=== PATIENT | female | born 1970 | race Caucasian/White ===

== ENCOUNTER 2017-08-02 16:35 | Emergency (ER) | payer MEDICAID, SELFPAY | END 2017-08-02 18:28 | disposition home or self-care (01) | PROVIDERS: Emergency Provider Emergency Medicine; Family Provider Nurse Practitioner Family; Visit Provider Emergency Medicine | DX: J02.9 Acute pharyngitis, unspecified (principal); B34.8 Other viral infections of unspecified site; E11.9 Type 2 diabetes mellitus without complications; Z79.4 Long term (current) use of insulin; I25.10 Atherosclerotic heart disease of native coronary artery without angina pectoris; F17.210 Nicotine dependence, cigarettes, uncomplicated | CPT/HCPCS: 71020; 87070; 87275; 87276; 87430 ==

== ENCOUNTER 2018-05-11 10:58 | Observation (INO) ==
[2018-05-11 11:36] LABS: Basophils % 0.1 % (0.1-2.0); Eosinophils # 0.1 K/mm3 (0.0-0.4); Eosinophils % 0.4 % (0.1-12.0); Hematocrit 40.9 % (37.0-47.0); Hemoglobin 12.9 g/dL (12.2-16.2); Lymphocytes # 1.7 K/mm3 (0.7-4.5); Lymphocytes % 11.8 K/mm3 (10-50); Mean Corpuscular HGB Conc 31.6 g/dL (31.8-35.4); Mean Corpuscular Hemoglobin 28.8 pg (27.0-31.2); Mean Corpuscular Volume 91.1 fl (81-99); Mean Platelet Volume 8.4 fl (7.4-10.4); Monocytes # 0.5 K/mm3 (0.1-1.0); Monocytes % 3.1 % (1.7-9.3); Neutrophils # 12.3 K/mm3 (1.8-7.8); Neutrophils % 84.5 % (37.0-80.0); Platelet Count 324 K/mm3 (142-424); Red Blood Count 4.49 M/mm3 (4.20-5.40); Red Cell Distribution Width 13.5 % (11.5-17.5); White Blood Count 14.5 K/mm3 (4.8-10.8)
[2018-05-11 11:48] LABS: Albumin/Globulin Ratio 0.7 (1.1-1.8); Anion Gap 13.6 mEq/L (5-15); Bilirubin,Total 0.7 mg/dL (0.2-1.0); Globulin 4.2 gm/dl (1.3-3.2); Potassium 3.6 mmoL/L (3.5-5.1); Total Protein,Serum 7.2 gm/dL (6.4-8.2)
--- NOTE | 2018-05-11 11:54 | Emergency Department Note ---
ED Disposition Clinical Impression: Diabetic foot infection Foot ulcer Qualifiers: Laterality: left Non-pressure ulcer stage: with fat layer exposed Qualified Code(s): L97.522 - Non-pressure chronic ulcer of other part of left foot with fat layer exposed Disposition: Admitted as Observation Condition on Discharge: Fair - Critical Care Critical Care Time: No Attestation: On , the high probability of a clinically significant, sudden or life threatening deterioration of the following system(s) required my full and direct attention, intervention and personal management. The time I documented below is in addition to time spent performing reported procedures but includes the following listed in this critical care notation. Medical Decision Making - Mauri Inquiry Pt receiving controlled substance: No Vital Signs: 05/11/18 11:08 05/11/18 11:34 05/11/18 13:58 Temperature 98.2 F 98.2 F Temperature Source Oral Oral Pulse Rate [Right Brachial] 87 87 84 Respiratory Rate 17 17 Blood Pressure [Right Arm] 138/76 138/76 130/77 Blood Pressure Mean [Right Arm] 96 96 94 Blood Pressure Source [Right Arm] Automatic Cuff Automatic Cuff Automatic Cuff Blood Pressure Position [Right Arm] Sitting Sitting Sitting 02 Sat by Pulse Oximetry 99 99 99 Oxygen Delivery Method Room Air Room Air Room Air 05/11/18 15:31 05/11/18 16:00 Temperature 99.5 F Temperature Source Oral Pulse Rate [Right Brachial] 80 100 H Respiratory Rate 18 Blood Pressure [Right Arm] 132/71 116/52 L Blood Pressure Mean [Right Arm] 91 73 Blood Pressure Source [Right Arm] Automatic Cuff Automatic Cuff Blood Pressure Position [Right Arm] Sitting 02 Sat by Pulse Oximetry 99 99 Oxygen Delivery Method Room Air Room Air - Lab Data Lab Results 05/11/18 11:14: WBC 14.5 H, RBC 4.49, Hgb 12.9, Hct 40.9, MCV 91.1, MCH 28.8, MCHC 31.6 L, RDW 13.5, Plt Count 324, MPV 8.4, Neut % (Auto) 84.5 H, Lymph % (Auto) 11.8, [place] % (Auto) 3.1, Eos % (Auto) 0.4, Baso % (Auto) 0.1, Neut # (Auto) 12.3 H, Lymph # (Auto) 1.7, [place] # (Auto) 0.5, Eos # (Auto) 0.1, Baso # (Auto) 0.0 05/11/18 11:14: Sodium 137, Potassium 3.6, Chloride 98, Carbon Dioxide 29, Anion Gap 13.6, BUN 9, Creatinine 1.49 H, Estimated Creat Clear 74, Estimated GFR 38 L , Est GFR ( Amer) 45 L, Glucose 310 H, Calcium 9.0, Total Bilirubin 0.7, AST 8 L, ALT 15, Alkaline Phosphatase 155 H, Total Protein 7.2, Albumin 3.0 L, Globulin 4.2 H, Albumin/Globulin Ratio 0.7 L 05/11/18 11:14: Lactate 3.5 H Result diagrams: 05/11/18 11:14 05/11/18 11:14 Orders (Tests/Meds): ED MEDICATIONS Generic Name Dose Route Start Last Admin Trade Name Freq PRN Reason Stop Dose Admin Acetaminophen 650 mg 05/11/18 15:32 05/11/18 17:57 Acetaminophen 325mg Tab PO 06/10/18 15:31 650 mg Q4HP PRN Administration As Needed for Fever or Pain Piperacillin Sod/Tazobactam 50 mls @ 100 mls/hr 05/11/18 17:00 05/11/18 17:59 Sod 3.375 gm/ Sodium Chloride IV 05/25/18 16:59 100 mls/hr Q6H JASEN Administration Protocol Vancomycin HCl 2,000 mg/ 250 mls @ 125 mls/hr 05/12/18 13:00 Sodium Chloride IV 05/25/18 12:59 Q24H JASEN Insulin Human Lispro 0 unit 05/11/18 16:30 05/11/18 17:33 Humalog 100 Units/Ml 3ml Vial (Ssi) SQ 06/10/18 16:29 10 unit ACHS JASEN Administration Protocol Discontinued Medications Generic Name Dose Route Start Last Admin Trade Name Freq PRN Reason Stop Dose Admin Piperacillin Sod/Tazobactam 100 mls @ 200 mls/hr 05/11/18 12:30 05/11/18 12:53 Sod 3.375 gm/ Sodium Chloride IV 05/25/18 12:29 200 mls/hr Q6H JASEN Administration Protocol Vancomycin HCl 2,000 mg/ 250 mls @ 125 mls/hr 05/11/18 13:00 05/11/18 13:27 Sodium Chloride IV 05/25/18 12:59 125 mls/hr Q24H JASEN Administration Miscellaneous 1 each 05/11/18 12:26 05/11/18 19:55 Vancomycin Consult Request NOTAPPLIC 05/11/18 12:27 Not Given CONSULT PHARMACY ONE Miscellaneous 1 each 05/11/18 15:32 05/11/18 19:55 Vancomycin Consult Request NOTAPPLIC 05/11/18 15:33 Not Given CONSULT PHARMACY ONE ORDERS Category Date Time Status Blood Culture Stat Micro 05/11/18 11:14 Received Wound Culture and Gram Stain Stat Micro 05/11/18 12:00 Ordered - Radiology Data #1 Image(s): Foot/Toes Image Reviewed: Yes I reviewed the patient's radiology image no signs of osteomyelitis. General Adult HPI - General Chief complaint: Skin/Abscess/Foreign Body Stated complaint: left foot pain vomiting fever Time Seen by Provider: 05/11/18 11:53 Mode of Arrival: Ambulatory Limitations: No Limitations Description of Symptoms (Recalled from ER Triage Doc. by RN): DIABETIC ULCER THAT SHE FEELS IS INFECTED. - History of Present Illness HPI narrative: Complains of infected diabetic foot ulcer. She has an ulcer on the bottom of her left foot since March. She saw her primary care provider, Dr. Stern in [place], who referred her to a surgeon. The surgeon and return for referred her to a foot doctor. However, she says all of the foot doctors they referred her to do not take her insurance, so she has had no follow-up. She began having increasing pain in the area on Thursday 3 days ago. She went to [facility] emergency department. She says her blood sugar was over 600. She says she received IV fluids and 10 units of insulin and her blood sugar went down to 366. She was not given antibiotics. She says a culture was not performed on her foot. She says she has never had any antibiotics. On Thursday she began running a fever and fevers have been 101-102. She says when her fever goes up it makes her vomit. Blood sugar yesterday was 400. She did not check her blood sugar today. She also has a scabbed linear crease on the dorsum of her left foot whic h she says was from a bandage that she had on last that became tight from swelling. - Related Data Home Medications Medication Instructions Recorded Confirmed Atorvastatin Calcium [Lipitor 20mg 20 mg PO DAILY 05/11/18 05/11/18 Tablet] Carvedilol [Carvedilol 3.125mg Tab] 0.5 mg PO BID 05/11/18 05/11/18 Cetirizine HCl 1 tab PO DAILY 05/11/18 05/11/18 Clopidogrel Bisulfate [Plavix 75mg 75 mg PO DAILY 05/11/18 05/11/18 Tab] Duloxetine HCl 60 mg PO DAILY 05/11/18 05/11/18 Insulin Glargine,Hum.rec.anlog 10 unit SQ TID 05/11/18 05/11/18 [Basaglar Kwikpen U-100] Insulin Lispro [HumaLOG 100 10 unit SQ TID 05/11/18 05/11/18 units/mL 3mL vial (SSI)] Losartan Potassium 12.5 mg PO BID 05/11/18 05/11/18 Omeprazole [Omeprazole 40mg 40 mg PO DAILY 05/11/18 05/11/18 Capsule] Propranolol HCl [Inderal 20mg 20 mg PO BID 05/11/18 05/11/18 tablet] Topiramate 1 tab PO DAILY 05/11/18 05/11/18 Venlafaxine HCl [Effexor XR 75mg 75 mg PO DAILY 05/11/18 05/11/18 capsule] Allergies Allergy/AdvReac Type Severity Reaction Status Date / Time Sulfa (Sulfonamide Allergy Unknown Verified 05/11/18 11:36 Antibiotics) [SULFA (SULFONAMIDE ANTIBIOTICS)] [facility] History I have reviewed the patient's past medical history: Yes - Social History Educational Level: Completed High School Smoking Status: Current every day smoker Tobacco Type: cigarettes Alcohol Intake: never - Psychiatric History Expresses thoughts of harming self/others: None Suicide Plan Description: No Plan ROS Obtained: Yes All systems reviewed & no additional complaints - Constitutional Constitutional: Reports fever(s) - Gastrointestinal Gastrointestingal: Reports: vomiting - Musculoskeletal Musculoskeletal: Reports as per HPI Physical Exam - General General appearance: alert, in no apparent distress - Head Head exam: atraumatic, normocephalic - Eye Eye exam: Present: normal appearance - ENT ENT exam: Present: mucous membranes moist - Neck Neck exam: Present: normal inspection, full ROM - Chest Chest inspection: Present: normal inspection - Respiratory Respiratory exam: Absent: respiratory distress - Cardiovascular Cardiovascular exam: Present: regular rate - Expanded Lower Extremity Exam Left Comment: 3 x 2 cm foot ulcer on the plantar aspect of her left foot over the area of the fourth metatarsal head. Extends down into subcutaneous tissue. No odor or drainage noted. There is erythema of the dorsum of the foot with edema, warmth, tenderness. There is a linear scab on the dorsal/lateral surface of the foot consistent with indentation from bandage. - Neurological Exam Neurological exam: Present: alert, oriented X3. Absent: motor sensory deficit - Psychiatric Psychiatric exam: Present: normal affect, normal mood
--- NOTE | 2018-05-11 16:06 | Pharmacy Consult Notes ---
- Pharmacy Consult Date: 05/11/18 Time: 16:03 Referring provider: DR. LEW Reason for Consult:: VANCOMYCIN DOSING Allergies and ADEs:: Allergies Allergy/AdvReac Type Severity Reaction Status Date / Time Sulfa (Sulfonamide Allergy Unknown Verified 05/11/18 11:36 Antibiotics) [SULFA (SULFONAMIDE ANTIBIOTICS)] Home Medications:: Home Medications Medication Instructions Recorded Confirmed Type Atorvastatin Calcium [Lipitor 20mg 20 mg PO DAILY 05/11/18 05/11/18 History Tablet] Carvedilol [Carvedilol 3.125mg Tab] 0.5 mg PO BID 05/11/18 05/11/18 History Cetirizine HCl 1 tab PO DAILY 05/11/18 05/11/18 History Clopidogrel Bisulfate [Plavix 75mg 75 mg PO DAILY 05/11/18 05/11/18 History Tab] Duloxetine HCl 60 mg PO DAILY 05/11/18 05/11/18 History Insulin Glargine,Hum.rec.anlog 10 unit SQ TID 05/11/18 05/11/18 History [Basaglar Kwikpen U-100] Insulin Lispro [HumaLOG 100 10 unit SQ TID 05/11/18 05/11/18 History units/mL 3mL vial (SSI)] Losartan Potassium 12.5 mg PO BID 05/11/18 05/11/18 History Omeprazole [Omeprazole 40mg 40 mg PO DAILY 05/11/18 05/11/18 History Capsule] Propranolol HCl [Inderal 20mg 20 mg PO BID 05/11/18 05/11/18 History tablet] Topiramate 1 tab PO DAILY 05/11/18 05/11/18 History Venlafaxine HCl [Effexor XR 75mg 75 mg PO DAILY 05/11/18 05/11/18 History capsule] Height: 1.68 m Weight: 100.244 kg Laboratory Results:: Laboratory Results - last 24 hr 05/11/18 11:14: WBC 14.5 H, RBC 4.49, Hgb 12.9, Hct 40.9, MCV 91.1, MCH 28.8, MCHC 31.6 L, RDW 13.5, Plt Count 324, MPV 8.4, Neut % (Auto) 84.5 H, Lymph % (Auto) 11.8, [place] % (Auto) 3.1, Eos % (Auto) 0.4, Baso % (Auto) 0.1, Neut # (Auto) 12.3 H, Lymph # (Auto) 1.7, [place] # (Auto) 0.5, Eos # (Auto) 0.1, Baso # (Auto) 0.0 05/11/18 11:14: Sodium 137, Potassium 3.6, Chloride 98, Carbon Dioxide 29, Anion Gap 13.6, BUN 9, Creatinine 1.49 H, Estimated Creat Clear 74, Estimated GFR 38 L , Est GFR ( Amer) 45 L, Glucose 310 H, Calcium 9.0, Total Bilirubin 0.7, AST 8 L, ALT 15, Alkaline Phosphatase 155 H, Total Protein 7.2, Albumin 3.0 L, Globulin 4.2 H, Albumin/Globulin Ratio 0.7 L 05/11/18 11:14: Lactate 3.5 H Assessment and Plan - Assessment and plan all Dx Assessment and Plan for all problems:: BASED ON PATIENT'S FACTORS, RECOMMEND STARTING WITH VANCOMYCIN 2 GM Q24H AT THIS TIME. PHARMACY WILL FOLLOW DAILY AND ADJUST APPROPRIATE. FRANCY JUÁREZ, PHARMD
--- NOTE | 2018-05-12 12:41 | History & Physical Report ---
*Admission Date: 05/11/18 *Chief complaint: infected foot *History of present illness: this wf who is known diabetic and has progressive swelling and reddness to lt foot - pt was seen in the ed - mplains of infected diabetic foot ulcer. She has an ulcer on the bottom of her left foot since March. She saw her primary care provider, Dr. Stern in [place], who referred her to a surgeon. The surgeon and return for referred her to a foot doctor. However, she says all of the foot doctors they referred her to do not take her insurance, so she has had no follow-up. She began having increasing pain in the area on Thursday 3 days ago. She went to [facility] emergency department. She says her blood sugar was over 600. She says she received IV fluids and 10 units of insulin and her blood sugar went down to 366. She was not given antibiotics. She says a culture was not performed on her foot. She says she has never had any antibiotics. On Thursday she began running a fever and fevers have been 101-102. She says when her fever goes up it makes her vomit. Blood sugar yesterday was 400. She did not check her blood sugar today. She also has a scabbed linear crease on the dorsum of her left foot which she says was from a bandage that she had on last that became tight from swelling. pt has been seen by pcp and another ed and was admitted for iv abx and treatment as op treatment had failed [facility] History I have reviewed the patient's past medical history: Yes Medical History: Reports:: Diabetes Mellitus Type 2, Hypertension Denies:: Cancer, Diabetes Mellitus Type 1, Internal Pacemaker, MRSA Other Surgeries: Yes: Cardiac Catheterization. No: Pacemaker Amputation: Yes - *Social History Educational Level: Completed High School Smoking Status: Current every day smoker Tobacco Type: cigarettes Alcohol Intake: never Occupational Status: disabled Housing: house Household Members: friend(s) - Psychiatric History Expresses thoughts of harming self/others: None Suicide Plan Description: No Plan Review of Systems - Review of Systems Review of systems:: pertinent systems reviewed and negative unless documented below - Constitutional Denies fever(s) - Eyes Denies change in vision - ENT Denies sore throat - *Cardiovascular Denies chest pain at rest - *Respiratory Denies cough - *Gastrointestinal Denies abdominal pain - *Genitourinary Denies blood in urine - *Musculoskeletal Reports joint pain, Reports limited joint movement - Integumentary/Breasts Reports other (reddness and infection lt foot ) - *Neurologic Denies seizure-like activity Meds Home Medications Medication Instructions Recorded Confirmed Type Carvedilol [Carvedilol 3.125mg Tab] 1.5625 mg PO BID 05/11/18 05/12/18 History Cetirizine HCl 10 mg PO DAILY 05/11/18 05/12/18 History Clopidogrel Bisulfate [Plavix 75mg 75 mg PO DAILY 05/11/18 05/11/18 History Tab] Duloxetine HCl 60 mg PO DAILY 05/11/18 05/11/18 History Insulin Glargine,Hum.rec.anlog 10 unit SQ TID 05/11/18 05/11/18 History [Basaglar Kwikpen U-100] Insulin Lispro [HumaLOG 100 10 unit SQ TID 05/11/18 05/11/18 History units/mL 3mL vial (SSI)] Losartan Potassium 37.5 mg PO DAILY 05/11/18 05/12/18 History Omeprazole [Omeprazole 40mg 40 mg PO DAILY 05/11/18 05/11/18 History Capsule] Topiramate 100 tab PO DAILY 05/11/18 05/12/18 History Venlafaxine HCl [Effexor XR 75mg 75 mg PO DAILY 05/11/18 05/11/18 History capsule] Atorvastatin Calcium [Atorvastatin 40 mg PO DAILY 05/12/18 05/12/18 History 40mg Tab] Isosorbide Mononitrate [Imdur 30mg 30 mg PO DAILY 05/12/18 05/12/18 History ER tablet] Propranolol HCl 80 mg PO BID 05/12/18 05/12/18 History SUMAtriptan succinate [Imitrex] 50 mg PO DIRECTED PRN 05/12/18 05/12/18 Histo ry Allergies Allergy/AdvReac Type Severity Reaction Status Date / Time Sulfa (Sulfonamide Allergy Unknown Verified 05/11/18 11:36 Antibiotics) [SULFA (SULFONAMIDE ANTIBIOTICS)] Exam Vital signs and Labs for Last 24 Hours: Temp Pulse Resp BP Pulse Ox 97.9 F 95 H 18 129/70 99 05/12/18 07:27 05/12/18 07:27 05/12/18 07:27 05/12/18 07:27 05/12/18 08:25 Laboratory Results - last 24 hr 05/11/18 15:45: Lactate 2.3 H 05/11/18 17:13: POC Glucose 312 H* 05/11/18 18:01: Lactate 3.3 H 05/11/18 19:59: POC Glucose 265 H 05/12/18 06:19: POC Glucose 430 H* 05/12/18 11:05: POC Glucose 419 H* I & O for Last 24 hours: Intake & Output 05/10/18 05/11/18 05/12/18 05/13/18 11:59 11:59 11:59 11:59 Intake Total 1290 / 1290 Balance 1290 / 1290 Weight 221 lb 221 lb Microbiology Reports for the Last 24 Hours: Microbiology 05/11/18 12:00 Foot,Left - Wound Gram Stain - Final 05/11/18 12:00 Foot,Left - Wound Wound Culture - Preliminary Gram Negative Rods Gram Positive Cocci - Constitutional no acute distress, obese - *Routine HEENT Exam Head: Present: normocephalic Eye: Present: EOMI, PERRL ENT: Present: mucous membranes dry - *Routine Neck Exam Present: supple - *Routine Respiratory Exam Present: CTA bilaterally - *Routine Cardiovascular Exam Present: RRR, murmur, S4 - *Routine Abdominal Exam Present: soft - *Routine Extremities Exam Absent: calf tenderness Comments: lt foot with chronic ulcer on plantar area and has reddness and swelling dorsum lt foot with sl odor and gangerous changes lt 4 th toe with dec sensation but gross vascular ok - *Routine Skin Exam Comments: changes lt foot as noted - *Routine Neurological Exam Present: alert, oriented X3, CN II-XII intact, sensory deficit - Routine Psychiatric Exam Present: normal affect
[2018-05-12 13:39] LABS: Basophils % 0.1 % (0.1-2.0); Eosinophils # 0.1 K/mm3 (0.0-0.4); Eosinophils % 0.7 % (0.1-12.0); Hematocrit 37.9 % (37.0-47.0); Hemoglobin 11.8 g/dL (12.2-16.2); Lymphocytes # 1.1 K/mm3 (0.7-4.5); Lymphocytes % 11.9 K/mm3 (10-50); Mean Corpuscular Volume 90.4 fl (81-99); Monocytes # 0.4 K/mm3 (0.1-1.0); Monocytes % 4.4 % (1.7-9.3); Neutrophils # 7.8 K/mm3 (1.8-7.8); Neutrophils % 82.9 % (37.0-80.0); Platelet Count 296 K/mm3 (142-424); Red Blood Count 4.19 M/mm3 (4.20-5.40); Red Cell Distribution Width 13.3 % (11.5-17.5); White Blood Count 9.4 K/mm3 (4.8-10.8)
[2018-05-12 13:44] LABS: Anion Gap 9.8 mEq/L (5-15); Calcium 8.1 mg/dL (8.5-10.1); Potassium 3.8 mmoL/L (3.5-5.1)
--- NOTE | 2018-05-12 13:45 | Pharmacy Consult Notes ---
[facility] Pharmacy VTE Monitoring - Patient Demographics Admission date: 05/11/18 Report Date: 05/12/18 Time: 13:45 Allergies/Adverse Reactions: Patient Allergies Sulfa (Sulfonamide Antibiotics) [SULFA (SULFONAMIDE ANTIBIOTICS)] Allergy (Unknown, Verified 05/11/18 11:36) Height: 1.68 m Weight: 100.244 kg Patient Problems: Current Active Problems Foot ulcer (Acute) Diabetic foot infection (Acute) - VTE Risk Labs: VTE Related Lab Results Hgb 11.8 g/dL (12.2-16.2) L 05/12/18 13:17 Hct 37.9 % (37.0-47.0) 05/12/18 13:17 Plt Count 296 K/mm3 (142-424) 05/12/18 13:17 BUN 9 mg/dL (7-18) 05/11/18 11:14 Creatinine 1.49 mg/dL (0.55-1.02) H 05/11/18 11:14 Estimated Creat Clear 74 mL/min (0-300) 05/11/18 11:14 Was VTE Risk Assessment Performed: Yes VTE Score: 2 VTE Risk Level: Very Low Risk - Prophylaxis VTE Prophylaxis Ordered?: Yes Types of VTE Prophylaxis: TEDS Knee High Location of Applied Device: Bilateral Lower Extremeties - VTE Diagnosis Confirmed Treatment or plan recommended: Continue Current Treatment
[2018-05-12 13:55] LABS: C-Reactive Protein 30.6 mg/L (0.0-0.9)
[2018-05-12 14:21] LABS: Erythrocyte Sedimentation Rate 113 mm/hr (0-20)
--- NOTE | 2018-05-12 17:55 | Consult Report ---
*Admission Date: 05/11/18 *Chief complaint: Diabetic foot ulcer, left foot; gangrene fourth toe, left foot [facility] History Medical History: Reports:: Diabetes Mellitus Type 2, Hypertension Denies:: Cancer, Diabetes Mellitus Type 1, Internal Pacemaker, MRSA Other Surgeries: Yes: Cardiac Catheterization. No: Pacemaker Amputation: Yes - *Social History Educational Level: Completed High School Smoking Status: Current every day smoker Tobacco Type: cigarettes Alcohol Intake: never Occupational Status: disabled Housing: house Household Members: friend(s) - Psychiatric History Expresses thoughts of harming self/others: None Suicide Plan Description: No Plan Meds Home Medications Medication Instructions Recorded Confirmed Type Carvedilol [Carvedilol 3.125mg Tab] 1.5625 mg PO BID 05/11/18 05/12/18 History Cetirizine HCl 10 mg PO DAILY 05/11/18 05/12/18 History Clopidogrel Bisulfate [Plavix 75mg 75 mg PO DAILY 05/11/18 05/11/18 History Tab] Duloxetine HCl 60 mg PO DAILY 05/11/18 05/11/18 History Insulin Glargine,Hum.rec.anlog 10 unit SQ TID 05/11/18 05/11/18 History [Basaglar Kwikpen U-100] Insulin Lispro [HumaLOG 100 10 unit SQ TID 05/11/18 05/11/18 History units/mL 3mL vial (SSI)] Losartan Potassium 37.5 mg PO DAILY 05/11/18 05/12/18 History Omeprazole [Omeprazole 40mg 40 mg PO DAILY 05/11/18 05/11/18 History Capsule] Topiramate 100 tab PO DAILY 05/11/18 05/12/18 History Venlafaxine HCl [Effexor XR 75mg 75 mg PO DAILY 05/11/18 05/11/18 History capsule] Atorvastatin Calcium [Atorvastatin 40 mg PO DAILY 05/12/18 05/12/18 History 40mg Tab] Isosorbide Mononitrate [Imdur 30mg 30 mg PO DAILY 05/12/18 05/12/18 History ER tablet] Propranolol HCl 80 mg PO BID 05/12/18 05/12/18 History SUMAtriptan succinate [Imitrex] 50 mg PO DIRECTED PRN 05/12/18 05/12/18 Hi story Allergies Allergy/AdvReac Type Severity Reaction Status Date / Time Sulfa (Sulfonamide Allergy Unknown Verified 05/11/18 11:36 Antibiotics) [SULFA (SULFONAMIDE ANTIBIOTICS)] Exam Vital signs and Labs for Last 24 Hours: Temp Pulse Resp BP Pulse Ox 99.8 F H 101 H 18 134/61 97 05/12/18 15:19 05/12/18 15:19 05/12/18 15:19 05/12/18 15:19 05/12/18 15:19 Laboratory Results - last 24 hr 05/11/18 18:01: Lactate 3.3 H 05/11/18 19:59: POC Glucose 265 H 05/12/18 06:19: POC Glucose 430 H* 05/12/18 11:05: POC Glucose 419 H* 05/12/18 13:17: WBC 9.4 D, RBC 4.19 L, Hgb 11.8 L, Hct 37.9, MCV 90.4, MCH 28.0 , MCHC 31.0 L, RDW 13.3, Plt Count 296, MPV 8.0, Neut % (Auto) 82.9 H, Lymph % (Auto) 11.9, [place] % (Auto) 4.4, Eos % (Auto) 0.7, Baso % (Auto) 0.1, Neut # (Auto) 7.8, Lymph # (Auto) 1.1, [place] # (Auto) 0.4, Eos # (Auto) 0.1, Baso # (Auto) 0.0, ESR 113 H 05/12/18 13:17: Sodium 133 L, Potassium 3.8, Chloride 98, Carbon Dioxide 29, Anion Gap 9.8, BUN 16 D, Creatinine 1.44 H, Estimated Creat Clear 76, Estimated GFR 39 L, Est GFR ( Amer) 47 L, Glucose 415 H*, Calcium 8.1 L, C-Reactive Protein 30.6 H I & O for Last 24 hours: Intake & Output 05/10/18 05/11/18 05/12/18 05/13/18 11:59 11:59 11:59 11:59 Intake Total 1290 / 1290 360 / 360 Balance 1290 / 1290 360 / 360 Weight 221 lb 221 lb 221 lb 0.003 oz Microbiology Reports for the Last 24 Hours: Microbiology 05/11/18 12:00 Foot,Left - Wound Gram Stain - Final 05/11/18 12:00 Foot,Left - Wound Wound Culture - Preliminary Gram Negative Rods Gram Positive Cocci Narrative: T-max 100.5 F over the last 24 hours Results - Labs Result Diagrams: 05/12/18 13:17 05/12/18 13:17 Labs: Abnormal lab results 05/11/18 05/11/18 05/12/18 Range/Units 18:01 19:59 06:19 RBC (4.20-5.40) M/mm3 Hgb (12.2-16.2) g/dL MCHC (31.8-35.4) g/dL Neut % (Auto) (37.0-80.0) % ESR (0-20) mm/hr Sodium (136-145) mmol/L Creatinine (0.55-1.02) mg/dL Estimated GFR (>60) ml/min Est GFR ( Amer) (>60) ML/MIN Glucose (74-106) mg/dL POC Glucose 265 H 430 H* (70-110) Lactate 3.3 H (0.4-2.0) Calcium (8.5-10.1) mg/dL C-Reactive Protein (0.0-0.9) mg/L 05/12/18 05/12/18 05/12/18 Range/Units 11:05 13:17 13:17 RBC 4.19 L (4.20-5.40) M/mm3 Hgb 11.8 L (12.2-16.2) g/dL MCHC 31.0 L (31.8-35.4) g/dL Neut % (Auto) 82.9 H (37.0-80.0) % ESR 113 H (0-20) mm/hr Sodium 133 L (136-145) mmol/L Creatinine 1.44 H (0.55-1.02) mg/dL Estimated GFR 39 L (>60) ml/min Est GFR ( Amer) 47 L (>60) ML/MIN Glucose 415 H* (74-106) mg/dL POC Glucose 419 H* (70-110) Lactate (0.4-2.0) Calcium 8.1 L (8.5-10.1) mg/dL C-Reactive Protein 30.6 H (0.0-0.9) mg/L H & H 05/11/18 05/12/18 Range/Units 11:14 13:17 Hgb 12.9 11.8 L (12.2-16.2) g/dL Hct 40.9 37.9 (37.0-47.0) % All other labs normal. Assessment and Plan (1) Diabetic foot infection Current visit: Yes Status: Acute Category: Medical Code(s): E11.628 - Type 2 diabetes mellitus with other skin complications; L08.9 - Local infection of the skin and subcutaneous tissue, unspecified (2) Foot ulcer Current visit: Yes Status: Acute Qualifiers: Laterality: left Non-pressure ulcer stage: with fat layer exposed Qualified Code(s): L97.522 - Non-pressure chronic ulcer of other part of left foot with fat layer exposed Category: Medical Code(s): L97.509 - Non-pressure chronic ulcer of other part of unspecified foot with unspecified severity - Assessment and plan all Dx Assessment and Plan for all problems:: Recommend consultation with Dr. Shipley if she is available for consultation regarding further management If she is not available for consultation, recommend referral to foot and ankle services in [place] for further management In my opinion, the patient may need more proximal amputation than a simple toe amputation. I do not perform any forefoot or midfoot amputations. Continue antibiotics as patient seems to be responding clinically with white cell count trending down Repeat CBC, ESR and CRP Smoking cessation Better diabetic control Obtain MRI images and copy of MRI report from [facility]
--- NOTE | 2018-05-13 08:47 | Progress Note ---
Internal Medicine - PN: Subj *Date: 05/13/18 *Time: 08:46 Exam Vital signs and Labs for Last 24 Hours: Temp Pulse Resp BP Pulse Ox 98.1 F 85 18 134/73 95 05/13/18 07:55 05/13/18 07:55 05/13/18 07:55 05/13/18 07:55 05/13/18 07:55 Laboratory Results - last 24 hr 05/12/18 11:05: POC Glucose 419 H* 05/12/18 13:17: WBC 9.4 D, RBC 4.19 L, Hgb 11.8 L, Hct 37.9, MCV 90.4, MCH 28.0, MCHC 31.0 L, RDW 13.3, Plt Count 296, MPV 8.0, Neut % (Auto) 82.9 H, Lymph % (Auto) 11.9, Cooper % (Auto) 4.4, Eos % (Auto) 0.7, Baso % (Auto) 0.1, Neut # (Auto) 7.8, Lymph # (Auto) 1.1, Cooper # (Auto) 0.4, Eos # (Auto) 0.1, Baso # (Auto) 0.0, ESR 113 H 05/12/18 13:17: Sodium 133 L, Potassium 3.8, Chloride 98, Carbon Dioxide 29, Anion Gap 9.8, BUN 16 D, Creatinine 1.44 H, Estimated Creat Clear 76, Estimated GFR 39 L, Est GFR ( Amer) 47 L, Glucose 415 H*, Calcium 8.1 L, C-Reactive Protein 30.6 H 05/12/18 17:11: POC Glucose 415 H* 05/12/18 20:02: POC Glucose 359 H* 05/13/18 06:07: POC Glucose 328 H* I & O for Last 24 hours: Intake & Output 05/10/18 05/11/18 05/12/18 05/13/18 23:59 23:59 23:59 23:59 Intake Total 710 / 710 1300 / 1300 240 / 240 Balance 710 / 710 1300 / 1300 240 / 240 Weight 100.244 kg 100.244 kg Microbiology Reports for the Last 24 Hours: Microbiology 05/11/18 12:00 Foot,Left - Wound Gram Stain - Final 05/11/18 12:00 Foot,Left - Wound Wound Culture - Preliminary Morganella morganii ssp addie Gram Positive Cocci Assessment and Plan (1) Diabetic foot infection Current visit: Yes Status: Acute Category: Medical Code(s): E11.628 - Type 2 diabetes mellitus with other skin complications; L08.9 - Local infection of the skin and subcutaneous tissue, unspecified (2) Foot ulcer Current visit: Yes Status: Acute Qualifiers: Laterality: left Non-pressure ulcer stage: with fat layer exposed Qualified Code(s): L97.522 - Non-pressure chronic ulcer of other part of left foot with fat layer exposed Category: Medical Code(s): L97.509 - Non-pressure chronic ulcer of other part of unspecified foot with unspecified severity The patient's infection will respond to the chosen ABx?: Yes Is the patient receiving the right drug, dose, and route?: Yes Could a more targeted ABx be ordered?: No
--- NOTE | 2018-05-13 09:58 | Consult Report ---
*Admission Date: 05/11/18 *Chief complaint: Left foot cellulitis, osteomyelitis *History of present illness: Ms. Burkett is a 48 DM female who was admitted 05/11/18 for diabetic ulcer and left foot infection. Patient states he also has been present since March. She saw her primary care provider, Dr. Stern in [place], who referred her to a surgeon, Dr Rodriguez. The general surgeon referred her to a foot doctor. However, she says all of the foot doctors they referred her to do not take her insurance, so she has had no follow-up. She began having increasing pain in the area on Thursday. She went to [facility] emergency department. She says her blood sugar was over 600. She says she received IV fluids and 10 units of insulin and her blood sugar went down to 366. She was not given antibiotics. She says a culture was not performed on her foot. She says she has never had any antibiotics. On Thursday she began running a fever and fevers have been 101-102. She says when her fever goes up it makes her vomit. Patient has a history of right foot amputation with ulceration. She states in 2016 he had a diabetic ulcer and then developed cellulitis in the right second toe, which was removed. She had a PICC after surgery. She denies history of lower extremity revascularization. She states she has had diabetic shoes in the past but needs new ones. She is concerned with her postop management due to her living situation. Review of Systems - Review of Systems Review of systems:: pertinent systems reviewed and negative unless documented below - Constitutional Reports chills, Reports fatigue, Denies increased appetite - Eyes Denies change in vision - *Cardiovascular Denies chest pain, Denies shortness of breath - *Respiratory Denies shortness of breath - *Gastrointestinal Reports nausea, Reports vomiting - *Genitourinary Denies abnormal vaginal bleeding - *Musculoskeletal Reports joint swelling, Reports body aches - Integumentary/Breasts Reports dry skin, Reports rash, Reports skin ulcer - *Neurologic Reports burning sensations, Reports tingling/numbness/burning sensations - Psychiatric Reports anxiety - Endocrine Reports cold intolerance [facility] History Medical History: Reports:: Diabetes Mellitus Type 2, Hypertension Denies:: Cancer, Diabetes Mellitus Type 1, Internal Pacemaker, MRSA Other Surgeries: Yes: Cardiac Catheterization. No: Pacemaker Amputation: Yes - *Social History Educational Level: Completed High School Smoking Status: Current every day smoker Tobacco Type: cigarettes Alcohol Intake: never Occupational Status: disabled Housing: house Household Members: friend(s) - Psychiatric History Expresses thoughts of harming self/others: None Suicide Plan Description: No Plan Meds Home Medications Medication Instructions Recorded Confirmed Type Carvedilol [Carvedilol 3.125mg Tab] 1.5625 mg PO BID 05/11/18 05/12/18 History Cetirizine HCl 10 mg PO DAILY 05/11/18 05/12/18 History Clopidogrel Bisulfate [Plavix 75mg 75 mg PO DAILY 05/11/18 05/11/18 History Tab] Duloxetine HCl 60 mg PO DAILY 05/11/18 05/11/18 History Insulin Glargine,Hum.rec.anlog 10 unit SQ TID 05/11/18 05/11/18 History [Basaglar Kwikpen U-100] Insulin Lispro [HumaLOG 100 10 unit SQ TID 05/11/18 05/11/18 History units/mL 3mL vial (SSI)] Losartan Potassium 37.5 mg PO DAILY 05/11/18 05/12/18 History Omeprazole [Omeprazole 40mg 40 mg PO DAILY 05/11/18 05/11/18 History Capsule] Topiramate 100 tab PO DAILY 05/11/18 05/12/18 History Venlafaxine HCl [Effexor XR 75mg 75 mg PO DAILY 05/11/18 05/11/18 History capsule] Atorvastatin Calcium [Atorvastatin 40 mg PO DAILY 05/12/18 05/12/18 History 40mg Tab] Isosorbide Mononitrate [Imdur 30mg 30 mg PO DAILY 05/12/18 05/12/18 History ER tablet] Propranolol HCl 80 mg PO BID 05/12/18 05/12/18 History SUMAtriptan succinate [Imitrex] 50 mg PO DIRECTED PRN 05/12/18 05/12/18 History Allergies Allergy/AdvReac Type Severity Reaction Status Date / Time Sulfa (Sulfonamide Allergy Unknown Verified 05/11/18 11:36 Antibiotics) [SULFA (SULFONAMIDE ANTIBIOTICS)] Exam Vital signs and Labs for Last 24 Hours: Temp Pulse Resp BP Pulse Ox 98.1 F 85 18 134/73 95 05/13/18 07:55 05/13/18 07:55 05/13/18 07:55 05/13/18 07:55 05/13/18 07:55 Laboratory Results - last 24 hr 05/12/18 11:05: POC Glucose 419 H* 05/12/18 13:17: WBC 9.4 D, RBC 4.19 L, Hgb 11.8 L, Hct 37.9, MCV 90.4, MCH 28.0, MCHC 31.0 L, RDW 13.3, Plt Count 296, MPV 8.0, Neut % (Auto) 82.9 H, Lymph % (Auto) 11.9, [place] % (Auto) 4.4, Eos % (Auto) 0.7, Baso % (Auto) 0.1, Neut # (Auto) 7.8, Lymph # (Auto) 1.1, [place] # (Auto) 0.4, Eos # (Auto) 0.1, Baso # (Auto) 0.0, ESR 113 H 05/12/18 13:17: Sodium 133 L, Potassium 3.8, Chloride 98, Carbon Dioxide 29, Anion Gap 9.8, BUN 16 D, Creatinine 1.44 H, Estimated Creat Clear 76, Estimated GFR 39 L, Est GFR ( Amer) 47 L, Glucose 415 H*, Calcium 8.1 L, C-Reactive Protein 30.6 H 05/12/18 17:11: POC Glucose 415 H* 05/12/18 20:02: POC Glucose 359 H* 05/13/18 06:07: POC Glucose 328 H* I & O for Last 24 hours: Intake & Output 05/10/18 05/11/18 05/12/18 05/13/18 11:59 11:59 11:59 11:59 Intake Total 1290 / 1290 960 / 960 Balance 1290 / 1290 960 / 960 Weight 221 lb 221 lb 221 lb 0.003 oz Microbiology Reports for the Last 24 Hours: Microbiology 05/11/18 12:00 Foot,Left - Wound Gram Stain - Final 05/11/18 12:00 Foot,Left - Wound Wound Culture - Preliminary Morganella morganii ssp addie Gram Positive Cocci - *Routine HEENT Exam Head: Present: normocephalic - *Routine Neck Exam Present: full ROM - *Routine Respiratory Exam Absent: respiratory distress - *Routine Cardiovascular Exam Present: RRR - *Routine Abdominal Exam Present: soft. Absent: guarding - *Routine Rectal Exam Patient deferred: visual exam - *Routine Exam Patient deferred: external exam - *Routine Extremities Exam Present: edema, pulses intact, tenderness, amputation. Absent: cyanosis, pallor - *Routine Skin Exam Present: erythema, dry, lesions, scars, wounds, gangrene (left 4th toe) - *Routine Neurological Exam Present: alert, oriented X3, sensory deficit, normal reflexes - Detailed Lower Extremity Exam Foot/Toes: Right amputation (R 2nd toe) Comments: Palpable pedal pulses noted bilaterally. Capillary fill time within normal limits. Decreased light touch sensation. No calf or thigh pain noted bilaterally. Muscle strength within normal limits. Well-healed scar noted to the right second toe from previous amputation. Callus noted to the sub-right fourth metatarsal. Ulcer noted to the left sub-fourth metatarsal region. Ulcer measures approximately 2.5 x 3.2 cm and does probe deeply to at least the capsule over the bone. Purulent drainage with malodor noted. Pain to palpation noted. The left fourth toe has odor and has purplish discoloration with active purulent drainage. Edema and erythema noted extending from the fourth toe to the left midfoot. Nonpalpable lymph nodes. Results - Labs Result Diagrams: 05/12/18 13:17 05/12/18 13:17 Labs: Abnormal lab results 05/12/18 05/12/18 05/12/18 Range/Units 11:05 13:17 13:17 RBC 4.19 L (4.20-5.40) M/mm3 Hgb 11.8 L (12.2-16.2) g/dL MCHC 31.0 L (31.8-35.4) g/dL Neut % (Auto) 82.9 H (37.0-80.0) % ESR 113 H (0-20) mm/hr Sodium 133 L (136-145) mmol/L Creatinine 1.44 H (0.55-1.02) mg/dL Estimated GFR 39 L (>60) ml/min Est GFR ( Amer) 47 L (>60) ML/MIN Glucose 415 H* (74-106) mg/dL POC Glucose 419 H* (70-110) Calcium 8.1 L (8.5-10.1) mg/dL C-Reactive Protein 30.6 H (0.0-0.9) mg/L 05/12/18 05/12/18 05/13/18 Range/Units 17:11 20:02 06:07 RBC (4.20-5.40) M/mm3 Hgb (12.2-16.2) g/dL MCHC (31.8-35.4) g/dL Neut % (Auto) (37.0-80.0) % ESR (0-20) mm/hr Sodium (136-145) mmol/L Creatinine (0.55-1.02) mg/dL Estimated GFR (>60) ml/min Est GFR ( Amer) (>60) ML/MIN Glucose (74-106) mg/dL POC Glucose 415 H* 359 H* 328 H* (70-110) Calcium (8.5-10.1) mg/dL C-Reactive Protein (0.0-0.9) mg/L H & H 05/11/18 05/12/18 Range/Units 11:14 13:17 Hgb 12.9 11.8 L (12.2-16.2) g/dL Hct 40.9 37.9 (37.0-47.0) % All other labs normal. Assessment and Plan (1) Diabetic foot infection Current visit: Yes Status: Acute Category: Medical Code(s): E11.628 - Type 2 diabetes mellitus with other skin complications; L08.9 - Local infection of the skin and subcutaneous tissue, unspecified (2) Foot ulcer Current visit: Yes Status: Acute Qualifiers: Laterality: left Non-pressure ulcer stage: with fat layer exposed Q ualified Code(s): L97.522 - Non-pressure chronic ulcer of other part of left foot with fat layer exposed Category: Medical Code(s): L97.509 - Non-pressure chronic ulcer of other part of unspecified foot with unspecified severity (3) Osteomyelitis of foot, left, acute Current visit: Yes Status: Acute Category: Medical Code(s): M86.172 - Other acute osteomyelitis, left ankle and foot (4) Gas gangrene of foot Current visit: Yes Status: Acute Category: Medical Code(s): A48.0 - Gas gangrene - Assessment and plan all Dx Assessment and Plan for all problems:: Left foot cellulitis, 4th toe osteomyelitis, gas gangrene, DM ulcer: Discussed plan of care with Dr. Bynum. At his request I reviewed the patient's medical record, scans and did a consult on the patient. I do agree the patient needs more than a fourth toe amputation. Due to the extensive cellulitis, gas infection and likely involvement of the fourth metatarsal head, patient would benefit from a partial fourth ray amputation with possible transmetatarsal amputation. Patient verbalized understand of the disease process. Patient agrees with and is to follow the treatment plan. Education provided. Patient understands that she will be transferred to for further management and for amputation. 1. Discussed with Dr Bynum: transfer to for amputation and mgmt 2. Continue antibiotics 3. Repeat CBC, ESR and CRP 4. Smoking cessation 5. Diabetic control and education 6. Obtain MRI images and copy of MRI report from [facility]: still pending
--- NOTE | 2018-05-13 10:05 | Discharge Summary ---
General - General Admission date:: 05/11/18 Discharge date: 05/13/18 HPI HPI: this wf who is known diabetic and has progressive swelling and reddness to lt foot - pt was seen in the ed - mplains of infected diabetic foot ulcer. She has an ulcer on the bottom of her left foot since March. She saw her primary care provider, Dr. Stern in [place], who referred her to a surgeon. The surgeon and return for referred her to a foot doctor. However, she says all of the foot doctors they referred her to do not take her insurance, so she has had no follow-up. She began having increasing pain in the area on Thursday 3 days ago. She went to [facility] emergency department. She says her blood sugar was over 600. She says she received IV fluids and 10 units of insulin and her blood sugar went down to 366. She was not given antibiotics. She says a culture was not performed on her foot. She says she has never had any antibiotics. On Thursday she began running a fever and fevers have been 101-102. She says when her fever goes up it makes her vomit. Blood sugar yesterday was 400. She did not check her blood sugar today. She also has a scabbed linear crease on the dorsum of her left foot which she says was from a bandage that she had on last that became tight from swelling. pt has been seen by pcp and another ed and was admitted for iv abx and treatment as op treatment had failed Hospital Course Hospital Course: pt was admitted and started on ivf and sliding scale and iv abx with concern for diabetic foot with prod osteomyelitis which was confirmed by ct - she has did ok but there has been some noted spread of the infection despite abx - she was seen by ortho-commend consultation with Dr. Shipley if she is available for consultation regarding further management If she is not available for consultation, recommend referral to foot and ankle services in [place] for further management In my opinion, the patient may need more proximal amputation than a simple toe amputation. I do not perform any forefoot or midfoot amputations. Continue antibiotics as patient seems to be responding clinically with white cell count trending down Repeat CBC, ESR and CRP Smoking cessation Better diabetic control Obtain MRI images and copy of MRI report from [facility] and she was seen by podiatry-obb is a 48 DM female who was admitted 05/11/18 for diabetic ulcer and left foot infection. Patient states he also has been present since March. She saw her primary care provider, Dr. Stern in [place], who referred her to a surgeon, Dr Rodriguez. The general surgeon referred her to a foot doctor. However, she says all of the foot doctors they referred her to do not take her insurance, so she has had no follow-up. She began having increasing pain in the area on Thursday. She went to [facility] emergency department. She says her blood sugar was over 600. She says she received IV fluids and 10 units of insulin and her blood sugar went down to 366. She was not given antibiotics. She says a culture was not performed on her foot. She says she has never had any antibiotics. On Thursday she began running a fever and fevers have been 101-102. She says when her fever goes up it makes her vomit. Patient has a history of right foot amputation with ulceration. She states in 2015 he had a diabetic ulcer and then developed cellulitis in the right second toe, which was removed. She had a PICC after surgery. She denies history of lower extremity revascularization. She states she has had diabetic shoes in the past but needs new ones. She is concerned with her postop management due to her living situation. eft foot cellulitis, 4th toe osteomyelitis, gas gangrene, DM ulcer: Discussed plan of care with Dr. Bynum. At his request I reviewed the patient's medical record, scans and did a consult on the patient. I do agree the patient needs more than a fourth toe amputation. Due to the extensive cellulitis, gas infection and likely involvement of the fourth metatarsal head, patient would benefit from a partial fourth ray amputation with possible transmetatarsal amputation. Patient verbalized understand of the disease process. Patient agrees with and is to follow the treatment plan. Education provided. Patient understands that she will be transferred to for further management and for amputation. 1. Discussed with Dr Bynum: transfer to for amputation and mgmt 2. Continue antibiotics 3. Repeat CBC, ESR and CRP 4. Smoking cessation 5. Diabetic control and education 6. Obtain MRI images and copy of MRI report from [facility]: still pending pt does use tob and compliance with diet and meds and tob cessation were discussed Objective Vital signs: Temp Pulse Resp BP Pulse Ox 98.1 F 85 18 134/73 95 05/13/18 07:55 05/13/18 07:55 05/13/18 07:55 05/13/18 07:55 05/13/18 07:55 no acute distress, obese - *Routine HEENT Exam Head: Present: normocephalic Eye: Present: EOMI, PERRL ENT: Present: mucous membranes dry - *Routine Neck Exam Absent: JVD - *Routine Respiratory Exam Present: CTA bilaterally - *Routine Cardiovascular Exam Present: RRR, murmur, S4 - *Routine Abdominal Exam Present: soft - *Routine Extremities Exam Comments: changes to lt foot most consistent with gangrene - *Routine Skin Exam Comments: changes consistent with gangrene as 4th toe is swollen and pale with sl odor and reddness with dec sensation dorsal foot - *Routine Neurological Exam Present: alert, oriented X3, CN II-XII intact - Routine Psychiatric Exam Present: normal affect Results Labs on day of discharge: Labs from last 24 hours 05/13/18 05/12/18 05/12/18 06:07 20:02 17:11 WBC RBC Hgb Hct MCV MCH MCHC RDW Plt Count MPV Neut % (Auto) Lymph % (Auto) [place] % (Auto) Eos % (Auto) Baso % (Auto) Neut # (Auto) Lymph # (Auto) [place] # (Auto) Eos # (Auto) Baso # (Auto) ESR Sodium Potassium Chloride Carbon Dioxide Anion Gap BUN Creatinine Estimated Creat Clear Estimated GFR Est GFR ( Amer) Glucose POC Glucose 328 H* 359 H* 415 H* Calcium C-Reactive Protein 05/12/18 05/12/18 05/12/18 13:17 13:17 11:05 WBC 9.4 D RBC 4.19 L Hgb 11.8 L Hct 37.9 MCV 90.4 MCH 28.0 MCHC 31.0 L RDW 13.3 Plt Count 296 MPV 8.0 Neut % (Auto) 82.9 H Lymph % (Auto) 11.9 [place] % (Auto) 4.4 Eos % (Auto) 0.7 Baso % (Auto) 0.1 Neut # (Auto) 7.8 Lymph # (Auto) 1.1 [place] # (Auto) 0.4 Eos # (Auto) 0.1 Baso # (Auto) 0.0 ESR 113 H Sodium 133 L Potassium 3.8 Chloride 98 Carbon Dioxide 29 Anion Gap 9.8 BUN 16 D Creatinine 1.44 H Estimated Creat Clear 76 Estimated GFR 39 L Est GFR ( Amer) 47 L Glucose 415 H* POC Glucose 419 H* Calcium 8.1 L C-Reactive Protein 30.6 H Preliminary micro results at discharge 05/11/18 12:00 Wound Culture - Preliminary Foot,Left - Wound Morganella morganii ssp addie Gram Positive Cocci DS: Diagnosis - Discharge Diagnosis (1) Diabetic foot infection Status: Acute (2) Foot ulcer Status: Acute (3) Osteomyelitis of foot, left, acute Status: Acute (4) Gas gangrene of foot Status: Acute (5) Tobacco use Status: Acute (6) Diabetes mellitus, insulin dependent (IDDM), uncontrolled Status: Acute (7) Overweight Status: Acute Discharge Plan - Patient Discharge Instructions ACTIVITY: Continue current activity DIET: continue same diet - Follow up Plan Disposition: Xfer Short-Term Hosp Home Medications: Home Medications Medication Instructions Recorded Confirmed Type Carvedilol [Carvedilol 3.125mg Tab] 1.5625 mg PO BID 05/11/18 05/12/18 History Cetirizine HCl 10 mg PO DAILY 05/11/18 05/12/18 History Clopidogrel Bisulfate [Plavix 75mg 75 mg PO DAILY 05/11/18 05/11/18 History Tab] Duloxetine HCl 60 mg PO DAILY 05/11/18 05/11/18 History Insulin Glargine,Hum.rec.anlog 10 unit SQ TID 05/11/18 05/11/18 History [Basaglar Kwikpen U-100] Insulin Lispro [HumaLOG 100 10 unit SQ TID 05/11/18 05/11/18 History units/mL 3mL vial (SSI)] Losartan Potassium 37.5 mg PO DAILY 05/11/18 05/12/18 History Omeprazole [Omeprazole 40mg 40 mg PO DAILY 05/11/18 05/11/18 History Capsule] Topiramate 100 tab PO DAILY 05/11/18 05/12/18 History Venlafaxine HCl [Effexor XR 75mg 75 mg PO DAILY 05/11/18 05/11/18 History capsule] Atorvastatin Calcium [Atorvastatin 40 mg PO DAILY 05/12/18 05/12/18 History 40mg Tab] Isosorbide Mononitrate [Imdur 30mg 30 mg PO DAILY 05/12/18 05/12/18 History ER tablet] Propranolol HCl 80 mg PO BID 05/12/18 05/12/18 History SUMAtriptan succinate [Imitrex] 50 mg PO DIRECTED PRN 05/12/18 05/12/18 History Prescriptions/Medication Reconciliation: New Piperacillin/Tazo [Zosyn 3.375gm ADV] 3.375 gm IV Q6H vial.port Vancomycin HCl [Vancomycin 1000mg Vial] 2,000 mg IV Q24H vial Continue Topiramate 100 tab PO DAILY Omeprazole [Omeprazole 40mg Capsule] 40 mg PO DAILY Losartan Potassium 37.5 mg PO DAILY Insulin Lispro [HumaLOG 100 units/mL 3mL vial (SSI)] 10 unit SQ TID Duloxetine HCl 60 mg PO DAILY Clopidogrel Bisulfate [Plavix 75mg Tab] 75 mg PO DAILY Cetirizine HCl 10 mg PO DAILY SUMAtriptan succinate [Imitrex] 50 mg PO DIRECTED PRN PRN Reason: Headache Isosorbide Mononitrate [Imdur 30mg ER tablet] 30 mg PO DAILY Atorvastatin Calcium [Atorvastatin 40mg Tab] 40 mg PO DAILY Propranolol HCl 80 mg PO BID Venlafaxine HCl [Effexor XR 75mg capsule] 75 mg PO DAILY Insulin Glargine,Hum.rec.anlog [Avery Rodriges U-100] 10 unit SQ TID Carvedilol [Carvedilol 3.125mg Tab] 1.5625 mg PO BID
== END 2018-05-13 17:12 | disposition short-term general hospital (02) ==
LOC: ER 10:58 → 2ND 10:58
PROVIDERS: ADMIT Emergency Medicine; ATTEND Emergency Medicine

== ENCOUNTER → 2018-09-29 13:28 | Outpatient (CLI) | payer MEDICAID, SELFPAY ==
--- NOTE | 2018-09-29 | CA_ITS ---
PROCEDURE: 2-D M-mode and color Doppler study INDICATIONS FOR THE TEST: Chest pain COPD Heart Murmur Tobacco Smoking+ Palpitations Fatigue Syncope Edema+ Hypertension+Diabetes Mellitus+ Rheumatic Fever SOB+SCHNEIDER+Obesity+Hyperlipidemia+ Family History HD Additional History EDEMA PATIENT INFORMATION HEIGHT: 66 WEIGHT:270 GENDER: Female B/P:134/73 2-D/M-MODE INTERPRETATION: 2-D MEASUREMENTS OBSERVED VALUES IN CMS Right Ventricular Dimension (RVDd) 2.5 Interventricular Septum (Thickness)(IVsd) 0.8 Left Ventricular Internal Dimensions(LVIDd) 4.5 Left Ventricular Posterior Wall (Thickness)(LVPWd) 1.0 Aortic Root 2.6 Aortic Cusp Separation 1.9 Left Atrial Dimensions (LAD) 3.9 2D 1. Left atrium is mildly enlarged, left ventricle is normal size, there is no concentric left ventricular hypertrophy, visually estimated ejection fraction of 55% with no regional wall motion abnormality. 2. The right atrium and right ventricle are normal size and contractility. 3. The aortic valve is minimally thickened and fibrosed. 4. The mitral and tricuspid valve leaflets are minimally thickened and calcified. 5.The pulmonic valve is poorly visualized. 6. Small pericardial effusion noted. DOPPLER INTERROGATION: Doppler interrogation of the aortic, mitral and tricuspid valvular presence of mild mitral and tricuspid regurgitation, tricuspid regurgitation jet velocity is inadequate for calculation of the right ventricular systolic pressure, diastolic parameters are within normal range. CONCLUSION: 1. Mildly enlarged left atrium, normal left ventricular size, visually estimated ejection fraction 55% with no regional wall motion abnormality, diastolic parameters are within normal range. 2. Mild mitral and tricuspid regurgitation 3. Small pericardial effusion noted.
== END ==
PROVIDERS: PCP Nurse Practitioner Family; Visit Provider Nurse Practitioner Family
DX: R60.0 Localized edema (principal)
CPT/HCPCS: 93306

== ENCOUNTER → 2018-12-30 07:43 | Outpatient (CLI) | payer MEDICARE, MEDICAID, SELFPAY ==
--- NOTE | 2018-12-30 07:48 | MR_ITS ---
MR head/brain wo con HISTORY: Severe headache with dizziness and blurred vision ITS.REASON: migraine ORDERING PHYSICIAN: Ana Rosa Strong MD PATIENT AGE: 48 years Comparison: 11/07/2015 TECHNIQUE: Standard multiplanar multiecho sequences are performed without contrast. FINDINGS: There is a small area of restricted diffusion in the left external capsule posteriorly. This is hypointense on the ADC images and is consistent with a small lacunar infarction measuring approximately 3 mm. No other restricted diffusion evident. No midline shift, mass effect, intracranial hemorrhage, or hydrocephalus. There are only a few T2 white matter hyperintensities. The pituitary, corpus callosum, optic chiasm, and craniocervical junction have an unremarkable appearance. Cerebellopontine angles, cerebellum, and brainstem are unremarkable. No mastoid effusion or sinus air-fluid level. Flow void artifact is present within the [place]hoe of [place] as expected. IMPRESSION: 1. Tiny acute appearing lacunar infarction in the left basal ganglia within the posterior limb the left external capsule 2. Otherwise essentially negative MRI of the brain without contrast
== END ==
PROVIDERS: PCP Nurse Practitioner Family; Visit Provider Specialist
DX: G43.919 Migraine, unspecified, intractable, without status migrainosus (principal)
CPT/HCPCS: 70551

== ENCOUNTER → 2019-01-13 19:51 | Outpatient (CLI) | payer MEDICARE, MEDICAID, SELFPAY | PROVIDERS: PCP Nurse Practitioner Family; Visit Provider Specialist | DX: G47.33 Obstructive sleep apnea (adult) (pediatric) (principal); I10 Essential (primary) hypertension; G47.36 Sleep related hypoventilation in conditions classified elsewhere | CPT/HCPCS: 95783; 95811 ==

== ENCOUNTER → 2019-03-04 10:25 | Outpatient (CLI) | payer MEDICARE, SELFPAY ==
--- NOTE | 2019-03-04 10:34 | MM_ITS ---
MM Dig screening mamm BI w/CAD CAD Screening COMPARISON: Digital mammograms with CAD 04/30/2017 INDICATION: There Is a history of breast cancer in patient's paternal grandmother. TECHNIQUE: Standard CC and MLO images were obtained. R2 CAD reviewed. FINDINGS: Scattered fibro glandular densities are seen throughout both breasts. There has been some fatty involution of the breast parenchyma since the previous exam. A couple benign appearing calcifications left breast. There is no suspicious lesion and there are no suspicious microcalcifications. IMPRESSION: Fibrofatty parenchyma with no suspicious lesion seen BI-RADS Category: 2 Benign Finding(s) RECOMMENDED FOLLOW-UP: 1YR - 1 YEAR FOLLOW-UP (A letter has been sent to the patient regarding results of the study.)
== END ==
PROVIDERS: PCP Nurse Practitioner Family; Visit Provider Nurse Practitioner Family
DX: Z12.31 Encounter for screening mammogram for malignant neoplasm of breast (principal)
CPT/HCPCS: 77067

== ENCOUNTER → 2019-10-13 06:37 | Outpatient (CLI) | payer MEDICARE, MEDICAID, SELFPAY ==
--- NOTE | 2019-10-13 06:37 | NM_ITS ---
APPROVED REPORT Exam: Nuclear Stress Test Indication: chest pain..palpitations..fatigue Patient Location: Outpatient Stress Tech: Parul Audie [place] Tech:Cyndi GarciaringtonSUNSHINE RT(R)(N) Ht: 5 ft 6 in Wt: 233 lbs Bra Size: 2x HR: 76 bpm BP: 116/57 mmHg BSA: 2.13 m2 BMI: 37.6 History: chest pain..palpitations..fatigue Procedure: Patient received a 0.4 mg of intravenous Lexiscan, resting heart rate 76 bpm, resting blood pressure 116/57 mmHg, with Lexiscan maximum heart rate achived was 91 bpm which is % of the maximum predicted heart rate and blood pressure was 95/46 mmHg. Cardiac Stress and Resting SPECT Images: Cardiac Stress and Resting SPECT images were obtained using technetium 99m Myoview 31.6 mCi stress and 10.28 mCi at rest. EF 70% Small reversible defect in anterior wall towards base of heart suggesting an area of ischemia Conclusion: EF 70% Small reversible defect in anterior wall towards base of heart suggesting an area of ischemia Electronically signed by : Car Barnhart MD 10/14/2019 16:03:19
--- NOTE | 2019-10-13 06:37 | CA_ITS ---
APPROVED REPORT Exam: Pharmacologic Technologist: ELISSA VILLALBA, Ht: 5 ft 6 in Wt: 233 lbs BSA: 2.13 m2 HR: 76 bpm BP: 116/57 mmHg Rhythm: NSR Indications: SOA Medical History Medications: Lisinopril,,,,, Isosorbide,,,,, Effexor,,,,, Gabapentin,,,,, Lipitor,,,,, Coreg,,,,, Protonix,,,,, Plavix,,,,, Cardiac Risk Factors: HTN, Hyperlipidemia Stress Test Details Test: LEXISCAN Reason for pharmacologic stress test: physical limitation. HR Resting HR: 75 bpm Max Heart Rate (APMHR): 171 bpm Max HR Achieved: 93 bpm Target HR (85% APMHR): 145 bpm % of APMHR: 54 Recovery HR: 89 bpm BP Resting BP: 116/57 mmHg Max BP: 116/57 mmHg Recovery BP: 111.0/49.0 mmHg ECG Clinical Reason for Termination: Completed protocol Exercise duration: 04:07 min Highest Stage Achieved: Stress ECG Conclusion Symptoms - Mild SOA and nausea. Mild malaise and mild chest discomfort. No ectopy. No significant ST-T changes. Conclusion - Unremarkable Lexiscan stress. Myoview images reported separately. Test Summary REST 05:40 . . 75 . 116/ 57 . . Stage 1 01:00 . . 79 . . . . Stage 2 01:00 . . 90 . . . . Stage 3 01:00 . . 91 . 95/ 46 . . Stage 4 01:00 . . 91 . . . . Stage 4 01:07 . . 91 . 111/ 52 . Stop exercise at 04:07 RECOVERY 01:00 . . 90 . . . . RECOVERY 02:00 . . 90 . 100/ 50 . . RECOVERY 03:00 . . 89 . 111/ 49 . . RECOVERY 03:45 . . 87 . 111/ 49 . . Electronically signed by : Beni Rutherford, 10/13/2019 12:01:54
--- NOTE | 2019-10-13 10:50 | HMH.ITSHM ---
Current Home Medications as stated by this patient Carla Burkett or claims representative. [] plavix coreg lipitor
== END ==
PROVIDERS: PCP Nurse Practitioner Family; Visit Provider Urology
DX: R06.00 Dyspnea, unspecified; R07.9 Chest pain, unspecified; E78.5 Hyperlipidemia, unspecified; I20.9 Angina pectoris, unspecified; N18.9 Chronic kidney disease, unspecified; R00.2 Palpitations; R60.0 Localized edema
CPT/HCPCS: 78452; 93017; 93306; A9502; J2785

== ENCOUNTER → 2019-10-17 11:11 | Outpatient (CLI) | payer MEDICARE, MEDICAID, SELFPAY ==
--- NOTE | 2019-10-17 11:29 | XR_ITS ---
PROCEDURE: XR FOOT WT BEARING RT 3V CLINICAL INDICATION: wound Foot wound, bilateral pain COMPARISON: TOER1 TOE-RT-1ST DIGIT(GREAT)-3VIEWS from 07/31/2015 [id number] XR foot LT min 3V from 05/11/2018 FINDINGS: There has been prior amputation at the proximal aspect of the distal phalanx of the 2nd toe. A mild hallux valgus. No acute fracture or dislocation. No lytic or blastic changes are evident. Flexion deformity involves the 3rd 4th and 5th toes. IMPRESSION: Prior amputation at the 2nd toe with hallux valgus and hammertoe deformities otherwise negative Dictated by: Car Barnhart MD 10/17/2019 12:06 Electronically signed by Car Barnhart MD in [place] 10/17/2019 12:06
--- NOTE | 2019-10-17 11:29 | XR_ITS ---
PROCEDURE: XR FOOT WT BEARING LT 3V CLINICAL INDICATION: wound Pain COMPARISON: [id number] XR foot LT min 3V from 05/11/2018 FINDINGS: There has been an interval amputation at the mid aspect of the 4th and 5th metatarsals with progressive osteoarthritic changes of the 1st 2nd and 3rd metatarsophalangeal junction. There is sclerosis and cortical thickening of the proximal aspect the 2nd metatarsal. There are old fractures at the proximal aspect of the 3rd and 2nd metatarsals with sclerosis and cortical thickening. Osteoarthritic changes are present at the 1st 2nd and 3rd metatarsal tarsal junction as well as the talonavicular joint and navicular cuneiform joint. Bandage artifact is present at the great toe. There is some ill definition of the tip of the distal phalanx of the great toe. This in part could be related to the overlying artifact. Cannot exclude erosive change at this area. IMPRESSION: 1. Postsurgical and degenerative changes with old fractures at the base of the 2nd and 3rd metatarsals 2. Bandage artifact with possible erosive change at the tuft of the distal phalanx of the great toe which raises the suspicion osteomyelitis. Dictated by: Car Barnhart MD 10/17/2019 11:51 Electronically signed by Car Barnhart MD in [place] 10/17/2019 11:51
[2019-10-17 11:37] LABS: Basophils % 0.4 % (0.1-2.0); Eosinophils # 0.2 K/mm3 (0.0-0.4); Hematocrit 41.3 % (37.0-47.0); Hemoglobin 12.9 g/dL (12.2-16.2); Lymphocytes # 2.5 K/mm3 (0.7-4.5); Lymphocytes % 22.2 % (10-50); Mean Corpuscular HGB Conc 31.2 g/dL (31.8-35.4); Mean Corpuscular Hemoglobin 26.8 pg (27.0-31.2); Mean Corpuscular Volume 85.8 fl (81-99); Mean Platelet Volume 8.6 fl (7.4-10.4); Monocytes # 0.4 K/mm3 (0.1-1.0); Monocytes % 3.7 % (1.7-9.3); Neutrophils # 8.2 K/mm3 (1.8-7.8); Neutrophils % 71.7 % (37.0-80.0); Platelet Count 390 K/mm3 (142-424); Red Blood Count 4.81 M/mm3 (4.20-5.40); Red Cell Distribution Width 16.9 % (11.5-17.5); White Blood Count 11.4 K/mm3 (4.8-10.8)
[2019-10-17 16:37] LABS: Alanine Aminotransferase 15 U/L (12-78); Albumin Level 3.7 g/dl (3.5-5.0); Albumin/Globulin Ratio 1.4 (1.1-1.8); Alkaline Phosphatase 149 U/L (38-126); Aspartate Amino Transferase 22 U/L (14-36); Bilirubin,Total 0.4 mg/dl (0.2-1.3); Blood Urea Nitrogen 19 mg/dl (7-17); Carbon Dioxide 26 mmol/L (22.0-30.0); Chloride 105 mmol/L (98-107); Estimated Glomerular Filt Rate 53 ml/min (>60); GFR (African American) 64 ML/MIN (>60); Globulin 2.6 g/dL (1.3-3.2); Glucose 171 mg/dl (74-100); Sodium 139 mmol/L (136-145); Total Protein,Serum 6.3 g/dl (6.3-8.2)
[2019-10-17 16:43] LABS: C-Reactive Protein 17.3 mg/L (0-4); Hemoglobin A1C 11.4 % (4.0-6.0)
[2019-10-17 18:55] LABS: Erythrocyte Sedimentation Rate 37 mm/hr (0-20)
== END ==
PROVIDERS: PCP Nurse Practitioner Family; Visit Provider Podiatrist
DX: Z51.89 Encounter for other specified aftercare (principal); E11.628 Type 2 diabetes mellitus with other skin complications; L08.9 Local infection of the skin and subcutaneous tissue, unspecified; E11.621 Type 2 diabetes mellitus with foot ulcer; L97.509 Non-pressure chronic ulcer of other part of unspecified foot with unspecified severity; B35.1 Tinea unguium
CPT/HCPCS: 36415; 73630; 80053; 83036; 85025; 85651; 86140

== ENCOUNTER → 2019-10-24 14:39 | Outpatient (CLI) | payer MEDICARE, MEDICAID, SELFPAY ==
--- NOTE | 2019-10-24 14:43 | US_ITS ---
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 [employer] Arc: Amelie Edwards RDCS Indications Claudication: Non-healing Ulcer: PAD Current Smoker History of Smoking Risk Factors Obesity Diabetes Current Smoker Pressures/Indices Right Indices Left Indices Brachial 181.00 mmHg Brachial 170.00 mmHg Low Thigh 173.00 mmHg 0.96 Low Thigh 186.00 mmHg 1.03 Calf 208.00 mmHg 1.15 Calf 198.00 mmHg 1.09 Ankle(PT) 214.00 mmHg 1.18 Ankle(PT) 197.00 mmHg 1.09 Ankle(DP) 205.00 mmHg 1.13 Ankle(DP) 205.00 mmHg 1.13 Digit 190.00 mmHg 1.05 Digit 143.00 mmHg 0.79 Findings R CHARLES 1.2 L CHARLES 1.1 R TBI 1.1 L TBI .8 NORMAL WAVEFORMS PULSES Conclusion No evidence significant arterial disease throughout the right and left lower extremities as evidenced by normal resting PVR waveforms and normal resting indices. Electronically signed by : Car Barnhart MD 10/24/2019 17:12:58
--- NOTE | 2019-10-24 15:10 | XR_ITS ---
PROCEDURE: XR CHEST 2V CLINICAL HISTORY: HTN , SMOKER, PREOP COMPARISON: CXR CHEST(2 VIEWS-NOT PORTABLE) from 03/25/2014 CXR CHEST(2 VIEWS-NOT PORTABLE) from 11/21/2014 CXR CHEST(2 VIEWS-NOT PORTABLE) from 08/13/2015 CXR CHEST(2 VIEWS-NOT PORTABLE) from 11/15/2015 CXR CHEST(2 VIEWS-NOT PORTABLE) from 08/02/2017 FINDINGS: The cardiomediastinal silhouette and pulmonary vascularity are within normal limits. The lungs are clear without infiltrates, suspicious nodules, or pleural effusions. No acute bony abnormalities. IMPRESSION: No acute findings. Dictated by: Car Barnhart MD 10/24/2019 15:27 Electronically signed by Car Barnhart MD in [place] 10/24/2019 15:27
== END ==
PROVIDERS: PCP Nurse Practitioner Family; Visit Provider Podiatrist
DX: Z01.818 Encounter for other preprocedural examination (principal); M86.172 Other acute osteomyelitis, left ankle and foot; E11.610 Type 2 diabetes mellitus with diabetic neuropathic arthropathy; R09.89 Other specified symptoms and signs involving the circulatory and respiratory systems; Z72.0 Tobacco use
CPT/HCPCS: 71046; 93923

== ENCOUNTER 2019-11-14 11:00 | Outpatient (CLI) | payer MEDICARE, MEDICAID, SELFPAY ==
[2019-11-14 11:12] VITALS: BMI 37.3
[2019-11-14 11:29] LABS: Basophils # 0.1 K/mm3 (0-0.2); Basophils % 0.4 % (0.1-2.0); Eosinophils # 0.3 K/mm3 (0.0-0.4); Eosinophils % 2.5 % (0.1-12.0); Hematocrit 31.8 % (37.0-47.0); Hemoglobin 9.8 g/dL (12.2-16.2); Lymphocytes # 2.8 K/mm3 (0.7-4.5); Mean Corpuscular HGB Conc 30.8 g/dL (31.8-35.4); Mean Corpuscular Hemoglobin 25.8 pg (27.0-31.2); Mean Corpuscular Volume 83.6 fl (81-99); Mean Platelet Volume 7.4 fl (7.4-10.4); Monocytes # 0.5 K/mm3 (0.1-1.0); Monocytes % 4.2 % (1.7-9.3); Neutrophils # 8.5 K/mm3 (1.8-7.8); Neutrophils % 69.9 % (37.0-80.0); Platelet Count 807 K/mm3 (142-424); Red Blood Count 3.81 M/mm3 (4.20-5.40); Red Cell Distribution Width 14.8 % (11.5-17.5); White Blood Count 12.2 K/mm3 (4.8-10.8)
[2019-11-14 11:38] LABS: Chloride 101 mmol/L (98-107); Potassium 4.6 mmoL/L (3.5-5.1); Sodium 136 mmol/L (136-145)
[2019-11-14 11:41] LABS: Alanine Aminotransferase 27 U/L (12-78); Albumin Level 3.5 g/dl (3.5-5.0); Alkaline Phosphatase 148 U/L (38-126); Anion Gap 14.6 mEq/L (5-15); Aspartate Amino Transferase 28 U/L (14-36); Bilirubin,Total 0.2 mg/dl (0.2-1.3); Blood Urea Nitrogen 17 mg/dl (7-17); Calcium 9.2 mg/dl (8.4-10.2); Carbon Dioxide 25 mmol/L (22.0-30.0); Creatinine Clearance Estimated 94 mL/min (50-200); Estimated Glomerular Filt Rate 48 ml/min (>60); GFR (African American) 58 ML/MIN (>60); Globulin 3.4 g/dL (1.3-3.2); Glucose 305 mg/dl (74-100); Total Protein,Serum 6.9 g/dl (6.3-8.2)
[2019-11-14 11:46] LABS: C-Reactive Protein 63.7 mg/L (0-4)
[2019-11-14 11:55] VITALS: BP 110/58; PULSE 83; RESP 18; TEMP 36.6; O2SAT 98
[2019-11-14 11:56] LABS: Vancomycin,Trough 14.3 ug/mL (5.0-10.0)
[2019-11-14 12:20] LABS: Erythrocyte Sedimentation Rate > 140 mm/hr (0-20)
[2019-11-14 12:25] VITALS: BP 114/60; PULSE 81; RESP 18; O2SAT 99
[2019-11-14 12:35] VITALS: BP 109/59; PULSE 80; RESP 18; O2SAT 98
== END 2019-11-14 12:35 | disposition home or self-care (01) ==
LOC: INF 11:11
PROVIDERS: PCP Nurse Practitioner Family; Visit Provider Podiatrist
DX: L97.502 Non-pressure chronic ulcer of other part of unspecified foot with fat layer exposed; M86.9 Osteomyelitis, unspecified; Z98.890 Other specified postprocedural states; Z89.432 Acquired absence of left foot; Z45.2 Encounter for adjustment and management of vascular access device
CPT/HCPCS: 80053; 80202; 85025; 85651; 86140; 87070; 87186; 87205; 96365; J1335

== ENCOUNTER 2019-11-22 13:45 | Inpatient (IN) | payer MEDICARE, MEDICAID, SELFPAY ==
[2019-11-22] VITALS (8 sets, daily range): BP systolic 133–164; BP diastolic 74–78; PULSE 79–105; RESP 16–20; TEMP 36.6–37.1; O2SAT 96–98; BMI 37.3; BMI 36.6
--- NOTE | 2019-11-22 13:51 | HMH.EDGENADL ---
ED Disposition Clinical Impression: Wound infection after surgery, Hyperkalemia, Acute kidney injury Disposition: Admitted as Observation Condition on Discharge: Serious - Critical Care Critical Care Time: Yes Attestation: On 11/22/19, the high probability of a clinically significant, sudden or life threatening deterioration of the following system(s) required my full and direct attention, intervention and personal management. The time I documented below is in addition to time spent performing reported procedures but includes the following listed in this critical care notation. Total Critical Care Time: 35 Vital system(s) involved:: Metabolic Failure My critical care processes included: Assessment & monitoring of V/S, Initial and Re-exams, Data Review/Interpretation, Coordinating Care, Medication Orders and management, Documentation Medical Decision Making - Mauri Inquiry Pt receiving controlled substance: No Vital Signs: 11/22/19 13:46 11/22/19 15:30 11/22/19 17:07 Temperature 98 F 98.2 F Temperature Source Oral Oral Pulse Rate Pulse Rate [Left Radial] 98 H 87 105 H Respiratory Rate 16 18 Blood Pressure Blood Pressure [Right Arm] 155/76 H 153/74 H 164/74 H Blood Pressure Mean [Right Arm] 102 100 104 Blood Pressure Source [Right Arm] Automatic Cuff Blood Pressure Position Blood Pressure Position [Right Arm] Sitting Sitting Supine 02 Sat by Pulse Oximetry 98 96 Oxygen Delivery Method Room Air Room Air 11/22/19 17:15 11/22/19 17:30 11/22/19 17:33 Temperature 98 F Temperature Source Oral Pulse Rate 105 H 88 Pulse Rate [Left Radial] 88 Respiratory Rate 16 Blood Pressure 133/74 Blood Pressure [Right Arm] 133/74 Blood Pressure Mean [Right Arm] 93 Blood Pressure Source [Right Arm] Blood Pressure Position Sitting Blood Pressure Position [Right Arm] Sitting 02 Sat by Pulse Oximetry Oxygen Delivery Method Room Air - Lab Data Lab Results 11/22/19 14:30: WBC 7.6, RBC 4.29, Hgb 11.1 L, Hct 35.7 L, MCV 83.3, MCH 25.8 L, MCHC 31.0 L, RDW 14.6, Plt Count 581 H, MPV 8.0, Neut % (Auto) 70.0, Lymph % (Auto) 24.1, [place] % (Auto) 3.4, Eos % (Auto) 2.0, Baso % (Auto) 0.6, Neut # (Auto) 5.3, Lymph # (Auto) 1.8, [place] # (Auto) 0.3, Eos # (Auto) 0.2, Baso # (Auto) 0.0 11/22/19 14:30: Sodium 135 L, Potassium 6.5 H*, Chloride 98, Carbon Dioxide 27, Anion Gap 16.5 H, BUN 25 H, Creatinine 1.80 H, Estimated Creat Clear 63, Estimated GFR 30 L, Est GFR ( Amer) 36 L, Glucose 450 H*, Calcium 9.1, Total Bilirubin 0.3, AST 19, ALT 16, Alkaline Phosphatase 180 H, C-Reactive Protein 38.0 H, Total Protein 7.4, Albumin 3.8, Globulin 3.6 H, Albumin/Globulin Ratio 1.1 11/22/19 14:30: Lactate 1.4 11/22/19 14:30: ESR 86 H 11/22/19 14:55: Urine Color Yellow, Urine Appearance Clear, Urine pH 6.5, Ur Specific [place] 1.020, Urine Protein Trace, Urine Glucose (UA) 3+, Urine Ketones Negative, Urine Blood 1+, Urine Nitrate Negative, Urine Bilirubin Negative, Urine Urobilinogen 0.2, Ur Leukocyte Esterase Negative, Urine WBC 3-5, Ur Squamous Epith Cells 3-5, Urine Bacteria Trace 11/22/19 17:20: Potassium 4.7 D Result diagrams: 11/22/19 14:30 11/22/19 17:20 Orders (Tests/Meds): ED MEDICATIONS Generic Name Dose Route Start Last Admin Trade Name Freq PRN Reason Stop Dose Admin Acetaminophen 650 mg 11/22/19 16:50 Acetaminophen 325mg Tab PO 12/22/19 16:49 Q4HP PRN As Needed for Fever or Pain Atorvastatin Calcium 40 mg 11/23/19 09:00 Lipitor 40mg Tablet PO 12/23/19 08:59 DAILY JASEN Carvedilol 3.125 mg 11/22/19 21:00 Coreg 3.125mg Tablet PO 12/22/19 20:59 BID JASEN Clopidogrel Bisulfate 75 mg 11/23/19 09:00 Plavix 75mg Tablet PO 12/23/19 08:59 DAILY [facility] Enoxaparin Sodium 100 mg 11/22/19 17:51 11/22/19 17:57 Lovenox 100mg/Ml Syringe SQ 11/22/19 17:52 100 mg ONCE ONE Administration Furosemide 20 mg 11/22/19 16:50 Lasix 40mg Tablet P
--- NOTE | 2019-11-22 13:56 | XR_ITS ---
PROCEDURE: XR FOOT LT MIN 3V CLINICAL INDICATION: ? infection COMPARISON: [id number] XR foot LT min 3V from 05/11/[address] foot LT wo con from 05/12/2018 XR FOOT WT BEARING RT 3V from 10/17/2019 XR FOOT WT BEARING LT 3V from 10/17/2019 LT FOOT from 10/28/2019 XR FOOT LT MIN 3V from 11/02/2019 FINDINGS: There has been amputation at the tarsal metatarsal junction. Skin clips are present and antibiotic beads are noted. The splint has been removed. There is some residual soft tissue gas at the amputation site which could be postsurgical or due to ongoing infection. On the lateral view there is some increased density of the soft tissues at the stump of the amputation. Etiology of this is uncertain. IMPRESSION: Status post amputation at the metatarsal tarsal junction. Soft tissue gas is noted and there is increased density at the stump site as noted on the lateral view which could be something upon or within the patient or due to soft tissue calcification. Dictated by: Car Barnhart MD 11/22/2019 15:29 Electronically signed by Car Barnhart MD in [place] 11/22/2019 15:29
--- NOTE | 2019-11-22 14:30 | PC.NURSE ---
Have a call out to Dr Teran at this time. Surgeon Partner advised he was risk control field representative for service.
--- NOTE | 2019-11-22 14:31 | XR_ITS ---
PROCEDURE: XR CHEST PORTABLE CLINICAL HISTORY: for surgery Hypertension, current smoker COMPARISON: CXR CHEST(2 VIEWS-NOT PORTABLE) from 11/15/2015 CXR CHEST(2 VIEWS-NOT PORTABLE) from 08/02/2017 XR CHEST 2V from 10/24/2019 FINDINGS: The cardiomediastinal silhouette and pulmonary vascularity are within normal limits. The lungs are clear without infiltrates, suspicious nodules, or pleural effusions. Left upper extremity PICC line is present. The tip is difficult to visualize and may be in the region of the distal SVC. No acute bony anomaly IMPRESSION: PICC line in place, no acute finding Dictated by: Car Barnhart MD 11/22/2019 15:21 Electronically signed by Car Barnhart MD in [place] 11/22/2019 15:21
[2019-11-22 14:41] LABS: Basophils % 0.6 % (0.1-2.0); Eosinophils # 0.2 K/mm3 (0.0-0.4); Hematocrit 35.7 % (37.0-47.0); Hemoglobin 11.1 g/dL (12.2-16.2); Lymphocytes # 1.8 K/mm3 (0.7-4.5); Lymphocytes % 24.1 % (10-50); Mean Corpuscular Hemoglobin 25.8 pg (27.0-31.2); Mean Corpuscular Volume 83.3 fl (81-99); Monocytes # 0.3 K/mm3 (0.1-1.0); Monocytes % 3.4 % (1.7-9.3); Neutrophils # 5.3 K/mm3 (1.8-7.8); Platelet Count 581 K/mm3 (142-424); Red Blood Count 4.29 M/mm3 (4.20-5.40); Red Cell Distribution Width 14.6 % (11.5-17.5); White Blood Count 7.6 K/mm3 (4.8-10.8)
[2019-11-22 14:48] LABS: Chloride 98 mmol/L (98-107); Sodium 135 mmol/L (136-145)
[2019-11-22 14:51] LABS: Alanine Aminotransferase 16 U/L (12-78); Albumin Level 3.8 g/dl (3.5-5.0); Albumin/Globulin Ratio 1.1 (1.1-1.8); Alkaline Phosphatase 180 U/L (38-126); Aspartate Amino Transferase 19 U/L (14-36); Bilirubin,Total 0.3 mg/dl (0.2-1.3); Blood Urea Nitrogen 25 mg/dl (7-17); Calcium 9.1 mg/dl (8.4-10.2); Carbon Dioxide 27 mmol/L (22.0-30.0); Creatinine Clearance Estimated 63 mL/min (50-200); Estimated Glomerular Filt Rate 30 ml/min (>60); GFR (African American) 36 ML/MIN (>60); Globulin 3.6 g/dL (1.3-3.2); Total Protein,Serum 7.4 g/dl (6.3-8.2)
[2019-11-22 14:52] LABS: Lactic Acid 1.4 mmol/L (0.7-2.1)
[2019-11-22 14:53] LABS: Anion Gap 16.5 mEq/L (5-15)
--- NOTE | 2019-11-22 14:53 | ECG_ITS ---
APPROVED REPORT Exam: Resting ECG HR:88 bpm ECG Measurements Heart Rate 88 AXES MS 146 P 40 QRSd 74 QRS 25 QT 364 T 35 QTc 440 <Conclusion> Normal sinus rhythm Normal ECG Electronically signed by : Wally Teran, 11/23/2019 17:17:03
[2019-11-22 14:58] LABS: Glucose 450 mg/dl (74-100); Potassium 6.5 mmoL/L (3.5-5.1)
--- NOTE | 2019-11-22 15:01 | PC.NURSE ---
PICC line flushed with 10cc NS and blood drawn from site.
[2019-11-22 15:04] LABS: Erythrocyte Sedimentation Rate 86 mm/hr (0-20)
--- NOTE | 2019-11-22 15:11 | HMH.ORTHOCON ---
*Admission Date: 11/22/19 *Reason for consult:: Left foot gas gangrene *History of present illness: Ms. Burkett presents to the ED today with complaints of abdominal pain, left foot infection and PICC line malfunction . The patient had surgery on her left foot by my on 11/02/2019. She says her home health care nurse came today and the patient was having trouble with her PICC line, could not get the medication to infuse. When the home care nurse changed the bandage on her foot she says that they busted open a pocket of infection . The patient arrives here by ambulance. She was last seen by me, 11/14/19. Patient was scheduled for a follow up 11/21/19 and did not come. Patient was contacted with no answer. She reports that she was at ER yesterday for gallbladder issues. She was told she needed to have it removed . She is unsure why they did not do it yesterday or why she was not admitted. Denies fever. No change in foot pain. The previous incision is noted to have a wide dehiscence, what was not there last week. S/p: left Lisfranc disarticulation amputation, left tendo Achilles lengthening, left foot bone biopsy, left application of antibiotic beads, left application of posterior splint on 11/02/19. 11/02/19, cultures: MRSA, Strep agalactiae - (group b), Klebsiella oxytoca. Path: ulcer, cellulitis, necrosis. Patient is currently getting IV Abx via PICC. She is on IV Vanco and Invanz 1g daily. I saw the patient in ED. She was noted to have soft tissue gas infection on the left foot x-ray today. Given the wound dehiscence, malodor, necrotic tissue, x-ray findings and elevated labs, I recommended medicine admission. Anesthesia evaluated the patient and there was concern over elevated glucose at 450 and K+ at 6.5. They recommended medicine admission and plan for surgery tomorrow. I plan to do an incision and drainage with debridement once the patient is medically stable. I discussed plan of care with Dr. Warner, who will admit with Dr. Teran. Review of Systems - Review of Systems Review of systems:: pertinent systems reviewed and negative unless documented below - Constitutional Reports weakness, Denies chills - Eyes Denies blind spots - ENT Denies abnormal hearing - *Cardiovascular Denies chest pain - *Respiratory Denies cough, Denies shortness of breath - *Gastrointestinal Reports abdominal pain, Reports nausea - *Genitourinary Denies abnormal periods - *Musculoskeletal Reports joint swelling - Integumentary/Breasts Reports hair loss, Reports change in hair, Reports non-healing lesions, Reports skin ulcer, Reports wounds - *Neurologic Reports tingling/numbness/burning sensations - Psychiatric Denies abnormal sleep pattern - Endocrine Reports increased thirst - Hematologic/Lymphatic Reports easy bruising - Allergic/Immunologic Reports GI upset with certain foods [facility] History I have reviewed the patient's past medical history: Yes Medical History: Reports:: Anxiety, Coronary Artery Disease, Depression, Diabetes Mellitus Type 1, Diabetes Mellitus Type 2, Gastroesophageal Reflux Disease(GERD), Hyperlipidemia, Hypertension, Migraine, MRSA (foot wound), Renal Disease Denies:: Cancer, Internal Pacemaker, Seizures *Have you ever received a pneumonia vaccine?: Yes *Have you received a flu vaccine this season?: Yes Other Medical History: Reports: Arthritis. Denies: Blood Transfusion Reaction Laterality Cases: Right: Arthroscopy Knee, Carpal Tunnel Release, Bilateral: Tonsillectomy Other Surgeries: Yes: Cardiac Catheterization, (1995), Dilation and Curettage (2005). 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 toe on rt foot, TMA left foot) Fractures: No - *Social History Smoking Status: Current every day smoker Tobacco Type: cigarettes # Packs/Day (cigarettes): 0 Alcohol Intake: never Alcohol Intake Frequency:: other Substance Use Type: denies use *Occupational Status:: other Housing: house Household Members: other *Travel in the
--- NOTE | 2019-11-22 15:28 | PC.NURSE ---
CALLING DR URBINA BACK AT THIS TIME
--- NOTE | 2019-11-22 15:30 | PC.NURSE ---
SURGERY COME DOWN TO GET PT. ONCE ANESTHESIA WAS NOTIFIED OF PT'S POTASSIUM OF 6.5, HE ADVISED THAT PT WILL WAIT AND GO TO SURGERY TOMORROW IN ORDER TO HAVE ADEQUATE TIME TO DECREASE POTASSIUM LEVELS. ER AND DR FAIRCHILD BOTH AWARE. UPON SERVICE 'S ACCEPTANCE, PT WILL BE ADMITTED.
[2019-11-22 16:08] LABS: Microscopic, Urine URINE MICROSCOPIC (MICROSCOPIC)
--- NOTE | 2019-11-22 16:08 | PC.NURSE ---
SPOKE WITH DR GODINEZ, WHOM HAS TAKEN OVER SERVICE CALL, AND HE HAS AGREED TO ADMIT PT.
[2019-11-22 16:11] LABS: Appearance,Urine CLEAR (Clear); Bilirubin,Urine Negative (Negative); Blood, Urine 1+ (Negative); Color,Urine YELLOW (Yellow); Glucose,Urine (UA) 3+ (Negative); Ketones,Urine Negative (Negative); Leukocyte Esterase,Urine Negative (Negative); Nitrate,Urine Negative (Negative); PH,Urine 6.5 (5.0-8.5); Protein,Urine TRACE (Negative); Urobilinogen,Urine 0.2 EU/dl (0.2)
[2019-11-22 16:19] LABS: Bacteria,Urine Trace /lpf
--- NOTE | 2019-11-22 16:19 | HMH.PHACONS ---
- Pharmacy Consult Date: 11/22/19 Time: 16:19 Referring provider: DR. ELIZONDO Reason for Consult:: VANCOMYCIN DOSING Allergies and ADEs:: Allergies Allergy/AdvReac Type Severity Reaction Status Date / Time Sulfa (Sulfonamide Allergy Unknown Verified 11/14/19 10:28 Antibiotics) [SULFA (SULFONAMIDE ANTIBIOTICS)] Home Medications:: Home Medications Medication Instructions Recorded Confirmed Type Isosorbide Mononitrate [Imdur 30mg 30 mg PO DAILY 05/12/18 11/14/19 History ER tablet] gabapentin 600 mg tablet 600 mg PO TID #90 tab 12/20/18 11/14/19 History galcanezumab-gnlm 120 mg/mL 120 mg SQ QMONTH 30 Days #1 ml 12/20/18 11/14/19 Rx subcutaneous pen injector atorvastatin 40 mg tablet 40 mg PO DAILY tab 09/26/19 11/14/19 History carvedilol 3.125 mg tablet 3.125 mg PO BID tab 09/26/19 11/14/19 History furosemide 40 mg tablet 20 mg PO DAILYP PRN #30 tab 09/26/19 11/14/19 History levocetirizine 5 mg tablet 5 mg PO DAILY tab 09/26/19 11/14/19 History pantoprazole 40 mg tablet,delayed 40 mg PO DAILY tab 09/26/19 11/14/19 History release insulin glargine 100 unit/mL (3 65 unit SQ QHS ml 10/24/19 11/14/19 History mL) subcutaneous pen insulin lispro 100 unit/mL 14 unit SQ TID ml 10/24/19 11/14/19 History subcutaneous pen lisinopril 10 mg tablet 10 mg PO DAILY tab 10/24/19 11/14/19 History semaglutide 0.25 mg SQ QWEEK ml 10/24/19 11/14/19 History tizanidine 4 mg tablet 4 mg PO DAILY tab 10/24/19 11/14/19 History hydrocodone 7.5 mg-acetaminophen 1 tab PO Q4-6H PRN #30 tab 11/02/19 11/14/19 Rx 325 mg tablet clopidogrel 75 mg tablet 75 mg PO DAILY #30 tab 11/03/19 11/14/19 Rx ciprofloxacin HCl 500 mg tablet 500 mg PO BID 21 Days #42 tab 11/10/19 11/14/19 Rx Aspirin [Low Dose Aspirin EC] 81 mg PO DAILY 11/14/19 11/14/19 History L.acidoph,Paracasei, B.lactis 1 each PO DAILY 11/14/19 11/14/19 History [Probiotic] Metoclopramide HCl [Reglan 5mg 5 mg PO ACHS 11/14/19 11/14/19 History Tablet] Promethazine HCl [Phenergan 25mg 25 mg PO Q4HP PRN 11/14/19 11/14/19 History tab] Vancomycin/Water For Inj (Peg) 2 gm IV DAILY 11/14/19 11/14/19 History [Vancomycin 2 Gram/400 ml Bag] Venlafaxine HCl [Effexor XR 75mg 75 mg PO DAILY 11/14/19 11/14/19 History capsule] Height: 1.68 m Weight: 104.78 kg Laboratory Results:: Laboratory Results - last 24 hr 11/22/19 14:30: WBC 7.6, RBC 4.29, Hgb 11.1 L, Hct 35.7 L, MCV 83.3, MCH 25.8 L, MCHC 31.0 L, RDW 14.6, Plt Count 581 H, MPV 8.0, Neut % (Auto) 70.0, Lymph % (Auto) 24.1, [place] % (Auto) 3.4, Eos % (Auto) 2.0, Baso % (Auto) 0.6, Neut # (Auto) 5.3, Lymph # (Auto) 1.8, [place] # (Auto) 0.3, Eos # (Auto) 0.2, Baso # (Auto) 0.0 11/22/19 14:30: Sodium 135 L, Potassium 6.5 H*, Chloride 98, Carbon Dioxide 27, Anion Gap 16.5 H, BUN 25 H, Creatinine 1.80 H, Estimated Creat Clear 63, Estimated GFR 30 L, Est GFR ( Amer) 36 L, Glucose 450 H*, Calcium 9.1, Total Bilirubin 0.3, AST 19, ALT 16, Alkaline Phosphatase 180 H, C-Reactive Protein 38.0 H, Total Protein 7.4, Albumin 3.8, Globulin 3.6 H, Albumin/Globulin Ratio 1.1 11/22/19 14:30: Lactate 1.4 11/22/19 14:30: ESR 86 H 11/22/19 14:55: Urine Color Yellow, Urine Appearance Clear, Urine pH 6.5, Ur Specific [place] 1.020, Urine Protein Trace, Urine Glucose (UA) 3+, Urine Ketones Negative, Urine Blood 1+, Urine Nitrate Negative, Urine Bilirubin Negative, Urine Urobilinogen 0.2, Ur Leukocyte Esterase Negative Medical History: Reports:: Anxiety, Coronary Artery Disease, Depression, Diabetes Mellitus Type 1, Diabetes Mellitus Type 2, Gastroesophageal Reflux Disease(GERD), Hyperlipidemia, Hypertension, Migraine, MRSA (foot wound), Renal Disease Denies:: Cancer, Internal Pacemaker, Seizures Assessment and Plan - Assessment and plan all Dx Assessment and Plan for all problems:: BASED ON PATIENT'S FACTORS, RECOMMEND STARTING WITH VANCOMYCIN 1750 MG Q24H AT THIS TIME. PHARMACY WILL FOLLOW DAILY AND A
--- NOTE | 2019-11-22 16:37 | PC.NURSE ---
report called to floor
--- NOTE | 2019-11-22 16:42 | PC.NURSE ---
SPEAKING WITH DR GODINEZ AT THIS TIME CONCERNING ATB TREATMENT.
--- NOTE | 2019-11-22 16:44 | PC.NURSE ---
blood glucose 361
--- NOTE | 2019-11-22 17:32 | HMH.HP ---
*Admission Date: 11/22/19 *Chief complaint: Dehiscence of wound of foot *History of present illness: 49-year-old female with recent admission for transmetatarsal amputation of her left foot due to uncontrolled diabetes and osteomyelitis. Procedure performed November 01. Patient has had home health and continued IV antibiotics through a PIC in her left arm. Unfortunately she has developed necrosis of the distal tissue at surgical incision with recurrence of infection. Was brought to the ER at the request of her home health nurse when debbie purulent material expressed from her foot today and there was difficulty administering antibiotics through her picc in her left upper extremity. On presentation she was found to have worsening kidney function from baseline, elevated potassium, elevated inflammatory markers, and debbie dehiscence of her wound on her foot. PICC line was cleared in the ER and flows freely at this time. Podiatry was consulted, requested patient be admitted with continued IV antibiotics. Imaging concerning for new development of gas in the foot. Admitted to medicine for further management and care of comorbidities. Plan for surgery in the morning pending improvement in her hyperkalemia. Patient denies significant pain, fever, nausea, vomiting. Has been taking her IV antibiotics as prescribed for her report. Takes her insulin as prescribed most days. Has had significant elevation in glucose per her report with morning glucoses greater than 200 and highs in the 3-400s at home. Patient's vascular status complicated by her tobacco use history. [facility] History I have reviewed the patient's past medical history: Yes Medical History: Reports:: Anxiety, Coronary Artery Disease, Depression, Diabetes Mellitus Type 1, Diabetes Mellitus Type 2, Gastroesophageal Reflux Disease(GERD), Hyperlipidemia, Hypertension, Migraine, MRSA (foot wound), Renal Disease Denies:: Cancer, Internal Pacemaker, Seizures *Have you ever received a pneumonia vaccine?: Yes *Have you received a flu vaccine this season?: Yes Other Medical History: Reports: Arthritis. Denies: Blood Transfusion Reaction Laterality Cases: Right: Arthroscopy Knee, Carpal Tunnel Release, Bilateral: Tonsillectomy Other Surgeries: Yes: Cardiac Catheterization, (1995), Dilation and Curettage (2005). 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 toe on rt foot, TMA left foot) Fractures: No - *Social History Smoking Status: Current every day smoker Tobacco Type: cigarettes # Packs/Day (cigarettes): 0 Alcohol Intake: never Alcohol Intake Frequency:: other Substance Use Type: denies use *Occupational Status:: other Housing: house Household Members: other *Travel in the last 8 weeks: None - Psychiatric History Pschychiatric History:: Reports:: Anxiety, Depression Family Hx:: Cancer, Diabetes Review of Systems - Review of Systems Review of systems:: pertinent systems reviewed and negative unless documented below (14 point review of systems performed, pertinent positives and negatives as per HPI) - *Neurologic Reports tingling/numbness/burning sensations, Reports weakness, Denies abnormal hearing Meds Home Medications Medication Instructions Recorded Confirmed Type Isosorbide Mononitrate [Imdur 30mg 30 mg PO DAILY 05/12/18 11/22/19 History ER tablet] gabapentin 600 mg tablet 600 mg PO TID #90 tab 12/20/18 11/22/19 History galcanezumab-gnlm 120 mg/mL 120 mg SQ QMONTH 30 Days #1 ml 12/20/18 11/22/19 Rx subcutaneous pen injector atorvastatin 40 mg tablet 40 mg PO DAILY tab 09/26/19 11/22/19 History carvedilol 3.125 mg tablet 3.125 mg PO BID tab 09/26/19 11/22/19 History furosemide 40 mg tablet 20 mg PO DAILYP PRN #30 tab 09/26/19 11/22/19 History levocetirizine 5 mg tablet 5 mg PO DAILY tab 09/26/19 11/22/19 History pantoprazole 40 mg tablet,delayed 40 mg PO DAILY tab 09/26/19 11/22/19 History release insulin glargine 100 unit/mL (3 65 unit SQ QHS ml 10/24/19 11/22/19 Histor
[2019-11-22 17:35] LABS: Potassium 4.7 mmoL/L (3.5-5.1)
[2019-11-22 21:20] LABS: POC Glucose,Bedside 319 (70-110)
[2019-11-23] VITALS (25 sets, daily range): BP systolic 100–154; BP diastolic 51–94; PULSE 72–100; RESP 16–20; TEMP 36.3–37.2; O2SAT 92–97; BMI 37.0; BMI 36.8
[2019-11-23 00:12] LABS: POC Glucose,Bedside 361 (70-110)
--- NOTE | 2019-11-23 04:01 | PC.NURSE ---
Pt is A&Ox4 and has been assisted into rolling shower chair & to bedside commode this shift and tolerate well. Pt has denied any pain to L foot. Pt has denied any N/V/D. ABD is soft, non-tender with active BS, and pt reports last BM was 11/21/19. TEDS in place to RLE, dressing in place to LLE/foot. Pt has been NPO t/o the night and tolerated well. Pt's FS continued to decline during the night, this am FS is 223, medicated per OCT. VSS, call light within reach, will continue to monitor.
[2019-11-23 05:33] LABS: POC Glucose,Bedside 223 (70-110)
[2019-11-23 06:02] LABS: Chloride 103 mmol/L (98-107); Potassium 4.9 mmoL/L (3.5-5.1); Sodium 136 mmol/L (136-145)
[2019-11-23 06:05] LABS: Anion Gap 11.9 mEq/L (5-15); Blood Urea Nitrogen 21 mg/dl (7-17); Calcium 8.4 mg/dl (8.4-10.2); Carbon Dioxide 26 mmol/L (22.0-30.0); Creatinine Clearance Estimated 80 mL/min (50-200); Estimated Glomerular Filt Rate 40 ml/min (>60); GFR (African American) 48 ML/MIN (>60); Glucose 228 mg/dl (74-100)
--- NOTE | 2019-11-23 06:54 | HMH.ANESCL ---
[facility] Anesthesia Checklist - Patient Identification Patient Identification: Arm Band, Verbal (Name & ) - Structural Data Admitted From: Inpatient Planned Operative Procedure/s: i and d left foot wound Consent for Planned Operative Procedure(s) Verified: Yes Verified Documents: History and Physical - NPO Status Verified Time NPO: 00:00 - Chart Verification Results Verified: CBC, BMP - Additional verifications Patient : No Anesthesia Reactions: No Hx Blood Transfusions: No Blood Transfusion Reaction: No Cephalosporin Allergy: No Previous Colonoscopy: No - Cardiovascular Assessment Heart Sounds: S1 & S2 Pulse Strength: Baseline Pulse Rhythm: Regular Peripheral Edema: No - Airway Assessment C-Spine Mobility Assessed: Yes TMJ Mobility Assessed: Yes - Neurological Assessment Level of Consciousness: Awake, Alert, Appropriate Hx Seizures: No Numbness or tingling in extremities: No - Anesthesia Plan Anesthesia Risk discussed: Yes Anesthesia Plan: Verified ASA Class: III Anesthesia Type: General [facility] History I have reviewed the patient's past medical history: Yes Medical History: Reports:: Anxiety, Coronary Artery Disease, Depression, Diabetes Mellitus Type 2, Gastroesophageal Reflux Disease(GERD), Hyperlipidemia, Hypertension, Migraine, Renal Disease Denies:: Cancer, Diabetes Mellitus Type 1, Internal Pacemaker, MRSA, Seizures *Have you ever received a pneumonia vaccine?: Yes *Have you received a flu vaccine this season?: Yes Other Medical History: Reports: Anemia, Arthritis. Denies: Blood Transfusion Reaction Anesthesia experience/problems:: none Laterality Cases: Left: Arthroscopy Hip, Right: Arthroscopy Knee, Carpal Tunnel Release, Bilateral: Tonsillectomy Other Surgeries: Yes: Cardiac Catheterization, , Dilation and Curettage. 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 toe on rt foot, TMA left foot) Fractures: Yes (HIP FRACTURE) - *Social History Educational Level: Completed High School Smoking Status: Current every day smoker Tobacco Type: cigarettes # Packs/Day (cigarettes): 1 Alcohol Intake: never Alcohol Intake Frequency:: other Substance Use Type: denies use *Occupational Status:: disabled Housing: house Household Members: friend(s) *Travel in the last 8 weeks: None - Psychiatric History Pschychiatric History:: Reports:: Anxiety, Depression Family Hx:: Diabetes, Hyperlipidemia, Hypertension
--- NOTE | 2019-11-23 07:01 | PC.NURSE ---
Pt off floor for surgery
--- NOTE | 2019-11-23 07:26 | HMH.PHAVTE ---
[facility] Pharm[facility] VTE Monitoring - Patient Demographics Admission date: 11/22/19 Report Date: 11/23/19 Time: 07:26 Allergies/Adverse Reactions: Patient Allergies Sulfa (Sulfonamide Antibiotics) [SULFA (SULFONAMIDE ANTIBIOTICS)] Allergy (Unknown, Verified 11/14/19 10:28) Height: 1.68 m Weight: 104.44 kg Patient Problems: Current Active Problems Gangrene of left foot (Acute) Diabetic infection of left foot (Acute) Charcot's joint of left foot (Acute) Postoperative wound dehiscence (Acute) Osteomyelitis of left foot (Acute) Xpfcv-zk-rfltnsp kidney injury (Acute) Hyperkalemia (Acute) - VTE Risk Labs: VTE Related Lab Results Hgb 11.1 g/dL (12.2-16.2) L 11/22/19 14:30 Hct 35.7 % (37.0-47.0) L 11/22/19 14:30 Plt Count 581 K/mm3 (142-424) H 11/22/19 14:30 BUN 21 mg/dl (7-17) H 11/23/19 05:13 Creatinine 1.40 mg/dl (0.52-1.04) H D 11/23/19 05:13 Estimated Creat Clear 80 mL/min (50-200) 11/23/19 05:13 Was VTE Risk Assessment Performed: Yes VTE Score: 3 VTE Risk Level: Low Risk Clinical Trial Participant: No - Prophylaxis VTE Prophylaxis Ordered?: Yes Types of VTE Prophylaxis: TEDS Knee High
--- NOTE | 2019-11-23 07:27 | HMH.OPNOTE ---
Date of procedure: 11/23/19 Pre-op Diagnosis:: 1. Left foot gas gangrene 2. Left diabetic foot infetion 3. Left post op surgical wound dehiscence 4. Left foot osteomyelitis 5. Left Charcot foot, secondary to Diabetic Neuropathy 6. Uncontrolled DM type 2 7. S/p left TMA, left tendo Achilles lengthening, left foot bone biopsy, left application of antibiotic beads, left application of posterior splint on 11/02/19 Post-op Diagnosis:: Same Procedure performed:: 1. Left foot incision and drainage 2. Left debridement of nonviable soft tissue and bone 3. Left Chopart amputation 4. Left bone biopsy Surgeon:: Isha Shipley DPM PLATE CONDITIONER:: Wally Montgomery Anesthesia: GETA, local (0.5% marcaine plain) Estimated blood loss (mL): 30 Clinical Note:: Ms. Burkett presents to the ED yesterday, with complaints of abdominal pain, left foot infection and PICC line malfunction . The patient had surgery on her left foot by my on 11/02/2019. She says her home health care nurse came today and the patient was having trouble with her PICC line, could not get the medication to infuse. When the home care nurse changed the bandage on her foot she says that they busted open a pocket of infection . The patient arrives here by ambulance. She was last seen by me, 11/14/19. Patient was scheduled for a follow up 11/21/19 and did not come. Patient was contacted with no answer. She reports that she was at [facility] yesterday for gallbladder issues. She was told she needed to have it removed . She is unsure why they did not do it yesterday or why she was not admitted. Denies fever. No change in foot pain. The previous incision is noted to have a wide dehiscence, what was not there last week. S/p: left Lisfranc disarticulation amputation, left tendo Achilles lengthening, left foot bone biopsy, left application of antibiotic beads, left application of posterior splint on 11/02/19. 11/02/19, cultures: MRSA, Strep agalactiae - (group b), Klebsiella oxytoca. Path: ulcer, cellulitis, necrosis. Patient is currently getting IV Abx via PICC. She is on IV Vanco and Invanz 1g daily. I saw the patient in ED. She was noted to have soft tissue gas infection on the left foot x-ray today. Given the wound dehiscence, malodor, necrotic tissue, x-ray findings and elevated labs, I recommended surgical debridement. Operative findings:: Previous amputation site noted with sutures and bret intact but loose and pulling through. Surgical wound dehiscence with malodorous necrotic gangrenous changes to the amputation site. Purulent discharge noted. The plantar flap dusky. Visible bone within the wound bed. Intraoperatively the cuneiforms were degenerative with cortical erosions, soft and crumbly. Navicular had a similar appearance. Chopart amp: navicular, cuneiforms and cuboid resected in total. No tracking noted past the talus. High risk for left below knee amputation. Operative note:: On this date and time patient was deemed an appropriate surgical candidate. With informed consent signed, the patient was taken to the operating theater. The patient was positioned supine. LMA anesthesia was induced. Left mid calf tourniquet used @225mmHg. The left lower extremity was prepped and draped in normal sterile fashion. Left foot incision and drainage: Attention was directed to the left foot, which was prepped and draped in a normal sterile fashion. Necrotic tissue gangrenous changes and postsurgical wound dehiscence noted with exposed bone in the wound bed. A fishmouth incision was made around the previous amputation site. Utilizing a 15 blade and forceps incision was carried down sharply to the level of the bone fully excising the necrotic tissue. Immediately 10 cc of malodorous purulent discharge was expressed. Wound culture taken. Left debridement of nonviable soft tissue and bone: The previous surgical incision site probed deeply through skin, subcu, deep fascia and to the capsule overlying the bone. Next 15 blade was used
--- NOTE | 2019-11-23 07:28 | PC.NURSE ---
LATE ENTRY - AT 0700 PT WAS TRANSFERRED OFF THE FLOOR VIA HOSPITAL BED TO OR .
--- NOTE | 2019-11-23 07:55 | HMH.PHAINT ---
HOME MEDICATION RECONCILIATION COMPLETED USING LIST FROM HOME PHARMACY
--- NOTE | 2019-11-23 08:26 | XR_ITS ---
PROCEDURE: XR FOOT LT 2V CLINICAL INDICATION: TRANSMETATARSEL AMPUTATION Follow-up amputation COMPARISON: XR FOOT WT BEARING RT 3V from 10/17/2019 XR FOOT WT BEARING LT 3V from 10/17/2019 XR FOOT LT MIN 3V from 11/02/2019 XR FOOT LT MIN 3V from 11/22/2019 FINDINGS: Fluoroscopy time: 12 seconds Fluoroscopy utilized for amputation at talocalcaneal junction Other findings:None. IMPRESSION: Status post amputation at the talocalcaneal Dictated by: Car Barnhart MD 11/23/2019 11:26 Electronically signed by Car Barnhart MD in [place] 11/23/2019 11:26
--- NOTE | 2019-11-23 09:09 | HMH.ANESI ---
[facility] Anesthesia Record Part I Intake, IV Amount: 650 Estimated blood loss (mL): 0 Urine output (mL): 0 Blood Products used (#): none Blood Pressure: 100/65 SaO2: 92 Pulse Rate: 84 Respiratory Rate: 20 Temperature: 97.3 F Patient is:: Drowsy, Nasal O2, Stable Stable to PACU at:: 09:05
--- NOTE | 2019-11-23 09:10 | XR_ITS ---
PROCEDURE: XR FOOT LT MIN 3V CLINICAL INDICATION: post op amp Follow-up amputation COMPARISON: XR FOOT WT BEARING RT 3V from 10/17/2019 XR FOOT LT MIN 3V from 11/02/2019 XR FOOT LT MIN 3V from 11/22/2019 XR FOOT LT 2V from 11/23/2019 FINDINGS: Status post further amputation at the talocalcaneal junction with interval removal of the navicular and cuneiforms and cuboid. Skin clips and surgical drain is noted. IMPRESSION: Interval amputation at the talocalcaneal junction Dictated by: Car Barnhart MD 11/23/2019 11:25 Electronically signed by Car Barnhart MD in [place] 11/23/2019 11:25
[2019-11-23 09:35] LABS: POC Glucose,Bedside 196 (70-110)
--- NOTE | 2019-11-23 11:14 | HMH.ANESII ---
[facility] Anesthesia Record Part II Discharge Time: 09:35 Destination: Medical Surgical Department PACU nurse assessment reviewed?: Yes Patient Condition:: Good Anesthesia Complications:: None Swallowing reflex intact?: Yes Cyanosis?: No Blood Pressure: 150/80 Pulse Rate: 81 Temperature: 97.8 F Mental Status: Alert & Oriented Pain level:: 0 Nausea and/or vomitting:: None Intake, IV Amount: 25
--- NOTE | 2019-11-23 14:01 | SUR.PHASEI ---
[id number], [facility] per [facility] on OCT. 5 units SQ given per MAR.
--- NOTE | 2019-11-23 15:02 | HMH.ACPN2 ---
Internal Medicine - PN: Subj *Date: 11/23/19 *Time: 15:02 Interval history: Examined patient post -op this pm... eating well... no pain... OR note reviewed. Exam Vital signs and Labs for Last 24 Hours: Temp Pulse Resp BP Pulse Ox 97.9 F 83 16 128/74 95 11/23/19 13:45 11/23/19 13:45 11/23/19 13:45 11/23/19 13:45 11/23/19 13:45 Laboratory Results - last 24 hr 11/22/19 14:30: ESR 86 H 11/22/19 14:55: Urine Color Yellow, Urine Appearance Clear, Urine pH 6.5, Ur Specific [place] 1.020, Urine Protein Trace, Urine Glucose (UA) 3+, Urine Ketones Negative, Urine Blood 1+, Urine Nitrate Negative, Urine Bilirubin Negative, Urine Urobilinogen 0.2, Ur Leukocyte Esterase Negative, Urine WBC 3-5, Ur Squamous Epith Cells 3-5, Urine Bacteria Trace 11/22/19 16:41: POC Glucose 361 H* 11/22/19 17:20: Potassium 4.7 D 11/22/19 20:45: POC Glucose 319 H* 11/23/19 04:56: POC Glucose 223 H 11/23/19 05:13: Sodium 136, Potassium 4.9, Chloride 103, Carbon Dioxide 26, Anion Gap 11.9, BUN 21 H, Creatinine 1.40 H D, Estimated Creat Clear 80, Estimated GFR 40 L, Est GFR ( Amer) 48 L D, Glucose 228 H D, Calcium 8.4 11/23/19 09:12: POC Glucose 196 H I & O for Last 24 hours: Intake & Output 11/21/19 11/22/19 11/23/19 11/24/19 11:59 11:59 11:59 11:59 Intake Total 831 / 831 240 / 240 Balance 831 / 831 240 / 240 Weight 230 lb 4 oz - *Routine HEENT Exam Head: Present: normocephalic Eye: Present: EOMI, PERRL ENT: Present: mucous membranes moist - *Routine Neck Exam Present: supple. Absent: lymphadenopathy - *Routine Respiratory Exam Present: CTA bilaterally - *Routine Cardiovascular Exam Present: RRR - *Routine Abdominal Exam Present: soft, normoactive bowel sounds. Absent: tenderness - *Routine Extremities Exam Comments: See DPM notes - *Routine Neurological Exam Present: alert, oriented X3 Assessment and Plan (1) Gangrene of left foot Current visit: Yes Status: Acute Category: Medical Code(s): I96 - Gangrene, not elsewhere classified (2) Diabetic infection of left foot Current visit: Yes Status: Acute Category: Medical Code(s): E11.628 - Type 2 diabetes mellitus with other skin complications; L08.9 - Local infection of the skin and subcutaneous tissue, unspecified (3) Charcot's joint of left foot Current visit: Yes Status: Acute Category: Medical Code(s): M14.672 - Charcot's joint, left ankle and foot (4) Postoperative wound dehiscence Current visit: Yes Status: Acute Category: Medical Code(s): T81.31XA - Disruption of external operation (surgical) wound, not elsewhere classified, initial encounter (5) Osteomyelitis of left foot Current visit: Yes Status: Acute Category: Medical Code(s): M86.9 - Osteomyelitis, unspecified (6) Diabetes mellitus, insulin dependent (IDDM), uncontrolled Current visit: No Status: Chronic Qualifiers: Glycemic state: with hyperglycemia Qualified Code(s): E10.65 - Type 1 diabetes mellitus with hyperglycemia Category: Medical Code(s): E10.65 - Type 1 diabetes mellitus with hyperglycemia (7) Gas gangrene of foot Current visit: No Status: Acute Category: Medical Code(s): A48.0 - Gas gangrene (8) Status post transmetatarsal amputation of left foot Current visit: No Status: Acute Category: Surgical Code(s): Z89.432 - Acquired absence of left foot (9) Tobacco use Current visit: No Status: Acute Category: Social Hx Code(s): Z72.0 - Tobacco use (10) Edema of left lower extremity Current visit: No Status: Chronic Category: Medical Code(s): R60.0 - Localized edema (11) Obesity, Class II, BMI 35-39.9 Current visit: No Status: Chronic Category: Medical Code(s): E66.9 - Obesity, unspecified (12) Xknel-gh-tbtjyzh kidney injury Current visit: Yes Status: Acute Qualifiers: Chronic kidney disease stage: stage 3 (moderate) Category: Medical Code(s): N17.9 -
[2019-11-23 16:06] LABS: POC Glucose,Bedside 245 (70-110)
--- NOTE | 2019-11-23 16:44 | PC.NURSE ---
Pt is post-op from a LT foot debridement/amputation. Pt has had frequent complaints of pain and has been medicated per MAR with favorable results. Pt was severely nauseated upon arrival to unit and medicated with PO phenergan. Pt continued to have nausea and an episode of vomiting. IV Zofran was ordered per Dr. Teran. No complaints of nausea or vomiting since Zofran administration. VSS. Call light within reach. Will continue to monitor.
--- NOTE | 2019-11-23 19:34 | PC.NURSE ---
Report given to oncoming nurse: Stephen Meadows RN. LT foot JOSE M drain assessed at this time and tucked into outer layer of TOREY wrap.
[2019-11-23 21:59] LABS: POC Glucose,Bedside 211 (70-110)
[2019-11-24] VITALS: BP 149/73; PULSE 100; PULSE 103; RESP 18; TEMP 36.7; O2SAT 95
[2019-11-24 04:00] VITALS: BP 131/77; PULSE 100; PULSE 102; RESP 18; TEMP 36.9; O2SAT 94
--- NOTE | 2019-11-24 04:06 | PC.NURSE ---
Pt's main issue this shift was pain. PRN pain med only lasting for approximately 2 1/2 hours, supplemented with Tylenol but pt tearful occasionally reporting, Pain is a burning feeling and it's bad. Rated pain 10 out of 10, going down to an 8 on 1/2 hour check. It's an 8 now, it's going down gradually. Attempted additional pain relief measures; elevated foot/leg on two pillows, elevated foot of bed, distraction with conversation. Pt is friendly, talkative and participates in POC. Bathed in earlier shift, vitals remain close in number, call light w/i reach, monitoring continues.
[2019-11-24 05:10] VITALS: BMI 37.6
[2019-11-24 05:51] LABS: POC Glucose,Bedside 177 (70-110)
[2019-11-24 05:52] LABS: Basophils # 0.1 K/mm3 (0-0.2); Basophils % 0.7 % (0.1-2.0); Eosinophils # 0.2 K/mm3 (0.0-0.4); Eosinophils % 1.7 % (0.1-12.0); Hematocrit 27.9 % (37.0-47.0); Hemoglobin 8.5 g/dL (12.2-16.2); Lymphocytes # 2.1 K/mm3 (0.7-4.5); Lymphocytes % 18.6 % (10-50); Mean Corpuscular HGB Conc 30.3 g/dL (31.8-35.4); Mean Corpuscular Hemoglobin 25.3 pg (27.0-31.2); Mean Corpuscular Volume 83.6 fl (81-99); Monocytes # 0.6 K/mm3 (0.1-1.0); Monocytes % 5.2 % (1.7-9.3); Neutrophils # 8.4 K/mm3 (1.8-7.8); Neutrophils % 73.9 % (37.0-80.0); Platelet Count 488 K/mm3 (142-424); Red Blood Count 3.34 M/mm3 (4.20-5.40); Red Cell Distribution Width 15.1 % (11.5-17.5); White Blood Count 11.4 K/mm3 (4.8-10.8)
[2019-11-24 05:55] LABS: Chloride 105 mmol/L (98-107); Potassium 4.6 mmoL/L (3.5-5.1); Sodium 137 mmol/L (136-145)
[2019-11-24 05:57] LABS: Blood Urea Nitrogen 18 mg/dl (7-17); Creatinine Clearance Estimated 88 mL/min (50-200); Estimated Glomerular Filt Rate 44 ml/min (>60); GFR (African American) 53 ML/MIN (>60)
[2019-11-24 05:58] LABS: Alanine Aminotransferase 12 U/L (12-78); Alkaline Phosphatase 119 U/L (38-126); Anion Gap 11.6 mEq/L (5-15); Aspartate Amino Transferase 16 U/L (14-36); Bilirubin,Total 0.2 mg/dl (0.2-1.3); Carbon Dioxide 25 mmol/L (22.0-30.0)
[2019-11-24 05:59] LABS: Calcium 8.1 mg/dl (8.4-10.2); Glucose 171 mg/dl (74-100)
--- NOTE | 2019-11-24 07:31 | HMH.ACPN2 ---
Internal Medicine - PN: Subj *Date: 11/24/19 *Time: 08:46 Interval history: 49-year-old female with revision of foot amputation performed yesterday. Tolerated procedure well. Complaining of burning pain this morning but otherwise stable. Denies shortness of breath, nausea, vomiting. Glucose stable on current regimen. Podiatry changing dressing on exam this morning. JOSE M in place with scant bloody discharge. Overall foot looks better since revision yesterday. Tolerating antibiotics. Podiatry continues to follow along. Exam Vital signs and Labs for Last 24 Hours: Temp Pulse Resp BP Pulse Ox 98.5 F 102 H 18 131/77 94 L 11/24/19 04:00 11/24/19 04:00 11/24/19 04:00 11/24/19 04:00 11/24/19 04:00 Laboratory Results - last 24 hr 11/23/19 09:12: POC Glucose 196 H 11/23/19 15:56: POC Glucose 245 H 11/23/19 20:26: POC Glucose 211 H 11/24/19 05:23: POC Glucose 177 H 11/24/19 05:40: WBC 11.4 H D, RBC 3.34 L, Hgb 8.5 L, Hct 27.9 L, MCV 83.6, MCH 25.3 L, MCHC 30.3 L, RDW 15.1, Plt Count 488 H, MPV 8.0, Neut % (Auto) 73.9, Lymph % (Auto) 18.6, [place] % (Auto) 5.2, Eos % (Auto) 1.7, Baso % (Auto) 0.7, Neut # (Auto) 8.4 H, Lymph # (Auto) 2.1, [place] # (Auto) 0.6, Eos # (Auto) 0.2, Baso # (Auto) 0.1 11/24/19 05:40: Sodium 137, Potassium 4.6, Chloride 105, Carbon Dioxide 25, Anion Gap 11.6, BUN 18 H, Creatinine 1.30 H, Estimated Creat Clear 88, Estimated GFR 44 L, Est GFR ( Amer) 53 L, Glucose 171 H, Calcium 8.1 L, Total Bilirubin 0.2, AST 16, ALT 12, Alkaline Phosphatase 119, Total Protein 6.0 L, Albumin 3.0 L, Globulin 3.0, Albumin/Globulin Ratio 1.0 L I & O for Last 24 hours: Intake & Output 11/21/19 11/22/19 11/23/19 11/24/19 23:59 23:59 23:59 23:59 Intake Total 156 / 156 2781 / 2781 1149 / 1149 Output Total 925 / 1225 800 / 800 Balance 156 / 156 1856 / 1556 349 / 349 Weight 103.136 kg 104 kg 106.169 kg Microbiology Reports for the Last 24 Hours: Microbiology 11/23/19 07:48 Foot,Left - Wound Gram Stain - Final Narrative: - Constitutional no acute distress, obese, Appears older than stated age - *Routine HEENT Exam Head: Present: normocephalic, hirsutism Eye: Present: EOMI, PERRL ENT: Present: mucous membranes moist, Edentulous - *Routine Neck Exam Present: supple. Absent: lymphadenopathy - *Routine Respiratory Exam Present: CTA bilaterally. Absent: wheezes, crackles - *Routine Cardiovascular Exam Present: RRR - *Routine Abdominal Exam Present: soft, normoactive bowel sounds. Absent: tenderness - *Routine Extremities Exam Absent: cyanosis, clubbing, edema Comments: Left foot with clean surgical incision, Lisfranc amputation. Wound healthy and pink. JOSE M in place with scant bloody drainage. - *Routine Skin Exam Present: warm. Absent: rash - *Routine Neurological Exam Present: alert, oriented X3 Assessment and Plan (1) Gangrene of left foot Current visit: Yes Status: Acute Category: Medical Code(s): I96 - Gangrene, not elsewhere classified (2) Diabetic infection of left foot Current visit: Yes Status: Acute Category: Medical Code(s): E11.628 - Type 2 diabetes mellitus with other skin complications; L08.9 - Local infection of the skin and subcutaneous tissue, unspecified (3) Charcot's joint of left foot Current visit: Yes Status: Acute Category: Medical Code(s): M14.672 - Charcot's joint, left ankle and foot (4) Postoperative wound dehiscence Current visit: Yes Status: Acute Category: Medical Code(s): T81.31XA - Disruption of external operation (surgical) wound, not elsewhere classified, initial encounter (5) Osteomyelitis of left foot Current visit: Yes Status: Acute Category: Medical Code(s): M86.9 - Osteomyelitis, unspecified (6) Diabetes mellitus, insulin dependent (IDDM), uncontrolled Current visit: No Status: Chronic Qualifiers: Glycemic state: with hyperglycemia Qualified Code(s): E10.65 - Type 1 diabe
[2019-11-24 08:00] VITALS: BP 129/66; PULSE 80; PULSE 97; RESP 18; TEMP 36.8; O2SAT 96
--- NOTE | 2019-11-24 10:55 | HMH.ORTHPN ---
Subjective Date: 11/24/19 <Ethel Schwartz - 11/24/19 11:16> Time: 07:30 <Ethel Schwartz - 11/24/19 11:16> Principal diagnosis: Left foot gas gangrene <Ethel Schwartz 11/24/19 11:16> Interval history: 49 yr. old patient is S/P surgery 11.23.19 Procedure performed:: Left foot incision and drainage, Left debridement of nonviable soft tissue and bone, Left Lisfranc disarticulation/amputation, Left bone biopsy. Patient doing well this morning, states had some pain in the night. Dressing has some small amount of visible drainage noted onto the kerlix. Foot was elevated up on a pillow. JOSE drain in place. Patient denies any nausea, vomiting or fever. Patient tolerating her IV antibiotics well. Patient had just finished eating her breakfast. Dr. Alana Wasserman during our dressing change he was able to visualize the surgical site. <Ethel Schwartz - 11/24/19 11:16> PN: Obj Ex Vital signs: Temp Pulse Resp BP Pulse Ox 98.1 F 102 H 18 156/71 H 93 L 11/24/19 12:00 11/24/19 12:00 11/24/19 12:00 11/24/19 12:00 11/24/19 12:00 <Isha Shipley - 11/24/19 14:35> Temp Pulse Resp BP Pulse Ox 98.2 F 97 H 18 129/66 96 11/24/19 08:00 11/24/19 08:00 11/24/19 08:00 11/24/19 08:00 11/24/19 08:00 <Ethel Schwartz - 11/24/19 11:16> - Constitutional no acute distress <Ethel Schwartz - 11/24/19 11:16> - Routine HEENT Exam Head: Present: normocephalic <Ethel Schwartz - 11/24/19 11:16> Eye: Present: PERRL <Ethel Schwartz - 11/24/19 11:16> ENT: Present: mucous membranes moist <Ethel Schwartz - 11/24/19 11:16> - Routine Neck Exam Present: supple, full ROM <Ethel Schwartz 11/24/19 11:16> - Routine Respiratory Exam Absent: respiratory distress <Ethel Schwartz 11/24/19 11:16> - Routine Cardiovascular Exam Present: RRR <Ethel Schwartz 11/24/19 11:16> - Routine Abdominal Exam Present: soft <Ethel Schwartz 11/24/19 11:16> - Routine Extremities Exam Present: clubbing, edema, amputation <Ethel Schwartz 11/24/19 11:16> - Detailed Lower Extremity Exam Top foot image: 1 - Procedure performed:: 11/23/2019. Left foot incision and drainage, Left debridement of nonviable soft tissue and bone, Left Lisfranc disarticulation/amputation, Left bone biopsy. Jose drain in place. Sutures and bret are intact. Overall the site looks much better. *Dressing change: xeroform over the suture line, Betadine soaked 4x4, dry 4x4, kerlix, soft roll and eliseo wrap. <Ethel Schwartz 11/24/19 11:16> - Routine Back/Spine/Pelvis Exam Back/Spine: Present: full ROM <Ethel Schwartz 11/24/19 11:16> - Routine Skin Exam Present: erythema, dry <Ethel Schwartz 11/24/19 11:16> - Routine Neurological Exam Present: oriented X3 <Ethel Schwartz 11/24/19 11:16> - Routine Psychiatric Exam Present: normal affect, cooperative <Ethel Schwartz 11/24/19 11:16> Progress Note: A&P (1) Gangrene of left foot Status: Acute Current Visit: Yes (2) Diabetic infection of left foot Status: Acute Current Visit: Yes (3) Charcot's joint of left foot Status: Acute Current Visit: Yes (4) Postoperative wound dehiscence Status: Acute Current Visit: Yes (5) Osteomyelitis of left foot Status: Acute Current Visit: Yes (6) Diabetes mellitus, insulin dependent (IDDM), uncontrolled Status: Chronic Current Visit: No (7) Gas gangrene of foot Status: Acute Current Visit: No (8) Status post transmetatarsal amputation of left foot Status: Acute Current Visit: No (9) Tobacco use Status: Acute Current Visit: No (10) Edema of left lower extremity Status: Chronic Current Visit: No (11) Obesity, Class II, BMI 35-39.9 Status: Chronic Current Visit: No (12) Uxndl-kc-rohxmkc kidney injury Status: Acute Current Visit: Yes (13) Hyperkalemia Status: Ac
--- NOTE | 2019-11-24 11:04 | HMH.PTEV ---
Physical Therapy Evaluation Rehab PT IP Evaluation Start: 11/23/19 09:07 Freq: ONCE Status: Active Protocol: Document 11/24/19 10:59 PWSEAN (Rec: 11/24/19 11:04 PWESAN [id number]) Subjective/History History History This is the initial IP PT evaluation for Carla Burkett. Pt is a 49 y/o female admitted to [facility] for gangrene in L foot due to non-healing wound on L foot due to severe diabetes. Pt reports her neuropathy was so bad she did not feel her puppy chewing on her toes which started the wound. Pt was admitted through ER and had Lisfranc amputation . Subjective Subjective No complaints from pt. Pt reprots she has walker and knee scooter at home Rehab PT IP Eval Objective Appearance Patient Behavior Appropriate,Cooperative Patient Orientation Person,Place,Time Difficulty following instructions none Speech Pattern Clear,Appropriate Ambulation Patient Able to Ambulate Yes Ambulation Observation IP General Gait Pattern Observation Decrease Weight Bear (L) Ambulation Distance (feet) 35 Ambulation Assistive Device Rolling Walker Ambulation Ability Supervision/Stand by Balance Ability to Arise Able, uses arms to help Sitting Balance Steady, safe Standing Balance Steady, wide stance Dynamic Sitting Balance Ability Normal Dynamic Standing Balance Ability Poor Transfers Bed Transfer Ability Independent Chair Transfer Ability Independent Sit to Stand Bed Transfer Ability Supervision/Stand by Sit to Stand Chair Transfer Ability Supervision/Stand by Rehab PT IP prob,goals,plan Problems Date of Evaluation: 11/24/19 Rehab Potential Rehab Potential Good Equipment Needs Assistive Devices Rolling / Wheeled Walker Discharge Plan PT Discharge Plan Pt to dc to home w/ support, use walker and knee scooter for motivation. Pt safe to DC w/ HHfor dressing change. G -code Required No Eval Complexity Eval Charge Codes 91624 - Low Complexity PHYSICIAN CERTIFICATION: I certify the specified therapy services for Carla Burkett are required, authorized, and reviewed every 30 days.
--- NOTE | 2019-11-24 11:16 | SW/DCPLANNER ---
Addendum entered by Dunia Sharma 11/24/19 15:07: Danitza from [facility] of has stated that patient information has been received and services will resume for IV antibiotics and wound care tomorrow. Addendum entered by Dunia Sharma 11/24/19 13:45: I have spoke with Annemarie from [employer] and she has stated that patient information has been received and they will deliver medication to patients house this evening. Annemarie has stated they have an order recently for same medication and will work cost and delivery out with patient. Patient information has also been faxed to [facility]. Original Note: I have spoke with this patient regarding discharge plans. Patient stated that she lives with a friend that assist her at home with all of her ADLs. Patient stated that she had [facility] prior to being admitted to [facility] for IV antibiotics (already has a PICC) and dressing changes. Patient also has a wheel chair, walker and knee scooter at home. PT has evaluated this patient today and stated that she is safe to return home with home health. Dr Shipley has requested that patient continue IV Invanz and Vanc till 01/11/2020. I will fax patient information to [email or web address] for out of pocket cost and will also fax patient information to [facility] regarding dressing changes and IV antibiotics. Patient may discharge home later today per Violetta.
[2019-11-24 11:37] LABS: POC Glucose,Bedside 248 (70-110)
[2019-11-24 12:00] VITALS: BP 156/71; PULSE 102; PULSE 90; RESP 18; TEMP 36.7; O2SAT 93
[2019-11-24 13:23] LABS: Vancomycin,Trough 13.3 ug/mL (5.0-10.0)
--- NOTE | 2019-11-24 13:33 | HMH.PHACONS ---
- Pharmacy Consult Allergies and ADEs:: Allergies Allergy/AdvReac Type Severity Reaction Status Date / Time Sulfa (Sulfonamide Allergy Unknown Verified 11/14/19 10:28 Antibiotics) [SULFA (SULFONAMIDE ANTIBIOTICS)] Home Medications:: Home Medications Medication Instructions Recorded Confirmed Type Isosorbide Mononitrate [Imdur 30mg 30 mg PO DAILY 05/12/18 11/22/19 History ER tablet] gabapentin 600 mg tablet 600 mg PO TID #90 tab 12/20/18 11/22/19 History galcanezumab-gnlm 120 mg/mL 120 mg SQ QMONTH 30 Days #1 ml 12/20/18 11/22/19 Rx subcutaneous pen injector atorvastatin 40 mg tablet 40 mg PO DAILY tab 09/26/19 11/22/19 History carvedilol 3.125 mg tablet 1.56 mg PO BID tab 09/26/19 11/23/19 History furosemide 40 mg tablet 20 mg PO DAILYP PRN #30 tab 09/26/19 11/22/19 History levocetirizine 5 mg tablet 5 mg PO DAILY tab 09/26/19 11/22/19 History pantoprazole 40 mg tablet,delayed 40 mg PO DAILY tab 09/26/19 11/22/19 History release insulin glargine 100 unit/mL (3 65 unit SQ HS ml 10/24/19 11/23/19 History mL) subcutaneous pen insulin lispro 100 unit/mL 14 unit SQ TID ml 10/24/19 11/22/19 History subcutaneous pen lisinopril 10 mg tablet 10 mg PO DAILY tab 10/24/19 11/22/19 History semaglutide 0.25 mg SQ WEEKLY ml 10/24/19 11/23/19 History tizanidine 4 mg tablet 4 mg PO HS tab 10/24/19 11/23/19 History clopidogrel 75 mg tablet 75 mg PO DAILY #30 tab 11/03/19 11/22/19 Rx ciprofloxacin HCl 500 mg tablet 500 mg PO BID 21 Days #42 tab 11/10/19 11/22/19 Rx Aspirin [Low Dose Aspirin EC] 81 mg PO DAILY 11/14/19 11/22/19 History L.acidoph,Paracasei, B.lactis 1 each PO DAILY 11/14/19 11/22/19 History [Probiotic] Metoclopramide HCl [Reglan 5mg 5 mg PO ACHS 11/14/19 11/22/19 History Tablet] Promethazine HCl [Phenergan 25mg 25 mg PO Q4HP PRN 11/14/19 11/22/19 History tab] Vancomycin/Water For Inj (Peg) 2 gm IV DAILY 11/14/19 11/22/19 History [Vancomycin 2 Gram/400 ml Bag] Venlafaxine HCl [Effexor XR 75mg 75 mg PO DAILY 11/14/19 11/22/19 History capsule] Height: 1.68 m Weight: 106.169 kg Laboratory Results:: Laboratory Results - last 24 hr 11/23/19 15:56: POC Glucose 245 H 11/23/19 20:26: POC Glucose 211 H 11/24/19 05:23: POC Glucose 177 H 11/24/19 05:40: WBC 11.4 H D, RBC 3.34 L, Hgb 8.5 L, Hct 27.9 L, MCV 83.6, MCH 25.3 L, MCHC 30.3 L, RDW 15.1, Plt Count 488 H, MPV 8.0, Neut % (Auto) 73.9, Lymph % (Auto) 18.6, Rapides % (Auto) 5.2, Eos % (Auto) 1.7, Baso % (Auto) 0.7, Neut # (Auto) 8.4 H, Lymph # (Auto) 2.1, Rapides # (Auto) 0.6, Eos # (Auto) 0.2, Baso # (Auto) 0.1 11/24/19 05:40: Sodium 137, Potassium 4.6, Chloride 105, Carbon Dioxide 25, Anion Gap 11.6, BUN 18 H, Creatinine 1.30 H, Estimated Creat Clear 88, Estimated GFR 44 L, Est GFR ( Amer) 53 L, Glucose 171 H, Calcium 8.1 L, Total Bilirubin 0.2, AST 16, ALT 12, Alkaline Phosphatase 119, Total Protein 6.0 L, Albumin 3.0 L, Globulin 3.0, Albumin/Globulin Ratio 1.0 L 11/24/19 11:06: POC Glucose 248 H 11/24/19 12:45: Vancomycin Trough 13.3 H Medical History: Reports:: Anxiety, Coronary Artery Disease, Depression, Diabetes Mellitus Type 2, Gastroesophageal Reflux Disease(GERD), Hyperlipidemia, Hypertension, Migraine, Renal Disease Denies:: Cancer, Diabetes Mellitus Type 1, Internal Pacemaker, MRSA, Seizures Assessment and Plan (1) Gangrene of left foot Current visit: Yes Status: Acute Category: Medical Code(s): I96 - Gangrene, not elsewhere classified (2) Diabetic infection of left foot Current visit: Yes Status: Acute Category: Medical Code(s): E11.628 - Type 2 diabetes mellitus with other skin complications; L08.9 - Local infection of the skin and subcutaneous tissue, unspecified (3) Charcot's joint of left foot Current visit: Yes Status: Acute Category: Medical Code(s): M14.672 - Charcot's joint, left ankle and foot (4) Postoperative wound dehiscence Current visit: Yes Status: Acu
--- NOTE | 2019-11-24 13:54 | HMH.DCSUM ---
General - General Admission date:: 11/22/19 Discharge date: 11/24/19 HPI HPI: 49-year-old female with recent admission for transmetatarsal amputation of her left foot due to uncontrolled diabetes and osteomyelitis. Procedure performed November 01. Patient has had home health and continued IV antibiotics through a PIC in her left arm. Unfortunately she has developed necrosis of the distal tissue at surgical incision with recurrence of infection. Was brought to the ER at the request of her home health nurse when debbie purulent material expressed from her foot today and there was difficulty administering antibiotics through her picc in her left upper extremity. On presentation she was found to have worsening kidney function from baseline, elevated potassium, elevated inflammatory markers, and debbie dehiscence of her wound on her foot. PICC line was cleared in the ER and flows freely at this time. Podiatry was consulted, requested patient be admitted with continued IV antibiotics. Imaging concerning for new development of gas in the foot. Admitted to medicine for further management and care of comorbidities. Plan for surgery in the morning pending improvement in her hyperkalemia. Patient denies significant pain, fever, nausea, vomiting. Has been taking her IV antibiotics as prescribed for her report. Takes her insulin as prescribed most days. Has had significant elevation in glucose per her report with morning glucoses greater than 200 and highs in the 3-400s at home. Patient's vascular status complicated by her tobacco use history. Hospital Course Hospital Course: Admitted for dehiscence and recurrent infection in left foot with concern for gangrene. Patient taken back to the OR for revision of amputation of left foot. Lisfranc amputation performed. Patient tolerated procedure well. Reassessed by podiatry on the day after surgery with good appearance of incision, healthy looking tissue. Wound redressed. Patient established with home health, continue antibiotics including ertapenem and vancomycin through 01/11/2020. Plan to follow-up closely with podiatry. Patient instructed to follow-up with her primary care within 1 to 2 weeks to address chronic conditions. Medicine manage chronic problems including her diabetes, hypertension, neuropathy using home regimen and sliding scale insulin. Resume home medications at time of discharge. Objective Vital signs: Temp Pulse Resp BP Pulse Ox 98.1 F 102 H 18 156/71 H 93 L 11/24/19 12:00 11/24/19 12:00 11/24/19 12:00 11/24/19 12:00 11/24/19 12:00 Narrative: - Constitutional no acute distress, obese, Appears older than stated age - *Routine HEENT Exam Head: Present: normocephalic, hirsutism Eye: Present: EOMI, PERRL ENT: Present: mucous membranes moist, Edentulous - *Routine Neck Exam Present: supple. Absent: lymphadenopathy - *Routine Respiratory Exam Present: CTA bilaterally. Absent: wheezes, crackles - *Routine Cardiovascular Exam Present: RRR - *Routine Abdominal Exam Present: soft, normoactive bowel sounds. Absent: tenderness - *Routine Extremities Exam Absent: cyanosis, clubbing, edema Comments: Left foot with clean surgical incision, Lisfranc amputation. Wound healthy and pink. JOSE M in place with scant bloody drainage. - *Routine Skin Exam Present: warm. Absent: rash - *Routine Neurological Exam Present: alert, oriented X3 Results Labs on day of discharge: Labs from last 24 hours 11/24/19 11/24/19 11/24/19 12:45 11:06 05:40 WBC RBC Hgb Hct MCV MCH MCHC RDW Plt Count MPV Neut % (Auto) Lymph % (Auto) [place] % (Auto) Eos % (Auto) Baso % (Auto) Neut # (Auto) Lymph # (Auto) [place] # (Auto) Eos # (Auto) Baso # (Auto) Sodium 137 Potassium 4.6 Chloride 105 Carbon Dioxide 25 Anion Gap 11.6 BUN 18 H Creatinine 1.30 H Estimated
[2019-11-24 16:00] VITALS: BP 145/68; PULSE 100; PULSE 92; RESP 16; TEMP 36.6; O2SAT 95
--- NOTE | 2019-11-24 16:09 | HMH.PHAINT ---
DISCHARGE COUNSELING COMPLETE. SPOKE WITH PATIENT ABOUT STOPPING THE CIPRO AND ADDITION OF INVANZ. PATIENT ENDORSED NO QUESTIONS AT THAT TIME.
[2019-11-24 16:55] LABS: POC Glucose,Bedside 217 (70-110)
== END 2019-11-24 17:32 | disposition home health service (06) | DRG 240 ==
LOC: ER 15:37 → 2ND 16:41
PROVIDERS: Podiatrist; Admitting Provider Internal Medicine Adolescent Medicine; Emergency Provider Emergency Medicine; PCP Internal Medicine Adolescent Medicine; Visit Provider Internal Medicine Adolescent Medicine
PROC: 0Y6N0Z0 Detachment at Left Foot, Complete, Open Approach (ICD-10-PCS; principal; 2019-11-23 07:30)
DX: E11.52 Type 2 diabetes mellitus with diabetic peripheral angiopathy with gangrene (principal); M86.172 Other acute osteomyelitis, left ankle and foot; N17.9 Acute kidney failure, unspecified; E11.610 Type 2 diabetes mellitus with diabetic neuropathic arthropathy; T87.81 Dehiscence of amputation stump; E11.69 Type 2 diabetes mellitus with other specified complication; E11.65 Type 2 diabetes mellitus with hyperglycemia; I12.9 Hypertensive chronic kidney disease with stage 1 through stage 4 chronic kidney disease, or unspecified chronic kidney disease; E11.22 Type 2 diabetes mellitus with diabetic chronic kidney disease; N18.9 Chronic kidney disease, unspecified; Z72.0 Tobacco use; Z79.4 Long term (current) use of insulin; Z79.899 Other long term (current) drug therapy
CPT/HCPCS: 28800; 71045; 73620; 73630; 76000; 80048; 80053; 80202; 81001; 82962; 83605; 84132; 85025; 85651; 86140; 87040; 87070; 87075; 87205; 88305; 88311; 93005; 96365; 96366; 96375; 97161; 99285; J1335; J2405; J2543; J3370

== ENCOUNTER → 2019-12-06 13:50 | Outpatient (CLI) | payer MEDICARE, MEDICAID, SELFPAY | PROVIDERS: Visit Provider Podiatrist | DX: Z98.890 Other specified postprocedural states (principal) | CPT/HCPCS: 87070; 87205 ==

== ENCOUNTER → 2019-12-14 10:26 | Outpatient (CLI) | payer MEDICARE, MEDICAID, SELFPAY ==
--- NOTE | 2019-12-14 10:33 | XR_ITS ---
PROCEDURE: XR TIBIA FIBULA LT 2V CLINICAL INDICATION: evalute for infection Pain redness and swelling COMPARISON: No exams were available for comparison FINDINGS: No fracture, dislocation, lytic change, or blastic change evident. No significant degenerative change IMPRESSION: No acute findings. Dictated by: Car Barnhart MD 12/14/2019 11:38 Electronically signed by Car Barnhart MD in [place] 12/14/2019 11:38
== END ==
PROVIDERS: PCP Nurse Practitioner Family; Visit Provider Orthopaedic Surgery
DX: M79.605 Pain in left leg (principal)
CPT/HCPCS: 73590

== ENCOUNTER → 2019-12-28 10:10 | Outpatient (CLI) | payer MEDICARE, MEDICAID, SELFPAY ==
[2019-12-28 11:33] LABS: Basophils # 0.1 K/mm3 (0-0.2); Basophils % 0.5 % (0.1-2.0); Eosinophils # 0.3 K/mm3 (0.0-0.4); Eosinophils % 3.3 % (0.1-12.0); Hematocrit 35.1 % (37.0-47.0); Lymphocytes # 2.2 K/mm3 (0.7-4.5); Lymphocytes % 22.1 % (10-50); Mean Corpuscular HGB Conc 31.2 g/dL (31.8-35.4); Mean Corpuscular Hemoglobin 24.1 pg (27.0-31.2); Mean Corpuscular Volume 77.2 fl (81-99); Mean Platelet Volume 8.4 fl (7.4-10.4); Monocytes # 0.3 K/mm3 (0.1-1.0); Neutrophils % 71.1 % (37.0-80.0); Platelet Count 357 K/mm3 (142-424); Red Blood Count 4.55 M/mm3 (4.20-5.40); Red Cell Distribution Width 17.4 % (11.5-17.5); White Blood Count 9.8 K/mm3 (4.8-10.8)
[2019-12-28 11:35] LABS: INR 0.99 (0.9-1.1); Prothrombin Time 10.3 seconds (9.4-11.8)
[2019-12-28 12:14] LABS: Coronavirus 19 IgG Antibody Negative (Negative); Coronavirus 19 IgM Antibody Negative (Negative)
[2019-12-28 12:59] LABS: Alanine Aminotransferase 16 U/L (12-78); Albumin/Globulin Ratio 1.3 (1.1-1.8); Alkaline Phosphatase 150 U/L (38-126); Anion Gap 13.4 mEq/L (5-15); Aspartate Amino Transferase 27 U/L (14-36); Bilirubin,Total 0.3 mg/dl (0.2-1.3); Blood Urea Nitrogen 27 mg/dl (7-17); Calcium 9.2 mg/dl (8.4-10.2); Carbon Dioxide 23 mmol/L (22.0-30.0); Chloride 107 mmol/L (98-107); Estimated Glomerular Filt Rate 32 ml/min (>60); GFR (African American) 39 ML/MIN (>60); Glucose 101 mg/dl (74-100); Potassium 5.4 mmoL/L (3.5-5.1); Sodium 138 mmol/L (136-145)
[2019-12-29 10:48] LABS: C-Reactive Protein 6.6 mg/L (0-4)
== END ==
PROVIDERS: Visit Provider Orthopaedic Surgery
DX: Z79.899 Other long term (current) drug therapy (principal); Z79.01 Long term (current) use of anticoagulants
CPT/HCPCS: 36415; 80053; 83036; 85025; 85610; 86140; 86328

== ENCOUNTER 2019-12-29 18:45 | Inpatient (IN) | payer MEDICARE, MEDICAID, SELFPAY ==
--- NOTE | 2019-12-27 09:12 | SUR.PREOP ---
12/27/2019 @ 0915--PHONE CALL MADE TO PATIENT. PATIENT UNDERSTANDS THAT LAB WORK AND COVID TESTING NEEDS TO BE COMPLETED @ 0915 ON 12/28/2019. PATIENT UNDERSTANDS IF LAB WORK AND COVID-19 TESTS ARE NOT COMPLETED BY 12PM ON THAT DATE, THE SURGERY SCHEDULED WILL BE CANCELLED AND RESCHEDULED FOR ANOTHER TIME.
[2019-12-28 10:53] VITALS: BMI 37.1
[2019-12-29] VITALS (23 sets, daily range): BP systolic 93–160; BP diastolic 45–93; PULSE 68–94; RESP 16–20; TEMP 36.7–43; O2SAT 94–98
--- NOTE | 2019-12-29 10:35 | P.PN_ITS ---
[facility] Anesthesia Checklist - Patient Identification Patient Identification: Arm Band, Verbal (Name & ) - Structural Data Admitted From: Home Planned Operative Procedure/s: Left BKA Consent for Planned Operative Procedure(s) Verified: Yes Verified Documents: Surgical Consent, History and Physical, Cardiac Clearance (low risk) - NPO Status Verified Time NPO: 22:00 - Chart Verification Results Verified: CBC, BMP, PT, PTT, INR - Additional verifications Anesthesia Reactions: No Hx Blood Transfusions: No Blood Transfusion Reaction: No - Airway Assessment C-Spine Mobility Assessed: Yes TMJ Mobility Assessed: Yes Dentition: Edentulous - Neurological Assessment Level of Consciousness: Awake, Alert, Appropriate, Follows Commands Hx Seizures: No Numbness or tingling in extremities: Yes (Bilateral lower extremities) - Anesthesia Plan Anesthesia Risk discussed: Yes Anesthesia Plan: Verified ASA Class: III Anesthesia Type: General w/block [facility] History I have reviewed the patient's past medical history: Yes Medical History: Reports:: Anxiety, Congestive Heart Failure, Coronary Artery Disease, Depression, Diabetes Mellitus Type 2, Gastroesophageal Reflux Disease(GERD), Hyperlipidemia, Hypertension, Migraine, Renal Disease Denies:: Cancer, Diabetes Mellitus Type 1, Internal Pacemaker, MRSA, Seizures *Have you ever received a pneumonia vaccine?: No *Have you received a flu vaccine this season?: Yes Other Medical History: Reports: Anemia, Arthritis. Denies: Blood Transfusion Reaction Comment:: SHAYLA, obesity, angina Anesthesia experience/problems:: PONV Laterality Cases: Left: Arthroscopy Hip, Right: Arthroscopy Knee, Carpal Tunnel Release, Bilateral: Tonsillectomy Other Surgeries: Yes: Cardiac Catheterization, (1995), Dilation and Curettage (2005). 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 toe on rt foot, TMA left foot) Fractures: Yes (HIP FRACTURE) - *Social History Educational Level: Completed High School Smoking Status: Former smoker (quit 3 weeks ago) Tobacco Type: cigarettes # Packs/Day (cigarettes): 1 Alcohol Intake: never Alcohol Intake Frequency:: other Substance Use Type: denies use *Occupational Status:: disabled Housing: house Household Members: friend(s) *Travel in the last 8 weeks: None - Psychiatric History Pschychiatric History:: Reports:: Anxiety, Depression Family Hx:: Non-contributory
[2019-12-29 10:41] LABS: HCG Qualitative, Serum Negative (Negative)
[2019-12-29 11:30] LABS: Potassium 4.7 mmoL/L (3.5-5.1)
--- NOTE | 2019-12-29 13:01 | HMH.PHAINT ---
HOME MEDICATION RECONCILIATION COMPLETED USING LIST FROM CARDIOLOGY OFFICE, PRIMARY CARE PHYSICIAN OFFICE AND HOME PHARMACY
--- NOTE | 2019-12-29 15:05 | SUR.OPER ---
1506-family updated at this time
--- NOTE | 2019-12-29 17:40 | P.PN_ITS ---
[facility] Anesthesia Record Part I Intake, IV Amount: 1,400 Estimated blood loss (mL): 100 Urine output (mL): 0 Blood Products used (#): none Blood Pressure: 101/60 SaO2: 95 Pulse Rate: 87 Respiratory Rate: 20 Temperature: 98.2 F Patient is:: Drowsy, Stable Stable to PACU at:: 17:34
--- NOTE | 2019-12-29 17:49 | HMH.OPNOTE ---
Date of procedure: 12/29/19 Pre-op Diagnosis:: 1. Nonhealing postoperative wound, left foot 2. Chronic osteomyelitis, left foot 3. Peripheral vascular disease 4. Diabetes mellitus with foot ulcer Post-op Diagnosis:: Same Procedure performed:: Below-knee amputation, left leg Surgeon:: Sherman Bynum MD Public Information Specialist(s):: Bhavya Russell WEAVING INSTRUCTOR:: Wally Montgomery Anesthesia: GETA Estimated blood loss (mL): 100 Clinical Note:: Patient is a 49-year-old female with multiple medical problems including gangrene of the left foot, diabetic infection left foot, Charcot's arthropathy, osteomyelitis left foot, acute on chronic kidney injury, small vessel arterial disease due to type 2 diabetes mellitus, class II obesity, tobacco abuse, osteomyelitis, obstructive sleep apnea, coronary artery disease, chronic renal failure, hypertension, hyperlipidemia and peripheral arterial disease with previous multiple foot surgeries on her left foot. She was referred to me by Dr. Shipley, monotype operator for left below-knee amputation. Patient has history of peripheral vascular disease and diabetic foot ulcerations/infections for a long time with multiple foot surgeries. More recently she had a left Chopart's amputation on 11/23/[address] Shipley. This subsequently got infected leading to nonhealing ulcer and osteomyelitis. As she failed to respond satisfactorily to IV antibiotics, she is referred to my office for consideration for left below-knee amputation. Patient states she has had extensive discussion with Dr. Shipley about this and wants to go ahead with the surgery. She says she is feeling well within herself and denies any fevers, chills or rigors. No history of any nausea or vomiting. She states she's having pain to the foot. She recently had coronary artery stenting and is on oral aspirin and Plavix. She is on IV vancomycin and Invanz through a PICC line. Following assessment in the office, I had a detailed discussion regarding management options with the patient and family; patient elected to proceed with a LEFT below-knee amputation. I have discussed about the procedure, risks and benefits and alternatives. The patient and her sister expressed a full understanding and wished to proceed. I told her that we would plan on doing a left below-knee amputation but if the circulation is poor at this level, we would go ahead and perform an above-knee amputation. The complications discussed include but are not limited to infection, bleeding, injury to nerves and blood vessels, wound healing problems, prolonged pain and swelling, tender scar, further infection requiring oral or IV antibiotics, phantom pain, CRPS (complex regional pain syndrome- pain, sensory and temperature changes, swelling and stiffness), incomplete relief of pain, incomplete return of function, DVT, PE, ring sequestrum, likely need for further surgery in future and anesthetic problems including stroke, heart attack, and . I have discussed how there is a small but real possibility of loss of use of the limb, loss of the limb (proximal amputation) or loss of life itself. I have also explained how additional surgery may be required if there are any complications. We have also discussed the postoperative management, recovery and rehabilitation and the likely need for physical therapy, prosthetic limb fitting, the possibility of stiffness, osteomyelitis, chronic pain and we've also discussed the option of nonsurgical treatment. I strongly advised the patient to completely stop smoking and explained the rationale behind this advice. She indicated that she stopped smoking completely few days ago. Also advised her about healthy lifestyle and healthy eating habits. The patient and her sister understand and have asked appropriate questions. All their questions were answered and they verbalized a good understanding. Patient desires to proceed with the below knee amputation of the left lower extremity. Patient understood the
[2019-12-29 17:50] LABS: POC Glucose,Bedside 108 (70-110)
--- NOTE | 2019-12-29 18:01 | XR_ITS ---
PROCEDURE: XR CHEST PORTABLE PICC PLAC CLINICAL HISTORY: PICC line placement COMPARISON: CXR CHEST(2 VIEWS-NOT PORTABLE) from 08/02/2017 XR CHEST 2V from 10/24/2019 XR CHEST PORTABLE from 11/22/2019 FINDINGS: Left upper extremity PICC line has been placed. The tip appears to be in the region of the superior vena cava. There are low lung volumes with cardiomegaly. Increased density is present in the right upper and right lower lobe consistent with areas of atelectasis and/or infiltrate No acute bony abnormalities. IMPRESSION: PICC line in good position. Low lung volumes with cardiomegaly with atelectasis and/or infiltrate in the right upper and right lower lobe Dictated by: Car Barnhart MD 12/30/2019 05:42 Electronically signed by Car Barnhart MD in [place] 12/30/2019 05:42
--- NOTE | 2019-12-29 19:10 | P.PN_ITS ---
[facility] Anesthesia Record Part II Discharge Time: 17:44 Destination: Medical Surgical Department PACU nurse assessment reviewed?: Yes Patient Condition:: Good Anesthesia Complications:: None Swallowing reflex intact?: Yes Cyanosis?: No Blood Pressure: 93/45 Pulse Rate: 84 Temperature: 98.2 F Mental Status: Alert & Oriented Pain level:: 0 Nausea and/or vomitting:: Nauseated Intake, IV Amount: 40
--- NOTE | 2019-12-29 19:41 | PC.NURSE ---
Received report on pt from PACU, pt to floor at 1845. Report given to Rea Wellington RN.
[2019-12-29 20:56] LABS: POC Glucose,Bedside 166 (70-110)
[2019-12-30] VITALS (7 sets, daily range): BP systolic 123–152; BP diastolic 65–92; PULSE 70–93; RESP 16–18; TEMP 36.5–37.2; O2SAT 90–98; BMI 37.3; BMI 37.2
--- NOTE | 2019-12-30 06:05 | PC.NURSE ---
patient has had no complaints throughout shift. hemovac drainage 60 ml.
--- NOTE | 2019-12-30 07:46 | HMH.PHAVTE ---
[facility] Pharmacy VTE Monitoring - Patient Demographics Admission date: 12/29/19 Report Date: 12/30/19 Time: 07:46 Allergies/Adverse Reactions: Patient Allergies Sulfa (Sulfonamide Antibiotics) [SULFA (SULFONAMIDE ANTIBIOTICS)] Allergy (Unknown, Verified 12/29/19 09:54) Height: 1.68 m Weight: 105.262 kg - VTE Risk VTE Score: 9 VTE Risk Level: Moderate Risk - Prophylaxis VTE Prophylaxis Ordered?: Yes Types of VTE Prophylaxis: IPCS Thigh High Location of Applied Device: Bilateral Lower Extremeties - VTE Diagnosis Confirmed Treatment or plan recommended: Continue Current Treatment
[2019-12-30 07:49] LABS: Basophils % 0.2 % (0.1-2.0); Eosinophils % 0.1 % (0.1-12.0); Hematocrit 30.8 % (37.0-47.0); Hemoglobin 9.2 g/dL (12.2-16.2); Lymphocytes # 1.3 K/mm3 (0.7-4.5); Lymphocytes % 10.1 % (10-50); Mean Corpuscular HGB Conc 29.8 g/dL (31.8-35.4); Mean Corpuscular Hemoglobin 22.9 pg (27.0-31.2); Mean Corpuscular Volume 76.9 fl (81-99); Mean Platelet Volume 7.5 fl (7.4-10.4); Monocytes # 0.4 K/mm3 (0.1-1.0); Monocytes % 3.2 % (1.7-9.3); Neutrophils % 86.4 % (37.0-80.0); Platelet Count 357 K/mm3 (142-424); Red Blood Count 4.01 M/mm3 (4.20-5.40); Red Cell Distribution Width 17.3 % (11.5-17.5); White Blood Count 12.7 K/mm3 (4.8-10.8)
[2019-12-30 07:54] LABS: Anion Gap 11.9 mEq/L (5-15); Blood Urea Nitrogen 32 mg/dl (7-17); Calcium 8.5 mg/dl (8.4-10.2); Carbon Dioxide 24 mmol/L (22.0-30.0); Chloride 107 mmol/L (98-107); Creatinine Clearance Estimated 63 mL/min (50-200); Estimated Glomerular Filt Rate 30 ml/min (>60); GFR (African American) 36 ML/MIN (>60); Glucose 175 mg/dl (74-100); Potassium 4.9 mmoL/L (3.5-5.1); Sodium 138 mmol/L (136-145)
[2019-12-30 08:04] LABS: MANUAL DIFFERENTIAL MANUAL DIFFERENTIAL (MANUAL DIFF)
[2019-12-30 08:57] LABS: Lymphocytes % 8 % (10-50); Monocytes % 2 % (2-9); Neutrophils % 89 % (42-76); Platelet Estimate Slight Increase; RBC Morphology Normal; Total Cells Counted 100
[2019-12-30 08:57] LABS: POC Glucose,Bedside 118 (70-110)
[2019-12-30 08:57] LABS: POC Glucose,Bedside 139 (70-110)
[2019-12-30 08:57] LABS: POC Glucose,Bedside 58 (70-110)
[2019-12-30 08:57] LABS: POC Glucose,Bedside 55 (70-110)
--- NOTE | 2019-12-30 08:57 | HMH.PHACONS ---
- Pharmacy Consult Date: 12/30/19 Time: 08:57 Referring provider: DR. JONES Reason for Consult:: VANCOMYCIN DOSING Allergies and ADEs:: Allergies Allergy/AdvReac Type Severity Reaction Status Date / Time Sulfa (Sulfonamide Allergy Unknown Verified 12/29/19 09:54 Antibiotics) [SULFA (SULFONAMIDE ANTIBIOTICS)] Home Medications:: Home Medications Medication Instructions Recorded Confirmed Type furosemide 40 mg tablet 20 mg PO DAILYP PRN #30 tab 09/26/19 12/29/19 History levocetirizine 5 mg tablet 5 mg PO DAILY tab 09/26/19 12/29/19 History insulin lispro 100 unit/mL 14 unit SQ TID ml 10/24/19 12/29/19 History subcutaneous pen Aspirin [Low Dose Aspirin EC] 81 mg PO DAILY 11/14/19 12/29/19 History L.acidoph,Paracasei, B.lactis 1 each PO DAILY 11/14/19 12/29/19 History [Probiotic] Promethazine HCl [Phenergan 25mg 25 mg PO Q4HP PRN 11/14/19 12/29/19 History tab] Vancomycin/Water For Inj (Peg) 2 gm IV DAILY 11/14/19 12/29/19 History [Vancomycin 2 Gram/400 ml Bag] ondansetron HCl 4 mg tablet 4 mg PO NEEDED PRN tab 11/29/19 12/29/19 History gabapentin 600 mg tablet 600 mg PO TID #90 tab 12/23/19 12/29/19 Rx isosorbide mononitrate 30 mg 30 mg PO DAILY #90 tab 12/23/19 12/29/19 Rx tablet,extended release 24 hr metoclopramide HCl 5 mg tablet 5 mg PO ACHS #90 tab 12/23/19 12/29/19 Rx pantoprazole 40 mg tablet,delayed 40 mg PO DAILY #90 tab 12/23/19 12/29/19 Rx release venlafaxine 75 mg capsule,extended 75 mg PO DAILY #90 cap 12/23/19 12/29/19 Rx release 24 hr clopidogrel 75 mg tablet 75 mg PO DAILY #30 tab 12/25/19 12/29/19 Rx insulin glargine 100 unit/mL (3 65 unit SQ HS #20 ml 12/25/19 12/29/19 Rx mL) subcutaneous pen tizanidine 4 mg tablet 4 mg PO HS #30 tab 12/25/19 12/29/19 Rx Ertapenem Sodium [Invanz 1gm Vial] 1 gm IV 222912/28/19 12/29/19 History Insulin Aspart (Niacinamide) 14 unit SQ TID 12/28/19 12/29/19 History [Fiasp FlexTouch U-100 Insulin] Semaglutide [Ozempic] 0.25 mg SQ WEEKLY 12/28/19 12/29/19 History Atorvastatin Calcium [Atorvastatin 40 mg PO HS 12/29/19 12/29/19 History 40mg Tab] Galcanezumab-Gnlm [Emgality Pen] 120 mg SQ MONTHLY 12/29/19 12/29/19 History carvediloL [Carvedilol 3.125mg Tab] 6.25 mg PO BID 12/29/19 12/29/19 History lisinopriL [Prinivil 10mg Tablet] 10 mg PO HS 12/29/19 12/29/19 History Height: 1.68 m Weight: 105.262 kg Laboratory Results:: Laboratory Results - last 24 hr 12/29/19 09:55: POC Glucose 58 L 12/29/19 10:20: Serum HCG, Qual Negative 12/29/19 10:30: POC Glucose 139 H 12/29/19 11:15: Potassium 4.7 12/29/19 13:14: POC Glucose 55 L 12/29/19 13:47: POC Glucose 118 H 12/29/19 17:42: POC Glucose 108 12/29/19 20:44: POC Glucose 166 H 12/30/19 07:12: WBC 12.7 H D, RBC 4.01 L, Hgb 9.2 L, Hct 30.8 L, MCV 76.9 L, MCH 22.9 L, MCHC 29.8 L, RDW 17.3, Plt Count 357, MPV 7.5, Neut % (Auto) 86.4 H, Lymph % (Auto) 10.1, [place] % (Auto) 3.2, Eos % (Auto) 0.1, Baso % (Auto) 0.2, Neut # (Auto) 11.0 H, Lymph # (Auto) 1.3, [place] # (Auto) 0.4, Eos # (Auto) 0.0, Baso # (Auto) 0.0 12/30/19 07:12: Sodium 138, Potassium 4.9, Chloride 107, Carbon Dioxide 24, Anion Gap 11.9, BUN 32 H, Creatinine 1.80 H, Estimated Creat Clear 63, Estimated GFR 30 L, Est GFR ( Amer) 36 L, Glucose 175 H, Calcium 8.5 Medical History: Reports:: Anxiety, Congestive Heart Failure, Coronary Artery Disease, Depression, Diabetes Mellitus Type 2, Gastroesophageal Reflux Disease(GERD), Hyperlipidemia, Hypertension, Migraine, Myocardial Infarction, Renal Disease Denies:: Cancer, Diabetes Mellitus Type 1, Internal Pacemaker, MRSA, Seizures Assessment and Plan - Assessment and plan all Dx Assessment and Plan for all problems:: RECOMMEND PATIENT CONTINUE WITH VANCOMYCIN 2000 MG Q24H AT THIS TIME.
--- NOTE | 2019-12-30 10:01 | HMH.PTEV ---
Physical Therapy Evaluation Rehab PT IP Evaluation Start: 12/29/19 17:50 Freq: ONCE Status: Active Protocol: Document 12/30/19 09:39 GORGE (Rec: 12/30/19 10:01 GORGE [id number]) Subjective/History History History Pt admitted to [facility] 12/29/19 secondary to hx of non-healing ulcers, diabetes and PVD resulting in osteomyelitis. BKA performed 12/29/19. Pt reports that she lives at home alone. Pt reports that she would like to go to a rehab hospital upon discharge from [facility]. Subjective Subjective Pt reports that she has not had any pain until this morning. I've been feeling fine so far. Rehab PT IP Eval Objective Appearance Patient Behavior Appropriate Patient Orientation Person,Place,Time Difficulty following instructions none Speech Pattern Clear,Appropriate Ambulation Patient Able to Ambulate Yes Balance Ability to Arise Able, uses arms to help Sitting Balance Steady, safe Standing Balance Unsteady Dynamic Sitting Balance Ability Normal Dynamic Standing Balance Ability Good Transfers Bed Transfer Ability Independent Sit to Stand Bed Transfer Ability Minimal x 1 (25% assist) Pain Left Knee Pain Intensity 7 ROM All Extremities PT ROM Status WFL MMT LLE PT MMT ABN Abnormal MMT Grade 3+/5 Rehab PT IP prob,goals,plan Problems Date of Evaluation: 12/30/19 PT IP Problems Gait,Balance,Self care,Safety Rehab Potential Rehab Potential Good Equipment Needs Assistive Devices Rolling / Wheeled Walker Plan PT Intervention Plan Bed Mobility,Transfers,Gait, Balance,Self care,Safety, Therapeutic Exercise PT Plan Frequency BID Duration LOS Discharge Goals Bed Transfer Ability Independent Sit to Stand Chair Transfer Ability Independent Ambulation Assistive Device Rolling Walker Ambulation Distance (feet) 100 Discharge Plan PT Discharge Plan Pt prefers to be discharged to rehab hospital. G -code Required No Eval Complexity Eval Charge Codes 49648 - High Complexity PHYSICIAN CERTIFICATION:
--- NOTE | 2019-12-30 10:06 | SW/DCPLANNER ---
Addendum entered by Dunia Sharma 12/30/19 14:16: This patient has been accepted to [facility]. Precert will have to be completed first. I will follow up with [facility] on Thursday. Original Note: I have received a referral for this patient regarding discharge plans. Patient stated that she was interested in placement to receive physical therapy. Patient stated that she lives in [facility] and would like to stay close. Patient would like for me to send information to [facility]. I will fax patient information and follow up today.
--- NOTE | 2019-12-30 11:07 | HMH.OTEV ---
OT Inpatient Evaluation Rehab OT IP Evaluation Start: 12/29/19 17:50 Freq: ONCE Status: Complete Protocol: Document 12/30/19 10:56 RUBENLOVEJOY (Rec: 12/30/19 11:06 [facility] [id number]) Rehab OT IP Assessment Subjective History Pt oriented x 4 on arrival; pt agreeable for OT evaluation. Pt is a 49 year old female with a non-healing post op wound on left foot, resulting in a BKA on 12/29/19. Pt has a past medical history of CAD, MO, morbid obesity, tobacco use, chronic alcohol abuse, diabetes, and peripheral arterial disease. Pt reports she lived at a one story home, with a ramp enter house. Pt has used a scooter for amublation within the past few weeks. Pt lives with a friend who she relies on to complete all IADL's such as grocery shopping, cleaning, cooking, transportation, and medication management. Pt claims she was independent with feeding, dressing, and showering. Subjective I want to go to rehab. Objective Patient Orientation Person,Place,Birthday Upper Extremity Gross ROM WFL Bed Mobility bed mobility-scooting,bed mobility - supine/sit,bed mobility - rolling Assist Level Supervision/Stand by Transfer Training Sit/Stand Transfer Assist Level Minimal x 2 (25% assist) Rehab OT IP prob,goals,plan Problems Date of Evaluation: 12/30/19 OT IP Problems Bed Mobility,Transfers,Gait, Balance,Self care,Safety Rehab Potential Rehab Potential Good Equipment Needs Assistive Devices Rolling / Wheeled Walker Plan OT intervention Plan Bed Mobility,Transfers,Gait, Balance,Self care,Safety, Therapeutic Exercise OT Plan Frequency Daily Duration LOS Discharge Goals Bed Mobility Ability Standby Assistance Sit to Stand Chair Transfer Ability Contact Guard/Hand Hold Chair Transfer Ability Contact Guard/Hand Hold Chair Transfer Technique Sit to/from Am
[2019-12-30 11:51] LABS: POC Glucose,Bedside 321 (70-110)
--- NOTE | 2019-12-30 12:09 | PC.NURSE ---
attempted to contact dr camarena office for insulin orders at this time with no answer. patient fsbs at this time 312. will attempt to call again.
--- NOTE | 2019-12-30 13:55 | HMH.ORTHPN ---
Subjective Date: 12/30/19 Time: 12:15 Principal diagnosis: Status post below-knee amputation, left Interval history: Patient is status post left below-knee amputation post op day #1. Patient is laying down on the bed and says she is doing well and reports no problems. Patient has some pain and says it's well-controlled with medication. No history of any nausea or vomiting. No history of any cough, chest pain, shortness of breath or palpitations. Patient says she is eating and drinking well. No history of any fevers, chills or rigors. PN: Obj Ex Vital signs: Temp Pulse Resp BP Pulse Ox 97.7 F 77 17 141/72 H 93 L 12/30/19 13:52 12/30/19 13:52 12/30/19 13:52 12/30/19 13:52 12/30/19 13:52 Narrative: Laboratory Results - last 24 hr 12/29/19 09:55: POC Glucose 58 L 12/29/19 10:30: POC Glucose 139 H 12/29/19 13:14: POC Glucose 55 L 12/29/19 13:47: POC Glucose 118 H 12/29/19 17:42: POC Glucose 108 12/29/19 20:44: POC Glucose 166 H 12/30/19 07:12: WBC 12.7 H D, RBC 4.01 L, Hgb 9.2 L, Hct 30.8 L, MCV 76.9 L, MCH 22.9 L, MCHC 29.8 L, RDW 17.3, Plt Count 357, MPV 7.5, Neut % (Auto) 86.4 H, Lymph % (Auto) 10.1, [place] % (Auto) 3.2, Eos % (Auto) 0.1, Baso % (Auto) 0.2, Neut # (Auto) 11.0 H, Lymph # (Auto) 1.3, [place] # (Auto) 0.4, Eos # (Auto) 0.0, Baso # (Auto) 0.0, Total Counted 100, Neutrophils % (Manual) 89 H, Band Neutrophils % 1.0, Lymphocytes % (Manual) 8 L, Monocytes % (Manual) 2, Platelet Estimate Slight increase, RBC Morphology Normal 12/30/19 07:12: Sodium 138, Potassium 4.9, Chloride 107, Carbon Dioxide 24, Anion Gap 11.9, BUN 32 H, Creatinine 1.80 H, Estimated Creat Clear 63, Estimated GFR 30 L, Est GFR ( Amer) 36 L, Glucose 175 H, Calcium 8.5 12/30/19 11:42: POC Glucose 321 H* Exam General appearance: alert, active, awake, no acute distress ENT: Mucous membranes moist Cardiovascular: regular rate & rhythm, normal peripheral pulses Respiratory: No respiratory distress noted, speaks in full sentences ABD: soft and non tender Neuro: alert, awake, oriented x 3 Psych: Appropriate mood and affect On examination of the left lower extremity, the dressings and the splint are in place; the bandages are clean, dry and intact. No soakage or strikethrough of the dressings noted. Drain is in place and there is less than 10 cc drainage. According to the nursing staff, the drain was emptied of 60 cc, once after surgery this morning. Progress Note: A&P (1) Status post below-knee amputation of left lower extremity Status: Acute Current Visit: Yes (2) Diabetic infection of left foot Status: Acute Current Visit: No (3) Foot ulcer Status: Acute Current Visit: No (4) Osteomyelitis of left foot Status: Acute Current Visit: No Assessment and Plan for All Diagnoses:: I have reviewed the clinical and operative findings and procedure performed with the patient. Patient is doing well and reports no problems. I would change the dressings and remove the drain tomorrow and possibly patient could be discharged after that. Patient was seen by physical therapy for gait training and management of the amputation stump. I had a lengthy discussion with the patient regarding cessation of smoking and better diabetic control and healthy eating. Patient says she stopped smoking few days ago. I have again stressed the fact that there is no guarantee that the wound is going to heal uneventfully and she may need further procedures including a proximal amputation. This is more likely to happen if she continues to smoke and does not maintain strict diabetic control, and continues to eat unhealthy diet. All the questions were answered and she verbalized a good understanding. Continue medical management as per Dr. Nguyen.
[2019-12-30 16:52] LABS: POC Glucose,Bedside 246 (70-110)
--- NOTE | 2019-12-30 18:38 | PC.NURSE ---
patient has done well this shift. has done well with ambulating in room with walker. sat up in chair for a good part of shift. participated in bedside bath. scud to r leg. drain to l leg draining red drainage 30 ml emptied this shift. tolerating diet well. been up to bsc with assist. some complaints of pain responding to pain medication. vitals stable will continue to monitor.
--- NOTE | 2019-12-30 19:11 | PC.NURSE ---
report given to yaya
--- NOTE | 2019-12-30 20:01 | HMH.HP ---
*Admission Date: 12/29/19 *Chief complaint: infected lt foot *History of present illness: pt with infected lt foot with assoc diabetes mellitus - she had surg per dr pederson - have reviewed the clinical and operative findings and procedure performed with the patient. Patient is doing well and reports no problems. I would change the dressings and remove the drain tomorrow and possibly patient could be discharged after that. Patient was seen by physical therapy for gait training and management of the amputation stump. I had a lengthy discussion with the patient regarding cessation of smoking and better diabetic control and healthy eating. Patient says she stopped smoking few days ago. I have again stressed the fact that there is no guarantee that the wound is going to heal uneventfully and she may need further procedures including a proximal amputation. This is more likely to happen if she continues to smoke and does not maintain strict diabetic control, and continues to eat unhealthy diet. All the questions were answered and she verbalized a good understanding. Continue medical management as per Dr. Nguyen. Patient is a 49-year-old female with multiple medical problems including gangrene of the left foot, diabetic infection left foot, Charcot's arthropathy, osteomyelitis left foot, acute on chronic kidney injury, small vessel arterial disease due to type 2 diabetes mellitus, class II obesity, tobacco abuse, osteomyelitis, obstructive sleep apnea, coronary artery disease, chronic renal failure, hypertension, hyperlipidemia and peripheral arterial disease with previous multiple foot surgeries on her left foot. She was referred to me by Dr. Shipley, delivery technician for left below-knee amputation. Patient has history of peripheral vascular disease and diabetic foot ulcerations/infections for a long time with multiple foot surgeries. More recently she had a left Chopart's amputation on 11/23/[address] Shipley. This subsequently got infected leading to nonhealing ulcer and osteomyelitis. As she failed to respond satisfactorily to IV antibiotics, she is referred to my office for consideration for left below-knee amputation. Patient states she has had extensive discussion with Dr. Shipley about this and wants to go ahead with the surgery. She says she is feeling well within herself and denies any fevers, chills or rigors. No history of any nausea or vomiting. She states she's having pain to the foot. She recently had coronary artery stenting and is on oral aspirin and Plavix. She is on IV vancomycin and Invanz through a PICC line. Following assessment in the office, I had a detailed discussion regarding management options with the patient and family; patient elected to proceed with a LEFT below-knee amputation. I have discussed about the procedure, risks and benefits and alternatives. The patient and her sister expressed a full understanding and wished to proceed. I told her that we would plan on doing a left below-knee amputation but if the circulation is poor at this level, we would go ahead and perform an above-knee amputation. The complications discussed include but are not limited to infection, bleeding, injury to nerves and blood vessels, wound healing problems, prolonged pain and swelling, tender scar, further infection requiring oral or IV antibiotics, phantom pain, CRPS (complex regional pain syndrome- pain, sensory and temperature changes, swelling and stiffness), incomplete relief of pain, incomplete return of function, DVT, PE, ring sequestrum, likely need for further surgery in future and anesthetic problems including stroke, heart attack, and . I have discussed how there is a small but real possibility of loss of use of the limb, loss of the limb (proximal amputation) or loss of life itself. I have also explained how additional surgery may be required if there are any complications. We have also discussed the postoperative management, recovery and rehabilitation
[2019-12-31] VITALS: BP 118/62; PULSE 71; RESP 18; TEMP 36.7; O2SAT 96
[2019-12-31 01:01] LABS: POC Glucose,Bedside 179 (70-110)
[2019-12-31 03:57] VITALS: BP 135/72; PULSE 74; RESP 20; TEMP 36.7; O2SAT 97
[2019-12-31 04:44] VITALS: BMI 36.8
[2019-12-31 05:38] LABS: POC Glucose,Bedside 212 (70-110)
--- NOTE | 2019-12-31 06:15 | PC.NURSE ---
Pt did well over the night. C/o pain to LLE this am unrelieved by PO medication, IV morphine given and ice packs added to LLE. LLE remains elevated on pillows and drsg is C/D/I. Drain to L knee w/ 10ml of bright serous drainage emptied. SCUD in place to RLE. Pt is x1 assist w/ walker to BS and voided this am w/o issues. No other complaints reported to staff. Tolerating diet advancement well. VSS. Pt is up to chair for breakfast at this time.
--- NOTE | 2019-12-31 06:42 | PC.NURSE ---
IS best of 2000 this shift
[2019-12-31 08:00] VITALS: BP 84/36; PULSE 68; RESP 16; TEMP 36.6; O2SAT 97
[2019-12-31 12:00] VITALS: BP 117/63; PULSE 68; RESP 20; TEMP 36.9; O2SAT 96
[2019-12-31 12:15] LABS: POC Glucose,Bedside 250 (70-110)
[2019-12-31 16:00] VITALS: BP 146/70; PULSE 64; RESP 16; TEMP 36.7; O2SAT 96
--- NOTE | 2019-12-31 17:18 | HMH.ORTHPN ---
Subjective Date: 12/31/19 Time: 16:45 Principal diagnosis: Status post below-knee amputation, left Interval history: Patient is status post left below-knee amputation post op day # 2. Patient is sitting out on the chair and says she is doing well and reports no problems. Patient reports some pain and says it's well-controlled with medication. No history of any nausea or vomiting. No history of any cough, chest pain, shortness of breath or palpitations. Patient says she is eating and drinking well. No history of any fevers, chills or rigors. She has been mobilizing well with physical therapy. PN: Obj Ex Vital signs: Temp Pulse Resp BP Pulse Ox 98.0 F 64 16 146/70 H 96 12/31/19 16:00 12/31/19 16:00 12/31/19 16:00 12/31/19 16:00 12/31/19 16:00 Narrative: Laboratory Results - last 24 hr 12/30/19 20:42: POC Glucose 179 H 12/31/19 05:25: POC Glucose 212 H 12/31/19 11:40: POC Glucose 250 H Microbiology 12/29/19 16:52 Leg,Left - Wound Gram Stain - Final 12/29/19 16:52 Leg,Left - Wound Wound Culture - Preliminary NO GROWTH AFTER 24 HOURS Exam General appearance: alert, active, awake, no acute distress ENT: Mucous membranes moist Cardiovascular: regular rate & rhythm, normal peripheral pulses Respiratory: No respiratory distress noted, speaks in full sentences ABD: soft and non tender Neuro: alert, awake, oriented x 3 Psych: Appropriate mood and affect On examination of the left lower extremity, the dressings and the splint are in place; the bandages are clean, dry and intact. No soakage or strikethrough of the dressings noted. Drain is in place and there is less than 10 cc drainage during the previous 12 hours. There is about a 10 to 15 cc in the bag at present. Progress Note: A&P (1) Status post below-knee amputation of left lower extremity Status: Acute Current Visit: Yes (2) Diabetic infection of left foot Status: Acute Current Visit: No (3) Foot ulcer Status: Acute Current Visit: No (4) Osteomyelitis of left foot Status: Acute Current Visit: No Assessment and Plan for All Diagnoses:: I have reviewed the clinical findings and progress with the patient. Patient is doing well and reports no problems. I have removed the drain today. Patient is waiting for placement into a assisted facility and likely to be discharged on Thursday. Continue physical therapy and mobilization as comfortable. Continue elevation of the limb, icing, as needed pain medication and IV antibiotics. All the questions were answered and she verbalized a good understanding. Continue medical management as per Dr. Nguyen.
--- NOTE | 2019-12-31 18:08 | PC.NURSE ---
PT IS SITTING UP IN THE CHAIR WATCHING TV AT THIS TIME. RECEIVED PAIN MEDICATION FOR DISCOMFORT. PT IS ABLE TO GET UP WITH [address] JONES REMOVED DRAIN THIS SHIFT (PT HAD A TOTAL OF 20 ML'S OF DRAINAGE) DRESSING TO LLE C/D/I. [place] NOTED TO RLE. LUNG SOUNDS CLEAR. BOWEL SOUNDS NORMAL. PT AMBULATED IN THE [place] WITH PHYSICAL THERAPY. EATING AND DRINKING WELL. WILL CONTINUE TO MONITOR.
[2019-12-31 19:48] LABS: POC Glucose,Bedside 149 (70-110)
[2019-12-31 20:00] VITALS: BP 148/75; PULSE 78; RESP 16; TEMP 36.8; O2SAT 97
[2019-12-31 20:27] LABS: POC Glucose,Bedside 206 (70-110)
[2020-01-01] VITALS: BP 158/84; PULSE 78; RESP 16; TEMP 36.7; O2SAT 93
[2020-01-01 03:49] VITALS: BP 132/69; PULSE 78; RESP 16; TEMP 36.7; O2SAT 95
--- NOTE | 2020-01-01 04:05 | PC.NURSE ---
No acute changes. SCUD remain to RLE. Drsg to LLE is C/D/I and limb is elevated on pillows. Ice pack prn to LLE. C/o throbbing pain x2 to LLE was treated per OCT w/ desired effect. IS encouraged often w/ best of 1999 this shift. Pt x1 assist to BSC, voiding w/o issues but no BM this shift. VSS. Will continue to monitor.
[2020-01-01 05:00] VITALS: BMI 36.8
[2020-01-01 06:27] LABS: POC Glucose,Bedside 172 (70-110)
[2020-01-01 08:00] VITALS: BP 154/76; PULSE 79; RESP 20; TEMP 36.6; O2SAT 97
[2020-01-01 09:39] LABS: Vancomycin,Trough 24.3 ug/mL (5.0-10.0)
--- NOTE | 2020-01-01 09:44 | HMH.PHACONS ---
- Pharmacy Consult Date: 01/01/20 Time: 09:44 Referring provider: DR. WEBER Reason for Consult:: VANCOMYCIN TROUGH LEVEL Allergies and ADEs:: Allergies Allergy/AdvReac Type Severity Reaction Status Date / Time Sulfa (Sulfonamide Allergy Unknown Verified 12/29/19 09:54 Antibiotics) [SULFA (SULFONAMIDE ANTIBIOTICS)] Home Medications:: Home Medications Medication Instructions Recorded Confirmed Type furosemide 40 mg tablet 20 mg PO DAILYP PRN #30 tab 09/26/19 12/29/19 History levocetirizine 5 mg tablet 5 mg PO DAILY tab 09/26/19 12/29/19 History insulin lispro 100 unit/mL 14 unit SQ TID ml 10/24/19 12/29/19 History subcutaneous pen Aspirin [Low Dose Aspirin EC] 81 mg PO DAILY 11/14/19 12/29/19 History L.acidoph,Paracasei, B.lactis 1 each PO DAILY 11/14/19 12/29/19 History [Probiotic] Promethazine HCl [Phenergan 25mg 25 mg PO Q4HP PRN 11/14/19 12/29/19 History tab] Vancomycin/Water For Inj (Peg) 2 gm IV DAILY 11/14/19 12/29/19 History [Vancomycin 2 Gram/400 ml Bag] ondansetron HCl 4 mg tablet 4 mg PO NEEDED PRN tab 11/29/19 12/29/19 History gabapentin 600 mg tablet 600 mg PO TID #90 tab 12/23/19 12/29/19 Rx isosorbide mononitrate 30 mg 30 mg PO DAILY #90 tab 12/23/19 12/29/19 Rx tablet,extended release 24 hr metoclopramide HCl 5 mg tablet 5 mg PO ACHS #90 tab 12/23/19 12/29/19 Rx pantoprazole 40 mg tablet,delayed 40 mg PO DAILY #90 tab 12/23/19 12/29/19 Rx release venlafaxine 75 mg capsule,extended 75 mg PO DAILY #90 cap 12/23/19 12/29/19 Rx release 24 hr clopidogrel 75 mg tablet 75 mg PO DAILY #30 tab 12/25/19 12/29/19 Rx insulin glargine 100 unit/mL (3 65 unit SQ HS #20 ml 12/25/19 12/29/19 Rx mL) subcutaneous pen tizanidine 4 mg tablet 4 mg PO HS #30 tab 12/25/19 12/29/19 Rx Ertapenem Sodium [Invanz 1gm Vial] 1 gm IV 222912/28/19 12/29/19 History Semaglutide [Ozempic] 0.25 mg SQ WEEKLY 12/28/19 12/29/19 History Atorvastatin Calcium [Atorvastatin 40 mg PO HS 12/29/19 12/29/19 History 40mg Tab] Galcanezumab-Gnlm [Emgality Pen] 120 mg SQ MONTHLY 12/29/19 12/29/19 History carvediloL [Carvedilol 3.125mg Tab] 6.25 mg PO BID 12/29/19 12/29/19 History lisinopriL [Prinivil 10mg Tablet] 10 mg PO HS 12/29/19 12/29/19 History Height: 1.68 m Weight: 103.873 kg Laboratory Results:: Laboratory Results - last 24 hr 12/31/19 11:40: POC Glucose 250 H 12/31/19 16:46: POC Glucose 149 H 12/31/19 20:06: POC Glucose 206 H 01/01/20 06:03: POC Glucose 172 H 01/01/20 08:40: Vancomycin Trough 24.3 H Medical History: Reports:: Anxiety, Congestive Heart Failure, Coronary Artery Disease, Depression, Diabetes Mellitus Type 2, Gastroesophageal Reflux Disease(GERD), Hyperlipidemia, Hypertension, Migraine, Myocardial Infarction, Renal Disease Denies:: Cancer, Diabetes Mellitus Type 1, Internal Pacemaker, MRSA, Seizures Assessment and Plan (1) Status post below-knee amputation of left lower extremity Current visit: Yes Status: Acute Category: Surgical Code(s): Z89.512 - Acquired absence of left leg below knee (2) Diabetic infection of left foot Current visit: No Status: Acute Category: Medical Code(s): E11.628 - Type 2 diabetes mellitus with other skin complications; L08.9 - Local infection of the skin and subcutaneous tissue, unspecified (3) Foot ulcer Current visit: No Status: Acute Qualifiers: Laterality: left Non-pressure ulcer stage: with fat layer exposed Qualified Code(s): L97.522 - Non-pressure chronic ulcer of other part of left foot with fat layer exposed Category: Medical Code(s): L97.509 - Non-pressure chronic ulcer of other part of unspecified foot with unspecified severity (4) Osteomyelitis of left foot Current visit: No Status: Acute Qualifiers: Osteomyelitis type: unspecified type Qualified Code(s): M86.9 - Osteomyelitis, unspecified Category: Medical Code(s): M86.9 - Osteomyelitis, unspecified - Assessment an
[2020-01-01 11:45] LABS: POC Glucose,Bedside 222 (70-110)
--- NOTE | 2020-01-01 16:10 | HMH.ACPN2 ---
Internal Medicine - PN: Subj *Date: 01/02/20 *Time: 08:47 Interval history: doing ok today- has episode of low bp - will give ivf and change meds Exam Vital signs and Labs for Last 24 Hours: Temp Pulse Resp BP Pulse Ox 97.8 F 79 20 154/76 H 97 01/01/20 08:00 01/01/20 08:00 01/01/20 08:00 01/01/20 08:00 01/01/20 08:00 Laboratory Results - last 24 hr 12/31/19 16:46: POC Glucose 149 H 12/31/19 20:06: POC Glucose 206 H 01/01/20 06:03: POC Glucose 172 H 01/01/20 08:40: Vancomycin Trough 24.3 H 01/01/20 11:28: POC Glucose 222 H I & O for Last 24 hours: Intake & Output 12/30/19 12/31/19 01/01/20 01/02/20 11:59 11:59 11:59 11:59 Intake Total 2774 / 2774 1440 / 1440 3053 / 3053 480 / 480 Output Total 60 / 60 1040 / 1040 420 / 420 Balance 2714 / 2714 400 / 400 2633 / 2633 480 / 480 Weight 232 lb 1 oz 229 lb 229 lb 0.012 oz Microbiology Reports for the Last 24 Hours: Microbiology 12/29/19 16:52 Leg,Left - Wound Gram Stain - Final 12/29/19 16:52 Leg,Left - Wound Wound Culture - Preliminary NO GROWTH AFTER 48 HOURS - Constitutional no acute distress, obese - *Routine HEENT Exam Head: Present: normocephalic Eye: Present: EOMI, PERRL ENT: Present: mucous membranes dry - *Routine Neck Exam Present: supple - *Routine Respiratory Exam Present: CTA bilaterally - *Routine Cardiovascular Exam Present: RRR - *Routine Abdominal Exam Present: soft - *Routine Extremities Exam Present: amputation - *Routine Skin Exam Present: intact - *Routine Neurological Exam Present: alert, CN II-XII intact - Routine Psychiatric Exam Present: normal affect Assessment and Plan (1) Status post below-knee amputation of left lower extremity Current visit: Yes Status: Acute Category: Surgical Code(s): Z89.512 - Acquired absence of left leg below knee (2) Diabetic infection of left foot Current visit: No Status: Acute Category: Medical Code(s): E11.628 - Type 2 diabetes mellitus with other skin complications; L08.9 - Local infection of the skin and subcutaneous tissue, unspecified (3) Foot ulcer Current visit: No Status: Acute Qualifiers: Laterality: left Non-pressure ulcer stage: with fat layer exposed Qualified Code(s): L97.522 - Non-pressure chronic ulcer of other part of left foot with fat layer exposed Category: Medical Code(s): L97.509 - Non-pressure chronic ulcer of other part of unspecified foot with unspecified severity (4) Osteomyelitis of left foot Current visit: No Status: Acute Qualifiers: Osteomyelitis type: unspecified type Qualified Code(s): M86.9 - Osteomyelitis, unspecified Category: Medical Code(s): M86.9 - Osteomyelitis, unspecified
[2020-01-01 16:26] VITALS: BP 100/67; PULSE 80; RESP 20; TEMP 36.8; O2SAT 95
--- NOTE | 2020-01-01 17:54 | PC.NURSE ---
No acute changes noted this shift, pt has been up to chair for most of shift today, has been treated for pain twice this shift per emar, each time with good relief from oral pain meds, dsg to L BKA cdi, no drainage noted, remains on RA, vss, no s/s of distress noted, will continue to monitor.
[2020-01-01 18:13] LABS: POC Glucose,Bedside 207 (70-110)
[2020-01-01 20:00] VITALS: BP 148/78; PULSE 79; RESP 16; TEMP 36.7; O2SAT 97
--- NOTE | 2020-01-01 21:01 | HMH.ORTHPN ---
Subjective Date: 01/01/20 Time: 21:00 Principal diagnosis: Status post below-knee amputation, left Interval history: Patient is status post left below-knee amputation post op day # 3. Patient is laying down on the bed and says she is doing well and reports no problems. Patient has some pain and says it's well-controlled with medication. No history of any nausea or vomiting. No history of any cough, chest pain, shortness of breath or palpitations. Patient says she is eating and drinking well. No history of any fevers, chills or rigors. PN: Obj Ex Vital signs: Temp Pulse Resp BP Pulse Ox 98.2 F 80 20 100/67 L 95 01/01/20 16:26 01/01/20 16:26 01/01/20 16:26 01/01/20 16:26 01/01/20 16:26 Narrative: Laboratory Results - last 24 hr 01/01/20 06:03: POC Glucose 172 H 01/01/20 08:40: Vancomycin Trough 24.3 H 01/01/20 11:28: POC Glucose 222 H 01/01/20 17:03: POC Glucose 207 H Microbiology 12/29/19 16:52 Leg,Left - Wound Gram Stain - Final 12/29/19 16:52 Leg,Left - Wound Wound Culture - Preliminary NO GROWTH AFTER 72 HOURS Exam General appearance: alert, active, awake, no acute distress ENT: Mucous membranes moist Cardiovascular: regular rate & rhythm, normal peripheral pulses Respiratory: No respiratory distress noted, speaks in full sentences ABD: soft and non tender Neuro: alert, awake, oriented x 3 Psych: Appropriate mood and affect On examination of the left lower extremity, the dressings and the splint are in place; the bandages are clean, dry and intact. No soakage or strikethrough of the dressings noted. I have changed the dressings today. There is minimal soakage of the dressings. No active bleeding noted. The stump looks healthy and suture line well vascularized. No excessive swelling/edema of the stump noted. She is able to actively straight leg raise. Progress Note: A&P (1) Status post below-knee amputation of left lower extremity Status: Acute Current Visit: Yes (2) Diabetic infection of left foot Status: Acute Current Visit: No (3) Foot ulcer Status: Acute Current Visit: No (4) Osteomyelitis of left foot Status: Acute Current Visit: No Assessment and Plan for All Diagnoses:: I have reviewed the clinical findings and progress with the patient. Patient is doing well and reports no problems. Continue elevation, icing, as needed pain medication. The intraoperative cultures are negative at 72 hours. However, given the history of osteomyelitis and her medical comorbidities, recommend continuation of IV vancomycin for couple of weeks- until the wound heals completely. Patient can be discharged from an orthopedic standpoint if appropriate medically. 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 All the questions were answered and she verbalized a good understanding. Continue medical management as per Dr. Nguyen.
[2020-01-01 22:29] LABS: POC Glucose,Bedside 212 (70-110)
[2020-01-02] VITALS (25 sets, daily range): BP systolic 130–163; BP diastolic 62–89; PULSE 78–93; RESP 16–18; TEMP 36.4–37.1; O2SAT 92–99; BMI 39.1
--- NOTE | 2020-01-02 00:18 | PC.NURSE ---
Dr Bynum in to change pt's dressing, no problems noted, pt tolerated well r/t Morphine already being on board. Assessment negative except LBKA. Pt reported, I can still feel my foot, like I am pressing on the gas peddle with my foot that isn't there. Expressed the same with Dr Bynum, That is not unusual and may continue for a while, but will probably go away. It is alright for you to go tomorrow as far as I'm concerned. Pt presently resting with leg elevated on pillows and ice pack in place. No objective s/s of pain or discomfort noted, call light w/i reach, monitoring continues.
[2020-01-02 06:22] LABS: POC Glucose,Bedside 138 (70-110)
[2020-01-02 06:25] LABS: Basophils % 0.4 % (0.1-2.0); Chloride 110 mmol/L (98-107); Eosinophils # 0.2 K/mm3 (0.0-0.4); Eosinophils % 2.7 % (0.1-12.0); Hematocrit 25.1 % (37.0-47.0); Lymphocytes % 26.5 % (10-50); Mean Corpuscular HGB Conc 30.3 g/dL (31.8-35.4); Mean Corpuscular Hemoglobin 23.4 pg (27.0-31.2); Mean Corpuscular Volume 77.5 fl (81-99); Monocytes # 0.3 K/mm3 (0.1-1.0); Monocytes % 4.4 % (1.7-9.3); Neutrophils % 65.9 % (37.0-80.0); Platelet Count 325 K/mm3 (142-424); Red Blood Count 3.24 M/mm3 (4.20-5.40); Red Cell Distribution Width 17.1 % (11.5-17.5); Sodium 139 mmol/L (136-145); White Blood Count 7.5 K/mm3 (4.8-10.8)
[2020-01-02 06:26] LABS: Potassium 4.1 mmoL/L (3.5-5.1)
[2020-01-02 06:28] LABS: Blood Urea Nitrogen 26 mg/dl (7-17); Creatinine Clearance Estimated 66 mL/min (50-200); Estimated Glomerular Filt Rate 32 ml/min (>60); GFR (African American) 39 ML/MIN (>60)
[2020-01-02 06:29] LABS: Anion Gap 8.1 mEq/L (5-15); Calcium 7.7 mg/dl (8.4-10.2); Carbon Dioxide 25 mmol/L (22.0-30.0); Glucose 136 mg/dl (74-100)
--- NOTE | 2020-01-02 06:52 | PC.NURSE ---
Up to chair, uses walker and moves quite well. Pt c/o pain following dressing change r/t when Dr Bynum put the splint on during dressing change. Medicated PRN pain meds, pt rested off and on, no other changes from previous note, monitoring continues.
[2020-01-02 07:04] LABS: Hemoglobin 7.6 g/dL (12.2-16.2)
--- NOTE | 2020-01-02 08:50 | HMH.ACPN2 ---
Internal Medicine - PN: Subj *Date: 12/31/19 *Time: 08:50 Interval history: saw pt on sat 12/[address] note - pt was doing ok and no specific c/o Exam Vital signs and Labs for Last 24 Hours: Temp Pulse Resp BP Pulse Ox 98.6 F 83 16 130/62 92 L 01/02/20 08:00 01/02/20 08:00 01/02/20 08:00 01/02/20 08:00 01/02/20 08:00 Laboratory Results - last 24 hr 01/01/20 08:40: Vancomycin Trough 24.3 H 01/01/20 11:28: POC Glucose 222 H 01/01/20 17:03: POC Glucose 207 H 01/01/20 20:17: POC Glucose 212 H 01/02/20 05:22: WBC 7.5 D, RBC 3.24 L, Hgb 7.6 L*, Hct 25.1 L, MCV 77.5 L, MCH 23.4 L, MCHC 30.3 L, RDW 17.1, Plt Count 325, MPV 8.0, Neut % (Auto) 65.9, Lymph % (Auto) 26.5, [place] % (Auto) 4.4, Eos % (Auto) 2.7, Baso % (Auto) 0.4, Neut # (Auto) 5.0, Lymph # (Auto) 2.0, [place] # (Auto) 0.3, Eos # (Auto) 0.2, Baso # (Auto) 0.0 01/02/20 05:22: Sodium 139, Potassium 4.1, Chloride 110 H, Carbon Dioxide 25, Anion Gap 8.1, BUN 26 H, Creatinine 1.70 H, Estimated Creat Clear 66, Estimated GFR 32 L, Est GFR ( Amer) 39 L, Glucose 136 H, Calcium 7.7 L 01/02/20 06:07: POC Glucose 138 H I & O for Last 24 hours: Intake & Output 12/30/19 12/31/19 01/01/20 01/02/20 11:59 11:59 11:59 11:59 Intake Total 2774 / 2774 1440 / 1440 3053 / 3053 4085 / 4085 Output Total 60 / 60 1040 / 1040 420 / 420 750 / 750 Balance 2714 / 2714 400 / 400 2633 / 2633 3335 / 3335 Weight 232 lb 1 oz 229 lb 229 lb 0.012 oz 229 lb 0.012 oz Microbiology Reports for the Last 24 Hours: Microbiology 12/29/19 16:52 Leg,Left - Wound Gram Stain - Final 12/29/19 16:52 Leg,Left - Wound Wound Culture - Preliminary NO GROWTH AFTER 72 HOURS - Constitutional no acute distress - *Routine HEENT Exam Head: Present: normocephalic Eye: Present: EOMI, PERRL ENT: Present: mucous membranes dry - *Routine Neck Exam Present: supple - *Routine Respiratory Exam Present: CTA bilaterally - *Routine Cardiovascular Exam Present: RRR - *Routine Abdominal Exam Present: soft - *Routine Extremities Exam Present: amputation - *Routine Skin Exam Present: intact - *Routine Neurological Exam Present: alert, CN II-XII intact - Routine Psychiatric Exam Present: normal affect Assessment and Plan (1) Status post below-knee amputation of left lower extremity Current visit: Yes Status: Acute Category: Surgical Code(s): Z89.512 - Acquired absence of left leg below knee (2) Diabetic infection of left foot Current visit: No Status: Acute Category: Medical Code(s): E11.628 - Type 2 diabetes mellitus with other skin complications; L08.9 - Local infection of the skin and subcutaneous tissue, unspecified (3) Foot ulcer Current visit: No Status: Acute Qualifiers: Laterality: left Non-pressure ulcer stage: with fat layer exposed Qualified Code(s): L97.522 - Non-pressure chronic ulcer of other part of left foot with fat layer exposed Category: Medical Code(s): L97.509 - Non-pressure chronic ulcer of other part of unspecified foot with unspecified severity (4) Osteomyelitis of left foot Current visit: No Status: Acute Qualifiers: Osteomyelitis type: unspecified type Qualified Code(s): M86.9 - Osteomyelitis, unspecified Category: Medical Code(s): M86.9 - Osteomyelitis, unspecified
[2020-01-02 09:38] LABS: Vancomycin,Trough 15.7 ug/mL (5.0-10.0)
--- NOTE | 2020-01-02 09:50 | PC.NURSE ---
Blood transfusion consent reviewed with pt and signed.
--- NOTE | 2020-01-02 10:00 | SW/DCPLANNER ---
Addendum entered by Dunia [place] 01/02/20 17:57: [facility] is now requesting a second COVID-19 test due to O2 sats throughout the weekend. I have relayed message to . Addendum entered by Dunia [place] 01/02/20 15:12: Kristin with [facility] is reviewing COVID 19 screening. Addendum entered by Dunia [place] 01/02/20 15:10: Admissions at [facility] continues to request additional information regarding vitals and medication for this patient due to COVID-19 screening. Additional information has been faxed to [facility]. I have informed staff that patient will be ready for discharge in the AM. [facility] is suppose to inform me today once patient has been cleared to come per COVID screening. Patient has been accepted and pre-cert has been completed at this time. Original Note: I have followed up with [facility] this morning. Admissions has stated that their staff is working on reviewing COVID information. Patient was accepted on Thursday pending [employer] pre-cert. I have informed [facility] that this patient will receive blood this morning but the hope is by this afternoon will be ready for discharge. I will follow up with patient regarding transportation today.
--- NOTE | 2020-01-02 11:44 | HMH.PHACONS ---
- Pharmacy Consult Date: 01/02/20 Time: 11:44 Referring provider: DR. WEBER Reason for Consult:: VANCOMYCIN TROUGH LEVEL AND DOSE CHANGE. Allergies and ADEs:: Allergies Allergy/AdvReac Type Severity Reaction Status Date / Time Sulfa (Sulfonamide Allergy Unknown Verified 12/29/19 09:54 Antibiotics) [SULFA (SULFONAMIDE ANTIBIOTICS)] Home Medications:: Home Medications Medication Instructions Recorded Confirmed Type furosemide 40 mg tablet 20 mg PO DAILYP PRN #30 tab 09/26/19 12/29/19 History levocetirizine 5 mg tablet 5 mg PO DAILY tab 09/26/19 12/29/19 History insulin lispro 100 unit/mL 14 unit SQ TID ml 10/24/19 12/29/19 History subcutaneous pen Aspirin [Low Dose Aspirin EC] 81 mg PO DAILY 11/14/19 12/29/19 History L.acidoph,Paracasei, B.lactis 1 each PO DAILY 11/14/19 12/29/19 History [Probiotic] Promethazine HCl [Phenergan 25mg 25 mg PO Q4HP PRN 11/14/19 12/29/19 History tab] Vancomycin/Water For Inj (Peg) 2 gm IV DAILY 11/14/19 12/29/19 History [Vancomycin 2 Gram/400 ml Bag] ondansetron HCl 4 mg tablet 4 mg PO NEEDED PRN tab 11/29/19 12/29/19 History gabapentin 600 mg tablet 600 mg PO TID #90 tab 12/23/19 12/29/19 Rx isosorbide mononitrate 30 mg 30 mg PO DAILY #90 tab 12/23/19 12/29/19 Rx tablet,extended release 24 hr metoclopramide HCl 5 mg tablet 5 mg PO ACHS #90 tab 12/23/19 12/29/19 Rx pantoprazole 40 mg tablet,delayed 40 mg PO DAILY #90 tab 12/23/19 12/29/19 Rx release venlafaxine 75 mg capsule,extended 75 mg PO DAILY #90 cap 12/23/19 12/29/19 Rx release 24 hr clopidogrel 75 mg tablet 75 mg PO DAILY #30 tab 12/25/19 12/29/19 Rx insulin glargine 100 unit/mL (3 65 unit SQ HS #20 ml 12/25/19 12/29/19 Rx mL) subcutaneous pen tizanidine 4 mg tablet 4 mg PO HS #30 tab 12/25/19 12/29/19 Rx Ertapenem Sodium [Invanz 1gm Vial] 1 gm IV 222912/28/19 12/29/19 History Semaglutide [Ozempic] 0.25 mg SQ WEEKLY 12/28/19 12/29/19 History Atorvastatin Calcium [Atorvastatin 40 mg PO HS 12/29/19 12/29/19 History 40mg Tab] Galcanezumab-Gnlm [Emgality Pen] 120 mg SQ MONTHLY 12/29/19 12/29/19 History carvediloL [Carvedilol 3.125mg Tab] 6.25 mg PO BID 12/29/19 12/29/19 History lisinopriL [Prinivil 10mg Tablet] 10 mg PO HS 12/29/19 12/29/19 History Height: 1.63 m Weight: 103.873 kg Laboratory Results:: Laboratory Results - last 24 hr 01/01/20 11:28: POC Glucose 222 H 01/01/20 17:03: POC Glucose 207 H 01/01/20 20:17: POC Glucose 212 H 01/02/20 05:22: WBC 7.5 D, RBC 3.24 L, Hgb 7.6 L*, Hct 25.1 L, MCV 77.5 L, MCH 23.4 L, MCHC 30.3 L, RDW 17.1, Plt Count 325, MPV 8.0, Neut % (Auto) 65.9, Lymph % (Auto) 26.5, [place] % (Auto) 4.4, Eos % (Auto) 2.7, Baso % (Auto) 0.4, Neut # (Auto) 5.0, Lymph # (Auto) 2.0, [place] # (Auto) 0.3, Eos # (Auto) 0.2, Baso # (Auto) 0.0 01/02/20 05:22: Sodium 139, Potassium 4.1, Chloride 110 H, Carbon Dioxide 25, Anion Gap 8.1, BUN 26 H, Creatinine 1.70 H, Estimated Creat Clear 66, Estimated GFR 32 L, Est GFR ( Amer) 39 L, Glucose 136 H, Calcium 7.7 L 01/02/20 06:07: POC Glucose 138 H 01/02/20 08:25: Vancomycin Trough 15.7 H 01/02/20 10:30: Blood Type B Positive, Crossmatch (AHG) See Detail Medical History: Reports:: Anxiety, Congestive Heart Failure, Coronary Artery Disease, Depression, Diabetes Mellitus Type 2, Gastroesophageal Reflux Disease(GERD), Hyperlipidemia, Hypertension, Migraine, Myocardial Infarction, Renal Disease Denies:: Cancer, Diabetes Mellitus Type 1, Internal Pacemaker, MRSA, Seizures Assessment and Plan (1) Status post below-knee amputation of left lower extremity Current visit: Yes Status: Acute Category: Surgical Code(s): Z89.512 - Acquired absence of left leg below knee (2) Diabetic infection of left foot Current visit: No Status: Acute Category: Medical Code(s): E11.628 - Type 2 diabetes mellitus with other skin complications; L08.9 - Local infection of the skin and subcutaneous tissue, unspecified (3) Foot
[2020-01-02 11:57] LABS: POC Glucose,Bedside 213 (70-110)
--- NOTE | 2020-01-02 16:54 | PC.NURSE ---
RN reassessment completed at 1645, 2nd unit of blood transfusing, pt tolerated 1st transfusion well. Pt has been sitting up in the chair for entire shift and has tolerated ambulation to [facility] with assist of walker to void well. Pt has been medicated twice this shift with PRN medication for pain in left leg with improvement in pain on reassessment. Pt now reports that pain is a 6 on a 0-10 scale but reports that this is tolerable for her. Lung sounds CTA, no s/s distress, no c/o SOA. Abd soft and nontender with BS active in all quads. Pt is s/p left BKA, dressing remains intact. Pt is hopeful that she will be discharged tomorrow. Call light within reach while sitting up in the chair.
[2020-01-02 17:24] LABS: POC Glucose,Bedside 147 (70-110)
--- NOTE | 2020-01-02 17:37 | HMH.ACPN2 ---
Internal Medicine - PN: Subj *Date: 01/02/20 *Time: 08:00 Interval history: pt states she is doing well no c/o and states pain is under control Exam Vital signs and Labs for Last 24 Hours: Temp Pulse Resp BP Pulse Ox 98.8 F 87 18 159/80 H 95 01/02/20 17:15 01/02/20 17:15 01/02/20 17:15 01/02/20 17:15 01/02/20 17:15 Laboratory Results - last 24 hr 01/01/20 17:03: POC Glucose 207 H 01/01/20 20:17: POC Glucose 212 H 01/02/20 05:22: WBC 7.5 D, RBC 3.24 L, Hgb 7.6 L*, Hct 25.1 L, MCV 77.5 L, MCH 23.4 L, MCHC 30.3 L, RDW 17.1, Plt Count 325, MPV 8.0, Neut % (Auto) 65.9, Lymph % (Auto) 26.5, [place] % (Auto) 4.4, Eos % (Auto) 2.7, Baso % (Auto) 0.4, Neut # (Auto) 5.0, Lymph # (Auto) 2.0, [place] # (Auto) 0.3, Eos # (Auto) 0.2, Baso # (Auto) 0.0 01/02/20 05:22: Sodium 139, Potassium 4.1, Chloride 110 H, Carbon Dioxide 25, Anion Gap 8.1, BUN 26 H, Creatinine 1.70 H, Estimated Creat Clear 66, Estimated GFR 32 L, Est GFR ( Amer) 39 L, Glucose 136 H, Calcium 7.7 L 01/02/20 06:07: POC Glucose 138 H 01/02/20 08:25: Vancomycin Trough 15.7 H 01/02/20 10:30: Blood Type B Positive, Antibody Screen Negative, Crossmatch (AHG) See Detail 01/02/20 11:32: POC Glucose 213 H 01/02/20 11:33: Blood Type Confirm B Positive 01/02/20 17:07: POC Glucose 147 H I & O for Last 24 hours: Intake & Output 12/31/19 01/01/20 01/02/20 01/03/20 11:59 11:59 11:59 11:59 Intake Total 1440 / 1440 3053 / 3053 4085 / 4085 480 / 480 Output Total 1040 / 1040 420 / 420 750 / 750 Balance 400 / 400 2633 / 2633 3335 / 3335 480 / 480 Weight 229 lb 229 lb 0.012 oz 229 lb 0.012 oz Microbiology Reports for the Last 24 Hours: Microbiology 12/29/19 16:52 Leg,Left - Wound Gram Stain - Final 12/29/19 16:52 Leg,Left - Wound Wound Culture - Preliminary NO GROWTH AFTER 72 HOURS - Constitutional no acute distress - *Routine HEENT Exam Head: Present: normocephalic Eye: Present: PERRL ENT: Present: mucous membranes moist - *Routine Neck Exam Present: supple. Absent: lymphadenopathy - *Routine Respiratory Exam Present: CTA bilaterally - *Routine Cardiovascular Exam Present: RRR - *Routine Abdominal Exam Present: soft, normoactive bowel sounds. Absent: tenderness - *Routine Extremities Exam Present: amputation. Absent: cyanosis, clubbing, edema Comments: left bka - *Routine Skin Exam Present: warm. Absent: rash Comments: dressing to left lower ext c/d/i - *Routine Neurological Exam Present: alert, oriented X3 Assessment and Plan (1) Status post below-knee amputation of left lower extremity Current visit: Yes Status: Acute Category: Surgical Code(s): Z89.512 - Acquired absence of left leg below knee (2) Diabetic infection of left foot Current visit: No Status: Acute Category: Medical Code(s): E11.628 - Type 2 diabetes mellitus with other skin complications; L08.9 - Local infection of the skin and subcutaneous tissue, unspecified (3) Foot ulcer Current visit: No Status: Acute Qualifiers: Laterality: left Non-pressure ulcer stage: with fat layer exposed Qualified Code(s): L97.522 - Non-pressure chronic 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
--- NOTE | 2020-01-02 19:10 | PC.NURSE ---
report given to ashley
--- NOTE | 2020-01-02 19:45 | PC.NURSE ---
RN PULLED BLOOD FROM PICC AT THIS TIME FOR POST HH LAB AT BEDSIDE TO VERIFY 10 ML WASTED AT THIS TIME.
--- NOTE | 2020-01-02 19:50 | PC.NURSE ---
PT ASSESSED AT THIS TIME. PT STATES PAIN 7/10 ON VERBAL SCALE AT THIS TIME R/T L LEG AMPUTATION. LUNG SOUNDS CLEAR. NO EDEMA NOTED. L LEG WRAPPED IN TOREY BANDAGES AND ELEVATED ON TWO PILLOWS. PT DENIES ANY FURTHER NEEDS AT THIS TIME WILL CONTINUE TO OBSERVE.
[2020-01-02 19:55] LABS: Hematocrit 30.2 % (37.0-47.0)
[2020-01-02 20:12] LABS: POC Glucose,Bedside 217 (70-110)
[2020-01-02 20:14] LABS: Hemoglobin 9.6 g/dL (12.2-16.2)
--- NOTE | 2020-01-02 20:20 | PC.NURSE ---
RN ASSISTED PT TO BSC AT THIS TIME WITH WALKER, PT TOLERATED WELL. VOIDED LARGE CLEAR YELLOW AMOUNT.
--- NOTE | 2020-01-02 23:17 | PC.NURSE ---
PT MEDICATED PER EMAR AT THIS TIME R/T PAIN 03/12 R/T L BKA. ICE PACK APPLIED TO L LEG. WILL CONTINUE TO OBSERVE.
[2020-01-03] VITALS: BP 156/77; PULSE 84; RESP 16; TEMP 36.7; O2SAT 93
[2020-01-03 04:00] VITALS: BP 114/54; PULSE 62; RESP 20; TEMP 36.9; O2SAT 95
[2020-01-03 05:00] VITALS: BMI 40.8
--- NOTE | 2020-01-03 05:17 | PC.NURSE ---
NURSE NOTIFIED OF 10 POUND WEIGHT GAIN
--- NOTE | 2020-01-03 05:31 | INFXCTL.NOTE ---
11 POUND WEIGHT GAIN NOTED TO DAILY WEIGHT. PT ASSISTED TO BSC VOIDED 400 ML CLEAR YELLOW URINE. REWEIGHED NOW NOTED ONLY 8 POUND GAIN. BILATERAL LUNG SOUNDS CLEAR. THIS MIGHT BE R/T DRESSING ON L BKA??
--- NOTE | 2020-01-03 05:33 | PC.NURSE ---
11 POUND WEIGHT GAIN NOTED AT THIS TIME. PT ASSISTED TO BSC. PT VOIDED 400 ML CLEAR URINE AT THIS TIME. REWEIGHED AT THIS TIME NOW +8 POUND GAIN NOTED. BILATERAL LUNG SOUNDS CLEAR. MAY BE RELATED TO NEW L BKA DRESSING??
--- NOTE | 2020-01-03 05:55 | PC.NURSE ---
RN PULLED LABS FROM PICC AT THIS TIME. LAB AT BEDSIDE TO VERIFY.
[2020-01-03 06:20] LABS: Basophils % 0.6 % (0.1-2.0); Eosinophils # 0.2 K/mm3 (0.0-0.4); Hematocrit 30.9 % (37.0-47.0); Hemoglobin 9.5 g/dL (12.2-16.2); Lymphocytes # 1.9 K/mm3 (0.7-4.5); Lymphocytes % 25.6 % (10-50); Mean Corpuscular HGB Conc 30.9 g/dL (31.8-35.4); Mean Corpuscular Hemoglobin 24.7 pg (27.0-31.2); Mean Platelet Volume 8.4 fl (7.4-10.4); Monocytes # 0.3 K/mm3 (0.1-1.0); Monocytes % 4.5 % (1.7-9.3); Neutrophils % 66.4 % (37.0-80.0); Platelet Count 317 K/mm3 (142-424); Red Blood Count 3.85 M/mm3 (4.20-5.40); Red Cell Distribution Width 17.3 % (11.5-17.5); White Blood Count 7.5 K/mm3 (4.8-10.8)
[2020-01-03 06:25] LABS: POC Glucose,Bedside 173 (70-110)
[2020-01-03 06:33] LABS: Chloride 109 mmol/L (98-107); Sodium 138 mmol/L (136-145)
[2020-01-03 06:36] LABS: Blood Urea Nitrogen 22 mg/dl (7-17); Creatinine Clearance Estimated 69 mL/min (50-200); Estimated Glomerular Filt Rate 32 ml/min (>60); GFR (African American) 39 ML/MIN (>60)
[2020-01-03 06:37] LABS: Carbon Dioxide 25 mmol/L (22.0-30.0); Glucose 190 mg/dl (74-100)
[2020-01-03 07:53] VITALS: BP 173/77; PULSE 88; RESP 18; TEMP 36.7; O2SAT 93
[2020-01-03 09:08] LABS: Coronavirus 19 IgG Antibody Negative (Negative); Coronavirus 19 IgM Antibody Negative (Negative)
--- NOTE | 2020-01-03 09:10 | PC.NURSE ---
AVELINO PHAN, AWARE OF WEIGHT GAIN. NO NEW ORDERS AT THIS TIME.
--- NOTE | 2020-01-03 09:26 | HMH.ACPN2 ---
Internal Medicine - PN: Subj *Date: 01/03/20 *Time: 09:26 Interval history: Patient sitting up in chair reports pain is under control, denies concerns/needs. H/H today 9.5/30.9, SARS-CoV-2 IgG and IgM negative Exam Vital signs and Labs for Last 24 Hours: Temp Pulse Resp BP Pulse Ox 98.1 F 88 18 173/77 H 93 L 01/03/20 07:53 01/03/20 07:53 01/03/20 07:53 01/03/20 07:53 01/03/20 07:53 Laboratory Results - last 24 hr 01/02/20 08:25: Vancomycin Trough 15.7 H 01/02/20 10:30: Blood Type B Positive, Antibody Screen Negative, Crossmatch (AHG) See Detail 01/02/20 11:32: POC Glucose 213 H 01/02/20 11:33: Blood Type Confirm B Positive 01/02/20 17:07: POC Glucose 147 H 01/02/20 19:48: Hgb 9.6 L D, Hct 30.2 L 01/02/20 20:04: POC Glucose 217 H 01/03/20 05:50: WBC 7.5, RBC 3.85 L, Hgb 9.5 L, Hct 30.9 L, MCV 80.0 L, MCH 24.7 L, MCHC 30.9 L, RDW 17.3, Plt Count 317, MPV 8.4, Neut % (Auto) 66.4, Lymph % (Auto) 25.6, Haakon % (Auto) 4.5, Eos % (Auto) 3.0, Baso % (Auto) 0.6, Neut # (Auto) 5.0, Lymph # (Auto) 1.9, Haakon # (Auto) 0.3, Eos # (Auto) 0.2, Baso # (Auto) 0.0 01/03/20 05:50: Sodium 138, Potassium 4.0, Chloride 109 H, Carbon Dioxide 25, Anion Gap 8.0, BUN 22 H, Creatinine 1.70 H, Estimated Creat Clear 69, Estimated GFR 32 L, Est GFR ( Amer) 39 L, Glucose 190 H, Calcium 8.0 L 01/03/20 05:50: SARS-CoV-2 IgG Ab (Rapid) Negative, SARS-CoV-2 IgM Ab (Rapid) Negative 01/03/20 05:56: POC Glucose 173 H I & O for Last 24 hours: Intake & Output 12/31/19 01/01/20 01/02/20 01/03/20 23:59 23:59 23:59 23:59 Intake Total 2163 / 2163 4318 / 4318 2577 / 2577 2160 / 2160 Output Total 430 / 430 750 / 750 200 / 200 Balance 1733 / 1733 3568 / 3568 2577 / 2577 1960 / 1960 Weight 229 lb 229 lb 0.012 oz 229 lb 0.012 oz 239 lb 7 oz Microbiology Reports for the Last 24 Hours: Microbiology 12/29/19 16:52 Leg,Left - Wound Gram Stain - Final 12/29/19 16:52 Leg,Left - Wound Wound Culture - Preliminary NO GROWTH AFTER 4 DAYS - Constitutional no acute distress - *Routine HEENT Exam Head: Present: normocephalic Eye: Present: PERRL. Absent: periorbital tenderness ENT: Present: mucous membranes moist - *Routine Neck Exam Present: full ROM, trachea midline. Absent: JVD, tracheal deviation - *Routine Respiratory Exam Present: CTA bilaterally. Absent: accessory muscle use - *Routine Cardiovascular Exam Present: RRR - *Routine Abdominal Exam Present: soft, normoactive bowel sounds. Absent: tenderness, firm - *Routine Extremities Exam Present: amputation Comments: Left BKA with dressing C/D/ - *Routine Skin Exam Present: warm, wounds. Absent: jaundice Comments: Dressing to left lower BKA C/D/I - *Routine Neurological Exam Present: alert, oriented X3. Absent: altered mental status - Routine Psychiatric Exam Present: normal affect Assessment and Plan (1) Status post below-knee amputation of left lower extremity Current visit: Yes Status: Acute Category: Surgical Code(s): Z89.512 - Acquired absence of left leg below knee (2) Diabetic infection of left foot Current visit: No Status: Acute Category: Medical Code(s): E11.628 - Type 2 diabetes mellitus with other skin complications; L08.9 - Local infection of the skin and subcutaneous tissue, unspecified (3) Foot ulcer Current visit: No Status: Acute Qualifiers: Laterality: left Non-pressure ulcer stage: with fat layer exposed Qualified Code(s): L97.522 - Non-pressure chronic ulcer of other part of left foot with fat layer exposed Category: Medical Code(s): L97.509 - Non-pressure chronic ulcer of other part of unspecified foot with unspecified severity (4) Osteomyelitis of left foot Current visit: No Status: Acute Qualifiers: Osteomyelitis type: unspecified type Qualified Code(s): M86.9 - Osteomyelitis, unspecified Category: Medical Code(s): M86.9 - Osteomyelitis, unspe
[2020-01-03 11:33] LABS: POC Glucose,Bedside 242 (70-110)
--- NOTE | 2020-01-03 12:15 | SW/DCPLANNER ---
This patient has been accepted to [facility] and can discharge once medically stable. I have notified MD of situation.
--- NOTE | 2020-01-03 12:21 | P.DS_ITS ---
General - General Admission date:: 12/29/19 Discharge date: 01/03/20 HPI HPI: pt with infected lt foot with assoc diabetes mellitus - she had surg per dr pederson - have reviewed the clinical and operative findings and procedure performed with the patient. Patient is doing well and reports no problems. I would change the dressings and remove the drain tomorrow and possibly patient could be discharged after that. Patient was seen by physical therapy for gait training and management of the amputation stump. I had a lengthy discussion with the patient regarding cessation of smoking and better diabetic control and healthy eating. Patient says she stopped smoking few days ago. I have again stressed the fact that there is no guarantee that the wound is going to heal uneventfully and she may need further procedures including a proximal amputatio n. This is more likely to happen if she continues to smoke and does not maintain strict diabetic control, and continues to eat unhealthy diet. All the questions were answered and she verbalized a good understanding. Continue medical management as per Dr. Nguyen. Patient is a 49-year-old female with multiple medical problems including gangrene of the left foot, diabetic infection left foot, Charcot's arthropathy, osteomyelitis left foot, acute on chronic kidney injury, small vessel arterial disease due to type 2 diabetes mellitus, class II obesity, tobacco abuse, osteomyelitis, obstructive sleep apnea, coronary artery disease, chronic renal failure, hypertension, hyperlipidemia and peripheral arterial disease with previous multiple foot surgeries on her left foot. She was referred to me by Dr. 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 Patient has history of peripheral vascular disease and diabetic foot ulcerations/infections for a long time with multiple foot surgeries. More recently she had a left Chopart's amputation on 11/23/[address] Shipley. This subsequently got infected leading to nonhealing ulcer and osteomyelitis. As she failed to respond satisfactorily to IV antibiotics, she is referred to my office for consideration for left below-knee amputation. Patient states she has had extensive discussion with Dr. Shipley about this and wants to go ahead with the surgery. She says she is feeling well within herself and denies any fevers, chills or rigors. No history of any nausea or vomiting. She states she's having pain to the foot. She recently had coronary artery stenting and is on oral aspirin and Plavix. She is on IV vancomycin and Invanz through a PICC line. Following assessment in the office, I had a detailed discussion regarding management options with the patient and family; patient elected to proceed with a LEFT below-knee amputation. I have discussed about the procedure, risks and benefits and alternatives. The patient and her sister expressed a full understanding and wished to proceed. I told her that we would plan on doing a left below-knee amputation but if the circulation is poor at this level, we would go ahead and perform an above-knee amputation. The complications discussed include but are not limited to infection, bleeding, injury to nerves and blood vessels, wound healing problems, prolonged pain and swelling, tender scar, further infection requiring oral or IV antibiotics, phantom pain, CRPS (complex regional pain syndrome- pain, sensory and temperature changes, swelling and stiffness), incomplete relief of pain, incomplete return of function, DVT, PE, ring sequestrum, likely need for further surgery in future and anesthetic problems including stroke, heart attack, and . I have discussed how there is a small but real possibility of loss of use of the limb, loss of the limb (prox
--- NOTE | 2020-01-03 13:59 | PC.NURSE ---
REPORT GIVEN TO BENNETT EDEN AT [facility]. SPOKE WITH SYLVESTER YOU, AT 1350 WHO STATED THAT PICC IS TO STAY IN PLACE.
--- NOTE | 2020-01-03 14:45 | PC.NURSE ---
DR. JONES AT BEDSIDE DOING DRESSING CHANGE. HE STATED GINA MANOR IS TO DO NO DRESSING CHANGED, IF THEY HAVE ANY PROBLEMS TO CALL HIS OFFICE.
--- NOTE | 2020-01-03 15:50 | HMH.ORTHPN ---
Subjective Date: 01/03/20 Time: 14:30 Principal diagnosis: Status post below-knee amputation, left Interval history: Patient is status post left below-knee amputation post op day # 5. Patient is sitting out on a chair and says she is doing well and reports no problems. Patient has some pain and says it's well-controlled with medication. No history of any nausea or vomiting. No history of any cough, chest pain, shortness of breath or palpitations. Patient says she is eating and drinking well. No history of any fevers, chills or rigors. She is being discharged to a half-way facility today. PN: Obj Ex Vital signs: Temp Pulse Resp BP Pulse Ox 98.1 F 88 18 173/77 H 93 L 01/03/20 07:53 01/03/20 07:53 01/03/20 07:53 01/03/20 07:53 01/03/20 07:53 Narrative: Laboratory Results - last 24 hr 01/02/20 10:30: Blood Type B Positive, Antibody Screen Negative, Crossmatch (AHG) See Detail 01/02/20 17:07: POC Glucose 147 H 01/02/20 19:48: Hgb 9.6 L D, Hct 30.2 L 01/02/20 20:04: POC Glucose 217 H 01/03/20 05:50: WBC 7.5, RBC 3.85 L, Hgb 9.5 L, Hct 30.9 L, MCV 80.0 L, MCH 24.7 L, MCHC 30.9 L, RDW 17.3, Plt Count 317, MPV 8.4, Neut % (Auto) 66.4, Lymph % (Auto) 25.6, Esmeralda % (Auto) 4.5, Eos % (Auto) 3.0, Baso % (Auto) 0.6, Neut # (Auto) 5.0, Lymph # (Auto) 1.9, Esmeralda # (Auto) 0.3, Eos # (Auto) 0.2, Baso # (Auto) 0.0 01/03/20 05:50: Sodium 138, Potassium 4.0, Chloride 109 H, Carbon Dioxide 25, Anion Gap 8.0, BUN 22 H, Creatinine 1.70 H, Estimated Creat Clear 69, Estimated GFR 32 L, Est GFR ( Amer) 39 L, Glucose 190 H, Calcium 8.0 L 01/03/20 05:50: SARS-CoV-2 IgG Ab (Rapid) Negative, SARS-CoV-2 IgM Ab (Rapid) Negative 01/03/20 05:56: POC Glucose 173 H 01/03/20 11:08: POC Glucose 242 H Microbiology 12/29/19 16:52 Leg,Left - Wound Gram Stain - Final 12/29/19 16:52 Leg,Left - Wound Wound Culture - Preliminary NO GROWTH AFTER 4 DAYS Exam General appearance: alert, active, awake, no acute distress ENT: Mucous membranes moist Cardiovascular: regular rate & rhythm, normal peripheral pulses Respiratory: No respiratory distress noted, speaks in full sentences ABD: soft and non tender Neuro: alert, awake, oriented x 3 Psych: Appropriate mood and affect On examination of the left lower extremity, the dressings and the splint are in place; the bandages are clean, dry and intact. No soakage or strikethrough of the dressings noted. I have changed the dressings today. There is minimal dried blood on the dressings. No active bleeding noted. The stump looks healthy and suture line well vascularized. No excessive swelling/edema of the stump noted. She is able to actively straight leg raise. Progress Note: A&P (1) Status post below-knee amputation of left lower extremity Status: Acute Current Visit: Yes (2) Diabetic infection of left foot Status: Acute Current Visit: No (3) Foot ulcer Status: Acute Current Visit: No (4) Osteomyelitis of left foot Status: Acute Current Visit: No Assessment and Plan for All Diagnoses:: I have reviewed the clinical findings and progress with the patient. Patient is doing well and reports no problems. I have changed the dressings today and the stump looks healthy and the suture line is healthy and viable; continue elevation, icing, as needed pain medication. The intraoperative cultures are negative so far. Patient is being discharged to a half-way facility today. Follow-up in my office in 1 weeks time for dressing changes/application of stump secondary connector armature. All the questions were answered and she verbalized a good understanding. Continue medical management as per Dr. Nguyen.
[2020-01-04 13:49] LABS: Covid-19 Nasal PCR Sendout Lex NOT DETECTED
== END 2020-01-03 15:45 | DRG 239 ==
PROVIDERS: Nurse Anesthetist, Certified Registered; Nurse Practitioner Family; Orthopaedic Surgery; Admitting Provider Emergency Medicine; PCP Emergency Medicine; Visit Provider Emergency Medicine
PROC: 0Y6J0Z2 Detachment at Left Lower Leg, Mid, Open Approach (ICD-10-PCS; CPT 27880; principal; 2019-12-29 11:00)
DX: E11.52 Type 2 diabetes mellitus with diabetic peripheral angiopathy with gangrene (principal); A48.0 Gas gangrene; M86.172 Other acute osteomyelitis, left ankle and foot; I13.0 Hypertensive heart and chronic kidney disease with heart failure and stage 1 through stage 4 chronic kidney disease, or unspecified chronic kidney disease; M86.672 Other chronic osteomyelitis, left ankle and foot; E11.610 Type 2 diabetes mellitus with diabetic neuropathic arthropathy; T87.81 Dehiscence of amputation stump; E11.69 Type 2 diabetes mellitus with other specified complication; E11.65 Type 2 diabetes mellitus with hyperglycemia; E11.22 Type 2 diabetes mellitus with diabetic chronic kidney disease; N18.9 Chronic kidney disease, unspecified; Z79.4 Long term (current) use of insulin; Z88.2 Allergy status to sulfonamides; I50.9 Heart failure, unspecified; I25.10 Atherosclerotic heart disease of native coronary artery without angina pectoris; Z79.82 Long term (current) use of aspirin; Z79.899 Other long term (current) drug therapy
CPT/HCPCS: 27880; 36415; 71045; 80048; 80053; 80202; 82962; 83036; 84132; 84703; 85007; 85014; 85018; 85025; 85610; 86140; 86328; 86850; 87070; 87075; 87205; 88307; 94761; 96374; 97110; 97116; 97163; 97166; 97530; A4649; J3370; P9016; U0004

== ENCOUNTER 2020-01-17 12:08 | Outpatient (CLI) | payer MEDICARE, MEDICAID, SELFPAY ==
[2020-01-17 12:15] VITALS: BP 173/75; PULSE 82; RESP 18; O2SAT 97
== END 2020-01-17 12:15 | disposition home or self-care (01) ==
LOC: INF 12:08
PROVIDERS: PCP Emergency Medicine; Visit Provider Orthopaedic Surgery
DX: Z89.512 Acquired absence of left leg below knee (principal)
CPT/HCPCS: G0463

== ENCOUNTER → 2020-03-23 17:48 | Outpatient (CLI) | payer MEDICARE, MEDICAID, SELFPAY ==
[2020-03-23 18:23] LABS: Basophils % 0.4 % (0.1-2.0); Eosinophils # 0.1 K/mm3 (0.0-0.4); Eosinophils % 1.3 % (0.1-12.0); Hematocrit 39.6 % (37.0-47.0); Hemoglobin 12.9 g/dL (12.2-16.2); Lymphocytes # 2.9 K/mm3 (0.7-4.5); Lymphocytes % 30.4 % (10-50); Mean Corpuscular HGB Conc 32.5 g/dL (31.8-35.4); Mean Corpuscular Hemoglobin 25.7 pg (27.0-31.2); Mean Platelet Volume 8.1 fl (7.4-10.4); Monocytes # 0.3 K/mm3 (0.1-1.0); Neutrophils # 6.1 K/mm3 (1.8-7.8); Neutrophils % 64.9 % (37.0-80.0); Platelet Count 332 K/mm3 (142-424); Red Blood Count 5.02 M/mm3 (4.20-5.40); White Blood Count 9.5 K/mm3 (4.8-10.8)
[2020-03-23 19:03] LABS: Chloride 102 mmol/L (98-107); Sodium 137 mmol/L (136-145)
[2020-03-23 19:04] LABS: Potassium 5.8 mmoL/L (3.5-5.1)
[2020-03-23 19:06] LABS: Alanine Aminotransferase 49 U/L (12-78); Albumin Level 3.8 g/dl (3.5-5.0); Albumin/Globulin Ratio 1.5 (1.1-1.8); Alkaline Phosphatase 183 U/L (38-126); Anion Gap 17.8 mEq/L (5-15); Aspartate Amino Transferase 36 U/L (14-36); Bilirubin,Total 0.3 mg/dl (0.2-1.3); Blood Urea Nitrogen 47 mg/dl (7-17); Carbon Dioxide 23 mmol/L (22.0-30.0); Cholesterol 186 mg/dl (140-200); Estimated Glomerular Filt Rate 32 ml/min (>60); GFR (African American) 39 ML/MIN (>60); Globulin 2.5 g/dL (1.3-3.2); Total Protein,Serum 6.3 g/dl (6.3-8.2)
[2020-03-23 19:07] LABS: Calcium 9.4 mg/dl (8.4-10.2); HDL Cholesterol 37 mg/dl (40-60)
[2020-03-23 19:18] LABS: Direct LDL Cholesterol 89.68 mg/dL (100-129); Hemoglobin A1C 10.5 % (4.0-6.0)
[2020-03-23 19:24] LABS: T4 (Thyroxine) 8.7 ug/dl (5.53-11.0)
[2020-03-23 19:38] LABS: Thyroid Stimulating Hormone 2.03 uIU/mL (0.465-4.68)
[2020-03-23 20:27] LABS: Glucose 406 mg/dl (74-100); Triglycerides 458 mg/dl (30-150)
== END ==
PROVIDERS: Visit Provider Nurse Practitioner Family
DX: E11.628 Type 2 diabetes mellitus with other skin complications (principal); E78.5 Hyperlipidemia, unspecified; G47.33 Obstructive sleep apnea (adult) (pediatric); I10 Essential (primary) hypertension; L08.9 Local infection of the skin and subcutaneous tissue, unspecified; I96 Gangrene, not elsewhere classified; Z79.4 Long term (current) use of insulin
CPT/HCPCS: 80053; 80061; 83036; 84436; 84443; 85025

== ENCOUNTER → 2020-03-27 13:17 | Outpatient (CLI) | payer MEDICARE, MEDICAID, SELFPAY ==
[2020-03-27 14:34] LABS: Anion Gap 19.3 mEq/L (5-15); Blood Urea Nitrogen 32 mg/dl (7-17); Calcium 9.3 mg/dl (8.4-10.2); Carbon Dioxide 26 mmol/L (22.0-30.0); Chloride 100 mmol/L (98-107); Estimated Glomerular Filt Rate 32 ml/min (>60); GFR (African American) 39 ML/MIN (>60); Potassium 5.3 mmoL/L (3.5-5.1); Sodium 140 mmol/L (136-145)
[2020-03-27 14:45] LABS: Glucose 445 mg/dl (74-100)
== END ==
PROVIDERS: Visit Provider Nurse Practitioner Family
DX: R79.89 Other specified abnormal findings of blood chemistry (principal)
CPT/HCPCS: 36415; 80048

== ENCOUNTER → 2020-05-01 09:31 | Outpatient (CLI) | payer MEDICARE, MEDICAID, SELFPAY ==
[2020-05-02 14:02] LABS: Creatinine,Urine Random 28 mg/dL (Not Estab.)
[2020-05-02 14:16] LABS: Microalbumin/Creatinine Ratio 788.5
== END ==
PROVIDERS: Visit Provider Nurse Practitioner Family
DX: E11.9 Type 2 diabetes mellitus without complications (principal); Z79.4 Long term (current) use of insulin
CPT/HCPCS: 82043; 82570

== ENCOUNTER → 2020-07-09 09:50 | Outpatient (POV) | payer MEDICARE, MEDICAID, SELFPAY ==
[2020-07-09 10:23] LABS: Basophils % 0.4 % (0.1-2.0); Eosinophils # 0.1 K/mm3 (0.0-0.4); Eosinophils % 0.7 % (0.1-12.0); Hematocrit 49.6 % (37.0-47.0); Hemoglobin 15.8 g/dL (12.2-16.2); Lymphocytes # 3.3 K/mm3 (0.7-4.5); Lymphocytes % 26.2 % (10-50); Mean Corpuscular HGB Conc 31.8 g/dL (31.8-35.4); Mean Corpuscular Volume 84.8 fl (81-99); Mean Platelet Volume 7.9 fl (7.4-10.4); Monocytes # 0.4 K/mm3 (0.1-1.0); Monocytes % 3.5 % (1.7-9.3); Neutrophils # 8.7 K/mm3 (1.8-7.8); Neutrophils % 69.2 % (37.0-80.0); Platelet Count 421 K/mm3 (142-424); Red Blood Count 5.85 M/mm3 (4.20-5.40); Red Cell Distribution Width 14.9 % (11.5-17.5); White Blood Count 12.5 K/mm3 (4.8-10.8)
[2020-07-09 10:54] LABS: Chloride 104 mmol/L (98-107); Sodium 143 mmol/L (136-145)
[2020-07-09 10:55] LABS: Albumin Level 4.3 g/dl (3.5-5.0); Potassium 4.4 mmoL/L (3.5-5.1)
[2020-07-09 10:57] LABS: Anion Gap 19.4 mEq/L (5-15); Blood Urea Nitrogen 31 mg/dl (7-17); Carbon Dioxide 24 mmol/L (22.0-30.0); Estimated Glomerular Filt Rate 30 ml/min (>60); GFR (African American) 36 ML/MIN (>60); Phosphorous 4.7 mg/dl (2.5-4.5)
[2020-07-09 10:58] LABS: Calcium 9.9 mg/dl (8.4-10.2); Glucose 223 mg/dl (74-100)
[2020-07-09 11:15] LABS: 25-OH Vitamin D, Total 13.5 ng/mL (30-100)
[2020-07-09 21:25] LABS: Intact Parathyroid Hormone 127.9 pg/mL (7.5-53.5)
== END ==
PROVIDERS: Visit Provider Internal Medicine Nephrology
DX: R80.9 Proteinuria, unspecified (principal); E55.9 Vitamin D deficiency, unspecified
CPT/HCPCS: 36415; 80069; 81001; 82306; 82570; 83970; 84155; 85025

== ENCOUNTER 2020-08-21 15:08 | Emergency (ER) | payer MEDICARE, MEDICAID, SELFPAY ==
[2020-08-21 15:21] VITALS: BP 100/63; PULSE 78; RESP 16; TEMP 36.9; O2SAT 98; BMI 29.9
[2020-08-21 15:30] VITALS: BP 100/63; PULSE 78; RESP 16; TEMP 36.9; O2SAT 98; BMI 29.9
--- NOTE | 2020-08-21 15:32 | XR_ITS ---
PROCEDURE: XR RIBS RT MIN 3V W CXR1V CLINICAL INDICATION: pain Right rib pain COMPARISON: CR XR CHEST 2V from 10/24/2019 CR XR CHEST PORTABLE from 11/22/2019 CR XR CHEST PORTABLE PICC PLAC from 12/29/2019 FINDINGS: Multiple views of the right ribs show no obvious fracture. No lytic or blastic change. Consider follow-up in 7-[address] with 3D reformats if pain persists Frontal view of the chest shows no acute finding IMPRESSION: No acute findings. Dictated by: Car Barnhart MD 08/22/2020 06:49 Car Barnhart MD in [place] 08/22/2020 06:49
--- NOTE | 2020-08-21 15:56 | HMH.EDUTC ---
[facility] – [place] Disposition Clinical Impression: Rib pain on right side Disposition: Home, Self-Care Condition on Discharge: Good Instructions: DI for Rib Contusion Additional Instructions: Over the counter Lidocaine patches may help with pain and discomfort of rib strain Return if needed Over the counter Tylenol may help with pain if your doctor has told you that you can take it Follow up with your Family Doctor in the next 48-72 hours if no improvement and immediately if any worsening of symptoms Straight to ER if any life threatening symptoms You had blood in your Urine make sure to follow up for re-evaluation of your urine Referrals: Francisco Greer APRN [Primary Care Provider] - As needed Time of Disposition: 16:29 Medical Decision Making - Mauri Inquiry Pt receiving controlled substance: No Mauri was queried for this patient: No Vital Signs: 08/21/20 15:21 08/21/20 15:30 Temperature 98.4 F 98.4 F Temperature Source Oral Oral Pulse Rate [Right] 78 78 Respiratory Rate 16 16 Blood Pressure [Right Arm] 100/63 L 100/63 L Blood Pressure Mean [Right Arm] 75 75 Blood Pressure Source [Right Arm] Automatic Cuff Automatic Cuff Blood Pressure Position [Right Arm] Sitting Sitting 02 Sat by Pulse Oximetry 98 98 Oxygen Delivery Method Room Air Room Air - Lab Data Lab results reviewed: Yes: I reviewed the patient's lab results. Orders (Tests/Meds): ORDERS Category Date Time Status XR ribs RT min 3V w CXR1V Stat Exams 08/21/20 15:32 Taken - Radiology Data #1 Image(s): Chest (with right ribs) Image Reviewed: Yes I reviewed the patient's radiology image w/the ED provider Preliminary Findings: Normal/NAD, No Fracture Seen [facility] – [place] HPI - General Stated complaint: back pain/side pain Time Seen by Provider: 08/21/20 15:56 Mode of Arrival: Ambulatory Source of Information: Patient Limitations: No Limitations Description of Symptoms (Recalled from Triage Doc. by RN): PATIENT C/O PAIN IN RIGHT SIDE AND BACK HEENT Symptoms (Recalled from RN notes): No Resp Symptoms (Recalled from RN notes): No Skin Symptoms (Recalled from RN notes): No MS Symptoms (Recalled from RN notes): No Functional Status (Recalled from RN notes): WNL - History of Present Illness Provider Complaint: Patient state that last night her and other family members was laughing and she got a sharp pain in her right lower rib area that radiates around right side into back States that pain is worse with movement. State that when she holds pillow on the area it seems to help with the pain States that she is not sure if she may have broke a rib laughing or not Denies problems with urination Denies fever - Related Data Home Medications Medication Instructions Recorded Confirmed furosemide 40 mg tablet 20 mg PO DAILYP PRN #30 tab 09/26/19 07/05/20 L.acidoph,Paracasei, B.lactis 1 each PO DAILY 11/14/19 07/05/20 [Probiotic] Semaglutide [Ozempic] 0.25 mg SQ WEEKLY 12/28/19 07/05/20 carvedilol 3.125 mg tablet 3.125 mg PO ONCE tab 05/01/20 07/05/20 Previous Rx's Medication Instructions Recorded metoclopramide HCl 5 mg tablet 5 mg PO ACHS #90 tab 12/23/19 pantoprazole 40 mg tablet,delayed 40 mg PO DAILY #90 tab 12/23/19 release clopidogrel 75 mg tablet 75 mg PO DAILY #30 tab 12/25/19 pen needle, diabetic 29 gauge x See Rx Instructions .ROUTE 01/27/20 1/ .MEDSUPPLY #100 each blood sugar diagnostic See Rx Instructions .ROUTE 03/02/20 .MEDSUPPLY #100 each galcanezumab-gnlm 120 mg/mL 120 mg SQ MONTHLY #1 ml 03/08/20 subcutaneous pen injector carvedilol 12.5 mg tablet 12.5 mg PO BID #60 tab 03/16/20 aspirin 81 mg tablet,delayed 81 mg PO DAILY #90 tab 03/23/20 release atorvastatin 40 mg tablet 40 mg PO HS #90 tab 03/23/20 insulin glargine 100 unit/mL (3 65 unit SQ HS #20 ml 03/23/20 mL) subcutaneous pen promethazine 25 mg tablet 25 mg PO Q4HP PRN #9 tab 05/01/20 venlafaxine 75 mg capsule,extended 75 mg PO DAILY #90 cap 05/01/20 release 24
[2020-08-21 16:33] VITALS: BP 100/63; PULSE 78; RESP 16; TEMP 36.9; O2SAT 98
[2020-08-21 20:26] LABS: Apearance,Urine Clear (Clear); Color,Urine Yellow (Yellow); Protein,Urine 1+ (Negative)
[2020-08-21 20:27] LABS: Bilirubin,Urine 1+ (Negative); Blood, Urine 2+ (Negative); Glucose,Urine (UA) 1000 (Negative); Ketones,Urine Negative (Negative); UTC Leukocyte Esterase,Urine Negative (Negative); UTC Nitrate,Urine Negative (Negative); Urobilinogen,Urine 0.2 EU/dl (0.2)
== END 2020-08-21 16:35 | disposition home or self-care (01) ==
PROVIDERS: Emergency Provider Nurse Practitioner; PCP Nurse Practitioner Family
DX: R07.81 Pleurodynia (principal); I10 Essential (primary) hypertension; E78.5 Hyperlipidemia, unspecified; K21.9 Gastro-esophageal reflux disease without esophagitis; F41.8 Other specified anxiety disorders; I25.2 Old myocardial infarction; F17.210 Nicotine dependence, cigarettes, uncomplicated; Z88.2 Allergy status to sulfonamides; Z79.899 Other long term (current) drug therapy
CPT/HCPCS: G0463; 71101; 81003; 99202

== ENCOUNTER 2020-09-02 19:23 | Emergency (ER) | payer MEDICARE, MEDICAID, SELFPAY ==
[2020-09-02 19:15] VITALS: BP 173/83; PULSE 78; RESP 18; TEMP 36.8; O2SAT 97; BMI 39.9
--- NOTE | 2020-09-02 19:24 | CT_ITS ---
Procedure: CT ABDOMEN PELVIS WO CON Referring Doctor: Fred Mccauley Patient Age:50Y CLINICAL INDICATION: ruq pain, right flank pain diabetic COMPARISON: CT ABDPELW/O CT ABD PELVIS W/O CONTRAST from 06/06/[address] ABDOMEN PELVIS WO CON from 03/24/2019 TECHNIQUE: 11No IV nor oral contrast axial images obtained with sagittal and coronal reformats. All CT scans at the facility use one or more dose reduction, viz: automated exposure control, ma/kV adjustment per patient size (including targeted exams where dose is matched to indication, i.e. head), or iterative reconstruction technique. FINDINGS: Lower thorax: No significant acute findings but wispy density at lingula reflecting scarring and atelectasis similar appearance 2019 Heart extensive coronary artery calcification and/or stents.. Small pericardial effusion only slightly more evident than on 2015 A ABDOMEN: Liver: The stable unremarkable. No masses or biliary dilatation. Gallbladder: Nondistended. No radio opaque stones. Pancreas: No masses or peripancreatic fluid collections. Spleen: unremarkable Adrenals: 1.5 and smaller 0.8 cm right adrenal myelolipomas. Subcentimeter peripheral calcified right adrenal nodule, but these features unchanged. Kidneys/ureters: unremarkable no hydronephrosis but no renal calculi PELVIS: Uterus anteverted long thin normal size with IUD in place towards fundus Enlarged right ovary: Measures up to 5 cm size maximally AP dimension times 4 cm height, 4 cm wide.. In 2019 of this right ovary/right adnexal mass measuring to 4.2 cm; measuring [address] the the the suggest pelvic ultrasound follow-up. Left ovary is small. There may be a generous thickness left fallopian tube leading it. Urinary bladder. Borderline wall thickening. Period bladder: Nondistended. No obvious stones or masses. GI tract== Stomach. Food filled a moderate distended stomach. Has the patient just eaten?. Duodenal loop unremarkable. Small bowel satisfactory. Terminal ileum unremarkable. Appendix. Not well visualized but no good evidence of appendicitis. Large bowel: moderate solid stool throughout the right and transverse colon with. There is some radiopaque material within the mild/moderate solid stool throughout sigmoid and left colon. No free fluid pelvis. Upper normal wall thickness superior rectum left Peritoneum: No abnormal fluid collections. No obvious inflammatory changes. No free air. Lymph nodes: No enlarged lymph nodes apparent. A few small scattered nodes are seen posterior to the pancreas and towards naye hepatis and along the left periaortic region-these appear fairly stable and not significant enlarged. Vasculature: The minimal vascular calcification abdominal aorta. No the aneurysm. The no retroperitoneal hemorrhage evident. Bones: No acute fracture no osseous lesions. Degenerative changes most evident lower thoracic spine Left hip ORIF. IMPRESSION: . no prominent acute findings abdomen pelvis . Enlarged 5 cm right ovary-suggest pelvic ultrasound follow-up. . IUD in place-stable. . Moderately distended food filled stomach-has basin just eaten?. If not this could reflect some relative gastro paresis . Small volume pericardial effusion noted.. The coronary artery calcifications and stents. . Basically stable right adrenal nodule, probable small lipoma or myelolipoma with scant change since studies dating back to 2014. Dictated by: Car Nevarez MD 09/02/2020 22:34 Car Nevarez MD in [facility] 09/02/2020 22:34
[2020-09-02 19:33] LABS: Basophils % 0.5 % (0.1-2.0); Eosinophils # 0.1 K/mm3 (0.0-0.4); Eosinophils % 1.3 % (0.1-12.0); Hematocrit 45.9 % (37.0-47.0); Lymphocytes # 2.4 K/mm3 (0.7-4.5); Lymphocytes % 25.1 % (10-50); Mean Corpuscular HGB Conc 32.7 g/dL (31.8-35.4); Mean Corpuscular Hemoglobin 27.2 pg (27.0-31.2); Mean Corpuscular Volume 83.1 fl (81-99); Mean Platelet Volume 7.8 fl (7.4-10.4); Monocytes # 0.3 K/mm3 (0.1-1.0); Monocytes % 3.3 % (1.7-9.3); Neutrophils # 6.7 K/mm3 (1.8-7.8); Neutrophils % 69.8 % (37.0-80.0); Platelet Count 342 K/mm3 (142-424); Red Blood Count 5.53 M/mm3 (4.20-5.40); Red Cell Distribution Width 15.9 % (11.5-17.5); White Blood Count 9.7 K/mm3 (4.8-10.8)
[2020-09-02 19:49] LABS: Alanine Aminotransferase 17 U/L (12-78); Albumin Level 4.3 g/dl (3.5-5.0); Alkaline Phosphatase 202 U/L (38-126); Amylase 55 U/L (30-110); Anion Gap 14.7 mEq/L (5-15); Aspartate Amino Transferase 24 U/L (14-36); Bilirubin,Direct 0.4 mg/dl (0.0-0.4); Bilirubin,Total 0.4 mg/dl (0.2-1.3); Blood Urea Nitrogen 29 mg/dl (7-17); Carbon Dioxide 26 mmol/L (22.0-30.0); Chloride 108 mmol/L (98-107); Creatinine Clearance Estimated 60 mL/min (50-200); Estimated Glomerular Filt Rate 26 ml/min (>60); GFR (African American) 32 ML/MIN (>60); Glucose 94 mg/dl (74-100); Lipase 169 U/L (23-300); Potassium 3.7 mmoL/L (3.5-5.1); Sodium 145 mmol/L (136-145); Total Protein,Serum 7.8 g/dl (6.3-8.2)
--- NOTE | 2020-09-02 19:58 | HMH.EDNVD ---
ED Disposition Clinical Impression: Obesity, Class II, BMI 35-39.9, Status post below-knee amputation of left lower extremity Abdominal pain Qualifiers: Abdominal location: right upper quadrant Qualified Code(s): R10.11 - Right upper quadrant pain Ovarian cyst Qualifiers: Laterality: right Qualified Code(s): N83.201 - Unspecified ovarian cyst, right side CRF (chronic renal failure) Qualifiers: Chronic kidney disease stage: stage 3 (moderate) Chronic kidney disease stage 3 subtype: unspecified whether 3a or 3b Qualified Code(s): N18.30 - Chronic kidney disease, stage 3 unspecified Disposition: Home, Self-Care Condition on Discharge: Good Instructions: DI for Acute Abdominal Pain Referrals: Francisco Greer APRN [Primary Care Provider] - - Critical Care Critical Care Time: No Attestation: On 09/02/20, the high probability of a clinically significant, sudden or life threatening deterioration of the following system(s) required my full and direct attention, intervention and personal management. The time I documented below is in addition to time spent performing reported procedures but includes the following listed in this critical care notation. Medical Decision Making - Medical Records Medical records reviewed: Yes: I reviewed the patient's medical records. - Mauri Inquiry Pt receiving controlled substance: No Vital Signs: 09/02/20 19:15 Temperature 98.2 F Temperature Source Oral Pulse Rate [Right Brachial] 78 Respiratory Rate 18 Blood Pressure [Right Arm] 173/83 H Blood Pressure Mean [Right Arm] 113 Blood Pressure Source [Right Arm] Automatic Cuff Blood Pressure Position [Right Arm] Sitting 02 Sat by Pulse Oximetry 97 Oxygen Delivery Method Room Air - Lab Data Lab results reviewed: Yes: I reviewed the patient's lab results. Lab Results 09/02/20 19:20: WBC 9.7, RBC 5.53 H, Hgb 15.0, Hct 45.9, MCV 83.1, MCH 27.2, MCHC 32.7, RDW 15.9, Plt Count 342, MPV 7.8, Neut % (Auto) 69.8, Lymph % (Auto) 25.1, [place] % (Auto) 3.3, Eos % (Auto) 1.3, Baso % (Auto) 0.5, Neut # (Auto) 6.7, Lymph # (Auto) 2.4, [place] # (Auto) 0.3, Eos # (Auto) 0.1, Baso # (Auto) 0.0 09/02/20 19:20: Sodium 145, Potassium 3.7, Chloride 108 H, Carbon Dioxide 26, Anion Gap 14.7, BUN 29 H, Creatinine 2.00 H, Estimated Creat Clear 60, Estimated GFR 26 L, Est GFR ( Amer) 32 L, Glucose 94, Calcium 10.0, Total Bilirubin 0.4, Direct Bilirubin 0.4, Conjugated Bilirubin 0.0, Indirect Bilirubin 0.0, Unconjugated Bilirubin 0.0, AST 24, ALT 17, Alkaline Phosphatase 202 H, Total Protein 7.8, Albumin 4.3, Amylase 55, Lipase 169 09/02/20 19:20: SARS-CoV-2 IgG Ab (Rapid) Negative, SARS-CoV-2 IgM Ab (Rapid) Negative 09/02/20 20:50: Urine Color Yellow, Urine Appearance Clear, Urine pH 6.0, Ur Specific [place] >= 1.030, Urine Protein 3+, Urine Glucose (UA) Trace, Urine Ketones Negative, Urine Blood 2+, Urine Nitrate Negative, Urine Bilirubin Negative, Urine Urobilinogen 0.2, Ur Leukocyte Esterase Negative, Urine RBC 5-10, Ur Squamous Epith Cells 5-10, Amorphous Sediment Trace, Urine Mucus Trace, Urine Yeast Occasional Result diagrams: 09/02/20 19:20 09/02/20 19:20 Orders (Tests/Meds): ED MEDICATIONS Generic Name Dose Route Start Last Admin Trade Name Freq PRN Reason Stop Dose Admin Sodium Chloride 1,000 mls @ 999 mls/hr 09/02/20 19:30 09/02/20 19:32 Sod Chlor 0.9% 1000ml Bag IV 09/02/20 20:30 999 mls/hr .Q1H1M JASEN Administration Discontinued Medications Generic Name Dose Route Start Last Admin Trade Name Freq PRN Reason Stop Dose Admin Ketorolac Tromethamine 30 mg 09/02/20 19:24 09/02/20 19:31 Ketorolac 30mg/Ml Vial IV 09/02/20 19:25 30 mg ONCE ONE Administration Ondansetron HCl 4 mg 09/02/20 19:24 09/02/20 19:31 Ondansetron 4mg/2ml Vial IV 09/02/20 19:25 4 mg ONCE ONE Administration ORDERS Category Date Time Status CT abdomen pelvis wo con Stat Cat Scan 09/02/20 19:24 Taken - CT Data CT Scan
[2020-09-02 20:32] LABS: Coronavirus 19 IgG Antibody Negative (Negative); Coronavirus 19 IgM Antibody Negative (Negative)
[2020-09-02 21:05] LABS: Microscopic, Urine URINE MICROSCOPIC (MICROSCOPIC)
[2020-09-02 21:11] LABS: Appearance,Urine CLEAR (Clear); Bilirubin,Urine Negative (Negative); Blood, Urine 2+ (Negative); Color,Urine YELLOW (Yellow); Glucose,Urine (UA) TRACE (Negative); Ketones,Urine Negative (Negative); Leukocyte Esterase,Urine Negative (Negative); Nitrate,Urine Negative (Negative); Protein,Urine 3+ (Negative); Specific Gravity, Urine >= 1.030 (1.005-1.030); Urobilinogen,Urine 0.2 EU/dl (0.2)
[2020-09-02 21:14] LABS: Amorphous Sediment,Urine Trace /lpf; Mucus,Urine Trace /lpf; Yeast,Urine Occasional /lpf
[2020-09-02 21:44] VITALS: BP 121/74; PULSE 73; RESP 15; TEMP 36.7; O2SAT 98
== END 2020-09-02 22:07 | disposition home or self-care (01) ==
PROVIDERS: Emergency Provider Emergency Medicine; PCP Nurse Practitioner Family
DX: N83.201 Unspecified ovarian cyst, right side (principal); N18.30 Chronic kidney disease, stage 3 unspecified; E66.9 Obesity, unspecified; Z68.39 Body mass index [BMI] 39.0-39.9, adult; E11.9 Type 2 diabetes mellitus without complications; Z01.84 Encounter for antibody response examination; F41.8 Other specified anxiety disorders; I25.10 Atherosclerotic heart disease of native coronary artery without angina pectoris; K21.9 Gastro-esophageal reflux disease without esophagitis; E78.5 Hyperlipidemia, unspecified; I10 Essential (primary) hypertension; F17.210 Nicotine dependence, cigarettes, uncomplicated; Z88.2 Allergy status to sulfonamides; Z79.899 Other long term (current) drug therapy
CPT/HCPCS: 74176; 80048; 80076; 81001; 82150; 83690; 85025; 86328; 96365; 96375; 99282; J2405

== ENCOUNTER → 2020-09-04 08:25 | Outpatient (CLI) | payer MEDICARE, MEDICAID, SELFPAY ==
--- NOTE | 2020-09-04 08:25 | US_ITS ---
PROCEDURE: US GALLBLADDER CLINICAL INDICATION: Abd pain Right upper quadrant pain and vomiting COMPARISON: No exams were available for comparison FINDINGS: Pancreas: Pancreas is not well delineated due to overlying bowel gas. CT or MRI without and with contrast with pancreatic protocol may provide further evaluation if clinically desired. Liver: Unremarkable. There is appropriate direction of blood flow within a non dilated portal vein. Right kidney: Unremarkable appearing. No hydronephrosis. Gallbladder: No stones are evident. There is no gallbladder wall thickening. Common duct is normal in diameter. IMPRESSION: Negative gallbladder ultrasound. No stones evident. Pancreas is not well delineated due to overlying bowel gas. CT or MRI without and with contrast with pancreatic protocol may provide further evaluation if clinically desired. Dictated by: Car Barnhart MD 09/04/2020 17:09 Car Barnhart MD in [place] 09/04/2020 17:09
== END ==
PROVIDERS: PCP Nurse Practitioner Family; Visit Provider Nurse Practitioner Family
DX: R10.11 Right upper quadrant pain (principal)
CPT/HCPCS: 76705

== ENCOUNTER → 2020-09-21 09:31 | Outpatient (CLI) | payer MEDICARE, MEDICAID, SELFPAY ==
--- NOTE | 2020-09-21 09:31 | NM_ITS ---
PROCEDURE: NM HEPATOBILIARY W PHARM CLINICAL INDICATION: abd pain COMPARISON: No exams were available for comparison TECHNIQUE: 8.41 mCi technetium 99 M Choletec was injected and sequential imaging was obtained followed by injection of 2.1 mCi of CCK. DOSE: FINDINGS: The hepatic phase appear normal. There is prompt activity in the gallbladder and duodenum and proximal small bowel. The gallbladder ejection fraction is calculated to be 17 percent. CCK-The patient did report mild pain or other symptoms during CCK infusion. IMPRESSION: Abnormal study with low ejection fractions suggesting some degree of biliary dyskinesia Dictated by: Dr. Joe Hassan MD 09/21/2020 17:31 Dr. Joe Hassan MD in [place] 09/21/2020 17:31
== END ==
PROVIDERS: PCP Nurse Practitioner Family; Visit Provider Nurse Practitioner Family
DX: R10.11 Right upper quadrant pain (principal)
CPT/HCPCS: 78227; A9537; J2805

== ENCOUNTER → 2020-10-02 13:11 | Outpatient (CLI) | payer MEDICARE, MEDICAID, SELFPAY ==
--- NOTE | 2020-10-02 13:12 | MM_ITS ---
PROCEDURE: MM DIG SCREENING MAMM BI W/CAD Digital Breast Tomosynthesis Included CLINICAL INDICATION: Screening Routine Mammogram There is a history of breast cancer in the patient's paternal grandmother. COMPARISON: MG DMSB DIG MAMM-SCREEN MP W/CAD from 04/30/2017 MG MM DIG SCREENING MAMM BI W/CAD from 03/04/2019 TECHNIQUE: Standard CC and MLO images and 3D Tomosynthesis was obtained. R2 CAD reviewed. FINDINGS: Moderate diffuse fibroglandular densities are seen throughout both breasts. There is a benign-appearing microcalcification left breast. There is no new or suspicious lesion in either breast and no suspicious microcalcifications. IMPRESSION: Fibrofatty parenchyma with no suspicious lesions seen BI-RAD Category: 2 Benign Finding(s) FOLLOW-UP: 1YR 1 Year Follow-up (A letter has been sent to the patient regarding results of the study.) Dictated by: Dr. Joe Hassan MD 10/04/2020 13:56 Dr. Joe Hassan MD in [place] 10/04/2020 13:56
--- NOTE | 2020-10-02 13:12 | US_ITS ---
PROCEDURE: US TRANSVAGINAL CLINICAL INDICATION: Check IUD placement COMPARISON: No exams were available for comparison FINDINGS: UTERUS: 8cm x 4cmx 2cm with a combined endometrial thickness of 7mm LEFT OVARY: [id number] with a volume of 2ml. RIGHT OVARY: [id number] with a volume of 34.9ml. There is an IUD in place in the fundal area of the endometrium. There is a simple appearing 4 cm right ovarian cyst. No cul-de-sac fluid is evident. Small amount fluid is present within the lower aspect of the endometrial canal. IMPRESSION: 1. IUD in place 2. Small amount fluid within the lower endometrial canal 3. 4 cm right ovarian cyst. Follow-up suggested to confirm resolution or stability Dictated by: Car Barnhart MD 10/02/2020 17:53 Car Barnhart MD in [place] 10/02/2020 17:53
== END ==
PROVIDERS: PCP Nurse Practitioner Family; Visit Provider Nurse Practitioner Obstetrics & Gynecology
DX: Z12.31 Encounter for screening mammogram for malignant neoplasm of breast (principal); N83.201 Unspecified ovarian cyst, right side; N83.202 Unspecified ovarian cyst, left side
CPT/HCPCS: 76830; 77063; 77067

== ENCOUNTER → 2020-10-09 16:29 | Outpatient (CLI) | payer MEDICARE, MEDICAID, SELFPAY ==
[2020-10-09 17:02] LABS: Basophils # 0.1 K/mm3 (0-0.2); Basophils % 0.6 % (0.1-2.0); Eosinophils # 0.2 K/mm3 (0.0-0.4); Eosinophils % 1.9 % (0.1-12.0); Hematocrit 39.6 % (37.0-47.0); Hemoglobin 12.5 g/dL (12.2-16.2); Lymphocytes # 2.6 K/mm3 (0.7-4.5); Lymphocytes % 29.7 % (10-50); Mean Corpuscular HGB Conc 31.7 g/dL (31.8-35.4); Mean Corpuscular Hemoglobin 27.5 pg (27.0-31.2); Mean Corpuscular Volume 86.7 fl (81-99); Mean Platelet Volume 8.4 fl (7.4-10.4); Monocytes # 0.4 K/mm3 (0.1-1.0); Monocytes % 4.3 % (1.7-9.3); Neutrophils # 5.5 K/mm3 (1.8-7.8); Neutrophils % 63.6 % (37.0-80.0); Platelet Count 294 K/mm3 (142-424); Red Blood Count 4.57 M/mm3 (4.20-5.40); Red Cell Distribution Width 14.8 % (11.5-17.5); White Blood Count 8.7 K/mm3 (4.8-10.8)
[2020-10-09 17:54] LABS: Anion Gap 11.3 mEq/L (5-15); Blood Urea Nitrogen 27 mg/dl (7-17); Calcium 8.9 mg/dl (8.4-10.2); Carbon Dioxide 23 mmol/L (22.0-30.0); Chloride 113 mmol/L (98-107); Estimated Glomerular Filt Rate 34 ml/min (>60); GFR (African American) 41 ML/MIN (>60); Glucose 151 mg/dl (74-100); Potassium 4.3 mmoL/L (3.5-5.1); Sodium 143 mmol/L (136-145)
== END ==
PROVIDERS: PCP Nurse Practitioner Family; Referring Provider Ophthalmology; Visit Provider Nurse Practitioner Family
DX: Z01.818 Encounter for other preprocedural examination (principal); Z11.52 Encounter for screening for COVID-19
CPT/HCPCS: 36415; 80048; 85025; U0003

== ENCOUNTER → 2020-11-19 14:13 | Outpatient (CLI) | payer MEDICARE, MEDICAID, SELFPAY ==
[2020-11-19 14:36] LABS: Basophils % 0.3 % (0.1-2.0); Eosinophils # 0.1 K/mm3 (0.0-0.4); Eosinophils % 0.7 % (0.1-12.0); Hematocrit 40.8 % (37.0-47.0); Hemoglobin 12.8 g/dL (12.2-16.2); Lymphocytes # 3.3 K/mm3 (0.7-4.5); Lymphocytes % 23.7 % (10-50); Mean Corpuscular HGB Conc 31.3 g/dL (31.8-35.4); Mean Corpuscular Hemoglobin 27.3 pg (27.0-31.2); Mean Corpuscular Volume 87.1 fl (81-99); Mean Platelet Volume 7.5 fl (7.4-10.4); Monocytes # 0.6 K/mm3 (0.1-1.0); Monocytes % 4.2 % (1.7-9.3); Neutrophils # 9.8 K/mm3 (1.8-7.8); Platelet Count 357 K/mm3 (142-424); Red Blood Count 4.68 M/mm3 (4.20-5.40); Red Cell Distribution Width 15.7 % (11.5-17.5); White Blood Count 13.8 K/mm3 (4.8-10.8)
[2020-11-19 15:06] LABS: Chloride 114 mmol/L (98-107); Potassium 5.4 mmoL/L (3.5-5.1); Sodium 145 mmol/L (136-145)
[2020-11-19 15:09] LABS: Alanine Aminotransferase 19 U/L (12-78); Albumin Level 3.9 g/dl (3.5-5.0); Albumin/Globulin Ratio 1.5 (1.1-1.8); Alkaline Phosphatase 157 U/L (38-126); Anion Gap 13.4 mEq/L (5-15); Aspartate Amino Transferase 20 U/L (14-36); Bilirubin,Total 0.4 mg/dl (0.2-1.3); Blood Urea Nitrogen 37 mg/dl (7-17); Carbon Dioxide 23 mmol/L (22.0-30.0); Estimated Glomerular Filt Rate 37 ml/min (>60); GFR (African American) 44 ML/MIN (>60); Globulin 2.6 g/dL (1.3-3.2); Total Protein,Serum 6.5 g/dl (6.3-8.2)
[2020-11-19 15:10] LABS: Calcium 9.3 mg/dl (8.4-10.2); Glucose 66 mg/dl (74-100)
[2020-11-19 15:21] LABS: Coronavirus 19 IgG Antibody Negative (Negative); Coronavirus 19 IgM Antibody Negative (Negative)
== END ==
PROVIDERS: Visit Provider Surgery
DX: K80.20 Calculus of gallbladder without cholecystitis without obstruction (principal); E11.3599 Type 2 diabetes mellitus with proliferative diabetic retinopathy without macular edema, unspecified eye; Z01.812 Encounter for preprocedural laboratory examination; Z11.52 Encounter for screening for COVID-19; Z79.4 Long term (current) use of insulin
CPT/HCPCS: 36415; 80053; 85025; 86328

== ENCOUNTER 2020-11-20 07:43 | Day surgery (SDC) | payer MEDICARE, MEDICAID, SELFPAY ==
[2020-11-20] VITALS (11 sets, daily range): BP systolic 129–194; BP diastolic 59–78; PULSE 78–90; RESP 16–18; TEMP 36.2–36.7; O2SAT 92–96; BMI 37.8
[2020-11-20 10:36] LABS: HCG Qualitative, Serum Negative (Negative)
[2020-11-20 10:44] LABS: Urine Pregnancy, HCG Qual. Negative (Negative)
--- NOTE | 2020-11-20 11:22 | P.PN_ITS ---
[facility] Anesthesia Checklist - Patient Identification Patient Identification: Arm Band - Structural Data Admitted From: Home Planned Operative Procedure/s: Lap cholecystectomy Consent for Planned Operative Procedure(s) Verified: Yes Verified Documents: Surgical Consent, History and Physical - NPO Status Verified Time NPO: 00:00 - Additional verifications Fingerstick Blood Glucose: 234 Anesthesia Reactions: Yes (nausea) Hx Blood Transfusions: No Blood Transfusion Reaction: No - Airway Assessment C-Spine Mobility Assessed: Yes TMJ Mobility Assessed: Yes Dentition: Edentulous - Neurological Assessment Level of Consciousness: Awake, Alert - Anesthesia Plan Anesthesia Risk discussed: Yes Anesthesia Plan: Verified ASA Class: III Anesthesia Type: General [facility] History Medical History: Reports:: Anxiety, Congestive Heart Failure, Coronary Artery Disease, Depression, Diabetes Mellitus Type 2, Gastroesophageal Reflux Disease(GERD), Hyperlipidemia, Hypertension, Migraine, Myocardial Infarction, Renal Disease Denies:: Cancer, Diabetes Mellitus Type 1, Internal Pacemaker, MRSA, Seizures *Have you ever received a pneumonia vaccine?: Yes *Have you received a flu vaccine this season?: Yes Other Medical History: Reports: Anemia, Arthritis. Denies: Blood Transfusion Reaction Anesthesia experience/problems:: None Laterality Cases: Left: Arthroscopy Hip, Right: Arthroscopy Knee, Carpal Tunnel Release, Bilateral: Tonsillectomy Other Surgeries: Yes: Cardiac Catheterization, Colonoscopy, Coronary Stent, C- section, Dilation and Curettage (2005), Other. 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 toe on rt foot, TMA left foot) Fractures: Yes (HIP FRACTURE) - *Social History Last grade of school completed: High school graduate Smoking Status: Current every day smoker Tobacco Type: cigarettes # Packs/Day (cigarettes): 1 Alcohol Intake: never Alcohol Intake Frequency:: other Substance Use Type: denies use *Occupational Status:: disabled Housing: house Household Members: spouse *Travel in the last 8 weeks: None - Psychiatric History Pschychiatric History:: Reports:: Anxiety, Depression Family Hx:: Cancer, Diabetes, Heart Attack
--- NOTE | 2020-11-20 12:05 | HMH.OPNOTE ---
Date of procedure: 11/20/20 Pre-op Diagnosis:: Gallbladder disease Post-op Diagnosis:: Same Procedure performed:: Laparoscopic cholecystectomy Surgeon:: Saroj Valenzuela MD DIRECTOR VALIDATION:: Other Anesthesia: GETA Estimated blood loss (mL): 30 Clinical Note:: Patient presents for cholecystectomy. She is a 50-year-old female who states that she was born and raised in [facility] but now resides in [facility]. She has numerous medical comorbidities including poorly controlled diabetes with complications of retinopathy and significant diabetic foot infections status post below-knee amputation left, obstructive sleep apnea, angina, palpitations, chronic renal failure, hypertension, coronary disease with previous coronary stenting, ongoing tobacco use. She has a relatively longstanding history of abdominal pains and had previously undergone gallbladder work-up and had seen a surgeon in [place] at which time her ejection fraction on her gallbladder was 35%. Surgery was deferred at that time. Recently she has had symptoms of acute epigastric right flank and right upper quadrant pain. She was seen in the emergency department on 09/02/2020 after calling EMS. She underwent a CT scan without any contrast which revealed fluid-filled stomach and pericardial effusion but otherwise unremarkable. As an outpatient she underwent gallbladder ultrasound on 09/04/2020 which revealed no gallstones. She had a HIDA scan performed on 09/21/2020 which revealed an ejection fraction of 17% with reproduction of symptoms. I had initially seen her in the office on 09/28/2020. I did feel that it was likely gallbladder etiology causing a portion of her symptoms. At that time she had skin infections on her abdomen as sores . I had her undergo cardiology assessment for risk stratification and she is deemed an acceptable risk to proceed with cholecystectomy. She does state that she has had some episodes of additional attacks . She was scheduled for cholecystectomy. The skin infections on her abdomen had shown some improvement but not complete healing. Given her ongoing symptomatology plan was made to proceed with cholecystectomy. Operative findings:: She has somewhat distended gallbladder. Operative note:: Patient was taken to the operating room. She was positioned in a supine position. General anesthesia was induced via endotracheal tube. Abdomen was prepped and draped in the standard surgical fashion. Given the ulcerated skin infection inferior to her umbilicus this was covered with a Tegaderm. Subumbilical skin incision was made and while performing abdominal wall lift Veress needle was inserted. CO2 pneumoperitoneum was achieved to 15 mmHg. 11 mm optical trocar was inserted at the umbilicus. Abdominal surveillance was carried out. She had some omental adhesions to the anterior lateral wall and the right abdomen near the pericolic gutter. She was positioned in reverse Trendelenburg left side down. A couple 5 mm trochars were inserted in the right upper abdomen and 10 mm trocar was inserted in the epigastrium. Please note that some of the omental adhesions were taken down to allow for trocar placement in the right lateral 5 mm site. Liver was elevated and gallbladder was identified. It was grasped retracted superiorly and anteriorly over the dome of the liver. Infundibulum of the gallbladder was retracted anterior laterally. Blunt dissection was carried out the neck of the gallbladder bluntly incising the visceral peritoneum. Cystic duct and cystic artery were clearly identified and isolated. Cystic duct was multiply clipped and sharply divided. Cystic artery was carefully coagulated with TOREY ultrasonic robotic jose and divided. Gallbladder was dissected free from the liver in a retrograde fashion using TOREY ultrasonic harmonic jose. Gallbladder was placed within an Endo Catch retrieval device removed from the peritoneal cavity via the umbilical trocar site
[2020-11-20 12:21] LABS: POC Glucose,Bedside 212 (70-110)
[2020-11-21 17:04] LABS: POC Glucose,Bedside 232 (70-110)
[2020-11-21 17:04] LABS: POC Glucose,Bedside 271 (70-110)
--- NOTE | 2020-11-22 08:49 | HMH.ANESII ---
[facility] Anesthesia Record Part II Discharge Time: 12:51 Destination: Surgical Day Care (OP Surgery) PACU nurse assessment reviewed?: Yes Patient Condition:: Good Anesthesia Complications:: None Swallowing reflex intact?: Yes Cyanosis?: No Blood Pressure: 142/68 Pulse Rate: 78 Temperature: 98.1 F Mental Status: Alert & Oriented Pain level:: 0 Nausea and/or vomitting:: None Intake, IV Amount: 1,000
[2020-11-22 08:50] VITALS: BP 142/68; PULSE 78; TEMP 36.7
--- NOTE | 2020-11-22 12:24 | P.PN_ITS ---
[facility] Anesthesia Record Part I Intake, IV Amount: 1,000 Estimated blood loss (mL): 5 Urine output (mL): 0 Blood Products used (#): none Blood Pressure: 129/59 SaO2: 94 Pulse Rate: 79 Respiratory Rate: 14 Temperature: 98.6 F Patient is:: Awake, Drowsy Stable to PACU at:: 10:50
[2020-11-22 12:25] VITALS: BP 129/59; PULSE 79; RESP 14; TEMP 37; O2SAT 94
--- NOTE | 2020-11-22 12:58 | P.PN_ITS ---
[facility] Anesthesia Record Part I Intake, IV Amount: 1,000 Estimated blood loss (mL): 5 Urine output (mL): 0 Blood Products used (#): none Blood Pressure: 129/59 SaO2: 94 Pulse Rate: 79 Respiratory Rate: 14 Temperature: 98.6 F Patient is:: Awake, Drowsy Stable to PACU at:: 11:13
[2020-11-22 13:00] VITALS: BP 129/59; PULSE 79; RESP 14; TEMP 37; O2SAT 94
== END 2020-11-20 14:20 | disposition home or self-care (01) ==
LOC: OR 07:45
PROVIDERS: PCP Nurse Practitioner Family; Visit Provider Surgery
PROC: 0FT44ZZ Resection of Gallbladder, Percutaneous Endoscopic Approach (ICD-10-PCS; CPT 47562; principal; 2020-11-20 09:00)
DX: K80.20 Calculus of gallbladder without cholecystitis without obstruction (principal); E11.3599 Type 2 diabetes mellitus with proliferative diabetic retinopathy without macular edema, unspecified eye; F41.9 Anxiety disorder, unspecified; I11.0 Hypertensive heart disease with heart failure; I50.9 Heart failure, unspecified; K21.9 Gastro-esophageal reflux disease without esophagitis; G43.909 Migraine, unspecified, not intractable, without status migrainosus; I25.2 Old myocardial infarction; M19.90 Unspecified osteoarthritis, unspecified site; D64.9 Anemia, unspecified; Z72.0 Tobacco use; Z87.39 Personal history of other diseases of the musculoskeletal system and connective tissue
CPT/HCPCS: 47562; 81025; 82962; 84703; 88304; 96374; J2405

== ENCOUNTER 2020-11-29 07:51 | Outpatient (RCR) | payer MEDICARE, MEDICAID, SELFPAY | END 2020-12-01 11:00 | disposition home or self-care (01) | LOC: PT 07:51 | PROVIDERS: PCP Nurse Practitioner Family; Visit Provider Nurse Practitioner Family | DX: R26.89 Other abnormalities of gait and mobility (principal) | CPT/HCPCS: 97542 ==

== ENCOUNTER → 2020-12-05 17:55 | Outpatient (CLI) | payer MEDICARE, MEDICAID, SELFPAY | PROVIDERS: Visit Provider Nurse Practitioner Family | DX: N30.91 Cystitis, unspecified with hematuria (principal) | CPT/HCPCS: 87086 ==

== ENCOUNTER 2020-12-26 17:52 | Emergency (ER) | payer MEDICARE, MEDICAID, SELFPAY ==
[2020-12-26 17:53] VITALS: BP 130/70; PULSE 87; RESP 16; TEMP 36.8; O2SAT 98; BMI 35.6
--- NOTE | 2020-12-26 17:53 | HMH.EDGENADL ---
ED Disposition Clinical Impression: UTI (urinary tract infection) Qualifiers: Urinary tract infection type: acute cystitis Hematuria presence: without hematuria Qualified Code(s): N30.00 - Acute cystitis without hematuria Disposition: Home, Self-Care Condition on Discharge: Good Instructions: Nausea and Vomiting-Adult Referrals: Francisco Greer APRN [Primary Care Provider] - 3 days Time of Disposition: 20:11 - Critical Care Critical Care Time: No Attestation: On , the high probability of a clinically significant, sudden or life threatening deterioration of the following system(s) required my full and direct attention, intervention and personal management. The time I documented below is in addition to time spent performing reported procedures but includes the following listed in this critical care notation. Medical Decision Making - Medical Records Medical records reviewed: Yes: I reviewed the patient's medical records. - Mauri Inquiry Pt receiving controlled substance: No Vital Signs: 12/26/20 17:53 12/26/20 19:00 Temperature 98.3 F Temperature Source Oral Pulse Rate 85 Pulse Rate [Radial] 87 Respiratory Rate 16 20 Blood Pressure 100/53 L Blood Pressure [Right Arm] 130/70 Blood Pressure Mean 69 Blood Pressure Mean [Right Arm] 90 Blood Pressure Position [Right Arm] Sitting 02 Sat by Pulse Oximetry 98 97 Oxygen Delivery Method Room Air - Lab Data Lab results reviewed: Yes: I reviewed the patient's lab results. Lab Results 12/26/20 18:40: WBC 11.5 H, RBC 5.03, Hgb 13.8, Hct 42.6, MCV 84.7, MCH 27.4, MCHC 32.4, RDW 15.3, Plt Count 322, MPV 7.8, Neut % (Auto) 78.0, Lymph % (Auto) 17.6, [place] % (Auto) 3.0, Eos % (Auto) 1.0, Baso % (Auto) 0.4, Neut # (Auto) 8.9 H, Lymph # (Auto) 2.0, [place] # (Auto) 0.3, Eos # (Auto) 0.1, Baso # (Auto) 0.0 12/26/20 18:40: Sodium 140, Potassium 5.2 H, Chloride 110 H, Carbon Dioxide 22, Anion Gap 13.2, BUN 45 H, Creatinine 1.60 H, Estimated Creat Clear 64, Estimated GFR 34 L, Est GFR ( Amer) 41 L, Glucose 134 H, Calcium 9.0, Total Bilirubin 0.5, AST 24, ALT 29, Alkaline Phosphatase 194 H, Total Protein 7.2, Albumin 4.1, Globulin 3.1, Albumin/Globulin Ratio 1.3, Lipase 70 12/26/20 19:22: Urine Color Yellow, Urine Appearance Clear, Urine pH 5.5, Ur Specific [place] >= 1.030, Urine Protein 3+, Urine Glucose (UA) Negative, Urine Ketones Negative, Urine Blood 2+, Urine Nitrate Negative, Urine Bilirubin Negative, Urine Urobilinogen 0.2, Ur Leukocyte Esterase 1+ A, Urine RBC 3-5, Urine WBC 5-10, Urine Bacteria 3+, Urine Mucus 1+ Result diagrams: 12/26/20 18:40 12/26/20 18:40 Orders (Tests/Meds): ED MEDICATIONS Generic Name Dose Route Start Last Admin Trade Name Freq PRN Reason Stop Dose Admin Lactated Ringer's 500 mls @ 999 mls/hr 12/26/20 18:00 12/26/20 18:18 Lactated Ringer's 1000 Ml Bag IV 12/26/20 18:30 500 mls/hr .Q31M JASEN Administration Discontinued Medications Generic Name Dose Route Start Last Admin Trade Name Freq PRN Reason Stop Dose Admin Ondansetron HCl 4 mg 12/26/20 17:54 12/26/20 18:18 Ondansetron 4mg/2ml Vial IV 12/26/20 17:55 4 mg ONCE ONE Administration ORDERS Category Date Time Status Urine Culture Stat Micro 12/26/20 19:22 Received Medical Decision Narrative: 50yo F presents the emergency department secondary to nausea and vomiting. Patient is in no acute distress on initial evaluation. Her vital signs are unremarkable. Her exam is benign. Labs are ordered at this time. Patient will be treated with IV fluids and Zofran. Patient is had no episodes of nausea or vomiting Since her arrival in the emergency department. Her laboratory studies are largely unremarkable that she may have a slight urinary tract infection. Patient be treated with antibiotics before leaving the emergency department and discharged with a prescription. General Adult HPI - General Stated complaint: nausea Time Seen by Pro
[2020-12-26 18:52] LABS: Basophils % 0.4 % (0.1-2.0); Eosinophils # 0.1 K/mm3 (0.0-0.4); Hematocrit 42.6 % (37.0-47.0); Hemoglobin 13.8 g/dL (12.2-16.2); Lymphocytes % 17.6 % (10-50); Mean Corpuscular HGB Conc 32.4 g/dL (31.8-35.4); Mean Corpuscular Hemoglobin 27.4 pg (27.0-31.2); Mean Corpuscular Volume 84.7 fl (81-99); Mean Platelet Volume 7.8 fl (7.4-10.4); Monocytes # 0.3 K/mm3 (0.1-1.0); Neutrophils # 8.9 K/mm3 (1.8-7.8); Platelet Count 322 K/mm3 (142-424); Red Blood Count 5.03 M/mm3 (4.20-5.40); Red Cell Distribution Width 15.3 % (11.5-17.5); White Blood Count 11.5 K/mm3 (4.8-10.8)
[2020-12-26 18:57] LABS: Chloride 110 mmol/L (98-107); Potassium 5.2 mmoL/L (3.5-5.1); Sodium 140 mmol/L (136-145)
[2020-12-26 18:59] LABS: Blood Urea Nitrogen 45 mg/dl (7-17); Creatinine Clearance Estimated 64 mL/min (50-200); Estimated Glomerular Filt Rate 34 ml/min (>60); GFR (African American) 41 ML/MIN (>60)
[2020-12-26 19:00] VITALS: BP 100/53; PULSE 85; RESP 20; O2SAT 97
[2020-12-26 19:00] LABS: Alanine Aminotransferase 29 U/L (12-78); Albumin Level 4.1 g/dl (3.5-5.0); Albumin/Globulin Ratio 1.3 (1.1-1.8); Alkaline Phosphatase 194 U/L (38-126); Anion Gap 13.2 mEq/L (5-15); Aspartate Amino Transferase 24 U/L (14-36); Bilirubin,Total 0.5 mg/dl (0.2-1.3); Carbon Dioxide 22 mmol/L (22.0-30.0); Globulin 3.1 g/dL (1.3-3.2); Glucose 134 mg/dl (74-100); Lipase 70 U/L (23-300); Total Protein,Serum 7.2 g/dl (6.3-8.2)
[2020-12-26 19:31] VITALS: BP 125/75; PULSE 82; O2SAT 97
--- NOTE | 2020-12-26 19:33 | PC.NURSE ---
Pt continued to say she could not void, pt was i/o cath for specimen by Tanvi Hernandez RN
[2020-12-26 19:49] LABS: Microscopic, Urine URINE MICROSCOPIC (MICROSCOPIC)
[2020-12-26 19:51] LABS: Appearance,Urine CLEAR (Clear); Blood, Urine 2+ (Negative); Color,Urine YELLOW (Yellow); Glucose,Urine (UA) Negative (Negative); Ketones,Urine Negative (Negative); Leukocyte Esterase,Urine 1+ (Negative); Nitrate,Urine Negative (Negative); PH,Urine 5.5 (5.0-8.5); Protein,Urine 3+ (Negative); Specific Gravity, Urine >= 1.030 (1.005-1.030); Urobilinogen,Urine 0.2 EU/dl (0.2)
[2020-12-26 19:59] LABS: Bilirubin,Urine Negative (Negative)
[2020-12-26 20:00] VITALS: BP 122/69; PULSE 82; O2SAT 98
[2020-12-26 20:03] LABS: Bacteria,Urine 3+ /lpf; Mucus,Urine 1+ /lpf
[2020-12-26 20:29] VITALS: BP 122/72; PULSE 68; RESP 16; TEMP 36.8; O2SAT 97
--- NOTE | 2020-12-26 21:32 | PC.NURSE ---
Per Dr. Nguyen, ok'ed phenergan take home pack and to come into office tomorrow, 10a or 1p as a walk in. Pt educated on medication and follow up
== END 2020-12-26 20:32 | disposition home or self-care (01) ==
PROVIDERS: Emergency Provider Family Medicine; PCP Nurse Practitioner Family
DX: N30.00 Acute cystitis without hematuria (principal); E11.9 Type 2 diabetes mellitus without complications; Z89.432 Acquired absence of left foot; F41.8 Other specified anxiety disorders; K21.9 Gastro-esophageal reflux disease without esophagitis; E78.5 Hyperlipidemia, unspecified; I10 Essential (primary) hypertension; I25.2 Old myocardial infarction; F17.210 Nicotine dependence, cigarettes, uncomplicated; Z88.2 Allergy status to sulfonamides
CPT/HCPCS: 80053; 81001; 83690; 85025; 87086; 87088; 87186; 96365; 96375; 99283; J2405

== ENCOUNTER 2020-12-28 14:14 | Emergency (ER) | payer MEDICARE, MEDICAID, SELFPAY ==
[2020-12-28 14:15] VITALS: BP 107/78; PULSE 79; RESP 18; TEMP 36.6; O2SAT 97; BMI 37.1
[2020-12-28 14:30] VITALS: BP 120/72; PULSE 89; O2SAT 100
--- NOTE | 2020-12-28 14:43 | HMH.EDGENADL ---
ED Disposition Clinical Impression: Nausea and vomiting Qualifiers: Vomiting type: unspecified Vomiting Intractability: non-intractable Qualified Code(s): R11.2 - Nausea with vomiting, unspecified BPPV (benign paroxysmal positional vertigo) Qualifiers: Laterality: unspecified laterality Qualified Code(s): H81.10 - Benign paroxysmal vertigo, unspecified ear Disposition: Home, Self-Care Condition on Discharge: Good Instructions: DI for Nausea -- Adult Additional Instructions: Take Zofran/Phenergan as needed for nausea. Take meclizine as needed for dizziness. Follow-up with PCP on Thursday. Return to the emergency department for headache, dizziness, intractable nausea and vomiting. Referrals: Francisco Greer APRN [Primary Care Provider] - 01/01/21 Time of Disposition: 18:51 - Critical Care Critical Care Time: No Attestation: On 12/28/20, the high probability of a clinically significant, sudden or life threatening deterioration of the following system(s) required my full and direct attention, intervention and personal management. The time I documented below is in addition to time spent performing reported procedures but includes the following listed in this critical care notation. Medical Decision Making - Medical Records Medical records reviewed: Yes: I reviewed the patient's medical records. - Mauri Inquiry Pt receiving controlled substance: No Vital Signs: 12/28/20 14:15 12/28/20 14:30 Temperature 97.8 F Temperature Source Oral Pulse Rate 89 Pulse Rate [Left Radial] 79 Respiratory Rate 18 Blood Pressure 120/72 Blood Pressure [Right Arm] 107/78 L Blood Pressure Mean 87 Blood Pressure Mean [Right Arm] 87 Blood Pressure Source [Right Arm] Automatic Cuff Blood Pressure Position [Right Arm] Sitting 02 Sat by Pulse Oximetry 97 100 Oxygen Delivery Method Room Air - Lab Data Lab results reviewed: Yes: I reviewed the patient's lab results. Lab Results 12/28/20 14:55: Urine Color Yellow, Urine Appearance Clear, Urine pH 5.5, Ur Specific [place] >= 1.030, Urine Protein 3+, Urine Glucose (UA) Negative, Urine Ketones Negative, Urine Blood 1+, Urine Nitrate Negative, Urine Bilirubin 1+ A, Urine Urobilinogen 0.2, Ur Leukocyte Esterase Trace, Urine RBC None, Urine WBC 10-20, Ur Squamous Epith Cells 3-5, Urine Bacteria None 12/28/20 15:00: WBC 11.1 H, RBC 5.57 H, Hgb 14.9, Hct 48.4 H, MCV 86.8, MCH 26.8 L, MCHC 30.9 L, RDW 14.8, Plt Count 382, MPV 8.0, Neut % (Auto) 67.4, Lymph % (Auto) 23.4, [place] % (Auto) 7.1, Eos % (Auto) 1.5, Baso % (Auto) 0.6, Neut # (Auto) 7.5, Lymph # (Auto) 2.6, [place] # (Auto) 0.8, Eos # (Auto) 0.2, Baso # (Auto) 0.1 12/28/20 15:00: Sodium 142, Potassium 4.9, Chloride 108 H, Carbon Dioxide 24, Anion Gap 14.9, BUN 45 H, Creatinine 2.00 H D, Estimated Creat Clear 55, Estimated GFR 26 L, Est GFR ( Amer) 32 L D, Glucose 163 H, Calcium 9.6, Total Bilirubin 0.8, AST 30, ALT 29, Alkaline Phosphatase 198 H, Total Protein 7.9, Albumin 4.5, Globulin 3.4 H, Albumin/Globulin Ratio 1.3, Lipase 58 Result diagrams: 12/28/20 15:00 12/28/20 15:00 Orders (Tests/Meds): ED MEDICATIONS Discontinued Medications Generic Name Dose Route Start Last Admin Trade Name Freq PRN Reason Stop Dose Admin Lactated Ringer's 1,000 mls @ 999 mls/hr 12/28/20 15:00 12/28/20 15:10 Lactated Ringer's 1000 Ml Bag IV 12/28/20 16:00 999 mls/hr .Q1H1M JASEN Administration Iopamidol 75 ml 12/28/20 15:13 12/28/20 15:14 Iopamidol-370 (76%);100ml Bottle IV 12/28/20 15:14 75 ml ONCE ONE Administration Meclizine HCl 25 mg 12/28/20 16:39 12/28/20 16:52 Meclizine 25mg Tablet PO 12/28/20 16:40 25 mg ONCE ONE Administration Ondansetron HCl 4 mg 12/28/20 14:56 12/28/20 15:11 Ondansetron 4mg/2ml Vial IV 12/28/20 14:57 4 mg ONCE ONE Administration ORDERS Category Date Time Status Urine Culture Stat Micro 12/28/20 14:55 Received - CT Data CT Scan: Abdomen, Pelvis
--- NOTE | 2020-12-28 14:55 | CT_ITS ---
PROCEDURE: CT ABDOMEN PELVIS W CON CLINICAL INDICATION: n/v, bilious COMPARISON: CT CT ABDOMEN PELVIS WO CON from 09/02/2020 TECHNIQUE: IV Contrast: 75ML OPTIRAY 350 Oral Contrast none given Axial images obtained with sagittal and coronal reformats. All CT scans at the facility use one or more dose reduction, viz: automated exposure control, ma/kV adjustment per patient size (including targeted exams where dose is matched to indication, i.e. head), or iterative reconstruction technique. FINDINGS: Lower thorax: The lower lung butler are clear and there is no pleural fluid. Prominent coronary artery calcification as noted previously. ABDOMEN: Liver: No masses or biliary dilatation. Gallbladder: Post cholecystectomy, there is a metallic clip in the gallbladder fossa. Pancreas: No masses or peripancreatic fluid collections. Spleen: unremarkable Adrenals: The left adrenal gland is normal, there is a stable calcified peripheral nodule right adrenal gland along with somewhat hypo intense nodule body of the renal gland possibly representing a myelolipoma. The findings are stable and unchanged from the previous CT abdomen and pelvis 09/02/2020. . Kidneys/ureters: The kidneys are normal in size and show symmetrical function both appearing normal. ABDOMEN & PELVIS: Stomach bowel: Nondistended. No obvious mass or thickening. The small bowel appears normal. There is moderate scattered stool and gas seen throughout the colon. Peritoneum: No abnormal fluid collections. No obvious inflammatory changes. No free air. Lymph nodes: No enlarged lymph nodes apparent. Vasculature: There is minimal true sclerotic calcification of the infrarenal aorta and aortic bifurcation but there is no aneurysm. Bones: No acute fracture PELVIS: Reproductive: The uterus is normal in size and somewhat anteverted with an IUD in place. There is a hypodense right ovarian cyst measuring 4.1 x 4.4 by 3.4 cm. Bladder: The urinary bladder is totally decompressed, there is no free fluid in the pelvis. Appendix: Not definitely identified but there are no pericecal inflammatory changes. IMPRESSION: No acute abdominal or pelvic pathology identified Dictated by: Dr. Joe Hassan MD 12/28/2020 15:36 Dr. Joe Hassan MD in [place] 12/28/2020 15:36
[2020-12-28 15:04] LABS: Microscopic, Urine URINE MICROSCOPIC (MICROSCOPIC)
[2020-12-28 15:13] LABS: Basophils # 0.1 K/mm3 (0-0.2); Basophils % 0.6 % (0.1-2.0); Eosinophils # 0.2 K/mm3 (0.0-0.4); Eosinophils % 1.5 % (0.1-12.0); Hematocrit 48.4 % (37.0-47.0); Hemoglobin 14.9 g/dL (12.2-16.2); Lymphocytes # 2.6 K/mm3 (0.7-4.5); Lymphocytes % 23.4 % (10-50); Mean Corpuscular HGB Conc 30.9 g/dL (31.8-35.4); Mean Corpuscular Hemoglobin 26.8 pg (27.0-31.2); Mean Corpuscular Volume 86.8 fl (81-99); Monocytes # 0.8 K/mm3 (0.1-1.0); Monocytes % 7.1 % (1.7-9.3); Neutrophils # 7.5 K/mm3 (1.8-7.8); Neutrophils % 67.4 % (37.0-80.0); Platelet Count 382 K/mm3 (142-424); Red Blood Count 5.57 M/mm3 (4.20-5.40); Red Cell Distribution Width 14.8 % (11.5-17.5); White Blood Count 11.1 K/mm3 (4.8-10.8)
[2020-12-28 15:18] LABS: Alanine Aminotransferase 29 U/L (12-78); Albumin Level 4.5 g/dl (3.5-5.0); Albumin/Globulin Ratio 1.3 (1.1-1.8); Alkaline Phosphatase 198 U/L (38-126); Anion Gap 14.9 mEq/L (5-15); Aspartate Amino Transferase 30 U/L (14-36); Bilirubin,Total 0.8 mg/dl (0.2-1.3); Blood Urea Nitrogen 45 mg/dl (7-17); Calcium 9.6 mg/dl (8.4-10.2); Carbon Dioxide 24 mmol/L (22.0-30.0); Chloride 108 mmol/L (98-107); Creatinine Clearance Estimated 55 mL/min (50-200); Estimated Glomerular Filt Rate 26 ml/min (>60); GFR (African American) 32 ML/MIN (>60); Globulin 3.4 g/dL (1.3-3.2); Glucose 163 mg/dl (74-100); Lipase 58 U/L (23-300); Potassium 4.9 mmoL/L (3.5-5.1); Sodium 142 mmol/L (136-145); Total Protein,Serum 7.9 g/dl (6.3-8.2)
[2020-12-28 15:25] LABS: Appearance,Urine CLEAR (Clear); Blood, Urine 1+ (Negative); Color,Urine YELLOW (Yellow); Glucose,Urine (UA) Negative (Negative); Ketones,Urine Negative (Negative); Leukocyte Esterase,Urine TRACE (Negative); Nitrate,Urine Negative (Negative); PH,Urine 5.5 (5.0-8.5); Protein,Urine 3+ (Negative); Specific Gravity, Urine >= 1.030 (1.005-1.030); Urobilinogen,Urine 0.2 EU/dl (0.2)
[2020-12-28 15:29] LABS: Bilirubin,Urine 1+ (Negative)
[2020-12-28 18:54] VITALS: BP 120/72; PULSE 89; RESP 18; TEMP 36.6; O2SAT 100
== END 2020-12-28 18:57 | disposition home or self-care (01) ==
PROVIDERS: Emergency Provider Family Medicine; PCP Nurse Practitioner Family
DX: R11.2 Nausea with vomiting, unspecified (principal); H81.10 Benign paroxysmal vertigo, unspecified ear; N39.0 Urinary tract infection, site not specified; K21.9 Gastro-esophageal reflux disease without esophagitis; F41.9 Anxiety disorder, unspecified; E11.65 Type 2 diabetes mellitus with hyperglycemia; I25.2 Old myocardial infarction; F17.210 Nicotine dependence, cigarettes, uncomplicated; Z79.899 Other long term (current) drug therapy
CPT/HCPCS: 74177; 80053; 81001; 83690; 85025; 87086; 96365; 96375; 99282; J2405; Q9967

== ENCOUNTER → 2021-01-08 18:08 | Outpatient (CLI) | payer MEDICARE, MEDICAID, SELFPAY ==
[2021-01-08 18:28] LABS: Basophils % 0.4 % (0.1-2.0); Eosinophils # 0.1 K/mm3 (0.0-0.4); Eosinophils % 0.6 % (0.1-12.0); Hematocrit 44.9 % (37.0-47.0); Hemoglobin 14.6 g/dL (12.2-16.2); Lymphocytes # 2.5 K/mm3 (0.7-4.5); Lymphocytes % 25.6 % (10-50); Mean Corpuscular HGB Conc 32.4 g/dL (31.8-35.4); Mean Corpuscular Hemoglobin 27.6 pg (27.0-31.2); Mean Platelet Volume 8.8 fl (7.4-10.4); Monocytes # 0.3 K/mm3 (0.1-1.0); Monocytes % 3.4 % (1.7-9.3); Neutrophils # 6.8 K/mm3 (1.8-7.8); Neutrophils % 70.1 % (37.0-80.0); Platelet Count 315 K/mm3 (142-424); Red Blood Count 5.28 M/mm3 (4.20-5.40); Red Cell Distribution Width 15.1 % (11.5-17.5); White Blood Count 9.7 K/mm3 (4.8-10.8)
[2021-01-08 18:37] LABS: Chloride 104 mmol/L (98-107); Potassium 4.9 mmoL/L (3.5-5.1); Sodium 136 mmol/L (136-145)
[2021-01-08 18:39] LABS: Alanine Aminotransferase 31 U/L (12-78); Anion Gap 15.9 mEq/L (5-15); Aspartate Amino Transferase 29 U/L (14-36); Blood Urea Nitrogen 26 mg/dl (7-17); Carbon Dioxide 21 mmol/L (22.0-30.0); Estimated Glomerular Filt Rate 34 ml/min (>60); GFR (African American) 41 ML/MIN (>60)
[2021-01-08 18:40] LABS: Albumin Level 3.8 g/dl (3.5-5.0); Albumin/Globulin Ratio 1.4 (1.1-1.8); Alkaline Phosphatase 219 U/L (38-126); Bilirubin,Total 0.5 mg/dl (0.2-1.3); Calcium 8.8 mg/dl (8.4-10.2); Chol/HDL Ratio 6.7 (1-3.5); Cholesterol 221 mg/dl (140-200); Globulin 2.7 g/dL (1.3-3.2); HDL Cholesterol 33 mg/dl (40-60); Total Protein,Serum 6.5 g/dl (6.3-8.2); Triglycerides 372 mg/dl (30-150); VLDL Cholesterol 74 mg/dL (0-40)
[2021-01-08 18:51] LABS: Direct LDL Cholesterol 114.26 mg/dL (100-129)
[2021-01-08 18:57] LABS: T4 (Thyroxine) 9.2 ug/dl (5.53-11.0)
[2021-01-08 19:00] LABS: 25-OH Vitamin D, Total < 12.8 ng/mL (30-100)
[2021-01-08 19:11] LABS: Thyroid Stimulating Hormone 3.18 uIU/mL (0.465-4.68)
[2021-01-08 19:29] LABS: Creatinine,Urine Random 113 mg/dL (Not Estab.)
[2021-01-08 20:08] LABS: Glucose 489 mg/dl (74-100)
[2021-01-08 22:06] LABS: Microalbumin > 1140.000 mg/L (0-16.7); Microalbumin/Creatinine Ratio 1008.8
[2021-01-11 11:33] LABS: C-Peptide 3.4 ng/mL (1.1-4.4)
[2021-01-29 12:57] LABS: Hemoglobin A1C 9.5 % (4.0-6.0)
== END ==
PROVIDERS: Visit Provider Nurse Practitioner Family
DX: E11.3599 Type 2 diabetes mellitus with proliferative diabetic retinopathy without macular edema, unspecified eye (principal); E66.9 Obesity, unspecified; E78.5 Hyperlipidemia, unspecified; I10 Essential (primary) hypertension; I25.10 Atherosclerotic heart disease of native coronary artery without angina pectoris; E11.628 Type 2 diabetes mellitus with other skin complications; L08.9 Local infection of the skin and subcutaneous tissue, unspecified; N39.0 Urinary tract infection, site not specified; E55.9 Vitamin D deficiency, unspecified; Z68.36 Body mass index [BMI] 36.0-36.9, adult
CPT/HCPCS: 80053; 80061; 82043; 82306; 82570; 83036; 84436; 84443; 84681; 85025

== ENCOUNTER → 2021-05-07 17:43 | Outpatient (CLI) | payer MEDICARE, MEDICAID, SELFPAY ==
[2021-05-07 17:48] LABS: Adenovirus,PCR Not Detected (NotDetected); Bordetella Pertussis Not Detected (NotDetected); Chlamydophila Pneumoniae, PCR Not Detected (NotDetected); Coronavirus 19, PCR Not Detected (NotDetected); Coronavirus 229E Not Detected (NotDetected); Coronavirus NL63 Not Detected (NotDetected); Coronavirus OC43 Not Detected (NotDetected); Coronovirus HKU1,PCR Not Detected (NotDetected); Human Metapneumovirus Not Detected (NotDetected); Influenza A, PCR Not Detected (NotDetected); Influenza AH1, 2009 Not Detected (NotDetected); Influenza AH1, PCR Not Detected (NotDetected); Influenza AH3,PCR Not Detected (NotDetected); Influenza B, PCR Not Detected (NotDetected); Mycoplasma Pneumoniae, PCR Not Detected (NotDetected); Parainfluenza 1, PCR Not Detected (NotDetected); Parainfluenza 2, PCR Not Detected (NotDetected); Parainfluenza 3, PCR Not Detected (NotDetected); Parainfluenza 4, PCR Not Detected (NotDetected); Respiratory Syncytial Virus Not Detected (NotDetected)
[2021-05-07 20:34] LABS: Rhinovirus/Enterovirus Detected (NotDetected)
== END ==
PROVIDERS: Visit Provider Nurse Practitioner Family
DX: Z20.822 Contact with and (suspected) exposure to COVID-19 (principal); R69 Illness, unspecified; R05.9 Cough, unspecified; R51.9 Headache, unspecified; R11.0 Nausea; B34.1 Enterovirus infection, unspecified
CPT/HCPCS: 87581; 87632; 87798; C9803; U0003; U0005

== ENCOUNTER 2021-05-16 09:51 | Inpatient (IN) | payer MEDICARE, MEDICAID, SELFPAY ==
[2021-05-16] VITALS (14 sets, daily range): BP systolic 115–178; BP diastolic 42–92; PULSE 73–88; RESP 16–21; TEMP 36.5–36.8; O2SAT 93–100; BMI 36.3; BMI 34.0
--- NOTE | 2021-05-16 10:00 | HMH.EDGENADL ---
ED Disposition Clinical Impression: Perineal abscess Pancreatitis Qualifiers: Chronicity: acute Pancreatitis type: unspecified pancreatitis type Acute pancreatitis complication: no infection or necrosis Qualified Code(s): K85.90 - Acute pancreatitis without necrosis or infection, unspecified DKA (diabetic ketoacidosis) Qualifiers: Diabetes mellitus type: other specified (including MILY) Diabetes mellitus complication detail: without coma Qualified Code(s): E13.10 - Other specified diabetes mellitus with ketoacidosis without coma Disposition: Admitted As Inpatient Condition on Discharge: Serious Referrals: Provider,Referral, MD [Referring] - - Critical Care Critical Care Time: Yes Attestation: On 05/16/21, the high probability of a clinically significant, sudden or life threatening deterioration of the following system(s) required my full and direct attention, intervention and personal management. The time I documented below is in addition to time spent performing reported procedures but includes the following listed in this critical care notation. Total Critical Care Time: 35 Vital system(s) involved:: Metabolic Failure My critical care processes included: Assessment & monitoring of V/S, Initial and Re-exams, Data Review/Interpretation, Coordinating Care, Medication Orders and management, Documentation Medical Decision Making - Mauri Inquiry Pt receiving controlled substance: Yes Mauri was queried for this patient: Yes Risks and benefits of using a controlled substance: were not discussed with pt by me Vital Signs: 05/16/21 09:52 Temperature 98.3 F Temperature Source Oral Pulse Rate [Radial] 88 Respiratory Rate 16 Blood Pressure [Right Arm] 147/83 H Blood Pressure Mean [Right Arm] 104 Blood Pressure Position [Right Arm] Sitting 02 Sat by Pulse Oximetry 98 Oxygen Delivery Method Room Air - Lab Data Lab Results 05/16/21 09:55: WBC 13.0 H, RBC 5.02, Hgb 14.2, Hct 46.4, MCV 92.5, MCH 28.3, MCHC 30.6 L, RDW 14.6, Plt Count 352, MPV 9.3, Neut % (Auto) 86.1 H, Lymph % (Auto) 10.2, [place] % (Auto) 2.6, Eos % (Auto) 0.6, Baso % (Auto) 0.4, Neut # (Auto) 11.2 H, Lymph # (Auto) 1.3, [place] # (Auto) 0.3, Eos # (Auto) 0.1, Baso # (Auto) 0.1, Total Counted 100, Neutrophils % (Manual) 82 H, Lymphocytes % (Manual) 16, Monocytes % (Manual) 2, Platelet Estimate Normal, Hypochromasia 2+ 05/16/21 09:55: Sodium 130 L, Potassium 4.1, Chloride 99, Carbon Dioxide 22, Anion Gap 13.1, BUN 20 H, Creatinine 1.50 H, Estimated Creat Clear 67, Estimated GFR 37 L, Est GFR ( Amer) 44 L, Glucose 774 H*, Calcium 8.5, Total Bilirubin 0.5, AST 22, ALT 21, Alkaline Phosphatase 199 H, Total Protein 6.0 L, Albumin 3.4 L, Globulin 2.6, Albumin/Globulin Ratio 1.3, Amylase 298 H 05/16/21 09:55: Lipase 2719 H 05/16/21 09:55: Troponin I < 0.01 05/16/21 09:55: Serum HCG, Qual Negative 05/16/21 09:55: Phosphorus 3.7, Magnesium 1.5 L 05/16/21 10:26: VBG pH 7.23 L, VBG pCO2 43.4, VBG pO2 38.9, VBG HCO3 17.7 L, VBG Total CO2 19.1 L, VBG O2 Saturation 70.2 H, VBG Base Excess -9.8 L 05/16/21 10:35: Urine Color Yellow, Urine Appearance Clear, Urine pH 6.0, Ur Specific [place] 1.010, Urine Protein 2+, Urine Glucose (UA) 3+, Urine Ketones Negative, Urine Blood 1+, Urine Nitrate Negative, Urine Bilirubin Negative, Urine Urobilinogen 0.2, Ur Leukocyte Esterase Negative, Urine RBC 3-5, Urine WBC Occasional, Ur Squamous Epith Cells Occasional, Urine Bacteria None 05/16/21 10:45: Acetone Level Detected 05/16/21 12:00: SARS-CoV-2 (PCR) Not detected, Influenza A Untype (PCR) Not detected, Influenza Type B (PCR) Not detected Result diagrams: 05/16/21 09:55 05/16/21 09:55 Orders (Tests/Meds): ED MEDICATIONS Generic Name Dose Route Start Last Admin Trade Name Freq PRN Reason Stop Dose Admin Insulin Human Regular 100 unit 101 mls @ 9.712 mls/hr 05/16/21 11:30 05/16/21 12:22 / Sodium Chloride IV 06/15/21 11:29 9.712 mls/hr .[id number] JASEN Administration P
[2021-05-16 10:08] LABS: Chloride 99 mmol/L (98-107); Potassium 4.1 mmoL/L (3.5-5.1); Sodium 130 mmol/L (136-145)
[2021-05-16 10:11] LABS: Alanine Aminotransferase 21 U/L (12-78); Alkaline Phosphatase 199 U/L (38-126); Amylase 298 U/L (30-110); Anion Gap 13.1 mEq/L (5-15); Aspartate Amino Transferase 22 U/L (14-36); Basophils # 0.1 K/mm3 (0-0.2); Basophils % 0.4 % (0.1-2.0); Bilirubin,Total 0.5 mg/dl (0.2-1.3); Blood Urea Nitrogen 20 mg/dl (7-17); Calcium 8.5 mg/dl (8.4-10.2); Carbon Dioxide 22 mmol/L (22.0-30.0); Creatinine Clearance Estimated 67 mL/min (50-200); Eosinophils # 0.1 K/mm3 (0.0-0.4); Eosinophils % 0.6 % (0.1-12.0); Estimated Glomerular Filt Rate 37 ml/min (>60); GFR (African American) 44 ML/MIN (>60); Hematocrit 46.4 % (37.0-47.0); Hemoglobin 14.2 g/dL (12.2-16.2); Lymphocytes # 1.3 K/mm3 (0.7-4.5); Lymphocytes % 10.2 % (10-50); Mean Corpuscular HGB Conc 30.6 g/dL (31.8-35.4); Mean Corpuscular Hemoglobin 28.3 pg (27.0-31.2); Mean Corpuscular Volume 92.5 fl (81-99); Mean Platelet Volume 9.3 fl (7.4-10.4); Monocytes # 0.3 K/mm3 (0.1-1.0); Monocytes % 2.6 % (1.7-9.3); Neutrophils # 11.2 K/mm3 (1.8-7.8); Neutrophils % 86.1 % (37.0-80.0); Platelet Count 352 K/mm3 (142-424); Red Blood Count 5.02 M/mm3 (4.20-5.40); Red Cell Distribution Width 14.6 % (11.5-17.5)
[2021-05-16 10:12] LABS: Albumin Level 3.4 g/dl (3.5-5.0); Albumin/Globulin Ratio 1.3 (1.1-1.8); Globulin 2.6 g/dL (1.3-3.2)
[2021-05-16 10:16] LABS: MANUAL DIFFERENTIAL MANUAL DIFFERENTIAL (MANUAL DIFF)
[2021-05-16 10:23] LABS: Lipase 2719 U/L (23-300)
[2021-05-16 10:25] LABS: HCG Qualitative, Serum Negative (Negative)
[2021-05-16 10:37] LABS: Hypochromasia 2+; Lymphocytes % 16 % (10-50); Monocytes % 2 % (2-9); Neutrophils % 82 % (42-76); Platelet Estimate Normal; Total Cells Counted 100
[2021-05-16 10:40] LABS: Troponin I < 0.01 ng/ml (0.00-0.034)
[2021-05-16 10:50] LABS: Microscopic, Urine URINE MICROSCOPIC (MICROSCOPIC)
[2021-05-16 10:56] LABS: Appearance,Urine CLEAR (Clear); Bilirubin,Urine Negative (Negative); Blood, Urine 1+ (Negative); Color,Urine YELLOW (Yellow); Glucose,Urine (UA) 3+ (Negative); Ketones,Urine Negative (Negative); Leukocyte Esterase,Urine Negative (Negative); Nitrate,Urine Negative (Negative); Protein,Urine 2+ (Negative); Urobilinogen,Urine 0.2 EU/dl (0.2)
--- NOTE | 2021-05-16 11:00 | ECG_ITS ---
APPROVED REPORT Exam: Resting ECG HR:79 bpm ECG Measurements Heart Rate 79 AXES IA 140 P 38 QRSd 78 QRS 20 QT 396 T 24 QTc 454 Conclusion Normal sinus rhythm Normal ECG Electronically signed by : Wally Teran MD 05/18/2021 09:00:29
--- NOTE | 2021-05-16 11:00 | PC.NURSE ---
pt resting quietly updated on plan of care
[2021-05-16 11:02] LABS: Acetone, Serum (Rapid) Detected (None Detect)
[2021-05-16 11:07] LABS: VBG Base Excess -9.8 mmol/L (-2.4-2.3); VBG HCO3 17.7 mmol/L (23-30); VBG Oxygen Saturation 70.2 % (50-70); VBG PCO2 43.4 mmol/L (35-51); VBG PH 7.23 mmol/L (7.31-7.41); VBG PO2 38.9 mmol/L (28-40); VBG Total CO2 19.1 mmol/L (23-27)
[2021-05-16 11:17] LABS: Squamous Epithelial Cell,Urine Occasional #/hpf (0-5); WBC,Urine Occasional #/hpf (0-3)
[2021-05-16 11:21] LABS: Glucose 774 mg/dl (74-100)
[2021-05-16 11:29] LABS: Phosphorous 3.7 mg/dl (2.5-4.5)
[2021-05-16 11:30] LABS: Magnesium 1.5 mg/dl (1.6-2.3)
--- NOTE | 2021-05-16 11:39 | CT_ITS ---
PROCEDURE: CT ABDOMEN PELVIS WO CON CLINICAL INDICATION: pancreatitis COMPARISON: US US TRANSVAGINAL from 10/02/[address] ABDOMEN PELVIS W CON from 12/28/2020 TECHNIQUE: Axial images obtained with sagittal and coronal reformats. All CT scans at the facility use one or more dose reduction, viz: automated exposure control, ma/kV adjustment per patient size (including targeted exams where dose is matched to indication, i.e. head), or iterative reconstruction technique. FINDINGS: LOWER THORAX: Coronary artery calcifications are noted. ABDOMEN & PELVIS: There has been a prior cholecystectomy. No obvious biliary dilatation. No focal liver lesion. The spleen has an unremarkable appearance. 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 There is mild haziness of the peripancreatic fat consistent with acute pancreatitis. No obvious peripancreatic fluid collections. Cannot evaluate for pancreatic necrosis without IV contrast. No renal or ureteral calculi. No hydronephrosis. No intestinal obstruction or free air. No evidence of appendicitis or diverticulitis. There is mild thickening of the urinary bladder wall nonspecific and may be due to nondistention or cystitis. There is an IUD in satisfactory position. There is a right adnexal mass at 4.3 by 3.6 cm. This was present on the previous exam and deemed to be cystic on a previous ultrasound. The mass is slightly more dense on today's study and could be related to debris or hemorrhage within the lesion. Follow-up nonemergent ultrasound may provide further evaluation. No cul-de-sac fluid. Artifact is present from gamma nail and intramedullary melvi within the left proximal femur. No acute bony anomalies. IMPRESSION: Haziness of the peripancreatic fat consistent with acute pancreatitis. No obvious fluid collections. 4.3 x 3.6 cm mass in the right adnexal region possibly due to a hemorrhagic cyst and may be confirmed with nonemergent ultrasound. There is mild urinary bladder wall thickening which may be seen with incomplete distension, chronic outflow obstruction, or cystitis. Dictated by: Car Barnhart MD 05/16/2021 12:36 Car Barnhart MD in [facility] 05/16/2021 12:36
--- NOTE | 2021-05-16 11:45 | PC.NURSE ---
pt up to bathroom with assist of one. pt unsteady on feet
--- NOTE | 2021-05-16 12:00 | PC.NURSE ---
pt c/o pain nausea. pt updated on plan of care
[2021-05-16 12:10] LABS: Coronavirus 19, PCR Not Detected (NotDetected); Influenza A, PCR Not Detected (NotDetected); Influenza B, PCR Not Detected (NotDetected)
[2021-05-16 13:32] LABS: POC Glucose,Bedside 507 (70-110)
--- NOTE | 2021-05-16 13:41 | PC.NURSE ---
1320 bed assignment requested, room 216 SD, currently occupied. will have room ready. all staff notified
[2021-05-16 13:55] LABS: Glucose,Random 518 mg/dL (74-100)
[2021-05-16 14:07] LABS: Troponin I < 0.01 ng/ml (0.00-0.034)
[2021-05-16 14:37] LABS: POC Glucose,Bedside 385 (70-110)
--- NOTE | 2021-05-16 15:30 | PC.NURSE ---
report called to floor
[2021-05-16 15:37] LABS: POC Glucose,Bedside 265 (70-110)
--- NOTE | 2021-05-16 15:45 | PC.NURSE ---
2nd iv started rt ac #20 angio.
--- NOTE | 2021-05-16 16:00 | PC.NURSE ---
pt c/o of increasing pain.
--- NOTE | 2021-05-16 16:10 | PC.NURSE ---
went to pt's room to give pain meds, pt was not in room, was transferred to floor
[2021-05-16 17:23] LABS: POC Glucose,Bedside 226 (70-110)
[2021-05-16 17:23] LABS: POC Glucose,Bedside 152 (70-110)
[2021-05-16 17:55] LABS: Chloride 108 mmol/L (98-107); Potassium 3.8 mmoL/L (3.5-5.1); Sodium 137 mmol/L (136-145)
[2021-05-16 17:58] LABS: Blood Urea Nitrogen 20 mg/dl (7-17); Creatinine Clearance Estimated 77 mL/min (50-200); Estimated Glomerular Filt Rate 43 ml/min (>60); GFR (African American) 52 ML/MIN (>60)
[2021-05-16 17:59] LABS: Anion Gap 15.8 mEq/L (5-15); Calcium 8.3 mg/dl (8.4-10.2); Carbon Dioxide 17 mmol/L (22.0-30.0); Glucose 268 mg/dl (74-100)
[2021-05-16 18:09] LABS: POC Glucose,Bedside 127 (70-110)
[2021-05-16 18:48] LABS: POC Glucose,Bedside 122 (70-110)
--- NOTE | 2021-05-16 19:03 | HMH.HP ---
*Admission Date: 05/16/21 *Chief complaint: pancreatitis and dka *History of present illness: Patient is a 51-year-old white female, patient of our practice, who presents through the emergency room earlier today with a 2-day history of progressive nausea vomiting and malaise. She has a longstanding history of diabetes, diagnosed during . She has had multiple complications and has been in DKA on one occasion. Patient reported the presence of a boil in her vulvar region. We will ask [facility] to evaluate this further. Work-up in the ER included CT of the abdomen which showed some haziness in the region of the pancreas suggesting pancreatitis. She also has a 4.3 x 3.6 cm right adnexal mass. Labs were done in the emergency room. Creatinine was 1.3 and acetone was detected along with elevated blood glucose. Patient is admitted for further evaluation and treatment Her gap was 15.8, lipase pending at [facility] History Medical History: Reports:: Anxiety, Congestive Heart Failure, Coronary Artery Disease, Depression, Diabetes Mellitus Type 2, Gastroesophageal Reflux Disease(GERD), Hyperlipidemia, Hypertension, Migraine, Myocardial Infarction, Renal Disease Denies:: Cancer, Diabetes Mellitus Type 1, Internal Pacemaker, MRSA, Seizures *Have you ever received a pneumonia vaccine?: No *Have you received a flu vaccine this season?: No Other Medical History: Reports: Anemia, Arthritis. Denies: Blood Transfusion Reaction Laterality Cases: Left: Arthroscopy Hip, Right: Arthroscopy Knee, Carpal Tunnel Release, Bilateral: Tonsillectomy Other Surgeries: Yes: Cardiac Catheterization, Cholecystectomy, Colonoscopy, Coronary Stent, , Dilation and Curettage (2005), Other. 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 toe on rt foot, TMA left foot) Fractures: Yes (HIP FRACTURE) - *Social History Smoking Status: Current every day smoker Tobacco Type: cigarettes # Packs/Day (cigarettes): 2 Alcohol Intake: never Alcohol Intake Frequency:: other Substance Use Type: denies use *Occupational Status:: unemployed Housing: apartment Household Members: spouse *Travel in the last 8 weeks: None - Psychiatric History Pschychiatric History:: Reports:: Anxiety, Depression Family Hx:: Cancer, Diabetes, Heart Attack Review of Systems - Constitutional Reports anorexia, Reports body ache(s), Reports weakness - Eyes Denies change in vision - ENT Denies abnormal hearing - *Cardiovascular Denies chest pain - *Respiratory Denies shortness of breath - *Gastrointestinal Reports abdominal pain, Reports belching, Reports bloating, Reports feeling full early, Reports heartburn, Reports nausea, Denies coffee ground vomit, Denies vomiting blood - *Genitourinary Reports other - *Musculoskeletal Reports muscle weakness - Integumentary/Breasts Reports boil - *Neurologic Denies abnormal hearing, Denies behavioral changes - Psychiatric Denies behavioral changes - Endocrine Reports increased urination - Hematologic/Lymphatic Denies easy bleeding, Denies easy bruising - Allergic/Immunologic Denies hives Meds Home Medications Medication Instructions Recorded Confirmed Type furosemide 40 mg tablet 20 mg PO DAILYP PRN #30 tab 09/26/19 05/16/21 History metoclopramide HCl 5 mg tablet 5 mg PO ACHS #90 tab 12/23/19 05/16/21 Rx atorvastatin 40 mg tablet 40 mg PO HS #90 tab 03/23/20 05/16/21 Rx Blood Sugar Diagnostic [Accu-Chek See Rx Instructions .ROUTE 09/02/20 05/16/21 History Amy Plus test strp] .MEDSUPPLY aspirin 81 mg tablet,delayed 81 mg PO DAILY #90 tab 10/05/20 05/16/21 Rx release lisinopril 2.5 mg tablet 2.5 mg PO DAILY #90 tab 10/05/20 05/16/21 Rx Pantoprazole Sodium See Rx Instructions .ROUTE .COMPLEX 12/26/20 05/16/21 History Meclizine HCl [Antivert 25mg 25 mg PO TID PRN #15 tab 12/28/20 05/16/21 Rx tablet] insulin glargine 100 unit/mL (3 65 unit SQ HS #20 ml 01/04/21 05/16/21 Rx mL) subcutaneous pen semaglutide 0.5 mg SQ WEEKLY
[2021-05-16 19:10] LABS: Chloride 108 mmol/L (98-107); Potassium 3.6 mmoL/L (3.5-5.1); Sodium 139 mmol/L (136-145)
[2021-05-16 19:13] LABS: Anion Gap 11.6 mEq/L (5-15); Blood Urea Nitrogen 20 mg/dl (7-17); Calcium 8.3 mg/dl (8.4-10.2); Carbon Dioxide 23 mmol/L (22.0-30.0); Creatinine Clearance Estimated 72 mL/min (50-200); Estimated Glomerular Filt Rate 40 ml/min (>60); GFR (African American) 48 ML/MIN (>60); Glucose 137 mg/dl (74-100)
[2021-05-16 20:12] LABS: POC Glucose,Bedside 130 (70-110)
[2021-05-16 21:25] LABS: Lipase 5516 U/L (23-300)
--- NOTE | 2021-05-16 21:46 | PC.NURSE ---
notified MD Rivas maintenance mechanic telephone that pt's lipase is [id number], no new orders at this time, will continue to monitor
[2021-05-16 22:01] LABS: POC Glucose,Bedside 145 (70-110)
--- NOTE | 2021-05-16 22:38 | PC.NURSE ---
pt's fsbs at 1999 was 130, per ordered protocol no changes needed at this time, insulin drip at 2 units/hr and D5NS at 75mL/hr pt's fsbs at 0 was 145, per ordered protocol no changes needed at this time, insulin drip at 2 units/hr and D5NS at 75mL/hr
[2021-05-16 23:59] LABS: Chloride 109 mmol/L (98-107); Potassium 3.6 mmoL/L (3.5-5.1); Sodium 139 mmol/L (136-145)
[2021-05-17] VITALS: BP 148/80; BP 151/81; PULSE 80; PULSE 81; RESP 11; RESP 16; TEMP 36.9; TEMP 37.1; O2SAT 93; O2SAT 94
[2021-05-17 00:02] LABS: Anion Gap 11.6 mEq/L (5-15); Blood Urea Nitrogen 22 mg/dl (7-17); Carbon Dioxide 22 mmol/L (22.0-30.0); Creatinine Clearance Estimated 77 mL/min (50-200); Estimated Glomerular Filt Rate 43 ml/min (>60); GFR (African American) 52 ML/MIN (>60)
[2021-05-17 00:03] LABS: Calcium 8.1 mg/dl (8.4-10.2); Glucose 152 mg/dl (74-100)
--- NOTE | 2021-05-17 00:18 | PC.NURSE ---
pt's 2400 fsbs 132, per ordered protocol need to decrease insulin drip by 50% (2/.5=1) and continue D5NS, will do so and continue to monitor
[2021-05-17 02:00] VITALS: BP 149/78; PULSE 84; RESP 17; O2SAT 92
--- NOTE | 2021-05-17 02:29 | PC.NURSE ---
pt's fsbs 175, per ordered insulin drip protocol no changes at this time, will recheck another fsbs at 0400 and continue to monitor
[2021-05-17 04:00] VITALS: BP 177/83; PULSE 96; RESP 17; TEMP 36.9; O2SAT 98
[2021-05-17 04:06] LABS: Anion Gap 7.9 mEq/L (5-15); Blood Urea Nitrogen 21 mg/dl (7-17); Calcium 8.1 mg/dl (8.4-10.2); Carbon Dioxide 21 mmol/L (22.0-30.0); Chloride 113 mmol/L (98-107); Creatinine Clearance Estimated 77 mL/min (50-200); Estimated Glomerular Filt Rate 43 ml/min (>60); GFR (African American) 52 ML/MIN (>60); Glucose 200 mg/dl (74-100); Potassium 3.9 mmoL/L (3.5-5.1); Sodium 138 mmol/L (136-145)
[2021-05-17 04:08] LABS: Acetone, Serum (Rapid) None Detected (None Detect)
--- NOTE | 2021-05-17 04:26 | PC.NURSE ---
pt's fsbs 181 at 0400, per ordered insulin drip protocol no changes needed to insulin drip or IVF at this time (drip at 1unit/hr and D5NS at 75mL/hr); acetone lab drawn and no acetone noted; pt c/o 04/12 pain eased with 1mg dilaudid, pt A&Ox4, VSS, no nausea at this time, no acute events overnight; will continue to monitor
[2021-05-17 05:51] VITALS: BP 162/81; PULSE 91; RESP 18; TEMP 36.9; O2SAT 96
--- NOTE | 2021-05-17 06:00 | XR_ITS ---
PROCEDURE INFORMATION: Exam: XR Chest Exam date and time: 05/17/2021 6:00 AM Age: 51 years old Clinical indication: Other: Dka TECHNIQUE: Imaging protocol: XR of the chest. Views: 1 view. COMPARISON: CR XR RIBS RT MIN 3V W CXR1V 08/21/2020 3:52 PM FINDINGS: Lungs: Extensive overlying artifact limits evaluation of the left hemithorax. The right lung is clear. Pleural spaces: No obvious pleural effusion. No pneumothorax. Heart/Mediastinum: Unremarkable. No cardiomegaly. Vasculature: The aorta demonstrates mild atherosclerotic calcification. Bones/joints: Unremarkable. IMPRESSION: Extensive overlying artifact limits evaluation of the left hemithorax. The right lung is clear. Recommend repeat study.
[2021-05-17 06:10] LABS: POC Glucose,Bedside 175 (70-110)
[2021-05-17 06:10] LABS: POC Glucose,Bedside 181 (70-110)
[2021-05-17 06:10] LABS: POC Glucose,Bedside 214 (70-110)
[2021-05-17 06:10] LABS: POC Glucose,Bedside 132 (70-110)
--- NOTE | 2021-05-17 06:16 | PC.NURSE ---
fsbs 214 at 0600, per ordered insulin drip protocol continue current infusion rates (1unit/hr insulin drip and D5NS @75mL/hr), will do so and continue to monitor
[2021-05-17 06:27] LABS: Basophils % 0.3 % (0.1-2.0); Eosinophils # 0.1 K/mm3 (0.0-0.4); Eosinophils % 0.6 % (0.1-12.0); Hematocrit 40.5 % (37.0-47.0); Hemoglobin 12.8 g/dL (12.2-16.2); Lymphocytes # 1.9 K/mm3 (0.7-4.5); Lymphocytes % 16.6 % (10-50); Mean Corpuscular HGB Conc 31.6 g/dL (31.8-35.4); Mean Corpuscular Hemoglobin 28.2 pg (27.0-31.2); Mean Platelet Volume 8.8 fl (7.4-10.4); Monocytes # 0.4 K/mm3 (0.1-1.0); Monocytes % 3.1 % (1.7-9.3); Neutrophils # 9.2 K/mm3 (1.8-7.8); Neutrophils % 79.4 % (37.0-80.0); Platelet Count 257 K/mm3 (142-424); Red Blood Count 4.55 M/mm3 (4.20-5.40); Red Cell Distribution Width 14.9 % (11.5-17.5); White Blood Count 11.6 K/mm3 (4.8-10.8)
[2021-05-17 06:32] LABS: Chloride 110 mmol/L (98-107); Potassium 3.7 mmoL/L (3.5-5.1); Sodium 138 mmol/L (136-145)
[2021-05-17 06:35] LABS: Anion Gap 11.7 mEq/L (5-15); Blood Urea Nitrogen 21 mg/dl (7-17); Calcium 7.8 mg/dl (8.4-10.2); Carbon Dioxide 20 mmol/L (22.0-30.0); Creatinine Clearance Estimated 77 mL/min (50-200); Estimated Glomerular Filt Rate 43 ml/min (>60); GFR (African American) 52 ML/MIN (>60); Glucose 227 mg/dl (74-100)
--- NOTE | 2021-05-17 07:27 | P.CONPHA_ITS ---
[facility] Pharmacy VTE Monitoring - Patient Demographics Admission date: 05/16/21 Report Date: 05/17/21 Time: 07:27 Allergies/Adverse Reactions: Patient Allergies Sulfa (Sulfonamide Antibiotics) [SULFA (SULFONAMIDE ANTIBIOTICS)] Allergy (Unknown, Verified 05/07/21 14:23) Height: 1.68 m Weight: 95.51 kg Patient Problems: Current Active Problems Pancreatitis (Acute) DKA (diabetic ketoacidosis) (Acute) Perineal abscess (Acute) Amputation of left lower extremity below knee (Acute) Diabetes mellitus (Chronic) HTN (hypertension) (Chronic) Overweight (Chronic) Abdominal pain (Acute) - VTE Risk Labs: VTE Related Lab Results Hgb 12.8 g/dL (12.2-16.2) 05/17/21 05:57 Hct 40.5 % (37.0-47.0) 05/17/21 05:57 Plt Count 257 K/mm3 (142-424) D 05/17/21 05:57 BUN 21 mg/dl (7-17) H 05/17/21 05:57 Creatinine 1.30 mg/dl (0.52-1.04) H 05/17/21 05:57 Estimated Creat Clear 77 mL/min (50-200) 05/17/21 05:57 VTE Score: 4 VTE Risk Level: Low Risk - Prophylaxis VTE Prophylaxis Ordered?: Yes Types of VTE Prophylaxis: TEDS Knee High Location of Applied Device: Bilateral Lower Extremeties
[2021-05-17 07:46] LABS: Lipase 4305 U/L (23-300)
[2021-05-17 08:00] VITALS: BP 172/92; PULSE 78; RESP 20; TEMP 37.1; O2SAT 95
--- NOTE | 2021-05-17 08:22 | HMH.PHACONS ---
- Pharmacy Consult Date: 05/17/21 Time: 08:23 Referring provider: DR. LEAL Reason for Consult:: VANCOMYCIN CONSULT Allergies and ADEs:: Allergies Allergy/AdvReac Type Severity Reaction Status Date / Time Sulfa (Sulfonamide Allergy Unknown Verified 05/07/21 14:23 Antibiotics) [SULFA (SULFONAMIDE ANTIBIOTICS)] Home Medications:: Home Medications Medication Instructions Recorded Confirmed Type furosemide 40 mg tablet 20 mg PO DAILYP PRN #30 tab 09/26/19 05/16/21 History metoclopramide HCl 5 mg tablet 5 mg PO ACHS #90 tab 12/23/19 05/16/21 Rx atorvastatin 40 mg tablet 40 mg PO HS #90 tab 03/23/20 05/16/21 Rx Blood Sugar Diagnostic [Accu-Chek See Rx Instructions .ROUTE 09/02/20 05/16/21 History Amy Plus test strp] .MEDSUPPLY aspirin 81 mg tablet,delayed 81 mg PO DAILY #90 tab 10/05/20 05/16/21 Rx release lisinopril 2.5 mg tablet 2.5 mg PO DAILY #90 tab 10/05/20 05/16/21 Rx Pantoprazole Sodium See Rx Instructions .ROUTE .COMPLEX 12/26/20 05/16/21 History Meclizine HCl [Antivert 25mg 25 mg PO TID PRN #15 tab 12/28/20 05/16/21 Rx tablet] insulin glargine 100 unit/mL (3 65 unit SQ HS #20 ml 01/04/21 05/16/21 Rx mL) subcutaneous pen semaglutide 0.5 mg SQ WEEKLY #1.5 ml 01/09/21 05/16/21 Rx ondansetron HCl 4 mg tablet 4 mg PO Q8H PRN #20 tab 03/14/21 05/16/21 Rx levocetirizine 5 mg tablet See Rx Instructions .ROUTE 03/26/21 05/16/21 Rx .COMPLEX #30 tab benzonatate 100 mg capsule 100 mg PO TID PRN #90 cap 05/07/21 05/16/21 Rx carvedilol 12.5 mg tablet 12.5 mg PO BID #180 tab 05/13/21 05/16/21 Rx isosorbide mononitrate 30 mg 30 mg PO DAILY #90 tab 05/13/21 05/16/21 Rx tablet,extended release 24 hr tizanidine 4 mg tablet 4 mg PO HS PRN #30 tab 05/13/21 05/16/21 Rx venlafaxine 75 mg capsule,extended See Rx Instructions .ROUTE 05/13/21 05/16/21 Rx release 24 hr .COMPLEX #90 cap Carbamide Peroxide [Murine Ear Wax 5 drp OTIC DAILY 05/16/21 05/16/21 History Removal System] Cholecalciferol (Vitamin D3) 1,250 mcg PO WEEKLY 05/16/21 05/16/21 History [Dialyvite Vitamin D3 Max] Gabapentin 600 mg PO TID 05/16/21 05/16/21 History Insulin NPH Hum/Reg Insulin Hm 10 unit SQ BID 05/16/21 05/16/21 History [Novolin 70-30 FlexPen U-100] Pen Needle, Diabetic [Techlite Pen See Rx Instructions .ROUTE 05/16/21 05/16/21 History Needle] .MEDSUPPLY Rimegepant Sulfate [Nurtec ODT] 75 mg PO ONCE 05/16/21 05/16/21 History predniSONE [Deltasone 20mg 20 mg PO BID 05/16/21 05/16/21 History tablet] Height: 1.68 m Weight: 95.51 kg Laboratory Results:: Laboratory Results - last 24 hr 05/16/21 09:55: WBC 13.0 H, RBC 5.02, Hgb 14.2, Hct 46.4, MCV 92.5, MCH 28.3, MCHC 30.6 L, RDW 14.6, Plt Count 352, MPV 9.3, Neut % (Auto) 86.1 H, Lymph % (Auto) 10.2, [place] % (Auto) 2.6, Eos % (Auto) 0.6, Baso % (Auto) 0.4, Neut # (Auto) 11.2 H, Lymph # (Auto) 1.3, [place] # (Auto) 0.3, Eos # (Auto) 0.1, Baso # (Auto) 0.1, Total Counted 100, Neutrophils % (Manual) 82 H, Lymphocytes % (Manual) 16, Monocytes % (Manual) 2, Platelet Estimate Normal, Hypochromasia 2+ 05/16/21 09:55: Sodium 130 L, Potassium 4.1, Chloride 99, Carbon Dioxide 22, Anion Gap 13.1, BUN 20 H, Creatinine 1.50 H, Estimated Creat Clear 67, Estimated GFR 37 L, Est GFR ( Amer) 44 L, Glucose 774 H*, Calcium 8.5, Total Bilirubin 0.5, AST 22, ALT 21, Alkaline Phosphatase 199 H, Total Protein 6.0 L, Albumin 3.4 L, Globulin 2.6, Albumin/Globulin Ratio 1.3, Amylase 298 H 05/16/21 09:55: Lipase 2719 H 05/16/21 09:55: Troponin I < 0.01 05/16/21 09:55: Serum HCG, Qual Negative 05/16/21 09:55: Phosphorus 3.7, Magnesium 1.5 L 05/16/21 10:26: VBG pH 7.23 L, VBG pCO2 43.4, VBG pO2 38.9, VBG HCO3 17.7 L, VBG Total CO2 19.1 L, VBG O2 Saturation 70.2 H, VBG Base Excess -9.8 L 05/16/21 10:35: Urine Color Yellow, Urine Appearance Clear, Urine pH 6.0, Ur Specific [place] 1.010, Urine Protein 2+, Urine Glucose (UA) 3+, Urine Ketones Negative, Urine Blood 1+, Urine Nitrate Negative, U
--- NOTE | 2021-05-17 11:29 | HMH.ACPN2 ---
Internal Medicine - PN: Subj *Date: 05/17/21 *Time: 08:25 Interval history: pt states she is feeling better today, denies n/v Exam Vital signs and Labs for Last 24 Hours: Temp Pulse Resp BP Pulse Ox 98.4 F 91 H 18 162/81 H 96 05/17/21 05:51 05/17/21 05:51 05/17/21 05:51 05/17/21 05:51 05/17/21 05:51 Laboratory Results - last 24 hr 05/16/21 09:55: Phosphorus 3.7, Magnesium 1.5 L 05/16/21 12:00: SARS-CoV-2 (PCR) Not detected, Influenza A Untype (PCR) Not detected, Influenza Type B (PCR) Not detected 05/16/21 13:21: Troponin I < 0.01 05/16/21 13:21: Random Glucose 518 H* 05/16/21 13:24: POC Glucose 507 H* 05/16/21 14:30: POC Glucose 385 H* 05/16/21 15:30: POC Glucose 265 H 05/16/21 16:05: Sodium 137, Potassium 3.8, Chloride 108 H, Carbon Dioxide 17 L, Anion Gap 15.8 H, BUN 20 H, Creatinine 1.30 H, Estimated Creat Clear 77, Estimated GFR 43 L, Est GFR ( Amer) 52 L, Glucose 268 H D, Calcium 8.3 L 05/16/21 16:21: POC Glucose 226 H 05/16/21 17:02: POC Glucose 152 H 05/16/21 18:01: POC Glucose 127 H 05/16/21 18:40: POC Glucose 122 H 05/16/21 18:44: Sodium 139, Potassium 3.6, Chloride 108 H, Carbon Dioxide 23, Anion Gap 11.6, BUN 20 H, Creatinine 1.40 H, Estimated Creat Clear 72, Estimated GFR 40 L, Est GFR ( Amer) 48 L, Glucose 137 H D, Calcium 8.3 L 05/16/21 18:56: Lipase 5516 H 05/16/21 20:05: POC Glucose 130 H 05/16/21 21:53: POC Glucose 145 H 05/16/21 23:40: Sodium 139, Potassium 3.6, Chloride 109 H, Carbon Dioxide 22, Anion Gap 11.6, BUN 22 H, Creatinine 1.30 H, Estimated Creat Clear 77, Estimated GFR 43 L, Est GFR ( Amer) 52 L, Glucose 152 H, Calcium 8.1 L 05/16/21 23:55: POC Glucose 132 H 05/17/21 02:28: POC Glucose 175 H 05/17/21 03:45: Sodium 138, Potassium 3.9, Chloride 113 H, Carbon Dioxide 21 L, Anion Gap 7.9, BUN 21 H, Creatinine 1.30 H, Estimated Creat Clear 77, Estimated GFR 43 L, Est GFR ( Amer) 52 L, Glucose 200 H D, Calcium 8.1 L 05/17/21 03:45: Acetone Level None detected 05/17/21 04:03: POC Glucose 181 H 05/17/21 05:56: POC Glucose 214 H 05/17/21 05:57: Sodium 138, Potassium 3.7, Chloride 110 H, Carbon Dioxide 20 L, Anion Gap 11.7, BUN 21 H, Creatinine 1.30 H, Estimated Creat Clear 77, Estimated GFR 43 L, Est GFR ( Amer) 52 L, Glucose 227 H, Calcium 7.8 L 05/17/21 05:57: WBC 11.6 H, RBC 4.55, Hgb 12.8, Hct 40.5, MCV 89.0, MCH 28.2, MCHC 31.6 L, RDW 14.9, Plt Count 257 D, MPV 8.8, Neut % (Auto) 79.4, Lymph % (Auto) 16.6, [place] % (Auto) 3.1, Eos % (Auto) 0.6, Baso % (Auto) 0.3, Neut # (Auto) 9.2 H, Lymph # (Auto) 1.9, [place] # (Auto) 0.4, Eos # (Auto) 0.1, Baso # (Auto) 0.0 05/17/21 05:57: Lipase 4305 H I & O for Last 24 hours: Intake & Output 05/14/21 05/15/21 05/16/21 05/17/21 11:59 11:59 11:59 11:59 Intake Total 960 / 960 Output Total 300 / 300 Balance 660 / 660 Weight 212 lb 210 lb 9 oz - Constitutional no acute distress, obese - *Routine HEENT Exam Head: Present: normocephalic Eye: Present: PERRL ENT: Present: mucous membranes moist - *Routine Neck Exam Present: supple. Absent: lymphadenopathy - *Routine Respiratory Exam Present: CTA bilaterally - *Routine Cardiovascular Exam Present: RRR - *Routine Abdominal Exam Present: soft, normoactive bowel sounds. Absent: tenderness - *Routine Extremities Exam Present: amputation Comments: left bka - *Routine Skin Exam Present: warm. Absent: rash - *Routine Neurological Exam Present: alert, oriented X3 Assessment and Plan (1) DKA (diabetic ketoacidosis) Status: Acute Qualifiers: Diabetes mellitus type: other specified (including MILY) Diabetes mellitus complication detail: without coma Qualified Code(s): E13.10 - Other specified diabetes mellitus with ketoacidosis without coma Category: Medical Code(s): E11.10 - Type 2 diabetes mellitus with ketoacidosis without coma (2) Pancreatitis Status: Acute Qualifiers: Chronicity: acute Pancreatitis type: u
[2021-05-17 12:02] LABS: POC Glucose,Bedside 340 (70-110)
--- NOTE | 2021-05-17 13:10 | HMH.GYNCON ---
SCREEN CLEANER - CN: HPI - Data of Consult Patient: new to practice Consult date: 05/17/21 Requesting Physician: Donald Rivas MD Primary Care Provider: Francisco Greer APRN - Consult Narrative Reason for consult: other History of present illness: Ms. Burkett is a 51 year old female She was admitted with abdominal pain and high blood sugars. She has a history of severe diabetes and ketoacidosis. She has a left below-knee amputation. She had an abscess on her labia majora that now has drained. She also has a 4 cm right ovarian cyst on CT scan. This is not significantly changed since her previous ultrasound. CC: Donald Rivas MD Review of Systems - Review of Systems Review of systems:: pertinent systems reviewed and negative unless documented below - *Neurologic Reports weakness, Denies abnormal hearing, Denies behavioral changes [facility] History I have reviewed the patient's past medical history: Yes Medical History: Reports:: Anxiety, Congestive Heart Failure, Coronary Artery Disease, Depression, Diabetes Mellitus Type 2, Gastroesophageal Reflux Disease(GERD), Hyperlipidemia, Hypertension, Migraine, Myocardial Infarction, Renal Disease Denies:: Cancer, Diabetes Mellitus Type 1, Internal Pacemaker, MRSA, Seizures *Have you ever received a pneumonia vaccine?: No *Have you received a flu vaccine this season?: No Other Medical History: Reports: Anemia, Arthritis. Denies: Blood Transfusion Reaction Laterality Cases: Left: Arthroscopy Hip, Right: Arthroscopy Knee, Carpal Tunnel Release, Bilateral: Tonsillectomy Other Surgeries: Yes: Cardiac Catheterization, Cholecystectomy, Colonoscopy, Coronary Stent, , Dilation and Curettage (2005), Other. 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 toe on rt foot, TMA left foot) Fractures: Yes (HIP FRACTURE) - *Social History Smoking Status: Current every day smoker Tobacco Type: cigarettes # Packs/Day (cigarettes): 2 Alcohol Intake: never Alcohol Intake Frequency:: other Substance Use Type: denies use *Occupational Status:: unemployed Housing: apartment Household Members: spouse *Travel in the last 8 weeks: None - Psychiatric History Pschychiatric History:: Reports:: Anxiety, Depression Family Hx:: Cancer, Diabetes, Heart Attack Meds Home Medications Medication Instructions Recorded Confirmed Type aspirin 81 mg tablet,delayed 81 mg PO DAILY #90 tab 10/05/20 05/16/21 Rx release lisinopril 2.5 mg tablet 2.5 mg PO DAILY #90 tab 10/05/20 05/16/21 Rx Pantoprazole Sodium 40 mg PO DAILY 12/26/20 05/17/21 History insulin glargine 100 unit/mL (3 65 unit SQ HS #20 ml 01/04/21 05/16/21 Rx mL) subcutaneous pen carvedilol 12.5 mg tablet 12.5 mg PO BID #180 tab 05/13/21 05/16/21 Rx isosorbide mononitrate 30 mg 30 mg PO DAILY #90 tab 05/13/21 05/16/21 Rx tablet,extended release 24 hr Cholecalciferol (Vitamin D3) 1,250 mcg PO WEEKLY 05/16/21 05/16/21 History [Dialyvite Vitamin D3 Max] Gabapentin 600 mg PO TID 05/16/21 05/16/21 History Rimegepant Sulfate [Nurtec ODT] 75 mg PO NEEDED PRN 05/16/21 05/17/21 History Benzonatate [Tessalon [place] 100mg 100 mg PO TIDP PRN 05/17/21 05/17/21 History Cap*] Insulin Lispro [Humalog Kwikpen 14 unit SQ TID 05/17/21 05/17/21 History U-100] Levocetirizine Dihydrochloride 5 mg PO DAILY 05/17/21 05/17/21 History Semaglutide [Ozempic] 0.25 mg SQ WEEKLY 05/17/21 05/17/21 History Tizanidine HCl 4 mg PO HSP PRN 05/17/21 05/17/21 History Venlafaxine HCl [Venlafaxine HCl 75 mg PO DAILY 05/17/21 05/17/21 History ER] Allergies Allergy/AdvReac Type Severity Reaction Status Date / Time Sulfa (Sulfonamide Allergy Unknown Verified 05/07/21 14:23 Antibiotics) [SULFA (SULFONAMIDE ANTIBIOTICS)] SCREEN CLEANER - Exam Vital signs: Temp Pulse Resp BP Pulse Ox 98.7 F 78 20 172/92 H 95 05/17/21 08:00 05/17/21 08:00 05/17/21 08:00 05/17/21 08:00 05/17/21 08:00 - Constitutional no acute distress - Routine HEENT Exam Hea
[2021-05-17 13:59] LABS: Lipase 3252 U/L (23-300)
[2021-05-17 14:40] VITALS: BMI 34.0
[2021-05-17 16:00] VITALS: BP 124/54; PULSE 83; RESP 22; TEMP 36.7; O2SAT 97
[2021-05-17 17:44] LABS: POC Glucose,Bedside 160 (70-110)
[2021-05-17 18:23] LABS: Anion Gap 9.9 mEq/L (5-15); Blood Urea Nitrogen 19 mg/dl (7-17); Calcium 7.7 mg/dl (8.4-10.2); Carbon Dioxide 20 mmol/L (22.0-30.0); Chloride 107 mmol/L (98-107); Creatinine Clearance Estimated 67 mL/min (50-200); Estimated Glomerular Filt Rate 37 ml/min (>60); GFR (African American) 44 ML/MIN (>60); Glucose 190 mg/dl (74-100); Potassium 3.9 mmoL/L (3.5-5.1); Sodium 133 mmol/L (136-145)
--- NOTE | 2021-05-17 19:49 | PC.NURSE ---
PT IS RESTING IN BED. TOLERATED SITTING UP IN THE CHAIR FOR A FEW HOURS THIS AFTERNOON. ALERT AND ORIENTED X4. TOLERATING CLEAR LIQUIDS WELL. PT WAS ABLE TO TOLERATE TAKING SHOWER THIS SHIFT. AFTER PT GOT OUT OF THE SHOWER SHE STATED SHE FELT LIGHTHEADED. BP WAS 90/60. PT STATED SHE OCCASIONALLY FEELS THIS WAY AT HOME AFTER SHE TAKES HER MORNING CARVEDILOL WITH HER IMDUR. 1300 GABAPENTIN WAS HELD DUE TO LOW BP. PT REQUESTED PAIN MEDICATION X1 EARLY THIS MORNING AND HAS NOT COMPLAINED OF DISCOMFORT SINCE. REPORT HANDOFF TO BERYL SANDOVAL RN.
[2021-05-17 21:22] LABS: POC Glucose,Bedside 209 (70-110)
[2021-05-18] VITALS: BP 139/78; PULSE 81; RESP 16; TEMP 36.6; O2SAT 98
[2021-05-18 04:00] VITALS: BP 124/72; PULSE 66; RESP 16; TEMP 36.6; O2SAT 96
[2021-05-18 05:08] VITALS: BMI 33.9
[2021-05-18 05:35] LABS: POC Glucose,Bedside 148 (70-110)
[2021-05-18 06:36] LABS: Chloride 107 mmol/L (98-107); Potassium 3.7 mmoL/L (3.5-5.1); Sodium 132 mmol/L (136-145)
--- NOTE | 2021-05-18 06:37 | PC.NURSE ---
Shift summary. Pt has c/o MARVIN 1x t.o shift. Pt tx with 650 mg acetaminophen with favorable results. No c/o pain in abdomen t/o shift. VS remained stable. Rested well t/o shift. CB in reach. Will continue to monitor.
[2021-05-18 06:39] LABS: Anion Gap 9.7 mEq/L (5-15); Blood Urea Nitrogen 18 mg/dl (7-17); Carbon Dioxide 19 mmol/L (22.0-30.0); Creatinine Clearance Estimated 72 mL/min (50-200); Estimated Glomerular Filt Rate 40 ml/min (>60); GFR (African American) 48 ML/MIN (>60); Glucose 154 mg/dl (74-100)
[2021-05-18 06:40] LABS: Calcium 7.6 mg/dl (8.4-10.2)
[2021-05-18 06:45] LABS: Basophils % 0.3 % (0.1-2.0); Eosinophils # 0.1 K/mm3 (0.0-0.4); Eosinophils % 0.4 % (0.1-12.0); Hematocrit 35.5 % (37.0-47.0); Hemoglobin 11.6 g/dL (12.2-16.2); Lymphocytes # 1.7 K/mm3 (0.7-4.5); Lymphocytes % 15.6 % (10-50); Mean Corpuscular HGB Conc 32.6 g/dL (31.8-35.4); Mean Corpuscular Hemoglobin 28.8 pg (27.0-31.2); Mean Corpuscular Volume 88.5 fl (81-99); Mean Platelet Volume 8.8 fl (7.4-10.4); Monocytes # 0.4 K/mm3 (0.1-1.0); Monocytes % 4.1 % (1.7-9.3); Neutrophils # 8.5 K/mm3 (1.8-7.8); Neutrophils % 79.6 % (37.0-80.0); Platelet Count 273 K/mm3 (142-424); Red Blood Count 4.01 M/mm3 (4.20-5.40); Red Cell Distribution Width 14.4 % (11.5-17.5); White Blood Count 10.7 K/mm3 (4.8-10.8)
[2021-05-18 08:00] VITALS: BP 152/68; PULSE 77; RESP 20; TEMP 36.9; O2SAT 95
[2021-05-18 08:33] LABS: Lipase 979 U/L (23-300)
[2021-05-18 11:40] LABS: POC Glucose,Bedside 203 (70-110)
--- NOTE | 2021-05-18 15:00 | HMH.DCSUM ---
General - General Admission date:: 05/16/21 Discharge date: 05/18/21 HPI HPI: Patient is a 51-year-old white female, patient of our practice, who presents through the emergency room earlier today with a 2-day history of progressive nausea vomiting and malaise. She has a longstanding history of diabetes, diagnosed during . She has had multiple complications and has been in DKA on one occasion. Patient reported the presence of a boil in her vulvar region. We will ask NOISE ABATEMENT ENGINEER to evaluate this further. Work-up in the ER included CT of the abdomen which showed some haziness in the region of the pancreas suggesting pancreatitis. She also has a 4.3 x 3.6 cm right adnexal mass. Labs were done in the emergency room. Creatinine was 1.3 and acetone was detected along with elevated blood glucose. Patient is admitted for further evaluation and treatment Her gap was 15.8, lipase pending at Hospital Course Hospital Course: Laboratory Tests 05/16/21 05/16/21 05/16/21 09:55 09:55 09:55 WBC 13.0 H RBC 5.02 Hgb 14.2 Hct 46.4 MCV 92.5 MCH 28.3 MCHC 30.6 L RDW 14.6 Plt Count 352 MPV 9.3 Neut % (Auto) 86.1 H Lymph % (Auto) 10.2 [place] % (Auto) 2.6 Eos % (Auto) 0.6 Baso % (Auto) 0.4 Neut # (Auto) 11.2 H Lymph # (Auto) 1.3 [place] # (Auto) 0.3 Eos # (Auto) 0.1 Baso # (Auto) 0.1 Total Counted 100 Neutrophils % (Manual) 82 H Lymphocytes % (Manual) 16 Monocytes % (Manual) 2 Platelet Estimate Normal Hypochromasia 2+ VBG pH VBG pCO2 VBG pO2 VBG HCO3 VBG Total CO2 VBG O2 Saturation VBG Base Excess Sodium 130 L Potassium 4.1 Chloride 99 Carbon Dioxide 22 Anion Gap 13.1 BUN 20 H Creatinine 1.50 H Estimated Creat Clear 67 Estimated GFR 37 L Est GFR ( Amer) 44 L Glucose 774 H* POC Glucose Random Glucose Calcium 8.5 Phosphorus Magnesium Total Bilirubin 0.5 AST 22 ALT 21 Alkaline Phosphatase 199 H Troponin I Total Protein 6.0 L Albumin 3.4 L Globulin 2.6 Albumin/Globulin Ratio 1.3 Amylase 298 H Lipase 2719 H Serum HCG, Qual Urine Color Urine Appearance Urine pH Ur Specific [place] Urine Protein Urine Glucose (UA) Urine Ketones Urine Blood Urine Nitrate Urine Bilirubin Urine Urobilinogen Ur Leukocyte Esterase Urine RBC Urine WBC Ur Squamous Epith Cells Urine Bacteria Acetone Level SARS-CoV-2 (PCR) Influenza A Untype (PCR) Influenza Type B (PCR) 05/16/21 05/16/21 05/16/21 09:55 09:55 09:55 WBC RBC Hgb Hct MCV MCH MCHC RDW Plt Count MPV Neut % (Auto) Lymph % (Auto) [place] % (Auto) Eos % (Auto) Baso % (Auto) Neut # (Auto) Lymph # (Auto) [place] # (Auto) Eos # (Auto) Baso # (Auto) Total Counted Neutrophils % (Manual) Lymphocytes % (Manual) Monocytes % (Manual) Platelet Estimate Hypochromasia VBG pH VBG pCO2 VBG pO2 VBG HCO3 VBG Total CO2 VBG O2 Saturation VBG Base Excess Sodium Potassium Chloride Carbon Dioxide Anion Gap BUN Creatinine Estimated Creat Clear Estimated GFR Est GFR ( Amer) Glucose POC Glucose Random Glucose Calcium Phosphorus 3.7 Magnesium 1.5 L Total Bilirubin AST ALT Alkaline Phosphatase Troponin I < 0.01 Total Protein Albumin Globulin Albumin/Globulin Ratio Amylase Lipase Serum HCG, Qual Negative Urine Color Urine Appearance Urine pH Ur Specific [place] Urine Protein Urine Glucose (UA) Urine Ketones Urine Blood Urine Nitrate Urine Bilirubin Urine Urobilinogen Ur Leukocyte Esterase Urine RBC Urine WBC Ur Squamous Epith Cells Urine Bacteria Acetone Level
--- NOTE | 2021-05-18 16:09 | PC.NURSE ---
Patient ready for discharge to home
--- NOTE | 2021-05-22 19:52 | HMH.GYNCON ---
PHONE OPERATOR - CN: HPI - Data of Consult Patient: known to practice within the last 3 years Consult date: 05/22/21 Requesting Physician: Donald Rivas MD Primary Care Provider: Francisco Greer APRN - Consult Narrative Reason for consult: other History of present illness: Ms. Burkett is a 51 year old female I had seen her a few days ago with a vulvar abscess and at that time which is indurated and not draining. It had drained previously. I am asked to see her again because the abscess has come back. CC: Donald Rivas MD Review of Systems - Review of Systems Review of systems:: pertinent systems reviewed and negative unless documented below - *Neurologic Reports weakness, Denies abnormal hearing, Denies behavioral changes [facility] History I have reviewed the patient's past medical history: Yes Medical History: Reports:: Anxiety, Congestive Heart Failure, Coronary Artery Disease, Depression, Diabetes Mellitus Type 2, Gastroesophageal Reflux Disease(GERD), Hyperlipidemia, Hypertension, Migraine, Myocardial Infarction, Renal Disease Denies:: Cancer, Diabetes Mellitus Type 1, Internal Pacemaker, MRSA, Seizures *Have you ever received a pneumonia vaccine?: Yes *Have you received a flu vaccine this season?: No Other Medical History: Reports: Anemia, Arthritis. Denies: Blood Transfusion Reaction Laterality Cases: Left: Arthroscopy Hip, Right: Arthroscopy Knee, Carpal Tunnel Release, Bilateral: Tonsillectomy Other Surgeries: Yes: Cardiac Catheterization, Cholecystectomy, Colonoscopy, Coronary Stent, , Dilation and Curettage (2005), Other. 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 toe on rt foot, TMA left foot) Fractures: Yes (HIP FRACTURE) - *Social History Smoking Status: Current every day smoker Tobacco Type: cigarettes # Packs/Day (cigarettes): 1 Alcohol Intake: never Alcohol Intake Frequency:: other Substance Use Type: denies use *Occupational Status:: unemployed Housing: house Household Members: friend(s) *Travel in the last 8 weeks: None - Psychiatric History Pschychiatric History:: Reports:: Anxiety, Depression Family Hx:: Unable to obtain Meds Home Medications Medication Instructions Recorded Confirmed Type aspirin 81 mg tablet,delayed 81 mg PO DAILY #90 tab 10/05/20 05/21/21 Rx release insulin glargine 100 unit/mL (3 65 unit SQ HS #20 ml 01/04/21 05/21/21 Rx mL) subcutaneous pen carvedilol 12.5 mg tablet 12.5 mg PO BID #180 tab 05/13/21 05/22/21 Rx isosorbide mononitrate 30 mg 30 mg PO DAILY #90 tab 05/13/21 05/21/21 Rx tablet,extended release 24 hr RX: Cholecalciferol (Vitamin D3) 1,250 mcg PO WEEKLY 05/16/21 05/21/21 History [Dialyvite Vitamin D3 Max] RX: Gabapentin 600 mg PO TID 05/16/21 05/21/21 History RX: Rimegepant Sulfate [Nurtec Odt] 75 mg PO NEEDED PRN 05/16/21 05/21/21 History RX: Insulin Lispro [Humalog 14 unit SQ TID 05/17/21 05/21/21 History Kwikpen U-100] RX: Levocetirizine Dihydrochloride 5 mg PO DAILY 05/17/21 05/21/21 History RX: Tizanidine HCl 4 mg PO HSP PRN 05/17/21 05/21/21 History RX: Venlafaxine HCl [Venlafaxine 75 mg PO DAILY 05/17/21 05/21/21 History HCl ER] Blood Sugar Diagnostic [FreeStyle See Rx Instructions .ROUTE 05/21/21 05/21/21 History Test] NEEDED PRN cephALEXin [Cephalexin 500mg Tab] 500 mg PO BID 05/21/21 05/21/21 History Benzonatate [Benzonatate 100mg 100 mg PO TIDP PRN 05/22/21 05/22/21 History cap] Allergies Allergy/AdvReac Type Severity Reaction Status Date / Time Sulfa (Sulfonamide Allergy Unknown Verified 05/07/21 14:23 Antibiotics) [SULFA (SULFONAMIDE ANTIBIOTICS)] PHONE OPERATOR - Exam Vital signs: Temp Pulse Resp BP Pulse Ox 98.4 F 77 20 152/68 H 95 05/18/21 08:00 05/18/21 08:00 05/18/21 08:00 05/18/21 08:00 05/18/21 08:00 - Constitutional no acute distress - Routine HEENT Exam Head: Present: normocephalic Eye: Present: EOMI, PERRL ENT: Present: mucous membranes moist - Routine Exam
== END 2021-05-18 16:40 | disposition home or self-care (01) | DRG 438 ==
LOC: ER 13:25 → 2ND 16:09
PROVIDERS: Emergency Medicine; Nurse Practitioner Family; Admitting Provider Family Medicine; Emergency Provider Emergency Medicine; PCP Nurse Practitioner Family; Visit Provider Family Medicine
DX: K85.90 Acute pancreatitis without necrosis or infection, unspecified (principal); E11.10 Type 2 diabetes mellitus with ketoacidosis without coma; L02.215 Cutaneous abscess of perineum; Z20.822 Contact with and (suspected) exposure to COVID-19; I11.0 Hypertensive heart disease with heart failure; I50.9 Heart failure, unspecified; F32.A Depression, unspecified; E11.9 Type 2 diabetes mellitus without complications; E78.5 Hyperlipidemia, unspecified; K21.9 Gastro-esophageal reflux disease without esophagitis; I10 Essential (primary) hypertension; I25.2 Old myocardial infarction; F17.210 Nicotine dependence, cigarettes, uncomplicated; Z95.5 Presence of coronary angioplasty implant and graft; Z89.421 Acquired absence of other right toe(s); Z89.422 Acquired absence of other left toe(s)
CPT/HCPCS: 36415; 71045; 74176; 80048; 80053; 81001; 82009; 82150; 82803; 82947; 82962; 83690; 83735; 84100; 84484; 84703; 85007; 85025; 93005; 96365; 96366; 96375; 96376; 99284; C9803; J2405; J3370; U0003; U0005

== ENCOUNTER 2021-05-21 14:24 | Observation (INO) | payer MEDICARE, MEDICAID, SELFPAY ==
[2021-05-21] VITALS (7 sets, daily range): BP systolic 130–180; BP diastolic 71–94; PULSE 70–84; RESP 16–22; TEMP 36.7–37.2; O2SAT 95–99; BMI 31.9; BMI 33.9; BMI 33.5
--- NOTE | 2021-05-21 14:47 | ECG_ITS ---
APPROVED REPORT Exam: Resting ECG HR:77 bpm ECG Measurements Heart Rate 77 AXES SC 140 P 45 QRSd 74 QRS 20 QT 386 T 26 QTc 436 Conclusion Normal sinus rhythm Normal ECG Electronically signed by : Wally Teran MD 05/22/2021 17:28:07
[2021-05-21 15:02] LABS: Acetone, Serum (Rapid) Small (None Detect)
--- NOTE | 2021-05-21 15:05 | HMH.EDGENADL ---
ED Disposition Clinical Impression: Acute pancreatitis Qualifiers: Pancreatitis type: unspecified pancreatitis type Acute pancreatitis complication: no infection or necrosis Qualified Code(s): K85.90 - Acute pancreatitis without necrosis or infection, unspecified Diabetic ketoacidosis Qualifiers: Diabetes mellitus type: other specified (including MILY) Diabetes mellitus complication detail: without coma Qualified Code(s): E13.10 - Other specified diabetes mellitus with ketoacidosis without coma Disposition: Admitted as Observation Condition on Discharge: Fair - Critical Care Critical Care Time: No Attestation: On 05/21/21, the high probability of a clinically significant, sudden or life threatening deterioration of the following system(s) required my full and direct attention, intervention and personal management. The time I documented below is in addition to time spent performing reported procedures but includes the following listed in this critical care notation. Medical Decision Making - Medical Records Medical records reviewed: Yes: I reviewed the patient's medical records. MR Comment: Reviewed discharge summary from admission 05/16/2021 through 05/18/2021. Seen by me in this emergency department. She had diabetic ketoacidosis, pancreatitis, and a vulvar abscess. Her only new medication at discharge was Keflex. - Mauri Inquiry Pt receiving controlled substance: Yes Mauri was queried for this patient: Yes Risks and benefits of using a controlled substance: were not discussed with pt by me Vital Signs: 05/21/21 14:25 05/21/21 15:00 05/21/21 16:00 Temperature 98.4 F Temperature Source Oral Pulse Rate 73 72 Pulse Rate [Radial] 82 Respiratory Rate 18 16 18 Blood Pressure 180/94 H 130/78 Blood Pressure [Right Arm] 159/86 H Blood Pressure Mean [Right Arm] 110 Blood Pressure Source Automatic Cuff Automatic Cuff Blood Pressure Position Sitting Sitting Blood Pressure Position [Right Arm] Sitting 02 Sat by Pulse Oximetry 98 96 95 Oxygen Delivery Method Room Air Room Air Room Air - Lab Data Lab Results 05/21/21 14:26: VBG pH 7.31, VBG pCO2 33.5 L, VBG pO2 57.5 H, VBG HCO3 16.6 L, VBG Total CO2 17.6 L, VBG O2 Saturation 89.8 H, VBG Base Excess -9.7 L 05/21/21 14:42: Sodium 135 L, Potassium 4.9, Chloride 103, Carbon Dioxide 19 L, Anion Gap 17.9 H, BUN 12, Creatinine 1.00, Estimated Creat Clear 100, Estimated GFR 58 L, Est GFR ( Amer) 71, Glucose 340 H, Calcium 8.3 L, Total Bilirubin 0.7, AST 28, ALT 13, Alkaline Phosphatase 129 H, Troponin I 0.02, Total Protein 5.9 L, Albumin 3.1 L, Globulin 2.8, Albumin/Globulin Ratio 1.1 05/21/21 14:42: Amylase 61, Acetone Level Small 05/21/21 14:42: Lipase 454 H 05/21/21 15:15: WBC 9.9, RBC 4.40, Hgb 12.9, Hct 39.4, MCV 89.6, MCH 29.2, MCHC 32.6, RDW 14.1, Plt Count 414 D, MPV 8.3, Neut % (Auto) 78.0, Lymph % (Auto) 15.6, [place] % (Auto) 5.0, Eos % (Auto) 1.0, Baso % (Auto) 0.3, Neut # (Auto) 7.7, Lymph # (Auto) 1.5, [place] # (Auto) 0.5, Eos # (Auto) 0.1, Baso # (Auto) 0.0 05/21/21 15:37: Urine Color Yellow, Urine Appearance Sl cloudy, Urine pH 6.0, Ur Specific [place] >= 1.030, Urine Protein 3+, Urine Glucose (UA) 3+, Urine Ketones 3+, Urine Blood 2+, Urine Nitrate Negative, Urine Bilirubin Negative, Urine Urobilinogen 0.2, Ur Leukocyte Esterase Negative, Urine RBC 3-5, Urine WBC 10-20, Ur Squamous Epith Cells 5-10, Urine Bacteria 1+ Result diagrams: 05/21/21 15:15 05/21/21 14:42 Orders (Tests/Meds): ED MEDICATIONS Discontinued Medications Generic Name Dose Route Start Last Admin Trade Name Freq PRN Reason Stop Dose Admin Hydromorphone HCl 1 mg 05/21/21 15:18 05/21/21 15:26 Hydromorphone 2mg/Ml Syringe IV 05/21/21 15:19 1 mg ONCE ONE Administration Sodium Chloride 1,000 mls @ 999 mls/hr 05/21/21 14:30 05/21/21 14:46 Sod Chlor 0.9% 1000ml Bag IV 05/21/21 15:30 999 mls/hr .Q1H1M JASEN Administration Insulin Human Regular 5 unit
[2021-05-21 15:06] LABS: Alanine Aminotransferase 13 U/L (12-78); Albumin Level 3.1 g/dl (3.5-5.0); Albumin/Globulin Ratio 1.1 (1.1-1.8); Alkaline Phosphatase 129 U/L (38-126); Anion Gap 17.9 mEq/L (5-15); Aspartate Amino Transferase 28 U/L (14-36); Bilirubin,Total 0.7 mg/dl (0.2-1.3); Blood Urea Nitrogen 12 mg/dl (7-17); Calcium 8.3 mg/dl (8.4-10.2); Carbon Dioxide 19 mmol/L (22.0-30.0); Chloride 103 mmol/L (98-107); Creatinine Clearance Estimated 100 mL/min (50-200); Estimated Glomerular Filt Rate 58 ml/min (>60); GFR (African American) 71 ML/MIN (>60); Globulin 2.8 g/dL (1.3-3.2); Glucose 340 mg/dl (74-100); Potassium 4.9 mmoL/L (3.5-5.1); Sodium 135 mmol/L (136-145); Total Protein,Serum 5.9 g/dl (6.3-8.2)
[2021-05-21 15:17] LABS: Troponin I 0.02 ng/ml (0.00-0.034)
[2021-05-21 15:24] LABS: Amylase 61 U/L (30-110)
[2021-05-21 15:33] LABS: VBG Base Excess -9.7 mmol/L (-2.4-2.3); VBG HCO3 16.6 mmol/L (23-30); VBG Oxygen Saturation 89.8 % (50-70); VBG PCO2 33.5 mmol/L (35-51); VBG PH 7.31 mmol/L (7.31-7.41); VBG PO2 57.5 mmol/L (28-40); VBG Total CO2 17.6 mmol/L (23-27)
[2021-05-21 15:33] LABS: Lipase 454 U/L (23-300)
[2021-05-21 15:38] LABS: Microscopic, Urine URINE MICROSCOPIC (MICROSCOPIC)
[2021-05-21 15:42] LABS: Appearance,Urine SL CLOUDY (Clear); Blood, Urine 2+ (Negative); Color,Urine YELLOW (Yellow); Glucose,Urine (UA) 3+ (Negative); Ketones,Urine 3+ (Negative); Leukocyte Esterase,Urine Negative (Negative); Nitrate,Urine Negative (Negative); Protein,Urine 3+ (Negative); Specific Gravity, Urine >= 1.030 (1.005-1.030); Urobilinogen,Urine 0.2 EU/dl (0.2)
[2021-05-21 15:47] LABS: Basophils % 0.3 % (0.1-2.0); Eosinophils # 0.1 K/mm3 (0.0-0.4); Hematocrit 39.4 % (37.0-47.0); Hemoglobin 12.9 g/dL (12.2-16.2); Lymphocytes # 1.5 K/mm3 (0.7-4.5); Lymphocytes % 15.6 % (10-50); Mean Corpuscular HGB Conc 32.6 g/dL (31.8-35.4); Mean Corpuscular Hemoglobin 29.2 pg (27.0-31.2); Mean Corpuscular Volume 89.6 fl (81-99); Mean Platelet Volume 8.3 fl (7.4-10.4); Monocytes # 0.5 K/mm3 (0.1-1.0); Neutrophils # 7.7 K/mm3 (1.8-7.8); Platelet Count 414 K/mm3 (142-424); Red Cell Distribution Width 14.1 % (11.5-17.5); White Blood Count 9.9 K/mm3 (4.8-10.8)
[2021-05-21 15:52] LABS: Bilirubin,Urine Negative (Negative)
--- NOTE | 2021-05-21 15:59 | PC.NURSE ---
speaking with Dr. Nguyen
--- NOTE | 2021-05-21 16:05 | PC.NURSE ---
Notified house of admission
[2021-05-21 16:12] LABS: Coronavirus 19, PCR Not Detected (NotDetected); Influenza A, PCR Not Detected (NotDetected); Influenza B, PCR Not Detected (NotDetected)
[2021-05-21 16:13] LABS: Bacteria,Urine 1+ /lpf
--- NOTE | 2021-05-21 16:36 | PC.NURSE ---
1601 bed assignment requested, room 219, not stepdown all staff notified
[2021-05-21 17:44] LABS: POC Glucose,Bedside 202 (70-110)
--- NOTE | 2021-05-21 17:53 | PC.NURSE ---
REPORT CALLED TO FLOOR
[2021-05-21 21:13] LABS: POC Glucose,Bedside 245 (70-110)
[2021-05-22 04:39] VITALS: BP 153/88; PULSE 67; RESP 18; TEMP 37.1; O2SAT 99
[2021-05-22 05:02] VITALS: BMI 31.0
--- NOTE | 2021-05-22 05:17 | PC.NURSE ---
A&OX4. TOLERATING RA WELL. UP TO BATHROOM INDEPENDENTLY. PT HAS C/O ABD PAIN X2 THIS SHIFT. TX PER MAR, ON REASSESSMENT PT STATES PAIN IS RESOLVED. PT HAS ALSO REQUIRED ZOFRAN FOR NA X1. TOLERATING CLEAR LIQUID DIET WELL. HAS BEEN DRINKING. NO OTHER C/O THUS FAR. FSBS AND HIGH INTENSITY SLIDING SCALE PER MAR. VSS WILL CONTINUE TO MONITOR.
[2021-05-22 05:29] LABS: POC Glucose,Bedside 161 (70-110)
--- NOTE | 2021-05-22 07:27 | HMH.PHAVTE ---
[facility] Pharmacy VTE Monitoring - Patient Demographics Admission date: 05/21/21 Report Date: 05/22/21 Time: 07:27 Allergies/Adverse Reactions: Patient Allergies Sulfa (Sulfonamide Antibiotics) [SULFA (SULFONAMIDE ANTIBIOTICS)] Allergy (Unknown, Verified 05/07/21 14:23) Height: 1.68 m Weight: 87.543 kg Patient Problems: Current Active Problems DKA (diabetic ketoacidosis) (Acute) Acute pancreatitis (Acute) - VTE Risk Labs: VTE Related Lab Results Hgb 12.9 g/dL (12.2-16.2) 05/21/21 15:15 Hct 39.4 % (37.0-47.0) 05/21/21 15:15 Plt Count 414 K/mm3 (142-424) D 05/21/21 15:15 BUN 12 mg/dl (7-17) 05/21/21 14:42 Creatinine 1.00 mg/dl (0.52-1.04) 05/21/21 14:42 Estimated Creat Clear 100 mL/min (50-200) 05/21/21 14:42 VTE Score: 3 VTE Risk Level: Low Risk - Prophylaxis VTE Prophylaxis Ordered?: Yes Types of VTE Prophylaxis: TEDS Knee High Location of Applied Device: Bilateral Lower Extremeties
--- NOTE | 2021-05-22 07:47 | HMH.PHAINT ---
MEDICATION RECONCILIATION COMPLETE USING SURESCRIPTS AND PREVIOUS OFFICE VISIT
[2021-05-22 08:00] VITALS: BP 140/72; PULSE 67; RESP 16; TEMP 36.5; O2SAT 98
[2021-05-22 09:10] LABS: Basophils % 0.3 % (0.1-2.0); Eosinophils # 0.1 K/mm3 (0.0-0.4); Eosinophils % 1.2 % (0.1-12.0); Lymphocytes % 20.9 % (10-50); Mean Corpuscular HGB Conc 31.6 g/dL (31.8-35.4); Mean Corpuscular Hemoglobin 28.5 pg (27.0-31.2); Mean Corpuscular Volume 90.2 fl (81-99); Mean Platelet Volume 7.8 fl (7.4-10.4); Monocytes # 0.4 K/mm3 (0.1-1.0); Monocytes % 4.2 % (1.7-9.3); Neutrophils # 6.9 K/mm3 (1.8-7.8); Neutrophils % 73.2 % (37.0-80.0); Platelet Count 414 K/mm3 (142-424); Red Blood Count 4.21 M/mm3 (4.20-5.40); Red Cell Distribution Width 14.3 % (11.5-17.5); White Blood Count 9.4 K/mm3 (4.8-10.8)
[2021-05-22 09:20] LABS: Chloride 109 mmol/L (98-107); Sodium 140 mmol/L (136-145)
[2021-05-22 09:23] LABS: Alanine Aminotransferase 13 U/L (12-78); Albumin Level 3.1 g/dl (3.5-5.0); Albumin/Globulin Ratio 1.1 (1.1-1.8); Alkaline Phosphatase 126 U/L (38-126); Aspartate Amino Transferase 18 U/L (14-36); Bilirubin,Total 0.2 mg/dl (0.2-1.3); Blood Urea Nitrogen 13 mg/dl (7-17); Carbon Dioxide 23 mmol/L (22.0-30.0); Creatinine Clearance Estimated 71 mL/min (50-200); Estimated Glomerular Filt Rate 43 ml/min (>60); GFR (African American) 52 ML/MIN (>60); Globulin 2.8 g/dL (1.3-3.2); Total Protein,Serum 5.9 g/dl (6.3-8.2)
[2021-05-22 09:24] LABS: Calcium 8.1 mg/dl (8.4-10.2); Glucose 174 mg/dl (74-100)
--- NOTE | 2021-05-22 09:39 | HMH.PHACONS ---
- Pharmacy Consult Date: 05/22/21 Time: 09:39 Referring provider: DR. WEBER Reason for Consult:: VANCOMYCIN DOSING Allergies and ADEs:: Allergies Allergy/AdvReac Type Severity Reaction Status Date / Time Sulfa (Sulfonamide Allergy Unknown Verified 05/07/21 14:23 Antibiotics) [SULFA (SULFONAMIDE ANTIBIOTICS)] Home Medications:: Home Medications Medication Instructions Recorded Confirmed Type aspirin 81 mg tablet,delayed 81 mg PO DAILY #90 tab 10/05/20 05/21/21 Rx release insulin glargine 100 unit/mL (3 65 unit SQ HS #20 ml 01/04/21 05/21/21 Rx mL) subcutaneous pen carvedilol 12.5 mg tablet 12.5 mg PO BID #180 tab 05/13/21 05/22/21 Rx isosorbide mononitrate 30 mg 30 mg PO DAILY #90 tab 05/13/21 05/21/21 Rx tablet,extended release 24 hr Cholecalciferol (Vitamin D3) 1,250 mcg PO WEEKLY 05/16/21 05/21/21 History [Dialyvite Vitamin D3 Max] Gabapentin 600 mg PO TID 05/16/21 05/21/21 History Rimegepant Sulfate [Nurtec Odt] 75 mg PO NEEDED PRN 05/16/21 05/21/21 History Insulin Lispro [Humalog Kwikpen 14 unit SQ TID 05/17/21 05/21/21 History U-100] Levocetirizine Dihydrochloride 5 mg PO DAILY 05/17/21 05/21/21 History Tizanidine HCl 4 mg PO HSP PRN 05/17/21 05/21/21 History Venlafaxine HCl [Venlafaxine HCl 75 mg PO DAILY 05/17/21 05/21/21 History ER] Blood Sugar Diagnostic [FreeStyle See Rx Instructions .ROUTE 05/21/21 05/21/21 History Test] NEEDED PRN cephALEXin [Cephalexin 500mg Tab] 500 mg PO BID 05/21/21 05/21/21 History Benzonatate [Benzonatate 100mg 100 mg PO TIDP PRN 05/22/21 05/22/21 History cap] Height: 1.68 m Weight: 87.543 kg Laboratory Results:: Laboratory Results - last 24 hr 05/21/21 14:26: VBG pH 7.31, VBG pCO2 33.5 L, VBG pO2 57.5 H, VBG HCO3 16.6 L, VBG Total CO2 17.6 L, VBG O2 Saturation 89.8 H, VBG Base Excess -9.7 L 05/21/21 14:42: Sodium 135 L, Potassium 4.9, Chloride 103, Carbon Dioxide 19 L, Anion Gap 17.9 H, BUN 12, Creatinine 1.00, Estimated Creat Clear 100, Estimated GFR 58 L, Est GFR ( Amer) 71, Glucose 340 H, Calcium 8.3 L, Total Bilirubin 0.7, AST 28, ALT 13, Alkaline Phosphatase 129 H, Troponin I 0.02, Total Protein 5.9 L, Albumin 3.1 L, Globulin 2.8, Albumin/Globulin Ratio 1.1 05/21/21 14:42: Amylase 61, Acetone Level Small 05/21/21 14:42: Lipase 454 H 05/21/21 15:15: WBC 9.9, RBC 4.40, Hgb 12.9, Hct 39.4, MCV 89.6, MCH 29.2, MCHC 32.6, RDW 14.1, Plt Count 414 D, MPV 8.3, Neut % (Auto) 78.0, Lymph % (Auto) 15.6, [place] % (Auto) 5.0, Eos % (Auto) 1.0, Baso % (Auto) 0.3, Neut # (Auto) 7.7, Lymph # (Auto) 1.5, [place] # (Auto) 0.5, Eos # (Auto) 0.1, Baso # (Auto) 0.0 05/21/21 15:37: Urine Color Yellow, Urine Appearance Sl cloudy, Urine pH 6.0, Ur Specific [place] >= 1.030, Urine Protein 3+, Urine Glucose (UA) 3+, Urine Ketones 3+, Urine Blood 2+, Urine Nitrate Negative, Urine Bilirubin Negative, Urine Urobilinogen 0.2, Ur Leukocyte Esterase Negative, Urine RBC 3-5, Urine WBC 10-20, Ur Squamous Epith Cells 5-10, Urine Bacteria 1+ 05/21/21 16:04: SARS-CoV-2 (PCR) Not detected, Influenza A Untype (PCR) Not detected, Influenza Type B (PCR) Not detected 05/21/21 17:35: POC Glucose 202 H 05/21/21 20:00: POC Glucose 245 H 05/22/21 05:01: POC Glucose 161 H 05/22/21 08:58: WBC 9.4, RBC 4.21, Hgb 12.0 L, Hct 38.0, MCV 90.2, MCH 28.5, MCHC 31.6 L, RDW 14.3, Plt Count 414, MPV 7.8, Neut % (Auto) 73.2, Lymph % (Auto) 20.9, [place] % (Auto) 4.2, Eos % (Auto) 1.2, Baso % (Auto) 0.3, Neut # (Auto) 6.9, Lymph # (Auto) 2.0, [place] # (Auto) 0.4, Eos # (Auto) 0.1, Baso # (Auto) 0.0 05/22/21 08:58: Sodium 140, Potassium 4.0, Chloride 109 H, Carbon Dioxide 23, Anion Gap 12.0, BUN 13, Creatinine 1.30 H D, Estimated Creat Clear 71, Estimated GFR 43 L, Est GFR ( Amer) 52 L D, Glucose 174 H D, Calcium 8.1 L, Total Bilirubin 0.2, AST 18 D, ALT 13, Alkaline Phosphatase 126, Total Protein 5.9 L, Albumin 3.1 L, Globulin 2.8, Albumin/Globulin Ratio 1.1 Medical History: Reports:: Anx
[2021-05-22 09:42] LABS: Acetone, Serum (Rapid) None Detected (None Detect)
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
[2021-05-22 11:37] LABS: POC Glucose,Bedside 170 (70-110)
[2021-05-22 15:02] VITALS: BMI 31.1
[2021-05-22 16:00] VITALS: BP 132/77; PULSE 63; RESP 16; TEMP 36.5; O2SAT 96
[2021-05-22 16:23] LABS: POC Glucose,Bedside 213 (70-110)
--- NOTE | 2021-05-22 18:19 | PC.NURSE ---
PT IS SITTING ON THE SOB. MEDICATED FOR ABDOMINAL PAIN NEEDED. PT HAS AMBULATED TO THE BATHROOM WITH 1 ASSIST. LUNG SOUNDS CLEAR. ABDOMEN SOFT/TENDERNESS NOTED RUQ WITH ACTIVE BOWEL SOUNDS. TOLERATING CLEAR LIQUIDS WELL. PT HAS REDNESS/SWELLING NOTED TO THE LABIA. WAS NOTIFIED OF CONSULT. VSS. WILL CONTINUE TO MONITOR.
[2021-05-22 20:00] VITALS: BP 139/77; PULSE 63; RESP 22; TEMP 36.4; O2SAT 97
--- NOTE | 2021-05-22 20:00 | PC.NURSE ---
1939 Dr. Dempsey at bedside at this time, new verbal orders received
[2021-05-22 22:13] LABS: POC Glucose,Bedside 121 (70-110)
[2021-05-23 04:00] VITALS: BP 119/68; PULSE 62; RESP 22; TEMP 36.4; O2SAT 95
[2021-05-23 05:01] VITALS: BMI 34.4
[2021-05-23 05:37] LABS: POC Glucose,Bedside 146 (70-110)
--- NOTE | 2021-05-23 05:52 | PC.NURSE ---
pt A&Ox4, has complained of pain one time and was treated per MAR, abdomen soft and tender, remains on room air, O2 sats 95-97%, FSBS at 2100 was 121, FSBS at 0600 was 146
[2021-05-23 06:16] LABS: Basophils % 0.2 % (0.1-2.0); Eosinophils # 0.1 K/mm3 (0.0-0.4); Hematocrit 34.6 % (37.0-47.0); Lymphocytes # 1.8 K/mm3 (0.7-4.5); Lymphocytes % 21.1 % (10-50); Mean Corpuscular Hemoglobin 27.6 pg (27.0-31.2); Mean Corpuscular Volume 91.8 fl (81-99); Mean Platelet Volume 8.1 fl (7.4-10.4); Monocytes # 0.4 K/mm3 (0.1-1.0); Monocytes % 5.1 % (1.7-9.3); Neutrophils # 6.2 K/mm3 (1.8-7.8); Neutrophils % 72.6 % (37.0-80.0); Platelet Count 344 K/mm3 (142-424); Red Blood Count 3.77 M/mm3 (4.20-5.40); Red Cell Distribution Width 14.3 % (11.5-17.5); White Blood Count 8.5 K/mm3 (4.8-10.8)
[2021-05-23 06:25] LABS: Chloride 109 mmol/L (98-107); Potassium 3.9 mmoL/L (3.5-5.1); Sodium 138 mmol/L (136-145)
[2021-05-23 06:28] LABS: Anion Gap 12.9 mEq/L (5-15); Blood Urea Nitrogen 12 mg/dl (7-17); Carbon Dioxide 20 mmol/L (22.0-30.0); Creatinine Clearance Estimated 85 mL/min (50-200); Estimated Glomerular Filt Rate 47 ml/min (>60); GFR (African American) 57 ML/MIN (>60)
[2021-05-23 06:29] LABS: Calcium 7.7 mg/dl (8.4-10.2); Glucose 152 mg/dl (74-100)
[2021-05-23 07:17] LABS: Hemoglobin 10.4 g/dL (12.2-16.2)
[2021-05-23 08:00] VITALS: BP 114/60; PULSE 66; RESP 20; TEMP 36.6; O2SAT 96
--- NOTE | 2021-05-23 13:24 | HMH.DCSUM ---
General - General Admission date:: 05/21/21 Discharge date: 05/23/21 HPI HPI: 51-year-old female patient arrived to [facility] emergency department via EMS with reports of abdominal pain, nausea, vomiting, and diarrhea since last night and today. She reports she has not checked her blood sugar in several days because she has ran out of test strips but has been using her insulin as prescribed. She does describe her pain as sharp and stabbing and is present in her right upper and left upper quadrants as well as her epigastric area radiating through to her back. She denies fever/chills/body aches. Glucose per squad in route 444 In the emergency department In the emergency department glucose was 354, sodium was 135, potassium was 4.9, amylase 61, lipase 454 and acetone revealed small level In the emergency department she received 1 mg of Dilaudid, 5 units of regular insulin, and 4 mg of ondansetron all IV. She also received 1 L of normal saline We will consult [facility] for ongoing left valvular abscess 51-year-old female patient is now sitting up in bed resting quietly she reports she still has abdominal pain in her right and left upper quadrants as well as her epigastric areas. She reports her nausea has decreased and has had no more episodes of emesis or loose bowel movements. Hospital Course Hospital Course: 51-year-old female patient arrived to [facility] emergency department via EMS with reports of abdominal pain, nausea, vomiting, and diarrhea since last night and today. She reports she has not checked her blood sugar in several days because she has ran out of test strips but has been using her insulin as prescribed. She does describe her pain as sharp and stabbing and is present in her right upper and left upper quadrants as well as her epigastric area radiating through to her back. She denies fever/chills/body aches. Glucose per squad in route 444 In the emergency department In the emergency department glucose was 354, sodium was 135, potassium was 4.9, amylase 61, lipase 454 and acetone revealed small level In the emergency department she received 1 mg of Dilaudid, 5 units of regular insulin, and 4 mg of ondansetron all IV. She also received 1 L of normal saline We will consult [facility] for ongoing left valvular abscess During her stay her blood sugar has reduced to currently 152, she did not require IV insulin during this admission. [facility] has seen and obtained abscess cultures and will be followed until resulted Current lab work, H&H is stable BUN 12, creatinine 1.2 there was no acetone present 51-year-old female patient sitting up in bed she does still report some left-sided abdominal tenderness, but she does report decreased pain from yesterday. She is tolerating a regular diet without any difficulty she denies any nausea. She did have a Dexcom placed today per certified special education paraeducator and she verbalizes understanding all instructions. She will follow-up in the office next week for diabetic teaching, all of her glucose supplies have been reordered and are at the pharmacy she states that she will pick them up on her way home. She has a follow-up appointment with surgery for her abscess. Discussed discharge home and she is in agreement with this. PLAN: 1. We will discharge home today 2. Dexicom placement today with instructions 3. [place] 5/325 as needed for pain 4. Follow-up with general surgery 5. Follow-up with PCP for diabetes counseling 6. Augmentin twice daily x10 days Objective Vital signs: Temp Pulse Resp BP Pulse Ox 97.8 F 66 20 114/60 96 05/23/21 08:00 05/23/21 08:00 05/23/21 08:00 05/23/21 08:00 05/23/21 08:00 no acute distress - *Routine HEENT Exam Head: Present: normocephalic Eye: Present: EOMI ENT: Present: mucous membranes moist - *Routine Neck Exam Present: trachea midline. Absent: tracheal nathan
--- NOTE | 2021-05-23 14:10 | HMH.PHAINT ---
MEDICATION DISCHARGE EDUCATION COMPLETE. PATIENT HAD NO QUESTIONS
[2021-05-24 10:19] LABS: POC Glucose,Bedside 235 (70-110)
== END 2021-05-23 15:40 | disposition home or self-care (01) ==
LOC: ER 16:07 → 2ND 16:30
PROVIDERS: Nurse Practitioner Family; Admitting Provider Emergency Medicine; Emergency Provider Emergency Medicine; Visit Provider Emergency Medicine
DX: E11.10 Type 2 diabetes mellitus with ketoacidosis without coma (principal); K85.90 Acute pancreatitis without necrosis or infection, unspecified; I11.0 Hypertensive heart disease with heart failure; I50.9 Heart failure, unspecified; Z20.822 Contact with and (suspected) exposure to COVID-19; Z79.899 Other long term (current) drug therapy; Z88.8 Allergy status to other drugs, medicaments and biological substances; K21.9 Gastro-esophageal reflux disease without esophagitis; G43.909 Migraine, unspecified, not intractable, without status migrainosus; I25.10 Atherosclerotic heart disease of native coronary artery without angina pectoris; F17.210 Nicotine dependence, cigarettes, uncomplicated
CPT/HCPCS: G0378; 36415; 80048; 80053; 81001; 82009; 82150; 82803; 82962; 83690; 84484; 85025; 87070; 87077; 87086; 87186; 87205; 93005; 96365; 96375; 99284; C9803; J2405; U0003; U0005

== ENCOUNTER → 2021-06-05 18:10 | Outpatient (CLI) | payer MEDICARE, MEDICAID, SELFPAY ==
[2021-06-05 19:10] LABS: Basophils # 0.1 K/mm3 (0-0.2); Basophils % 0.7 % (0.1-2.0); Eosinophils # 0.1 K/mm3 (0.0-0.4); Eosinophils % 1.4 % (0.1-12.0); Hematocrit 45.5 % (37.0-47.0); Lymphocytes # 1.7 K/mm3 (0.7-4.5); Lymphocytes % 22.7 % (10-50); Mean Corpuscular HGB Conc 30.8 g/dL (31.8-35.4); Mean Corpuscular Volume 93.8 fl (81-99); Mean Platelet Volume 8.7 fl (7.4-10.4); Monocytes # 0.3 K/mm3 (0.1-1.0); Monocytes % 3.5 % (1.7-9.3); Neutrophils # 5.3 K/mm3 (1.8-7.8); Neutrophils % 71.6 % (37.0-80.0); Platelet Count 371 K/mm3 (142-424); Red Blood Count 4.85 M/mm3 (4.20-5.40); Red Cell Distribution Width 14.3 % (11.5-17.5); White Blood Count 7.3 K/mm3 (4.8-10.8)
[2021-06-05 19:25] LABS: Alanine Aminotransferase 17 U/L (12-78); Albumin Level 3.6 g/dl (3.5-5.0); Albumin/Globulin Ratio 1.3 (1.1-1.8); Alkaline Phosphatase 163 U/L (38-126); Anion Gap 13.2 mEq/L (5-15); Aspartate Amino Transferase 28 U/L (14-36); Bilirubin,Total 0.4 mg/dl (0.2-1.3); Blood Urea Nitrogen 16 mg/dl (7-17); Calcium 9.1 mg/dl (8.4-10.2); Carbon Dioxide 27 mmol/L (22.0-30.0); Chloride 102 mmol/L (98-107); Chol/HDL Ratio 4.3 (1-3.5); Cholesterol 170 mg/dl (140-200); Estimated Glomerular Filt Rate 43 ml/min (>60); GFR (African American) 52 ML/MIN (>60); Globulin 2.7 g/dL (1.3-3.2); Glucose 376 mg/dl (74-100); HDL Cholesterol 40 mg/dl (40-60); Potassium 5.2 mmoL/L (3.5-5.1); Sodium 137 mmol/L (136-145); Total Protein,Serum 6.3 g/dl (6.3-8.2); Triglycerides 218 mg/dl (30-150); VLDL Cholesterol 44 mg/dL (0-40)
[2021-06-05 19:37] LABS: Direct LDL Cholesterol 92.94 mg/dL (100-129)
[2021-06-05 19:43] LABS: T4 (Thyroxine) 10.4 ug/dl (5.53-11.0)
[2021-06-05 19:56] LABS: Thyroid Stimulating Hormone 1.54 uIU/mL (0.465-4.68)
== END ==
PROVIDERS: Visit Provider Nurse Practitioner Family
DX: E11.10 Type 2 diabetes mellitus with ketoacidosis without coma (principal); E78.5 Hyperlipidemia, unspecified; G47.33 Obstructive sleep apnea (adult) (pediatric); I10 Essential (primary) hypertension; I25.10 Atherosclerotic heart disease of native coronary artery without angina pectoris; K85.90 Acute pancreatitis without necrosis or infection, unspecified; N39.0 Urinary tract infection, site not specified; E55.9 Vitamin D deficiency, unspecified; Z79.4 Long term (current) use of insulin
CPT/HCPCS: 80053; 80061; 82306; 83036; 84436; 84443; 85025

== ENCOUNTER 2021-07-01 09:41 | Emergency (ER) | payer MEDICARE, MEDICAID, SELFPAY ==
[2021-07-01 10:23] VITALS: BP 145/83; PULSE 73; RESP 18; TEMP 36.6; O2SAT 98; BMI 32.9
--- NOTE | 2021-07-01 10:23 | XR_ITS ---
PROCEDURE: XR CHEST 2V CLINICAL HISTORY: cough COMPARISON: CR XR CHEST PORTABLE PICC PLAC from 12/29/2019 CR XR RIBS RT MIN 3V W CXR1V from 08/21/2020 CR XR CHEST PORTABLE from 05/17/2021 FINDINGS: The cardiomediastinal silhouette and pulmonary vascularity are within normal limits. The lungs are clear without infiltrates, suspicious nodules, or pleural effusions. Minimal upper thoracic curvature convex left. IMPRESSION: No acute findings. Dictated by: Car Barnhart MD 07/01/2021 10:42 Car Barnhart MD in OV 07/01/2021 10:42
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
[2021-07-01 11:24] VITALS: BP 145/83; PULSE 73; RESP 18; TEMP 36.6
== END 2021-07-01 11:25 | disposition home or self-care (01) ==
PROVIDERS: Emergency Provider Nurse Practitioner Family; PCP Nurse Practitioner Family
DX: J01.90 Acute sinusitis, unspecified (principal); J20.9 Acute bronchitis, unspecified; E11.69 Type 2 diabetes mellitus with other specified complication; T20.20XA Burn of second degree of head, face, and neck, unspecified site, initial encounter; I25.10 Atherosclerotic heart disease of native coronary artery without angina pectoris
CPT/HCPCS: 71046; 99202; G0463

== ENCOUNTER → 2021-10-02 18:10 | Outpatient (CLI) | payer MEDICARE, MEDICAID, SELFPAY ==
[2021-10-02 15:08] LABS: Cholesterol 171 mg/dl (140-200); Triglycerides 199 mg/dl (30-150); VLDL Cholesterol 40 mg/dL (0-40)
[2021-10-02 15:09] LABS: Chol/HDL Ratio 4.4 (1-3.5); HDL Cholesterol 39 mg/dl (40-60)
[2021-10-02 15:19] LABS: Direct LDL Cholesterol 93.07 mg/dL (100-129)
[2021-10-02 15:26] LABS: Free T4 (Free Thyroxine) 1.28 ng/dl (0.78-2.19)
[2021-10-02 15:40] LABS: Thyroid Stimulating Hormone 1.66 uIU/mL (0.465-4.68)
[2021-10-02 16:13] LABS: Hemoglobin A1C 9.3 % (4.0-6.0)
[2021-10-02 18:10] LABS: Amphetamine/Metha Screen,Urine Negative ng/ml (<1000); Barbiturates Screen,Urine Negative ng/ml (<200)
[2021-10-02 18:11] LABS: Benzodiazepines Screen,Urine Negative ng/ml (<200); Cannabinoid Screen,Urine Negative ng/ml (<50)
[2021-10-02 18:14] LABS: Cocaine Screen,Urine Negative ng/ml (<300)
[2021-10-02 18:15] LABS: Methadone Screen,Urine Negative ng/ml (<300); Opiate Screen,Urine Negative ng/ml (<300)
[2021-10-02 18:19] LABS: Phencyclidine Screen,Urine Negative ng/ml (<25)
[2021-10-02 18:34] LABS: Creatinine,Urine Random 118 mg/dL (Not Estab.)
[2021-10-02 23:14] LABS: Microalbumin > 1140.000 mg/L (0-16.7); Microalbumin/Creatinine Ratio 966.1
== END ==
PROVIDERS: Visit Provider Nurse Practitioner Family
DX: E10.65 Type 1 diabetes mellitus with hyperglycemia (principal); Z79.899 Other long term (current) drug therapy; Z79.4 Long term (current) use of insulin
CPT/HCPCS: 80061; 80305; 82043; 82570; 83036; 84439; 84443

== ENCOUNTER → 2021-11-04 12:50 | Outpatient (POV) | payer MEDICARE, MEDICAID, SELFPAY | PROVIDERS: Visit Provider Internal Medicine Nephrology | DX: Z00.00 Encounter for general adult medical examination without abnormal findings (principal) ==

== ENCOUNTER → 2021-12-17 13:03 | Outpatient (CLI) | payer MEDICARE, MEDICAID, SELFPAY ==
--- NOTE | 2021-12-17 13:11 | XR_ITS ---
FINAL REPORT CLINICAL HISTORY: lt shoulder pain FINDINGS: LEFT SHOULDER: Three views of the left shoulder were obtained. There is no acute fracture or dislocation. There is mild acromioclavicular joint degenerative change. There is no soft tissue abnormality. IMPRESSION: Degenerative change as above with no acute process. Reviewed, Interpreted and Dictated by Saroj Barajas III, MD Transcribed by Marilu King Authenticated by Saroj Barajas III, MD on 12/17/2021 03:19:40 PM [facility]
== END ==
PROVIDERS: Visit Provider Orthopaedic Surgery
DX: M25.512 Pain in left shoulder (principal)
CPT/HCPCS: 73030

== ENCOUNTER 2021-12-20 15:00 | Outpatient (RCR) | payer MEDICARE, MEDICAID, SELFPAY ==
--- NOTE | 2021-12-06 14:59 | HMH.OTOPEV ---
OT Inpatient Evaluation Rehab OT Outpatient Eval Start: 12/06/21 14:47 Freq: Status: Active Protocol: Document 12/06/21 14:48 CLARITA (Rec: 12/06/21 14:59 CLARITA [id number]) Electronically Signed By Chetna Maurer, OT 12/06/21 14:48 Outpatient Therapy Subjective History Subjective History 51 year old female referred to skilled OP OT services for L shld pain. Patient stated having pain in the left shoulder for over a month now after recieving the booster shot. Patient stated having pain in the cervical L side of neck with numbness and tingling down to all 5 finger tips. Chief Complaint Pain,Weakness,Decreased Speech And Language Tutor Strength Symptom Type Burning,Numbness,Tingling, Shooting Symptoms Relieved By Nothing Symptoms Aggravated By Physical Activity Prior Functional Limitations None Current Functional Limitations Reaching,Lifting,Recreation Activity Symptom Description Constant and Continuous Level of pain today (0-10) 9 Pain scale - at its best (0-10) 9 Pain scale - at its worst (0-10) 9 Shoulder/Elbow Eval Shoulder Objective Measurements Shoulder ROM Left Shoulder Abduction Active Range of 75 Motion (degrees) Shoulder Flexion Active Range of Motion 80 (degrees) Query Text: Shoulder External Rotation Active Range 40 of Motion (degrees) Shoulder Internal Rotation Active Range 25 of Motion (degrees) pain with active ROM shoulder exam left standard Shoulder MMT Shoulder Abduction Strength Grade 2+ Poor+ Shoulder Extension Strength Grade 2+ Poor+ Shoulder Flexion Strength Grade 2+ Poor+ Shoulder Horizontal Abduction Strength 2+ Poor+ Grade Shoulder Horizontal Adduction Strength 2+ Poor+ Grade Infraspinatus/Teres Minor Strength Grade 2+ Poor+ Shoulder External Rotation Strength 2+ Poor+ Grade Shoulder Internal Rotation Strength 2+ Poor+ Grade Shoulder Special Tests impingement sign present shoulder exam left standard Shoulder Empty Can (Supraspinatus) Test Positive Left Shoulder Godinez-Ambrose Impingement Positive Left Test Elbow Objective Measurements Wrist/Hand Eval Special Tests Wrist Phalen Test Positive Left Wrist Tinel Test
== END 2021-12-20 15:05 | disposition home or self-care (01) ==
LOC: OT 15:00
PROVIDERS: PCP Nurse Practitioner Family; Visit Provider Nurse Practitioner Family
DX: M25.512 Pain in left shoulder (principal)
CPT/HCPCS: 97010; 97014; 97110; 97140; 97165; G0283

== ENCOUNTER → 2022-01-22 13:18 | Outpatient (CLI) | payer MEDICARE, MEDICAID, SELFPAY ==
--- NOTE | 2022-01-22 13:27 | XR_ITS ---
FINAL REPORT CLINICAL HISTORY: WOUND/PAIN RT FOOT, GREAT TOE AREA FINDINGS: RIGHT FOOT Three weight-bearing views of the right foot demonstrate postoperative changes from amputation of the 2nd digit at the level of the proximal aspect of the 2nd proximal phalanx. There is hallux valgus deformity. There are mild degenerative changes. There is no definite bony erosion. The soft tissues are unremarkable. IMPRESSION: No definite bony erosion. Postoperative and degenerative change with no acute bony abnormality. Reviewed, Interpreted and Dictated by Saroj Barajas III, MD Transcribed by Maddy Baldwin Authenticated and [facility]
[2022-01-22 14:06] LABS: Basophils # 0.1 K/mm3 (0-0.2); Basophils % 0.6 % (0.1-2.0); Eosinophils # 0.1 K/mm3 (0.0-0.4); Eosinophils % 0.6 % (0.1-12.0); Hematocrit 42.1 % (37.0-47.0); Hemoglobin 13.8 g/dL (12.2-16.2); Lymphocytes # 2.6 K/mm3 (0.7-4.5); Lymphocytes % 17.6 % (10-50); Mean Corpuscular HGB Conc 32.7 g/dL (31.8-35.4); Mean Corpuscular Hemoglobin 28.6 pg (27.0-31.2); Mean Corpuscular Volume 87.4 fl (81-99); Mean Platelet Volume 8.2 fl (7.4-10.4); Monocytes # 0.5 K/mm3 (0.1-1.0); Monocytes % 3.1 % (1.7-9.3); Neutrophils # 11.4 K/mm3 (1.8-7.8); Neutrophils % 78.2 % (37.0-80.0); Platelet Count 342 K/mm3 (142-424); Red Blood Count 4.82 M/mm3 (4.20-5.40); Red Cell Distribution Width 14.2 % (11.5-17.5); White Blood Count 14.5 K/mm3 (4.8-10.8)
[2022-01-22 14:50] LABS: Erythrocyte Sedimentation Rate 72 mm/hr (0-30)
[2022-01-22 15:07] LABS: Hemoglobin A1C 8.5 % (4.0-6.0)
[2022-01-22 15:19] LABS: Chloride 101 mmol/L (98-107); Potassium 4.7 mmoL/L (3.5-5.1); Sodium 134 mmol/L (136-145)
[2022-01-22 15:22] LABS: Alanine Aminotransferase 78 U/L (12-78); Albumin Level 3.6 g/dl (3.5-5.0); Albumin/Globulin Ratio 1.6 (1.1-1.8); Alkaline Phosphatase 189 U/L (38-126); Anion Gap 10.7 mEq/L (5-15); Aspartate Amino Transferase 42 U/L (14-36); Bilirubin,Total 0.5 mg/dl (0.2-1.3); Blood Urea Nitrogen 46 mg/dl (7-17); Calcium 8.8 mg/dl (8.4-10.2); Carbon Dioxide 27 mmol/L (22.0-30.0); Estimated Glomerular Filt Rate 32 ml/min (>60); GFR (African American) 38 ML/MIN (>60); Globulin 2.2 g/dL (1.3-3.2); Glucose 380 mg/dl (74-100); Total Protein,Serum 5.8 g/dl (6.3-8.2)
[2022-01-22 15:29] LABS: C-Reactive Protein 0.5 mg/L (0-4)
== END ==
PROVIDERS: PCP Nurse Practitioner Family; Visit Provider Podiatrist
DX: E11.10 Type 2 diabetes mellitus with ketoacidosis without coma (principal); Z51.89 Encounter for other specified aftercare; N39.0 Urinary tract infection, site not specified; S81.801D Unspecified open wound, right lower leg, subsequent encounter; Z79.4 Long term (current) use of insulin
CPT/HCPCS: 36415; 73630; 80053; 83036; 85025; 85651; 86140

== ENCOUNTER → 2022-01-30 08:31 | Outpatient (CLI) | payer MEDICARE, MEDICAID, SELFPAY ==
--- NOTE | 2022-01-30 08:32 | US_ITS ---
FINAL REPORT CLINICAL HISTORY: ULCERS RT FOOT (TOP OF FOOT,TOES),DM,HTN,CAD,PRIOR LT BKA,EX SMOKER FINDINGS: ANKLE/BRACHIAL INDICES Ankle brachial indices was obtained. The right CHARLES is 1.07 which is normal. IMPRESSION: CHARLES on the right is within normal limits. Reviewed, Interpreted and Dictated by Saroj Barajas III, MD Transcribed by Francisca Chamorro Authenticated and [facility]
== END ==
PROVIDERS: PCP Nurse Practitioner Family; Visit Provider Nurse Practitioner Family
DX: E78.2 Mixed hyperlipidemia (principal); I10 Essential (primary) hypertension; I25.10 Atherosclerotic heart disease of native coronary artery without angina pectoris; I73.9 Peripheral vascular disease, unspecified; L97.519 Non-pressure chronic ulcer of other part of right foot with unspecified severity; N18.30 Chronic kidney disease, stage 3 unspecified; R60.0 Localized edema
CPT/HCPCS: 93923

== ENCOUNTER 2022-01-30 08:54 | Emergency (ER) | payer MEDICARE, MEDICAID, SELFPAY ==
[2022-01-30 08:54] VITALS: BP 112/62; PULSE 72; RESP 18; TEMP 36.7; O2SAT 100; BMI 32.9
[2022-01-30 09:10] VITALS: BP 112/62; PULSE 72; RESP 18; TEMP 36.7; O2SAT 100; BMI 32.8
--- NOTE | 2022-01-30 09:17 | XR_ITS ---
FINAL REPORT CLINICAL HISTORY: FALL, pt states that she fell on Thursday, and that the majority of her pain is around the fourth and fifth digits down to the carpals FINDINGS: RIGHT WRIST Three views demonstrate a nondisplaced fracture of the proximal 5th metacarpal. There is also a subtle lucency in the proximal 4th metacarpal, a nondisplaced fracture is not excluded. There is no dislocation. The visualized joint spaces are normally aligned. The soft tissues are unremarkable. IMPRESSION: Proximal 5th metacarpal fracture. Proximal 4th metacarpal fracture is not excluded. Reviewed, Interpreted and Dictated by Saroj Barajas III, MD Transcribed by Maddy Baldwin Authenticated and [facility]
--- NOTE | 2022-01-30 09:17 | XR_ITS ---
FINAL REPORT CLINICAL HISTORY: FALL, pt states that she fell on Thursday, and that the majority of her pain is around the fourth and fifth digits down to the carpals FINDINGS: RIGHT HAND Three views demonstrate a nondisplaced fracture of the proximal 5th metacarpal. There is also a subtle lucency in the proximal 4th metacarpal, a nondisplaced fracture is not excluded. There is no dislocation. The visualized joint spaces are normally aligned. The soft tissues are unremarkable. IMPRESSION: Proximal 5th metacarpal fracture. Proximal 4th metacarpal fracture is not excluded. Reviewed, Interpreted and Dictated by Saroj Barajas III, MD Transcribed by Maddy Baldwin Authenticated and [facility]
--- NOTE | 2022-01-30 09:37 | HMH.EDUTC ---
[facility] Disposition Clinical Impression: Wrist pain Qualifiers: Laterality: right Qualified Code(s): M25.531 - Pain in right wrist Metacarpal bone fracture Qualifiers: Encounter type: initial encounter Metacarpal bone: fifth Fracture type: closed Metacarpal location: unspecified portion of metacarpal Fracture alignment: nondisplaced Laterality: right Qualified Code(s): S62.306A - Unspecified fracture of fifth metacarpal bone, right hand, initial encounter for closed fracture Disposition: Home, Self-Care Condition on Discharge: Good Instructions: How To Perform RICE (Rest, Ice, Compress, Elevate), Ibuprofen Additional Instructions: *RICE, Rest the extremity, Ice 15-20 minutes 3-4 times daily, Compress- wear the geronimo wrap as discussed as much as possible to help reduce swelling and pain, Elevate the extremity when at rest *Geronimo wrap is for support and help control swelling, use it except in the shower. Be sure that is not to tight but not to loose either *Elevate when resting *Ibuprofen 600-800mg every 6-8 hours as needed for pain an inflammation. If need something more can take Tylenol in between doses of Ibuprofen to help Immediately follow up with your family doctor for new or worsening of symptoms, or no noticeable improvement over the next 3-5 days Call back to the [facility] later this evening for the official reading of your xray Follow up with Orthopedics if warranted Referrals: Francisco Greer APRN [Primary Care Provider] - As needed Toby Henry JR, MD [Physician] - (Call office for appointment) Time of Disposition: 10:07 Medical Decision Making - Mauri Inquiry Pt receiving controlled substance: No Mauri was queried for this patient: No Vital Signs: 01/30/22 08:54 01/30/22 09:10 01/30/22 10:07 Temperature 98.1 F 98.1 F 98.1 F Temperature Source Oral Oral Pulse Rate 72 Pulse Rate [Left Radial] 72 72 Respiratory Rate 18 18 18 Blood Pressure 112/62 Blood Pressure [Left Arm] 112/62 112/62 Blood Pressure Mean [Left Arm] 78 78 Blood Pressure Source [Left Arm] Automatic Cuff Automatic Cuff Blood Pressure Position [Left Arm] Sitting 02 Sat by Pulse Oximetry 100 100 Oxygen Delivery Method Room Air Room Air - Lab Data Lab results reviewed: Yes: I reviewed the patient's lab results. - Radiology Data #1 Image(s): Wrist Image Reviewed: Yes I have reviewed radiologist's interpretation IMPRESSION: Proximal 5th metacarpal fracture. Proximal 4th metacarpal fracture is not excluded. #2 Image(s): Hand Image Reviewed: Yes I have reviewed radiologist's interpretation IMPRESSION: Proximal 5th metacarpal fracture. Proximal 4th metacarpal fracture is not excluded. [facility] HPI - General Stated complaint: ao 01/27, rigth wrist pain Time Seen by Provider: 01/30/22 09:37 Mode of Arrival: Ambulatory Source of Information: Patient Limitations: No Limitations Description of Symptoms (Recalled from Triage Doc. by RN): PATIENT C/O INJURY TO RIGHT WRIST AND HAND AFTER FALLING 2 DAYS AGO HEENT Symptoms (Recalled from RN notes): No Resp Symptoms (Recalled from RN notes): No Skin Symptoms (Recalled from RN notes): No MS Symptoms (Recalled from RN notes): Yes Functional Status (Recalled from RN notes): WNL - History of Present Illness Provider Complaint: Patient states that she fell on Thursday and landed on her right hand States that ever since she has been having pain and swelling in her right hand and wrist area States that hurts when she moves it and bruised State that today it was still hurting so she came in to get it checked out - Related Data Home Medications Medication Instructions Recorded Confirmed Cholecalciferol (Vitamin D3) 1,250 mcg PO WEEKLY 05/16/21 01/27/22 [Dialyvite Vitamin D3 Max] Levocetirizine Dihydrochloride 5 mg PO DAILY 05/17/21 01/27/22 blood-glucose meter See Rx Instructions .ROUTE 01/14/22 01/27/22 .MEDSUPPLY #1 each venlafaxine 75 mg capsule,extended 75 mg PO DA
[2022-01-30 10:07] VITALS: BP 112/62; PULSE 72; RESP 18; TEMP 36.7; O2SAT 100
== END 2022-01-30 10:21 | disposition home or self-care (01) ==
LOC: ER 09:09 → UTC 09:10
PROVIDERS: Emergency Provider Nurse Practitioner; PCP Nurse Practitioner Family
DX: S62.306A Unspecified fracture of fifth metacarpal bone, right hand, initial encounter for closed fracture; Z96.41 Presence of insulin pump (external) (internal); Z79.899 Other long term (current) drug therapy; Z79.82 Long term (current) use of aspirin; Z79.4 Long term (current) use of insulin; Z88.2 Allergy status to sulfonamides; Z88.6 Allergy status to analgesic agent; I25.10 Atherosclerotic heart disease of native coronary artery without angina pectoris; E11.9 Type 2 diabetes mellitus without complications; E78.5 Hyperlipidemia, unspecified; K21.9 Gastro-esophageal reflux disease without esophagitis; I10 Essential (primary) hypertension; I25.2 Old myocardial infarction; G43.909 Migraine, unspecified, not intractable, without status migrainosus; D64.9 Anemia, unspecified; M19.90 Unspecified osteoarthritis, unspecified site
CPT/HCPCS: 73110; 73130; 93923; 99213; G0463

== ENCOUNTER → 2022-02-10 16:32 | Outpatient (CLI) | payer MEDICARE, MEDICAID, SELFPAY | PROVIDERS: Visit Provider Podiatrist | DX: Z51.89 Encounter for other specified aftercare (principal); M75.02 Adhesive capsulitis of left shoulder | CPT/HCPCS: 87070; 87077; 87186; 87205 ==

== ENCOUNTER → 2022-02-25 08:32 | Outpatient (CLI) | payer MEDICARE, MEDICAID, SELFPAY ==
--- NOTE | 2022-02-25 08:38 | XR_ITS ---
FINAL REPORT CLINICAL HISTORY: rt hand pain COMPARISON: January 30, 2022 FINDINGS: AP, lateral and oblique views of the right hand were obtained. A plaster cast obscures detail of examination. There is no acute fracture or dislocation. There has been interval healing of a fracture at the base of the 5th metacarpal. The joint spaces are preserved. The soft tissues are normal. IMPRESSION: Healing fracture of the base of the fifth metacarpal. Reviewed, Interpreted and Dictated by Abbi Burnett MD Transcribed by Silvia Pineda Authenticated and [facility]
== END ==
PROVIDERS: PCP Nurse Practitioner Family; Visit Provider Physician Assistant Surgical
DX: S62.306A Unspecified fracture of fifth metacarpal bone, right hand, initial encounter for closed fracture (principal)
CPT/HCPCS: 73130; 97763

== ENCOUNTER 2022-02-25 09:48 | Outpatient (RCR) | payer MEDICARE, MEDICAID, SELFPAY | END 2022-02-25 10:50 | disposition home or self-care (01) | LOC: OT 09:48 | PROVIDERS: Visit Provider Orthopaedic Surgery | DX: G56.02 Carpal tunnel syndrome, left upper limb (principal) | CPT/HCPCS: 97763 ==

== ENCOUNTER → 2022-02-28 09:19 | Outpatient (CLI) | payer MEDICARE, MEDICAID, SELFPAY ==
--- NOTE | 2022-02-28 09:22 | CT_ITS ---
FINAL REPORT CLINICAL HISTORY: diabetic foot infection, r/o osteomyelitis COMPARISON: Plain films dated January 22, 2022 FINDINGS: CT RIGHT FOOT WITHOUT CONTRAST Technique: Axial images through the right foot were performed by computed tomography. Sagittal and coronal reconstruction images were performed. This study was performed with techniques to keep radiation doses as low as reasonably achievable (ALARA). Individualized dose reduction techniques using automated exposure control or adjustment of mA and/or kV according to the patient's size were employed. There has been amputation of the 2nd toe at the base of the proximal phalanx. No fracture is identified. There is no bone destruction. No dislocation identified. There is hallux valgus deformity and multi joint degenerative disease. There is soft tissue edema the posterior ankle. There is no subcutaneous soft tissue air. There is mild soft tissue edema of the medial forefoot at the level of the 1st MTP joint. There is no loculated fluid collection. IMPRESSION: No bony destruction to suggest osteomyelitis. Nonspecific soft tissue edema of the medial forefoot. Reviewed, Interpreted and Dictated by Abbi Burnett MD Transcribed by Alfie Vega Authenticated and [facility]
[2022-02-28 10:26] LABS: Basophils # 0.1 K/mm3 (0-0.2); Basophils % 0.5 % (0.1-2.0); Eosinophils # 0.1 K/mm3 (0.0-0.4); Eosinophils % 0.7 % (0.1-12.0); Hematocrit 38.8 % (37.0-47.0); Hemoglobin 12.1 g/dL (12.2-16.2); Lymphocytes # 2.4 K/mm3 (0.7-4.5); Lymphocytes % 26.8 % (10-50); Mean Corpuscular HGB Conc 31.2 g/dL (31.8-35.4); Mean Corpuscular Hemoglobin 28.5 pg (27.0-31.2); Mean Corpuscular Volume 91.4 fl (81-99); Mean Platelet Volume 8.2 fl (7.4-10.4); Monocytes # 0.4 K/mm3 (0.1-1.0); Monocytes % 4.4 % (1.7-9.3); Neutrophils % 67.6 % (37.0-80.0); Platelet Count 298 K/mm3 (142-424); Red Blood Count 4.24 M/mm3 (4.20-5.40); Red Cell Distribution Width 14.9 % (11.5-17.5); White Blood Count 8.8 K/mm3 (4.8-10.8)
[2022-02-28 11:01] LABS: Alanine Aminotransferase 29 U/L (12-78); Albumin Level 3.1 g/dl (3.5-5.0); Albumin/Globulin Ratio 1.4 (1.1-1.8); Alkaline Phosphatase 134 U/L (38-126); Anion Gap 7.6 mEq/L (5-15); Aspartate Amino Transferase 27 U/L (14-36); Bilirubin,Total 0.4 mg/dl (0.2-1.3); Blood Urea Nitrogen 37 mg/dl (7-17); Calcium 8.4 mg/dl (8.4-10.2); Carbon Dioxide 26 mmol/L (22.0-30.0); Chloride 108 mmol/L (98-107); Estimated Glomerular Filt Rate 28 ml/min (>60); GFR (African American) 34 ML/MIN (>60); Globulin 2.2 g/dL (1.3-3.2); Glucose 316 mg/dl (74-100); Potassium 5.6 mmoL/L (3.5-5.1); Sodium 136 mmol/L (136-145); Total Protein,Serum 5.3 g/dl (6.3-8.2)
[2022-02-28 11:06] LABS: C-Reactive Protein 0.5 mg/L (0-4)
[2022-02-28 11:35] LABS: Erythrocyte Sedimentation Rate 33 mm/hr (0-30)
== END ==
PROVIDERS: PCP Nurse Practitioner Family; Visit Provider Podiatrist
DX: E11.628 Type 2 diabetes mellitus with other skin complications (principal); L08.9 Local infection of the skin and subcutaneous tissue, unspecified; S81.801A Unspecified open wound, right lower leg, initial encounter; Z51.89 Encounter for other specified aftercare; N39.0 Urinary tract infection, site not specified; Z79.4 Long term (current) use of insulin
CPT/HCPCS: 36415; 73700; 80053; 85025; 85651; 86140

== ENCOUNTER → 2022-03-07 09:59 | Outpatient (CLI) | payer MEDICARE, MEDICAID, SELFPAY ==
[2022-03-07 11:05] LABS: Anion Gap 10.1 mEq/L (5-15); Blood Urea Nitrogen 33 mg/dl (7-17); Calcium 8.1 mg/dl (8.4-10.2); Carbon Dioxide 23 mmol/L (22.0-30.0); Chloride 112 mmol/L (98-107); Estimated Glomerular Filt Rate 28 ml/min (>60); GFR (African American) 34 ML/MIN (>60); Glucose 359 mg/dl (74-100); Potassium 5.1 mmoL/L (3.5-5.1); Sodium 140 mmol/L (136-145)
[2022-03-07 13:58] LABS: Hemoglobin A1C 8.9 % (4.0-6.0)
== END ==
PROVIDERS: PCP Nurse Practitioner Family; Visit Provider Internal Medicine Cardiovascular Disease
DX: E78.5 Hyperlipidemia, unspecified (principal); I10 Essential (primary) hypertension; I25.10 Atherosclerotic heart disease of native coronary artery without angina pectoris; I73.9 Peripheral vascular disease, unspecified; N18.9 Chronic kidney disease, unspecified; R60.0 Localized edema; S81.801A Unspecified open wound, right lower leg, initial encounter; Z89.512 Acquired absence of left leg below knee; E11.10 Type 2 diabetes mellitus with ketoacidosis without coma
CPT/HCPCS: 36415; 80048; 83036

== ENCOUNTER → 2022-03-25 09:16 | Outpatient (CLI) | payer MEDICARE, MEDICAID, SELFPAY ==
--- NOTE | 2022-03-25 09:19 | XR_ITS ---
FINAL REPORT CLINICAL HISTORY: right hand pain FINDINGS: RIGHT HAND Three views of the right hand were obtained. There is an oblique fracture through the base of the proximal 5th metacarpal that is mildly displaced. The visualized joint spaces are normally aligned. There is some overlying soft tissue swelling. IMPRESSION: Mildly displaced oblique fracture at the base of the proximal 5th metacarpal. Reviewed, Interpreted and Dictated by Pro Guillory MD Transcribed by Silvia Pineda Authenticated and [facility][1]
== END ==
PROVIDERS: PCP Nurse Practitioner Family; Visit Provider Orthopaedic Surgery
DX: S62.91XA Unspecified fracture of right hand, initial encounter for closed fracture (principal)
CPT/HCPCS: 73130

== ENCOUNTER 2022-03-26 13:00 | Outpatient (RCR) | payer MEDICARE, MEDICAID, SELFPAY ==
--- NOTE | 2022-03-04 11:12 | HMH.OTOPEV ---
OT Inpatient Evaluation Rehab OT Outpatient Eval Start: 03/04/22 10:52 Freq: Status: Active Protocol: Document 03/04/22 10:56 RMARSHALL (Rec: 03/04/22 11:12 [facility] [id number]) Electronically Signed By Domenico Pineda OT 03/04/22 10:56 Outpatient Therapy Subjective History Subjective History Pt is 51 year old female who reports to therapy for initial evaluation to right small finger. Pt sustained a 5th metacarpal fracture to right hand on 01/27/22 after a fall. Pt spent two weeks in a splint and has been out of the splint for ~1 week now. Pt is right hand dominant. Pt presents with a decline in AROM and strength at right small finger. Pt also demosntrates with decreased sanitation associate strength in right hand. Pt will continue to be seen twice a week in order to address right small finger deficits. STG AROM MP Flex: 85 degrees PIP Flex: 95 degrees DIP Flex: 70 degrees LTG AROM MP Flex: 90 degrees PIP Flex: 100 degrees DIP Flex: 80 degrees Right hand sanitation associate strength ST lbs Right hand sanitation associate strength LT lbs Chief Complaint Pain,Stiff,Weakness,Decreased Insulation Inspector Strength Symptom Type Ache,Throb,Sharp,Dull Symptoms Relieved By Rest/Positioning Symptoms Aggravated By Physical Activity,Lifting Prior Functional Limitations None Current Functional Limitations Reaching,Lifting,Housework, Sleeping,Recreation Activity Symptom Description Intermittent,Activity Dependent Level of pain today (0-10) 5 Pain scale - at its best (0-10) 0 Pain scale - at its worst (0-10) 10 Wrist/Hand Eval Finger Range of Motion Right Little Finger Finger Metacarpophalangeal Flexion 75 degrees Active Range of Motion (degrees) Finger Metacarpophalangeal Extension 0 degrees Active Range of Motion (degrees) Finger Proximal Interphalangeal Flexion 85 degrees Active Ra
== END 2022-03-26 14:00 | disposition home or self-care (01) ==
LOC: OT 13:00
PROVIDERS: PCP Nurse Practitioner Family; Visit Provider Orthopaedic Surgery
DX: S62.396D Other fracture of fifth metacarpal bone, right hand, subsequent encounter for fracture with routine healing (principal)
CPT/HCPCS: 97010; 97014; 97018; 97110; 97140; 97166; G0283

== ENCOUNTER → 2022-04-17 13:49 | Outpatient (CLI) | payer MEDICARE, MEDICAID, SELFPAY ==
[2022-04-17 15:09] VITALS: BMI 34.7
== END ==
PROVIDERS: PCP Nurse Practitioner Family; Visit Provider Nurse Practitioner Family
DX: Z71.3 Dietary counseling and surveillance (principal); E11.9 Type 2 diabetes mellitus without complications
CPT/HCPCS: 97802

== ENCOUNTER → 2022-05-27 10:43 | Outpatient (CLI) | payer MEDICARE, MEDICAID, SELFPAY | PROVIDERS: Visit Provider Nurse Practitioner Family | DX: E11.621 Type 2 diabetes mellitus with foot ulcer (principal); L97.519 Non-pressure chronic ulcer of other part of right foot with unspecified severity; Z79.4 Long term (current) use of insulin | CPT/HCPCS: 87070; 87077; 87186; 87205 ==

== ENCOUNTER → 2022-05-28 09:07 | Outpatient (CLI) | payer MEDICARE, MEDICAID, SELFPAY ==
--- NOTE | 2022-05-28 09:09 | CA_ITS ---
FINAL REPORT TECHNIQUE: Color Doppler, duplex Doppler and compression sonography of the right lower extremity venous system was performed. CLINICAL HISTORY: edema RLE, Lt BKA, DM, exsmoker FINDINGS: There is no evidence of deep venous thrombosis from the level of the groin to the calf. The veins are patent and compressible. IMPRESSION: No evidence of deep venous thrombosis right lower extremity. Reviewed, Interpreted and Dictated by Saroj Barajas III, MD Transcribed by Francisca Chamorro Authenticated and . [facility]
== END ==
PROVIDERS: PCP Nurse Practitioner Family; Visit Provider Nurse Practitioner
DX: R60.0 Localized edema (principal)
CPT/HCPCS: 93971

== ENCOUNTER → 2022-07-18 14:04 | Outpatient (CLI) | payer MEDICARE, MEDICAID, SELFPAY ==
[2022-07-18 18:15] LABS: Benzodiazepines Screen,Urine Negative ng/ml (<200)
[2022-07-18 18:16] LABS: Amphetamine/Metha Screen,Urine Negative ng/ml (<1000); Barbiturates Screen,Urine Negative ng/ml (<200)
[2022-07-18 18:17] LABS: Cannabinoid Screen,Urine Negative ng/ml (<50); Methadone Screen,Urine Negative ng/ml (<300)
[2022-07-18 18:18] LABS: Cocaine Screen,Urine Negative ng/ml (<300)
[2022-07-18 18:19] LABS: Opiate Screen,Urine Negative ng/ml (<300); Phencyclidine Screen,Urine Negative ng/ml (<25)
[2022-07-18 19:48] LABS: Creatinine,Urine Random 39 mg/dL (Not Estab.)
== END ==
PROVIDERS: PCP Nurse Practitioner Family; Visit Provider Nurse Practitioner Family
DX: Z79.899 Other long term (current) drug therapy (principal)
CPT/HCPCS: 80305; 82043; 82570

== ENCOUNTER 2022-08-06 15:59 | Inpatient (IN) | payer MEDICARE, MEDICAID, SELFPAY ==
[2022-08-06] VITALS (10 sets, daily range): BP systolic 105–166; BP diastolic 46–87; PULSE 92–99; RESP 18–20; TEMP 36.8–37.1; O2SAT 94–99; BMI 37.1; BMI 34.4
--- NOTE | 2022-08-06 16:12 | EXP.UTC ---
Discharge Plan Disposition Patient Disposition: Admitted As Inpatient Condition: Good Clinical Impressions Clinical Impression: Diabetic infection of right foot Discharge ED Provider: Nichol Zacarias [facility] [place] HPI General Chief complaint: PAIN Stated complaint: sore throat, V/D, wound on RT foot Time Seen by Provider: 08/06/22 16:10 History of Present Illness Provider Complaint: She is here with fever and malaise. She has a diabetic ulcer on her right foot that she states is getting worse. She is followed by Dr. Shipley. Related Data Home Medications Medication Instructions Recorded Confirmed isosorbide mononitrate 60 mg 60 mg PO DAILY Heart disease 08/06/22 08/07/22 tablet,extended release 24 hr lisinopril 10 mg tablet 10 mg PO DAILY High blood pressure 08/06/22 08/07/22 tizanidine 4 mg tablet 4 mg PO HS Muscle spasms 08/06/22 08/07/22 venlafaxine 150 mg 150 mg PO DAILY mood 08/06/22 08/07/22 capsule,extended release 24 hr (Effexor XR) insulin pump cart,cont inf,BT 08/07/22 08/07/22 (Omnipod Dash Pods (Gen 4) subcutaneous cartridge) rimegepant 75 mg disintegrating 75 mg PO DIRECTED PRN Headache 08/07/22 08/07/22 tablet (Nurtec ODT) Previous Rx's Medication Instructions Recorded aspirin 81 mg tablet,delayed 81 mg PO DAILY antiplatelet #90 10/05/20 release tabs atorvastatin 40 mg tablet 40 mg PO HS Cholesterol #90 tabs 11/25/21 pantoprazole 40 mg tablet,delayed 40 mg PO DAILY GERD #90 tabs 11/25/21 release gabapentin 600 mg tablet 600 mg PO TID pain #90 tabs 07/18/22 carvedilol 6.25 mg tablet 6.25 mg PO BID htn #180 tabs 07/24/22 Allergies Allergy/AdvReac Type Severity Reaction Status Date / Time Sulfa (Sulfonamide Allergy Unknown Verified 08/06/22 18:11 Antibiotics) [SULFA (SULFONAMIDE ANTIBIOTICS)] acetaminophen [From Tylox] Allergy Verified 08/06/22 18:11 oxycodone [From Tylox] Allergy Verified 08/06/22 18:11 [facility] Disclaimer: The information contained in this section may have been updated after the patient was seen, as this information can be updated by other users. Medical History Abnormal cardiovascular stress test Amputation of left lower extremity below knee Amputation toe Atypical angina Chronic kidney disease Edema of right lower extremity Edentulism Encounter for pre-operative cardiovascular clearance GERD (gastroesophageal reflux disease) History of left below knee amputation IDDM (insulin dependent diabetes mellitus) SHAYLA (obstructive sleep apnea) Surgical History History of arthroplasty of left hip History of arthroplasty of right knee History of carpal tunnel release History of esophagogastroduodenoscopy (EGD) History of hip surgery History of tonsillectomy Family History Mother Coronary artery disease Father Coronary artery disease Sister Coronary artery disease Social History Smoking Status: Current every day smoker tobacco type: cigarettes packs per day: 1 pack-years: 20 quit status: considering quitting second hand exposure: Yes alcohol intake: never substance use type: denies use current occupational status: unemployed and disabled Travel in the last 8 weeks: None household members: friend(s) housing: house marital status: single number of children: 1 education level: high school diet: diabetic caffeine: Yes special elslie needs: No do you feel safe at home: Yes ROS Obtained: Yes All systems reviewed & no additional complaints except as documented Constitutional Constitutional: Reports chills and Reports fever(s) Eyes Eyes: Denies eye discharge ENT Ears, Nose, Mouth, and Throat: Reports as per HPI Cardiovascular Cardiovascular: Denies chest pain Respiratory Respiratory: Denies
[2022-08-06 16:45] LABS: UTC Strep Screen (Rapid) Negative (Negative)
[2022-08-06 16:46] LABS: UTC Influenza A Antigen Negative (Negative); UTC Influenza B Antigen Negative (Negative)
--- NOTE | 2022-08-06 16:56 | PC.NURSE ---
Called report to radha
--- NOTE | 2022-08-06 18:07 | HMH.EDGENADL ---
Discharge Plan Disposition Patient Disposition: Admitted As Inpatient Condition: Good Clinical Impressions Clinical Impression: Diabetic infection of right foot Discharge ED Provider: Nichol Zacarias General Adult HPI General Chief complaint: PAIN Stated complaint: sore throat, V/D, wound on RT foot Time Seen by Provider: 08/06/22 16:10 Mode of Arrival: Ambulatory Source of Information: Patient Description of Symptoms (Recalled from ER Triage Doc. by RN): diarrhea, vomiting, ear ache, and open wound on right foot. Was seen at foot doctor for the last 6 months and not getting better. History of Present Illness HPI narrative: This patient is a 52-year-old female presented to the emergency department for evaluation of worsening wounds on her right foot. Patient is a known diabetic with history of left BKA and history of chronic right foot wounds who follows with podiatry. She states that the wounds have worsened, and she is also developed chills, nausea, diarrhea, and fatigue over the last several days. She also complains of an earache. Given this, she decided to come in for evaluation. She initially went to urgent treatment center, where she was sent here for further evaluation and management. Related Data Home Medications Medication Instructions Recorded Confirmed cholecalciferol (vitamin D3) 1,250 1,250 mcg PO WEEKLY Supplement 05/16/21 07/18/22 mcg (50,000 unit) tablet levocetirizine 5 mg tablet 5 mg PO DAILY Allergy symptoms 05/17/21 07/18/22 blood-glucose meter (OneTouch #1 ea 01/14/22 07/18/22 Verio Flex Meter) isosorbide mononitrate 60 mg 60 mg PO DAILY . 08/06/22 08/06/22 tablet,extended release 24 hr lisinopril 10 mg tablet 10 mg PO DAILY bp 08/06/22 08/06/22 tizanidine 4 mg tablet See Rx Instructions .Route 08/06/22 08/06/22 .COMPLEX Pain venlafaxine 150 mg 150 mg PO DAILY mood 08/06/22 08/06/22 capsule,extended release 24 hr (Effexor XR) Previous Rx's Medication Instructions Recorded aspirin 81 mg tablet,delayed 81 mg PO DAILY antiplatelet #90 10/05/20 release tabs pen needle, diabetic 32 gauge x #100 ea 05/27/2112/16 (Comfort EZ Pen Alsip) blood sugar diagnostic (Blood #50 ea 09/27/21 Glucose Test strips) lancets 30 gauge (Droplet Lancets) #100 ea 09/27/21 atorvastatin 40 mg tablet 40 mg PO HS Cholesterol #90 tabs 11/25/21 pantoprazole 40 mg tablet,delayed 40 mg PO DAILY GERD #90 tabs 11/25/21 release insulin lispro 100 unit/mL See Rx Instructions .Route 05/27/22 subcutaneous solution .COMPLEX #10 mL tedizolid 200 mg tablet (Sivextro) 200 mg PO DAILY Diabetic foot 06/02/22 wound 6 days #6 tabs blood sugar diagnostic (OneTouch #100 strips 06/30/22 Verio test strips) gabapentin 600 mg tablet 600 mg PO TID pain #90 tabs 07/18/22 rimegepant 75 mg disintegrating See Rx Instructions .Route 07/18/22 tablet (Nurtec ODT) .COMPLEX #8 tabs carvedilol 6.25 mg tablet 6.25 mg PO BID htn #180 tabs 07/24/22 insulin lispro 100 unit/mL See Rx Instructions .Route 07/24/22 subcutaneous solution .COMPLEX #10 mL Allergies Allergy/AdvReac Type Severity Reaction Status Date / Time Sulfa (Sulfonamide Allergy Unknown Verified 08/06/22 18:11 Antibiotics) [SULFA (SULFONAMIDE ANTIBIOTICS)] acetaminophen [From Tylox] Allergy Verified 08/06/22 18:11 oxycodone [From Tylox] Allergy Verified 08/06/22 18:11 [facility] Disclaimer: The information contained in this section may have been updated after the patient was seen, as this information can be updated by other users. Medical History Abnormal cardiovascular stress test Amputation of left lower extremity below knee Amputation toe Atypical angina Edema of right lower extremity Encounter for pre-operative cardiovascular clearance SHAYLA (obstructive sleep apnea) Surgical History History of arthroplasty of left hip
[2022-08-06 18:32] LABS: Basophils # 0.1 K/mm3 (0-0.2); Basophils % 0.3 % (0.1-2.0); Chloride 104 mmol/L (98-107); Eosinophils # 0.1 K/mm3 (0.0-0.4); Eosinophils % 0.7 % (0.1-12.0); Hematocrit 35.8 % (37.0-47.0); Hemoglobin 11.6 g/dL (12.2-16.2); Lymphocytes # 1.8 K/mm3 (0.7-4.5); Lymphocytes % 10.2 % (10-50); Mean Corpuscular HGB Conc 32.4 g/dL (31.8-35.4); Mean Corpuscular Hemoglobin 27.3 pg (27.0-31.2); Mean Corpuscular Volume 84.5 fl (81-99); Mean Platelet Volume 9.2 fl (7.4-10.4); Monocytes # 0.7 K/mm3 (0.1-1.0); Neutrophils % 84.8 % (37.0-80.0); Platelet Count 413 K/mm3 (142-424); Red Blood Count 4.24 M/mm3 (4.20-5.40); Red Cell Distribution Width 13.9 % (11.5-17.5); Sodium 134 mmol/L (136-145); White Blood Count 17.7 K/mm3 (4.8-10.8)
[2022-08-06 18:33] LABS: Potassium 4.6 mmoL/L (3.5-5.1)
[2022-08-06 18:34] LABS: MANUAL DIFFERENTIAL MANUAL DIFFERENTIAL (MANUAL DIFF)
[2022-08-06 18:36] LABS: Alanine Aminotransferase 17 U/L (12-78); Anion Gap 16.6 mEq/L (5-15); Aspartate Amino Transferase 20 U/L (14-36); Bilirubin,Unconjugated 0.2 mg/dL (0.0-1.1); Blood Urea Nitrogen 40 mg/dl (7-17); Calcium 8.3 mg/dl (8.4-10.2); Carbon Dioxide 18 mmol/L (22.0-30.0); Creatinine Clearance Estimated 36 mL/min (50-200); Estimated Glomerular Filt Rate 16 ml/min (>60); GFR (African American) 20 ML/MIN (>60); Glucose 268 mg/dl (74-100)
[2022-08-06 18:37] LABS: Albumin Level 3.6 g/dl (3.5-5.0); Alkaline Phosphatase 173 U/L (38-126); Bilirubin,Direct 0.4 mg/dl (0.0-0.4); Bilirubin,Indirect 0.2 mg/dL (0.0-0.9); Bilirubin,Total 0.6 mg/dl (0.2-1.3)
[2022-08-06 18:37] LABS: Lactic Acid 0.9 mmol/L (0.7-2.1)
--- NOTE | 2022-08-06 18:39 | XR_ITS ---
PROCEDURE INFORMATION: Exam: XR Right Foot Exam date and time: 08/06/2022 7:56 PM Age: 52 years old Clinical indication: Pain; Foot; Right; Additional info: Infected diabetic foot wound TECHNIQUE: Imaging protocol: Radiologic exam of the Right foot. Views: 3 or more views. COMPARISON: CT FOOT RT WO CON 02/28/2022 9:37 AM FINDINGS: Bones/joints: There is cortical erosion of the lateral margin of the head of the 1st metatarsal. There is severe lateral deviation of the 1st distal phalanx and mild lateral deviation of the 1st proximal phalanx. There has been prior amputation of the 2nd phalanges. No acute fracture or arthritic change seen. Soft tissues: Soft tissue ulcer is noted at the lateral aspect of the forefoot adjacent to the head of the 1st metatarsal. Diffuse soft tissue swelling of the great toe is noted. IMPRESSION: Soft tissue ulcer of the medial forefoot with underlying partial cortical erosion of the 1st metatarsal head concerning for osteomyelitis
[2022-08-06 18:41] LABS: C-Reactive Protein 169.8 mg/L (0-4)
--- NOTE | 2022-08-06 18:44 | PC.NURSE ---
called superintendent warehouse for admission
[2022-08-06 19:03] LABS: Lymphocytes % 11 % (10-50); Neutrophils % 89 % (42-76); Platelet Estimate Normal; RBC Morphology Normal; Total Cells Counted 100
[2022-08-06 19:14] LABS: Erythrocyte Sedimentation Rate 116 mm/hr (0-30)
[2022-08-06 19:32] LABS: Coronavirus 19, PCR Not Detected (NotDetected); Influenza A, PCR Not Detected (NotDetected); Influenza B, PCR Not Detected (NotDetected)
--- NOTE | 2022-08-06 19:41 | PC.NURSE ---
Radiology notified of foot XR
--- NOTE | 2022-08-06 19:42 | PC.NURSE ---
Roger Grant is at bedside (hospitalist)
--- NOTE | 2022-08-06 19:42 | PC.NURSE ---
Respiratory notified of ABG request by Roger
--- NOTE | 2022-08-06 19:44 | PC.NURSE ---
RAD At BS
[2022-08-06 19:56] LABS: ABG Base Excess -8.5 mmol/L (-2.4-2.3); ABG HCO3 16.8 mmhg (22.0-26.0); ABG Oxygen Saturation 93 % (90-100); ABG PCO2 29.8 mmhg (35.0-45.0); ABG PH 7.37 mmol/L (7.35-7.45); ABG PO2 62.3 mmhg (80-100); ABG TCO2 17.7 mmhg (23-27)
[2022-08-06 19:57] LABS: Allen's Test Acceptable; Oxygen 21 %; Source Left Radial
--- NOTE | 2022-08-06 20:07 | PC.NURSE ---
pt lying in bed nothing needed at this time
--- NOTE | 2022-08-06 21:00 | PC.NURSE ---
pt arrived to the floor via wheelchair at this time
--- NOTE | 2022-08-06 21:03 | EXP.HP ---
History of Present Illness *Admission Date: 08/06/22 *Reason for visit:: Right Foot Pain, Diarrhea, Vomiting, Earache *History of present illness: Ms. Burkett is a 52-year-old female with a past medical history of DM, Diabetic Neuropathies, CKD, h/o Left Below Knee Amputation, CKD, SHAYLA does not wear home CPAP. She presents to [facility] due to worsening foot pain and appearance of the right foot wound x 1 month associated with occassional chills and body aches and diarrhea, vomiting and earache x 1 week. The patient was seen in the ER prior to her admission, she reports that she follows with local Podiatry who has been following, she reports that over the last month that the foot has became more reddened despite dressing changes, she also reports fatigue, chills and body aches and recent diarrhea. In the ER the patient underwent a CT of the foot without contrast that showed soft tissue ulceration of the medial forefoot with underlying partial cortical erosion of the 1st metatarsal head concerning for Osteomyelitis. CBC showed a WBC of 17.1, Creatinine was elevated at 3.00, CRP was elevated at 169.8, ABG showed a pH of 7.37, HCO3 16.8, Anion Gap of 16.6. The patient will be admitted with initial impression: Sepsis, Osteomyelitis, High Anion Gap Metabolic Acidosis and Acute on Chronic Renal Failure The patient will be started on broad spectrum antibiotics, she reports a h/o MRSA and Staph skin infections, cultures will be drawn, Podiatry will be consulted to see the patient, She will be given iv fluids and Bicarbonate. The plan of care was discussed with the patient in length and detail prior to admission. She verbalized understanding and agreement with the plan of care. [facility] Disclaimer: The information contained in this section may have been updated after the patient was seen, as this information can be updated by other users. Medical History Abnormal cardiovascular stress test Amputation of left lower extremity below knee Amputation toe Atypical angina Edema of right lower extremity Encounter for pre-operative cardiovascular clearance SHAYLA (obstructive sleep apnea) Surgical History History of arthroplasty of left hip History of arthroplasty of right knee History of carpal tunnel release History of tonsillectomy Family History Mother Coronary artery disease Father Coronary artery disease Sister Coronary artery disease Social History Smoking Status: Never smoker second hand exposure: Yes alcohol intake: never substance use type: denies use current occupational status: unemployed and disabled Travel in the last 8 weeks: None household members: friend(s) housing: house caffeine: Yes Review of Systems Review of Systems Review of systems:: pertinent systems reviewed and negative unless documented below Constitutional Constitutional: Reports system reviewed and no additional complaints, except as documented Eyes Eyes: Reports system reviewed and no additional complaints, except as documented ENT Ears, Nose, Mouth, and Throat: Reports otalgia *Cardiovascular Cardiovascular: Reports system reviewed and no additional complaints, except as documented *Respiratory Respiratory: Reports system reviewed and no additional complaints, except as documented *Gastrointestinal Gastrointestinal: Reports diarrhea *Genitourinary Genitourinary: Reports system reviewed and no additional complaints, except as documented *Musculoskeletal Musculoskeletal: Reports tingling Comments: Generalized body aches, worsening redness right foot Integumentary/Breasts Comments: Redness, bilateral blisters right foot *Neurologic Neurologic: Reports tingling Psychiatric Psychiatric: Reports system reviewed
[2022-08-07] VITALS (19 sets, daily range): BP systolic 101–159; BP diastolic 54–87; PULSE 72–96; RESP 15–18; TEMP 36.6–37.7; O2SAT 92–98; BMI 34.9
--- NOTE | 2022-08-07 02:35 | PC.NURSE ---
ryann germain called regarding vte prophylaxis, noted in h&p stated to start heparin but has not been initiated yet.
--- NOTE | 2022-08-07 04:54 | PC.NURSE ---
pt admitted this shift with right foot ulcer, sepsis, pt is alert and oriented x4, h/o left bka, no acute distress, v/s stable, iv was given and antibiotics started. see wound pics, dressing applied to wound to cover for now, pt with h/o neuropathy, no other issues or concerns at this time.
--- NOTE | 2022-08-07 06:43 | CT_ITS ---
FINAL REPORT TECHNIQUE: Thin section axial CT images with coronal and sagittal reformats were performed. This study was performed with techniques to keep radiation doses as low as reasonably achievable (ALARA). Individualized dose reduction techniques using automated exposure control or adjustment of mA and/or kV according to the patient''s size were employed. CLINICAL HISTORY: Osteomyelitis, ulcer rt foot FINDINGS: CT RIGHT FOOT WITHOUT CONTRAST There is bony destruction of the medial and plantar 1st metatarsal head which is most likely related to osteomyelitis. There is minimal gas in the adjacent soft tissues which probably reflects communication with an open wound. There is soft tissue swelling compatible with cellulitis without a dominant fluid collection. Remaining osseous structures are unremarkable. IMPRESSION: Features compatible with osteomyelitis of the 1st metatarsal head with adjacent cellulitis and open wound. Reviewed, Interpreted and Dictated by Giovanni Navarro MD Transcribed by Maddy Baldwin Authenticated and . [facility]
--- NOTE | 2022-08-07 08:07 | EXP.ORTH.CON ---
Documented by User: Annette CorbettAVELINO 08/07/22 10:41 History of Present Illness *Admission Date: 08/06/22 *History of present illness: Patient is a 52-year-old female known to podiatry, with a past medical history of DM, Diabetic Neuropathies. Admitted with initial impression: Sepsis, Osteomyelitis, High Anion Gap Metabolic Acidosis and Acute on Chronic Renal Failure. Podiatry was consulted to see the patient, for right foot osteomyelitis, treatment recommendations. Patient lying in bed, alert and oriented. No acute distress noted. Right foot x-ray, right foot ct and labs results discussed with patient. Surgical consent obtained for right transmetatarsal amputation at noon. Keep NPO. No bedside wound debridement. Patient verbalized understanding and agreed with treatment plan. [facility] Disclaimer: The information contained in this section may have been updated after the patient was seen, as this information can be updated by other users. Medical History (Updated 08/07/22 @ 11:53 by Isha Shipley DPM) Abnormal cardiovascular stress test Amputation of left lower extremity below knee Amputation toe Atypical angina Chronic kidney disease Edema of right lower extremity Edentulism Encounter for pre-operative cardiovascular clearance GERD (gastroesophageal reflux disease) History of left below knee amputation IDDM (insulin dependent diabetes mellitus) SHAYLA (obstructive sleep apnea) Surgical History History of arthroplasty of left hip History of arthroplasty of right knee History of carpal tunnel release History of esophagogastroduodenoscopy (EGD) History of hip surgery History of tonsillectomy Family History Mother Coronary artery disease Father Coronary artery disease Sister Coronary artery disease Social History Smoking Status: Current every day smoker tobacco type: cigarettes packs per day: 1 pack-years: 20 quit status: considering quitting second hand exposure: Yes alcohol intake: never substance use type: denies use current occupational status: unemployed and disabled Travel in the last 8 weeks: None household members: friend(s) housing: house marital status: single number of children: 1 education level: high school diet: diabetic caffeine: Yes special leslie needs: No do you feel safe at home: Yes Review of Systems *Musculoskeletal Musculoskeletal: Reports tingling *Neurologic Neurologic: Reports tingling Meds Home Medications and Allergies Home Medications Medication Instructions Recorded Confirmed Type aspirin 81 mg tablet,delayed 81 mg PO DAILY antiplatelet #90 10/05/20 08/07/22 Rx release tabs atorvastatin 40 mg tablet 40 mg PO HS Cholesterol #90 tabs 11/25/21 08/07/22 Rx pantoprazole 40 mg tablet,delayed 40 mg PO DAILY GERD #90 tabs 11/25/21 08/07/22 Rx release gabapentin 600 mg tablet 600 mg PO TID pain #90 tabs 07/18/22 08/07/22 Rx carvedilol 6.25 mg tablet 6.25 mg PO BID htn #180 tabs 07/24/22 08/07/22 Rx isosorbide mononitrate 60 mg 60 mg PO DAILY Heart disease 08/06/22 08/07/22 History tablet,extended release 24 hr lisinopril 10 mg tablet 10 mg PO DAILY High blood pressure 08/06/22 08/07/22 History tizanidine 4 mg tablet 4 mg PO HS Muscle spasms 08/06/22 08/07/22 History venlafaxine 150 mg 150 mg PO DAILY mood 08/06/22 08/07/22 History capsule,extended release 24 hr (Effexor XR) insulin pump cart,cont inf,BT 08/07/22 08/07/22 History (Omnipod Dash Pods (Gen 4) subcutaneous cartridge) rimegepant 75 mg disintegrating 75 mg PO DIRECTED PRN Headache 08/07/22 08/07/22 History tablet (Nurtec ODT) New Prescriptions to Start Prescriptions: Allergies Allergy/AdvReac Type Severity Reaction Status Date / Time Sulfa (Sulfonamide Allergy Unknown Veri
[2022-08-07 08:28] LABS: Basophils # 0.1 K/mm3 (0-0.2); Basophils % 0.4 % (0.1-2.0); Eosinophils # 0.2 K/mm3 (0.0-0.4); Hematocrit 30.6 % (37.0-47.0); Lymphocytes # 1.7 K/mm3 (0.7-4.5); Lymphocytes % 11.4 % (10-50); Mean Corpuscular HGB Conc 33.2 g/dL (31.8-35.4); Mean Corpuscular Volume 84.2 fl (81-99); Mean Platelet Volume 8.6 fl (7.4-10.4); Monocytes # 0.8 K/mm3 (0.1-1.0); Monocytes % 5.6 % (1.7-9.3); Neutrophils # 11.9 K/mm3 (1.8-7.8); Neutrophils % 81.6 % (37.0-80.0); Platelet Count 377 K/mm3 (142-424); Red Blood Count 3.63 M/mm3 (4.20-5.40); Red Cell Distribution Width 13.9 % (11.5-17.5); White Blood Count 14.6 K/mm3 (4.8-10.8)
--- NOTE | 2022-08-07 08:35 | ECG_ITS ---
APPROVED REPORT Exam: Resting ECG HR:94 bpm ECG Measurements Heart Rate [address] 146 P 51 QRSd 89 QRS 20 QT 318 T 33 QTc 370 Conclusion SINUS RHYTHM NORMAL ECG UNCONFIRMED REPORT Electronically signed by : Wally Teran MD 08/08/2022 21:18:06
[2022-08-07 08:41] LABS: Chloride 109 mmol/L (98-107); Potassium 3.8 mmoL/L (3.5-5.1); Sodium 135 mmol/L (136-145)
[2022-08-07 08:43] LABS: Alanine Aminotransferase 13 U/L (12-78); Aspartate Amino Transferase 18 U/L (14-36); Blood Urea Nitrogen 35 mg/dl (7-17); Creatinine Clearance Estimated 35 mL/min (50-200); Estimated Glomerular Filt Rate 17 ml/min (>60); GFR (African American) 21 ML/MIN (>60)
[2022-08-07 08:44] LABS: Alkaline Phosphatase 132 U/L (38-126); Anion Gap 12.8 mEq/L (5-15); Bilirubin,Total 0.4 mg/dl (0.2-1.3); Calcium 7.9 mg/dl (8.4-10.2); Carbon Dioxide 17 mmol/L (22.0-30.0); Glucose 152 mg/dl (74-100)
--- NOTE | 2022-08-07 08:44 | EXP.PHA.CONS ---
Pharmacy Consult Date: 08/07/22 Time: 08:44 Referring provider: DR VINCENZO OSHEA Reason for Consult:: VANCOMYCIN DOSING CONSULT Allergies Allergy/AdvReac Type Severity Reaction Status Date / Time Sulfa (Sulfonamide Allergy Unknown Verified 08/06/22 18:11 Antibiotics) [SULFA (SULFONAMIDE ANTIBIOTICS)] acetaminophen [From Tylox] Allergy Verified 08/06/22 18:11 oxycodone [From Tylox] Allergy Verified 08/06/22 18:11 Home Medications Medication Instructions Recorded Confirmed Type aspirin 81 mg tablet,delayed 81 mg PO DAILY antiplatelet #90 10/05/20 08/07/22 Rx release tabs atorvastatin 40 mg tablet 40 mg PO HS Cholesterol #90 tabs 11/25/21 08/07/22 Rx pantoprazole 40 mg tablet,delayed 40 mg PO DAILY GERD #90 tabs 11/25/21 08/07/22 Rx release gabapentin 600 mg tablet 600 mg PO TID pain #90 tabs 07/18/22 08/07/22 Rx carvedilol 6.25 mg tablet 6.25 mg PO BID htn #180 tabs 07/24/22 08/07/22 Rx isosorbide mononitrate 60 mg 60 mg PO DAILY Heart disease 08/06/22 08/07/22 History tablet,extended release 24 hr lisinopril 10 mg tablet 10 mg PO DAILY High blood pressure 08/06/22 08/07/22 History tizanidine 4 mg tablet 4 mg PO HS Muscle spasms 08/06/22 08/07/22 History venlafaxine 150 mg 150 mg PO DAILY mood 08/06/22 08/07/22 History capsule,extended release 24 hr (Effexor XR) insulin pump cart,cont inf,BT 08/07/22 08/07/22 History (Omnipod Dash Pods (Gen 4) subcutaneous cartridge) rimegepant 75 mg disintegrating 75 mg PO DIRECTED PRN Headache 08/07/22 08/07/22 History tablet (Nurtec ODT) New Prescriptions to Start Prescriptions: Height: 1.68 m Weight: 98.543 kg Laboratory Results:: Laboratory Results - last 24 hr 08/06/22 16:44: Influenza Type A Ag Negative, Influenza Type B Ag Negative 08/06/22 16:44: Strep Scn [facility] Negative 08/06/22 17:19: WBC 17.7 H, RBC 4.24, Hgb 11.6 L, Hct 35.8 L, MCV 84.5, MCH 27.3, MCHC 32.4, RDW 13.9, Plt Count 413, MPV 9.2, Neut % (Auto) 84.8 H, Lymph % (Auto) 10.2, [place] % (Auto) 4.0, Eos % (Auto) 0.7, Baso % (Auto) 0.3, Neut # (Auto) 15.0 H, Lymph # (Auto) 1.8, [place] # (Auto) 0.7, Eos # (Auto) 0.1, Baso # (Auto) 0.1, Total Counted 100, Neutrophils % (Manual) 89 H, Lymphocytes % (Manual) 11, Platelet Estimate Normal, RBC Morphology Normal, ESR 116 H 08/06/22 17:19: Sodium 134 L, Potassium 4.6, Chloride 104, Carbon Dioxide 18 L, Anion Gap 16.6 H, BUN 40 H, Creatinine 3.00 H, Estimated Creat Clear 36, Estimated GFR 16 L*, Est GFR ( Amer) 20 L, Glucose 268 H, Calcium 8.3 L, C-Reactive Protein 169.8 H 08/06/22 17:19: Total Bilirubin 0.6, Direct Bilirubin 0.4, Conjugated Bilirubin 0.0, Indirect Bilirubin 0.2, Unconjugated Bilirubin 0.2, AST 20, ALT 17, Alkaline Phosphatase 173 H, Total Protein 7.0 D, Albumin 3.6 08/06/22 17:40: Lactate 0.9 08/06/22 19:10: Specimen Source Left radial, O2 % 21, ABG pH 7.37, ABG pCO2 29.8 L, ABG pO2 62.3 L, ABG HCO3 16.8 L, ABG Total CO2 17.7 L, ABG O2 Saturation 93, ABG Base Excess -8.5 L, Car Test Acceptable 08/06/22 19:24: SARS-CoV-2 (PCR) Not detected, Influenza A Untype (PCR) Not detected, Influenza Type B (PCR) Not detected 08/07/22 08:12: WBC 14.6 H, RBC 3.63 L, Hct 30.6 L, MCV 84.2, MCH 28.0, MCHC 33.2, RDW 13.9, Plt Count 377, MPV 8.6, Neut % (Auto) 81.6 H, Lymph % (Auto) 11.4, [place] % (Auto) 5.6, Eos % (Auto) 1.0, Baso % (Auto) 0.4, Neut # (Auto) 11.9 H, Lymph # (Auto) 1.7, [place] # (Auto) 0.8, Eos # (Auto) 0.2, Baso # (Auto) 0.1 Medical History: Medical History (Updated 08/07/22 @ 02:14 by Aicha Watkins RN) Abnormal cardiovascular stress test Amputation of left lower extremity below knee Amputation toe Atypical angina Chronic kidney disease Edema of right lower extremity Edentulism Encounter for pre-operative cardiovascular clearance GERD (gastroesophageal reflux disease) History of left below knee amputation IDDM (insulin dependent diabetes mellitus) SHAYLA (obstructive sleep apnea) Assessment and Pl
[2022-08-07 08:48] LABS: Hemoglobin 10.2 g/dL (12.2-16.2)
[2022-08-07 08:49] LABS: C-Reactive Protein 148.7 mg/L (0-4)
[2022-08-07 09:08] LABS: Erythrocyte Sedimentation Rate > 140 mm/hr (0-30)
--- NOTE | 2022-08-07 10:18 | SW/DCPLANNER ---
Addendum entered by Dunia Hulbert 08/08/22 14:14: Kasey allen/ Erika etienne confirm that if insurance approves over weekend they can admit to facility over the weekend. Patient will need a COVID swab prior to discharge. Addendum entered by Dunia Hulbert 08/08/22 10:39: Kasey allen/ [facility] Reddy stated that precert has been started for this patient: patient concurs with this plan. Per MD patient will discharge on IV Cefepime and IV Vanc x 6 weeks. Patient is medically stable for discharge. Addendum entered by Dunia Hulbert 08/07/22 14:04: Kasey allen/ Erika Reddy is also willing to offer this patient a bed at time of discharge. I will follow up with MD, patient, [facility]. Addendum entered by Dunia Hulbert 08/07/22 13:04: [facility] that [facility] is willing to accept this patient at time of discharge. Erika and [facility] are still reviewing patient information. Original Note: I spoke with this patient regarding discharge plans once medically stable for discharge. Dr Shipley has recommended SNF level of care once medically stable. Patient is agreeable to placement and prefers (in this order): [facility], Erika Reddy or [facility]. I will continue to follow up with facilities, MD and patient. Discharge date is unknown at this time.
[2022-08-07 10:39] LABS: Magnesium 1.4 mg/dl (1.6-2.3)
--- NOTE | 2022-08-07 11:48 | PC.NURSE ---
Pt bereket floor with surgery
--- NOTE | 2022-08-07 11:52 | HMH.PHAINT1 ---
Pharmacy Intervention Comments: Home medication list verified and reconciled via patient interview and external fill history. -Perla Luque, PharmD Candidate 2022
[2022-08-07 11:53] LABS: POC Glucose,Bedside 167 (70-110)
--- NOTE | 2022-08-07 11:54 | EXP.ANES.CKL ---
[facility] Disclaimer: The information contained in this section may have been updated after the patient was seen, as this information can be updated by other users. Medical History (Updated 08/07/22 @ 11:53 by Isha Shipley DPM) Abnormal cardiovascular stress test Amputation of left lower extremity below knee Amputation toe Atypical angina Chronic kidney disease Edema of right lower extremity Edentulism Encounter for pre-operative cardiovascular clearance GERD (gastroesophageal reflux disease) History of left below knee amputation IDDM (insulin dependent diabetes mellitus) SHAYLA (obstructive sleep apnea) Surgical History History of arthroplasty of left hip History of arthroplasty of right knee History of carpal tunnel release History of esophagogastroduodenoscopy (EGD) History of hip surgery History of tonsillectomy Family History Mother Coronary artery disease Father Coronary artery disease Sister Coronary artery disease Social History Smoking Status: Current every day smoker tobacco type: cigarettes packs per day: 1 pack-years: 20 quit status: considering quitting second hand exposure: Yes alcohol intake: never substance use type: denies use current occupational status: unemployed and disabled Travel in the last 8 weeks: None household members: friend(s) housing: house marital status: single number of children: 1 education level: high school diet: diabetic caffeine: Yes special leslie needs: No do you feel safe at home: Yes [facility] Anesthesia Checklist Patient Identification Patient Identification: Arm Band Structural Data Admitted From: Inpatient Planned Operative Procedure/s: Right Transmetatarsal Amputation Consent for Planned Operative Procedure(s) Verified: Yes Verified Documents: Surgical Consent and History and Physical NPO Status Verified Time NPO: 00:00 Additional verifications Anesthesia Reactions: Yes (nausea) Hx Blood Transfusions: No Blood Transfusion Reaction: No Airway Assessment C-Spine Mobility Assessed: Yes TMJ Mobility Assessed: Yes Dentition: Good Dentition Neurological Assessment Level of Consciousness: Awake and Alert Anesthesia Plan Anesthesia Risk discussed: Yes Anesthesia Plan: Verified ASA Class: III Anesthesia Type: MAC
--- NOTE | 2022-08-07 14:37 | EXP.ANES.I ---
[facility] Anesthesia Record Part I Anesthesia Record I Intake, IV Amount: 900 Estimated blood loss (mL): 5 Urine output (mL): 0 Blood Products used (#): none Blood Pressure: 110/61 SaO2: 92 Pulse Rate: 72 Respiratory Rate: 16 Temperature: 97.8 F Patient is:: Drowsy and Stable Stable to PACU at:: 14:35
--- NOTE | 2022-08-07 14:42 | XR_ITS ---
FINAL REPORT CLINICAL HISTORY: Confirm PICC line placement COMPARISON: 07/01/2020 FINDINGS: Interval placement of right-sided PICC line, in the right innominate vein. The heart size is normal. The mediastinum is normal. There is no focal infiltrate or edema. There are no pleural effusions. There is no pneumothorax. There is no osseous abnormality. IMPRESSION: Interval placement right-sided PICC line. No acute process. Reviewed, Interpreted and Dictated by Giovanni Navarro MD Transcribed by Marilu King Authenticated and [facility]
--- NOTE | 2022-08-07 14:42 | XR_ITS ---
FINAL REPORT CLINICAL HISTORY: Post op TMA COMPARISON: 08/06/2022 FINDINGS: RIGHT FOOT 3 views of the right foot were obtained. The patient is status post interval transmetatarsal amputation. Surgical drain is noted along the 2nd and 3rd distal metatarsals. The hindfoot is unremarkable. IMPRESSION: Interval surgical changes as above. Reviewed, Interpreted and Dictated by Giovanni Navarro MD Transcribed by Marilu King Authenticated and [facility]
--- NOTE | 2022-08-07 14:45 | EXP.OP.NOTE ---
Date of procedure: 08/07/22 Pre-op Diagnosis:: Right foot osteomyelitis Right diabetic foot ulcer DM foot infection Post-op Diagnosis:: Same Procedure performed:: Right transmetatarsal amputation Right foot adjacent soft tissue rearrangement/rotational flap Application of JOSE M drain Surgeon:: Isha Shipley DPM ZIPPER CUTTER:: Gio Ayers Anesthesia: LMA Estimated blood loss (mL): 20 Clinical Note:: Patient is a 52-year-old diabetic female well-known to the podiatry team. She has been seen outpatient in the clinic. She has a history of left below-knee amputation, multiple diabetic foot wounds with previous right second toe amputation. Her last wound culture 05/27/2022 grew Pseudomonas and MRSA. She has a history of noncompliance with taking oral antibiotics, dressing changes and no-show/missing office appointments. Patient was admitted 08/06/2022 for right diabetic foot infection. Radiographs and CT of right foot were reviewed and discussed with the patient. Imaging shows osteomyelitis of the first metatarsal. We discussed conservative or surgical treatment options. Given her noncompliance and failed outpatient treatment with oral antibiotics and local wound care, recommend amputation surgery. Discussed amputating the partial first ray versus transmetatarsal amputation. Given she is new diabetic wounds to the third fourth and fifth toes with questionable changes to the fifth toe on CT scan, recommend TMA. Patient understands that the foot will change shape after surgery. Patient also understands that they could have wound healing complications including delayed healing and infection. We discussed that if the wound does not heal, it is possible that they may need a more proximal amputation and could result in further loss of digits, loss of partial foot or loss of leg. We discussed the risks and benefits in great detail. Other surgical risks include: prolonged pain and swelling, further infection requiring oral or IV antibiotics, delay in healing of soft tissue or bone, nerve or blood vessel damage, CRPS/RSD, DVT, anesthesia complications, and even . All questions answered. Patient verbalized understanding. Consent obtained. Operative findings:: Right medial first metatarsal ulcer measuring approximately 3 x 3 x 0.5cm with exposed first metatarsal bone. Maceration and ulceration to the fifth lateral MPJ measuring approximately 1 x 1.5 x 0 cm. Previous second toe amputation. New right dorsal PIPJ ulceration to the third and fourth toes, 100% black eschar, both measuring 2 x 1 x 0.0 cm. There is purulence and malodor from the right first MPJ, wound culture taken. Cortical erosions and osseous changes to the MPJ consistent with osteomyelitis. Infection seen localized to the forefoot. There is no evidence of sinus tracking past the metatarsals. Post amputation, equinus evaluated and was within normal limits. No tendo Achilles lengthening performed. Her overall prognosis is fair: Although not a tremendous amount, she did have adequate blood flow. She got IV vancomycin earlier today. Prognosis will directly depend on her postop compliance. Operative note:: On this date and time patient was deemed an appropriate surgical candidate. With informed consent signed, the patient was taken to the operating theater. The patient was positioned supine. General anesthesia was induced. Right midcalf tourniquet used @225mmHg. The extremity was prepped and draped in normal sterile fashion. Right transmetatarsal amputation: A wound culture was taken from under the hallux ulcer and MPJ where white creamy purulence was noted. A fish mouth incision was mapped out. Utilizing a 15 blade dissection was carried down sharply to the level of the bone around the proximal phalanx bases, which were disarticulated from the metatarsals. There was fibrotic scar tissue over the second metatarsal consistent with previous second toe amputation scarring. The right great toe was soft and
[2022-08-07 14:51] LABS: POC Glucose,Bedside 177 (70-110)
--- NOTE | 2022-08-07 16:10 | PC.NURSE ---
Pt arrived back to the floor from surgery
[2022-08-07 16:57] LABS: Adenovirus F 40/41, stool Not Detected (NotDetected); Campylobacter Not Detected (NotDetected); Cryptosporidium Not Detected (NotDetected); Cyclospora Cayetanesis Not Detected (NotDetected); Entamoeba histolytica Not Detected (NotDetected); Enteroaggregative E coli Not Detected (NotDetected); Enteropathogenic E coli Not Detected (NotDetected); Enterotoxigenic E coli Not Detected (NotDetected); Giardia lamblia Not Detected (NotDetected); Norovirus Not Detected (NotDetected); Plesimonas Shigalloides, PCR Not Detected (NotDetected); Rotavirus A Not Detected (NotDetected); Salmonella, PCR Not Detected (NotDetected); Sapovirus Not Detected (NotDetected); Shiga-like toxin E coli Not Detected (NotDetected); Shigella Enterovasive E coli Not Detected (NotDetected); Vibrio Cholerae Not Detected (NotDetected); Vibrio, PCR Not Detected (NotDetected); Yersinia Entercolitica, PCR Not Detected (NotDetected)
[2022-08-07 17:13] LABS: POC Glucose,Bedside 147 (70-110)
--- NOTE | 2022-08-07 18:40 | EXP.ACUTE.PN ---
Subjective *Date: 08/07/22 *Time: 18:40 Interval history: No issues this morning. Getting ready go to the OR Medical Exam Vital signs and Labs for Last 24 Hours: Vital Signs Temp Pulse Pulse Resp BP BP Pulse Ox 08/07/22 15:45 96 H 15 124/62 95 08/07/22 15:35 84 16 110/65 95 08/07/22 15:25 79 15 106/77 L 95 08/07/22 15:15 72 16 120/87 95 08/07/22 15:05 74 16 117/73 96 08/07/22 14:55 74 16 117/54 L 95 08/07/22 14:45 97.8 F 75 16 110/61 94 L 08/07/22 08:00 99.4 F 93 H 18 159/77 H 94 L 08/07/22 04:00 99.9 F H 91 H 18 156/77 H 96 08/06/22 22:00 98 08/06/22 21:05 98.3 F 97 H 18 166/87 H 98 08/06/22 20:20 99 H 121/56 L 98 08/06/22 20:01 92 H 125/50 L 98 08/06/22 19:00 96 H 145/64 H 98 08/06/22 20:02 98.4 F 95 H 19 163/79 H 08/06/22 18:47 96 H 20 126/64 95 08/07/22 14:38 97.8 F 72 16 110/61 Intake and Output 08/07/22 08/07/22 08/07/22 07:59 15:59 23:59 Intake Total 1346 / 2246 900 / 2246 Output Total 450 / 650 200 / 650 Balance 896 / 1596 700 / 1596 Intake: Intake, Oral Amount 120 / 120 Intake, Total IV Amount 1226 / 2126 900 / 2126 0.9 % Sodium Chloride 1,000 ml 326 / 326 @ 150 mls/hr IV .Q6H40M JASEN Rx# :[id number] 0.9 % Sodium Chloride 500 ml @ 500 / 500 999 mls/hr IV .Q31M JASEN Rx#: [id number] Cefepime HCl 2 gm In 0.9 % 100 / 100 Sodium Chloride 100 ml @ 200 mls/hr IV Q8H JASEN Rx#:[id number] Vancomycin/Water For Inj (Peg) 300 / 300 1.5 gm In 300 ml @ 150 mls/hr IV Q48H PENDING SALE TO [facility] Rx#:[id number] Output: Output, Urine Amount 450 / 650 200 / 650 Other: Number of Voids 300 Number of Unmeasured Voids 0 1 Number of Urine Attends/Diapers 1 Number of Bowel Movements 1 Number of Unmeasured Emesis 1 Episodes Weight 98.543 kg 98.543 kg Patient Weight 08/07/22 23:59 Weight 98.543 kg Laboratory Results - last 24 hr 08/06/22 17:19: Total Counted 100, Neutrophils % (Manual) 89 H, Lymphocytes % (Manual) 11, Platelet Estimate Normal, RBC Morphology Normal, ESR 116 H 08/06/22 17:19: C-Reactive Protein 169.8 H 08/06/22 17:40: Lactate 0.9 08/06/22 19:10: Specimen Source Left radial, O2 % 21, ABG pH 7.37, ABG pCO2 29.8 L, ABG pO2 62.3 L, ABG HCO3 16.8 L, ABG Total CO2 17.7 L, ABG O2 Saturation 93, ABG Base Excess -8.5 L, Car Test Acceptable 08/06/22 19:24: SARS-CoV-2 (PCR) Not detected, Influenza A Untype (PCR) Not detected, Influenza Type B (PCR) Not detected 08/07/22 08:12: Sodium 135 L, Potassium 3.8, Chloride 109 H, Carbon Dioxide 17 L, Anion Gap 12.8, BUN 35 H, Creatinine 2.90 H, Estimated Creat Clear 35, Estimated GFR 17 L*, Est GFR ( Amer) 21 L, Glucose 152 H D, Calcium 7.9 L, Total Bilirubin 0.4, AST 18, ALT 13, Alkaline Phosphatase 132 H, Total Protein 6.0 L, Albumin 3.0 L D, Globulin 3.0, Albumin/Globulin Ratio 1.0 L 08/07/22 08:12: WBC 14.6 H, RBC 3.63 L, Hgb 10.2 L D, Hct 30.6 L, MCV 84.2, MCH 28.0, MCHC 33.2, RDW 13.9, Plt Count 377, MPV 8.6, Neut % (Auto) 81.6 H, Lymph % (Auto) 11.4, [place] % (Auto) 5.6, Eos % (Auto) 1.0, Baso % (Auto) 0.4, Neut # (Auto) 11.9 H, Lymph # (Auto) 1.7, [place] # (Auto) 0.8, Eos # (Auto) 0.2, Baso # (Auto) 0.1 08/07/22 08:12: C-Reactive Protein 148.7 H 08/07/22 08:12: ESR > 140 H 08/07/22 08:12: Phosphorus 3.0, Magnesium 1.4 L 08/07/22 11:18: POC Glucose 167 H 08/07/22 14:43: POC Glucose 177 H 08/07/22 16:47: POC Glucose 147 H I & O for Labs for Last 24 Hours: Intake & Output 08/04/22 08/05/22 08/06/22 08/07/22 23:59 23:59 23:59 23:59 Intake Total 2246 / 2246 Output Total 0 / 100 650 / 650 Balance 0 / -100 1596 / 1596 Weight 97.211 kg 98.543 kg Constitutional: Present no acute distress Respiratory: Present normal respiratory effort Cardiac: Present Reg Rate and Rhythm GI: Present normal bowel sounds; Absent tenderness Extremi
--- NOTE | 2022-08-07 20:00 | PC.NURSE ---
Addendum entered by Aicha Watkins RN 08/08/22 02:08: picc line not in use at this time per kit wilson, stated that picc line nurse states placement not confirmed will advance tomorrow and obtain xray again at this time, pt was instructed on this with return verb understanding. Original Note: pt was instructed on non weight bearing to operative side, pt verbalized understanding
[2022-08-07 20:47] LABS: POC Glucose,Bedside 246 (70-110)
[2022-08-07 23:15] LABS: Astrovirus Detected (NotDetected)
--- NOTE | 2022-08-07 23:15 | PC.NURSE ---
lab called with stool cultures positive for c-diff, and astrovirus, ryann germain aprn notified of results, note new orders entered to start po vancomycin.
[2022-08-07 23:17] LABS: Clostridium Difficile A/B, PCR Detected (NotDetected)
[2022-08-08] VITALS (7 sets, daily range): BP systolic 104–128; BP diastolic 44–67; PULSE 77–96; RESP 16–20; TEMP 36.5–37.4; O2SAT 92–100; BMI 35.1; BMI 35.0
--- NOTE | 2022-08-08 00:15 | PC.NURSE ---
pt was instructed on stool culture results, explained c-diff and precautions with verbal understanding,
--- NOTE | 2022-08-08 06:12 | PC.NURSE ---
pt medicated for pain x2, dressing to RLE cdi with j/p to bulb suction, pt is alert and oriented x4, vss, picc line will need reassessment today before use, pt is nwb to rle, no acute distress.
[2022-08-08 06:37] LABS: MANUAL DIFFERENTIAL MANUAL DIFFERENTIAL (MANUAL DIFF)
[2022-08-08 06:40] LABS: Basophils % 0.2 % (0.1-2.0); Eosinophils # 0.3 K/mm3 (0.0-0.4); Eosinophils % 1.8 % (0.1-12.0); Lymphocytes % 11.8 % (10-50); Mean Corpuscular HGB Conc 32.9 g/dL (31.8-35.4); Mean Corpuscular Volume 85.1 fl (81-99); Mean Platelet Volume 8.4 fl (7.4-10.4); Monocytes # 0.7 K/mm3 (0.1-1.0); Neutrophils # 13.6 K/mm3 (1.8-7.8); Neutrophils % 82.1 % (37.0-80.0); Platelet Count 359 K/mm3 (142-424); Red Blood Count 3.18 M/mm3 (4.20-5.40); Red Cell Distribution Width 14.2 % (11.5-17.5); White Blood Count 16.6 K/mm3 (4.8-10.8)
[2022-08-08 06:49] LABS: Alanine Aminotransferase 11 U/L (12-78); Albumin Level 2.6 g/dl (3.5-5.0); Alkaline Phosphatase 116 U/L (38-126); Anion Gap 11.8 mEq/L (5-15); Aspartate Amino Transferase 16 U/L (14-36); Bilirubin,Total 0.2 mg/dl (0.2-1.3); Blood Urea Nitrogen 39 mg/dl (7-17); Calcium 7.3 mg/dl (8.4-10.2); Carbon Dioxide 16 mmol/L (22.0-30.0); Chloride 113 mmol/L (98-107); Creatinine Clearance Estimated 33 mL/min (50-200); Estimated Glomerular Filt Rate 16 ml/min (>60); GFR (African American) 19 ML/MIN (>60); Globulin 2.6 g/dL (1.3-3.2); Glucose 173 mg/dl (74-100); Potassium 3.8 mmoL/L (3.5-5.1); Sodium 137 mmol/L (136-145); Total Protein,Serum 5.2 g/dl (6.3-8.2)
[2022-08-08 06:52] LABS: Hemoglobin 8.9 g/dL (12.2-16.2)
[2022-08-08 06:56] LABS: Phosphorous 4.1 mg/dl (2.5-4.5)
[2022-08-08 06:59] LABS: POC Glucose,Bedside 175 (70-110)
--- NOTE | 2022-08-08 07:34 | EXP.ANES.II ---
[facility] Anesthesia Record Part II Anesthesia Record Part II Discharge Time: 15:45 Destination: Medical Surgical Department PACU nurse assessment reviewed?: Yes Patient Condition:: Good Anesthesia Complications:: None Swallowing reflex intact?: Yes Cyanosis?: No Blood Pressure: 124/62 Pulse Rate: 96 Temperature: 98.1 F Mental Status: Alert & Oriented Pain level:: 0 Nausea and/or vomitting:: None Intake, IV Amount: 0
[2022-08-08 07:58] LABS: Lymphocytes % 11 % (10-50); Monocytes % 3 % (2-9); Neutrophils % 86 % (42-76); Platelet Estimate Normal; RBC Morphology Normal; Total Cells Counted 100
--- NOTE | 2022-08-08 07:59 | XR_ITS ---
FINAL REPORT CLINICAL HISTORY: PICC line placement COMPARISON: 08/07/2022 FINDINGS: PORTABLE CHEST A right upper extremity PICC line remains in the right innominate vein. The heart is normal in size. The mediastinum is unremarkable. The lungs are clear. There is no pneumothorax. IMPRESSION: Stable position of right upper extremity PICC line. Reviewed, Interpreted and Dictated by Giovanni Navarro MD Transcribed by Maddy Baldwin Authenticated and [facility]
--- NOTE | 2022-08-08 10:04 | HMH.OTEV ---
OT Inpatient Evaluation Rehab OT IP Evaluation Start: 08/08/22 08:46 Freq: ONCE Status: Active Protocol: Document 08/08/22 09:53 [facility] (Rec: 08/08/22 10:04 [facility] [id number]) Rehab OT IP Assessment Subjective History Pt oriented x 4 on arrival. Pt agreeable to engage in therapy evaluation. Pt was admitted on 08/06/22 due to Right Foot Pain, Diarrhea, Vomiting, and Earache. Pt required a Right transmetatarsal amputation on 08/07/22. Prior to being in the hospital, pt lived with friends. Pt claims she was independent with all ADLs ( dressing, bathing, and feeding ). She explains she was able to do minimal IADLs (light cleaning). She was dependent upon her friends for cooking and grocery shopping. She no longer drives. Pt did use a power wheelchair and cane at times. Pt has a past medical history of DM, Diabetic Neuropathies, CKD, h/o Left Below Knee Amputation, CKD, SHAYLA does not wear home CPAP. Subjective This isn't my first go around . Objective Patient Orientation Person,Place,Birthday,Year Upper Extremity Gross ROM WFL Bed Mobility bed mobility-scooting,bed mobility - supine/sit,bed mobility - rolling Assist Level Supervision/Stand by Transfer Training Sit/Stand/Pivot Transfer Assist Level Moderate x 2 (50% assist) Chair Transfer Ability Moderate x 2 (50% assist) Chair Transfer Technique Stand Pivot Chair Transfer Assistive Devices Rolling Walker Lower Body Dressing Ability Assistance X1 Performing Toilet Hygiene Ability Assistance X1 Overall Commode/Toilet Transfer Ability Assistance x2 Commode/Toilet Transfer Technique Stand Pivot Commode/Toilet Transfer Assistive Raised Toilet Seat Devices Rehab OT IP prob,goals,plan Problems Date of Evaluation: 08/08/22 OT IP Problems Bed Mobility,Transfers,Balance ,Self care,Safety Rehab Potential Rehab Potential
--- NOTE | 2022-08-08 10:09 | HMH.PTEV ---
Physical Therapy Evaluation Rehab PT IP Evaluation Start: 08/07/22 14:40 Freq: ONCE Status: Active Protocol: Document 08/08/22 10:02 ANGI (Rec: 08/08/22 10:09 PHORD[facility] [id number]) Subjective/History History History 52 yowf adm to [facility] with R foot osteomyelitis, now S/P R foot TMA. She has hx of prior L BKA and has a prosthesis. She reports no steps to enter the home, uses a cane at baseline for ambulation, but has a motorized w/c for long distances. Subjective Subjective Currently she has no c/o. She is NWB on the R LE. Rehab PT IP Eval Objective Appearance Patient Behavior Appropriate Patient Orientation Person,Place,Time Difficulty following instructions none Speech Pattern Clear Ambulation Patient Able to Ambulate No Balance Ability to Arise Able, uses arms to help Sitting Balance Steady, safe Standing Balance Unsteady Dynamic Sitting Balance Ability Good Dynamic Standing Balance Ability Fair Transfers Bed Transfer Ability Contact Guard/Hand Hold Chair Transfer Ability Minimal x 2 (25% assist) Sit to Stand Bed Transfer Ability Minimal x 2 (25% assist) Sit to Stand Chair Transfer Ability Minimal x 2 (25% assist) Rehab PT IP prob,goals,plan Problems Date of Evaluation: 08/08/22 PT IP Problems Bed Mobility,Transfers,Gait Rehab Potential Rehab Potential Good Equipment Needs Assistive Devices Rolling / Wheeled Walker Plan PT Intervention Plan Bed Mobility,Transfers,Gait, Self care,Therapeutic Exercise PT Plan Frequency BID Duration LOS Discharge Goals Bed Transfer Ability Supervision/Stand by Sit to Stand Chair Transfer Ability Minimal x 1 (25% assist) Ambulation Assistive Device Rolling Walker Ambulation Distance (feet) 2 Discharge Plan PT Discharge Plan Pt is currently most appropriate for rehab placement once medically stable for d/c. L prosthetic limb and curent R LE NWB provide significant barriers to return to home independently. G -code Required No Eval Complexity Eval Charge Codes 88872 - High Complexity PHY
--- NOTE | 2022-08-08 10:12 | PC.NURSE ---
Dr.K Rutherford reviewed pt's chest x-ray for PICC line placement. Per MD, PICC line is in good positioning and is able to be used as is.
[2022-08-08 12:35] LABS: POC Glucose,Bedside 195 (70-110)
[2022-08-08 16:26] LABS: POC Glucose,Bedside 173 (70-110)
--- NOTE | 2022-08-08 17:14 | PC.NURSE ---
PT IS RESTING IN BED. TOLERATED SITTING UP IN THE CHAIR FOR A FEW HOURS THIS SHIFT. PARTICIPATED WITH PHYSICAL THERAPY WELL. PT WAS A 2 ASSIST TO GET UP WITH PROSTHESIS AND WALKER. DRESSING TO THE LLE WAS CHANGED THIS SHIFT PER 'S ORDERS. 30 ML'S EMPTIED FROM JOSE M DRAIN. LUNG SOUNDS CLEAR. ABDOMEN SOFT/NON TENDER WITH ACTIVE BOWEL SOUNDS. WILL CONTINUE TO MONITOR.
--- NOTE | 2022-08-08 19:35 | EXP.ACUTE.PN ---
Subjective *Date: 08/08/22 *Time: 19:35 Interval history: No issues overnight. No complaints this Medical Exam Vital signs and Labs for Last 24 Hours: Vital Signs Temp Pulse Pulse Resp BP BP Pulse Ox 08/08/22 16:00 97.7 F 77 18 117/60 92 L 08/08/22 12:00 97.8 F 79 18 110/45 L 93 L 08/08/22 08:00 98.7 F 91 H 18 128/51 L 95 08/08/22 04:00 99.4 F 84 20 104/44 L 95 08/08/22 00:00 98.6 F 82 20 115/53 L 100 08/07/22 20:00 96 08/08/22 07:35 98.1 F 96 H 124/62 Intake and Output 08/08/22 08/08/22 08/08/22 07:59 15:59 23:59 Intake Total 1442 / 3234 1792 / 3234 Output Total 30 / 30 Balance 1442 / 3204 1792 / 3204 -30 / 3204 Intake: Intake, Oral Amount 960 / 960 Intake, Total IV Amount 1442 / 2274 832 / 2274 0.9 % Sodium Chloride 1,000 ml 832 / 832 @ 150 mls/hr IV .Q6H40M [facility] Rx# :[id number] Cefepime HCl 2 gm In 0.9 % 1342 / 1342 Sodium Chloride 100 ml @ 200 mls/hr IV Q8H [facility] Rx#:[id number] Metronidaz/Sod Chl 500 mg In 100 / 100 100 ml @ 100 mls/hr IV Q8H [facility] Rx#:[id number] Output: Output, Drainage Amount 30 / 30 Right Foot 30 / 30 Other: Weight 99.065 kg 99 kg Patient Weight 08/08/22 23:59 Weight 99 kg Laboratory Results - last 24 hr 08/06/22 15:30: Stl Aeromonas (PCR) Not detected, Stl C. cayetanensis PCR Not detected, Stool Rotavirus (PCR) Not detected, Stl Adenov F 40/41 PCR Not detected, Stool Astrovirus (PCR) Detected A, Stool Campylobacter PCR Not detected, Stl C.difficile Tox PCR Detected A, Stool Cryptosporidium PCR Not detected, Stl E.coli Shiga Tox PCR Not detected, Stool E coli O157 PCR Not detected, Stl Enterotoxigenic E PCR Not detected, Stool EPEC (PCR) Not detected, Stool EAEC (PCR) Not detected, Stl E. histolytica PCR Not detected, Stool Giardia Lamblia PCR Not detected, Stool Salmonella PCR Not detected, Stool Sapovirus (PCR) Not detected, Stl P. shigelloides PCR Not detected, Stl Shigella/EIEC PCR Not detected, St Y.enterocolitica PCR Not detected, Stool Vibrio (PCR) Not detected, Stl Vibrio cholerae PCR Not detected, Stl Norovirus GI/GII PCR Not detected 08/07/22 20:17: POC Glucose 246 H 08/08/22 06:25: WBC 16.6 H, RBC 3.18 L, Hgb 8.9 L D, Hct 27.0 L, MCV 85.1, MCH 28.0, MCHC 32.9, RDW 14.2, Plt Count 359, MPV 8.4, Neut % (Auto) 82.1 H, Lymph % (Auto) 11.8, [place] % (Auto) 4.0, Eos % (Auto) 1.8, Baso % (Auto) 0.2, Neut # (Auto) 13.6 H, Lymph # (Auto) 2.0, [place] # (Auto) 0.7, Eos # (Auto) 0.3, Baso # (Auto) 0.0, Total Counted 100, Neutrophils % (Manual) 86 H, Lymphocytes % (Manual) 11, Monocytes % (Manual) 3, Platelet Estimate Normal, RBC Morphology Normal 08/08/22 06:25: Sodium 137, Potassium 3.8, Chloride 113 H, Carbon Dioxide 16 L, Anion Gap 11.8, BUN 39 H, Creatinine 3.10 H, Estimated Creat Clear 33, Estimated GFR 16 L*, Est GFR ( Amer) 19 L*, Glucose 173 H, Calcium 7.3 L, Total Bilirubin 0.2, AST 16, ALT 11 L, Alkaline Phosphatase 116, Total Protein 5.2 L, Albumin 2.6 L D, Globulin 2.6, Albumin/Globulin Ratio 1.0 L 08/08/22 06:25: Phosphorus 4.1 D 08/08/22 06:47: POC Glucose 175 H 08/08/22 11:58: POC Glucose 195 H 08/08/22 16:04: POC Glucose 173 H I & O for Labs for Last 24 Hours: Intake & Output 08/05/22 08/06/22 08/07/22 08/08/22 23:59 23:59 23:59 23:59 Intake Total 2606 / 2606 3234 / 3234 Output Total 0 / 100 675 / 675 30 / 30 Balance 0 / -100 1931 / 1931 3204 / 3204 Weight 97.211 kg 98.543 kg 99 kg Microbiology Reports for the Last 24 Hours: Microbiology 08/06/22 17:40 Blood Blood Culture - Preliminary NO GROWTH AFTER 48 HOURS 08/06/22 17:40 Blood Blood Culture - Preliminary NO GROWTH AFTER 48 HOURS 08/07/22 13:42 Bone - Right Big Bone Culture - Preliminary NO GROWTH AFTER 24 HOURS 08/07/22 13:14 Toe,Right Great Gram Stain - Final 08/07/22 13:14
[2022-08-08 20:53] LABS: POC Glucose,Bedside 186 (70-110)
[2022-08-09] VITALS: BP 109/52; PULSE 85; RESP 18; TEMP 36.9; O2SAT 97
--- NOTE | 2022-08-09 02:32 | PC.NURSE ---
PATIENT NICKED HER ARM WHILE PUTTING ON HER PROSTHESIS. AREA WASHED AND TEGADERM APPLIED.
[2022-08-09 04:00] VITALS: BP 133/62; PULSE 85; RESP 18; TEMP 37; O2SAT 96; BMI 36.6
[2022-08-09 05:02] LABS: POC Glucose,Bedside 201 (70-110)
--- NOTE | 2022-08-09 05:51 | PC.NURSE ---
DRSG TO RIGHT FOOT C/D/I WITH JOSE M DRAIN IN PLACE. HAS INSULIN PUMP BUT WAS INSTRUCTED NOT TO USE SHE WILL BE RECEIVING INSULIN FROM US. INCENTIVE SPIROMETER ISSUED WITH INSTRUCTIONS. PERFORMED 2000ML. PATIENT C/O PAIN IN RIGHT FOOY 05/12 AND WAS MEDICATED WITH PERCOCET 10MG.
[2022-08-09 08:00] VITALS: BP 137/66; PULSE 81; RESP 18; TEMP 36.8; O2SAT 95; O2SAT 97
[2022-08-09 09:32] LABS: Coronavirus 19, PCR Not Detected (NotDetected); Influenza A, PCR Not Detected (NotDetected); Influenza B, PCR Not Detected (NotDetected)
[2022-08-09 09:33] LABS: Basophils % 0.4 % (0.1-2.0); Eosinophils # 0.2 K/mm3 (0.0-0.4); Eosinophils % 1.2 % (0.1-12.0); Hematocrit 25.6 % (37.0-47.0); Hemoglobin 8.2 g/dL (12.2-16.2); Lymphocytes # 1.8 K/mm3 (0.7-4.5); Lymphocytes % 14.3 % (10-50); Mean Corpuscular HGB Conc 31.9 g/dL (31.8-35.4); Mean Corpuscular Hemoglobin 28.2 pg (27.0-31.2); Mean Corpuscular Volume 88.5 fl (81-99); Mean Platelet Volume 8.8 fl (7.4-10.4); Monocytes # 0.6 K/mm3 (0.1-1.0); Monocytes % 4.7 % (1.7-9.3); Neutrophils # 10.1 K/mm3 (1.8-7.8); Neutrophils % 79.4 % (37.0-80.0); Platelet Count 354 K/mm3 (142-424); Red Blood Count 2.89 M/mm3 (4.20-5.40); Red Cell Distribution Width 14.3 % (11.5-17.5); White Blood Count 12.7 K/mm3 (4.8-10.8)
[2022-08-09 09:37] LABS: Chloride 112 mmol/L (98-107); Potassium 4.1 mmoL/L (3.5-5.1); Sodium 135 mmol/L (136-145)
[2022-08-09 09:40] LABS: Alanine Aminotransferase 12 U/L (12-78); Albumin Level 2.5 g/dl (3.5-5.0); Alkaline Phosphatase 130 U/L (38-126); Anion Gap 13.1 mEq/L (5-15); Aspartate Amino Transferase 20 U/L (14-36); Bilirubin,Total 0.2 mg/dl (0.2-1.3); Blood Urea Nitrogen 34 mg/dl (7-17); Carbon Dioxide 14 mmol/L (22.0-30.0); Creatinine Clearance Estimated 35 mL/min (50-200); Estimated Glomerular Filt Rate 16 ml/min (>60); GFR (African American) 19 ML/MIN (>60); Globulin 2.6 g/dL (1.3-3.2); Total Protein,Serum 5.1 g/dl (6.3-8.2)
[2022-08-09 09:41] LABS: Calcium 7.1 mg/dl (8.4-10.2); Glucose 210 mg/dl (74-100)
[2022-08-09 11:36] VITALS: BP 122/63; PULSE 84; RESP 18; TEMP 36.9; O2SAT 95
[2022-08-09 11:56] LABS: POC Glucose,Bedside 235 (70-110)
--- NOTE | 2022-08-09 13:04 | EXP.DC.SUM ---
General Admission date:: 08/06/22 Discharge date: 08/09/22 HPI HPI HPI: Patient is a 52-year-old female known to podiatry, with a past medical history of DM, Diabetic Neuropathies. Admitted with initial impression: Sepsis, Osteomyelitis, High Anion Gap Metabolic Acidosis and Acute on Chronic Renal Failure. Podiatry was consulted to see the patient, for right foot osteomyelitis, treatment recommendations. Patient lying in bed, alert and oriented. No acute distress noted. Right foot x-ray, right foot ct and labs results discussed with patient. Surgical consent obtained for right transmetatarsal amputation at noon. Keep NPO. No bedside wound debridement. Patient verbalized understanding and agreed with treatment plan. Hospital Course Hospital Course Hospital Course: Patient was admitted for worsening right foot diabetic wound. Diagnosed with osteomyelitis. Podiatry consulted and took patient for metatarsal amputation. She received IV vancomycin cefepime Flagyl for diabetic foot infection. Stool positive for C. difficile on oral vancomycin. Patient medically clear for discharge and sent to facility. Will need 6 weeks antibiotics and podiatry follow-up. Exam Data for Last 24 hours Vital signs and Labs for Last 24 Hours: Temp Pulse Resp BP Pulse Ox 98.4 F 84 18 122/63 95 08/09/22 11:36 08/09/22 11:36 08/09/22 11:36 08/09/22 11:36 08/09/22 11:36 Laboratory Results - last 24 hr 08/08/22 16:04: POC Glucose 173 H 08/08/22 20:41: POC Glucose 186 H 08/09/22 04:50: POC Glucose 201 H 08/09/22 09:22: WBC 12.7 H, RBC 2.89 L, Hgb 8.2 L, Hct 25.6 L, MCV 88.5, MCH 28.2, MCHC 31.9, RDW 14.3, Plt Count 354, MPV 8.8, Neut % (Auto) 79.4, Lymph % (Auto) 14.3, [place] % (Auto) 4.7, Eos % (Auto) 1.2, Baso % (Auto) 0.4, Neut # (Auto) 10.1 H, Lymph # (Auto) 1.8, [place] # (Auto) 0.6, Eos # (Auto) 0.2, Baso # (Auto) 0.0 08/09/22 09:22: Sodium 135 L, Potassium 4.1, Chloride 112 H, Carbon Dioxide 14 L, Anion Gap 13.1, BUN 34 H, Creatinine 3.10 H, Estimated Creat Clear 35, Estimated GFR 16 L*, Est GFR ( Amer) 19 L*, Glucose 210 H, Calcium 7.1 L, Total Bilirubin 0.2, AST 20, ALT 12, Alkaline Phosphatase 130 H, Total Protein 5.1 L, Albumin 2.5 L, Globulin 2.6, Albumin/Globulin Ratio 1.0 L 08/09/22 09:22: SARS-CoV-2 (PCR) Not detected, Influenza A Untype (PCR) Not detected, Influenza Type B (PCR) Not detected 08/09/22 11:49: POC Glucose 235 H I & O for Last 24 hours: Intake & Output 08/06/22 08/07/22 08/08/22 08/09/22 23:59 23:59 23:59 23:59 Intake Total 2606 / 2606 3714 / 3714 1710 / 1710 Output Total 0 / 100 675 / 675 230 / 230 330 / 330 Balance 0 / -100 1931 / 1931 3484 / 3484 1380 / 1380 Weight 97.211 kg 98.543 kg 99 kg 103.555 kg Microbiology Reports for the Last 24 Hours: Microbiology 08/07/22 13:14 Toe,Right Great Gram Stain - Final 08/07/22 13:14 Toe,Right Great Wound Culture - Preliminary 08/07/22 13:33 Bone - Right Bone Culture - Preliminary 08/07/22 13:42 Bone - Right Big Bone Culture - Preliminary 08/06/22 17:40 Blood Blood Culture - Preliminary NO GROWTH AFTER 48 HOURS 08/06/22 17:40 Blood Blood Culture - Preliminary NO GROWTH AFTER 48 HOURS 08/06/22 16:44 Throat Group A Streptococcus Screen (BIJAN) - Final Negative for Group A Streptococcus. Constitutional Constitutional: no acute distress and cooperative *Routine HEENT Exam Head: Present normocephalic and atraumatic ENT: Present mucous membranes moist *Routine Neck Exam Neck: Present supple and full ROM *Routine Respiratory Exam Respiratory: Present CTA bilaterally *Routine Cardiovascular Exam Cardiovascular: Present RRR, Normal S1 and Normal S2 *Routine Abdominal Exam Abdominal: Present soft and normoactive bowel sounds; Absent tenderness *Routine Extremities Exam Extremities: Absent cyanosis or edema *Routine Skin Exam Skin: Present intact; Abs
--- NOTE | 2022-08-09 15:50 | PC.NURSE ---
Report called to Edilia at [facility]; Scripts sent for Percocet & Gabapentin 300 TID (Gabapentin script clarified with Dr. Kingston Rutherford of dose & frequency - dose is different due to kidney function per Dr. Kingston Rutherford).
== END 2022-08-09 16:15 | DRG 617 ==
LOC: UTC 16:06 → ER 17:38 → 2ND 19:10
PROVIDERS: Nurse Practitioner Family; Podiatrist; Admitting Provider Student in an Organized Health Care Education/Training Program; Emergency Provider Emergency Medicine; PCP Nurse Practitioner Family; Visit Provider Student in an Organized Health Care Education/Training Program
PROC: 0Y6P0Z1 Detachment at Right 1st Toe, High, Open Approach (ICD-10-PCS; principal; 2022-08-07 12:00)
DX: L03.115 Cellulitis of right lower limb (principal); M86.9 Osteomyelitis, unspecified; M86.671 Other chronic osteomyelitis, right ankle and foot; E11.21 Type 2 diabetes mellitus with diabetic nephropathy; E11.69 Type 2 diabetes mellitus with other specified complication; E11.628 Type 2 diabetes mellitus with other skin complications; Z79.4 Long term (current) use of insulin; E11.621 Type 2 diabetes mellitus with foot ulcer; G47.33 Obstructive sleep apnea (adult) (pediatric); Z96.642 Presence of left artificial hip joint; E11.40 Type 2 diabetes mellitus with diabetic neuropathy, unspecified; E11.22 Type 2 diabetes mellitus with diabetic chronic kidney disease; N18.9 Chronic kidney disease, unspecified; Z89.512 Acquired absence of left leg below knee; Z96.651 Presence of right artificial knee joint; Z96.41 Presence of insulin pump (external) (internal); Z79.02 Long term (current) use of antithrombotics/antiplatelets; L97.514 Non-pressure chronic ulcer of other part of right foot with necrosis of bone; E11.51 Type 2 diabetes mellitus with diabetic peripheral angiopathy without gangrene; E11.65 Type 2 diabetes mellitus with hyperglycemia; Z89.421 Acquired absence of other right toe(s)
CPT/HCPCS: 28810 ×4; 36569; 36410; 36415; 71045; 73630; 73700; 80048; 80053; 80076; 82803; 82962; 83605; 83735; 84100; 85007; 85014; 85018; 85025; 85048; 85049; 85651; 86140; 87040; 87070; 87075; 87077; 87186; 87205; 87507; 87804; 87880; 88304; 88305; 88311; 93005; 97163; 97166; 97530; 99285; C1751; C9803; J0692; J2405; J2704; J3370; U0003; U0005

== ENCOUNTER → 2022-08-28 15:37 | Outpatient (CLI) | payer MEDICARE, MEDICAID, SELFPAY ==
[2022-08-28 16:40] LABS: Basophils # 0.1 K/mm3 (0-0.2); Basophils % 0.9 % (0.1-2.0); Eosinophils # 0.1 K/mm3 (0.0-0.4); Eosinophils % 2.1 % (0.1-12.0); Hematocrit 31.9 % (37.0-47.0); Hemoglobin 10.3 g/dL (12.2-16.2); Lymphocytes # 1.6 K/mm3 (0.7-4.5); Lymphocytes % 23.9 % (10-50); Mean Corpuscular HGB Conc 32.2 g/dL (31.8-35.4); Mean Corpuscular Hemoglobin 27.7 pg (27.0-31.2); Monocytes # 0.4 K/mm3 (0.1-1.0); Monocytes % 5.5 % (1.7-9.3); Neutrophils # 4.4 K/mm3 (1.8-7.8); Neutrophils % 67.6 % (37.0-80.0); Platelet Count 328 K/mm3 (142-424); Red Cell Distribution Width 15.7 % (11.5-17.5); White Blood Count 6.6 K/mm3 (4.8-10.8)
[2022-08-28 16:57] LABS: Alanine Aminotransferase 18 U/L (12-78); Albumin Level 3.3 g/dl (3.5-5.0); Albumin/Globulin Ratio 1.2 (1.1-1.8); Alkaline Phosphatase 156 U/L (38-126); Anion Gap 13.1 mEq/L (5-15); Aspartate Amino Transferase 24 U/L (14-36); Bilirubin,Total 0.2 mg/dl (0.2-1.3); Blood Urea Nitrogen 28 mg/dl (7-17); Calcium 8.3 mg/dl (8.4-10.2); Carbon Dioxide 25 mmol/L (22.0-30.0); Chloride 107 mmol/L (98-107); Estimated Glomerular Filt Rate 26 ml/min (>60); GFR (African American) 32 ML/MIN (>60); Globulin 2.7 g/dL (1.3-3.2); Glucose 78 mg/dl (74-100); Potassium 5.1 mmoL/L (3.5-5.1); Sodium 140 mmol/L (136-145)
[2022-08-28 17:02] LABS: C-Reactive Protein 19.7 mg/L (0-4)
[2022-08-28 17:09] LABS: Erythrocyte Sedimentation Rate 90 mm/hr (0-30)
== END ==
PROVIDERS: PCP Nurse Practitioner Family; Visit Provider Podiatrist
DX: Z89.431 Acquired absence of right foot (principal); L97.522 Non-pressure chronic ulcer of other part of left foot with fat layer exposed
CPT/HCPCS: 36415; 80053; 85025; 85651; 86140

== ENCOUNTER 2022-09-04 11:32 | Day surgery (SDC) | payer MEDICARE, MEDICAID, SELFPAY ==
[2022-09-01 13:17] VITALS: BMI 37.3
[2022-09-04] VITALS (8 sets, daily range): BP systolic 116–206; BP diastolic 64–95; PULSE 79–83; RESP 16–18; TEMP 36.3–43; O2SAT 93–98
--- NOTE | 2022-09-04 13:59 | XR_ITS ---
FINAL REPORT CLINICAL HISTORY: Post op TMA COMPARISON: 08/07/2022 FINDINGS: RIGHT FOOT: Three views of the right foot were obtained. Postoperative changes are noted from total metatarsal amputation. There is no acute fracture or dislocation. The joint spaces are intact. There are mild degenerative changes. There is no soft tissue abnormality. IMPRESSION: Postoperative changes from total metatarsal amputation. Mild degenerative changes. Reviewed, Interpreted and Dictated by Saroj Barajas III, MD Transcribed by Marilu King Authenticated and [facility]
[2022-09-04 14:01] LABS: HCG Qualitative, Serum Negative (Negative)
--- NOTE | 2022-09-04 15:17 | EXP.OP.NOTE ---
Date of procedure: 09/04/22 Pre-op Diagnosis:: Right foot TMA gangrene Post-op Diagnosis:: Same Procedure performed:: Right TMA revision Right adjacent soft tissue rearrangement/flap Right foot I&D Right foot open bone biopsy Surgeon:: Isha Shipley DPM [employer] AGENT:: Other (Asad Montoya) Anesthesia: MAC and local (20cc 0.5% hazel plain) Estimated blood loss (mL): 30 Clinical Note:: Patient is a 52F DM female who presents s/p right TMA on 08/07/22.?Patient's flap is now dry gangrene and nonhealing. Concern over wound flap breakdown with possible worsening wound dehiscence over next few weeks. We discussed continuing conservative care vs surgical debridement.?Conservative treatment includes local wound care, IV antibiotics, continue daily dressing changes/wound care.? My recommendation is surgical debridement and revision of the TMA flap with new bone biopsies. Patient understands that they could have wound healing complications including delayed healing and infection. We discussed that if the wound does not heal, it is possible that they may need a more proximal amputation and could result in further loss of digits, loss of partial foot or loss of leg. We discussed the risks and benefits in great detail. Other surgical risks include: prolonged pain and swelling, further infection requiring oral or IV antibiotics, delay in healing of soft tissue or bone, nerve or blood vessel damage, CRPS/RSD, DVT, anesthesia complications, and even . All questions answered. Patient verbalized understanding. Consent obtained. Operative findings:: Right foot transmetatarsal amputation incision has gangrene with necrosis. The flap has about 13 x 5 cm of dusky discoloration. A full-thickness excision of nonviable tissue performed utilizing a 15 blade and forceps. Post excision the area was approximately 15 x 10 x 3 cm. Operative note:: On this date and time patient was deemed an appropriate surgical candidate. With informed consent signed, the patient was taken to the operating theater. The patient was positioned supine. MAC anesthesia was induced. Right mid-calf tourniquet used at 225 mmHg. The right lower extremity was prepped and draped in normal sterile fashion. IV daptomycin, cefepime given. 10cc 0.5% marcaine plain was injected to ankle. Right foot incision and drainage/irrigation and debridement: Attention was directed to the right previous transmetatarsal amputation site where a 15 blade was used to make an incision full-thickness through the old incision. There were gangrenous changes and skin sloughing noted with dusky discoloration. Some serosanguineous drainage was expressed. A wound culture had been taken. The nonviable tissue was excised full-thickness. See operative findings for measurements. Right transmetatarsal amputation revision, open bone biopsy: Utilizing a 15 blade dissection was carried down sharply to the level of the bone, exposing the previously cut metatarsals. The first metatarsal bone was soft and crumbly and had a slight malodor to it. Portion of it was cut and sent for bone culture. Attention was then directed to the remaining metatarsals. Utilizing power resection the metatarsal heads 2-5 were transected. A piece of the metatarsals 2-5 were sent as a bone culture. The 2-5 metatarsals looked within normal limits, bone hard, no obvious signs of osteomyelitis noted. Attention was directed back to the first metatarsal. A piece of the remaining first metatarsal was sent to pathology for a clean proximal margin. The proximal margin ended up being the metatarsal base. The medial cuneiform cartilage was intact with no obvious cortical erosions noted. The bone parabola was checked, which was deemed to be appropriate. Next 3 L of gentamicin irrigation was used to flush the wound and pulse lavage. The wound was re-explored and no further signs of infection noted. At this point double-ended rasp was used to smooth down the edges of the bone so that there were no sha
--- NOTE | 2022-09-04 15:25 | EXP.ANES.CKL ---
[facility] Disclaimer: The information contained in this section may have been updated after the patient was seen, as this information can be updated by other users. Medical History Abnormal cardiovascular stress test Allergies Amputation of left lower extremity below knee Amputation toe Anxiety Arthritis Atypical angina Cellulitis Chronic kidney disease Chronic kidney disease Depression Diabetes Ear ache Edema of right lower extremity Edentulism Encounter for pre-operative cardiovascular clearance GERD (gastroesophageal reflux disease) History of back pain History of left below knee amputation Hyperlipidemia Hypertension IDDM (insulin dependent diabetes mellitus) Intrauterine device Irritable bowel syndrome (IBS) Migraine SHAYLA (obstructive sleep apnea) Pancreatitis Sinus headache Sleep apnea Urinary tract infection Surgical History H/O esophagogastroduodenoscopy History of arthroplasty of left hip History of arthroplasty of right knee History of carpal tunnel release History of cholecystectomy History of esophagogastroduodenoscopy (EGD) History of hip surgery History of surgery History of tonsillectomy Hx of section Family History Mother Coronary artery disease Father Coronary artery disease Sister Coronary artery disease Other Cancer Diabetes Social History Smoking Status: Former smoker smoking status stop date: quit status: considering quitting second hand exposure: No alcohol intake: never substance use type: denies use current occupational status: unemployed and disabled Travel in the last 8 weeks: None housing: house marital status: single number of children: 1 education level: high school diet: diabetic caffeine: No special leslie needs: No do you feel safe at home: Yes [facility] Anesthesia Checklist Patient Identification Patient Identification: Arm Band and Family Structural Data Admitted From: Home Planned Operative Procedure/s: Right Transmetatarsal Revision Consent for Planned Operative Procedure(s) Verified: Yes Verified Documents: Surgical Consent and History and Physical NPO Status Verified Time NPO: 00:00 Additional verifications Patient : No Anesthesia Reactions: Yes (nausea) Hx Blood Transfusions: No Blood Transfusion Reaction: No Cephalosporin Allergy: No Previous Colonoscopy: No Airway Assessment C-Spine Mobility Assessed: Yes TMJ Mobility Assessed: Yes Dentition: Edentulous Neurological Assessment Level of Consciousness: Awake, Alert, Appropriate and Follows Commands Numbness or tingling in extremities: Yes Anesthesia Plan Anesthesia Risk discussed: Yes ASA Class: III Anesthesia Type: MAC Preoperative Comments Pre-Operative Comments: Cardiac Stents X2. Hypertension. Borderline renal failure. IDDM. Phantom left leg syndrome.
[2022-09-06 09:20] LABS: POC Glucose,Bedside 287 (70-110)
== END 2022-09-04 15:57 | disposition home or self-care (01) ==
PROVIDERS: PCP Nurse Practitioner Family; Visit Provider Podiatrist
PROC: (CPT 28805; principal; 2022-09-04 13:45)
DX: T87.81 Dehiscence of amputation stump (principal); I96 Gangrene, not elsewhere classified; E11.52 Type 2 diabetes mellitus with diabetic peripheral angiopathy with gangrene; E11.621 Type 2 diabetes mellitus with foot ulcer; L97.522 Non-pressure chronic ulcer of other part of left foot with fat layer exposed; Z79.4 Long term (current) use of insulin; N18.9 Chronic kidney disease, unspecified; E11.22 Type 2 diabetes mellitus with diabetic chronic kidney disease; F17.210 Nicotine dependence, cigarettes, uncomplicated; Z79.899 Other long term (current) drug therapy; I12.9 Hypertensive chronic kidney disease with stage 1 through stage 4 chronic kidney disease, or unspecified chronic kidney disease; M86.671 Other chronic osteomyelitis, right ankle and foot; B95.2 Enterococcus as the cause of diseases classified elsewhere
CPT/HCPCS: 28805; 73630; 82962; 84703; 87070; 87075; 87077; 87081; 87186; 87205; 88304; 96374; J0692; J0878; J3370

== ENCOUNTER → 2022-09-11 11:46 | Outpatient (CLI) | payer MEDICARE, MEDICAID, SELFPAY ==
--- NOTE | 2022-09-11 11:49 | XR_ITS ---
FINAL REPORT CLINICAL HISTORY: ankle pain COMPARISON: 09/04/2022 FINDINGS: RIGHT ANKLE 3 views of the right ankle were obtained. Patient is status post mid foot amputation. There are overlying skin bret. There is no acute fracture or dislocation. The mortise is intact. Visualized joint spaces are normally aligned. There is mild soft tissue edema. IMPRESSION: Post right midfoot amputation with overlying skin bret. Reviewed, Interpreted and Dictated by Pro Guillory MD Transcribed by Danitza Viramontes Authenticated and [facility]
== END ==
PROVIDERS: PCP Nurse Practitioner Family; Visit Provider Nurse Practitioner Family
DX: M25.571 Pain in right ankle and joints of right foot (principal)
CPT/HCPCS: 73610

== ENCOUNTER 2022-09-15 16:39 | Emergency (ER) | payer MEDICARE, MEDICAID, SELFPAY ==
--- NOTE | 2022-09-15 16:38 | XR_ITS ---
PROCEDURE INFORMATION: Exam: XR Chest Exam date and time: 09/15/2022 5:09 PM Age: 52 years old Clinical indication: Device placement; Picc; Additional info: Eval picc TECHNIQUE: Imaging protocol: Radiologic exam of the chest. Views: 1 view. COMPARISON: CR XR CHEST PORTABLE PICC PLAC 08/08/2022 8:14 AM FINDINGS: Tubes, catheters and devices: Right subclavian PICC line is present, distal tip overlying the junction of scapula and 4th lateral rib, at the approximate location of the mid to distal axillary vein/subclavian vein junction. Lungs: Lung volumes are mildly diminished on the right with mild to moderate stable elevation of the right hemidiaphragm. The lungs appear clear. No focal areas of consolidation. Pleural spaces: No pleural effusions or appreciable adenopathy. Negative for pneumothorax. Heart/Mediastinum: Cardiac silhouette and pulmonary vasculature are within range of normal. Bones/joints: There is no evidence of acute fracture. IMPRESSION: 1. Negative for an acute cardiopulmonary abnormality. 2. Right subclavian PICC line distal tip overlying the junction of scapula and 4th lateral rib at the approximate location of the mid to distal axillary vein/subclavian vein junction.
[2022-09-15 16:39] VITALS: BP 119/57; PULSE 76; RESP 18; TEMP 36.4; O2SAT 99; BMI 33.3
--- NOTE | 2022-09-15 16:41 | PC.NURSE ---
PT HOOKED UP TO MONITOR CALL LIGHT AT BEDSIDE
--- NOTE | 2022-09-15 16:46 | ECG_ITS ---
APPROVED REPORT Exam: Resting ECG HR:73 bpm ECG Measurements Heart Rate 73 AXES DE 133 P 51 QRSd 98 QRS 54 QT 387 T 48 QTc 412 Conclusion SINUS RHYTHM NORMAL ECG UNCONFIRMED REPORT Electronically signed by : Wally Teran MD 09/16/2022 21:18:19
--- NOTE | 2022-09-15 16:46 | PC.NURSE ---
Gave respiratory Green top for V[facility]
--- NOTE | 2022-09-15 16:49 | PC.NURSE ---
ER AT BEDSIDE
[2022-09-15 16:51] LABS: VBG HCO3 14.8 mmol/L (23-30); VBG Oxygen Saturation 85.6 % (50-70); VBG PCO2 28.2 mmol/L (35-51); VBG PH 7.34 mmol/L (7.31-7.41); VBG Total CO2 15.7 mmol/L (23-27)
--- NOTE | 2022-09-15 16:58 | PC.NURSE ---
RADIOLOGY AT BEDSIDE
--- NOTE | 2022-09-15 16:59 | HMH.EDGENADL ---
Discharge Plan Disposition Patient Disposition: Home, Self-Care Condition: Good Prescriptions Prescriptions: No Action Novolin 70-30 FlexPen U-100 100 unit/mL (70-30) insulin pen 4 unit SQ BID Qty: 15 2RF insulin glargine [Lantus Solostar U-100 Insulin] 100 unit/mL (3 mL) insulin pen 10 unit SQ HS Qty: 15 2RF aspirin 81 mg tablet,delayed release (DR/EC) 81 mg PO DAILY Qty: 90 0RF linezolid 600 mg tablet 600 mg PO Q12H 14 Days Qty: 28 0RF pantoprazole 40 mg tablet,delayed release (DR/EC) 40 mg PO DAILY Qty: 90 3RF Rx Instructions: TAKE 1 TABLET BY MOUTH DAILY for GERD atorvastatin 40 mg tablet 40 mg PO HS Qty: 90 3RF tramadol 50 mg tablet 50 mg PO Q6H PRN (Reason: pain) Qty: 30 0RF oxycodone-acetaminophen 7.5-325 mg tablet 1 tab PO Q6H PRN (Reason: pain) 7 Days Qty: 30 0RF tizanidine 4 mg tablet See Rx Instructions .ROUTE .COMPLEX Qty: 60 0RF Dose Instruction: TAKE ONE TABLET BY MOUTH AT BEDTIME FOR 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 Rx Instructions: TAKE ONE TABLET BY MOUTH AT BEDTIME FOR 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 carvedilol 6.25 mg tablet 12.5 mg PO BID Rx Instructions: must administer with a meal/food gabapentin 300 mg capsule 600 mg PO TID metronidazole 500 mg Tablet 500 mg PO TID isosorbide mononitrate 60 mg tablet extended release 24 hr 60 mg PO DAILY venlafaxine [Effexor XR] 150 mg capsule,extended release 24hr 150 mg PO DAILY lisinopril 10 mg tablet 10 mg PO DAILY Nurtec ODT 75 mg tablet,disintegrating 75 mg PO DIRECTED PRN (Reason: Headache) Rx Instructions: DISSOLVE ONE TABLET ON THE TONGUE AT ONSET OF MIGRAINE HEADACHE NEEDED (DME) Omnipod Dash Pods (Gen 4) Cartridge SQ Label Comments: CHANGE PODS EVERY 72 HOURS Cefepime HCl [Maxipime 2gm Vial] 2 GM 0.9 % Sodium Chloride [Sod Chloride 0.9% MB+ 100mL] 100 ML 200 mls/hr IV Q12H Ordered By: Jay Rutherford MD Last Taken: Unknown Vancomycin HCl [Vancomycin 1000mg vial] 1500 MG 0.9 % Sodium Chloride [Sod Chlor 0.9% 250mL Bag] 250 ML 125 mls/hr IV Q48H Ordered By: Jay Rutherford MD Last Taken: Unknown Activity Restrictions/Add. Instructions Additional Instructions/Restrictions: You were evaluated in the emergency department today. At this time, your PICC line is displaced. You will be contacted tomorrow with an appointment to replace your PICC line. It is okay to miss your dose of antibiotics tonight. Return to the emergency department for any new or concerning symptoms. Continue monitoring your blood sugar and taking your insulin at home. Clinical Impressions Clinical Impression: Displacement of peripherally inserted central catheter (PICC), Acute hyperglycemia Instructions Patient Instructions: DI for Hyperglycemia -- Adult, Peripherally Inserted Central Catheter Discharge ED Provider: Nichol Zacarias General Adult HPI General Chief complaint: Hyper/Hypoglycemia Stated complaint: HIGH BLOOD SUGAR Time Seen by Provider: 09/15/22 16:39 History of Present Illness HPI narrative: This patient is a 52-year-old female with a history of chronic foot wounds and osteomyelitis who is currently on IV cefepime and recently finished IV vancomycin, insulin-dependent diabetes, hypertension, CAD, hypertension, hyperlipidemia, and CHF presented to the emergency department for evaluation with concern that her PICC line may have become displaced and she had high blood sugar readings at home. She took 30 units of insulin prior to arrival for blood glucose of greater than 500. Her home health nurse came and attempted to draw a vancomycin trough from her PICC line, however it would not drop. Given this, they were concerned that it was displaced. Patient states that she has been feeling nauseated today, but she denies any other concerns. No recent fevers, chills, chest pain, shortness of breath, or other issues. Relate
[2022-09-15 17:02] LABS: Basophils # 0.1 K/mm3 (0-0.2); Eosinophils # 0.2 K/mm3 (0.0-0.4); Eosinophils % 1.7 % (0.1-12.0); Hematocrit 37.3 % (37.0-47.0); Hemoglobin 11.3 g/dL (12.2-16.2); Lymphocytes # 2.4 K/mm3 (0.7-4.5); Lymphocytes % 19.1 % (10-50); Mean Corpuscular HGB Conc 30.3 g/dL (31.8-35.4); Mean Corpuscular Hemoglobin 25.4 pg (27.0-31.2); Mean Corpuscular Volume 83.8 fl (81-99); Mean Platelet Volume 8.2 fl (7.4-10.4); Monocytes # 0.4 K/mm3 (0.1-1.0); Monocytes % 3.4 % (1.7-9.3); Neutrophils # 9.1 K/mm3 (1.8-7.8); Neutrophils % 74.8 % (37.0-80.0); Platelet Count 528 K/mm3 (142-424); Red Blood Count 4.45 M/mm3 (4.20-5.40); Red Cell Distribution Width 15.4 % (11.5-17.5); White Blood Count 12.2 K/mm3 (4.8-10.8)
[2022-09-15 17:09] LABS: Acetone, Serum (Rapid) None Detected (None Detect); Chloride 107 mmol/L (98-107); Sodium 138 mmol/L (136-145)
[2022-09-15 17:10] LABS: Potassium 4.3 mmoL/L (3.5-5.1)
[2022-09-15 17:12] LABS: Alanine Aminotransferase 25 U/L (12-78); Albumin Level 3.6 g/dl (3.5-5.0); Albumin/Globulin Ratio 1.1 (1.1-1.8); Alkaline Phosphatase 136 U/L (38-126); Anion Gap 14.3 mEq/L (5-15); Aspartate Amino Transferase 28 U/L (14-36); Bilirubin,Total 0.3 mg/dl (0.2-1.3); Blood Urea Nitrogen 34 mg/dl (7-17); Carbon Dioxide 21 mmol/L (22.0-30.0); Creatinine Clearance Estimated 41 mL/min (50-200); Estimated Glomerular Filt Rate 22 ml/min (>60); GFR (African American) 27 ML/MIN (>60); Globulin 3.3 g/dL (1.3-3.2); Total Protein,Serum 6.9 g/dl (6.3-8.2)
[2022-09-15 17:13] LABS: Calcium 8.4 mg/dl (8.4-10.2); Glucose 262 mg/dl (74-100)
[2022-09-15 17:31] VITALS: BP 104/60; PULSE 74; RESP 16; O2SAT 95
[2022-09-15 18:00] VITALS: BP 109/64; PULSE 69; RESP 14; O2SAT 95
--- NOTE | 2022-09-15 18:30 | PC.NURSE ---
RENETTA LUGO speaking with hospitalist.
--- NOTE | 2022-09-15 18:37 | PC.NURSE ---
CHECKED ON PT SHE IS OKAY AT THIS TIME. CALL LIGHT AT BEDSIDE
[2022-09-15 18:54] VITALS: BP 102/71; PULSE 72; RESP 16; TEMP 36.8; O2SAT 97
== END 2022-09-15 18:56 | disposition home or self-care (01) ==
PROVIDERS: Emergency Provider Emergency Medicine
DX: T82.524A Displacement of infusion catheter, initial encounter (principal); E11.65 Type 2 diabetes mellitus with hyperglycemia; X58.XXXA Exposure to other specified factors, initial encounter; M86.171 Other acute osteomyelitis, right ankle and foot; M86.172 Other acute osteomyelitis, left ankle and foot; I50.9 Heart failure, unspecified; F41.9 Anxiety disorder, unspecified; N18.9 Chronic kidney disease, unspecified; I13.0 Hypertensive heart and chronic kidney disease with heart failure and stage 1 through stage 4 chronic kidney disease, or unspecified chronic kidney disease; K21.9 Gastro-esophageal reflux disease without esophagitis; E78.5 Hyperlipidemia, unspecified
CPT/HCPCS: 71045; 80053; 82009; 82803; 85025; 93005; 96374; 99285; J2405

== ENCOUNTER → 2022-09-17 10:11 | Outpatient (CLI) | payer MEDICARE, MEDICAID, SELFPAY ==
[2022-09-17 10:39] VITALS: BMI 34.5
--- NOTE | 2022-09-17 10:42 | XR_ITS ---
FINAL REPORT CLINICAL HISTORY: PICC line placement COMPARISON: 09/15/2022 FINDINGS: A single PA view of the chest was obtained. The cardiac and mediastinal silhouettes are within normal limits. The previously seen right PICC line has been removed. A left PICC line has been placed with the tip in the SVC. There are low lung volumes. There is no effusion or pneumothorax. No acute osseous abnormality is identified. IMPRESSION: Left PICC line tip terminates in the SVC. Reviewed, Interpreted and Dictated by Abbi Burnett MD Transcribed by Francisca Chamorro Authenticated and [facility]
== END ==
PROVIDERS: PCP Nurse Practitioner Family; Visit Provider Emergency Medicine
DX: Z45.2 Encounter for adjustment and management of vascular access device (principal)
CPT/HCPCS: 36410; 36569; 71045; C1751

== ENCOUNTER → 2022-10-15 10:13 | Outpatient (CLI) | payer MEDICARE, MEDICAID, SELFPAY | PROVIDERS: Visit Provider Nurse Practitioner Family | DX: Z89.431 Acquired absence of right foot (principal); B37.9 Candidiasis, unspecified | CPT/HCPCS: 87070; 87077; 87205 ==

== ENCOUNTER 2023-03-15 17:56 | Emergency (ER) | payer MEDICARE, MEDICAID, SELFPAY ==
[2023-03-15 18:00] VITALS: BP 149/75; PULSE 99; RESP 20; TEMP 36.7; O2SAT 97; BMI 31.6
--- NOTE | 2023-03-15 18:10 | EXP.UTC ---
Discharge Plan Disposition Patient Disposition: Home, Self-Care Condition: Good Prescriptions Prescriptions: New azithromycin [Zithromax] 250 mg tablet 250 mg PO UD DOSE PK Qty: 6 0RF Rx Instructions: Take two (2) tablets today, then one (1) tablet days #2 thru #5 benzonatate [benzonatate] 100 mg capsule 100 mg PO TIDP PRN (Reason: Cough) Qty: 30 0RF No Action aspirin 81 mg tablet,delayed release (DR/EC) 81 mg PO DAILY Qty: 90 0RF promethazine 25 mg tablet 25 mg PO Q4-6H PRN (Reason: nausea) Qty: 30 2RF Santyl 250 unit/gram ointment 1 applic topical QDAY 30 Days Qty: 90 1RF loperamide 2 mg capsule 2 mg PO DAILY PRN midodrine 5 mg tablet 5 mg PO ONCE amlodipine 5 mg tablet 5 mg PO DAILY insulin glargine [Lantus Solostar U-100 Insulin] 100 unit/mL (3 mL) insulin pen 55 unit SQ HS Qty: 15 2RF atorvastatin 40 mg tablet 40 mg PO HS Qty: 90 3RF (DME) pen needle, diabetic [Comfort EZ Pen [place]] 31 gauge x 5/16 needle See Rx Instructions .Route Qty: 100 2RF Rx Instructions: As directed (DME) BD Insulin Syringe (half unit) 0.3 mL 31 gauge x 5/16 syringe See Rx Instructions .Route Qty: 10 2RF Rx Instructions: As directed isosorbide mononitrate 60 mg tablet extended release 24 hr 60 mg PO DAILY Qty: 90 1RF (DME) blood pressure monitor [Blood Pressure Kit] Kit See Rx Instructions .Route Qty: 1 0RF Rx Instructions: As directed insulin lispro 100 unit/mL insulin pen 14 unit SQ TID Qty: 15 2RF duloxetine 30 mg capsule,delayed release(DR/EC) 30 mg PO DAILY Qty: 90 0RF Zyrtec 10 mg capsule 10 mg PO DAILY Qty: 90 0RF carvedilol 6.25 mg tablet 12.5 mg PO BID Rx Instructions: must administer with a meal/food Nurtec ODT 75 mg tablet,disintegrating 75 mg PO DIRECTED PRN (Reason: Headache) Rx Instructions: DISSOLVE ONE TABLET ON THE TONGUE AT ONSET OF MIGRAINE HEADACHE NEEDED Referrals Follow up/Referrals: Francisco Greer APRN [Primary Care Provider] - See instructions Activity Restrictions/Add. Instructions Additional Instructions/Restrictions: Drink plenty of fluids. Take tylenol or ibuprofen for pain or fever. Take the medications as directed. Follow up with your regular doctor. GO TO THE ER FOR ANY WORSENING SYMPTOMS Clinical Impressions Clinical Impression: Sinusitis Instructions Patient Instructions: Sinusitis, DI for Sinusitis Discharge ED Provider: Yuri Junior [facility] HPI General Stated complaint: cough;runny nose Mode of Arrival: Ambulatory Source of Information: Spouse Limitations: No Limitations Time Seen by Provider: 03/15/23 18:10 Description of Symptoms (Recalled from Triage Doc. by RN): PATIENT C/O RUNNY NOSE, SNEEZING, COUGH, AND EAR PAIN SINCE THURSDAY HEENT Symptoms (Recalled from RN notes): Yes Resp Symptoms (Recalled from RN notes): Yes Skin Symptoms (Recalled from RN notes): No MS Symptoms (Recalled from RN notes): No Functional Status (Recalled from RN notes): WNL History of Present Illness Provider Complaint: She states that she has had sinus congestion, runny nose, ear pain for the past 3 days. Related Data Home Medications Medication Instructions Recorded Confirmed rimegepant 75 mg disintegrating 75 mg PO DIRECTED PRN Headache 08/07/22 03/04/23 tablet (Nurtec ODT) carvedilol 6.25 mg tablet 12.5 mg PO BID htn 09/04/22 03/04/23 amlodipine 5 mg tablet 5 mg PO DAILY 02/13/23 03/04/23 loperamide 2 mg capsule 2 mg PO DAILY PRN 02/13/23 03/04/23 midodrine 5 mg tablet 5 mg PO ONCE 02/13/23 03/04/23 Previous Rx's Medication Instructions Recorded aspirin 81 mg tablet,delayed 81 mg PO DAILY antiplatelet #90 10/05/20 release tabs atorvastatin 40 mg tablet 40 mg PO HS Cholesterol #90 tabs 11/25/21 collagenase clostridium histo. 250 1 applic topical QDAY wound care 09/17/22 unit/gram topical ointment (Santyl) 30 d
[2023-03-15 18:19] VITALS: BP 149/75; PULSE 99; RESP 20; TEMP 36.7; O2SAT 97
== END 2023-03-15 18:25 | disposition home or self-care (01) ==
PROVIDERS: Emergency Provider Nurse Practitioner Family; PCP Nurse Practitioner Family
DX: J01.90 Acute sinusitis, unspecified (principal); J02.9 Acute pharyngitis, unspecified; E11.628 Type 2 diabetes mellitus with other skin complications; G47.33 Obstructive sleep apnea (adult) (pediatric); E78.5 Hyperlipidemia, unspecified; K21.9 Gastro-esophageal reflux disease without esophagitis; E11.22 Type 2 diabetes mellitus with diabetic chronic kidney disease; I20.8 Other forms of angina pectoris; F41.9 Anxiety disorder, unspecified; F32.A Depression, unspecified; J30.9 Allergic rhinitis, unspecified; M19.91 Primary osteoarthritis, unspecified site; Z89.512 Acquired absence of left leg below knee; Z89.431 Acquired absence of right foot; Z87.891 Personal history of nicotine dependence; Z79.4 Long term (current) use of insulin; N18.9 Chronic kidney disease, unspecified; I12.9 Hypertensive chronic kidney disease with stage 1 through stage 4 chronic kidney disease, or unspecified chronic kidney disease
CPT/HCPCS: 99212; 99214; G0463

== ENCOUNTER 2023-04-30 14:30 | Emergency (ER) | payer MEDICARE, SELFPAY ==
[2023-04-30 14:40] VITALS: BP 115/67; PULSE 71; RESP 18; O2SAT 97; BMI 32.4
--- NOTE | 2023-04-30 14:42 | EXP.UTC ---
Discharge Plan Disposition Patient Disposition: Home, Self-Care Prescriptions Prescriptions: New doxycycline hyclate [doxycycline hyclate] 100 mg capsule 100 mg PO Q12 10 Days Qty: 20 0RF benzonatate [benzonatate] 100 mg capsule 100 mg PO BID PRN (Reason: cough) Qty: 30 0RF No Action aspirin 81 mg tablet,delayed release (DR/EC) 81 mg PO DAILY Qty: 90 0RF Santyl 250 unit/gram ointment 1 applic topical QDAY 30 Days Qty: 90 1RF loperamide 2 mg capsule 2 mg PO DAILY PRN midodrine 5 mg tablet 5 mg PO ONCE amlodipine 5 mg tablet 5 mg PO DAILY insulin glargine [Lantus Solostar U-100 Insulin] 100 unit/mL (3 mL) insulin pen 55 unit SQ HS Qty: 15 2RF atorvastatin 40 mg tablet 40 mg PO HS Qty: 90 3RF (DME) pen needle, diabetic [Comfort EZ Pen [place]] 31 gauge x 5/16 needle See Rx Instructions .Route Qty: 100 2RF Rx Instructions: As directed (DME) BD Insulin Syringe (half unit) 0.3 mL 31 gauge x 5/16 syringe See Rx Instructions .Route Qty: 10 2RF Rx Instructions: As directed isosorbide mononitrate 60 mg tablet extended release 24 hr 60 mg PO DAILY Qty: 90 1RF (DME) blood pressure monitor [Blood Pressure Kit] Kit See Rx Instructions .Route Qty: 1 0RF Rx Instructions: As directed insulin lispro 100 unit/mL insulin pen 14 unit SQ TID Qty: 15 2RF duloxetine 30 mg capsule,delayed release(DR/EC) 30 mg PO DAILY Qty: 90 0RF Zyrtec 10 mg capsule 10 mg PO DAILY Qty: 90 0RF carvedilol 6.25 mg tablet 12.5 mg PO BID Rx Instructions: must administer with a meal/food Nurtec ODT 75 mg tablet,disintegrating 75 mg PO DIRECTED PRN (Reason: Headache) Rx Instructions: DISSOLVE ONE TABLET ON THE TONGUE AT ONSET OF MIGRAINE HEADACHE NEEDED Referrals Follow up/Referrals: Edgar Nguyen MD [Primary Care Provider] - See instructions Activity Restrictions/Add. Instructions Additional Instructions/Restrictions: Take tylenol for pain or fever. Take the medications as directed. Follow up with your regular doctor. GO TO THE ER FOR ANY WORSENING SYMPTOMS Clinical Impressions Clinical Impression: Sinusitis, Acute viral syndrome Instructions Patient Instructions: DI for Sinusitis, DI for Viral Syndrome Discharge ED Provider: Yuri Junior [facility] [place] HPI General Stated complaint: sore throat and ear pain Time Seen by Provider: 04/30/23 14:42 History of Present Illness Provider Complaint: She states that for the past 4 days she has had worsening sore throat and sinus congestion. She has had chills but she denies fever. She has a history of being a hemodialysis patient from ESRD. Related Data Home Medications Medication Instructions Recorded Confirmed rimegepant 75 mg disintegrating 75 mg PO DIRECTED PRN Headache 08/07/22 03/18/23 tablet (Nurtec ODT) carvedilol 6.25 mg tablet 12.5 mg PO BID htn 09/04/22 03/18/23 amlodipine 5 mg tablet 5 mg PO DAILY 02/13/23 03/18/23 loperamide 2 mg capsule 2 mg PO DAILY PRN 02/13/23 03/18/23 midodrine 5 mg tablet 5 mg PO ONCE 02/13/23 03/18/23 Previous Rx's Medication Instructions Recorded aspirin 81 mg tablet,delayed 81 mg PO DAILY antiplatelet #90 10/05/20 release tabs atorvastatin 40 mg tablet 40 mg PO HS Cholesterol #90 tabs 11/25/21 collagenase clostridium histo. 250 1 applic topical QDAY wound care 09/17/22 unit/gram topical ointment (Santyl) 30 days #90 grams insulin syr/ndl U100 half maged 0.3 #10 ea 09/17/22 mL 31 gauge x 5/16 (BD Insulin Syringe Ultra-Fine (half unit)) pen needle, diabetic 31 gauge x #100 09/17/22 5/16 (Comfort EZ Pen [place]) isosorbide mononitrate 60 mg 60 mg PO DAILY Heart disease #90 10/09/22 tablet,extended release 24 hr tabs blood pressure monitor (Blood #1 02/06/23 Pressure Kit) insulin glargine 100 unit/mL (3 55 unit (0.55 mL) SQ HS #15 mL 02/13/23 mL) subcutaneous pen (Lantus Solos
[2023-04-30 15:40] VITALS: BP 115/67; PULSE 71; RESP 18; TEMP 36.8; O2SAT 97
== END 2023-04-30 15:40 | disposition home or self-care (01) ==
PROVIDERS: Emergency Provider Nurse Practitioner Family; PCP Emergency Medicine
DX: J01.90 Acute sinusitis, unspecified (principal); B34.9 Viral infection, unspecified; N18.6 End stage renal disease; E11.9 Type 2 diabetes mellitus without complications; K21.9 Gastro-esophageal reflux disease without esophagitis; I12.0 Hypertensive chronic kidney disease with stage 5 chronic kidney disease or end stage renal disease; E78.5 Hyperlipidemia, unspecified; G47.33 Obstructive sleep apnea (adult) (pediatric); F41.9 Anxiety disorder, unspecified; F32.A Depression, unspecified; K58.9 Irritable bowel syndrome, unspecified; Z79.4 Long term (current) use of insulin; Z99.2 Dependence on renal dialysis
CPT/HCPCS: 87635; 99212; 99214; G0463

== ENCOUNTER 2023-05-10 15:08 | Emergency (ER) | payer MEDICARE, SELFPAY ==
[2023-05-10 15:09] VITALS: BP 176/87; PULSE 84; RESP 20; TEMP 36.7; O2SAT 98; BMI 32.4
[2023-05-10 15:30] VITALS: BP 184/91; PULSE 73; O2SAT 95
--- NOTE | 2023-05-10 15:30 | HMH.EDGENADL ---
Discharge Plan Disposition Patient Disposition: Home, Self-Care Prescriptions Prescriptions: New ondansetron 4 mg tablet,disintegrating 4 mg PO Q6H PRN (Reason: nausea and vomiting) 5 Days Qty: 20 0RF No Action aspirin 81 mg tablet,delayed release (DR/EC) 81 mg PO DAILY Qty: 90 0RF Santyl 250 unit/gram ointment 1 applic topical QDAY 30 Days Qty: 90 1RF loperamide 2 mg capsule 2 mg PO DAILY PRN midodrine 5 mg tablet 5 mg PO ONCE amlodipine 5 mg tablet 5 mg PO DAILY insulin glargine [Lantus Solostar U-100 Insulin] 100 unit/mL (3 mL) insulin pen 55 unit SQ HS Qty: 15 2RF atorvastatin 40 mg tablet 40 mg PO HS Qty: 90 3RF (DME) pen needle, diabetic [Comfort EZ Pen [place]] 31 gauge x 5/16 needle See Rx Instructions .Route Qty: 100 2RF Rx Instructions: As directed (DME) BD Insulin Syringe (half unit) 0.3 mL 31 gauge x 5/16 syringe See Rx Instructions .Route Qty: 10 2RF Rx Instructions: As directed isosorbide mononitrate 60 mg tablet extended release 24 hr 60 mg PO DAILY Qty: 90 1RF (DME) blood pressure monitor [Blood Pressure Kit] Kit See Rx Instructions .Route Qty: 1 0RF Rx Instructions: As directed insulin lispro 100 unit/mL insulin pen 14 unit SQ TID Qty: 15 2RF duloxetine 30 mg capsule,delayed release(DR/EC) 30 mg PO DAILY Qty: 90 0RF Zyrtec 10 mg capsule 10 mg PO DAILY Qty: 90 0RF carvedilol 6.25 mg tablet 12.5 mg PO BID Rx Instructions: must administer with a meal/food doxycycline hyclate [doxycycline hyclate] 100 mg capsule 100 mg PO Q12 10 Days Qty: 20 0RF benzonatate [benzonatate] 100 mg capsule 100 mg PO BID PRN (Reason: cough) Qty: 30 0RF Nurtec ODT 75 mg tablet,disintegrating 75 mg PO DIRECTED PRN (Reason: Headache) Rx Instructions: DISSOLVE ONE TABLET ON THE TONGUE AT ONSET OF MIGRAINE HEADACHE NEEDED Referrals Follow up/Referrals: Francisco Greer APRN [Primary Care Provider] - See instructions Activity Restrictions/Add. Instructions Additional Instructions/Restrictions: Return with any worsening symptoms otherwise follow-up with primary care doctor as needed. Clinical Impressions Clinical Impression: Headache, Foot ulcer, Nausea & vomiting Discharge ED Provider: Elkin Pitts General Adult HPI General Chief complaint: PAIN Stated complaint: vomiting, MARVIN Time Seen by Provider: 05/10/23 15:13 Mode of Arrival: Family Vehicle Source of Information: Patient Limitations: No Limitations Description of Symptoms (Recalled from ER Triage Doc. by RN): Pt c/o headache, bilateral ear pain, and nausea with bile emesis. She reports it began yesterday although the vomiting began today. She is adiaysis pt and receives tx on , , and which she did go to yesterday. Denies any adb pain or diarrhea. Denies fever or chills. Denies cough or SOA. History of Present Illness HPI narrative: Patient is a 52-year-old female presenting with multiple complaints. Primarily she complains of having some nausea and a headache that is slowly worsened over the last 48 hours, bilateral ear discomfort and she would like to get the wound on the dorsal aspect of her right foot evaluated. She denies any abdominal pain. For me she denies any bloody or bilious emesis. States she has had no abdominal discomfort at all. She has no diarrhea. No fevers or chills. She does state last time she felt like this she had COVID. She denies any neurologic symptoms specifically no sudden onset of her symptoms no changes in vision coordination numbness weakness tingling in her arms or legs etc. She denies any respiratory symptoms. No chest pain or shortness of breath. She is on dialysis with end-stage renal disease currently has a catheter in her right lateral aspect of her chest there is no purulence or erythema or tenderness in this area she is dialyzing Thursday most recentl
--- NOTE | 2023-05-10 15:35 | ECG_ITS ---
APPROVED REPORT Exam: Resting ECG HR:71 bpm ECG Measurements Heart Rate 71 AXES IL 156 P 47 QRSd 89 QRS 16 QT 380 T 29 QTc 402 Conclusion SINUS RHYTHM NONSPECIFIC T-WAVE ABNORMALITY BORDERLINE ECG UNCONFIRMED REPORT Electronically signed by : Wally Teran MD 05/11/2023 19:40:43
--- NOTE | 2023-05-10 15:55 | PC.NURSE ---
covid/flu swab sent to lab
[2023-05-10 16:02] LABS: Coronavirus 19, PCR Not Detected (NotDetected); Influenza A, PCR Not Detected (NotDetected); Influenza B, PCR Not Detected (NotDetected)
[2023-05-10 16:04] LABS: Basophils % 0.3 % (0.1-2.0); Eosinophils # 0.1 K/mm3 (0.0-0.4); Eosinophils % 0.8 % (0.1-12.0); Hematocrit 34.6 % (37.0-47.0); Hemoglobin 11.4 g/dL (12.2-16.2); Lymphocytes # 1.7 K/mm3 (0.7-4.5); Lymphocytes % 15.2 % (10-50); Mean Corpuscular HGB Conc 32.8 g/dL (31.8-35.4); Mean Corpuscular Hemoglobin 26.7 pg (27.0-31.2); Mean Corpuscular Volume 81.4 fl (81-99); Mean Platelet Volume 7.9 fl (7.4-10.4); Monocytes # 0.3 K/mm3 (0.1-1.0); Monocytes % 2.4 % (1.7-9.3); Neutrophils # 9.2 K/mm3 (1.8-7.8); Neutrophils % 81.3 % (37.0-80.0); Platelet Count 347 K/mm3 (142-424); Red Blood Count 4.25 M/mm3 (4.20-5.40); Red Cell Distribution Width 16.4 % (11.5-17.5); White Blood Count 11.4 K/mm3 (4.8-10.8)
[2023-05-10 16:07] LABS: Chloride 101 mmol/L (98-107); Sodium 139 mmol/L (136-145)
[2023-05-10 16:10] LABS: Alanine Aminotransferase 21 U/L (12-78); Albumin Level 3.6 g/dl (3.5-5.0); Albumin/Globulin Ratio 1.1 (1.1-1.8); Alkaline Phosphatase 151 U/L (38-126); Aspartate Amino Transferase 23 U/L (14-36); Bilirubin,Total 0.4 mg/dl (0.2-1.3); Blood Urea Nitrogen 24 mg/dl (7-17); Carbon Dioxide 29 mmol/L (22.0-30.0); Creatinine Clearance Estimated 45 mL/min (50-200); Estimated Glomerular Filt Rate 25 ml/min (>60); GFR (African American) 30 ML/MIN (>60); Globulin 3.4 g/dL (1.3-3.2)
[2023-05-10 16:11] LABS: Calcium 7.9 mg/dl (8.4-10.2); Glucose 112 mg/dl (74-100)
--- NOTE | 2023-05-10 16:20 | PC.NURSE ---
pt medicated per MAR given warm blanket for comfort
--- NOTE | 2023-05-10 16:20 | PC.NURSE ---
Addendum entered by Araceli Chauhan RN 05/10/23 16:35: Correction, lab had initially told staff it was Creatinine that was critical. After chart review, it was actually the potassium that was critical, updated on this. Original Note: Dr. Pitts notified of critical creatinine
[2023-05-10 18:03] VITALS: BP 116/75; PULSE 75; RESP 17; TEMP 36.8; O2SAT 97
== END 2023-05-10 18:20 | disposition home or self-care (01) ==
PROVIDERS: Emergency Provider Student in an Organized Health Care Education/Training Program; PCP Nurse Practitioner Family
DX: R51.9 Headache, unspecified (principal); E87.6 Hypokalemia; E11.621 Type 2 diabetes mellitus with foot ulcer; R11.2 Nausea with vomiting, unspecified; H92.03 Otalgia, bilateral; N18.6 End stage renal disease; I20.89 Other forms of angina pectoris; K21.9 Gastro-esophageal reflux disease without esophagitis; I12.0 Hypertensive chronic kidney disease with stage 5 chronic kidney disease or end stage renal disease; E78.5 Hyperlipidemia, unspecified; G47.33 Obstructive sleep apnea (adult) (pediatric); I50.9 Heart failure, unspecified; E11.3599 Type 2 diabetes mellitus with proliferative diabetic retinopathy without macular edema, unspecified eye; F41.9 Anxiety disorder, unspecified; F32.A Depression, unspecified; Z89.512 Acquired absence of left leg below knee; Z89.421 Acquired absence of other right toe(s); Z79.4 Long term (current) use of insulin; Z99.2 Dependence on renal dialysis; L97.519 Non-pressure chronic ulcer of other part of right foot with unspecified severity; I11.0 Hypertensive heart disease with heart failure
CPT/HCPCS: 80053; 85025; 87636; 93005; 96374; 96375; 99284

== ENCOUNTER → 2023-05-11 10:29 | Outpatient (CLI) | payer MEDICARE, SELFPAY ==
--- NOTE | 2023-05-11 10:57 | XR_ITS ---
FINAL REPORT CLINICAL HISTORY: Wound/ Check for osteomyelitis FINDINGS: RIGHT FOOT 3 views of the right foot were obtained. There are postoperative changes of transmetatarsal amputation. Mild degenerative changes are seen. There is no definite evidence of bony erosion. There is no acute fracture or dislocation. Vascular calcifications are noted. Soft tissues are unremarkable. IMPRESSION: No acute bony abnormality or evidence of osteomyelitis. Reviewed, Interpreted and Dictated by Saroj Barajas III, MD Transcribed by Danitza Viramontes Authenticated and . [facility]
[2023-05-11 14:14] LABS: Erythrocyte Sedimentation Rate 94 mm/hr (0-30)
[2023-05-12 12:52] LABS: C-Reactive Protein 13.3 mg/L (0-4)
== END ==
PROVIDERS: PCP Nurse Practitioner Family; Visit Provider Podiatrist
DX: M86.9 Osteomyelitis, unspecified; S91.301A Unspecified open wound, right foot, initial encounter
CPT/HCPCS: 36415; 73630; 85651; 86140; 87070; 87205

== ENCOUNTER → 2023-05-12 07:16 | Outpatient (CLI) | payer MEDICARE, SELFPAY ==
--- OUTSIDE RECORDS SUMMARY | 2023-05-12 07:22 | XMS_ITS ---
Author Name Carla Rojas Address [address] [place] [address] Phone [phone] Organization [facility] e, NA DOCUMENT DISCLAIMER Multiple document versions may exist, please be sure you review the latest version. The information in the [facility] Emergency Department Progress Note Document represents a providers documented clinical note containing certain health and medical information. It may not contain the complete medical history for the patient and should be independently verified. The represented time in the document is Eastern Time PROVIDER ROUNDING NOTE BASIC Patient:?Carla?Kwadwo,?1970,?52y,?F Dialysis?Location:?[facility]??-?ROLAN Attending?[employer] Worker:?Nataliya?Nini?Payton Service?Date:?03/05/2023 Service?Provider:?Carla?Crystal,?JAPANESE INTERPRETER I?met?face?to?face?with?the?patient?today. OVERVIEW The?patient?presented?with?ESRD?on?dialysis Primary?cause?of?renal?failure:?Type?1?diabetes?mellitus&#16 0;with?other?diabetic?kidney?complication LAST?HOSPITALIZATION Discharge?Diagnosis:?I31.39?Other?pericardial?effusion?(noninflammatory) Admission?Date?12/18/22 Discharge?Date?12/23/22 DIALYSIS?PRESCRIPTION ??IHD?3x?Week?Start?date:?01/08/23 ??Dialyzer:?180NRe?Optiflux ??BFR:?400 ??DFR:?Autoflow?2 ??Potassium:?2.0 ??Sodium:?138 ??EDW:?94.5 ??Duration:?3:45 ??Calcium:?2.5 ??Bicarb:?36 ??Rx?updated?on:?01/07/2023 TREATMENT?ASSESSMENT Blood?pressure?controlled.?No?changes?indicated.? BP?Sit?Pre ??03/03/2023:?135/70 ??02/28/2023:?134/69 ??02/26/2023:?124/70 BP?Stand?Post ??03/03/2023:?117/63 ??02/26/2023:?155/80 BP?Sit?Post ??03/03/2023:?115/68 ??02/28/2023:?151/84 ??02/26/2023:?169/93 Tx?Duration ??03/03/2023:?3:48 ??02/28/2023:?3:49 ??02/26/2023:?3:49 Missed?Treatments 1?-?last?30?days 2?-?last?60?days 7/4?-?recent FLUID?ASSESSMENT Fluid?status?acceptable.?Interdialytic?weight?gain?acceptable.?No ?changes?indicated.? EDW?(kg) ??03/03/2023:?94.5 ??02/28/2023:?94.5 ??02/26/2023:?94.5 Weight?Pre?(kg) ??03/03/2023:?96.6 ??02/28/2023:?95.0 ??02/26/2023:?93.6 Weight?Post?(kg) ??03/03/2023:?94.2 ??02/28/2023:?93.3 ??02/26/2023:?93.5 PWV?(kg) ??03/03/2023:?-0.4 ??02/28/2023:?-1.3 ??02/26/2023:?-1.0 UF?Rate?(mL/kg/hr) ??03/03/2023:?6.7 ??02/28/2023:?4.8 ??02/26/2023:?0.3 ADEQUACY?ASSESSMENT spKt/V,?URR ??02/10/2023:?1.41,?71.0 ??02/07/2023:?1.49,?74.0 ??01/06/2023:?1.73,?77.0 ?? Urine?Cr?Clearance ??11/25/2022:?10.3 ACCESS?ASSESSMENT ??Access?Type:?CVCatheter ??Access?SubType:?Tunneled ??Access?Status:?Active?(In?Use)?-?10/11/2022 ??Access?Location:?Chest ??Placed:?
--- OUTSIDE RECORDS SUMMARY | 2023-05-12 07:22 | XMS_ITS ---
Author Name Nataliya Mcclendon Address [address] [place] [address] Phone [phone] Organization [facility] e, NA DOCUMENT DISCLAIMER Multiple document versions may exist, please be sure you review the latest version. The information in the [facility] Progress Note Document represents a providers documented clinical note containing certain health and medical information. It may not contain the complete medical history for the patient and should be independently verified. The represented time in the document is Eastern Time PROVIDER ROUNDING NOTE BASIC Provider?Rounding?Note?Basic?-?Carla?Kwadwo?-?Chart?#: [id number] Method?of?Interaction:?Face?to?face Date?of?Interaction:?01/07/2023 Patient?is?stable ?-?Medications?and?labs?reviewed.? Patient?issues?include: Stable. Prior?Treatment:?01/06/2023? Dialyzer:?180NRe?Optiflux? Dialysate:?2.0?K,?2.5 Ca,?1.0?Mg,?100?Dextrose?(G2251)? Actual?Time:?03:52?Prescribed?Time:?3:45? Avg?BFR:?400?Avg?DFR:?800? Wt?Gain?(kg):?3.30?EDW?(kg):?95.00? post?Wt?(kg):? HOME?MEDICATIONS ?Acetaminophen?Pain?Relief?(acetaminophen)??500?mg,?oral,&#1 60;2?tablet?three?times?a?day ?amlodipine?(amlodipine)??10?mg,?oral,?1?tablet?once a?day ?aspirin?(aspirin)??81?mg,?oral,?1?tablet?once?a day ?atorvastatin?(atorvastatin)??40?mg,?oral,?1?tablet?once?a?day ?carvedilol?(carvedilol)??12.5?mg,?oral,?1?tablet?twice?a?day ?duloxetine?(duloxetine)??30?mg,?oral,?1?capsule?once a?day ?Humalog?KwikPen?Insulin?(insulin?lispro)??100?unit/mL,&#160 ;subQ,??[per?sliding?scale] ?hydralazine?(hydralazine)??25?mg,?oral,?1?tablet?every?six?hours??[for?SBP>165] ?insulin?glargine?(insulin?glargine)??100?unit/mL,?subQ, 40?unit?once?a?day ?isosorbide?mononitrate?tablet?()??60mg,?,?1?tablet once?a?day ?lidocaine?(lidocaine)??5%,?top,?1?patch?once?a?da y??[to?upper?back?as?needed?for?pain] ?Miralax?(polyethylene?glycol?3350)??17?gram/dose,?oral, 17?gram?once?a?day ?promethazine?(promethazine)??25?mg,?oral,?1?tablet?shakeel ry?four?hours??[for?nausea/vomiting] ?ProMod?Protein?(protein?supplement)??,?oral,?30?ml twice?a?day ?sucralfate?(sucralfate)??1?gram,?oral,?1?tablet?twice a?day ?Unisom?SleepGels?(diphenhydramine?hcl)??50?mg,?oral,?1?capsule?at?bedtime Send?Alerts?To:?Nurse~Clinical?Manager Strategy Alerts 24?hour?urine?collection?for?Urea?and?Creatinine?Clearance ONLY?please Ziad?W?Nini?Payton,? END OF DOCUMENT
--- OUTSIDE RECORDS SUMMARY | 2023-05-12 07:22 | XMS_ITS ---
Author Name Carla Rojas Address [address] [place] [address] Phone [phone] Organization [facility] e, NA DOCUMENT DISCLAIMER Multiple document versions may exist, please be sure you review the latest version. The information in the [facility] Progress Note Document represents a providers documented clinical note containing certain health and medical information. It may not contain the complete medical history for the patient and should be independently verified. The represented time in the document is Eastern Time PROVIDER ROUNDING NOTE BASIC Provider?Rounding?Note?Basic?-?Carla?Burkett?-?Chart?#: [id number] Method?of?Interaction:?Patient?not?seen Date?of?Interaction:?12/09/2022 Records?/?lab?review?only Reason:??patient?missed?treatment Patient?is?stable ?-?Medications?and?labs?reviewed.? Patient?issues?include: Stable. Prior?Treatment:?12/16/2022? Dialyzer:?180NRe?Optiflux? Dialysate:?2.0?K,?2.5 Ca,?1.0?Mg,?100?Dextrose?(N2251)? Actual?Time:?03:39?Prescribed?Time:?3:45? Avg?BFR:?400?Avg?DFR:?800? Wt?Gain?(kg):?4.20?EDW?(kg):?95? post?Wt?(kg):? HOME?MEDICATIONS ?Acetaminophen?Pain?Relief?(acetaminophen)??500?mg,?oral,&#1 60;2?tablet?three?times?a?day ?amlodipine?(amlodipine)??10?mg,?oral,?1?tablet?once a?day ?aspirin?(aspirin)??81?mg,?oral,?1?tablet?once?a day ?atorvastatin?(atorvastatin)??40?mg,?oral,?1?tablet?once?a?day ?carvedilol?(carvedilol)??12.5?mg,?oral,?1?tablet?twice?a?day ?duloxetine?(duloxetine)??30?mg,?oral,?1?capsule?once a?day ?Humalog?KwikPen?Insulin?(insulin?lispro)??100?unit/mL,&#160 ;subQ,??[per?sliding?scale] ?hydralazine?(hydralazine)??25?mg,?oral,?1?tablet?every?six?hours??[for?SBP>165] ?insulin?glargine?(insulin?glargine)??100?unit/mL,?subQ, 40?unit?once?a?day ?isosorbide?mononitrate?tablet?()??60mg,?,?1?tablet once?a?day ?lidocaine?(lidocaine)??5%,?top,?1?patch?once?a?da y??[to?upper?back?as?needed?for?pain] ?Miralax?(polyethylene?glycol?3350)??17?gram/dose,?oral, 17?gram?once?a?day ?promethazine?(promethazine)??25?mg,?oral,?1?tablet?shakeel ry?four?hours??[for?nausea/vomiting] ?ProMod?Protein?(protein?supplement)??,?oral,?30?ml twice?a?day ?sucralfate?(sucralfate)??1?gram,?oral,?1?tablet?twice a?day ?Unisom?SleepGels?(diphenhydramine?hcl)??50?mg,?oral,?1?capsule?at?bedtime Carla?L?Crystal,?SPECIAL EDUCATION EDUCATIONAL ASSISTANT END OF DOCUMENT
--- OUTSIDE RECORDS SUMMARY | 2023-05-12 07:22 | XMS_ITS ---
Author Name Carla Rojas Address [address] [place] [address] Phone [phone] Organization [facility] e, NA DOCUMENT DISCLAIMER Multiple document versions may exist, please be sure you review the latest version. The information in the [facility] Progress Note Document represents a providers documented clinical note containing certain health and medical information. It may not contain the complete medical history for the patient and should be independently verified. The represented time in the document is Eastern Time PROVIDER ROUNDING NOTE BASIC Patient:?Carla?Kwadwo,?1970,?52y,?F Dialysis?Location:?[facility]??-?ROLAN Attending?Process Owner:?Nataliya?Nini?Payton Service?Date:?03/03/2023 Service?Provider:?Carla?Crystal,?FORMS DESIGNER I?met?face?to?face?with?the?patient?today. 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 LAST?HOSPITALIZATION Discharge?Diagnosis:?I31.39?Other?pericardial?effusion?(noninflammatory) Admission?Date?12/18/22 Discharge?Date?12/23/22 DIALYSIS?PRESCRIPTION ??IHD?3x?Week?Start?date:?01/08/23 ??Dialyzer:?180NRe?Optiflux ??BFR:?400 ??DFR:?Autoflow?2 ??Potassium:?2.0 ??Sodium:?138 ??EDW:?94.5 ??Duration:?3:45 ??Calcium:?2.5 ??Bicarb:?36 ??Rx?updated?on:?01/07/2023 TREATMENT?ASSESSMENT Blood?pressure?controlled.?No?changes?indicated.? BP?Sit?Pre ??02/28/2023:?134/69 ??02/26/2023:?124/70 ??02/24/2023:?152/81 BP?Stand?Post ??02/26/2023:?155/80 BP?Sit?Post ??02/28/2023:?151/84 ??02/26/2023:?169/93 ??02/24/2023:?117/61 Tx?Duration ??02/28/2023:?3:49 ??02/26/2023:?3:49 ??02/24/2023:?3:54 Missed?Treatments 1?-?last?30?days 2?-?last?60?days 7/4?-?recent FLUID?ASSESSMENT Fluid?status?acceptable.?Interdialytic?weight?gain?acceptable.?No ?changes?indicated.? EDW?(kg) ??02/28/2023:?94.5 ??02/26/2023:?94.5 ??02/24/2023:?94.5 Weight?Pre?(kg) ??02/28/2023:?95.0 ??02/26/2023:?93.6 ??02/24/2023:?96.5 Weight?Post?(kg) ??02/28/2023:?93.3 ??02/26/2023:?93.5 ??02/24/2023:?97.3 PWV?(kg) ??02/28/2023:?-1.3 ??02/26/2023:?-1.0 ??02/24/2023:?2.8 UF?Rate?(mL/kg/hr) ??02/28/2023:?4.8 ??02/26/2023:?0.3 ??02/24/2023:?-2.1 ADEQUACY?ASSESSMENT Adequacy?target?met.?Prescription?compliance?acceptable.?No?changes?indicated.? spKt/V,?URR ??02/10/2023:?1.41,?71.0 ??02/07/2023:?1.49,?74.0 ??01/06/2023:?1.73,?77.0 ?? Urine?Cr?Clearance ??11/25/2022:?10.3 ACCESS?ASSESSMENT ??Access?Type:?CVCatheter ??Access?SubType:?Tunn
--- OUTSIDE RECORDS SUMMARY | 2023-05-12 07:22 | XMS_ITS ---
Author Name Nataliya Mcclendon Address [address] [place] [address] Phone [phone] Organization [facility] e, NA DOCUMENT DISCLAIMER Multiple document versions may exist, please be sure you review the latest version. The information in the [facility] Progress Note Document represents a providers documented clinical note containing certain health and medical information. It may not contain the complete medical history for the patient and should be independently verified. The represented time in the document is Eastern Time PROVIDER ROUNDING NOTE COMP Provider?Rounding?Note?Comp?-?Carla?Kwadwo?-?Chart?#: [id number] Method?of?Interaction:?Face?to?face Date?of?Interaction:?02/26/2023 Patient?is?stable ?-?Optimal?weight?addressed?with?patient?and?staff.? ?-?Medications?and?labs?reviewed.? Patient?issues?include: Stable Prior?Treatment:?02/24/2023? Dialyzer:?180NRe?Optiflux? Dialysate:?2.0?K,?2.5 Ca,?1.0?Mg,?100?Dextrose?(G2251)? Actual?Time:?03:54?Prescribed?Time:?3:45? Avg?BFR:?400?Avg?DFR:?800? Wt?Gain?(kg):?1.85?EDW?(kg):?94.50? post?Wt?(kg):? ADEQUACY ?spKt/V?eKdrt/V?OLC?(Del)?spKtv?1.41?02/10/23 ???1.80 ?02/10/23 ???1.80?02/24/23 ???1.49?02/07/23 ???1.92 ?02/07/23 ???1.14?02/21/23 ???1.73?01/06/23 ???2.10 ?01/06/23 ???1.66?02/19/23 ?URR?Potassium,?Serum?&#160 ;?Bicarbonate?Creatinine?%?mEq/L?mEq/L?&#16 0;?mg/dL ?71?02/10/23 ?? 4.0?02/17/23 ???27?02/17/23 ???3.26?02/17/23 ???74?02/07/23 ?? 5.3?01/20/23 ???23?01/20/23
--- OUTSIDE RECORDS SUMMARY | 2023-05-12 07:22 | XMS_ITS ---
Author Name Leilani Rojasa Address [address] [place] [address] Phone [phone] Organization [facility] e, NA DOCUMENT DISCLAIMER Multiple document versions may exist, please be sure you review the latest version. The information in the [facility] Progress Note Document represents a providers documented clinical note containing certain health and medical information. It may not contain the complete medical history for the patient and should be independently verified. The represented time in the document is Eastern Time PROVIDER ROUNDING NOTE BASIC Patient:?Carla?Kwadwo,?1970,?52y,?F Dialysis?Location:?[facility]??[facility]??-?ROLAN Attending?Barbering Teacher:?Nataliya?Nini?Payton Service?Date:?02/10/2023 Service?Provider:?Carla?Crystal,?ENGRAVER BLOCK I?met?face?to?face?with?the?patient?today. 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 LAST?HOSPITALIZATION Discharge?Diagnosis:?I31.39?Other?pericardial?effusion?(noninflammatory) Admission?Date?12/18/22 Discharge?Date?12/23/22 DIALYSIS?PRESCRIPTION ??IHD?3x?Week?Start?date:?01/08/23 ??Dialyzer:?180NRe?Optiflux ??BFR:?400 ??DFR:?Autoflow?2 ??Potassium:?2.0 ??Sodium:?138 ??EDW:?94.5 ??Duration:?3:45 ??Calcium:?2.5 ??Bicarb:?36 ??Rx?updated?on:?01/07/2023 TREATMENT?ASSESSMENT Blood?pressure?controlled.?No?changes?indicated.? BP?Stand?Pre ??02/07/2023:?151/81 BP?Sit?Pre ??02/07/2023:?145/74 ??02/05/2023:?160/87 ??02/03/2023:?181/96 BP?Stand?Post ??02/07/2023:?126/73 BP?Sit?Post ??02/07/2023:?151/88 ??02/05/2023:?159/58 ??02/03/2023:?130/69 Tx?Duration ??02/07/2023:?3:56 ??02/05/2023:?2:10 ??02/03/2023:?1:57 Missed?Treatments 2?-?last?30?days 2?-?last?60?days 7/4?-?recent FLUID?ASSESSMENT Fluid?status?acceptable.?Interdialytic?weight?gain?acceptable.?No ?changes?indicated.? EDW?(kg) ??02/07/2023:?94.5 ??02/05/2023:?94.5 ??02/03/2023:?94.5 Weight?Pre?(kg) ??02/07/2023:?94.8 ??02/05/2023:?95.7 ??02/03/2023:?97.2 Weight?Post?(kg) ??02/07/2023:?94.4 ??02/05/2023:?94.8 ??02/03/2023:?95.7 PWV?(kg) ??02/07/2023:?-0.2 ??02/05/2023:?0.3 ??02/03/2023:?1.2 UF?Rate?(mL/kg/hr) ??02/07/2023:?1.2 ??02/05/2023:?4.4 ??02/03/2023:?8.1 ADEQUACY?ASSESSMENT Adequacy?target?met.?Prescription?compliance?acceptable.?No?changes?indicated.? spKt/V,?URR ??01/06/2023:?1.73,?77.0 ??12/25/2022:?1.33,?70.0 ??11/25/2022:?1.41,?70.0 ?? Urine?Cr?Clearance ??11/25/2022:?10.3 ACCESS?ASSESSMENT ??Access?
--- OUTSIDE RECORDS SUMMARY | 2023-05-12 07:22 | XMS_ITS ---
Author Name Carla Rojas Address [address] [place] [address] Phone [phone] Organization [facility] e, NA DOCUMENT DISCLAIMER Multiple document versions may exist, please be sure you review the latest version. The information in the [facility] Progress Note Document represents a providers documented clinical note containing certain health and medical information. It may not contain the complete medical history for the patient and should be independently verified. The represented time in the document is Eastern Time PROVIDER ROUNDING NOTE BASIC Patient:?Carla?Kwadwo,?1970,?52y,?F Dialysis?Location:?[facility]??[facility]??-?ROLAN Attending?Park Attendant:?Nataliya?Nini?Payton Service?Date:?02/19/2023 Service?Provider:?Carla?Crystal,?ROAD SERVICE LOCKSMITH I?met?face?to?face?with?the?patient?today. 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 LAST?HOSPITALIZATION Discharge?Diagnosis:?I31.39?Other?pericardial?effusion?(noninflammatory) Admission?Date?12/18/22 Discharge?Date?12/23/22 DIALYSIS?PRESCRIPTION ??IHD?3x?Week?Start?date:?01/08/23 ??Dialyzer:?180NRe?Optiflux ??BFR:?400 ??DFR:?Autoflow?2 ??Potassium:?2.0 ??Sodium:?138 ??EDW:?94.5 ??Duration:?3:45 ??Calcium:?2.5 ??Bicarb:?36 ??Rx?updated?on:?01/07/2023 TREATMENT?ASSESSMENT Blood?pressure?controlled.?No?changes?indicated.? BP?Sit?Pre ??02/17/2023:?132/70 ??02/14/2023:?134/73 ??02/12/2023:?103/56 BP?Sit?Post ??02/17/2023:?142/79 ??02/14/2023:?144/89 ??02/12/2023:?140/72 Tx?Duration ??02/17/2023:?3:51 ??02/14/2023:?3:38 ??02/12/2023:?3:46 Missed?Treatments 2?-?last?30?days 2?-?last?60?days 7/4?-?recent FLUID?ASSESSMENT Fluid?status?acceptable.?Interdialytic?weight?gain?acceptable.?No ?changes?indicated.? EDW?(kg) ??02/17/2023:?94.5 ??02/14/2023:?94.5 ??02/12/2023:?94.5 Weight?Pre?(kg) ??02/17/2023:?96.7 ??02/14/2023:?96.1 ??02/12/2023:?95.3 Weight?Post?(kg) ??02/17/2023:?94.4 ??02/14/2023:?94.3 ??02/12/2023:?94.1 PWV?(kg) ??02/17/2023:?-0.1 ??02/14/2023:?-0.3 ??02/12/2023:?-0.4 UF?Rate?(mL/kg/hr) ??02/17/2023:?6.2 ??02/14/2023:?5.4 ??02/12/2023:?3.2 ADEQUACY?ASSESSMENT Adequacy?target?met.?Prescription?compliance?acceptable.?No?changes?indicated.? spKt/V,?URR ??02/10/2023:?1.41,?71.0 ??02/07/2023:?1.49,?74.0 ??01/06/2023:?1.73,?77.0 ?? Urine?Cr?Clearance ??11/25/2022:?10.3 ACCESS?ASSESSMENT ??Access?Type:?CVCatheter ??Access?SubType:?Tunneled ??Access?Status:?Active?(In?Use)?-?03
--- OUTSIDE RECORDS SUMMARY | 2023-05-12 07:22 | XMS_ITS ---
Author Name Nataliya Mcclendon Address [address] [place] [address] Phone [phone] Organization [facility] e, NA DOCUMENT DISCLAIMER Multiple document versions may exist, please be sure you review the latest version. The information in the [facility] Progress Note Document represents a providers documented clinical note containing certain health and medical information. It may not contain the complete medical history for the patient and should be independently verified. The represented time in the document is Eastern Time PROVIDER ROUNDING NOTE COMP Provider?Rounding?Note?Comp?-?Carla?Kwadwo?-?Chart?#: [id number] Method?of?Interaction:?Face?to?face Date?of?Interaction:?04/28/2023 Patient?is?stable ?-?Optimal?weight?addressed?with?patient?and?staff.? ?-?Medications?and?labs?reviewed.? Patient?issues?include: Stable Prior?Treatment:?04/25/2023? Dialyzer:?180NRe?Optiflux? Dialysate:?2.0?K,?2.5 Ca,?1.0?Mg,?100?Dextrose?(G2251)? Actual?Time:?03:46?Prescribed?Time:?3:45? Avg?BFR:?400?Avg?DFR:?570? Wt?Gain?(kg):?-0.80?EDW?(kg):?94.50? post?Wt?(kg):? ADEQUACY ?spKt/V?eKdrt/V?OLC?(Del)?spKtv?1.44?04/07/23 ???1.25 ?04/07/23 ???1.69?04/25/23 ???1.85?03/10/23 ???2.24 ?03/10/23 ???1.75?04/23/23 ???1.41?02/10/23 ???1.80 ?02/10/23 ???1.34?04/21/23 ?URR?Potassium,?Serum?&#160 ;?Bicarbonate?Creatinine?%?mEq/L?mEq/L?&#16 0;?mg/dL ?71?04/07/23 ?? 4.1?04/21/23 ???25?04/21/23 ???3.07?04/21/23 ???80?03/10/23 ?? 4.4?03/28/23 ???22?03/28/23 ???
--- OUTSIDE RECORDS SUMMARY | 2023-05-12 07:22 | XMS_ITS ---
Author Name Nataliya Mcclendon Address [address] [place] [address] Phone [phone] Organization [facility] e, NA DOCUMENT DISCLAIMER Multiple document versions may exist, please be sure you review the latest version. The information in the [facility] Progress Note Document represents a providers documented clinical note containing certain health and medical information. It may not contain the complete medical history for the patient and should be independently verified. The represented time in the document is Eastern Time PROVIDER ROUNDING NOTE COMP Provider?Rounding?Note?Comp?-?Acrla?Kwadwo?-?Chart?#: [id number] Method?of?Interaction:?Face?to?face Date?of?Interaction:?01/27/2023 Patient?is?stable ?-?Optimal?weight?addressed?with?patient?and?staff.? ?-?Medications?and?labs?reviewed.? Patient?issues?include: Stable Prior?Treatment:?01/24/2023? Dialyzer:?180NRe?Optiflux? Dialysate:?2.0?K,?2.5 Ca,?1.0?Mg,?100?Dextrose?(G2251)? Actual?Time:?03:31?Prescribed?Time:?3:45? Avg?BFR:?400?Avg?DFR:?500? Wt?Gain?(kg):?1.75?EDW?(kg):?94.50? post?Wt?(kg):? ADEQUACY ?spKt/V?eKdrt/V?OLC?(Del)?spKtv?1.73?01/06/23 ???2.10 ?01/06/23 ???1.14?01/24/23 ???1.33?12/25/22 ???2.00 ?11/25/22 ???0.83?01/22/23 ???1.41?11/25/22 ???1.40 ?11/11/22 ???2.05?01/20/23 ?URR?Potassium,?Serum?&#160 ;?Bicarbonate?Creatinine?%?mEq/L?mEq/L?&#16 0;?mg/dL ?77?01/06/23 ?? 5.3?01/20/23 ???23?01/20/23 ???2.58?01/20/23 ???70?12/25/22 ?? 3.2?12/25/22 ???32?12/25/22
--- OUTSIDE RECORDS SUMMARY | 2023-05-12 07:22 | XMS_ITS ---
Author Name Carla Rojas Address [address] [place] [address] Phone [phone] Organization [facility] e, NA DOCUMENT DISCLAIMER Multiple document versions may exist, please be sure you review the latest version. The information in the [facility] Progress Note Document represents a providers documented clinical note containing certain health and medical information. It may not contain the complete medical history for the patient and should be independently verified. The represented time in the document is Eastern Time PROVIDER ROUNDING NOTE BASIC Patient:?Carla?Kwadwo,?1970,?52y,?F Dialysis?Location:?[facility]??[facility]??-?ROLAN Attending?Jet Aircraft Servicer:?Nataliya?Nini?Payton Service?Date:?03/10/2023 Service?Provider:?Carla?Crystal,?ELEMENTARY ART TEACHER I?met?face?to?face?with?the?patient?today. 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 LAST?HOSPITALIZATION Discharge?Diagnosis:?I31.39?Other?pericardial?effusion?(noninflammatory) Admission?Date?12/18/22 Discharge?Date?12/23/22 DIALYSIS?PRESCRIPTION ??IHD?3x?Week?Start?date:?01/08/23 ??Dialyzer:?180NRe?Optiflux ??BFR:?400 ??DFR:?Autoflow?2 ??Potassium:?2.0 ??Sodium:?138 ??EDW:?94.5 ??Duration:?3:45 ??Calcium:?2.5 ??Bicarb:?36 ??Rx?updated?on:?01/07/2023 TREATMENT?ASSESSMENT Blood?pressure?controlled.?No?changes?indicated.? BP?Sit?Pre ??03/07/2023:?100/52 ??03/05/2023:?146/77 ??03/03/2023:?135/70 BP?Stand?Post ??03/07/2023:?109/55 ??03/05/2023:?99/65 ??03/03/2023:?117/63 BP?Sit?Post ??03/07/2023:?137/66 ??03/05/2023:?126/73 ??03/03/2023:?115/68 Tx?Duration ??03/07/2023:?3:44 ??03/05/2023:?3:44 ??03/03/2023:?3:48 Missed?Treatments 0?-?last?30?days 2?-?last?60?days 7/4?-?recent FLUID?ASSESSMENT Fluid?status?acceptable.?Interdialytic?weight?gain?acceptable.?No ?changes?indicated.? EDW?(kg) ??03/07/2023:?94.5 ??03/05/2023:?94.5 ??03/03/2023:?94.5 Weight?Pre?(kg) ??03/07/2023:?96.0 ??03/05/2023:?97.8 ??03/03/2023:?96.6 Weight?Post?(kg) ??03/07/2023:?95.0 ??03/05/2023:?94.1 ??03/03/2023:?94.2 PWV?(kg) ??03/07/2023:?0.5 ??03/05/2023:?-0.4 ??03/03/2023:?-0.4 UF?Rate?(mL/kg/hr) ??03/07/2023:?2.8 ??03/05/2023:?10.4 ??03/03/2023:?6.7 ADEQUACY?ASSESSMENT Adequacy?target?met.?Prescription?compliance?acceptable.?No?changes?indicated.? spKt/V,?URR ??02/10/2023:?1.41,?71.0 ??02/07/2023:?1.49,?74.0 ??01/06/2023:?1.73,?77.0 ?? Urine?Cr?Clearance ??11/25/2022:?10.3 ACCESS?ASSESSMENT ??Ac
--- OUTSIDE RECORDS SUMMARY | 2023-05-12 07:22 | XMS_ITS ---
Author Name Carla Rojas Address [address] [place] [address] Phone [phone] Organization [facility] e, NA DOCUMENT DISCLAIMER Multiple document versions may exist, please be sure you review the latest version. The information in the [facility] Progress Note Document represents a providers documented clinical note containing certain health and medical information. It may not contain the complete medical history for the patient and should be independently verified. The represented time in the document is Eastern Time PROVIDER ROUNDING NOTE BASIC Patient:?Carla?Kwadwo,?1970,?52y,?F Dialysis[facility]-?ROLAN Attending?Paper Core Machine Operator:?Nataliya?Nini?Payton Service?Date:?02/24/2023 Service?Provider:?Carla?Crystal,?CREATIVE ASSISTANT I?met?face?to?face?with?the?patient?today. 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 LAST?HOSPITALIZATION Discharge?Diagnosis:?I31.39?Other?pericardial?effusion?(noninflammatory) Admission?Date?12/18/22 Discharge?Date?12/23/22 DIALYSIS?PRESCRIPTION ??IHD?3x?Week?Start?date:?01/08/23 ??Dialyzer:?180NRe?Optiflux ??BFR:?400 ??DFR:?Autoflow?2 ??Potassium:?2.0 ??Sodium:?138 ??EDW:?94.5 ??Duration:?3:45 ??Calcium:?2.5 ??Bicarb:?36 ??Rx?updated?on:?01/07/2023 TREATMENT?ASSESSMENT Blood?pressure?controlled.?No?changes?indicated.? BP?Sit?Pre ??02/21/2023:?109/67 ??02/19/2023:?140/76 ??02/17/2023:?132/70 BP?Stand?Post ??02/21/2023:?147/79 BP?Sit?Post ??02/21/2023:?174/88 ??02/19/2023:?143/80 ??02/17/2023:?142/79 Tx?Duration ??02/21/2023:?3:53 ??02/19/2023:?3:51 ??02/17/2023:?3:51 Missed?Treatments 2?-?last?30?days 2?-?last?60?days 7/4?-?recent FLUID?ASSESSMENT Fluid?status?acceptable.?Interdialytic?weight?gain?acceptable.?No ?changes?indicated.? EDW?(kg) ??02/21/2023:?94.5 ??02/19/2023:?94.5 ??02/17/2023:?94.5 Weight?Pre?(kg) ??02/21/2023:?95.3 ??02/19/2023:?96.1 ??02/17/2023:?96.7 Weight?Post?(kg) ??02/21/2023:?94.6 ??02/19/2023:?93.8 ??02/17/2023:?94.4 PWV?(kg) ??02/21/2023:?0.1 ??02/19/2023:?-0.8 ??02/17/2023:?-0.1 UF?Rate?(mL/kg/hr) ??02/21/2023:?1.8 ??02/19/2023:?6.4 ??02/17/2023:?6.2 ADEQUACY?ASSESSMENT Adequacy?target?met.?Prescription?compliance?acceptable.?No?changes?indicated.? spKt/V,?URR ??02/10/2023:?1.41,?71.0 ??02/07/2023:?1.49,?74.0 ??01/06/2023:?1.73,?77.0 ?? Urine?Cr?Clearance ??11/25/2022:?10.3 ACCESS?ASSESSMENT ??Access?Type:?CVCatheter ??Access?SubType:?Jana
--- OUTSIDE RECORDS SUMMARY | 2023-05-12 07:22 | XMS_ITS ---
Author Name Nataliya Mcclendon Address [address] [place] [address] Phone [phone] Organization [facility] e, NA DOCUMENT DISCLAIMER Multiple document versions may exist, please be sure you review the latest version. The information in the [facility] Progress Note Document represents a providers documented clinical note containing certain health and medical information. It may not contain the complete medical history for the patient and should be independently verified. The represented time in the document is Eastern Time PROVIDER ROUNDING NOTE COMP Provider?Rounding?Note?Comp?-?Carla?Kwadwo?-?Chart?#: [id number] Method?of?Interaction:?Face?to?face Date?of?Interaction:?04/09/2023 Patient?is?stable ?-?Optimal?weight?addressed?with?patient?and?staff.? ?-?Medications?and?labs?reviewed.? Patient?issues?include: Stable Prior?Treatment:?04/09/2023? Dialyzer:?180NRe?Optiflux? Dialysate:?2.0?K,?2.5 Ca,?1.0?Mg,?100?Dextrose?(G2251)? Actual?Time:?03:51?Prescribed?Time:?3:45? Avg?BFR:?390?Avg?DFR:?740? Wt?Gain?(kg):?2.50?EDW?(kg):?94.50? post?Wt?(kg):? ADEQUACY ?spKt/V?eKdrt/V?OLC?(Del)?spKtv?1.44?04/07/23 ???1.25 ?04/07/23 ???1.65?04/09/23 ???1.85?03/10/23 ???2.24 ?03/10/23 ???1.55?04/07/23 ???1.41?02/10/23 ???1.80 ?02/10/23 ???1.25?04/04/23 ?URR?Potassium,?Serum?&#160 ;?Bicarbonate?Creatinine?%?mEq/L?mEq/L?&#16 0;?mg/dL ?71?04/07/23 ?? 4.4?03/28/23 ???22?03/28/23 ???2.62?03/28/23 ???80?03/10/23 ?? 4.6?03/26/23 ???23?03/26/23
--- OUTSIDE RECORDS SUMMARY | 2023-05-12 07:22 | XMS_ITS ---
Author Name Nataliya Mcclendon Address [address] [place] [address] Phone [phone] Organization [facility] e, NA DOCUMENT DISCLAIMER Multiple document versions may exist, please be sure you review the latest version. The information in the [facility] Progress Note Document represents a providers documented clinical note containing certain health and medical information. It may not contain the complete medical history for the patient and should be independently verified. The represented time in the document is Eastern Time PROVIDER ROUNDING NOTE COMP Provider?Rounding?Note?Comp?-?Carla?Kwadwo?-?Chart?#: [id number] Method?of?Interaction:?Patient?not?seen Date?of?Interaction:?03/24/2023 Records?/?lab?review?only Reason:??Pt?is?no?show Patient?is?stable ?-?Optimal?weight?addressed?with?patient?and?staff.? ?-?Medications?and?labs?reviewed.? Patient?issues?include: Stable Prior?Treatment:?03/21/2023? Dialyzer:?180NRe?Optiflux? Dialysate:?2.0?K,?2.5 Ca,?1.0?Mg,?100?Dextrose?(G2251)? Actual?Time:?03:51?Prescribed?Time:?3:45? Avg?BFR:?400?Avg?DFR:?770? Wt?Gain?(kg):?0.62?EDW?(kg):?94.50? post?Wt?(kg):? ADEQUACY ?spKt/V?eKdrt/V?OLC?(Del)?spKtv?1.85?03/10/23 ???2.24 ?03/10/23 ???1.72?03/21/23 ???1.41?02/10/23 ???1.80 ?02/10/23 ???1.68?03/19/23 ???1.49?02/07/23 ???1.92 ?02/07/23 ???1.97?03/17/23 ?URR?Potassium,?Serum?&#160 ;?Bicarbonate?Creatinine?%?mEq/L?mEq/L?&#16 0;?mg/dL ?80?03/10/23 ?? 4.0?02/17/23 ???27?02/17/23 ???3.26?02/17/23 ???71?
--- OUTSIDE RECORDS SUMMARY | 2023-05-12 07:22 | XMS_ITS ---
Author Name Nataliya Mcclendon Address [address] [place] [address] Phone [phone] Organization [facility] e, NA DOCUMENT DISCLAIMER Multiple document versions may exist, please be sure you review the latest version. The information in the [facility] Progress Note Document represents a providers documented clinical note containing certain health and medical information. It may not contain the complete medical history for the patient and should be independently verified. The represented time in the document is Eastern Time PROVIDER ROUNDING NOTE BASIC Provider?Rounding?Note?Basic?-?Carla?Kwadwo?-?Chart?#: [id number] Method?of?Interaction:?Face?to?face Date?of?Interaction:?05/07/2023 Patient?is?stable ?-?Medications?and?labs?reviewed.? Patient?issues?include: Stable. Prior?Treatment:?05/05/2023? Dialyzer:?180NRe?Optiflux? Dialysate:?2.0?K,?2.5 Ca,?1.0?Mg,?100?Dextrose?(G2251)? Actual?Time:?04:00?Prescribed?Time:?3:45? Avg?BFR:?400?Avg?DFR:?800? Wt?Gain?(kg):?1.60?EDW?(kg):?92.50? post?Wt?(kg):? RRR??CTA??No?LE?edema HOME?MEDICATIONS ?Acetaminophen?Pain?Relief?(acetaminophen)??500?mg,?oral,&#1 60;2?tablet?three?times?a?day ?amlodipine?(amlodipine)??10?mg,?oral,?1?tablet?once a?day ?aspirin?(aspirin)??81?mg,?oral,?1?tablet?once?a day ?atorvastatin?(atorvastatin)??40?mg,?oral,?1?tablet?once?a?day ?carvedilol?(carvedilol)??12.5?mg,?oral,?1?tablet?twice?a?day ?cetirizine?(cetirizine)??10?mg,?oral,?1?tablet?as directed??[at?bedtime] ?doxycycline?hyclate?(doxycycline?hyclate)??100?mg,?oral,&#1 60;1?capsule?twice?a?day??[ORDERED?BY??[facility]?FOR?PATIENT'S?RIGHT?FOOT?WOUNDS] ?duloxetine?(duloxetine)??30?mg,?oral,?1?capsule?once a?day ?ergocalciferol?(vitamin?D2)?(ergocalciferol?(vitamin?d2))?? 1,250?mcg?(50,000?unit),?oral,?1?capsule?once?a?month ?Humalog?KwikPen?Insulin?(insulin?lispro)??100?unit/mL,&#160 ;subQ,??[per?sliding?scale] ?insulin?glargine?(insulin?glargine)??100?unit/mL,?subQ, 40?unit?once?a?day ?isosorbide?mononitrate?(isosorbide?mononitrate)??60?mg,?ora l,?1?tablet?once?a?day ?lidocaine?(lidocaine)??5%,?top,?1?patch?once?a?da y??[to?upper?back?as?needed?for?pain] ?loperamide?(loperamide)??2?mg,?oral,?1?capsule?three&# 160;times?a?day??[para?diarrhea] ?Miralax?(polyethylene?glycol?3350)??17?gram/dose,?oral,&#16 0;17?gram?once?a?day...?There?are?additional?active?jean e?medications?for?this?patient.?Please?view?in?Clinical Summary Ziad?W?Nini?Payton,? END OF DOCUMENT
== END ==
PROVIDERS: PCP Nurse Practitioner Family; Visit Provider Podiatrist
DX: S91.309A Unspecified open wound, unspecified foot, initial encounter (principal)

== ENCOUNTER 2023-06-03 15:28 | Outpatient (RCR) | payer MEDICARE, SELFPAY ==
--- NOTE | 2023-06-03 16:03 | HMH.PTOPWND ---
Rehab Outpt Wound Evaluation Rehab OP Wound Evaluation Start: 06/03/23 15:29 Freq: Status: Active Protocol: Document 06/03/23 15:55 PHONEENA (Rec: 06/03/23 16:03 PHORDONELL [id number]) E-signed By Oli Pike, PT Subjective/History History History This is the initial PT eval for Carla Burkett, 53 yowf who presents with 2 right foot wounds present x ~ 1 mo with unknown reasons for onset. She has significant PMH of DM with neuropathy, CKD, R TMA, L BKA, L JAMIE, R TKA. She reports currently dressing her wounds with santyl and gauze once per day. Subjective Subjective Pt has no c/o pain at this time and no edema is noted. New diagnosis of cancer in past 12 No months? Wound Eval Wound Right Anterior Ankle Wound Type Diabetic Foot Ulcer Is This a Chronic Wound Yes Wound Length (cm) 3.2 Wound Width (cm) 3.8 Wound Depth (cm) 0.1 Wound Bed Appearance Beefy Red,[place] Percentage Granulated (%) 100 Wound Margins Description Well Defined Surrounding Tissue Appearance [place] Drainage Description Serous Drainage Amount Small Primary Dressing Silver Dressing Comment opticell Ag Wound Secondary Dressing Type Gauze Pad,Gauze Roll/Wrap, Elastic Bandage Wound Debridement Method Gauze,Mechanical Wound Debridement Amount of Tissue Minimal Removed Dressing Change Patient Tolerance Tolerated Well Right Lateral Foot Wound Type Diabetic Foot Ulcer Is This a Chronic Wound Yes Wound Length (cm) 1.6 Wound Width (cm) 2.0 Wound Depth (cm) 0.1 Wound Bed Appearance Slough,Eschar Percentage of Slough (%) 25 Percentage of Eschar (Black) (%) 75 Wound Margins Description Well Defined Surrounding Tissue Appearance [place] Drainage Description Serous Drainage Amount Small Wound Topical Solution/Irrigant Saline Irrigant Primary Dressing Silver Dressing Comment opticell Ag Wound Secondary Dressing Type Gauze Pad,Gauze Roll/Wrap, Elastic Bandage Wound Debridement Method Gauze,Mechanical Wound Debridement Amount of Tissue Minimal Removed Wound Debride
== END 2023-06-03 15:29 | disposition home or self-care (01) ==
LOC: PT 15:28
PROVIDERS: PCP Nurse Practitioner Family; Visit Provider Podiatrist
DX: E11.628 Type 2 diabetes mellitus with other skin complications (principal); L97.519 Non-pressure chronic ulcer of other part of right foot with unspecified severity
CPT/HCPCS: 97163

== ENCOUNTER 2023-08-04 15:08 | Emergency (ER) | payer MEDICARE, SELFPAY ==
--- OUTSIDE RECORDS SUMMARY | 2023-08-04 15:12 | XMS_ITS ---
Author Name Carla Rojas Address [address] [place] [address] Phone [phone] Organization [facility] e, NA DOCUMENT DISCLAIMER Multiple document versions may exist, please be sure you review the latest version. The information in the [facility] Progress Note Document represents a providers documented clinical note containing certain health and medical information. It may not contain the complete medical history for the patient and should be independently verified. The represented time in the document is Eastern Time PROVIDER ROUNDING NOTE BASIC Patient:?Carla?Kwadwo,?1970,?53y,?F Dialysis?Location:?[facility]??LAW??-?ROLAN Attending?Starter Cup Powder Mixer:?Nataliya?Nini?Payton Service?Date:?06/25/2023 Service?Provider:?Carla?Crystal,?MANAGER RETIREMENT I?met?face?to?face?with?the?patient?today. 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 HOME?MEDICATIONS Home?Medications:? ??loperamide?2?mg,?by?mouth,?Take?1?capsule?as needed ??amoxicillin?500?mg,?by?mouth,?Take?1?capsule?twice?a?day?for?10?days ??insulin?glargine?100?unit/mL,?subcutaneously,?Inject?55 unit?once?a?day ??ergocalciferol?(vitamin?D2)?(ergocalciferol?(vitamin?d2))? 1,250?mcg?(50,000?unit),?by?mouth,?Take?1?capsule?once a?month ??Renvela?(sevelamer?carbonate)?800?mg,?by?mouth,?Take& #160;1?tablet?three?times?a?day?Take?with?FIRST?bite of?food. ??isosorbide?mononitrate?60?mg,?by?mouth,?Take?1?tablet?once?a?day ??sucralfate?1?gram,?by?mouth,?Take?1?tablet?twice?a?day ??Humalog?KwikPen?Insulin?(insulin?lispro)?100?unit/mL,&#160 ;Inject?per?sliding?scale ??duloxetine?30?mg,?by?mouth,?Take?1?capsule?once a?day ??carvedilol?12.5?mg,?by?mouth,?Take?1?tablet?twice?a?day ??atorvastatin?40?mg,?by?mouth,?Take?1?tablet?once?a?day ??aspirin?81?mg,?by?mouth,?Take?1?tablet?once a?day ??amlodipine?10?mg,?by?mouth,?Take?1?tablet?once a?day ??Acetaminophen?Pain?Relief?(acetaminophen)?500?mg,?by? mouth,?Take?2?tablet?three?times?a?day?as?needed?for?pain ??cetirizine?10?mg,?by?mouth,?Take?1?tablet?as&#16 0;directed?as?needed?at?bedtime ??promethazine?25?mg,?by?mouth,?Take?1?tablet?ever y?four?hours?as?needed?for?nausea/vomiting ??Miralax?(polyethylene?glycol?3350)?17?gram/dose,?dissolved ?in?water,?Take?17?gram?once?a?day?as?needed Allergies:? ??SULFA?SULFONAMIDE?ANTIBIOTICS LAST?HOSPITALIZATION Discharge?Diagnosis:?I31.39?Other?pericardial?effusion?(noninflammatory) Admission?Date?12/18/22 Discharge?Date?12/23/22 DIALYSIS?PRESCRIPTION ??IHD?3x?Week?Start?date:?04/25/23 ??Dialyzer:?180NRe?Optiflux ??BFR:?400 ??DFR:?Autoflow?2 ??Potassium:?2.0 ??Sodium:?138 ??EDW:?92.5 ??Duration:?3:45 ??Calcium:?2.5 ??Bicarb:?36 ??Rx?updated?on:?04/25/2023 TREATMENT?ASSESSMENT Blood?pressure?controlled.?No?changes?indicated.? BP?Stand?Pre ??06/18/2023:?148/80 BP?Sit?Pre ??06/23/2023:?134/72 ??06/20/2023:?145/78 ??06/18/2023:?172/89 BP?Stand?Post ??06/23/2023:?151/80 ??06/20/2023:?142/55 ??06/18/2023:?132/73 BP?Sit?Post ??06/23/2023:?162/85 ??06/20/2023:?143/73 ??06/18/2023:?156/78 Tx?Duration ??06/23/2023:?3:49 ??06/20/2023:?3:47 ??06/18/2023:?3:58 Missed?Treatments 0?-?last?30?days 1?-?last?60?days 10/19?-?recent FLUID?ASSESSMENT Fluid?status?acceptable.?Interdialytic?weight?gain?acceptable.?No ?changes?indicated.? EDW?(kg) ??06/23/2023:?92.5 ??06/20/2023:?92.5 ??06/18/2023:?92.5 Weight?Pre?(kg) ??06/23/2023:?91.6 ??06/20/2023:?92.4 ??06/18/2023:?92.5 Weight?Post?(kg) ??06/23/2023:?91.1 ??06/20/2023:?92.6 ??06/18/2023:?92.4 PWV?(kg) ??06/23/2023:?-1.5 ??06/20/2023:?0.1 ??06/18/2023:?-0.1 UF?Rate?(mL/kg/hr) ??06/23/2023:?1.4 ??06/20/2023:?-0.4 ??06/18/2023:?0.3 ADEQUACY?ASSESSMENT Adequacy?target?met.?Prescription?compliance?acceptable.?No?changes?indicated.? spKt/V,?URR ??06/09/2023:?1.94,?78.0 ??05/05/2023:?1.51,?74.0 ??04/07/2023:?1.44,?71.0 ACCESS?ASSESSMENT ??Access?Type:?CVCatheter ??Access?SubType:?Tunneled ??Access?Status:?Active?(In?Use)?-?10/11/2022 ??Access?Location:?Chest ??Placed:?10/10/2022 New?access?developing?-?awaiting?use. ANEMIA?ASSESSMENT HGB?at?goal.?Iron?parameters?acceptable.?No?changes?indicated.? HGB,?TSAT ??06/23/2023:?11.6,?29.0 ??06/16/2023:?11.5,?- ??06/09/2023:?11.3,?- ?? Ferritin ??06/23/2023:?413.0 ??03/28/2023:?82.0 ??03/26/2023:?90.0 Iron?Sucrose?(Venofer)?(mg) ??06/23/2023:?50 ??06/13/2023:?100 ??06/11/2023:?100 BMM?ASSESSMENT PTH?elevated.?Calcium?low.?Phosphorus?elevated.?No?changes?indicated.? Phosphorus,?Calcium ??06/23/2023:?5.4,?7.7 ??05/19/2023:?4.7,?7.7 ??04/21/2023:?5.4,?8.4 ?? PTH,?Intact ??06/23/2023:?472.0 ??03/31/2023:?207.0 ??03/28/2023:?201.0 Vitamin?D?(Calcitriol)?Oral?(mcg) ??06/23/2023:?0.25 ??06/20/2023:?0.25 ??06/18/2023:?0.25 NUTRITION?ASSESSMENT Potassium?controlled.?Albumin?below?goal.?No?changes?indicated. Albumin,?Potassium ??06/23/2023:?3.5,?3.5 ??05/19/2023:?3.4,?3.5 ??04/21/2023:?3.6,?4.1 ?? eNPCR ??06/09/2023:?0.6 ??05/05/2023:?0.45 ??04/07/2023:?0.73 PHYSICAL?EXAM Exam?Performed.?Vital?Signs?Reviewed.?Lungs?-?Clear.?CV&#160 ;-?Blood?pressure?noted.?CV?-?RRR.?EXT?-?No?edema. ?AVF/AVG?Positive?thrill/bruit. DIAGNOSIS Chief?Complaint:?N18.6?End?stage?renal?disease Patient?is?stable. Patient?data?updated?06/25/2023?at?8:38?AM Signed?By:?Crystal,?Carla,?MANAGER RETIREMENT??on?06/25/2023?8:41:40?AM END OF DOCUMENT
--- OUTSIDE RECORDS SUMMARY | 2023-08-04 15:12 | XMS_ITS ---
Author Name Nataliya Mcclendon Address [address] [place] [address] Phone [phone] Organization [facility] e, NA DOCUMENT DISCLAIMER Multiple document versions may exist, please be sure you review the latest version. The information in the [facility] Progress Note Document represents a providers documented clinical note containing certain health and medical information. It may not contain the complete medical history for the patient and should be independently verified. The represented time in the document is Eastern Time PROVIDER ROUNDING NOTE COMP HD PROVIDER?ROUNDING?NOTE?COMP?HD Clinic:?[address] [address]??LAW??ROLAN Visit?date:?10/09/2022?00:00?Modality/setting:?IHD Carla?Burkett?-?Chart?#:?[id number] Method?of?Interaction:?Face?to?face Date?of?Interaction:?06/30/2023 Patient?is?stable ?-?Optimal?weight?addressed?with?patient?and?staff. ?-?Medications?and?labs?reviewed. Patient?issues?include: Stable Prior?Treatment:?06/27/2023? Dialyzer:?180NRe?Optiflux? Dialysate:?2.0?K,?2.5 Ca,?1.0?Mg,?100?Dextrose?(G2251)? Actual?Time:?03:49?Prescribed?Time:?3:45? Avg?BFR:?400?Avg?DFR:?790? Wt?Gain?(kg):?1.25?EDW?(kg):?92.50? Adequacy ?spKt/V?eKdrt/V?OLC?(Del)?spKtv?1.94?06/09/23?? ?1.73?06/09/23?? ?1.20?06/27/23?? ?1.51?05/05/23?? ?1.30?05/05/23?? ?1.39?06/23/23?? ?1.44?04/07/23?? ?1.25?04/07/23?? ?1.32?06/20/23?URR?Potassium,?Serum?&#160 ;?Bicarbonate?Creatinine?%?mEq/L?mEq/L?&#16 0;?mg/dL ?78?06/09/23?? ?3.5?06/23/23?? ?30?06/23/23?? ?2.65?06/23/23?? ?74?05/05/23?? ?3.5?05/19/23?? ?28?05/19/23?? ?2.35?05/19/23?? ?71?04/07/23?? ?4.1?04/21/23?? ?25?04/21/23?? ?3.07?04/21/23?? ?-?Adequacy?parameters?reviewed Adequacy ?-?Adequacy?target?met ?Sitting?BP?Pre?Sitting BP?Post?Systolic/Diastolic?Systolic/Diastolic?161?/?80??06/27/23?167?/?85??06/27/23?168?/?96??06/25/23?? ?191?/?106? 06/25/23?134?/?72??06/23/23?162?/?85??06/23/23?? Blood?Pressure ?-?Blood?pressure?controlled Fluid?Status ?-?Fluid?status?acceptable Interdialytic?Weight?Gain ?-?Interdialytic?weight?gain?acceptable Prescription?Compliance ?-?Prescription?compliance?acceptable ?-?Potassium?controlled Anemia ?HGB? Transferrin?Sat.?(Calc) ?Ferritin?g/dL?%?ng/m L?11.6?06/23/23?29?06/23/23?? ?413?06/23/23?? ?11.5?06/16/23?21?05/19/23?? ?82?03/28/23?? ?11.3?06/09/23?17?04/21/23?? ?90?03/26/23?? IV?Iron?Administrations ??100?mg?Venofer?06/27/23 ??50?mg?Venofer?06/23/23 ??100?mg?Venofer?06/13/23 ?-?Anemia?reviewed Bone?and?Mineral?Metabolism ?Calcium,?Total?Calcium,?Corrected?Phosphorous? &#160 ;?PTH-Intact,?Plasma?mg/dL?mg/dL?mg/dL?pg/mL?7.7?06/23/23?? ?8.1?06/23/23?? ?5.4?&#16 0;??06/23/23?? ?472?06/23/23?? ?7.7?05/19/23?? ?8.2?05/19/23?? ?4.7?&#16 0;??05/19/23?? ?207?03/31/23?? ?8.4?04/21/23?? ?8.7?04/21/23?? ?5.4?&#16 0;??04/21/23?? ?201?03/28/23?Vitamin?D?25?Hydroxy? Vitamin?D?Analogue?&# 160;?Calcimimetics?ng/mL?Administrations?& #160;?13.1?03/28/23?0.25?mcg?Vitamin?D??06/27/23?19.5?03/26/23?0.25?mcg?Vitamin?D??06/25/23?0.25?mcg?Vitamin?D?&#1 60;06/23/23? PTH ?-?PTH?within?target ?-?Bone?and?mineral?metabolism?parameters?reviewed ?-?Calcium?controlled Vitamin?D?67504?IU?monthly.?Renvela?800?PO?TID Nutrition ?Albumin?eNPCR?g/dL?g/kg/day?3.5?06/23/23?? ?0.60?06/09/23?? ?3.4?05/19/23?? ?0.45?05/05/23?? ?3.6?04/21/23?? ?0.73?04/07/23?? ?-?Nutrition?reviewed ?-?Caloric?intake?addressed Home?Medications ?Acetaminophen?Pain?Relief?(acetaminophen) ?500?mg,?oral,?2?tablet?three?times?a?day ?amlodipine?(amlodipine) ?10?mg,?oral,?1?tablet?once?a?day ?amoxicillin?(amoxicillin) ?500?mg,?oral,?1?capsule?twice?a?day ?[for?10?days] ?aspirin?(aspirin) ?81?mg,?oral,?1?tablet?once?a?day ?atorvastatin?(atorvastatin) ?40?mg,?oral,?1?tablet?once?a?day ?carvedilol?(carvedilol) ?12.5?mg,?oral,?1?tablet?twice?a?day ?cetirizine?(cetirizine) ?10?mg,?oral,?1?tablet?as?directed ?[at?bedtime] ?duloxetine?(duloxetine) ?30?mg,?oral,?1?capsule?once?a?day ?ergocalciferol?(vitamin?D2)?(ergocalciferol?(vitamin?d2)) ?1,250?mcg?(50,000?unit),?oral,?1?capsule?once?a?month ?Humalog?KwikPen?Insulin?(insulin?lispro) ?100?unit/mL,?subQ, ?[per?sliding?scale] ?insulin?glargine?(insulin?glargine) ?100?unit/mL,?subQ,?55?unit?once?a?day ?isosorbide?mononitrate?(isosorbide?mononitrate) ?60?mg,?oral,?1?tablet?once?a?day ?loperamide?(loperamide) ?2?mg,?oral,?1?capsule ?[as?needed] ?Miralax?(polyethylene?glycol?3350) ?17?gram/dose,?oral,?17?gram?once?a?day ?promethazine?(promethazine) ?25?mg,?oral,?1?tablet?every?four?hours ?[for?nausea/vomiting] ?Renvela?(sevelamer?carbonate) ?800?mg,?oral,?1?tablet?three?times?a?day... There?are?additional?active?home?medications?for?this?patien t.?Please?view?in?Clinical?Summary Vascular?Access?-?Active/Maturing ?Type?Position/Location?Status?Access?ID?CVCatheter-Tunneled?Chest?Active?(In?Use)?[id number]?& #160;?& #160;?-?Vascular?access?reviewed ?-?Current?access?is?functioning?well. ?-?New?access?developing?-?awaiting?use Exam ?-?Vital?signs?reviewed Pulmonary ?-?LUNGS?-?clear Cardiovascular ?-?CV?-?Blood?pressure?noted ?-?CV?-?RRR Feet ?-?EXT?-?no?ulcers Left?AKA Interest?and?Eligibility?(If?changes?are?made,?Please?notify?SW?via?alert?below) ?Date?of?discussion?from?transplant?assessment:?03/18/2023 ?Patient?already?on?transplant?list??No ?Patient?interested?in?transplantation??Yes ?Has?patient's?physician?identified?one?or?more?exclusions per?the ?Contraindication?list?provider?by?the?transplant?center? ??No ?Patient?referred?for?transplantation??Yes,?per?physician?order ?Transplant?[place] Tobacco?Cessation ??Tobacco?use:?Former?user ??Type:?Cigarettes ??Years?smoked:? 20 ??Frequency:?Daily Ziad?W?Nini?Payton,? END OF DOCUMENT
--- OUTSIDE RECORDS SUMMARY | 2023-08-04 15:12 | XMS_ITS ---
Author Name Nataliya Mcclendon Address [address] [place] [address] Phone [phone] Organization [facility] e, NA DOCUMENT DISCLAIMER Multiple document versions may exist, please be sure you review the latest version. The information in the [facility] Progress Note Document represents a providers documented clinical note containing certain health and medical information. It may not contain the complete medical history for the patient and should be independently verified. The represented time in the document is Eastern Time PROVIDER ROUNDING NOTE COMP HD PROVIDER?ROUNDING?NOTE?COMP?HD Clinic:?[address] [place] [address]??[place]??ROLAN Visit?date:?10/09/2022?00:00?Modality/setting:?IHD Carla?Burkett?-?Chart?#:?[id number] Method?of?Interaction:?Patient?not?seen Date?of?Interaction:?07/09/2023 ?-?Records?/?lab?review?only Reason:??Pt?is?no?show. ?-?Patient?is?stable Patient?issues?include: Stable.Patient?missed?few?treatments?lately?due?to?transportation?issues. Prior?Treatment:?07/04/2023? Dialyzer:?180NRe?Optiflux? Dialysate:?2.0?K,?2.5 Ca,?1.0?Mg,?100?Dextrose?(G2251)? Prescribed?Time:?3:45?Avg?BFR:?400?Wt?Gain (kg):?-0.05? Actual?Time:?02:51?Avg?DFR:?790?&#16 0;EDW?(kg):?91.5? Adequacy ?spKt/V?eKdrt/V?&#160 ; ???OLC?(Del)?spKtv?URR?%?1.94?06/09/23?? ?1.73?06/09/23?? ?0.96?1 09/04/22?? ?78?06/09/23? ?1.51?05/05/23?? ?1.30?05/05/23?? ?1.31?1 09/01/22?? ?74?05/05/23? ?1.44?04/07/23?? ?1.25?04/07/23?? ?1.34?1 08/30/22?? ?71?04/07/23? ?Potassium,?Serum?mEq/L?Bicarbonate?mEq/L??&# 160;?Creatinine?mg/dL?3.5?06/23/23? 30?06/23/23?2. 65?06/23/23?3.5?05/19/23? 28?05/19/23?2. 35?05/19/23?4.1?04/21/23? 25?04/21/23?3. 07?04/21/23?-?Adequacy?parameters?reviewed Adequacy ?-?Adequacy?target?met ?Sitting?BP?Pre?Sitting BP?Post?Systolic/Diastolic?Systolic/Diastolic?142?/?80??07/04/23?136?/?60??07/04/23?151?/?77??07/02/23?141?/?72??07/02/23?179?/?86??06/30/23?145?/?76??06/30/23?? Blood?Pressure ?-?Blood?pressure?controlled Fluid?Status ?-?Fluid?status?acceptable Interdialytic?Weight?Gain ?-?Interdialytic?weight?gain?acceptable Prescription?Compliance ?-?Prescription?compliance?acceptable ?-?Potassium?controlled Anemia ?HGB?g/dL? Transferrin?Sat.?(Calc)?%?Ferritin?ng/mL&#160 ;?11.8?06/30/23?29?06/23/23?413 ?06/23/23?? ?11.6?06/23/23?21?05/19/23?82 ?03/28/23?? ?11.5?06/16/23?17?04/21/23?90 ?03/26/23?? IV?Iron?Administrations ??100?mg?Venofer?07/04/23 ??100?mg?Venofer?07/02/23 ??100?mg?Venofer?06/30/23 ?-?Anemia?reviewed Bone?and?Mineral?Metabolism ??Calcium,?Total?mg/dL?? Calcium,?Corrected?mg/dL ?&#1 60;??Phosphorous?mg/dL??? PTH-Intact,?Plasma?pg/mL ??7.7?06/23/23? 8.1?06/23/23?5.4&#16 0;?06/23/23?472?06/23/23?7.7?05/19/23? 8.2?05/19/23?4.7&#16 0;?05/19/23?207?03/31/23?8.4?04/21/23? 8.7?04/21/23?5.4&#16 0;?04/21/23?201?03/28/23?Vitamin?D?25?Hydroxy?ng/mL? ?Vitamin?D?Analogue? Administrations?Calcimimetics?13.1?03/28/23?0.5?mcg?Vitamin?D?(?07/04/23??& #160;?-?19.5?03/26/23?0.5?mcg?Vitamin?D?(?07/02/23??& #160;?-?-?0.25?mcg?Vitamin?D??06/30/23?&#1 60;?-? PTH ?-?PTH?within?target ?-?Bone?and?mineral?metabolism?parameters?reviewed ?-?Calcium?controlled ?-?Phosphorus?controlled Vitamin?D?73488?IU?monthly.?Renvela?800?PO?TID Nutrition ?Albumin?g/dL? eNPCR?g/kg/day?3.5?06/23/23?? ?0.60?06/09/23?? ?3.4?05/19/23?? ?0.45?05/05/23?? ?3.6?04/21/23?? ?0.73?04/07/23?? ?-?Nutrition?reviewed ?-?Caloric?intake?addressed Home?Medications ?Acetaminophen?Pain?Relief?(acetaminophen) ?500?mg,?oral,?2?tablet?three?times?a?day ?amlodipine?(amlodipine) ?10?mg,?oral,?1?tablet?once?a?day ?amoxicillin?(amoxicillin) ?500?mg,?oral,?1?capsule?twice?a?day ?[for?10?days] ?aspirin?(aspirin) ?81?mg,?oral,?1?tablet?once?a?day ?atorvastatin?(atorvastatin) ?40?mg,?oral,?1?tablet?once?a?day ?carvedilol?(carvedilol) ?12.5?mg,?oral,?1?tablet?twice?a?day ?cetirizine?(cetirizine) ?10?mg,?oral,?1?tablet?as?directed ?[at?bedtime] ?duloxetine?(duloxetine) ?30?mg,?oral,?1?capsule?once?a?day ?ergocalciferol?(vitamin?D2)?(ergocalciferol?(vitamin?d2)) ?1,250?mcg?(50,000?unit),?oral,?1?capsule?once?a?month ?Humalog?KwikPen?Insulin?(insulin?lispro) ?100?unit/mL,?subQ, ?[per?sliding?scale] ?insulin?glargine?(insulin?glargine) ?100?unit/mL,?subQ,?55?unit?once?a?day ?isosorbide?mononitrate?(isosorbide?mononitrate) ?60?mg,?oral,?1?tablet?once?a?day ?loperamide?(loperamide) ?2?mg,?oral,?1?capsule ?[as?needed] ?Miralax?(polyethylene?glycol?3350) ?17?gram/dose,?oral,?17?gram?once?a?day ?promethazine?(promethazine) ?25?mg,?oral,?1?tablet?every?four?hours ?[for?nausea/vomiting] ?Renvela?(sevelamer?carbonate) ?800?mg,?oral,?1?tablet?three?times?a?day... There?are?additional?active?home?medications?for?this?patien t.?Please?view?in?Clinical?Summary Vascular?Access?-?Active/Maturing ?Type?Position/Location?Status?Access?ID?AVFistula-Unknown?Upper?Arm-Left?Matur ing/Healing?[id number]?CVCatheter-Tunneled?Chest?Active?(In?Use)?[id number]?-?-?&# 160;?-? -?-?Vascular?access?reviewed ?-?Current?access?is?functioning?well. ?-?New?access?developing?-?awaiting?use Exam ?-?Vital?signs?reviewed Pulmonary ?-?LUNGS?-?clear Cardiovascular ?-?CV?-?Blood?pressure?noted ?-?CV?-?RRR Edema ?-?EXT?-?No?edema Feet ?-?EXT?-?no?ulcers Other ?-?AVF/AVG?positive?thrill/bruit Left?[facility] Interest?and?Eligibility?(If?changes?are?made,?Please?notify?SW?via?alert?below) ?Date?of?discussion?from?transplant?assessment:?03/18/2023 ?Patient?already?on?transplant?list??No ?Patient?interested?in?transplantation??Yes ?Has?patient's?physician?identified?one?or?more?exclusions per?the ?Contraindication?list?provided?by?the?transplant?center? ??No ?Patient?referred?for?transplantation??Yes,?per?physician?order ?Transplant?[place] Tobacco?Cessation ??Tobacco?use:?Former?user ??Type:?Cigarettes ??Years?smoked:? 20 ??Frequency:?Daily Ziad?W?Nini?INESSA Cain END OF DOCUMENT
[2023-08-04 16:00] VITALS: BP 141/90; PULSE 86; RESP 19; TEMP 36.9; O2SAT 96; BMI 30.8
[2023-08-04 16:13] VITALS: BP 141/90; PULSE 86; RESP 19; TEMP 36.9; O2SAT 96
--- NOTE | 2023-08-04 16:32 | ED_ITS ---
Discharge Plan Disposition Patient Disposition: Home, Self-Care Condition: Good Prescriptions Prescriptions: New ofloxacin 0.3 % drops 10 drp otic (ear) DAILY 7 Days Qty: 10 0RF Rx Instructions: in left ear as directed No Action amlodipine 5 mg tablet 5 mg PO DAILY insulin glargine [Lantus Solostar U-100 Insulin] 100 unit/mL (3 mL) insulin pen 55 unit SQ HS Qty: 15 2RF Santyl 250 unit/gram ointment 1 applic topical QDAY 30 Days Qty: 90 1RF Nurtec ODT 75 mg tablet,disintegrating 75 mg PO DIRECTED PRN (Reason: Headache) Qty: 10 2RF Rx Instructions: DISSOLVE ONE TABLET ON THE TONGUE AT ONSET OF MIGRAINE HEADACHE NEEDED aspirin 81 mg tablet,delayed release (DR/EC) 81 mg PO DAILY Qty: 90 0RF polyethylene glycol 3350 [Miralax] 17 gram/dose powder 17 g PO DAILY Qty: 510 0RF loperamide 2 mg capsule 2 mg PO DAILY PRN (Reason: loose stool) Qty: 30 0RF amoxicillin 500 mg tablet 500 mg PO BID 10 Days Qty: 20 0RF atorvastatin 40 mg tablet 40 mg PO HS Qty: 90 3RF (DME) pen needle, diabetic [Comfort EZ Pen Otis] 31 gauge x 5/16 needle See Rx Instructions .Route Qty: 100 2RF Rx Instructions: As directed (DME) BD Insulin Syringe (half unit) 0.3 mL 31 gauge x 5/16 syringe See Rx Instructions .Route Qty: 10 2RF Rx Instructions: As directed isosorbide mononitrate 60 mg tablet extended release 24 hr 60 mg PO DAILY Qty: 90 1RF (DME) blood pressure monitor [Blood Pressure Kit] Kit See Rx Instructions .Route Qty: 1 0RF Rx Instructions: As directed insulin lispro 100 unit/mL insulin pen 14 unit SQ TID Qty: 15 2RF duloxetine 30 mg capsule,delayed release(DR/EC) 30 mg PO DAILY Qty: 90 0RF Zyrtec 10 mg capsule 10 mg PO DAILY Qty: 90 0RF carvedilol 6.25 mg tablet 12.5 mg PO BID Rx Instructions: must administer with a meal/food ondansetron 4 mg tablet,disintegrating 4 mg PO Q6H PRN (Reason: nausea and vomiting) 5 Days Qty: 20 0RF Referrals Follow up/Referrals: Francisco Greer APRN [Primary Care Provider] - See instructions Activity Restrictions/Add. Instructions Additional Instructions/Restrictions: *Monitor Temp, Over the counter Motrin or Tylenol as directed/as needed Tylenol every 4 hours and Motrin every 6 hours (as long as your family doctor has told you that you can take it) for fever or pain. and straight to ER if unable to lower temp less than 101.0 after medication given *Warm salt water gargles may help to soothe the throat *Throat Lozenges? *Warm fluids like tea with honey may help to soothe the throat? *Sleep elevated *Humidifier/Vaporizer Make sure you are drinking fluids Your throat swab was sent for culture. Those results are typically sent to your primary care. Be sure to follow up in 2-3 days with your family doctor/primary care physician if no improvement so they can review those result and treat if necessary. If you don?t have a primary care doctor, I recommend you get one but in the mean time, you will have to return to a walk in clinic Follow up IMMEDIATELY for new or worsening symptoms or no Noticeable improvement over the next 48-72 hours. 911 for difficulty breathing or swallowing You were tested for today for COVID19 your test result should be back in the next 24-72hours, you may check your results on the [facility] [employer] [place] [facility] if your COVID or Flu is positive you must Quarantine for 5 days Clinical Impressions Clinical Impression: Otitis externa Qualifiers: Otitis externa type: unspecified type Chronicity: unspecified Laterality: left Qualified Code(s): H60.92 - Unspecified otitis externa, left ear Instructions Patient Instructions: DI for Viral Syndrome, Diarrhea Discharge ED Provider: Tasha Moses [facility] General Stated complaint: cough, runny nose, diarrhea Mode of Arrival: Ambulatory Source of Information: Patient Limitations: No Limitations Time Seen by Provider: 08/04/23 16:32 Description of Symptoms (Recalled from Triage Doc. by RN): PATIENT C/O HEADACHE, RUNNY NOSE, COUGH, SORE THROAT AND DIARRHEA X 4 DAYS HEENT Symptoms (Recalled from RN notes): Yes Resp Symptoms (Recalled from RN notes): Yes Skin Symptoms (Recalled from RN notes): No MS Symptoms (Recalled from RN notes): No Functional Status (Recalled from RN notes): WNL History of Present Illness Provider Complaint: Patient states that she was recently on antibiotics for ear infection States that it helped but her ear is still sore to the touch, States that also she has been around several people that has had strep throat and the flu, states that she has been having sore throat, headache and cough and has had some diarrrhea States due to being around people with flu and strep throat she wanted to get tested Related Data Home Medications Medication Instructions Recorded Confirmed carvedilol 6.25 mg tablet 12.5 mg PO BID htn 09/04/22 06/17/23 amlodipine 5 mg tablet 5 mg PO DAILY 02/13/23 06/17/23 Previous Rx's Medication Instructions Recorded atorvastatin 40 mg tablet 40 mg PO HS Cholesterol #90 tabs 11/25/21 insulin syr/ndl U100 half maged 0.3 #10 ea 09/17/22 mL 31 gauge x 5/16 (BD Insulin Syringe Ultra-Fine (half unit)) pen needle, diabetic 31 gauge x #100 ea 09/17/22 5/16 (Comfort EZ Pen Otis) isosorbide mononitrate 60 mg 60 mg PO DAILY Heart disease #90 10/09/22 tablet,extended release 24 hr tabs blood pressure monitor (Blood #1 ea 02/06/23 Pressure Kit) insulin glargine 100 unit/mL (3 55 unit (0.55 mL) SQ HS #15 mL 02/13/23 mL) subcutaneous pen (Lantus Solostar U-100 Insulin) insulin lispro 100 unit/mL 14 unit (0.14 mL) SQ TID #15 mL 02/16/23 subcutaneous pen cetirizine 10 mg capsule (Zyrtec) 10 mg PO DAILY #90 caps 03/03/23 duloxetine 30 mg capsule,delayed 30 mg PO DAILY #90 caps 03/03/23 release ondansetron 4 mg disintegrating 4 mg PO Q6H PRN nausea and 05/10/23 tablet vomiting 5 days #20 tabs collagenase clostridium histo. 250 1 applic topical QDAY wound care 05/26/23 unit/gram topical ointment (Santyl) 30 days #90 grams amoxicillin 500 mg tablet 500 mg PO BID 10 days #20 tabs 06/17/23 aspirin 81 mg tablet,delayed 81 mg PO DAILY antiplatelet #90 06/17/23 release tabs loperamide 2 mg capsule 2 mg PO DAILY PRN loose stool #30 06/17/23 caps polyethylene glycol 3350 17 17 g PO DAILY #510 grams 06/17/23 gram/dose oral powder (Miralax) rimegepant 75 mg disintegrating 75 mg PO DIRECTED PRN Headache 06/17/23 tablet (Nurtec ODT) #10 tabs ofloxacin 0.3 % ear drops 10 drp otic (ear) DAILY 7 days #10 08/04/23 mL Allergies Allergy/AdvReac Type Severity Reaction Status Date / Time acetaminophen [From Tylox] Allergy Vomiting Verified 06/17/23 09:28 oxycodone [From Tylox] Allergy Verified 06/17/23 09:28 Sulfa (Sulfonamide Allergy ITCHING, Verified 06/17/23 09:28 Antibiotics) BURNING IN [SULFA (SULFONAMIDE EYES ANTIBIOTICS)] Worker's Comp Is this a Worker's Comp case?: No [facility] Disclaimer: The information contained in this section may have been updated after the patient was seen, as this information can be updated by other users. Medical History Abnormal cardiovascular stress test Allergies Amputation of left lower extremity below knee Amputation toe 4 TOES AMPUTATION ON RIGHT FOOT Anxiety Arthritis Atypical angina Cellulitis Cellulitis of right foot Chronic kidney disease Chronic kidney disease Depression Diabetes Displacement of peripherally inserted central catheter (PICC) Ear ache Edema of right lower extremity Edentulism Encounter for pre-operative cardiovascular clearance GERD (gastroesophageal reflux disease) History of back pain History of left below knee amputation Hyperlipidemia Hypertension IDDM (insulin dependent diabetes mellitus) Intrauterine device Irritable bowel syndrome (IBS) Migraine SHAYLA (obstructive sleep apnea) Pancreatitis Sinus headache Sleep apnea Urinary tract infection Surgical History H/O esophagogastroduodenoscopy History of arthroplasty of left hip History of arthroplasty of right knee History of carpal tunnel release History of cholecystectomy History of esophagogastroduodenoscopy (EGD) History of hip surgery LEFT HIP History of surgery HEART CATH 2 STENTS PLACED History of tonsillectomy Hx of section Status post transmetatarsal amputation of right foot Family History Mother Coronary artery disease Father Coronary artery disease Sister Coronary artery disease Other Cancer Diabetes Social History Smoking Status: Never smoker smoking status stop date: 20 quit status: considering quitting second hand exposure: No alcohol intake: never substance use type: denies use current occupational status: unemployed and disabled Travel in the last 8 weeks: None housing: house marital status: single number of children: 1 education level: high school diet: diabetic caffeine: No special leslie needs: No do you feel safe at home: Yes ROS Obtained: Yes All systems reviewed & no additional complaints except as documented and Yes Systems reviewed as appropriate & no additional complaints except as documented Constitutional Constitutional: Reports system reviewed and no additional complaints, except as documented, Reports as per HPI, Reports body ache and Reports headache(s) ENT Ears, Nose, Mouth, and Throat: Reports system reviewed and no additional complaints, except as documented, Reports as per HPI, Reports otalgia, Reports headache(s), Reports nasal congestion and Reports sore throat Cardiovascular Cardiovascular: Reports system reviewed and no additional complaints, except as documented and Reports as per HPI Respiratory Respiratory: Reports system reviewed and no additional complaints, except as documented, Reports as per HPI and Reports cough Gastrointestinal Gastrointestingal: Reports system reviewed and no additional complaints, except as documented, as per HPI and diarrhea; Denies abdominal pain, cramping, nausea or vomiting Neurologic Neurologic: Reports headache(s) Physical Exam General General appearance: alert and in no apparent distress ENT ENT exam: Present mucous membranes moist Expanded ENT Exam External ear exam: Present pain with movement (left) and external tenderness (left ) Nose exam: Absent sinus tenderness Respiratory Respiratory exam: Present normal lung sounds bilaterally; Absent respiratory distress or wheezes Cardiovascular Cardiovascular exam: Present regular rate, normal rhythm and normal heart sounds Abdominal Exam Abdominal exam: Present soft and normal bowel sounds; Absent distention or tenderness Neurological Exam Neurological exam: Present alert, oriented X3 and normal gait Medical Decision Making Mauri Inquiry Pt receiving controlled substance: No Mauri was queried for this patient: No Vital Signs: 08/04/23 16:00 08/04/23 16:13 Temperature 98.4 F 98.4 F Temperature Source Oral Pulse Rate 86 Pulse Rate [Left Brachial] 86 Respiratory Rate 19 19 Blood Pressure 141/90 H Blood Pressure [Left Arm] 141/90 H Blood Pressure Mean [Left Arm] 107 Blood Pressure Source [Left Arm] Automatic Cuff Blood Pressure Position [Left Arm] Sitting 02 Sat by Pulse Oximetry 96 Oxygen Delivery Method Room Air Lab Data Lab results reviewed: Yes I reviewed the patient's lab results.
[2023-08-04 16:34] LABS: UTC Influenza A Antigen Negative (Negative); UTC Influenza B Antigen Negative (Negative)
[2023-08-04 16:35] LABS: UTC Strep Screen (Rapid) Negative (Negative)
== END 2023-08-04 16:53 | disposition home or self-care (01) ==
PROVIDERS: Emergency Provider Nurse Practitioner; PCP Nurse Practitioner Family
DX: H60.92 Unspecified otitis externa, left ear (principal); R51.9 Headache, unspecified; R05.9 Cough, unspecified; R19.7 Diarrhea, unspecified; R09.81 Nasal congestion; R07.0 Pain in throat; E11.9 Type 2 diabetes mellitus without complications; K21.9 Gastro-esophageal reflux disease without esophagitis; E78.5 Hyperlipidemia, unspecified; I10 Essential (primary) hypertension; Z79.4 Long term (current) use of insulin
CPT/HCPCS: 87635; 87804; 87880; 99212; 99214; G0463

== ENCOUNTER 2023-11-24 12:59 | Outpatient (CLI) | payer MEDICARE, SELFPAY ==
--- NOTE | 2023-11-24 13:00 | US_ITS ---
PROCEDURE: US TRANSVAGINAL CLINICAL INDICATION: iud in place COMPARISON: No exams were available for comparison FINDINGS: Transvaginal sonographic images of the pelvis were obtained. UTERUS: 7.7 cm x 2.8 cmx 2.9 cm retroflexed with a combined endometrial thickness of 11.3mm. An IUD is seen within the uterine cavity in the correct position. On the transverse view the IUD appears somewhat superior. LEFT OVARY: 1.5 cmx1.6 cmx2.0cm with a volume of 2.4ml. Appears atrophic. RIGHT OVARY: 2.9 cmx 4.1cmx4.0cm with a volume of 24.8ml. There is a hemorrhagic cyst measuring 3.8 cm x 2.6 cm x 3.3 cm. It has the typical ground-glass appearance. Both ovaries are seen and appear normal. Doppler flow to both ovaries are seen. There is no fluid in the cul-de-sac. IMPRESSION: 1. Retroflexed uterus normal in shape and size. 2. The endometrium appears thickened for a postmenopausal woman with an IUD. 3. An IUD appears to be in the correct position within the uterine cavity although on the transverse view it looks more anterior. 4. Left ovary appears atrophic. There is a 3.8 cm hemorrhagic cyst in the right ovary. Suggest repeat ultrasound in 8 weeks to see its resolution. 5. No fluid in the cul-de-sac. Dictated by: Sandro Dempsey MD 11/25/2023 08:39 Sandro Dempsey MD in [place] 11/25/2023 08:39
--- NOTE | 2023-11-24 13:00 | MM_ITS ---
PROCEDURE INFORMATION: Exam: MG Bilateral Screening 3D Mammography Exam date and time: 11/24/2023 12:50 PM Age: 53 years old Clinical indication: Screening examination TECHNIQUE: Imaging protocol: Bilateral Screening tomosynthesis and 2D mammography including computer-aided detection (CAD) when performed. COMPARISON: 1. MG MM DIG SCREENING MAMM BI W/CAD 10/02/2020 1:19 PM 2. MG MM DIG SCREENING MAMM BI W/CAD 03/04/2019 10:48 AM FINDINGS: MAMMOGRAPHY: Breast composition: There are scattered areas of fibroglandular density. Mass: None. Architectural distortion: None. Calcifications: No suspicious calcifications. Asymmetric density: None. Skin thickening: None. Axillary adenopathy: None. IMPRESSION: No mammographic evidence of malignancy. Annual screening is recommended unless otherwise clinically indicated. ASSESSMENT: BI-RADS Category 1: Negative
== END 2023-11-24 23:59 | disposition home or self-care (01) ==
LOC: RAD 13:00
PROVIDERS: PCP Internal Medicine; Visit Provider Obstetrics & Gynecology
DX: Z97.5 Presence of (intrauterine) contraceptive device; Z12.31 Encounter for screening mammogram for malignant neoplasm of breast
CPT/HCPCS: 76830; 77063; 77067

== ENCOUNTER 2023-12-01 22:05 | Emergency (ER) | payer MEDICARE, SELFPAY ==
[2023-12-01 22:05] VITALS: BP 129/63; PULSE 92; RESP 18; TEMP 36.6; O2SAT 100; BMI 34.7
[2023-12-01 22:07] VITALS: BP 129/63; PULSE 92; O2SAT 99
--- NOTE | 2023-12-01 22:16 | ED_ITS ---
<Statement entered by Elkin Pitts MD - 12/01/23 23:10> I was consulted by the JOSE ANGEL, and we discussed the complexity of the problems being addressed. I approved the treatment and management plan for this patient's care in the emergency department, thus performing a substantive portion of the medical decision making. Elkin Pitts MD, SAEID, FACEP Discharge Plan Disposition Chief Complaint: Nausea/Vomiting/Diarrhea Prescriptions Prescriptions: No Action aspirin 81 mg tablet,delayed release (DR/EC) 81 mg PO DAILY Qty: 90 0RF atorvastatin 40 mg tablet 40 mg PO HS Qty: 90 3RF (DME) pen needle, diabetic [Comfort EZ Pen Bearden] 31 gauge x 5/16 needle See Rx Instructions .Route Qty: 100 2RF Rx Instructions: As directed (DME) BD Insulin Syringe (half unit) 0.3 mL 31 gauge x 5/16 syringe See Rx Instructions .Route Qty: 10 2RF Rx Instructions: As directed (DME) blood pressure monitor [Blood Pressure Kit] Kit See Rx Instructions .Route Qty: 1 0RF Rx Instructions: As directed duloxetine 30 mg capsule,delayed release(DR/EC) 30 mg PO DAILY Qty: 90 0RF Zyrtec 10 mg capsule 10 mg PO DAILY Qty: 90 0RF ammonium lactate 12 % lotion 1 applic topical BID acetaminophen 500 mg tablet 500 mg PO Q6H PRN Epogen 20,000 unit/mL solution 20,000 unit SQ .hd amlodipine 10 mg tablet 10 mg PO DAILY diphenhydramine HCl [Benadryl] 25 mg capsule 25 mg PO TID PRN sucralfate 1 gram tablet 1 g PO BID albuterol sulfate 90 mcg/actuation HFA aerosol inhaler 2 puff inhalation Q4-6H PRN ProMod Protein Liquid See Rx Instructions PO BID Rx Instructions: 30 ml orally twice a day; sevelamer carbonate 800 mg tablet 800 mg PO TID Rx Instructions: must administer with a meal/food(crushed in pudding) isosorbide dinitrate 30 mg tablet 30 mg PO DAILY Rx Instructions: allow nitrate-free interval of 12-14 hrs per 24-hr period famotidine 20 mg tablet 20 mg PO BID ascorbic acid (vitamin C) 500 mg tablet 500 mg PO DAILY insulin lispro 100 unit/mL insulin pen 1 sliding scale dose SQ USEASDIRECTD insulin glargine-yfgn [Semglee(insulin glarg-yfgn)Pen] 100 unit/mL (3 mL) insulin pen 65 unit SQ DAILY loperamide 2 mg tablet 2 mg PO TID PRN guaifenesin [Mucinex] 600 mg tablet extended release 12hr 600 mg PO BID Qty: 60 0RF carvedilol 6.25 mg tablet 12.5 mg PO BID Rx Instructions: must administer with a meal/food ondansetron 4 mg tablet,disintegrating 4 mg PO Q6H PRN (Reason: nausea and vomiting) 5 Days Qty: 20 0RF Referrals Follow up/Referrals: Beni Coyle DO [Primary Care Provider] - See instructions Instructions Patient Instructions: DI for Diarrhea and Traveler's Diarrhea -- Adult, DI for Diarrhea and Traveler's Diarrhea -- Child, DI for Nausea -- Adult, DI for Nausea -- Child Discharge ED Provider: Elkin Pitts General Adult HPI General Chief complaint: Nausea/Vomiting/Diarrhea Stated complaint: N/V Time Seen by Provider: 12/01/23 22:16 History of Present Illness HPI narrative: Patient presents with nausea vomiting and diarrhea since 2:00 this afternoon. Patient reports too many to count episodes of emesis and diarrhea. Patient states it began after eating lunch of enchiladas at the halfway. Patient is a Thursday dialysis patient and she did dialyze appropriately yesterday. She denies chest pain fever chills hemoptysis hematochezia melena hematemesis. Related Data Home Medications Medication Instructions Recorded Confirmed carvedilol 6.25 mg tablet 12.5 mg PO BID htn 09/04/22 11/10/23 acetaminophen 500 mg tablet 500 mg PO Q6H PRN 11/05/23 11/10/23 albuterol sulfate 90 mcg/actuation 2 puff inhalation Q4-6H PRN 11/05/23 11/10/23 aerosol inhaler amlodipine 10 mg tablet 10 mg PO DAILY 11/05/23 11/10/23 ammonium lactate 12 % lotion 1 applic topical BID 11/05/23 11/10/23 ascorbic acid (vitamin C) 500 mg 500 mg PO DAILY 11/05/23 11/10/23 tablet diphenhydramine HCl 25 mg capsule 25 mg PO TID PRN 11/05/23 11/10/23 (Benadryl) epoetin gia 20,000 unit/mL 20,000 unit SQ .hd 11/05/23 11/10/23 injection solution (Epogen) famotidine 20 mg tablet 20 mg PO BID 11/05/23 11/10/23 insulin glargine-yfgn 100 unit/mL 65 unit SQ DAILY 11/05/23 11/10/23 (3 mL) subcutaneous pen (Semglee (insulin glargine-yfgn) Pen) insulin lispro 100 unit/mL 1 sliding scale dose SQ 11/05/23 11/10/23 subcutaneous pen USEASDIRECTD isosorbide dinitrate 30 mg tablet 30 mg PO DAILY 11/05/23 11/10/23 loperamide 2 mg tablet 2 mg PO TID PRN 11/05/23 11/10/23 protein supplement (ProMod Protein See Rx Instructions PO BID 11/05/23 11/10/23 oral liquid) sevelamer carbonate 800 mg tablet 800 mg PO TID 11/05/23 11/10/23 sucralfate 1 gram tablet 1 g PO BID 11/05/23 11/10/23 Previous Rx's Medication Instructions Recorded atorvastatin 40 mg tablet 40 mg PO HS Cholesterol #90 tabs 11/25/21 insulin syr/ndl U100 half maged 0.3 #10 ea 09/17/22 mL 31 gauge x 5/16 (BD Insulin Syringe Ultra-Fine (half unit)) pen needle, diabetic 31 gauge x #100 ea 09/17/22 5/16 (Comfort EZ Pen Bearden) blood pressure monitor (Blood #1 ea 02/06/23 Pressure Kit) cetirizine 10 mg capsule (Zyrtec) 10 mg PO DAILY #90 caps 03/03/23 duloxetine 30 mg capsule,delayed 30 mg PO DAILY #90 caps 03/03/23 release ondansetron 4 mg disintegrating 4 mg PO Q6H PRN nausea and 05/10/23 tablet vomiting 5 days #20 tabs aspirin 81 mg tablet,delayed 81 mg PO DAILY antiplatelet #90 06/17/23 release tabs guaifenesin 600 mg tablet, 600 mg PO BID #60 tabs 11/05/23 extended release 12 hr (Mucinex) Allergies Allergy/AdvReac Type Severity Reaction Status Date / Time acetaminophen [From Tylox] Allergy Vomiting Verified 11/10/23 10:22 oxycodone [From Tylox] Allergy Verified 11/10/23 10:22 Sulfa (Sulfonamide Allergy ITCHING, Verified 11/10/23 10:22 Antibiotics) BURNING IN [SULFA (SULFONAMIDE EYES ANTIBIOTICS)] [facility] Disclaimer: The information contained in this section may have been updated after the patient was seen, as this information can be updated by other users. Medical History Acute kidney injury Other pericardial effusion (noninflammatory) Allergies Amputation of left lower extremity below knee Amputation toe Ovarian cyst Amputation of left lower extremity below knee Surgical History (Updated 11/10/23 @ 10:27 by Yuliet Alegria CMA) H/O left knee surgery Hx of section History of surgery History of cholecystectomy History of esophagogastroduodenoscopy (EGD) History of hip surgery History of left below knee amputation History of tonsillectomy History of carpal tunnel release History of arthroplasty of right knee History of arthroplasty of left hip Family History Mother Coronary artery disease Father Coronary artery disease Sister Coronary artery disease Other Cancer Diabetes Social History Smoking Status: Current every day smoker tobacco type: cigarettes packs per day: 1 smoking status stop date: 20 quit status: considering quitting second hand exposure: No alcohol intake: never substance use type: denies use current occupational status: unemployed and disabled Travel in the last 8 weeks: None housing: house marital status: single number of children: 1 education level: high school diet: diabetic caffeine: No special leslie needs: No do you feel safe at home: Yes ROS Obtained: Yes Systems reviewed as appropriate & no additional complaints except as documented Physical Exam General General appearance: alert and in no apparent distress Head Head exam: atraumatic and normal inspection Eye Eye exam: Present normal appearance, PERRL and EOMI ENT ENT exam: Present normal exam, normal oropharynx and mucous membranes moist Neck Neck exam: Present normal inspection, full ROM and trachea midline; Absent lymphadenopathy Chest Chest inspection: Present normal inspection and symmetric chest wall rise Respiratory Respiratory exam: Present normal lung sounds bilaterally; Absent accessory muscle use Cardiovascular Cardiovascular exam: Present regular rate, normal rhythm, normal heart sounds, +S1 and +S2 Abdominal Exam Abdominal exam: Present soft, tenderness (Diffusely mildly) and normal bowel sounds; Absent guarding or rebound Extremities Exam Extremities exam: Present normal inspection and full ROM Back Exam Back exam: Present normal inspection and full ROM Neurological Exam Neurological exam: Present alert, oriented X3 and CN II-XII intact Psychiatric Psychiatric exam: Present normal affect and normal mood Skin Skin exam: Present warm, dry and normal color Medical Decision Making Medical Records Medical records reviewed: Yes I reviewed the patient's medical records. Mauri Inquiry Pt receiving controlled substance: No Vital Signs: 12/01/23 22:05 Temperature 97.9 F Temperature Source Oral Pulse Rate [Left] 92 H Respiratory Rate 18 Blood Pressure [Right Arm] 129/63 Blood Pressure Mean [Right Arm] 85 02 Sat by Pulse Oximetry 100 Oxygen Delivery Method Room Air Lab Data Lab results reviewed: Yes I reviewed the patient's lab results. Lab Results 12/01/23 22:10: Sodium 139, Potassium 4.8, Chloride 102 12/01/23 22:10 Orders (Tests/Meds): ED MEDICATIONS Generic Name Dose Route Start Last Admin Trade Name Freq PRN Reason Stop Dose Admin Lactated Ringer's 1,000 mls @ 999 mls/hr 12/01/23 22:23 12/01/23 22:32 Lactated Ringer's 1000 Ml Bag IV 12/01/23 23:23 999 mls/hr .Q1H1M ONE Administration Discontinued Medications Generic Name Dose Route Start Last Admin Trade Name Freq PRN Reason Stop Dose Admin Promethazine HCl 25 mg 12/01/23 22:22 12/01/23 22:31 Promethazine Hcl 25mg/Ml 1ml Vial IV 12/01/23 22:23 25 mg ONCE ONE Administration Sodium Chloride 25 ml 12/01/23 22:22 12/01/23 22:31 Sodium Chloride 0.9% 25ml Bag IV 12/01/23 22:23 25 ml ONCE ONE Administration ORDERS Category Date Time Status CBC w/Auto Diff [Complete Blood Count Auto Diff] Stat Lab 12/01/23 22:24 Received CMP [Comprehensive Metabolic Panel] Stat Lab 12/01/23 22:10 Results Diarrhea 23 Panel, PCR Stat Lab 12/01/23 22:25 Ordered INR [Prothrombin Time INR] Stat Lab 12/01/23 22:10 Received Lactic Acid Stat Lab 12/01/23 22:24 Ordered Lipase Stat Lab 12/01/23 22:10 Results Magnesium Stat Lab 12/01/23 22:10 Results Medical Decision Narrative: In summary patient is a 3-year-old female who presents to the emergency department for evaluation of vomiting diarrhea. Patient is hemodynamically stable upon arrival, afebrile. Physical exam is remarkable for mildly tender abdomen diffusely without rebound guarding or rigidity bowel sounds are hyperactive. Differential diagnosis includes acute gastroenteritis versus bowel obstruction versus DKA etc. Initial workup will be conducted with hematologic labs. Initial interventions include crystalloid bolus Phenergan. Initial workup has been started and is pending at the time of transfer at 2300 hrs. to the oncoming provider Critical Care Critical Care Time Critical Care Time: No
--- OUTSIDE RECORDS SUMMARY | 2023-12-01 22:19 | XMS_ITS ---
Author Name Nataliya Mcclendon Address [address] [place] [address] Phone [phone] Organization [facility] e, NA DOCUMENT DISCLAIMER Multiple document versions may exist, please be sure you review the latest version. The information in the [facility] Progress Note Document represents a providers documented clinical note containing certain health and medical information. It may not contain the complete medical history for the patient and should be independently verified. The represented time in the document is Eastern Time PROVIDER ROUNDING NOTE COMP HD PROVIDER?ROUNDING?NOTE?COMP?HD Clinic:?[address] [place] [address]??LAW??ROLAN Visit?date:?08/17/2023?00:00?Modality/setting:?IHD Carla?Burkett?-?Chart?#:?[id number] Method?of?Interaction:?Face?to?face Date?of?Interaction:?09/09/2023 ?-?Patient?is?stable ?-?Optimal?weight?addressed?with?patient?and?staff. ?-?Medications?and?labs?reviewed. Patient?issues?include: Stable.?Had?recent?fall?with?left?arm/left?hip?fractures. Prior?Treatment:?09/07/2023? Dialyzer:?180NRe?Optiflux? Dialysate:?2.0?K,?2.5 Ca,?1.0?Mg,?100?Dextrose?(G2251)? Prescribed?Time:?3:45?Avg?BFR:?400?Wt?Gain (kg):?0.35? Actual?Time:?03:38?Avg?DFR:?500?&#16 0;EDW?(kg):?91.50? Adequacy ?spKt/V?eKdrt/V?&#160 ; ???OLC?(Del)?spKtv?URR?%?1.54?09/07/23?? ?1.31?09/07/23?? ?1.19?0 09/07/23?? ?75?09/07/23? ?1.34?08/28/23?? ?1.18?08/28/23?? ?1.30?0 09/04/23?? ?69?08/28/23? ?1.37?08/24/23?? ?1.17?08/24/23?? ?1.18?0 09/02/23?? ?71?08/24/23? ?Potassium,?Serum?mEq/L?Bicarbonate?mEq/L??&# 160;?Creatinine?mg/dL?4.3?08/17/23? 24?08/17/23?3. 01?08/17/23?3.5?06/23/23? 30?06/23/23?2. 65?06/23/23?3.5?05/19/23? 28?05/19/23?2. 35?05/19/23?-?Adequacy?parameters?reviewed Adequacy ?-?Adequacy?target?met ?Sitting?BP?Pre?Sitting BP?Post?Systolic/Diastolic?Systolic/Diastolic?161?/?80??09/07/23?146?/?74??09/07/23?186?/?89??09/04/23?148?/?78??09/04/23?172?/?81??09/02/23?179?/?85??09/02/23?? Blood?Pressure ?-?Blood?pressure?controlled Fluid?Status ?-?Fluid?status?acceptable Interdialytic?Weight?Gain ?-?Interdialytic?weight?gain?acceptable Prescription?Compliance ?-?Prescription?compliance?acceptable ?-?Potassium?controlled Anemia ?HGB?g/dL? Transferrin?Sat.?(Calc)?%?Ferritin?ng/mL&#160 ;?10.8?09/07/23?22?08/17/23?855 ?09/07/23?? ?10.8?08/31/23?06/23/23?896 ?08/17/23?? ?10.8?08/26/23?21?05/19/23?413 ?06/23/23?? IV?Iron?Administrations ??100?mg?Venofer?09/04/23 ??100?mg?Venofer?09/02/23 ??100?mg?Venofer?08/31/23 ?-?Anemia?reviewed Bone?and?Mineral?Metabolism ??Calcium,?Total?mg/dL?? Calcium,?Corrected?mg/dL ?&#1 60;??Phosphorous?mg/dL??? PTH-Intact,?Plasma?pg/mL ??8.4?08/17/23? 9.0?08/17/23?3.3&#16 0;?08/17/23?155?08/17/23?7.7?06/23/23? 8.1?06/23/23?5.4&#16 0;?06/23/23?472?06/23/23?7.7?05/19/23? 8.2?05/19/23?4.7&#16 0;?05/19/23?207?03/31/23?Vitamin?D?25?Hydroxy?ng/mL? ?Vitamin?D?Analogue? Administrations?Calcimimetics?16.9?08/17/23?0.5?mcg?Vitamin?D?(?07/04/23??& #160;?-?13.1?03/28/23?0.5?mcg?Vitamin?D?(?07/02/23??& #160;?-?19.5?03/26/23?0.25?mcg?Vitamin?D??06/30/23??& #160;?-? PTH ?-?PTH?within?target ?-?Bone?and?mineral?metabolism?parameters?reviewed ?-?Calcium?controlled ?-?Phosphorus?controlled Vitamin?D?56885?IU?monthly.?Renvela?800?PO?TID Nutrition ?Albumin?g/dL? eNPCR?g/kg/day?3.2?08/17/23?? ?0.71?09/07/23?? ?3.5?06/23/23?? ?0.69?08/28/23?? ?3.4?05/19/23?? ?0.54?08/24/23?? ?-?Nutrition?reviewed ?-?Caloric?intake?addressed ?-?Referred?to?dietitian?for?further?counseling Home?Medications ?Acetaminophen?Pain?Relief?(acetaminophen) 500?mg,?oral,?2?tablet?three?times?a?day ??amlodipine?(amlodipine) 10?mg,?oral,?1?tablet?once?a?day ??amoxicillin?(amoxicillin) 500?mg,?oral,?1?capsule?twice?a?day [for?10?days] ??aspirin?(aspirin) 81?mg,?oral,?1?tablet?once?a?day ??atorvastatin?(atorvastatin) 40?mg,?oral,?1?tablet?once?a?day ??carvedilol?(carvedilol) 12.5?mg,?oral,?1?tablet?twice?a?day ??cetirizine?(cetirizine) 10?mg,?oral,?1?tablet?as?directed [at?bedtime] ??duloxetine?(duloxetine) 30?mg,?oral,?1?capsule?once?a?day ??ergocalciferol?(vitamin?D2)?(ergocalciferol?(vitamin?d2)) 1,250?mcg?(50,000?unit),?oral,?1?capsule?once?a?month ??Humalog?KwikPen?Insulin?(insulin?lispro) 100?unit/mL,?subQ, [per?sliding?scale] ??insulin?glargine?(insulin?glargine) 100?unit/mL,?subQ,?55?unit?once?a?day ??isosorbide?mononitrate?(isosorbide?mononitrate) 60?mg,?oral,?1?tablet?once?a?day ??loperamide?(loperamide) 2?mg,?oral,?1?capsule [as?needed] ??Miralax?(polyethylene?glycol?3350) 17?gram/dose,?oral,?17?gram?once?a?day ??promethazine?(promethazine) 25?mg,?oral,?1?tablet?every?four?hours [for?nausea/vomiting] ??Renvela?(sevelamer?carbonate) 800?mg,?oral,?1?tablet?three?times?a?day... There?are?additional?active?home?medications?for?this?patien t.?Please?view?in?Clinical?Summary Vascular?Access?-?Active/Maturing ?Type?Position/Location?Status?Access?ID?AVFistula-Unknown?Upper?Arm-Left?Matur ing/Healing?[id number]?CVCatheter-Tunneled?Chest?Active?(In?Use)?[id number]?-?-?&# 160;?-? -?-?Vascular?access?reviewed ?-?New?access?developing?-?awaiting?use ?-?Current?access?is?functioning?well. Exam ?-?Vital?signs?reviewed Pulmonary ?-?LUNGS?-?clear Cardiovascular ?-?CV?-?Blood?pressure?noted ?-?CV?-?RRR Edema ?-?EXT?-?No?edema Feet ?-?EXT?-?no?ulcers Other ?-?AVF/AVG?positive?thrill/bruit Left?AKA Interest?and?Eligibility?(If?changes?are?made,?Please?notify?SW?via?alert?below) ?Date?of?discussion?from?transplant?assessment:?03/18/2023 ?Patient?already?on?transplant?list??No ?Patient?interested?in?transplantation??Yes ?Has?patient's?physician?identified?one?or?more?exclusions per?the ?Contraindication?list?provided?by?the?transplant?center? ??No ?Patient?referred?for?transplantation??Yes,?per?physician?order ?Transplant?[place] Tobacco?Cessation ??Type:?Cigarettes ??Years?smoked:? 20 ??Frequency:?Daily Ziad?W?Nini?Payton,? END OF DOCUMENT
--- OUTSIDE RECORDS SUMMARY | 2023-12-01 22:19 | XMS_ITS ---
Author Name Nataliya Mcclendon Address [address] [place] [address] Phone [phone] Organization [facility] e, NA DOCUMENT DISCLAIMER Multiple document versions may exist, please be sure you review the latest version. The information in the [facility] Progress Note Document represents a providers documented clinical note containing certain health and medical information. It may not contain the complete medical history for the patient and should be independently verified. The represented time in the document is Eastern Time PROVIDER ROUNDING NOTE COMP HD PROVIDER?ROUNDING?NOTE?COMP?HD Clinic:?[address] [place] [address]??LAW??ROLAN Visit?date:?08/17/2023?00:00?Modality/setting:?IHD Carla?Burkett?-?Chart?#:?[id number] Method?of?Interaction:?Face?to?face Date?of?Interaction:?11/25/2023 ?-?Patient?is?stable ?-?Optimal?weight?addressed?with?patient?and?staff. ?-?Medications?and?labs?reviewed. Patient?issues?include: Stable. Prior?Treatment:?11/23/2023? Dialyzer:?180NRe?Optiflux? Dialysate:?2.0?K,?2.5 Ca,?1.0?Mg,?100?Dextrose?(G2251)? Prescribed?Time:?3:45?Avg?BFR:?370?Wt?Gain (kg):?1.80? Actual?Time:?03:44?Avg?DFR:?730?&#16 0;EDW?(kg):?90.00? Adequacy ?spKt/V?eKdrt/V?&#160 ; ???OLC?(Del)?spKtv?URR?%?1.61?11/09/23?? ?1.41?11/09/23?? ?1.44?0 11/23/23?? ?74?11/09/23? ?1.56?10/05/23?? ?1.37?10/05/23?? ?1.51?0 11/20/23?? ?73?10/05/23? ?1.54?09/07/23?? ?1.31?09/07/23?? ?1.70?0 11/18/23?? ?75?09/07/23? ?Potassium,?Serum?mEq/L?Bicarbonate?mEq/L??&# 160;?Creatinine?mg/dL?5.2?11/16/23? 23?11/16/23?4. 49?11/16/23?5.3?10/19/23? 26?10/19/23?4. 26?10/19/23?4.9?09/21/23? 22?09/21/23?3. 55?09/21/23?-?Adequacy?parameters?reviewed Adequacy ?-?Adequacy?target?met ?Sitting?BP?Pre?Sitting BP?Post?Systolic/Diastolic?Systolic/Diastolic?139?/?70??11/23/23?116?/?65??11/23/23?138?/?69??11/20/23?122?/?71??11/20/23?140?/?74??11/18/23?106?/?60??11/18/23?? Blood?Pressure ?-?Blood?pressure?controlled Fluid?Status ?-?Fluid?status?acceptable Interdialytic?Weight?Gain ?-?Interdialytic?weight?gain?acceptable Prescription?Compliance ?-?Prescription?compliance?acceptable ?-?Potassium?controlled Anemia ?HGB?g/dL? Transferrin?Sat.?(Calc)?%?Ferritin?ng/mL&#160 ;?10.8?11/16/23?83?11/16/23?853 ?10/23/23?? ?10.4?11/09/23?81?10/19/23?1075 ?10/07/23?? ?11.6?11/06/23?24?09/21/23?904 ?09/21/23?? YENNIFER?Administrations ??30?mcg?Mircera?11/13/23 IV?Iron?Administrations ??100?mg?Venofer?10/21/23 ??100?mg?Venofer?10/19/23 ??100?mg?Venofer?10/16/23 ?-?Anemia?reviewed Bone?and?Mineral?Metabolism ??Calcium,?Total?mg/dL?? Calcium,?Corrected?mg/dL ?&#1 60;??Phosphorous?mg/dL??? PTH-Intact,?Plasma?pg/mL ??8.4?11/16/23? 8.6?11/16/23?4.6&#16 0;?11/16/23?416?10/26/23?8.4?10/19/23? 8.5?10/19/23?4.3&#16 0;?10/19/23?569?09/21/23?8.3?09/21/23? 8.4?09/21/23?6.7&#16 0;?09/21/23?155?08/17/23?Vitamin?D?25?Hydroxy?ng/mL? ?Vitamin?D?Analogue? Administrations?Calcimimetics?7.5?09/21/23?0.25?mcg?Vitamin?D??11/23/23?&# 160;?-?16.9?08/17/23?0.25?mcg?Vitamin?D??11/20/23??& #160;?-?13.1?03/28/23?0.25?mcg?Vitamin?D??11/18/23??& #160;?-? PTH ?-?PTH?within?target ?-?Bone?and?mineral?metabolism?parameters?reviewed ?-?Calcium?controlled ?-?Phosphorus?controlled Vitamin?D?08871?IU?monthly.?Renvela?800?PO?TID Nutrition ?Albumin?g/dL? eNPCR?g/kg/day?3.7?11/16/23?? ?1.03?11/09/23?? ?3.9?10/19/23?? ?0.97?10/05/23?? ?3.9?09/21/23?? ?0.71?09/07/23?? ?-?Nutrition?reviewed ?-?Caloric?intake?addressed ?-?Referred?to?dietitian?for?further?counseling Home?Medications ?Acetaminophen?Pain?Relief?(acetaminophen) 500?mg,?oral,?2?tablet?three?times?a?day ??amlodipine?(amlodipine) 10?mg,?oral,?1?tablet?once?a?day ??carvedilol?(carvedilol) 12.5?mg,?oral,?1?tablet?twice?a?day ??duloxetine?(duloxetine) 30?mg,?oral,?1?capsule?once?a?day ??ergocalciferol?(vitamin?D2)?(ergocalciferol?(vitamin?d2)) 1,250?mcg?(50,000?unit),?oral,?1?capsule?once?a?month ??famotidine?(famotidine) 20?mg,?oral,?1?tablet?twice?a?day [take?30?minutes?before?breakfast?and?supper] ??Humalog?KwikPen?Insulin?(insulin?lispro) 100?unit/mL,?subQ, [per?sliding?scale] ??insulin?glargine?(insulin?glargine) 100?unit/mL,?subQ,?55?unit?once?a?day ??isosorbide?mononitrate?(isosorbide?mononitrate) 60?mg,?oral,?1/2?tablet?once?a?day ??loperamide?(loperamide) 2?mg,?oral,?1?capsule [as?needed] ??promethazine?(promethazine) 25?mg,?oral,?1?tablet?every?four?hours [for?nausea/vomiting] ??Renvela?(sevelamer?carbonate) 800?mg,?oral,?1?tablet?three?times?a?day [Take?with?FIRST?bite?of?food.] ??sucralfate?(sucralfate) 1?gram,?oral,?1?tablet?twice?a?day Vascular?Access?-?Active/Maturing ?Type?Position/Location?Status?Access?ID?AVFistula-Unknown?Upper?Arm-Left?Matur ing/Healing?[id number]?CVCatheter-Tunneled?Chest?Active?(In?Use)?[id number]?-?-?&# 160;?-? -?-?Vascular?access?reviewed ?-?Referral?made?for?access?revision/intervention ?-?Current?access?is?functioning?well. Exam ?-?Vital?signs?reviewed Pulmonary ?-?LUNGS?-?clear Cardiovascular ?-?CV?-?Blood?pressure?noted ?-?CV?-?RRR Feet ?-?EXT?-?no?ulcers Left?AKA Interest?and?Eligibility?(If?changes?are?made,?Please?notify?SW?via?alert?below) ?Date?of?discussion?from?transplant?assessment:?09/28/2023 ?Patient?already?on?transplant?list??No Tobacco?Cessation ??Tobacco?use:?Former?user ??Type:?Cigarettes ??Years?smoked:? 20 ??Frequency:?Daily Alerts Send?alert?to:?Dietitian Alert?comments: please?address?dropping?albumin Ziad?W?Nini?Payton,? END OF DOCUMENT
--- OUTSIDE RECORDS SUMMARY | 2023-12-01 22:19 | XMS_ITS ---
Author Name Swetha Welch Address [address] [place] [address] Phone [phone] Organization [facility] e, NA DOCUMENT DISCLAIMER Multiple document versions may exist, please be sure you review the latest version. The information in the [facility] Progress Note Document represents a providers documented clinical note containing certain health and medical information. It may not contain the complete medical history for the patient and should be independently verified. The represented time in the document is Eastern Time PROVIDER ROUNDING NOTE BASIC Patient:?Carla?Kwadwo,?1970,?53y,?F Dialysis?Location:?[facility]??LAW??-?ROLAN Attending?Research Archaeologist:?Nataliya?Nini?Payton Service?Date:?11/13/2023 Service?Provider:?Swetha?Yuri,?SUPERVISOR [employer]ITATION I?met?face?to?face?with?the?patient?today. 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 Medications?and?labs?reviewed. LAST?HOSPITALIZATION Discharge?Diagnosis:?I31.39?Other?pericardial?effusion?(noninflammatory) Admission?Date?12/18/22 Discharge?Date?12/23/22 DIALYSIS?PRESCRIPTION ??IHD?3x?Week?Start?date:?09/09/23 ??Dialyzer:?180NRe?Optiflux ??BFR:?400 ??DFR:?Autoflow?2 ??Potassium:?2.0 ??Sodium:?138 ??EDW:?90 ??Duration:?3:45 ??Calcium:?2.5 ??Bicarb:?34 ??Rx?updated?on:?09/09/2023 TREATMENT?ASSESSMENT Comments:?B/P?controlled. BP?Sit?Pre ??11/11/2023:?105/56 ??11/09/2023:?145/75 ??11/06/2023:?135/76 BP?Sit?Post ??11/11/2023:?121/72 ??11/09/2023:?152/84 ??11/06/2023:?135/76 Tx?Duration ??11/11/2023:?3:55 ??11/09/2023:?3:29 ??11/06/2023:?3:35 Missed?Treatments 0?-?last?30?days 0?-?last?60?days FLUID?ASSESSMENT Comments:?Large?IDWG's?at?times.?Advised. EDW?(kg) ??11/11/2023:?90.0 ??11/09/2023:?90.0 ??11/06/2023:?90.0 Weight?Pre?(kg) ??11/11/2023:?86.0 ??11/09/2023:?98.2 ??11/06/2023:?96.8 Weight?Post?(kg) ??11/11/2023:?84.3 ??11/09/2023:?94.1 ??11/06/2023:?92.9 PWV?(kg) ??11/11/2023:?-5.7 ??11/09/2023:?4.1 ??11/06/2023:?2.9 UF?Rate?(mL/kg/hr) ??11/11/2023:?5.1 ??11/09/2023:?12.7 ??11/06/2023:?11.9 ADEQUACY?ASSESSMENT Comments:?Adequacy?goal?met. spKt/V,?URR ??11/09/2023:?1.61,?74.0 ??10/05/2023:?1.56,?73.0 ??09/07/2023:?1.54,?75.0 ACCESS?ASSESSMENT ??Access?Type:?CVCatheter ??Access?SubType:?Tunneled ??Access?Status:?Active?(In?Use)?-?10/11/2022 ??Access?Location:?Chest ??Placed:?10/10/2022 Vascular?access?reviewed. ANEMIA?ASSESSMENT Comments:?Hgb?trending?down?but?still?within?goal.? HGB ??11/09/2023:?10.4 ??11/06/2023:?11.6 ??10/26/2023:?11.3 ?? Ferritin ??10/23/2023:?853.0 ??10/07/2023:?1075.0 ??09/21/2023:?904.0 Iron?Sucrose?(Venofer)?(mg) ??10/21/2023:?100 ??10/19/2023:?100 ??10/16/2023:?100 BMM?ASSESSMENT PTH?controlled.?Calcium?controlled.?Phosphorus?controlled.? Phosphorus,?Calcium ??10/19/2023:?4.3,?8.4 ??09/21/2023:?6.7,?8.3 ??08/17/2023:?3.3,?8.4 ?? PTH,?Intact ??10/26/2023:?416.0 ??09/21/2023:?569.0 ??08/17/2023:?155.0 Vitamin?D?(Calcitriol)?Oral?(mcg) ??11/11/2023:?0.25 ??11/09/2023:?0.25 ??11/06/2023:?0.25 NUTRITION?ASSESSMENT Potassium?controlled.?Albumin?below?goal.?Referred?to?dietitian. Albumin,?Potassium ??10/19/2023:?3.9,?5.3 ??09/21/2023:?3.9,?4.9 ??08/17/2023:?3.2,?4.3 ?? eNPCR ??11/09/2023:?1.03 ??10/05/2023:?0.97 ??09/07/2023:?0.71 PHYSICAL?EXAM Exam?Performed.?Vital?Signs?Reviewed.?Lungs?-?Clear.?CV&#160 ;-?Blood?pressure?noted.?CV?-?RRR.?EXT?-?No?edema. DIAGNOSIS Chief?Complaint:?N18.6?End?stage?renal?disease Patient?data?updated?11/13/2023?at?11:55?AM Signed?By:?Yuri,?Swetha,?SUPERVISOR BAKERY [employer]ITATION??on?11/13/2023?11:56:35?AM END OF DOCUMENT
--- OUTSIDE RECORDS SUMMARY | 2023-12-01 22:19 | XMS_ITS ---
Author Name Swetha Welch Address [address] [place] [address] Phone [phone] Organization [facility] e, NA DOCUMENT DISCLAIMER Multiple document versions may exist, please be sure you review the latest version. The information in the [facility] Progress Note Document represents a providers documented clinical note containing certain health and medical information. It may not contain the complete medical history for the patient and should be independently verified. The represented time in the document is Eastern Time PROVIDER ROUNDING NOTE BASIC Patient:?Carla?Kwadwo,?1970,?53y,?F Dialysis?Location:?[facility]??LAW??-?ROLAN Attending?Irrigation Technician:?Nataliya?Nini?Payton Service?Date:?11/02/2023 Service?Provider:?Swetha?Yuri,?CAREER TECHNOLOGY TEACHER I?met?face?to?face?with?the?patient?today. 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 Medications?and?labs?reviewed. LAST?HOSPITALIZATION Discharge?Diagnosis:?I31.39?Other?pericardial?effusion?(noninflammatory) Admission?Date?12/18/22 Discharge?Date?12/23/22 DIALYSIS?PRESCRIPTION ??IHD?3x?Week?Start?date:?09/09/23 ??Dialyzer:?180NRe?Optiflux ??BFR:?400 ??DFR:?Autoflow?2 ??Potassium:?2.0 ??Sodium:?138 ??EDW:?90 ??Duration:?3:45 ??Calcium:?2.5 ??Bicarb:?34 ??Rx?updated?on:?09/09/2023 TREATMENT?ASSESSMENT Comments:?B/P?controlled. BP?Sit?Pre ??10/30/2023:?114/60 ??10/28/2023:?142/77 ??10/26/2023:?133/69 BP?Sit?Post ??10/30/2023:?154/81 ??10/28/2023:?132/83 ??10/26/2023:?137/70 Tx?Duration ??10/30/2023:?3:43 ??10/28/2023:?3:50 ??10/26/2023:?3:32 Missed?Treatments 0?-?last?30?days 0?-?last?60?days FLUID?ASSESSMENT Comments:?Large?IDWG's.?Advised. EDW?(kg) ??10/30/2023:?90.0 ??10/28/2023:?90.0 ??10/26/2023:?90.0 Weight?Pre?(kg) ??10/30/2023:?95.9 ??10/28/2023:?96.9 ??10/26/2023:?97.9 Weight?Post?(kg) ??10/30/2023:?93.2 ??10/28/2023:?92.9 ??10/26/2023:?94.4 PWV?(kg) ??10/30/2023:?3.2 ??10/28/2023:?2.9 ??10/26/2023:?4.4 UF?Rate?(mL/kg/hr) ??10/30/2023:?7.8 ??10/28/2023:?11.4 ??10/26/2023:?10.3 ADEQUACY?ASSESSMENT Comments:?Adequacy?target?met?this?month. spKt/V,?URR ??10/05/2023:?1.56,?73.0 ??09/07/2023:?1.54,?75.0 ??08/28/2023:?1.34,?69.0 ACCESS?ASSESSMENT ??Access?Type:?CVCatheter ??Access?SubType:?Tunneled ??Access?Status:?Active?(In?Use)?-?10/11/2022 ??Access?Location:?Chest ??Placed:?10/10/2022 Vascular?access?reviewed.?New?access?developing?-?awaiting?use. ANEMIA?ASSESSMENT HGB?at?goal.? HGB,?TSAT ??10/26/2023:?11.3,?- ??10/19/2023:?10.8,?81.0 ??10/12/2023:?11.3,?- ?? Ferritin ??10/23/2023:?853.0 ??10/07/2023:?1075.0 ??09/21/2023:?904.0 Iron?Sucrose?(Venofer)?(mg) ??10/21/2023:?100 ??10/19/2023:?100 ??10/16/2023:?100 BMM?ASSESSMENT Calcium?controlled.?Phosphorus?controlled.? Phosphorus,?Calcium ??10/19/2023:?4.3,?8.4 ??09/21/2023:?6.7,?8.3 ??08/17/2023:?3.3,?8.4 ?? PTH,?Intact ??10/26/2023:?416.0 ??09/21/2023:?569.0 ??08/17/2023:?155.0 Vitamin?D?(Calcitriol)?Oral?(mcg) ??10/30/2023:?0.25 ??10/28/2023:?0.25 ??10/26/2023:?0.25 NUTRITION?ASSESSMENT Potassium?controlled.?Albumin?below?goal.? Albumin,?Potassium ??10/19/2023:?3.9,?5.3 ??09/21/2023:?3.9,?4.9 ??08/17/2023:?3.2,?4.3 ?? eNPCR ??10/05/2023:?0.97 ??09/07/2023:?0.71 ??08/28/2023:?0.69 PHYSICAL?EXAM Exam?Performed.?Vital?Signs?Reviewed.?Lungs?-?Clear.?CV&#160 ;-?Blood?pressure?noted.?EXT?-?No?edema. 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
--- OUTSIDE RECORDS SUMMARY | 2023-12-01 22:19 | XMS_ITS ---
Author Name Nataliya Mcclendon Address [address] [place] [address] Phone [phone] Organization [facility] e, NA DOCUMENT DISCLAIMER Multiple document versions may exist, please be sure you review the latest version. The information in the [facility] Progress Note Document represents a providers documented clinical note containing certain health and medical information. It may not contain the complete medical history for the patient and should be independently verified. The represented time in the document is Eastern Time PROVIDER ROUNDING NOTE COMP HD PROVIDER?ROUNDING?NOTE?COMP?HD Clinic:?[address] [place] [address]??LAW??ROLAN Visit?date:?08/17/2023?00:00?Modality/setting:?IHD Carla?Burkett?-?Chart?#:?[id number] Method?of?Interaction:?Face?to?face Date?of?Interaction:?10/14/2023 ?-?Patient?is?stable ?-?Optimal?weight?addressed?with?patient?and?staff. ?-?Medications?and?labs?reviewed. Patient?issues?include: Stable.?Had?recent?fall?with?left?arm/left?hip?fractures. Prior?Treatment:?10/12/2023? Dialyzer:?180NRe?Optiflux? Dialysate:?2.0?K,?2.5 Ca,?1.0?Mg,?100?Dextrose?(G2251)? Prescribed?Time:?3:45?Avg?BFR:?410?Wt?Gain (kg):?3.90? Actual?Time:?03:58?Avg?DFR:?800?&#16 0;EDW?(kg):?90.00? Adequacy ?spKt/V?eKdrt/V?&#160 ; ???OLC?(Del)?spKtv?URR?%?1.56?10/05/23?? ?1.37?10/05/23?? ?1.60?0 10/12/23?? ?73?10/05/23? ?1.54?09/07/23?? ?1.31?09/07/23?? ?1.69?0 10/09/23?? ?75?09/07/23? ?1.34?08/28/23?? ?1.18?08/28/23?? ?1.32?0 10/07/23?? ?69?08/28/23? ?Potassium,?Serum?mEq/L?Bicarbonate?mEq/L??&# 160;?Creatinine?mg/dL?4.9?09/21/23? 22?09/21/23?3. 55?09/21/23?4.3?08/17/23? 24?08/17/23?3. 01?08/17/23?3.5?06/23/23? 30?06/23/23?2. 65?06/23/23?-?Adequacy?parameters?reviewed Adequacy ?-?Adequacy?target?met ?Sitting?BP?Pre?Sitting BP?Post?Systolic/Diastolic?Systolic/Diastolic?128?/?66??10/12/23?148?/?75??10/12/23?139?/?71??10/09/23?139?/?66??10/09/23?140?/?69??10/07/23?139?/?73??10/07/23?? Blood?Pressure ?-?Blood?pressure?controlled Fluid?Status ?-?Fluid?status?acceptable Interdialytic?Weight?Gain ?-?Interdialytic?weight?gain?acceptable Prescription?Compliance ?-?Prescription?compliance?acceptable ?-?Potassium?controlled Anemia ?HGB?g/dL? Transferrin?Sat.?(Calc)?%?Ferritin?ng/mL&#160 ;?11.3?10/12/23?24?09/21/23?1075 ?10/07/23?? ?11.1?10/05/23?22?08/17/23?904 ?09/21/23?? ?10.9?09/28/23?29?06/23/23?855 ?09/07/23?? IV?Iron?Administrations ??100?mg?Venofer?10/12/23 ??100?mg?Venofer?10/05/23 ??100?mg?Venofer?10/02/23 ?-?Anemia?reviewed Bone?and?Mineral?Metabolism ??Calcium,?Total?mg/dL?? Calcium,?Corrected?mg/dL ?&#1 60;??Phosphorous?mg/dL??? PTH-Intact,?Plasma?pg/mL ??8.3?09/21/23? 8.4?09/21/23?6.7&#16 0;?09/21/23?569?09/21/23?8.4?08/17/23? 9.0?08/17/23?3.3&#16 0;?08/17/23?155?08/17/23?7.7?06/23/23? 8.1?06/23/23?5.4&#16 0;?06/23/23?472?06/23/23?Vitamin?D?25?Hydroxy?ng/mL? ?Vitamin?D?Analogue? Administrations?Calcimimetics?7.5?09/21/23?0.25?mcg?Vitamin?D??10/12/23?&# 160;?-?16.9?08/17/23?0.25?mcg?Vitamin?D??10/09/23??& #160;?-?13.1?03/28/23?0.25?mcg?Vitamin?D??10/07/23??& #160;?-? PTH ?-?PTH?within?target ?-?Bone?and?mineral?metabolism?parameters?reviewed ?-?Counseled?regarding?dietary?compliance ?-?Hyperphosphatemia?noted ?-?Referred?to?dietitian?for?further?counseling Vitamin?D?41328?IU?monthly.?Renvela?800?PO?TID Nutrition ?Albumin?g/dL? eNPCR?g/kg/day?3.9?09/21/23?? ?0.97?10/05/23?? ?3.2?08/17/23?? ?0.71?09/07/23?? ?3.5?06/23/23?? ?0.69?08/28/23?? ?-?Nutrition?reviewed Home?Medications ?Acerola?C?(ascorbic?acid?(vitamin?c)) 500?mg,?oral,?1?tablet?once?a?day ??Acetaminophen?Pain?Relief?(acetaminophen) 500?mg,?oral,?2?tablet?three?times?a?day ??amlodipine?(amlodipine) 10?mg,?oral,?1?tablet?once?a?day ??Benadryl?(diphenhydramine?hcl) 25?mg,?oral,?1?capsule?three?times?a?day [As?needed?for?itching] ??carvedilol?(carvedilol) 12.5?mg,?oral,?1?tablet?twice?a?day ??cefdinir?(cefdinir) 300?mg,?oral,?1?capsule?twice?a?day ??docusate?sodium?(docusate?sodium) 100?mg,?oral,?1?capsule?twice?a?day [as?neede?for?constipation] ??Dulcolax?(bisacodyl)?(bisacodyl) 10?mg,?rect,?1?suppository?once?a?day [for?constipation] ??duloxetine?(duloxetine) 30?mg,?oral,?1?capsule?once?a?day ??ergocalciferol?(vitamin?D2)?(ergocalciferol?(vitamin?d2)) 1,250?mcg?(50,000?unit),?oral,?1?capsule?once?a?month ??famotidine?(famotidine) 20?mg,?oral,?1?tablet?twice?a?day [take?30?minutes?before?breakfast?and?supper] ??Humalog?KwikPen?Insulin?(insulin?lispro) 100?unit/mL,?subQ, [per?sliding?scale] ??hydrocodone-acetaminophen?(hydrocodone-acetaminophen) 5-325?mg,?oral,?1?tablet?every?four?hours ??insulin?glargine?(insulin?glargine) 100?unit/mL,?subQ,?55?unit?once?a?day... There?are?additional?active?home?medications?for?this?patien t.?Please?view?in?Clinical?Summary Vascular?Access?-?Active/Maturing ?Type?Position/Location?Status?Access?ID?AVFistula-Unknown?Upper?Arm-Left?Matur ing/Healing?[id number]?CVCatheter-Tunneled?Chest?Active?(In?Use)?[id number]?-?-?&# 160;?-? -?-?Vascular?access?reviewed ?-?New?access?developing?-?awaiting?use ?-?Current?access?is?functioning?well. Exam ?-?Vital?signs?reviewed Pulmonary ?-?LUNGS?-?clear Cardiovascular ?-?CV?-?Blood?pressure?noted ?-?CV?-?RRR Edema ?-?EXT?-?No?edema Feet ?-?EXT?-?no?ulcers Left?AKA Interest?and?Eligibility?(If?changes?are?made,?Please?notify?SW?via?alert?below) ?Date?of?discussion?from?transplant?assessment:?09/28/2023 ?Patient?already?on?transplant?list??No Tobacco?Cessation ??Type:?Cigarettes ??Years?smoked:? 20 ??Frequency:?Daily Ziad?W?Nini?Payton,? END OF DOCUMENT
--- OUTSIDE RECORDS SUMMARY | 2023-12-01 22:19 | XMS_ITS ---
Author Name Nataliya Mcclendon Address [address] [place] [address] Phone [phone] Organization [facility] e, NA DOCUMENT DISCLAIMER Multiple document versions may exist, please be sure you review the latest version. The information in the [facility] Progress Note Document represents a providers documented clinical note containing certain health and medical information. It may not contain the complete medical history for the patient and should be independently verified. The represented time in the document is Eastern Time PROVIDER ROUNDING NOTE BASIC HD PROVIDER?ROUNDING?NOTE?BASIC?HD Clinic:?[address] [place] [address]??[place]??ROLAN Visit?date:?08/17/2023?00:00?Modality/setting:?IHD Carla?Burkett?-?Chart?#:?[id number] Method?of?Interaction:?Face?to?face Date?of?Interaction:?09/28/2023 ?-?Patient?is?stable ?-?Medications?and?labs?reviewed. Patient?issues?include: Stable. Prior?Treatment:?09/28/2023? Dialyzer:?180NRe?Optiflux? Dialysate:?2.0?K,?2.5 Ca,?1.0?Mg,?100?Dextrose?(G2251)? Prescribed?Time:?3:45? Actual?Time:?03:12? Avg?BFR:?410? Avg?DFR:?800? Wt?Gain?(kg):?5.20? EDW?(kg):?90.00? 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 Home?Medications ?Acerola?C?(ascorbic?acid?(vitamin?c)) 500?mg,?oral,?1?tablet?once?a?day ??Acetaminophen?Pain?Relief?(acetaminophen) 500?mg,?oral,?2?tablet?three?times?a?day ??amlodipine?(amlodipine) 10?mg,?oral,?1?tablet?once?a?day ??Benadryl?(diphenhydramine?hcl) 25?mg,?oral,?1?capsule?three?times?a?day [As?needed?for?itching] ??carvedilol?(carvedilol) 12.5?mg,?oral,?1?tablet?twice?a?day ??cefdinir?(cefdinir) 300?mg,?oral,?1?capsule?twice?a?day ??docusate?sodium?(docusate?sodium) 100?mg,?oral,?1?capsule?twice?a?day [as?neede?for?constipation] ??Dulcolax?(bisacodyl)?(bisacodyl) 10?mg,?rect,?1?suppository?once?a?day [for?constipation] ??duloxetine?(duloxetine) 30?mg,?oral,?1?capsule?once?a?day ??ergocalciferol?(vitamin?D2)?(ergocalciferol?(vitamin?d2)) 1,250?mcg?(50,000?unit),?oral,?1?capsule?once?a?month ??famotidine?(famotidine) 20?mg,?oral,?1?tablet?twice?a?day [take?30?minutes?before?breakfast?and?supper] ??Humalog?KwikPen?Insulin?(insulin?lispro) 100?unit/mL,?subQ, [per?sliding?scale] ??hydrocodone-acetaminophen?(hydrocodone-acetaminophen) 5-325?mg,?oral,?1?tablet?every?four?hours ??insulin?glargine?(insulin?glargine) 100?unit/mL,?subQ,?55?unit?once?a?day... There?are?additional?active?home?medications?for?this?patien t.?Please?view?in?Clinical?Summary Alert?comments: compliance?with?phos?binders?was?advised Ziad?W?Nini?Payton,? END OF DOCUMENT
--- OUTSIDE RECORDS SUMMARY | 2023-12-01 22:19 | XMS_ITS ---
Author Name Swetha Welch Address [address] [place] [address] Phone [phone] Organization [facility] e, NA DOCUMENT DISCLAIMER Multiple document versions may exist, please be sure you review the latest version. The information in the [facility] Progress Note Document represents a providers documented clinical note containing certain health and medical information. It may not contain the complete medical history for the patient and should be independently verified. The represented time in the document is Eastern Time PROVIDER ROUNDING NOTE BASIC Patient:?Carla?Kwadwo,?1970,?53y,?F Dialysis?Location:?[facility]??LAW??-?ROLAN Attending?Collar Padder Blindstitch:?Nataliya?Nini?Payton Service?Date:?10/21/2023 Service?Provider:?Swetah?Yuri,?UNIX DEVELOPER I?met?face?to?face?with?the?patient?today. 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 LAST?HOSPITALIZATION Discharge?Diagnosis:?I31.39?Other?pericardial?effusion?(noninflammatory) Admission?Date?12/18/22 Discharge?Date?12/23/22 DIALYSIS?PRESCRIPTION ??IHD?3x?Week?Start?date:?09/09/23 ??Dialyzer:?180NRe?Optiflux ??BFR:?400 ??DFR:?Autoflow?2 ??Potassium:?2.0 ??Sodium:?138 ??EDW:?90 ??Duration:?3:45 ??Calcium:?2.5 ??Bicarb:?34 ??Rx?updated?on:?09/09/2023 TREATMENT?ASSESSMENT Blood?pressure?controlled.?No?changes?indicated.? BP?Sit?Pre ??10/19/2023:?147/71 ??10/16/2023:?113/55 ??10/14/2023:?125/70 BP?Sit?Post ??10/19/2023:?141/85 ??10/16/2023:?135/66 ??10/14/2023:?131/72 Tx?Duration ??10/19/2023:?3:53 ??10/16/2023:?3:43 ??10/14/2023:?3:38 Missed?Treatments 0?-?last?30?days 0?-?last?60?days FLUID?ASSESSMENT Fluid?status?acceptable.?Interdialytic?weight?gain?acceptable.?No ?changes?indicated.? EDW?(kg) ??10/19/2023:?90.0 ??10/16/2023:?90.0 ??10/14/2023:?90.0 Weight?Pre?(kg) ??10/19/2023:?96.5 ??10/16/2023:?93.0 ??10/14/2023:?93.0 Weight?Post?(kg) ??10/19/2023:?93.4 ??10/16/2023:?90.8 ??10/14/2023:?90.3 PWV?(kg) ??10/19/2023:?3.4 ??10/16/2023:?0.8 ??10/14/2023:?0.3 UF?Rate?(mL/kg/hr) ??10/19/2023:?8.7 ??10/16/2023:?6.5 ??10/14/2023:?8.2 ADEQUACY?ASSESSMENT Adequacy?target?met.?Prescription?compliance?acceptable.?No?changes?indicated.? spKt/V,?URR ??10/05/2023:?1.56,?73.0 ??09/07/2023:?1.54,?75.0 ??08/28/2023:?1.34,?69.0 ACCESS?ASSESSMENT ??Access?Type:?CVCatheter ??Access?SubType:?Tunneled ??Access?Status:?Active?(In?Use)?-?10/11/2022 ??Access?Location:?Chest ??Placed:?10/10/2022 Vascular?access?reviewed. ANEMIA?ASSESSMENT HGB?at?goal.?No?changes?indicated.? HGB,?TSAT ??10/19/2023:?10.8,?81.0 ??10/12/2023:?11.3,?- ??10/05/2023:?11.1,?- ?? Ferritin ??10/07/2023:?1075.0 ??09/21/2023:?904.0 ??09/07/2023:?855.0 Iron?Sucrose?(Venofer)?(mg) ??10/19/2023:?100 ??10/16/2023:?100 ??10/14/2023:?100 BMM?ASSESSMENT Calcium?low.?Phosphorus?controlled.?No?changes?indicated.? Phosphorus,?Calcium ??10/19/2023:?4.3,?8.4 ??09/21/2023:?6.7,?8.3 ??08/17/2023:?3.3,?8.4 ?? PTH,?Intact ??09/21/2023:?569.0 ??08/17/2023:?155.0 ??06/23/2023:?472.0 Vitamin?D?(Calcitriol)?Oral?(mcg) ??10/19/2023:?0.25 ??10/16/2023:?0.25 ??10/14/2023:?0.25 NUTRITION?ASSESSMENT Potassium?above?goal.?Albumin?below?goal.?Diet?reviewed?with?patient.? Albumin,?Potassium ??10/19/2023:?3.9,?5.3 ??09/21/2023:?3.9,?4.9 ??08/17/2023:?3.2,?4.3 ?? eNPCR ??10/05/2023:?0.97 ??09/07/2023:?0.71 ??08/28/2023:?0.69 PHYSICAL?EXAM Exam?Performed.?Vital?Signs?Reviewed.?Lungs?-?Clear.?CV&#160 ;-?Blood?pressure?noted.?CV?-?RRR.?EXT?-?No?edema. DIAGNOSIS Chief?Complaint:?N18.6?End?stage?renal?disease Patient?data?updated?10/21/2023?at?12:25?PM Signed?By:?Yuri,?Swetha,?UNIX DEVELOPER??on?10/21/2023?12:27:18?PM END OF DOCUMENT
--- OUTSIDE RECORDS SUMMARY | 2023-12-01 22:19 | XMS_ITS ---
Author Name Swetha Welch Address [address] [place] [address] Phone [phone] Organization [facility] e, NA DOCUMENT DISCLAIMER Multiple document versions may exist, please be sure you review the latest version. The information in the [facility] Progress Note Document represents a providers documented clinical note containing certain health and medical information. It may not contain the complete medical history for the patient and should be independently verified. The represented time in the document is Eastern Time PROVIDER ROUNDING NOTE BASIC Patient:?Carla?Kwadwo,?1970,?53y,?F Dialysis?Location:?[facility]??LAW??-?ROLAN Attending?Optical Engineering Technician:?Nataliya?Nini?Payton Service?Date:?10/19/2023 Service?Provider:?Swetha?Yuri,?BUSINESS INTELLIGENCE ETL DEVELOPER I?met?face?to?face?with?the?patient?today. 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 LAST?HOSPITALIZATION Discharge?Diagnosis:?I31.39?Other?pericardial?effusion?(noninflammatory) Admission?Date?12/18/22 Discharge?Date?12/23/22 DIALYSIS?PRESCRIPTION ??IHD?3x?Week?Start?date:?09/09/23 ??Dialyzer:?180NRe?Optiflux ??BFR:?400 ??DFR:?Autoflow?2 ??Potassium:?2.0 ??Sodium:?138 ??EDW:?90 ??Duration:?3:45 ??Calcium:?2.5 ??Bicarb:?34 ??Rx?updated?on:?09/09/2023 TREATMENT?ASSESSMENT BP?Sit?Pre ??10/16/2023:?113/55 ??10/14/2023:?125/70 ??10/12/2023:?128/66 BP?Sit?Post ??10/16/2023:?135/66 ??10/14/2023:?131/72 ??10/12/2023:?148/75 Tx?Duration ??10/16/2023:?3:43 ??10/14/2023:?3:38 ??10/12/2023:?3:58 Missed?Treatments 0?-?last?30?days 0?-?last?60?days FLUID?ASSESSMENT Fluid?status?acceptable.?Interdialytic?weight?gain?acceptable.? EDW?(kg) ??10/16/2023:?90.0 ??10/14/2023:?90.0 ??10/12/2023:?90.0 Weight?Pre?(kg) ??10/16/2023:?93.0 ??10/14/2023:?93.0 ??10/12/2023:?93.9 Weight?Post?(kg) ??10/16/2023:?90.8 ??10/14/2023:?90.3 ??10/12/2023:?91.4 PWV?(kg) ??10/16/2023:?0.8 ??10/14/2023:?0.3 ??10/12/2023:?1.4 UF?Rate?(mL/kg/hr) ??10/16/2023:?6.5 ??10/14/2023:?8.2 ??10/12/2023:?7 ADEQUACY?ASSESSMENT Adequacy?target?met.? spKt/V,?URR ??10/05/2023:?1.56,?73.0 ??09/07/2023:?1.54,?75.0 ??08/28/2023:?1.34,?69.0 ACCESS?ASSESSMENT ??Access?Type:?CVCatheter ??Access?SubType:?Tunneled ??Access?Status:?Active?(In?Use)?-?10/11/2022 ??Access?Location:?Chest ??Placed:?10/10/2022 Vascular?access?reviewed. ANEMIA?ASSESSMENT HGB?at?goal.?YENNIFER?dose?adequate.?No?changes?indicated.? HGB ??10/12/2023:?11.3 ??10/05/2023:?11.1 ??09/28/2023:?10.9 ?? Ferritin ??10/07/2023:?1075.0 ??09/21/2023:?904.0 ??09/07/2023:?855.0 Iron?Sucrose?(Venofer)?(mg) ??10/16/2023:?100 ??10/14/2023:?100 ??10/12/2023:?100 BMM?ASSESSMENT Comments:?No?October?labs Phosphorus,?Calcium ??09/21/2023:?6.7,?8.3 ??08/17/2023:?3.3,?8.4 ??06/23/2023:?5.4,?7.7 ?? PTH,?Intact ??09/21/2023:?569.0 ??08/17/2023:?155.0 ??06/23/2023:?472.0 Vitamin?D?(Calcitriol)?Oral?(mcg) ??10/16/2023:?0.25 ??10/14/2023:?0.25 ??10/12/2023:?0.25 NUTRITION?ASSESSMENT Comments:?No?October?labs Albumin,?Potassium ??09/21/2023:?3.9,?4.9 ??08/17/2023:?3.2,?4.3 ??06/23/2023:?3.5,?3.5 ?? eNPCR ??10/05/2023:?0.97 ??09/07/2023:?0.71 ??08/28/2023:?0.69 PHYSICAL?EXAM Exam?Performed.?Vital?Signs?Reviewed.?Lungs?-?Clear.?CV&#160 ;-?Blood?pressure?noted.?CV?-?RRR.?EXT?-?1+?edema. DIAGNOSIS Chief?Complaint:?N18.6?End?stage?renal?disease Patient?is?stable. Patient?data?updated?10/19/2023?at?11:13?AM Signed?By:?Yuri,?Swetha,?BUSINESS INTELLIGENCE ETL DEVELOPER??on?10/19/2023?11:16:34?AM END OF DOCUMENT
--- OUTSIDE RECORDS SUMMARY | 2023-12-01 22:19 | XMS_ITS ---
Author Name Nataliya Mcclendon Address [address] [place] [address] Phone [phone] Organization [facility] e, NA DOCUMENT DISCLAIMER Multiple document versions may exist, please be sure you review the latest version. The information in the [facility] Progress Note Document represents a providers documented clinical note containing certain health and medical information. It may not contain the complete medical history for the patient and should be independently verified. The represented time in the document is Eastern Time PROVIDER ROUNDING NOTE BASIC HD PROVIDER?ROUNDING?NOTE?BASIC?HD Clinic:?[address] [place] [address]??[place]??ROLAN Visit?date:?08/17/2023?00:00?Modality/setting:?IHD Carla?Burkett?-?Chart?#:?[id number] Method?of?Interaction:?Face?to?face Date?of?Interaction:?10/07/2023 ?-?Patient?is?stable ?-?Medications?and?labs?reviewed. Patient?issues?include: Stable. Prior?Treatment:?10/12/2023? Dialyzer:?180NRe?Optiflux? Dialysate:?2.0?K,?2.5 Ca,?1.0?Mg,?100?Dextrose?(G2251)? Prescribed?Time:?3:45? Actual?Time:?03:58? Avg?BFR:?410? Avg?DFR:?800? Wt?Gain?(kg):?3.90? EDW?(kg):?90.00? 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 Home?Medications ?Acerola?C?(ascorbic?acid?(vitamin?c)) 500?mg,?oral,?1?tablet?once?a?day ??Acetaminophen?Pain?Relief?(acetaminophen) 500?mg,?oral,?2?tablet?three?times?a?day ??amlodipine?(amlodipine) 10?mg,?oral,?1?tablet?once?a?day ??Benadryl?(diphenhydramine?hcl) 25?mg,?oral,?1?capsule?three?times?a?day [As?needed?for?itching] ??carvedilol?(carvedilol) 12.5?mg,?oral,?1?tablet?twice?a?day ??cefdinir?(cefdinir) 300?mg,?oral,?1?capsule?twice?a?day ??docusate?sodium?(docusate?sodium) 100?mg,?oral,?1?capsule?twice?a?day [as?neede?for?constipation] ??Dulcolax?(bisacodyl)?(bisacodyl) 10?mg,?rect,?1?suppository?once?a?day [for?constipation] ??duloxetine?(duloxetine) 30?mg,?oral,?1?capsule?once?a?day ??ergocalciferol?(vitamin?D2)?(ergocalciferol?(vitamin?d2)) 1,250?mcg?(50,000?unit),?oral,?1?capsule?once?a?month ??famotidine?(famotidine) 20?mg,?oral,?1?tablet?twice?a?day [take?30?minutes?before?breakfast?and?supper] ??Humalog?KwikPen?Insulin?(insulin?lispro) 100?unit/mL,?subQ, [per?sliding?scale] ??hydrocodone-acetaminophen?(hydrocodone-acetaminophen) 5-325?mg,?oral,?1?tablet?every?four?hours ??insulin?glargine?(insulin?glargine) 100?unit/mL,?subQ,?55?unit?once?a?day... There?are?additional?active?home?medications?for?this?patien t.?Please?view?in?Clinical?Summary Alert?comments: compliance?with?phos?binders?was?advised Ziad?W?Nini?Payton,? END OF DOCUMENT
--- OUTSIDE RECORDS SUMMARY | 2023-12-01 22:19 | XMS_ITS ---
Author Name Nataliya Mcclendon Address [address] [place] [address] Phone [phone] Organization [facility] e, NA DOCUMENT DISCLAIMER Multiple document versions may exist, please be sure you review the latest version. The information in the [facility] Progress Note Document represents a providers documented clinical note containing certain health and medical information. It may not contain the complete medical history for the patient and should be independently verified. The represented time in the document is Eastern Time PROVIDER ROUNDING NOTE BASIC HD PROVIDER?ROUNDING?NOTE?BASIC?HD Clinic:?[address] [place] [address]??[place]??ROLAN Visit?date:?08/17/2023?00:00?Modality/setting:?IHD Carla?Burkett?-?Chart?#:?[id number] Method?of?Interaction:?Face?to?face Date?of?Interaction:?09/23/2023 ?-?Patient?is?stable ?-?Medications?and?labs?reviewed. Patient?issues?include: Stable.?Still?at?[place].LUE?in?sling?and?LLE?in?stabelizing?device Prior?Treatment:?09/21/2023? Dialyzer:?180NRe?Optiflux? Dialysate:?2.0?K,?2.5 Ca,?1.0?Mg,?100?Dextrose?(G2251)? Prescribed?Time:?3:45? Actual?Time:?03:32? Avg?BFR:?400? Avg?DFR:?800? Wt?Gain?(kg):?4.40? EDW?(kg):?90.00? 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 Home?Medications ?Acerola?C?(ascorbic?acid?(vitamin?c)) 500?mg,?oral,?1?tablet?once?a?day ??Acetaminophen?Pain?Relief?(acetaminophen) 500?mg,?oral,?2?tablet?three?times?a?day ??amlodipine?(amlodipine) 10?mg,?oral,?1?tablet?once?a?day ??Benadryl?(diphenhydramine?hcl) 25?mg,?oral,?1?capsule?three?times?a?day [As?needed?for?itching] ??carvedilol?(carvedilol) 12.5?mg,?oral,?1?tablet?twice?a?day ??cefdinir?(cefdinir) 300?mg,?oral,?1?capsule?twice?a?day ??docusate?sodium?(docusate?sodium) 100?mg,?oral,?1?capsule?twice?a?day [as?neede?for?constipation] ??Dulcolax?(bisacodyl)?(bisacodyl) 10?mg,?rect,?1?suppository?once?a?day [for?constipation] ??duloxetine?(duloxetine) 30?mg,?oral,?1?capsule?once?a?day ??ergocalciferol?(vitamin?D2)?(ergocalciferol?(vitamin?d2)) 1,250?mcg?(50,000?unit),?oral,?1?capsule?once?a?month ??famotidine?(famotidine) 20?mg,?oral,?1?tablet?twice?a?day [take?30?minutes?before?breakfast?and?supper] ??Humalog?KwikPen?Insulin?(insulin?lispro) 100?unit/mL,?subQ, [per?sliding?scale] ??hydrocodone-acetaminophen?(hydrocodone-acetaminophen) 5-325?mg,?oral,?1?tablet?every?four?hours ??insulin?glargine?(insulin?glargine) 100?unit/mL,?subQ,?55?unit?once?a?day... There?are?additional?active?home?medications?for?this?patien t.?Please?view?in?Clinical?Summary Alert?comments: compliance?with?phos?binders?was?advised Ziad?W?Nini?Payton,? END OF DOCUMENT
--- OUTSIDE RECORDS SUMMARY | 2023-12-01 22:19 | XMS_ITS ---
Author Name Swetha Welch Address [address] [place] [address] Phone [phone] Organization [facility] e, NA DOCUMENT DISCLAIMER Multiple document versions may exist, please be sure you review the latest version. The information in the [facility] Progress Note Document represents a providers documented clinical note containing certain health and medical information. It may not contain the complete medical history for the patient and should be independently verified. The represented time in the document is Eastern Time PROVIDER ROUNDING NOTE BASIC Patient:?Carla?Kwadwo,?1970,?53y,?F Dialysis?Location:?[facility]??[facility]??-?[facility] Attending?Finishing Wire Sawyer:?Nataliya?Nini?Payton Service?Date:?11/11/2023 Service?Provider:?Swetha?Yuri,?UPPER CUTTER OUT I?met?face?to?face?with?the?patient?today. 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 Medications?and?labs?reviewed. LAST?HOSPITALIZATION Discharge?Diagnosis:?I31.39?Other?pericardial?effusion?(noninflammatory) Admission?Date?12/18/22 Discharge?Date?12/23/22 DIALYSIS?PRESCRIPTION ??IHD?3x?Week?Start?date:?09/09/23 ??Dialyzer:?180NRe?Optiflux ??BFR:?400 ??DFR:?Autoflow?2 ??Potassium:?2.0 ??Sodium:?138 ??EDW:?90 ??Duration:?3:45 ??Calcium:?2.5 ??Bicarb:?34 ??Rx?updated?on:?09/09/2023 TREATMENT?ASSESSMENT Comments:?B/P?controlled. BP?Sit?Pre ??11/09/2023:?145/75 ??11/06/2023:?135/76 ??11/04/2023:?129/76 BP?Sit?Post ??11/09/2023:?152/84 ??11/06/2023:?135/76 ??11/04/2023:?128/77 Tx?Duration ??11/09/2023:?3:29 ??11/06/2023:?3:35 ??11/04/2023:?3:04 Missed?Treatments 0?-?last?30?days 0?-?last?60?days FLUID?ASSESSMENT Comments:?Large?IDWG's?at?times.?Advised. EDW?(kg) ??11/09/2023:?90.0 ??11/06/2023:?90.0 ??11/04/2023:?90.0 Weight?Pre?(kg) ??11/09/2023:?98.2 ??11/06/2023:?96.8 ??11/04/2023:?97.4 Weight?Post?(kg) ??11/09/2023:?94.1 ??11/06/2023:?92.9 ??11/04/2023:?94.5 PWV?(kg) ??11/09/2023:?4.1 ??11/06/2023:?2.9 ??11/04/2023:?4.5 UF?Rate?(mL/kg/hr) ??11/09/2023:?12.7 ??11/06/2023:?11.9 ??11/04/2023:?10 ADEQUACY?ASSESSMENT Comments:?Adequacy?target?met?this?month. spKt/V,?URR ??11/09/2023:?1.61,?74.0 ??10/05/2023:?1.56,?73.0 ??09/07/2023:?1.54,?75.0 ACCESS?ASSESSMENT ??Access?Type:?CVCatheter ??Access?SubType:?Tunneled ??Access?Status:?Active?(In?Use)?-?10/11/2022 ??Access?Location:?Chest ??Placed:?10/10/2022 Vascular?access?reviewed. ANEMIA?ASSESSMENT Comments:?Hgb?trending?down?but?still?within?goal.? Treatment?protocol?ordered.? HGB ??11/09/2023:?10.4 ??11/06/2023:?11.6 ??10/26/2023:?11.3 ?? Ferritin ??10/23/2023:?853.0 ??10/07/2023:?1075.0 ??09/21/2023:?904.0 Iron?Sucrose?(Venofer)?(mg) ??10/21/2023:?100 ??10/19/2023:?100 ??10/16/2023:?100 BMM?ASSESSMENT PTH?controlled.?Calcium?controlled.?Phosphorus?controlled.?No?tiffanie nges?indicated.? Phosphorus,?Calcium ??10/19/2023:?4.3,?8.4 ??09/21/2023:?6.7,?8.3 ??08/17/2023:?3.3,?8.4 ?? PTH,?Intact ??10/26/2023:?416.0 ??09/21/2023:?569.0 ??08/17/2023:?155.0 Vitamin?D?(Calcitriol)?Oral?(mcg) ??11/09/2023:?0.25 ??11/06/2023:?0.25 ??11/04/2023:?0.25 NUTRITION?ASSESSMENT Potassium?controlled.?Albumin?below?goal.?Referred?to?dietitian. Albumin,?Potassium ??10/19/2023:?3.9,?5.3 ??09/21/2023:?3.9,?4.9 ??08/17/2023:?3.2,?4.3 ?? eNPCR ??11/09/2023:?1.03 ??10/05/2023:?0.97 ??09/07/2023:?0.71 PHYSICAL?EXAM Exam?Performed.?Vital?Signs?Reviewed.?Lungs?-?Clear.?CV&#160 ;-?Blood?pressure?noted.?CV?-?RRR.?EXT?-?1+?edema. DIAGNOSIS Chief?Complaint:?N18.6?End?stage?renal?disease Patient?data?updated?11/11/2023?at?11:44?AM Signed?By:?Yuri,?Swetha,?UPPER CUTTER OUT??on?11/11/2023?11:47:11?AM END OF DOCUMENT
--- OUTSIDE RECORDS SUMMARY | 2023-12-01 22:19 | XMS_ITS ---
Author Name Swetha Welch Address [address] [place] [address] Phone [phone] Organization [facility] e, NA DOCUMENT DISCLAIMER Multiple document versions may exist, please be sure you review the latest version. The information in the [facility] Progress Note Document represents a providers documented clinical note containing certain health and medical information. It may not contain the complete medical history for the patient and should be independently verified. The represented time in the document is Eastern Time PROVIDER ROUNDING NOTE BASIC Patient:?Carla?Kwadwo,?1970,?53y,?F Dialysis?Location:?[facility]??[facility]??-?[facility] Attending?Ops Manager:?Nataliya?Nini?Payton Service?Date:?11/20/2023 Service?Provider:?Swetha?Yuri,?ELEVATOR OPERATOR I?met?face?to?face?with?the?patient?today. 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 Medications?and?labs?reviewed. LAST?HOSPITALIZATION Discharge?Diagnosis:?I31.39?Other?pericardial?effusion?(noninflammatory) Admission?Date?12/18/22 Discharge?Date?12/23/22 DIALYSIS?PRESCRIPTION ??IHD?3x?Week?Start?date:?09/09/23 ??Dialyzer:?180NRe?Optiflux ??BFR:?400 ??DFR:?Autoflow?2 ??Potassium:?2.0 ??Sodium:?138 ??EDW:?90 ??Duration:?3:45 ??Calcium:?2.5 ??Bicarb:?34 ??Rx?updated?on:?09/09/2023 TREATMENT?ASSESSMENT Comments:?B/P?controlled. BP?Sit?Pre ??11/18/2023:?140/74 ??11/16/2023:?115/60 ??11/13/2023:?141/78 BP?Sit?Post ??11/18/2023:?106/60 ??11/16/2023:?106/66 ??11/13/2023:?117/77 Tx?Duration ??11/18/2023:?3:48 ??11/16/2023:?3:27 ??11/13/2023:?3:28 Missed?Treatments 0?-?last?30?days 0?-?last?60?days FLUID?ASSESSMENT Comments:?Large?IDWG's?at?times.?Advised. EDW?(kg) ??11/18/2023:?90.0 ??11/16/2023:?90.0 ??11/13/2023:?90.0 Weight?Pre?(kg) ??11/18/2023:?97.4 ??11/16/2023:?98.8 ??11/13/2023:?93.9 Weight?Post?(kg) ??11/18/2023:?94.4 ??11/16/2023:?98.0 ??11/13/2023:?91.8 PWV?(kg) ??11/18/2023:?4.4 ??11/16/2023:?8.0 ??11/13/2023:?1.8 UF?Rate?(mL/kg/hr) ??11/18/2023:?8.4 ??11/16/2023:?2.4 ??11/13/2023:?6.6 ADEQUACY?ASSESSMENT Comments:?Adequacy?goal?met. spKt/V,?URR ??11/09/2023:?1.61,?74.0 ??10/05/2023:?1.56,?73.0 ??09/07/2023:?1.54,?75.0 ACCESS?ASSESSMENT ??Access?Type:?CVCatheter ??Access?SubType:?Tunneled ??Access?Status:?Active?(In?Use)?-?10/11/2022 ??Access?Location:?Chest ??Placed:?10/10/2022 Vascular?access?reviewed. ANEMIA?ASSESSMENT Comments:?Hgb?goal?met.? HGB,?TSAT ??11/16/2023:?10.8,?83.0 ??11/09/2023:?10.4,?- ??11/06/2023:?11.6,?- ?? Ferritin ??10/23/2023:?853.0 ??10/07/2023:?1075.0 ??09/21/2023:?904.0 Mircera,?IVP?(mcg) ??11/13/2023:?30 Iron?Sucrose?(Venofer)?(mg) ??10/21/2023:?100 ??10/19/2023:?100 ??10/16/2023:?100 BMM?ASSESSMENT Comments:?BMM?well?managed. Phosphorus,?Calcium ??11/16/2023:?4.6,?8.4 ??10/19/2023:?4.3,?8.4 ??09/21/2023:?6.7,?8.3 ?? PTH,?Intact ??10/26/2023:?416.0 ??09/21/2023:?569.0 ??08/17/2023:?155.0 Vitamin?D?(Calcitriol)?Oral?(mcg) ??11/18/2023:?0.25 ??11/16/2023:?0.25 ??11/13/2023:?0.25 NUTRITION?ASSESSMENT Potassium?controlled.?Albumin?below?goal.?Referred?to?dietitian. Albumin,?Potassium ??11/16/2023:?3.7,?5.2 ??10/19/2023:?3.9,?5.3 ??09/21/2023:?3.9,?4.9 ?? eNPCR ??11/09/2023:?1.03 ??10/05/2023:?0.97 ??09/07/2023:?0.71 PHYSICAL?EXAM Exam?Performed.?Vital?Signs?Reviewed.?CV?-?Blood?pressure&#1 60;noted.?EXT?-?No?edema. DIAGNOSIS Chief?Complaint:?N18.6?End?stage?renal?disease Patient?data?updated?11/20/2023?at?11:30?AM Signed?By:?Yuri,?Swetha,?ELEVATOR OPERATOR??on?11/20/2023?11:31:22?AM END OF DOCUMENT
[2023-12-01] MEDS: SODIUM CHLORIDE 0.9% 25ML BAG 25 ML IV (22:31)
[2023-12-01] MEDS: PROMETHAZINE HCL 25MG/ML 1ML VIAL 25 MG IV (22:31)
[2023-12-01] MEDS: LACTATED RINGERS 1000ML 1,000 ML 999 ML IV (22:32)
[2023-12-01 22:33] LABS: Chloride 102 mmol/L (98-107); Potassium 4.8 mmoL/L (3.5-5.1); Sodium 139 mmol/L (136-145)
[2023-12-01 22:35] LABS: Blood Urea Nitrogen 65 mg/dl (7-17); Creatinine Clearance Estimated 24 mL/min (50-200); Estimated Glomerular Filt Rate 11 ml/min (>60); GFR (African American) 14 ML/MIN (>60)
[2023-12-01 22:36] LABS: Alanine Aminotransferase 82 U/L (12-78); Albumin Level 4.2 g/dl (3.5-5.0); Albumin/Globulin Ratio 1.4 (1.1-1.8); Alkaline Phosphatase 228 U/L (38-126); Anion Gap 14.8 mEq/L (5-15); Aspartate Amino Transferase 41 U/L (14-36); Bilirubin,Total 0.8 mg/dl (0.2-1.3); Calcium 8.8 mg/dl (8.4-10.2); Carbon Dioxide 27 mmol/L (22.0-30.0); Globulin 2.9 g/dL (1.3-3.2); Glucose 200 mg/dl (74-100); Lipase 28 U/L (23-300); Magnesium 1.9 mg/dl (1.6-2.3); Total Protein,Serum 7.1 g/dl (6.3-8.2)
--- NOTE | 2023-12-01 22:39 | PC.NURSE ---
Dr. Pitts notified of critical creatinine 4.1.
[2023-12-01 22:51] LABS: Hematocrit 40.1 % (37.0-47.0); Hemoglobin 12.7 g/dL (12.2-16.2); Mean Corpuscular HGB Conc 31.8 g/dL (31.8-35.4); Mean Corpuscular Volume 94.3 fl (81-99); Red Blood Count 4.25 M/mm3 (4.20-5.40); White Blood Count 10.2 K/mm3 (4.8-10.8)
[2023-12-01 22:52] LABS: Basophils % 0.2 % (0.1-2.0); Eosinophils # 0.1 K/mm3 (0.0-0.4); Eosinophils % 0.7 % (0.1-12.0); Lymphocytes # 0.5 K/mm3 (0.7-4.5); Lymphocytes % 5.1 % (10-50); Mean Platelet Volume 7.9 fl (7.4-10.4); Monocytes # 0.2 K/mm3 (0.1-1.0); Monocytes % 2.2 % (1.7-9.3); Neutrophils # 9.4 K/mm3 (1.8-7.8); Neutrophils % 91.4 % (37.0-80.0); Platelet Count 294 K/mm3 (142-424); Red Cell Distribution Width 14.5 % (11.5-17.5)
[2023-12-01 22:54] LABS: MANUAL DIFFERENTIAL MANUAL DIFFERENTIAL (MANUAL DIFF)
[2023-12-01 22:56] LABS: INR 1.02 (0.9-1.1)
[2023-12-01 23:14] LABS: Acetone, Serum (Rapid) None Detected (None Detect); Eosinophils % 1 % (0-3); Lymphocytes % 10 % (10-50); Monocytes % 1 % (2-9); Neutrophils % 87 % (42-76); Platelet Estimate Normal; RBC Morphology Normal; Total Cells Counted 100
[2023-12-01 23:32] VITALS: BP 150/62; PULSE 93; O2SAT 97
[2023-12-02] VITALS: BP 144/62; PULSE 92; O2SAT 97
--- NOTE | 2023-12-02 00:06 | PC.NURSE ---
Report given to Cande jaimes Lena.
--- NOTE | 2023-12-02 00:15 | PC.NURSE ---
0010 Called EMS for transport
[2023-12-02 00:30] VITALS: BP 137/60; PULSE 88; O2SAT 95
[2023-12-02 00:44] VITALS: BP 137/60; PULSE 88; RESP 16; TEMP 36.6; O2SAT 96
[2023-12-02 01:00] VITALS: BP 135/52; PULSE 90; O2SAT 94
[2023-12-02 01:31] VITALS: BP 138/52; PULSE 90; O2SAT 94
== END 2023-12-02 01:43 ==
PROVIDERS: Physician Assistant; Emergency Provider Emergency Medicine; PCP Internal Medicine
DX: R10.819 Abdominal tenderness, unspecified site (principal); R11.2 Nausea with vomiting, unspecified; N18.9 Chronic kidney disease, unspecified; E11.65 Type 2 diabetes mellitus with hyperglycemia; F17.210 Nicotine dependence, cigarettes, uncomplicated; Z79.4 Long term (current) use of insulin; Z99.2 Dependence on renal dialysis
CPT/HCPCS: 80053; 82009; 83690; 83735; 85007; 85025; 85610; 96361; 96374; 99284

== ENCOUNTER 2024-01-12 08:10 | Outpatient (CLI) | payer MEDICARE, MEDICAID, SELFPAY ==
--- NOTE | 2024-01-12 | CA_ITS ---
APPROVED REPORT Exam: Pharmacologic Technologist: Jessica Johnson, Ht: 5 ft 5 in HR: 85 bpm BP: 151/80 mmHg Rhythm: SR Medical History Medications: Amlodipine,,,,, Aspirin,,,,, Atorvastatin,,,,, Carvedilol,,,,, INSULIN,,,,, Albuterol,,,,, Tylenol,,,,, Sucralfate,,,,, Famotidine,,,,, DulOXETINE,,,,, ProMETHAZaine,,,,, Cardiac Risk Factors: Diabetes (insulin), FHX of CAD, Smoking Stress Test Details Test: LEXISCAN HR Resting HR: 85 bpm Max Heart Rate (APMHR): 167 bpm Max HR Achieved: 111 bpm Target HR (85% APMHR): 142 bpm % of APMHR: 66 Recovery HR: 106 bpm BP Resting BP: 151/80 mmHg Max BP: 194/83 mmHg Recovery BP: 170.0/76.0 mmHg ECG Resting ECG: SR Stress ECG: No significant ST changes Arrhythmia: None Clinical Exercise duration: 04:01 min Highest Stage Achieved: Exercise capacity: 1.0 METs Stress ECG Conclusion During lexiscan pt experinced nausea and vomiting. Ectopy: None ST changes: None Conclusion EKG unremarkable due to lexiscan infusion. Myoview images reported separately. Test Summary REST . . . . . . . Sitting REST 01:18 . . 85 . 151/ 80 . . Stage 1 01:00 . . 87 . . . . Stage 2 01:00 . . 109 . . . . Stage 3 01:00 . . 105 . 170/ 81 . . Stage 4 01:00 . . 96 . 194/ 83 . . Stage 4 01:01 . . 97 . 194/ 83 . Stop exercise at 04:01 RECOVERY 01:00 . . 105 . 170/ 76 . . RECOVERY 02:00 . . 99 . 172/ 81 . . RECOVERY 03:00 . . 98 . 144/ 75 . . RECOVERY 04:00 . . 97 . 148/ 73 . . RECOVERY 04:31 . . 0 . 148/ 73 . . Electronically signed by : Adela Calle MD 01/13/2024 13:59:23
--- NOTE | 2024-01-12 08:10 | NM_ITS ---
APPROVED REPORT Exam: Nuclear Stress Test Indication: SOB, CAD, DM, High cholesterol, Tobacco use, Family history, Pre op Patient Location: Outpatient Stress Tech: Jessica Johnson NM Tech:Shonda Hu, ARRT, RT (R)(N) Ht: 5 ft 6 in Wt: 205 lbs Bra Size: C HR: 85 bpm BP: 151/80 mmHg BSA: 2.02 m2 TID: 1.20 BMI: 33.0 History: SOB, CAD, DM, High cholesterol, Tobacco use, Family history, Pre op Procedure: Patient received 0.4 mg of intravenous Lexiscan, resting heart rate 85 bpm, resting blood pressure 151/80 mmHg, with Lexiscan maximum heart rate achieved was 111 bpm which is % of the maximum predicted heart rate and blood pressure was 194/83 mmHg. With Lexiscan, patient denied any complaint of chest pain. Cardiac Stress and Resting SPECT Images: Cardiac Stress and Resting SPECT images were obtained using technetium 99m Myoview 32.7 mCi stress and 10.19 mCi at rest. The patient could not lie on her abdomen. Therefore, prone stress imaging could not be performed. This may affect the diagnostic interpretation of the study findings. Resting and stress imaging in supine positions demonstrate no evidence of fixed or reversible perfusion defects. There is borderline increase in transient ischemic dilatation ratio (TID 1.20), suggestive of possible multivessel disease or balanced ischemia. Gated imaging demonstrates normal global and regional LV systolic function. LVEF is calculated at 68%. Conclusion: No evidence of fixed or reversible perfusion defects. There is borderline increase in transient ischemic dilatation ratio (TID 1.20), suggestive of possible multivessel disease or balanced ischemia. Gated imaging demonstrates normal global and regional LV systolic function. LVEF is calculated at 68%. In the setting of borderline TID, young age, and normal LV function, further evaluation noninvasively (i.e. CCTA) is suggested prior to proceeding with invasive coronary angiography, if clinically indicated. Electronically signed by : Adela Calle MD 01/13/2024 14:01:42
[2024-01-12] MEDS: REGADENOSON 0.4MG/5ML SYRINGE 0.400000000000000022 MG IV (09:28)
[2024-01-12] MEDS: ISOTOPE MYOVIEW (PER STUDY) 1 DOSE IV (09:28)
[2024-01-12] MEDS: SODIUM CHLORIDE 0.9% 10ML SYR (RAD ONLY) 10 ML IV ×2 (09:28)
[2024-01-12] MEDS: ONDANSETRON 4MG/2ML VIAL 4 MG IV (10:04)
== END 2024-01-12 23:59 | disposition home or self-care (01) ==
LOC: RAD 08:10
PROVIDERS: PCP Nurse Practitioner Family; Visit Provider Nurse Practitioner
DX: I25.10 Atherosclerotic heart disease of native coronary artery without angina pectoris (principal); Z01.818 Encounter for other preprocedural examination; I31.39 Other pericardial effusion (noninflammatory)
CPT/HCPCS: 78452; 93017; 93018; 93306; A9502; J2405; J2785

== ENCOUNTER 2024-02-11 08:27 | Day surgery (SDC) | payer MEDICARE, MEDICAID, SELFPAY ==
[2024-02-11] VITALS (13 sets, daily range): BP systolic 94–149; BP diastolic 50–80; PULSE 71–84; RESP 15–18; TEMP 36.7; O2SAT 94–100; BMI 37.0
--- NOTE | 2024-02-11 07:06 | IR_ITS ---
APPROVED REPORT Patient Location: Outpatient PROCEDURES Left heart catheterization Left ventriculogram Selective coronary angiogram Drug-eluting stent deployment to the proximal dominant circumflex artery INDICATION Coronary artery disease, Angina pectoris Informed consent was obtained prior to the procedure. COMPLICATIONS NONE Estimated Blood Loss: LESS THAN 10 ML TECHNIQUE One percent lidocaine was used to anesthetize the right groin. The right femoral artery was accessed via the Seldinger technique. A 4-Botswanan sheath was placed in the right femoral artery. The JL-4 and JR-4 catheter was also used to perform left heart catheterization left ventriculogram and selective coronary angiogram. At the end the diagnostic angiogram therapeutic heparin was administered giving a therapeutic ACT and the 4 Botswanan sheath was exchanged for a 6 Botswanan sheath. A JL 4 guide catheter was placed in the left main artery followed by Choice PT extra-support wire placed on the circumflex artery. A 3.5 x 12 mm [place] frontier stent was deployed at 20 lizzie reducing the severe stenosis to less than 10%. KATHERINE-3 flow was present before and after the procedure. After achieving excellent angiographic results the apparatus was removed the groin was reprepped closure change sheath was removed and hemostasis was achieved using Perclose device patient was transferred to the postop holding in stable condition ANGIOGRAPHIC RESULTS The left main artery Normal The left anterior descending artery Has proximal 30 and mid vessel tandem 40% long stenoses The circumflex artery Large dominant with proximal concentric calcified 70% stenosis followed by mid vessel 50% stenosis followed by widely patent stents. A large first obtuse marginal artery has ostial proximal 40% stenosis while the terminal obtuse marginal artery has a widely patent stent The right coronary artery Is nondominant and has proximal 80% tandem stenoses. Distally the vessel was subtotally occluded with greater than 95% stenoses throughout the distal vessel which extends into marginal branches. There is antegrade flow however it involves several bifurcating areas. The HAND ventriculogram reveals Normal 65% The left ventricular end-diastolic pressure 20 mmHg IMPRESSION Coronary artery disease as described above Successful stenting of the circumflex artery severe disease reduced to less than 10% with 1 drug-eluting stent Severe disease throughout the proximal and distal nondominant right coronary artery as described above which is best managed medically due to the diffuse nature of the disease and multiple bifurcations Normal ejection fraction Mildly elevated LVEDP PLAN 1. Dual antiplatelet therapy 2. Cardiac rehabilitation 3. Avoidance of tobacco products 4. Risk factor modification 5. LDL less than 55 to be achieved with high intensity statin Electronically signed by : Beni Rutherford MD 02/12/2024 12:24:10
--- OUTSIDE RECORDS SUMMARY | 2024-02-11 08:31 | XMS_ITS ---
Author Name Swetha Welch Address [address] [place] [address] Phone [phone] Organization [facility] e, NA DOCUMENT DISCLAIMER Multiple document versions may exist, please be sure you review the latest version. The information in the [facility] Progress Note Document represents a providers documented clinical note containing certain health and medical information. It may not contain the complete medical history for the patient and should be independently verified. The represented time in the document is Eastern Time PROVIDER ROUNDING NOTE BASIC Patient:?Carla?Kwadwo,?1970,?53y,?F Dialysis?Location:?[facility]??[facility]??-?[facility] Attending?Wool Hat Sanding Machine Operator:?Nataliya?Nini?Payton Service?Date:?01/29/2024 Service?Provider:?Swetha?Yuri,?PROJECT MANAGEMENT INSTRUCTOR I?met?face?to?face?with?the?patient?today. 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 Medications?and?labs?reviewed. LAST?HOSPITALIZATION Discharge?Diagnosis:?I31.39?Other?pericardial?effusion?(noninflammatory) Admission?Date?12/18/22 Discharge?Date?12/23/22 DIALYSIS?PRESCRIPTION ??IHD?3x?Week?Start?date:?01/18/24 ??Dialyzer:?180NRe?Optiflux ??BFR:?400 ??DFR:?Autoflow?2 ??Potassium:?2.0 ??Sodium:?138 ??EDW:?95.5 ??Duration:?3:45 ??Calcium:?2.5 ??Bicarb:?38 ??Rx?updated?on:?01/18/2024 TREATMENT?ASSESSMENT Comments:?B/P?controlled. BP?Sit?Pre ??01/27/2024:?118/63 ??01/25/2024:?141/74 ??01/22/2024:?121/70 BP?Sit?Post ??01/27/2024:?112/62 ??01/25/2024:?124/80 ??01/22/2024:?109/54 Tx?Duration ??01/27/2024:?3:28 ??01/25/2024:?3:32 ??01/22/2024:?3:45 Missed?Treatments 0?-?last?30?days 0?-?last?60?days FLUID?ASSESSMENT Comments:?Large?IDWG's?at?times.?Advised. EDW?(kg) ??01/27/2024:?95.5 ??01/25/2024:?95.5 ??01/22/2024:?95.5 Weight?Pre?(kg) ??01/27/2024:?100.5 ??01/25/2024:?101.9 ??01/22/2024:?100.7 Weight?Post?(kg) ??01/27/2024:?98.6 ??01/25/2024:?99.7 ??01/22/2024:?98.1 PWV?(kg) ??01/27/2024:?3.1 ??01/25/2024:?4.2 ??01/22/2024:?2.6 UF?Rate?(mL/kg/hr) ??01/27/2024:?5.6 ??01/25/2024:?6.2 ??01/22/2024:?7.1 ADEQUACY?ASSESSMENT Comments:?Adequacy?goal?met. spKt/V,?URR ??01/04/2024:?1.51,?72.0 ??12/07/2023:?1.64,?75.0 ??11/09/2023:?1.61,?74.0 ACCESS?ASSESSMENT ??Access?Type:?CVCatheter ??Access?SubType:?Tunneled ??Access?Status:?Active?(In?Use)?-?10/11/2022 ??Access?Location:?Chest ??Placed:?10/10/2022 Comments:?Access?reviewed ANEMIA?ASSESSMENT Comments:?Hgb?goal?met.? HGB,?TSAT ??01/25/2024:?10.2,?- ??01/18/2024:?10.7,?61.0 ??01/11/2024:?10.7,?- ?? Ferritin ??12/21/2023:?898.0 ??10/23/2023:?853.0 ??10/07/2023:?1075.0 Mircera,?IVP?(mcg) ??01/01/2024:?50 ??12/18/2023:?50 ??12/04/2023:?50 Iron?Sucrose?(Venofer)?(mg) ??01/18/2024:?50 ??01/11/2024:?50 ??01/04/2024:?50 BMM?ASSESSMENT Comments:?BMM?well?managed. PTH,?Intact ??12/21/2023:?361.0 ??10/26/2023:?416.0 ??09/21/2023:?569.0 ?? Calcium,?Phosphorus ??01/18/2024:?8.3,?5.2 ??12/21/2023:?8.4,?4.8 ??11/16/2023:?8.4,?4.6 Vitamin?D?(Calcitriol)?Oral?(mcg) ??01/27/2024:?0.25 ??01/25/2024:?0.25 ??01/22/2024:?0.25 NUTRITION?ASSESSMENT Comments:?Albumin?below?goal?but?stable.?Encouraged?to?incre ase?intake?of?HBV?protein.? Potassium,?Albumin ??01/18/2024:?4.8,?3.7 ??12/21/2023:?5.5,?3.8 ??11/16/2023:?5.2,?3.7 ?? eNPCR ??01/04/2024:?1.26 ??12/07/2023:?0.91 ??11/09/2023:?1.03 PHYSICAL?EXAM Comments:?Trace?right?lower?extremity?edema.? Exam?Performed.?Vital?Signs?Reviewed.?Lungs?-?Clear.?CV&#160 ;-?Blood?pressure?noted.?CV?-?RRR.?EXT?-?No?edema. DIAGNOSIS Chief?Complaint:?N18.6?End?stage?renal?disease Patient?data?updated?01/29/2024?at?12:19?PM Signed?By:?Yuri,?Swetha,?PROJECT MANAGEMENT INSTRUCTOR??on?01/29/2024?12:20:37?PM END OF DOCUMENT
--- OUTSIDE RECORDS SUMMARY | 2024-02-11 08:31 | XMS_ITS ---
Author Name Swetha Welch Address [address] [place] [address] Phone [phone] Organization [facility] e, NA DOCUMENT DISCLAIMER Multiple document versions may exist, please be sure you review the latest version. The information in the [facility] Progress Note Document represents a providers documented clinical note containing certain health and medical information. It may not contain the complete medical history for the patient and should be independently verified. The represented time in the document is Eastern Time PROVIDER ROUNDING NOTE BASIC Patient:?Carla?Kwadwo,?1970,?53y,?F Dialysis?Location:?[facility]??[facility]??-?[facility] Attending?Glove Machine Operator:?Nataliya?Nini?Payton Service?Date:?02/10/2024 Service?Provider:?Swetha?Yuri,?SCHOOL PHOTOGRAPHER I?met?face?to?face?with?the?patient?today. 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 Medications?and?labs?reviewed. LAST?HOSPITALIZATION Discharge?Diagnosis:?I31.39?Other?pericardial?effusion?(noninflammatory) Admission?Date?12/18/22 Discharge?Date?12/23/22 DIALYSIS?PRESCRIPTION ??IHD?3x?Week?Start?date:?01/18/24 ??Dialyzer:?180NRe?Optiflux ??BFR:?400 ??DFR:?Autoflow?2 ??Potassium:?2.0 ??Sodium:?138 ??EDW:?95.5 ??Duration:?3:45 ??Calcium:?2.5 ??Bicarb:?38 ??Rx?updated?on:?01/18/2024 TREATMENT?ASSESSMENT Comments:?B/P?controlled. BP?Sit?Pre ??02/08/2024:?111/61 ??02/05/2024:?127/65 ??02/03/2024:?117/58 BP?Sit?Post ??02/08/2024:?137/76 ??02/05/2024:?158/73 ??02/03/2024:?122/57 Tx?Duration ??02/08/2024:?3:44 ??02/05/2024:?3:43 ??02/03/2024:?3:22 Missed?Treatments 0?-?last?30?days 0?-?last?60?days FLUID?ASSESSMENT Comments:?Large?IDWG's?at?times.?Advised. EDW?(kg) ??02/08/2024:?95.5 ??02/05/2024:?95.5 ??02/03/2024:?95.5 Weight?Pre?(kg) ??02/08/2024:?101.9 ??02/05/2024:?100.4 ??02/03/2024:?100.8 Weight?Post?(kg) ??02/08/2024:?100.2 ??02/05/2024:?97.2 ??02/03/2024:?98.5 PWV?(kg) ??02/08/2024:?4.7 ??02/05/2024:?1.7 ??02/03/2024:?3.0 UF?Rate?(mL/kg/hr) ??02/08/2024:?4.5 ??02/05/2024:?8.7 ??02/03/2024:?7.1 ADEQUACY?ASSESSMENT Comments:?Adequacy?goal?met. spKt/V,?URR ??02/01/2024:?1.66,?76.0 ??01/04/2024:?1.51,?72.0 ??12/07/2023:?1.64,?75.0 ACCESS?ASSESSMENT ??Access?Type:?CVCatheter ??Access?SubType:?Tunneled ??Access?Status:?Active?(In?Use)?-?10/11/2022 ??Access?Location:?Chest ??Placed:?10/10/2022 Comments:?Access?reviewed ANEMIA?ASSESSMENT Comments:?Hgb?goal?met.? HGB ??02/08/2024:?10.9 ??02/01/2024:?10.7 ??01/25/2024:?10.2 ?? Ferritin ??12/21/2023:?898.0 ??10/23/2023:?853.0 ??10/07/2023:?1075.0 Mircera,?IVP?(mcg) ??01/29/2024:?50 ??01/01/2024:?50 ??12/18/2023:?50 Iron?Sucrose?(Venofer)?(mg) ??01/18/2024:?50 ??01/11/2024:?50 ??01/04/2024:?50 BMM?ASSESSMENT Comments:?BMM?well?managed. PTH,?Intact ??12/21/2023:?361.0 ??10/26/2023:?416.0 ??09/21/2023:?569.0 ?? Calcium,?Phosphorus ??01/18/2024:?8.3,?5.2 ??12/21/2023:?8.4,?4.8 ??11/16/2023:?8.4,?4.6 Vitamin?D?(Calcitriol)?Oral?(mcg) ??02/08/2024:?0.25 ??02/05/2024:?0.25 ??02/03/2024:?0.25 NUTRITION?ASSESSMENT Comments:?Albumin?below?goal?but?stable.?Encouraged?to?incre ase?intake?of?HBV?protein.? Potassium,?Albumin ??01/18/2024:?4.8,?3.7 ??12/21/2023:?5.5,?3.8 ??11/16/2023:?5.2,?3.7 ?? eNPCR ??02/01/2024:?0.95 ??01/04/2024:?1.26 ??12/07/2023:?0.91 PHYSICAL?EXAM Comments:?Trace?right?lower?extremity?edema.? Exam?Performed.?Vital?Signs?Reviewed.?Lungs?-?Clear.?CV&#160 ;-?Blood?pressure?noted.?CV?-?RRR. DIAGNOSIS Chief?Complaint:?N18.6?End?stage?renal?disease Patient?data?updated?02/10/2024?at?1:06?PM Signed?By:?Yuri,?Swetha,?SCHOOL PHOTOGRAPHER??on?02/10/2024?1:07:24?PM END OF DOCUMENT
--- OUTSIDE RECORDS SUMMARY | 2024-02-11 08:31 | XMS_ITS ---
Author Name Swetha Welch Address [address] [place] [address] Phone [phone] Organization [facility] e, NA DOCUMENT DISCLAIMER Multiple document versions may exist, please be sure you review the latest version. The information in the [facility] Progress Note Document represents a providers documented clinical note containing certain health and medical information. It may not contain the complete medical history for the patient and should be independently verified. The represented time in the document is Eastern Time PROVIDER ROUNDING NOTE BASIC Patient:?Carla?Kwadwo,?1970,?53y,?F Dialysis?Location:?[facility]??[facility]??-?ROLAN Attending?Community Engagement Coordinator:?Nataliya?Nini?Payton Service?Date:?02/03/2024 Service?Provider:?Swetha?Yuri,?GLASS CURVATURE GAUGER I?met?face?to?face?with?the?patient?today. 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 LAST?HOSPITALIZATION Discharge?Diagnosis:?I31.39?Other?pericardial?effusion?(noninflammatory) Admission?Date?12/18/22 Discharge?Date?12/23/22 DIALYSIS?PRESCRIPTION ??IHD?3x?Week?Start?date:?01/18/24 ??Dialyzer:?180NRe?Optiflux [...] ??12/07/2023:?0.91 PHYSICAL?EXAM Comments:?Trace?right?lower?extremity?edema.? Exam?Performed.?Vital?Signs?Reviewed.?Lungs?-?Clear.?CV&#160 ;-?Blood?pressure?noted.?CV?-?RRR. DIAGNOSIS Chief?Complaint:?N18.6?End?stage?renal?disease Patient?data?updated?02/09/2024?at?2:49?PM Signed?By:?Yuri,?Swetha,?GLASS CURVATURE GAUGER??on?02/09/2024?2:50:17?PM END OF DOCUMENT
--- OUTSIDE RECORDS SUMMARY | 2024-02-11 08:32 | XMS_ITS ---
Author Name Nataliya Mcclendon Address [address] [place] [address] Phone [phone] Organization [facility] e, NA DOCUMENT DISCLAIMER Multiple document versions may exist, please be sure you review the latest version. The information in the [facility] Progress Note Document represents a providers documented clinical note containing certain health and medical information. It may not contain the complete medical history for the patient and should be independently verified. The represented time in the document is Eastern Time PROVIDER ROUNDING NOTE COMP HD PROVIDER?ROUNDING?NOTE?COMP?HD Clinic:?[address] [place] [address]??[place]??ROLAN Visit?date:?08/17/2023?00:00?Modality/setting:?IHD Carla?Burkett?-?Chart?#:?[id number] Method?of?Interaction:?Face?to?face Date?of?Interaction:?01/27/2024 ?-?Patient?is?stable ?-?Optimal?weight?addressed?with?patient?and?staff. ?-?Medications?and?labs?reviewed. Patient?issues?include: Stable. Prior?Treatment:?01/25/2024? Dialyzer:?180NRe?Optiflux? Dialysate:?2.0?K,?2.5 Ca,?1.0?Mg,?100?Dextrose?(G2251)? Prescribed?Time:?3:45?Avg?BFR:?400?Wt?Gain (kg):?3.75? Actual?Time:?03:32?Avg?DFR:?800?&#16 0;EDW?(kg):?95.50? Adequacy ?spKt/V?eKdrt/V?&#160 ; ???OLC?(Del)?spKtv?URR?%?1.51?01/04/24?? ?1.36?01/04/24?? ?1.54?0 01/25/24?? ?72?01/04/24? ?1.64?12/07/23?? ?1.44?12/07/23?? ?1.67?0 01/22/24?? ?75?12/07/23? ?1.61?11/09/23?? ?1.41?11/09/23?? ?1.63?0 01/20/24?? ?74?11/09/23? ?Potassium,?Serum?mEq/L?Bicarbonate?mEq/L??&# 160;?Creatinine?mg/dL?4.8?01/18/24? 29?01/18/24?5. 37?01/18/24?5.5?12/21/23? 19?12/21/23?5. 35?12/21/23?5.2?11/16/23? 23?11/16/23?4. 49?11/16/23?-?Adequacy?parameters?reviewed Adequacy ?-?Adequacy?target?met ?Sitting?BP?Pre?Sitting BP?Post?Systolic/Diastolic?Systolic/Diastolic?141?/?74??01/25/24?124?/?80??01/25/24?121?/?70??01/22/24?109?/?54??01/22/24?114?/?64??01/20/24?112?/?59??01/20/24?? Blood?Pressure ?-?Blood?pressure?controlled Fluid?Status ?-?Fluid?status?acceptable Interdialytic?Weight?Gain ?-?Interdialytic?weight?gain?acceptable Prescription?Compliance ?-?Prescription?compliance?acceptable ?-?Potassium?controlled Follow?low?K?diet. Anemia ?HGB?g/dL? Transferrin?Sat.?(Calc)?%?Ferritin?ng/mL&#160 ;?10.2?01/25/24?61?01/18/24?898 ?12/21/23?? ?10.7?01/18/24?38?12/21/23?853 ?10/23/23?? ?10.7?01/11/24?83?11/16/23?1075 ?10/07/23?? YENNIFER?Administrations ??50?mcg?Mircera?01/01/24 ??50?mcg?Mircera?12/18/23 ??50?mcg?Mircera?12/04/23 IV?Iron?Administrations ??50?mg?Venofer?01/18/24 ??50?mg?Venofer?01/11/24 ??50?mg?Venofer?01/04/24 ?-?Anemia?reviewed Bone?and?Mineral?Metabolism ??Calcium,?Total?mg/dL?? Calcium,?Corrected?mg/dL ?&#1 60;??Phosphorous?mg/dL??? PTH-Intact,?Plasma?pg/mL ??8.3?01/18/24? 8.5?01/18/24?5.2&#16 0;?01/18/24?361?12/21/23?8.4?12/21/23? 8.6?12/21/23?4.8&#16 0;?12/21/23?416?10/26/23?8.4?11/16/23? 8.6?11/16/23?4.6&#16 0;?11/16/23?569?09/21/23?Vitamin?D?25?Hydroxy?ng/mL? ?Vitamin?D?Analogue? Administrations?Calcimimetics?7.5?09/21/23?0.25?mcg?Vitamin?D??01/25/24?&# 160;?-?16.9?08/17/23?0.25?mcg?Vitamin?D??01/22/24??& #160;?-?13.1?03/28/23?0.25?mcg?Vitamin?D??01/20/24??& #160;?-? PTH ?-?PTH?within?target ?-?Bone?and?mineral?metabolism?parameters?reviewed ?-?Calcium?controlled ?-?Phosphorus?controlled Vitamin?D?03108?IU?monthly.?Renvela?800?PO?TID Nutrition ?Albumin?g/dL? eNPCR?g/kg/day?3.7?01/18/24?? ?1.26?01/04/24?? ?3.8?12/21/23?? ?0.91?12/07/23?? ?3.7?11/16/23?? ?1.03?11/09/23?? ?-?Nutrition?reviewed ?-?Caloric?intake?addressed ?-?Referred?to?dietitian?for?further?counseling Home?Medications ?Acetaminophen?Pain?Relief?(acetaminophen) 500?mg,?oral,?2?tablet?three?times?a?day ??amlodipine?(amlodipine) 10?mg,?oral,?1?tablet?once?a?day ??aspirin?(aspirin) 81?mg,?oral,?1?tablet?once?a?day ??atorvastatin?(atorvastatin) 40?mg,?oral,?1?tablet?every?night ??calcitonin?(salmon)?(calcitonin?(salmon)) 200?unit/actuation,?nasl,?1?spray?once?a?day ??carvedilol?(carvedilol) 12.5?mg,?oral,?1?tablet?twice?a?day ??cetirizine?(cetirizine) 5?mg,?oral,?1?tablet?once?a?day ??famotidine?(famotidine) 20?mg,?oral,?1?tablet?twice?a?day [take?30?minutes?before?breakfast?and?supper] ??Humalog?KwikPen?Insulin?(insulin?lispro) 100?unit/mL,?subQ, [per?sliding?scale] ??insulin?glargine?(insulin?glargine) 100?unit/mL,?subQ,?55?unit?once?a?day ??isosorbide?mononitrate?(isosorbide?mononitrate) 30?mg,?oral,?1?tablet?once?a?day ??loperamide?(loperamide) 2?mg,?oral,?1?capsule [as?needed] ??Pro-Stat?AWC?(amino?acids-protein?hydrolys) 17-100?gram-kcal/30?mL,?oral,?1?packet?twice?a?day ??promethazine?(promethazine) 25?mg,?oral,?1?tablet?every?four?hours [for?nausea/vomiting] ??Renvela?(sevelamer?carbonate) 800?mg,?oral,?1?tablet?three?times?a?day [Take?with?FIRST?bite?of?food.]... There?are?additional?active?home?medications?for?this?patien t.?Please?view?in?Clinical?Summary Vascular?Access?-?Active/Maturing ?Type?Position/Location?Status?Access?ID?AVFistula-Unknown?Upper?Arm-Left?Matur ing/Healing?[id number]?CVCatheter-Tunneled?Chest?Active?(In?Use)?[id number]?-?-?&# 160;?-? -?-?Vascular?access?reviewed ?-?New?access?developing?-?awaiting?use ?-?Current?access?is?functioning?well. Exam ?-?Vital?signs?reviewed Pulmonary ?-?LUNGS?-?clear Cardiovascular ?-?CV?-?Blood?pressure?noted ?-?CV?-?RRR Edema ?-?EXT?-?No?edema Feet ?-?EXT?-?no?ulcers Other ?-?AVF/AVG?positive?thrill/bruit Left?AKA Interest?and?Eligibility?(If?changes?are?made,?Please?notify?SW?via?alert?below) ?Date?of?discussion?from?transplant?assessment:?09/28/2023 ?Patient?already?on?transplant?list??No Tobacco?Cessation ??Tobacco?use:?Former?user ??Type:?Cigarettes ??Years?smoked:? 20 ??Frequency:?Daily Ziad?W?Nini?Payton,?MD END OF DOCUMENT
[2024-02-11 09:00] LABS: Basophils # 0.1 K/mm3 (0-0.2); Basophils % 0.8 % (0.1-2.0); Eosinophils # 0.2 K/mm3 (0.0-0.4); Eosinophils % 2.4 % (0.1-12.0); Hematocrit 35.3 % (37.0-47.0); Lymphocytes # 2.3 K/mm3 (0.7-4.5); Lymphocytes % 22.6 % (10-50); Mean Corpuscular HGB Conc 33.9 g/dL (31.8-35.4); Mean Corpuscular Hemoglobin 32.5 pg (27.0-31.2); Mean Corpuscular Volume 95.8 fl (81-99); Mean Platelet Volume 7.6 fl (7.4-10.4); Monocytes # 0.4 K/mm3 (0.1-1.0); Neutrophils # 7.1 K/mm3 (1.8-7.8); Neutrophils % 70.2 % (37.0-80.0); Platelet Count 329 K/mm3 (142-424); Red Blood Count 3.69 M/mm3 (4.20-5.40); Red Cell Distribution Width 14.1 % (11.5-17.5); White Blood Count 10.1 K/mm3 (4.8-10.8)
[2024-02-11 09:10] LABS: Anion Gap 14.5 mEq/L (5-15); Blood Urea Nitrogen 44 mg/dl (7-17); Carbon Dioxide 28 mmol/L (22.0-30.0); Chloride 96 mmol/L (98-107); Creatinine Clearance Estimated 21 mL/min (50-200); Estimated Glomerular Filt Rate 9 ml/min (>60); GFR (African American) 11 ML/MIN (>60); Glucose 211 mg/dl (74-100); Potassium 4.5 mmoL/L (3.5-5.1); Sodium 134 mmol/L (136-145)
[2024-02-11 09:21] LABS: HCG Qualitative, Serum Negative (Negative)
[2024-02-11] MEDS: diphenhydrAMINE 50MG/ML VIAL 50 MG IV (11:35)
[2024-02-11] MEDS: LIDOCAINE 1% 10ML MDV 20 ML IJ (11:36)
[2024-02-11] MEDS: HEPARIN 1,000 UNITS/500ML NS (CATH LAB) 3000 UNIT IV (11:36)
[2024-02-11] MEDS: 0.9 % SODIUM CHLORIDE 500 ML 25 ML IV (11:36)
[2024-02-11] MEDS: HEPARIN 1,000 UNITS/ML 10ML VIAL (CATH LAB) 10000 UNIT IV (11:36)
[2024-02-11] MEDS: MIDAZOLAM HCL 1MG/1ML 5ML VIAL 1 MG IV (11:36)
[2024-02-11] MEDS: FENTANYL 100MCG/2ML VIAL 50 MCG IV (11:37)
--- NOTE | 2024-02-11 15:16 | SUR.PHASEII ---
Called and spoke with BENNETT Russell at [facility] regarding pt's d/c medications and which pharmacy they would prefer medications to be escribed to. Yvonne informed that patient has been given her Effient today but needs medication for tomorrow. Instructed to Escribe medication to [facility] in [place].
[2024-02-11] MEDS: IOPAMIDOL-370 (76%);100ML BOTTLE 90 ML IV (15:43)
== END 2024-02-11 15:22 | disposition home or self-care (01) ==
PROVIDERS: PCP Family Medicine; Visit Provider Internal Medicine
DX: R93.1 Abnormal findings on diagnostic imaging of heart and coronary circulation (principal); I25.118 Atherosclerotic heart disease of native coronary artery with other forms of angina pectoris; Z79.899 Other long term (current) drug therapy; E11.9 Type 2 diabetes mellitus without complications; Z79.4 Long term (current) use of insulin; Z95.5 Presence of coronary angioplasty implant and graft; F17.210 Nicotine dependence, cigarettes, uncomplicated; I31.39 Other pericardial effusion (noninflammatory); G47.33 Obstructive sleep apnea (adult) (pediatric); E78.5 Hyperlipidemia, unspecified; I10 Essential (primary) hypertension
CPT/HCPCS: 80048; 84703; 85025; 92928; 93458; 99152; 99153; C1725; C1760; C1769; C1874; C9600; J1644; J2250; J3010; Q9967

== ENCOUNTER 2024-02-14 07:51 | Outpatient (CLI) | payer MEDICARE, MEDICAID, SELFPAY ==
[2024-02-14 08:15] LABS: Basophils % 0.3 % (0.1-2.0); Eosinophils # 0.2 K/mm3 (0.0-0.4); Hematocrit 29.4 % (37.0-47.0); Hemoglobin 10.1 g/dL (12.2-16.2); Lymphocytes # 1.9 K/mm3 (0.7-4.5); Lymphocytes % 22.7 % (10-50); Mean Corpuscular HGB Conc 34.6 g/dL (31.8-35.4); Mean Corpuscular Hemoglobin 33.5 pg (27.0-31.2); Mean Corpuscular Volume 96.9 fl (81-99); Mean Platelet Volume 7.9 fl (7.4-10.4); Monocytes # 0.4 K/mm3 (0.1-1.0); Monocytes % 4.8 % (1.7-9.3); Neutrophils # 5.9 K/mm3 (1.8-7.8); Neutrophils % 70.2 % (37.0-80.0); Platelet Count 276 K/mm3 (142-424); Red Blood Count 3.03 M/mm3 (4.20-5.40); Red Cell Distribution Width 14.2 % (11.5-17.5); White Blood Count 8.4 K/mm3 (4.8-10.8)
[2024-02-14 09:46] LABS: Anion Gap 13.1 mEq/L (5-15); Blood Urea Nitrogen 56 mg/dl (7-17); Calcium 8.5 mg/dl (8.4-10.2); Carbon Dioxide 29 mmol/L (22.0-30.0); Chloride 97 mmol/L (98-107); Estimated Glomerular Filt Rate 8 ml/min (>60); GFR (African American) 9 ML/MIN (>60); Glucose 208 mg/dl (74-100); Potassium 4.1 mmoL/L (3.5-5.1); Sodium 135 mmol/L (136-145)
== END 2024-02-14 23:59 | disposition home or self-care (01) ==
LOC: LAB.DROPOF 07:53
PROVIDERS: Family Medicine; PCP Internal Medicine; Visit Provider Internal Medicine
DX: I25.10 Atherosclerotic heart disease of native coronary artery without angina pectoris (principal)
CPT/HCPCS: 80048; 85025

== ENCOUNTER 2024-03-10 12:28 | Outpatient (CLI) | payer MEDICARE, MEDICAID, SELFPAY ==
--- NOTE | 2024-03-10 12:39 | XR_ITS ---
FINAL REPORT CLINICAL HISTORY: wrist pain FINDINGS: RIGHT WRIST Three views demonstrate no acute fracture or dislocation. There is chronic deformity of the fifth metacarpal which may be related to prior fracture. The visualized joint spaces are normally aligned. The soft tissues are unremarkable. IMPRESSION: No acute bony abnormality. Reviewed, Interpreted and Dictated by Saroj Barajas III, MD Transcribed by Danitza Viramontes Authenticated and [facility]
--- NOTE | 2024-03-10 12:39 | XR_ITS ---
FINAL REPORT CLINICAL HISTORY: wrist pain FINDINGS: LEFT WRIST Three views demonstrate no acute fracture or dislocation. There is chronic deformity of the fifth metacarpal which may be related to prior fracture. The visualized joint spaces are normally aligned. The soft tissues are unremarkable. IMPRESSION: No acute bony abnormality. Reviewed, Interpreted and Dictated by Saroj Barajas III, MD Transcribed by Danitza Viramontes Authenticated and [facility]
== END 2024-03-10 23:59 | disposition home or self-care (01) ==
LOC: RAD 12:30
PROVIDERS: PCP Internal Medicine; Visit Provider Physician Assistant Surgical
DX: M25.531 Pain in right wrist (principal); M25.532 Pain in left wrist
CPT/HCPCS: 73110

== ENCOUNTER 2024-03-16 17:20 | Outpatient (CLI) | payer MEDICARE, MEDICAID, SELFPAY ==
[2024-03-16 19:25] LABS: Basophils # 0.1 K/mm3 (0-0.2); Basophils % 0.5 % (0.1-2.0); Eosinophils # 0.1 K/mm3 (0.0-0.4); Eosinophils % 1.3 % (0.1-12.0); Hematocrit 36.2 % (37.0-47.0); Hemoglobin 11.4 g/dL (12.2-16.2); Mean Corpuscular HGB Conc 31.4 g/dL (31.8-35.4); Mean Corpuscular Hemoglobin 32.7 pg (27.0-31.2); Mean Platelet Volume 7.9 fl (7.4-10.4); Monocytes # 0.3 K/mm3 (0.1-1.0); Monocytes % 3.7 % (1.7-9.3); Neutrophils # 6.8 K/mm3 (1.8-7.8); Neutrophils % 73.5 % (37.0-80.0); Platelet Count 298 K/mm3 (142-424); Red Blood Count 3.48 M/mm3 (4.20-5.40); Red Cell Distribution Width 14.1 % (11.5-17.5); White Blood Count 9.3 K/mm3 (4.8-10.8)
[2024-03-16 19:41] LABS: Blood Urea Nitrogen 30 mg/dl (7-17); Calcium 8.4 mg/dl (8.4-10.2); Carbon Dioxide 31 mmol/L (22.0-30.0); Chloride 97 mmol/L (98-107); Estimated Glomerular Filt Rate 13 ml/min (>60); GFR (African American) 16 ML/MIN (>60); Glucose 321 mg/dl (74-100); Sodium 138 mmol/L (136-145)
== END 2024-03-16 23:59 | disposition home or self-care (01) ==
LOC: LAB.DROPOF 17:22
PROVIDERS: PCP Internal Medicine; Visit Provider Family Medicine
DX: E11.21 Type 2 diabetes mellitus with diabetic nephropathy (principal); E78.2 Mixed hyperlipidemia; I10 Essential (primary) hypertension; M86.271 Subacute osteomyelitis, right ankle and foot
CPT/HCPCS: 80048; 85025

== ENCOUNTER 2024-05-29 23:04 | Emergency (ER) | payer MEDICARE, MEDICAID, SELFPAY ==
[2024-05-29 23:04] VITALS: BP 184/91; PULSE 85; RESP 18; TEMP 36.6; O2SAT 97; BMI 40.5
--- NOTE | 2024-05-29 23:07 | ED_ITS ---
Discharge Plan Disposition Patient Disposition: Home, Self-Care Condition: Good Prescriptions Prescriptions: New azithromycin 250 mg tablet 250 mg PO DAILY 4 Days Qty: 4 0RF amoxicillin-pot clavulanate 500-125 mg tablet 1 tab PO DAILY Qty: 5 0RF lidocaine 5 % adhesive patch,medicated 1 patch topical DAILY PRN (Reason: pain) Qty: 30 0RF Rx Instructions: leave on most painful area for up to 12 hrs No Action aspirin 81 mg tablet,delayed release (DR/EC) 81 mg PO DAILY Qty: 90 0RF mupirocin 2 % ointment topical (DME) BD AutoShield Duo Pen Needle 30 gauge x 3/16 needle See Rx Instructions .ROUTE .MEDSUPPLY Qty: 100 Rx Instructions: As directed venlafaxine 37.5 mg capsule,extended release 24hr 37.5 mg PO DAILY carvedilol 12.5 mg tablet 12.5 mg PO BID amlodipine 10 mg tablet 10 mg PO .COMPLEX Rx Instructions: 10 mg orally daily on T, Thurs, Sat, Sun; lidocaine 5 % adhesive patch,medicated 1 patch topical DAILY Qty: 30 0RF Rx Instructions: leave on most painful area for up to 12 hrs hydrocodone-acetaminophen 5-325 mg tablet 1 tab PO Q6H PRN fexofenadine [Allergy Relief (fexofenadine)] 180 mg tablet 180 mg PO DAILY Procrit 20,000 unit/mL solution 20,000 unit SQ WEEKLY Patient Comments: given at dialysis calcitonin (salmon) 200 unit/actuation spray,non-aerosol 1 spray intranasal (ALT) DAILY benzonatate 100 mg capsule 100 mg PO TID PRN (Reason: cough) bisacodyl 10 mg suppository 10 mg MT DAILY PRN polyethylene glycol 3350 17 gram/dose powder PO DAILY pseudoephedrine HCl [Sudogest] 60 mg tablet 60 mg PO Q6H PRN Humulin 70/30 U-100 KwikPen 100 unit/mL (70-30) insulin pen 15 unit SQ QAM azelastine 137 mcg (0.1 %) spray,non-aerosol 2 spray intranasal BID Qty: 30 3RF Rx Instructions: administer into each nostril ciprofloxacin-dexamethasone [Ciprodex] 0.3-0.1 % drops,suspension 2 drp otic (ear) BID 10 Days Qty: 7.5 1RF insulin glargine [Basaglar KwikPen U-100 Insulin] 100 unit/mL (3 mL) insulin pen 75 unit SQ HS Qty: 15 11RF atorvastatin 40 mg tablet 40 mg PO HS Qty: 90 3RF (DME) pen needle, diabetic [Comfort EZ Pen [place]] 31 gauge x 5/16 needle See Rx Instructions .Route Qty: 100 2RF Rx Instructions: As directed (DME) BD Insulin Syringe (half unit) 0.3 mL 31 gauge x 5/16 syringe See Rx Instructions .Route Qty: 10 2RF Rx Instructions: As directed (DME) blood pressure monitor [Blood Pressure Kit] Kit See Rx Instructions .Route Qty: 1 0RF Rx Instructions: As directed acetaminophen 500 mg tablet 500 mg PO Q6H PRN diphenhydramine HCl [Benadryl] 25 mg capsule 25 mg PO TID PRN sucralfate 1 gram tablet 1 g PO BID albuterol sulfate 90 mcg/actuation HFA aerosol inhaler 2 puff inhalation Q4-6H PRN ProMod Protein Liquid See Rx Instructions PO BID Rx Instructions: 30 ml orally twice a day; sevelamer carbonate 800 mg tablet 800 mg PO TID Rx Instructions: must administer with a meal/food(crushed in pudding) famotidine 20 mg tablet 20 mg PO BID insulin lispro 100 unit/mL insulin pen 1 sliding scale dose SQ USEASDIRECTD loperamide 2 mg tablet 2 mg PO TID PRN tizanidine 4 mg tablet 4 mg PO HS PRN (Reason: MUSCLE SPASMS) Qty: 90 0RF calcium carbonate 600 mg calcium (1,500 mg) tablet 1,200 mg PO DAILY Qty: 180 3RF cholecalciferol (vitamin D3) 50 mcg (2,000 unit) capsule 50 mcg PO DAILY Qty: 90 3RF gabapentin 300 mg capsule 300 mg PO HS Qty: 30 5RF prasugrel [Effient] 10 mg Tablet 10 mg PO DAILY Qty: 30 3RF ondansetron 4 mg tablet,disintegrating 4 mg PO Q6H PRN (Reason: nausea and vomiting) 5 Days Qty: 20 0RF promethazine 25 mg tablet 25 mg PO Q6H PRN (Reason: nausea and vomiting) Qty: 20 0RF Activity Restrictions/Add. Instructions Additional Instructions/Restrictions: Please take antibiotics as prescribed. Please use lidocaine patches as needed. Please follow-up with your primary care provider. Please return to the emergency department if you develop any new or worsening symptoms or become concerned for your health. Clinical Impressions Clinical Impression: Pneumonia, Rib pain on right side Print Language Print Language: Turkmen Discharge ED Provider: Hernesto Mchugh General Adult HPI General Chief complaint: PAIN Stated complaint: Pain under R breast Time Seen by Provider: 05/29/24 23:07 History of Present Illness HPI narrative: [age] male with history of end-stage renal disease on MWF dialysis, gets dialysis tomorrow, history of left BKA,, coronary artery disease, diabetes presents for right-sided chest wall/rib pain. She reports is been ongoing since last Thursday, several days. She reports it is getting little bit worse. She reports it hurts to take a deep breath and that it hurts when she presses on her ribs. She reports she has had her gallbladder taken out. She reports that her belly does not hurt below the ribs as far she can tell. She reports that she had a port put in recently. Denies any fever, chills, worsening cough etc. Related Data Home Medications ?Medication ?Instructions ?Recorded ?Confirmed acetaminophen 500 mg tablet 500 mg PO Q6H PRN 11/05/23 05/26/24 albuterol sulfate 90 mcg/actuation 2 puff inhalation Q4-6H PRN 11/05/23 05/26/24 aerosol inhaler diphenhydramine HCl 25 mg capsule 25 mg PO TID PRN 11/05/23 05/26/24 (Benadryl) famotidine 20 mg tablet 20 mg PO BID 11/05/23 05/26/24 insulin lispro 100 unit/mL 1 sliding scale dose SQ 11/05/23 05/26/24 subcutaneous pen USEASDIRECTD loperamide 2 mg tablet 2 mg PO TID PRN 11/05/23 05/26/24 protein supplement (ProMod Protein See Rx Instructions PO BID 11/05/23 05/26/24 oral liquid) sevelamer carbonate 800 mg tablet 800 mg PO TID 11/05/23 05/26/24 sucralfate 1 gram tablet 1 g PO BID 11/05/23 05/26/24 mupirocin 2 % topical ointment topical 12/29/23 05/26/24 pen needle,diabetic dual safty 30 #100 ea 12/29/23 05/26/24 gauge x 3/16 (BD AutoShield Duo Pen Needle) carvedilol 12.5 mg tablet 12.5 mg PO BID 02/23/24 05/26/24 venlafaxine 37.5 mg 37.5 mg PO DAILY 02/23/24 05/26/24 capsule,extended release 24 hr amlodipine 10 mg tablet 10 mg PO .COMPLEX 03/01/24 05/26/24 benzonatate 100 mg capsule 100 mg PO TID PRN cough 05/17/24 05/26/24 bisacodyl 10 mg rectal suppository 10 mg MT DAILY PRN 05/17/24 05/26/24 calcitonin (salmon) 200 1 spray intranasal (ALT) DAILY 05/17/24 05/26/24 unit/actuation nasal spray epoetin gia 20,000 unit/mL 20,000 unit SQ WEEKLY 05/17/24 05/26/24 injection solution (Procrit) fexofenadine 180 mg tablet 180 mg PO DAILY 05/17/24 05/26/24 (Allergy Relief (fexofenadine)) hydrocodone 5 mg-acetaminophen 325 1 tab PO Q6H PRN 05/17/24 05/26/24 mg tablet insulin NPH-regular 70-30 U-100 15 unit SQ QAM 05/17/24 05/26/24 insulin 100 unit/mL subcutaneous pen (Humulin 70/30 U-100 KwikPen) polyethylene glycol 3350 17 g PO DAILY 05/17/24 05/26/24 gram/dose oral powder pseudoephedrine HCl 60 mg tablet 60 mg PO Q6H PRN 05/17/24 05/26/24 (Sudogest) Previous Rx's ?Medication ?Instructions ?Recorded atorvastatin 40 mg tablet 40 mg PO HS Cholesterol #90 tabs 11/25/21 insulin syr/ndl U100 half maged 0.3 #10 ea 09/17/22 mL 31 gauge x 5/16 (BD Insulin Syringe Ultra-Fine (half unit)) pen needle, diabetic 31 gauge x #100 ea 09/17/22 5/16 (Comfort EZ Pen [place]) blood pressure monitor (Blood #1 ea 02/06/23 Pressure Kit) ondansetron 4 mg disintegrating 4 mg PO Q6H PRN nausea and 05/10/23 tablet vomiting 5 days #20 tabs aspirin 81 mg tablet,delayed 81 mg PO DAILY antiplatelet #90 06/17/23 release tabs promethazine 25 mg tablet 25 mg PO Q6H PRN nausea and 12/02/23 vomiting #20 tabs prasugrel 10 mg tablet (Effient) 10 mg PO DAILY #30 tabs 02/11/24 tizanidine 4 mg tablet 4 mg PO HS PRN MUSCLE SPASMS #90 02/23/24 tabs calcium carbonate 1,200 mg (2 x 600 mg calcium 03/15/24 (1,500 mg)) PO DAILY #180 tabs cholecalciferol (vitamin D3) 50 50 mcg PO DAILY #90 caps 03/15/24 mcg (2,000 unit) capsule lidocaine 5 % topical patch 1 patch topical DAILY #30 ea 04/07/24 gabapentin 300 mg capsule 300 mg PO HS #30 caps 04/21/24 insulin glargine 100 unit/mL (3 75 unit (0.75 mL) SQ HS #15 mL 05/13/24 mL) subcutaneous pen (Basaglar KwikPen U-100 Insulin) azelastine 137 mcg (0.1 %) nasal 2 spray intranasal BID #30 mL 05/17/24 spray ciprofloxacin 0.3 %-dexamethasone 2 drp otic (ear) BID ear pain 10 05/17/24 0.1 % ear drops,suspension days #7.5 mL (Ciprodex) amoxicillin 500 mg-potassium 1 tab PO DAILY #5 tabs 05/30/24 clavulanate 125 mg tablet azithromycin 250 mg tablet 250 mg PO DAILY 4 days #4 tabs 05/30/24 lidocaine 5 % topical patch 1 patch topical DAILY PRN pain #30 05/30/24 ea Allergies Allergy/AdvReac Type Severity Reaction Status Date / Time acetaminophen [From Tylox] Allergy Vomiting Verified 05/26/24 09:15 oxycodone [From Tylox] Allergy Verified 05/26/24 09:15 Sulfa (Sulfonamide Allergy ITCHING, Verified 05/26/24 09:15 Antibiotics) BURNING IN [SULFA (SULFONAMIDE EYES ANTIBIOTICS)] [facility] Disclaimer: The information contained in this section may have been updated after the patient was seen, as this information can be updated by other users. 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 Low back pain Diabetes mellitus Abnormal findings on diagnostic imaging of heart and coronary circulation Pericardial effusion Pre-op testing Acute kidney injury Other pericardial effusion (noninflammatory) Allergies Amputation of left lower extremity below knee Amputation toe 4 TOES AMPUTATED ON RIGHT FOOT in 2022 Ovarian cyst Amputation of left lower extremity below knee Surgical History History of amputation of toe complete amputation of all toes on right foot H/O left knee surgery Hx of section History of surgery HEART CATH 2 STENTS PLACED History of cholecystectomy History of esophagogastroduodenoscopy (EGD) History of hip surgery LEFT HIP, 2018 History of left below knee amputation 2019 History of tonsillectomy History of carpal tunnel release History of arthroplasty of right knee History of arthroplasty of left hip Family History Mother Coronary artery disease Father Coronary artery disease Sister Coronary artery disease Other Cancer Diabetes Social History Smoking Status: Current every day smoker tobacco type: cigarettes packs per day: 1 smoking status stop date: quit status: considering quitting second hand exposure: No alcohol intake: never substance use type: denies use current occupational status: unemployed and disabled Travel in the last 8 weeks: None housing: long term marital status: single number of children: 1 education level: high school diet: diabetic caffeine: No special leslie needs: No do you feel safe at home: Yes Other Medical History Have you received the Flu Vaccine for this season: No Have you received the Pneumonia Vaccine: Yes ROS Obtained: Yes All systems reviewed & no additional complaints except as documented Physical Exam General General appearance: alert and anxious Head Head exam: atraumatic and normocephalic Eye Eye exam: Present normal appearance, PERRL and EOMI ENT ENT exam: Present normal oropharynx and normal external ear exam Neck Neck exam: Present normal inspection and full ROM Chest Chest inspection: Present normal inspection, symmetric chest wall rise and tenderness (Right anterior lateral chest wall) Respiratory Respiratory exam: Present normal lung sounds bilaterally; Absent respiratory distress Cardiovascular Cardiovascular exam: Present regular rate and normal rhythm Abdominal Exam Abdominal exam: Present soft and tenderness (Right upper quadrant); Absent distention or guarding Extremities Exam Extremities exam: Present other (Left lower extremity BKA); Absent edema or joint swelling Back Exam Back exam: Present normal inspection; Absent tenderness Neurological Exam Neurological exam: Present alert and oriented X3; Absent motor sensory deficit Psychiatric Psychiatric exam: Present normal affect and normal mood Skin Skin exam: Present warm, dry and normal color Lymphatic Lymphatic Findings: no adenopathy Medical Decision Making Medical Records Medical records reviewed: Yes I reviewed the patient's medical records. Screening: Per USPSTF and CDC recommendations, given the prevalence of disease in our region, it is our hospital?s policy to screen for HIV and viral Hepatitis for all patients aged 18 and over and those with ongoing risk factors. Mauri Inquiry Pt receiving controlled substance: No Mauri was queried for this patient: No Vital Signs: 05/29/24 23:04 05/29/24 23:30 05/30/24 00:01 Temperature 97.9 F Temperature Source Oral Pulse Rate 80 75 Pulse Rate [Right Radial] 85 Respiratory Rate 18 Blood Pressure 187/86 H 153/76 H Blood Pressure [Right Arm] 184/91 H Blood Pressure Mean [Right Arm] 122 Blood Pressure Source Blood Pressure Source [Right Arm] Automatic Cuff Blood Pressure Position 02 Sat by Pulse Oximetry 97 94 L 95 Oxygen Delivery Method Room Air 05/30/24 00:31 05/30/24 01:00 05/30/24 01:54 Temperature 97.9 F Temperature Source Oral Pulse Rate 81 77 89 Pulse Rate [Right Radial] Respiratory Rate 18 Blood Pressure 140/60 130/69 148/72 H Blood Pressure [Right Arm] Blood Pressure Mean [Right Arm] Blood Pressure Source Automatic Cuff Blood Pressure Source [Right Arm] Blood Pressure Position Supine 02 Sat by Pulse Oximetry 95 96 Oxygen Delivery Method Room Air Lab Data Lab results reviewed: Yes I reviewed the patient's lab results. Lab Results 05/29/24 23:08: WBC 10.2, RBC 3.51 L, Hgb 11.5 L, Hct 34.1 L, MCV 97.3, MCH 32.9 H, MCHC 33.8, RDW 14.0, Plt Count 300, MPV 7.7, Neut % (Auto) 66.9, Lymph % (Auto) 27.2, [place] % (Auto) 3.7, Eos % (Auto) 1.6, Baso % (Auto) 0.6, Neut # (Auto) 6.8, Lymph # (Auto) 2.8, [place] # (Auto) 0.4, Eos # (Auto) 0.2, Baso # (Auto) 0.1, D-Dimer 1.12 H, Sodium 138, Potassium 4.3, Chloride 100, Carbon Dioxide 32 H, Anion Gap 10.3, BUN 56 H, Creatinine 6.20 H, Estimated Creat Clear 19, Estimated GFR 7 L*, Est GFR ( Amer) 9 L*, Glucose 212 H, Calcium 8.8, Total Bilirubin 0.6, AST 27, ALT 21, Alkaline Phosphatase 198 H, Troponin I < 0.01, Total Protein 6.5, Albumin 3.9, Globulin 2.6, Albumin/Globulin Ratio 1.5, Lipase 33, HIV 1&2 Antibody Rapid Nonreactive 05/29/24 23:08 05/29/24 23:08 Orders (Tests/Meds): ED MEDICATIONS Discontinued Medications Generic Name Dose Route Start Last Admin Trade Name Freq PRN Reason Stop Dose Admin Amoxicillin/Clavulanate Potassium 1 each 05/30/24 01:15 05/30/24 01:28 Amoxicillin/Pot Clavulan 500mg Tablet PO 05/30/24 01:16 Not Given ONCE ONE Amoxicillin/Clavulanate Potassium 500 mg 05/30/24 01:21 05/30/24 01:30 Amox & Pot Clavulanate 400-57mg/5ml 50ml Bottle PO 05/30/24 01:22 500 mg ONCE ONE Administration Azithromycin 500 mg 05/30/24 01:15 05/30/24 01:29 Azithromycin 250mg Tablet PO 05/30/24 01:16 500 mg ONCE ONE Administration Hydromorphone HCl 0.5 mg 05/29/24 23:14 05/29/24 23:25 Hydromorphone 2mg/Ml Syringe IV 05/29/24 23:15 0.5 mg ONCE ONE Administration Iopamidol 70 ml 05/30/24 00:33 05/30/24 00:34 Iopamidol-370 (76%);100ml Bottle IV 05/30/24 00:34 70 ml ONCE ONE Administration Lidocaine 1 each 05/30/24 01:16 05/30/24 01:29 Lidocaine 5% Transdermal Patch TP 05/30/24 01:17 1 each ONCE ONE Administration Sodium Chloride 40 ml 05/30/24 00:33 05/30/24 00:34 0.9 % Sodium Chloride 50 Ml Vial IV 05/30/24 00:34 40 ml ONCE ONE Administration Sodium Chloride 10 ml 05/30/24 00:33 05/30/24 00:34 Sodium Chloride 0.9% 10ml Syr (Rad Only) IV 05/30/24 00:34 10 ml ONCE ONE Administration ORDERS Category Date Time Status CT abdomen pelvis w con Stat Cat Scan 05/29/24 23:[address] angio chest PE protocol Stat Cat Scan 05/29/24 23:54 Completed CBC w/Auto Diff [Complete Blood Count Auto Diff] Stat Lab 05/29/24 23:08 Completed CMP [Comprehensive Metabolic Panel] Stat Lab 05/29/24 23:08 Completed D-Dimer Stat Lab 05/29/24 23:08 Completed HIV (1&2) Antibody Rapid Stat Lab 05/29/24 23:08 Completed Hep C Ab with Reflex to RNA Stat Lab 05/29/24 23:08 Received Lipase Stat Lab 05/29/24 23:08 Completed Troponin I Q3H Lab 05/29/24 23:08 Completed ECG Data Tracing #1: I reviewed this ECG and interpreted as documented below: Sinus rhythm, rate of 86, no significant ST elevation, ECG initial impression date: 05/30/24 ECG initial impression time: 23:09 HEART Score History (anamnesis): Slightly suspicious ECG: Normal Age: 45-65 years Risk factors: Atherosclerosis history Troponin: </= normal limit HEART Score: 3 Medical Decision Narrative: 54-year-old female with history of end-stage renal disease, prior left BKA, recent port placement presents for persistent right anterior lateral chest wall tenderness over the last several days.. History was obtained via interactive discussion with patient. On arrival, patient is [afebrile, hemodynamically stable, satting appropriately, alert, oriented x4, GCS 15], moving all extremities spontaneously. Full physical exam performed and significant for tenderness to the right anterior lateral chest wall/rib margin Differential includes but is not limited to PE, pneumonia, rib fracture, hepatic pathology, renal pathology,. Patient was given Dilaudid for symptomatic management and correction of underlying abnormalities. Workup initiated including CBC CMP D-dimer troponin EKG. On re-evaluation, patient [remains afebrile, HD stable.] Reports some symptomatic improvement after medication intervention. Laboratory workup independently interpreted by me and significant for positive D-dimer. Also significant for elevated creatinine consistent with patient's known ESRD. Initial troponin undetectably low. Single troponin will suffice given duration of symptoms and location of pain. Given positive D-dimer and recent risk factors for DVT, I think patient would benefit from contrasted CT scan. Patient reports that she barely makes any urine and is scheduled for dialysis in the morning. I discussed with her the risks and benefits that she reports that she is agreeable to IV contrast. We will perform CT PE and CT abdomen and pelvis. Imaging independently interpreted by me and significant for no PE or rib fracture. Does show atelectasis versus infiltrates bilaterally. Abdomen shows atrophic kidneys but does not show any acute pathology. See radiology read for full review of final results. Given patient history, exam and workup, patient's presentation most likely represents right chest wall pain. Given CT findings this could be atelectasis versus pneumonia. Patient reports that she has had a cough recently. She has not been febrile, nor is hypoxic, has not been coughing anything up. We will treat empirically as pneumonia with renal adjusted Augmentin and azithromycin. Patient was discharged in stable condition with return precautions and prescription for antibiotics and lidocaine patches. Procedures Risk/Benefits of Procedure(s) Were Explained: Yes Critical Care Critical Care Time Critical Care Time: No
[2024-05-29 23:21] LABS: Basophils # 0.1 K/mm3 (0-0.2); Basophils % 0.6 % (0.1-2.0); Eosinophils # 0.2 K/mm3 (0.0-0.4); Eosinophils % 1.6 % (0.1-12.0); Hematocrit 34.1 % (37.0-47.0); Hemoglobin 11.5 g/dL (12.2-16.2); Lymphocytes # 2.8 K/mm3 (0.7-4.5); Lymphocytes % 27.2 % (10-50); Mean Corpuscular HGB Conc 33.8 g/dL (31.8-35.4); Mean Corpuscular Hemoglobin 32.9 pg (27.0-31.2); Mean Corpuscular Volume 97.3 fl (81-99); Mean Platelet Volume 7.7 fl (7.4-10.4); Monocytes # 0.4 K/mm3 (0.1-1.0); Monocytes % 3.7 % (1.7-9.3); Neutrophils # 6.8 K/mm3 (1.8-7.8); Neutrophils % 66.9 % (37.0-80.0); Platelet Count 300 K/mm3 (142-424); Red Blood Count 3.51 M/mm3 (4.20-5.40); White Blood Count 10.2 K/mm3 (4.8-10.8)
[2024-05-29] MEDS: HYDROMORPHONE 2MG/ML SYRINGE 0.5 MG IV (23:25)
[2024-05-29 23:30] VITALS: BP 187/86; PULSE 80; O2SAT 94
[2024-05-29 23:32] LABS: Alanine Aminotransferase 21 U/L (12-78); Albumin Level 3.9 g/dl (3.5-5.0); Albumin/Globulin Ratio 1.5 (1.1-1.8); Alkaline Phosphatase 198 U/L (38-126); Anion Gap 10.3 mEq/L (5-15); Aspartate Amino Transferase 27 U/L (14-36); Bilirubin,Total 0.6 mg/dl (0.2-1.3); Blood Urea Nitrogen 56 mg/dl (7-17); Calcium 8.8 mg/dl (8.4-10.2); Carbon Dioxide 32 mmol/L (22.0-30.0); Chloride 100 mmol/L (98-107); Creatinine Clearance Estimated 19 mL/min (50-200); Estimated Glomerular Filt Rate 7 ml/min (>60); GFR (African American) 9 ML/MIN (>60); Globulin 2.6 g/dL (1.3-3.2); Glucose 212 mg/dl (74-100); Lipase 33 U/L (23-300); Potassium 4.3 mmoL/L (3.5-5.1); Sodium 138 mmol/L (136-145); Total Protein,Serum 6.5 g/dl (6.3-8.2)
[2024-05-29 23:38] LABS: D-Dimer 1.12 ug/mL (0.0-0.5)
--- NOTE | 2024-05-29 23:45 | PC.NURSE ---
Creat of 6.[address] Mchugh at [phone]
[2024-05-29 23:50] LABS: Troponin I < 0.01 ng/ml (0.00-0.034)
--- NOTE | 2024-05-29 23:54 | CT_ITS ---
PROCEDURE INFORMATION: Exam: CT Abdomen And Pelvis With Contrast Exam date and time: 05/30/2024 12:24 AM Age: 54 years old Clinical indication: Abdominal pain; Other: Ruq pain; Additional info: R chest/ribs/ruq pain TECHNIQUE: Imaging protocol: Computed tomography of the abdomen and pelvis with contrast. 3D rendering (Not supervised by radiologist): MIP and/or 3D reconstructed images were created by the technologist. Radiation optimization: All CT scans at this facility use at least one of these dose optimization techniques: automated exposure control; mA and/or kV adjustment per patient size (includes targeted exams where dose is matched to clinical indication); or iterative reconstruction. Contrast material: ISOVUE; Contrast volume: 70 ml; Contrast route: IV; COMPARISON: 1. CT ABDOMEN PELVIS WO CON 05/16/2021 12:[address] ABDOMEN PELVIS W CON 12/28/2020 3:[address] ABDOMEN PELVIS WO CON 09/02/2020 8:18 PM FINDINGS: Liver: Normal. Gallbladder and biliary ducts: The patient is status post cholecystectomy. Pancreas: Normal. Spleen: Normal. Adrenal glands: Bulk fat containing lesion in the right adrenal gland is stable and likely reflects a myelolipoma. Similar 1 cm fat containing lesion in the left adrenal gland. Kidneys and ureters: The kidneys demonstrate thin cortices compatible with atrophy. Stomach and bowel: The stomach, small bowel, and colon are well-distended and show no evidence of wall thickening, masses, or obstruction. Appendix: No evidence of appendicitis. Intraperitoneal space: Unremarkable. Vasculature: The abdominal aorta and its major branches appear normal without evidence of aneurysm or stenosis. There are pelvic phleboliths. Lymph nodes: There are mildly prominent but nonenlarged and nonspecific retroperitoneal nodes. Mildly prominent nodes in the central mesentery, nonspecific. Urinary bladder: Unremarkable as visualized. Reproductive: There is an intrauterine device in place. Bones/joints: Status post intramedullary melvi and nail fixation of a left femoral neck fracture. Soft tissues: There is a small fat containing umbilical hernia. Fat containing subxiphoid hernia is noted. IMPRESSION: No acute inflammatory or obstructive process is identified. Incidental findings are described within the findings section.
--- NOTE | 2024-05-29 23:54 | CT_ITS ---
PROCEDURE INFORMATION: Exam: CTA Chest With Contrast Exam date and time: 05/30/2024 12:24 AM Age: 54 years old Clinical indication: Abnormal findings; Other: Elevated d dimer; Additional info: R lat cp, recent surg, elevated dimer, esrd TECHNIQUE: Imaging protocol: Computed tomographic angiography of the chest with contrast. Exam focused on the arteries. 3D rendering (Not supervised by radiologist): MIP and/or 3D reconstructed images were created by the technologist. Radiation optimization: All CT scans at this facility use at least one of these dose optimization techniques: automated exposure control; mA and/or kV adjustment per patient size (includes targeted exams where dose is matched to clinical indication); or iterative reconstruction. Contrast material: ISOVUE 370; Contrast volume: 70 ml; Contrast route: INTRAVENOUS (IV); COMPARISON: 1. CR XR CHEST PORTABLE PICC PLAC 09/17/2022 10:59 AM 2. CR XR CHEST PORTABLE 09/15/2022 5:09 PM 3. CR XR CHEST PORTABLE PICC PLAC 08/08/2022 8:14 AM FINDINGS: Tubes, catheters and devices: Tunneled left chest dialysis catheter extending to the right atrium. Pulmonary arteries: There is no evidence for clinically relevant pulmonary arterial filling defect. Tiny distal filling defects may be present but are of dubious clinical significance. Aorta: There is atherosclerotic disease of the visualized aorta and its major branch vessels. Lungs: Scattered areas of bronchial wall thickening which are likely chronic inflammatory. A few areas of subpleural reticulation are noted, nonspecific. Parenchymal consolidations at the bases could be on the basis of atelectasis but underlying infection is not completely excluded. Pleural spaces: Unremarkable. No pneumothorax. No pleural effusion. Heart: Unremarkable. No cardiomegaly. No pericardial effusion. Coronary arteries: There is moderate coronary atherosclerotic disease/calcification although evaluation is limited secondary to the non gated nature of the study. Lymph nodes: Unremarkable. No enlarged lymph nodes. Intraperitoneal space: Please see the dedicated interpretation of abdomen and pelvis for findings in that region. Bones/joints: There is diffuse degenerative disease of the visualized osseous structures. Soft tissues: Unremarkable. IMPRESSION: 1. Parenchymal consolidations at the bases could be on the basis of atelectasis but underlying infection is not completely excluded. 2. No evidence for clinically relevant pulmonary arterial filling defect. 3. Please see the dedicated interpretation of abdomen and pelvis for findings in that region.
[2024-05-30 00:01] VITALS: BP 153/76; PULSE 75; O2SAT 95
--- NOTE | 2024-05-30 00:07 | HMH.ITSTN ---
gfr 7. spoke with ER and dr osuna wants patient to have contrast. cannot have fluids due to being dialysis patient. patient is scheduled for dialysis tomorrow per er nurse
[2024-05-30 00:22] LABS: HIV (1&2) Antibody Rapid NONREACTIVE (NONREACTIVE)
[2024-05-30 00:31] VITALS: BP 140/60; PULSE 81; O2SAT 95
[2024-05-30] MEDS: SODIUM CHLORIDE 0.9% 10ML SYR (RAD ONLY) 10 ML IV (00:34)
[2024-05-30] MEDS: IOPAMIDOL-370 (76%);100ML BOTTLE 70 ML IV (00:34)
[2024-05-30] MEDS: 0.9 % SODIUM CHLORIDE 50 ML VIAL 40 ML IV (00:34)
[2024-05-30 01:00] VITALS: BP 130/69; PULSE 77; O2SAT 96
[2024-05-30] MEDS: AZITHROMYCIN 250MG TABLET 500 MG PO (01:29)
[2024-05-30] MEDS: LIDOCAINE 5% TRANSDERMAL PATCH 1 EACH TP (01:29)
[2024-05-30] MEDS: AMOX & POT CLAVULANATE 400-57MG/5ML 50ML BOTTLE 500 MG PO (01:30)
[2024-05-30 01:54] VITALS: BP 148/72; PULSE 89; RESP 18; TEMP 36.6; O2SAT 98
--- NOTE | 2024-05-30 23:13 | ECG_ITS ---
APPROVED REPORT Exam: Resting ECG HR:86 bpm ECG Measurements Heart Rate 86 AXES CA 160 P 58 QRSd 90 QRS 18 QT 370 T 55 QTc 413 Conclusion SINUS RHYTHM LOW QRS VOLTAGE IN PRECORDIAL LEADS [QRS DEFLECTION < 1.0 mV IN CHEST LEADS] POSSIBLE ANTERIOR MYOCARDIAL INFARCTION , PROBABLY OLD [30 ms Q WAVE IN V3/V4, OR R < 0.2 mV IN V4] BORDERLINE ECG UNCONFIRMED REPORT Electronically signed by : SANDRA JULIAN, 05/30/2024 06:36:49
[2024-05-31 08:19] LABS: HCV Ab Non Reactive (Non Reactive)
== END 2024-05-30 02:30 | disposition home or self-care (01) ==
PROVIDERS: Emergency Provider Emergency Medicine; PCP Internal Medicine
DX: J18.9 Pneumonia, unspecified organism (principal); R07.89 Other chest pain; R07.81 Pleurodynia; N18.9 Chronic kidney disease, unspecified; Z99.2 Dependence on renal dialysis
CPT/HCPCS: 71275; 74177; 80053; 83690; 84484; 85025; 85378; 86803; 87389; 93005; 96374; 99285; J1171; Q9967

== ENCOUNTER 2024-06-09 07:42 | Day surgery (SDC) | payer MEDICARE, MEDICAID, SELFPAY ==
[2024-06-09 07:56] VITALS: BMI 40.1
[2024-06-09 08:03] VITALS: BP 167/86; PULSE 82; RESP 16; TEMP 36.2; O2SAT 94
[2024-06-09] MEDS: 0.9 % SODIUM CHLORIDE 1000ML 1,000 ML 25 ML IV (08:11)
--- NOTE | 2024-06-09 08:14 | P.PNANES_ITS ---
[facility] Disclaimer: The information contained in this section may have been updated after the patient was seen, as this information can be updated by other users. Medical History Left ear pain Tinnitus, left ear Fistula Carpal tunnel syndrome of left wrist Low back pain Diabetes mellitus Abnormal findings on diagnostic imaging of heart and coronary circulation Pericardial effusion Pre-op testing Acute kidney injury Other pericardial effusion (noninflammatory) Allergies Amputation of left lower extremity below knee Amputation toe Ovarian cyst Amputation of left lower extremity below knee Surgical History History of cardiac cath History of amputation of toe H/O left knee surgery Hx of section History of surgery History of cholecystectomy History of esophagogastroduodenoscopy (EGD) History of hip surgery History of left below knee amputation History of tonsillectomy History of carpal tunnel release History of arthroplasty of right knee History of arthroplasty of left hip Family History Mother Coronary artery disease Father Coronary artery disease Sister Coronary artery disease Other Cancer Diabetes Social History Smoking Status: Current every day smoker tobacco type: cigarettes packs per day: 1 smoking status stop date: 20 quit status: considering quitting second hand exposure: No alcohol intake: never substance use type: denies use current occupational status: unemployed and disabled Travel in the last 8 weeks: None housing: intermediate marital status: single number of children: 1 education level: high school diet: diabetic caffeine: No special leslie needs: No do you feel safe at home: Yes [facility] Anesthesia Checklist Patient Identification Patient Identification: Arm Band and Verbal (Name & ) Structural Data Admitted From: Home Planned Operative Procedure/s: Colonoscopy Consent for Planned Operative Procedure(s) Verified: Yes Verified Documents: Surgical Consent and History and Physical NPO Status Verified Time NPO: 00:00 Additional verifications Anesthesia Reactions: Yes (nausea) Hx Blood Transfusions: No Blood Transfusion Reaction: No Neurological Assessment Level of Consciousness: Awake Hx Seizures: No Numbness or tingling in extremities: No Anesthesia Plan Anesthesia Risk discussed: Yes Anesthesia Plan: Verified ASA Class: IV Anesthesia Type: MAC
[2024-06-09 08:36] LABS: POC Glucose,Bedside 188 (70-110)
[2024-06-09] MEDS: SODIUM PHOS/BIPHOSPHATE FLEET 133ML ENEMA 266 ML RC (09:08)
[2024-06-09 09:53] VITALS: O2SAT 96
--- NOTE | 2024-06-09 09:59 | EXP.HP ---
History of Present Illness *Admission Date: 06/09/24 *Reason for visit:: Screening *History of present illness: Mrs. Burkett is a 54-year-old female who is here for initial screening colonoscopy. The examination is deemed medically necessary for colonoscopy. The patient has been seen, interviewed and examined prior to the procedure by both myself and the anesthesia provider. [facility] Disclaimer: The information contained in this section may have been updated after the patient was seen, as this information can be updated by other users. Medical History Left ear pain Tinnitus, left ear Fistula Carpal tunnel syndrome of left wrist Low back pain Diabetes mellitus Abnormal findings on diagnostic imaging of heart and coronary circulation Pericardial effusion Pre-op testing Acute kidney injury Other pericardial effusion (noninflammatory) Allergies Amputation of left lower extremity below knee Amputation toe Ovarian cyst Amputation of left lower extremity below knee Surgical History History of cardiac cath History of amputation of toe H/O left knee surgery Hx of section History of surgery History of cholecystectomy History of esophagogastroduodenoscopy (EGD) History of hip surgery History of left below knee amputation History of tonsillectomy History of carpal tunnel release History of arthroplasty of right knee History of arthroplasty of left hip Family History Mother Coronary artery disease Father Coronary artery disease Sister Coronary artery disease Other Cancer Diabetes Social History Smoking Status: Current every day smoker tobacco type: cigarettes packs per day: 1 smoking status stop date: 20 quit status: considering quitting second hand exposure: No alcohol intake: never substance use type: denies use current occupational status: unemployed and disabled Travel in the last 8 weeks: None housing: longterm marital status: single number of children: 1 education level: high school diet: diabetic caffeine: No special leslie needs: No do you feel safe at home: Yes Other Medical History Have you received the Flu Vaccine for this season: No Have you received the Pneumonia Vaccine: Yes Review of Systems Review of Systems Review of systems (narrative): Negative *Cardiovascular Comments: Negative *Gastrointestinal Comments: Negative *Genitourinary Comments: Negative *Musculoskeletal Comments: Negative *Neurologic Comments: Negative Meds Home Medications and Allergies Home Medications ?Medication ?Instructions ?Recorded ?Confirmed ?Type atorvastatin 40 mg tablet 40 mg PO HS Cholesterol #90 tabs 11/25/21 06/09/24 Rx insulin syr/ndl U100 half maged 0.3 #10 ea 09/17/22 05/26/24 Rx mL 31 gauge x 5/16 (BD Insulin Syringe Ultra-Fine (half unit)) pen needle, diabetic 31 gauge x #100 ea 09/17/22 05/26/24 Rx 5/16 (Comfort EZ Pen [place]) blood pressure monitor (Blood #1 ea 02/06/23 05/26/24 Rx Pressure Kit) ondansetron 4 mg disintegrating 4 mg PO Q6H PRN nausea and 05/10/23 06/09/24 Rx tablet vomiting 5 days #20 tabs aspirin 81 mg tablet,delayed 81 mg PO DAILY antiplatelet #90 06/17/23 06/09/24 Rx release tabs acetaminophen 500 mg tablet 500 mg PO Q6H PRN Pain 11/05/23 06/09/24 History albuterol sulfate 90 mcg/actuation 2 puff inhalation Q4-6H PRN soa 11/05/23 06/09/24 History aerosol inhaler diphenhydramine HCl 25 mg capsule 25 mg PO TID PRN Insomnia 11/05/23 06/09/24 History (Benadryl) famotidine 20 mg tablet 20 mg PO BID 11/05/23 06/09/24 History insulin lispro 100 unit/mL 1 sliding scale dose SQ 11/05/23 06/09/24 History subcutaneous pen USEASDIRECTD loperamide 2 mg tablet 2 mg PO TID PRN Diarrhea 11/05/23 06/09/24 History protein supplement (ProMod Protein See Rx Instructions PO BID 11/05/23 06/09/24 History oral liquid) sevelamer carbonate 800 mg tablet 800 mg PO TID 11/05/23 06/09/24 History sucralfate 1 gram tablet 1 g PO BID 11/05/23 06/09/24 History promethazine 25 mg tablet 25 mg PO Q6H PRN nausea and 12/02/23 06/09/24 Rx vomiting #20 tabs pen needle,diabetic dual safty 30 #100 ea 05/28/24 10/24/24 History gauge x 3/16 (BD AutoShield Duo Pen Needle) prasugrel 10 mg tablet (Effient) 10 mg PO DAILY #30 tabs 02/11/24 06/09/24 Rx carvedilol 12.5 mg tablet 12.5 mg PO BID 02/23/24 06/09/24 History tizanidine 4 mg tablet 4 mg PO HS PRN MUSCLE SPASMS #90 02/23/24 06/09/24 Rx tabs venlafaxine 37.5 mg 37.5 mg PO DAILY 02/23/24 06/09/24 History capsule,extended release 24 hr amlodipine 10 mg tablet 10 mg PO .COMPLEX 03/01/24 06/09/24 History calcium carbonate 1,200 mg (2 x 600 mg calcium 03/15/24 06/09/24 Rx (1,500 mg)) PO DAILY #180 tabs cholecalciferol (vitamin D3) 50 50 mcg PO DAILY #90 caps 03/15/24 06/09/24 Rx mcg (2,000 unit) capsule gabapentin 300 mg capsule 300 mg PO HS #30 caps 04/21/24 06/09/24 Rx azelastine 137 mcg (0.1 %) nasal 2 spray intranasal BID #30 mL 05/17/24 06/09/24 Rx spray benzonatate 100 mg capsule 100 mg PO TID PRN cough 05/17/24 06/09/24 History bisacodyl 10 mg rectal suppository 10 mg GA DAILY PRN Constipation 05/17/24 06/09/24 History calcitonin (salmon) 200 1 spray intranasal (ALT) DAILY 05/17/24 06/09/24 History unit/actuation nasal spray epoetin gia 20,000 unit/mL 20,000 unit SQ WEEKLY 05/17/24 06/09/24 History injection solution (Procrit) fexofenadine 180 mg tablet 180 mg PO DAILY 05/17/24 06/09/24 History (Allergy Relief (fexofenadine)) hydrocodone 5 mg-acetaminophen 325 1 tab PO Q6H PRN Pain 05/17/24 06/09/24 History mg tablet insulin NPH-regular 70-30 U-100 15 unit SQ QAM 05/17/24 06/09/24 History insulin 100 unit/mL subcutaneous pen (Humulin 70/30 U-100 KwikPen) polyethylene glycol 3350 17 17 g PO DAILY 05/17/24 05/26/24 History gram/dose oral powder pseudoephedrine HCl 60 mg tablet 60 mg PO Q6H PRN Chest Congestion 05/17/24 06/09/24 History (Sudogest) insulin glargine 100 unit/mL (3 85 unit (0.85 mL) SQ HS #15 mL 06/07/24 06/09/24 Rx mL) subcutaneous pen (Basaglar KwikPen U-100 Insulin) New Prescriptions to Start Prescriptions: Allergies Allergy/AdvReac Type Severity Reaction Status Date / Time acetaminophen [From Tylox] Allergy Vomiting Verified 06/09/24 08:00 oxycodone [From Tylox] Allergy Nausea Verified 06/09/24 08:00 Sulfa (Sulfonamide Allergy ITCHING, Verified 06/09/24 08:00 Antibiotics) BURNING IN [SULFA (SULFONAMIDE EYES ANTIBIOTICS)] Exam Data for Last 24 hours Vital signs and Labs for Last 24 Hours: Temp Pulse Resp BP Pulse Ox O2 Del Method 97.2 F L 82 16 167/86 H 94 L Room Air 06/09/24 08:03 06/09/24 08:03 06/09/24 08:03 06/09/24 08:03 06/09/24 08:03 06/09/24 08:03 Laboratory Results - last 24 hr 06/09/24 08:05: POC Glucose 188 H I & O for Last 24 hours: Intake & Output 06/06/24 06/07/24 06/08/24 06/09/24 23:59 23:59 23:59 23:59 Weight 249 lb *Routine HEENT Exam Head: Present normocephalic Eye: Present EOMI and PERRL ENT: Present mucous membranes moist *Routine Neck Exam Neck: Present supple *Routine Respiratory Exam Respiratory: Present CTA bilaterally *Routine Cardiovascular Exam Cardiovascular: Present RRR *Routine Abdominal Exam Abdominal: Present soft and normoactive bowel sounds; Absent tenderness *Routine Rectal Exam Rectal:: deferred *Routine Genitalia Exam Genitalia:: deferred *Routine Extremities Exam Extremities: Absent cyanosis, clubbing or edema *Routine Skin Exam Skin: Present warm; Absent rash *Routine Neurological Exam Neurological: Present alert and oriented X3 Assessment and Plan *Assessment and plan (1) Colon cancer screening: Status: Acute Category: Medical Code(s): Z12.11 - Encounter for screening for malignant neoplasm of colon Plan A/P: 1. Screening for colon cancer is the preprocedural diagnosis. The patient will be anesthetized/sedated using MAC sedation. The patient has been seen and examined. Cardiac and lung assessment prior to the examination is stable. Proceed with planned colonoscopy
--- NOTE | 2024-06-09 10:01 | P.PCN_ITS ---
[facility] Procedure Note Date: 06/09/24 Time: 10:17 Procedure Note:: Colonoscopy Procedure Report: Colonoscopy with cold snare polypectomy Endoscopist: Kelechi Cummins II, MD Referring physician: Wally Yoo MD Date of Procedure: June 09, 2024 Equipment: Olympus 190 variable stiffness pediatric colonoscope Sedation: MAC sedation Indication: Mrs. Burkett is a 54-year-old female who is here for initial screening colonoscopy. She resides in the [facility] [place]. She reports no abdominal pain, weight loss, change in her bowel habits or rectal bleeding. She reports no family history of colon cancer. Procedure: Prior to the procedure, a history and physical exam was performed, and patient's medications and allergies were reviewed. The risks, benefits and alternatives of the sedation and procedure were discussed with the patient. All questions were answered and informed consent was obtained. The patient was brought to the procedure room. Patient identification and proposed procedure were verified by the physician and the nurse. The patient was placed in a left lateral decubitus position and the scope was passed under direct vision. Throughout the procedure, the patient's blood pressure, pulse, and oxygen saturations were monitored continuously. The colonoscopy was accomplished without difficulty. The patient tolerated the procedure well. Findings: Prior to the examination, she had brown liquid stools and was given 2 fleets enemas. On digital rectal examination there was normal rectal tone. There were no external hemorrhoids. The colonoscope was introduced through the anal canal to the rectum and advanced to the cecum. The ileocecal valve and smitha endiceal orifice were identified. The preparation was very poor with brown liquid stool throughout. Multiple washings were performed. There was a single 9 to 10 mm polyp in the descending colon removed via cold snare polypectomy. There were no other visible gross lesions but diminutive polyps would be hard to visualize because of the poor preparation. The remaining visible cecum, ascending, transverse, descending, sigmoid and rectum were grossly normal. There were no other mucosal abnormalities identified. Upon retroflexion within the rectum there were 1-2 internal hemorrhoids.The preparation was poor throughout with Fitzhugh Preparation Score of 4 out of 9. The cecal time was 17 minutes. Impression: 1. 9 to 10 mm descending colon polyp 2. Very poor bowel preparation Plan: Given the difficulty of getting this patient here and preparation (despite very poor prep quality), I am not going to recommend repeat surveillance presently since I was able to visualize most of the colonic mucosa and there were no gross lesions. I will follow-up the present polyp histology and recommend surveillance in 5 years.
[2024-06-09 10:23] VITALS: BP 123/59; PULSE 86; RESP 16; TEMP 36.8; O2SAT 98
[2024-06-09 10:33] VITALS: BP 91/53; PULSE 85; RESP 18; O2SAT 98
[2024-06-09 10:43] VITALS: BP 119/63; PULSE 80; RESP 18; O2SAT 97
[2024-06-09 10:53] VITALS: BP 107/64; PULSE 79; RESP 18; TEMP 36.8; O2SAT 97
== END 2024-06-09 10:53 | disposition home or self-care (01) ==
PROVIDERS: PCP Internal Medicine; Visit Provider Internal Medicine Gastroenterology
PROC: (CPT 45385; principal; 2024-06-09 09:30)
DX: Z12.11 Encounter for screening for malignant neoplasm of colon (principal); K63.5 Polyp of colon; E11.8 Type 2 diabetes mellitus with unspecified complications; Z79.4 Long term (current) use of insulin
CPT/HCPCS: 45385; 82962; J7030

== ENCOUNTER 2024-07-07 10:12 | Outpatient (POV) | payer MEDICARE, MEDICAID, SELFPAY ==
--- NOTE | 2024-07-07 10:34 | A.OFFVIS_ITS ---
HPI Data of Consult Patient: new to practice Consult date: 07/07/24 Requesting Physician: Nichol Robledo APRN Primary Care Provider: Wally Yoo MD Consult Narrative Reason for consult: Low back pain, bilateral hip pain History of present illness: Ms. Burkett is a 54 year old female who presents today as a new patient. She is a referral from Julieta Burgos's office. Today she rates her pain a 7 out of 10. Patient states that she has had chronic back pain for years however over the last 3 months that is progressively worsened to the extent that it is more severe and fairly constant. She denies any radiating symptoms into her legs. Patient states that it is a throbbing sensation that is worse with certain positions and that seems aggravated when she lays down. Patient does state it is interfering with her ability perform activities of daily living such as cooking and cleaning. Patient has tried oral medications including Tylenol, gabapentin and tizanidine along with heat and ice and lidocaine patches. Patient is a resident of [facility] and does try and do at home stretching and exercise for longer than 12 weeks with minimal relief. Patient has had physical therapy in the past. Patient does also have a significant history of falls and in 2018 fractured her left hip and ended up having to have hardware and surgery placed. She states then again in August 2023 she ended up breaking her left knee and left arm. Patient does have a left below the knee amputation. Patient does also have significant heart history, diabetes and is on dialysis.Her Mauri has been reviewed and is appropriate. CC: Nichol Robledo APRN [facility] Disclaimer: The information contained in this section may have been updated after the patient was seen, as this information can be updated by other users. Medical History (Updated 07/07/24 @ 10:56 by Nichol Robledo APRN) Nausea vomiting and diarrhea Pneumonia Rib pain on right side Left ear pain Tinnitus, left ear Fistula Carpal tunnel syndrome of left wrist Low back pain Diabetes mellitus Abnormal findings on diagnostic imaging of heart and coronary circulation Pericardial effusion Pre-op testing Acute kidney injury Other pericardial effusion (noninflammatory) Allergies Amputation of left lower extremity below knee Amputation toe Ovarian cyst Amputation of left lower extremity below knee Surgical History History of cardiac cath History of amputation of toe H/O left knee surgery Hx of section History of surgery History of cholecystectomy History of esophagogastroduodenoscopy (EGD) History of hip surgery History of left below knee amputation History of tonsillectomy History of carpal tunnel release History of arthroplasty of right knee History of arthroplasty of left hip Family History Mother Coronary artery disease Father Coronary artery disease Sister Coronary artery disease Other Cancer Diabetes Social History Smoking Status: Current every day smoker tobacco type: cigarettes packs per day: 1 smoking status stop date: 20 quit status: considering quitting second hand exposure: No alcohol intake: never substance use type: denies use current occupational status: unemployed and disabled Travel in the last 8 weeks: None housing: senior living marital status: single number of children: 1 education level: high school diet: diabetic caffeine: No special leslie needs: No do you feel safe at home: Yes Review of Systems Review of Systems Review of systems:: pertinent systems reviewed and negative unless documented below Review of systems (narrative): Review of Systems: General: No recent weight changes, no fever, no sleep disturbances Respiratory: No cough, no shortness of air, no recurring pulmonary infections Cardiovascular/peripheral vascular: No chest pain, no palpitations, no edema, no shortness of breath Gastrointestinal: No new onset incontinence, normal bowel movements reported Genitourinary: No new onset incontinence Musculoskeletal: [Low back pain, bilateral hip pain Psychiatric: [Normal mood/affect] Neurological: [Denies weakness in extremities], [denies balance issues] Meds Home Medications and Allergies Home Medications ?Medication ?Instructions ?Recorded ?Confirmed ?Type atorvastatin 40 mg tablet 40 mg PO HS Cholesterol #90 tabs 11/25/21 06/14/24 Rx insulin syr/ndl U100 half maged 0.3 #10 ea 09/17/22 05/26/24 Rx mL 31 gauge x 5/16 (BD Insulin Syringe Ultra-Fine (half unit)) pen needle, diabetic 31 gauge x #100 ea 09/17/22 05/26/24 Rx 5/16 (Comfort EZ Pen [place]) blood pressure monitor (Blood #1 ea 02/06/23 05/26/24 Rx Pressure Kit) aspirin 81 mg tablet,delayed 81 mg PO DAILY antiplatelet #90 06/17/23 06/14/24 Rx release tabs acetaminophen 500 mg tablet 500 mg PO Q6H PRN Pain 11/05/23 06/14/24 History diphenhydramine HCl 25 mg capsule 25 mg PO TID PRN Insomnia 11/05/23 06/14/24 History (Benadryl) famotidine 20 mg tablet 20 mg PO BID 11/05/23 06/14/24 History insulin lispro 100 unit/mL 1 sliding scale dose SQ 11/05/23 06/14/24 History subcutaneous pen USEASDIRECTD sevelamer carbonate 800 mg tablet 800 mg PO TID 11/05/23 06/14/24 History sucralfate 1 gram tablet 1 g PO BID 11/05/23 06/14/24 History promethazine 25 mg tablet 25 mg PO Q6H PRN nausea and 12/02/23 06/14/24 Rx vomiting #20 tabs pen needle,diabetic dual safty 30 #100 ea 12/29/23 05/26/24 History gauge x 3/16 (BD AutoShield Duo Pen Needle) prasugrel 10 mg tablet (Effient) 10 mg PO DAILY #30 tabs 02/11/24 06/14/24 Rx carvedilol 12.5 mg tablet 12.5 mg PO BID 02/23/24 06/14/24 History tizanidine 4 mg tablet 4 mg PO HS PRN MUSCLE SPASMS #90 02/23/24 06/14/24 Rx tabs venlafaxine 37.5 mg 37.5 mg PO DAILY 02/23/24 06/14/24 History capsule,extended release 24 hr amlodipine 10 mg tablet 10 mg PO .COMPLEX 03/01/24 06/14/24 History calcium carbonate 1,200 mg (2 x 600 mg calcium 03/15/24 06/14/24 Rx (1,500 mg)) PO DAILY #180 tabs cholecalciferol (vitamin D3) 50 50 mcg PO DAILY #90 caps 03/15/24 06/14/24 Rx mcg (2,000 unit) capsule gabapentin 300 mg capsule 300 mg PO HS #30 caps 04/21/24 06/14/24 Rx azelastine 137 mcg (0.1 %) nasal 2 spray intranasal BID #30 mL 05/17/24 06/14/24 Rx spray benzonatate 100 mg capsule 100 mg PO TID PRN cough 05/17/24 06/14/24 History bisacodyl 10 mg rectal suppository 10 mg LA DAILY PRN Constipation 05/17/24 06/14/24 History calcitonin (salmon) 200 1 spray intranasal (ALT) DAILY 05/17/24 06/14/24 History unit/actuation nasal spray epoetin gia 20,000 unit/mL 20,000 unit SQ WEEKLY 05/17/24 06/14/24 History injection solution (Procrit) fexofenadine 180 mg tablet 180 mg PO DAILY 05/17/24 06/14/24 History (Allergy Relief (fexofenadine)) insulin NPH-regular 70-30 U-100 15 unit SQ QAM 05/17/24 06/14/24 History insulin 100 unit/mL subcutaneous pen (Humulin 70/30 U-100 KwikPen) polyethylene glycol 3350 17 17 g PO DAILY 05/17/24 06/14/24 History gram/dose oral powder pseudoephedrine HCl 60 mg tablet 60 mg PO Q6H PRN Chest Congestion 05/17/24 06/14/24 History (Sudogest) insulin glargine 100 unit/mL (3 85 unit (0.85 mL) SQ HS #15 mL 06/07/24 06/14/24 Rx mL) subcutaneous pen (Basaglar KwikPen U-100 Insulin) hydrocodone 5 mg-acetaminophen 325 1 tab PO Q4H PRN Pain 06/14/24 06/14/24 History mg tablet isosorbide mononitrate 30 mg 30 mg PO DAILY 06/14/24 06/14/24 History tablet,extended release 24 hr loperamide 2 mg tablet 2 mg PO Q4H PRN Diarrhea 06/14/24 06/14/24 History ondansetron 4 mg disintegrating 4 mg PO TID PRN nausea and vomiting 06/14/24 History tablet New Prescriptions to Start Prescriptions: Allergies Allergy/AdvReac Type Severity Reaction Status Date / Time Sulfa (Sulfonamide Allergy ITCHING, Verified 06/14/24 13:33 Antibiotics) (SULFA BURNING IN (SULFONAMIDE ANTIBIOTICS)) EYES Objective Narrative: Physical Exam: General: Alert and oriented x3, no acute distress, pleasant and cooperative Lungs: Respirations even and unlabored, symmetrical chest expansion Eyes: PERRL Musculoskeletal: Flexion and extension of lumbar [spine] somewhat guarded secondary to pain, [antalgic gait noted] point tenderness along bilateral SIs with positive bilateral Natalia's, Marika's, Gaenslen's, compression and distraction exam Neurological: Speech clear, no gross sensory deficit Assessment and Plan *Assessment and plan (1) Sacroiliitis: Status: Acute Category: Medical Code(s): M46.1 - Sacroiliitis, not elsewhere classified (2) Low back pain: Status: Acute Category: Medical Code(s): M54.50 - Low back pain, unspecified Plan Patient is experiencing worsening pain along the low back and bilateral hips. They did have limited range of motion of the lumbar spine along with point tenderness along bilateral SI joints and a positive bilateral Natalia's, Marika's, Gaenslen's, compression and distraction exam. I did discuss with the patient that I do believe they would benefit from bilateral SI injections. Risk and benefits were discussed with the patient and they would like to proceed forward with this option. Patient has tried and failed conservative therapy including continued at home stretching exercise for longer than 12 weeks. Patient will be scheduled for bilateral SI injections under fluoroscopy. Patient has been instructed to contact the clinic with any concerns before the next appointment. Dr. Gomes has reviewed this note and agrees with this plan of care. This note was dictated using voice recognition software and make contain errors or omissions. All injections are used with Lidocaine or Bupivacaine and Depo Medrol. Patient has been instructed to contact the clinic with any concerns before the next appointment. Dr. Gomes has reviewed this note and agrees with this plan of care. This note was dictated using voice recognition software and make contain errors or omissions. All injections are used with Lidocaine or Bupivacaine and Depo Medrol.
[2024-07-07 10:49] VITALS: BP 110/66; PULSE 76; RESP 18; O2SAT 97; BMI 40.1
== END 2024-07-07 23:59 | disposition home or self-care (01) ==
LOC: SC.PAIN 10:14
PROVIDERS: PCP Family Medicine; Visit Provider Nurse Practitioner Family
DX: M46.1 Sacroiliitis, not elsewhere classified (principal); M54.50 Low back pain, unspecified; Z73.89 Other problems related to life management difficulty; Z89.512 Acquired absence of left leg below knee; F17.210 Nicotine dependence, cigarettes, uncomplicated; Z79.899 Other long term (current) drug therapy
CPT/HCPCS: 99202; G0463

== ENCOUNTER 2024-07-29 09:23 | Emergency (ER) | payer MEDICARE, MEDICAID, SELFPAY ==
[2024-07-29] VITALS (9 sets, daily range): BP systolic 114–197; BP diastolic 46–83; PULSE 1–84; RESP 14–18; TEMP 36.7; O2SAT 94–98; BMI 40.3
--- NOTE | 2024-07-29 09:27 | ECG_ITS ---
APPROVED REPORT Exam: Resting ECG HR:80 bpm ECG Measurements Heart Rate 80 AXES [place] 164 P 46 QRSd 99 QRS -3 QT 367 T 57 QTc 403 Conclusion SINUS RHYTHM WITH OCCASIONAL VENTRICULAR PREMATURE COMPLEXES Electronically signed by : STEVE MITCHELL, 07/30/2024 15:16:14
--- NOTE | 2024-07-29 09:33 | PC.NURSE ---
DR MITCHELL AT BEDSIDE
--- NOTE | 2024-07-29 09:37 | PC.NURSE ---
er at bedside
--- NOTE | 2024-07-29 09:42 | HMH.EDGENADL ---
Discharge Plan Disposition Patient Disposition: Xfer Short-Term Hosp Chief Complaint: Nausea/Vomiting/Diarrhea Prescriptions Prescriptions: No Action aspirin 81 mg tablet,delayed release (DR/EC) 81 mg PO DAILY Qty: 90 0RF (DME) BD AutoShield Duo Pen Needle 30 gauge x 3/16 needle See Rx Instructions .ROUTE .MEDSUPPLY Qty: 100 Rx Instructions: As directed venlafaxine 37.5 mg capsule,extended release 24hr 37.5 mg PO DAILY carvedilol 12.5 mg tablet 12.5 mg PO BID amlodipine 10 mg tablet 10 mg PO .COMPLEX Rx Instructions: 10 mg orally daily on T, Thurs, Sat, Sun; fexofenadine [Allergy Relief (fexofenadine)] 180 mg tablet 180 mg PO DAILY Procrit 20,000 unit/mL solution 20,000 unit SQ WEEKLY Patient Comments: given at dialysis calcitonin (salmon) 200 unit/actuation spray,non-aerosol 1 spray intranasal (ALT) DAILY benzonatate 100 mg capsule 100 mg PO TID PRN (Reason: cough) bisacodyl 10 mg suppository 10 mg MI DAILY PRN (Reason: Constipation) polyethylene glycol 3350 17 gram/dose powder 17 g PO DAILY pseudoephedrine HCl [Sudogest] 60 mg tablet 60 mg PO Q6H PRN (Reason: Chest Congestion) Humulin 70/30 U-100 KwikPen 100 unit/mL (70-30) insulin pen 15 unit SQ QAM azelastine 137 mcg (0.1 %) spray,non-aerosol 2 spray intranasal BID Qty: 30 3RF Rx Instructions: administer into each nostril hydrocodone-acetaminophen 5-325 mg tablet 1 tab PO Q4H PRN (Reason: Pain) isosorbide mononitrate 30 mg tablet extended release 24 hr 30 mg PO DAILY ondansetron 4 mg tablet,disintegrating 4 mg PO TID PRN (Reason: nausea and vomiting) atorvastatin 40 mg tablet 40 mg PO HS Qty: 90 3RF (DME) pen needle, diabetic [Comfort EZ Pen [place]] 31 gauge x 5/16 needle See Rx Instructions .Route Qty: 100 2RF Rx Instructions: As directed (DME) BD Insulin Syringe (half unit) 0.3 mL 31 gauge x 5/16 syringe See Rx Instructions .Route Qty: 10 2RF Rx Instructions: As directed (DME) blood pressure monitor [Blood Pressure Kit] Kit See Rx Instructions .Route Qty: 1 0RF Rx Instructions: As directed acetaminophen 500 mg tablet 500 mg PO Q6H PRN (Reason: Pain) diphenhydramine HCl [Benadryl] 25 mg capsule 25 mg PO TID PRN (Reason: Insomnia) sucralfate 1 gram tablet 1 g PO BID sevelamer carbonate 800 mg tablet 800 mg PO TID Rx Instructions: must administer with a meal/food(crushed in pudding) famotidine 20 mg tablet 20 mg PO BID insulin lispro 100 unit/mL insulin pen 1 sliding scale dose SQ USEASDIRECTD tizanidine 4 mg tablet 4 mg PO HS PRN (Reason: MUSCLE SPASMS) Qty: 90 0RF calcium carbonate 600 mg calcium (1,500 mg) tablet 1,200 mg PO DAILY Qty: 180 3RF cholecalciferol (vitamin D3) 50 mcg (2,000 unit) capsule 50 mcg PO DAILY Qty: 90 3RF gabapentin 300 mg capsule 300 mg PO HS Qty: 30 5RF insulin glargine [Basaglar KwikPen U-100 Insulin] 100 unit/mL (3 mL) insulin pen 85 unit SQ HS Qty: 15 11RF loperamide 2 mg tablet 2 mg PO Q4H PRN (Reason: Diarrhea) prasugrel [Effient] 10 mg Tablet 10 mg PO DAILY Qty: 30 3RF promethazine 25 mg tablet 25 mg PO Q6H PRN (Reason: nausea and vomiting) Qty: 20 0RF Clinical Impressions Clinical Impression: Acute renal failure, Nausea, vomiting, and diarrhea Instructions Patient Instructions: DI for Diarrhea and Traveler's Diarrhea -- Adult, DI for Diarrhea and Traveler's Diarrhea -- Child, DI for Nausea -- Adult, DI for Nausea -- Child Print Language Print Language: [place] Discharge ED Provider: Herb Landis General Adult HPI General Chief complaint: Nausea/Vomiting/Diarrhea Stated complaint: Nausea vomitting Time Seen by Provider: 07/29/24 09:27 Mode of Arrival: EMS Source of Information: Patient and EMS Limitations: No Limitations Description of Symptoms (Recalled from ER Triage Doc. by RN): pt brought in by [facility] from [facility] for vomiting, nausea, and diarrhea, states she has been vomiting since thursday night, diarrhea since yesterday, states she has gone twice, states she has been vomiting about once every hour, states she has recently been in the hospital and was dc back to retirement thursday, also reports epigastric abdominal pain that started thursday rating it 05/12, retirement tested her for covid and it was negative per pt History of Present Illness HPI narrative: Please note that above description of symptoms, in this electronic medical record under categorization of recalled from ER triage doctor by RN are reflective of an initial nursing assessment, however, is not reflective of my full history and physical exam that was personally taken and clarified. Consequentially, this preceding description of symptoms, which may include the patient's categorized chief complaint in the EMR, do not reflect my personal clinical impression, and the ultimate description of history of present illness and patient stated complaints should be deferred to this section of the note. Unless stated otherwise or congruent with this section of the note, additional signs, symptoms, or incongruence should be interpreted as inaccurate with my clinical impression. Related Data Home Medications ?Medication ?Instructions ?Recorded ?Confirmed acetaminophen 500 mg tablet 500 mg PO Q6H PRN Pain 11/05/23 07/29/24 diphenhydramine HCl 25 mg capsule 25 mg PO TID PRN Insomnia 11/05/23 07/29/24 (Benadryl) famotidine 20 mg tablet 20 mg PO BID 11/05/23 07/29/24 insulin lispro 100 unit/mL 1 sliding scale dose SQ 11/05/23 07/29/24 subcutaneous pen USEASDIRECTD sevelamer carbonate 800 mg tablet 800 mg PO TID 11/05/23 07/29/24 sucralfate 1 gram tablet 1 g PO BID 11/05/23 07/29/24 pen needle,diabetic dual safty 30 #100 ea 12/29/23 07/29/24 gauge x 3/16 (BD AutoShield Duo Pen Needle) carvedilol 12.5 mg tablet 12.5 mg PO BID 02/23/24 07/29/24 venlafaxine 37.5 mg 37.5 mg PO DAILY 02/23/24 07/29/24 capsule,extended release 24 hr amlodipine 10 mg tablet 10 mg PO .COMPLEX 03/01/24 07/29/24 benzonatate 100 mg capsule 100 mg PO TID PRN cough 05/17/24 07/29/24 bisacodyl 10 mg rectal suppository 10 mg MI DAILY PRN Constipation 05/17/24 07/29/24 calcitonin (salmon) 200 1 spray intranasal (ALT) DAILY 05/17/24 07/29/24 unit/actuation nasal spray epoetin gia 20,000 unit/mL 20,000 unit SQ WEEKLY 05/17/24 07/29/24 injection solution (Procrit) fexofenadine 180 mg tablet 180 mg PO DAILY 05/17/24 07/29/24 (Allergy Relief (fexofenadine)) insulin NPH-regular 70-30 U-100 15 unit SQ QAM 05/17/24 07/29/24 insulin 100 unit/mL subcutaneous pen (Humulin 70/30 U-100 KwikPen) polyethylene glycol 3350 17 17 g PO DAILY 05/17/24 07/29/24 gram/dose oral powder pseudoephedrine HCl 60 mg tablet 60 mg PO Q6H PRN Chest Congestion 05/17/24 07/29/24 (Sudogest) hydrocodone 5 mg-acetaminophen 325 1 tab PO Q4H PRN Pain 06/14/24 07/29/24 mg tablet isosorbide mononitrate 30 mg 30 mg PO DAILY 06/14/24 07/29/24 tablet,extended release 24 hr loperamide 2 mg tablet 2 mg PO Q4H PRN Diarrhea 06/14/24 07/29/24 ondansetron 4 mg disintegrating 4 mg PO TID PRN nausea and vomiting 06/14/24 07/29/24 tablet Previous Rx's ?Medication ?Instructions ?Recorded atorvastatin 40 mg tablet 40 mg PO HS Cholesterol #90 tabs 11/25/21 insulin syr/ndl U100 half maged 0.3 #10 ea 09/17/22 mL 31 gauge x 5/16 (BD Insulin Syringe Ultra-Fine (half unit)) pen needle, diabetic 31 gauge x #100 ea 09/17/22 5/16 (Comfort EZ Pen [place]) blood pressure monitor (Blood #1 ea 02/06/23 Pressure Kit) aspirin 81 mg tablet,delayed 81 mg PO DAILY antiplatelet #90 06/17/23 release tabs promethazine 25 mg tablet 25 mg PO Q6H PRN nausea and 12/02/23 vomiting #20 tabs prasugrel 10 mg tablet (Effient) 10 mg PO DAILY #30 tabs 02/11/24 tizanidine 4 mg tablet 4 mg PO HS PRN MUSCLE SPASMS #90 02/23/24 tabs calcium carbonate 1,200 mg (2 x 600 mg calcium 03/15/24 (1,500 mg)) PO DAILY #180 tabs cholecalciferol (vitamin D3) 50 50 mcg PO DAILY #90 caps 03/15/24 mcg (2,000 unit) capsule gabapentin 300 mg capsule 300 mg PO HS #30 caps 04/21/24 azelastine 137 mcg (0.1 %) nasal 2 spray intranasal BID #30 mL 05/17/24 spray insulin glargine 100 unit/mL (3 85 unit (0.85 mL) SQ HS #15 mL 06/07/24 mL) subcutaneous pen (Basaglar KwikPen U-100 Insulin) Allergies Allergy/AdvReac Type Severity Reaction Status Date / Time Sulfa (Sulfonamide Allergy ITCHING, Verified 07/29/24 09:40 Antibiotics) (SULFA BURNING IN (SULFONAMIDE ANTIBIOTICS)) [facility] Disclaimer: The information contained in this section may have been updated after the patient was seen, as this information can be updated by other users. Medical History (Updated 07/29/24 @ 14:15 by Herb Landis MD) Nausea vomiting and diarrhea Pneumonia Rib pain on right side Left ear pain Tinnitus, left ear Fistula Carpal tunnel syndrome of left wrist Low back pain Diabetes mellitus Abnormal findings on diagnostic imaging of heart and coronary circulation Pericardial effusion Pre-op testing Acute kidney injury Other pericardial effusion (noninflammatory) Allergies Amputation of left lower extremity below knee Amputation toe Ovarian cyst Amputation of left lower extremity below knee Surgical History History of cardiac cath History of amputation of toe H/O left knee surgery Hx of section History of surgery History of cholecystectomy History of esophagogastroduodenoscopy (EGD) History of hip surgery History of left below knee amputation History of tonsillectomy History of carpal tunnel release History of arthroplasty of right knee History of arthroplasty of left hip Family History Mother Coronary artery disease Father Coronary artery disease Sister Coronary artery disease Other Cancer Diabetes Social History Smoking Status: Never smoker smoking status stop date: 20 quit status: considering quitting second hand exposure: No alcohol intake: never substance use type: denies use current occupational status: disabled Travel in the last 8 weeks: None housing: retirement marital status: single number of children: 1 education level: high school diet: diabetic caffeine: No special leslie needs: No do you feel safe at home: Yes Other Medical History Have you received the Flu Vaccine for this season: Yes Have you received the Pneumonia Vaccine: Yes ROS Obtained: Yes All systems reviewed & no additional complaints except as documented Physical Exam General General appearance: alert Head Head exam: atraumatic and normocephalic Eye Eye exam: Present normal appearance, PERRL and EOMI Neck Neck exam: Present normal inspection, full ROM and trachea midline Chest Chest inspection: Present normal inspection and tenderness Respiratory Respiratory exam: Present normal lung sounds bilaterally; Absent respiratory distress, wheezes, stridor, accessory muscle use or prolonged expiratory phase Cardiovascular Cardiovascular exam: Present regular rate, normal rhythm, systolic murmur and other (Pulses equal symmetric in upper and lower extremities) Abdominal Exam Abdominal exam: Present soft; Absent distention, tenderness or pulsatile mass Extremities Exam Extremities exam: Present other (Left lower extremity AKA); Absent edema Neurological Exam Neurological exam: Present alert, oriented X3 and CN II-XII intact; Absent motor sensory deficit Skin Skin exam: Present warm and dry; Absent diaphoresis or erythema Medical Decision Making Medical Records Medical records reviewed: Yes I reviewed the patient's medical records. Screening: Per USPSTF and CDC recommendations, given the prevalence of disease in our region, it is our hospital?s policy to screen for HIV and viral Hepatitis for all patients aged 18 and over and those with ongoing risk factors. Mauri Inquiry Pt receiving controlled substance: No Mauri was queried for this patient: No Vital Signs: 07/29/24 09:24 07/29/24 10:23 07/29/24 11:01 Temperature 98.0 F Temperature Source Oral Pulse Rate 83 77 Pulse Rate [Left Radial] 83 Respiratory Rate 16 18 16 Blood Pressure 126/71 122/71 Blood Pressure [Right Arm] 114/46 L Blood Pressure Mean 84 80 Blood Pressure Mean [Right Arm] 68 Blood Pressure Source [Right Arm] Automatic Cuff Blood Pressure Position [Right Arm] Sitting 02 Sat by Pulse Oximetry 94 L 97 96 Oxygen Delivery Method Room Air 07/29/24 11:31 07/29/24 12:01 07/29/24 13:01 Temperature Temperature Source Pulse Rate 77 79 1 L Pulse Rate [Left Radial] Respiratory Rate 14 16 16 Blood Pressure 143/61 H 169/82 H 179/83 H Blood Pressure [Right Arm] Blood Pressure Mean 79 101 110 Blood Pressure Mean [Right Arm] Blood Pressure Source [Right Arm] Blood Pressure Position [Right Arm] 02 Sat by Pulse Oximetry 95 96 97 Oxygen Delivery Method 07/29/24 13:31 Temperature Temperature Source Pulse Rate 84 Pulse Rate [Left Radial] Respiratory Rate 14 Blood Pressure 197/73 H Blood Pressure [Right Arm] Blood Pressure Mean 101 Blood Pressure Mean [Right Arm] Blood Pressure Source [Right Arm] Blood Pressure Position [Right Arm] 02 Sat by Pulse Oximetry 97 Oxygen Delivery Method Lab Data Lab Results 07/29/24 09:35: WBC 13.4 H, RBC 4.16 L, Hgb 13.4, Hct 39.2, MCV 94.2, MCH 32.2 H, MCHC 34.2, RDW 14.6, Plt Count 272, MPV 9.8, Neut % (Auto) 78.3, Lymph % (Auto) 14.1, [place] % (Auto) 5.8, Eos % (Auto) 0.7, Baso % (Auto) 0.4, Neut # (Auto) 10.5 H, Lymph # (Auto) 1.9, [place] # (Auto) 0.8, Eos # (Auto) 0.1, Baso # (Auto) 0.1, APTT 20.8 L, Sodium 133 L, Potassium 3.6, Chloride 92 L, Carbon Dioxide 27, Anion Gap 17.6 H, BUN 86 H, Creatinine 9.10 H, Estimated Creat Clear 13, Estimated GFR 5 L*, Est GFR ( Amer) 5 L*, Glucose 225 H, Calcium 9.1, Magnesium 2.7 H, Total Bilirubin 0.9, AST 31, ALT 24, Alkaline Phosphatase 182 H, Troponin I 0.02, NT-Pro-B Natriuret Pep 1060 H, Total Protein 7.3, Albumin 4.5, Globulin 2.8, Albumin/Globulin Ratio 1.6, Triglycerides 325 H, Cholesterol 142, LDL Cholesterol Direct 52.08 L, VLDL Cholesterol 65 H, HDL Cholesterol 25 L, Cholesterol/HDL Ratio 5.7 H, Lipase 33 07/29/24 10:28: SARS-CoV-2 (PCR) Not detected, Influenza A Untype (PCR) Not detected, Influenza Type B (PCR) Not detected 07/29/24 : Lactate 1.2 07/29/24 09:35 07/29/24 09:35 Orders (Tests/Meds): ED MEDICATIONS Discontinued Medications Generic Name Dose Route Start Last Admin Trade Name Freq PRN Reason Stop Dose Admin Ondansetron HCl 4 mg 07/29/24 10:07 07/29/24 10:17 Ondansetron 4mg/2ml Vial IV 07/29/24 10:08 4 mg ONCE ONE Administration ORDERS Category Date Time Status XR chest portable Stat Exams 07/29/24 09:45 Completed Complete Blood Count Auto Diff Stat Lab 07/29/24 09:35 Completed Comprehensive Metabolic Panel Stat Lab 07/29/24 09:35 Completed Lactic Acid Stat Lab 07/29/24 Completed Lipase Stat Lab 07/29/24 09:35 Completed Lipid Panel Stat Lab 07/29/24 09:35 Completed Magnesium Stat Lab 07/29/24 09:35 Completed NT Pro Brain Natriuretic Pep. Stat Lab 07/29/24 09:35 Completed PTT [Activated Partial Thrombo Time] Stat Lab 07/29/24 09:35 Completed Rapid PCR Covid and Flu A/B Stat Lab 07/29/24 10:28 Completed Troponin I Q3H Lab 07/29/24 16:00 Ordered Troponin I Stat Lab 07/29/24 09:35 Completed Urinalysis and Microscopic Stat Lab 07/29/24 09:46 Ordered Medical Decision Narrative: 54-year-old female history of hypertension, hyperlipidemia, diabetes resulting in left lower extremity amputation, chronic renal failure and ESRD on Thursday dialysis, recent perioperative cardiac arrest presenting with vomiting. Patient states that she had an operation last week because her left upper extremity AV fistula became clotted. During that operation, she went into cardiac arrest and operation was aborted. Obviously regained pulses, patient was discharged a couple days after that with left subclavian dialysis catheter in place. States his last dialysis she received was Thursday, 3 days prior to this. Has been vomiting since Thursday 4 days prior to this however. Nonbloody, nonbilious. Also having diarrhea. No abdominal, chest, extremity, or pain elsewhere. No shortness of breath. No other associated symptoms. History was obtained via conversation with patient and EMS. On arrival, patient hemodynamically stable, alert, oriented x4, appropriate, GCS 15, moving all extremities spontaneously, pupils equal and reactive to light. Full physical exam performed and significant for chronically appearing female no acute distress. Abdomen soft, nontender, nondistended. Left upper extremity fistula without thrill. Lungs are clear, right upper sternal border systolic ejection murmur. No right lower extremity edema. Differential includes pneumonia, volume overload, viral syndrome, sepsis, metabolic abnormality, endocrinologic abnormality, among others. Patient placed on continuous cardiac monitoring and continuous pulse ox with initial blood pressure 114/46, heart rate 83, saturation 94% on room air. Independent interpretation of EKG shows sinus rhythm 80 bpm with MI 164, QRS 99, QTc 403. Leftward leaning axis. No acute ischemic change. Patient was given Zofran for symptomatic management and correction of underlying abnormalities. Workup independently interpreted and significant for leukocytosis 13.4 neutrophilia. BUN 86, creatinine 9.1 with DUANE and CKD. Troponin 0.02 and negative. BNP elevated at thousand. No baseline to compare with. Lipase negative, viral swab negative. Chest x-ray without acute fluid overload state. See radiology read for full review of final results. Given patient critically ill with need for dialysis, [facility] contacted and case was discussed, graciously excepted under Dr. Florentino for transfer and further management. Remained hemodynamically stable prior to transfer. Cross Roller disclaimer Much of this encounter note is an electronic configuration specialist spoken language to printed text. Electronic configuration specialist of the spoken language may permit errors. Although I have reviewed the note, some errors may still exist. Critical Care Critical Care Time Critical Care Time: Yes (renal) Attestation: On 07/29/24, the high probability of a clinically significant, sudden or life threatening deterioration of the following system(s) required my full and direct attention, intervention and personal management. The time I documented below is in addition to time spent performing reported procedures but includes the following listed in this critical care notation. Total Time Total Critical Care Time: 45
--- NOTE | 2024-07-29 09:45 | XR_ITS ---
FINAL REPORT CLINICAL HISTORY: vomiting, chills, on dialysis COMPARISON: 09/17/2022 FINDINGS: The heart is mildly enlarged. A dialysis catheter is present with the tip in the right atrium. The mediastinum is normal. The lungs are underinflated. There is no focal infiltrate or edema. There are no pleural effusions. There is no pneumothorax. There is no osseous abnormality. IMPRESSION: No acute cardiopulmonary process Reviewed, Interpreted and Dictated by Pro Guillory MD Transcribed by Tracey Meadows Authenticated and [facility]
[2024-07-29 09:53] LABS: Basophils # 0.1 K/mm3 (0-0.2); Basophils % 0.4 % (0.1-2.0); Eosinophils # 0.1 K/mm3 (0.0-0.4); Eosinophils % 0.7 % (0.1-12.0); Hematocrit 39.2 % (37.0-47.0); Hemoglobin 13.4 g/dL (12.2-16.2); Lymphocytes # 1.9 K/mm3 (0.7-4.5); Lymphocytes % 14.1 % (10-50); Mean Corpuscular HGB Conc 34.2 g/dL (31.8-35.4); Mean Corpuscular Hemoglobin 32.2 pg (27.0-31.2); Mean Corpuscular Volume 94.2 fl (81-99); Mean Platelet Volume 9.8 fl (7.4-10.4); Monocytes # 0.8 K/mm3 (0.1-1.0); Monocytes % 5.8 % (1.7-9.3); Neutrophils # 10.5 K/mm3 (1.8-7.8); Neutrophils % 78.3 % (37.0-80.0); Platelet Count 272 K/mm3 (142-424); Red Blood Count 4.16 M/mm3 (4.20-5.40); Red Cell Distribution Width 14.6 % (11.5-17.5); White Blood Count 13.4 K/mm3 (4.8-10.8)
[2024-07-29 10:00] LABS: Albumin Level 4.5 g/dl (3.5-5.0); Chloride 92 mmol/L (98-107); Potassium 3.6 mmoL/L (3.5-5.1); Sodium 133 mmol/L (136-145)
[2024-07-29 10:02] LABS: Cholesterol 142 mg/dl (140-200); Lipase 33 U/L (23-300); Triglycerides 325 mg/dl (30-150); VLDL Cholesterol 65 mg/dL (0-40)
[2024-07-29 10:03] LABS: Alanine Aminotransferase 24 U/L (12-78); Albumin/Globulin Ratio 1.6 (1.1-1.8); Alkaline Phosphatase 182 U/L (38-126); Anion Gap 17.6 mEq/L (5-15); Aspartate Amino Transferase 31 U/L (14-36); Bilirubin,Total 0.9 mg/dl (0.2-1.3); Calcium 9.1 mg/dl (8.4-10.2); Carbon Dioxide 27 mmol/L (22.0-30.0); Chol/HDL Ratio 5.7 (1-3.5); Creatinine Clearance Estimated 13 mL/min (50-200); Estimated Glomerular Filt Rate 5 ml/min (>60); GFR (African American) 5 ML/MIN (>60); Globulin 2.8 g/dL (1.3-3.2); Glucose 225 mg/dl (74-100); HDL Cholesterol 25 mg/dl (40-60); Magnesium 2.7 mg/dl (1.6-2.3); Total Protein,Serum 7.3 g/dl (6.3-8.2)
[2024-07-29 10:13] LABS: Direct LDL Cholesterol 52.08 mg/dL (100-129); NT Pro Brain Natriuretic Pep. 1060 pg/mL (0-125)
[2024-07-29 10:14] LABS: Activated Partial Thrombo Time 20.8 seconds (22.8-30.6)
[2024-07-29 10:16] LABS: Troponin I 0.02 ng/ml (0.00-0.034)
[2024-07-29] MEDS: ONDANSETRON 4MG/2ML VIAL 4 MG IV ×2 (10:17→14:52)
[2024-07-29 10:20] LABS: Blood Urea Nitrogen 86 mg/dl (7-17)
--- NOTE | 2024-07-29 10:27 | PC.NURSE ---
pt aware of need for ua
[2024-07-29 10:34] LABS: Coronavirus 19, PCR Not Detected (NotDetected); Influenza A, PCR Not Detected (NotDetected); Influenza B, PCR Not Detected (NotDetected)
[2024-07-29 10:47] LABS: Lactic Acid 1.2 mmol/L (0.7-2.1)
--- NOTE | 2024-07-29 14:01 | PC.NURSE ---
Called [facility] for an update. They said that it has been sent to the Hospitalist and was waiting for them to respond. SS
--- NOTE | 2024-07-29 14:02 | PC.NURSE ---
dr argueta is speaking to dr sidhu at [place] about pt
--- NOTE | 2024-07-29 14:32 | PC.NURSE ---
Face Sheet Faxed to [facility].
== END 2024-07-29 15:00 | disposition short-term general hospital (02) ==
PROVIDERS: Emergency Provider Emergency Medicine; PCP Family Medicine
DX: N17.9 Acute kidney failure, unspecified (principal); R11.2 Nausea with vomiting, unspecified; R19.7 Diarrhea, unspecified; R10.13 Epigastric pain
CPT/HCPCS: 71045; 80053; 80061; 83605; 83690; 83735; 83880; 84484; 85025; 85730; 87636; 93005; 96374; 96375; 99291; J2405

== ENCOUNTER → 2024-08-16 08:46 | Day surgery (SDC) | payer MEDICARE, MEDICAID, SELFPAY ==
[2024-08-16 14:31] LABS: POC Glucose,Bedside 259 (70-110)
== END | disposition home or self-care (01) ==
LOC: SC.PAINP 01-12 08:47
PROVIDERS: PCP Family Medicine; Visit Provider Nurse Anesthetist, Certified Registered
DX: R73.9 Hyperglycemia, unspecified (principal)
CPT/HCPCS: 82962

== ENCOUNTER 2024-08-25 13:28 | Emergency (ER) | payer MEDICARE, MEDICAID, SELFPAY ==
[2024-08-25 13:38] LABS: Coronavirus 19, PCR Not Detected (NotDetected); Influenza B, PCR Not Detected (NotDetected)
[2024-08-25 13:53] VITALS: BP 143/67; PULSE 86; RESP 18; TEMP 37.1; O2SAT 97; BMI 40.5
--- NOTE | 2024-08-25 14:03 | HMH.EDGENADL ---
Discharge Plan Disposition Patient Disposition: Home, Self-Care Condition: Good Prescriptions Prescriptions: New ondansetron 4 mg tablet,disintegrating 4 mg PO Q8H PRN (Reason: nausea and vomiting) 5 Days Qty: 10 0RF oseltamivir 75 mg capsule 75 mg PO BID 5 Days Qty: 10 0RF No Action aspirin 81 mg tablet,delayed release (DR/EC) 81 mg PO DAILY Qty: 90 0RF (DME) BD AutoShield Duo Pen Needle 30 gauge x 3/16 needle See Rx Instructions .ROUTE .MEDSUPPLY Qty: 100 Rx Instructions: As directed venlafaxine 37.5 mg capsule,extended release 24hr 37.5 mg PO DAILY carvedilol 12.5 mg tablet 12.5 mg PO BID amlodipine 10 mg tablet 10 mg PO .COMPLEX Rx Instructions: 10 mg orally daily on T, , Sat, Thu; fexofenadine [Allergy Relief (fexofenadine)] 180 mg tablet 180 mg PO DAILY Procrit 20,000 unit/mL solution 20,000 unit SQ WEEKLY Patient Comments: given at dialysis calcitonin (salmon) 200 unit/actuation spray,non-aerosol 1 spray intranasal (ALT) DAILY benzonatate 100 mg capsule 100 mg PO TID PRN (Reason: cough) bisacodyl 10 mg suppository 10 mg IA DAILY PRN (Reason: Constipation) polyethylene glycol 3350 17 gram/dose powder 17 g PO DAILY pseudoephedrine HCl [Sudogest] 60 mg tablet 60 mg PO Q6H PRN (Reason: Chest Congestion) Humulin 70/30 U-100 KwikPen 100 unit/mL (70-30) insulin pen 15 unit SQ QAM azelastine 137 mcg (0.1 %) spray,non-aerosol 2 spray intranasal BID Qty: 30 3RF Rx Instructions: administer into each nostril isosorbide mononitrate 30 mg tablet extended release 24 hr 30 mg PO DAILY ondansetron 4 mg tablet,disintegrating 4 mg PO TID PRN (Reason: nausea and vomiting) atorvastatin 40 mg tablet 40 mg PO HS Qty: 90 3RF (DME) pen needle, diabetic [Comfort EZ Pen [place]] 31 gauge x 5/16 needle See Rx Instructions .Route Qty: 100 2RF Rx Instructions: As directed (DME) BD Insulin Syringe (half unit) 0.3 mL 31 gauge x 5/16 syringe See Rx Instructions .Route Qty: 10 2RF Rx Instructions: As directed (DME) blood pressure monitor [Blood Pressure Kit] Kit See Rx Instructions .Route Qty: 1 0RF Rx Instructions: As directed acetaminophen 500 mg tablet 500 mg PO Q6H PRN (Reason: Pain) diphenhydramine HCl [Benadryl] 25 mg capsule 25 mg PO TID PRN (Reason: Insomnia) sucralfate 1 gram tablet 1 g PO BID sevelamer carbonate 800 mg tablet 800 mg PO TID Rx Instructions: must administer with a meal/food(crushed in pudding) famotidine 20 mg tablet 20 mg PO BID insulin lispro 100 unit/mL insulin pen 1 sliding scale dose SQ USEASDIRECTD tizanidine 4 mg tablet 4 mg PO HS PRN (Reason: MUSCLE SPASMS) Qty: 90 0RF calcium carbonate 600 mg calcium (1,500 mg) tablet 1,200 mg PO DAILY Qty: 180 3RF cholecalciferol (vitamin D3) 50 mcg (2,000 unit) capsule 50 mcg PO DAILY Qty: 90 3RF gabapentin 300 mg capsule 300 mg PO HS Qty: 30 5RF insulin glargine [Basaglar KwikPen U-100 Insulin] 100 unit/mL (3 mL) insulin pen 85 unit SQ HS Qty: 15 11RF loperamide 2 mg tablet 2 mg PO Q4H PRN (Reason: Diarrhea) oxycodone 5 mg tablet 2.5 mg PO TID PRN (Reason: pain) Qty: 10 0RF prasugrel [Effient] 10 mg Tablet 10 mg PO DAILY Qty: 30 3RF promethazine 25 mg tablet 25 mg PO Q6H PRN (Reason: nausea and vomiting) Qty: 20 0RF Referrals Follow up/Referrals: Wally Yoo MD [Primary Care Provider] - See instructions Activity Restrictions/Add. Instructions Additional Instructions/Restrictions: As we discussed, your workup showed that you have the flu, your electrolytes and other labs were overall reassuring, however, make sure you are staying hydrated, nausea medication to try to help you stay hydrated. We discussed the possibility of flu medication, however, given that you have had symptoms for multiple days now, in addition to you being on dialysis, the medication is not safe to give you given that you are on dialysis. Please continue to receive dialysis. Please return with any new or worsening symptoms Clinical Impressions Clinical Impression: Influenza Instructions Patient Instructions: DI for Diarrhea and Traveler's Diarrhea -- Adult, DI for Diarrhea and Traveler's Diarrhea -- Child, DI for Nausea -- Adult, DI for Nausea -- Child Print Language Print Language: Italian Discharge ED Provider: Meño Bangura General Adult HPI General Chief complaint: Nausea/Vomiting/Diarrhea Stated complaint: N/V Time Seen by Provider: 08/25/24 14:03 Mode of Arrival: EMS Source of Information: Patient and EMS Limitations: No Limitations Description of Symptoms (Recalled from ER Triage Doc. by RN): pt c/o N/V/D ongoing since yesterday. pt reports she has had congestion, a nonproductive cough, chills, and a MARVIN ongoing since 08/22/24. pt reports her MARVIN is 9/10, sharp in nature, photophobic and sensitive to sound. pt states she has a hx of migraines and this feels the same. pt received 4mg of IV zofran in route. Pt lives at [facility], there are multiple flu A cases there at this time. History of Present Illness HPI narrative: Patient presents for nausea, with no associated reported abdominal pain, headache, chest pain, shortness of breath, obstipation, syncope, presyncope, hematemesis, hemoptysis, leg pain, leg swelling, changes in medications or new medications. She does report sick contacts with influenza. She has been able to tolerate p.o. intake. She reports she is on dialysis with last appointment yesterday. No exacerbating or alleviating factors. Please note that above description of symptoms, in this electronic medical record under categorization of recalled from ER triage doctor by RN are reflective of an initial nursing assessment, however, is not reflective of my full history and physical exam that was personally taken and clarified. Consequentially, this preceding description of symptoms, which may include the patient's categorized chief complaint in the EMR, do not reflect my personal clinical impression, and the ultimate description of history of present illness and patient stated complaints should be deferred to this section of the note. Unless stated otherwise or congruent with this section of the note, additional signs, symptoms, or incongruence should be interpreted as inaccurate with my clinical impression. Related Data Home Medications ?Medication ?Instructions ?Recorded ?Confirmed acetaminophen 500 mg tablet 500 mg PO Q6H PRN Pain 11/05/23 08/03/24 diphenhydramine HCl 25 mg capsule 25 mg PO TID PRN Insomnia 11/05/23 08/03/24 (Benadryl) famotidine 20 mg tablet 20 mg PO BID 11/05/23 08/03/24 insulin lispro 100 unit/mL 1 sliding scale dose SQ 11/05/23 08/03/24 subcutaneous pen USEASDIRECTD sevelamer carbonate 800 mg tablet 800 mg PO TID 11/05/23 08/03/24 sucralfate 1 gram tablet 1 g PO BID 11/05/23 08/03/24 pen needle,diabetic dual safty 30 #100 ea 12/29/23 08/03/24 gauge x 3/16 (BD AutoShield Duo Pen Needle) carvedilol 12.5 mg tablet 12.5 mg PO BID 02/23/24 08/03/24 venlafaxine 37.5 mg 37.5 mg PO DAILY 02/23/24 08/03/24 capsule,extended release 24 hr amlodipine 10 mg tablet 10 mg PO .COMPLEX 03/01/24 08/03/24 benzonatate 100 mg capsule 100 mg PO TID PRN cough 05/17/24 08/03/24 bisacodyl 10 mg rectal suppository 10 mg IA DAILY PRN Constipation 05/17/24 08/03/24 calcitonin (salmon) 200 1 spray intranasal (ALT) DAILY 05/17/24 08/03/24 unit/actuation nasal spray epoetin gia 20,000 unit/mL 20,000 unit SQ WEEKLY 05/17/24 08/03/24 injection solution (Procrit) fexofenadine 180 mg tablet 180 mg PO DAILY 05/17/24 08/03/24 (Allergy Relief (fexofenadine)) insulin NPH-regular 70-30 U-100 15 unit SQ QAM 05/17/24 08/03/24 insulin 100 unit/mL subcutaneous pen (Humulin 70/30 U-100 KwikPen) polyethylene glycol 3350 17 17 g PO DAILY 05/17/24 08/03/24 gram/dose oral powder pseudoephedrine HCl 60 mg tablet 60 mg PO Q6H PRN Chest Congestion 05/17/24 08/03/24 (Sudogest) isosorbide mononitrate 30 mg 30 mg PO DAILY 06/14/24 08/03/24 tablet,extended release 24 hr loperamide 2 mg tablet 2 mg PO Q4H PRN Diarrhea 06/14/24 08/03/24 ondansetron 4 mg disintegrating 4 mg PO TID PRN nausea and vomiting 06/14/24 08/03/24 tablet Previous Rx's ?Medication ?Instructions ?Recorded atorvastatin 40 mg tablet 40 mg PO HS Cholesterol #90 tabs 11/25/21 insulin syr/ndl U100 half maged 0.3 #10 ea 09/17/22 mL 31 gauge x 5/16 (BD Insulin Syringe Ultra-Fine (half unit)) pen needle, diabetic 31 gauge x #100 ea 09/17/22 516 (Comfort EZ Pen [place]) blood pressure monitor (Blood #1 ea 02/06/23 Pressure Kit) aspirin 81 mg tablet,delayed 81 mg PO DAILY antiplatelet #90 06/17/23 release tabs promethazine 25 mg tablet 25 mg PO Q6H PRN nausea and 12/02/23 vomiting #20 tabs prasugrel 10 mg tablet (Effient) 10 mg PO DAILY #30 tabs 02/11/24 tizanidine 4 mg tablet 4 mg PO HS PRN MUSCLE SPASMS #90 02/23/24 tabs calcium carbonate 1,200 mg (2 x 600 mg calcium 03/15/24 (1,500 mg)) PO DAILY #180 tabs cholecalciferol (vitamin D3) 50 50 mcg PO DAILY #90 caps 03/15/24 mcg (2,000 unit) capsule gabapentin 300 mg capsule 300 mg PO HS #30 caps 04/21/24 azelastine 137 mcg (0.1 %) nasal 2 spray intranasal BID #30 mL 05/17/24 spray insulin glargine 100 unit/mL (3 85 unit (0.85 mL) SQ HS #15 mL 06/07/24 mL) subcutaneous pen (Basaglar KwikPen U-100 Insulin) oxycodone 5 mg tablet 2.5 mg (1/2 x 5 mg) PO TID PRN 08/01/24 pain #10 tabs ondansetron 4 mg disintegrating 4 mg PO Q8H PRN nausea and 08/25/24 tablet vomiting 5 days #10 tabs oseltamivir 75 mg capsule 75 mg PO BID 5 days #10 caps 08/25/24 Allergies Allergy/AdvReac Type Severity Reaction Status Date / Time Sulfa (Sulfonamide Allergy ITCHING, Verified 08/25/24 14:03 Antibiotics) (SULFA BURNING IN (SULFONAMIDE ANTIBIOTICS)) EYES acetaminophen (From Tylox) AdvReac Nausea Verified 08/25/24 14:03 oxycodone (From Tylox) AdvReac Nausea Verified 08/25/24 14:03 PFSH PFS Disclaimer: The information contained in this section may have been updated after the patient was seen, as this information can be updated by other users. Medical History Cardiac arrest Pneumonia Rib pain on right side Left ear pain Tinnitus, left ear Fistula Carpal tunnel syndrome of left wrist Low back pain Diabetes mellitus Abnormal findings on diagnostic imaging of heart and coronary circulation Pericardial effusion Pre-op testing Acute kidney injury Other pericardial effusion (noninflammatory) Allergies Amputation of left lower extremity below knee Amputation toe Ovarian cyst Amputation of left lower extremity below knee Surgical History History of cardiac cath History of amputation of toe H/O left knee surgery Hx of section History of surgery History of cholecystectomy History of esophagogastroduodenoscopy (EGD) History of hip surgery History of left below knee amputation History of tonsillectomy History of carpal tunnel release History of arthroplasty of right knee History of arthroplasty of left hip Family History Mother Coronary artery disease Father Coronary artery disease Sister Coronary artery disease Other Cancer Diabetes Social History Smoking Status: Current every day smoker tobacco type: cigarettes packs per day: 1 smoking status stop date: quit status: considering quitting second hand exposure: No alcohol intake: never substance use type: denies use current occupational status: disabled Travel in the last 8 weeks: None housing: snf marital status: single number of children: 1 education level: high school diet: diabetic caffeine: No special leslie needs: No do you feel safe at home: Yes Have you lived/traveled outside [place] in past 30 days?: No Contact w/someone who lives/traveled outside [place] past 30 days?: No Exposure to someone with infectious disease in past 14 days?: No Do you have a fever (greater than 100.4 F or 38 C)?: No Have you tested positive for COVID-19: No Exposed to someone with COVID-19 in past 14 days?: No Do you have a sore throat?: No Do you have a cough?: No Do you have any weakness?: No Do you have any diarrhea?: No Are you experiencing any unusual bleeding?: No Do you have any muscle aches/pain?: No Do you have any abdominal pain?: No Are you experiencing loss of taste or smell?: No Other Medical History Have you received the Flu Vaccine for this season: Yes Have you received the Pneumonia Vaccine: Yes ROS Obtained: Yes other As per HPI Physical Exam General General appearance: alert and in no apparent distress Head Head exam: atraumatic and normocephalic Eye Eye exam: Present normal appearance Neck Neck exam: Present normal inspection Chest Chest inspection: Present normal inspection and symmetric chest wall rise Respiratory Respiratory exam: Present normal lung sounds bilaterally; Absent respiratory distress Cardiovascular Cardiovascular exam: Present regular rate and normal rhythm Abdominal Exam Abdominal exam: Present soft Neurological Exam Neurological exam: Present alert and oriented X3 Psychiatric Psychiatric exam: Present normal affect and normal mood Skin Skin exam: Present warm and dry Medical Decision Making Medical Records Medical records reviewed: Yes I reviewed the patient's medical records. Screening: Per USPSTF and CDC recommendations, given the prevalence of disease in our region, it is our hospital?s policy to screen for HIV and viral Hepatitis for all patients aged 18 and over and those with ongoing risk factors. Mauri Inquiry Pt receiving controlled substance: No Vital Signs: 08/25/24 13:53 08/25/24 16:45 Temperature 98.7 F 98.7 F Temperature Source Oral Pulse Rate 88 Pulse Rate [Left] 86 Respiratory Rate 18 18 Blood Pressure 134/76 Blood Pressure [Right Arm] 143/67 H Blood Pressure Mean [Right Arm] 92 Blood Pressure Source [Right Arm] Automatic Cuff Blood Pressure Position [Right Arm] Sitting 02 Sat by Pulse Oximetry 97 Oxygen Delivery Method Room Air Room Air Lab Data Lab Results 08/25/24 13:18: WBC 8.6, RBC 3.92 L, Hgb 12.2, Hct 37.3, MCV 95.2, MCH 31.1, MCHC 32.7, RDW 13.9, Plt Count 281, MPV 10.0, Neut % (Auto) 72.8, Lymph % (Auto) 16.6, Hunt % (Auto) 8.1, Eos % (Auto) 0.8, Baso % (Auto) 0.5, Neut # (Auto) 6.2, Lymph # (Auto) 1.4, Hunt # (Auto) 0.7, Eos # (Auto) 0.1, Baso # (Auto) 0.0, Sodium 139, Potassium 4.3, Chloride 93 L, Carbon Dioxide 33 H, Anion Gap 17.3 H, BUN 32 H, Creatinine 5.40 H, Estimated Creat Clear 21, Estimated GFR 8 L*, Est GFR ( Amer) 10 L*, Glucose 174 H, Calcium 9.3, Magnesium 1.8, Total Bilirubin 0.5, AST 52 H, ALT 61, Alkaline Phosphatase 275 H, Total Creatine Kinase 78, NT-Pro-B Natriuret Pep 3150 H, Total Protein 6.8, Albumin 4.2, Globulin 2.6, Albumin/Globulin Ratio 1.6, Lipase 27 08/25/24 13:29: SARS-CoV-2 (PCR) Not detected, Influenza A Untype (PCR) Detected A, Influenza Type B (PCR) Not detected 08/25/24 13:48: HCV Ab ANANDA w/Rflx PCR Qn Negative, HIV Ag/Ab Combo Qual Negative 08/25/24 15:05: VBG pH 7.46 H, VBG pCO2 39.3, VBG pO2 44.3 H, VBG HCO3 27.3, VBG Total CO2 28.5 H, VBG O2 Saturation 80.9 H, VBG Base Excess 3.5 H, VBG Lactic Acid 2.7 H 08/25/24 13:18 08/25/24 13:18 Orders (Tests/Meds): ED MEDICATIONS Discontinued Medications Generic Name Dose Route Start Last Admin Trade Name Freq PRN Reason Stop Dose Admin Belladonna Alkaloids 60 ml 08/25/24 15:00 08/25/24 15:15 Belladonna Alkaloids 60 Ml Ml PO 08/25/24 15:01 60 ml ONCE ONE Administration Ondansetron HCl 4 mg 08/25/24 15:00 08/25/24 15:06 Ondansetron 4mg/2ml Vial IV 08/25/24 15:01 Not Given ONCE ONE Promethazine HCl 12.5 mg 08/25/24 14:24 08/25/24 14:26 Promethazine Hcl 25mg/Ml 1ml Vial IV 08/25/24 14:25 12.5 mg ONCE ONE Administration Sodium Chloride 25 ml 08/25/24 14:24 08/25/24 14:25 Sodium Chloride 0.9% 25ml Bag IV 08/25/24 14:25 25 ml ONCE ONE Administration ORDERS Category Date Time Status CT abdomen pelvis wo con Stat Cat Scan 08/25/24 14:[address] chest wo con Stat Cat Scan 08/25/24 14:11 Completed BNP [NT Pro Brain Natriuretic Pep.] Stat Lab 08/25/24 13:18 Completed CK [Creatine Kinase] Stat Lab 08/25/24 13:18 Completed CMP [Comprehensive Metabolic Panel] Stat Lab 08/25/24 13:18 Completed Complete Blood Count Auto Diff Stat Lab 08/25/24 13:18 Completed HIV Combo Stat Lab 08/25/24 13:48 Completed Hepatitis C Ab Qual. W/ RFX Stat Lab 08/25/24 13:48 Completed Lipase Stat Lab 08/25/24 13:18 Completed MAG [Magnesium] Stat Lab 08/25/24 13:18 Completed Rapid PCR Covid and Flu A/B Stat Lab 08/25/24 13:29 Completed VBG [Venous Blood Gas] Stat RT 08/25/24 15:05 Completed Medical Decision Narrative: Patient with history and exam per above presenting for evaluation of nausea, generalized weakness. Patient was reported to have headache, other associated symptoms that, on my history, patient denies Diagnoses considered include influenza, enteritis, electrolyte abnormality, will initiate broad workup given multiple comorbidities per chart review and per patient history ED workup and treatment included: ED MEDICATIONS Discontinued Medications Generic Name Dose Route Start Last Admin Trade Name Freq PRN Reason Stop Dose Admin Belladonna Alkaloids 60 ml 08/25/24 15:00 08/25/24 15:15 Belladonna Alkaloids 60 Ml Ml PO 08/25/24 15:01 60 ml ONCE ONE Administration Ondansetron HCl 4 mg 08/25/24 15:00 08/25/24 15:06 Ondansetron 4mg/2ml Vial IV 08/25/24 15:01 Not Given ONCE ONE Promethazine HCl 12.5 mg 08/25/24 14:24 08/25/24 14:26 Promethazine Hcl 25mg/Ml 1ml Vial IV 08/25/24 14:25 12.5 mg ONCE ONE Administration Sodium Chloride 25 ml 08/25/24 14:24 08/25/24 14:25 Sodium Chloride 0.9% 25ml Bag IV 08/25/24 14:25 25 ml ONCE ONE Administration ORDERS Category Date Time Status CT abdomen pelvis wo con Stat Cat Scan 08/25/24 14:[address] chest wo con Stat Cat Scan 08/25/24 14:11 Completed BNP [NT Pro Brain Natriuretic Pep.] Stat Lab 08/25/24 13:18 Completed CK [Creatine Kinase] Stat Lab 08/25/24 13:18 Completed CMP [Comprehensive Metabolic Panel] Stat Lab 08/25/24 13:18 Completed Complete Blood Count Auto Diff Stat Lab 08/25/24 13:18 Completed HIV Combo Stat Lab 08/25/24 13:48 Completed Hepatitis C Ab Qual. W/ RFX Stat Lab 08/25/24 13:48 Completed Lipase Stat Lab 08/25/24 13:18 Completed MAG [Magnesium] Stat Lab 08/25/24 13:18 Completed Rapid PCR Covid and Flu A/B Stat Lab 08/25/24 13:29 Completed VBG [Venous Blood Gas] Stat RT 08/25/24 15:05 Completed Labs were independently interpreted by me, significant for influenza positive, no leukocytosis, creatinine elevated in the setting of known history of CKD on dialysis, potassium within normal limits Imaging was independently visualized and interpreted by me, significant for no acute findings Please refer to radiology report for full details. My clinical impression at this time is most consistent with influenza I discussed my clinical impression with patient and answered all questions. At this time, the evidence for any other entities in the differential is insufficient to warrant any further testing or ED observation. This was explained to the patient. The patient was advised that persistent or worsening symptoms require further evaluation. Critical Care Critical Care Time Critical Care Time: No
--- NOTE | 2024-08-25 14:11 | CT_ITS ---
PROCEDURE INFORMATION: Exam: CT Chest Without Contrast; Diagnostic Exam date and time: 08/25/2024 2:25 PM Age: 54 years old Clinical indication: Shortness of breath; Additional info: Bilateral flank pain, n/v/soa TECHNIQUE: Imaging protocol: Diagnostic computed tomography of the chest without contrast. Radiation optimization: All CT scans at this facility use at least one of these dose optimization techniques: automated exposure control; mA and/or kV adjustment per patient size (includes targeted exams where dose is matched to clinical indication); or iterative reconstruction. COMPARISON: CT ANGIO CHEST PE PROTOCOL 05/30/2024 12:24 AM FINDINGS: Limitations: Study is technically limited due to motion artifact. Tubes, catheters and devices: There is a left-sided dialysis catheter terminating within the right atrium, unchanged. Lungs: Scattered linear atelectasis right mid lung zone and both lung bases otherwise lung butler are clear. Pleural spaces: Unremarkable. No pneumothorax. No pleural effusion. Heart: Heart is not significantly enlarged. Diffuse calcification of the coronary arteries. No significant pericardial effusion Lymph nodes: Scattered small mediastinal lymph nodes likely benign by size criteria. Vasculature: Unremarkable. No aortic aneurysm. Diaphragm: Moderate elevation right hemidiaphragm unchanged. Intraperitoneal space: 7 cm fat containing epigastric ventral wall hernia along the midline redemonstrated.. Bones/joints: Mild-moderate multilevel degenerative changes thoracic spine. No acute bony abnormalities. Soft tissues: Unremarkable. IMPRESSION: 1. No acute findings within the chest. 2. Chronic elevation right hemidiaphragm with scattered minor atelectatic changes both lung butler. 3. Diffuse calcification of the coronary arteries.
[2024-08-25 14:12] LABS: Albumin Level 4.2 g/dl (3.5-5.0); Chloride 93 mmol/L (98-107); Potassium 4.3 mmoL/L (3.5-5.1); Sodium 139 mmol/L (136-145)
--- NOTE | 2024-08-25 14:12 | CT_ITS ---
PROCEDURE INFORMATION: Exam: CT Abdomen And Pelvis Without Contrast Exam date and time: 08/25/2024 2:25 PM Age: 54 years old Clinical indication: Nausea; Additional info: Bilateral flank pain/n/v TECHNIQUE: Imaging protocol: Computed tomography of the abdomen and pelvis without contrast. Radiation optimization: All CT scans at this facility use at least one of these dose optimization techniques: automated exposure control; mA and/or kV adjustment per patient size (includes targeted exams where dose is matched to clinical indication); or iterative reconstruction. COMPARISON: 1. CT ABDOMEN PELVIS W CON 05/30/2024 12:[address] ABDOMEN PELVIS WO CON 05/16/2021 12:10 PM. FINDINGS: Limitations: Study is technically limited due to motion artifact. Lungs: Minor atelectatic changes at the lung bases. Liver: Normal. No mass. Gallbladder and biliary ducts: Gallbladder has been removed. Bile ducts are not appreciably dilated. Pancreas: Normal. No ductal dilation. Spleen: Normal. No splenomegaly. Adrenal glands: 2.5 cm benign myelolipoma right adrenal gland a smaller myelolipoma left adrenal gland, unchanged. Kidneys and ureters: Normal. No hydronephrosis. Stomach and bowel: There is submucosal fat deposition within the right colonic wall likely chronic in incidental. Few scattered diverticuli distal large bowel without evidence of acute diverticulitis. Appendix: No evidence of appendicitis. Intraperitoneal space: Unremarkable. No free air. No significant fluid collection. Vasculature: Scattered atherosclerotic changes of the abdominal aorta and iliac vessels. No aortic aneurysm. Scattered atherosclerotic changes of the abdominal aorta and iliac vessels. No aortic aneurysm. Lymph nodes: Multiple nonenlarged retroperitoneal lymph nodes, stable likely benign. Urinary bladder: Mild diffuse bladder wall thickening developed from previous exam raising possibility of acute cystitis. Reproductive: There is an IUD situated centrally within the uterus unchanged. 4.3 x 3.6 cm circumscribed solid-appearing right adnexal mass stable in size from 2020 favoring benign etiology. Bones/joints: There is a cephalomedullary nail left hip joint partially visualized. No acute bony abnormalities. Soft tissues: Moderate size fat containing epigastric ventral wall hernia unchanged.. IMPRESSION: 1. Interval development of mild bladder wall thickening. Please correlate for possible cystitis. 2. 4 cm solid-appearing right ovarian mass stable in size from 2020 favoring benign etiology. Recommend nonemergent pelvic ultrasound exam for further assessment. 3. Stable small benign myelolipoma is the adrenal glands. 4. Additional nonemergent findings as above.
[2024-08-25 14:15] LABS: Alanine Aminotransferase 61 U/L (12-78); Albumin/Globulin Ratio 1.6 (1.1-1.8); Alkaline Phosphatase 275 U/L (38-126); Anion Gap 17.3 mEq/L (5-15); Aspartate Amino Transferase 52 U/L (14-36); Bilirubin,Total 0.5 mg/dl (0.2-1.3); Blood Urea Nitrogen 32 mg/dl (7-17); Calcium 9.3 mg/dl (8.4-10.2); Carbon Dioxide 33 mmol/L (22.0-30.0); Creatinine Clearance Estimated 21 mL/min (50-200); Estimated Glomerular Filt Rate 8 ml/min (>60); GFR (African American) 10 ML/MIN (>60); Globulin 2.6 g/dL (1.3-3.2); Glucose 174 mg/dl (74-100); Total Protein,Serum 6.8 g/dl (6.3-8.2)
[2024-08-25] MEDS: SODIUM CHLORIDE 0.9% 25ML BAG 25 ML IV (14:25)
[2024-08-25] MEDS: PROMETHAZINE HCL 25MG/ML 1ML VIAL 12.5 MG IV (14:26)
[2024-08-25 14:28] LABS: Basophils % 0.5 % (0.1-2.0); Eosinophils # 0.1 K/mm3 (0.0-0.4); Eosinophils % 0.8 % (0.1-12.0); Hematocrit 37.3 % (37.0-47.0); Hemoglobin 12.2 g/dL (12.2-16.2); Lymphocytes # 1.4 K/mm3 (0.7-4.5); Lymphocytes % 16.6 % (10-50); Mean Corpuscular HGB Conc 32.7 g/dL (31.8-35.4); Mean Corpuscular Hemoglobin 31.1 pg (27.0-31.2); Mean Corpuscular Volume 95.2 fl (81-99); Monocytes # 0.7 K/mm3 (0.1-1.0); Monocytes % 8.1 % (1.7-9.3); Neutrophils # 6.2 K/mm3 (1.8-7.8); Neutrophils % 72.8 % (37.0-80.0); Platelet Count 281 K/mm3 (142-424); Red Blood Count 3.92 M/mm3 (4.20-5.40); Red Cell Distribution Width 13.9 % (11.5-17.5); White Blood Count 8.6 K/mm3 (4.8-10.8)
[2024-08-25 14:29] LABS: Influenza A, PCR Detected (NotDetected)
[2024-08-25 14:36] LABS: Creatine Kinase 78 U/L (30-135); Lipase 27 U/L (23-300); Magnesium 1.8 mg/dl (1.6-2.3)
[2024-08-25 14:46] LABS: NT Pro Brain Natriuretic Pep. 3150 pg/mL (0-125)
[2024-08-25 15:07] LABS: VBG Base Excess 3.5 mmol/L (-2.4-2.3); VBG HCO3 27.3 mmol/L (23-30); VBG Oxygen Saturation 80.9 % (50-70); VBG PCO2 39.3 mmol/L (35-51); VBG PH 7.46 mmol/L (7.31-7.41); VBG PO2 44.3 mmol/L (28-40); VBG Total CO2 28.5 mmol/L (23-27)
[2024-08-25 15:09] LABS: Lactate Venous 2.7 mmol/L (0.4-2.0)
[2024-08-25] MEDS: BELLADONNA ALKALOIDS 60 ML ML PO (15:15)
[2024-08-25 15:29] LABS: Hepatitis C Ab Qual. W/ RFX NEGATIVE (Negative)
[2024-08-25 16:45] VITALS: BP 134/76; PULSE 88; RESP 18; TEMP 37.1; O2SAT 99
[2024-08-25 16:47] LABS: HIV Combo NEGATIVE (Negative)
[2024-08-25 19:09] LABS: Reflex Lactic Add Lactic Reflex
== END 2024-08-25 16:46 | disposition home or self-care (01) ==
PROVIDERS: Emergency Provider Emergency Medicine; PCP Family Medicine
DX: J11.1 Influenza due to unidentified influenza virus with other respiratory manifestations (principal); R11.2 Nausea with vomiting, unspecified; R19.7 Diarrhea, unspecified; R09.81 Nasal congestion; R05.9 Cough, unspecified; R68.83 Chills (without fever); R51.9 Headache, unspecified; H53.149 Visual discomfort, unspecified; F40.298 Other specified phobia; F17.210 Nicotine dependence, cigarettes, uncomplicated; Z99.2 Dependence on renal dialysis; Z20.828 Contact with and (suspected) exposure to other viral communicable diseases
CPT/HCPCS: 71250; 74176; 80053; 82550; 82803; 83690; 83735; 83880; 85025; 86803; 87389; 87636; 96374; 96375; 99284; J2550

== ENCOUNTER 2024-08-30 08:21 | Day surgery (SDC) | payer MEDICARE, MEDICAID, SELFPAY ==
[2024-08-30 08:48] VITALS: BP 143/68; PULSE 69; RESP 18; TEMP 37.2; O2SAT 93; BMI 40.5
[2024-08-30 08:53] LABS: POC Glucose,Bedside 159 (70-110)
--- NOTE | 2024-08-30 09:26 | P.PCN_ITS ---
Procedure Date: 08/30/24 Time: 09:10 Anesthesiologist:: Escobar Tolbert CRNA Complications:: None Pre-procedure Diagnosis:: Bilateral sacroiliitis Post-procedure Diagnosis:: Same Indications for Procedure:: Patient is a very pleasant 54-year-old female comes to clinic today for bilateral sacroiliac joint injection of cortisone and local anesthetic. Patient describes low lumbar back pain off midline bilaterally. Bilateral posterior hip pain. Difficulty transitioning from sitting to standing. She rates her pain 7/10. Procedure Details:: Procedure: Bilateral sacroiliac joint injections under fluoroscopy Informed consent was obtained and the risks and benefits of the procedure were explained to the patient.~ The patient was taken to the procedure room and noninvasive monitors were placed including a noninvasive blood pressure cuff and pulse oximeter.~ The patient was placed prone on the procedure table. Both hips were cleansed using Betadine as a cleansing solution. C-arm fluoroscopy was used to view the right sacroiliac joint.~ The skin and subcutaneous tissues were anesthetized using lidocaine 1.5% and a 25-gauge needle.~ After this, a 22-gauge spinal needle was inserted under fluoroscopic guidance into the inferior aspect of the right sacroiliac joint.~ Omnipaque dye was injected and good spread was seen throughout the joint.~ After this, approximately 5 mL of bupivacaine, 0.25% and Depo-Medrol, 40 mg was incrementally injected into the right sacroiliac joint. We then moved to the left sacroiliac joint.~ The skin and subcutaneous tissues were anesthetized using lidocaine 1.5% and a 25-gauge needle.~ After this, a 22- gauge spinal needle was inserted under fluoroscopic guidance into the inferior aspect of the left sacroiliac joint.~ Omnipaque dye was injected and good spread was seen throughout the joint. After this, approximately 5 mL of bupivacaine, 0.25% and Depo-Medrol, 40 mg was incrementally injected into the left sacroiliac joint.~ The patient tolerated the procedure well with no complications. The patient was observed in the Pain Clinic and then was discharged home neurologically intact. Plan and Disposition:: Patient was discharged without incident.
[2024-08-30 09:36] VITALS: BP 122/56; PULSE 68; RESP 18; O2SAT 91
[2024-08-30] MEDS: BUPIVACAINE 0.25% 10ML INJ 25 MG IJ (10:04)
[2024-08-30] MEDS: methylPREDNISolone ACETATE 80MG/ML VIAL 80 MG (10:05)
[2024-08-30] MEDS: LIDOCAINE 1% 5ML PF VIAL 5 ML (10:05)
== END 2024-08-30 09:36 | disposition home or self-care (01) ==
PROVIDERS: PCP Family Medicine; Visit Provider Nurse Anesthetist, Certified Registered
DX: M46.1 Sacroiliitis, not elsewhere classified (principal)
CPT/HCPCS: 27096; 82962; G0260; J1010

== ENCOUNTER 2024-09-15 10:10 | Outpatient (POV) | payer MEDICARE, MEDICAID, SELFPAY ==
--- NOTE | 2024-09-15 10:13 | EXP.PAIN.SOA ---
[facility] Disclaimer: The information contained in this section may have been updated after the patient was seen, as this information can be updated by other users. Medical History (Updated 09/15/24 @ 10:23 by Nichol Robledo APRN) Pre-op evaluation Influenza Cardiac arrest Pneumonia Rib pain on right side Left ear pain Tinnitus, left ear Fistula Carpal tunnel syndrome of left wrist Low back pain Diabetes mellitus Abnormal findings on diagnostic imaging of heart and coronary circulation Pericardial effusion Pre-op testing Acute kidney injury Other pericardial effusion (noninflammatory) Allergies Amputation of left lower extremity below knee Amputation toe Ovarian cyst Amputation of left lower extremity below knee Surgical History History of cardiac cath History of amputation of toe H/O left knee surgery Hx of section History of surgery History of cholecystectomy History of esophagogastroduodenoscopy (EGD) History of hip surgery History of left below knee amputation History of tonsillectomy History of carpal tunnel release History of arthroplasty of right knee History of arthroplasty of left hip Family History Mother Coronary artery disease Father Coronary artery disease Sister Coronary artery disease Other Cancer Diabetes Social History Smoking Status: Current every day smoker tobacco type: cigarettes packs per day: 1 smoking status stop date: 20 quit status: considering quitting second hand exposure: No alcohol intake: never substance use type: denies use current occupational status: disabled Travel in the last 8 weeks: None housing: residential marital status: single number of children: 1 education level: high school diet: diabetic caffeine: No special leslie needs: No do you feel safe at home: Yes PM Subjective & Objective Subjective Subjective:: Patient is a pleasant 54-year-old female who presents today for follow-up of lateral SI injections on 08/30/2024. Today she rates her pain a 7 out of 10. Patient states that these injections did 100% for at least a week and a half. Patient states that it has just started to come back here recently and is really just on the right side. She denies any new injuries or falls. Patient does state that she really notices it when she goes to lay down to sleep and that it is interfering with her ability to perform activities of daily living such as cooking and cleaning. Patient does state from her last appointment she did actually become sick and was under the weather with flu and some upper respiratory issues. She states she is just now starting to feel better but they did put her on a steroid inhaler which is making her glucose levels a little bit more elevated than normal. Her Mauri has been reviewed and is appropriate. Review of Systems: General: No recent weight changes, no fever, no sleep disturbances Respiratory: No cough, no shortness of air, no recurring pulmonary infections Cardiovascular/peripheral vascular: No chest pain, no palpitations, no edema, no shortness of breath Gastrointestinal: No new onset incontinence, normal bowel movements reported Genitourinary: No new onset incontinence Musculoskeletal: Low back pain Psychiatric: [Normal mood/affect] Neurological: [Denies weakness in extremities], [denies balance issues] Pain at rest (0-10 scale): 7 Objective Objective:: Physical Exam: General: Alert and oriented x3, no acute distress, pleasant and cooperative Lungs: Respirations even and unlabored, symmetrical chest expansion Eyes: PERRL Musculoskeletal: Flexion and extension of lumbar [spine] somewhat guarded secondary to pain, [antalgic gait noted] point tenderness along right superior cluneal nerve Neurological: Speech clear, no gross sensory deficit Has patient had previous pain injection?: Yes Percent improvement in pain since last injection: 100% Conservative treatment options previously tried: Home exercise plan Length of treatment: Longer than 12 weeks Meds Home Medications and Allergies Home Medications ?Medication ?Instructions ?Recorded ?Confirmed ?Type atorvastatin 40 mg tablet 40 mg PO HS Cholesterol #90 tabs 11/25/21 09/13/24 Rx insulin syr/ndl U100 half maged 0.3 #10 ea 09/17/22 09/13/24 Rx mL 31 gauge x 5/16 (BD Insulin Syringe Ultra-Fine (half unit)) pen needle, diabetic 31 gauge x #100 ea 09/17/22 09/13/24 Rx 5/16 (Comfort EZ Pen [place]) blood pressure monitor (Blood #1 ea 02/06/23 09/13/24 Rx Pressure Kit) aspirin 81 mg tablet,delayed 81 mg PO DAILY antiplatelet #90 06/17/23 09/13/24 Rx release tabs acetaminophen 500 mg tablet 500 mg PO Q6H PRN Pain 11/05/23 09/13/24 History diphenhydramine HCl 25 mg capsule 25 mg PO TID PRN Insomnia 11/05/23 09/13/24 History (Benadryl) famotidine 20 mg tablet 20 mg PO BID 11/05/23 09/13/24 History insulin lispro 100 unit/mL 1 sliding scale dose SQ 11/05/23 09/13/24 History subcutaneous pen USEASDIRECTD sevelamer carbonate 800 mg tablet 800 mg PO TID 11/05/23 09/13/24 History sucralfate 1 gram tablet 1 g PO BID 11/05/23 09/13/24 History promethazine 25 mg tablet 25 mg PO Q6H PRN nausea and 12/02/23 09/13/24 Rx vomiting #20 tabs pen needle,diabetic dual safty 30 #100 ea 12/29/23 09/13/24 History gauge x 3/16 (BD AutoShield Duo Pen Needle) prasugrel HCl 10 mg tablet 10 mg PO DAILY #30 tabs 02/11/24 09/13/24 Rx (Effient) carvedilol 12.5 mg tablet 12.5 mg PO BID 02/23/24 09/13/24 History tizanidine 4 mg tablet 4 mg PO HS PRN MUSCLE SPASMS #90 02/23/24 09/13/24 Rx tabs venlafaxine 37.5 mg 37.5 mg PO DAILY 02/23/24 09/13/24 History capsule,extended release 24 hr amlodipine 10 mg tablet 10 mg PO .COMPLEX 03/01/24 09/13/24 History calcium carbonate 1,200 mg (2 x 600 mg calcium 03/15/24 09/13/24 Rx (1,500 mg)) PO DAILY #180 tabs cholecalciferol (vitamin D3) 50 50 mcg PO DAILY #90 caps 03/15/24 09/13/24 Rx mcg (2,000 unit) capsule gabapentin 300 mg capsule 300 mg PO HS #30 caps 04/21/24 09/13/24 Rx azelastine 137 mcg (0.1 %) nasal 2 spray intranasal BID #30 mL 05/17/24 09/13/24 Rx spray benzonatate 100 mg capsule 100 mg PO TID PRN cough 05/17/24 09/13/24 History bisacodyl 10 mg rectal suppository 10 mg AR DAILY PRN Constipation 05/17/24 09/13/24 History calcitonin (salmon) 200 1 spray intranasal (ALT) DAILY 05/17/24 09/13/24 History unit/actuation nasal spray epoetin gia 20,000 unit/mL 20,000 unit SQ WEEKLY 05/17/24 09/13/24 History injection solution (Procrit) fexofenadine 180 mg tablet 180 mg PO DAILY 05/17/24 09/13/24 History (Allergy Relief (fexofenadine)) polyethylene glycol 3350 17 17 g PO DAILY 05/17/24 09/13/24 History gram/dose oral powder pseudoephedrine HCl 60 mg tablet 60 mg PO Q6H PRN Chest Congestion 05/17/24 09/13/24 History (Sudogest) isosorbide mononitrate 30 mg 30 mg PO DAILY 06/14/24 09/13/24 History tablet,extended release 24 hr loperamide 2 mg tablet 2 mg PO Q4H PRN Diarrhea 06/14/24 09/13/24 History oxycodone 5 mg tablet 2.5 mg (1/2 x 5 mg) PO TID PRN 08/01/24 09/13/24 Rx pain #10 tabs ondansetron 4 mg disintegrating 4 mg PO Q8H PRN nausea and 08/25/24 09/13/24 Rx tablet vomiting 5 days #10 tabs albuterol sulfate 90 mcg/actuation 2 puff inhalation Q4-6H PRN 09/06/24 09/13/24 Rx aerosol inhaler shortness of breath or wheezing #8.5 grams amoxicillin 875 mg-potassium 1 tab PO BID 10 days #20 tabs 09/06/24 09/13/24 Rx clavulanate 125 mg tablet dextromethorphan-guaifenesin 10 10 ml PO Q4-6H PRN cough #500 mL 09/06/24 09/13/24 Rx mg-100 mg/5 mL oral liquid (Diabetic Tussin DM) insulin glargine 100 unit/mL (3 35 unit (0.35 mL) SQ BID #15 mL 09/06/24 09/13/24 Rx mL) subcutaneous pen (Basaglar KwikPen U-100 Insulin) New Prescriptions to Start Prescriptions: Allergies Allergy/AdvReac Type Severity Reaction Status Date / Time Sulfa (Sulfonamide Allergy ITCHING, Verified 09/13/24 13:21 Antibiotics) (SULFA BURNING IN (SULFONAMIDE ANTIBIOTICS)) EYES acetaminophen (From Tylox) AdvReac Nausea Verified 09/13/24 13:21 oxycodone (From Tylox) AdvReac Nausea Verified 09/13/24 13:21 Assessment and Plan *Assessment and plan (1) Nerve entrapment: Status: Acute Category: Medical Code(s): G58.9 - Mononeuropathy, unspecified (2) Sacroiliitis: Status: Acute Category: Medical Code(s): M46.1 - Sacroiliitis, not elsewhere classified Plan Patient has had significant improvements with her SI injections however does still have point tenderness along the right superior cluneal nerve location. I did discuss with the patient that she may benefit from a cluneal nerve block along this location. Risk and benefits were discussed with the patient and she would like to proceed forward with this plan of care. Patient has tried and failed conservative therapy including continued at home stretching exercise for longer than 12 weeks with no additional changes. Patient has had this pain for longer than 3 months and it has progressively worsened. I did also request that her provider there at the residential I had baclofen 10 mg at bedtime to her medication regimen. I did request that she call us if I need to send in the prescription or whether or not they are in-house pharmacy is going to fill this. Patient acknowledges understanding agrees with plan of care. Patient will be scheduled for a right superior cluneal nerve block. This will be done without fluoroscopic or ultrasound guidance. Patient has been instructed to contact the clinic with any concerns before the next appointment. Dr. Gomes has reviewed this note and agrees with this plan of care. This note was dictated using voice recognition software and make contain errors or omissions. All injections are used with Lidocaine, Bupivacaine and Depo Medrol. Occasionally urine drug screen is needed to verify patient's compliance with our office pain contract. This is ordered based off specific treatments related to chronic pain with the potential to abuse certain medications.
[2024-09-15 10:22] VITALS: BP 140/76; PULSE 86; RESP 16; O2SAT 96; BMI 40.3
== END 2024-09-15 23:59 | disposition home or self-care (01) ==
LOC: SC.PAIN 10:13
PROVIDERS: PCP Family Medicine; Visit Provider Nurse Practitioner Family
DX: G58.9 Mononeuropathy, unspecified (principal); M46.1 Sacroiliitis, not elsewhere classified; F17.210 Nicotine dependence, cigarettes, uncomplicated; Z73.89 Other problems related to life management difficulty; Z79.899 Other long term (current) drug therapy
CPT/HCPCS: 99212; G0463

== ENCOUNTER 2024-09-29 07:25 | Outpatient (CLI) | payer MEDICARE, MEDICAID, SELFPAY ==
--- NOTE | 2024-09-29 | CA_ITS ---
APPROVED REPORT Exam: Pharmacologic Technologist: Mitali Karimi Ht: 5 ft 5 in Wt: 255 lbs BSA: 2.19 m2 HR: 88 bpm BP: 184/90 mmHg Rhythm: Nsr Medical History Medical History: HTN, Hyperlipidemia, Diabetes, Smoking Medications: Epoetin gia, Famotidine, Fexofenadine, Gabapentin, Insulin glargine, Insulin lispro, Acetaminophen, Albuterol, Amlodipine, Aspirin, Atorvastatin, Azelastine, Benzonatate, Isosorbide Mononitrate ER, Loperamide, Ondansetron, Oxycodone, Polyethylene glycol 3350, Bisacodyl, Calcitonin, Calcium carbonate, Carvedilol, Vit D3, Diabetic Tussin DM, Benadryl, Prasugrel HCl, Promethazine, Pseudoephedrine HCl, Sucraltake, Sevelamer carbonate, Tizanidine, Venlafaxine ER Allergies: Sulfa, Acetaminophen, Oxycodone Cardiac Risk Factors: HTN, Hyperlipidemia, Diabetes, FHX of CAD, Smoking Stress Test Details Test: Lexiscan HR Resting HR: 88 bpm Max Heart Rate (APMHR): 166.674411 bpm Target HR (85% APMHR): 141.039258 bpm Recovery HR: 103 bpm BP Resting BP: 122.0/78.0 mmHg Recovery BP: 199.0/90.0 mmHg ECG Resting ECG: Nsr Stress ECG Conclusion Pt had dry heaving and vomiting No cp <1.5mm ST segment changes Non-diagnostic Lexiscan stress Electronically signed by : Adela Calle MD 09/29/2024 12:35:50
--- NOTE | 2024-09-29 07:28 | NM_ITS ---
APPROVED REPORT Exam: Nuclear Stress Test Indication: high bp.diabetes.high cholesterol..family hx Patient Location: Outpatient Stress Tech: Mitali Karimi [place] Tech:Cyndi Del Cid SUNSHINE RT(R)(N) Ht: 5 ft 6 in Wt: 249 lbs Bra Size: 2x HR: 88 bpm BP: 184/90 mmHg BSA: 2.19 m2 TID: 0.89 BMI: 40.1 History: high bp.diabetes.high cholesterol..family hx Procedure: Patient received 0.4 mg of intravenous Lexiscan, resting heart rate 88 bpm, resting blood pressure 184/90 mmHg, with Lexiscan maximum heart rate achieved was 113 bpm which is 85 % of the maximum predicted heart rate and blood pressure was 157/102 mmHg. With Lexiscan, patient denied any complaint of chest pain. The patient was not able to lay on her back for prone images. Cardiac Stress and Resting SPECT Images: Cardiac Stress and Resting SPECT images were obtained using technetium 99m Myoview 30.8 mCi stress and 10.88 mCi at rest. Technically difficult study. The patient is unable to lie on her abdomen. Therefore, prone stress imaging could not be performed. This may affect the diagnostic interpretation of the study findings. Resting and stress imaging in supine positions demonstrate no evidence of fixed or reversible perfusion defects. Gated imaging demonstrates normal global and regional LV systolic function. LVEF is calculated at 71%. Of note, the right ventricle appears dilated. Correlation with recent or new TTE is suggested. Conclusion: No evidence of fixed or reversible perfusion defects. Gated imaging demonstrates normal global and regional LV systolic function. LVEF is calculated at 71%. Of note, the right ventricle appears dilated. Correlation with recent or new TTE is suggested. Electronically signed by : Adela Calle MD 09/29/2024 12:33:03
--- NOTE | 2024-09-29 07:28 | CA_ITS ---
APPROVED REPORT EXAM: Comprehensive 2D, Doppler, and color-flow Echocardiogram Emergency Management Program Specialist: Karla Gaitan RVT Ht: 5 ft 5 in Wt: 255lbs BSA: 2.19 BP: 134/77 mmHg Indications: PRE-OP,CAD,HX PERICARDIAL WINDOW 2022,SHAYLA,DM,HTN,SMOKER,HLD,HX CARDIAC ARREST 07/26 TDS M-Mode Dimensions RVDd 3.15 cm (0.9-2.6) LA Diam 3.28 cm (1.9-4.0) LVDd 4.00 cm (3.5-5.7) LVDs 2.32 cm (3.5-5.7) IVSd 1.47 cm (0.6-1.1) PWd 1.27 cm (0.6-1.1) EF (Teich) 73.60% FS 42.00% EDV (Teich) 70.00 mL TAPSE 1.65 (<1.7) ESV (Teich) 18.50 mL LV Diastology E Decel Time 163 (160-240 msec) E/A Ratio 0.8 Aortic Valve GALI Index 0.99 cm2/m2 AoV Peak Joe. 122.0 (50-130 cm/s) AO Peak GR. 6.00 mmHg AO Mean GR. 3.40 (<5 mmHg) AO VTI 23.0 (18-25 cm) GALI (VTI) 2.23 (2.5-4.5 cm2) Mitral Valve MV E Max Joe. 66.0 (40-130 cm/s) MV A Velocity 84.0 (40-130 cm/s) E/A Ratio 0.79 MV PHT 48.0 ms Pulmonary Valve PV Peak Velocity 117.0 (50-150 cm/s) Tricuspid Valve TR P. Velocity 245.00 cm/s RAP Estimate 10.00 mmHg RVSP 34.00 mmHg Left Ventricle The left ventricle is normal size. The left ventricular systolic function is normal. The left ventricular ejection fraction is within the normal range. There is increased LV wall thickness. There is normal LV segmental wall motion. Transmitral Doppler flow pattern suggests impaired LV relaxation. LVEF is 55%. Right Ventricle The right ventricle is normal size. Right ventricle is mildly hypokinetic. Atria The left atrium size is normal. The right atrium size is normal. There is no Doppler evidence of interatrial shunt. Aortic Valve Aortic valve is mildly thickened. There is no aortic valvular stenosis. Trace aortic regurgitation is present. Mitral Valve The mitral valve leaflets are mildly thickened. No evidence of mitral valve stenosis. Trace mitral regurgitation. Tricuspid Valve Tricuspid valve is grossly normal in structure and function. Trace tricuspid regurgitation. There is insufficient TR jet to estimate RVSP. Pulmonic Valve The pulmonary valve is normal in structure. Trace pulmonic regurgitation. Great Vessels The aortic root is normal in size. IVC is normal in size and collapses >50% with inspiration. Pericardium There is no pericardial effusion. An epicardial fat pad is present. Other Information Study Quality: Fair Conclusion Normal biventricular systolic function. Mild RV dilation. No significant valvular stenosis or regurgitation. Electronically signed by : Adela Calle MD 10/04/2024 00:54:09
[2024-09-29] MEDS: REGADENOSON 0.4MG/5ML SYRINGE 0.4 MG IV (09:32)
[2024-09-29] MEDS: SODIUM CHLORIDE 0.9% 10ML SYR (RAD ONLY) 10 ML IV ×2 (09:32)
[2024-09-29] MEDS: ISOTOPE MYOVIEW (PER STUDY) 1 DOSE IV (09:32)
== END 2024-09-29 23:59 | disposition home or self-care (01) ==
LOC: RAD 07:28
PROVIDERS: PCP Family Medicine; Visit Provider Nurse Practitioner Family
DX: I25.10 Atherosclerotic heart disease of native coronary artery without angina pectoris (principal); I46.9 Cardiac arrest, cause unspecified
CPT/HCPCS: 78452; 93017; 93018; 93306; A9502; J2785

== ENCOUNTER 2024-10-11 10:22 | Day surgery (SDC) | payer MEDICARE, MEDICAID, SELFPAY ==
[2024-10-11 10:26] VITALS: BP 111/75; PULSE 80; RESP 16; TEMP 36.8; O2SAT 97; BMI 40.3
[2024-10-11 10:50] VITALS: BP 142/77; PULSE 80; RESP 16; O2SAT 94
--- NOTE | 2024-10-11 10:50 | EXP.PAIN.PRO ---
Procedure Date: 10/11/24 Time: 10:40 Anesthesiologist:: Escobar Tolbert CRNA Complications:: None Pre-procedure Diagnosis:: Right sacroiliitis. Post-procedure Diagnosis:: Same Indications for Procedure:: Patient is a pleasant 54-year-old female comes our clinic today for right cluneal nerve block. Patient describes right buttock pain as constant, dull, aching. Patient describes having difficulty transitioning from sitting to standing. She responded very well to right sacroiliac joint injection in the past. Procedure Details:: Details of the procedure explained to the patient. The patient taken procedure and placed the prone position. The area over the right buttock was cleaned using chlorhexidine as a cleansing solution. Using a 22-gauge 3 and half inch needle the area of the right cluneal nerve was accessed without difficulty. After negative aspiration 60 cc of 1% lidocaine and 40 mg of Depo-Medrol was injected. Patient tolerated procedure without difficulty. There are no complications. Plan and Disposition:: Patient was discharged without incident.
[2024-10-11] MEDS: BUPIVACAINE 0.25% 10ML INJ 25 MG IJ (12:37)
[2024-10-11 12:38] VITALS: BP 136/70; PULSE 79; RESP 18; O2SAT 96
[2024-10-11] MEDS: LIDOCAINE 1% 5ML PF VIAL 5 ML (12:38)
[2024-10-11] MEDS: methylPREDNISolone ACETATE 80MG/ML VIAL 80 MG (12:38)
[2024-10-11 12:39] VITALS: BP 136/70; PULSE 79; RESP 18; O2SAT 96
== END 2024-10-11 10:50 | disposition home or self-care (01) ==
PROVIDERS: PCP Family Medicine; Visit Provider Nurse Anesthetist, Certified Registered
DX: M46.1 Sacroiliitis, not elsewhere classified (principal)
CPT/HCPCS: 64450; J1010

== ENCOUNTER 2024-10-27 14:54 | Outpatient (POV) | payer MEDICARE, MEDICAID, SELFPAY ==
--- NOTE | 2024-10-27 15:12 | A.OFFVIS_ITS ---
[facility] Disclaimer: The information contained in this section may have been updated after the patient was seen, as this information can be updated by other users. Medical History (Updated 10/25/24 @ 09:57 by GILMA Patricia) Impacted cerumen of both ears Left ear pain Pre-op evaluation Influenza Cardiac arrest Pneumonia Rib pain on right side Left ear pain Tinnitus, left ear Fistula Carpal tunnel syndrome of left wrist Low back pain Diabetes mellitus Abnormal findings on diagnostic imaging of heart and coronary circulation Pericardial effusion Pre-op testing Acute kidney injury Other pericardial effusion (noninflammatory) Allergies Amputation of left lower extremity below knee Amputation toe Ovarian cyst Amputation of left lower extremity below knee Surgical History History of cardiac cath History of amputation of toe H/O left knee surgery Hx of section History of surgery History of cholecystectomy History of esophagogastroduodenoscopy (EGD) History of hip surgery History of left below knee amputation History of tonsillectomy History of carpal tunnel release History of arthroplasty of right knee History of arthroplasty of left hip Family History Mother Coronary artery disease Father Coronary artery disease Sister Coronary artery disease Other Cancer Diabetes Social History Smoking Status: Current every day smoker tobacco type: cigarettes packs per day: 1 smoking status stop date: 20 quit status: considering quitting second hand exposure: No alcohol intake: never substance use type: denies use current occupational status: other Travel in the last 8 weeks: None housing: [facility] marital status: single number of children: 1 education level: high school diet: diabetic caffeine: No special leslie needs: No do you feel safe at home: Yes PM Subjective & Objective Subjective Subjective:: Patient is a pleasant 54-year-old female who presents today for follow-up of right cluneal nerve block on 10/11/2024. She denies any new trauma or injury. She does state that she has had 100% relief following this injection and feels like it is still working well. She rates today a 0 out of 10 pain. She states that she has been able to move around easier with overall decreased pain and feels much more functional. Patient does make mention today that she did get a new apartment in [place] and however she is unsure when she will be moving. Patient is asking in future once she moves is there a closer location that she can go to rather than having to make that hour and a half drive back to our office. Her Mauri has been reviewed. Review of Systems: General: No recent weight changes, no fever, no sleep disturbances Respiratory: No cough, no shortness of air, no recurring pulmonary infections Cardiovascular/peripheral vascular: No chest pain, no palpitations, no edema, no shortness of breath Gastrointestinal: No new onset incontinence, normal bowel movements reported Genitourinary: No new onset incontinence Musculoskeletal: Low back pain Psychiatric: [Normal mood/affect] Neurological: [Denies weakness in extremities], [denies balance issues] Pain at rest (0-10 scale): 0 Objective Objective:: Physical Exam: General: Alert and oriented x3, no acute distress, pleasant and cooperative Lungs: Respirations even and unlabored, symmetrical chest expansion Eyes: PERRL Musculoskeletal: Flexion and extension of lumbar [spine] somewhat guarded secondary to pain, [antalgic gait noted] Neurological: Speech clear, no gross sensory deficit Has patient had previous pain injection?: Yes Percent improvement in pain since last injection: 100% Conservative treatment options previously tried: Home exercise plan Length of tr eatment: Longer than 12 weeks Meds Home Medications and Allergies Home Medications ?Medication ?Instructions ?Recorded ?Confirmed ?Type atorvastatin 40 mg tablet 40 mg PO HS Cholesterol #90 tabs 11/25/21 10/25/24 Rx insulin syr/ndl U100 half maged 0.3 #10 ea 09/17/22 10/11/24 Rx mL 31 gauge x 5/16 (BD Insulin Syringe Ultra-Fine (half unit)) pen needle, diabetic 31 gauge x #100 ea 09/17/22 10/11/24 Rx 5/16 (Comfort EZ Pen [place]) blood pressure monitor (Blood #1 ea 02/06/23 10/11/24 Rx Pressure Kit) aspirin 81 mg tablet,delayed 81 mg PO DAILY antiplatelet #90 06/17/23 10/25/24 Rx release tabs acetaminophen 500 mg tablet 500 mg PO Q6H PRN Pain 11/05/23 10/25/24 History diphenhydramine HCl 25 mg capsule 25 mg PO TID PRN Insomnia 11/05/23 10/11/24 History (Benadryl) famotidine 20 mg tablet 20 mg PO BID 11/05/23 10/11/24 History insulin lispro 100 unit/mL 1 sliding scale dose SQ 11/05/23 10/11/24 History subcutaneous pen USEASDIRECTD sevelamer carbonate 800 mg tablet 800 mg PO TID 11/05/23 10/11/24 History sucralfate 1 gram tablet 1 g PO BID 11/05/23 10/11/24 History promethazine 25 mg tablet 25 mg PO Q6H PRN nausea and 12/02/23 10/11/24 Rx vomiting #20 tabs pen needle,diabetic dual safty 30 #100 ea 12/29/23 10/11/24 History gauge x 3/16 (BD AutoShield Duo Pen Needle) prasugrel HCl 10 mg tablet 10 mg PO DAILY #30 tabs 02/11/24 10/11/24 Rx (Effient) carvedilol 12.5 mg tablet 12.5 mg PO BID 02/23/24 10/25/24 History venlafaxine 37.5 mg 37.5 mg PO DAILY 02/23/24 10/11/24 History capsule,extended release 24 hr amlodipine 10 mg tablet 10 mg PO .COMPLEX 03/01/24 10/25/24 History calcium carbonate 1,200 mg (2 x 600 mg calcium 03/15/24 10/25/24 Rx (1,500 mg)) PO DAILY #180 tabs cholecalciferol (vitamin D3) 50 50 mcg PO DAILY #90 caps 03/15/24 10/25/24 Rx mcg (2,000 unit) capsule gabapentin 300 mg capsule 300 mg PO HS #30 caps 04/21/24 10/11/24 Rx azelastine 137 mcg (0.1 %) nasal 2 spray intranasal BID #30 mL 05/17/24 10/25/24 Rx spray benzonatate 100 mg capsule 100 mg PO TID PRN cough 05/17/24 10/25/24 History bisacodyl 10 mg rectal suppository 10 mg MT DAILY PRN Constipation 05/17/24 10/25/24 History calcitonin (salmon) 200 1 spray intranasal (ALT) DAILY 05/17/24 10/25/24 History unit/actuation nasal spray epoetin gia 20,000 unit/mL 20,000 unit SQ WEEKLY 05/17/24 10/11/24 History injection solution (Procrit) fexofenadine 180 mg tablet 180 mg PO DAILY 05/17/24 10/11/24 History (Allergy Relief (fexofenadine)) polyethylene glycol 3350 17 17 g PO DAILY 05/17/24 10/11/24 History gram/dose oral powder isosorbide mononitrate 30 mg 30 mg PO DAILY 06/14/24 10/11/24 History tablet,extended release 24 hr loperamide 2 mg tablet 2 mg PO Q4H PRN Diarrhea 06/14/24 10/11/24 History ondansetron 4 mg disintegrating 4 mg PO Q8H PRN nausea and 08/25/24 10/11/24 Rx tablet vomiting 5 days #10 tabs albuterol sulfate 90 mcg/actuation 2 puff inhalation Q4-6H PRN 09/06/24 10/25/24 Rx aerosol inhaler shortness of breath or wheezing #8.5 grams baclofen 10 mg tablet 10 mg PO HS 10/04/24 10/25/24 History guaifenesin 100 mg/5 mL oral liquid 200 mg PO Q4H PRN . 10/04/24 10/11/24 History insulin glargine 100 unit/mL (3 35 unit SQ BID 10/04/24 10/11/24 History mL) subcutaneous pen (Basaglar KwikPen U-100 Insulin) pseudoephedrine HCl 60 mg tablet 60 mg PO Q4-6H PRN . 10/04/24 10/11/24 History (Sudogest) New Prescriptions to Start Prescriptions: Allergies Allergy/AdvReac Type Severity Reaction Status Date / Time Sulfa (Sulfonamide Allergy ITCHING, Verified 10/25/24 09:32 Antibiotics) (SULFA BURNING IN (SULFONAMIDE ANTIBIOTICS)) EYES acetaminophen (From Tylox) AdvReac Nausea Verified 10/25/24 09:32 oxycodone (From Tylox) AdvReac Nausea Verified 10/25/24 09:32 Assessment and Plan *Assessment and plan (1) Nerve entrapment: Status: Acute Category: Medical Code(s): G58.9 - Mononeuropathy, unspecified Plan Patient has had 100% improvements following her cluneal nerve block and does not require any additional injection therapy at this time. Patient did also state that the baclofen 10 mg at bedtime has also helped significantly. She states she does not need refills at this time. Patient will return to clinic in 6 weeks. I did discuss with the patient if she ends up moving before this appoint ment to let our office know and we will transfer her information to the [place] location. Patient agrees with this plan of care. Patient has been instructed to contact the clinic with any concerns before the next appointment. Dr. Gomes has reviewed this note and agrees with this plan of care. This note was dictated using voice recognition software and make contain errors or omissions. All injections are used with Lidocaine, Bupivacaine and Depo Medrol. Occasionally urine drug screen is needed to verify patient's compliance with our office pain contract. This is ordered based off specific treatments related to chronic pain with the potential to abuse certain medications.
[2024-10-27 15:24] VITALS: BP 162/90; PULSE 91; RESP 14; O2SAT 94; BMI 42.4
== END 2024-10-27 23:59 | disposition home or self-care (01) ==
LOC: SC.PAIN 14:56
PROVIDERS: PCP Family Medicine; Visit Provider Nurse Practitioner Family
DX: G58.9 Mononeuropathy, unspecified (principal); F17.210 Nicotine dependence, cigarettes, uncomplicated; Z79.899 Other long term (current) drug therapy
CPT/HCPCS: 99212; G0463

== ENCOUNTER 2024-11-09 02:21 | Emergency (ER) | payer MEDICARE, MEDICAID, SELFPAY ==
[2024-11-09] VITALS (13 sets, daily range): BP systolic 119–175; BP diastolic 58–99; PULSE 77–101; RESP 12–24; TEMP 36.7–37.1; O2SAT 67–98; BMI 42.4
--- NOTE | 2024-11-09 02:14 | CT_ITS ---
PROCEDURE INFORMATION: Exam: CTA Chest With Contrast Exam date and time: 11/09/2024 2:30 AM Age: 54 years old Clinical indication: Pain; Chest pressure; Additional info: Hypoxia cp TECHNIQUE: Imaging protocol: Computed tomographic angiography of the chest with contrast. Exam focused on the arteries. 3D rendering (Not supervised by radiologist): MIP and/or 3D reconstructed images were created by the technologist. Radiation optimization: All CT scans at this facility use at least one of these dose optimization techniques: automated exposure control; mA and/or kV adjustment per patient size (includes targeted exams where dose is matched to clinical indication); or iterative reconstruction. Contrast material: ISOVUE; Contrast volume: 70 ml; Contrast route: INTRAVENOUS (IV); COMPARISON: CT ANGIO CHEST PE PROTOCOL 05/30/2024 12:24 AM FINDINGS: Tubes, catheters and devices: Left subclavian central line is present, distal tip at the atrial caval junction. Pulmonary arteries: The heart is borderline enlarged. Exclusion of pulmonary emboli is significantly limited due to motion artifact. No large central pulmonary emboli. Small peripheral emboli can not be excluded. Aorta: The aorta demonstrates mild atherosclerotic calcification. There is no evidence of aortic dissection, leak, rupture, or other acute vascular pathology. Thyroid: The thyroid gland is normal. Lungs: There is a pulmonary parenchymal calcification consistent with remote granulomatous organism exposure. Evaluation of the lungs is limited due to motion artifact. There are scattered streaky and ground-glass opacities in the lungs bilaterally without large focal areas of consolidation. Pleural spaces: There is a trace left pleural effusion. No right effusion. No pneumothorax. Heart: See Pulmonary arteries finding. Coronary arteries: There is severe atherosclerotic calcification of the coronary arteries. Lymph nodes: Calcified lymph nodes indicate prior granulomatous disease. There are scattered mediastinal and hilar lymph nodes which are mildly prominent and mildly increased since prior exam. A right paratracheal lymph node currently measuring 10 mm previously measured approximately 8 mm. A subcarinal lymph node currently measuring 12 mm previously measured approximately 9 mm. Diaphragm: There is mild to moderate elevation of the right hemidiaphragm. Gallbladder and biliary ducts: There has been a cholecystectomy. Adrenal glands: There is a fat density complex nodule in the right adrenal gland with peripheral calcification which is stable, currently measuring approximately 3.1 x 2.2 cm consistent with myelolipoma. There is a small rounded fat density mass also present involving the posterior left adrenal gland measuring approximately 17 x 16 mm, stable, also likely reflecting a small myelolipoma. Bones/joints: The thoracic spine demonstrates moderate degenerative changes at multiple levels. There is mild loss of vertebral body height involving several midthoracic vertebral bodies, unchanged from prior exam. There are several stable chronic appearing right lateral rib fractures, new since 08/27/2022. Soft tissues: There is a large fat containing midline upper abdominal ventral hernia measuring 7.8 x 4.6 x 8 cm. There is mild increased density also present within the hernia which may reflect mild edema. Other findings: Motion artifact does moderately limit the sensitivity of this examination. IMPRESSION: 1. Study quality significantly limited due to motion artifact. 2. Exclusion of pulmonary emboli is significantly limited due to heterogeneous contrast attenuation of visualized pulmonary arteries and significant motion artifact. As seen, no large or central pulmonary emboli. Small peripheral emboli can not be excluded on this exam. 3. Prominent stable fat containing midline epigastric hernia. 4. Evaluation of the lungs is limited due to motion artifact. Scattered streaky, nodular and ground-glass opacities bilaterally without large focal areas of consolidation. Recommend repeat/short-term follow-up exam when the patient's condition permits. Findings may reflect edema or pneumonia. Correlate clinically. 5. Trace left effusion. 6. Stable right adrenal myelolipoma and smaller left adrenal myelolipoma. 7. Mildly prominent nonspecific mediastinal and hilar adenopathy, mildly increased from prior exam.
--- NOTE | 2024-11-09 02:17 | ECG_ITS ---
APPROVED REPORT Exam: Resting ECG HR:100 bpm ECG Measurements Heart Rate 100 AXES WI 174 P 53 QRSd 87 QRS 33 QT 332 T 34 QTc 389 Conclusion SINUS TACHYCARDIA ABNORMAL RHYTHM ECG No STEMI Electronically signed by : PAULINE RAMIREZ, 11/09/2024 06:22:43
--- NOTE | 2024-11-09 02:23 | PC.NURSE ---
Pt to CT scan via stretcher
[2024-11-09] MEDS: NITROGLYCERIN 0.4MG SL TABLET 0.4 MG SL (02:24)
[2024-11-09] MEDS: ASPIRIN 81MG CHEWABLE TABLET 324 MG PO (02:24)
[2024-11-09] MEDS: FUROSEMIDE 40MG/4ML VIAL 80 MG IV (02:24)
[2024-11-09 02:26] LABS: VBG Base Excess -1.4 mmol/L (-2.4-2.3); VBG HCO3 24.8 mmol/L (23-30); VBG Oxygen Saturation 76.2 % (50-70); VBG PH 7.31 mmol/L (7.31-7.41); VBG PO2 42.6 mmol/L (28-40); VBG Total CO2 26.4 mmol/L (23-27)
[2024-11-09 02:34] LABS: Lactate Venous 2.6 mmol/L (0.4-2.0); VBG PCO2 50.1 mmol/L (35-51)
[2024-11-09 02:37] LABS: Basophils % 0.3 % (0.1-2.0); Eosinophils # 0.2 K/mm3 (0.0-0.4); Eosinophils % 1.6 % (0.1-12.0); Hematocrit 28.7 % (37.0-47.0); Hemoglobin 9.6 g/dL (12.2-16.2); Lymphocytes # 1.8 K/mm3 (0.7-4.5); Lymphocytes % 15.8 % (10-50); Mean Corpuscular HGB Conc 33.4 g/dL (31.8-35.4); Mean Corpuscular Hemoglobin 32.5 pg (27.0-31.2); Mean Corpuscular Volume 97.3 fl (81-99); Mean Platelet Volume 9.6 fl (7.4-10.4); Monocytes # 0.5 K/mm3 (0.1-1.0); Neutrophils # 8.9 K/mm3 (1.8-7.8); Neutrophils % 77.3 % (37.0-80.0); Platelet Count 276 K/mm3 (142-424); Red Blood Count 2.95 M/mm3 (4.20-5.40); Red Cell Distribution Width 14.3 % (11.5-17.5); White Blood Count 11.5 K/mm3 (4.8-10.8)
[2024-11-09 02:43] LABS: Alanine Aminotransferase 62 U/L (12-78); Albumin/Globulin Ratio 1.3 (1.1-1.8); Alkaline Phosphatase 237 U/L (38-126); Anion Gap 20.4 mEq/L (5-15); Aspartate Amino Transferase 46 U/L (14-36); Bilirubin,Total 0.6 mg/dl (0.2-1.3); Calcium 8.1 mg/dl (8.4-10.2); Carbon Dioxide 24 mmol/L (22.0-30.0); Chloride 100 mmol/L (98-107); Creatinine Clearance Estimated 8 mL/min (50-200); Estimated Glomerular Filt Rate 6 ml/min (>60); GFR (African American) 7 ML/MIN (>60); Glucose 220 mg/dl (74-100); INR 0.87 (0.9-1.1); Potassium 4.4 mmoL/L (3.5-5.1); Prothrombin Time 9.9 seconds (10.1-12.5); Sodium 140 mmol/L (136-145)
[2024-11-09] MEDS: 0.9 % SODIUM CHLORIDE 50 ML VIAL IV (02:45)
[2024-11-09] MEDS: IOPAMIDOL-370 (76%);100ML BOTTLE 70 ML IV (02:45)
[2024-11-09] MEDS: SODIUM CHLORIDE 0.9% 10ML SYR (RAD ONLY) 10 ML IV (02:45)
[2024-11-09 02:47] LABS: Blood Urea Nitrogen 82 mg/dl (7-17)
--- NOTE | 2024-11-09 02:48 | ED_ITS ---
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 hospitalist and received a bed assignment directly from the ESL TEACHER Junie with the hospitalist team. There must have been some sort of communication breakdown because the hospitalist reported to charge master coordinator Darris that the bed has been assigned to the patient since the time of our initial conversation. Report is being called at this time. Repeat troponin resulted at 0.02, slight increase since patient's initial troponin. This was likely due to patient's profound hypoxia on arrival causing stress on the heart. She is not having any new chest pain or abnormalities on the monitor. Awaiting ambulance availability for transportation to [facility]. Patient was transferred in serious but currently stable condition.
[2024-11-09] MEDS: IPRATROPIUM/ALBUTEROL 3 ML NEB 6 ML IH (02:52)
[2024-11-09 02:55] LABS: NT Pro Brain Natriuretic Pep. 2530 pg/mL (0-125)
--- NOTE | 2024-11-09 02:59 | PC.NURSE ---
Critical received from Gloria in lab of patient Creat at 7.5, and BUN 82. Dr. Woodward made aware.
[2024-11-09 03:01] LABS: Troponin I < 0.01 ng/ml (0.00-0.034)
[2024-11-09 03:05] LABS: Microscopic, Urine URINE MICROSCOPIC (MICROSCOPIC)
[2024-11-09 03:07] LABS: Appearance,Urine CLEAR (Clear); Bilirubin,Urine Negative (Negative); Blood, Urine 1+ (Negative); Color,Urine YELLOW (Yellow); Glucose,Urine (UA) Negative (Negative); Ketones,Urine Negative (Negative); Leukocyte Esterase,Urine Negative (Negative); Nitrate,Urine Negative (Negative); Protein,Urine 2+ (Negative); Urobilinogen,Urine 0.2 EU/dl (0.2)
[2024-11-09 03:19] LABS: Bacteria,Urine Trace /lpf; RBC,Urine 20-50 #/hpf (0-3); WBC,Urine Occasional #/hpf (0-3)
[2024-11-09 03:23] LABS: Lactic Acid 1.9 mmol/L (0.7-2.1)
--- NOTE | 2024-11-09 03:47 | PC.NURSE ---
Notified [facility] of need for transfer
[2024-11-09 04:03] LABS: HIV Combo NEGATIVE (Negative)
--- NOTE | 2024-11-09 05:18 | PC.NURSE ---
No bed assigned Transfer center will call back when one becomes available
[2024-11-09 05:34] LABS: Troponin I 0.02 ng/ml (0.00-0.034)
--- NOTE | 2024-11-09 05:36 | PC.NURSE ---
Transfer center called to update there is still no bed assignment workers' compensation claims supervisor called to inquire about whether or not there will be a bed available today, she asked that I call the accepting nurse practitioner. Called this number and left a message
--- NOTE | 2024-11-09 05:41 | PC.NURSE ---
Nurse practitioner called back with bed assignment Nursing on car supervisor notified of bed assignment we were told and phone number of [phone] given to call report. Aminata GUAJARDO updated
--- NOTE | 2024-11-09 05:45 | PC.NURSE ---
Lidia GUAJARDO called EMS this time for transfer to [facility] Bed 1
[2024-11-09 06:30] LABS: Reflex Lactic Add Lactic Reflex
[2024-11-09 07:08] LABS: Lactic Acid Follow Up (RFLX 1) 1.1 mmol/L (0.7-2.1)
--- NOTE | 2024-11-09 08:13 | PC.NURSE ---
[facility] at bedside, report given. RT transitioned pt to [facility] from [facility] for transport. Sats 93-95% and maintaining well
--- NOTE | 2024-11-09 08:14 | PC.NURSE ---
Updated [facility] on transfer to their facility at this time.
== END 2024-11-09 08:12 | disposition short-term general hospital (02) ==
PROVIDERS: Emergency Provider Emergency Medicine
DX: J96.01 Acute respiratory failure with hypoxia (principal); E87.70 Fluid overload, unspecified; N18.6 End stage renal disease; R07.9 Chest pain, unspecified; Z99.2 Dependence on renal dialysis; Z11.4 Encounter for screening for human immunodeficiency virus [HIV]
CPT/HCPCS: 96374; 99291; 51702; 71275; 80053; 81001; 82803; 83605; 83880; 84484; 85025; 85610; 87040; 87389; 93005; J1938; Q9967

== ENCOUNTER 2024-12-15 14:17 | Outpatient (POV) | payer MEDICARE, MEDICAID, SELFPAY ==
[2024-12-15 14:52] VITALS: BP 132/64; PULSE 90; RESP 18; O2SAT 95; BMI 42.6
--- NOTE | 2024-12-15 15:03 | EXP.PAIN.SOA ---
[facility] Disclaimer: The information contained in this section may have been updated after the patient was seen, as this information can be updated by other users. Medical History Impacted cerumen of both ears Left ear pain Pre-op evaluation Influenza Cardiac arrest 07/19/24 at [facility] Pneumonia Rib pain on right side Left ear pain Tinnitus, left ear Fistula Carpal tunnel syndrome of left wrist Low back pain Diabetes mellitus Abnormal findings on diagnostic imaging of heart and coronary circulation Pericardial effusion Pre-op testing Acute kidney injury Other pericardial effusion (noninflammatory) Allergies Amputation of left lower extremity below knee Amputation toe 4 TOES AMPUTATED ON RIGHT FOOT in 2022 Ovarian cyst Amputation of left lower extremity below knee Surgical History History of cardiac cath History of amputation of toe complete amputation of all toes on right foot H/O left knee surgery Hx of section History of surgery HEART CATH 2 STENTS PLACED History of cholecystectomy History of esophagogastroduodenoscopy (EGD) History of hip surgery LEFT HIP, 2019 History of left below knee amputation 2019 History of tonsillectomy History of carpal tunnel release History of arthroplasty of right knee History of arthroplasty of left hip Family History Mother Coronary artery disease Father Coronary artery disease Sister Coronary artery disease Other Cancer Diabetes Social History Smoking Status: Never smoker smoking status stop date: quit status: considering quitting second hand exposure: No alcohol intake: never substance use type: denies use current occupational status: other Travel in the last 8 weeks?: None [facility]: [facility] marital status: single number of children: 1 education level: high school diet: diabetic caffeine: No special leslie needs: No do you feel safe at home: Yes PM Subjective & Objective Subjective Subjective:: Patient is a pleasant 54-year-old female who presents today for 6-week follow-up. Today she rates her pain a 1 out of 10. She denies any new trauma or injury. She does state that she is still continue to get great relief with the cluneal nerve block and rated at 100% relief at her last visit. Patient is also still using the baclofen 10 mg at bedtime. Patient denies any other changes. Her Mauri has been reviewed and is appropriate. Review of Systems: General: No recent weight changes, no fever, no sleep disturbances Respiratory: No cough, no shortness of air, no recurring pulmonary infections Cardiovascular/peripheral vascular: No chest pain, no palpitations, no edema, no shortness of breath Gastrointestinal: No new onset incontinence, normal bowel movements reported Genitourinary: No new onset incontinence Musculoskeletal: Low back pain Psychiatric: [Normal mood/affect] Neurological: [Denies weakness in extremities], [denies balance issues] Pain at rest (0-10 scale): 1 Objective Objective:: Physical Exam: General: Alert and oriented x3, no acute distress, pleasant and cooperative Lungs: Respirations even and unlabored, symmetrical chest expansion Eyes: PERRL Musculoskeletal: Flexion and extension of lumbar [spine] within normal limits Neurological: Speech clear, no gross sensory deficit Has patient had previous pain injection?: No Conservative treatment options previously tried: Home exercise plan Length of treatment: Longer than 12 Meds Home Medications and Allergies Home Medications ?Medication ?Instructions ?Recorded ?Confirmed ?Type atorvastatin 40 mg tablet 40 mg PO HS Cholesterol #90 tabs 11/25/21 11/15/24 Rx insulin syr/ndl U100 half maged 0.3 #10 ea 09/17/22 10/27/24 Rx mL 31 gauge x 5/16 (BD Insulin Syringe Ultra-Fine (half unit)) pen needle, diabetic 31 gauge x #100 ea 09/17/22 10/27/24 Rx 5/16 (Comfort EZ Pen [place]) blood pressure monitor (Blood #1 ea 02/06/23 10/27/24 Rx Pressure Kit) aspirin 81 mg tablet,delayed 81 mg PO DAILY antiplatelet #90 06/17/23 11/15/24 Rx release tabs acetaminophen 500 mg tablet 500 mg PO Q6H PRN Pain 11/05/23 11/15/24 History famotidine 20 mg tablet 20 mg PO BID 11/05/23 11/15/24 History insulin lispro 100 unit/mL 1 sliding scale dose SQ 11/05/23 11/15/24 History subcutaneous pen USEASDIRECTD sevelamer carbonate 800 mg tablet 800 mg PO TID 11/05/23 11/15/24 History sucralfate 1 gram tablet 1 g PO BID 11/05/23 11/15/24 History pen needle,diabetic dual safty 30 #100 ea 12/29/23 10/27/24 History gauge x 3/16 (BD AutoShield Duo Pen Needle) prasugrel HCl 10 mg tablet 10 mg PO DAILY #30 tabs 02/11/24 11/15/24 Rx (Effient) carvedilol 12.5 mg tablet 12.5 mg PO BID 02/23/24 11/15/24 History venlafaxine 37.5 mg 37.5 mg PO DAILY 02/23/24 11/15/24 History capsule,extended release 24 hr amlodipine 10 mg tablet 10 mg PO .COMPLEX 03/01/24 11/15/24 History calcium carbonate 1,200 mg (2 x 600 mg calcium 03/15/24 11/15/24 Rx (1,500 mg)) PO DAILY #180 tabs calcitonin (salmon) 200 1 spray intranasal (ALT) DAILY 05/17/24 11/15/24 History unit/actuation nasal spray epoetin gia 20,000 unit/mL 20,000 unit SQ WEEKLY 05/17/24 11/15/24 History injection solution (Procrit) fexofenadine 180 mg tablet 180 mg PO DAILY 05/17/24 11/15/24 History (Allergy Relief (fexofenadine)) polyethylene glycol 3350 17 17 g PO DAILY 05/17/24 11/15/24 History gram/dose oral powder isosorbide mononitrate 30 mg 30 mg PO DAILY 06/14/24 11/15/24 History tablet,extended release 24 hr albuterol sulfate 90 mcg/actuation 2 puff inhalation Q4-6H PRN 09/06/24 11/15/24 Rx aerosol inhaler shortness of breath or wheezing #8.5 grams baclofen 10 mg tablet 10 mg PO HS 10/04/24 11/15/24 History insulin glargine 100 unit/mL (3 35 unit SQ BID 10/04/24 11/15/24 History mL) subcutaneous pen (Basaglar KwikPen U-100 Insulin) pseudoephedrine HCl 60 mg tablet 60 mg PO Q4-6H PRN . 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 Patient will return to clinic in 3 months. Patient has been instructed to contact the clinic with any concerns before the next appointment. Dr. Gomes has reviewed this note and agrees with this plan of care. This note was dictated using voice recognition software and make contain errors or omissions. All injections are used with Lidocaine, Bupivacaine and dexamethasone. Occasionally urine drug screen is needed to verify patient's compliance with our office pain contract. This is ordered based off specific treatments related to chronic pain with the potential to abuse certain medications.
== END 2024-12-15 23:59 | disposition home or self-care (01) ==
LOC: SC.PAIN 14:19
PROVIDERS: PCP Family Medicine; Visit Provider Nurse Practitioner Family
DX: G58.9 Mononeuropathy, unspecified (principal); Z89.512 Acquired absence of left leg below knee; Z89.421 Acquired absence of other right toe(s); Z79.899 Other long term (current) drug therapy
CPT/HCPCS: 99212; G0463

== ENCOUNTER 2025-01-25 07:39 | Outpatient (CLI) | payer MEDICARE, MEDICAID, SELFPAY ==
--- OUTSIDE RECORDS SUMMARY | 2025-01-10 10:59 | XMS_ITS | Encounter Summary ---
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 Name Role Phone Unavailable Primary Care Provider Unavailabl e Reason for Visit * Auth/Cert (Routine) Specialty Diagnoses / Procedures Referred By Contac t Referred To Contact Diagnoses Other specified complication of vascular prosthetic devices, implants and grafts, initial encounter (HCC) Other specified complication of vascular prosthetic devices Procedures DE ARTERIOVENOUS ANASTOMOSIS OPEN DIRECT CREATION, AV FISTULA Baljinder Sloan MD [address] [place] [address] Phone: tel: fax: Referral ID Status Reason Start Date Expiration Date Visits Re quested Visits Authorized [id number] 01/03/2025 1 1 Encounter Details Date Type Department Care Team (Late st Contact Info) Description 01/10/2025 10:59 AM EDT - 01/10/2025 12:29 PM EDT Surgery [facility] Operating Room [address] [place] [id number] Baljinder Sloan MD [address] [place] [address] LEFT IJ tunneled catheter exchanged RIGHT brachiocephalic arteriovenous fistula creation Social History Tobacco Use Types Packs/Day Years Used Date Smoking Tobacco: Some Days Cigarettes Smokeless Tobacco: Former Comments:Vap daily Alcohol Use Standard Drinks/Week Comments Not Currently 0 (1 standard drink = 0.6 oz pur e alcohol) PRAPARE - Transportation Answer Date Re corded In the past 12 months, has l ack of transportation kept you from medical appointments or from getting medications? Patient declined 12/18/2022 Lack of Transportation (Non-Medical) Not on file 12/18/2022 Housing Stability Vital Sign Answer Emeterio e Recorded In the last 12 months, was t here a time when you were not able to pay the mortgage or rent on time? Patient refused 12/19/19 23 In the last 12 months, how many places have you lived? 1 12/18/2022 In the last 12 months, was t here a time when you did not have a steady place to sleep or slept in a jail (including now)? Patient refused 12/18/2022 Interpersonal Safety Answer Date Record ed Family or friends hurt you Not on file 08/11 Family or friends insult you Not on file 04/2024 Family or friends threaten you Not on file 0 08/11/2023 Family or friends scream or curse at you Not on file 08/11/2023 Housing Stability Answer Date Recorded Living situation today Not on file Living situation problems Not on file 2023 Family and Community Support Answer Emeterio e Recorded Help with Day to Day Activities Not on file 08/11/2023 Feeling Lonely or Isolated Not on file 08/11 Educational Attainment Answer Date Earl rded Speak language other than Haitian at home Not on file 08/11/2023 Want help with school or training Not on file 08/11/2023 Depression Answer Date Recorded PHQ-2 Risk Not on file 08/11/2023 Disabilities Answer Date Recorded Difficulty concentrating Not on file 024 Difficulty doing errands alone Not on file 0 08/11/2023 Substance Use Answer Date Recorded Used prescription meds for non-medical reasons N ot on file 08/11/2023 Used illegal drugs past 12 months Not on file 08/11/2023 Comments Unknown Sex and Gender Information Value Date Recorded Sex Assigned at Not on file Legal Sex Female 5:37 PM CDT Gender Identity Not on file Sexual Orientation Not on file documented as of this encounter Discharge Instructions * Appointments* Cali Langford RN - 01/10/2025 2:11 PM EDT You have a scheduled follow up appointment at Dr. Sloan' office on 02/15/2025 at 8:30 AM. This will be at the [address] [place] [address] location. You may gradually resume your regular diet today, as tolerated. If you follow a fluid restriction, please resume it. Keep your right arm elevated at/above heart level for 24-48 hours The incision site closed with glue may get wet in the shower in 48 hours. Do not let the shower stream beat directly on the incision site. Do not soak or submerge incision(s) in water. If you have a dialysis catheter in your chest for dialysis access, do not allow this site to get wet. No strenuous activity No blood pressures, Ivs, or sticks in operative arm No driving for 24 hours or while taking narcotics No drinking alcohol for 24 hours or while taking narcotics For bleeding, apply firm direct pressure to the incision site and go to your nearest ER/call 911 ifbleeding does not stop Report any of the following sign/symptoms of infection to your surgeon: fever over 100.4, body chills, redness/swelling/warmth around your incision site(s), or any green, yellow, or foul smelling drainage from incision(s). Also notify your surgeon of any unrelieved or worsening pain, uncontrolled nausea and or vomiting, constipation, or any other questions or concerns You must have a responsible adult 18+ with you for the next 24 hours as you are considered to be under the influence of anesthesia It is important to not remove any bret, stitches, glue, or drains unless instructed to do so by your doctor. Following surgery, include plenty of whole grains, protein, and green leafy vegetables into your diet to promote healing. Drink plenty of water (if you do not follow a fluid restriction). If you received a peripheral nerve block preoperatively, please continue to keep your arm in the provided sling while up and moving/walking, until the mobility and sensation completely returns in arm. You may elevate your arm at heart level when you are at rest, and only have your arm in the sling to protect it while up moving. Once the sensation and movement has completely returned, you may stop using the sling. * Attachments The following attachments cannot be sent through Care Everywhere. * AV Fistula Placement Care After (Haitian) * Monitored Anesthesia Care Care After (Haitian) * Peripheral Nerve Block (Haitian) documented in this encounter Medications at Time of Discharge acetaminophen (TYLENOL) 500 MG tablet Take 1 tablet (500 mg total) by mouth every 6 (six) hours as needed for pain. amLODIPine (NORVASC) 10 MG tablet Take 1 tablet (10 mg total) by mouth daily. 12/12/2022 aspirin 81 MG EC tablet Take 1 tablet (81 mg total) by mouth daily. 12/01/2022 atorvastatin (LIPITOR) 40 MG tablet Take 1 tablet (40 mg total) by mouth nightly. 12/03/2022 calcitonin, salmon, (MIACALCIN) 200 unit/actuation nasal spray [place] 1 spray into one nostril daily. calcium carbonate 600mg (Caltrate) 600 mg calcium (1,500 mg) tab Take 1 tablet (1,500 mg total) by mouth daily. 04/10/2024 carvediloL (COREG) 12.5 MG tablet Take 1 tablet (12.5 mg total) by mouth 2 (two) times daily. 12/06/2022 diphenhydrAMINE (BENADRYL) 25 mg tablet Take 1 tablet (25 mg total) by mouth 3 (three) times daily as needed for itching. epoetin gia (Procrit) 20,000 unit/2 mL soln injection Inject 2 mLs (20,000 Units total) under the skin once a week. famotidine (PEPCID) 20 MG tablet Take 1 tablet (20 mg total) by mouth 2 (two) times daily. fexofenadine (DANIELLE) 180 MG tablet Take 1 tablet (180 mg total) by mouth daily. gabapentin (NEURONTIN) 300 MG capsule Take 1 capsule (300 mg total) by mouth nightly. 02/04/2024 isosorbide mononitrate (IMDUR) 30 MG 24 hr tablet Take 1 tablet (30 mg total) by mouth daily. metoclopramide (REGLAN) 10 MG tablet Take 1 tablet (10 mg total) by mouth 3 (three) times daily before meals. ondansetron (ZOFRAN) 4 MG tablet Take 1 tablet (4 mg total) by mouth every 8 (eight) hours as needed for nausea. polyethylene glycol (MIRALAX) 17 gram/dose powder Take 17 g by mouth daily. prasugreL (EFFIENT) 10 mg tab tablet Take 1 tablet (10 mg total) by mouth daily. 02/10/2024 pseudoephedrine (Sudogest) 60 MG tablet Take 1 tablet (60 mg total) by mouth every 6 (six) hours as needed for congestion. sevelamer (RENAGEL) 800 MG tablet Take 1 tablet (800 mg total) by mouth 3 (three) times daily with meals. venlafaxine (Effexor XR) 37.5 MG 24 hr capsule Take 1 capsule (37.5 mg total) by mouth daily. baclofen (LIORESAL) 5 mg tab Take 1 tablet (5 mg total) by mouth every night as needed for muscle spasms. insulin glargine-yfgn (SEMGLEE) 100 unit/mL soln solution Inject 22 Units subcutaneously 2 (two) times daily. 07/26/2024 01/14/20 insulin lispro (HUMALOG, ADMELOG) 100 unit/mL injection Inject subcutaneously 3 (three) times daily before meals. 01/14/20 sucralfate (CARAFATE) 1 gram tablet Take 1 tablet (1 g total) by mouth 2 (two) times daily. 01/14/20 25 documented as of this encounter Progress Notes * Chaplain David - 01/10/2025 1:24 PM EDT Spiritual Care Progress Note Surgery referral Provided pre-surgery visit and prayer with patient and caregiver. Chaplain David 01/10/2025 1:46 PM documented in this encounter H&P Notes * Mee Valdivia PA-C - 01/10/2025 12:32 PM EDT H&P History Of Present Illness Carla Burkett is a 54 y.o. female with pertinent PMH of SHAYLA, CHF, DM II, CKD, GERD, HTN, and ESRD. Patient has been on HD for 2 years and requires a new vascular access strategy due to left arm graft complications and previous surgical challenges. Currently has left chest TDC. This afternoon the patient denies any acute issues. No f/c/s. No cp, soa. Patient was evaluated by Dr. Sloan and presents today for an elective right upper extremity brachiocephalic AV fistula creation. Past Medical History She has a past medical history of C. difficile colitis, Cardiac arrest ([facility]) (07/19/2024), CHF (congestive heart failure) ([facility]) (01/19/2024), Chronic kidney disease, Coronary artery disease-heart stents x 2 2019, CTS (carpal tunnel syndrome)left, Depression, Diabetes mellitus (HCC), ESRD (end stagerenal disease) on dialysis ([facility])//thu, Hyperlipidemia, unspecified (10/06/2022), Hypertension, Kidney failure, Obstructive sleep apnea, Osteomyelitis ([facility]) resolved, Peripheral vascular disease due to secondary diabetes ([facility]), Post- menopausal, and Wound of right foot wrapped. Surgical History She has a past surgical history that includes Knee arthroscopy (Right); Carpal tunnel release (Right); Tonsillectomy; Gallbladder surgery; heart stents; Below knee leg amputation (Left); AMPUTATION,TOE (Right); INSERTION,DIALYSIS CATHETER; CREATION,PERICARDIAL WINDOW (N/A, 12/19/2022); melvi left hip; TRANSPOSITION,VEIN (Left, 04/20/2023); and ORIF,FEMUR (Left, 08/10/2023). Social History She reports that she has been smoking cigarettes. She has quit using smokeless tobacco. She reportsthat she does not currently use alcohol. She reports that she does not currently use drugs after having used the following drugs: Marijuana. Family History Her family history is not on file. Allergies Sulfa (Sulfonamide Antibiotics) and Tylox [Oxycodone-Acetaminophen] Medications Current Outpatient Medications Medication Instructions acetaminophen (TYLENOL) 500 mg, Every 4 hours PRN amLODIPine (NORVASC) 10 mg, Daily aspirin 81 mg, Daily atorvastatin (LIPITOR) 40 mg, Every Night azelastine (ASTELIN) 137 mcg (0.1 %) nasal spray 1 spray, each nostril, 2 times daily, Use in each nostril as directed bisacodyL (DULCOLAX) 10 mg, rectal, Daily as needed calcitonin, salmon, (MIACALCIN) 200 unit/actuation nasal spray 1 spray by one nostril route daily. calcium carbonate 600mg (Caltrate) 600 mg calcium (1,500 mg) tab 1 tablet, oral, Daily carvediloL (COREG) 12.5 mg, 2 times daily cholecalciferol, vitamin D3, 50 mcg (2,000 unit) cap 1 capsule, Daily diphenhydrAMINE (BENADRYL) 25 mg, oral, 3 times daily PRN famotidine (PEPCID) 20 mg, 2 times daily fexofenadine (DANIELLE) 180 mg, Daily gabapentin (NEURONTIN) 300 mg, Every Night HumuLIN 70/30 U-100 100 unit/mL (70-30) inpn insulin pen 15 Units, subcutaneous, Every morning insulin glargine-yfgn (SEMGLEE) 22 Units, subcutaneous, 2 times daily insulin lispro (HUMALOG, ADMELOG) 100 unit/mL injection 3 times daily before meals isosorbide mononitrate (IMDUR) 30 mg, Daily loperamide (IMODIUM) 2 mg, 4 times daily PRN ondansetron (ZOFRAN) 4 mg, oral, Every 8 hours PRN polyethylene glycol (MIRALAX) 17 g, oral, Daily prasugreL (EFFIENT) 10 mg tab tablet 1 tablet Procrit 20,000 Units, subcutaneous, Weekly promethazine (PHENERGAN) 25 mg, Every 6 hours PRN pseudoephedrine (SUDOGEST) 60 mg, Every 6 hours PRN sevelamer (RENAGEL) 800 mg, 3 times daily with meals sucralfate (CARAFATE) 1 g, 2 times daily venlafaxine XR (EFFEXOR XR) 37.5 mg, Daily Review of Systems 14 point ROS completed and non-contributory except as listed above Physical Exam Blood pressure (!) 184/84, pulse 93, temperature 98.4 ??F (36.9 ??C), temperature source Temporal Artery, height 1.676 m (5' 6 ), weight 121.6 kg (268 lb), SpO2 90%. GEN: Alert, awake, NAD, obese HEENT: NCAT, no icterus, no thrush, nares patent, CV: S1S2, no murmur. Right LE edema Resp: CTAB, NL Abd: Soft, NT, ND +BS Skin: no rashes on inspection and palpation. Ext: RLE edema. No joint edema, erythema. Left BKA, right TMA. Neuro: A&O x 3, CN grossly intact Diagnostic Results No visits with results within 1 Day(s) from this visit. Latest known visit with results is: No results displayed because visit has over 200 results. XR chest AP portable Narrative: PORTABLE CHEST 07/26/2024 6:44 AM HISTORY: Pneumonia follow-up. COMPARISON: Previous day . FINDINGS: The heart is stable in size. There has been interval improvement in the bibasilar lung atelectasis. There is no pneumothorax. The support devices are in good position. Impression: There has been interval improvement . Continued follow up recommended. Images reviewed, interpreted, and dictated by Dr. Ivanna Sutton. Transcribed by Kathleen Granados PA-C. Assessment & Plan ESRD Other specified complication of vascular implants and grafts -to OR for scheduled procedure SHAYLA DM II CHF -ECHO 07/19/2024: EF 75% +/- 5%. Mild left ventricular hypertrophy. CAD HTN GERD CKD HLD Obesity Associated attestation - Baljinder Sloan MD - 01/11/2025 11:48 AM CDT I reviewed Mee Valdivia's documentation and agree with her assessment and plan for Carla Burkett. documented in this encounter OR Notes * Op Note - Baljinder Sloan MD - 01/10/2025 2:01 PM EDT Date: 01/10/2025 Procedures: LEFT IJ tunneled catheter exchange (Merit DuraFlow 2 23cm working length) RIGHT brachiocephalic arteriovenous fistula creation Diagnosis: Pre-Op Diagnosis Codes: * Other specified complication of vascular prosthetic devices, implants and grafts, initial encounter ([facility]) [T82.898A] Post-Op Diagnosis Codes: * Other specified complication of vascular prosthetic devices, implants and grafts, initial encounter ([facility]) [T82.898A] Indications: Carla Burkett is a 54 year old lady, a patient of Francisco Doherty APRN, with ESRD on HD qMWF who has failed LEFT upper extremity access and currently dialyzes via LEFT IJ tunneledcatheter. She requires a permanent access and the RIGHT cephalic vein is an adequate vein for dialysis. NB, her 07/19/24 surgery was cancelled due to a cardiac arrest. A nuclear stress test last month showed no significant cardiac concerns. The risks, benefits, and alternatives of the above procedure were discussed and the patient has elected to proceed. Surgeons: * Baljinder Sloan MD - Primary Findings: New LEFT IJ tunneled catheter terminates at the level of the RIGHT atrium. Excellent thrill in the RIGHT brachiocephalic arteriovenous fistula. Procedure Details: The patient was seen in the preoperative area. The site of surgery was properly noted/marked if necessary per policy. The patient has been actively warmed in preoperative area. Preoperative antibiotics have been ordered and given within 0.5 hours of incision. Venous thrombosis prophylaxis are not indicated. The patient was lying supine on the hybrid OR table when she was gently sedated. The LEFT upper chest including existing tunneled catheter and circumferential RIGHT arm and forearm were then prepped and draped in usual sterile fashion. The patient was identified as Carla Burkett per time-out protocol. The 035 wire was then advanced into the existing tunneled catheter and advanced into the RIGHT heart without ectopy. The cuff of the catheter was then dissected free allowing for removal of the tunneled catheter. The wire was then wiped down with chlorhexadine wipes and the new tunneled catheter was then advanced into position terminating at the level of the RIGHT atrium. Both ports aspirate and flush easily. Heparinized saline was then allowed to dwell in the ports. The catheter was then secured at the access site using 3-0 Monocryl in Emilio sandal fashion. Attention was then turned to the RIGHT arm. A transverse incision was made in the proximal forearm and dissection was then carried down to the level of the cephalic vein which was roughly 4-5mm in size. This was then mobilized and the brachial artery was identified deeper within the proximal forearm and encircled proximally and distally with vessel loops. The patient was then systemically heparinized. The cephalic vein was then marked for orientation then ligated. The vessel cannula was then tied to the transected end and allowed to distend the vein with heparinized saline with a 7-8mm vesselnoted. Next, the vessel loops on the brachial artery were tightened and an arteriotomy was made. The vein was then prepared for anastomosis which was completed using 6-0 Prolene in running, continuous fashion. After anglican of flow, there is an excellent thrill within the brachiocephalic arteriovenous fistula with preserved arterial flow distal to the anastomosis. The wound was then inspectedfor hemostasis then closed in layers using 2-0 and 3-0 Vicryl with 4-0 Monocryl to approximate the s kin edges. Skin glue was applied to the incision. At the end of the case, the sponge and needle counts were reported as correct. Anesthesia: Monitor Anesthesia Care Estimated Blood Loss: * No values recorded between 01/10/2025 1:50 PM and 01/10/2025 2:01 PM * Total IV Fluids: 100 mL Drains: External Urinary Catheter (Active) Specimens: Specimens (From admission, onward) None Complications: None * No complications entered in OR log * Disposition: to phase 2 for interval discharge. F/U 1 month with RUE dialysis access scan Condition: stable Attending Attestation: A qualified resident physician was not available. documented in this encounter Plan of Treatment Not on file documented as of this encounter Procedures Procedure Name Priority Date/Time Associated Diagnosis Comments NOVA GLUCOSE POC Routine 01/10/2025 4:39 PM EDT DE ARTERIOVENOUS ANASTOMOSIS OPEN DIRECT 01/10/2025 1:50 PM EDT Other specified complication of vascular prosthetic devices, implants and grafts, initial encounter ([facility]) Case Notes IN 1000 , 1 HR (A) FS_MODEL_IP POCT , URINE Routine 01/10/2025 1:16 PM EDT CHEM8+ POC Routine 01/10/2025 1:13 PM EDT documented in this encounter Results * (ABNORMAL) Glucose, Nova Meter (01/10/2025 4:39 PM EDT) [facility] POC-GLUCOSE 112(H) 70 - 110 mg/dL 01/10/2025 4:40 PM EDT [facility] Comment: In the event of poor peripheral blood flow, venous or arterial blood should be used due to the potential of erroneous results. Protocols Followed Operations Administrator [id number] 01/10/2025 4:40 PM EDT [facility] Blood WHOLE BLOOD / Unknown 01/10/2025 4:39 PM EDT 01/10/2025 4:40 PM EDT Narrative [facility] - 01/10/2025 4:40 PM EDT Operations Administrator ID is - [id number] us Baljinder Sloan MD POINT OF CARE TEST ORDERABLES Fi nal Result [facility] [address] [place] [address] * POCT , urine (01/10/2025 1:16 PM EDT) [facility] POC, URINE HCG Negative Negative INTERNAL QC (VALID/INVALID ) Valid Kit Lot Number [id number] Expiration Date 2026-05-31 01/10/2025 1:16 PM EDT Pro Barr MD FS_MODEL_IP_POINT OF CARE TEST ENTER/EDIT ORDERABLES Edited Result - Final * (ABNORMAL) Chem8+ POC (01/10/2025 1:13 PM EDT) [facility] POC Sodium 142 138 - 146 mmol/L 01/10/2025 1:23 PM EDT [facility] POC Potassium 4.8 3.5 - 4.9 mmol/L 01/10/2025 1:23 PM EDT [facility] POC Chloride 97(L) 98 - 109 mmol/L 01/10/2025 1:23 PM EDT [facility] POC Glucose 138(H) 70 - 105 mg/dL 01/10/2025 1:23 PM EDT [facility] POC BUN 47(H) 8 - 26 mg/dL 01/10/2025 1:23 PM EDT [facility] POC Anion Gap 14 10 - 20 mmol/L 01/10/2025 1:23 PM EDT [facility] POC IONIZED CALCIUM BENJI 1.18 1.12 - 1.32 mmol/L 01/10/2025 1:23 PM EDT [facility] POC CO2 TOTAL BENJI 36(H) 24 - 29 mmol/L 01/10/2025 1:23 PM EDT [facility] POC-Creatinine 6.3(H) 0.6 - 1.3 mg/dL 01/10/2025 1:23 PM EDT [facility] POC-EGFR 7 mL/min/1.7 3M2 01/10/2025 1:23 PM EDT [facility] Comment:Proceed with contras t if eGFR > 45 ml/min/1.73 when performed on the NovaSTAT strip Creatinine meter. POC HEMATOCRIT BENJI 32(L) 38 - 51 %PCV 01/10/2025 1:23 PM EDT [facility] POC HEMOGLOBIN BENJI 10.9(L) 12.0 - 17.0 g/dL 01/10/2025 1:23 PM EDT [facility] Blood 01/10/2025 1:13 PM EDT 01/10/2025 1:23 PM EDT Narrative [facility] - 01/10/2025 1:23 PM EDT Operations Administrator ID is - [id number] us Baljinder Sloan MD POINT OF CARE TEST ORDERABLES Fi nal Result [facility] [address] [id number] [phone] documented in this encounter Visit Diagnoses Diagnosis Other specified complication of vascular prosthetic devices, implants and grafts, initial encounter (HCC) documented in this encounter Administered Medications Inactive Administered Medications - up to 3 most recent administrations Medication Order MAR Action Action Date Dose Rate Site heparin infusion 1000 units in sodium chloride 0.9% (NS) 500 mL (2 units/mL) Continuous PRN, Starting on Thu01/10/25 at 1517, Intra-op New Bag 01/10/2025 3:17 PM EDT 500 mLs Other hydrALAZINE (APRESOLINE) injection 10 mg 10 mg Every 6 hours PRN, intravenous, high blood pressure (specify), SBP >150mmHg, Starting on Thu01/10/25 at 1400, Hold if SBP < 100 mmHg, DBP < 50 mmHg, or patient is on pressor. Look-alike/Sound-alike medication lidocaine (XYLOCAINE) injection 1% As needed, Starting on Thu01/10/25 at 1516, Intra-op Given 01/10/2025 3:16 PM EDT 18 mLs morphine 10 mg/mL injection 4 mg Every 2 hour PRN, intravenous, moderate pain (4-6), Starting on Thu01/10/25 at 1400, For 10 doses ondansetron (ZOFRAN) injection 4 mg 4 mg Every 12 hours PRN, intravenous, nausea, vomiting, Starting on Thu01/10/25 at 1401, For IV push, give over 2 - 5 minutes. Given 01/10/2025 4:00 PM EDT 4 mg Given 01/10/2025 3:22 PM EDT 4 mg sodium chloride 0.9 % infusion 100 mL/hr Continuous, intravenous, Starting on Thu01/10/25 at 1400, Pre-op New Bag 01/10/2025 1:25 PM EDT 10 mL/hr 10 mL/hr sodium chloride 0.9 % infusion 3 mL/kg/hr 121.6 kg Continuous (364.8 mL/hr), intravenous, Starting on Thu01/10/25 at 1400, 1 hour prior to procedure run at 3 ml/kg/hr then 1ml/kg/hr intraoperatively and 6 hours post-op , Pre-op sodium chloride 0.9 % infusion 1 mL/kg/hr 121.6 kg Continuous (121.6 mL/hr), intravenous, Starting on Thu01/10/25 at 1430, Run at 1 ml/kg/hr intraoperatively and 6 hours post-op , Pre-op sodium chloride flush 10 mL 10 mL As needed, intravenous, line care, Starting on Thu01/10/25 at 1315, Every 8 hours and PRN to flush, Pre-op documented in this encounter Active and Recently Administered Medications Times are shown in EDT. Scheduled Medication Order 01/08/2025 01/09/2025 01/10/2025 ceFAZolin (ANCEF) 3 g in sodium chloride 0.9% (NS) IVPB CMPD (PMX) (COMPLETED) 3 g Once, intravenous, Administer over 60 Minutes, On Thu01/10/25 at 1400, For 1 dose, Administer within 60 minutes of incision or procedure start., Pre-op, Please choose an indication: Surgical Prophylaxis 1357 (Given - Provid er: Paolo Monte) Continuous Medication Order 01/08/2025 01/09/2025 01/10/2025 sodium chloride 0.9 % infusion 100 mL/hr Continuous, intravenous, Starting on Thu01/10/25 at 1400, Pre-op 1325 (New Bag - Prov ider: Denise Buck RN) sodium chloride 0.9 % infusion(Linked Group 1) 3 mL/kg/hr 121.6 kg Continuous (364.8 mL/hr), intravenous, Starting on Thu01/10/25 at 1400, 1 hour prior to procedure run at 3 ml/kg/hr then 1ml/kg/hr intraoperatively and 6 hours post-op , Pre-op 1400 (Due) sodium chloride 0.9 % infusion(Linked Group 1) 1 mL/kg/hr 121.6 kg Continuous (121.6 mL/hr), intravenous, Starting on Thu01/10/25 at 1430, Run at 1 ml/kg/hr intraoperatively and 6 hours post-op , Pre-op 1430 (Due) PRN Medication Order 01/08/2025 01/09/2025 01/10/2025 heparin infusion 1000 units in sodium chloride 0.9% (NS) 500 mL (2 units/mL) (COMPLETED) Continuous PRN, Starting on Thu01/10/25 at 1517, Intra-op 1517 (New Bag - Prov ider: Baljinder Sloan MD - Comment: HEP SALINE ON STERILE FIELD FOR IRRIGATION) hydrALAZINE (APRESOLINE) injection 10 mg 10 mg Every 6 hours PRN, intravenous, high blood pressure (specify), SBP >150mmHg, Starting on Thu01/10/25 at 1400, Hold if SBP < 100 mmHg, DBP < 50 mmHg, or patient is on pressor. Look-alike/Sound-alike medication lidocaine (XYLOCAINE) injection 1% (CANCELED) As needed, Starting on Thu01/10/25 at 1516, Intra-op 1516 (Given - Provid er: Baljinder Sloan MD) morphine 10 mg/mL injection 4 mg Every 2 hour PRN, intravenous, moderate pain (4-6), Starting on Thu01/10/25 at 1400, For 10 doses ondansetron (ZOFRAN) injection 4 mg 4 mg Every 12 hours PRN, intravenous, nausea, vomiting, Starting on Thu01/10/25 at 1401, For IV push, give over 2 - 5 minutes. 1522 (Given - Provid er: Paolo Monte)1600 (Given - Provider: Fred Underwood CRNA) sodium chloride flush 10 mL(Linked Group 2) 10 mL As needed, intravenous, line care, Starting on Thu01/10/25 at 1315, Every 8 hours and PRN to flush, Pre-op Linked Groups Order Group 1: sodium chloride 0.9 % infusionJump to med 3 mL/kg/hr 121.6 kg Continuous (364.8 mL/hr), intravenous, Starting on Thu01/10/25 at 1400, 1 hour prior to procedure run at 3 ml/kg/hr then 1ml/kg/hr intraoperatively and 6 hours post-op , Pre-op And sodium chloride 0.9 % infusionJump to med 1 mL/kg/hr 121.6 kg Continuous (121.6 mL/hr), intravenous, Starting on Thu01/10/25 at 1430, Run at 1 ml/kg/hr intraoperatively and 6 hours post-op , Pre-op Group 2: Insert Peripheral IV (CANCELED) STAT, Once, On Thu01/10/25 at 1316, For 1 occurrence, Pre-op And Saline Lock IV (CANCELED) Routine, Once, On Thu01/10/25 at 1316, For 1 occurrence, Pre-op And sodium chloride flush 10 mLJump to med 10 mL As needed, intravenous, line care, Starting on Thu01/10/25 at 1315, Every 8 hours and PRN to flush, Pre-op documented in this encounter Additional Health Concerns Infection Onset Date Last Indicated Resolved Time 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
--- OUTSIDE RECORDS SUMMARY | 2025-01-10 12:29 | XMS_ITS | Encounter Summary ---
Author Organization [facility] Address [address] [place] [address] Care Team Providers Care Tip Length Checker Name Role Phone Unavailable Primary Care Provider Unavailabl e Reason for Visit * Auth/Cert (Routine) Specialty Diagnoses / Procedures Referred By Contac t Referred To Contact Diagnoses Other specified complication of vascular prosthetic devices, implants and grafts, initial encounter (HCC) Other specified complication of vascular prosthetic devices Procedures [place] ARTERIOVENOUS ANASTOMOSIS OPEN DIRECT CREATION, AV FISTULA Baljinder Sloan MD [address] [place] [address] Phone: tel: fax: Referral ID Status Reason Start Date Expiration Date Visits Re quested Visits Authorized [id number] 01/03/2025 1 1 Encounter Details Date Type Department Care Team (Latest Contact Info) Description 01/10/2025 12:29 PM EDT - 01/10/2025 5:38 PM EDT Hospital Encounter [facility] Operating Room [address] [place] [phone] Baljinder Sloan MD [address] [place] [address] Discharge Disposition: Home or Self Care Social History Tobacco Use Types Packs/Day Years [...] place to sleep or slept in a penitentiary (including now)? Patient refused 12/18/2022 Interpersonal Safety [...] Date Earl rded Speak language other than Indian at home Not on file 08/11/2023 Want [...] on file documented as of this encounter Last Filed Vital Signs Vital Sign Reading Time Taken Comments Blood Pressure 138/73 01/10/2025 4:58 PM EDT Pulse 92 01/10/2025 4:58 PM EDT Temperature 36.1 C (97 F) 01/10/2025 4:24 PM EDT Respiratory Rate 16 01/10/2025 4:58 PM EDT Oxygen Saturation 94% 01/10/2025 4:58 PM EDT Inhaled Oxygen Concentration - - Weight 121.6 kg (268 lb) 01/10/2025 12:47 PM EDT Height 167.6 cm (5' 6 ) 01/10/2025 12:47 PM EDT Body Mass Index 43.26 01/10/2025 12:47 PM EDT documented in this encounter Discharge Instructions * Appointments* Cali Langford RN - 01/10/2025 2:11 PM EDT You have a scheduled follow up appointment at Dr. Sloan' office on 02/15/2025 at 8:30 AM. This will be at the [address] [place] [address] location. You may gradually resume your regular [...] Everywhere. * AV Fistula Placement Care After (Indian) * Monitored Anesthesia Care Care After (Indian) * Peripheral Nerve Block (Indian) documented in this encounter Medications at Time [...] of this encounter Progress Notes * Chaplain Daivd - 01/10/2025 1:24 PM EDT Spiritual Care [...] arrest (HCC) (07/19/2024), CHF (congestive heart failure) (HCC) (01/19/2024), Chronic kidney disease, Coronary artery disease-heart [...] Images reviewed, interpreted, and dictated by Dr. Iavnna Sutton. Transcribed by Kathleen Granados PA-C. Assessment [...] prosthetic devices, implants and grafts, initial encounter ([facility]) [T82.898A] Post-Op Diagnosis Codes: * Other specified complication of vascular prosthetic devices, implants and grafts, initial encounter ([facility]) [T82.898A] Indications: Carla Burkett is a 54 [...] 6-0 Prolene in running, continuous fashion. After jehovah's witness of flow, there is an excellent thrill [...] GLUCOSE POC Routine 01/10/2025 4:39 PM EDT [place] ARTERIOVENOUS ANASTOMOSIS OPEN DIRECT 01/10/2025 1:50 PM EDT Other specified complication of vascular prosthetic devices, implants and grafts, initial encounter ([facility]) Case Notes IN 1000 , 1 HR (A) FS_MODEL_IP POCT , URINE Routine 01/10/2025 1:16 PM EDT CHEM8+ POC Routine 01/10/2025 1:13 PM EDT documented in this encounter Results * (ABNORMAL) Glucose, Nova Meter (01/10/2025 4:39 PM EDT) POC-GLUCOSE 112(H) 70 - 110 mg/dL 01/10/2025 4:40 PM EDT [facility] Comment: In the event of poor peripheral blood flow, venous or arterial blood should be used due to the potential of erroneous results. Protocols Followed Room Clerk [id number] 01/10/2025 4:40 PM EDT [facility] Blood WHOLE BLOOD / Unknown 01/10/2025 4:39 PM EDT 01/10/2025 4:40 PM EDT Narrative [facility] - 01/10/2025 4:40 PM EDT Room Clerk ID is - [id number] us Baljinder Sloan MD POINT OF CARE TEST ORDERABLES Fi nal Result [facility] [address] [phone] * POCT , urine (01/10/2025 1:16 PM EDT) POC, URINE HCG Negative Negative INTERNAL QC (VALID/INVALID ) Valid Kit Lot Number [id number] Expiration Date 2026-05-31 01/10/2025 1:16 PM EDT Pro Barr MD FS_MODEL_IP_POINT OF CARE TEST ENTER/EDIT ORDERABLES Edited Result - Final * (ABNORMAL) Chem8+ POC (01/10/2025 1:13 PM EDT) POC Sodium 142 138 - 146 mmol/L 01/10/2025 1:23 PM EDT [facility] POC Potassium 4.8 3.5 - 4.9 mmol/L 01/10/2025 1:23 PM EDT [facility] POC Chloride 97(L) 98 - 109 mmol/L 01/10/2025 1:23 PM EDT [facility] POC Glucose 138(H) 70 - 105 mg/dL 01/10/2025 1:23 PM EDT [facility] POC BUN 47(H) 8 - 26 mg/dL 01/10/2025 1:23 PM EDT [facility] POC Anion Gap 14 10 - 20 mmol/L 01/10/2025 1:23 PM EDT [facility] POC IONIZED CALCIUM BENJI 1.18 1.12 - 1.32 mmol/L 01/10/2025 1:23 PM EDT [facility] POC CO2 TOTAL BENJI 36(H) 24 - 29 mmol/L 01/10/2025 1:23 PM EDT [facility] POC-Creatinine 6.3(H) 0.6 - 1.3 mg/dL 01/10/2025 1:23 PM EDT [facility] POC-EGFR 7 mL/min/1.7 3M2 01/10/2025 1:23 PM EDT [facility] Comment:Proceed with contras t if eGFR > 45 ml/min/1.73 when performed on the NovaSTAT strip Creatinine meter. POC HEMATOCRIT BENJI 32(L) 38 - 51 %PCV 01/10/2025 1:23 PM EDT [facility] POC HEMOGLOBIN BENJI 10.9(L) 12.0 - 17.0 g/dL 01/10/2025 1:23 PM EDT [facility] Blood 01/10/2025 1:13 PM EDT 01/10/2025 1:23 PM EDT Narrative [facility] - 01/10/2025 1:23 PM EDT Room Clerk ID is - [id number] us Baljinder Sloan MD POINT OF CARE TEST ORDERABLES Fi nal Result [facility] [address] [place] [address], [facility] [phone] documented in this encounter Visit Diagnoses Not on filedocumented in this encounter Administered Medications Inactive Administered Medications - up to 3 most recent administrations Medication Order MAR Action Action Date Dose Rate Site hydrALAZINE (APRESOLINE) injection 10 mg 10 mg Every 6 hours PRN, intravenous, high blood pressure (specify), SBP >150mmHg, Starting on Thu01/10/25 at 1400, Hold if SBP < 100 mmHg, DBP < 50 mmHg, or patient is on pressor. Look-alike/Sound-alike medication morphine 10 mg/mL injection 4 mg Every [...]
--- OUTSIDE RECORDS SUMMARY | 2025-01-10 13:51 | XMS_ITS | Encounter Summary ---
Author Organization [facility] Address [address] [place] [address] Care Team Providers Care Architectural Draftsman Name Role Phone Unavailable Primary Care Provider Unavailabl e Reason for Visit * Auth/Cert (Routine) Specialty Diagnoses / Procedures Referred By Meg kumar Referred To Contact Diagnoses Other specified complication of vascular prosthetic devices, implants and grafts, initial encounter (HCC) Other specified complication of vascular prosthetic devices Procedures DC ARTERIOVENOUS ANASTOMOSIS OPEN DIRECT CREATION, AV FISTULA Baljinder Sloan MD [address] [facility] [place] [id number] Phone: tel: fax: Referral ID Status Reason Start Date Expiration Date Visits Re quested Visits Authorized [id number] 01/03/2025 1 1 Encounter Details Date Type Department Care Team (Late st Contact Info) Description 01/10/2025 1:51 PM EDT Anesthesia Event [facility] Operating Room [address] [place] [address] Pro Barr MD [address] [phone] Josef Noyola MD [address] [place], [place] [phone] Anesthesia Record Procedure Summary Procedure Name Responsible Anesthesiologist Anesthesia Start Time Anesthesia Stop Time LEFT IJ tunneled catheter exchanged RIGHT brachiocephalic arteriovenous fistula creation (Right: Arm Upper) Pro Barr MD 01/10/25 1351 01/10/25 1605 Events Date Time Event Comment 01/10/2025 1351 An Start Patient identif ied and chart reviewed. 1351 An Start Data Anesthesia mac zara and monitors checked. 1352 Pre-Induction Eval FDA anest hesia machine pre-use checkout completed. Patient status reassessed prior to start of anesthesia care. 1353 Quick Note Discussed plan with patient; Patient arrested Jul 2024 when sedated for procedure; Received supraclavicular block in preop without sedation; Exchange of dialysis catheter will occur with local infiltration per surgeon; Plans for no sedation to be given; Patient voices agreement 1356 Anesthesia Ready 1558 Quick Note Pulse ox artifa ct 1603 Handoff to Receiving I compl eted my handoff to the receiving clinician during which we: 1. Identified the patient. 2. Identified the responsible provider. 3. Reviewed the pertinent medical history. 4. Discussed the surgical course. 5. Reviewed intra-op anesthesia management and issues during anesthesia. 6. Set expectations for post-procedure period. 7. Allowed opportunity for questions and acknowledgement of understanding. 1605 An Stop 01/11/2025 1022 an stop data Meds Name Total mepivacaine PF (POLOCAINE) injection 2% 15 mL ropivacaine PF (NAROPIN) injection 0.5 % 15 mL EPINEPHrine (ADRENALIN) injection 1 mg/m L 150 mcg ceFAZolin (ANCEF) 3 g in sodium chloride 0.9% (NS) IVPB CMPD (PMX) 3 g heparin injection 1,000 units/mL for IV bolus/dialysis lock 6,000 Units ondansetron (ZOFRAN) injection 4 mg 8 mg sodium chloride 0.9% (NS) infusion 250 m L * Agents Name Auxiliary O2 O2 N2O Air * Blood No blood administrations on file. Lines, Drains, and Airways Type Details Placement Removal Hemodialysis Access 04/20/23; Baljinder fraire MD; Arteriovenous fistula; Left; Arm 04/20/23 0000 by Shailesh Thapa RN External Urinary Catheter 07/25/24; 0900 07/25/24 0900 by Ciarra Zaldivar RN Wound 01/10/25; 1542; Incision; Arm; Right 01/10/25 1542 by Kristina Peralta RN Hemodialysis Access 05/24/24; 1649; Alejandro Brower MD; Internal jugular catheter, Tunneled; Left; Jugular; Sutured; Tolerated well; No longer present on patient during assessment 05/24/24 1649 by Shailesh Thapa RN 01/12/25 1128 by Brian Collins RN Wound 07/19/24; 0837; Incision; Arm; Left; 01/12/25; 1130 07/19/24 0837 by Mitzy Ellis RN 01/12/25 1130 by Brian Collins RN Hemodialysis Cath Double Lumen 01/10/25; 1000; Subclavian vein catheter, Other (Comment) (HD Catheter); Left; Subclavian; Taped 01/10/25 1000 by Brian Collins RN 01/18/25 1618 by Automatic Discharge Provider Peripheral IV Placement Date: 01/10/25; Placement Time: 1318; Orientation: Anterior, Left; Location: Forearm; Site Prep: Chlorhexidine ; Insertion attempts: 1; Removal Date: 01/10/25; Removal Time: 17301/10/25 1318 by Denise Buck RN 01/10/25 1730 by Macie Nazario RN documented in this encounter Social History Tobacco Use Types Packs/Day Years [...] place to sleep or slept in a residential (including now)? Patient refused 12/18/2022 Utilities Answer Date Recorded In the past 12 months, has t he [employer], [employer], oil, or [employer] threatened to shut off services in your home? No 01/12/2025 Interpersonal Safety Answer Date Record ed How often does anyone, josué kay family and friends, physically hurt you? Never 01/12/2025 How often does anyone, josué kay family and friends, insult or talk down to you? Never 01/12/2025 How often does anyone, josué kay family and friends, threaten you with harm? Never 01/12/2025 How often does anyone, josué kay family and friends, scream or curse at you? Never 01/12/2025 Housing Stability Answer Date Recorded What is your living situation today? I have a [facility] place to live 01/12/[address] you li ve. Do you have problems with any of the following? None of the above 01/12/2025 Food Insecurity Answer Date Recorded Within the past 12 months, y ou worried that your food would run out before you got money to buy more. Never true 01/12/2025 Within the past 12 months, t he food you bought just didn't last and you didn't have money to get more. Never true 01/12/2025 Transportation Needs Answer Date Record ed In the past 12 months, has l ack of reliable transportation kept you from medical appointments, meetings, work or from getting things needed for daily living? No 01/12/2025 Financial Resource Strain Answer Date R ecorded How hard is it for you to pa y for the very basics like food, housing, medical care, and heating? Would you say it is: Not hard at all 01/12/2025 Employment Answer Date Recorded Do you want help finding or keeping work or a job? I do not need or want help 01/12/2025 Family and Community Support Answer Emeterio e Recorded If for any reason you need h elp with day-to-day activities such as bathing, preparing meals, shopping, managing finances, etc., do you get the help you need? I get all the help I need 01/12/2025 Feeling Lonely or Isolated 0 01/12 Educational Attainment Answer Date Earl rded Do you speak a language other than Gibraltarian at ho sd? No 01/12/2025 Do you want help with school or training? For example, starting or completing job training or getting a high school diploma, GED or equivalent. No 01/12/2025 Physical Activity Answer Date Recorded Number of minutes of exercise per week 0 01/12/2025 Alcohol Use Answer Date Recorded 5 or More Drinks Per Day Past 12 Months 0 01/12/2025 Depression Answer Date Recorded Calculation of above two rows 0 Stress Answer Date Recorded Stress means a situation in which a person feels tense, restless, nervous, or anxious, or is unable to sleep at night because his or her mind is troubled all the time. Do you feel this kind of stress these days? Not at all 01/12/2025 Disabilities Answer Date Recorded Because of a physical, menta l, or emotional condition, do you have serious difficulty concentrating, remembering, or making decisions? (5 years or older) No 01/12/2025 Because of a physical, menta l, or emotional condition, do you have difficulty doing errands alone such as visiting a doctor's office or shopping? (15 years or older) No 01/12/2025 Substance Use Answer Date Recorded How many times in the past y ear have you used prescription drugs for non-medical reasons? Never 01/12/2025 How many times in the past year have you used [place] legal drugs? Never 01/12/2025 Comments Unknown Sex and Gender Information Value Date Recorded Sex Assigned at Not on file Legal Sex Female 5:37 PM CDT Gender Identity Not on file Sexual Orientation Not on file documented as of this encounter OR Notes * Anesthesia Postprocedure Evaluation - Fred Underwood CRNA - 01/10/2025 4:04 PM EDT Patient: Carla Burkett Procedure Summary Date: 01/10/25 Room / Location: [facility] OR [address] [place] [address] OPERATING ROOM Anesthesia Start: 1351 Anesthesia Stop: Procedure: (RT UPPER EXTREMITY BRACHIOCEPHALIC AV FISTULA CREATION, AND TUNNELLED DIALYSIS CATHETERINSERTION. (Right) Diagnosis: Other specified complication of vascular prosthetic devices, implants and grafts, initial encounter(HCC) (Other specified complication of vascular prosthetic devices) Surgeons: Baljinder Sloan MD Responsible Provider: Pro Barr MD Anesthesia Type: MAC ASA Status: 4 Anesthesia Type: MAC Vitals Value Taken Time BP 165/76 01/10/25 1604 Temp NA 01/10/25 1604 Pulse 98 01/10/25 1604 Resp 20 01/10/25 1604 SpO2 94% 01/10/25 1604 Ht 1.676 m (5' 6 ) Wt 121.6 kg (268 lb) BMI 43.26 kg/m?? Anesthesia Post Evaluation Patient location during evaluation: bedside Patient participation: complete - patient participated Level of consciousness: awake Pain management: adequate Multimodal analgesia pain management approach Airway patency: patent Cardiovascular status: stable Respiratory status: nasal cannula Hydration status: stable Color: Elliott Activity: Limited RUE nerve block Inotropes/Vasopressors: N/A No notable events documented. Fred Underwood CRNA 01/10/2025 4:04 PM EDT * Anesthesia Procedure Notes - Agueda Flower MD - 01/10/2025 1:43 PM EDT Associated Order(s): Peripheral Nerve Block Peripheral Nerve Block Authorized by: Agueda Flower MD Performed by: Agueda Flower MD Patient location during procedure: pre-op Start time: 01/10/2025 1:30 PM End time: 01/10/2025 1:43 PM Reason for block: at surgeon's request Preanesthetic Checklist Completed: patient identified, IV checked, site marked, risks and benefits discussed, surgical consent, monitors and equipment checked, pre-op evaluation and timeout performed Peripheral Block Patient position: supine Prep: ChloraPrep Patient monitoring: heart rate, cable spooler and continuous pulse ox Block type: supraclavicular Laterality: right Injection technique: single-shot Guidance: ultrasound guided Needle Needle type: Stimuplex insulated Echogenic Needle 4 in 20 G. Needle gauge: 20 G Needle length: 10 cm Needle localization: ultrasound guidance Needle insertion depth: 7 cm Medications Administered mepivacaine PF (POLOCAINE) injection 2% - perineural 15 mL - 01/10/2025 1:30:00 PM ropivacaine PF (NAROPIN) injection 0.5 % - perineural 15 mL - 01/10/2025 1:30:00 PM EPINEPHrine (ADRENALIN) injection 1 mg/mL - perineural 150 mcg - 01/10/2025 1:30:00 PM Assessment Injection assessment: negative aspiration for heme, no paresthesia on injection, incremental injection and local visualized surrounding nerve on ultrasound Heart rate change: no Slow fractionated injection: yes * Anesthesia Preprocedure Evaluation - Agueda Flower MD - 01/10/2025 8:07 AM EDT Anesthesia Pre Evaluation Ms. Carla Burkett is a 54 y.o. female being evaluated for the following: Date/Time: 01/10/25 1059 Procedure: (RT UPPER EXTREMITY BRACHIOCEPHALIC AV FISTULA CREATION) (Right) Location: [facility] OR 20 / [facility] OPERATING ROOM Surgeons: Baljinder Sloan MD Relevant Problems ANESTHESIA (+) SHAYLA (obstructive sleep apnea) CARDIOVASCULAR (+) CAD (coronary artery disease) (+) CHF (congestive heart failure) ([facility]) (+) Cardiac arrest ([facility]) (+) HTN (hypertension) (+) Type 2 diabetes mellitus with diabetic peripheral angiopathy without gangrene (HCC) ENDOCRINE (+) Type 2 diabetes mellitus with diabetic peripheral angiopathy without gangrene ([facility]) GASTROINTESTINAL (+) GERD (gastroesophageal reflux disease) /RENAL (+) CKD (chronic kidney disease) stage 3, GFR 30-59 ml/min ([facility]) (+) Chronic kidney disease, unspecified (+) Dependence on renal dialysis ([facility]) (+) Hemodialysis patient ([facility]) (+) Hypertensive chronic kidney disease with stage 5 chronic kidney disease or end stage renal disease ([facility]) NEURO/PSYCH (+) Anxiety (+) Depression, unspecified RESPIRATORY SYSTEM (+) Smoker 07/2024 S/p cardiac arrest could be secondary to sedation. By reviewing her morning labs she has no hyperkalemia or acidosis. She is currently alert and oriented. Echo postcardiac arrest showed ejection fraction of 75??5. Troponin is negative x 2. EKG no acute abnormalities. She has a past medical history of C. difficile colitis, Cardiac arrest ([facility]) (07/19/2024), CHF (congestive heart failure) ([facility]) (01/19/2024), Chronic kidney disease, Coronary artery disease-heart stents x 2 2019, CTS (carpal tunnel syndrome)left, Depression, Diabetes mellitus (HCC), ESRD (end stagerenal disease) on dialysis (HCC)//thu, Hyperlipidemia, unspecified (10/06/2022), Hypertension, Kidney failure, Obstructive sleep apnea, Osteomyelitis (HCC) resolved, Peripheral vascular disease due to secondary diabetes (HCC), Post- menopausal, and Wound of right foot wrapped. Clinical information reviewed: NPO Status No data recorded Physical Exam Airway Mallampati: III TM distance: >3 FB Neck ROM: full Cardiovascular - normal exam Dental (+) upper dentures, lower dentures Pulmonary - normal exam Abdominal Other findings: smoker Anesthesia Plan ASA 4 Planned anesthetic: MAC (Supraclavicular Nerve block) Anesthesia Plan Factors- The patient is not a current smoker. Patient was not previously instructed to abstain from smoking on day of procedure. Patient did not smoke on day of procedure. Induction: intravenous Informed Consent- Anesthetic plan and risks discussed with patient. documented in this encounter Plan of Treatment Not on file documented as of this encounter Procedures Procedure Name Priority Date/Time Associated Diagnosis Comments HC PERIPHERAL NERVE BLOCK SINGLE SHOT Routine 01/10/2025 1:30 PM EDT documented in this encounter Results * HC PERIPHERAL NERVE BLOCK SINGLE SHOT (01/10/2025 1:30 PM EDT) Narrative Agueda Flower MD - 01/10/2025 1:30 PM EDT Agueda Flower MD 01/10/2025 1:44 PM Peripheral Nerve Block Authorized by: Agueda Flower MD Performed by: Agueda Flower MD Patient location during procedure: pre-op Start time: 01/10/2025 1:30 PM End time: 01/10/2025 1:43 PM Reason for block: at surgeon's request Preanesthetic Checklist Completed: patient identified, IV checked, site marked, risks and benefits discussed, surgical consent, monitors and equipment checked, pre-op evaluation and timeout performed Peripheral Block Patient position: supine Prep: ChloraPrep Patient monitoring: heart rate, cable spooler and continuous pulse ox Block type: supraclavicular Laterality: right Injection technique: single-shot Guidance: ultrasound guided Needle Needle type: Stimuplex insulated Echogenic Needle 4 in 20 G. Needle gauge: 20 G Needle length: 10 cm Needle localization: ultrasound guidance Needle insertion depth: 7 cm Medications Administered mepivacaine PF (POLOCAINE) injection 2% - perineural 15 mL - 01/10/2025 1:30:00 PM ropivacaine PF (NAROPIN) injection 0.5 % - perineural 15 mL - 01/10/2025 1:30:00 PM EPINEPHrine (ADRENALIN) injection 1 mg/mL - perineural 150 mcg - 01/10/2025 1:30:00 PM Assessment Injection assessment: negative aspiration for heme, no paresthesia on injection, incremental injection and local visualized surrounding nerve on ultrasound Heart rate change: no Slow fractionated injection: yes us Agueda Flower MD ANESTHESIA ORDERABLES Final Re sult documented in this encounter Visit Diagnoses Not on filedocumented in this encounter Administered Medications Inactive Administered Medications - up to 3 most recent administrations Medication Order MAR Action Action Date Dose Rate Site ceFAZolin (ANCEF) 3 g in sodium chloride 0.9% (NS) IVPB CMPD (PMX) 3 g Once, intravenous, Administer over 60 Minutes, On Thu01/10/25 at 1400, For 1 dose, Administer within 60 minutes of incision or procedure start., Pre-op, Please choose an indication: Surgical Prophylaxis Given 01/10/2025 1:57 PM EDT 3 g EPINEPHrine (ADRENALIN) injection perineural, Starting on Thu01/10/25 at 1330, Anesthesia Intra-op Given 01/10/2025 1:30 PM EDT 150 mcg heparin 1,000 Units/mL injection As needed, intravenous, Starting on Thu01/10/25 at 1512, Anesthesia Intra-op Given 01/10/2025 3:12 PM EDT 6,000 Units mepivacaine PF (POLOCAINE) 2 % (20 mg/mL) injection perineural, Starting on Thu01/10/25 at 1330, Anesthesia Intra-op Given 01/10/2025 1:30 PM EDT 15 mLs ondansetron (ZOFRAN) injection 4 mg 4 mg Every 12 hours PRN, intravenous, nausea, vomiting, Starting on Thu01/10/25 at 1401, For IV push, give over 2 - 5 minutes. Given 01/10/2025 4:00 PM EDT 4 mg Given 01/10/2025 3:22 PM EDT 4 mg ropivacaine PF (NAROPIN) 0.5 % (5 mg/mL) injection perineural, Starting on e 01/10/25 at 1330, Anesthesia Intra-op Given 01/10/2025 1:30 PM EDT 15 mLs sodium chloride 0.9 % infusion Continuous PRN, intravenous, Starting on Thu01/10/25 at 1351, Anesthesia Intra-op New Bag 01/10/2025 1:51 PM EDT documented in this encounter Additional Health Concerns Infection Onset Date Last Indicated Resolved Time 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
--- OUTSIDE RECORDS SUMMARY | 2025-01-11 11:35 | XMS_ITS | Encounter Summary ---
Author Organization [facility] Init iatives Address [address] [place] [address] Care Team Providers Care Business Education Professor Name Role Phone Wally Yoo MD Primary Care Provider + Reason for Visit * Reason Comments Generalized Weakness, Not Associated Wit h Extremities * Auth/Cert (Routine) Specialty Diagnoses / Procedures Referred By Meg kumar Referred To Contact Diagnoses Primary hypertension Persistent vomiting in adult patient Generalized weakness Chronic renal failure, unspecified CKD stage Nausea and vomiting, unspecified vomiting type [address] [place] [address] Phone: tel: fax: [address] [place] [address] Phone: tel: fax: Referral ID Status Reason Start Date Expiration Date Visits Re quested Visits Authorized [id number] 1 1 Encounter Details Date Type Department Care Team (Late st Contact Info) Description 01/11/2025 11:35 AM EDT - 01/14/2025 4:17 PM EDT Hospital Encounter [address] [place] [address] Benedict Fleming MD [address] [place] [address] Olegario Varghese PA-C [address] [place] [id number] Mckenzie Yang DO [address] [facility] [address] [place] [address] [id number] Gabino Esteban MD [address] [facility] [address] [place] [id number] Karla Mosley MD 14[address] [facility] [address] [place] [phone] Generalized weakness (Primary Dx); Primary hypertension; Nausea [...] place to sleep or slept in a group home (including now)? Patient refused 12/18/2022 Utilities Answer Date Recorded In the past 12 months, has t he electric, gas, oil, or water company threatened to shut [...] Do you speak a language other than Turkish at [facility]? No 01/12/2025 Do you want help with [...] in this encounter Discharge Summaries * Mckenzie Yang DO - 01/14/2025 10:38 AM EDT [facility] Discharge Summary Patient Name: Carla Burkett : 1970 Date of Admission: 01/11/2025 Date of Discharge: 01/14/2025 Primary Care Physician: Wally Yoo MD Hospital Course Mailroom Clerk(s): Nephrology Discharge Diagnosis: End-stage renal disease Persistent [...] Medicine Relationship: PCP - General [address] [facility] [address] Next Steps: Follow up Time Spent on Discharge: I spent 35 minutes in [id number]-jc-[id number] time with the patient and nursing staffconcerning [...] sudden changes or concerns. Electronically signed by: Mkcenzie Yang DO 01/14/2025, 10:38 AM [facility] * Karla Mosley MD - 01/13/2025 10:10 AM EDT Discharge Summary [facility] 01/13/2025 10:10 AM Patient Name: Carla Burkett [...] disease who presents to [facility] in [place], [place] for further evaluation and management of [...] Head CT showed no hemorrhage ESRD -Appreciate recommendations. -Reviewed chest x-ray left [...] Procedures: Hemodialysis Anti-infectives: None Discharge Examination: Vitals: 01/12/25200401/12/25 2305 01/13/25 0400 01/13/25 0830 BP: (!) [...] ensuring adequate followup, along with documentation. This shade bander was electronically signed. It was dictated by use of voice recognition software and electronically transcribed. The shade bander may contain errors not detected in proofreading. Karla Mosley [email or web address] This has been electronically signed by: [facility] inpatient Specialists documented in this encounter Discharge Instructions * Discharge Instr - Activity* Yvonne Hawk RN - 01/13/2025 12:16 PM EDT As tolerated * Discharge Instr - Diet* Yvonne Hawk RN - 01/13/2025 12:16 PM EDT Renal * Attachments The following attachments cannot be sent through Care Everywhere. * End-Stage Kidney Disease (Turkish) documented in this encounter Medications at Time [...] night as needed for muscle spasms. insulin aspart U-100 (NovoLOG) 100 unit/mL (3 mL) inpn Inject under the skin 3 (three) times daily before meals Sliding scale. documented as of this encounter Progress Notes * Shanique Amaya RN - 01/14/2025 3:42 PM EDT Handover report called to Yvonne at [facility]. [facility] will transport. * David Courtney RN [...] Relationship: PCP - General [address] [facility] [address] Next Steps: Follow up [facility] Specialty: [facility] [address] [place] [phone] Next Steps: Follow up Transporation Provider: DEMOND Root Contact Name: Transportation Provider Phone: Date of drupal developer: (P) 01/14/25 Time of drupal developer: (P) 1540 HD# 3. Confirmed with Yvonne from [facility] that they are able and willing to accept pt at her [place] facility this 01/14. Faxed summary ti [phone]. Arranged DEMOND for pick ay 1540. David [...] Mosley MD - 01/13/2025 1:09 PM EDT [facility] Inpatient Specialists Progress Note Patient Name: Carla Burkett : 1970 Date of Admission: 01/11/2025 Date of Service: 01/13/2025 PMD: Wally Yoo MD Hospital Course: 54 y.o. female with a history of renal disease on dialysis, CHF, diabetes, hypertension, peripheralvascular disease who presented to [facility] in [place], [place] for further evaluation and management of [...] Endocrine: No polyuria , polydipsia , polyphagia. SUSTAINMENT LOGISTICS ANALYST: Denies any confusion , headache , or [...] mg oral Daily 81 mg at 01/13/25 08 atorvastatin 40 mg oral Every Night 40 [...] vomiting in adult patient 01/11/2025 Cardiac arrest ([facility]) 07/19/2024 CHF (congestive heart failure) ([facility]) 01/19/2024 Diabetic neuropathy ([facility]) 01/19/2024 Smoker 01/19/2024 Hemodialysis patient ([facility]) 01/19/2024 Hypertensive chronic kidney disease with stage 5 chronic kidney disease or end stage renal disease ([facility]) 08/13/2023 Displaced intertrochanteric fracture of left femur, initial encounter for closed fracture ([facility]) 08/08/2023 Supracondylar fracture of distal end of femur with intracondylar extension ([facility]) 08/08/2023 Anxiety 07/20/2023 GERD (gastroesophageal reflux disease) 07/20/2023 SHAYLA (obstructive sleep apnea) 07/20/2023 Other pericardial effusion (noninflammatory) 01/01/2023 Pleural effusion 12/17/2022 Pericardial effusion 12/17/2022 Nausea 11/04/2022 Anaphylactic shock, unspecified, initial encounter 10/08/2022 Anemia in chronic kidney disease 10/06/2022 Chronic kidney disease, unspecified 10/06/2022 Dependence on renal dialysis ([facility]) 10/06/2022 Depression, unspecified 10/06/2022 Hyperlipidemia, unspecified 10/06/2022 Iron deficiency anemia, unspecified 10/06/2022 assistant terminal manager (current) use of insulin ([facility]) 10/06/2022 Morbid (severe) obesity due to excess calories ([facility]) 10/06/2022 Type 2 diabetes mellitus with diabetic peripheral angiopathy without gangrene ([facility]) 10/06/2022 CKD (chronic kidney disease) stage 3, GFR 30-59 ml/min ([facility]) 06/18/2020 Microalbuminuria 06/18/2020 CAD (coronary artery disease) 07/08/2016 HTN (hypertension) 07/08/2016 Medical decision making: Persistent nausea vomiting/headache: Improved and resolved Tolerated full breakfast well Wide differential Symptomatic treatment With Carafate. SSRIs Tylenol Phenergan. - Head CT showed no hemorrhage Patient still vomiting refuses to go home for hemodialysis later in today ESRD -Appreciate Dr.Sara brewer. -Reviewed chest x-ray [...] Time spent: 38+ minute not only including [id number] rounding putting in the orders writing the note and all the conversation reviewing the records This shade bander was electronically signed. It was dictated by use of voice recognition software and electronically transcribed. The shade bander may contain errors not detected in proofreading. Disposition: Home This has been electronically signed by: @[facility]@ Karla Mosley [email or web address] inpatient inpatient Specialists 01/13/2025 * Nataliya Cain MD - 01/13/2025 10:35 AM EDT Images from the original note were not included. Subjective: Patient was seen and examined with all infection control measures.+ nausea. Hospital Course: 54 year old female well-known to my practice with a past medical history of end- stage renal diseaseon chronic hemodialysis on a MWF schedule at [facility] dialysis clinic in [facility] who presented to [facility] emergency department being a and having nausea, vomiting, and epigastric discomfort as well as generalized weakness. She presented earlier to her dialysis treatment [facility] dialysis clinic but her treatment could not be proceeded due to her illness. Apparently she had a tunneled hemodialysis catheter exchanged a day before this admission as her old dialysis catheter was partially pulled out with some erythema and redness around the old catheter exit site. She is being admitted to [facility] for further evaluation and I was [...] mg total) by mouth daily. 04/10/24 Historical ProviderMD carvediloL (COREG) 12.5 MG tablet Take 1 tablet (12.5 mg total) by mouth 2 (two) times daily. 12/06/22 Historical ProviderMD diphenhydrAMINE (BENADRYL) 25 mg tablet Take 1 [...] Take 17 g by mouth daily. Historical ProviderMD prasugreL (EFFIENT) 10 mg tab tablet Take [...] Daily, Olegario Varghese PA-C, 10 mg at 01/13/2530 aspirin EC tablet 81 mg, 81 mg, [...] Olegario Varghese PA-C, 300 mg at 01/12/25 2002 glucagon injection 1 mg, 1 mg, intraMUSCULAR, [...] 0-6 Units, 0-6 Units, subcutaneous, 4x Daily Hannah PEREZ PA-C isosorbide mononitrate (IMDUR) 24 hr tablet [...] POC-GLUCOSE 112 (H) 70 - 110 mg/dL Dinkey Engine Mechanic [id number] CBC with automated diff Collection Time: 01/11/25 [...] 102 BPM ATRIAL RATE (MCT) 106 BPM AL Interval 164 ms QRS-INTERVAL (MSEC) 84 ms QT Interval 332 ms QTC Interval 432 ms P [place] 54 degrees R AXIS (MCT) 20 degrees T Wave [place] 44 degrees [place] Diagnosis Age and gender specific ECG analysis Sinus tachycardia Low voltage QRS Borderline ECG When compared with ECG of 21-JUL-2024 08:41, No significant change was found Glucose, Nova Meter Collection Time: 01/11/25 6:12 PM Result Value Ref Range POC-GLUCOSE 116 (H) 70 - 110 mg/dL Dinkey Engine Mechanic [id number] Glucose, Nova Meter Collection Time: 01/11/25 8:56 PM Result Value Ref Range POC-GLUCOSE 103 70 - 110 mg/dL Dinkey Engine Mechanic [id number] Glucose, Nova Meter Collection Time: 01/12/25 5:35 AM Result Value Ref Range POC-GLUCOSE 103 70 - 110 mg/dL Dinkey Engine Mechanic [id number] Glucose, Nova Meter Collection Time: 01/12/25 11:21 AM Result Value Ref Range POC-GLUCOSE 106 70 - 110 mg/dL Dinkey Engine Mechanic [id number] Glucose, Nova Meter Collection Time: 01/12/25 5:04 PM Result Value Ref Range POC-GLUCOSE 98 70 - 110 mg/dL Dinkey Engine Mechanic [id number] Glucose, Nova Meter Collection Time: 01/12/25 8:27 PM Result Value Ref Range POC-GLUCOSE 110 70 - 110 mg/dL Dinkey Engine Mechanic [id number] Glucose, Nova Meter Collection Time: 01/13/25 5:54 AM Result Value Ref Range POC-GLUCOSE 111 (H) 70 - 110 mg/dL Dinkey Engine Mechanic [id number] CBC with automated diff Collection Time: 01/13/25 [...] chronic hemodialysis on a MWF schedule at [facility] dialysis clinic in [facility] who presented to [facility] emergency department being a and having nausea, vomiting, and epigastric discomfort as well as generalized weakness. She presented earlier to her dialysis treatment [facility] dialysis clinic but her treatment could not be proceeded due to her illness. Apparently she had a tunneled hemodialysis catheter exchanged a day before this admission as her old dialysis catheter was partially pulled out with some erythema and redness around the old catheter exit site. She is being admitted to [facility] for further evaluation and I was [...] mg total) by mouth daily. 12/12/22 Historical ProviderMD aspirin 81 MG EC tablet Take 1 [...] mg total) by mouth daily. 04/10/24 Historical ProviderMD carvediloL (COREG) 12.5 MG tablet Take 1 [...] mouth 2 (two) times daily. Historical Provider, MD fexofenadine (DANIELLE) 180 MG tablet Take 1 [...] Historical ProviderMD Current Medications: Current Facility-Administered Medications: acetaminophen (TYLENOL) tablet 1,000 mg, 1,000 mg, oral, Q6H PRN, Olegario Varghese PA-C amLODIPine (NORVASC) tablet 10 mg, 10 mg, oral, Daily, Olegario Varghese PA-C, 10 mg at 01/12/25933 aspirin EC tablet 81 mg, 81 mg, oral, Daily, Olegario Varghese PA-C, 81 mg at 01/12/25933 atorvastatin (LIPITOR) tablet 40 mg, 40 mg, oral, Every Night, Olegario Varghese PA-C, 40 mg at 01/12/2513 bisacodyL (DULCOLAX) EC tablet 10 mg, 10 [...] oral, Daily, SHERLY Young, 1,500 mg at 01/12/25933 carvediloL (COREG) tablet 12.5 mg, 12.5 mg, oral, BID, Olegario Varghese PA-C, 12.5 mg at 01/12/25932 dextrose 50% (D50W) injection 25 g, 25 g, intravenous, Q15 Min PRN, Olegario Varghese PA-C diphenhydrAMINE (BENADRYL) capsule 25 mg, 25 mg, oral, TID PRN, Olegario Varghese PA-C famotidine (PEPCID) tablet 20 mg, 20 mg, oral, BID, Olegario Varghese PA-C, 20 mg at 01/12/25932 gabapentin (NEURONTIN) capsule 300 mg, 300 mg, oral, Every Night, Olegario Varghese PA-C, 300 mg at 01/12/2513 glucagon injection 1 mg, 1 mg, intraMUSCULAR, [...] 17 g, 17 g, oral, Daily PRN, Oleagrio Varghese PA-C prasugreL HCl (EFFIENT) tablet 10 [...] POC-GLUCOSE 112 (H) 70 - 110 mg/dL Dinkey Engine Mechanic [id number] CBC with automated diff Collection Time: 01/11/25 [...] 102 BPM ATRIAL RATE (MCT) 106 BPM AL Interval 164 ms QRS-INTERVAL (MSEC) 84 ms QT Interval 332 ms QTC Interval 432 ms P [place] 54 degrees R AXIS (MCT) 20 degrees T Wave [place] 44 degrees [place] Diagnosis Age and gender specific ECG analysis Sinus tachycardia Low voltage QRS Borderline ECG When compared with ECG of 21-JUL-2024 08:41, No significant change was found Glucose, Nova Meter Collection Time: 01/11/25 6:12 PM Result Value Ref Range POC-GLUCOSE 116 (H) 70 - 110 mg/dL Dinkey Engine Mechanic [id number] Glucose, Nova Meter Collection Time: 01/11/25 8:56 PM Result Value Ref Range POC-GLUCOSE 103 70 - 110 mg/dL Dinkey Engine Mechanic [id number] Glucose, Nova Meter Collection Time: 01/12/25 5:35 AM Result Value Ref Range POC-GLUCOSE 103 70 - 110 mg/dL Dinkey Engine Mechanic [id number] Glucose, Nova Meter Collection Time: 01/12/25 11:21 AM Result Value Ref Range POC-GLUCOSE 106 70 - 110 mg/dL Dinkey Engine Mechanic [id number] Imaging: CT ABDOMEN/PELVIS WITHOUT IV CONTRAST Standard [...] 01/12/25 1005 Home Environment Type of Residence half-way Support Systems Family members;Friends/neighbors Accessibilty Issues None Agency Type Handicrafts Teacher Care Handicrafts Teacher Care Name and Number [facility] Patient returning to prior living situation? Yes Affect Behavior Appropriate Prior/Regular Transportation Wheelchair van Needs Assistance with Transportation Yes ADL Assessment Assistive Devices Walker;Wheelchair Transition Needs Home or Post Acute Services Post acute facilities (Rehab/SNF/etc) Type of Post Acute Facility Services assistant terminal manager care Does the patient have the ability to fill and receive their discharge medications? Yes Discharge Plan Discussed The discharge plan was discussed with patient. Discharge Plan Outcome Patient/family industrial sales representative agrees with the discharge plan Discharge Barriers None Type of Assistive Devices Needed for Discharge None Patient Discharge Goal Home Mandated Reporting Not applicable CM spoke with pt at bedside, pt resides at [facility], has used HH in the past unable tanjaer name, uses a W/C, and sometimes a FWW. Pt will need transportation back to residential. [facility] [phone] will be here to pick pt up, [...] 102 BPM ATRIAL RATE (MCT) 106 BPM AL Interval 164 ms QRS-INTERVAL (MSEC) 84 ms QT Interval 332 ms QTC Interval 432 ms P [place] 54 degrees R AXIS (MCT) 20 degrees T Wave [place] 44 degrees [place] Diagnosis Age and gender specific ECG analysis Sinus tachycardia Low voltage QRS Borderline ECG When compared with ECG of 21-JUL-2024 08:41, No significant change was found Glucose, Nova Meter Status: Abnormal Collection Time: 01/11/25 6:12 PM Result Value Ref Range POC-GLUCOSE 116 (H) 70 - 110 mg/dL Dinkey Engine Mechanic [id number] Glucose, Nova Meter Status: None Collection Time: 01/11/25 8:56 PM Result Value Ref Range POC-GLUCOSE 103 70 - 110 mg/dL Dinkey Engine Mechanic [id number] Glucose, Nova Meter Status: None Collection Time: 01/12/25 5:35 AM Result Value Ref Range POC-GLUCOSE 103 70 - 110 mg/dL Dinkey Engine Mechanic [id number] Radiology: CT ABDOMEN/PELVIS WITHOUT IV CONTRAST Standard [...] mg oral Daily 81 mg at 01/11/25 1757 atorvastatin 40 mg oral Every Night 40 mg at 01/12/25 0014 calcitonin (salmon) 1 spray one nostril Daily 1 spray at 01/11/25 1802 calcium carbonate 1,500 mg oral Daily 1,500 mg at 01/11/25 1801 carvediloL 12.5 mg oral BID 12.5 mg at 01/12/25 0014 famotidine 20 mg oral BID 20 mg at 01/12/25 0014 gabapentin 300 mg oral Every Night 300 mg at 01/12/25 0014 insulin lispro 0-6 Units subcutaneous 4x Daily AC isosorbide mononitrate 30 mg oral Daily 30 mg at 01/11/25 1813 metoclopramide 10 mg oral TID AC 10 mg at 01/11/25 1757 prasugreL HCl 10 mg oral Daily 10 [...] Olegario Varghese PA-C 81 mg at 01/11/25 1757 atorvastatin (LIPITOR) tablet 40 mg 40 mg oral Every Night Olegario Varghese PA-C 40 mg at 01/12/25 0014 bisacodyL (DULCOLAX) EC tablet 10 mg 10 [...] Olegario Varghese PA-C 12.5 mg at 01/12/25 001 dextrose 50% (D50W) injection 25 g 25 g intravenous Q15 Min PRN Olegario Varghese PA-C diphenhydrAMINE (BENADRYL) capsule 25 mg 25 mg oral TID PRN Olegario Varghese PA-C famotidine (PEPCID) tablet 20 mg 20 mg oral BID Olegario Varghese PA-C 20 mg at 01/12/25 001 gabapentin (NEURONTIN) capsule 300 mg 300 mg [...] Olegario Varghese PA-C 30 mg at 01/11/25 1813 labetaloL (TRANDATE, NORMODYNE) injection 10 mg 10 [...] Head CT showed no hemorrhage ESRD -Appreciate Dr.Payton recommendations -Reviewed chest x-ray left tunneled dialysis [...] disease who presents to [facility] in [place], [place] for further evaluation and management of [...] Diagnosis Date C. difficile colitis Cardiac arrest ([facility]) 07/19/2024 CHF (congestive heart failure) ([facility]) 01/19/2024 Chronic kidney disease Coronary artery disease-heart stents x 2 2019 CTS (carpal tunnel syndrome)left Depression Diabetes mellitus (HCC) ESRD (end stage renal disease) on dialysis ([facility]) Hyperlipidemia, unspecified 10/06/2022 Hypertension Kidney failure Obstructive sleep apnea Osteomyelitis ([facility]) resolved Peripheral vascular disease due to secondary diabetes ([facility]) Post-menopausal Wound of right foot wrapped Past Surgical History: Past Surgical History: Procedure Laterality Date AMPUTATION,TOE Right BELOW KNEE LEG AMPUTATION Left toes first then debridement CARPAL TUNNEL RELEASE Right CREATION,A-V FISTULA Right 01/10/2025 Procedure: LEFT IJ tunneled catheter exchanged RIGHT brachiocephalic arteriovenous fistula creation; Surgeon: Baljinder Sloan MD; Location: [facility]; Service: Vascular Surgery; Laterality: Right; CREATION,PERICARDIAL WINDOW N/A 12/19/2022 Procedure: CREATION, PERICARDIAL WINDOW; Surgeon: Bogdan Hernandez IV, MD; [facility]; Service: CV Surgery; Laterality: N/A; AO#3, AVAIL TF, 3HR(A) GALLBLADDER SURGERY heart stents INSERTION,DIALYSIS CATHETER KNEE ARTHROSCOPY Right ORIF,FEMUR Left 08/10/2023 Procedure: ORIF LT FEMUR); Surgeon: Otf Birmingham MD; [facility]; Service: Orthopaedic Surgery; Laterality: Left; AO# 4, AVAIL TF melvi left hip TONSILLECTOMY TRANSPOSITION,VEIN Left 04/20/2023 Procedure: (LT UPPER EXTREMITY AV FISTULA); Surgeon: Baljinder Sloan MD; [facility]; Service: Vascular; Laterality: Left; [...] she can tolerate hydrocodone (verified 12/19/22) Documented RIVET BUCKER Medications: (Not in a hospital admission) Review [...] 102 BPM ATRIAL RATE (MCT) 106 BPM AL Interval 164 ms QRS-INTERVAL (MSEC) 84 ms QT Interval 332 ms QTC Interval 432 ms P [place] 54 degrees R AXIS (MCT) 20 degrees T Wave [place] 44 degrees [place] Diagnosis Age and gender specific ECG analysis Sinus tachycardia Low voltage QRS Borderline ECG When compared with ECG of 21-JUL-2024 08:41, No significant change was found Microbiology Results (last 7 days) Procedure Component Value Units Date/Time COVID ANTIGEN [[id number]] (Normal) Collected: 01/11/25 114 Order Status: Completed Specimen: Nasal Swab Updated: 01/11/25 1240 SARS COVID ANTIGEN Negative Narrative: The BD Veritor System for Rapid Detection of SARS-CoV-2 does not differentiate between SARS-CoV [id number].The BD Veritor System for Rapid Detection of [...] high likelihood of SARS-CoV-2 infection. Blood Culture [[id number]] Collected: 01/11/25 114 Order Status: Resulted Specimen: Blood Updated: 01/11/25 115 Blood Culture [[id number]] Collected: 01/11/251147 Order Status: Resulted Specimen: Blood Updated: 01/11/25 115 Radiology: Radiology Results (last 3 days) Procedure Component Value Units Date/Time CT ABDOMEN/PELVIS WITHOUT IV CONTRAST Standard Protocol [[id number]] Resulted: 01/11/25 1549 Order Status: Sent Updated: 01/11/[address] brain without IV contrast [[id number]] Collected: 01/11/25 1431 Order Status: Completed Updated: 01/11/25 143 Narrative: CT brain without IV contrast HISTORY: [...] intact. Impression: Negative. XR chest AP portable [[id number]] Collected: 01/11/25 1233 Order Status: Completed Updated: 01/11/251238 Narrative: PORTABLE CHEST 01/11/2025 11:50 AM HISTORY: [...] 650 mg every 6hrs for mild pain, [place] 5 mg every 6hrs for moderate/severe pain. [...] medical decision making -Evaluated 01/11/2025, 3:51 PM IOlgeario, have personally reviewed pertinent laboratory, EKG, and [...] Olegario Varghese PA-C 01/11/2025, 3:51 PM Voice shade bander technology (Carefx) is used for dictation of this note and sound-alike words might be erroneously placed despite reviewing the note for accuracy. Errors in dictation mayreflect use of voice recognition software and not all errors in shade bander may have been detected prior to signing. [...] chronic hemodialysis on a MWF schedule at [facility] dialysis clinic in [facility] who presented to [facility] emergency department being a and having nausea, vomiting, and epigastric discomfort as well as generalized weakness. She presented earlier to her dialysis treatment [facility] dialysis clinic but her treatment could not be proceeded due to her illness. Apparently she had a tunneled hemodialysis catheter exchanged a day before this admission as her old dialysis catheter was partially pulled out with some erythema and redness around the old catheter exit site. She is being admitted to [facility] for further evaluation and I was [...] mouth 2 (two) times daily. 12/06/22 Historical ProviderMD diphenhydrAMINE (BENADRYL) 25 mg tablet Take 1 [...] Historical Provider, Current Medications: Current Facility-Administered Medications: ??? acetaminophen [...] Daily, Olegario Varghese PA-C, 1,500 mg at 01/12/25 0934 ??? carvediloL (COREG) tablet 12.5 mg, 12.5 mg, oral, BID, Olegario Varghese PA-C, 12.5 mg at 01/12/25 0933 ??? dextrose 50% (D50W) injection 25 g, [...] Q6H PRN, SHERLY Young, 1 tablet at 01/12/2534 ??? insulin lispro (HUMALOG, ADMELOG) injection 0-6 Units, 0-6 Units, subcutaneous, 4x Daily AC, Olegario Varghese PA-C ??? isosorbide mononitrate (IMDUR) 24 hr tablet 30 mg, 30 mg, oral, Daily, Olegario Varghese PA-C, 30mg at 01/12/2533 ??? labetaloL (TRANDATE, NORMODYNE) injection 10 mg, [...] POC-GLUCOSE 112 (H) 70 - 110 mg/dL [employer] [id number] CBC with automated diff Collection Time: 01/11/25 [...] 102 BPM ATRIAL RATE (MCT) 106 BPM AL Interval 164 ms QRS-INTERVAL (MSEC) 84 ms QT Interval 332 ms QTC Interval 432 ms P [place] 54 degrees R AXIS (MCT) 20 degrees T Wave [place] 44 degrees [place] Diagnosis Age and gender specific ECG analysis Sinus tachycardia Low voltage QRS Borderline ECG When compared with ECG of 21-JUL-2024 08:41, No significant change was found Glucose, Nova Meter Collection Time: 01/11/25 6:12 PM Result Value Ref Range POC-GLUCOSE 116 (H) 70 - 110 mg/dL [employer] [id number] Glucose, Nova Meter Collection Time: 01/11/25 8:56 PM Result Value Ref Range POC-GLUCOSE 103 70 - 110 mg/dL [employer] [id number] Glucose, Nova Meter Collection Time: 01/12/25 5:35 AM Result Value Ref Range POC-GLUCOSE 103 70 - 110 mg/dL [employer] [id number] Imaging: CT ABDOMEN/PELVIS WITHOUT IV CONTRAST Standard [...] Diagnosis Date C. difficile colitis Cardiac arrest ([facility]) 07/19/2024 CHF (congestive heart failure) ([facility]) 01/19/2024 Chronic kidney disease Coronary artery disease-heart stents x 2 2019 CTS (carpal tunnel syndrome)left Depression Diabetes mellitus (HCC) ESRD (end stage renal disease) on dialysis (HCC)//thu Hyperlipidemia, unspecified 10/06/2022 Hypertension Kidney failure Obstructive sleep apnea Osteomyelitis (HCC) resolved Peripheral vascular disease due to secondary diabetes (HCC) Post-menopausal Wound of right foot wrapped Past Surgical History: Procedure Laterality Date AMPUTATION,TOE Right BELOW KNEE LEG AMPUTATION Left toes first then debridement CARPAL TUNNEL RELEASE Right CREATION,A-V FISTULA Right 01/10/2025 Procedure: LEFT IJ tunneled catheter exchanged RIGHT brachiocephalic arteriovenous fistula creation; Surgeon: Baljinder Sloan MD; [facility]; Service: Vascular Surgery; Laterality: Right; CREATION,PERICARDIAL WINDOW N/A 12/19/2022 Procedure: CREATION, PERICARDIAL WINDOW; Surgeon: Bogdan Hernandez IV, MD; [facility]; Service: CV Surgery; Laterality: N/A; AO#3, AVAIL TF, 3HR(A) GALLBLADDER SURGERY heart stents INSERTION,DIALYSIS CATHETER KNEE ARTHROSCOPY Right ORIF,FEMUR Left 08/10/2023 Procedure: ORIF LT FEMUR); Surgeon: Otf Birmingham MD; [facility]; Service: OrthopaedicSurgery; Laterality: Left; AO# 4, AVAIL TF melvi left hip TONSILLECTOMY TRANSPOSITION,VEIN Left 04/20/2023 Procedure: (LT UPPER EXTREMITY AV FISTULA); Surgeon: Baljinder Sloan MD; [facility]; Service: Vascular; Laterality: Left; [...] and Community Support Received from [facility], [facility] Abuse Screen Housing Stability: Low Risk [...] of SARS-CoV-2 does not differentiate between SARS-CoV [id number].The BD Veritor System for Rapid Detection of [...] TROPONIN I - Normal Narrative: Applicable to [facility] only. Effective October 25 the lab [...] of SARS-CoV-2 does not differentiate between SARS-CoV [id number].The BD Veritor System for Rapid Detection of [...] TROPONIN I - Normal Narrative: Applicable to [facility] only. Effective October 25 the lab [...] well as internal medicine. Will admit to [facility] with telemetry. 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 Electronic shade bander of spoken language may permit erroneous, or at times, nonsensical words or phrases to be inadvertently transcribed. Although I have reviewed the note for such errors, some may still exist. Electronically Signed By Benedict Fleming MD 01/11/25 1546 * Laisha Greer RN - 01/11/2025 11:35 AM EDT Bed: ED27 Expected date: Expected time: Means of arrival: Comments: [facility] Laisha Greer 01/11/25 1135 * Amirah Avitia [...] Nova Meter (01/14/2025 10:47 AM EDT) Pathologist [facility] POC-GLUCOSE 171(H) 70 - 110 mg/dL 01/14/2025 10:49 AM EDT [facility] Comment: In the event of poor peripheral blood flow, venous or arterial blood should be used due to the potential of erroneous results. Notified Nurse RBV [employer] [id number] 01/14/2025 10:49 AM EDT [facility] Blood WHOLE BLOOD / Unknown 01/14/2025 10:47 AM EDT 01/14/2025 10:49 AM EDT Narrative [facility] - 01/14/2025 10:49 AM EDT [employer] ID is - [id number] us Ismaeel Celia DO POINT OF CARE TEST ORDERABLES Final Result [facility] [address] [phone] * (ABNORMAL) CBC with automated diff (01/14/2025 6:15 AM EDT) Pathologist [facility] WBC 7.1 4.0 - 10.0 K/ L 01/14/2025 6:33 AM EDT [facility] RBC 3.25(L) 3.93 - 5.22 M/ L 01/14/2025 6:33 AM EDT [facility] Hemoglobin 10.5(L) 11.2 - 15.7 GM/DL 01/14/2025 6:33 AM EDT [facility] Hematocrit 31.6(L) 34.1 - 44.9 % 01/14/2025 6:33 AM EDT [facility] MCV 97(H) 79 - 95 fL 01/14/2025 6:33 AM EDT [facility] MCH 32.3(H) 25.6 - 32.2 pg 01/14/2025 6:33 AM EDT [facility] MCHC 33.2 32.2 - 35.5 GM/DL 01/14/2025 6:33 AM EDT [facility] RDW 13.1 11.7 - 14.4 % 01/14/2025 6:33 AM EDT [facility] Platelets 239 140 - 375 K/CU MM 01/14/2025 6:33 AM EDT [facility] MPV 9.5 9.4 - 12.3 fL 01/14/2025 6:33 AM EDT [facility] % Neutros 66 34 - 71 % 01/14/2025 6:33 AM EDT [facility] % Lymphs 20 19 - 52 % 01/14/2025 6:33 AM EDT [facility] % Monos 11 5 - 13 % 01/14/2025 6:33 AM EDT [facility] % Eos 2 1 - 6 % 01/14/2025 6:33 AM EDT [facility] % Baso 0 0 - 1 % 01/14/2025 6:33 AM EDT [facility] NRBC Absolute <0.01 0 - 0.012 K/ul 01/14/2025 6:33 AM EDT [facility] # Neutros 4.67 1.56 - 6.13 K/ L 01/14/2025 6:33 AM EDT [facility] # Lymphs 1.41 1.18 - 3.74 K/ L 01/14/2025 6:33 AM EDT [facility] # Monos 0.76 0.24 - 0.86 K/ L 01/14/2025 6:33 AM EDT [facility] # Eos 0.14 0.04 - 0.36 K/ L 01/14/2025 6:33 AM EDT [facility] # Baso 0.03 0.01 - 0.08 K/ L 01/14/2025 6:33 AM EDT [facility] Immature Granulocytes-Re lative 0.60(H) 0.01 - 0.43 % 01/14/2025 6:33 AM EDT [facility] # IG 0.04(H) 0.00 - 0.03 K/uL 01/14/2025 6:33 AM EDT [facility] Blood Venipuncture / Unknown 01/14/2025 6:15 AM EDT 01/14/2025 6:27 AM EDT Narrative [facility] - 01/14/2025 6:33 AM EDT [...] ORDERABLES Final Resul t Performing Organization Address [facility]/ZIP Co de Phone Number [facility] [address] [phone] * Magnesium (01/14/2025 6:14 AM EDT) Magnesium 1.8 1.6 - 2.6 mg/dL 01/14/2025 6:58 AM EDT [facility] Blood Venipuncture / Unknown 01/14/2025 6:14 AM EDT 01/14/2025 6:27 AM EDT us Gabino Esteban MD LAB BLOOD ORDERABLES Final Resul t Performing Organization Address City/[facility]/ZIP Co de Phone Number [facility] [address] [phone] * (ABNORMAL) Comprehensive metabolic panel (01/14/2025 6:14 AM [facility]) Sodium 136 136 - 145 meq/L 01/14/2025 7:07 AM [facility] Potassium 3.8 3.4 - 5.1 meq/L 01/14/2025 7:07 AM [facility] Chloride 100 98 - 112 meq/L 01/14/2025 7:07 AM [facility] CO2 24 22 - 29 meq/L 01/14/2025 7:07 AM [facility] Calcium 8.4 8.4 - 10.2 mg/dL 01/14/2025 7:07 AM [facility] Glucose 122(H) 74 - 100 mg/dL 01/14/2025 7:07 AM [facility] BUN 18.9 9.8 - 20.1 mg/dL 01/14/2025 7:07 AM [facility] Creatinine 4.18(H) 0.57 - 1.11 mg/dL 01/14/2025 7:07 AM [facility] BUN/Creatinine 5(L) 8 - 20 01/14/2025 7:07 AM [facility] eGFR (mL/min/1.73m2) 12(L) >=60 mL/min/1. 73m2 01/14/2025 7:07 AM [facility] Albumin 2.8(L) 3.5 - 5.0 g/dL 01/14/2025 7:07 AM [facility] Alkaline Phosphatase 139 40 - 150 U/L 01/14/2025 7:07 AM [facility] ALT <7 <=34 U/L 01/14/2025 7:07 AM [facility] Comment: ALT2 reagent used for testing does not contain P5P supplementation and therefore may miss ALT elevations in patients with B6 deficiency. This population may be as high as 10% in the [place], with risk factors including malabsorption, drug interactions, and alcoholic hepatitis. AST 18 11 - 34 U/L 01/14/2025 7:07 AM [facility] Comment: AST2 reagent used for testing does not contain P5P supplementation and therefore may miss AST elevations in patients with B6 deficiency. This population may be as high as 10% in the [place], with risk factors including malabsorption, drug interactions, and alcoholic hepatitis. Total Bilirubin 0.5 0.2 - 1.2 mg/dL 01/14/2025 7:07 AM EDT [facility] Protein, Total 6.5 6.4 - 8.3 g/dL 01/14/2025 7:07 AM EDT [facility] Globulin 3.7 2.5 - 4.1 g/dL 01/14/2025 7:07 AM EDT [facility] Anion Gap 16(H) 4 - 12 01/14/2025 7:07 AM EDT [facility] A/G Ratio 0.8 0.7 - 1.9 01/14/2025 7:07 AM EDT [facility] Osmolality Calc 275.5 mOsm/kg 7:07 AM EDT [facility] Blood Venipuncture / Unknown 01/14/2025 6:14 AM EDT 01/14/2025 6:27 AM EDT us Gabino Esteban MD LAB BLOOD ORDERABLES Final Resul t [facility] [address] [phone] * (ABNORMAL) Glucose, Nova Meter (01/14/2025 5:51 AM EDT) POC-GLUCOSE 129(H) 70 - 110 mg/dL 01/14/2025 5:53 AM EDT [facility] Comment: In the event of poor peripheral blood flow, venous or arterial blood should be used due to the potential of erroneous results. Notified Nurse RBV [employer] [id number] 01/14/2025 5:53 AM EDT [facility] Blood WHOLE BLOOD / Unknown 01/14/2025 5:51 AM EDT 01/14/2025 5:53 AM EDT Narrative [facility] - 01/14/2025 5:53 AM EDT [employer] ID is - [id number] Karla Mosley MD POINT OF CARE TEST ORDERABLES Fi nal Result Performing Organization Address [facility] Co de Phone Number [facility] [address] [place] [address], [facility] [phone] * Glucose, Nova Meter (01/13/2025 8:09 PM EDT) POC-GLUCOSE 103 70 - 110 mg/dL 01/13/2025 8:11 PM EDT [facility] Comment: In the event of poor peripheral blood flow, venous or arterial blood should be used due to the potential of erroneous results. Notified Nurse RBV [employer] [id number] 01/13/2025 8:11 PM EDT [facility] Blood WHOLE BLOOD / Unknown 01/13/2025 8:09 PM EDT 01/13/2025 8:10 PM EDT [facility] - 01/13/2025 8:11 PM EDT [employer] ID is - [id number] Karla Mosley MD POINT OF CARE TEST ORDERABLES Fi nal Result Performing Organization Address [facility] Co de Phone Number [facility] [address] [place] [address], [facility] [phone] * (ABNORMAL) Glucose, Nova Meter (01/13/2025 11:07 AM EDT) POC-GLUCOSE 147(H) 70 - 110 mg/dL 01/13/2025 11:12 AM EDT [facility] Comment: In the event of poor peripheral blood flow, venous or arterial blood should be used due to the potential of erroneous results. Notified Nurse RBV [employer] [id number] 01/13/2025 11:12 AM EDT [facility] Blood WHOLE BLOOD / Unknown 01/13/2025 11:07 AM EDT 01/13/2025 11:12 AM EDT [facility] - 01/13/2025 11:12 AM EDT [employer] ID is - [id number] us Karla Mosley MD POINT OF CARE TEST ORDERABLES Fi nal Result Performing Organization Address City/[facility]/ZIP Co de Phone Number [facility] [address] [phone] * Magnesium (01/13/2025 9:53 AM EDT) Magnesium 1.8 1.6 - 2.6 mg/dL 01/13/2025 10:39 AM EDT [facility] Blood Venipuncture / Unknown 01/13/2025 9:53 AM EDT 01/13/2025 10:11 AM EDT Gabino Esteban MD LAB BLOOD ORDERABLES Final Resul t Performing Organization Address [facility] Co de Phone Number [facility] [address] [phone] * (ABNORMAL) Comprehensive metabolic panel (01/13/2025 9:53 AM EDT) Sodium 139 136 - 145 meq/L 01/13/2025 10:40 AM EDT [facility] Potassium 4.3 3.4 - 5.1 meq/L 01/13/2025 10:40 AM EDT [facility] Chloride 101 98 - 112 meq/L 01/13/2025 10:40 AM EDT [facility] CO2 27 22 - 29 meq/L 01/13/2025 10:40 AM EDT [facility] Calcium 8.6 8.4 - 10.2 mg/dL 01/13/2025 10:40 AM EDT [facility] Glucose 123(H) 74 - 100 mg/dL 01/13/2025 10:40 AM EDT [facility] BUN 28.7(H) 9.8 - 20.1 mg/dL 01/13/2025 10:40 AM EDT [facility] Creatinine 5.75(H) 0.57 - 1.11 mg/dL 01/13/2025 10:40 AM EDT [facility] BUN/Creatinine 5(L) 8 - 20 01/13/2025 10:40 AM [facility] eGFR (mL/min/1.73m2) 8(L) >=60 mL/min/1. 73m2 01/13/2025 10:40 AM [facility] Albumin 2.9(L) 3.5 - 5.0 g/dL 01/13/2025 10:40 AM [facility] Alkaline Phosphatase 145 40 - 150 U/L 01/13/2025 10:40 AM [facility] ALT <7 <=34 U/L 01/13/2025 10:40 AM [facility] Comment: ALT2 reagent used for testing does not contain P5P supplementation and therefore may miss ALT elevations in patients with B6 deficiency. This population may be as high as 10% in the [place], with risk factors including malabsorption, drug interactions, and alcoholic hepatitis. AST 21 11 - 34 U/L 01/13/2025 10:40 AM [facility] Comment: AST2 reagent used for testing does not contain P5P supplementation and therefore may miss AST elevations in patients with B6 deficiency. This population may be as high as 10% in the [place], with risk factors including malabsorption, drug interactions, and alcoholic hepatitis. Total Bilirubin 0.5 0.2 - 1.2 mg/dL 01/13/2025 10:40 AM [facility] Protein, Total 6.5 6.4 - 8.3 g/dL 01/13/2025 10:40 AM [facility] Globulin 3.6 2.5 - 4.1 g/dL 01/13/2025 10:40 AM [facility] Anion Gap 15(H) 4 - 12 01/13/2025 10:40 AM [facility] A/G Ratio 0.8 0.7 - 1.9 01/13/2025 10:40 AM [facility] Osmolality Calc 284.6 mOsm/kg 10:40 AM [facility] Blood Venipuncture / Unknown 01/13/2025 9:53 AM T 01/13/2025 10:11 AM EDT us Gabino Esteban MD LAB BLOOD ORDERABLES Final Resul t [facility] [address] [place] [id number] [phone] * (ABNORMAL) CBC with automated diff (01/13/2025 9:53 AM EDT) WBC 7.3 4.0 - 10.0 K/ L 01/13/2025 10:17 AM EDT [facility] RBC 3.13(L) 3.93 - 5.22 M/ L 01/13/2025 10:17 AM EDT [facility] Hemoglobin 10.2(L) 11.2 - 15.7 GM/DL 01/13/2025 10:17 AM EDT [facility] Hematocrit 30.7(L) 34.1 - 44.9 % 01/13/2025 10:17 AM EDT [facility] MCV 98(H) 79 - 95 fL 01/13/2025 10:17 AM EDT [facility] MCH 32.6(H) 25.6 - 32.2 pg 01/13/2025 10:17 AM EDT [facility] MCHC 33.2 32.2 - 35.5 GM/DL 01/13/2025 10:17 AM EDT [facility] RDW 13.1 11.7 - 14.4 % 01/13/2025 10:17 AM EDT [facility] Platelets 211 140 - 375 K/CU MM 01/13/2025 10:17 AM EDT [facility] MPV 9.5 9.4 - 12.3 fL 01/13/2025 10:17 AM EDT [facility] % Neutros 67 34 - 71 % 01/13/2025 10:17 AM EDT [facility] % Lymphs 21 19 - 52 % 01/13/2025 10:17 AM EDT [facility] % Monos 9 5 - 13 % 01/13/2025 10:17 AM EDT [facility] % Eos 2 1 - 6 % 01/13/2025 10:17 AM EDT [facility] % Baso 0 0 - 1 % 01/13/2025 10:17 AM EDT [facility] NRBC Absolute <0.01 0 - 0.012 K/ul 01/13/2025 10:17 AM EDT [facility] # Neutros 4.93 1.56 - 6.13 K/ L 01/13/2025 10:17 AM EDT [facility] # Lymphs 1.53 1.18 - 3.74 K/ L 01/13/2025 10:17 AM EDT [facility] # Monos 0.68 0.24 - 0.86 K/ L 01/13/2025 10:17 AM EDT [facility] # Eos 0.12 0.04 - 0.36 K/ L 01/13/2025 10:17 AM EDT [facility] # Baso 0.03 0.01 - 0.08 K/ L 01/13/2025 10:17 AM EDT [facility] Immature Granulocytes-Re lative 0.70(H) 0.01 - 0.43 % 01/13/2025 10:17 AM EDT [facility] # IG 0.05(H) 0.00 - 0.03 K/uL 01/13/2025 10:17 AM EDT [facility] Blood Venipuncture / Unknown 01/13/2025 9:53 AM EDT 01/13/2025 10:11 AM EDT Narrative [facility] - 01/13/2025 10:17 AM EDT [...] MD LAB BLOOD ORDERABLES Final Resul t [facility] [address] [phone] * Phosphorus (01/13/2025 9:53 AM EDT) [facility] Phosphorus 3.1 2.5 - 4.5 mg/dL 01/13/2025 10:39 AM EDT [facility] Blood Venipuncture / Unknown 01/13/2025 9:53 AM EDT 01/13/2025 10:11 AM EDT Gabino Esteban MD LAB BLOOD ORDERABLES Final Resul t Performing Organization Address [facility] Co de Phone Number [facility] [address] [phone] * (ABNORMAL) Glucose, Nova Meter (01/13/2025 5:54 AM EDT) [facility] POC-GLUCOSE 111(H) 70 - 110 mg/dL 01/13/2025 5:55 AM EDT [facility] Comment: In the event of poor peripheral blood flow, venous or arterial blood should be used due to the potential of erroneous results. Notified Nurse RBV [employer] [id number] 01/13/2025 5:55 AM EDT [facility] Blood WHOLE BLOOD / Unknown 01/13/2025 5:54 AM EDT 01/13/2025 5:55 AM EDT Narrative [facility] - 01/13/2025 5:55 AM EDT [employer] ID is - [id number] Gabino Esteban MD POINT OF CARE TEST ORDERABLES Fi nal Result Performing Organization Address City/[facility] Co de Phone Number [facility] [address] [phone] * Glucose, Nova Meter (01/12/2025 8:27 PM EDT) [facility] POC-GLUCOSE 110 70 - 110 mg/dL 01/12/2025 8:28 PM EDT [facility] Comment: In the event of poor peripheral blood flow, venous or arterial blood should be used due to the potential of erroneous results. Notified Nurse RBV [employer]ic [id number] 01/12/2025 8:28 PM EDT [facility] Blood WHOLE BLOOD / Unknown 01/12/2025 8:27 PM EDT 01/12/2025 8:28 PM EDT [facility] - 01/12/2025 8:28 PM EDT [employer] ID is - [id number] Gabino Esteban MD POINT OF CARE TEST ORDERABLES Fi nal Result Performing Organization Address [facility] de Phone Number [facility] [address] [phone] * Glucose, Nova Meter (01/12/2025 5:04 PM EDT) POC-GLUCOSE 98 70 - 110 mg/dL 01/12/2025 5:05 PM EDT [facility] Comment: In the event of poor peripheral blood flow, venous or arterial blood should be used due to the potential of erroneous results. Protocols Followed [employer]ic [id number] 01/12/2025 5:05 PM EDT [facility] Blood WHOLE BLOOD / Unknown 01/12/2025 5:04 PM EDT 01/12/2025 5:05 PM EDT [facility] - 01/12/2025 5:05 PM EDT [employer] ID is - [id number] Gabino Esteban MD POINT OF CARE TEST ORDERABLES Fi nal Result Performing Organization Address [facility] Phone Number [facility] [address] [phone] * Glucose, Nova Meter (01/12/2025 11:21 AM EDT) POC-GLUCOSE 106 70 - 110 mg/dL 01/12/2025 11:28 AM EDT [facility] Comment: In the event of poor peripheral blood flow, venous or arterial blood should be used due to the potential of erroneous results. Notified Nurse RBV [employer] [id number] 01/12/2025 11:28 AM EDT [facility] Blood WHOLE BLOOD / Unknown 01/12/2025 11:21 AM EDT 01/12/2025 11:28 AM EDT Narrative [facility] - 01/12/2025 11:28 AM EDT [employer] ID is - [id number] Gabino Esteban MD POINT OF CARE TEST ORDERABLES Fi nal Result [facility] [address] [place] [address], [facility] [phone] * Glucose, Nova Meter (01/12/2025 5:35 AM EDT) POC-GLUCOSE 103 70 - 110 mg/dL 01/12/2025 5:36 AM EDT [facility] Comment: In the event of poor peripheral blood flow, venous or arterial blood should be used due to the potential of erroneous results. Notified Nurse RBV [employer]ic [id number] 01/12/2025 5:36 AM EDT [facility] Blood WHOLE BLOOD / Unknown 01/12/2025 5:35 AM EDT 01/12/2025 5:36 AM EDT Narrative [facility] - 01/12/2025 5:36 AM EDT [employer] ID is - [id number] Olegario Varghese PA-C POINT OF CARE TEST ORDERABLE S Final Result Performing Organization Address City/[facility] Co de Phone Number [facility] [address] [place] [address], [facility] [phone] * Glucose, Nova Meter (01/11/2025 8:56 PM EDT) POC-GLUCOSE 103 70 - 110 mg/dL 01/11/2025 8:57 PM EDT [facility] Comment: In the event of poor peripheral blood flow, venous or arterial blood should be used due to the potential of erroneous results. Notified Nurse RBV [employer] [id number] 01/11/2025 8:57 PM EDT [facility] Blood WHOLE BLOOD / Unknown 01/11/2025 8:56 PM EDT 01/11/2025 8:57 PM EDT Narrative [facility] - 01/11/2025 8:57 PM EDT [employer] ID is - [id number] Olegario Varghese PA-C POINT OF CARE TEST ORDERABLE S Final Result Performing Organization Address [facility] de Phone Number [facility] [address] [place] [address], [facility] [phone] * (ABNORMAL) Glucose, Nova Meter (01/11/2025 6:12 PM EDT) POC-GLUCOSE 116(H) 70 - 110 mg/dL 01/11/2025 6:14 PM EDT [facility] Comment:In the event of poor peripheral blood flow, venous or arterial blood should be used due to the potential of erroneous results. [employer] [id number] 01/11/2025 6:14 PM EDT [facility] LABORATORY Blood WHOLE BLOOD / Unknown 01/11/2025 6:12 PM EDT 01/11/2025 6:14 PM EDT Narrative [facility] - 01/11/2025 6:14 PM EDT Dinkey Engine Mechanic ID is - [id number] Olegario Varghese PA-C POINT OF CARE TEST ORDERABLE S Final Result Performing Organization Address [facility] de Phone Number [facility] [address] [place] [address], [facility] [phone] * CT ABDOMEN/PELVIS WITHOUT IV CONTRAST Standard [...] clear. The calvarium is intact. IMPRESSION: Negative. Benedict Fleming MD IMG CT ORDERABLES Final Res ult * ECG 12 lead (01/11/2025 11:51 AM EDT) VENTRICULAR RATE EKG/MIN 102 BPM GE MUSE ATRIAL RATE (MCT) 106 BPM GE MUSE AL Interval 164 ms GE MUSE QRS-INTERVAL (MSEC) 84 ms GE MUSE QT Interval 332 ms GE MUSE QTC Interval 432 ms GE MUSE P [place] 54 degrees GE MUSE R AXIS (MCT) 20 degrees GE MUSE T Wave [place] 44 degrees GE MUSE [place] Diagnosis Age and gender specific ECG analysis Sinus tachycardia Low voltage QRS Borderline ECG When compared with ECG of 21-JUL-2024 08:41, No significant change was found Confirmed by Cruz ADLER MATTHEW ([id number]) on 01/15/2025 9:08:45 AM GE MUSE 01/11/2025 11:5 1 AM EDT 01/15/2025 9:08 AM EDT Benedict Fleming MD ECG ORDERABLES Final Resul [...] Ivanna Sutton. Transcribed by Yessica Huerta PA-C. Benedict Fleming MD G DIAGNOSTIC IMAGING ORDE RABLES Final Result * Magnesium (01/11/2025 11:48 AM EDT) [facility] Magnesium 2.0 1.6 - 2.6 mg/dL 01/11/2025 12:22 PM EDT [facility] Blood Venipuncture / Unknown 01/11/2025 11:48 AM EDT 01/11/2025 11:56 AM EDT Beneditc Fleming MD LAB BLOOD ORDERABLES Final Result [facility] [address] [phone] * High Sensitivity Troponin I (01/11/2025 11:48 AM EDT) [facility] Troponin I High Sensitivity (pg/mL) <5.0 <=14 pg/mL 01/11/2025 12:32 PM EDT [facility] Blood Venipuncture / Unknown 01/11/2025 11:48 AM EDT 01/11/2025 11:56 AM EDT Narrative [facility] - 01/11/2025 12:32 PM EDT Applicable to [facility] only. Effective October 25 the lab will begin using a new chemistry analyzer. HsTroponin methodology, reference ranges and critical values have changed. Benedict Fleming MD LAB BLOOD ORDERABLES Final Result [facility] [address] [phone] * COVID ANTIGEN (01/11/2025 11:48 AM EDT) [facility] SARS COVID ANTIGEN Negative Negative, Invalid 01/11/2025 12:40 PM EDT [facility] Nasal Swab (Nasal) 01/11/2025 11:48 AM EDT 01/11/2025 11:56 AM EDT Narrative [facility] - 01/11/2025 12:40 PM EDT [...] is a high likelihood of SARS-CoV-2 infection. Benedict Fleming MD MICROBIOLOGY - GENERAL MASHA ARZATE Final Result [facility] [address] [phone] * Blood Culture (01/11/2025 11:48 AM EDT) Result No growth in 5 days 01/16/2025 1:00 PM EDT [facility] Blood Venipuncture / Unknown 01/11/2025 11:48 AM EDT 01/11/2025 11:56 AM EDT Benedict Fleming MD MICROBIOLOGY - GENERAL MASHA ARZATE Final Result [facility] [address] [phone] * Blood Culture (01/11/2025 11:48 AM EDT) Result No growth in 5 days 01/16/2025 1:00 PM EDT [facility] Blood Venipuncture / Unknown 01/11/2025 11:48 AM EDT 01/11/2025 11:56 AM EDT Benedict Fleming MD MICROBIOLOGY - GENERAL ORDE RABLES Final Result [facility] [address] [phone] * Lactic Acid with reflex (SJ) (01/11/2025 11:48 AM EDT) Lactic Acid Level (mmol/L) 1.2 0.5 - 2.2 mmol/L 01/11/2025 12:48 PM EDT [facility] Blood Venipuncture / Unknown 01/11/2025 11:48 AM EDT 01/11/2025 12:27 PM EDT Narrative [facility] - 01/11/2025 12:48 PM EDT Specimen slightly hemolyzed Benedict Fleming MD LAB BLOOD ORDERABLES Final Result [facility] [address] [phone] * (ABNORMAL) Comprehensive metabolic panel (01/11/2025 11:48 AM EDT) Sodium 142 136 - 145 meq/L 01/11/2025 12:22 PM EDT [facility] Potassium 4.4 3.4 - 5.1 meq/L 01/11/2025 12:22 PM EDT [facility] Chloride 100 98 - 112 meq/L 01/11/2025 12:22 PM EDT [facility] CO2 31(H) 22 - 29 meq/L 01/11/2025 12:22 PM EDT [facility] Calcium 10.0 8.4 - 10.2 mg/dL 01/11/2025 12:22 PM EDT [facility] Glucose 125(H) 74 - 100 mg/dL 01/11/2025 12:22 PM [facility] BUN 46.9(H) 9.8 - 20.1 mg/dL 01/11/2025 12:22 PM [facility] Creatinine 6.98(H) 0.57 - 1.11 mg/dL 01/11/2025 12:22 PM [facility] BUN/Creatinine 7(L) 8 - 20 01/11/2025 12:22 PM [facility] eGFR (mL/min/1.73m2) 7(L) >=60 mL/min/1. 73m2 01/11/2025 12:22 PM [facility] Albumin 3.4(L) 3.5 - 5.0 g/dL 01/11/2025 12:22 PM [facility] Alkaline Phosphatase 175(H) 40 - 150 U/L 01/11/2025 12:22 PM [facility] ALT 34 <=34 U/L 01/11/2025 12:22 PM [facility] Comment: ALT2 reagent used for testing does not contain P5P supplementation and therefore may miss ALT elevations in patients with B6 deficiency. This population may be as high as 10% in the [place], with risk factors including malabsorption, drug interactions, and alcoholic hepatitis. AST 48(H) 11 - 34 U/L 01/11/2025 12:22 PM [facility] Comment: AST2 reagent used for testing does not contain P5P supplementation and therefore may miss AST elevations in patients with B6 deficiency. This population may be as high as 10% in the [place], with risk factors including malabsorption, drug interactions, and alcoholic hepatitis. Total Bilirubin 0.4 0.2 - 1.2 mg/dL 01/11/2025 12:22 PM [facility] Protein, Total 7.0 6.4 - 8.3 g/dL 01/11/2025 12:22 PM [facility] Globulin 3.6 2.5 - 4.1 g/dL 01/11/2025 12:22 PM [facility] Anion Gap 15(H) 4 - 12 01/11/2025 12:22 PM [facility] A/G Ratio 0.9 0.7 - 1.9 01/11/2025 12:22 PM EDT [facility] Osmolality Calc 296.8 mOsm/kg 12:22 PM EDT [facility] Blood Venipuncture / Unknown 01/11/2025 11:48 AM EDT 01/11/2025 11:56 AM EDT us Benedict Fleming MD LAB BLOOD ORDERABLES Final Result [facility] [address] [phone] * (ABNORMAL) CBC with automated diff (01/11/2025 11:48 AM EDT) WBC 8.8 4.0 - 10.0 K/ L 01/11/2025 12:05 PM EDT [facility] RBC 3.39(L) 3.93 - 5.22 M/ L 01/11/2025 12:05 PM EDT [facility] Hemoglobin 11.1(L) 11.2 - 15.7 GM/DL 01/11/2025 12:05 PM EDT [facility] Hematocrit 33.1(L) 34.1 - 44.9 % 01/11/2025 12:05 PM EDT [facility] MCV 98(H) 79 - 95 fL 01/11/2025 12:05 PM EDT [facility] MCH 32.7(H) 25.6 - 32.2 pg 01/11/2025 12:05 PM EDT [facility] MCHC 33.5 32.2 - 35.5 GM/DL 01/11/2025 12:05 PM EDT [facility] RDW 13.3 11.7 - 14.4 % 01/11/2025 12:05 PM EDT [facility] Platelets 243 140 - 375 K/CU MM 01/11/2025 12:05 PM EDT [facility] MPV 9.8 9.4 - 12.3 fL 01/11/2025 12:05 PM EDT [facility] % Neutros 70 34 - 71 % 01/11/2025 12:05 PM EDT [facility] % Lymphs 19 19 - 52 % 01/11/2025 12:05 PM EDT [facility] % Monos 9 5 - 13 % 01/11/2025 12:05 PM EDT [facility] % Eos 1 1 - 6 % 01/11/2025 12:05 PM EDT [facility] % Baso 0 0 - 1 % 01/11/2025 12:05 PM EDT [facility] NRBC Absolute <0.01 0 - 0.012 K/ul 01/11/2025 12:05 PM EDT [facility] # Neutros 6.19(H) 1.56 - 6.13 K/ L 01/11/2025 12:05 PM EDT [facility] # Lymphs 1.71 1.18 - 3.74 K/ L 01/11/2025 12:05 PM EDT [facility] # Monos 0.75 0.24 - 0.86 K/ L 01/11/2025 12:05 PM EDT [facility] # Eos 0.10 0.04 - 0.36 K/ L 01/11/2025 12:05 PM EDT [facility] # Baso 0.03 0.01 - 0.08 K/ L 01/11/2025 12:05 PM EDT [facility] Immature Granulocytes-Re lative 0.60(H) 0.01 - 0.43 % 01/11/2025 12:05 PM EDT [facility] # IG 0.05(H) 0.00 - 0.03 K/uL 01/11/2025 12:05 PM EDT [facility] Blood Venipuncture / Unknown 01/11/2025 11:48 AM EDT 01/11/2025 11:56 AM EDT [facility] - 01/11/2025 12:05 PM EDT When [...] Fleming MD LAB BLOOD ORDERABLES Final Result [facility] [address] [place] [address], [facility] [phone] * EKG-SCANNED (01/11/2025) Narrative 01/11/2025 Ordered by [...] Blood Sugar is less than 180 between 2866-2206, DO NOT give corrective insulin unless otherwise [...] Rocio Nelson, BENNETT)2002 (Given - Provider: Neal Narayan RN) 2317 (Given - Provider: Flora Paulino, BENNETT) [...] RN) 0829 (Given - Provider: Yvonne Hawk RN) 0843 (Given - Provider: Shanique Amaya, BENNETT) [...] RN)2001 (Given - Provider: Neal Narayan RN) 08 (Given - Provider: Yvonne Hawk RN)2316 (Given - Provider: Flora Paulino, BENNETT) 0843 (Given - Provider: Shanique Amaya, BENNETT) gabapentin (NEURONTIN) capsule 300 mg 300 mg Every Night, oral, First dose on Thu01/11/25 at 2100 0014 (Given - Provider: Rocio Nelson RN)2001 (Given - Provider: Neal Narayan RN) 2316 (Given - Provider: Flora Paulino, BENNETT) insulin lispro (HUMALOG, ADMELOG) injection 0-6 Units 0-6 Units 4 times daily (before meals and nightly), subcutaneous, First dose on Thu01/11/25 at 1745, If Blood Sugar is less than 180 between 4054-4381, DO NOT give corrective insulin unless otherwise [...] Yvonne Hawk RN)1300 (Given - Provider: Yvonne Hawk, BENNETT)2317 (Given - Provider: Flora Paulino RN) 0842 (Given - Provider: Shanique Amaya RN)1240 (Given - Provider: Shanique Amaya RN) sucralfate (CARAFATE) tablet 1 g 1 g 2 times daily, oral, First dose on Thu01/11/25 at 2100, If patient cannot swallow tablet, allow the tablet to disolve in 5 mL water for about 2 minutes. 0014 (Given - Provider: Rocio Nelson, BENNETT)0933 (Given - Provider: Brian Collins, RN)2001 (Given - Provider: Neal Narayan, RN) 0830 (Given - Provider: Yvonne Hawk, BENNETT)231 (Given - Provider: Flora Paulino, RN) 0842 (Given - Provider: Shanique Amaya, RN) venlafaxine XR (EFFEXOR-XR) 24 hr capsule 37.5 mg 37.5 mg Daily, oral, First dose on Thu01/11/25 at 1715, * DO NOT CRUSH THIS DOSAGE FORM * 0933 (Given - Provider: Brian Collins, BENNETT) 08 (Given - Provider: Yvonne Hawk, BENNETT) 0843 [...] Collins RN) 0840 (Given - Provider: Yvonne Hawk RN)2322 (Given - Provider: Flora Paulino RN) labetaloL (TRANDATE, NORMODYNE) injection 10 mg 10 [...] documented as of this encounter Care Teams Business Education Professor Relationship Specialty Start Date End Date Wally Yoo MD [address] [place] [phone] PCP - General Family Medicine 01/11/25 documented as of this encounter
--- OUTSIDE RECORDS SUMMARY | 2025-01-25 07:45 | XMS_ITS | Encounter Summary ---
Author Organization [facility] [employer] [facility] Address [address] [place] [address] Care Team Providers Care Circulation Librarian Name Role Phone Unavailable Primary Care Provider Unavailabl e Encounter Details Date Type Department Care Team (Latest Contact Info) Description 01/10/2025 Travel Social History Tobacco Use Types Packs/Day Years [...] place to sleep or slept in a retirement (including now)? 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
--- OUTSIDE RECORDS SUMMARY | 2025-01-25 07:45 | XMS_ITS | Encounter Summary ---
Author Organization [facility] [employer] Address [address] [place] [address] Care Team Providers Care Selector Packer Name Role Phone Wally Yoo MD Primary Care Provider [phone] Encounter Details Date Type Department Care Team (Latest Contact Info) Description 01/11/2025 Travel Social History Tobacco Use Types Packs/Day [...] place to sleep or slept in a nursing home (including now)? Patient refused 12/18/2022 Utilities Answer Date Recorded In the past 12 months, has t he electric, gas, oil, or water company threatened to shut off services in your home? No 01/12/2025 Interpersonal Safety Answer Date Record ed How often does anyone, inclu ding family and friends, physically hurt you? Never [...] your living situation today? I have a [facility] place to live 01/12/2025 Think about the [...] Do you speak a language other than Bahamian at ho me? No 01/12/2025 Do you want help with [...] documented as of this encounter Care Teams Selector Packer Relationship Specialty Start Date End Date Wally Yoo MD [address] [place] [address] PCP - General Family Medicine 01/11/25 documented as of this encounter
--- OUTSIDE RECORDS SUMMARY | 2025-01-25 07:46 | XMS_ITS | Referral Summary ---
Author Organization [facility] Init iatives Address [address] [place] [address] Care Team Providers Care Engineer Fishing Vessel Name Role Phone Wally Yoo MD Primary Care Provider [phone] Encounters Date Type Department Care Team Description 01/11/2025 11:35 AM EDT - 01/14/2025 4:17 PM EDT Hospital Encounter [facility] [address] [place] [phone] Benedict Fleming MD Elliott, Jayden, PA-C Siddiqi, Ismaeel, DO Elbita, Omar, MD Ali, Amjad, MD Generalized weakness (Primary Dx); Primary hypertension; Nausea and vomiting, unspecified vomiting type; Chronic renal failure, unspecified CKD stage Discharge Disposition: Home or Self Care 01/11/2025 Travel 01/10/2025 Travel 01/10/2025 1:51 PM EDT Anesthesia Event [facility] Operating Room 1 [place] [phone] Pro Barr MD Littles, Joel T, MD 01/10/2025 10:59 AM EDT - 01/10/2025 12:29 PM EDT Surgery [facility] Operating Room 1 [place] [phone] Baljinder Sloan MD LEFT IJ tunneled catheter exchanged RIGHT brachiocephalic arteriovenous fistula creation 01/10/2025 12:29 PM EDT - 01/10/2025 5:38 PM EDT Hospital Encounter [facility] Operating Room [address] [place] [address] Baljinder Sloan MD Discharge Disposition: Home or Self Care from Last 3 Months Allergies Active Allergy Reactions Criticality Noted Date Comments Sulfa (Sulfonamide Antibiotics) 10/10/2022 Oxycodone-Acetaminophen Nausea Only 10/10/2022 Pt states she can tolerate hydrocodone (verified 12/19/22) Medications amLODIPine (NORVASC) 10 MG tablet Take 1 tablet (10 mg total) by mouth daily. Active aspirin 81 MG EC tablet Take 1 tablet (81 mg total) by mouth daily. Active atorvastatin (LIPITOR) 40 MG tablet Take 1 tablet (40 mg total) by mouth nightly. 023 Active carvediloL (COREG) 12.5 MG tablet Take 1 tablet (12.5 mg total) by mouth 2 (two) times daily. 023 Active isosorbide mononitrate (IMDUR) 30 MG 24 hr tablet Take 1 tablet (30 mg total) by mouth daily. Active famotidine (PEPCID) 20 MG tablet Take 1 tablet (20 mg total) by mouth 2 (two) times daily. Active sevelamer (RENAGEL) 800 MG tablet Take 1 tablet (800 mg total) by mouth 3 (three) times daily with meals. Active venlafaxine (Effexor XR) 37.5 MG 24 hr capsule Take 1 capsule (37.5 mg total) by mouth daily. Active pseudoephedrin e (Sudogest) 60 MG tablet Take 1 tablet (60 mg total) by mouth every 6 (six) hours as needed for congestion. Active acetaminophen (TYLENOL) 500 MG tablet Take 1 tablet (500 mg total) by mouth every 6 (six) hours as needed for pain. Active ondansetron (ZOFRAN) 4 MG tablet Take 1 tablet (4 mg total) by mouth every 8 (eight) hours as needed for nausea. Active fexofenadine (DANIELLE) 180 MG tablet Take 1 tablet (180 mg total) by mouth daily. Active diphenhydrAMIN E (BENADRYL) 25 mg tablet Take 1 tablet (25 mg total) by mouth 3 (three) times daily as needed for itching. Active calcitonin, salmon, (MIACALCIN) 200 unit/actuation nasal spray [place] 1 spray into one nostril daily. Active calcium carbonate 600mg (Caltrate) 600 mg calcium (1,500 mg) tab Take 1 tablet (1,500 mg total) by mouth daily. Active gabapentin (NEURONTIN) 300 MG capsule Take 1 capsule (300 mg total) by mouth nightly. Active prasugreL (EFFIENT) 10 mg tab tablet Take 1 tablet (10 mg total) by mouth daily. Active epoetin gia (Procrit) 20,000 unit/2 mL soln injection Inject 2 mLs (20,000 Units total) under the skin once a week. Active polyethylene glycol (MIRALAX) 17 gram/dose powder Take 17 g by mouth daily. Active metoclopramide (REGLAN) 10 MG tablet Take 1 tablet (10 mg total) by mouth 3 (three) times daily before meals. Active baclofen (LIORESAL) 5 mg tab Take 1 tablet (5 mg total) by mouth every night as needed for muscle spasms. Active insulin aspart U-100 (NovoLOG) 100 unit/mL (3 mL) inpn Inject under the skin 3 (three) times daily before meals Sliding scale. Active sucralfate (CARAFATE) 1 gram tablet Take 1 tablet (1 g total) by mouth 2 (two) times daily. 2024 Discontinued promethazine (PHENERGAN) 25 MG tablet Take 1 tablet (25 mg total) by mouth every 6 (six) hours as needed for nausea. 2024 Discontinued(S top Taking at Discharge) loperamide (IMODIUM) 2 mg capsule Take 1 capsule (2 mg total) by mouth 4 (four) times daily as needed for diarrhea. 2024 Discontinued(S top Taking at Discharge) cholecalcifero l, vitamin D3, 50 mcg (2,000 unit) cap Take 1 capsule (2,000 Units total) by mouth daily. 024 2024 Discontinued(S top Taking at Discharge) HumuLIN 70/30 U-100 100 unit/mL (70-30) inpn insulin pen Inject 15 Units under the skin in the morning. 024 2024 Discontinued(S top Taking at Discharge) insulin lispro (HUMALOG, ADMELOG) 100 unit/mL injection Inject subcutaneously 3 (three) times daily before meals. 2024 Discontinued bisacodyL (DULCOLAX) 10 mg suppository Insert 1 suppository (10 mg total) into the rectum daily as needed for constipation. 2024 Discontinued(S top Taking at Discharge) azelastine (ASTELIN) 137 mcg (0.1 %) nasal spray Administer 1 spray into each nostril 2 (two) times daily Use in each nostril as directed. 2024 Discontinued(S top Taking at Discharge) insulin glargine-yfgn (SEMGLEE) 100 unit/mL soln solution Inject 22 Units subcutaneously 2 (two) times daily. 024 2024 Discontinued Active Problems Problem Noted Date Diagnosed Date Persistent vomiting in adult patient 01/11/2025 Cardiac arrest 07/19/2024 CHF (congestive heart failure) 01/19/2024 0 01/19/2024 Diabetic neuropathy 01/19/2024 01/19/2024 Smoker 01/19/2024 01/19/2024 Hemodialysis patient 01/19/2024 01/19/2024 Hypertensive chronic kidney disease with stage 5 chronic kidney disease or end stage renal disease 08/13/2023 01/19/2024 Displaced intertrochanteric fracture of left femur, initial encounter for closed fracture 08/08/2023 Supracondylar fracture of di stal end of femur with intracondylar extension 08/08/2023 Anxiety 07/20/2023 01/19/2024 GERD (gastroesophageal reflux disease) 01/19/2024 SHAYLA (obstructive sleep apnea) 07/20/2023 Other pericardial effusion (noninflammatory) 08/2022 Pleural effusion 12/17/2022 Pericardial effusion 12/17/2022 Nausea 11/04/2022 Anaphylactic shock, unspecified, initial encount er 10/08/2022 Anemia in chronic kidney disease 10/06/2022 Chronic kidney disease, unspecified 10/06/2022 Dependence on renal dialysis 10/06/2022 Depression, unspecified 10/06/2022 Hyperlipidemia, unspecified 10/06/2022 Iron deficiency anemia, unspecified 10/06/2022 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 10/06/2022 Morbid (severe) obesity due to excess calories 0 10/06/2022 Type 2 diabetes mellitus wit h diabetic peripheral angiopathy without gangrene 10/06/2022 CKD (chronic kidney disease) stage 3, GFR 30-59 ml/min 06/18/2020 Microalbuminuria 06/18/2020 CAD (coronary artery disease) 07/08/2016 HTN (hypertension) 07/08/2016 Resolved Problems Problem Noted Date Diagnosed Date Resolved Date Gastroparesis 10/06/2022 01/19/2024 DMII (diabetes mellitus, type 2) 07/08/2016 01/19/2024 Social History Tobacco Use Types Packs/Day Years Used Date Smoking Tobacco: Some Days Cigarettes Smokeless Tobacco: Former Tobacco Cessation:Ready to Q uit: Not Asked; Counseling Given: Not Answered Comments:Vap daily Alcohol Use Standard Drinks/Week Comments [...] place to sleep or slept in a fdc (including now)? Patient refused 12/18/2022 Utilities Answer [...] Do you speak a language other than [facility]? No 01/12/2025 Do you want help with [...] on file Sexual Orientation Not on file Last Filed Vital Signs Vital Sign Reading Time Taken Comments Blood Pressure 126/70 01/14/2025 11:50 AM EDT Pulse 85 01/14/2025 11:50 AM EDT Temperature 37 C (98.6 F) 01/14/2025 11:50 AM EDT Respiratory Rate 16 01/14/2025 11:50 AM EDT Oxygen Saturation 97% 01/14/2025 8:42 AM EDT Inhaled Oxygen Concentration 40% 07/24/2024 1 1:45 PM EST Weight 121.6 kg (268 lb) 01/11/2025 11:29 AM EDT Height 167.6 cm (5' 6 ) 01/11/2025 11:29 AM EDT Body Mass Index 43.26 01/11/2025 11:29 AM EDT Plan of Treatment Not on file Medical Devices Implanted Type Area Linen Supply Load Builder Device Identifier Shelf Expiration Date Model / Serial / Lot Scr + Lt Silvina 5.5 Ti - 75mm 04.354.675 - [id number] Implanted:Qty : 1 on 08/10/2023 at [facility] IMPLANTS Left: Leg SYNTHES TRAUMA 04.354.67 5 / 04.354.67 5 / Plt Femur 4 Hole Left 120.551 - [id number] Implanted:Qty : 1 on 08/10/2023 at [facility] IMPLANTS Left: Leg SYNTHES TRAUMA 04120.55 1 / 120.55 1 / Scr Crtx D/L St 4.5x52 Ti Ns 414.852 - [id number] Implanted:Qty : 1 on 08/10/2023 at [facility] IMPLANTS Left: Leg SYNTHES TRAUMA 414.852 / 414.852 / Scr Kirstin Hd St 5.4xmd88ct Ti 413.370 - [id number] Implanted:Qty : 1 on 08/10/2023 at [facility] IMPLANTS Left: Leg SYNTHES TRAUMA 413.370 / 413.370 / Scr Kirstin Head 5.3mpn36ns Ti 413.380 - [id number] Implanted:Qty : 1 on 08/10/2023 at [facility] IMPLANTS Left: Leg SYNTHES TRAUMA 413.380 / 413.380 / Scr Kirstin Head 5.3xsc56iv Ti 413.365 - [id number] Implanted:Qty : 1 on 08/10/2023 at [facility] IMPLANTS Left: Leg SYNTHES TRAUMA 413.365 / 413.365 / Scr Kirstin Head 5.5rov25ua Ti 413.350 - [id number] Implanted:Qty : 2 on 08/10/2023 at [facility] IMPLANTS Left: Leg SYNTHES TRAUMA 413.350 / 413.350 / Scr Lck 5.0x46mm Ti 413.346 - [id number] Implanted:Qty : 1 on 08/10/2023 at [facility] IMPLANTS Left: Leg SYNTHES TRAUMA 413.346 / 413.346 / Washer For 5.5 Silvina Scr + 5pk 04.353.906.05 - [id number] Implanted:Qty : 2 on 08/10/2023 at [facility] IMPLANTS Left: Leg SYNTHES TRAUMA 04.353.90 6.05 / 04.353.90 6.05 / Scr + Lt Silvina 5.5 Ti - 65mm 04.354.665 - [id number] Implanted:Qty : 1 on 08/10/2023 at [facility] IMPLANTS Left: Leg SYNTHES TRAUMA .66 5 / . 5 / Grft Vasc Collagen [id number] Ag616 - [id number] Implanted:Qty : 1 on 01/19/2024 by Baljinder Sloan MD at [facility] IMPLANTS Left: Arm Upper ARTEGRAFT [id number] 02/28/2024 AG616 / 0000 / [id number] Explanted Type Area Linen Supply Load Builder Device Identifier Shelf Expiration Date Model / Serial / Lot Scr Kirstin Hd Slf Tap 5.0x90mm Ti 413.390 - [id number] Explanted:Qty: 1 on 08/10/2023 at [facility] IMPLANTS Left: Leg SYNTHES TRAUMA 413.390 / 413.390 / Scr + Lt Silvina 5.5 Ti - 55mm 04.354.655 - [id number] Explanted:Qty: 1 on 08/10/2023 at [facility] IMPLANTS Left: Leg SYNTHES TRAUMA .655 / 354.655 / Scr Kirstin Head 5.4sdc06pb Ti 413.355 - [id number] Explanted:Qty: 1 on 08/10/2023 at [facility] IMPLANTS Left: Leg SYNTHES TRAUMA 413.355 / 413.355 / Procedures Procedure Name Priority Date/Time Associated Diagnosis [...] POC Routine 01/13/2025 11:0 7 AM EDT PHOSPHORUS Routine 01/13/2025 9:53 AM EDT MAGNESIUM Routine 01/13/2025 9:53 AM EDT COMPREHENSIVE METABOLIC PANEL Routine 01/13/2025 9:53 AM EDT CBC W/ AUTO DIFF Routine 01/13/2025 9:5 3 AM EDT NOVA GLUCOSE POC Routine 01/13/2025 [...] AP PORTABLE STAT 01/11/2025 11:50 AM EDT MAGNESIUM STAT 01/11/2025 11:48 AM EDT HIGH SENSITIVITY TROPONIN I STAT 01/11/2025 11:48 AM EDT LACTIC ACID WITH REFLEX STAT 01/11/2025 11:48 AM EDT COMPREHENSIVE METABOLIC PANEL STAT 01/11/2025 11:48 AM EDT CBC W/ AUTO DIFF STAT 01/11/2025 11:4 8 AM EDT COVID ANTIGEN STAT 01/11/2025 11:48 AM EDT BLOOD CULTURE STAT 01/11/2025 11:48 AM EDT BLOOD CULTURE STAT 01/11/2025 11:48 AM EDT EKG-SCANNED 01/11/2025 NOVA GLUCOSE POC Routine 01/10/2025 4:39 PM EDT TX ARTERIOVENOUS ANASTOMOSIS OPEN DIRECT 01/10/2025 1:50 PM EDT Other specified complication of vascular prosthetic devices, implants and grafts, initial encounter (HCC) Case Notes IN 1000 , 1 HR (A) HC PERIPHERAL NERVE BLOCK SINGLE SHOT Routine 01/10/2025 1:30 PM EDT FS_MODEL_IP POCT , URINE Routine 01/10/2025 1:16 PM EDT CHEM8+ POC Routine 01/10/2025 1:13 PM EDT LIPID PANEL Add-On 07/19/2024 9:23 AM EST from Last 3 Months or Most Recently Relevant to Health Maintenance Results * (ABNORMAL) Glucose, Nova Meter (01/14/2025 10:47 AM EDT) Only the most recent of12 resultswithin the time period is included. POC-GLUCOSE 171(H) 70 - 110 mg/dL 01/14/2025 10:49 AM EDT [facility] Comment: In the event of poor peripheral blood flow, venous or arterial blood should be used due to the potential of erroneous results. Notified Nurse RBV Pre Billing Clinician [id number] 01/14/2025 10:49 AM EDT [facility] Blood WHOLE BLOOD / Unknown 01/14/2025 10:47 AM EDT 01/14/2025 10:49 AM EDT Narrative [facility] - 01/14/2025 10:49 AM EDT Pre Billing Clinician ID is - [id number] us Ismaeel Celia DO POINT OF CARE TEST ORDERABLES Final Result [facility] [address] [phone] * (ABNORMAL) CBC with automated diff (01/14/2025 6:15 AM EDT) Only the most recent of3 resultswithin the time period is included. WBC 7.1 4.0 - 10.0 K/ L 01/14/2025 6:33 AM EDT [facility] RBC 3.25(L) 3.93 - 5.22 M/ L 01/14/2025 6:33 AM EDT [facility] Hemoglobin 10.5(L) 11.2 - 15.7 GM/DL 01/14/2025 6:33 AM EDT [facility] Hematocrit 31.6(L) 34.1 - 44.9 % 01/14/2025 6:33 AM EDT [facility] MCV 97(H) 79 - 95 fL 01/14/2025 6:33 AM EDT [facility] MCH 32.3(H) 25.6 - 32.2 pg 01/14/2025 6:33 AM EDT [facility] MCHC 33.2 32.2 - 35.5 GM/DL 01/14/2025 6:33 AM EDT [facility] RDW 13.1 11.7 - 14.4 % 01/14/2025 6:33 AM EDT [facility] Platelets 239 140 - 375 K/CU MM 01/14/2025 6:33 AM EDT [facility] MPV 9.5 9.4 - 12.3 fL 01/14/2025 6:33 AM EDT [facility] % Neutros 66 34 - 71 % 01/14/2025 6:33 AM EDT [facility] % Lymphs 20 19 - 52 % 01/14/2025 6:33 AM EDT [facility] % Monos 11 5 - 13 % 01/14/2025 6:33 AM EDT [facility] % Eos 2 1 - 6 % 01/14/2025 6:33 AM EDT [facility] % Baso 0 0 - 1 % 01/14/2025 6:33 AM EDT [facility] NRBC Absolute <0.01 0 - 0.012 K/ul 01/14/2025 6:33 AM EDT [facility] # Neutros 4.67 1.56 - 6.13 K/ L 01/14/2025 6:33 AM EDT [facility] # Lymphs 1.41 1.18 - 3.74 K/ L 01/14/2025 6:33 AM EDT [facility] # Monos 0.76 0.24 - 0.86 K/ L 01/14/2025 6:33 AM EDT [facility] # Eos 0.14 0.04 - 0.36 K/ L 01/14/2025 6:33 AM EDT [facility] # Baso 0.03 0.01 - 0.08 K/ L 01/14/2025 6:33 AM EDT [facility] Immature Granulocytes-Re lative 0.60(H) 0.01 - 0.43 % 01/14/2025 6:33 AM EDT [facility] # IG 0.04(H) 0.00 - 0.03 K/uL 01/14/2025 6:33 AM EDT [facility] Blood Venipuncture / Unknown 01/14/2025 6:15 AM EDT 01/14/2025 6:27 AM EDT [facility] - 01/14/2025 6:33 AM EDT When [...] ORDERABLES Final Resul t Performing Organization Address City/[facility]/ZIP Co de Phone Number [facility] [address] [phone] * Magnesium (01/14/2025 6:14 AM EDT) Only the most recent of3 resultswithin the time period is included. Magnesium 1.8 1.6 - 2.6 mg/dL 01/14/2025 6:58 AM EDT [facility] Blood Venipuncture / Unknown 01/14/2025 6:14 AM EDT 01/14/2025 6:27 AM EDT Gabino Esteban MD LAB BLOOD ORDERABLES Final Resul t Performing Organization Address [facility] Co de Phone Number [facility] [address] [phone] * (ABNORMAL) Comprehensive metabolic panel (01/14/2025 6:14 AM EDT) Only the most recent of3 resultswithin the time period is included. Sodium 136 136 - 145 meq/L 01/14/2025 7:07 AM EDT [facility] Potassium 3.8 3.4 - 5.1 meq/L 01/14/2025 7:07 AM EDT [facility] Chloride 100 98 - 112 meq/L 01/14/2025 7:07 AM EDT [facility] CO2 24 22 - 29 meq/L 01/14/2025 7:07 AM EDT [facility] Calcium 8.4 8.4 - 10.2 mg/dL 01/14/2025 7:07 AM EDT [facility] Glucose 122(H) 74 - 100 mg/dL 01/14/2025 7:07 AM EDT [facility] BUN 18.9 9.8 - 20.1 mg/dL 01/14/2025 7:07 AM [facility] Creatinine 4.18(H) 0.57 - 1.11 mg/dL 01/14/2025 7:07 AM [facility] BUN/Creatinine 5(L) 8 - 20 01/14/2025 7:07 AM [facility] eGFR (mL/min/1.73m2) 12(L) >=60 mL/min/1. 73m2 01/14/2025 7:07 AM [facility] Albumin 2.8(L) 3.5 - 5.0 g/dL 01/14/2025 7:07 AM [facility] Alkaline Phosphatase 139 40 - 150 U/L 01/14/2025 7:07 AM [facility] ALT <7 <=34 U/L 01/14/2025 7:07 AM [facility] Comment: ALT2 reagent used for testing does not contain P5P supplementation and therefore may miss ALT elevations in patients with B6 deficiency. This population may be as high as 10% in the [place], with risk factors including malabsorption, drug interactions, and alcoholic hepatitis. AST 18 11 - 34 U/L 01/14/2025 7:07 AM [facility] Comment: AST2 reagent used for testing does not contain P5P supplementation and therefore may miss AST elevations in patients with B6 deficiency. This population may be as high as 10% in the [place], with risk factors including malabsorption, drug interactions, and alcoholic hepatitis. Total Bilirubin 0.5 0.2 - 1.2 mg/dL 01/14/2025 7:07 AM [facility] Protein, Total 6.5 6.4 - 8.3 g/dL 01/14/2025 7:07 AM [facility] Globulin 3.7 2.5 - 4.1 g/dL 01/14/2025 7:07 AM [facility] Anion Gap 16(H) 4 - 12 01/14/2025 7:07 AM [facility] A/G Ratio 0.8 0.7 - 1.9 01/14/2025 7:07 AM [facility] Osmolality Calc 275.5 mOsm/kg 7:07 AM EDT [facility] Blood Venipuncture / Unknown 01/14/2025 6:14 AM EDT 01/14/2025 6:27 AM EDT us Gabino Esteban MD LAB BLOOD ORDERABLES Final Resul t Performing Organization Address [facility] Co de Phone Number [facility] [address] [phone] * Phosphorus (01/13/2025 9:53 AM EDT) Phosphorus 3.1 2.5 - 4.5 mg/dL 01/13/2025 10:39 AM EDT [facility] Blood Venipuncture / Unknown 01/13/2025 9:53 AM EDT 01/13/2025 10:11 AM EDT us Gabino Esteban MD LAB BLOOD ORDERABLES Final Resul t Performing Organization Address [facility] de Phone Number [facility] [address] [phone] * CT ABDOMEN/PELVIS WITHOUT IV CONTRAST Standard [...] free fluid or adenopathy. Procedure Note Nayeli uStton MD - 01/11/2025 CT SCAN OF THE [...] ATRIAL RATE (MCT) 106 BPM GE MUSE TX Interval 164 ms GE MUSE QRS-INTERVAL (MSEC) 84 ms GE MUSE QT Interval 332 ms GE MUSE QTC Interval 432 ms GE MUSE P [place] 54 degrees GE MUSE R AXIS (MCT) 20 degrees GE MUSE T Wave [place] 44 degrees GE MUSE [place] Diagnosis Age and gender specific ECG analysis [...] by Yessica Huerta PA-C. Benedict Fleming MD IMG DIAGNOSTIC IMAGING ORDE RABLES Final Result * COVID ANTIGEN (01/11/2025 11:48 AM EDT) SARS COVID ANTIGEN Negative Negative, Invalid 01/11/2025 12:40 PM EDT [facility] Nasal Swab (Nasal) 01/11/2025 11:48 AM EDT 01/11/2025 11:56 AM EDT Narrative [facility] - 01/11/2025 12:40 PM EDT The [...] SARS-CoV-2 infection. Benedict Fleming MD MICROBIOLOGY - [facility] Final Result [facility] [address] [phone] * Lactic Acid with reflex (SJ) (01/11/2025 11:48 AM EDT) Lactic Acid Level (mmol/L) 1.2 0.5 - 2.2 mmol/L 01/11/2025 12:48 PM EDT [facility] Blood Venipuncture / Unknown 01/11/2025 11:48 AM EDT 01/11/2025 12:27 PM EDT [facility] - 01/11/2025 12:48 PM EDT Specimen slightly hemolyzed Benedict Fleming MD LAB BLOOD ORDERABLES Final Result [facility] [address] [phone] * High Sensitivity Troponin I (01/11/2025 11:48 AM EDT) Troponin I High Sensitivity (pg/mL) <5.0 <=14 pg/mL 01/11/2025 12:32 PM EDT [facility] Blood Venipuncture / Unknown 01/11/2025 11:48 AM EDT 01/11/2025 11:56 AM EDT Narrative [facility] - 01/11/2025 12:32 PM EDT Applicable to [facility] only. Effective October 25 the lab will begin using a new chemistry analyzer. HsTroponin methodology, reference ranges and critical values have changed. us Benedict Fleming MD LAB BLOOD ORDERABLES Final Result Performing Organization Address [facility]/ZIP Co de Phone Number [facility] [address] [phone] * Blood Culture (01/11/2025 11:48 AM EDT) Only the most recent of2 resultswithin the time period is included. Pathologist [facility] Result No growth in 5 days 01/16/2025 1:00 PM EDT [facility] Blood Venipuncture / Unknown 01/11/2025 11:48 AM EDT 01/11/2025 11:56 AM EDT us Benedict Fleming MD MICROBIOLOGY - GENERAL ORDE RABLES Final Result [facility] [address] [phone] * EKG-SCANNED (01/11/2025) Narrative 01/11/2025 Ordered by an unspecified provider. us Default Scanning Provider SCAN ORDERS Final Result * HC PERIPHERAL NERVE BLOCK SINGLE SHOT (01/10/2025 1:30 PM EDT) Narrative Agueda Flower MD - 01/10/2025 1:30 PM EDT Agueda Flower MD 01/10/2025 1:44 PM Peripheral Nerve Block Authorized by: Aguead Flower MD Performed by: Agueda Flower MD Patient location during procedure: pre-op Start time: 01/10/2025 1:30 PM End time: 01/10/2025 1:43 PM Reason for block: at surgeon's request Preanesthetic Checklist Completed: patient identified, IV checked, site marked, risks and benefits discussed, surgical consent, monitors and equipment checked, pre-op evaluation and timeout performed Peripheral Block Patient position: supine Prep: ChloraPrep Patient monitoring: heart rate, semiconductor testing group leader and continuous pulse ox Block type: supraclavicular [...] rate change: no Slow fractionated injection: yes Agueda Flower MD ANESTHESIA ORDERABLES Final Re sult * POCT , urine (01/10/2025 1:16 PM EDT) POC, URINE HCG Negative Negative INTERNAL QC (VALID/INVALID ) Valid Kit Lot Number [id number] Expiration Date 2026-05-31 01/10/2025 1:16 PM EDT Pro Barr MD FS_MODEL_IP_POINT OF CARE TEST ENTER/EDIT ORDERABLES Edited Result - Final * (ABNORMAL) Chem8+ POC (01/10/2025 1:13 PM EDT) POC Sodium 142 138 - 146 mmol/L 01/10/2025 1:23 PM EDT [facility] POC Potassium 4.8 3.5 - 4.9 mmol/L 01/10/2025 1:23 PM EDT [facility] POC Chloride 97(L) 98 - 109 mmol/L 01/10/2025 1:23 PM EDT [facility] POC Glucose 138(H) 70 - 105 mg/dL 01/10/2025 1:23 PM EDT [facility] POC BUN 47(H) 8 - 26 mg/dL 01/10/2025 1:23 PM EDT [facility] POC Anion Gap 14 10 - 20 mmol/L 01/10/2025 1:23 PM EDT [facility] POC IONIZED CALCIUM BENJI 1.18 1.12 - 1.32 mmol/L 01/10/2025 1:23 PM EDT [facility] POC CO2 TOTAL BENJI 36(H) 24 - 29 mmol/L 01/10/2025 1:23 PM EDT [facility] POC-Creatinine 6.3(H) 0.6 - 1.3 mg/dL 01/10/2025 1:23 PM EDT [facility] POC-EGFR 7 mL/min/1.7 3M2 01/10/2025 1:23 PM EDT [facility] Comment:Proceed with contras t if eGFR > 45 ml/min/1.73 when performed on the NovaSTAT strip Creatinine meter. POC HEMATOCRIT BENJI 32(L) 38 - 51 %PCV 01/10/2025 1:23 PM EDT [facility] POC HEMOGLOBIN BENJI 10.9(L) 12.0 - 17.0 g/dL 01/10/2025 1:23 PM EDT [facility] Blood 01/10/2025 1:13 PM EDT 01/10/2025 1:23 PM EDT Narrative [facility] - 01/10/2025 1:23 PM EDT Pre Billing Clinician ID is - [id number] us Baljinder Sloan MD POINT OF CARE TEST ORDERABLES Fi nal Result [facility] [address] [phone] * (ABNORMAL) Lipid panel (07/19/2024 9:23 AM EST) Triglycerides 216 0 - 249 mg/dL 07/19/2024 11:00 AM [facility] Cholesterol 99 0 - 199 mg/dL 07/19/2024 11:00 AM [facility] Comment: 200 to 239 mg/dL = Moderate (borderline) >239 mg/dL = High HDL Cholesterol 32(L) >=40 mg/dL 07/19/2024 11:00 AM [facility] Comment: >=60 mg/dL = Desirable <40 mg/dL = Increased Risk All other components are listed individually or are calculations VLDL Cholesterol 43.2(H) 5 - 40 mg/dL 07/19/2024 11:00 AM [facility] Cholesterol/HDL ratio 3.1 0.0 - 3.2 07/19/2024 11:00 AM [facility] LDl/HDL Ratio 1 0 - 4 07/19/2024 11:00 AM [facility] RISK COMP 3 07/19/2024 11:00 AM [facility] LDL Cholesterol, Calculated 24 0 - 99 mg/dL 07/19/2024 11:00 AM [facility] Blood Venipuncture / Unknown 07/19/2024 9:23 AM EST 07/19/2024 10:14 AM EST Marycruz Lam APRN LAB BLOOD ORDERABLES Fi nal Result [facility] [address] [phone] from Last 3 Months or Most Recently Relevant to Health Maintenance Additional Health Concerns Infection Onset Date 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) 07/23/2024 07/23/2024 Insurance MEDICAID [facility] MEDICAID OF [place] MEDICARE PART A B Advance Directives For more information, please contact: [phone] * Full Code (Latest Code Status on File) Date Activated Date Inactivated Comments 01/11/2025 2:47 PM 01/14/2025 5:18 PM * Full Code Date Activated Date Inactivated Comments 01/10/2025 12:16 PM 01/10/2025 6:40 PM * Full Code Date Activated Date Inactivated Comments 07/19/2024 9:51 AM 07/26/2024 6:05 PM If no puls e: No intervention If has pulse: Use intubation, mechanical ventilation, defibrillation, ACLS medications, or cardioversion as indicated. Call PHARMACEUTICAL DETAILER * Full Code Date Activated Date Inactivated Comments 07/19/2024 5:49 AM 07/19/2024 9:51 AM * Full Code Date Activated Date Inactivated Comments 01/19/2024 5:19 AM 01/19/2024 12:08 PM Care Teams Engineer Fishing Vessel Relationship Specialty Start Date End Date Wally Yoo MD [address] [place] [id number] PCP - General Family Medicine 01/11/25
--- OUTSIDE RECORDS SUMMARY | 2025-01-25 07:46 | XMS_ITS | Clinical Summary ---
Author Organization [employer] Address [address] [place] [address] Care Team Providers Care Post Secondary Professional Name Role Phone Wally Yoo MD Primary Care Provider [phone] Allergies Active Allergy Reactions Criticality Noted Date Comments Sulfa (Sulfonamide Antibiotics) 10/10/2022 Oxycodone-Acetaminophen Nausea Only 10/10/2022 Pt states she can tolerate hydrocodone (verified 12/19/22) Medications amLODIPine (NORVASC) 10 MG tablet Take 1 tablet (10 mg total) by mouth daily. 023 Active aspirin 81 MG EC tablet Take 1 tablet (81 mg total) by mouth daily. 023 Active atorvastatin (LIPITOR) 40 MG tablet Take [...] 22 Units subcutaneously 2 (two) times daily. 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 10/06/2022 Morbid (severe) [...] DMII (diabetes mellitus, type 2) 07/08/2016 01/19/2024 Encounters Date Type Department Care Team Description 01/11/2025 11:35 AM EDT - 01/14/2025 4:17 PM EDT [facility] [address] [place] [address] Benedict Fleming MD Elliott, Jayden, DAMIENC Mckenzie Yang DO Elbita, Omar, MD Ali, Amjad, MD Generalized weakness (Primary Dx); Primary hypertension; Nausea and vomiting, unspecified vomiting type; Chronic renal failure, unspecified CKD stage Discharge Disposition: Home or Self Care 01/11/2025 Travel 01/10/2025 1:51 PM EDT [facility]est[facility] Event [facility] [address] [place] [address] Pro Barr MD Littles, Joel T, MD 01/10/2025 12:29 PM EDT - 01/10/2025 5:38 PM EDT [facility] [place] [address] Baljinder Sloan MD Discharge Disposition: Home or Self Care 01/10/2025 10:59 AM EDT - 01/10/2025 12:29 PM EDT Surgery [facility] [address] [place] [address] Baljinder Sloan MD LEFT IJ tunneled catheter exchanged RIGHT brachiocephalic arteriovenous fistula creation 01/10/2025 Travel from Last 3 Months Social History Tobacco Use Types Packs/Day Years [...] Do you speak a language other than [place] at [facility]? No 01/12/2025 Do you want help [...] 01/11/2025 11:29 AM EDT Plan of Treatment Health Maintenance Due Date Last Done Comments CT Colonography 1970 Colonoscopy 1970 Colorectal Cancer Screening 1970 FOBT/FIT 1970 Fit-DNA (Cologuard) 1970 Sigmoidoscopy 1970 Diabetic Eye Exam 1980 Diabetic foot exam 1980 Depression Screening (12+) 1982 Tobacco Cessation Counseling and Screening (12+) 1982 HIV Screening 1985 Hepatitis C Screening 1988 Pap Smear 1991 Breast Cancer Screening 2010 DTAP/TDAP/TD VACCINES (2 - Td or Tdap) 11/04/2016 Shingles Vaccine (Zoster) (1 of 2) 2020 Hemoglobin A1C 04/20/2023 COVID-19 VACCINE (3 - season) 2024, 04/03/2021 Lipid Panel 07/19/2027 07/19/2024 Pneumococcal 50+ years Completed 10/18/2022, 2015 Influenza Vaccine Completed 05/25/2024, 05/14/2023 Medical Devices Implanted Type Area Mobile Sales Consultant Device Identifier Shelf Expiration Date Model / Serial / Lot Scr + Lt Silvina 5.5 Ti - 75mm [id number] - [id number] Implanted:Qty : 1 on 08/10/2023 at [facility] IMPLANTS Left: Leg SYNTHES TRAUMA 04354.67 5 / .354.67 5 / Plt Femur 4 Hole Left 120.551 - [id number] Implanted:Qty : 1 on 08/10/2023 at [facility] IMPLANTS Left: Leg SYNTHES TRAUMA 04120.55 1 / 120.55 1 / Scr Crtx D/L St 4.5x52 Ti Ns 414.852 - [id number] Implanted:Qty : 1 on 08/10/2023 at [facility] IMPLANTS Left: Leg SYNTHES TRAUMA 414.852 / 414.852 / Scr Kirstin Hd St [id number] Ti 413.370 - [id number] Implanted:Qty : 1 on 08/10/2023 at [facility] IMPLANTS Left: Leg SYNTHES TRAUMA 413.370 / 413.370 / Scr Kirstin Head 5.3fsl05lb Ti 413.380 - [id number] Implanted:Qty : 1 on 08/10/2023 at [facility] IMPLANTS Left: Leg SYNTHES TRAUMA 413.380 / 413.380 / Scr Kirstin Head [id number] Ti 413.365 - [id number] Implanted:Qty : 1 on 08/10/2023 at [facility] IMPLANTS Left: Leg SYNTHES TRAUMA 413.365 / 413.365 / Scr Kirstin Head 5.9izj71yr Ti 413.350 - [id number] Implanted:Qty : 2 on 08/10/2023 at [facility] IMPLANTS Left: Leg SYNTHES TRAUMA 413.350 / 413.350 / Scr Lck 5.0x46mm Ti 413.346 - [id number] Implanted:Qty : 1 on 08/10/2023 at [facility] IMPLANTS Left: Leg SYNTHES TRAUMA 413.346 / 413.346 / Washer For 5.5 Silvina Scr + 5pk 04.353.906.05 - [id number] Implanted:Qty : 2 on 08/10/2023 at [facility] IMPLANTS Left: Leg SYNTHES TRAUMA 04.353.90 6.05 / 04.353.90 6.05 / Scr + Lt Silvina 5.5 Ti - 65mm 04.354.665 - [id number] Implanted:Qty : 1 on 08/10/2023 at [facility] IMPLANTS Left: Leg SYNTHES TRAUMA 04.354.66 5 / 04.354.66 5 / Grft Vasc Collagen [id number] Ag616 - [id number] Implanted:Qty : 1 on 01/19/2024 by Baljinder Sloan MD at [facility] IMPLANTS Left: Arm Upper ARTEGRAFT [id number] 02/28/2024 AG616 / 0000 / [id number] Explanted Type Area Mobile Sales Consultant Device Identifier Shelf Expiration Date Model / Serial / Lot Scr Kirstin Hd Slf Tap 5.0x90mm Ti 413.390 - [id number] Explanted:Qty: 1 on 08/10/2023 at [facility] IMPLANTS Left: Leg SYNTHES TRAUMA 413.390 / 413.390 / Scr + Lt Silvina 5.5 Ti - 55mm 04.354.655 - [id number] Explanted:Qty: 1 on 08/10/2023 at [facility] IMPLANTS Left: Leg SYNTHES TRAUMA 04.354.655 / 04.354.655 / Scr Kirstin Head 5.8puu00mu Ti 413.355 - [id number] Explanted:Qty: 1 on 08/10/2023 at [facility] IMPLANTS Left: Leg SYNTHES TRAUMA 413.355 / [...] AUTO DIFF Routine 01/13/2025 9:53 AM EDT NOVA GLUCOSE [...] GLUCOSE POC Routine 01/10/2025 4:39 PM EDT MI ARTERIOVENOUS ANASTOMOSIS OPEN DIRECT 01/10/2025 1:50 PM [...] - 110 mg/dL 01/14/2025 10:49 AM EDT [facility] Comment: In the event of poor peripheral blood flow, venous or arterial blood should be used due to the potential of erroneous results. Notified Nurse RBV Patrol Driver [phone] 01/14/2025 10:49 AM EDT [facility] Blood WHOLE BLOOD / Unknown 01/14/2025 10:47 AM EDT 01/14/2025 10:49 AM EDT Narrative [facility] - 01/14/2025 10:49 AM EDT Patrol Driver ID is - [id number] us Ismaeel Celia DO POINT OF CARE TEST ORDERABLES Final Result [facility] [address] [phone] * (ABNORMAL) CBC with automated diff (01/14/2025 6:15 AM EDT) Only the most recent of3 resultswithin the time period is included. WBC 7.1 4.0 - 10.0 K/ L 01/14/2025 6:33 AM EDT [facility] RBC 3.25(L) 3.93 - 5.22 M/ L 01/14/2025 6:33 AM EDT [facility] Hemoglobin 10.5(L) 11.2 - 15.7 GM/DL 01/14/2025 6:33 AM EDT [facility] Hematocrit 31.6(L) 34.1 - 44.9 % 01/14/2025 6:33 AM EDT [facility] MCV 97(H) 79 - 95 fL 01/14/2025 6:33 AM EDT [facility] MCH 32.3(H) 25.6 - 32.2 pg 01/14/2025 6:33 AM EDT [facility] MCHC 33.2 32.2 - 35.5 GM/DL 01/14/2025 6:33 AM EDT [facility] RDW 13.1 11.7 - 14.4 % 01/14/2025 6:33 AM EDT [facility] Platelets 239 140 - 375 K/CU MM 01/14/2025 6:33 AM EDT [facility] MPV 9.5 9.4 - 12.3 fL 01/14/2025 6:33 AM EDT [facility] % Neutros 66 34 - 71 % 01/14/2025 6:33 AM EDT [facility] % Lymphs 20 19 - 52 % 01/14/2025 6:33 AM EDT [facility] % Monos 11 5 - 13 % 01/14/2025 6:33 AM EDT [facility] % Eos 2 1 - 6 % 01/14/2025 6:33 AM EDT [facility] % Baso 0 0 - 1 % 01/14/2025 6:33 AM EDT [facility] NRBC Absolute <0.01 0 - 0.012 K/ul 01/14/2025 6:33 AM EDT [facility] # Neutros 4.67 1.56 - 6.13 K/ L 01/14/2025 6:33 AM EDT [facility] # Lymphs 1.41 1.18 - 3.74 K/ L 01/14/2025 6:33 AM EDT [facility] # Monos 0.76 0.24 - 0.86 K/ L 01/14/2025 6:33 AM EDT [facility] # Eos 0.14 0.04 - 0.36 K/ L 01/14/2025 6:33 AM EDT [facility] # Baso 0.03 0.01 - 0.08 K/ L 01/14/2025 6:33 AM EDT [facility] Immature Granulocytes-Re lative 0.60(H) 0.01 - 0.43 % 01/14/2025 6:33 AM EDT [facility] # IG 0.04(H) 0.00 - 0.03 K/uL 01/14/2025 6:33 AM EDT [facility] Blood Venipuncture / Unknown 01/14/2025 6:15 AM EDT 01/14/2025 6:27 AM EDT Narrative [facility] - 01/14/2025 6:33 AM EDT [...] MD LAB BLOOD ORDERABLES Final Resul t [facility] [address] [phone] * Magnesium (01/14/2025 6:14 AM EDT) Only the most recent of3 resultswithin the time period is included. Magnesium 1.8 1.6 - 2.6 mg/dL 01/14/2025 6:58 AM EDT [facility] Blood Venipuncture / Unknown 01/14/2025 6:14 AM EDT 01/14/2025 6:27 AM EDT us Gabino Esteban MD LAB BLOOD ORDERABLES Final Resul t [facility] [address] [phone] * (ABNORMAL) Comprehensive metabolic panel (01/14/2025 6:14 AM EDT) Only the most recent of3 resultswithin the time period is included. Sodium 136 136 - 145 meq/L 01/14/2025 7:07 AM EDT [facility] Potassium 3.8 3.4 - 5.1 meq/L 01/14/2025 7:07 AM EDT [facility] Chloride 100 98 - 112 meq/L 01/14/2025 7:07 AM EDT [facility] CO2 24 22 - 29 meq/L 01/14/2025 7:07 AM EDT [facility] Calcium 8.4 8.4 - 10.2 mg/dL 01/14/2025 7:07 AM EDT [facility] Glucose 122(H) 74 - 100 mg/dL 01/14/2025 7:07 AM EDT [facility] BUN 18.9 9.8 - 20.1 mg/dL 01/14/2025 7:07 AM EDT [facility] Creatinine 4.18(H) 0.57 - 1.11 mg/dL 01/14/2025 7:07 AM EDT [facility] BUN/Creatinine 5(L) 8 - 20 01/14/2025 7:07 AM EDT [facility] eGFR (mL/min/1.73m2) 12(L) >=60 mL/min/1. 73m2 01/14/2025 7:07 AM EDT [facility] Albumin 2.8(L) 3.5 - 5.0 g/dL 01/14/2025 7:07 AM EDT [facility] Alkaline Phosphatase 139 40 - 150 U/L 01/14/2025 7:07 AM EDT [facility] ALT <7 <=34 U/L 01/14/2025 7:07 AM EDT [facility] Comment: ALT2 reagent used for testing does not contain P5P supplementation and therefore may miss ALT elevations in patients with B6 deficiency. This population may be as high as 10% in the [place], with risk factors including malabsorption, drug interactions, and alcoholic hepatitis. AST 18 11 - 34 U/L 01/14/2025 7:07 AM EDT [facility] Comment: AST2 reagent used for testing does not contain P5P supplementation and therefore may miss AST elevations in patients with B6 deficiency. This population may be as high as 10% in the [place], with risk factors including malabsorption, drug interactions, and alcoholic hepatitis. Total Bilirubin 0.5 0.2 - 1.2 mg/dL 01/14/2025 7:07 AM EDT [facility] Protein, Total 6.5 6.4 - 8.3 g/dL 01/14/2025 7:07 AM EDT [facility] Globulin 3.7 2.5 - 4.1 g/dL 01/14/2025 7:07 AM EDT [facility] Anion Gap 16(H) 4 - 12 01/14/2025 7:07 AM EDT [facility] A/G Ratio 0.8 0.7 - 1.9 01/14/2025 7:07 AM EDT [facility] Osmolality Calc 275.5 mOsm/kg 7:07 AM EDT [facility] Blood Venipuncture / Unknown 01/14/2025 6:14 AM EDT 01/14/2025 6:27 AM EDT us Gabino Esteban MD LAB BLOOD ORDERABLES Final Resul t [facility] [address] [place] [address] * Phosphorus (01/13/2025 9:53 AM EDT) Phosphorus 3.1 2.5 - 4.5 mg/dL 01/13/2025 10:39 AM EDT [facility] Blood Venipuncture / Unknown 01/13/2025 9:53 AM EDT 01/13/2025 10:11 AM EDT us Gabino Esteban MD LAB BLOOD ORDERABLES Final Resul t [facility] [address] [phone] * CT ABDOMEN/PELVIS WITHOUT IV CONTRAST Standard [...] ATRIAL RATE (MCT) 106 BPM GE MUSE MI Interval 164 ms GE MUSE QRS-INTERVAL (MSEC) 84 ms GE MUSE QT Interval 332 ms GE MUSE QTC Interval 432 ms GE MUSE P [place] 54 degrees GE MUSE R AXIS (MCT) 20 degrees GE MUSE T Wave [place] 44 degrees GE MUSE [place] Diagnosis Age and gender specific ECG analysis Sinus tachycardia Low voltage QRS Borderline ECG When compared with ECG of 21-JUL-2024 08:41, No significant change was found Confirmed by Cruz ADLER, KARI ([id number]) on 01/15/2025 9:08:45 AM GE MUSE [...] Benedict Fleming MD IMG DIAGNOSTIC IMAGING ORDE CARITO Final Result * COVID ANTIGEN (01/11/2025 11:48 AM EDT) SARS COVID ANTIGEN Negative Negative, Invalid 01/11/2025 12:40 PM EDT [facility] Nasal Swab (Nasal) 01/11/2025 11:48 AM EDT 01/11/2025 11:56 AM EDT Narrative [facility] - 01/11/2025 12:40 PM EDT [...] SARS-CoV-2 infection. Benedict Fleming MD MICROBIOLOGY - [facility] MASHA ARZATE Final Result [facility] [address] [place] [address], [facility] [phone] * Lactic Acid with reflex (SJ) (01/11/2025 11:48 AM EDT) Lactic Acid Level (mmol/L) 1.2 0.5 - 2.2 mmol/L 01/11/2025 12:48 PM EDT [facility] Blood Venipuncture / Unknown 01/11/2025 11:48 AM EDT 01/11/2025 12:27 PM EDT Narrative [facility] - 01/11/2025 12:48 PM EDT Specimen slightly hemolyzed Benedict Fleming MD LAB BLOOD ORDERABLES Final Result Performing Organization Address [facility]/ZIP Co de Phone Number [facility] [address] [place] [address], [facility] [phone] * High Sensitivity Troponin I (01/11/2025 11:48 AM EDT) Troponin I High Sensitivity (pg/mL) <5.0 <=14 pg/mL 01/11/2025 12:32 PM EDT [facility] Blood Venipuncture / Unknown 01/11/2025 11:48 AM EDT 01/11/2025 11:56 AM EDT Narrative [facility] - 01/11/2025 12:32 PM EDT Applicable to [facility] only. Effective October 25 the lab will begin using a new chemistry analyzer. HsTroponin methodology, reference ranges and critical values have changed. Benedict Fleming MD LAB BLOOD ORDERABLES Final Result [facility] [address] [place] [address], [facility] [phone] * Blood Culture (01/11/2025 11:48 AM EDT) Only the most recent of2 resultswithin the time period is included. Result No growth in 5 days 01/16/2025 1:00 PM EDT [facility] Blood Venipuncture / Unknown 01/11/2025 11:48 AM EDT 01/11/2025 11:56 AM EDT us Benedict Fleming MD MICROBIOLOGY - GENERAL ORDE [facility] Final Result [facility] [address] [place] [address], [facility] [phone] * EKG-SCANNED (01/11/2025) Narrative 01/11/2025 Ordered by [...] supine Prep: ChloraPrep Patient monitoring: heart rate, school bus monitor and continuous pulse ox Block type: supraclavicular [...] - 146 mmol/L 01/10/2025 1:23 PM EDT [facility] POC Potassium 4.8 3.5 - 4.9 mmol/L 01/10/2025 1:23 PM EDT [facility] POC Chloride 97(L) 98 - 109 mmol/L 01/10/2025 1:23 PM EDT [facility] POC Glucose 138(H) 70 - 105 mg/dL 01/10/2025 1:23 PM EDT [facility] POC BUN 47(H) 8 - 26 mg/dL 01/10/2025 1:23 PM EDT [facility] POC Anion Gap 14 10 - 20 mmol/L 01/10/2025 1:23 PM EDT [facility] POC IONIZED CALCIUM BENJI 1.18 1.12 - 1.32 mmol/L 01/10/2025 1:23 PM EDT [facility] POC CO2 TOTAL BENJI 36(H) 24 - 29 mmol/L 01/10/2025 1:23 PM EDT [facility] POC-Creatinine 6.3(H) 0.6 - 1.3 mg/dL 01/10/2025 1:23 PM EDT [facility] POC-EGFR 7 mL/min/1.7 3M2 01/10/2025 1:23 PM EDT [facility] Comment:Proceed with contras t if eGFR > 45 ml/min/1.73 when performed on the NovaSTAT strip Creatinine meter. POC HEMATOCRIT BENJI 32(L) 38 - 51 %PCV 01/10/2025 1:23 PM EDT [facility] POC HEMOGLOBIN BENJI 10.9(L) 12.0 - 17.0 g/dL 01/10/2025 1:23 PM EDT [facility] Blood 01/10/2025 1:13 PM EDT 01/10/2025 1:23 PM EDT Narrative [facility] - 01/10/2025 1:23 PM EDT Patrol Driver ID is - [id number] us Baljinder Sloan MD POINT OF CARE TEST ORDERABLES Fi nal Result [facility] [address] [place] [address] * (ABNORMAL) Lipid panel (07/19/2024 9:23 AM EST) Triglycerides 216 0 - 249 mg/dL 07/19/2024 11:00 AM EST [facility] Cholesterol 99 0 - 199 mg/dL 07/19/2024 11:00 AM EST [facility] Comment: 200 to 239 mg/dL = Moderate (borderline) >239 mg/dL = High HDL Cholesterol 32(L) >=40 mg/dL 07/19/2024 11:00 AM EST [facility] Comment: >=60 mg/dL = Desirable <40 mg/dL = Increased Risk All other components are listed individually or are calculations VLDL Cholesterol 43.2(H) 5 - 40 mg/dL 07/19/2024 11:00 AM [facility] Cholesterol/HDL ratio 3.1 0.0 - 3.2 07/19/2024 11:00 AM EST [facility] LDl/HDL Ratio 1 0 - 4 07/19/2024 11:00 AM EST [facility] RISK COMP 3 07/19/2024 11:00 AM EST [facility] LDL Cholesterol, Calculated 24 0 - 99 mg/dL 07/19/2024 11:00 AM EST [facility] Blood Venipuncture / Unknown 07/19/2024 9:23 AM EST 07/19/2024 10:14 AM EST us Marycruz Lam SENIOR TECHNICAL RECRUITER LAB BLOOD ORDERABLES Fi nal Result Performing Organization Address City/State/[facility] Co de Phone Number [facility] [address] [phone] from Last 3 Months or Most Recently Relevant to Health Maintenance Additional Health Concerns Infection Onset Date 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 Call DIRECTOR OF CURRICULUM AND INSTRUCTION * Full Code Date Activated Date Inactivated Comments 07/19/2024 5:49 AM 07/19/2024 9:51 AM * Full Code Date Activated Date Inactivated Comments 01/19/2024 5:19 AM 01/19/2024 12:08 PM Care Teams Post Secondary Professional Relationship Specialty Start Date End Date Wally Yoo MD [address] [place] [address] PCP - General Family Medicine 01/11/25
--- OUTSIDE RECORDS SUMMARY | 2025-01-25 07:46 | XMS_ITS | Data Portability ---
Author Organization [facility] [place] [facility] Address [address] [place] [address] Care Team Providers Care Pulmonary Disease Specialist Name Role Phone SYLVESTER HERNANDEZ Primary Care Provider Assessment No assessment recorded. Plan of Treatment Reminders Order Date Submit Date Provider Last Modified By Organization Details Last Modified Time Details Appointments None recorded. Lab None recorded. Referral None recorded. Procedures None recorded. Surgeries None recorded. Imaging None recorded. Medication Orders calcitonin (salmon) 200 unit/actuat ion nasal spray 2023 024 [facility], [address], [place], [place], [id number], 12:05:02 Patient TargetsNo targets recorded. Patient InstructionsNo instructions recorded. Reason for Referral None Reported. Results Created Date Observation Date Name Description Value Unit Range Abnormal Flag Note LastModifiedBy Organization Detail LastModifiedTime 09/01/19 24 09/01/2023 XR, femur , 2 or more view Tara perdomo [facility] [address] [address] Leslie kumar Name: CARLA Myrna KWADWO kumar : 1969 Leslie kumar 32 Orderi ng Provid er: TOM HIRSCH EXAM DATE: 2023 EXAM: XR LT FEMUR, 2 OR MORE VWS HISTOR Y: Follow -up of prior surger y COMPAR SHERIE: None. FINDIN GS: The leslie t is status post ORIF of a subtro sharifa enoc fractu re of the left femur with a long stem intram edulla ry melvi and bridgi ng dynami c compre ssion screw. This fractu re appear s healed . There is more recent fixati on of a fractu re of the distal metaph ysis of the femur with a medial plate and bridgi ng screws . There is no eviden ce of loosen ing of the hardwa re. There is mild residu al displa cement of the fractu re. There is a large joint effusi on in the left knee with air projec ting in the joint. There are modera te degene rative change s. There is prior resect ion of the proxim al fibula r shaft. IMPRES LIBRADO: 1. The leslie t is status post recent fixati on of a fractu re of the distal metaph ysis and epiphy sis of the left femur. There is no eviden ce of loosen ing of the hardwa re. 2. There is prior fixati on of a subtro sharifa enoc fractu re of the left femur. Interp reted By: Hyun sousa MD Electr onical ly Signed By: Hyun sousa MD on 10:38 AM [email or web address] [facility] [address], [place], [address], 09/01/2023 11:07:22 09/15/19 24 09/15/2023 XR, femur , 2 or more view [facility] [address] [place] [address] Leslie kumar Name: CARLA Myrna BURKETT Leslie kumar : 1969 Paticordell kumar 32 Orderi ng Provid er: TOM HIRSCH EXAM DATE: 2023 EXAM: XR LT FEMUR, 2 OR MORE VWS HISTOR Y: Follow -up of prior surger y COMPAR SHERIE: 024 FINDIN GS: The leslie t is status post ORIF of a subtro sharifa enoc fractu re of the left femur with a long stem intram edulla ry melvi and bridgi ng dynami c compre ssion screw. This fractu re appear s healed . There is more recent fixati on of a fractu re of the distal metaph ysis of the femur with a medial plate and bridgi ng screws . There is no eviden ce of loosen ing of the hardwa re. There is mild residu al displa cement of the fractu re. There is a large joint effusi on in the left knee with air projec ting in the joint. There are modera te degene rative change s. IMPRES LIBRADO: 1. The patien t is status post recent fixati on of a fractu re of the distal metaph ysis and epiphy sis of the left femur. There is no eviden ce of loosen ing of the hardwa re. 2. There is prior fixati on of a subtro sharifa enoc fractu re of the left femur. Interp reted By: Hyun sousa MD Electr onical ly Signed By: Hyun sousa MD on 10:28 AM [email or web address] [facility] [address], [place], [address], 09/15/2023 11:38:36 10/27/19 24 10/27/2023 XR, femur , 2 or more view [facility] [address] [place] [address] Leslie kumar Name: CARLA kumar : 1969 Leslie kumar 32 Orderi ng Provid er: ANGELIQUE SHOEMAKER EXAM DATE: 2023 EXAM: XR LT FEMUR, 2 OR MORE VWS HISTOR Y: Follow -up of prior surger y COMPAR SHERIE: FINDIN GS: The patien t is status post ORIF of a subtro sharifa enoc fractu re of the left femur with a long stem intram edulla ry melvi and bridgi ng dynami c compre ssion screw. This fractu re appear s healed . There is more recent fixati on of a fractu re of the distal metaph ysis of the femur with a medial plate and bridgi ng screws . There is no eviden ce of loosen ing of the hardwa re. There is mild residu al displa cement of the fractu re.. There are modera te degene rative change s. IMPRES LIBRADO: 1. The paticordell t is status post recent fixati on of a fractu re of the distal metaph ysis and epiphy sis of the left femur. There is no eviden ce of loosen ing of the hardwa re. 2. There is prior fixati on of a subtro sharifa enoc fractu re of the left femur. Interp reted By: Hyun sousa MD Electr onical ly Signed By: Hyun sousa MD on 11:09 AM [facility] [address] , [place], [address], 10/27/2023 12:05:49 12/15/19 24 12/15/2023 XR, knee, 3 view [facility] [address] [address] Leslie kumar Name: CARLA Norris BURKETTMichael kumar : 1969 Patic[place]ell t 32 Orderi ng Provid er: ANGELIQUE SHOEMAKER EXAM DATE: 2023 EXAM: XR LT KNEE 3 VIEWS COMPAR SHERIE: HISTOR Y: Left knee pain. FINDIN GS: There is prior fixati on of a fractu re of the distal metaph ysis of the left femur with a medial plate and multip le bridgi ng screws . The second and third most distal screw extend s near the fractu re line and there is adjace nt lucenc y. There are 2 screws in the epiphy sis of the distal femur. There is an intram edulla ry melvi extend ing to the fractu re. There are severe degene rative change s in the left knee. There is near comple te latera l joint space loss. There is modera te to severe margin al spurri ng. There is appare nt below- the-kn ee amputa tion. Contra latera l knee: There are mild to modera te degene rative change s. IMPRES LIBRADO: 1. There is prior fixati on of a fractu re of the distal metaph ysis of the left femur. There is lucenc y along the fractu re line, and 2 screws projec t near the fractu re line with adjace nt lucenc y. 2. There are severe degene rative change s in the left knee. Interp reted By: Hyun sousa MD Electr onical ly Signed By: Hyun sousa MD on 9:38 AM [facility] [address] , [place], [address], 12/18/2023 08:01:15 02/09/20 24 02/09/2024 XR, femur , 2 or more view [facility] [address] [address] Paticordell kumar Name: CARLA kumar : 1969 Patic[address] t 32 Orderi ng Provid er: ANGELIQUE SHOEMAKER EXAM DATE: 2023 EXAM: XR LT FEMUR, 2 OR MORE VWS COMPAR SHERIE: HISTOR Y: Left knee pain. FINDIN GS: There is prior fixati on of a fractu re of the distal metaph ysis of the left femur with a medial plate and multip le bridgi ng screws . The second and third most distal screw extend s near the fractu re line and there is adjace nt lucenc y. There are 2 screws in the epiphy sis of the distal femur. There is an intram edulla ry melvi extend ing to the fractu re. There are severe degene rative change s in the left knee. There is near comple te latera l joint space loss. There is modera te to severe margin al spurri ng. IMPRES LIBRADO: 1. There is prior fixati on of a fractu re of the distal metaph ysis of the left femur. There is lucenc y along the fractu re line, and 2 screws projec t near the fractu re line with adjace nt lucenc y. 2. There are severe degene rative change s in the left knee. Interp reted By: Hyun sousa MD Electr onical ly Signed By: Hyun sousa MD on 02/09/20 24 9:56 AM [facility] [address] , [place], [address], 02/15/2024 14:56:05 08/11/19 25 08/11/2024 XR, femur , 2 or more view [facility] [address] [address] Paticordell t Name: CARLA kumar : 1969 Patic[address] t 32 Orderi ng Provid er: ANGELIQUE SHOEMAKER EXAM DATE: 2024 EXAM: XR LT FEMUR, 2 OR MORE VWS COMPAR SHERIE: 024 HISTOR Y: Left knee pain. FINDIN GS: There is prior fixati on of a fractu re of the distal metaph ysis of the left femur with a medial plate and multip le bridgi ng screws . The fractu re is unchan ged in alignm ent from the prior study. There is sclero sis which is most charac terist ic of healin g. The second and third most distal screw extend s near the fractu re line and there is adjace nt lucenc y. There are 2 screws in the epiphy sis of the distal femur. There is an intram edulla ry melvi extend ing to the fractu re. There are severe degene rative change s in the left knee. There is near comple te latera l joint space loss. There is modera te to severe margin al spurri ng. IMPRES LIBRADO: 1. There is prior fixati on of a fractu re of the distal metaph ysis of the left femur. This fractu re is unchan ged in alignm ent from the prior study and there is sclero sis consis tent with healin g. 2. There are severe degene rative change s in the left knee. Interp reted By: Hyun sousa MD Electr onical ly Signed By: Hyun sousa MD on 08/11/19 11:43 AM [email or web address] [facility] [address] , [place], [address], 08/11/2024 15:15:30 Result Notes Documentation Provider Name and Address Organization Details Recorded Time Xr, Femur, 2 Or More View : [facility] [address] [place] [address] Patient Name: CARLA BURKETT Patient : 1970 Patient Ordering Provider: TOM HIRSCH EXAM DATE: 09/15/2023 EXAM: XR LT FEMUR, 2 OR MORE VWS HISTORY: Follow-up of prior surgery COMPARISON: 09/01/2023 FINDINGS: The patient is status post ORIF of a subtrochanteric fracture of the left femur with a long stem intramedullary melvi and bridging dynamic compression screw. This fracture appears healed. There is more recent fixation of a fracture of the distal metaphysis of the femur with a medial plate and bridging screws. There is no evidence of loosening of the hardware. There is mild residual displacement of the fracture. There is a large joint effusion in the left knee with air projecting in the joint. There are moderate degenerative changes. IMPRESSION: 1. The patient is status post recent fixation of a fracture of the distal metaphysis and epiphysis of the left femur. There is no evidence of loosening of the hardware. 2. There is prior fixation of a subtrochanteric fracture of the left femur. Interpreted By: Benedict Hamlin MD HIRSCH PA-C [address] [place] [address], [phone], [facility] 09/15/2023 11:38:36 Xr, Femur, 2 Or More View : [facility] [address] [place] [address] Patient Name: CARLA BURKETT Patient : 1970 Patient Ordering Provider: ANGELIQUE SHOEMAKER EXAM DATE: 10/27/2023 EXAM: XR LT FEMUR, 2 OR MORE VWS HISTORY: Follow-up of prior surgery COMPARISON: 09/15/2023 FINDINGS: The patient is status post ORIF of a subtrochanteric fracture of the left femur with a long stem intramedullary melvi and bridging dynamic compression screw. This fracture appears healed. There is more recent fixation of a fracture of the distal metaphysis of the femur with a medial plate and bridging screws. There is no evidence of loosening of the hardware. There is mild residual displacement of the fracture.. There are moderate degenerative changes. IMPRESSION: 1. The patient is status post recent fixation of a fracture of the distal metaphysis and epiphysis of the left femur. There is no evidence of loosening of the hardware. 2. There is prior fixation of a subtrochanteric fracture of the left femur. Interpreted By: Benedict Hamlin MD LIQUE SHEOMAKER PA-C [employer] [place], [address], [facility] 10/27/2023 12:05:49 Xr, Knee, 3 [facility] : [facility] [address] [place] [address] Patient Name: CARLA BURKETT Patient : 1970 Patient Ordering Provider: ANGELIQUE SHOEMAKER EXAM DATE: 12/15/2023 EXAM: XR LT KNEE 3 VIEWS COMPARISON: 10/27/2023 HISTORY: Left knee pain. FINDINGS: There is prior fixation of a fracture of the distal metaphysis of the left femur with a medial plate and multiple bridging screws. The second and third most distal screw extends near the fracture line and there is adjacent lucency. There are 2 screws in the epiphysis of the distal femur. There is an intramedullary melvi extending to the fracture. There are severe degenerative changes in the left knee. There is near complete lateral joint space loss. There is moderate to severe marginal spurring. There is apparent rirhk-mes-nwtl amputation. Contralateral knee: There are mild to moderate degenerative changes. IMPRESSION: 1. There is prior fixation of a fracture of the distal metaphysis of the left femur. There is lucency along the fracture line, and 2 screws project near the fracture line with adjacent lucency. 2. There are severe degenerative changes in the left knee. Interpreted By: Benedict Hamlin MD LIQUE SHOEMAKER PA-C [address] [place], [address], [facility] 12/18/2023 08:01:15 Xr, Femur, 2 Or More [facility] : [facility] [address] [place] [address] Patient Name: CARLA BURKETT Patient : 1970 Patient Ordering Provider: ANGELIQUE SHOEMAKER EXAM DATE: 02/09/2024 EXAM: XR LT FEMUR, 2 OR MORE VWS COMPARISON: 12/15/2023 HISTORY: Left knee pain. FINDINGS: There is prior fixation of a fracture of the distal metaphysis of the left femur with a medial plate and multiple bridging screws. The second and third most distal screw extends near the fracture line and there is adjacent lucency. There are 2 screws in the epiphysis of the distal femur. There is an intramedullary melvi extending to the fracture. There are severe degenerative changes in the left knee. There is near complete lateral joint space loss. There is moderate to severe marginal spurring. IMPRESSION: 1. There is prior fixation of a fracture of the distal metaphysis of the left femur. There is lucency along the fracture line, and 2 screws project near the fracture line with adjacent lucency. 2. There are severe degenerative changes in the left knee. Interpreted By: Benedict Hamlin MD LIQUE SHOEMAKER PA-C [address] [place] [address], [phone], [facility] 02/15/2024 14:56:06 Xr, Femur, 2 Or More View : [facility] [address] [place] [address] Patient Name: CARLA BURKETT Patient : 1970 Patient Ordering Provider: ANGELIQUE SHOEMAKER EXAM DATE: 08/11/2024 EXAM: XR LT FEMUR, 2 OR MORE VWS COMPARISON: 06/11/2024 HISTORY: Left knee pain. FINDINGS: There is prior fixation of a fracture of the distal metaphysis of the left femur with a medial plate and multiple bridging screws. The fracture is unchanged in alignment from the prior study. There is sclerosis which is most characteristic of healing. The second and third most distal screw extends near the fracture line and there is adjacent lucency. There are 2 screws in the epiphysis of the distal femur. There is an intramedullary melvi extending to the fracture. There are severe degenerative changes in the left knee. There is near complete lateral joint space loss. There is moderate to severe marginal spurring. IMPRESSION: 1. There is prior fixation of a fracture of the distal metaphysis of the left femur. This fracture is unchanged in alignment from the prior study and there is sclerosis consistent with healing. 2. There are severe degenerative changes in the left knee. Interpreted By: Benedict Hamlin MD LIQUE SHOEMAKER PA-C [address] [place] [address], [phone], [facility] 08/11/2024 15:15:30 Procedures Surgical History Date Name Laterality Status Provider Name and Address Organization Details Recorded Time 4 procedure on knee completed [facility] 08/10/2024 16:23:20 total replacement of left knee joint completed [facility] 08/10/2024 16:22:55 Imaging Results None recorded. Procedure Notes None recorded. Medical Equipment None Reported. Allergies Allergen ID Allergen Name Allergen Category Reaction Reaction Severity Criticality Documentation Date Start Date Code Code System Note Provider Name and Address Organization Details Recorded Time 108651 Substance with sulfonami de structure and antibacte rial mechanism of action (substanc e) medicatio n Not available Not available Not available 09/01/2023 07907 8003 SNOMED Martina Johnson [facility] 4 10:23:08 Medications Name Sig Start Date Stop Date Status Note LastModified by Organization Details LastModified Time atorvastatin 40 mg tablet Take 1 tablet every day by oral route. active Not Available Not Available No t Available carvedilol 12.5 mg tablet Take 1 tablet twice a day by oral route. active Not Available Not Available No t Available Carafate 1 gram tablet Take 1 tablet 4 times a day by oral route. active Not Available Not Available No t Available loperamide 2 mg tablet Take by oral route. active Not Available Not Available Not Available calcitonin (salmon) 200 unit/actuati on nasal spray Take 1 spray every day by nasal route. 2023 active Not Available Not Available Not Avai lable amlodipine 10 mg tablet Take 1 tablet every day by oral route. active Not Available Not Available No t Available promethazine 25 mg tablet Take 1 tablet every 4 hours by oral route. active Not Available Not Available Not Available Imdur 60 mg tablet,exten ded release Take 1 tablet every day by oral route. active Not Available Not Available No t Available aspirin 81 mg tablet Take by oral route. active Not Available Not Available Not Available acetaminophe n 500 mg capsule Take 2 capsules every 6 hours by oral route. active Not Available Not Available Not Available duloxetine 30 mg capsule,david yed release Take 1 capsule every day by oral route. active Not Available Not Available No t Available insulin lispro active Not Available Not Available Not Available Benadryl active Not Available Not Avai lable Not Available lidocaine active Not Available Not Day ilable Not Available Florastor active Not Available Not Day ilable Not Available Semglee (insulin glargine-yfg n) 100 unit/mL subcutaneous solution Inject by subcutaneou s route. active Not Available Not Available No t Available Vitals Date Recorded Body height Body mass index (BMI) Body weight Provider Name and Address Organization Details Last Updated DateTime 08/11/2024 167.64 cm 30 kg/m2 18668.18 g [facility] 08/11/2024 10:17:55 Date Recorded Body height Body mass index (BMI) Body weight Provider Name and Address Organization Details Last Updated DateTime 09/15/2023 167.64 cm 30 kg/m2 78029.18 g [facility] 09/15/2023 10:11:47 Date Recorded Body height Body mass index (BMI) Body weight Provider Name and Address Organization Details Last Updated DateTime 10/27/2023 167.64 cm 30 kg/m2 68895.18 g [facility] 10/27/2023 10:56:38 Date Recorded Body height Body mass index (BMI) Body weight Provider Name and Address Organization Details Last Updated DateTime 12/15/2023 167.64 cm 30 kg/m2 09611.18 g [facility] 12/15/2023 09:15:46 Date Recorded Body height Provider Name an d Address Organization Details Last Updated DateTime 02/09/2024 167.64 cm Terrence [address] [facility] 02/09/2024 09:57:10 Social History None recorded. Functional Status None recorded. Mental Status None recorded. Family History Nothing Reported. Medical History No medical history recorded. Gynecological HistoryNo gynecological history recorded. Obstetrics History GPAL:G 0 P 0 0 0 0 Past Encounters Encounter ID Performer Location Encounter Start Date Encounter Closed Date Diagnosis/Indication Diagnosis SNOMED-CT Code Diagnosis ICD10 Code Diagnosis Note [id number] DANETTE Arredondo MD SURGERY SCHEDULE [address] [place] [address] 08/11/2023 14:40:14 08/13/2023 14:34:50 [id number] TOM HIRSCH PA-C [facility] [address] [address] 09/01/2023 10:10:45 09/01/2023 10:52:33 Periprosthetic fracture [id number] M97.12XA Ms. Burkett is 3 weeks status post left distal PPFX ORIF. Surgery date 08/10/23Over all, she reports minimal to no pain. Radiograph s today are within normal limits. She will remain nonweightb earing. She may begin active range of motion exercises. Further wound care instructio ns were given today. Dante removed in sterile fashion revealing an intact wound. Patient provided with a T scope brace today which will remain from 0 to 60 degrees locked at all times. She will follow-up in [facility] 2 weeks for routine evaluation of radiograph s and to check on her progress going forward. I deem a post-op ROM knee brace both reasonable and medically necessary for its ability to provide appropriat e support, allow for controlled range of motion, and protect the fracture during ambulation and transfers both in and outside the home; thereby promoting optimal healing s/p ORIF periprosth etic fracture. This is particular ly crucial for the patient's condition, as it allows gradual adjustment of knee flexion and extension, supporting the joint during the recovery phase. The brace is expected to enhance patient compliance , decrease the risk of complicati ons related to joint stiffness, and contribute to an expedited rehabilita tion process. This specific knee brace is deemed medically necessary to facilitate functional rehabilita tion, prevent complicati ons related to immobility , and support the patient's overall recovery trajectory . [id number] TOM HIRSCH PA-C [facility] [address] [place] [id number] 09/15/2023 09:48:21 09/15/2023 11:09:59 Periprosthetic fracture [id number] M97.12XA Burkett is 6- weeks status post left distal PPFX ORIF. Surgery date 08/10/23Over all, she reports minimal to no pain. Radiograph s today are within remain within normal limits. She will remain nonweightb earing. She may continue active range of motion exercises. Further wound care instructio ns were given today. Wound has healed nicely. Continue with physical therapy regimen at [facility] in [place] . If at all possible, I would like for the patient to remain at [facility] to continue with therapy until she is able to undergo replacemen t of her prosthetic . We will also begin calcitonin nasal spray she will supplement vitamin C and vitamin D along with this to promote further bone healing. Patient will continue in a T scope brace today which will be adjusted to 0 to 90 degrees locked at all times. She will follow-up in [facility] 4-6 weeks for routine evaluation of radiograph s and to check on her progress going forward. [id number] ANGELIQUE SHOEMAKER PA-C [facility] [address] [place] [id number] 10/27/2023 10:42:33 10/27/2023 11:18:16 Periprosthetic fracture [id number] M97.12XA Burkett is 10- weeks status post left distal PPFX ORIF. Surgery date 08/10/23Over all, she reports minimal to no pain. She has not been able to do the calcitonin salmon spray due to changing facilities and orders got lost in translatio n so she is going to try now. We are going to initiate limited/TT WB with her prosthesis assisted with PT. Geronimo wrap over stub to help with swelling. Radiograph s today are within normal limits. She may continue active range of motion exercises. We will also begin calcitonin nasal spray she will supplement vitamin C and vitamin D along with this to promote further bone healing. Patient will continue in a T scope brace today which will be adjusted to 0 to 90 degrees locked at all times. She will follow-up in approximat galen 6-8 weeks for routine evaluation of radiograph s and to check on her progress going forward. [id number] ANGELIQUE SHOEMAKER PA-C [facility] [address] [id number] 12/15/2023 08:44:17 12/15/2023 09:52:35 Periprosthetic fracture [id number] M97.12XA Ms. Burkett is 4 months status post left distal PPFX ORIF. Surgery date 08/10/23Over all, she reports minimal to no pain. She has not been able to do the calcitonin salmon spray due to changing facilities and orders got lost in [facility] so she is going to try now. We are going to initiate progressiv e WBAT, in Tscope 0-100. Geronimo wrap over stub to help with swelling. Radiograph s today are within normal limits. She may continue active range of motion exercises. We will also begin calcitonin nasal spray she will supplement vitamin C and vitamin D along with this to promote further bone healing. Patient will continue in a T scope brace today which will be adjusted to 0 to 100 degrees locked at all times. She will follow-up in approximat galen 6-8 weeks for routine evaluation of radiograph s and to check on her progress going forward. [id number] ANGELIQUE SHOEMAKER PA-C [facility] [address] [phone] 02/09/2024 09:17:12 02/09/2024 10:27:32 Periprosthetic fracture [id number] M97.12XA Ms. Burkett is 6 months status post left distal PPFX ORIF. Surgery date 08/10/23Over all, she reports minimal to no pain. We are going to continue progressiv e WBAT, in Tscope 0-100 at facility in [place]. Radiograph s today are within normal limits. She may continue active range of motion exercises. Patient will continue in a T scope brace today for stability. Voltaren gel 4x daily prn discomfort Continue to work with therapy for progressiv e strengthen ing F/U in 6 months [id number] ANGELIQUE SHOEMAKER PA-C [facility] [address] [id number] 08/11/2024 09:58:29 08/11/2024 10:33:14 History of left total knee replacement [id number] Z96.652 Periprosth etic fracture [id number] M97.12XA Ms. Burkett is 1 year status post left distal PPFX ORIF. Surgery date 08/10/23 Overall, she reports minimal to no pain. She is still living at [place], doing very well. Continue to ambulate with walker for stability. Radiograph s today are within normal limits. She may continue active range of motion exercises. Continue to work with therapy for progressiv e strengthen ing F/U in 1 year Health Concerns Section Related Observation LastModified by Organization Detai ls LastModified Time None Recorded Concern Status LastModified by Organization Details LastModified Time None Recorded Advance Directives Directive None Recorded Payers Insurance Date Sequence Insurance Name Policy Number Policy Choi Covered Member ID Hcoi Member ID Guarantor Name 01/18/2025 1 [place] Carla D Burkett [id number] Carla D Burkett 12/15/2023 1 *SELF PAY* Li sa D Burkett 01/17/2025 1 [facility] (MEDICARE REPLACEMENT/AD VANTAGE - HMO) Carla D Burkett [id number] Carla D Burkett 01/18/2025 2 [place] [facility] - FFS/TRADITIONA L Carla D Burkett [id number] Carla D Burkett 01/17/2025 1 [facility] (MEDICARE REPLACEMENT/AD VANTAGE - HMO) [facility] Carla Burkett [id number] Carla D Burkett 01/17/2025 [facility] Carla D Burkett [id number] Carla D Burkett 01/17/2025 1 [facility] [employer]US (MEDICARE REPLACEMENT HMO) [id number] Carla D Burkett [id number] Carla Burkett Notes Date Note Type Note Provider Name and Address Organization Details Recorded Time 09/15/2023 text/html [id number] i s 5 weeks s/p L distal PPFX ORIF. Surgery date 08/10/23Pain is improvingCurrently taking no doses per day of narcotic. tylenol PRN.Ambulating with wheelchairPT: [facility]. Denies fevers, chills, or wound drainage.They do not request a refill of pain medicine. 09/01/23 Patient is 3 weeks s/p L distal PPFX ORIF. Surgery date 08/10/23Pain is improvingCurrently taking 3-4 doses per day of narcotic.Ambulating with wheelchairPT: outpatient Denies fevers, chills, or wound drainage.They do not request a refill of pain medicine. TOM HIRSCH PA-C [address] [place] [address], [phone], [facility] 09/15/2023 12:05:17 10/27/2023 text/html 10/27/23 Patient is 10 weeks s/p ORIF L distal PPFX 08/10/23Pain is improving with occasional itching to incision, she does have scab and redness on incisionCurrently taking <3 doses per day of narcotic.Ambulating with wheelchair and continues to wear hinged brace.PT: outpatient Denies fevers, chills, or wound drainage.They do not request a refill of pain medicine. [id number] is 5 weeks s/p L distal PPFX ORIF. Surgery date 08/10/23Pain is improvingCurrently taking no doses per day of narcotic. tylenol PRN.Ambulating with wheelchairPT: [facility]. Denies fevers, chills, or wound drainage.They do not request a refill of pain medicine. 09/01/23 Patient is 3 weeks s/p L distal PPFX ORIF. Surgery date 08/10/23Pain is improvingCurrently taking 3-4 doses per day of narcotic.Ambulating with wheelchairPT: outpatient Denies fevers, chills, or wound drainage.They do not request a refill of pain medicine. ANGELIQUE SHOEMAKER PA-C [address] [place], [phone], [facility] 10/27/2023 11:19:33 12/15/2023 text/html 12/15/23 Mrs. Burkett is present today for a 4 month evaluation of ORIF L Distal PPfx. Surgery was preformed on August 10, 2023. She remains weightbearing as tolerated, this past week she made it to 120 feet. She remain wearing t scope brace 0-90 degrees locked. She is in rehab at [facility] in [place]. Pain occurs with weightbearing averaging 11/10. 10/27/23 Patient is 10 weeks s/p ORIF L distal PPFX 08/10/23Pain is improving with occasional itching to incision, she does have scab and redness on incisionCurrently taking <3 doses per day of narcotic.Ambulating with wheelchair and continues to wear hinged brace.PT: outpatient Denies fevers, chills, or wound drainage.They do not request a refill of pain medicine. 8-25-68Sypbrrg is 5 weeks s/p L distal PPFX ORIF. Surgery date 08/10/23Pain is improvingCurrently taking no doses per day of narcotic. tylenol PRN.Ambulating with wheelchairPT: [facility]. Denies fevers, chills, or wound drainage.They do not request a refill of pain medicine. 09/01/23 Patient is 3 weeks s/p L distal PPFX ORIF. Surgery date 08/10/23Pain is improvingCurrently taking 3-4 doses per day of narcotic.Ambulating with wheelchairPT: outpatient Denies fevers, chills, or wound drainage.They do not request a refill of pain medicine. ANGELIQUE SHOEMAKER PA-C [address] [place], [phone], [facility] 12/15/2023 09:52:54 02/09/2024 text/html 02/09/24Patient is 6 months s/p L ORIF of distal femur fx. DOS 08/10/23Pain is improving. 4/10 pain on posterior aspect when extending knee.Currently taking no doses per day of narcotic.Ambulating with wheelchair. Moves around with walker at home.PT: outpatient Denies fevers, chills, or wound drainage.They do request a refill of pain medicine. Discuss with pt. Operative cultures 10/27/23 Patient is 10 weeks s/p ORIF L distal PPFX 08/10/23Pain is improving with occasional itching to incision, she does have scab and redness on incisionCurrently taking <3 doses per day of narcotic.Ambulating with wheelchair and continues to wear hinged brace.PT: outpatient Denies fevers, chills, or wound drainage.They do not request a refill of pain medicine. 1-74-17Kgvigae is 5 weeks s/p L distal PPFX ORIF. Surgery date 08/10/23Pain is improvingCurrently taking no doses per day of narcotic. tylenol PRN.Ambulating with wheelchairPT: [facility]. Denies fevers, chills, or wound drainage.They do not request a refill of pain medicine. 09/01/23 Patient is 3 weeks s/p L distal PPFX ORIF. Surgery date 08/10/23Pain is improvingCurrently taking 3-4 doses per day of narcotic.Ambulating with wheelchairPT: outpatient Denies fevers, chills, or wound drainage.They do not request a refill of pain medicine. ANGELIQUE SHOEMAKER PA-C [address] [place], [phone], [facility] 02/09/2024 10:31:19 08/11/2024 text/html 08/11/24Patient is here today for 1 year post op visit from L ORIF L distal femur PP (TKA) FX on 08/10/23. Patient reports they are doing well. Any pain? minor pain 2/10Ambulating with hinged knee brace, a piece has broken off the brace and wants to discuss another.Any issues or concerns yes She does voice minor pain, weightbearing as she can tolerate.If yes,Denies fevers, chills, or wound drainage. ANGELIQUE SHOEMAKER PA-C [address] [place], [phone], [facility] 08/11/2024 12:55:05 OBGyn Episode No OBEpisode recorded.
--- OUTSIDE RECORDS SUMMARY | 2025-01-25 07:46 | XMS_ITS | Encounter Summary ---
Author Organization [facility] In iatives Address [address] [place] [address] Care Team Providers Care Lead Machinist Name Role Phone Edgar Nguyen MD Primary Care Provider + [phone] Wally Yoo MD Primary Care Provider [phone] Reason for Referral * Interventional Radiology (Routine) - Closed Specialty Diagnoses / Procedures Referred By Contac t Referred To Contact Radiology Diagnoses Acute renal failure, unspecified acute renal failure type (HCC) Procedures IR CENTRAL VENOUS Dunia Pena NP Referral ID Status Reason Start Date Expiration Date Visits Re quested Visits Authorized [id number] Closed 10/08/2022 04/06/2023 1 1 Encounter Details Date Type Department Care Team (Late st Contact Info) Description 10/08/2022 Outside Orders [facility] Central Scheduling [address] [place] [address] Dunia Pena NP Acute renal failure, unspecified acute renal failure type (HCC) (Primary Dx) Social History Tobacco Use Types Packs/Day Years Used Date Smoking Tobacco: Never Assessed Comments Unknown Sex and Gender Information Value Date Recorded Sex Assigned at Not on file Legal Sex Female 5:37 PM CDT Gender Identity Not on file Sexual Orientation Not on file COVID-19 Exposure Response Date Recorded In the last 10 days, have yo u been in contact with someone who was confirmed or suspected to have Coronavirus/COVID-19? No / Unsure 10/10/2022 9:58 AM EST documented as of this encounter Plan of Treatment Not on file documented as of this encounter Results * IR CENTRAL VENOUS (10/10/2022 12:58 PM EST) Anatomical Region Laterality Modality Interventional R adiology 10/10/2022 4:15 PM EST Addenda Addendum by Pro Guillory MD on 08/12/2023 9:25 AM EST Addendum: Radiation exposure in Reference air kerma: 13 mGy. Impressions 10/10/2022 4:30 PM EST Successful placement of a R IJ 24 cm tunneled catheter with ultrasound and fluoroscopic guidance. The patient tolerated the procedure well and left the department in good condition. There were no immediate complications. Images reviewed, interpreted, and dictated by Pro Guillory MD Narrative 10/10/2022 4:30 PM EST Name: CARLA BURKETT : 1970 TUNNELED VENOUS CATHETER PLACEMENT HISTORY: Chronic renal failure. PROCEDURE: All elements of maximum sterile barrier technique were utilized including cap, mask, sterile gown, sterile gloves, a large sterile sheet, hand hygiene, and 2% chlorhexidine or acceptable alternative for cutaneous antisepsis. The procedure, risk and benefits were explained to the patient. Written informed consent was obtained. A time-out was performed. The neck was prepped and draped in the usual sterile manner. Appropriate antibiotic coverage was administered. The vein was visualized with ultrasound. The patency of this vein was confirmed and documented with imaging placed in the patient's record. The skin was anesthetized with 1% Lidocaine. Access was gained to the internal jugular vein with a 21-gauge micropuncture set using direct ultrasound guidance. A 0.035 guide wire was then placed into the inferior vena cava under fluoroscopic guidance. A subcutaneous tunnel was created on the anterior chest wall toward the venotomy site. The catheter was tunneled through the subcutaneous tissues. The venotomy site was serially dilated. The catheter was inserted through a peel-away sheath and positioned at the atrium under fluoroscopy. The peel-away sheath was then removed. The catheter demonstrated good function and flow. The venotomy site was closed with chromic suture. The catheter was sutured into place with monofilament suture. The catheter was then heparinized per the manufacturers instruction. 0.2 minutes of fluoroscopy was provided for guidance of this procedure. Conscious sedation was provided using 2 mg of Versed and 100 mcg of fentanyl. Total sedation time was approximately 15 minutes. Procedure Note Pro Guillory MD - 10/10/2022 Name: CARLA BURKETT : 1970 TUNNELED VENOUS CATHETER PLACEMENT HISTORY: Chronic renal failure. PROCEDURE: All elements of maximum sterile barrier technique were utilized including cap, mask, sterile gown, sterile gloves, a large sterile sheet, hand hygiene, and 2% chlorhexidine or acceptable alternative for cutaneous antisepsis. The procedure, risk and benefits were explained to the patient. Written informed consent was obtained. A time-out was performed. The neck was prepped and draped in the usual sterile manner. Appropriate antibiotic coverage was administered. The vein was visualized with ultrasound. The patency of this vein was confirmed and documented with imaging placed in the patient's record. The skin was anesthetized with 1% Lidocaine. Access was gained to the internal jugular vein with a 21-gauge micropuncture set using direct ultrasound guidance. A 0.035 guide wire was then placed into the inferior vena cava under fluoroscopic guidance. A subcutaneous tunnel was created on the anterior chest wall toward the venotomy site. The catheter was tunneled through the subcutaneous tissues. The venotomy site was serially dilated. The catheter was inserted through a peel-away sheath and positioned at the atrium under fluoroscopy. The peel-away sheath was then removed. The catheter demonstrated good function and flow. The venotomy site was closed with chromic suture. The catheter was sutured into place with monofilament suture. The catheter was then heparinized per the manufacturers instruction. 0.2 minutes of fluoroscopy was provided for guidance of this procedure. Conscious sedation was provided using 2 mg of Versed and 100 mcg of fentanyl. Total sedation time was approximately 15 minutes. IMPRESSION: Successful placement of a R IJ 24 cm tunneled catheter with ultrasound and fluoroscopic guidance. The patient tolerated the procedure well and left the department in good condition. There were no immediate complications. Images reviewed, interpreted, and dictated by Pro Guillory MD Dunia Pena NP [facility] IR ORDERABLES Edited Result - Final documented in this encounter Visit Diagnoses Diagnosis Acute renal failure, unspecified acute renal failure type (HCC)- Primary Acute renal failure, unspecified acute renal failure type (HCC) documented in this encounter Additional Health Concerns Infection Onset Date Last Indicated Resolved Time 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 Care Teams Lead Machinist Relationship Specialty Start Date End Date Edgar Nguyen MD [address] [place] [id number] PCP - General Family Medicine 10/10/22 03/08/23 Wally Yoo MD [address] [place] [address] PCP - General Family Medicine 01/11/25 documented as of this encounter
[2025-01-25 08:46] LABS: Hemoglobin A1C 7.9 % (4.0-6.0)
== END 2025-01-25 23:59 | disposition home or self-care (01) ==
PROVIDERS: PCP Family Medicine; Visit Provider Nurse Practitioner Family
DX: E11.9 Type 2 diabetes mellitus without complications (principal)
CPT/HCPCS: 36415; 83036

== ENCOUNTER 2025-03-01 06:45 | Outpatient (CLI) | payer MEDICARE, MEDICAID, SELFPAY ==
--- OUTSIDE RECORDS SUMMARY | 2025-01-10 10:59 | XMS_ITS | Encounter Summary ---
Author Organization [employer] ([place], [place], [place], [place]) Address [address] [place] [address] Care Team Providers Care Documentation Specialist Name Role Phone Unavailable Primary Care Provider Unavailabl e Reason for Visit * Auth/Cert (Routine) Specialty Diagnoses / Procedures Referred By Contac t Referred To Contact Diagnoses Other specified complication of vascular prosthetic devices, implants and grafts, initial encounter (HCC) Other specified complication of vascular prosthetic devices Procedures [place] ARTERIOVENOUS ANASTOMOSIS OPEN DIRECT CREATION, AV FISTULA Baljinder Sloan MD [facility] [place] [address] Phone: tel: fax: Referral ID Status Reason Start Date Expiration Date Visits Re quested Visits Authorized [id number] 01/03/2025 1 1 Encounter Details Date Type Department Care Team (Late st Contact Info) Description 01/10/2025 10:59 AM EDT - 01/10/2025 12:29 PM EDT Surgery [facility] Operating Room [address] [place] [phone] Baljinder Sloan MD [address] [place] [address] LEFT IJ tunneled catheter exchanged RIGHT brachiocephalic [...] of Transportation (Non-Medical) Not on file 12/18/2022 Family and Community Support Answer Emeterio e Recorded Help with Day to Day Activities Not on file 08/11/2023 Feeling Lonely or Isolated Not on file 08/11 Educational Attainment Answer Date Earl rded Speak language other than Sri Lankan at home Not on file 08/11/2023 Want help with school or training Not on file 08/11/2023 Substance Use Answer Date Recorded Used prescription meds for non-medical reasons N ot on file 08/11/2023 Used illegal drugs past 12 months Not on file 08/11/2023 Comments Unknown Sex and Gender Information Value Date Recorded Sex Assigned at Female 02/09/2025 2:55 AM CDT Legal Sex Female 5:37 PM CDT Gender Identity Female 02/09/2025 2:55 AM CDT Sexual Orientation Not on file documented as of this encounter Discharge Instructions * Appointments* Cali Langford RN - 01/10/2025 2:11 PM EDT You have a scheduled follow up appointment at Dr. Sloan' office on 02/15/2025 at 8:30 AM. This will be at the [address] [place] [address] location. You may gradually resume your regular [...] Everywhere. * AV Fistula Placement Care After (Sri Lankan) * Monitored Anesthesia Care Care After ([place]ri Lankan) * Peripheral Nerve Block ([place]ri [place]ankan) documented in this encounter Medications at Time of Discharge amLODIPine (NORVASC) 10 MG tablet Take 1 [...] by mouth 2 (two) times daily. 12/06/2022 famotidine (PEPCID) 20 MG tablet Take 1 tablet (20 mg total) by mouth 2 (two) times daily. fexofenadine (DANIELLE) 180 MG tablet Take 1 tablet (180 mg total) by mouth daily. prasugreL (EFFIENT) 10 mg tab tablet Take 1 tablet (10 mg total) by mouth daily. 02/10/2024 acetaminophen (TYLENOL) 500 MG tablet Take 1 tablet (500 mg total) by mouth every 6 (six) hours as needed for pain. baclofen (LIORESAL) 5 mg tab Take 1 tablet (5 mg total) by mouth every night as needed for muscle spasms. diphenhydrAMINE (BENADRYL) 25 mg tablet Take 1 tablet (25 mg total) by mouth 3 (three) times daily as needed for itching. epoetin gia (Procrit) 20,000 unit/2 mL soln injection Inject 2 mLs (20,000 Units total) under the skin once a week. isosorbide mononitrate (IMDUR) 30 MG 24 hr [...] powder Take 17 g by mouth daily. pseudoephedrine (Sudogest) 60 MG tablet Take 1 tablet (60 mg total) by mouth every 6 (six) hours as needed for congestion. sevelamer (RENAGEL) 800 MG tablet Take 1 tablet (800 mg total) by mouth 3 (three) times daily with meals. venlafaxine (Effexor XR) 37.5 MG 24 hr capsule Take 1 capsule (37.5 mg total) by mouth daily. gabapentin (NEURONTIN) 300 MG capsule Take 1 capsule (300 mg total) by mouth nightly. 02/04/2024 02/14/20 25 insulin glargine-yfgn (SEMGLEE) 100 unit/mL soln solution Inject 22 Units subcutaneously 2 (two) times daily. 07/26/2024 01/14/20 25 insulin lispro (HUMALOG, ADMELOG) 100 unit/mL injection Inject subcutaneously 3 (three) times daily before meals. 01/14/20 sucralfate (CARAFATE) 1 gram tablet Take 1 tablet (1 g total) by mouth 2 (two) times daily. 01/14/20 documented as of this encounter Progress Notes [...] history of C. difficile colitis, Cardiac arrest (HCC) (07/19/2024), CHF (congestive heart failure) ([facility]) (01/19/2024), Chronic kidney disease, Coronary artery disease-heart stents x 2 2019, CTS (carpal tunnel syndrome)left, Depression, Diabetes mellitus (HCC), ESRD (end stagerenal disease) on dialysis (HCC)//thu, Hyperlipidemia, unspecified (10/06/2022), Hypertension, Kidney failure, Obstructive sleep apnea, Osteomyelitis (HCC) resolved, Peripheral vascular disease due to secondary diabetes (HCC), Post- menopausal, and Wound of right foot [...] prosthetic devices, implants and grafts, initial encounter ([facility]) [T82.898A] Post-Op Diagnosis Codes: * Other specified complication of vascular prosthetic devices, implants and grafts, initial encounter ([facility]) [T82.898A] Indications: Carla Burkett is a 54 [...] 6-0 Prolene in running, continuous fashion. After anabaptist of flow, there is an excellent thrill [...] GLUCOSE POC Routine 01/10/2025 4:39 PM EDT [place] ARTERIOVENOUS ANASTOMOSIS OPEN DIRECT 01/10/2025 1:50 PM EDT Other specified complication of vascular prosthetic devices, implants and grafts, initial encounter ([facility]) Case Notes IN 1000 , 1 HR (A) FS_MODEL_IP POCT , URINE Routine 01/10/2025 1:16 PM EDT CHEM8+ POC Routine 01/10/2025 1:13 PM EDT documented in this encounter Results * (ABNORMAL) Glucose, Nova Meter (01/10/2025 4:39 PM EDT) [facility] POC-GLUCOSE 112(H) 70 - 110 mg/dL 01/10/2025 4:40 PM EDT [facility] Comment: In the event of poor peripheral blood flow, venous or arterial blood should be used due to the potential of erroneous results. Protocols Followed Chargemaster Analyst [id number] 01/10/2025 4:40 PM EDT [facility] Blood WHOLE BLOOD / Unknown 01/10/2025 4:39 PM EDT 01/10/2025 4:40 PM EDT Narrative [facility] - 01/10/2025 4:40 PM EDT Chargemaster Analyst ID is - [id number] us Baljinder Sloan MD POINT OF CARE TEST ORDERABLES Fi nal Result [facility] [address] [phone] * POCT , urine (01/10/2025 1:16 PM EDT) POC, URINE HCG Negative Negative INTERNAL QC (VALID/INVALID ) Valid Kit Lot Number [id number] Expiration Date 2026-05-31 01/10/2025 1:16 PM EDT us Pro Barr MD FS_MODEL_IP_POINT OF CARE TEST ENTER/EDIT ORDERABLES Edited Result - Final * (ABNORMAL) Chem8+ POC (01/10/2025 1:13 PM EDT) POC Sodium 142 138 - 146 mmol/L 01/10/2025 1:23 PM EDT [facility] POC Potassium 4.8 3.5 - 4.9 mmol/L 01/10/2025 1:23 PM EDT [facility] POC Chloride 97(L) 98 - 109 mmol/L 01/10/2025 1:23 PM EDT [facility] POC Glucose 138(H) 70 - 105 mg/dL 01/10/2025 1:23 PM EDT [facility] POC BUN 47(H) 8 - 26 mg/dL 01/10/2025 1:23 PM EDT [facility] POC Anion Gap 14 10 - 20 mmol/L 01/10/2025 1:23 PM EDT [facility] POC IONIZED CALCIUM BENJI 1.18 1.12 - 1.32 mmol/L 01/10/2025 1:23 PM EDT [facility] POC CO2 TOTAL BENJI 36(H) 24 - 29 mmol/L 01/10/2025 1:23 PM EDT [facility] POC-Creatinine 6.3(H) 0.6 - 1.3 mg/dL 01/10/2025 1:23 PM EDT [facility] POC-EGFR 7 mL/min/1.7 3M2 01/10/2025 1:23 PM EDT [facility] Comment:Proceed with contras t if eGFR > 45 ml/min/1.73 when performed on the NovaSTAT strip Creatinine meter. POC HEMATOCRIT BENJI 32(L) 38 - 51 %PCV 01/10/2025 1:23 PM EDT [facility] POC HEMOGLOBIN BENJI 10.9(L) 12.0 - 17.0 g/dL 01/10/2025 1:23 PM EDT [facility] Blood 01/10/2025 1:13 PM EDT 01/10/2025 1:23 PM EDT Narrative [facility] - 01/10/2025 1:23 PM EDT Chargemaster Analyst ID is - [id number] Baljinder Sloan MD POINT OF CARE TEST ORDERABLES Fi nal Result [facility] [address] [place] [address] documented in this encounter Visit Diagnoses Diagnosis [...] Date Last Indicated Resolved Time MRSA (C) Comment:02/11/2025 07/23/2024 07/23/2024 documented as of this encounter
--- OUTSIDE RECORDS SUMMARY | 2025-01-10 12:29 | XMS_ITS | Encounter Summary ---
Author Organization [facility] ([place], [place], [place], [place]) Address [address] [place] [address] Care Team Providers Care Inspector Cold Working Name Role Phone Unavailable Primary Care Provider Unavailabl e Reason for Visit * Auth/Cert (Routine) Specialty Diagnoses / Procedures Referred By Contac t Referred To Contact Diagnoses Other specified complication of vascular prosthetic devices, implants and grafts, initial encounter (HCC) Other specified complication of vascular prosthetic devices Procedures PA ARTERIOVENOUS ANASTOMOSIS OPEN DIRECT CREATION, AV FISTULA Baljinder Sloan MD [address] [place] [address] Phone: tel: fax: Referral ID Status Reason Start Date Expiration Date Visits Re quested Visits Authorized [id number] 01/03/2025 1 1 Encounter Details Date Type Department Care Team (Latest Contact Info) Description 01/10/2025 12:29 PM EDT - 01/10/2025 5:38 PM EDT Hospital Encounter [facility] Operating Room [address] [place] [id number] Baljinder Sloan MD [facility] [place] [place] [address] Discharge Disposition: Home or Self Care Social [...] Date Earl rded Speak language other than Greenlandic at home Not on file 08/11/2023 Want [...] a scheduled follow up appointment at Dr. Menes' office on 02/15/2025 at 8:30 AM. This will be at the [address] [place] [address] location. You may gradually resume your regular [...] Everywhere. * AV Fistula Placement Care After (Greenlandic) * Monitored Anesthesia Care Care After (Greenlandic) * Peripheral Nerve Block (Greenlandic) documented in this encounter Medications at Time [...] 3 (three) times daily before meals. 01/14/20 25 sucralfate (CARAFATE) 1 gram tablet Take 1 [...] history of C. difficile colitis, Cardiac arrest ([facility]) (07/19/2024), CHF (congestive heart failure) ([facility]) (01/19/2024), Chronic kidney disease, Coronary artery disease-heart stents x 2 2019, CTS (carpal tunnel syndrome)left, Depression, Diabetes mellitus ([facility]), ESRD (end stagerenal disease) on dialysis ([facility])/thu, Hyperlipidemia, unspecified (10/06/2022), Hypertension, Kidney failure, Obstructive sleep apnea, Osteomyelitis ([facility]) resolved, Peripheral vascular disease due to secondary diabetes ([facility]), Post- menopausal, and Wound of right foot [...] with her assessment and plan for Carla Norris Kwadwo. documented in this encounter OR Notes * Op Note - Baljinder Sloan MD - 01/10/2025 2:01 PM EDT Date: 01/10/2025 Procedures: LEFT IJ tunneled catheter exchange (Merit DuraFlow 2 23cm working length) RIGHT brachiocephalic arteriovenous fistula creation Diagnosis: Pre-Op Diagnosis Codes: * Other specified complication of vascular prosthetic devices, implants and grafts, initial encounter ([facility]) [T82.898A] Post-Op Diagnosis Codes: * Other specified complication of vascular prosthetic devices, implants and grafts, initial encounter ([facility]) [T82.898A] Indications: Carla Burkett is [...] 6-0 Prolene in running, continuous fashion. After amish of flow, there is an excellent thrill [...] GLUCOSE POC Routine 01/10/2025 4:39 PM EDT PA ARTERIOVENOUS ANASTOMOSIS OPEN DIRECT 01/10/2025 1:50 PM EDT Other specified complication of vascular prosthetic devices, implants and grafts, initial encounter ([facility]) Case Notes IN 1000 , 1 HR (A) FS_MODEL_IP POCT , URINE Routine 01/10/2025 1:16 PM EDT CHEM8+ POC Routine 01/10/2025 1:13 PM EDT documented in this encounter Results * (ABNORMAL) Glucose, Nova Meter (01/10/2025 4:39 PM EDT) POC-GLUCOSE 112(H) 70 - 110 mg/dL 01/10/2025 4:40 PM EDT [facility] Comment: In the event of poor peripheral blood flow, venous or arterial blood should be used due to the potential of erroneous results. Protocols Followed [employer] Supervisor [phone] 01/10/2025 4:40 PM EDT [facility] Blood WHOLE BLOOD / Unknown 01/10/2025 4:39 PM EDT 01/10/2025 4:40 PM EDT Narrative [facility] - 01/10/2025 4:40 PM EDT [employer] Supervisor ID is - [id number] us Baljinder Sloan MD POINT OF CARE TEST ORDERABLES Fi nal Result Performing Organization Address City/State/[facility] Co de Phone Number [facility] [address] [place] [address] * POCT , urine (01/10/2025 1:16 PM EDT) Pathologist [facility] POC, URINE HCG Negative Negative INTERNAL QC (VALID/INVALID ) Valid Kit Lot Number [id number] Expiration Date 2026-05-31 01/10/2025 1:16 PM EDT Pro Barr MD FS_MODEL_IP_POINT OF CARE TEST ENTER/EDIT ORDERABLES Edited Result - Final * (ABNORMAL) Chem8+ POC (01/10/2025 1:13 PM EDT) Pathologist [facility] POC Sodium 142 138 - 146 mmol/L 01/10/2025 1:23 PM EDT [facility] POC Potassium 4.8 3.5 - 4.9 mmol/L 01/10/2025 1:23 PM EDT [facility] POC Chloride 97(L) 98 - 109 mmol/L 01/10/2025 1:23 PM EDT [facility] POC Glucose 138(H) 70 - 105 mg/dL 01/10/2025 1:23 PM EDT [facility] POC BUN 47(H) 8 - 26 mg/dL 01/10/2025 1:23 PM EDT [facility] POC Anion Gap 14 10 - 20 mmol/L 01/10/2025 1:23 PM EDT [facility] POC IONIZED CALCIUM BENJI 1.18 1.12 - 1.32 mmol/L 01/10/2025 1:23 PM EDT [facility] POC CO2 TOTAL BENJI 36(H) 24 - 29 mmol/L 01/10/2025 1:23 PM EDT [facility] POC-Creatinine 6.3(H) 0.6 - 1.3 mg/dL 01/10/2025 1:23 PM EDT [facility] POC-EGFR 7 mL/min/1.7 3M2 01/10/2025 1:23 PM EDT [facility] Comment:Proceed with contras t if eGFR > 45 ml/min/1.73 when performed on the NovaSTAT strip Creatinine meter. POC HEMATOCRIT BENJI 32(L) 38 - 51 %PCV 01/10/2025 1:23 PM EDT [facility] POC HEMOGLOBIN BENJI 10.9(L) 12.0 - 17.0 g/dL 01/10/2025 1:23 PM EDT [facility] Blood 01/10/2025 1:13 PM EDT 01/10/2025 1:23 PM EDT Narrative [facility] - 01/10/2025 1:23 PM EDT [employer] Supervisor ID is - [id number] us Baljinder Sloan MD POINT OF CARE TEST ORDERABLES Fi nal Result [facility] [address] [phone] documented in this encounter Visit Diagnoses Not [...]
--- OUTSIDE RECORDS SUMMARY | 2025-01-10 13:51 | XMS_ITS | Encounter Summary ---
Author Organization [employer] ([place], [place], [place], [place]) Address [address] [place] [address] Care Team Providers Care Aircraft Maintenance Technician Name Role Phone Unavailable Primary Care Provider Unavailabl e Reason for Visit * Auth/Cert (Routine) Specialty Diagnoses / Procedures Referred By Meg kumar Referred To Contact Diagnoses Other specified complication of vascular prosthetic devices, implants and grafts, initial encounter (HCC) Other specified complication of vascular prosthetic devices Procedures [place] ARTERIOVENOUS ANASTOMOSIS OPEN DIRECT CREATION, AV FISTULA Baljinder Sloan MD [address] [facility] [place] [address] Phone: tel: fax: Referral ID Status Reason Start Date Expiration Date Visits Re quested Visits Authorized [id number] 01/03/2025 1 1 Encounter Details Date Type Department Care Team (Late st Contact Info) Description 01/10/2025 1:51 PM EDT Anesthesia Event [facility] Operating Room [address] [place] [address] Pro Barr MD [address] [place] [address] Josef Noyola MD [address] [place] [address] Anesthesia Record Procedure Summary Procedure Name Responsible [...] Drains, and Airways Type Details Placement Removal Wound 01/10/25; 1542; Incision; Arm; Right 01/10/25 1542 by Kristina Peralta RN Hemodialysis Access 04/20/23; Baljinder fraire MD; Arteriovenous fistula; Left; Arm 04/20/23 0000 by Shailesh Thapa RN 02/08/25 2044 by Melvina Bazan RN Hemodialysis Access 05/24/24; 1649; Alejandro Brower MD; Internal jugular catheter, Tunneled; Left; Jugular; Sutured; Tolerated well; No longer present on patient during assessment 05/24/24 1649 by Shailesh Thapa, BENNETT 01/12/25 1128 by Brian Collins RN Wound 07/19/24; 0837; Incision; Arm; Left; 01/12/25; 1130 07/19/24 0837 by Mitzy Ellis RN 01/12/25 1130 by Brian Collins RN External Urinary Catheter 07/25/24; 0900; 02/08/25; 2120; no roberts upon admission 07/25/24 0900 by Ciarra Zaldivar RN 02/08/25 2120 by Mary Hutson RN Hemodialysis Cath Double Lumen 01/10/25; 1000; Subclavian vein catheter, Other (Comment) (HD Catheter); Left; Subclavian; Taped 01/10/25 1000 by Brian Collins RN 01/18/25 1618 by Automatic Discharge Provider Peripheral IV Placement Date: 01/10/25; Placement Time: 1317; Orientation: Anterior, Left; Location: Forearm; Site Prep: Chlorhexidine ; Insertion attempts: 1; Removal Date: 01/10/25; Removal Time: 1730 01/10/25 1318 by Denise Buck RN 01/10/25 1730 [...] of Transportation (Non-Medical) Not on file 12/18/2022 Utilities Answer Date Recorded In the past 12 months, has t he [employer], [employer], oil, or water company threatened to shut off services in your [...] Do you speak a language other than Polish at ho pr? No 01/12/2025 Do you want help with school or training? For example, starting or completing job training or getting a high school diploma, GED or equivalent. No 01/12/2025 Physical Activity Answer Date Recorded Number of minutes of exercise per week 0 01/12/2025 Self Management Answer Date Recorded Because of a physical, [...] you used [place] legal drugs? Never 01/12/2025 Mental Health Answer Date Recorded Calculation of above two rows 0 Comments Unknown Sex and Gender Information Value [...] Procedure Summary Date: 01/10/25 Room / Location: [facility] OR [address] [place] [address] OPERATING ROOM Anesthesia Start: 1351 Anesthesia Stop: [...] status: nasal cannula Hydration status: stable Color: [place] Activity: Limited RUE nerve block Inotropes/Vasopressors: N/A [...] supine Prep: ChloraPrep Patient monitoring: heart rate, manager cardiac cath and continuous pulse ox Block type: supraclavicular [...] EXTREMITY BRACHIOCEPHALIC AV FISTULA CREATION) (Right) Location: [facility] OR 20 / [facility] OPERATING ROOM Surgeons: Baljinder Sloan MD Relevant Problems ANESTHESIA (+) SHAYLA (obstructive sleep apnea) CARDIOVASCULAR (+) CAD (coronary artery disease) (+) CHF (congestive heart failure) ([facility]) (+) Cardiac arrest (HCC) (+) HTN (hypertension) (+) Type 2 diabetes mellitus with diabetic peripheral angiopathy without gangrene (HCC) ENDOCRINE (+) Type 2 diabetes mellitus with diabetic peripheral angiopathy without gangrene (HCC) GASTROINTESTINAL (+) GERD (gastroesophageal reflux disease) /RENAL (+) CKD (chronic kidney disease) stage 3, GFR 30-59 ml/min ([facility]) (+) Chronic kidney disease, unspecified (+) Dependence on renal dialysis (HCC) (+) Hemodialysis patient ([facility]) (+) Hypertensive chronic kidney disease with stage 5 chronic kidney disease or end stage renal disease (HCC) NEURO/PSYCH (+) Anxiety (+) Depression, unspecified RESPIRATORY [...] history of C. difficile colitis, Cardiac arrest ([facility]) (07/19/2024), CHF (congestive heart failure) ([facility]) (01/19/2024), Chronic kidney disease, Coronary artery disease-heart stents x 2 2019, CTS (carpal tunnel syndrome)left, Depression, Diabetes mellitus ([facility]), ESRD (end stagerenal disease) on dialysis ([facility])//thu, Hyperlipidemia, unspecified (10/06/2022), Hypertension, Kidney failure, Obstructive sleep apnea, Osteomyelitis ([facility]) resolved, Peripheral vascular disease due to secondary diabetes ([facility]), Post- menopausal, and Wound of right foot [...] supine Prep: ChloraPrep Patient monitoring: heart rate, manager cardiac cath and continuous pulse ox Block type: supraclavicular [...] % (5 mg/mL) injection perineural, Starting on Thu01/10/25 at 1330, Anesthesia Intra-op Given 01/10/2025 1:30 PM EDT 15 mLs sodium chloride 0.9 % infusion Continuous PRN, intravenous, Starting on 01/10/25 at 1351, Anesthesia Intra-op New Bag 01/10/2025 1:51 PM EDT documented in this encounter Additional Health Concerns Infection Onset Date Last Indicated Resolved Time MRSA (C) Comment:02/11/2025 07/23/2024 07/23/2024 documented as of this encounter
--- OUTSIDE RECORDS SUMMARY | 2025-01-11 11:35 | XMS_ITS | Encounter Summary ---
Author Organization [facility] ([place], [place], [place], [place]) Address [address] [place] [address] Care Team Providers Care Hose Tester Name Role Phone Wally Yoo MD Primary Care Provider [phone] Reason for Visit * Reason Comments Generalized Weakness, Not Associated Wit h Extremities * Auth/Cert (Routine) Specialty Diagnoses / Procedures Referred By Meg kumar Referred To Contact Diagnoses Primary hypertension Persistent vomiting in adult patient Generalized weakness Chronic renal failure, unspecified CKD stage Nausea and vomiting, unspecified vomiting type [address] [place] [address] Phone: tel: fax: [address] [place] [address] Phone: tel: fax: Referral ID Status Reason Start Date Expiration Date Visits Re quested Visits Authorized [id number] 1 1 Encounter Details Date Type Department Care Team (Late st Contact Info) Description 01/11/2025 11:35 AM EDT - 01/14/2025 4:17 PM EDT Hospital Encounter [address] [place] [address] Benedict Fleming MD [address] [place], [place] [id number] Olegario Varghese PA-C [address] [facility] [address] [place] [address] Mckenzie Yang DO [address] [facility] [address] [place] [address] [id number] Gabino Esteban MD [address] [address] Karla Mosley MD [address] [id number] Generalized weakness (Primary Dx); Primary hypertension; Nausea and vomiting, unspecified vomiting type; Chronic renal failure, unspecified CKD stage Discharge Disposition: Home or Self Care Social [...] the past 12 months, has t he [employer], gas, oil, or water Clutter threatened to shut off services in your [...] Do you speak a language other than Ecuadorean at [facility]? No 01/12/2025 Do you want help with [...] Sign Reading Time Taken Comments Blood Pressure 126/70 01/14/2025 11:50 AM EDT Pulse 85 01/14/2025 11:50 AM EDT Temperature 37 C (98.6 F) 01/14/2025 11:50 AM EDT Respiratory Rate 16 01/14/2025 11:50 AM EDT Oxygen Saturation 97% 01/14/2025 8:42 AM EDT Inhaled Oxygen Concentration - - Weight 121.6 kg (268 lb) 01/11/2025 11:29 AM EDT Height 167.6 cm (5' 6 ) 01/11/2025 11:29 AM EDT Body Mass Index 43.26 01/11/2025 11:29 AM EDT documented in this encounter Discharge Summaries * Mckenzie Yang, DO - 01/14/2025 10:38 AM EDT [facility] Discharge Summary Patient Name: Carla Burkett : 1970 Date of Admission: 01/11/2025 Date of Discharge: 01/14/2025 Primary Care Physician: Wally Yoo MD Hospital 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 female with history of heart failure, diabetes, PVD presents to the hospital for evaluation of persistent nausea and. Workup on arrival demonstrating no acute findings on CT abdomen pelvis without IV contrast. She was started on IV vancomycin and Rocephin. She was admitted to medicine for further evaluation. She was seen and evaluated by nephrology and received dialysis per her normal routine schedule. Her hospital course was fairly uncomplicated other than some persistent symptoms of nausea and vomiting without any obvious etiology. Concern for possible underlying gastroparesis given her longstanding diabetes. She will continue taking Reglan and was counseled on multiple small frequent meals on discharge. If she were to continue to have symptoms she would benefitfrom endoscopy and gastric motility study emptying study as well. Plan discussed with patient and nursing on the day of discharge PCP follow up list: Hospital follow up visit: Outpatient GI follow-up if symptoms persist for gastric motility study/emptying study Day of Discharge Vital Signs: Temp: [97.7 ??F (36.5 ??C)-98.6 ??F (37 ??C)] 98.2 ??F (36.8 ??C) Pulse: [88-103] 88 Resp: [16-20] 16 BP: (103-159)/(53-63) 115/53 SpO2 for the past 72 hrs (Last 3 readings): SpO2 01/14/25 0550 96 % 01/13/25 2350 96 % 01/13/25 2201 99 % Body mass index is 43.26 kg/m??. Focused Physical Exam: Patient seen and evaluated on day of discharge General: Chronically ill-appearing neurologic: Awake and alert, moves all extremities spontaneously Eye: EOMI, normal conjunctiva HENT: Normocephalic, atraumatic Lungs: No increased WOB, symmetric respirations Heart: Normal rate, regular rhythm, no murmur Abdomen: Soft, non-tender, non-distended, normal bowel sounds Skin: Skin is warm, dry, no rashes or lesions Psychiatric: Appropriate mood and affect MSK: Left BKA, right toe amputation Discharge Details Allergies: Allergies Allergen Reactions Sulfa (Sulfonamide Antibiotics) Tylox [Oxycodone-Acetaminophen] Nausea Only Pt states she can tolerate hydrocodone (verified 12/19/22) Medications on Discharge: Your medication list CONTINUE taking these medications Instructions Comments Quantity Refills acetaminophen 500 MG tablet Commonly known as: TYLENOL Take 1 tablet (500 mg total) by mouth every 6 (six) hours as needed for pain. 0 amLODIPine 10 MG tablet Commonly known as: NORVASC Take 1 tablet (10 mg total) by mouth daily. 0 aspirin 81 MG EC tablet Take 1 tablet (81 mg total) by mouth daily. 0 atorvastatin 40 MG tablet Commonly known as: LIPITOR Take 1 tablet (40 mg total) by mouth nightly. 0 baclofen 5 mg Tab Commonly known as: LIORESAL Take 1 tablet (5 mg total) by mouth every night as needed for muscle spasms. 0 calcitonin (salmon) 200 unit/actuation nasal spray Commonly known as: MIACALCIN Adminster 1 spray into one nostril daily. 0 calcium carbonate 600 mg calcium (1,500 mg) Commonly known as: OS-JERRELL Take 1 tablet (1,500 mg total) by mouth daily. 0 carvediloL 12.5 MG tablet Commonly known as: COREG Take 1 tablet (12.5 mg total) by mouth 2 (two) times daily. 0 diphenhydrAMINE 25 mg tablet Commonly known as: BENADRYL Take 1 tablet (25 mg total) by mouth 3 (three) times daily as needed for itching. 0 Effexor XR 37.5 MG 24 hr capsule Generic drug: venlafaxine XR Take 1 capsule (37.5 mg total) by mouth daily. 0 famotidine 20 MG tablet Commonly known as: PEPCID Take 1 tablet (20 mg total) by mouth 2 (two) times daily. 0 fexofenadine 180 MG tablet Commonly known as: DANIELLE Take 1 tablet (180 mg total) by mouth daily. 0 gabapentin 300 MG capsule Commonly known as: NEURONTIN Take 1 capsule (300 mg total) by mouth nightly. 0 insulin aspart U-100 100 unit/mL (3 mL) Inpn Commonly known as: NovoLOG Inject under the skin 3 (three) times daily before meals Sliding scale. 0 isosorbide mononitrate 30 MG 24 hr tablet Commonly known as: IMDUR Take 1 tablet (30 mg total) by mouth daily. 0 metoclopramide 10 MG tablet Commonly known as: REGLAN Take 1 tablet (10 mg total) by mouth 3 (three) times daily before meals. 0 ondansetron 4 MG tablet Commonly known as: ZOFRAN Take 1 tablet (4 mg total) by mouth every 8 (eight) hours as needed for nausea. 0 polyethylene glycol 17 gram/dose powder Commonly known as: MIRALAX Take 17 g by mouth daily. 0 prasugreL HCl 10 mg Tab tablet Commonly known as: EFFIENT Take 1 tablet (10 mg total) by mouth daily. 0 Procrit 20,000 unit/2 mL Soln injection Generic drug: epoetin gia Inject 2 mLs (20,000 Units total) under the skin once a week. 0 sevelamer 800 MG tablet Commonly known as: RENAGEL Take 1 tablet (800 mg total) by mouth 3 (three) times daily with meals. 0 Sudogest 60 MG tablet Generic drug: pseudoephedrine Take 1 tablet (60 mg total) by mouth every 6 (six) hours as needed for congestion. 0 Discharge condition: Improved and stable Discharge Disposition: Home Discharge Instructions: Please take your medications as prescribed. Please follow up with your PCP in 3-5 days. Please ensure you follow with all subspecialties as discussed on the day of discharge. Discharge Diet: Cardiac Discharge Activity: As tolerated Discharge Follow Up Appointments: Contact information for follow-up Primary care provider (PCP) Next Steps: Follow up Wally Yoo MD Specialty: Family Medicine Relationship: PCP - General [address] [place] [address] Next Steps: Follow up Time Spent on Discharge: I spent 35 minutes in [id number] time with the patient and nursing staffconcerning the discharge process. We discussed the admitting diagnoses and the hospital course. We discussed identified improvement and the patient's desire to be discharged. We reviewed inpatient studies and imaging. The patient voiced understanding on the importance of follow-up with his primary care provider and specialist(s). The patient plans to be compliant with the medication regimen prescribed and follow up appointments. Patient understands that they can return to the emergency department with any sudden changes or concerns. Electronically signed by: Mckenzie Yang DO 01/14/2025, 10:38 AM [facility] * Karla Mosley MD - 01/13/2025 10:10 AM EDT Discharge Summary [facility] 01/13/2025 10:10 AM Patient Name: Carla Burkett Date of : 1970 CODE STATUS: Full Code Admit Date: 01/11/2025 Discharge Date: 01/13/2025 Date of Service: 01/13/2025 Admitting Physician: Mckenzie Yang DO Attending Physician: Karla Mosley MD Primary Care Physician: Wally Yoo MD Admitting Diagnosis: Nausea and vomiting End-stage renal disease Discharge Diagnoses: Persistent nausea vomiting/headache ESRD MRSA positive nasal screening # Hypertension #CAD # Diabetes mellitus type 2 with neuropathy #CHF - #Anxiety depression GERD # Morbid obesity Hospital Course: 54 y.o. female with a history of renal disease on dialysis, CHF, diabetes, hypertension, peripheralvascular disease who presents to [facility] in [place], [place] for further evaluation and management of persistent nausea and vomiting with weakness. Patient went for dialysis today upon arrival she was having persistent nausea and vomiting, and was unable to have dialysis completed.She was sent dialysis facility to the ER for further evaluation. Upon arrival she was evaluated andshe notes that yesterday she had dialysis catheter removed and a right upper extremity fistula was placed as well is a left arm catheter. Patient sees Dr. Hein regarding end-stage renal disease and dialysis, per ER provider Dr. Cain was concerned for bacteremia. Patient denies any fever or chills,abdominal pain. She does note that she has had persistent nausea vomiting since yesterday, she states she has a history of this but since she has been put on Reglan it has been more controlled. She also reported a headache but no focal motor or sensory deficit at this time. Patient does have a leftbelow- knee amputation, as well is a right foot toe amputation. Emergency room course. Lab findings CBC shows a white count, 0.1 hemoglobin. CMP shows a creatinine level 6.98, glucose 125, alk phos 175. EKG shows sinus tachycardia with a rate of 102. Chest x-ray negative. CT brain due to headache shows no acute abnormality, negative. CT abdomen pelvis without IV contrast currently pending. Patient was given Phenergan and Zofran for nausea vomiting in the ER as well is Rocephin and vancomycin for concerns of bacteremia. Had elevated blood pressure readings and was given hydralazine and labetalol in the ER. Blood pressure readings have ranged from 170/79-233/107, following treatment they are currently ranging between 148/86-175/79. Persistent nausea vomiting/headache: Improved and resolved Tolerated full breakfast well Wide differential Symptomatic treatment With Carafate. SSRIs Tylenol Phenergan. - Head CT showed no hemorrhage ESRD -Appreciate Dr.Sara brewer. -Reviewed chest x-ray left tunneled dialysis catheter in place -Continue dialysis Thursday MRSA positive nasal screening -Decontamination -I suspect this is colonization chest x-ray negative. Off antibiotics . White count is normal. # Hypertension - Continue amlodipine - Hydralazine as needed - Labetalol as needed #CAD - Continue statin, Coreg, Imdur # Diabetes mellitus type 2 with neuropathy - Insulin sliding scale #CHF - Echo on 07/19/2024 showed EF 75% #Anxiety depression - Continue Effexor GERD - pepcid # Morbid obesity - Complicates all aspects of care. Consultants: [email or web address] IP CONSULT TO NEPHROLOGY Procedures: Hemodialysis Anti-infectives: None Discharge Examination: Vitals: 01/12/25 2005 01/12/25 2305 01/13/25 0400 01/13/25 0830 BP: (!) 140/76 129/66 132/72 137/72 BP Location: Left arm Patient Position: Lying Pulse: 101 100 99 Resp: Temp: 98.2 ??F (36.8 ??C) 98.1 ??F (36.7 ??C) TempSrc: Oral Oral SpO2: 94% 94% Weight: Height: Physical Exam Constitutional: Appearance: Normal appearance. He is normal weight. HENT: Head: Normocephalic and atraumatic. Nose: Nose normal. Mouth/Throat: Mouth: Mucous membranes are dry. Pharynx: Oropharynx is clear. Eyes: Extraocular Movements: Extraocular movements intact. Conjunctiva/sclera: Conjunctivae normal. Pupils: Pupils are equal, round, and reactive to light. Cardiovascular: Rate and Rhythm: Normal rate and regular rhythm. Pulses: Normal pulses. Heart sounds: Normal heart sounds. Pulmonary: Effort: Pulmonary effort is normal. Breath sounds: Normal breath sounds. Abdominal: General: Abdomen is flat. Bowel sounds are normal. Palpations: Abdomen is soft. Musculoskeletal: General: Normal range of motion. Cervical back: Normal range of motion and neck supple. Skin: General: Skin is warm and dry. Capillary Refill: Capillary refill takes less than 2 seconds. Neurological: General: No focal deficit present. Mental Status: He is alert and oriented to person, place, and time. Mental status is at baseline. Psychiatric: Mood and Affect: Mood normal. GASTROINTESTINAL: abdomen soft, non-tender, non-distended, no organomegaly; positive bowel sounds present; no CVA or rebound tenderness, no guarding present. EXTREMITIES: Pulses equal bilaterally, no edema present MUSCULOSKELETAL: Muscle strength 5/5 in all 4 extremities with full range of motion. No atrophy. NEUROLOGIC: Cranial Nerves II-XII intact, sensation intact bilaterally, deep tendon reflexes equal in all extremities, gait normal. Follows commands. PSYCH: Appropriate mood and affect DERM: No lesions or rashes appreciated. Discharge Plan: Condition: Medically appropriate for discharge Disposition: Diet: Consistent Carbohydrate Activity: Followup Appointments: No future appointments. Follow-up with primary care physician in 1 week(s) Follow-up with nephrology in 1 week(s) Discharge Medications: Current Discharge Medication List CONTINUE these medications which have NOT CHANGED Details acetaminophen (TYLENOL) 500 MG tablet Take 1 tablet (500 mg total) by mouth every 6 (six) hours as needed for pain. amLODIPine (NORVASC) 10 MG tablet Take 1 tablet (10 mg total) by mouth daily. aspirin 81 MG EC tablet Take 1 tablet (81 mg total) by mouth daily. atorvastatin (LIPITOR) 40 MG tablet Take 1 tablet (40 mg total) by mouth nightly. baclofen (LIORESAL) 5 mg tab Take 1 tablet (5 mg total) by mouth every night as needed for muscle spasms. calcitonin, salmon, (MIACALCIN) 200 unit/actuation nasal spray Adminster 1 spray into one nostril daily. calcium carbonate 600mg (Caltrate) 600 mg calcium (1,500 mg) tab Take 1 tablet (1,500 mg total) by mouth daily. carvediloL (COREG) 12.5 MG tablet Take 1 tablet (12.5 mg total) by mouth 2 (two) times daily. diphenhydrAMINE (BENADRYL) 25 mg tablet Take 1 [...] capsule (300 mg total) by mouth nightly. insulin aspart U-100 (NovoLOG) 100 unit/mL (3 mL) inpn Inject under the skin 3 (three) times daily before meals Sliding scale. isosorbide mononitrate (IMDUR) 30 MG 24 hr [...] tablet (10 mg total) by mouth daily. pseudoephedrine (Sudogest) 60 MG tablet Take 1 tablet (60 mg total) by mouth every 6 (six) hours asneeded for congestion. sevelamer (RENAGEL) 800 MG tablet Take 1 tablet (800 mg total) by mouth 3 (three) times daily with meals. venlafaxine (Effexor XR) 37.5 MG 24 hr capsule Take 1 capsule (37.5 mg total) by mouth daily. STOP taking these medications sucralfate (CARAFATE) 1 gram tablet Pertinent Data/Imaging: Lab Results Component Value Date WBC 7.3 01/13/2025 HGB 10.2 (L) 01/13/2025 HCT 30.7 (L) 01/13/2025 MCV 98 (H) 01/13/2025 Lab Results Component Value Date CREATININE 5.75 (H) 01/13/2025 BUN 28.7 (H) 01/13/2025 NA 139 01/13/2025 CO2 27 01/13/2025 Lab Results Component Value Date INR 1.16 12/18/2022 PROTIME 12.5 (H) 12/18/2022 Imaging: CT ABDOMEN/PELVIS WITHOUT IV CONTRAST Standard Protocol Result Date: 01/11/2025 CT SCAN OF THE ABDOMEN AND PELVIS WITHOUT CONTRAST 01/11/2025 3:49 PM HISTORY: Acute epigastric painCOMPARISON: April 2019 PROCEDURE: Axial images were obtained from the lung bases to the pubic symphysis by computed tomography. This study was performed with techniques to keep radiation doses aslow as reasonably achievable, (ALARA). Individualized dose reduction techniques using automated exposure control or adjustment of mA and/or kV according to the patient size were employed. FINDINGS: ABDOMEN: There is mild bibasilar atelectasis. There is a ventral hernia in the upper abdomen containing omental fat. The liver is fatty infiltrated and somewhat heterogeneous. The gallbladder is absent. The spleen is prominent. There is perinephric stranding bilaterally. There is no hydronephrosis ornephrolithiasis. The right adrenal is minimally calcified. The solid organs are otherwise unremarkable. There is no free fluid or adenopathy. There is a small umbilical hernia containing omental fat.PELVIS: The urinary bladder is distended. The uterus is deviated to the left. An IUD is noted within the uterus. The appendix is not identified. There is no free fluid or adenopathy. No acute process. CT brain without IV contrast Result Date: 01/11/2025 CT brain without IV contrast HISTORY: Weakness after dialysis FINDINGS: Noncontrast imaging. This study was performed with techniques to keep radiation doses as low as reasonably achievable (ALARA). Individualized dose reduction techniques using automated exposure control or adjustment of mA and/orkV according to the patient's size were employed. There is no significant atrophy. Ventricles are normal in size and shape and are midline. There is no mass effect or edema. There is no CVA or hemorrhage. There are no extra-axial fluid collections. Paranasal sinuses are clear. The calvarium is intact. Negative. XR chest AP portable Result Date: 01/11/2025 PORTABLE CHEST 01/11/2025 11:50 AM HISTORY: Septic. COMPARISON: July 2024. FINDINGS: The heart is normal in size . The mediastinum is unremarkable . There is right upper lobe atelectasis. There is no pneumothorax . The osseous structures are unremarkable . There is a left IJ line in good position. Atelectasis as above. Continued follow-up recommended. Images reviewed, interpreted, and dictated by Dr. Ivanna Sutton. Transcribed by Yessica Huerta PA-C. Diagnostic Studies of Note: Head CT Risk of readmission: High with history of end-stage renal disease and multiple medical problems Time Spent on Discharge: (38) + min which included; examination and discussion with patient. Reviewof medical record, review of medications, printing of scripts, ensuring adequate followup, along with documentation. This call circuit worker was electronically signed. It was dictated by use of voice recognition software and electronically transcribed. The call circuit worker may contain errors not detected in proofreading. Karla Mosley [email or web address] This has been electronically signed by: [facility] inpatient Specialists documented in this encounter Discharge Instructions * Discharge Instr - Activity* Yvonne Hawk RN - 01/13/2025 12:16 PM EDT As tolerated * Discharge Instr - Diet* Yvonne Hawk RN - 01/13/2025 12:16 PM EDT Renal * Attachments The following attachments cannot be sent through Care Everywhere. * End-Stage Kidney Disease (Ecuadorean) documented in this encounter Medications at Time [...] total) under the skin once a week. insulin aspart U-100 (NovoLOG) 100 unit/mL (3 mL) inpn Inject under the skin 3 (three) times daily before meals Sliding scale. isosorbide mononitrate (IMDUR) 30 MG 24 hr [...] (300 mg total) by mouth nightly. 02/04/2024 documented as of this encounter Progress Notes * Shanique Amaya RN - 01/14/2025 3:42 PM EDT Handover report called to Yvonne at [facility]. [facility] will transport. * David Courtney RN - 01/14/2025 3:36 PM EDT Care Coordination Final Discharge Plan Final Discharge Plan PCP referral provided? Community Referral Discussed with patient: Yes Patient Appealing Discharge: No Does the patient have ability to fill and recive their discharge medications? (will DC to SNF) Patient returning to prior living situation: Yes Support Systems: Family members Discharge Disposition: Other Services Arranged for Discharge: Contact information for follow-up Primary care provider (PCP) Next Steps: Follow up Wally Yoo MD Specialty: Family Medicine Relationship: PCP - General [address] [facility] [address] Next Steps: Follow up [facility] Specialty: Alf Facility [address] [place], [place] [id number] Next Steps: Follow up Transporation Provider: [facility] Root Contact Name: Transportation Provider Phone: Date of water and sewer systems superintendent: (P) 01/14/25 Time of water and sewer systems superintendent: (P) 1540 HD# 3. Confirmed with Yvonne from [facility] that they are able and willing to accept pt at her [place] facility this 01/14. Faxed summary ti [phone]. Arranged [facility] for pick ay 1540. David Courtney RN * Yuliet Castellano RN - 01/13/2025 8:48 PM EDT 01/13/25 1925 Vitals Temp 98.4 ??F (36.9 ??C) Pulse 93 Resp 17 BP 103/54 SpO2 100 % O2 Flow Rate (L/min) 2 L/min O2 Device Nasal cannula Pain Assessment Pain Assessment Scale 0-10 Pain Score Zero Patient's Stated Comfort Goal No pain During Hemodialysis Assessment Hemodialysis Status Completed Ultrafiltration Status Completed Post-Hemodialysis Assessment Total Blood Volume Processed 60.7 mL Duration of Treatment (minutes) 210 min Hemodialysis UF Net Intake (mL) 500 mL Hemodialysis UF Net Output (mL) 3000 mL Hemodialysis UF Gross (mL) 3502 mL * Yuliet Castellano RN - 01/13/2025 8:46 PM EDT 01/13/25 1624 Vitals Temp 97.9 ??F (36.6 ??C) Pulse 88 Resp 20 BP (!) 159/58 SpO2 100 % O2 Flow Rate (L/min) 2 L/min O2 Device Nasal cannula Pain Assessment Pain Assessment Scale 0-10 Pain Score Zero Patient's Stated Comfort Goal No pain Pre-Hemodialysis Assessment Patient Status Arrived Transfer Mode Bed During Hemodialysis Assessment Hemodialysis Status Initiated Ultrafiltration Status Initiated * Yvonne Hawk RN - 01/13/2025 3:00 PM EDT Patient went for dialysis at 1500 * Karla Mosley MD - 01/13/2025 1:09 PM EDT [facility] Progress Note Patient Name: Carla Burkett : 1970 Date of Admission: 01/11/2025 Date of Service: 01/13/2025 PMD: Wally Yoo MD Hospital Course: 54 y.o. female with a history of renal disease on dialysis, CHF, diabetes, hypertension, peripheralvascular disease who presented to [facility] in [place], [place] for further evaluation and management of persistent nausea and vomiting with weakness. Patient went for dialysis today upon arrival she was having persistent nausea and vomiting, and was unable to have dialysis completed. She was sent dialysis facility to the ER for further evaluation. Upon arrival she was evaluated and she notes that yesterday she had dialysis catheter removed and a right upper extremity fistula wasplaced as well is a left arm catheter. Patient sees Dr. Hein regarding end-stage renal disease anddialysis, per ER provider Dr. Cain was concerned for bacteremia. Patient denies any fever or chills, abdominal pain. She does note that she has had persistent nausea vomiting since yesterday, she states she has a history of this but since she has been put on Reglan it has been more controlled. She also reported a headache but no focal motor or sensory deficit at this time. Patient does have a left below- knee amputation, as well is a right foot toe amputation. Emergency room course. Lab findings CBC shows a white count, 0.1 hemoglobin. CMP shows a creatinine level 6.98, glucose 125, alk phos 175. EKG shows sinus tachycardia with a rate of 102. Chest x-ray negative. CT brain due to headache shows no acute abnormality, negative. CT abdomen pelvis without IV contrast currently pending. Patient was given Phenergan and Zofran for nausea vomiting in the ER as well is Rocephin and vancomycin for concerns of bacteremia. Had elevated blood pressure readings and was given hydralazine and labetalol in the ER. Blood pressure readings have ranged from 170/79-233/107, following treatment they are currently ranging between 148/86-175/79. Consultants: Nephrology Procedures: Hemodialysis Anti-infectives: None January 13, 2025 Chief Complaint: Follow-up patient with recurrent nausea and vomiting with end- stage renal disease since yesterday Subjective: Continued to vomit scheduled for hemodialysis today Given IV emetics Review Of Systems: GENERAL: No weakness , no fatigue, no time is denies any weight loss appetite is normal. HEENT: Denies any rhinitis, no sore throat, no diplopia , hearing is normal Respiratory: Denies any shortness of breath , sweating ,dyspnea on exertion , cough or sputum. CVS: Denies any chest pain , palpitation or syncope. Gi: Complains of nausea, vomiting, no abdominal pain no diarrhea, no hematemesis , no melena , no rectal bleeding : No dysuria frequency , hematuria, no retention: Musculoskeletal: Denies any arthritis, or calf pain Hematological: No bleeding , no petechiae. Skin: Denies rash , pruritus , jaundice Endocrine: No polyuria , polydipsia , polyphagia. 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 He is normal weight. HENT: Head: Normocephalic and atraumatic. Nose: Nose normal. Mouth/Throat: Mouth: Mucous membranes are dry. Pharynx: Oropharynx is clear. Eyes: Extraocular Movements: Extraocular movements intact. Conjunctiva/sclera: Conjunctivae normal. Pupils: Pupils are equal, round, and reactive to light. Cardiovascular: Rate and Rhythm: Normal rate and regular rhythm. Pulses: Normal pulses. Heart sounds: Normal heart sounds. Pulmonary: Effort: Pulmonary effort is normal. Breath sounds: Normal breath sounds. Abdominal: General: Abdomen is flat. Bowel sounds are normal. Palpations: Abdomen is soft. Mild tenderness of the lower abdominal Musculoskeletal: General: Normal range of motion. Cervical back: Normal range of motion and neck supple. Skin: General: Skin is warm and dry. Capillary Refill: Capillary refill takes less than 2 seconds. Neurological: General: No focal deficit present. Mental Status: He is alert and oriented to person, place, and time. Mental status is at baseline. Psychiatric: Mood and Affect: Mood normal. Normal Mental status. Normal Cranial Nervies. EOMI. KALIN. Normal 5/5 muscular strength in both upper and lower extremities. Normal sensation. Normal and symmetric reflexes. Normal cerbellar function. Normal Gait. Negative Babinski. Labs Reviewed CBC: Lab Results Component Value Date WBC 7.3 01/13/2025 HGB 10.2 (L) 01/13/2025 HCT 30.7 (L) 01/13/2025 MCV 98 (H) 01/13/2025 CMP: Lab Results Component Value Date NA 139 01/13/2025 CO2 27 01/13/2025 GLUCOSE 147 (H) 01/13/2025 BUN 28.7 (H) 01/13/2025 CREATININE 5.75 (H) 01/13/2025 ALBUMIN 2.9 (L) 01/13/2025 CALCIUM 8.6 01/13/2025 AST 21 01/13/2025 ALT <7 01/13/2025 Lipis Panel: Lab Results Component Value Date CHOL 99 07/19/2024 HDL 32 (L) 07/19/2024 LDLCALC 24 07/19/2024 INR: Lab Results Component Value Date INR 1.16 12/18/2022 Cardiac: No results found for: CK , CKMB No results found for: BNP Lactate: No results found for: LACTATE Blood Culture: No components found for: CULT Imaging: CT ABDOMEN/PELVIS WITHOUT IV CONTRAST Standard Protocol Result Date: 01/11/2025 CT SCAN OF THE ABDOMEN AND PELVIS WITHOUT CONTRAST 01/11/2025 3:49 PM HISTORY: Acute epigastric painCOMPARISON: April 2019 PROCEDURE: Axial images were obtained from the lung bases to the pubic symphysis by computed tomography. This study was performed with techniques to keep radiation doses aslow as reasonably achievable, (ALARA). Individualized dose reduction techniques using automated exposure control or adjustment of mA and/or kV according to the patient size were employed. FINDINGS: ABDOMEN: There is mild bibasilar atelectasis. There is a ventral hernia in the upper abdomen containing omental fat. The liver is fatty infiltrated and somewhat heterogeneous. The gallbladder is absent. The spleen is prominent. There is perinephric stranding bilaterally. There is no hydronephrosis ornephrolithiasis. The right adrenal is minimally calcified. The solid organs are otherwise unremarkable. There is no free fluid or adenopathy. There is a small umbilical hernia containing omental fat.PELVIS: The urinary bladder is distended. The uterus is deviated to the left. An IUD is noted within the uterus. The appendix is not identified. There is no free fluid or adenopathy. No acute process. CT brain without IV contrast Result Date: 01/11/2025 CT brain without IV contrast HISTORY: Weakness after dialysis FINDINGS: Noncontrast imaging. This study was performed with techniques to keep radiation doses as low as reasonably achievable (ALARA). Individualized dose reduction techniques using automated exposure control or adjustment of mA and/orkV according to the patient's size were employed. There is no significant atrophy. Ventricles are normal in size and shape and are midline. There is no mass effect or edema. There is no CVA or hemorrhage. There are no extra-axial fluid collections. Paranasal sinuses are clear. The calvarium is intact. Negative. XR chest AP portable Result Date: 01/11/2025 PORTABLE CHEST 01/11/2025 11:50 AM HISTORY: Septic. COMPARISON: July 2024. FINDINGS: The heart is normal in size . The mediastinum is unremarkable . There is right upper lobe atelectasis. There isno pneumothorax . The osseous structures are unremarkable . There is a left IJ line in good position. Atelectasis as above. Continued follow-up recommended. Images reviewed, interpreted, and dictated by Dr. Ivanna Sutton. Transcribed by Yessica Huerta PA-C. Medications Reviewed: amLODIPine 10 mg oral Daily 10 mg at 01/13/25 0830 aspirin 81 mg oral Daily 81 mg at 01/13/25 0831 atorvastatin 40 mg oral Every Night 40 mg at 01/12/252001 calcitonin (salmon) 1 spray one nostril Daily 1 spray at 01/13/25 1130 calcium carbonate 1,500 mg oral Daily 1,500 mg at 01/13/25 0829 carvediloL 12.5 mg oral BID 12.5 mg at 01/13/25 0831 famotidine 20 mg oral BID 20 mg at 01/13/25 0829 gabapentin 300 mg oral Every Night 300 mg at 01/12/252001 insulin lispro 0-6 Units subcutaneous 4x Daily AC 1 Units at 01/13/25 1305 isosorbide mononitrate 30 mg oral Daily 30 mg at 01/13/25 0830 metoclopramide 10 mg oral TID AC 10 mg at 01/13/25 1130 prasugreL HCl 10 mg oral Daily 10 mg at 01/13/25 0828 sevelamer 800 mg oral TID with meals 800 mg at 01/13/25 0831 sucralfate 1 g oral BID 1 g at 01/13/25 0830 venlafaxine XR 37.5 mg oral Daily 37.5 mg at 01/13/25 0830 Assessment/Plan: Patient Active Problem List Diagnosis Date Noted Persistent vomiting in adult patient 01/11/2025 Cardiac arrest ([facility]) 07/19/2024 CHF (congestive heart failure) ([facility]) 01/19/2024 Diabetic neuropathy ([facility]) 01/19/2024 Smoker 01/19/2024 Hemodialysis patient ([facility]) 01/19/2024 Hypertensive chronic kidney disease with stage 5 chronic kidney disease or end stage renal disease ([facility]) 08/13/2023 Displaced intertrochanteric fracture of left femur, initial encounter for closed fracture ([facility]) 08/08/2023 Supracondylar fracture of distal end of femur with intracondylar extension ([facility]) 08/08/2023 Anxiety 07/20/2023 GERD (gastroesophageal reflux disease) 07/20/2023 SHAYLA (obstructive sleep apnea) 07/20/2023 Other pericardial effusion (noninflammatory) 01/01/2023 Pleural effusion 12/17/2022 Pericardial effusion 12/17/2022 Nausea 11/04/2022 Anaphylactic shock, unspecified, initial encounter 10/08/2022 Anemia in chronic kidney disease 10/06/2022 Chronic kidney disease, unspecified 10/06/2022 Dependence on renal dialysis ([facility]) 10/06/2022 Depression, unspecified 10/06/2022 Hyperlipidemia, unspecified 10/06/2022 Iron deficiency anemia, unspecified 10/06/2022 terminal operator (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 SSRIs Tylenol Phenergan. - Head CT showed no hemorrhage Patient still vomiting refuses to go home for hemodialysis later in today ESRD -Appreciate recommendations. -Reviewed chest x-ray left tunneled dialysis catheter in place -Continue dialysis Thursday MRSA positive nasal screening -Decontamination -I suspect this is colonization chest x-ray negative. Off antibiotics . White count is normal. # Hypertension - Continue amlodipine - Hydralazine as needed - Labetalol as needed #CAD - Continue statin, Coreg, Imdur # Diabetes mellitus type 2 with neuropathy - Insulin sliding scale #CHF - Echo on 07/19/2024 showed EF 75% #Anxiety depression - Continue Effexor GERD - pepcid # Morbid obesity - Complicates all aspects of care. DVT Prophylaxis: SCUDs CODE STATUS: Full code Reason for continued hospitalization and medical necessity: Patient with abdominal pain and recurrent nausea with end-stage renal disease requiring further management Orders today CBC CMP IV fluid IV antiemetic Hemodialysis Time spent: 38+ minute not only including [id number] rounding putting in the orders writing the note and all the conversation reviewing the records This call circuit worker was electronically signed. It was dictated by use of voice recognition software and electronically transcribed. The call circuit worker may contain errors not detected in proofreading. Disposition: Home This has been electronically signed by: @[email or web address] inpatient inpatient Specialists 01/13/2025 * Nataliya Cain MD - 01/13/2025 10:35 AM EDT Images from the original note were not included. Subjective: Patient was seen and examined with all infection control measures.+ nausea. Hospital Course: 54 year old female well-known to my practice with a past medical history of end- stage renal diseaseon chronic hemodialysis on a MWF schedule at [facility] in [facility] who presented to [facility] emergency department being a and having nausea, vomiting, and epigastric discomfort as well as generalized weakness. She presented earlier to her dialysis treatment [facility] dialysis clinic but her treatment could not be proceeded due to her illness. Apparently she had a tunneled hemodialysis catheter exchanged a day before this admission as her old dialysis catheter was partially pulled out with some erythema and redness around the old catheter exit site. She is being admitted to [facility] for further evaluation and I was asked to see herto address her end-stage renal disease needs. Patient was seen and evaluated in the emergency department. Allergies: Sulfa (Sulfonamide Antibiotics) and Tylox [Oxycodone-Acetaminophen] Home Medications: Prior to Admission medications Medication Sig Start Date End Date Taking? Authorizing Provider acetaminophen (TYLENOL) 500 MG tablet Take 1 tablet (500 mg total) by mouth every 4 (four) hours asneeded for pain. Historical Provider, amLODIPine (NORVASC) 10 MG tablet Take 1 tablet (10 mg total) by mouth daily. 12/12/22 Historical Provider, aspirin 81 MG EC tablet Take 1 tablet (81 mg total) by mouth daily. 12/01/22 Historical Provider, atorvastatin (LIPITOR) 40 MG tablet Take 1 tablet (40 mg total) by mouth nightly. 12/03/22 HistoricalProviderMD baclofen (LIORESAL) 10 MG tablet Take 1 tablet (10 mg total) by mouth every night as needed for muscle spasms. Historical Provider, calcitonin salmon, (MIACALCIN) 200 unit/actuation nasal spray [place] 1 spray into one nostril daily. Historical Provider, calcium carbonate 600mg (Caltrate) 600 mg calcium (1,500 mg) tab Take 1 tablet (1,500 mg total) by mouth daily. 04/10/24 Historical Provider, carvediloL (COREG) 12.5 MG tablet Take 1 tablet (12.5 mg total) by mouth 2 (two) times daily. 12/06/22 Historical Provider, diphenhydrAMINE (BENADRYL) 25 mg tablet Take 1 tablet (25 mg total) by mouth 3 (three) times daily as needed for itching. Historical ProviderMD epoetin gia (Procrit) 20,000 unit/2 mL soln injection Inject 2 mLs (20,000 Units total) under the skin once a week. Historical ProviderMD famotidine (PEPCID) 20 MG tablet Take 1 tablet (20 mg total) by mouth 2 (two) times daily. Historical ProviderMD fexofenadine (DANIELLE) 180 MG tablet Take 1 tablet (180 mg total) by mouth daily. Historical Provider, gabapentin (NEURONTIN) 300 MG capsule Take 1 capsule (300 mg total) by mouth nightly. 02/04/24 Historical ProviderMD insulin glargine-yfgn (SEMGLEE) 100 unit/mL soln solution Inject 22 Units subcutaneously 2 (two) times daily. 07/26/24 Loco Cortes MD insulin lispro (HUMALOG, ADMELOG) 100 unit/mL injection Inject subcutaneously 3 (three) times dailybefore meals. Historical Provider, isosorbide mononitrate (IMDUR) 30 MG 24 hr tablet Take 1 tablet (30 mg total) by mouth daily. Historical ProviderMD metoclopramide (REGLAN) 10 MG tablet Take 1 tablet (10 mg total) by mouth 3 (three) times daily before meals. Historical Provider, ondansetron (ZOFRAN) 4 MG tablet Take 1 tablet (4 mg total) by mouth every 8 (eight) hours as needed for nausea. Historical Provider, polyethylene glycol (MIRALAX) 17 gram/dose powder Take 17 g by mouth daily. Historical Provider, prasugreL (EFFIENT) 10 mg tab tablet Take 1 tablet (10 mg total) by mouth. 02/10/24 Historical ProviderMD pseudoephedrine (Sudogest) 60 MG tablet Take 1 tablet (60 mg total) by mouth every 6 (six) hours asneeded for congestion. Historical ProviderMD sevelamer (RENAGEL) 800 MG tablet Take 1 tablet (800 mg total) by mouth 3 (three) times daily with meals. Historical ProviderMD sucralfate (CARAFATE) 1 gram tablet Take 1 tablet (1 g total) by mouth 2 (two) times daily. Historical ProviderMD venlafaxine (Effexor XR) 37.5 MG 24 hr capsule Take 1 capsule (37.5 mg total) by mouth daily. Historical Provider, Current Medications: Current Facility-Administered Medications: acetaminophen (TYLENOL) tablet 1,000 mg, 1,000 mg, oral, Q6H PRN, Olegario Varghese PA-C amLODIPine (NORVASC) tablet 10 mg, 10 mg, oral, Daily, Olegario Varghese PA-C, 10 mg at 01/13/25 0830 aspirin EC tablet 81 mg, 81 mg, oral, Daily, Olegario Varghese PA-C, 81 mg at 01/13/25 0831 atorvastatin (LIPITOR) tablet 40 mg, 40 mg, oral, Every Night, Olegario Varghese PA-C, 40 mg at 01/12/252001 bisacodyL (DULCOLAX) EC tablet 10 mg, 10 mg, oral, Daily PRN OR bisacodyL (DULCOLAX) suppository 10 mg, 10 mg, rectal, Daily PRN, Olegario Varghese PA-C calcitonin (salmon) (MIACALCIN) nasal spray 1 spray, 1 spray, one nostril, Daily, Olegario Varghese PA-C, 1 spray at 01/11/25 180 calcium carbonate (OS-JERRELL) tablet 1250 mg (elemental calcium 500 mg), 1,500 mg, oral, Daily, SHERLY Young, 1,500 mg at 01/13/25 0829 carvediloL (COREG) tablet 12.5 mg, 12.5 mg, oral, BID, Olegario Varghese PA-C, 12.5 mg at 01/13/25 0831 dextrose 50% (D50W) injection 25 g, 25 g, intravenous, Q15 Min PRN, Olegario Varghese PA-C diphenhydrAMINE (BENADRYL) capsule 25 mg, 25 mg, oral, TID PRN, Olegario Varghese PA-C famotidine (PEPCID) tablet 20 mg, 20 mg, oral, BID, Olegario Varghese PA-C, 20 mg at 01/13/25 0829 gabapentin (NEURONTIN) capsule 300 mg, 300 mg, oral, Every Night, Olegario Varghese PA-C, 300 mg at 01/12/252001 glucagon injection 1 mg, 1 mg, intraMUSCULAR, Q15 Min PRN, Olegario Varghese PA-C glucose chew tab 16 g, 16 g, oral, Q15 Min PRN, Olegario Varghese PA-C hydrALAZINE (APRESOLINE) injection 10 mg, 10 mg, intravenous, Q6H PRN, Olegario Varghese PA-C HYDROcodone-acetaminophen (NORCO) 5-325 mg per tablet 1 tablet, 1 tablet, oral, Q6H PRN, Olegario Varghese PA-C, 1 tablet at 01/13/25 0840 insulin lispro (HUMALOG, ADMELOG) injection 0-6 Units, 0-6 Units, subcutaneous, 4x Daily AC, SHERLY Young isosorbide mononitrate (IMDUR) 24 hr tablet 30 mg, 30 mg, oral, Daily, Olegario Varghese PA-C, 30 mg at 01/13/25 0830 labetaloL (TRANDATE, NORMODYNE) injection 10 mg, 10 mg, intravenous, Q4H PRN, Olegario Varghese PA-C melatonin tablet 3 mg, 3 mg, oral, Every Night PRN, Olegario Varghese PA-C metoclopramide (REGLAN) tablet 10 mg, 10 mg, oral, TID AC, Olegario Varghese PA-C, 10 mg at 01/13/25 0829 ondansetron (ZOFRAN) injection 8 mg, 8 mg, intravenous, Q8H PRN, Olegario Varghese PA-C, 8 mg at 01/12/25 1135 polyethylene glycol (GLYCOLAX) packet 17 g, 17 g, oral, Daily PRN, Olegario Varghese PA-C prasugreL HCl (EFFIENT) tablet 10 mg, 10 mg, oral, Daily, Olegario Varghese PA-C, 10 mg at 01/13/25 0828 promethazine (PHENERGAN) 12.5 mg in sodium chloride 0.9 % (NS) 50 mL IVPB (Immediate Use Only), 12.5 mg, intravenous, Q6H PRN, Olegario Varghese PA-C, IVPB Stopped at 01/12/25 1413 sevelamer (RENAGEL) tablet 800 mg, 800 mg, oral, TID with meals, Olegario Varghese PA-C, 800 mg at 01/13/25 0831 sodium chloride flush 10 mL, 10 mL, intravenous, PRN, Benedict Fleming MD sucralfate (CARAFATE) tablet 1 g, 1 g, oral, BID, Olegario Varghese PA-C, 1 g at 01/13/25 0830 venlafaxine XR (EFFEXOR-XR) 24 hr capsule 37.5 mg, 37.5 mg, oral, Daily, Olegario Varghese PA-C, 37.5mg at 01/13/25 0830 Review of Systems Constitutional: Positive for fatigue. HENT: Negative. Eyes: Negative. Respiratory: Negative. Cardiovascular: Negative. Gastrointestinal: Positive for abdominal pain, nausea and vomiting. Endocrine: Negative. Genitourinary: Negative. Musculoskeletal: Negative. Skin: Negative. Allergic/Immunologic: Negative. Neurological: Negative. Hematological: Negative. Psychiatric/Behavioral: Negative. All other systems reviewed and are negative. Vitals Blood pressure 137/72, pulse 99, temperature 98.1 ??F (36.7 ??C), temperature source Oral, resp. rate 17, height 1.676 m (5' 6 ), weight 121.6 kg (268 lb), SpO2 94%. Physical Exam Vitals and nursing note reviewed. Constitutional: Appearance: Normal appearance. She is normal weight. HENT: Head: Normocephalic and atraumatic. Nose: Nose normal. Mouth/Throat: Pharynx: Oropharynx is clear. Eyes: Extraocular Movements: Extraocular movements intact. Conjunctiva/sclera: Conjunctivae normal. Pupils: Pupils are equal, round, and reactive to light. Cardiovascular: Rate and Rhythm: Normal rate. Rhythm irregular. Pulses: Normal pulses. Heart sounds: Normal heart sounds. Pulmonary: Effort: Pulmonary effort is normal. Breath sounds: Normal breath sounds. Abdominal: General: Abdomen is flat. Bowel sounds are normal. Palpations: Abdomen is soft. Musculoskeletal: General: Deformity (Left BKA) present. Normal range of motion. Cervical back: Normal range of motion and neck supple. Right lower leg: Edema present. Skin: General: Skin is warm and dry. Neurological: General: No focal deficit present. Mental Status: She is alert and oriented to person, place, and time. Mental status is at baseline. Psychiatric: Mood and Affect: Mood normal. Behavior: Behavior normal. Thought Content: Thought content normal. Judgment: Judgment normal. Labs: Recent Results (from the past 72 hours) Chem8+ POC Collection Time: 01/10/25 1:13 PM Result Value Ref Range POC Sodium 142 138 - 146 mmol/L POC Potassium 4.8 3.5 - 4.9 mmol/L POC Chloride 97 (L) 98 - 109 mmol/L POC Glucose 138 (H) 70 - 105 mg/dL POC BUN 47 (H) 8 - 26 mg/dL POC Anion Gap 14 10 - 20 mmol/L POC IONIZED CALCIUM BENJI 1.18 1.12 - 1.32 mmol/L POC CO2 TOTAL BENJI 36 (H) 24 - 29 mmol/L POC-Creatinine 6.3 (H) 0.6 - 1.3 mg/dL POC-EGFR 7 mL/min/1.73M2 POC HEMATOCRIT BENJI 32 (L) 38 - 51 %PCV POC HEMOGLOBIN BENJI 10.9 (L) 12.0 - 17.0 g/dL POCT , urine Collection Time: 01/10/25 1:16 PM Result Value Ref Range POC, URINE HCG Negative Negative INTERNAL QC (VALID/INVALID) Valid Kit Lot Number [id number] Expiration Date 2026-05-31 Glucose, Nova Meter Collection Time: 01/10/25 4:39 PM Result Value Ref Range POC-GLUCOSE 112 (H) 70 - 110 mg/dL Certified Ophthalmic Surgical Assistant [id number] CBC with automated diff Collection Time: 01/11/25 11:48 AM Result Value Ref Range WBC 8.8 4.0 - 10.0 K/??L RBC 3.39 (L) 3.93 - 5.22 M/??L Hemoglobin 11.1 (L) 11.2 - 15.7 GM/DL Hematocrit 33.1 (L) 34.1 - 44.9 % MCV 98 (H) 79 - 95 fL MCH 32.7 (H) 25.6 - 32.2 pg MCHC 33.5 32.2 - 35.5 GM/DL RDW 13.3 11.7 - 14.4 % Platelets 243 140 - 375 K/CU MM MPV 9.8 9.4 - 12.3 fL % Neutros 70 34 - 71 % % Lymphs 19 19 - 52 % % Monos 9 5 - 13 % % Eos 1 1 - 6 % % Baso 0 0 - 1 % NRBC Absolute <0.01 0 - 0.012 K/ul # Neutros 6.19 (H) 1.56 - 6.13 K/??L # Lymphs 1.71 1.18 - 3.74 K/??L # Monos 0.75 0.24 - 0.86 K/??L # Eos 0.10 0.04 - 0.36 K/??L # Baso 0.03 0.01 - 0.08 K/??L Immature Granulocytes-Relative 0.60 (H) 0.01 - 0.43 % # IG 0.05 (H) 0.00 - 0.03 K/uL Comprehensive metabolic panel Collection Time: 01/11/25 11:48 AM Result Value Ref Range Sodium 142 136 - 145 meq/L Potassium 4.4 3.4 - 5.1 meq/L Chloride 100 98 - 112 meq/L CO2 31 (H) 22 - 29 meq/L Calcium 10.0 8.4 - 10.2 mg/dL Glucose 125 (H) 74 - 100 mg/dL BUN 46.9 (H) 9.8 - 20.1 mg/dL Creatinine 6.98 (H) 0.57 - 1.11 mg/dL BUN/Creatinine 7 (L) 8 - 20 eGFR (mL/min/1.73m2) 7 (L) >=60 mL/min/1.73m2 Albumin 3.4 (L) 3.5 - 5.0 g/dL Alkaline Phosphatase 175 (H) 40 - 150 U/L ALT 34 <=34 U/L AST 48 (H) 11 - 34 U/L Total Bilirubin 0.4 0.2 - 1.2 mg/dL Protein, Total 7.0 6.4 - 8.3 g/dL Globulin 3.6 2.5 - 4.1 g/dL Anion Gap 15 (H) 4 - 12 A/G Ratio 0.9 0.7 - 1.9 Osmolality Calc 296.8 mOsm/kg Lactic Acid with reflex (SJ) Collection Time: 01/11/25 11:48 AM Result Value Ref Range Lactic Acid Level (mmol/L) 1.2 0.5 - 2.2 mmol/L Blood Culture Collection Time: 01/11/25 11:48 AM Specimen: Blood Result Value Ref Range Result No growth in 24 hours Blood Culture Collection Time: 01/11/25 11:48 AM Specimen: Blood Result Value Ref Range Result No growth in 24 hours COVID ANTIGEN Collection Time: 01/11/25 11:48 AM Specimen: Nasal Swab Result Value Ref Range SARS COVID ANTIGEN Negative Negative, Invalid High Sensitivity Troponin I Collection Time: 01/11/25 11:48 AM Result Value Ref Range Troponin I High Sensitivity (pg/mL) <5.0 <=14 pg/mL Magnesium Collection Time: 01/11/25 11:48 AM Result Value Ref Range Magnesium 2.0 1.6 - 2.6 mg/dL ECG 12 lead Collection Time: 01/11/25 11:51 AM Result Value Ref Range VENTRICULAR RATE EKG/MIN 102 BPM ATRIAL RATE (MCT) 106 BPM AK Interval 164 ms QRS-INTERVAL (MSEC) 84 ms QT Interval 332 ms QTC Interval 432 ms P [place] 54 degrees R AXIS (MCT) 20 degrees T Wave [place] 44 degrees [place] Diagnosis Age and gender specific ECG analysis Sinus tachycardia Low voltage QRS Borderline ECG When compared with ECG of 21-JUL-2024 08:41, No significant change was found Glucose, Nova Meter Collection Time: 01/11/25 6:12 PM Result Value Ref Range POC-GLUCOSE 116 (H) 70 - 110 mg/dL Certified Ophthalmic Surgical Assistant [id number] Glucose, Nova Meter Collection Time: 01/11/25 8:56 PM Result Value Ref Range POC-GLUCOSE 103 70 - 110 mg/dL Certified Ophthalmic Surgical Assistant [id number] Glucose, Nova Meter Collection Time: 01/12/25 5:35 AM Result Value Ref Range POC-GLUCOSE 103 70 - 110 mg/dL Certified Ophthalmic Surgical Assistant [id number] Glucose, Nova Meter Collection Time: 01/12/25 11:21 AM Result Value Ref Range POC-GLUCOSE 106 70 - 110 mg/dL Certified Ophthalmic Surgical Assistant [id number] Glucose, Nova Meter Collection Time: 01/12/25 5:04 PM Result Value Ref Range POC-GLUCOSE 98 70 - 110 mg/dL Certified Ophthalmic Surgical Assistant [id number] Glucose, Nova Meter Collection Time: 01/12/25 8:27 PM Result Value Ref Range POC-GLUCOSE 110 70 - 110 mg/dL Certified Ophthalmic Surgical Assistant [id number] Glucose, Nova Meter Collection Time: 01/13/25 5:54 AM Result Value Ref Range POC-GLUCOSE 111 (H) 70 - 110 mg/dL Certified Ophthalmic Surgical Assistant [id number] CBC with automated diff Collection Time: 01/13/25 9:53 AM Result Value Ref Range WBC 7.3 4.0 - 10.0 K/??L RBC 3.13 (L) 3.93 - 5.22 M/??L Hemoglobin 10.2 (L) 11.2 - 15.7 GM/DL Hematocrit 30.7 (L) 34.1 - 44.9 % MCV 98 (H) 79 - 95 fL MCH 32.6 (H) 25.6 - 32.2 pg MCHC 33.2 32.2 - 35.5 GM/DL RDW 13.1 11.7 - 14.4 % Platelets 211 140 - 375 K/CU MM MPV 9.5 9.4 - 12.3 fL % Neutros 67 34 - 71 % % Lymphs 21 19 - 52 % % Monos 9 5 - 13 % % Eos 2 1 - 6 % % Baso 0 0 - 1 % NRBC Absolute <0.01 0 - 0.012 K/ul # Neutros 4.93 1.56 - 6.13 K/??L # Lymphs 1.53 1.18 - 3.74 K/??L # Monos 0.68 0.24 - 0.86 K/??L # Eos 0.12 0.04 - 0.36 K/??L # Baso 0.03 0.01 - 0.08 K/??L Immature Granulocytes-Relative 0.70 (H) 0.01 - 0.43 % # IG 0.05 (H) 0.00 - 0.03 K/uL Imaging: CT ABDOMEN/PELVIS WITHOUT IV CONTRAST Standard Protocol Result Date: 01/11/2025 CT SCAN OF THE ABDOMEN AND PELVIS WITHOUT CONTRAST 01/11/2025 3:49 PM HISTORY: Acute epigastric painCOMPARISON: April 2019 PROCEDURE: Axial images were obtained from the lung bases to the pubic symphysis by computed tomography. This study was performed with techniques to keep radiation doses aslow as reasonably achievable, (ALARA). Individualized dose reduction techniques using automated exposure control or adjustment of mA and/or kV according to the patient size were employed. FINDINGS: ABDOMEN: There is mild bibasilar atelectasis. There is a ventral hernia in the upper abdomen containing omental fat. The liver is fatty infiltrated and somewhat heterogeneous. The gallbladder is absent. The spleen is prominent. There is perinephric stranding bilaterally. There is no hydronephrosis ornephrolithiasis. The right adrenal is minimally calcified. The solid organs are otherwise unremarkable. There is no free fluid or adenopathy. There is a small umbilical hernia containing omental fat.PELVIS: The urinary bladder is distended. The uterus is deviated to the left. An IUD is noted within the uterus. The appendix is not identified. There is no free fluid or adenopathy. No acute process. CT brain without IV contrast Result Date: 01/11/2025 CT brain without IV contrast HISTORY: Weakness after dialysis FINDINGS: Noncontrast imaging. This study was performed with techniques to keep radiation doses as low as reasonably achievable (ALARA). Individualized dose reduction techniques using automated exposure control or adjustment of mA and/orkV according to the patient's size were employed. There is no significant atrophy. Ventricles are normal in size and shape and are midline. There is no mass effect or edema. There is no CVA or hemorrhage. There are no extra-axial fluid collections. Paranasal sinuses are clear. The calvarium is intact. Negative. XR chest AP portable Result Date: 01/11/2025 PORTABLE CHEST 01/11/2025 11:50 AM HISTORY: Septic. COMPARISON: July 2024. FINDINGS: The heart is normal in size . The mediastinum is unremarkable . There is right upper lobe atelectasis. There isno pneumothorax . The osseous structures are unremarkable . There is a left IJ line in good position. Atelectasis as above. Continued follow-up recommended. Images reviewed, interpreted, and dictated by Dr. Ivanna Sutton. Transcribed by Yessica Huerta PA-C. Assessment: #1 end-stage renal disease on chronic hemodialysis MWF #2 h/o cardiac arrest. #3 Anemia of chronic kidney disease #4 essential hypertension #5 type 2 diabetes mellitus #6 underlying multi-vessel coronary artery disease #7 peripheral vascular disease status post left AKA Plan: MWF schedule. Erythropoietin stimulating agent and IV Iron targeting Hb 10-11 g/dl. Continue her diabetic meds.Monitor renal function electrolytes and acid- base base status status closely. Avoidanceof nephrotoxic agents and renal dosing of meds. Further management of other medical problems as perprimary service and orthopedic surgery. Thank you for this interesting consultation and please do not hesitate to contact me with any question regarding this case. Electronically signed by Nataliya Cain MD 01/12/2025 at 11:36 AM EDT * Tracy Wolf RN - 01/13/2025 10:35 AM EDT 01/13/25 1034 Final Discharge Plan Community Referral Discussed with Patient? No Patient appealing discharge? No Does the patient have the ability to fill and receive their discharge medications? Yes Patient returning to prior living situation? Yes Support Systems Family members Discharge Disposition Home Pt will return home at discharge, will continue regular scheduled HD MWF, family will pickup, no other needs. * Nataliya Cain MD - 01/12/2025 11:35 AM EDT Images from the original note were not included. Subjective: Patient was seen and examined with all infection control measures.+ nausea. Hospital Course: 54 year old female well-known to my practice with a past medical history of end- stage renal diseaseon chronic hemodialysis on a MWF schedule at [facility] in [facility] who presented to [facility] emergency department being a and having nausea, vomiting, and epigastric discomfort as well as generalized weakness. She presented earlier to her dialysis treatment [facility] dialysis clinic but her treatment could not be proceeded due to her illness. Apparently she had a tunneled hemodialysis catheter exchanged a day before this admission as her old dialysis catheter was partially pulled out with some erythema and redness around the old catheter exit site. She is being admitted to [facility] for further evaluation and I was asked to see herto address her end-stage renal disease needs. Patient was seen and evaluated in the emergency department. Allergies: Sulfa (Sulfonamide Antibiotics) and Tylox [Oxycodone-Acetaminophen] Home Medications: Prior to Admission medications Medication Sig Start Date End Date Taking? Authorizing Provider acetaminophen (TYLENOL) 500 MG tablet Take 1 tablet (500 mg total) by mouth every 4 (four) hours asneeded for pain. Historical Provider, amLODIPine (NORVASC) 10 MG tablet Take 1 tablet (10 mg total) by mouth daily. 12/12/22 Historical Provider, aspirin 81 MG EC tablet Take 1 tablet (81 mg total) by mouth daily. 12/01/22 Historical Provider, atorvastatin (LIPITOR) 40 MG tablet Take 1 tablet (40 mg total) by mouth nightly. 12/03/22 HistoricalProvider, baclofen (LIORESAL) 10 MG tablet Take 1 tablet (10 mg total) by mouth every night as needed for muscle spasms. Historical Provider, calcitonin, salmon, (MIACALCIN) 200 unit/actuation nasal spray [place] 1 spray into one nostril daily. Historical Provider, calcium carbonate 600mg (Caltrate) 600 mg calcium (1,500 mg) tab Take 1 tablet (1,500 mg total) by mouth daily. 04/10/24 Historical Provider, carvediloL (COREG) 12.5 MG tablet Take 1 tablet (12.5 mg total) by mouth 2 (two) times daily. 12/06/22 Historical Provider, diphenhydrAMINE (BENADRYL) 25 mg tablet Take 1 tablet (25 mg total) by mouth 3 (three) times daily as needed for itching. Historical Provider, epoetin gia (Procrit) 20,000 unit/2 mL soln injection Inject 2 mLs (20,000 Units total) under the skin once a week. Historical Provider, famotidine (PEPCID) 20 MG tablet Take 1 tablet (20 mg total) by mouth 2 (two) times daily. Historical Provider, fexofenadine (DANIELLE) 180 MG tablet Take 1 tablet (180 mg total) by mouth daily. Historical Provider, gabapentin (NEURONTIN) 300 MG capsule Take 1 capsule (300 mg total) by mouth nightly. 02/04/24 Historical Provider, insulin glargine-yfgn (SEMGLEE) 100 unit/mL soln solution Inject 22 Units subcutaneously 2 (two) times daily. 07/26/24 Loco Cortes MD insulin lispro (HUMALOG, ADMELOG) 100 unit/mL injection Inject subcutaneously 3 (three) times dailybefore meals. Historical Provider, isosorbide mononitrate (IMDUR) 30 MG 24 hr tablet Take 1 tablet (30 mg total) by mouth daily. Historical Provider, metoclopramide (REGLAN) 10 MG tablet Take 1 tablet (10 mg total) by mouth 3 (three) times daily before meals. Historical Provider, ondansetron (ZOFRAN) 4 MG tablet Take 1 tablet (4 mg total) by mouth every 8 (eight) hours as needed for nausea. Historical Provider, polyethylene glycol (MIRALAX) 17 gram/dose powder Take 17 g by mouth daily. Historical Provider, prasugreL (EFFIENT) 10 mg tab tablet Take 1 tablet (10 mg total) by mouth. 02/10/24 Historical Provider, pseudoephedrine (Sudogest) 60 MG tablet Take 1 tablet (60 mg total) by mouth every 6 (six) hours asneeded for congestion. Historical Provider, sevelamer (RENAGEL) 800 MG tablet Take 1 tablet (800 mg total) by mouth 3 (three) times daily with meals. Historical Provider, sucralfate (CARAFATE) 1 gram tablet Take 1 tablet (1 g total) by mouth 2 (two) times daily. Historical Provider, venlafaxine (Effexor XR) 37.5 MG 24 hr capsule Take 1 capsule (37.5 mg total) by mouth daily. Historical Provider, Current Medications: Current Facility-Administered Medications: acetaminophen (TYLENOL) tablet 1,000 mg, 1,000 mg, oral, Q6H PRN, Olegario Varghese PA-C amLODIPine (NORVASC) tablet 10 mg, 10 mg, oral, Daily, Olegario Varghese PA-C, 10 mg at 01/12/25 09 aspirin EC tablet 81 mg, 81 mg, oral, Daily, Olegario Varghese PA-C, 81 mg at 01/12/25933 atorvastatin (LIPITOR) tablet 40 mg, 40 mg, oral, Every Night, Olegario Varghese PA-C, 40 mg at 01/12/25 0014 bisacodyL (DULCOLAX) EC tablet 10 mg, 10 mg, oral, Daily PRN OR bisacodyL (DULCOLAX) suppository 10 mg, 10 mg, rectal, Daily PRN, Olegario Varghese PA-C calcitonin (salmon) (MIACALCIN) nasal spray 1 spray, 1 spray, one nostril, Daily, Olegario Varghese PA-C, 1 spray at 01/11/25 1802 calcium carbonate (OS-JERRELL) tablet 1250 mg (elemental calcium 500 mg), 1,500 mg, oral, Daily, SHERLY Young, 1,500 mg at 01/12/25 0934 carvediloL (COREG) tablet 12.5 mg, 12.5 mg, oral, BID, Olegario Varghese PA-C, 12.5 mg at 01/12/25 0933 dextrose 50% (D50W) injection 25 g, 25 g, intravenous, Q15 Min PRN, Olegario Varghese PA-C diphenhydrAMINE (BENADRYL) capsule 25 mg, 25 mg, oral, TID PRN, Olegario Varghese PA-C famotidine (PEPCID) tablet 20 mg, 20 mg, oral, BID, Olegario Varghese PA-C, 20 mg at 01/12/25 0933 gabapentin (NEURONTIN) capsule 300 mg, 300 mg, oral, Every Night, Olegario Varghese PA-C, 300 mg at 01/12/25 0014 glucagon injection 1 mg, 1 mg, intraMUSCULAR, Q15 Min PRN, Olegario Varghese PA-C glucose chew tab 16 g, 16 g, oral, Q15 Min PRN, Olegario Varghese PA-C hydrALAZINE (APRESOLINE) injection 10 mg, 10 mg, intravenous, Q6H PRN, Olegario Varghese PA-C HYDROcodone-acetaminophen (NORCO) 5-325 mg per tablet 1 tablet, 1 tablet, oral, Q6H PRN, Olegario Varghese PA-C, 1 tablet at 01/12/25 0934 insulin lispro (HUMALOG, ADMELOG) injection 0-6 Units, 0-6 Units, subcutaneous, 4x Daily CHRIS, SHERLY Young isosorbide mononitrate (IMDUR) 24 hr tablet 30 mg, 30 mg, oral, Daily, Olegario Varghese PA-C, 30 mg at 01/12/25 0933 labetaloL (TRANDATE, NORMODYNE) injection 10 mg, 10 mg, intravenous, Q4H PRN, Olegario Varghese PA-C melatonin tablet 3 mg, 3 mg, oral, Every Night PRN, Olegario Varghese PA-C metoclopramide (REGLAN) tablet 10 mg, 10 mg, oral, TID AC, Olegario Varghese PA-C, 10 mg at 01/12/25 0934 ondansetron (ZOFRAN) injection 8 mg, 8 mg, intravenous, Q8H PRN, Olegario Varghese PA-C, 8 mg at 01/12/25 1135 polyethylene glycol (GLYCOLAX) packet 17 g, 17 g, oral, Daily PRN, Olegario Varghese PA-C prasugreL HCl (EFFIENT) tablet 10 mg, 10 mg, oral, Daily, Olegario Varghese PA-C, 10 mg at 01/11/25 1801 promethazine (PHENERGAN) 12.5 mg in sodium chloride 0.9 % (NS) 50 mL IVPB (Immediate Use Only), 12.5 mg, intravenous, Q6H PRN, Olegario Varghese PA-C sevelamer (RENAGEL) tablet 800 mg, 800 mg, oral, TID with meals, Olegario Varghese PA-C, 800 mg at 01/11/25 1800 sodium chloride flush 10 mL, 10 mL, intravenous, PRN, Benedict Fleming MD sucralfate (CARAFATE) tablet 1 g, 1 g, oral, BID, Olegario Varghese PA-C, 1 g at 01/12/25 0933 venlafaxine XR (EFFEXOR-XR) 24 hr capsule 37.5 mg, 37.5 mg, oral, Daily, Olegario Varghese PA-C, 37.5mg at 01/12/25 0933 Review of Systems Constitutional: Positive for fatigue. HENT: Negative. Eyes: Negative. Respiratory: Negative. Cardiovascular: Negative. Gastrointestinal: Positive for abdominal pain, nausea and vomiting. Endocrine: Negative. Genitourinary: Negative. Musculoskeletal: Negative. Skin: Negative. Allergic/Immunologic: Negative. Neurological: Negative. Hematological: Negative. Psychiatric/Behavioral: Negative. All other systems reviewed and are negative. Vitals Blood pressure 139/77, pulse 102, temperature 98.1 ??F (36.7 ??C), temperature source Oral, resp. rate 16, height 1.676 m (5' 6 ), weight 121.6 kg (268 lb), SpO2 94%. Physical Exam Vitals and nursing note reviewed. Constitutional: Appearance: Normal appearance. She is normal weight. HENT: Head: Normocephalic and atraumatic. Nose: Nose normal. Mouth/Throat: Pharynx: Oropharynx is clear. Eyes: Extraocular Movements: Extraocular movements intact. Conjunctiva/sclera: Conjunctivae normal. Pupils: Pupils are equal, round, and reactive to light. Cardiovascular: Rate and Rhythm: Normal rate. Rhythm irregular. Pulses: Normal pulses. Heart sounds: Normal heart sounds. Pulmonary: Effort: Pulmonary effort is normal. Breath sounds: Normal breath sounds. Abdominal: General: Abdomen is flat. Bowel sounds are normal. Palpations: Abdomen is soft. Musculoskeletal: General: Deformity (Left BKA) present. Normal range of motion. Cervical back: Normal range of motion and neck supple. Right lower leg: Edema present. Skin: General: Skin is warm and dry. Neurological: General: No focal deficit present. Mental Status: She is alert and oriented to person, place, and time. Mental status is at baseline. Psychiatric: Mood and Affect: Mood normal. Behavior: Behavior normal. Thought Content: Thought content normal. Judgment: Judgment normal. Labs: Recent Results (from the past 72 hours) Chem8+ POC Collection Time: 01/10/25 1:13 PM Result Value Ref Range POC Sodium 142 138 - 146 mmol/L POC Potassium 4.8 3.5 - 4.9 mmol/L POC Chloride 97 (L) 98 - 109 mmol/L POC Glucose 138 (H) 70 - 105 mg/dL POC BUN 47 (H) 8 - 26 mg/dL POC Anion Gap 14 10 - 20 mmol/L POC IONIZED CALCIUM BENJI 1.18 1.12 - 1.32 mmol/L POC CO2 TOTAL BENJI 36 (H) 24 - 29 mmol/L POC-Creatinine 6.3 (H) 0.6 - 1.3 mg/dL POC-EGFR 7 mL/min/1.73M2 POC HEMATOCRIT BENJI 32 (L) 38 - 51 %PCV POC HEMOGLOBIN BENJI 10.9 (L) 12.0 - 17.0 g/dL POCT , urine Collection Time: 01/10/25 1:16 PM Result Value Ref Range POC, URINE HCG Negative Negative INTERNAL QC (VALID/INVALID) Valid Kit Lot Number [id number] Expiration Date 2026-05-31 Glucose, Nova Meter Collection Time: 01/10/25 4:39 PM Result Value Ref Range POC-GLUCOSE 112 (H) 70 - 110 mg/dL Certified Ophthalmic Surgical Assistant [id number] CBC with automated diff Collection Time: 01/11/25 11:48 AM Result Value Ref Range WBC 8.8 4.0 - 10.0 K/??L RBC 3.39 (L) 3.93 - 5.22 M/??L Hemoglobin 11.1 (L) 11.2 - 15.7 GM/DL Hematocrit 33.1 (L) 34.1 - 44.9 % MCV 98 (H) 79 - 95 fL MCH 32.7 (H) 25.6 - 32.2 pg MCHC 33.5 32.2 - 35.5 GM/DL RDW 13.3 11.7 - 14.4 % Platelets 243 140 - 375 K/CU MM MPV 9.8 9.4 - 12.3 fL % Neutros 70 34 - 71 % % Lymphs 19 19 - 52 % % Monos 9 5 - 13 % % Eos 1 1 - 6 % % Baso 0 0 - 1 % NRBC Absolute <0.01 0 - 0.012 K/ul # Neutros 6.19 (H) 1.56 - 6.13 K/??L # Lymphs 1.71 1.18 - 3.74 K/??L # Monos 0.75 0.24 - 0.86 K/??L # Eos 0.10 0.04 - 0.36 K/??L # Baso 0.03 0.01 - 0.08 K/??L Immature Granulocytes-Relative 0.60 (H) 0.01 - 0.43 % # IG 0.05 (H) 0.00 - 0.03 K/uL Comprehensive metabolic panel Collection Time: 01/11/25 11:48 AM Result Value Ref Range Sodium 142 136 - 145 meq/L Potassium 4.4 3.4 - 5.1 meq/L Chloride 100 98 - 112 meq/L CO2 31 (H) 22 - 29 meq/L Calcium 10.0 8.4 - 10.2 mg/dL Glucose 125 (H) 74 - 100 mg/dL BUN 46.9 (H) 9.8 - 20.1 mg/dL Creatinine 6.98 (H) 0.57 - 1.11 mg/dL BUN/Creatinine 7 (L) 8 - 20 eGFR (mL/min/1.73m2) 7 (L) >=60 mL/min/1.73m2 Albumin 3.4 (L) 3.5 - 5.0 g/dL Alkaline Phosphatase 175 (H) 40 - 150 U/L ALT 34 <=34 U/L AST 48 (H) 11 - 34 U/L Total Bilirubin 0.4 0.2 - 1.2 mg/dL Protein, Total 7.0 6.4 - 8.3 g/dL Globulin 3.6 2.5 - 4.1 g/dL Anion Gap 15 (H) 4 - 12 A/G Ratio 0.9 0.7 - 1.9 Osmolality Calc 296.8 mOsm/kg Lactic Acid with reflex (SJ) Collection Time: 01/11/25 11:48 AM Result Value Ref Range Lactic Acid Level (mmol/L) 1.2 0.5 - 2.2 mmol/L COVID ANTIGEN Collection Time: 01/11/25 11:48 AM Specimen: Nasal Swab Result Value Ref Range SARS COVID ANTIGEN Negative Negative, Invalid High Sensitivity Troponin I Collection Time: 01/11/25 11:48 AM Result Value Ref Range Troponin I High Sensitivity (pg/mL) <5.0 <=14 pg/mL Magnesium Collection Time: 01/11/25 11:48 AM Result Value Ref Range Magnesium 2.0 1.6 - 2.6 mg/dL ECG 12 lead Collection Time: 01/11/25 11:51 AM Result Value Ref Range VENTRICULAR RATE EKG/MIN 102 BPM ATRIAL RATE (MCT) 106 BPM AK Interval 164 ms QRS-INTERVAL (MSEC) 84 ms QT Interval 332 ms QTC Interval 432 ms P [place] 54 degrees R AXIS (MCT) 20 degrees T Wave [place] 44 degrees Friend[place] Diagnosis Age and gender specific ECG analysis Sinus tachycardia Low voltage QRS Borderline ECG When compared with ECG of 21-JUL-2024 08:41, No significant change was found Glucose, Nova Meter Collection Time: 01/11/25 6:12 PM Result Value Ref Range POC-GLUCOSE 116 (H) 70 - 110 mg/dL Certified Ophthalmic Surgical Assistant [id number] Glucose, Nova Meter Collection Time: 01/11/25 8:56 PM Result Value Ref Range POC-GLUCOSE 103 70 - 110 mg/dL Certified Ophthalmic Surgical Assistant [id number] Glucose, Nova Meter Collection Time: 01/12/25 5:35 AM Result Value Ref Range POC-GLUCOSE 103 70 - 110 mg/dL Certified Ophthalmic Surgical Assistant [id number] Glucose, Nova Meter Collection Time: 01/12/25 11:21 AM Result Value Ref Range POC-GLUCOSE 106 70 - 110 mg/dL Certified Ophthalmic Surgical Assistant [id number] Imaging: CT ABDOMEN/PELVIS WITHOUT IV CONTRAST Standard Protocol Result Date: 01/11/2025 CT SCAN OF THE ABDOMEN AND PELVIS WITHOUT CONTRAST 01/11/2025 3:49 PM HISTORY: Acute epigastric painCOMPARISON: April 2019 PROCEDURE: Axial images were obtained from the lung bases to the pubic symphysis by computed tomography. This study was performed with techniques to keep radiation doses aslow as reasonably achievable, (ALARA). Individualized dose reduction techniques using automated exposure control or adjustment of mA and/or kV according to the patient size were employed. FINDINGS: ABDOMEN: There is mild bibasilar atelectasis. There is a ventral hernia in the upper abdomen containing omental fat. The liver is fatty infiltrated and somewhat heterogeneous. The gallbladder is absent. The spleen is prominent. There is perinephric stranding bilaterally. There is no hydronephrosis ornephrolithiasis. The right adrenal is minimally calcified. The solid organs are otherwise unremarkable. There is no free fluid or adenopathy. There is a small umbilical hernia containing omental fat.PELVIS: The urinary bladder is distended. The uterus is deviated to the left. An IUD is noted within the uterus. The appendix is not identified. There is no free fluid or adenopathy. No acute process. CT brain without IV contrast Result Date: 01/11/2025 CT brain without IV contrast HISTORY: Weakness after dialysis FINDINGS: Noncontrast imaging. This study was performed with techniques to keep radiation doses as low as reasonably achievable (ALARA). Individualized dose reduction techniques using automated exposure control or adjustment of mA and/orkV according to the patient's size were employed. There is no significant atrophy. Ventricles are normal in size and shape and are midline. There is no mass effect or edema. There is no CVA or hemorrhage. There are no extra-axial fluid collections. Paranasal sinuses are clear. The calvarium is intact. Negative. XR chest AP portable Result Date: 01/11/2025 PORTABLE CHEST 01/11/2025 11:50 AM HISTORY: Septic. COMPARISON: July 2024. FINDINGS: The heart is normal in size . The mediastinum is unremarkable . There is right upper lobe atelectasis. There isno pneumothorax . The osseous structures are unremarkable . There is a left IJ line in good position. Atelectasis as above. Continued follow-up recommended. Images reviewed, interpreted, and dictated by Dr. Ivanna Sutton. Transcribed by Yessica Huerta PA-C. Assessment: #1 end-stage renal disease on chronic hemodialysis MWF #2 h/o cardiac arrest. #3 Anemia of chronic kidney disease #4 essential hypertension #5 type 2 diabetes mellitus #6 underlying multi-vessel coronary artery disease #7 peripheral vascular disease status post left AKA Plan: HD in AM the resume MWF schedule. Erythropoietin stimulating agent and IV Iron targeting Hb 10-11 g/dl. Continue her diabetic meds.Monitor renal function electrolytes and acid-base base status statusclosely. Avoidance of nephrotoxic agents and renal dosing of meds. Further management of other medical problems as per primary service and orthopedic surgery. Thank you for this interesting consultation and please do not hesitate to contact me with any question regarding this case. Electronically signed by Nataliya Cain MD 01/12/2025 at 11:36 AM EDT * Tracy Wolf RN - 01/12/2025 10:08 AM EDT 01/12/25 1005 Home Environment Type of Residence [facility] Support Systems Family members;Friends/neighbors Accessibilty Issues None Agency Type Fdc Care Fdc Care Name and Number [facility] Patient returning to prior living situation? Yes Affect Behavior Appropriate Prior/Regular Transportation Wheelchair van Needs Assistance with Transportation Yes ADL Assessment Assistive Devices Walker;Wheelchair Transition Needs Home or Post Acute Services Post acute facilities (Rehab/SNF/etc) Type of Post Acute Facility Services terminal operator care Does the patient have the ability to fill and receive their discharge medications? Yes Discharge Plan Discussed The discharge plan was discussed with patient. Discharge Plan Outcome Patient/family pest control service representative agrees with the discharge plan Discharge Barriers None Type of Assistive Devices Needed for Discharge None Patient Discharge Goal Home Mandated Reporting Not applicable CM spoke with pt at bedside, pt resides at [facility], has used HH in the past unable toremember name, uses a W/C, and sometimes a FWW. Pt will need transportation back [facility]. [facility] [phone] will be here to pick pt up, they were unable to give a specific time, nurse station number was given for when ride is here, bedside nurse updated, pt wheelchair in room. * Gabino Esteban MD - 01/12/2025 9:22 AM EDT Subjective Carla Burkett is a 54 y.o. female on hospital day 0. Seen examined bedside still have some intermittent vomiting. Headaches resolved patient wants to eat. Review of Systems As above Objective Vitals: Temp: [98 ??F (36.7 ??C)-98.8 ??F (37.1 ??C)] 98 ??F (36.7 ??C) Pulse: [84-111] 90 Resp: [7-40] 16 BP: (128-233)/(58-107) 129/71 Intake/Output: No intake or output data in the 24 hours ending 01/12/25 0922 Physical exam: Constitutional: Appearance: She is obese. HENT: Head: Normocephalic and atraumatic. Eyes: Extraocular Movements: Extraocular movements intact. Pupils: Pupils are equal, round, and reactive to light. Pulmonary: Effort: Pulmonary effort is normal. No respiratory distress. Breath sounds: Normal breath sounds. Abdominal: General: Bowel sounds are normal. Palpations: Abdomen is soft. Musculoskeletal: Cervical back: Normal range of motion. Skin: Comments: Dialysis port area clean, dry and without surrounding erythema. Catheter placement area clean, dry, and without surrounding erythema. Neurological: General: No focal deficit present. Mental Status: She is alert and oriented to person, place, and time. Psychiatric: Mood and Affect: Mood normal. Behavior: Behavior normal. Thought Content: Thought content normal. Labs: Recent Labs Lab(s) Units 01/12/25 0535 01/11/25 2056 01/11/25 1812 01/11/25 1148 WBC K/??L -- -- -- 8.8 HGB GM/DL -- -- -- 11.1* HCT % -- -- -- 33.1* PLT K/CU MM -- -- -- 243 MG mg/dL -- -- -- 2.0 NA meq/L -- -- -- 142 K meq/L -- -- -- 4.4 CL meq/L -- -- -- 100 CO2 meq/L -- -- -- 31* BUN mg/dL -- -- -- 46.9* CREATININE mg/dL -- -- -- 6.98* EGFR mL/min/1.73m2 -- -- -- 7* GLUCOSE mg/dL 103 103 116* 125* CALCIUM mg/dL -- -- -- 10.0 ALKPHOS U/L -- -- -- 175* BILITOT mg/dL -- -- -- 0.4 PROT g/dL -- -- -- 7.0 ALT U/L -- -- -- 34 AST U/L -- -- -- 48* Results for orders placed or performed during the hospital encounter of 01/11/25 (from the past 24 hours) CBC with automated diff Status: Abnormal Collection Time: 01/11/25 11:48 AM Result Value Ref Range WBC 8.8 4.0 - 10.0 K/??L RBC 3.39 (L) 3.93 - 5.22 M/??L Hemoglobin 11.1 (L) 11.2 - 15.7 GM/DL Hematocrit 33.1 (L) 34.1 - 44.9 % MCV 98 (H) 79 - 95 fL MCH 32.7 (H) 25.6 - 32.2 pg MCHC 33.5 32.2 - 35.5 GM/DL RDW 13.3 11.7 - 14.4 % Platelets 243 140 - 375 K/CU MM MPV 9.8 9.4 - 12.3 fL % Neutros 70 34 - 71 % % Lymphs 19 19 - 52 % % Monos 9 5 - 13 % % Eos 1 1 - 6 % % Baso 0 0 - 1 % NRBC Absolute <0.01 0 - 0.012 K/ul # Neutros 6.19 (H) 1.56 - 6.13 K/??L # Lymphs 1.71 1.18 - 3.74 K/??L # Monos 0.75 0.24 - 0.86 K/??L # Eos 0.10 0.04 - 0.36 K/??L # Baso 0.03 0.01 - 0.08 K/??L Immature Granulocytes-Relative 0.60 (H) 0.01 - 0.43 % # IG 0.05 (H) 0.00 - 0.03 K/uL Comprehensive metabolic panel Status: Abnormal Collection Time: 01/11/25 11:48 AM Result Value Ref Range Sodium 142 136 - 145 meq/L Potassium 4.4 3.4 - 5.1 meq/L Chloride 100 98 - 112 meq/L CO2 31 (H) 22 - 29 meq/L Calcium 10.0 8.4 - 10.2 mg/dL Glucose 125 (H) 74 - 100 mg/dL BUN 46.9 (H) 9.8 - 20.1 mg/dL Creatinine 6.98 (H) 0.57 - 1.11 mg/dL BUN/Creatinine 7 (L) 8 - 20 eGFR (mL/min/1.73m2) 7 (L) >=60 mL/min/1.73m2 Albumin 3.4 (L) 3.5 - 5.0 g/dL Alkaline Phosphatase 175 (H) 40 - 150 U/L ALT 34 <=34 U/L AST 48 (H) 11 - 34 U/L Total Bilirubin 0.4 0.2 - 1.2 mg/dL Protein, Total 7.0 6.4 - 8.3 g/dL Globulin 3.6 2.5 - 4.1 g/dL Anion Gap 15 (H) 4 - 12 A/G Ratio 0.9 0.7 - 1.9 Osmolality Calc 296.8 mOsm/kg Lactic Acid with reflex (SJ) Status: Normal Collection Time: 01/11/25 11:48 AM Result Value Ref Range Lactic Acid Level (mmol/L) 1.2 0.5 - 2.2 mmol/L COVID ANTIGEN Status: Normal Collection Time: 01/11/25 11:48 AM Specimen: Nasal Swab Result Value Ref Range SARS COVID ANTIGEN Negative Negative, Invalid High Sensitivity Troponin I Status: Normal Collection Time: 01/11/25 11:48 AM Result Value Ref Range Troponin I High Sensitivity (pg/mL) <5.0 <=14 pg/mL Magnesium Status: Normal Collection Time: 01/11/25 11:48 AM Result Value Ref Range Magnesium 2.0 1.6 - 2.6 mg/dL ECG 12 lead Status: None (In process) Collection Time: 01/11/25 11:51 AM Result Value Ref Range VENTRICULAR RATE EKG/MIN 102 BPM ATRIAL RATE (MCT) 106 BPM AK Interval 164 ms QRS-INTERVAL (MSEC) 84 ms QT Interval 332 ms QTC Interval 432 ms P [place] 54 degrees R AXIS (MCT) 20 degrees T Wave [place] 44 degrees Friendly Diagnosis Age and gender specific ECG analysis Sinus tachycardia Low voltage QRS Borderline ECG When compared with ECG of 21-JUL-2024 08:41, No significant change was found Glucose, Nova Meter Status: Abnormal Collection Time: 01/11/25 6:12 PM Result Value Ref Range POC-GLUCOSE 116 (H) 70 - 110 mg/dL Certified Ophthalmic Surgical Assistant [id number] Glucose, Nova Meter Status: None Collection Time: 01/11/25 8:56 PM Result Value Ref Range POC-GLUCOSE 103 70 - 110 mg/dL Certified Ophthalmic Surgical Assistant [id number] Glucose, Nova Meter Status: None Collection Time: 01/12/25 5:35 AM Result Value Ref Range POC-GLUCOSE 103 70 - 110 mg/dL Certified Ophthalmic Surgical Assistant [id number] Radiology: CT ABDOMEN/PELVIS WITHOUT IV CONTRAST Standard Protocol Final Result No acute process. CT brain without IV contrast Final Result Negative. XR chest AP portable Final Result Atelectasis as above. Continued follow-up recommended. Images reviewed, interpreted, and dictated by Dr. Ivanan Sutton. Transcribed by Yessica Huerta PA-C. Medications: Scheduled Meds: amLODIPine 10 mg oral Daily 10 mg at 01/11/25 1758 aspirin 81 mg oral Daily 81 mg at 01/11/25 175 atorvastatin 40 mg oral Every Night 40 mg at 01/12/25 0014 calcitonin (salmon) 1 spray one nostril Daily 1 spray at 01/11/25 180 calcium carbonate 1,500 mg oral Daily 1,500 mg at 01/11/25 1801 carvediloL 12.5 mg oral BID 12.5 mg at 01/12/25 0014 famotidine 20 mg oral BID 20 mg at 01/12/25 0014 gabapentin 300 mg oral Every Night 300 mg at 01/12/25 0014 insulin lispro 0-6 Units subcutaneous 4x Daily AC isosorbide mononitrate 30 mg oral Daily 30 mg at 01/11/25 181 metoclopramide 10 mg oral TID AC 10 mg at 01/11/25 175 prasugreL HCl 10 mg oral Daily 10 mg at 01/11/25 1801 sevelamer 800 mg oral TID with meals 800 mg at 01/11/25 1800 sucralfate 1 g oral BID 1 g at 01/12/25 0014 venlafaxine XR 37.5 mg oral Daily 37.5 mg at 01/11/25 1800 Continuous Infusions: Current Facility-Administered Medications Medication Dose Route Frequency Provider Last Rate Last Admin acetaminophen (TYLENOL) tablet 1,000 mg 1,000 mg oral Q6H PRN Olegario Varghese PA-C amLODIPine (NORVASC) tablet 10 mg 10 mg oral Daily Olegario Varghese PA-C 10 mg at 01/11/25 1758 aspirin EC tablet 81 mg 81 mg oral Daily Olegario Varghese PA-C 81 mg at 01/11/25 175 atorvastatin (LIPITOR) tablet 40 mg 40 mg oral Every Night Olegario Varghese PA-C 40 mg at 01/12/25 001 bisacodyL (DULCOLAX) EC tablet 10 mg 10 mg oral Daily PRN Olegario Varghese PA-C Or bisacodyL (DULCOLAX) suppository 10 mg 10 mg rectal Daily PRN Olegario Varghese PA-C calcitonin (salmon) (MIACALCIN) nasal spray 1 spray 1 spray one nostril Daily Olegario Varghese PA-C 1 spray at 01/11/25 180 calcium carbonate (OS-JERRELL) tablet 1250 mg (elemental calcium 500 mg) 1,500 mg oral Daily Olegario Varghese PA-C 1,500 mg at 01/11/25 180 carvediloL (COREG) tablet 12.5 mg 12.5 mg oral BID Olegario Varghese PA-C 12.5 mg at 01/12/25 0014 dextrose 50% (D50W) injection 25 g 25 g intravenous Q15 Min PRN Olegario Varghese PA-C diphenhydrAMINE (BENADRYL) capsule 25 mg 25 mg oral TID PRN Olegario Varghese PA-C famotidine (PEPCID) tablet 20 mg 20 mg oral BID Olegario Varghese PA-C 20 mg at 01/12/25 0014 gabapentin (NEURONTIN) capsule 300 mg 300 mg oral Every Night Olegario Varghese PA-C 300 mg at 01/12/25 0014 glucagon injection 1 mg 1 mg intraMUSCULAR Q15 Min PRN Olegario Varghese PA-C glucose chew tab 16 g 16 g oral Q15 Min PRN Olegario Varghese PA-C hydrALAZINE (APRESOLINE) injection 10 mg 10 mg intravenous Q6H PRN Olegario Varghese PA-C HYDROcodone-acetaminophen (NORCO) 5-325 mg per tablet 1 tablet 1 tablet oral Q6H PRN Olegario Varghese PA-C 1 tablet at 01/12/25 0217 insulin lispro (HUMALOG, ADMELOG) injection 0-6 Units 0-6 Units subcutaneous 4x Daily AC Olegario Varghese PA-C isosorbide mononitrate (IMDUR) 24 hr tablet 30 mg 30 mg oral Daily Olegario Varghese PA-C 30 mg at 01/11/25 181 labetaloL (TRANDATE, NORMODYNE) injection 10 mg 10 mg intravenous Q4H PRN Olegario Varghese PA-C melatonin tablet 3 mg 3 mg oral Every Night PRN Olegario Varghese PA-C metoclopramide (REGLAN) tablet 10 mg 10 mg oral TID AC Olegario Varghese PA-C 10 mg at 01/11/25 1757 ondansetron (ZOFRAN) injection 8 mg 8 mg intravenous Q8H PRN Olegario Varghese PA-C polyethylene glycol (GLYCOLAX) packet 17 g 17 g oral Daily PRN Olegario Varghese PA-C prasugreL HCl (EFFIENT) tablet 10 mg 10 mg oral Daily Olegario Varghese PA-C 10 mg at 01/11/25 1801 promethazine (PHENERGAN) 12.5 mg in sodium chloride 0.9 % (NS) 50 mL IVPB (Immediate Use Only) 12.5mg intravenous Q6H PRN Olegario Varghese PA-C sevelamer (RENAGEL) tablet 800 mg 800 mg oral TID with meals DAMIEN Dunham 800 mg at 01/11/25 1800 sodium chloride flush 10 mL 10 mL intravenous PRN Benedict Fleming MD sucralfate (CARAFATE) tablet 1 g 1 g oral BID Olegario Varghese PA-C 1 g at 01/12/25 0014 venlafaxine XR (EFFEXOR-XR) 24 hr capsule 37.5 mg 37.5 mg oral Daily Olegario Varghese PA-C 37.5 mg at 01/11/25 1800 PRN Meds: @MEDSPRN@ Assessment and Plan Persistent nausea vomiting/headache Wide differential -Migraines, tension headache, gastroparesis, uncontrolled hypertension, aneurysms, gastritis , dialysis related. - Reviewed blood pressure logs moderately elevated maximum reading was 165/72. Respiratory rate is normal normal saturation no fever - Symptomatic treatment With Carafate. SSRIs Tylenol Phenergan. - Head CT showed no hemorrhage ESRD -Appreciate recommendations -Reviewed chest x-ray left tunneled dialysis catheter in place -Continue dialysis Thursday MRSA positive nasal screening -Decontamination -I suspect this is colonization chest x-ray negative. -On ceftriaxone and vancomycin. May remove as long as she is hemodynamically stable. White count isnormal. # Hypertension - Continue amlodipine - Hydralazine as needed - Labetalol as needed #CAD - Continue statin, Coreg, Imdur # Diabetes mellitus type 2 with neuropathy - Insulin sliding scale #CHF - Echo on 07/19/2024 showed EF 75% #Anxiety depression - Continue Effexor GERD - pepcid # Morbid obesity - Complicates all aspects of care. Diet: Orders Placed This Encounter Procedures NPO Except: Sips with meds DVT ppx: SCDs PUD ppx: H2 blockers Code Status: Full Code MDM: CBC shows hemoglobin is 11.1 white count is normal platelets 243 left shift is 0.6% creatinineis 6 reflecting ESRD normal sodium and potassium albumin 3.4 bicarb is 31 lactate is 1.2 Continue symptomatic treatment for nausea and vomiting. Will consider consult GI. Continue Reglan, sucralfate, H2 blockers, antihistamines Discharge Planning: May be home the next 1 to 2 days. documented in this encounter H&P Notes * Olegario Varghese PA-C - 01/11/2025 3:51 PM EDT [facility] Patient Name: Carla Burkett : 1970 Date: 01/11/2025 PCP: Wally Yoo MD Date of Admission: 01/11/2025 Chief Complaint: vomting and weakness History of Present Illness Carla Burkett is a 54 y.o. female with a history of renal disease on dialysis, CHF, diabetes, hypertension, peripheral vascular disease who presents to [facility] in [place], [place] for further evaluation and management of persistent nausea and vomiting with weakness. Patient went for dialysis today upon arrival she was having persistent nausea and vomiting, and was unable to have dialysis completed. She was sent dialysis facility to the ER for further evaluation. Upon arrival she was evaluated and she notes that yesterday she had dialysis catheter removed and a right upper extremity fistula was placed as well is a left arm catheter. Patient sees Dr. Hein regarding end-stage renal disease and dialysis, per ER provider Dr. Conner was concerned for bacteremia. Patient denies anyfever or chills, abdominal pain. She does note that she has had persistent nausea vomiting since yesterday, she states she has a history of this but since she has been put on Reglan it has been more controlled. She also reports a headache but no focal motor or sensory deficit at this time. Patient d oes have a left below-knee amputation, as well is a right foot toe amputation. Lab findings CBC shows a white count, 0.1 hemoglobin. CMP shows a creatinine level 6.98, glucose 125, alk phos 175. EKG shows sinus tachycardia with a rate of 102. Chest x-ray negative. CT brain due to headache shows no acute abnormality, negative. CT abdomen pelvis without IV contrast currently pending. Patient was given Phenergan and Zofran for nausea vomiting in the ER as well is Rocephin and vancomycin for concerns of bacteremia. Had elevated blood pressure readings and was given hydralazine and labetalol in the ER. Blood pressure readings have ranged from 170/79-233/107, following treatment they are currently ranging between 148/86-175/79. Past Medical History: Past Medical History: Diagnosis Date C. difficile colitis Cardiac arrest ([facility]) 07/19/2024 CHF (congestive heart failure) ([facility]) 01/19/2024 Chronic kidney disease Coronary artery disease-heart stents x 2 2019 CTS (carpal tunnel syndrome)left Depression Diabetes mellitus (HCC) ESRD (end stage renal disease) on dialysis ([facility]) Hyperlipidemia, unspecified 10/06/2022 Hypertension Kidney failure Obstructive sleep apnea Osteomyelitis ([facility]) resolved Peripheral vascular disease due to secondary diabetes ([facility]) Post-menopausal Wound of right foot wrapped Past Surgical History: Past Surgical History: Procedure Laterality Date AMPUTATION,TOE Right BELOW KNEE LEG AMPUTATION Left toes first then debridement CARPAL TUNNEL RELEASE Right CREATION,A-V FISTULA Right 01/10/2025 Procedure: LEFT IJ tunneled catheter exchanged RIGHT brachiocephalic arteriovenous fistula creation; Surgeon: Baljinder Sloan MD; Location: [facility] OR; Service: Vascular Surgery; Laterality: Right; CREATION,PERICARDIAL WINDOW N/A 12/19/2022 Procedure: CREATION, PERICARDIAL WINDOW; Surgeon: Bogdan Hernandez IV, MD; Location: [facility] OR; Service: CV Surgery; Laterality: N/A; AO#3, AVAIL TF, 3HR(A) GALLBLADDER SURGERY heart stents INSERTION,DIALYSIS CATHETER KNEE ARTHROSCOPY Right ORIF,FEMUR Left 08/10/2023 Procedure: ORIF LT FEMUR); Surgeon: Otf Birmingham MD; Location: [facility] OR; Service: OrthopaedicSurgery; Laterality: Left; AO# 4, AVAIL TF melvi left hip TONSILLECTOMY TRANSPOSITION,VEIN Left 04/20/2023 Procedure: (LT UPPER EXTREMITY AV FISTULA); Surgeon: Baljinder Sloan MD; Location: [facility] OR; Service: Vascular; Laterality: Left; IN 0600, 1 HR (R) Social History: Social History Tobacco Use Smoking status: Some Days Types: Cigarettes Smokeless tobacco: Former Tobacco comments: Vap daily Substance Use Topics Alcohol use: Not Currently Drug use: Not Currently Types: Marijuana Comment: yrs ago Family History: No family history on file. Documented Allergies: Allergies Allergen Reactions Sulfa (Sulfonamide Antibiotics) Tylox [Oxycodone-Acetaminophen] Nausea Only Pt states she can tolerate hydrocodone (verified 12/19/22) Documented [employer] Medications: (Not in a hospital admission) Review of Systems A 14 point review of systems was obtained and is noncontributory except as noted below. Available past medical, social and family history reviewed. Review of Systems Constitutional: Negative for chills and fever. Respiratory: Negative for shortness of breath and wheezing. Cardiovascular: Negative for chest pain and palpitations. Gastrointestinal: Positive for nausea and vomiting. Negative for abdominal pain, constipation and diarrhea. Genitourinary: Does produce some urine. Neurological: Positive for weakness. Objective Vitals: Temp: [98.8 ??F (37.1 ??C)] 98.8 ??F (37.1 ??C) Pulse: [84-111] 86 Resp: [18-20] 20 BP: (148-233)/(66-107) 175/79 Intake/Output: No intake or output data in the 24 hours ending 01/11/25 1551 Physical Exam Constitutional: Appearance: She is obese. HENT: Head: Normocephalic and atraumatic. Eyes: Extraocular Movements: Extraocular movements intact. Pupils: Pupils are equal, round, and reactive to light. Pulmonary: Effort: Pulmonary effort is normal. No respiratory distress. Breath sounds: Normal breath sounds. Abdominal: General: Bowel sounds are normal. Palpations: Abdomen is soft. Musculoskeletal: Cervical back: Normal range of motion. Skin: Comments: Dialysis port area clean, dry and without surrounding erythema. Catheter placement area clean, dry, and without surrounding erythema. Neurological: General: No focal deficit present. Mental Status: She is alert and oriented to person, place, and time. Psychiatric: Mood and Affect: Mood normal. Behavior: Behavior normal. Thought Content: Thought content normal. Recent Labs: Results for orders placed or performed during the hospital encounter of 01/11/25 (from the past 24 hours) CBC with automated diff Status: Abnormal Collection Time: 01/11/25 11:48 AM Result Value Ref Range WBC 8.8 4.0 - 10.0 K/??L RBC 3.39 (L) 3.93 - 5.22 M/??L Hemoglobin 11.1 (L) 11.2 - 15.7 GM/DL Hematocrit 33.1 (L) 34.1 - 44.9 % MCV 98 (H) 79 - 95 fL MCH 32.7 (H) 25.6 - 32.2 pg MCHC 33.5 32.2 - 35.5 GM/DL RDW 13.3 11.7 - 14.4 % Platelets 243 140 - 375 K/CU MM MPV 9.8 9.4 - 12.3 fL % Neutros 70 34 - 71 % % Lymphs 19 19 - 52 % % Monos 9 5 - 13 % % Eos 1 1 - 6 % % Baso 0 0 - 1 % NRBC Absolute <0.01 0 - 0.012 K/ul # Neutros 6.19 (H) 1.56 - 6.13 K/??L # Lymphs 1.71 1.18 - 3.74 K/??L # Monos 0.75 0.24 - 0.86 K/??L # Eos 0.10 0.04 - 0.36 K/??L # Baso 0.03 0.01 - 0.08 K/??L Immature Granulocytes-Relative 0.60 (H) 0.01 - 0.43 % # IG 0.05 (H) 0.00 - 0.03 K/uL Comprehensive metabolic panel Status: Abnormal Collection Time: 01/11/25 11:48 AM Result Value Ref Range Sodium 142 136 - 145 meq/L Potassium 4.4 3.4 - 5.1 meq/L Chloride 100 98 - 112 meq/L CO2 31 (H) 22 - 29 meq/L Calcium 10.0 8.4 - 10.2 mg/dL Glucose 125 (H) 74 - 100 mg/dL BUN 46.9 (H) 9.8 - 20.1 mg/dL Creatinine 6.98 (H) 0.57 - 1.11 mg/dL BUN/Creatinine 7 (L) 8 - 20 eGFR (mL/min/1.73m2) 7 (L) >=60 mL/min/1.73m2 Albumin 3.4 (L) 3.5 - 5.0 g/dL Alkaline Phosphatase 175 (H) 40 - 150 U/L ALT 34 <=34 U/L AST 48 (H) 11 - 34 U/L Total Bilirubin 0.4 0.2 - 1.2 mg/dL Protein, Total 7.0 6.4 - 8.3 g/dL Globulin 3.6 2.5 - 4.1 g/dL Anion Gap 15 (H) 4 - 12 A/G Ratio 0.9 0.7 - 1.9 Osmolality Calc 296.8 mOsm/kg Lactic Acid with reflex (SJ) Status: Normal Collection Time: 01/11/25 11:48 AM Result Value Ref Range Lactic Acid Level (mmol/L) 1.2 0.5 - 2.2 mmol/L COVID ANTIGEN Status: Normal Collection Time: 01/11/25 11:48 AM Specimen: Nasal Swab Result Value Ref Range SARS COVID ANTIGEN Negative Negative, Invalid High Sensitivity Troponin I Status: Normal Collection Time: 01/11/25 11:48 AM Result Value Ref Range Troponin I High Sensitivity (pg/mL) <5.0 <=14 pg/mL Magnesium Status: Normal Collection Time: 01/11/25 11:48 AM Result Value Ref Range Magnesium 2.0 1.6 - 2.6 mg/dL ECG 12 lead Status: None (In process) Collection Time: 01/11/25 11:51 AM Result Value Ref Range VENTRICULAR RATE EKG/MIN 102 BPM ATRIAL RATE (MCT) 106 BPM AK Interval 164 ms QRS-INTERVAL (MSEC) 84 ms QT Interval 332 ms QTC Interval 432 ms P [place] 54 degrees R AXIS (MCT) 20 degrees T Wave [place] 44 degrees Friend[place] Diagnosis Age and gender specific ECG analysis Sinus tachycardia Low voltage QRS Borderline ECG When compared with ECG of 21-JUL-2024 08:41, No significant change was found Microbiology Results (last 7 days) Procedure Component Value Units Date/Time COVID ANTIGEN [[id number]] (Normal) Collected: 01/11/25 1148 Order Status: Completed Specimen: Nasal Swab Updated: 01/11/25 1240 SARS COVID ANTIGEN Negative Narrative: The BD Veritor System for Rapid Detection of SARS-CoV-2 does not differentiate between SARS-CoV [id number].The BD Veritor System for Rapid Detection of SARS-CoV-2 is only for in vitro diagnostic use under the Food and Drug Administration's Emergency Use Authorization. This product has not been FDA cleared or approved. Results should be correlated with the clinical history, epidemiological data, and other data available to the clinician evaluating the patient. SARS-CoV-2 viral antigens are generally detectable in anterior nasal swab specimens during the acute phase of infection. Positive results indicate the presence of viral antigens, but clinical correlation with patient history and other diagnostic information is necessary to determine infection status. Negative results are presumptive, do not rule out SARS-CoV-2 infection, and should not be used as the sole basis for treatment or patient management decisions, including infection control measures such as isolating from others and wearing masks. Serial testing should be performed in individuals with negative results at least twice over three days (with 48 hours between tests) for symptomatic individuals. Confirmation with a molecular assay may be necessary if there is a high likelihood of SARS-CoV-2 infection. Blood Culture [[id number]] Collected: 01/11/25 1148 Order Status: Resulted Specimen: Blood Updated: 01/11/25 1156 Blood Culture [[id number]] Collected: 01/11/25 1148 Order Status: Resulted Specimen: Blood Updated: 01/11/25 1156 Radiology: Radiology Results (last 3 days) Procedure Component Value Units Date/Time CT ABDOMEN/PELVIS WITHOUT IV CONTRAST Standard Protocol [[id number]] Resulted: 01/11/25 1549 Order Status: Sent Updated: 01/11/[address] brain without IV contrast [[id number]] Collected: 01/11/25 1431 Order Status: Completed Updated: 01/11/25 1435 Narrative: CT brain without IV contrast HISTORY: Weakness after dialysis FINDINGS: Noncontrast imaging. This study was performed with techniques to keep radiation doses as low as reasonably achievable (ALARA). Individualized dose reduction techniques using automated exposure control or adjustment of mA and/or kV according to the patient's size were employed. There is no significant atrophy. Ventricles are normal in size and shape and are midline. There is no mass effect or edema. There is no CVA or hemorrhage. There are no extra-axial fluid collections. Paranasal sinuses are clear. The calvarium is intact. Impression: Negative. XR chest AP portable [[id number]] Collected: 01/11/25 1233 Order Status: Completed Updated: 01/11/25 1239 Narrative: PORTABLE CHEST 01/11/2025 11:50 AM HISTORY: Septic. COMPARISON: July 2024. FINDINGS: The heart is normal in size . The mediastinum is unremarkable . There is right upper lobe atelectasis. There is no pneumothorax . The osseous structures are unremarkable . There is a left IJ line in good position. Impression: Atelectasis as above. Continued follow-up recommended. Images reviewed, interpreted, and dictated by Dr. Ivanna Sutton. Transcribed by Yessica Huerta PA-C. All Documented Medications: Scheduled Meds: cefTRIAXone 2 g intravenous Once promethazine 12.5 mg intravenous Once vancomycin 2,000 mg intravenous Once Continuous Infusions: Current Facility-Administered Medications Medication Dose Route Frequency Provider Last Rate Last Admin acetaminophen (TYLENOL) tablet 1,000 mg 1,000 mg oral Q6H PRN Olegario Varghese PA-C bisacodyL (DULCOLAX) EC tablet 10 mg 10 mg oral Daily PRN Olegario Varghese PA-C Or bisacodyL (DULCOLAX) suppository 10 mg 10 mg rectal Daily PRN Olegario Varghese PA-C cefTRIAXone (ROCEPHIN) 2 g in sodium chloride 0.9 % (NS) 50 mL BLANCA IVPB 2 g intravenous Once Benedict Fleming MD hydrALAZINE (APRESOLINE) injection 10 mg 10 mg intravenous Q6H PRN Olegario Varghese PA-C HYDROcodone-acetaminophen (NORCO) 5-325 mg per tablet 1 tablet 1 tablet oral Q6H PRN Olegario Varghese PA-C melatonin tablet 3 mg 3 mg oral Every Night PRN Olegario Varghese PA-C ondansetron (ZOFRAN-ODT) disintegrating tablet 4 mg 4 mg oral Q8H PRN Olegario Abimael, PA-C Or ondansetron (ZOFRAN) injection 4 mg 4 mg intravenous Q8H PRN Olegario Varghese PA-C polyethylene glycol (GLYCOLAX) packet 17 g 17 g oral Daily PRN Olegario Varghese PA-C promethazine (PHENERGAN) 12.5 mg in sodium chloride 0.9 % (NS) 50 mL IVPB (Immediate Use Only) 12.5mg intravenous Once Benedict Fleming MD sodium chloride flush 10 mL 10 mL intravenous PRN Benedict Fleming MD vancomycin (VANCOCIN) 2,000 mg in sodium chloride 0.9 % (NS) 500 mL IVPB 2,000 mg intravenous Once Benedict Fleming MD Current Outpatient Medications Medication Sig Dispense Refill acetaminophen (TYLENOL) 500 MG tablet Take 1 tablet (500 mg total) by mouth every 4 (four) hours asneeded for pain. amLODIPine (NORVASC) 10 MG tablet Take 1 tablet (10 mg total) by mouth daily. aspirin 81 MG EC tablet Take 1 tablet (81 mg total) by mouth daily. atorvastatin (LIPITOR) 40 MG tablet Take 1 tablet (40 mg total) by mouth nightly. baclofen (LIORESAL) 10 MG tablet Take 1 tablet (10 mg total) by mouth every night as needed for muscle spasms. calcitonin, salmon, (MIACALCIN) 200 unit/actuation nasal spray [place] 1 spray into one nostril daily. calcium carbonate 600mg (Caltrate) 600 mg calcium (1,500 mg) tab Take 1 tablet (1,500 mg total) by mouth daily. carvediloL (COREG) 12.5 MG tablet Take 1 tablet (12.5 mg total) by mouth 2 (two) times daily. diphenhydrAMINE (BENADRYL) 25 mg tablet Take 1 [...] capsule (300 mg total) by mouth nightly. insulin glargine-yfgn (SEMGLEE) 100 unit/mL soln solution Inject 22 Units subcutaneously 2 (two) times daily. insulin lispro (HUMALOG, ADMELOG) 100 unit/mL injection Inject subcutaneously 3 (three) times dailybefore meals. isosorbide mononitrate (IMDUR) 30 MG 24 hr [...] Take 1 tablet (10 mg total) by mouth. pseudoephedrine (Sudogest) 60 MG tablet Take 1 tablet (60 mg total) by mouth every 6 (six) hours asneeded for congestion. sevelamer (RENAGEL) 800 MG tablet Take 1 tablet (800 mg total) by mouth 3 (three) times daily with meals. sucralfate (CARAFATE) 1 gram tablet Take 1 tablet (1 g total) by mouth 2 (two) times daily. venlafaxine (Effexor XR) 37.5 MG 24 hr capsule Take 1 capsule (37.5 mg total) by mouth daily. Assessment and Plan Principal Problem: Persistent vomiting in adult patient # Persistent nausea and vomiting #End-stage renal disease on dialysis #Other specified complication of vascular implants and grafts #Migraine -No signs of infection at this time. White count 8.8, afebrile. Creatinine 6.98, patient on MWF schedule last dialysis on Thursday. COVID-negative. Chest radiograph negative. Brain CT negative. CT abdomen pelvis pending. Blood cultures obtained. Vanco and Rocephin given prophylactically in the ER. Phe nergan and Zofran given in the ER. - CT abdomen received no acute process at this time. - Discontinue antibiotics at this time given no signs of infection. - Consult nephro Dr. Hein, appreciate assistance - Blood cultures pending - reglan, carafate -zofran, phenergan as needed - Tylenol as needed for MARVIN -Monitor labs - Monitor for fever, hemodynamic stability. - Monitor electrolytes and replace as needed - Consider dialysis on if needed, follow nephrology recommendations # Hypertension - Continue amlodipine - Hydralazine as needed - Labetalol as needed #CAD - Continue statin, Coreg, Imdur # Diabetes mellitus type 2 with neuropathy - Insulin sliding scale #CHF - Echo on 07/19/2024 showed EF 75% #Anxiety depression - Continue Effexor GERD - pepcid # Morbid obesity - Complicates all aspects of care. General orders as follows: -As needed antihypertensives with parenteral hydralazine 10 mg every 6 hrs for BP> 160/100. -As needed antiemetic with parenteral Zofran 4 mg every 8hrs for nausea. -Oral acetaminophen 650 mg every 6hrs for mild pain, Marion 5 mg every 6hrs for moderate/severe pain. -Laboratory work and pertinent imaging results independently reviewed as noted in HPI. -Continue to monitor electrolytes with AM metabolic panel and replete as appropriate. -Monitor WBC count to assess for developing / worsening infection and hemoglobin with AM CBC. -Intermittent BP and pulse oximetry monitoring per unit parameters. -Continue appropriate home medications for chronic problems as ordered below. -After reviewing this patient's presentation, labs, imaging, and medical record and discussion withsupervising physician, we have to decided to admit them. They will require observation requiring <48hrs for work up and stabilization of their condition. - High complexity of medical decision making -Evaluated 01/11/2025, 3:51 PM IOlegario, have personally reviewed pertinent laboratory, EKG, and imaging results, as wellas documentation in the patient's EMR and discussed with supervising physician as necessary. Laboratory and imaging orders per the above plan have been reviewed and addressed, please see orders below. Home medications have been reviewed and restarted if appropriate. Patient's case, assessment, and plan have been discussed on this date with ED provider. Glycemic control: Goal BS between 110-180 with ISS Nutrition: Orders Placed This Encounter Procedures NPO Except: Sips with meds GI prophylaxis: Pepcid VTE prophylaxis: SCDs AM orders including labs/radiology/procedures placed. Code Status: Current Code Status Full code Disposition: Admit Prognosis: TBD Signed: Olegario Varghese PA-C 01/11/2025, 3:51 PM Voice call circuit worker technology ([employer]) is used for dictation of this note and sound-alike words might be erroneously placed despite reviewing the note for accuracy. Errors in dictation mayreflect use of voice recognition software and not all errors in call circuit worker may have been detected prior to signing. Active Orders Lab Magnesium Frequency: PRN Number of Occurrences: Until Specified Order Comments: If Mg less than or equal to 1.7 mg/dL previous day Potassium Frequency: PRN Number of Occurrences: Until Specified Order Comments: If Potassium Level Less than 3.5 mmol/L. Draw 1 hour after replacement and in the AM Urinalysis, Reflex Microscopic and Culture If Indicated - Cath Frequency: STAT Number of Occurrences: 1 Occurrences Diet NPO Except: Sips with meds Frequency: Effective Now Number of Occurrences: Until Specified Nursing Ambulate TID Frequency: Until Discontinued Number of Occurrences: Until Specified Apply sequential compression device Frequency: Until Discontinued Number of Occurrences: Until Specified Intake and Output Frequency: Q Shift Number of Occurrences: Until Specified Measure blood pressure Frequency: Q30 Min Number of Occurrences: Until Specified Notify provider of change in patient condition Frequency: Until Discontinued Number of Occurrences: Until Specified Notify provider per standard parameters Frequency: Until Discontinued Number of Occurrences: Until Specified Telemetry monitoring for Other Indication Frequency: Until Discontinued Number of Occurrences: 48 Hours Vital Signs Frequency: Q4H Number of Occurrences: Until Specified Code Status Full code Frequency: Continuous Number of Occurrences: Until Specified Consult Inpatient consult to Nephrology Frequency: Once Number of Occurrences: 1 Occurrences Respiratory Care Oxygen Therapy -Nasal Cannula Frequency: Continuous Number of Occurrences: Until Specified Admission Initiate observation status Frequency: Once Number of Occurrences: 1 Occurrences Medications acetaminophen (TYLENOL) tablet 1,000 mg Frequency: Q6H PRN Dose: 1,000 mg Route: oral bisacodyL (DULCOLAX) EC tablet 10 mg Linked Order: Or Frequency: Daily PRN Dose: 10 mg Route: oral bisacodyL (DULCOLAX) suppository 10 mg Linked Order: Or Frequency: Daily PRN Dose: 10 mg Route: rectal cefTRIAXone (ROCEPHIN) 2 g in sodium chloride 0.9 % (NS) 50 mL BLANCA IVPB Frequency: Once Dose: 2 g Route: intravenous hydrALAZINE (APRESOLINE) injection 10 mg Frequency: Q6H PRN Dose: 10 mg Route: intravenous HYDROcodone-acetaminophen (NORCO) 5-325 mg per tablet 1 tablet Frequency: Q6H PRN Dose: 1 tablet Route: oral melatonin tablet 3 mg Frequency: Every Night PRN Dose: 3 mg Route: oral ondansetron (ZOFRAN) injection 4 mg Linked Order: Or Frequency: Q8H PRN Dose: 4 mg Route: intravenous ondansetron (ZOFRAN-ODT) disintegrating tablet 4 mg Linked Order: Or Frequency: Q8H PRN Dose: 4 mg Route: oral polyethylene glycol (GLYCOLAX) packet 17 g Frequency: Daily PRN Dose: 17 g Route: oral promethazine (PHENERGAN) 12.5 mg in sodium chloride 0.9 % (NS) 50 mL IVPB (Immediate Use Only) Frequency: Once Dose: 12.5 mg Route: intravenous sodium chloride flush 10 mL Frequency: PRN Dose: 10 mL Route: intravenous vancomycin (VANCOCIN) 2,000 mg in sodium chloride 0.9 % (NS) 500 mL IVPB Frequency: Once Dose: 2,000 mg Route: intravenous Cosigned by Mckenzie Yang DO at 01/12/2025 4:33 PM EDT documented in this encounter Consult Notes * Nataliya Cain MD - 01/11/2025 1:55 PM EDTAssociated Order(s): Inpatient consult to Nephrology Images from the original note were not included. Inpatient consult to Nephrology Consult performed by: Nataliya Cani MD Consult ordered by: Olegario Varghese PA-C HPI: 54 year old female well-known to my practice with a past medical history of end- stage renal diseaseon chronic hemodialysis on a MWF schedule at [facility] in [facility] who presented to [facility] emergency department being a and having nausea, vomiting, and epigastric discomfort as well as generalized weakness. She presented earlier to her dialysis treatment [facility] dialysis clinic but her treatment could not be proceeded due to her illness. Apparently she had a tunneled hemodialysis catheter exchanged a day before this admission as her old dialysis catheter was partially pulled out with some erythema and redness around the old catheter exit site. She is being admitted to [facility] for further evaluation and I was asked to see herto address her end-stage renal disease needs. Patient was seen and evaluated in the emergency department. Allergies: Sulfa (Sulfonamide Antibiotics) and Tylox [Oxycodone-Acetaminophen] Home Medications: Prior to Admission medications Medication Sig Start Date End Date Taking? Authorizing Provider acetaminophen (TYLENOL) 500 MG tablet Take 1 tablet (500 mg total) by mouth every 4 (four) hours asneeded for pain. Historical Provider, amLODIPine (NORVASC) 10 MG tablet Take 1 tablet (10 mg total) by mouth daily. 12/12/22 Historical Provider, aspirin 81 MG EC tablet Take 1 tablet (81 mg total) by mouth daily. 12/01/22 Historical Provider, atorvastatin (LIPITOR) 40 MG tablet Take 1 tablet (40 mg total) by mouth nightly. 12/03/22 HistoricalProviderMD baclofen (LIORESAL) 10 MG tablet Take 1 tablet (10 mg total) by mouth every night as needed for muscle spasms. Historical Provider, calcitonin, salmon, (MIACALCIN) 200 unit/actuation nasal spray [place] 1 spray into one nostril daily. Historical Provider, calcium carbonate 600mg (Caltrate) 600 mg calcium (1,500 mg) tab Take 1 tablet (1,500 mg total) by mouth daily. 04/10/24 Historical Provider, carvediloL (COREG) 12.5 MG tablet Take 1 tablet (12.5 mg total) by mouth 2 (two) times daily. 12/06/22 Historical Provider, diphenhydrAMINE (BENADRYL) 25 mg tablet Take 1 tablet (25 mg total) by mouth 3 (three) times daily as needed for itching. Historical Provider, epoetin gia (Procrit) 20,000 unit/2 mL soln injection Inject 2 mLs (20,000 Units total) under the skin once a week. Historical ProviderMD famotidine (PEPCID) 20 MG tablet Take 1 tablet (20 mg total) by mouth 2 (two) times daily. Historical ProviderMD fexofenadine (DANIELLE) 180 MG tablet Take 1 tablet (180 mg total) by mouth daily. Historical ProviderMD gabapentin (NEURONTIN) 300 MG capsule Take 1 capsule (300 mg total) by mouth nightly. 02/04/24 Billy ProviderMD insulin glargine-yfgn (SEMGLEE) 100 unit/mL soln solution Inject 22 Units subcutaneously 2 (two) times daily. 07/26/24 Loco Cortes MD insulin lispro (HUMALOG, ADMELOG) 100 unit/mL injection Inject subcutaneously 3 (three) times dailybefore meals. Historical ProviderMD isosorbide mononitrate (IMDUR) 30 MG 24 hr tablet Take 1 tablet (30 mg total) by mouth daily. Historical ProviderMD metoclopramide (REGLAN) 10 MG tablet Take 1 tablet (10 mg total) by mouth 3 (three) times daily before meals. Historical ProviderMD ondansetron (ZOFRAN) 4 MG tablet Take 1 tablet (4 mg total) by mouth every 8 (eight) hours as needed for nausea. Historical ProviderMD polyethylene glycol (MIRALAX) 17 gram/dose powder Take 17 g by mouth daily. Historical Provider, prasugreL (EFFIENT) 10 mg tab tablet Take 1 tablet (10 mg total) by mouth. 02/10/24 Historical ProviderMD pseudoephedrine (Sudogest) 60 MG tablet Take 1 tablet (60 mg total) by mouth every 6 (six) hours asneeded for congestion. Historical ProviderMD sevelamer (RENAGEL) 800 MG tablet Take 1 tablet (800 mg total) by mouth 3 (three) times daily with meals. Historical ProviderMD sucralfate (CARAFATE) 1 gram tablet Take 1 tablet (1 g total) by mouth 2 (two) times daily. Historical ProviderMD venlafaxine (Effexor XR) 37.5 MG 24 hr capsule Take 1 capsule (37.5 mg total) by mouth daily. Historical ProviderMD Current Medications: Current Facility-Administered Medications: ??? acetaminophen (TYLENOL) tablet 1,000 mg, 1,000 mg, oral, Q6H PRN, Olegario Varghese PA-C ??? amLODIPine (NORVASC) tablet 10 mg, 10 mg, oral, Daily, Olegario Varghese PA-C, 10 mg at 01/12/2534 ??? aspirin EC tablet 81 mg, 81 mg, oral, Daily, Olegario Varghese PA-C, 81 mg at 01/12/2534 ??? atorvastatin (LIPITOR) tablet 40 mg, 40 mg, oral, Every Night, Olegario Varghese PA-C, 40 mg at 01/12/25 0014 ??? bisacodyL (DULCOLAX) EC tablet 10 mg, 10 mg, oral, Daily PRN OR bisacodyL (DULCOLAX) suppository 10 mg, 10 mg, rectal, Daily PRN, Olegario Varghese PA-C ??? calcitonin (salmon) (MIACALCIN) nasal spray 1 spray, 1 spray, one nostril, Daily, Olegario Varghese PA-C, 1 spray at 01/11/25 1802 ??? calcium carbonate (OS-JERRELL) tablet 1250 mg (elemental calcium 500 mg), 1,500 mg, oral, Daily, Olegario Varghese PA-C, 1,500 mg at 01/12/2534 ??? carvediloL (COREG) tablet 12.5 mg, 12.5 mg, oral, BID, Olegario Varghese PA-C, 12.5 mg at 01/12/2533 ??? dextrose 50% (D50W) injection 25 g, 25 g, intravenous, Q15 Min PRN, Olegario Varghese PA-C ??? diphenhydrAMINE (BENADRYL) capsule 25 mg, 25 mg, oral, TID PRN, Olegario Varghese PA-C ??? famotidine (PEPCID) tablet 20 mg, 20 mg, oral, BID, Olegario Varghese PA-C, 20 mg at 01/12/2533 ??? gabapentin (NEURONTIN) capsule 300 mg, 300 mg, oral, Every Night, Olegario Varghese PA-C, 300 mg at 01/12/25 0014 ??? glucagon injection 1 mg, 1 mg, intraMUSCULAR, Q15 Min PRN, Olegario Varghese PA-C ??? glucose chew tab 16 g, 16 g, oral, Q15 Min PRN, Olegario Varghese PA-C ??? hydrALAZINE (APRESOLINE) injection 10 mg, 10 mg, intravenous, Q6H PRN, Olegario Varghese PA-C ??? HYDROcodone-acetaminophen (NORCO) 5-325 mg per tablet 1 tablet, 1 tablet, oral, Q6H PRN, SHERLY Young, 1 tablet at 01/12/25 0934 ??? insulin lispro (HUMALOG, ADMELOG) injection 0-6 Units, 0-6 Units, subcutaneous, 4x Daily AC, Olegario Varghese PA-C ??? isosorbide mononitrate (IMDUR) 24 hr tablet 30 mg, 30 mg, oral, Daily, Olegario Varghese PA-C, 30mg at 01/12/25 0933 ??? labetaloL (TRANDATE, NORMODYNE) injection 10 mg, 10 mg, intravenous, Q4H PRN, Olegario Varghese PA-C ??? melatonin tablet 3 mg, 3 mg, oral, Every Night PRN, Olegario Varghese PA-C ??? metoclopramide (REGLAN) tablet 10 mg, 10 mg, oral, TID AC, Olegario Varghese PA-C, 10 mg at 01/12/25 0934 ??? ondansetron (ZOFRAN) injection 8 mg, 8 mg, intravenous, Q8H PRN, Olegario Varghese PA-C ??? polyethylene glycol (GLYCOLAX) packet 17 g, 17 g, oral, Daily PRN, Olegario Varghese PA-C ??? prasugreL HCl (EFFIENT) tablet 10 mg, 10 mg, oral, Daily, Olegario Varghese PA-C, 10 mg at 01/11/25 1801 ??? promethazine (PHENERGAN) 12.5 mg in sodium chloride 0.9 % (NS) 50 mL IVPB (Immediate Use Only),12.5 mg, intravenous, Q6H PRN, Olegario Varghese PA-C ??? sevelamer (RENAGEL) tablet 800 mg, 800 mg, oral, TID with meals, Olegario Varghese PA-C, 800 mg at 01/11/25 1800 ??? sodium chloride flush 10 mL, 10 mL, intravenous, PRN, Benedict Fleming MD ??? sucralfate (CARAFATE) tablet 1 g, 1 g, oral, BID, Olegario Varghese PA-C, 1 g at 01/12/25 0933 ??? venlafaxine XR (EFFEXOR-XR) 24 hr capsule 37.5 mg, 37.5 mg, oral, Daily, Olegario Varghese PA-C, 37.5 mg at 01/12/25 0933 Review of Systems Constitutional: Positive for fatigue. HENT: Negative. Eyes: Negative. Respiratory: Negative. Cardiovascular: Negative. Gastrointestinal: Positive for abdominal pain, nausea and vomiting. Endocrine: Negative. Genitourinary: Negative. Musculoskeletal: Negative. Skin: Negative. Allergic/Immunologic: Negative. Neurological: Negative. Hematological: Negative. Psychiatric/Behavioral: Negative. All other systems reviewed and are negative. Vitals Blood pressure 129/71, pulse 90, temperature 98 ??F (36.7 ??C), temperature source Oral, resp. rate16, height 1.676 m (5' 6 ), weight 121.6 kg (268 lb), SpO2 97%. Physical Exam Vitals and nursing note reviewed. Constitutional: Appearance: Normal appearance. She is normal weight. HENT: Head: Normocephalic and atraumatic. Nose: Nose normal. Mouth/Throat: Pharynx: Oropharynx is clear. Eyes: Extraocular Movements: Extraocular movements intact. Conjunctiva/sclera: Conjunctivae normal. Pupils: Pupils are equal, round, and reactive to light. Cardiovascular: Rate and Rhythm: Normal rate. Rhythm irregular. Pulses: Normal pulses. Heart sounds: Normal heart sounds. Pulmonary: Effort: Pulmonary effort is normal. Breath sounds: Normal breath sounds. Abdominal: General: Abdomen is flat. Bowel sounds are normal. Palpations: Abdomen is soft. Tenderness: There is abdominal tenderness (epigastric). Musculoskeletal: General: Deformity (Left BKA.) present. Normal range of motion. Cervical back: Normal range of motion and neck supple. Right lower leg: Edema present. Skin: General: Skin is warm and dry. Neurological: General: No focal deficit present. Mental Status: She is alert and oriented to person, place, and time. Mental status is at baseline. Psychiatric: Mood and Affect: Mood normal. Behavior: Behavior normal. Thought Content: Thought content normal. Judgment: Judgment normal. Labs: Recent Results (from the past 72 hours) Chem8+ POC Collection Time: 01/10/25 1:13 PM Result Value Ref Range POC Sodium 142 138 - 146 mmol/L POC Potassium 4.8 3.5 - 4.9 mmol/L POC Chloride 97 (L) 98 - 109 mmol/L POC Glucose 138 (H) 70 - 105 mg/dL POC BUN 47 (H) 8 - 26 mg/dL POC Anion Gap 14 10 - 20 mmol/L POC IONIZED CALCIUM BENJI 1.18 1.12 - 1.32 mmol/L POC CO2 TOTAL BENJI 36 (H) 24 - 29 mmol/L POC-Creatinine 6.3 (H) 0.6 - 1.3 mg/dL POC-EGFR 7 mL/min/1.73M2 POC HEMATOCRIT BENJI 32 (L) 38 - 51 %PCV POC HEMOGLOBIN BENJI 10.9 (L) 12.0 - 17.0 g/dL POCT , urine Collection Time: 01/10/25 1:16 PM Result Value Ref Range POC, URINE HCG Negative Negative INTERNAL QC (VALID/INVALID) Valid Kit Lot Number [id number] Expiration Date 2026-05-31 Glucose, Nova Meter Collection Time: 01/10/25 4:39 PM Result Value Ref Range POC-GLUCOSE 112 (H) 70 - 110 mg/dL Certified Ophthalmic Surgical Assistant [id number] CBC with automated diff Collection Time: 01/11/25 11:48 AM Result Value Ref Range WBC 8.8 4.0 - 10.0 K/??L RBC 3.39 (L) 3.93 - 5.22 M/??L Hemoglobin 11.1 (L) 11.2 - 15.7 GM/DL Hematocrit 33.1 (L) 34.1 - 44.9 % MCV 98 (H) 79 - 95 fL MCH 32.7 (H) 25.6 - 32.2 pg MCHC 33.5 32.2 - 35.5 GM/DL RDW 13.3 11.7 - 14.4 % Platelets 243 140 - 375 K/CU MM MPV 9.8 9.4 - 12.3 fL % Neutros 70 34 - 71 % % Lymphs 19 19 - 52 % % Monos 9 5 - 13 % % Eos 1 1 - 6 % % Baso 0 0 - 1 % NRBC Absolute <0.01 0 - 0.012 K/ul # Neutros 6.19 (H) 1.56 - 6.13 K/??L # Lymphs 1.71 1.18 - 3.74 K/??L # Monos 0.75 0.24 - 0.86 K/??L # Eos 0.10 0.04 - 0.36 K/??L # Baso 0.03 0.01 - 0.08 K/??L Immature Granulocytes-Relative 0.60 (H) 0.01 - 0.43 % # IG 0.05 (H) 0.00 - 0.03 K/uL Comprehensive metabolic panel Collection Time: 01/11/25 11:48 AM Result Value Ref Range Sodium 142 136 - 145 meq/L Potassium 4.4 3.4 - 5.1 meq/L Chloride 100 98 - 112 meq/L CO2 31 (H) 22 - 29 meq/L Calcium 10.0 8.4 - 10.2 mg/dL Glucose 125 (H) 74 - 100 mg/dL BUN 46.9 (H) 9.8 - 20.1 mg/dL Creatinine 6.98 (H) 0.57 - 1.11 mg/dL BUN/Creatinine 7 (L) 8 - 20 eGFR (mL/min/1.73m2) 7 (L) >=60 mL/min/1.73m2 Albumin 3.4 (L) 3.5 - 5.0 g/dL Alkaline Phosphatase 175 (H) 40 - 150 U/L ALT 34 <=34 U/L AST 48 (H) 11 - 34 U/L Total Bilirubin 0.4 0.2 - 1.2 mg/dL Protein, Total 7.0 6.4 - 8.3 g/dL Globulin 3.6 2.5 - 4.1 g/dL Anion Gap 15 (H) 4 - 12 A/G Ratio 0.9 0.7 - 1.9 Osmolality Calc 296.8 mOsm/kg Lactic Acid with reflex (SJ) Collection Time: 01/11/25 11:48 AM Result Value Ref Range Lactic Acid Level (mmol/L) 1.2 0.5 - 2.2 mmol/L COVID ANTIGEN Collection Time: 01/11/25 11:48 AM Specimen: Nasal Swab Result Value Ref Range SARS COVID ANTIGEN Negative Negative, Invalid High Sensitivity Troponin I Collection Time: 01/11/25 11:48 AM Result Value Ref Range Troponin I High Sensitivity (pg/mL) <5.0 <=14 pg/mL Magnesium Collection Time: 01/11/25 11:48 AM Result Value Ref Range Magnesium 2.0 1.6 - 2.6 mg/dL ECG 12 lead Collection Time: 01/11/25 11:51 AM Result Value Ref Range VENTRICULAR RATE EKG/MIN 102 BPM ATRIAL RATE (MCT) 106 BPM AK Interval 164 ms QRS-INTERVAL (MSEC) 84 ms QT Interval 332 ms QTC Interval 432 ms P [place] 54 degrees R AXIS (MCT) 20 degrees T Wave [place] 44 degrees Friend[place] Diagnosis Age and gender specific ECG analysis Sinus tachycardia Low voltage QRS Borderline ECG When compared with ECG of 21-JUL-2024 08:41, No significant change was found Glucose, Nova Meter Collection Time: 01/11/25 6:12 PM Result Value Ref Range POC-GLUCOSE 116 (H) 70 - 110 mg/dL Certified Ophthalmic Surgical Assistant [id number] Glucose, Nova Meter Collection Time: 01/11/25 8:56 PM Result Value Ref Range POC-GLUCOSE 103 70 - 110 mg/dL Certified Ophthalmic Surgical Assistant [id number] Glucose, Nova Meter Collection Time: 01/12/25 5:35 AM Result Value Ref Range POC-GLUCOSE 103 70 - 110 mg/dL Certified Ophthalmic Surgical Assistant [id number] Imaging: CT ABDOMEN/PELVIS WITHOUT IV CONTRAST Standard Protocol Result Date: 01/11/2025 CT SCAN OF THE ABDOMEN AND PELVIS WITHOUT CONTRAST 01/11/2025 3:49 PM HISTORY: Acute epigastric painCOMPARISON: April 2019 PROCEDURE: Axial images were obtained from the lung bases to the pubic symphysis by computed tomography. This study was performed with techniques to keep radiation doses aslow as reasonably achievable, (ALARA). Individualized dose reduction techniques using automated exposure control or adjustment of mA and/or kV according to the patient size were employed. FINDINGS: ABDOMEN: There is mild bibasilar atelectasis. There is a ventral hernia in the upper abdomen containing omental fat. The liver is fatty infiltrated and somewhat heterogeneous. The gallbladder is absent. The spleen is prominent. There is perinephric stranding bilaterally. There is no hydronephrosis ornephrolithiasis. The right adrenal is minimally calcified. The solid organs are otherwise unremarkable. There is no free fluid or adenopathy. There is a small umbilical hernia containing omental fat.PELVIS: The urinary bladder is distended. The uterus is deviated to the left. An IUD is noted within the uterus. The appendix is not identified. There is no free fluid or adenopathy. No acute process. CT brain without IV contrast Result Date: 01/11/2025 CT brain without IV contrast HISTORY: Weakness after dialysis FINDINGS: Noncontrast imaging. This study was performed with techniques to keep radiation doses as low as reasonably achievable (ALARA). Individualized dose reduction techniques using automated exposure control or adjustment of mA and/orkV according to the patient's size were employed. There is no significant atrophy. Ventricles are normal in size and shape and are midline. There is no mass effect or edema. There is no CVA or hemorrhage. There are no extra-axial fluid collections. Paranasal sinuses are clear. The calvarium is intact. Negative. XR chest AP portable Result Date: 01/11/2025 PORTABLE CHEST 01/11/2025 11:50 AM HISTORY: Septic. COMPARISON: July 2024. FINDINGS: The heart is normal in size . The mediastinum is unremarkable . There is right upper lobe atelectasis. There isno pneumothorax . The osseous structures are unremarkable . There is a left IJ line in good position. Atelectasis as above. Continued follow-up recommended. Images reviewed, interpreted, and dictated by Dr. Ivanna Sutton. Transcribed by Yessica Huerta PA-C. Assessment: #1 end-stage renal disease on chronic hemodialysis MWF #2 h/o cardiac arrest. #3 Anemia of chronic kidney disease #4 essential hypertension #5 type 2 diabetes mellitus #6 underlying multi-vessel coronary artery disease #7 peripheral vascular disease status post left AKA Plan: HD in AM the resume MWF schedule. Erythropoietin stimulating agent and IV Iron targeting Hb 10-11 g/dl. Continue her diabetic meds.Monitor renal function electrolytes and acid-base base status statusclosely. Avoidance of nephrotoxic agents and renal dosing of meds. Further management of other medical problems as per primary service and orthopedic surgery. Thank you for this interesting consultation and please do not hesitate to contact me with any question regarding this case. Electronically signed by Nataliya Cain MD 01/12/2025 at 9:55 AM EDT documented in this encounter ED Notes * Benedict Fleming MD - 01/11/2025 11:40 AM EDT History Chief Complaint Patient presents with Generalized Weakness, Not Associated With Extremities HPI The patient is a 54-year-old female. She does have a history of end-stage renal disease on hemodialysis Thursday. She did undergo creation of right upper extremity fistula yesterday aswell as placement of the left-sided dialysis catheter. She went to the dialysis center today for her normal dialysis and states she had nausea and vomiting prior to being dialyzed. They called ambulance and she was transported here. Her last dialysis was2 days ago. She reports that she has had several days of nausea and vomiting. No fever no chills. No abdominal pain. She does report a headache at this time. No focal motor or sensory deficits current ly Allergies Allergen Reactions Sulfa (Sulfonamide Antibiotics) Tylox [Oxycodone-Acetaminophen] Nausea Only Pt states she can tolerate hydrocodone (verified 12/19/22) Past Medical History: Diagnosis Date C. difficile colitis Cardiac arrest ([facility]) 07/19/2024 CHF (congestive heart failure) ([facility]) 01/19/2024 Chronic kidney disease Coronary artery disease-heart stents x 2 2019 CTS (carpal tunnel syndrome)left Depression Diabetes mellitus ([facility]) ESRD (end stage renal disease) on dialysis ([facility]) Hyperlipidemia, unspecified 10/06/2022 Hypertension Kidney failure Obstructive sleep apnea Osteomyelitis ([facility]) resolved Peripheral vascular disease due to secondary diabetes ([facility]) Post-menopausal Wound of right foot wrapped Past Surgical History: Procedure Laterality Date AMPUTATION,TOE Right BELOW KNEE LEG AMPUTATION Left toes first then debridement CARPAL TUNNEL RELEASE Right CREATION,A-V FISTULA Right 01/10/2025 Procedure: LEFT IJ tunneled catheter exchanged RIGHT brachiocephalic arteriovenous fistula creation; Surgeon: Baljinder Sloan MD; Location[facility] OR; Service: Vascular Surgery; Laterality: Right; CREATION,PERICARDIAL WINDOW N/A 12/19/2022 Procedure: CREATION, PERICARDIAL WINDOW; Surgeon: Bogdan Hernandez IV, MD; Location: [facility] OR; Service: CV Surgery; Laterality: N/A; AO#3, AVAIL TF, 3HR(A) GALLBLADDER SURGERY heart stents INSERTION,DIALYSIS CATHETER KNEE ARTHROSCOPY Right ORIF,FEMUR Left 08/10/2023 Procedure: ORIF LT FEMUR); Surgeon: Otf Birmingham MD; Location: [facility] OR; Service: OrthopaedicSurgery; Laterality: Left; AO# 4, AVAIL TF melvi left hip TONSILLECTOMY TRANSPOSITION,VEIN Left 04/20/2023 Procedure: (LT UPPER EXTREMITY AV FISTULA); Surgeon: Baljinder Sloan MD; Location: [facility] OR; Service: Vascular; Laterality: Left; IN 0600, 1 HR (R) No family history on file. Social History Socioeconomic History Marital status: Single Tobacco Use Smoking status: Some Days Types: Cigarettes Smokeless tobacco: Former Tobacco comments: Vap daily Substance and Sexual Activity Alcohol use: Not Currently Drug use: Not Currently Types: Marijuana Comment: yrs ago Social Drivers of Health Transportation Needs: Unknown (12/18/2022) PRAPARE - Transportation Lack of Transportation (Medical): Patient declined Family and Community Support Received from [facility], [facility] Abuse Screen Housing Stability: Low Risk (10/21/2023) Housing Stability Recent Concern: Housing Stability - High Risk (10/19/2023) Housing Stability Review of Systems Vital Signs Patient Vitals for the past 24 hrs: BP Temp Temp src Pulse Resp SpO2 Height Weight 01/11/25 1505 (!) 175/79 -- -- 86 -- 95 % -- -- 01/11/25 1450 (!) 159/70 -- -- 84 -- 93 % -- -- 01/11/25 1435 (!) 148/66 -- -- 104 -- 94 % -- -- 01/11/25 1350 (!) 211/84 -- -- 102 -- 97 % -- -- 01/11/25 1315 (!) 148/67 -- -- 100 -- 96 % -- -- 01/11/25 1305 (!) 233/107 -- -- 100 20 95 % -- -- 01/11/25 1250 (!) 218/93 -- -- 102 -- 94 % -- -- 01/11/25 1230 (!) 206/87 -- -- 102 -- 94 % -- -- 01/11/25 1200 (!) 190/83 -- -- 102 -- 98 % -- -- 01/11/25 1129 (!) 176/79 98.8 ??F (37.1 ??C) Oral 111 18 91 % 1.676 m (5' 6 ) 121.6 kg (268 lb) Physical Exam Physical exam: General: Awake alert oriented. Nontoxic-appearing HEENT: Normocephalic, atraumatic. Pupils are equal round responsive to light bilaterally. Nasopharynx is clear. Oropharynx is clear with moist mucous membranes. No evidence of abscess or exudate. Neck: Supple, no elevation of JVD at this time Heart: Rate slightly tachycardic and regular. There is tense pretibial edema in the right lower extremity which patient states is chronic. Patient is status post left BKA. Lungs: Breath sounds are equal bilaterally. Clear to auscultation bilaterally. No wheezes or stridor noted Abdomen: Very soft nondistended nontender has 4 quadrants Back: No CVA tenderness Neurological: Awake alert and oriented x 4. Strength and tone x 4 extremities. Sensation intact x 4extremities. Gait intact. Nonfocal EXTREMITIES: Status post left BKA, right lower extremity is noted to have tense edema. She moves all 4 extremities with good strength and tone at this time Skin: There are changes of chronic venous congestion right lower extremity ED Course ED Course as of 01/11/25 1546 Wed Jan 11, 2025 1159 EKG interpreted by myself at 1151 reveals sinus tachycardia rate of 102. Normal QTc, normal axis. No acute ischemic changes noted, no STEMI [TC] 1319 Personal interpretation of chest x-ray reveals no acute cardiopulmonary abnormality [TC] [address] brain without contrast reveals no acute intracranial abnormality[TC] 1538 I did discuss the patient 's care with Dr.s Cain and Celia. Will cover for bacteremia, add ct abd/pelvis without, admit . [TC] 1545 Critical Care: I have personally provided 40 minutes of critical care time exclusive of time spent on separately billable procedures. Time includes review of laboratory data, radiology results, discussion with consultants, and monitoring for potential decompensation. Interventions were performed as documented above. [TC] ED Course User Index [TC] Benedict Fleming MD Medications sodium chloride flush 10 mL (has no administration in time range) promethazine (PHENERGAN) 12.5 mg in sodium chloride 0.9 % (NS) 50 mL IVPB (Immediate Use Only) (hasno administration in time range) cefTRIAXone (ROCEPHIN) 2 g in sodium chloride 0.9 % (NS) 50 mL BLANCA IVPB (has no administration in time range) vancomycin (VANCOCIN) 2,000 mg in sodium chloride 0.9 % (NS) 500 mL IVPB (has no administration in time range) ondansetron (ZOFRAN) injection 4 mg (4 mg intravenous Given 01/11/25 1130) hydrALAZINE (APRESOLINE) injection 20 mg (20 mg intravenous Given 01/11/25 1310) labetaloL (TRANDATE, NORMODYNE) injection 20 mg (20 mg intravenous Given 01/11/25 1416) Labs Reviewed CBC W/ AUTO DIFF - Abnormal; Notable for the following components: Result Value RBC 3.39 (*) Hemoglobin 11.1 (*) Hematocrit 33.1 (*) MCV 98 (*) MCH 32.7 (*) # Neutros 6.19 (*) Immature Granulocytes-Relative 0.60 (*) # IG 0.05 (*) All other components within normal limits Narrative: When CBC w/ Auto Diff is ordered the lab will add a Manual Differential as a quality check at no additional charge if: Lymphocytes greater than seventy five percent with normal or increased WBC Monocytes greater than Fifteen percent Basophil greater than four percent Bands >10% or several immature myeloids are seen on scan Blast? Flag noted Atypical Lymph flag noted COMPREHENSIVE METABOLIC PANEL - Abnormal; Notable for the following components: CO2 31 (*) Glucose 125 (*) BUN 46.9 (*) Creatinine 6.98 (*) BUN/Creatinine 7 (*) eGFR (mL/min/1.73m2) 7 (*) Albumin 3.4 (*) Alkaline Phosphatase 175 (*) AST 48 (*) Anion Gap 15 (*) All other components within normal limits COVID ANTIGEN - Normal Narrative: The BD Veritor System for Rapid Detection of SARS-CoV-2 does not differentiate between SARS-CoV [id number].The BD Veritor System for Rapid Detection of SARS-CoV-2 is only for in vitro diagnostic use under the Food and Drug Administration's Emergency Use Authorization. This product has not been FDA cleared or approved. Results should be correlated with the clinical history, epidemiological data, and other data available to the clinician evaluating the patient. SARS-CoV-2 viral antigens are generally detectable in anterior nasal swab specimens during the acute phase of infection. Positive results indicate the presence of viral antigens, but clinical correlation with patient history and other diagnostic information is necessary to determine infection status. Negative results are presumptive, do not rule out SARS-CoV-2 infection, and should not be used as the sole basis for treatment or patient management decisions, including infection control measures such as isolating from others and wearing masks. Serial testing should be performed in individuals with negative results at least twice over three days (with 48 hours between tests) for symptomatic individuals. Confirmation with a molecular assay may be necessary if there is a high likelihood of SARS-CoV-2 infection. LACTIC ACID WITH REFLEX - Normal Narrative: Specimen slightly hemolyzed HIGH SENSITIVITY TROPONIN I - Normal Narrative: Applicable to [facility] only. Effective October 25 the lab will begin using a new chemistry analyzer. HsTroponin methodology, reference ranges and critical values have changed. MAGNESIUM - Normal BLOOD CULTURE BLOOD CULTURE URINALYSIS, REFLEX MICROSCOPIC AND CULTURE IF INDICATED Procedures MDM Amount and/or Complexity of Data Reviewed Clinical lab tests: reviewed Tests in the radiology section of CPT??: reviewed Tests in the medicine section of CPT??: reviewed MEDICAL DECISION MAKING Number and Complexity of Problems Differential Diagnosis: including but not limited to bacteremia, electrolyte abnormality, intracranial abnormality, small bowel obstruction, chronic renal failure MDM Data (x) External documents reviewed: Old chart reviewed (x) EKG interpretation: noted on chart if performed (x) Radiology interpretation, if performed, including but not limited to CT, xray, ultrasound: Chest x-ray, CT head without ([]) Tests considered but not ordered: [ ] ([]) Decision rules/scores evaluated: [ ] (x) Discussed with: Evan Cain and Celia (x) Labs obtained and reviewed: Labs Reviewed CBC W/ AUTO DIFF - Abnormal; Notable for the following components: Result Value RBC 3.39 (*) Hemoglobin 11.1 (*) Hematocrit 33.1 (*) MCV 98 (*) MCH 32.7 (*) # Neutros 6.19 (*) Immature Granulocytes-Relative 0.60 (*) # IG 0.05 (*) All other components within normal limits Narrative: When CBC w/ Auto Diff is ordered the lab will add a Manual Differential as a quality check at no additional charge if: Lymphocytes greater than seventy five percent with normal or increased WBC Monocytes greater than Fifteen percent Basophil greater than four percent Bands >10% or several immature myeloids are seen on scan Blast? Flag noted Atypical Lymph flag noted COMPREHENSIVE METABOLIC PANEL - Abnormal; Notable for the following components: CO2 31 (*) Glucose 125 (*) BUN 46.9 (*) Creatinine 6.98 (*) BUN/Creatinine 7 (*) eGFR (mL/min/1.73m2) 7 (*) Albumin 3.4 (*) Alkaline Phosphatase 175 (*) AST 48 (*) Anion Gap 15 (*) All other components within normal limits COVID ANTIGEN - Normal Narrative: The BD Veritor System for Rapid Detection of SARS-CoV-2 does not differentiate between SARS-CoV [id number].The BD Veritor System for Rapid Detection of SARS-CoV-2 is only for in vitro diagnostic use under the Food and Drug Administration's Emergency Use Authorization. This product has not been FDA cleared or approved. Results should be correlated with the clinical history, epidemiological data, and other data available to the clinician evaluating the patient. SARS-CoV-2 viral antigens are generally detectable in anterior nasal swab specimens during the acute phase of infection. Positive results indicate the presence of viral antigens, but clinical correlation with patient history and other diagnostic information is necessary to determine infection status. Negative results are presumptive, do not rule out SARS-CoV-2 infection, and should not be used as the sole basis for treatment or patient management decisions, including infection control measures such as isolating from others and wearing masks. Serial testing should be performed in individuals with negative results at least twice over three days (with 48 hours between tests) for symptomatic individuals. Confirmation with a molecular assay may be necessary if there is a high likelihood of SARS-CoV-2 infection. LACTIC ACID WITH REFLEX - Normal Narrative: Specimen slightly hemolyzed HIGH SENSITIVITY TROPONIN I - Normal Narrative: Applicable to [facility] only. Effective October 25 the lab will begin using a new chemistry analyzer. HsTroponin methodology, reference ranges and critical values have changed. MAGNESIUM - Normal BLOOD CULTURE BLOOD CULTURE URINALYSIS, REFLEX MICROSCOPIC AND CULTURE IF INDICATED Treatment and Disposition ED Course: [ Upon presentation IV was established. Appropriate labs were obtained. CT head was obtained and noted to have no acute intercranial normality. Chest x-ray revealed no significant fluid overload at this time. No infiltrate. Because of potential bacteremia, I did cover her with vancomycinand Rocephin. Will obtain CT abdomen pelvis without contrast as well. I did discuss the case with both nephrology as well as internal medicine. Will admit to [facility] with telemetry. The following medications were given in the emergency department: Medications sodium chloride flush 10 mL (has no administration in time range) promethazine (PHENERGAN) 12.5 mg in sodium chloride 0.9 % (NS) 50 mL IVPB (Immediate Use Only) (hasno administration in time range) cefTRIAXone (ROCEPHIN) 2 g in sodium chloride 0.9 % (NS) 50 mL BLANCA IVPB (has no administration in time range) vancomycin (VANCOCIN) 2,000 mg in sodium chloride 0.9 % (NS) 500 mL IVPB (has no administration in time range) ondansetron (ZOFRAN) injection 4 mg (4 mg intravenous Given 01/11/25 1130) hydrALAZINE (APRESOLINE) injection 20 mg (20 mg intravenous Given 01/11/25 1310) labetaloL (TRANDATE, NORMODYNE) injection 20 mg (20 mg intravenous Given 01/11/25 1416) ] Social Determinants of Health that impact treatment or disposition: [pt has no adverse social determinants that impact treatment or disposition.] Shared decision making: Treatment plan and return precautions (if applicable) discussed with the patient Prescription Drug Management: [ ] Code status and discussion: [patient is currently a full code status] Clinical Impression Clinical Impression Diagnosis Comment Added By Time Added Generalized weakness Benedict Fleming MD 01/11/2025 3:45 PM Primary hypertension Benedict Fleming MD 01/11/2025 3:46 PM Nausea and vomiting, unspecified vomiting type Benedict Fleming MD 01/11/2025 3:46 PM Chronic renal failure, unspecified CKD stage Benedict Fleming MD 01/11/2025 3:46 PM Disposition Admit [3] - 01/11/2025 3:45 PM Discharge Medications New Prescriptions No medications on file Plan EMR Dragon/Lasting 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 Electronic call circuit worker of spoken language may permit erroneous, or at times, nonsensical words or phrases to be inadvertently transcribed. Although I have reviewed the note for such errors, some may still exist. Electronically Signed By Benedict Fleming MD 01/11/25 1546 * Laisha Greer RN - 01/11/2025 11:35 AM EDT Bed: ED27 Expected date: Expected time: Means of arrival: Comments: [facility] Laisha Greer 01/11/25 1135 * Amirah Avitia RN - 01/11/2025 11:28 AM EDT Pt brought in via ems from dialysis. Pt c/o generalized weakness and emesis since yesterday. Statesshe had new dialysis access placed yesterday Pt did not receive dialysis today. documented in this encounter Miscellaneous Notes * Plan of Care - Yvonne Hawk RN - 01/13/2025 3:31 PM EDT Problem: Pain Goal: Patient's pain/discomfort is manageable Description: Assess and monitor patient's pain using appropriate pain scale. Collaborate with interdisciplinary team and initiate plan and interventions as ordered. Re-assess patient's pain level after pain management intervention. Outcome: Progressing Problem: Safety Goal: Patient will be injury free during hospitalization Description: Assess and monitor vitals signs, neurological status including level of consciousness and orientation. Assess patient's risk for falls and implement fall prevention plan of care and interventions per hospital policy. Ensure arm band on, uncluttered walking paths in room, adequate room lighting, call light and overbed table within reach, bed in low position, wheels locked, side rails up per policy, and non-skid footwear provided. Outcome: Progressing Problem: Daily Care Goal: Daily care needs are met Description: Assess and monitor ability to perform self care and identify potential discharge needs. Outcome: Progressing * Plan of Care - Neal Narayan RN - 01/12/2025 9:30 PM EDT Problem: Pain Goal: Patient's pain/discomfort is manageable Description: Assess and monitor patient's pain using appropriate pain scale. Collaborate with interdisciplinary team and initiate plan and interventions as ordered. Re-assess patient's pain level after pain management intervention. Outcome: Progressing Problem: Safety Goal: Patient will be injury free during hospitalization Description: Assess and monitor vitals signs, neurological status including level of consciousness and orientation. Assess patient's risk for falls and implement fall prevention plan of care and interventions per hospital policy. Ensure arm band on, uncluttered walking paths in room, adequate room lighting, call light and overbed table within reach, bed in low position, wheels locked, side rails up per policy, and non-skid footwear provided. Outcome: Progressing Problem: Daily Care Goal: Daily care needs are met Description: Assess and monitor ability to perform self care and identify potential discharge needs. Outcome: Progressing * Plan of Care - Neal Narayan RN - 01/12/2025 6:08 AM EDT Problem: Daily Care Goal: Daily care needs are met Description: Assess and monitor ability to perform self care and identify potential discharge needs. Intervention: Assess skin integrity/risk for skin breakdown and implement skin integrity plan of care and interventions per policy Recent Flowsheet Documentation Taken 01/12/2025 0500 by Neal Narayan RN Mobility Interventions: Consider PT/OT consult Activity Interventions: Consider PT/OT consult Sensory Perceptions: 4 Moisture: 4 Activity: 3 Mobility: 2 Nutrition: 3 Friction and Shear: 3 Jamel Scale Score: 19 Intervention: Assist with ADLs as needed Recent Flowsheet Documentation Taken 01/12/2025 0548 by Neal Narayan RN Dressing: Independent Grooming: Independent Feeding: Independent Bathing: Independent Toileting: Independent In/Out Bed: Needs assistance documented in this encounter Plan of Treatment Not on file documented as of this encounter Procedures Procedure Name Priority Date/Time Associated Diagnosis Comments NOVA GLUCOSE POC Routine 01/14/2025 10:4 7 AM EDT CBC W/ AUTO DIFF Routine 01/14/2025 6:15 AM EDT MAGNESIUM Routine 01/14/2025 6:14 AM EDT COMPREHENSIVE METABOLIC PANEL Routine 01/14/2025 6:14 AM EDT NOVA GLUCOSE POC Routine 01/14/2025 5:51 AM EDT NOVA GLUCOSE POC Routine 01/13/2025 8:09 PM EDT NOVA GLUCOSE POC Routine 01/13/2025 11:0 7 AM EDT CBC W/ AUTO DIFF Routine 01/13/2025 9:53 AM EDT PHOSPHORUS Routine 01/13/2025 9:53 AM EDT MAGNESIUM Routine 01/13/2025 9:53 AM EDT COMPREHENSIVE METABOLIC PANEL Routine 01/13/2025 9:53 AM EDT NOVA GLUCOSE POC Routine 01/13/2025 5:54 AM EDT NOVA GLUCOSE POC Routine 01/12/2025 8:27 PM EDT NOVA GLUCOSE POC Routine 01/12/2025 5:04 PM EDT NOVA GLUCOSE POC Routine 01/12/2025 11:2 1 AM EDT NOVA GLUCOSE POC Routine 01/12/2025 5:35 AM EDT NOVA GLUCOSE POC Routine 01/11/2025 8:56 PM EDT NOVA GLUCOSE POC Routine 01/11/2025 6:[address] ABDOMEN/PELVIS WITHOUT IV CONTRAST STAT 01/11/2025 3:[address] BRAIN WITHOUT IV CONTRAST STAT 01/11/2025 2:22 PM EDT FS_MODEL_IP_ECG 12-LEAD Routine 01/11/2025 11:51 AM EDT XR CHEST AP PORTABLE STAT 01/11/2025 11:50 AM EDT COVID ANTIGEN STAT 01/11/2025 11:48 AM EDT CBC W/ AUTO DIFF STAT 01/11/2025 11:4 8 AM EDT LACTIC ACID WITH REFLEX STAT 01/11/2025 11:48 AM EDT HIGH SENSITIVITY TROPONIN I STAT 01/11/2025 11:48 AM EDT BLOOD CULTURE STAT 01/11/2025 11:48 AM EDT BLOOD CULTURE STAT 01/11/2025 11:48 AM EDT MAGNESIUM STAT 01/11/2025 11:48 AM EDT COMPREHENSIVE METABOLIC PANEL STAT 01/11/2025 11:48 AM EDT EKG-SCANNED 01/11/2025 documented in this encounter Results * (ABNORMAL) Glucose, Nova Meter (01/14/2025 10:47 AM EDT) Pathologist [facility] [place] POC-GLUCOSE 171(H) 70 - 110 mg/dL 01/14/2025 10:49 AM EDT [facility] Comment: In the event of poor peripheral blood flow, venous or arterial blood should be used due to the potential of erroneous results. Notified Nurse RBV Certified Ophthalmic Surgical Assistant [id number] 01/14/2025 10:49 AM EDT [facility] Blood WHOLE BLOOD / Unknown 01/14/2025 10:47 AM EDT 01/14/2025 10:49 AM EDT Narrative [facility] - 01/14/2025 10:49 AM EDT Certified Ophthalmic Surgical Assistant ID is - [id number] us Ismaeel Celia DO POINT OF CARE TEST ORDERABLES Final Result [facility] [address] [phone] * (ABNORMAL) CBC with automated diff (01/14/2025 6:15 AM EDT) [facility] WBC 7.1 4.0 - 10.0 K/ L 01/14/2025 6:33 AM EDT [facility] RBC 3.25(L) 3.93 - 5.22 M/ L 01/14/2025 6:33 AM EDT [facility] Hemoglobin 10.5(L) 11.2 - 15.7 GM/DL 01/14/2025 6:33 AM EDT [facility] Hematocrit 31.6(L) 34.1 - 44.9 % 01/14/2025 6:33 AM EDT [facility] MCV 97(H) 79 - 95 fL 01/14/2025 6:33 AM EDT [facility] MCH 32.3(H) 25.6 - 32.2 pg 01/14/2025 6:33 AM EDT [facility] MCHC 33.2 32.2 - 35.5 GM/DL 01/14/2025 6:33 AM EDT [facility] RDW 13.1 11.7 - 14.4 % 01/14/2025 6:33 AM EDT [facility] Platelets 239 140 - 375 K/CU MM 01/14/2025 6:33 AM EDT [facility] MPV 9.5 9.4 - 12.3 fL 01/14/2025 6:33 AM EDT [facility] % Neutros 66 34 - 71 % 01/14/2025 6:33 AM EDT [facility] % Lymphs 20 19 - 52 % 01/14/2025 6:33 AM EDT [facility] % Monos 11 5 - 13 % 01/14/2025 6:33 AM EDT [facility] % Eos 2 1 - 6 % 01/14/2025 6:33 AM EDT [facility] % Baso 0 0 - 1 % 01/14/2025 6:33 AM EDT [facility] NRBC Absolute <0.01 0 - 0.012 K/ul 01/14/2025 6:33 AM EDT [facility] # Neutros 4.67 1.56 - 6.13 K/ L 01/14/2025 6:33 AM EDT [facility] # Lymphs 1.41 1.18 - 3.74 K/ L 01/14/2025 6:33 AM EDT [facility] # Monos 0.76 0.24 - 0.86 K/ L 01/14/2025 6:33 AM EDT [facility] # Eos 0.14 0.04 - 0.36 K/ L 01/14/2025 6:33 AM EDT [facility] # Baso 0.03 0.01 - 0.08 K/ L 01/14/2025 6:33 AM EDT [facility] Immature Granulocytes-Re lative 0.60(H) 0.01 - 0.43 % 01/14/2025 6:33 AM EDT [facility] # IG 0.04(H) 0.00 - 0.03 K/uL 01/14/2025 6:33 AM EDT [facility] Blood Venipuncture / Unknown 01/14/2025 6:15 AM EDT 01/14/2025 6:27 AM EDT Narrative [facility] - 01/14/2025 6:33 AM EDT When CBC w/ Auto Diff is ordered the lab will add a Manual Differential as a quality check at no additional charge if: Lymphocytes greater than seventy five percent with normal or increased WBC Monocytes greater than Fifteen percent Basophil greater than four percent Bands >10% or several immature myeloids are seen on scan Blast? Flag noted Atypical Lymph flag noted us Gabino Esteban MD LAB BLOOD ORDERABLES Final Resul t Performing Organization Address [facility] Phone Number [facility] [address] [phone] * Magnesium (01/14/2025 6:14 AM EDT) Magnesium 1.8 1.6 - 2.6 mg/dL 01/14/2025 6:58 AM EDT [facility] Blood Venipuncture / Unknown 01/14/2025 6:14 AM EDT 01/14/2025 6:27 AM EDT us Gabino Esteban MD LAB BLOOD ORDERABLES Final Resul t Performing Organization Address [facility] Co de Phone Number [facility] [address] [phone] * (ABNORMAL) Comprehensive metabolic panel (01/14/2025 6:14 AM EDT) Sodium 136 136 - 145 meq/L 01/14/2025 7:07 AM EDT [facility] Potassium 3.8 3.4 - 5.1 meq/L 01/14/2025 7:07 AM EDT [facility] Chloride 100 98 - 112 meq/L 01/14/2025 7:07 AM [facility] CO2 24 22 - 29 meq/L 01/14/2025 7:07 AM [facility] Calcium 8.4 8.4 - 10.2 mg/dL 01/14/2025 7:07 AM [facility] Glucose 122(H) 74 - 100 mg/dL 01/14/2025 7:07 AM [facility] BUN 18.9 9.8 - 20.1 mg/dL 01/14/2025 7:07 AM [facility] Creatinine 4.18(H) 0.57 - 1.11 mg/dL 01/14/2025 7:07 AM [facility] BUN/Creatinine 5(L) 8 - 20 01/14/2025 7:07 AM [facility] eGFR (mL/min/1.73m2) 12(L) >=60 mL/min/1. 73m2 01/14/2025 7:07 AM [facility] Albumin 2.8(L) 3.5 - 5.0 g/dL 01/14/2025 7:07 AM [facility] Alkaline Phosphatase 139 40 - 150 U/L 01/14/2025 7:07 AM [facility] ALT <7 <=34 U/L 01/14/2025 7:07 AM [facility] Comment: ALT2 reagent used for testing does not contain P5P supplementation and therefore may miss ALT elevations in patients with B6 deficiency. This population may be as high as 10% in the [place], with risk factors including malabsorption, drug interactions, and alcoholic hepatitis. AST 18 11 - 34 U/L 01/14/2025 7:07 AM [facility] Comment: AST2 reagent used for testing does not contain P5P supplementation and therefore may miss AST elevations in patients with B6 deficiency. This population may be as high as 10% in the [place], with risk factors including malabsorption, drug interactions, and alcoholic hepatitis. Total Bilirubin 0.5 0.2 - 1.2 mg/dL 01/14/2025 7:07 AM [facility] Protein, Total 6.5 6.4 - 8.3 g/dL 01/14/2025 7:07 AM EDT [facility] Globulin 3.7 2.5 - 4.1 g/dL 01/14/2025 7:07 AM EDT [facility] Anion Gap 16(H) 4 - 12 01/14/2025 7:07 AM EDT [facility] A/G Ratio 0.8 0.7 - 1.9 01/14/2025 7:07 AM EDT [facility] Osmolality Calc 275.5 mOsm/kg 7:07 AM EDT [facility] Blood Venipuncture / Unknown 01/14/2025 6:14 AM EDT 01/14/2025 6:27 AM EDT us Gabino Esteban MD LAB BLOOD ORDERABLES Final Resul t Performing Organization Address [facility] Co ca Phone Number [facility] [address] [phone] * (ABNORMAL) Glucose, Nova Meter (01/14/2025 5:51 AM EDT) POC-GLUCOSE 129(H) 70 - 110 mg/dL 01/14/2025 5:53 AM EDT [facility] Comment: In the event of poor peripheral blood flow, venous or arterial blood should be used due to the potential of erroneous results. Notified Nurse RBV Certified Ophthalmic Surgical Assistant [id number] 01/14/2025 5:53 AM EDT [facility] Blood WHOLE BLOOD / Unknown 01/14/2025 5:51 AM EDT 01/14/2025 5:53 AM EDT Narrative [facility] - 01/14/2025 5:53 AM EDT Certified Ophthalmic Surgical Assistant ID is - [id number] us Karla Mosley MD POINT OF CARE TEST ORDERABLES Fi nal Result Performing Organization Address [facility]/ZIP Co de Phone Number [facility] [address] [phone] * Glucose, Nova Meter (01/13/2025 8:09 PM EDT) Pathologist [facility] [place] POC-GLUCOSE 103 70 - 110 mg/dL 01/13/2025 8:11 PM EDT [facility] Comment: In the event of poor peripheral blood flow, venous or arterial blood should be used due to the potential of erroneous results. Notified Nurse RBV Certified Ophthalmic Surgical Assistant [id number] 01/13/2025 8:11 PM EDT [facility] Blood WHOLE BLOOD / Unknown 01/13/2025 8:09 PM EDT 01/13/2025 8:10 PM EDT Narrative [facility] - 01/13/2025 8:11 PM EDT Certified Ophthalmic Surgical Assistant ID is - [id number] Karla Mosley MD POINT OF CARE TEST ORDERABLES Fi nal Result Performing Organization Address [facility] Number [facility] [address] [phone] * (ABNORMAL) Glucose, Nova Meter (01/13/2025 11:07 AM EDT) [facility] POC-GLUCOSE 147(H) 70 - 110 mg/dL 01/13/2025 11:12 AM EDT [facility] Comment: In the event of poor peripheral blood flow, venous or arterial blood should be used due to the potential of erroneous results. Notified Nurse RBV Certified Ophthalmic Surgical Assistant [id number] 01/13/2025 11:12 AM EDT [facility] Blood WHOLE BLOOD / Unknown 01/13/2025 11:07 AM EDT 01/13/2025 11:12 AM EDT Narrative [facility] - 01/13/2025 11:12 AM EDT Certified Ophthalmic Surgical Assistant ID is - [id number] us Karla Mosley MD POINT OF CARE TEST ORDERABLES Fi nal Result Performing Organization Address [facility] Co de [facility] Number [facility] [address] [phone] * Magnesium (01/13/2025 9:53 AM EDT) [facility] Magnesium 1.8 1.6 - 2.6 mg/dL 01/13/2025 10:39 AM EDT [facility] Blood Venipuncture / Unknown 01/13/2025 9:53 AM EDT 01/13/2025 10:11 AM EDT us Gbaino Esteban MD LAB BLOOD ORDERABLES Final Resul t [facility] [address] [phone] * (ABNORMAL) Comprehensive metabolic panel (01/13/2025 9:53 AM EDT) Sodium 139 136 - 145 meq/L 01/13/2025 10:40 AM EDT [facility] Potassium 4.3 3.4 - 5.1 meq/L 01/13/2025 10:40 AM EDT [facility] Chloride 101 98 - 112 meq/L 01/13/2025 10:40 AM EDT [facility] CO2 27 22 - 29 meq/L 01/13/2025 10:40 AM EDT [facility] Calcium 8.6 8.4 - 10.2 mg/dL 01/13/2025 10:40 AM EDT [facility] Glucose 123(H) 74 - 100 mg/dL 01/13/2025 10:40 AM EDT [facility] BUN 28.7(H) 9.8 - 20.1 mg/dL 01/13/2025 10:40 AM EDT [facility] Creatinine 5.75(H) 0.57 - 1.11 mg/dL 01/13/2025 10:40 AM EDT [facility] BUN/Creatinine 5(L) 8 - 20 01/13/2025 10:40 AM EDT [facility] eGFR (mL/min/1.73m2) 8(L) >=60 mL/min/1. 73m2 01/13/2025 10:40 AM EDT [facility] Albumin 2.9(L) 3.5 - 5.0 g/dL 01/13/2025 10:40 AM EDT [facility] Alkaline Phosphatase 145 40 - 150 U/L 01/13/2025 10:40 AM EDT [facility] ALT <7 <=34 U/L 01/13/2025 10:40 AM EDT [facility] Comment: ALT2 reagent used for testing does not contain P5P supplementation and therefore may miss ALT elevations in patients with B6 deficiency. This population may be as high as 10% in the [place], with risk factors including malabsorption, drug interactions, and alcoholic hepatitis. AST 21 11 - 34 U/L 01/13/2025 10:40 AM EDT [facility] Comment: AST2 reagent used for testing does not contain P5P supplementation and therefore may miss AST elevations in patients with B6 deficiency. This population may be as high as 10% in the [place], with risk factors including malabsorption, drug interactions, and alcoholic hepatitis. Total Bilirubin 0.5 0.2 - 1.2 mg/dL 01/13/2025 10:40 AM EDT [facility] Protein, Total 6.5 6.4 - 8.3 g/dL 01/13/2025 10:40 AM EDT [facility] Globulin 3.6 2.5 - 4.1 g/dL 01/13/2025 10:40 AM EDT [facility] Anion Gap 15(H) 4 - 12 01/13/2025 10:40 AM T [facility] A/G Ratio 0.8 0.7 - 1.9 01/13/2025 10:40 AM EDT [facility] Osmolality Calc 284.6 mOsm/kg 10:40 AM T [facility] Blood Venipuncture / Unknown 01/13/2025 9:53 AM EDT 01/13/2025 10:11 AM EDT us Gabino Esteban MD LAB BLOOD ORDERABLES Final Resul t [facility] [address] [place] [id number] [phone] * (ABNORMAL) CBC with automated diff (01/13/2025 9:53 AM EDT) WBC 7.3 4.0 - 10.0 K/ L 01/13/2025 10:17 AM EDT [facility] RBC 3.13(L) 3.93 - 5.22 M/ L [facility] Hemoglobin 10.2(L) 11.2 - 15.7 GM/DL 01/13/2025 10:17 AM [facility] Hematocrit 30.7(L) 34.1 - 44.9 % 01/13/2025 10:[facility] MCV 98(H) 79 - 95 fL 01/13/2025 10:17 AM [facility] MCH 32.6(H) 25.6 - 32.2 pg 01/13/2025 10:17 AM [facility] MCHC 33.2 32.2 - 35.5 GM/DL 01/13/2025 10:17 AM [facility] RDW 13.1 11.7 - 14.4 % 01/13/2025 10:17 AM [facility] Platelets 211 140 - 375 K/CU MM 01/13/2025 10:17 AM [facility] MPV 9.5 9.4 - 12.3 fL 01/13/2025 10:17 AM [facility] % Neutros 67 34 - 71 % 01/13/2025 10:17 AM [facility] % Lymphs 21 19 - 52 % 01/13/2025 10:17 AM EDT [facility] % Monos 9 5 - 13 % 01/13/2025 10:17 AM EDT [facility] % Eos 2 1 - 6 % 01/13/2025 10:17 AM EDT [facility] % Baso 0 0 - 1 % 01/13/2025 10:17 AM EDT [facility] NRBC Absolute <0.01 0 - 0.012 K/ul 01/13/2025 10:[facility] # Neutros 4.93 1.56 - 6.13 K/ L 01/13/2025 10:17 AM EDT [facility] # Lymphs 1.53 1.18 - 3.74 K/ L 01/13/2025 10:17 AM EDT [facility] # Monos 0.68 0.24 - 0.86 K/ L 01/13/2025 10:17 AM EDT [facility] # Eos 0.12 0.04 - 0.36 K/ L 01/13/2025 10:17 AM EDT [facility] # Baso 0.03 0.01 - 0.08 K/ L 01/13/2025 10:17 AM EDT [facility] Immature Granulocytes-Re lative 0.70(H) 0.01 - 0.43 % 01/13/2025 10:17 AM EDT [facility] # IG 0.05(H) 0.00 - 0.03 K/uL 01/13/2025 10:17 AM EDT [facility] Blood Venipuncture / Unknown 01/13/2025 9:53 AM EDT 01/13/2025 10:11 AM EDT Narrative [facility] - 01/13/2025 10:17 AM EDT When CBC w/ Auto Diff is ordered the lab will add a Manual Differential as a quality check at no additional charge if: Lymphocytes greater than seventy five percent with normal or increased WBC Monocytes greater than Fifteen percent Basophil greater than four percent Bands >10% or several immature myeloids are seen on scan Blast? Flag noted Atypical Lymph flag noted us Gabino Esteban MD LAB BLOOD ORDERABLES Final Resul t [facility] [address] [phone] * Phosphorus (01/13/2025 9:53 AM EDT) Phosphorus 3.1 2.5 - 4.5 mg/dL 01/13/2025 10:39 AM EDT [facility] Blood Venipuncture / Unknown 01/13/2025 9:53 AM EDT 01/13/2025 10:11 AM EDT us Gabino Esteban MD LAB BLOOD ORDERABLES Final Resul t [facility] [address] [phone] * (ABNORMAL) Glucose, Nova Meter (01/13/2025 5:54 AM EDT) POC-GLUCOSE 111(H) 70 - 110 mg/dL 01/13/2025 5:55 AM EDT [facility] Comment: In the event of poor peripheral blood flow, venous or arterial blood should be used due to the potential of erroneous results. Notified Nurse RBV Certified Ophthalmic Surgical Assistant [id number] 01/13/2025 5:55 AM EDT [facility] Blood WHOLE BLOOD / Unknown 01/13/2025 5:54 AM EDT 01/13/2025 5:55 AM EDT [facility] - 01/13/2025 5:55 AM EDT Certified Ophthalmic Surgical Assistant ID is - [id number] Gabino Esteban MD POINT OF CARE TEST ORDERABLES Fi nal Result Performing Organization Address City/[facility] Co de Phone Number [facility] [address] [place] [address], [facility] [phone] * Glucose, Nova Meter (01/12/2025 8:27 PM EDT) POC-GLUCOSE 110 70 - 110 mg/dL 01/12/2025 8:28 PM EDT [facility] Comment: In the event of poor peripheral blood flow, venous or arterial blood should be used due to the potential of erroneous results. Notified Nurse RBV Certified Ophthalmic Surgical Assistant [id number] 01/12/2025 8:28 PM EDT [facility] Blood WHOLE BLOOD / Unknown 01/12/2025 8:27 PM EDT 01/12/2025 8:28 PM EDT [facility] - 01/12/2025 8:28 PM EDT Certified Ophthalmic Surgical Assistant ID is - [id number] Gabino Esteban MD POINT OF CARE TEST ORDERABLES Fi nal Result Performing Organization Address City/[facility]/ZIP Co de Phone Number [facility] [address] [place] [address], [facility] [phone] * Glucose, Nova Meter (01/12/2025 5:04 PM EDT) POC-GLUCOSE 98 70 - 110 mg/dL 01/12/2025 5:05 PM EDT [facility] Comment: In the event of poor peripheral blood flow, venous or arterial blood should be used due to the potential of erroneous results. Protocols Followed Certified Ophthalmic Surgical Assistant [id number] 01/12/2025 5:05 PM EDT [facility] Blood WHOLE BLOOD / Unknown 01/12/2025 5:04 PM EDT 01/12/2025 5:05 PM EDT [facility] - 01/12/2025 5:05 PM EDT Certified Ophthalmic Surgical Assistant ID is - [id number] Gabino Esteban MD POINT OF CARE TEST ORDERABLES Fi nal Result Performing Organization Address [facility] Co de Phone Number [facility] [address] [place] [address], [facility] [phone] * Glucose, Nova Meter (01/12/2025 11:21 AM EDT) Pathologist [facility] [place] POC-GLUCOSE 106 70 - 110 mg/dL 01/12/2025 11:28 AM EDT [facility] Comment: In the event of poor peripheral blood flow, venous or arterial blood should be used due to the potential of erroneous results. Notified Nurse RBV Certified Ophthalmic Surgical Assistant [id number] 01/12/2025 11:28 AM EDT [facility] Blood WHOLE BLOOD / Unknown 01/12/2025 11:21 AM EDT 01/12/2025 11:28 AM EDT [facility] - 01/12/2025 11:28 AM EDT Certified Ophthalmic Surgical Assistant ID is - [id number] Gabino Esteban MD POINT OF CARE TEST ORDERABLES Fi nal Result Performing Organization Address City/[facility]/ZIP Co de Phone Number [facility] [address] [phone] * Glucose, Nova Meter (01/12/2025 5:35 AM EDT) POC-GLUCOSE 103 70 - 110 mg/dL 01/12/2025 5:36 AM EDT [facility] Comment: In the event of poor peripheral blood flow, venous or arterial blood should be used due to the potential of erroneous results. Notified Nurse RBV Certified Ophthalmic Surgical Assistant [id number] 01/12/2025 5:36 AM EDT [facility] Blood WHOLE BLOOD / Unknown 01/12/2025 5:35 AM EDT 01/12/2025 5:36 AM EDT [facility] - 01/12/2025 5:36 AM EDT Certified Ophthalmic Surgical Assistant ID is - [id number] Olegairo WHITEHEAD-C POINT OF CARE TEST ORDERABLE S Final Result Performing Organization Address [facility] Co de Phone Number [facility] [address] [phone] * Glucose, Nova Meter (01/11/2025 8:56 PM EDT) Pathologist [facility] [place] POC-GLUCOSE 103 70 - 110 mg/dL 01/11/2025 8:57 PM EDT [facility] Comment: In the event of poor peripheral blood flow, venous or arterial blood should be used due to the potential of erroneous results. Notified Nurse RBV Certified Ophthalmic Surgical Assistant [id number] 01/11/2025 8:57 PM EDT [facility] Blood WHOLE BLOOD / Unknown 01/11/2025 8:56 PM EDT 01/11/2025 8:57 PM EDT [facility] - 01/11/2025 8:57 PM EDT Certified Ophthalmic Surgical Assistant ID is - [id number] Olegario WHITEHEAD-C POINT OF CARE TEST ORDERABLE S Final Result Performing Organization Address City/[facility]/ZIP Co de Phone Number [facility] [address] [phone] * (ABNORMAL) Glucose, Nova Meter (01/11/2025 6:12 PM EDT) POC-GLUCOSE 116(H) 70 - 110 mg/dL 01/11/2025 6:14 PM EDT [facility] Comment:In the event of poor peripheral blood flow, venous or arterial blood should be used due to the potential of erroneous results. Certified Ophthalmic Surgical Assistant [id number] 01/11/2025 6:14 PM EDT [facility] Blood WHOLE BLOOD / Unknown 01/11/2025 6:12 PM EDT 01/11/2025 6:14 PM EDT Narrative [facility] - 01/11/2025 6:14 PM EDT Certified Ophthalmic Surgical Assistant ID is - [id number] Olegario Varghese PA-C POINT OF CARE TEST ORDERABLE S Final Result [facility] [address] [phone] * CT ABDOMEN/PELVIS WITHOUT IV CONTRAST Standard Protocol (01/11/2025 3:59 PM EDT) Anatomical Region Laterality Modality Abdomen, Pelvis Computed Tomogra phy (CT) 01/11/2025 4:41 PM EDT Impressions 01/11/2025 5:00 PM EDT No acute process. Narrative 01/11/2025 5:[address] SCAN OF THE ABDOMEN AND PELVIS WITHOUT CONTRAST 01/11/2025 3:49 PM HISTORY: Acute epigastric pain COMPARISON: April 2019 PROCEDURE: Axial images were obtained from the lung bases to the pubic symphysis by computed tomography. This study was performed with techniques to keep radiation doses as low as reasonably achievable, (ALARA). Individualized dose reduction techniques using automated exposure control or adjustment of mA and/or kV according to the patient size were employed. FINDINGS: ABDOMEN: There is mild bibasilar atelectasis. There is a ventral hernia in the upper abdomen containing omental fat. The liver is fatty infiltrated and somewhat heterogeneous. The gallbladder is absent. The spleen is prominent. There is perinephric stranding bilaterally. There is no hydronephrosis or nephrolithiasis. The right adrenal is minimally calcified. The solid organs are otherwise unremarkable. There is no free fluid or adenopathy. There is a small umbilical hernia containing omental fat. PELVIS: The urinary bladder is distended. The uterus is deviated to the left. An IUD is noted within the uterus. The appendix is not identified. There is no free fluid or adenopathy. Procedure Note Nayeli Sutton MD - 01/11/2025 CT SCAN OF THE ABDOMEN AND PELVIS WITHOUT CONTRAST 01/11/2025 3:49 PM HISTORY: Acute epigastric pain COMPARISON: April 2019 PROCEDURE: Axial images were obtained from the lung bases to the pubic symphysis by computed tomography. This study was performed with techniques to keep radiation doses as low as reasonably achievable, (ALARA). Individualized dose reduction techniques using automated exposure control or adjustment of mA and/or kV according to the patient size were employed. FINDINGS: ABDOMEN: There is mild bibasilar atelectasis. There is a ventral hernia in the upper abdomen containing omental fat. The liver is fatty infiltrated and somewhat heterogeneous. The gallbladder is absent. The spleen is prominent. There is perinephric stranding bilaterally. There is no hydronephrosis or nephrolithiasis. The right adrenal is minimally calcified. The solid organs are otherwise unremarkable. There is no free fluid or adenopathy. There is a small umbilical hernia containing omental fat. PELVIS: The urinary bladder is distended. The uterus is deviated to the left. An IUD is noted within the uterus. The appendix is not identified. There is no free fluid or adenopathy. IMPRESSION: No acute process. us Benedict Fleming MD IMG CT ORDERABLES Final Res ult * CT brain without IV contrast (01/11/2025 2:22 PM EDT) Anatomical Region Laterality Modality Brain, Head Computed Tomogra phy (CT) 01/11/2025 2:31 PM EDT Impressions 01/11/2025 2:32 PM EDT Negative. Narrative 01/11/2025 2:[address] brain without IV contrast HISTORY: Weakness after dialysis FINDINGS: Noncontrast imaging. This study was performed with techniques to keep radiation doses as low as reasonably achievable (ALARA). Individualized dose reduction techniques using automated exposure control or adjustment of mA and/or kV according to the patient's size were employed. There is no significant atrophy. Ventricles are normal in size and shape and are midline. There is no mass effect or edema. There is no CVA or hemorrhage. There are no extra-axial fluid collections. Paranasal sinuses are clear. The calvarium is intact. Procedure Note Arlyn Sun MD - 01/11/2025 CT brain without IV contrast HISTORY: Weakness after dialysis FINDINGS: Noncontrast imaging. This study was performed with techniques to keep radiation doses as low as reasonably achievable (ALARA). Individualized dose reduction techniques using automated exposure control or adjustment of mA and/or kV according to the patient's size were employed. There is no significant atrophy. Ventricles are normal in size and shape and are midline. There is no mass effect or edema. There is no CVA or hemorrhage. There are no extra-axial fluid collections. Paranasal sinuses are clear. The calvarium is intact. IMPRESSION: Negative. us Benedict Fleming MD IMG CT ORDERABLES Final Res ult * ECG 12 lead (01/11/2025 11:51 AM EDT) VENTRICULAR RATE EKG/MIN 102 BPM GE MUSE ATRIAL RATE (MCT) 106 BPM GE MUSE [place] Interval 164 ms GE MUSE QRS-INTERVAL (MSEC) 84 ms GE MUSE QT Interval 332 ms GE MUSE QTC Interval 432 ms GE MUSE P [place] 54 degrees GE MUSE R AXIS (MCT) 20 degrees GE MUSE T Wave [place] 44 degrees GE MUSE Friendly Diagnosis Age and gender specific ECG analysis Sinus tachycardia Low voltage QRS Borderline ECG When compared with ECG of 21-JUL-2024 08:41, No significant change was found Confirmed by Cruz ADLER MATTHEW ([id number]) on 01/15/2025 9:08:45 AM GE MUSE 01/11/2025 11:5 1 AM EDT 01/15/2025 9:08 AM EDT us Benedict Fleming MD ECG ORDERABLES Final Resul t GE MUSE * XR chest AP portable (01/11/2025 11:50 AM EDT) Anatomical Region Laterality Modality Chest X-Ray 01/11/2025 12:3 3 PM EDT Impressions 01/11/2025 12:37 PM EDT Atelectasis as above. Continued follow-up recommended. Images reviewed, interpreted, and dictated by Dr. Ivanna Sutton. Transcribed by Yessica Huerta PA-C. Narrative 01/11/2025 12:37 PM EDT PORTABLE CHEST 01/11/2025 11:50 AM HISTORY: Septic. COMPARISON: July 2024. FINDINGS: The heart is normal in size . The mediastinum is unremarkable . There is right upper lobe atelectasis. There is no pneumothorax . The osseous structures are unremarkable . There is a left IJ line in good position. Procedure Note Nayeli Sutton MD - 01/11/2025 PORTABLE CHEST 01/11/2025 11:50 AM HISTORY: Septic. COMPARISON: July 2024. FINDINGS: The heart is normal in size . The mediastinum is unremarkable . There is right upper lobe atelectasis. There is no pneumothorax . The osseous structures are unremarkable . There is a left IJ line in good position. IMPRESSION: Atelectasis as above. Continued follow-up recommended. Images reviewed, interpreted, and dictated by Dr. Ivanna Sutton. Transcribed by Yessica Huerta PA-C. us Benedict Fleming MD IMG DIAGNOSTIC IMAGING MASHA ARZATE Final Result * Magnesium (01/11/2025 11:48 AM EDT) Magnesium 2.0 1.6 - 2.6 mg/dL 01/11/2025 12:22 PM EDT [facility] Blood Venipuncture / Unknown 01/11/2025 11:48 AM EDT 01/11/2025 11:56 AM EDT Benedict Fleming MD LAB BLOOD ORDERABLES Final Result Performing Organization Address [facility]/ZIP Co de Phone Number [facility] [address] [phone] * High Sensitivity Troponin I (01/11/2025 11:48 AM EDT) [facility] Troponin I High Sensitivity (pg/mL) <5.0 <=14 pg/mL 01/11/2025 12:32 PM EDT [facility] Blood Venipuncture / Unknown 01/11/2025 11:48 AM EDT 01/11/2025 11:56 AM EDT [facility] - 01/11/2025 12:32 PM EDT Applicable to [facility] only. Effective October 25 the lab will begin using a new chemistry analyzer. HsTroponin methodology, reference ranges and critical values have changed. Benedict lFeming MD LAB BLOOD ORDERABLES Final Result Performing Organization Address [facility] Co de Phone Number [facility] [address] [phone] * COVID ANTIGEN (01/11/2025 11:48 AM EDT) [facility] SARS COVID ANTIGEN Negative Negative, Invalid 01/11/2025 12:40 PM EDT [facility] Nasal Swab (Nasal) 01/11/2025 11:48 AM EDT 01/11/2025 11:56 AM EDT Narrative [facility] - 01/11/2025 12:40 PM EDT The BD Veritor System for Rapid Detection of SARS-CoV-2 does not differentiate between SARS-CoV and SARS-CoV-2.The BD Veritor System for Rapid Detection of SARS-CoV-2 is only for in vitro diagnostic use under the Food and Drug Administration's Emergency Use Authorization. This product has not been FDA cleared or approved. Results should be correlated with the clinical history, epidemiological data, and other data available to the clinician evaluating the patient. SARS-CoV-2 viral antigens are generally detectable in anterior nasal swab specimens during the acute phase of infection. Positive results indicate the presence of viral antigens, but clinical correlation with patient history and other diagnostic information is necessary to determine infection status. Negative results are presumptive, do not rule out SARS-CoV-2 infection, and should not be used as the sole basis for treatment or patient management decisions, including infection control measures such as isolating from others and wearing masks. Serial testing should be performed in individuals with negative results at least twice over three days (with 48 hours between tests) for symptomatic individuals. Confirmation with a molecular assay may be necessary if there is a high likelihood of SARS-CoV-2 infection. us Benedict Fleming MD MICROBIOLOGY - GENERAL MASHA ARZATE Final Result Performing Organization Address City/[facility]/ZIP Co de Phone Number [facility] [address] [phone] * Blood Culture (01/11/2025 11:48 AM EDT) Result No growth in 5 days 01/16/2025 1:00 PM EDT [facility] Blood Venipuncture / Unknown 01/11/2025 11:48 AM EDT 01/11/2025 11:56 AM EDT us Benedict Fleming MD MICROBIOLOGY - GENERAL MASHA ARZATE Final Result Performing Organization Address City/[facility]/ZIP Co de Phone Number [facility] [address] [phone] * Blood Culture (01/11/2025 11:48 AM EDT) Result No growth in 5 days 01/16/2025 1:00 PM EDT [facility] Blood Venipuncture / Unknown 01/11/2025 11:48 AM EDT 01/11/2025 11:56 AM EDT us Benedict Fleming MD MICROBIOLOGY - GENERAL MASHA ARZATE Final Result Performing Organization Address City/[facility]/ZIP Co de Phone Number [facility] [address] [phone] * Lactic Acid with reflex (SJ) (01/11/2025 11:48 AM EDT) Lactic Acid Level (mmol/L) 1.2 0.5 - 2.2 mmol/L 01/11/2025 12:48 PM EDT [facility] Blood Venipuncture / Unknown 01/11/2025 11:48 AM EDT 01/11/2025 12:27 PM EDT Narrative [facility] - 01/11/2025 12:48 PM EDT Specimen slightly hemolyzed us Benedict Fleming MD LAB BLOOD ORDERABLES Final Result [facility] [address] [phone] * (ABNORMAL) Comprehensive metabolic panel (01/11/2025 11:48 AM EDT) Sodium 142 136 - 145 meq/L 01/11/2025 12:22 PM EDT [facility] Potassium 4.4 3.4 - 5.1 meq/L 01/11/2025 12:22 PM EDT [facility] Chloride 100 98 - 112 meq/L 01/11/2025 12:22 PM EDT [facility] CO2 31(H) 22 - 29 meq/L 01/11/2025 12:22 PM EDT [facility] Calcium 10.0 8.4 - 10.2 mg/dL 01/11/2025 12:22 PM EDT [facility] Glucose 125(H) 74 - 100 mg/dL 01/11/2025 12:22 PM EDT [facility] BUN 46.9(H) 9.8 - 20.1 mg/dL 01/11/2025 12:22 PM EDT [facility] Creatinine 6.98(H) 0.57 - 1.11 mg/dL 01/11/2025 12:22 PM EDT [facility] BUN/Creatinine 7(L) 8 - 20 01/11/2025 12:22 PM EDT [facility] eGFR (mL/min/1.73m2) 7(L) >=60 mL/min/1. 73m2 01/11/2025 12:22 PM [facility] Albumin 3.4(L) 3.5 - 5.0 g/dL 01/11/2025 12:22 PM [facility] Alkaline Phosphatase 175(H) 40 - 150 U/L 01/11/2025 12:22 PM [facility] ALT 34 <=34 U/L 01/11/2025 12:22 PM [facility] Comment: ALT2 reagent used for testing does not contain P5P supplementation and therefore may miss ALT elevations in patients with B6 deficiency. This population may be as high as 10% in the [place], with risk factors including malabsorption, drug interactions, and alcoholic hepatitis. AST 48(H) 11 - 34 U/L 01/11/2025 12:22 PM [facility] Comment: AST2 reagent used for testing does not contain P5P supplementation and therefore may miss AST elevations in patients with B6 deficiency. This population may be as high as 10% in the [place], with risk factors including malabsorption, drug interactions, and alcoholic hepatitis. Total Bilirubin 0.4 0.2 - 1.2 mg/dL 01/11/2025 12:22 PM [facility] Protein, Total 7.0 6.4 - 8.3 g/dL 01/11/2025 12:22 PM T [facility] Globulin 3.6 2.5 - 4.1 g/dL 01/11/2025 12:22 PM [facility] Anion Gap 15(H) 4 - 12 01/11/2025 12:22 PM [facility] A/G Ratio 0.9 0.7 - 1.9 01/11/2025 12:22 PM [facility] Osmolality Calc 296.8 mOsm/kg 12:22 PM [facility] Blood Venipuncture / Unknown 01/11/2025 11:48 AM EDT 01/11/2025 11:56 AM EDT us Benedict Fleming MD LAB BLOOD ORDERABLES Final Result [facility] [address] [id number], [facility] [phone] * (ABNORMAL) CBC with automated diff (01/11/2025 11:48 AM EDT) WBC 8.8 4.0 - 10.0 K/ L 01/11/2025 12:05 PM EDT [facility] RBC 3.39(L) 3.93 - 5.22 M/ L 01/11/2025 12:05 PM EDT [facility] Hemoglobin 11.1(L) 11.2 - 15.7 GM/DL 01/11/2025 12:05 PM EDT [facility] Hematocrit 33.1(L) 34.1 - 44.9 % 01/11/2025 12:05 PM EDT [facility] MCV 98(H) 79 - 95 fL 01/11/2025 12:05 PM EDT [facility] MCH 32.7(H) 25.6 - 32.2 pg 01/11/2025 12:05 PM EDT [facility] MCHC 33.5 32.2 - 35.5 GM/DL 01/11/2025 12:05 PM EDT [facility] RDW 13.3 11.7 - 14.4 % 01/11/2025 12:05 PM EDT [facility] Platelets 243 140 - 375 K/CU MM 01/11/2025 12:05 PM EDT [facility] MPV 9.8 9.4 - 12.3 fL 01/11/2025 12:05 PM EDT [facility] % Neutros 70 34 - 71 % 01/11/2025 12:05 PM EDT [facility] % Lymphs 19 19 - 52 % 01/11/2025 12:05 PM EDT [facility] % Monos 9 5 - 13 % 01/11/2025 12:05 PM EDT [facility] % Eos 1 1 - 6 % 01/11/2025 12:05 PM EDT [facility] % Baso 0 0 - 1 % 01/11/2025 12:05 PM EDT [facility] NRBC Absolute <0.01 0 - 0.012 K/ul 01/11/2025 12:05 PM EDT [facility] # Neutros 6.19(H) 1.56 - 6.13 K/ L 01/11/2025 12:05 PM EDT [facility] # Lymphs 1.71 1.18 - 3.74 K/ L 01/11/2025 12:05 PM EDT [facility] # Monos 0.75 0.24 - 0.86 K/ L 01/11/2025 12:05 PM EDT [facility] # Eos 0.10 0.04 - 0.36 K/ L 01/11/2025 12:05 PM EDT [facility] # Baso 0.03 0.01 - 0.08 K/ L 01/11/2025 12:05 PM EDT [facility] Immature Granulocytes-Re lative 0.60(H) 0.01 - 0.43 % 01/11/2025 12:05 PM EDT [facility] # IG 0.05(H) 0.00 - 0.03 K/uL 01/11/2025 12:05 PM EDT [facility] Blood Venipuncture / Unknown 01/11/2025 11:48 AM EDT 01/11/2025 11:56 AM EDT Narrative [facility] - 01/11/2025 12:05 PM EDT When CBC w/ Auto Diff is ordered the lab will add a Manual Differential as a quality check at no additional charge if: Lymphocytes greater than seventy five percent with normal or increased WBC Monocytes greater than Fifteen percent Basophil greater than four percent Bands >10% or several immature myeloids are seen on scan Blast? Flag noted Atypical Lymph flag noted us Benedict Fleming MD LAB BLOOD ORDERABLES Final Result [facility] [address] [phone] * EKG-SCANNED (01/11/2025) Narrative 01/11/2025 Ordered by an unspecified provider. us Default Scanning Provider SCAN ORDERS Final Result documented in this encounter Visit Diagnoses Diagnosis Persistent vomiting in adult patient- Primary Generalized weakness Primary hypertension Unspecified essential hypertension Nausea and vomiting, unspecified vomiting type Chronic renal failure, unspecified CKD stage documented in this encounter Admitting Diagnoses Diagnosis Persistent vomiting in adult patient documented in this encounter Administered Medications Inactive Administered Medications - up to 3 most recent administrations Medication Order MAR Action Action Date Dose Rate Site acetaminophen (TYLENOL) tablet 1,000 mg 1,000 mg Every 6 hours PRN, oral, mild pain (1-3), headache, fever greater than or equal to 38C, Starting on Thu01/11/25 at 1546, 1st line analgesic amLODIPine (NORVASC) tablet 10 mg 10 mg Daily, oral, First dose on Thu01/11/25 at 1715, Antihypertensive - Check BP - Check Pulse Given 01/14/2025 8:43 AM EDT 10 mg Given 01/13/2025 8:30 AM EDT 10 mg Given 01/12/2025 9:34 AM EDT 10 mg aspirin EC tablet 81 mg 81 mg Daily, oral, First dose on Thu01/11/25 at 1715, * DO NOT CRUSH THIS DOSAGE FORM * Given 01/14/2025 8:43 AM EDT 8 1 mg Given 01/13/2025 8:31 AM EDT 81 mg Given 01/12/2025 9:34 AM EDT 81 mg atorvastatin (LIPITOR) tablet 40 mg 40 mg Every Night, oral, First dose on Thu01/11/25 at 2100 Given 01/13/2025 11:17 PM EDT 40 mg Given 01/12/2025 8:02 PM EDT 40 mg Given 01/12/2025 12:14 AM EDT 40 mg bisacodyL (DULCOLAX) EC tablet 10 mg 10 mg Daily as needed, oral, constipation, Starting on Thu01/11/25 at 1544, 1st line for treatment of constipation - give scheduled if no bowel movement in past 24 hours. See suppository order and give rectally if not able to take PO. bisacodyL (DULCOLAX) suppository 10 mg 10 mg Daily as needed, rectal, constipation, Starting on Thu01/11/25 at 1544, 1st line for treatment of constipation - give scheduled if no bowel movement in past 24 hours. Give suppository rectally if unable to take PO. calcitonin (salmon) (MIACALCIN) nasal spray 1 spray 1 spray Daily, one nostril, First dose on Thu01/11/25 at 1715 Given 01/14/2025 8:51 AM EDT 1 spray Given 01/13/2025 11:30 AM EDT 1 spray Given 01/11/2025 6:02 PM EDT 1 spray calcium carbonate (OS-JERRELL) tablet 1250 mg (elemental calcium 500 mg) 1,500 mg Daily, oral, First dose on Thu01/11/25 at 1715, Each tablet contains 1250 mg of calcium carbonate which equals 500 mg of elemental calcium. Given 01/14/2025 8:43 AM EDT 1,500 mg Given 01/13/2025 8:29 AM EDT 1,500 mg Given 01/12/2025 9:34 AM EDT 1,500 mg carvediloL (COREG) tablet 12.5 mg 12.5 mg 2 times daily, oral, First dose on Thu01/11/25 at 2100, Hold for systolic BP < 90 mmHg or for HR < 50 BPM Given 01/14/2025 8:43 AM EDT 12.5 mg Given 01/13/2025 11:17 PM EDT 12.5 mg Given 01/13/2025 8:31 AM EDT 12.5 mg cefTRIAXone (ROCEPHIN) 2 g in sodium chloride 0.9 % (NS) 50 mL BLANCA IVPB 2 g Once, intravenous, at 100 mL/hr, On Thu01/11/25 at 1525, For 1 dose, Please choose an indication: Skin/Soft Tissue Infection IVPB Started 01/11/2025 4:22 PM EDT 2 g 100 mL/hr dextrose 50% (D50W) injection 25 g 25 g Every 15 min PRN, intravenous, low blood glucose (specify value in prn comments), less than 41 mg/dL or 41-69 mg/dL and unable to take PO, Starting on Thu01/11/25 at 1712, Repeat blood glucose every 15 minutes until blood glucose greater than 70 mg/dL. Call Provider if not resolved after 2 treatments Repeat BS in 1 hour, retime for 1 hour after blood sugar greater than 70 mg/dL If less than 41: Repeat Finger stick within 5 minutes with same machine Send serum glucose level: Do not wait on lab to treat famotidine (PEPCID) tablet 20 mg 20 mg 2 times daily, oral, First dose on Thu01/11/25 at 2100, Pharmacist to renally dose if CrCl is less than 50 mL/min or on CRRT. Given 01/14/2025 8:43 AM EDT 20 mg Given 01/13/2025 11:17 PM EDT 20 mg Given 01/13/2025 8:29 AM EDT 20 mg gabapentin (NEURONTIN) capsule 300 mg 300 mg Every Night, oral, First dose on Thu01/11/25 at 2100 Given 01/13/2025 11:17 PM EDT 300 mg Given 01/12/2025 8:02 PM EDT 300 mg Given 01/12/2025 12:14 AM EDT 300 mg glucagon injection 1 mg 1 mg Every 15 min PRN, intraMUSCULAR, low blood glucose (specify value in prn comments), For Patients without IV access and blood glucose 41-69 mg/dL AND unable to take PO OR Less than 41 mg/dL, Starting on Thu01/11/25 at 1712, Caution: glucagon . Roll patient on their side when administering to prevent aspiration. Call Provider if not resolved after 2 treatments Repeat BS in 1 hour, retime for 1 hour after blood sugar greater than 70 mg/dL glucose chew tab 16 g 16 g Every 15 min PRN, oral, low blood glucose (specify value in prn comments), 41-69 mg/dL, Starting on Thu01/11/25 at 1712, For Patients who can take oral AND blood glucose 41-69 mg/dL Give 4 Tabs every 15 minutes. Recheck blood glucose every 15 minutes and repeat 15 grams of carbohydrates until blood glucose is above 70 mg/dL. Give Meal or Snack Call Provider if not resolved after 3 treatments Repeat BS in 1 hour, retime for 1 hour after blood sugar greater than 70 mg/dL hydrALAZINE (APRESOLINE) injection 10 mg 10 mg Every 6 hours PRN, intravenous, hypertension (sbp greater than 160), Starting on Thu01/11/25 at 1544, Hold if SBP < 100 mmHg, DBP < 50 mmHg, or patient is on pressor. Look-alike/Sound-alike medication hydrALAZINE (APRESOLINE) injection 20 mg 20 mg Once, intravenous, On Thu01/11/25 at 1300, For 1 dose, Hold if SBP < 100 mmHg, DBP < 50 mmHg, or patient is on pressor. Look-alike/Sound-alike medication Given 01/11/2025 1:10 PM EDT 20 mg HYDROcodone-acetaminophen (NORCO) 5-325 mg per tablet 1 tablet 1 tablet Every 6 hours PRN, oral, moderate pain (4-6), Starting on Thu01/11/25 at 1546, 1st line analgesic Given 01/13/2025 11:22 PM EDT 1 tablet Given 01/13/2025 8:40 AM EDT 1 tablet Given 01/12/2025 9:34 AM EDT 1 tablet insulin lispro (HUMALOG, ADMELOG) injection 0-6 Units 0-6 Units 4 times daily (before meals and nightly), subcutaneous, First dose on Thu01/11/25 at 1745, If Blood Sugar is less than 180 between [id number], DO NOT give corrective insulin unless otherwise ordered. Corrective Scale A 0 units for fingerstick blood glucose LESS than 140 mg/dL 1 unit subcutaneously once for fingerstick blood glucose [140] - [180] mg/dL 2 units subcutaneously once for fingerstick blood glucose [181] - [220] mg/dL 3 units subcutaneously once for fingerstick blood glucose [221] - [260] mg/dL 4 units subcutaneously once for fingerstick blood glucose [261] - [300] mg/dL 5 units subcutaneously once for fingerstick blood glucose [301] - [350] mg/dL 6 units subcutaneously once for fingerstick blood glucose [351] - [400] mg/dL Notify provider of glucose levels LESS than [70] and GREATER than [400] Given 01/14/2025 12:41 PM EDT 1 Units Abdominal Tissue Given 01/13/2025 1:05 PM EDT 1 Units Ab dominal Tissue isosorbide mononitrate (IMDUR) 24 hr tablet 30 mg 30 mg Daily, oral, First dose on Thu01/11/25 at 1715, DO NOT CRUSH THIS DOSAGE FORM Given 01/14/2025 8:43 AM EDT 30 mg Given 01/13/2025 8:30 AM EDT 30 mg Given 01/12/2025 9:33 AM EDT 30 mg labetaloL (TRANDATE, NORMODYNE) injection 10 mg 10 mg Every 4 hours PRN, intravenous, hypertension (specify sbp/dbp in prn comments), (SBP greater than 170), Starting on Thu01/11/25 at 1706, Hold for systolic BP < 90 mmHg or for HR < 50 BPM labetaloL (TRANDATE, NORMODYNE) injection 20 mg 20 mg Once, intravenous, On Thu01/11/25 at 1405, For 1 dose, Hold for systolic BP < 90 mmHg or for HR < 50 BPM Given 01/11/2025 2:16 PM EDT 20 mg melatonin tablet 3 mg 3 mg Every Night PRN, oral, insomnia, Starting on Thu01/11/25 at 1544 metoclopramide (REGLAN) tablet 10 mg 10 mg 3 times daily before meals, oral, First dose on Thu01/11/25 at 1715 Given 01/14/2025 12:40 PM EDT 10 mg Given 01/14/2025 8:30 AM EDT 10 mg Given 01/13/2025 11:30 AM EDT 10 mg ondansetron (ZOFRAN) injection 4 mg 4 mg Once, intravenous, On Thu01/11/25 at 1130, For 1 dose, For IV push, give over 2 - 5 minutes. Given 01/11/2025 11:30 AM EDT 4 mg ondansetron (ZOFRAN) injection 8 mg 8 mg Every 8 hours PRN, intravenous, nausea, vomiting, Starting on Thu01/11/25 at 1712, For IV push, give over 2 - 5 minutes. Given 01/12/2025 11:35 AM EDT 8 mg polyethylene glycol (GLYCOLAX) packet 17 g 17 g Daily as needed, oral, constipation, Starting on Thu01/11/25 at 1546, Bowel Regimen - for prevention of constipation. prasugreL HCl (EFFIENT) tablet 10 mg 10 mg Daily, oral, First dose on Thu01/11/25 at 1715 Given 01/14/2025 10:28 AM EDT 10 mg Given 01/13/2025 8:28 AM EDT 10 mg Given 01/11/2025 6:01 PM EDT 10 mg promethazine (PHENERGAN) 12.5 mg in sodium chloride 0.9 % (NS) 50 mL IVPB (Immediate Use Only) 12.5 mg Once, intravenous, at 150 mL/hr, On Thu01/11/25 at 1525, For 1 dose IVPB Started 01/11/2025 4:06 PM EDT 12.5 mg 150 mL/hr promethazine (PHENERGAN) 12.5 mg in sodium chloride 0.9 % (NS) 50 mL IVPB (Immediate Use Only) 12.5 mg Every 6 hours PRN, intravenous, at 150 mL/hr, nausea, vomiting, second line for N/V, Starting on Thu01/11/25 at 1710 IVPB Started 01/12/2025 2:12 PM EDT 12.5 mg 150 mL/hr sevelamer (RENAGEL) tablet 800 mg 800 mg 3 times daily with meals, oral, First dose on Thu01/11/25 at 1715, * DO NOT CRUSH THIS DOSAGE FORM * Given 01/14/2025 12:40 PM EDT 800 mg Given 01/14/2025 8:42 AM EDT 800 mg Given 01/13/2025 11:17 PM EDT 800 mg sodium chloride flush 10 mL 10 mL As needed, intravenous, line care, Starting on Thu01/11/25 at 1135 sucralfate (CARAFATE) tablet 1 g 1 g 2 times daily, oral, First dose on Thu01/11/25 at 2100, If patient cannot swallow tablet, allow the tablet to disolve in 5 mL water for about 2 minutes. Given 01/14/2025 8:42 AM EDT 1 g Given 01/13/2025 11:17 PM EDT 1 g Given 01/13/2025 8:30 AM EDT 1 g vancomycin (VANCOCIN) 2,000 mg in sodium chloride 0.9 % (NS) 500 mL IVPB 2,000 mg Once, intravenous, Administer over 150 Minutes, On Thu01/11/25 at 1525, For 1 dose, Please choose an indication: Skin/Soft Tissue Infection IVPB Started 01/11/2025 5:06 PM EDT 2,000 mg 200 mL/hr venlafaxine XR (EFFEXOR-XR) 24 hr capsule 37.5 mg 37.5 mg Daily, oral, First dose on Thu01/11/25 at 1715, * DO NOT CRUSH THIS DOSAGE FORM * Given 01/14/2025 8:43 AM EDT 37.5 mg Given 01/13/2025 8:30 AM EDT 37.5 mg Given 01/12/2025 9:33 AM EDT 37.5 mg documented in this encounter Active and Recently Administered Medications Times are shown in EDT. Scheduled Medication Order 01/12/2025 01/13/2025 01/14/2025 amLODIPine (NORVASC) tablet 10 mg 10 mg Daily, oral, First dose on Thu01/11/25 at 1715, Antihypertensive - Check BP - Check Pulse 0934 (Given - Provider: Brian Collins RN) 0830 (Given - Provider: Yvonne Hawk, BENNETT) 0843 (Given - Provider: Shanique Amaya, BENNETT) aspirin EC tablet 81 mg 81 mg Daily, oral, First dose on Thu01/11/25 at 1715, * DO NOT CRUSH THIS DOSAGE FORM * 0934 (Given - Provider: Brian Collins RN) 0831 (Given - Provider: Yvonne Hawk, BENNETT) 0843 (Given - Provider: Shanique Amaya, BENNETT) atorvastatin (LIPITOR) tablet 40 mg 40 mg Every Night, oral, First dose on Thu01/11/25 at 2100 0014 (Given - Provider: Rocio Nelson, BENNETT)2002 (Given - Provider: Neal Narayan, BENNETT) 2317 (Given - Provider: Flora Paulino, BENNETT) calcitonin (salmon) (MIACALCIN) nasal spray 1 spray 1 spray Daily, one nostril, First dose on Thu01/11/25 at 1715 1111 (Not Given - Provider: Brian Collins RN - Reason: Medication/ Dose Unavailable) 1130 (Given - Provider: Yvonne Hawk, BENNETT) 0851 (Given - Provider: Shanique Amaya, BENNETT) calcium carbonate (OS-JERRELL) tablet 1250 mg (elemental calcium 500 mg) 1,500 mg Daily, oral, First dose on Thu01/11/25 at 1715, Each tablet contains 1250 mg of calcium carbonate which equals 500 mg of elemental calcium. 0934 (Given - Provider: Brian Collins RN) 0829 (Given - Provider: Yvonne Hawk, BENNETT) 0843 (Given - Provider: Shanique Amaya, BENNETT) carvediloL (COREG) tablet 12.5 mg 12.5 mg 2 times daily, oral, First dose on Thu01/11/25 at 2100, Hold for systolic BP < 90 mmHg or for HR < 50 BPM 0014 (Given - Provider: Rocio Nelson RN)0933 (Given - Provider: Brian Collins RN)2001 (Given - Provider: Neal Narayan RN) 0831 (Given - Provider: Yvonne Hawk, BENNETT)231 (Given - Provider: Flora Paulino, BENNETT) 0843 (Given - Provider: Shanique Amaya, BENNETT) famotidine (PEPCID) tablet 20 mg 20 mg 2 times daily, oral, First dose on Thu01/11/25 at 2100, Pharmacist to renally dose if CrCl is less than 50 mL/min or on CRRT. 0014 (Given - Provider: Rocio Nelson RN)0933 (Given - Provider: Brian Collins RN)2001 (Given - Provider: Neal Narayan, BENNETT) 0829 (Given - Provider: Yvonne Hawk, BENNETT)231 (Given - Provider: Flora Paulino, BENNETT) 0843 (Given - Provider: Shanique Amaya, BENNETT) gabapentin (NEURONTIN) capsule 300 mg 300 mg Every Night, oral, First dose on Thu01/11/25 at 2100 0014 (Given - Provider: Rocio Nelson RN)2001 (Given - Provider: Neal Narayan RN) 231 (Given - Provider: Flora Paulino, BENNETT) insulin lispro (HUMALOG, ADMELOG) injection 0-6 Units 0-6 Units 4 times daily (before meals and nightly), subcutaneous, First dose on Thu01/11/25 at 1745, If Blood Sugar is less than 180 between [id number], DO NOT give corrective insulin unless otherwise ordered. Corrective Scale A 0 units for fingerstick blood glucose LESS than 140 mg/dL 1 unit subcutaneously once for fingerstick blood glucose [140] - [180] mg/dL 2 units subcutaneously once for fingerstick blood glucose [181] - [220] mg/dL 3 units subcutaneously once for fingerstick blood glucose [221] - [260] mg/dL 4 units subcutaneously once for fingerstick blood glucose [261] - [300] mg/dL 5 units subcutaneously once for fingerstick blood glucose [301] - [350] mg/dL 6 units subcutaneously once for fingerstick blood glucose [351] - [400] mg/dL Notify provider of glucose levels LESS than [70] and GREATER than [400] 0616 (Not Given - Provider: Neal Narayan RN - Reason: Within Medication Parameters)1145 (Not Given - Provider: Brian Collins RN - Reason: Order parameters not met - Comment: BS 106)1707 (Not Given - Provider: Brian Collins RN - Reason: Order parameters not met)2120 (Not Given - Provider: Neal Narayan RN - Reason: Within Medication Parameters) 0602 (Not Given - Provider: Neal Narayan RN - Reason: Within Medication Parameters)1305 (Given - Provider: Yvonne Hawk RN)1906 (Not Given - Provider: Yvonne Hawk RN - Reason: Other (with Comment) - Comment: patient still in dialysis)2130 (Not Given - Provider: Flora Paulino RN - Reason: Order parameters not met) 0614 (Not Given - Provider: Flora Paulino RN - Reason: Order parameters not met)1241 (Given - Provider: Shanique Amaya RN) isosorbide mononitrate (IMDUR) 24 hr tablet 30 mg 30 mg Daily, oral, First dose on Thu01/11/25 at 1715, DO NOT CRUSH THIS DOSAGE FORM 0933 (Given - Provider: Brian Collins RN) 0830 (Given - Provider: Yvonne Hawk RN) 0843 (Given - Provider: Shanique Amaya RN) metoclopramide (REGLAN) tablet 10 mg 10 mg 3 times daily before meals, oral, First dose on Thu01/11/25 at 1715 0934 (Given - Provider: Brian Collins RN)1136 (Given - Provider: Brian Collins RN)1659 (Given - Provider: Brian Collins RN) 0829 (Given - Provider: Yvonne Hawk RN)1130 (Given - Provider: Yvonne Hawk, BENNETT)1907 (Not Given - Provider: Yvonne Hawk RN - Reason: Other (with Comment) - Comment: patient in dialysis) 0830 (Given - Provider: Shanique Amaya RN)1240 (Given - Provider: Shanique Amaya RN) prasugreL HCl (EFFIENT) tablet 10 mg 10 mg Daily, oral, First dose on Thu01/11/25 at 1715 1111 (Not Given - Provider: Brian Collins RN - Reason: Medication/ Dose Unavailable - Comment: Pharmacy never sent medication after request) 0828 (Given - Provider: Yvonne Hawk RN) 1028 (Given - Provider: Shanique Amaya RN) sevelamer (RENAGEL) tablet 800 mg 800 mg 3 times daily with meals, oral, First dose on Thu01/11/25 at 1715, * DO NOT CRUSH THIS DOSAGE FORM * 0941 (Not Given - Provider: Brian Collins RN - Reason: Patient/family refused)1142 (Given - Provider: Brian Collins RN)1701 (Given - Provider: Brian Collins RN) 0831 (Given - Provider: Yvonne Hawk RN)1300 (Given - Provider: Yvonne Hawk RN)2317 (Given - Provider: Flora Paulino, BENNETT) 0842 (Given - Provider: Shanique Amaya RN)1240 (Given - Provider: Shanique Amaya RN) sucralfate (CARAFATE) tablet 1 g 1 g 2 times daily, oral, First dose on Thu01/11/25 at 2100, If patient cannot swallow tablet, allow the tablet to disolve in 5 mL water for about 2 minutes. 0014 (Given - Provider: Rocio Nelson RN)0933 (Given - Provider: Brian Collins RN)2002 (Given - Provider: Neal Narayan RN) 0830 (Given - Provider: Yvonne Hawk RN)2317 (Given - Provider: Flora Paulino, BENNETT) 0842 (Given - Provider: Shanique Amaya RN) venlafaxine XR (EFFEXOR-XR) 24 hr capsule 37.5 mg 37.5 mg Daily, oral, First dose on Thu01/11/25 at 1715, * DO NOT CRUSH THIS DOSAGE FORM * 0933 (Given - Provider: Brian Collins, RN) 0830 (Given - Provider: Yvonne Hawk, BENNETT) 0843 (Given - Provider: Shanique Amaya, BENNETT) PRN Medication Order 01/12/2025 01/13/2025 01/14/2025 acetaminophen (TYLENOL) tablet 1,000 mg 1,000 mg Every 6 hours PRN, oral, mild pain (1-3), headache, fever greater than or equal to 38C, Starting on Thu01/11/25 at 1546, 1st line analgesic bisacodyL (DULCOLAX) EC tablet 10 mg(Linked Group 1) 10 mg Daily as needed, oral, constipation, Starting on Thu01/11/25 at 1544, 1st line for treatment of constipation - give scheduled if no bowel movement in past 24 hours. See suppository order and give rectally if not able to take PO. bisacodyL (DULCOLAX) suppository 10 mg(Linked Group 1) 10 mg Daily as needed, rectal, constipation, Starting on Thu01/11/25 at 1544, 1st line for treatment of constipation - give scheduled if no bowel movement in past 24 hours. Give suppository rectally if unable to take PO. dextrose 50% (D50W) injection 25 g 25 g Every 15 min PRN, intravenous, low blood glucose (specify value in prn comments), less than 41 mg/dL or 41-69 mg/dL and unable to take PO, Starting on Thu01/11/25 at 1712, Repeat blood glucose every 15 minutes until blood glucose greater than 70 mg/dL. Call Provider if not resolved after 2 treatments Repeat BS in 1 hour, retime for 1 hour after blood sugar greater than 70 mg/dL If less than 41: Repeat Finger stick within 5 minutes with same machine Send serum glucose level: Do not wait on lab to treat diphenhydrAMINE (BENADRYL) capsule 25 mg 25 mg 3 times daily PRN, oral, itching, Starting on Thu01/11/25 at 1708 glucagon injection 1 mg 1 mg Every 15 min PRN, intraMUSCULAR, low blood glucose (specify value in prn comments), For Patients without IV access and blood glucose 41-69 mg/dL AND unable to take PO OR Less than 41 mg/dL, Starting on Thu01/11/25 at 1712, Caution: glucagon . Roll patient on their side when administering to prevent aspiration. Call Provider if not resolved after 2 treatments Repeat BS in 1 hour, retime for 1 hour after blood sugar greater than 70 mg/dL glucose chew tab 16 g 16 g Every 15 min PRN, oral, low blood glucose (specify value in prn comments), 41-69 mg/dL, Starting on Thu01/11/25 at 1712, For Patients who can take oral AND blood glucose 41-69 mg/dL Give 4 Tabs every 15 minutes. Recheck blood glucose every 15 minutes and repeat 15 grams of carbohydrates until blood glucose is above 70 mg/dL. Give Meal or Snack Call Provider if not resolved after 3 treatments Repeat BS in 1 hour, retime for 1 hour after blood sugar greater than 70 mg/dL hydrALAZINE (APRESOLINE) injection 10 mg 10 mg Every 6 hours PRN, intravenous, hypertension (sbp greater than 160), Starting on Thu01/11/25 at 1544, Hold if SBP < 100 mmHg, DBP < 50 mmHg, or patient is on pressor. Look-alike/Sound-alike medication HYDROcodone-acetaminophen (NORCO) 5-325 mg per tablet 1 tablet 1 tablet Every 6 hours PRN, oral, moderate pain (4-6), Starting on Thu01/11/25 at 1546, 1st line analgesic 0217 (Given - Provider: Rocio Neslon RN)0934 (Given - Provider: Brian Collins RN) 0840 (Given - Provider: Yvonne Hawk, BENNETT)2322 (Given - Provider: Flora Paulino, BENNETT) labetaloL (TRANDATE, NORMODYNE) injection 10 mg 10 mg Every 4 hours PRN, intravenous, hypertension (specify sbp/dbp in prn comments), (SBP greater than 170), Starting on Thu01/11/25 at 1706, Hold for systolic BP < 90 mmHg or for HR < 50 BPM melatonin tablet 3 mg 3 mg Every Night PRN, oral, insomnia, Starting on Thu01/11/25 at 1544 ondansetron (ZOFRAN) injection 8 mg 8 mg Every 8 hours PRN, intravenous, nausea, vomiting, Starting on Thu01/11/25 at 1712, For IV push, give over 2 - 5 minutes. 1135 (Given - Provider: Brian Collins RN) polyethylene glycol (GLYCOLAX) packet 17 g 17 g Daily as needed, oral, constipation, Starting on Thu01/11/25 at 1546, Bowel Regimen - for prevention of constipation. promethazine (PHENERGAN) 12.5 mg in sodium chloride 0.9 % (NS) 50 mL IVPB (Immediate Use Only) 12.5 mg Every 6 hours PRN, intravenous, at 150 mL/hr, nausea, vomiting, second line for N/V, Starting on Thu01/11/25 at 1710 1412 (IVPB Started - Provider: Brian Collins RN)1413 (IVPB Stopped - Provider: Brian Collins RN) sodium chloride flush 10 mL 10 mL As needed, intravenous, line care, Starting on Thu01/11/25 at 1135 Linked Groups Order Group 1: bisacodyL (DULCOLAX) EC tablet 10 mgJump to med 10 mg Daily as needed, oral, constipation, Starting on Thu01/11/25 at 1544, 1st line for treatment of constipation - give scheduled if no bowel movement in past 24 hours. See suppository order and give rectally if not able to take PO. Or bisacodyL (DULCOLAX) suppository 10 mgJump to med 10 mg Daily as needed, rectal, constipation, Starting on Thu01/11/25 at 1544, 1st line for treatment of constipation - give scheduled if no bowel movement in past 24 hours. Give suppository rectally if unable to take PO. 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
--- OUTSIDE RECORDS SUMMARY | 2025-02-08 15:54 | XMS_ITS | Encounter Summary ---
Author Organization [employer] ([place], [place], [place], [place]) Address [address] [place] [address] Care Team Providers Care Fire Truck Driver Name Role Phone Wally Yoo MD Primary Care Provider [phone] Reason for Visit * Reason Comments Vascular Access Problem * Auth/Cert (Routine) Specialty Diagnoses / Procedures Referred By Meg kumar Referred To Contact Diagnoses Surgical site infection [place] [address] [facility] [address] [place] [phone] Phone: tel: fax: [place] [address] Inter[facility] [address] [place] [address] Phone: tel: fax: Referral ID Status Reason Start Date Expiration Date Visits Re quested Visits Authorized [id number] 1 1 Encounter Details Date Type Department Care Team (Late st Contact Info) Description 02/08/2025 3:54 PM EDT - 02/13/2025 8:47 PM EDT Hospital Encounter [place] [address] [facility] [address] [place] [phone] Yuri Ocampo DO [address] [place] [address] Olegario Varghese PA-C [address] [facility] [address] [place] [address] Briana Araiza MD [address] [facility] [address] [id number] Joo Melendrez MD [address] [facility] [address] [id number] Surgical site infection (Primary Dx) Discharge Disposition: Assisted Care Social History Tobacco Use Types Packs/Day [...] shut off services in your home? No 02/09/2025 Interpersonal Safety Answer Date Record ed How often does anyone, josué kay family and friends, physically hurt you? Never 02/09/2025 How often does anyone, josué kay family and friends, insult or talk down to you? Never 02/09/2025 How often does anyone, josué kay family and friends, threaten you with harm? Never 02/09/2025 How often does anyone, priscillademond kay family and friends, scream or curse at you? Never 02/09/2025 Housing Stability Answer Date Recorded What is your living situation today? I have a [facility] place to live 02/09/[address] you li ve. Do you have problems with any of the following? None of the above 02/09/2025 Food Insecurity Answer Date Recorded Within the past 12 months, y ou worried that your food would run out before you got money to buy more. Never true 02/09/2025 Within the past 12 months, t he food you bought just didn't last and you didn't have money to get more. Never true 02/09/2025 Transportation Needs Answer Date Record ed In the past 12 months, has l ack of reliable transportation kept you from medical appointments, meetings, work or from getting things needed for daily living? No 02/09/2025 Financial Resource Strain Answer Date R ecorded How hard is it for you to pa y for the very basics like food, housing, medical care, and heating? Would you say it is: Not hard at all 02/09/2025 Employment Answer Date Recorded Do you want help finding or keeping work or a job? I do not need or want help 02/09/2025 Family and Community Support Answer Emeterio e Recorded If for any reason you need h elp with day-to-day activities such as bathing, preparing meals, shopping, managing finances, etc., do you get the help you need? I get all the help I need 02/09/2025 Feeling Lonely or Isolated 0 02/09 Educational Attainment Answer Date Earl rded Do you speak a language other than [place]i at [facility]? No 02/09/2025 Do you want help with school or training? For example, starting or completing job training or getting a high school diploma, GED or equivalent. No 02/09/2025 Physical Activity Answer Date Recorded Number of minutes of exercise per week 0 02/09/2025 Self Management Answer Date Recorded Because of [...] used prescription drugs for non-medical reasons? Never 02/09/2025 How many times in the past year have you used [place] legal drugs? Never 02/09/2025 Mental Health Answer Date Recorded Calculation of above two rows 0 Comments Unknown Sex and Gender Information Value Date Recorded Sex Assigned at Female 02/09/2025 2:55 AM CDT Legal Sex Female 5:37 PM CDT Gender Identity Female 02/09/2025 2:55 AM CDT Sexual Orientation Not on file documented as of this encounter Last Filed Vital Signs Vital Sign Reading Time Taken Comments Blood Pressure 120/70 02/13/2025 11:25 AM EDT Pulse 74 02/13/2025 11:25 AM EDT Temperature 36.6 C (97.9 F) 02/13/2025 11:25 AM EDT Respiratory Rate 17 02/13/2025 11:25 AM EDT Oxygen Saturation 96% 02/13/2025 11:25 AM EDT Inhaled Oxygen Concentration - - Weight 121.6 kg (268 lb) 02/08/2025 3:58 PM EDT Height 167.6 cm (5' 6 ) 02/08/2025 3:58 PM EDT Body Mass Index 43.26 02/08/2025 3:58 PM EDT documented in this encounter Discharge Summaries * Briana Araiza MD - 02/13/2025 9:52 AM EDT DISCHARGE SUMMARY Internal Medicine, [facility] Patient Name: Carla Burkett : 1970 Date of Admission: 02/08/2025 Date of Discharge: 02/13/2025 Primary Care Physician: Wally Yoo MD Consultations: Vascular surgery, nephrology, infectious disease Discharge Diagnoses: Right upper extremity cellulitis AV fistula incision site infection ESRD on HD Diabetes with hyperglycemia Reason for Admission: Carla Burkett is a 54 y.o. female with a history of who presents to [facility] in [place], [place] for further evaluation and management of possible wound infection. He recently had fistula placed in her right arm by vascular surgery.She states that part of the scab off her site and when she went to the dialysis clinic today they were concerned and sent her here for evaluation. Hospital Course: Vascular surgery was consulted and recommended antibiotics only, no surgical debridement. They signed off and recommended outpatient follow-up. Infectious disease followed along and manage antibiotics. Wound cultures grew MRSA and Staph epidermidis. Recommendations have been made for IV antibiotics after dialysis sessions as an outpatient with vancomycin. Nephrology followed along and managed her HD 3 times a week. She will receive dialysis prior to discharge today. Patient is medically stable, no further inpatient needs at this time and is appropriate to return to her living facility. Studies Performed: CT right upper extremity 02/08: Abnormal soft tissue prominence with surrounding stranding in the antecubital region, superficial cellulitis, no abscess or gas Upper extremity ultrasound 02/09: Patent brachiocephalic AVF Procedures Performed: None Discharge Medications: Your medication list CONTINUE taking these medications [...] 1 capsule (300 mg total) by mouth nightly for 3 days. Max Daily Amount: 300 mg 3 capsule 0 insulin aspart U-100 100 unit/mL (3 [...] (six) hours as needed for congestion. 0 Where to Get Your Medications These [facility] [place] [facility] [address] [facility] [id number] gabapentin 300 MG capsule Physical Exam Constitutional: Appearance: Normal appearance. She is obese. HENT: Head: Normocephalic. Eyes: Conjunctiva/sclera: Conjunctivae normal. Cardiovascular: Rate and Rhythm: Normal rate and regular rhythm. Heart sounds: No murmur heard. Pulmonary: Effort: No respiratory distress. Breath sounds: Normal breath sounds. No wheezing. Abdominal: General: Bowel sounds are normal. Palpations: Abdomen is soft. Tenderness: There is no abdominal tenderness. Musculoskeletal: Comments: S/p TMA Skin: Comments: Incision RUE not examined today Neurological: General: No focal deficit present. Mental Status: She is alert and oriented to person, place, and time. Psychiatric: Mood and Affect: Mood normal. Behavior: Behavior normal. Discharge Instructions Discharge Diet: Renal diet Discharge Activity: No restrictions Discharge Follow UP: PCP, nephrology, vascular surgery Current Code Status Full code Time Spent: I have spent 36 minutes discharging this patient including time spent discussing with nursing and case management, as well as time spent educating patient on diagnoses and medication changes. Electronically signed by Briana Araiza MD 02/13/25 10:00 AM EDT documented in this encounter Discharge Instructions * Discharge Instr - Activity* Yvonne Hawk RN - 02/13/2025 2:35 PM EDT As tolerated * Discharge Instr - Diet* Yvonne Hawk RN - 02/13/2025 2:36 PM EDT Renal diet * Attachments The following attachments cannot be sent through Care Everywhere. * Wound Infection [id number]-[id number] ([place]) documented in this encounter Medications at Time [...] 1 capsule (300 mg total) by mouth nightly for 3 days. Max Daily Amount: 300 mg 3 capsule 02/13/2025 vancomycin (VANCOCIN) 1000 mg in sodium chloride 0.9 % (NS) 250 mL ADD EASE IVPB Infuse 1,000 mg into a venous catheter 3 (three) times a week after dialysis THU/THU/THU for 14 days. 02/13/2025 documented as of this encounter Progress Notes * Jami Munoz PharmD BCPS - 02/13/2025 3:14 PM EDT Clinical Rx Vancomycin Progress Note HPI: 54 y.o.female [facility] from dialysis clinic due to bleeding and possible infection of AV fistula. Pt had fistula creation on 01/10/25 at this facility. Pt received dialysis today through tunneled CV catheter in neck. PMH of DM, ESRD on HD, CAD, HTN and HLD. Concern for surgical site infection. Consult: Vancomycin Consulting: SHERLY Anderson Indication: Skin-Soft Tissue Infection (SSTI) Goal: 12-18 mg/L Anti-infectives: Vancomycin Recent Labs Lab(s) Units 02/13/25 0508 02/11/25 0531 02/09/25 0441 02/08/25 1600 BUN mg/dL 35.2* 19.4 29.8* 21.5* CREATININE mg/dL 6.77* 4.17* 4.72* 3.62* WBC K/??L 8.1 8.7 8.4 8.9 SEDRATE mm/HR -- -- -- 35* CRP mg/L -- 11.0* -- 18.6* Renal function: ESRD on HD MWF Microbiology: 02/08 Blood culture x 2: NGTD 02/08 Wound culture: moderate growth MRSA, S epidermidis Vancomycin Levels: 02/138 Random - 18.4 mcg/mL A/P: Vancomycin level resulted at 18.4 mcg/mL on 1000 mg IV MWF post-HD. Continue vancomycin as ordered. Repeat vancomycin level in ~1 week if patient remains admitted. Noted plans for discharge with OP vancomycin after HD. Pharmacy will continue follow. Thank you, Jami Munoz PharmD, BCPS, BCCCP #[id number] * Delores Hartley RN - 02/13/2025 12:46 PM EDT 02/13/25 1245 Final Discharge Plan Patient appealing discharge? No Does the patient have the ability to fill and receive their discharge medications? Yes Patient returning to prior living situation? Yes Discharge Disposition Corporate Director Care Agency Type SNF SNF Name and Number [facility] This CM met with the pt to discuss the DC plan. Pt at HD today. We discussed the discharge plan which is for pt to return to [facility]. This CM informed the pt that an attempted was made to set up the transport, however due to pt not being fully discharge [facility] [facility] did not allow this CM to setup hospital discharge transport in advance. This CM called Esha in admission and explained to herthe barrier. No cut off time for the pt to arrive at the facility. Patient stated that if transportcould not be set up for evening, she is comfortable with being transported by [facility]. Her last discharge from [facility] was by lyft. This CM spoke with Director Veronica. Then called Metal Coater Operator Edilia. Explained to her the situation and she agreed to assist. Transportation company: [facility] [facility] [facility] [phone]. Discharge Address: [place] [address]. Facility # [phone] Pt has WC at bedside and both Prothesis. The Pt is in agreement with the discharge plan. CM also updated the Nurse and provided the N2N report# [phone]. The Nurse is to call the housesupervisor once the pt has returned from . * Nataliya Cain MD - 02/13/2025 12:44 PM EDT Images from the original note were not included. Subjective: Patient was seen and examined with all infection control measures. NAD, afebrile. Plan for CASTING OPERATOR today. Hospital Course: Carla Burkett is a 54 y.o. female well-known to my practice with history of end-stage renaldisease on chronic hemodialysis on a Thursday, and Thursday schedule who had recently AV fistula creation. It was noted that the surgical site was slightly inflamed last week and the patient was started on p.o. doxycycline. A scab was formed apparently however the patient had picked on the scab leading to what appears to be infected ulcer at the vascular access site. Patient [facility] for further evaluation by vascular surgery and possible need for IV antibiotic initiation. Nephrology consult was requested by the primary team. Allergies: Sulfa (Sulfonamide Antibiotics) and Tylox [Oxycodone-Acetaminophen] Home Medications: Prior to Admission medications Medication Sig Start Date End Date Taking? Authorizing Provider acetaminophen (TYLENOL) 500 MG tablet Take 1 tablet (500 mg total) by mouth every 6 (six) hours as needed for pain. Yes Historical Provider, amLODIPine (NORVASC) 10 MG tablet Take 1 tablet (10 mg total) by mouth daily. 12/12/22 Yes Historical Provider, aspirin 81 MG EC tablet Take 1 tablet (81 mg total) by mouth daily. 12/01/22 Yes Historical Provider, atorvastatin (LIPITOR) 40 MG tablet Take 1 tablet (40 mg total) by mouth nightly. 12/03/22 Yes Historical Provider, baclofen (LIORESAL) 5 mg tab Take 1 tablet (5 mg total) by mouth every night as needed for muscle spasms. Yes Historical Provider, calcitonin, salmon, (MIACALCIN) 200 unit/actuation nasal spray [place] 1 spray into one nostril daily. Yes Historical Provider, calcium carbonate 600mg (Caltrate) 600 mg calcium (1,500 mg) tab Take 1 tablet (1,500 mg total) by mouth daily. 04/10/24 Yes Historical Provider, carvediloL (COREG) 12.5 MG tablet Take 1 tablet (12.5 mg total) by mouth 2 (two) times daily. 12/06/22 Yes Historical Provider, diphenhydrAMINE (BENADRYL) 25 mg tablet Take 1 tablet (25 mg total) by mouth 3 (three) times daily as needed for itching. Yes Historical Provider, famotidine (PEPCID) 20 MG tablet Take 1 tablet (20 mg total) by mouth 2 (two) times daily. Yes Historical Provider, fexofenadine (DANIELLE) 180 MG tablet Take 1 tablet (180 mg total) by mouth daily. Yes Historical Provider, gabapentin (NEURONTIN) 300 MG capsule Take 1 capsule (300 mg total) by mouth nightly. 02/04/24 Yes Historical ProviderMD insulin aspart U-100 (NovoLOG) 100 unit/mL (3 mL) inpn Inject under the skin 3 (three) times daily before meals Sliding scale. Yes Historical Provider, isosorbide mononitrate (IMDUR) 30 MG 24 hr tablet Take 1 tablet (30 mg total) by mouth daily. Yes Historical Provider, metoclopramide (REGLAN) 10 MG tablet Take 1 tablet (10 mg total) by mouth 3 (three) times daily before meals. Yes Historical Provider, ondansetron (ZOFRAN) 4 MG tablet Take 1 tablet (4 mg total) by mouth every 8 (eight) hours as needed for nausea. Yes Historical Provider, prasugreL (EFFIENT) 10 mg tab tablet Take 1 tablet (10 mg total) by mouth daily. 02/10/24 Yes Historical ProviderMD pseudoephedrine (Sudogest) 60 MG tablet Take 1 tablet (60 mg total) by mouth every 6 (six) hours asneeded for congestion. Yes Historical Provider, sevelamer (RENAGEL) 800 MG tablet Take 1 tablet (800 mg total) by mouth 3 (three) times daily with meals. Yes Historical Provider, venlafaxine (Effexor XR) 37.5 MG 24 hr capsule Take 1 capsule (37.5 mg total) by mouth daily. Yes Historical Provider, epoetin gia (Procrit) 20,000 unit/2 mL soln injection Inject 2 mLs (20,000 Units total) under the skin once a week. Historical Provider, polyethylene glycol (MIRALAX) 17 gram/dose powder Take 17 g by mouth daily. Historical Provider, Current Medications: Current Facility-Administered Medications: acetaminophen (TYLENOL) tablet 500 mg, 500 mg, oral, Q6H PRN, Briana Araiza MD, 500 mg at 02/10/25 0413 amLODIPine (NORVASC) tablet 10 mg, 10 mg, oral, Daily, Olegario Varghese PA-C, 10 mg at 02/13/25 0908 aspirin EC tablet 81 mg, 81 mg, oral, Daily, Olegario Varghese PA-C, 81 mg at 02/13/25 0908 atorvastatin (LIPITOR) tablet 40 mg, 40 mg, oral, Every Night, Olegario Varghese PA-C, 40 mg at 02/12/252047 baclofen (LIORESAL) tablet 5 mg, 5 mg, oral, Every Night PRN, Briana Araiza MD, 5 mg at 02/12/252046 bisacodyL (DULCOLAX) EC tablet 10 mg, 10 mg, oral, Daily PRN OR bisacodyL (DULCOLAX) suppository 10 mg, 10 mg, rectal, Daily PRN, Olegario Varghese PA-C carvediloL (COREG) tablet 12.5 mg, 12.5 mg, oral, BID, Olegario Varghese PA-C, 12.5 mg at 02/13/25907 dextrose 50% (D50W) injection 25 g, 25 g, intravenous, Q15 Min PRN, Olegario Varghese PA-C gabapentin (NEURONTIN) capsule 300 mg, 300 mg, oral, Every Night, Olegario Varghese PA-C, 300 mg at 02/12/252046 glucagon injection 1 mg, 1 mg, intraMUSCULAR, Q15 Min PRN, Olegario Varghese PA-C glucose chew tab 16 g, 16 g, oral, Q15 Min PRN, Olegario Varghese PA-C heparin injection 5,000 Units, 5,000 Units, subcutaneous, Q8H, Arabella Luu, BRUSH HEAD MAKER, 5,000 Units at 02/13/25 1220 hydrALAZINE (APRESOLINE) injection 10 mg, 10 mg, intravenous, Q6H PRN, Olegario Varghese PA-C insulin glargine-yfgn (SEMGLEE) solution 15 Units, 15 Units, subcutaneous, QAM, Briana Araiza MD, 15Units at 02/13/25 0909 insulin lispro (HUMALOG, ADMELOG) injection 0-6 Units, 0-6 Units, subcutaneous, 4x Daily AC, SHERLY Young, 5 Units at 02/13/25 1219 isosorbide mononitrate (IMDUR) 24 hr tablet 30 mg, 30 mg, oral, Daily, Olegario Varghese PA-C, 30 mg at 02/13/25 0908 lidocaine (LIDODERM) patch 4%, 1 patch, transdermal, Q24H, DAMIEN Chatterjee, 1 patch at 02/13/25 0634 melatonin tablet 3 mg, 3 mg, oral, Every Night PRN, Olegario Varghese PA-C ondansetron (ZOFRAN-ODT) disintegrating tablet 4 mg, 4 mg, oral, Q8H PRN OR ondansetron (ZOFRAN) injection 4 mg, 4 mg, intravenous, Q8H PRN, Olegario Varghese PA-C, 4 mg at 02/12/25 2159 polyethylene glycol (GLYCOLAX) packet 17 g, 17 g, oral, Daily PRN, Olegario Varghese PA-C prasugreL HCl (EFFIENT) tablet 10 mg, 10 mg, oral, Daily, Olegario Varghese PA-C, 10 mg at 02/13/25 1101 promethazine (PHENERGAN) 12.5 mg in sodium chloride 0.9 % (NS) 50 mL IVPB (Immediate Use Only), 12.5 mg, intravenous, Q6H PRN, Pablo Yuan PA-C, IVPB Stopped at 02/11/25 0113 promethazine (PHENERGAN) tablet 25 mg, 25 mg, oral, Q6H PRN, Pablo Yuan PA-C sevelamer (RENAGEL) tablet 800 mg, 800 mg, oral, TID with meals, Olegario Varghese PA-C, 800 mg at 02/13/25 1220 traMADoL (ULTRAM) tablet 50 mg, 50 mg, oral, Q6H PRN, Briana Araiza MD, 50 mg at 02/13/25 0915 vancomycin (VANCOCIN) 1,000 mg in sodium chloride 0.9% (NS) non-DEHP 250 mL IVPB, 1,000 mg, intravenous, Once per day on Thursday, Olegario Varghese PA-C, IVPB Stopped at 02/10/252000 venlafaxine XR (EFFEXOR-XR) 24 hr capsule 37.5 mg, 37.5 mg, oral, Daily, Olegario Varghese PA-C, 37.5mg at 02/13/25 0909 Review of Systems Constitutional: Positive for fatigue. HENT: Negative. Eyes: Negative. Respiratory: Negative. Cardiovascular: Positive for leg swelling. Gastrointestinal: Negative. Endocrine: Negative. Genitourinary: Negative. Musculoskeletal: Negative. Skin: Positive for wound (right AVF site with infected ulcer). Allergic/Immunologic: Negative. Neurological: Negative. Hematological: Negative. Psychiatric/Behavioral: Negative. All other systems reviewed and are negative. Vitals Blood pressure 127/76, pulse 72, temperature 97.7 ??F (36.5 ??C), resp. rate 18, height 1.676 m (5'6 ), weight 121.6 kg (268 lb), SpO2 97%. Physical Exam Vitals and nursing note reviewed. Constitutional: Appearance: Normal appearance. She is obese. HENT: Head: Normocephalic and atraumatic. Nose: Nose [...] Skin: General: Skin is warm and dry. Findings: Lesion (right AVF site with infected ulcer) present. Neurological: General: No focal deficit present. Mental Status: She is alert and oriented to person, place, and time. Mental status is at baseline. Psychiatric: Mood and Affect: Mood normal. Behavior: Behavior normal. Thought Content: Thought content normal. Judgment: Judgment normal. Labs: Recent Results (from the past 72 hours) Glucose, Nova Meter Collection Time: 02/10/25 6:20 PM Result Value Ref Range POC-GLUCOSE 149 (H) 70 - 110 mg/dL Mechanical Test Engineer [id number] Glucose, Nova Meter Collection Time: 02/10/25 7:54 PM Result Value Ref Range POC-GLUCOSE 176 (H) 70 - 110 mg/dL Mechanical Test Engineer [id number] Basic Metabolic Panel Collection Time: 02/11/25 5:31 AM Result Value Ref Range Sodium 135 (L) 136 - 145 meq/L Potassium 4.0 3.4 - 5.1 meq/L CO2 25 22 - 29 meq/L Chloride 98 98 - 112 meq/L Glucose 216 (H) 74 - 100 mg/dL BUN 19.4 9.8 - 20.1 mg/dL Creatinine 4.17 (H) 0.57 - 1.11 mg/dL BUN/Creatinine 5 (L) 8 - 20 Calcium 7.9 (L) 8.4 - 10.2 mg/dL Anion Gap 16 (H) 4 - 12 eGFR (mL/min/1.73m2) 12 (L) >=60 mL/min/1.73m2 Osmolality Calc 279.0 mOsm/kg CBC with automated diff Collection Time: 02/11/25 5:31 AM Result Value Ref Range WBC 8.7 4.0 - 10.0 K/??L RBC 3.68 (L) 3.93 - 5.22 M/??L Hemoglobin 12.0 11.2 - 15.7 GM/DL Hematocrit 35.9 34.1 - 44.9 % MCV 98 (H) 79 - 95 fL MCH 32.6 (H) 25.6 - 32.2 pg MCHC 33.4 32.2 - 35.5 GM/DL RDW 12.9 11.7 - 14.4 % Platelets 291 140 - 375 K/CU MM MPV 9.3 (L) 9.4 - 12.3 fL % Neutros 66 34 - 71 % % Lymphs 24 19 - 52 % % Monos 7 5 - 13 % % Eos 2 1 - 6 % % Baso 1 0 - 1 % NRBC Absolute <0.01 0 - 0.012 K/ul # Neutros 5.71 1.56 - 6.13 K/??L # Lymphs 2.12 1.18 - 3.74 K/??L # Monos 0.58 0.24 - 0.86 K/??L # Eos 0.17 0.04 - 0.36 K/??L # Baso 0.04 0.01 - 0.08 K/??L Immature Granulocytes-Relative 0.70 (H) 0.01 - 0.43 % # IG 0.06 (H) 0.00 - 0.03 K/uL C-Reactive Protein Collection Time: 02/11/25 5:31 AM Result Value Ref Range CRP 11.0 (H) 0.0 - 5.0 mg/L Glucose, Nova Meter Collection Time: 02/11/25 7:36 AM Result Value Ref Range POC-GLUCOSE 234 (H) 70 - 110 mg/dL Mechanical Test Engineer [id number] Glucose, [facility] Meter Collection Time: 02/11/25 11:42 AM Result Value Ref Range POC-GLUCOSE 240 (H) 70 - 110 mg/dL Mechanical Test Engineer [id number] Glucose, Nova Meter Collection Time: 02/11/25 4:09 PM Result Value Ref Range POC-GLUCOSE 208 (H) 70 - 110 mg/dL Mechanical Test Engineer [id number] Glucose, [facility] Meter Collection Time: 02/12/25 7:29 AM Result Value Ref Range POC-GLUCOSE 203 (H) 70 - 110 mg/dL Mechanical Test Engineer [id number] Glucose, [facility] Meter Collection Time: 02/12/25 11:19 AM Result Value Ref Range POC-GLUCOSE 230 (H) 70 - 110 mg/dL Mechanical Test Engineer [id number] Glucose, [facility] Meter Collection Time: 02/12/25 3:31 PM Result Value Ref Range POC-GLUCOSE 279 (H) 70 - 110 mg/dL Mechanical Test Engineer [id number] Glucose, [facility] Meter Collection Time: 02/12/25 8:23 PM Result Value Ref Range POC-GLUCOSE 316 (H) 70 - 110 mg/dL Mechanical Test Engineer [id number] Vancomycin level, random Collection Time: 02/13/25 5:08 AM Result Value Ref Range Vancomycin Rm 18.4 0.0 - 40.0 ug/mL Basic Metabolic Panel Collection Time: 02/13/25 5:08 AM Result Value Ref Range Sodium 135 (L) 136 - 145 meq/L Potassium 4.3 3.4 - 5.1 meq/L CO2 25 22 - 29 meq/L Chloride 97 (L) 98 - 112 meq/L Glucose 276 (H) 74 - 100 mg/dL BUN 35.2 (H) 9.8 - 20.1 mg/dL Creatinine 6.77 (H) 0.57 - 1.11 mg/dL BUN/Creatinine 5 (L) 8 - 20 Calcium 7.3 (L) 8.4 - 10.2 mg/dL Anion Gap 17 (H) 4 - 12 eGFR (mL/min/1.73m2) 7 (L) >=60 mL/min/1.73m2 Osmolality Calc 288.0 mOsm/kg CBC with automated diff Collection Time: 02/13/25 5:08 AM Result Value Ref Range WBC 8.1 4.0 - 10.0 K/??L RBC 3.34 (L) 3.93 - 5.22 M/??L Hemoglobin 10.7 (L) 11.2 - 15.7 GM/DL Hematocrit 32.4 (L) 34.1 - 44.9 % MCV 97 (H) 79 - 95 fL MCH 32.0 25.6 - 32.2 pg MCHC 33.0 32.2 - 35.5 GM/DL RDW 12.9 11.7 - 14.4 % Platelets 241 140 - 375 K/CU MM MPV 9.7 9.4 - 12.3 fL % Neutros 60 34 - 71 % % Lymphs 29 19 - 52 % % Monos 9 5 - 13 % % Eos 2 1 - 6 % % Baso 1 0 - 1 % NRBC Absolute <0.01 0 - 0.012 K/ul # Neutros 4.82 1.56 - 6.13 K/??L # Lymphs 2.32 1.18 - 3.74 K/??L # Monos 0.70 0.24 - 0.86 K/??L # Eos 0.13 0.04 - 0.36 K/??L # Baso 0.04 0.01 - 0.08 K/??L Immature Granulocytes-Relative 0.60 (H) 0.01 - 0.43 % # IG 0.05 (H) 0.00 - 0.03 K/uL Hepatitis B surface antigen Collection Time: 02/13/25 5:08 AM Result Value Ref Range Hepatitis B surface antigen Nonreactive Nonreactive Glucose, Nova Meter Collection Time: 02/13/25 7:37 AM Result Value Ref Range POC-GLUCOSE 278 (H) 70 - 110 mg/dL Mechanical Test Engineer [id number] Glucose, Nova Meter Collection Time: 02/13/25 11:22 AM Result Value Ref Range POC-GLUCOSE 344 (H) 70 - 110 mg/dL Mechanical Test Engineer [id number] Imaging: Ultrasound hemodialysis access Result Date: 02/09/2025 Vascular Upper Extremities Arterial Duplex Procedure Demographics Patient Name YANG Norris Age 54 Patient Number [id number] Gender Female Race Unknown Ethnicity [employer] ID [id number] Height 66 Date of 1970 Weight 268 Accession Number [id number] BSA 2.27 m^2 Room Number 400 BMI 43.26 kg/m^2 Referring Physician ERNST AVILA Physician Assistant To The Dean OLIVIA Blount Procedure Type of Study: Extremities Arteries: Upper Extremities Arterial Duplex, Hemodialysis Graft Access Duplex, US HEMODIALYSIS ACCESS. Impressions Summary ################################## Indication: N18.6 End stage renal disease. RIGHT: Patent Brachiocephalic AVF. VOLUME FLOW: Mid: 1044 ml/min. ################################## Allergies - Sulfa. Patient Status:Inpatient . Study Location:Portable. Technical Quality:Adequate visualization. Risk Factors History of Disease + + +-------- + !Diagnosis !Date !Comments ! + + + + !Diabetes ! ! ! + + +--------- + !CAD ! ! ! + + + + !Hypertension ! ! ! + + + + !Hyperlipidemia ! ! ! + + + + !Renal failure ! ! ! + + + + Velocities are measured in cm/s ; Diameters are measured in mm Signature CT upper extremity without contrast right Result Date: 02/08/2025 CT RIGHT UPPER EXTREMITY, ATTENTION ELBOW REGION HISTORY: Pain, TECHNIQUE: Thin section axial CT with sagittal and coronal reconstructions. FINDINGS: No fracture or bone destruction is present. Thereis stranding which overlies the olecranon and posteromedial distal humerus which is suspicious for cellulitis. There is no gas in the soft tissues. There is stranding and soft tissue irregularity in the antecubital region which surrounds the basilic vein- antecubital vein junction. This is also in the region of the brachial artery. Given the presence of multiple surgical clips, it is not possible to differentiate chronic postoperative change from an acute inflammatory process particularly without the benefit of prior exams. No gas is seen in the soft tissues. Aside from the surgical clips, no foreign body is seen. 1. Abnormal soft tissue prominence with surrounding stranding in the antecubital region encasing the junction of the basilic and antecubital veins. Without the benefit of prior exams, it is not possible to distinguish whether this represents an acute inflammatory process or chronic postoperative change with scarring. 2. Edema and stranding along the posterior distal humerus and olecranon suggestive of superficial cellulitis. 3. No large volume abscess. No gas in the soft tissues. This study wasperformed using dose reduction techniques to achieve radiation exposure as low as reasonably achievable (ALARA). Images reviewed, interpreted, and dictated by Nirav Navarro MD Assessment: #1 end-stage renal disease on chronic hemodialysis MWF #2 h/o cardiac arrest. #3 Anemia of chronic kidney disease #4 essential hypertension #5 type 2 diabetes mellitus #6 underlying multi-vessel coronary artery disease #7 peripheral vascular disease status post left AKA #8 Infected right AVF site ulcer Plan: MWF schedule. Erythropoietin stimulating agent and IV Iron targeting Hb 10-11 g/dl. Continue her diabetic meds. Monitor renal function electrolytes and acid- base base status status closely. Avoidanceof nephrotoxic agents and renal dosing of meds. Suggest ID and Vascular consultation. Further management of other medical problems as per primary service and orthopedic surgery. Thank you for this interesting consultation and please do not hesitate to contact me with any question regarding this case. * Edgar Hopper MD - 02/13/2025 8:03 AM EDT Images from the original note were not included. [facility] Patient Name: Carla Burkett : 1970 Evaluating Physician: Edgar Hopper MD Chief Complaint: right arm infection Reason for Consultation: right arm surgical site infection History of present illness: Patient is a 54 y.o. female with history of diabetes, end-stage renal disease with hemodialysis q. Hbeibb-Inejynthf-Cryzqw, right arm brachiocephalic AV fistula creation January 10, [address] Sloan; patient reports that she had picked a scab from the surgical site, subsequently had become red with drainage, culture with Staph aureus, empiric antibiotics initiated and surgical team has seen 02/13/25 Case management unable to make arrangements Thursday, discharge planning in progress ; Right forearm pain is improved/dull at present, nonradiating, constant, worse with palpation, better with pain meds and /10 No headache photophobia or neck stiffness. No shortness of breath cough or hemoptysis. No nausea vomiting diarrhea or abdominal pain. No dysuria hematuria or pyuria. No other new skin rash. Review of Systems 02/13/25 Constitutional-- No Fever, chills or sweats. Appetite good. No malaise. Heent-- No new vision, hearing or throat complaints. No epistaxis or oral sores. Denies odynophagiaor dysphagia. No headache, photophobia or neck stiffness. CV-- No chest pain, palpitation or syncope Resp-- No SOB, cough, or hemoptysis GI- No nausea, vomiting, or diarrhea. -- No dysuria, hematuria, or flank pain. Denies hesitancy, urgency or flank pain. Lymph- no swollen lymph nodes in neck, axilla or groin. Heme- No active bruising or bleeding MS-- no swelling or pain in the bones or joints of arms or legs. No new back pain. Neuro-- No acute focal weakness or numbness in the arms or legs. Skin-- No rash Past Medical History: Diagnosis Date C. difficile colitis Cardiac arrest ([facility]) 07/19/2024 CHF (congestive heart failure) (HCC) 01/19/2024 Chronic kidney disease Coronary artery disease-heart stents x 2019 CTS (carpal tunnel syndrome)left Depression Diabetes mellitus (HCC) ESRD (end stage renal disease) on dialysis (HCC)/thu Hyperlipidemia, unspecified 10/06/2022 Hypertension Kidney failure Obstructive [...] fistula creation; Surgeon: Baljinder Sloan MD; [facility]; Service: Vascular Surgery; Laterality: Right; CREATION,PERICARDIAL WINDOW N/A 12/19/2022 Procedure: CREATION, PERICARDIAL WINDOW; Surgeon: Bogdan Hernandez IV, MD; [facility]; Service: CV Surgery; Laterality: N/A; AO#3, AVAIL TF, 3HR(A) GALLBLADDER SURGERY heart stents INSERTION,DIALYSIS CATHETER KNEE ARTHROSCOPY Right ORIF,FEMUR Left 08/10/2023 Procedure: ORIF LT FEMUR); Surgeon: Otf Birmingham MD; [facility]; Service: OrthopaedicSurgery; Laterality: Left; AO# 4, AVAIL TF melvi left hip TONSILLECTOMY TRANSPOSITION,VEIN Left 04/20/2023 Procedure: (LT UPPER EXTREMITY AV FISTULA); Surgeon: Baljinder Sloan MD; [facility]; Service: Vascular; Laterality: Left; IN 0600, 1 HR (R) Social History Socioeconomic History Marital status: Single Spouse name: Not on file Number of children: Not on file Years of education: Not on file Highest education level: Not on file Occupational History Not on file Tobacco Use Smoking status: Some Days Types: Cigarettes Smokeless tobacco: Former Tobacco comments: Vap daily Substance and Sexual Activity Alcohol use: Not Currently Drug use: Not Currently Types: Marijuana Comment: yrs ago Sexual activity: Not on file Other Topics Concern Not on file Social History Narrative Not on file Social Drivers of Health Financial Resource Strain: Low Risk (02/09/2025) Financial Resource Strain Struggle to pay for basics: Not hard at all Food Insecurity: No Food Insecurity (02/09/2025) Food Insecurity Food run out past 12 months: Never true Food did not last past 12 months: Never true Transportation: No Transportation Needs (02/09/2025) Transportation Needs Transportation unreliable past 12 months: No Physical Activity: Inactive (02/09/2025) Physical Activity Minutes of exercise per week: 0 Social Connections: Unknown (02/09/2025) Family and Community Support Help with Day to Day Activities: I get all the help I need Feeling Lonely or Isolated: 0 No family history on file. Allergies Allergen Reactions Sulfa (Sulfonamide Antibiotics) Tylox [Oxycodone-Acetaminophen] Nausea Only Pt states she can tolerate hydrocodone (verified 12/19/22) @Scheduled Meds: amLODIPine 10 mg oral Daily 10 mg at 02/12/25 0851 aspirin 81 mg oral Daily 81 mg at 02/12/2551 atorvastatin 40 mg oral Every Night 40 mg at 02/12/252047 carvediloL 12.5 mg oral BID 12.5 mg at 02/12/252046 gabapentin 300 mg oral Every Night 300 mg at 02/12/257 heparin 5,000 Units subcutaneous Q8H 5,000 Units at 02/13/25 0633 insulin glargine 15 Units subcutaneous QAM insulin lispro 0-6 Units subcutaneous 4x Daily AC 5 Units at 02/12/258 isosorbide mononitrate 30 mg oral Daily 30 mg at 02/12/25 0852 lidocaine 1 patch transdermal Q24H 1 patch at 02/13/25 0634 prasugreL HCl 10 mg oral Daily 10 mg at 02/12/25 1030 sevelamer 800 mg oral TID with meals 800 mg at 02/12/25 1637 vancomycin 1,000 mg intravenous Once per day on Thursday IVPB Stopped at 02/10/252000 venlafaxine XR 37.5 mg oral Daily 37.5 mg at 02/12/25 0852 Continuous Infusions: Current Facility-Administered Medications Medication Dose Route Frequency Provider Last Rate Last Admin acetaminophen (TYLENOL) tablet 500 mg 500 mg oral Q6H PRN Briana Araiza MD 500 mg at 02/10/25 0413 amLODIPine (NORVASC) tablet 10 mg 10 mg oral Daily Olegario Varghese PA-C 10 mg at 02/12/25 0851 aspirin EC tablet 81 mg 81 mg oral Daily Olegario Varghese PA-C 81 mg at 02/12/25 0851 atorvastatin (LIPITOR) tablet 40 mg 40 mg oral Every Night Olegario Varghese PA-C 40 mg at 02/12/252047 baclofen (LIORESAL) tablet 5 mg 5 mg oral Every Night PRN Briana Araiza MD 5 mg at 02/12/252046 bisacodyL (DULCOLAX) EC tablet 10 mg 10 mg oral Daily PRN Olegario Varghese PA-C Or bisacodyL (DULCOLAX) suppository 10 mg 10 mg rectal Daily PRN Olegario Varghese PA-C carvediloL (COREG) tablet 12.5 mg 12.5 mg oral BID Olegario Varghese PA-C 12.5 mg at 02/12/252046 dextrose 50% (D50W) injection 25 g 25 g intravenous Q15 Min PRN Olegario Varghese PA-C gabapentin (NEURONTIN) capsule 300 mg 300 mg oral Every Night Olegario Varghese PA-C 300 mg at 02/12/252046 glucagon injection 1 mg 1 mg intraMUSCULAR Q15 Min PRN Olegario Varghese PA-C glucose chew tab 16 g 16 g oral Q15 Min PRN Olegario Varghese PA-C heparin injection 5,000 Units 5,000 Units subcutaneous Q8H Arabella Bell [employer]ER 5,000 Units at 02/13/25 0633 hydrALAZINE (APRESOLINE) injection 10 mg 10 mg intravenous Q6H PRN Olegario Varghese PA-C insulin glargine-yfgn (SEMGLEE) solution 15 Units 15 Units subcutaneous QAM Briana Araiza MD insulin lispro (HUMALOG, ADMELOG) injection 0-6 Units 0-6 Units subcutaneous 4x Daily AC Olegario Varghese PA-C 5 Units at 02/12/252047 isosorbide mononitrate (IMDUR) 24 hr tablet 30 mg 30 mg oral Daily Olegario Varghese PA-C 30 mg at 02/12/25 0852 lidocaine (LIDODERM) patch 4% 1 patch transdermal Q24H Edgar Reis PA-C 1 patch at 02/13/25 0634 melatonin tablet 3 mg 3 mg oral Every Night PRN Olegario Varghese PA-C ondansetron (ZOFRAN-ODT) disintegrating tablet 4 mg 4 mg oral Q8H PRN Olegario Varghese PA-C Or ondansetron (ZOFRAN) injection 4 mg 4 mg intravenous Q8H PRN DAMIEN Dunham 4 mg at 02/12/25 2159 polyethylene glycol (GLYCOLAX) packet 17 g 17 g oral Daily PRN Olegario Varghese PA-C prasugreL HCl (EFFIENT) tablet 10 mg 10 mg oral Daily Olegario Varghese PA-C 10 mg at 02/12/25 1030 promethazine (PHENERGAN) 12.5 mg in sodium chloride 0.9 % (NS) 50 mL IVPB (Immediate Use Only) 12.5mg intravenous Q6H PRN Pablo Yuan PA-C IVPB Stopped at 02/11/25 0113 promethazine (PHENERGAN) tablet 25 mg 25 mg oral Q6H PRN Pablo Yuan PA-C sevelamer (RENAGEL) tablet 800 mg 800 mg oral TID with meals DAMIEN Dunham 800 mg at 02/12/25 1637 traMADoL (ULTRAM) tablet 50 mg 50 mg oral Q6H PRN Briana Araiza MD 50 mg at 02/12/25 2047 vancomycin (VANCOCIN) 1,000 mg in sodium chloride 0.9% (NS) non-DEHP 250 mL IVPB 1,000 mg intravenous Once per day on Thursday DAMIEN Dunham IVPB Stopped at 02/10/252000 venlafaxine XR (EFFEXOR-XR) 24 hr capsule 37.5 mg 37.5 mg oral Daily Olegario Varghese PA-C 37.5 mg at 02/12/25 0852 Physical Exam: Vital Signs Vitals: 02/12/25200802/12/25201402/12/25202502/12/252324 BP: 111/66 127/76 Pulse: 73 74 72 Resp: 18 18 Temp: 97.7 ??F (36.5 ??C) 97.7 ??F (36.5 ??C) TempSrc: SpO2: 94% 97% 97% Weight: Height: GENERAL: Awake and alert, in no acute distress. HEENT: Normocephalic, atraumatic. No conjunctival injection. No icterus. Oropharynx clear without evidence of thrush or exudate. NECK: Supple without nuchal rigidity. No mass. HEART: RRR; No murmur. LUNGS: Clear to auscultation bilaterally without wheezing, rales, rhonchi. Normal respiratory effort. Nonlabored. ABDOMEN: Soft, nontender, nondistended. Positive bowel sounds. No rebound or guarding. EXT: See below MSK: FROM without joint effusions noted arms/legs. SKIN: Warm and dry without cutaneous eruptions on Inspection/palpation. NEURO: Oriented to PPT. No focal deficits on motor/sensory exam at arms/legs. Right arm AV fistula surgical site with open wound/dehiscence, some slough and serosanguineous drainage but unable to express any purulence. Some induration at the rim with some vague erythema but nodiscrete mass bulge or fluctuance. No crepitus or bulla. No visible prosthetic material Laboratory Data Lab Results Component Value Date WBC 8.1 02/13/2025 HGB 10.7 (L) 02/13/2025 HCT 32.4 (L) 02/13/2025 MCV 97 (H) 02/13/2025 PLT 241 02/13/2025 Lab Results Component Value Date GLUCOSE 278 (H) 02/13/2025 CALCIUM 7.3 (L) 02/13/2025 NA 135 (L) 02/13/2025 K 4.3 02/13/2025 CO2 25 02/13/2025 CL 97 (L) 02/13/2025 BUN 35.2 (H) 02/13/2025 CREATININE 6.77 (H) 02/13/2025 Estimated Creatinine Clearance: 8.9 mL/min (A) (by C-G formula based on SCr of 6.77 mg/dL (H)). Lab Results Component Value Date ALT 35 (H) 02/09/2025 AST 28 02/09/2025 ALKPHOS 175 (H) 02/09/2025 BILITOT 0.4 02/09/2025 Lab Results Component Value Date CRP 11.0 (H) 02/11/2025 Lab Results Component Value Date SEDRATE 35 (H) 02/08/2025 Microbiology: Microbiology Results (last 7 days) Procedure Component Value Units Date/Time Blood Culture [[id number]] Collected: 02/08/25 1600 Order Status: Completed Specimen: Blood Updated: 02/12/25 1700 Result No growth in 4 days Narrative: Blood volume is not within specification. May compromise patient blood culture results. Blood Culture [[id number]] Collected: 02/08/25 1617 Order Status: Completed Specimen: Blood Updated: 02/12/25 1700 Result No growth in 4 days Narrative: Blood volume is not within specification. May compromise patient blood culture results. Wound Culture + Gram Stain [[id number]] (Abnormal) (Susceptibility) Collected: 02/08/25 2319 Order Status: Completed Specimen: Wound from Arm, Right Upper Updated: 02/12/25 0805 Result Moderate Growth Methicillin resistant Staphylococcus aureus Comment: Resistant organism requires isolation protocol. Moderate Growth Staphylococcus epidermidis Gram Stain Result No cells seen Few gram positive cocci in pairs and clusters Few gram positive cocci Radiology: Radiology Results (last 3 days) No results found for the last 72 hours. Impression: Acute right forearm brachiocephalic fistula surgical site infection with dehiscence after patient had picked out a scab, Staph aureus and culture and further compounded by her comorbidity. Surgical team has followed with any timing/option/threshold for surgery at their discretion. I am unable to confirm any vascular structure involvement and no prosthetic material involvement as per vascular teamat present. Patient understands deeper tissue involvement could evolve; she understands the risk for persistent/recurrent or nonhealing wounds, persistent/progressive or recurrent infection and risk for functional/limb loss etc. End-stage renal disease with hemodialysis Thursday/Thursday/Thursday with brachiocephalic fistula as above January 2025 Diabetes. Glucose control per medicine team PLAN: --IV vancomycin Cx MRSA and MRSE --check/review labs cultures and scans --Partial history per nursing staff --Discussed with microbiology --Discussed with Dr. Araiza/multidisciplinary team/nursing regarding complex set of issues, importance of antimicrobial stewardship etc. --Highly complex set of issues with high risk for further serious morbidity and other serious sequela --Monitor IV and IV antibiotic with risk for systemic complication and potential drug interactions Disposition-- anticipate home Anticipated antibiotic plan-- Case management given orders for IV vancomycin after each dialysis This visit included the following complex service elements: Complex medical decision-making associated with antimicrobial prescribing. Managed infection prevention and treatment protocol associated with transitions of care for this complex patient. Counseled patients, family members, and/or caregivers regarding antimicrobial stewardship and resistance for the patient. Counseled patients, family members and/or caregivers regarding infection prevention. Communicated with the clinical microbiology lab. Edgar Hopper MD 02/13/2025 * Briana Araiza MD - 02/12/2025 1:18 PM EDT HOSPITALIST PROGRESS NOTE Patient: Carla Burkett Date: 02/12/2025 Subjective Date of Service: 02/12/2025 Feeling better today, less nausea, no vomiting. Tolerating diet Review of Systems Constitutional: Negative for chills and fever. Respiratory: Negative for cough and shortness of breath. Cardiovascular: Negative for chest pain and palpitations. Gastrointestinal: Positive for nausea. Negative for abdominal pain, diarrhea and vomiting. Musculoskeletal: Negative for myalgias. Neurological: Negative for weakness and headaches. Objective Vitals: Temp: [97.9 ??F (36.6 ??C)-98.3 ??F (36.8 ??C)] 98.3 ??F (36.8 ??C) Pulse: [57-88] 80 Resp: [16-17] 17 BP: (115-157)/(32-84) 115/65 Intake/Output: Intake/Output Summary (Last 24 hours) at 02/12/2025 1318 Last data filed at 02/12/2025 0900 Gross per 24 hour Intake 480 ml Output -- Net 480 ml Physical exam: Physical Exam Constitutional: Appearance: Normal appearance. She is obese. HENT: Head: Normocephalic. Eyes: Conjunctiva/sclera: Conjunctivae normal. Cardiovascular: Rate and Rhythm: Normal rate and regular rhythm. Heart sounds: No murmur heard. Pulmonary: Effort: No respiratory distress. Breath sounds: Normal breath sounds. No wheezing. Abdominal: General: Bowel sounds are normal. Palpations: Abdomen is soft. Tenderness: There is no abdominal tenderness. Musculoskeletal: Comments: S/p TMA Skin: Comments: Incision RUE not examined today Neurological: General: No focal deficit present. Mental Status: She is alert and oriented to person, place, and time. Psychiatric: Mood and Affect: Mood normal. Behavior: Behavior normal. Pertinent Recent Radiology: CT right upper extremity 02/08: Abnormal soft tissue prominence with surrounding stranding in the antecubital region, superficial cellulitis, no abscess or gas Upper extremity ultrasound 02/09: Patent brachiocephalic AVF Assessment and Plan #Right upper extremity cellulitis AV fistula incision site Vascular surgery following: Recommend antibiotics, signed off 02/10 Does not meet sepsis criteria WBC normal at 8.7, CRP down to 11 Pharmacy to dose vancomycin Wound culture + MRSA and staph epidermidis ID following, discussed with Dr. Hopper today #ESRD on HD Continue MWF schedule Nephrology following Renal diet #Diabetes with hyperglycemia Glargine 7 units daily SSI #Nausea and vomiting Supportive care Code Status: Current Code Status Full code Discharge Planning: Barriers to discharge/reason for continued hospitalization: Final antibiotic plan confirmed today but will need to be given with HD in her clinic is not open today. Also no wheelchair transportation available today back to her facility Expected (tentative) discharge in:. Patient medically ready as of 02/12. 1-2 days Expected discharge disposition: [facility] facility, [place] Additional discharge needs: PCP follow-up, nephrology follow-up, transportation IV antibiotics withHD Signed: Briaan Araiza MD 02/12/2025, 12:15 PM * Philomena Palomino RN - 02/12/2025 1:17 PM EDTSummary: Discharge Planning Weekend CM. Final ID plan for antibiotic with HD entered today. [place] [facility] is not open today for CM to fax order and confirm they have the antibiotic. Patient will also need wheelchair transport set up. * Nataliya Cain MD - 02/12/2025 11:47 AM EDT Images from the original note were not included. Subjective: Patient was seen and examined with all infection control measures. NAD, afebrile. Hospital Course: Carla Burkett is a 54 y.o. female well-known to my practice with history of end-stage renaldisease on chronic hemodialysis on a Thursday, and Thursday schedule who had recently AV fistula creation. It was noted that the surgical site was slightly inflamed last week and the patient was started on p.o. doxycycline. A scab was formed apparently however the patient had picked on the scab leading to what appears to be infected ulcer at the vascular access site. [facility] for further evaluation by vascular surgery and possible need for IV antibiotic initiation. Nephrology consult was requested by the primary team. Allergies: Sulfa (Sulfonamide Antibiotics) and Tylox [Oxycodone-Acetaminophen] Home Medications: Prior to Admission medications Medication Sig Start Date End Date Taking? Authorizing Provider acetaminophen (TYLENOL) 500 MG tablet Take 1 tablet (500 mg total) by mouth every 6 (six) hours as needed for pain. Yes Historical Provider, amLODIPine (NORVASC) 10 MG tablet Take 1 tablet (10 mg total) by mouth daily. 12/12/22 Yes Historical Provider, aspirin 81 MG EC tablet Take 1 tablet (81 mg total) by mouth daily. 12/01/22 Yes Historical Provider, atorvastatin (LIPITOR) 40 MG tablet Take 1 tablet (40 mg total) by mouth nightly. 12/03/22 Yes Historical Provider, baclofen (LIORESAL) 5 mg tab Take 1 tablet (5 mg total) by mouth every night as needed for muscle spasms. Yes Historical Provider, calcitonin, salmon, (MIACALCIN) 200 unit/actuation nasal spray [place] 1 spray into one nostril daily. Yes Historical Provider, calcium carbonate 600mg (Caltrate) 600 mg calcium (1,500 mg) tab Take 1 tablet (1,500 mg total) by mouth daily. 04/10/24 Yes Historical Provider, carvediloL (COREG) 12.5 MG tablet Take 1 tablet (12.5 mg total) by mouth 2 (two) times daily. 12/06/22 Yes Historical Provider, diphenhydrAMINE (BENADRYL) 25 mg tablet Take 1 tablet (25 mg total) by mouth 3 (three) times daily as needed for itching. Yes Historical Provider, famotidine (PEPCID) 20 MG tablet Take 1 tablet (20 mg total) by mouth 2 (two) times daily. Yes Historical Provider, fexofenadine (DANIELLE) 180 MG tablet Take 1 tablet (180 mg total) by mouth daily. Yes Historical Provider, gabapentin (NEURONTIN) 300 MG capsule Take 1 capsule (300 mg total) by mouth nightly. 02/04/24 Yes Historical Provider, insulin aspart U-100 (NovoLOG) 100 unit/mL (3 mL) inpn Inject under the skin 3 (three) times daily before meals Sliding scale. Yes Historical Provider, isosorbide mononitrate (IMDUR) 30 MG 24 hr tablet Take 1 tablet (30 mg total) by mouth daily. Yes Historical Provider, metoclopramide (REGLAN) 10 MG tablet Take 1 tablet (10 mg total) by mouth 3 (three) times daily before meals. Yes Historical Provider, ondansetron (ZOFRAN) 4 MG tablet Take 1 tablet (4 mg total) by mouth every 8 (eight) hours as needed for nausea. Yes Historical Provider, prasugreL (EFFIENT) 10 mg tab tablet Take 1 tablet (10 mg total) by mouth daily. 02/10/24 Yes Historical Provider, pseudoephedrine (Sudogest) 60 MG tablet Take 1 tablet (60 mg total) by mouth every 6 (six) hours asneeded for congestion. Yes Historical Provider, sevelamer (RENAGEL) 800 MG tablet Take 1 tablet (800 mg total) by mouth 3 (three) times daily with meals. Yes Historical Provider, venlafaxine (Effexor XR) 37.5 MG 24 hr capsule Take 1 capsule (37.5 mg total) by mouth daily. Yes Historical Provider, epoetin gia (Procrit) 20,000 unit/2 mL soln injection Inject 2 mLs (20,000 Units total) under the skin once a week. Historical Provider, polyethylene glycol (MIRALAX) 17 gram/dose powder Take 17 g by mouth daily. Historical Provider, Current Medications: Current Facility-Administered Medications: acetaminophen (TYLENOL) tablet 500 mg, 500 mg, oral, Q6H PRN, Briana Jose G, MD, 500 mg at 02/10/25 0413 amLODIPine (NORVASC) tablet 10 mg, 10 mg, oral, Daily, Olegario Varghese PA-C, 10 mg at 02/12/25 0851 aspirin EC tablet 81 mg, 81 mg, oral, Daily, Olegario Varghese PA-C, 81 mg at 02/12/25 0851 atorvastatin (LIPITOR) tablet 40 mg, 40 mg, oral, Every Night, Olegario Varghese PA-C, 40 mg at 02/12/252047 baclofen (LIORESAL) tablet 5 mg, 5 mg, oral, Every Night PRN, Briana Araiza MD, 5 mg at 02/12/252046 bisacodyL (DULCOLAX) EC tablet 10 mg, 10 mg, oral, Daily PRN OR bisacodyL (DULCOLAX) suppository 10 mg, 10 mg, rectal, Daily PRN, Olegario Varghese PA-C carvediloL (COREG) tablet 12.5 mg, 12.5 mg, oral, BID, Olegario Varghese PA-C, 12.5 mg at 02/12/252046 dextrose 50% (D50W) injection 25 g, 25 g, intravenous, Q15 Min PRN, Olegario Varghese PA-C gabapentin (NEURONTIN) capsule 300 mg, 300 mg, oral, Every Night, Olegario Varghese PA-C, 300 mg at 02/12/252046 glucagon injection 1 mg, 1 mg, intraMUSCULAR, Q15 Min PRN, Olegario Varghese PA-C glucose chew tab 16 g, 16 g, oral, Q15 Min PRN, Olegario Varghese PA-C heparin injection 5,000 Units, 5,000 Units, subcutaneous, Q8H, Arabella Luu, BRUSH HEAD MAKER, 5,000 Units at 02/12/252047 hydrALAZINE (APRESOLINE) injection 10 mg, 10 mg, intravenous, Q6H PRN, Olegario Varghese PA-C insulin glargine-yfgn (SEMGLEE) solution 7 Units, 7 Units, subcutaneous, QAM, Briana Araiza MD, 7 Units at 02/12/25 0531 insulin lispro (HUMALOG, ADMELOG) injection 0-6 Units, 0-6 Units, subcutaneous, 4x Daily AC, SHERLY Young, 5 Units at 02/12/25 2048 isosorbide mononitrate (IMDUR) 24 hr tablet 30 mg, 30 mg, oral, Daily, Olegario Varghese PA-C, 30 mg at 02/12/25 0852 lidocaine (LIDODERM) patch 4%, 1 patch, transdermal, Q24H, DAMIEN Chatterjee, 1 patch at 02/12/25 0531 melatonin tablet 3 mg, 3 mg, oral, Every Night PRN, Olegario Varghese PA-C ondansetron (ZOFRAN-ODT) disintegrating tablet 4 mg, 4 mg, oral, Q8H PRN OR ondansetron (ZOFRAN) injection 4 mg, 4 mg, intravenous, Q8H PRN, Olegario Varghese PA-C, 4 mg at 02/12/25 2159 polyethylene glycol (GLYCOLAX) packet 17 g, 17 g, oral, Daily PRN, Olegario Varghese PA-C prasugreL HCl (EFFIENT) tablet 10 mg, 10 mg, oral, Daily, Olegario Varghese PA-C, 10 mg at 02/12/25 1030 promethazine (PHENERGAN) 12.5 mg in sodium chloride 0.9 % (NS) 50 mL IVPB (Immediate Use Only), 12.5 mg, intravenous, Q6H PRN, Pablo Yuan PA-C, IVPB Stopped at 02/11/25 0113 promethazine (PHENERGAN) tablet 25 mg, 25 mg, oral, Q6H PRN, Pablo Yuan PA-C sevelamer (RENAGEL) tablet 800 mg, 800 mg, oral, TID with meals, Olegario Varghese PA-C, 800 mg at 02/12/25 1637 traMADoL (ULTRAM) tablet 50 mg, 50 mg, oral, Q6H PRN, Briana Araiza MD, 50 mg at 02/12/252046 vancomycin (VANCOCIN) 1,000 mg in sodium chloride 0.9% (NS) non-DEHP 250 mL IVPB, 1,000 mg, intravenous, Once per day on Thursday, Olegario Varghese PA-C, IVPB Stopped at 02/10/252000 venlafaxine XR (EFFEXOR-XR) 24 hr capsule 37.5 mg, 37.5 mg, oral, Daily, Olegario Varghese PA-C, 37.5mg at 02/12/25 0852 Review of Systems Constitutional: Positive for fatigue. HENT: Negative. Eyes: Negative. Respiratory: Negative. Cardiovascular: Positive for leg swelling. Gastrointestinal: Negative. Endocrine: Negative. Genitourinary: Negative. Musculoskeletal: Negative. Skin: Positive for wound (right AVF site with infected ulcer). Allergic/Immunologic: Negative. Neurological: Negative. Hematological: Negative. Psychiatric/Behavioral: Negative. All other systems reviewed and are negative. Vitals Blood pressure 107/59, pulse 75, temperature 98.1 ??F (36.7 ??C), resp. rate 18, height 1.676 m (5'6 ), weight 121.6 kg (268 lb), SpO2 95%. Physical Exam Vitals and nursing note reviewed. Constitutional: Appearance: Normal appearance. She is obese. HENT: Head: Normocephalic and atraumatic. Nose: Nose [...] Skin: General: Skin is warm and dry. Findings: Lesion (right AVF site with infected ulcer) present. Neurological: General: No focal deficit present. Mental Status: She is alert and oriented to person, place, and time. Mental status is at baseline. Psychiatric: Mood and Affect: Mood normal. Behavior: Behavior normal. Thought Content: Thought content normal. Judgment: Judgment normal. Labs: Recent Results (from the past 72 hours) Glucose, Nova Meter Collection Time: 02/10/25 7:52 AM Result Value Ref Range POC-GLUCOSE 235 (H) 70 - 110 mg/dL Mechanical Test Engineer [id number] Glucose, Nova Meter Collection Time: 02/10/25 12:23 PM Result Value Ref Range POC-GLUCOSE 274 (H) 70 - 110 mg/dL Mechanical Test Engineer [id number] Glucose, Nova Meter Collection Time: 02/10/25 6:20 PM Result Value Ref Range POC-GLUCOSE 149 (H) 70 - 110 mg/dL Mechanical Test Engineer [id number] Glucose, Nova Meter Collection Time: 02/10/25 7:54 PM Result Value Ref Range POC-GLUCOSE 176 (H) 70 - 110 mg/dL Mechanical Test Engineer [id number] Basic Metabolic Panel Collection Time: 02/11/25 5:31 AM Result Value Ref Range Sodium 135 (L) 136 - 145 meq/L Potassium 4.0 3.4 - 5.1 meq/L CO2 25 22 - 29 meq/L Chloride 98 98 - 112 meq/L Glucose 216 (H) 74 - 100 mg/dL BUN 19.4 9.8 - 20.1 mg/dL Creatinine 4.17 (H) 0.57 - 1.11 mg/dL BUN/Creatinine 5 (L) 8 - 20 Calcium 7.9 (L) 8.4 - 10.2 mg/dL Anion Gap 16 (H) 4 - 12 eGFR (mL/min/1.73m2) 12 (L) >=60 mL/min/1.73m2 Osmolality Calc 279.0 mOsm/kg CBC with automated diff Collection Time: 02/11/25 5:31 AM Result Value Ref Range WBC 8.7 4.0 - 10.0 K/??L RBC 3.68 (L) 3.93 - 5.22 M/??L Hemoglobin 12.0 11.2 - 15.7 GM/DL Hematocrit 35.9 34.1 - 44.9 % MCV 98 (H) 79 - 95 fL MCH 32.6 (H) 25.6 - 32.2 pg MCHC 33.4 32.2 - 35.5 GM/DL RDW 12.9 11.7 - 14.4 % Platelets 291 140 - 375 K/CU MM MPV 9.3 (L) 9.4 - 12.3 fL % Neutros 66 34 - 71 % % Lymphs 24 19 - 52 % % Monos 7 5 - 13 % % Eos 2 1 - 6 % % Baso 1 0 - 1 % NRBC Absolute <0.01 0 - 0.012 K/ul # Neutros 5.71 1.56 - 6.13 K/??L # Lymphs 2.12 1.18 - 3.74 K/??L # Monos 0.58 0.24 - 0.86 K/??L # Eos 0.17 0.04 - 0.36 K/??L # Baso 0.04 0.01 - 0.08 K/??L Immature Granulocytes-Relative 0.70 (H) 0.01 - 0.43 % # IG 0.06 (H) 0.00 - 0.03 K/uL C-Reactive Protein Collection Time: 02/11/25 5:31 AM Result Value Ref Range CRP 11.0 (H) 0.0 - 5.0 mg/L Glucose, Nova Meter Collection Time: 02/11/25 7:36 AM Result Value Ref Range POC-GLUCOSE 234 (H) 70 - 110 mg/dL Mechanical Test Engineer [id number] Glucose, Nova Meter Collection Time: 02/11/25 11:42 AM Result Value Ref Range POC-GLUCOSE 240 (H) 70 - 110 mg/dL Mechanical Test Engineer [id number] Glucose, Nova Meter Collection Time: 02/11/25 4:09 PM Result Value Ref Range POC-GLUCOSE 208 (H) 70 - 110 mg/dL Mechanical Test Engineer [id number] Glucose, Nova Meter Collection Time: 02/12/25 7:29 AM Result Value Ref Range POC-GLUCOSE 203 (H) 70 - 110 mg/dL Mechanical Test Engineer [id number] Glucose, Nova Meter Collection Time: 02/12/25 11:19 AM Result Value Ref Range POC-GLUCOSE 230 (H) 70 - 110 mg/dL Mechanical Test Engineer [id number] Glucose, Nova Meter Collection Time: 02/12/25 3:31 PM Result Value Ref Range POC-GLUCOSE 279 (H) 70 - 110 mg/dL Mechanical Test Engineer [id number] Glucose, Nova Meter Collection Time: 02/12/25 8:23 PM Result Value Ref Range POC-GLUCOSE 316 (H) 70 - 110 mg/dL Mechanical Test Engineer [id number] Imaging: Ultrasound hemodialysis access Result Date: 02/09/2025 Vascular Upper Extremities Arterial Duplex Procedure Demographics Patient Name YANG Norris Age 54 Patient Number [id number] Gender Female Race Unknown Ethnicity Corporate ID [id number] Height 66 Date of 1970 Weight 268 Accession Number [id number] BSA 2.27 m^2 Room Number 400 BMI 43.26 kg/m^2 Referring Physician ERNST AVILA Physician Assistant To The Dean OLIVIA Blount Procedure Type of Study: Extremities Arteries: Upper Extremities Arterial Duplex, Hemodialysis Graft Access Duplex, US HEMODIALYSIS ACCESS. Impressions Summary ################################## Indication: N18.6 End stage renal disease. RIGHT:Patent Brachiocephalic AVF. VOLUME FLOW: Mid: 1044 ml/min. ################################## Allergies - Sulfa. Patient Status:Inpatient . Study Location:Portable. Technical Quality:Adequate visualization. Risk Factors History of Disease + + + + !Diagnosis !Date !Comments ! + + + + !Diabetes ! ! ! + + + + !CAD ! ! ! + + + + !Hypertension ! ! ! + + + + !Hyperlipidemia ! ! ! + + + + !Renal failure ! ! ! + + + + Ve locities are measured in cm/s ; Diameters are measured in mm Signature CT upper extremity without contrast right Result Date: 02/08/2025 CT RIGHT UPPER EXTREMITY, ATTENTION ELBOW REGION HISTORY: Pain, TECHNIQUE: Thin section axial CT with sagittal and coronal reconstructions. FINDINGS: No fracture or bone destruction is present. Thereis stranding which overlies the olecranon and posteromedial distal humerus which is suspicious for cellulitis. There is no gas in the soft tissues. There is stranding and soft tissue irregularity in the antecubital region which surrounds the basilic vein- antecubital vein junction. This is also in the region of the brachial artery. Given the presence of multiple surgical clips, it is not possible to differentiate chronic postoperative change from an acute inflammatory process particularly without the benefit of prior exams. No gas is seen in the soft tissues. Aside from the surgical clips, no foreign body is seen. 1. Abnormal soft tissue prominence with surrounding stranding in the antecubital region encasing the junction of the basilic and antecubital veins. Without the benefit of prior exams, it is not possible to distinguish whether this represents an acute inflammatory process or chronic postoperative change with scarring. 2. Edema and stranding along the posterior distal humerus and olecranon suggestive of superficial cellulitis. 3. No large volume abscess. No gas in the soft tissues. This study wasperformed using dose reduction techniques to achieve radiation exposure as low as reasonably achievable (ALARA). Images reviewed, interpreted, and dictated by Nirav Navarro MD Assessment: #1 end-stage renal disease on chronic hemodialysis MWF #2 h/o cardiac arrest. #3 Anemia of chronic kidney disease #4 essential hypertension #5 type 2 diabetes mellitus #6 underlying multi-vessel coronary artery disease #7 peripheral vascular disease status post left AKA #8 Infected right AVF site ulcer Plan: MWF schedule. Erythropoietin stimulating agent and IV Iron targeting Hb 10-11 g/dl. Continue her diabetic meds. Monitor renal function electrolytes and acid- base base status status closely. Avoidanceof nephrotoxic agents and renal dosing of meds. Suggest ID and Vascular consultation. Further management of other medical problems as per primary service and orthopedic surgery. Thank you for this interesting consultation and please do not hesitate to contact me with any question regarding this case. * Edgar Hopper MD - 02/12/2025 10:38 AM EDT Images from the original note were not included. [facility] Patient Name: Carla Burkett : 1970 Evaluating Physician: Edgar Hopper MD Chief Complaint: right arm infection Reason for Consultation: right arm surgical site infection History of present illness: Patient is a 54 y.o. female with history of diabetes, end-stage renal disease with hemodialysis q. [id number]-[id number], right arm brachiocephalic AV fistula creation January 10, [address] Sloan; patient reports that she had picked a scab from the surgical site, subsequently had become red with drainage, culture with Staph aureus, empiric antibiotics initiated and surgical team has seen 02/12/25 Right forearm pain is improved/dull at present, nonradiating, constant, worse with palpation, better with pain meds and No headache photophobia or neck stiffness. No shortness of breath cough or hemoptysis. No nausea vomiting diarrhea or abdominal pain. No dysuria hematuria or pyuria. No other new skin rash. Review of Systems 02/12/25 Constitutional-- No Fever, chills or sweats. Appetite good. No malaise. Heent-- No new vision, hearing or throat complaints. No epistaxis or oral sores. Denies odynophagiaor dysphagia. No headache, photophobia or neck stiffness. CV-- No chest pain, palpitation or syncope Resp-- No SOB, cough, or hemoptysis GI- No nausea, vomiting, or diarrhea. -- No dysuria, hematuria, or flank pain. Denies hesitancy, urgency or flank pain. Lymph- no swollen lymph nodes in neck, axilla or groin. Heme- No active bruising or bleeding MS-- no swelling or pain in the bones or joints of arms or legs. No new back pain. Neuro-- No acute focal weakness or numbness in the arms or legs. Skin-- No rash Past Medical History: Diagnosis Date C. difficile colitis Cardiac arrest ([facility]) 07/19/2024 CHF (congestive heart failure) (HCC) 01/19/2024 Chronic kidney disease Coronary artery disease-heart stents x 2019 CTS (carpal tunnel syndrome)left Depression Diabetes mellitus (HCC) ESRD (end stage renal disease) on dialysis (HCC) Hyperlipidemia, unspecified 10/06/2022 Hypertension Kidney failure Obstructive [...] fistula creation; Surgeon: Baljinder Sloan MD; [facility]; Service: Vascular Surgery; Laterality: Right; CREATION,PERICARDIAL WINDOW N/A 12/19/2022 Procedure: CREATION, PERICARDIAL WINDOW; Surgeon: Bogdan Hernandez IV, MD; [facility]; Service: CV Surgery; Laterality: N/A; AO#3, AVAIL TF, 3HR(A) GALLBLADDER SURGERY heart stents INSERTION,DIALYSIS CATHETER KNEE ARTHROSCOPY Right ORIF,FEMUR Left 08/10/2023 Procedure: ORIF LT FEMUR); Surgeon: Otf Birmingham MD; [facility]; Service: OrthopaedicSurgery; Laterality: Left; AO# 4, AVAIL TF melvi left hip TONSILLECTOMY TRANSPOSITION,VEIN Left 04/20/2023 Procedure: (LT UPPER EXTREMITY AV FISTULA); Surgeon: Baljinder Sloan MD; [facility]; Service: Vascular; Laterality: Left; IN 0600, 1 HR (R) Social History Socioeconomic History Marital status: Single Spouse name: Not on file Number of children: Not on file Years of education: Not on file Highest education level: Not on file Occupational History Not on file Tobacco Use Smoking status: Some Days Types: Cigarettes Smokeless tobacco: Former Tobacco comments: Vap daily Substance and Sexual Activity Alcohol use: Not Currently Drug use: Not Currently Types: Marijuana Comment: yrs ago Sexual activity: Not on file Other Topics Concern Not on file Social History Narrative Not on file Social Drivers of Health Financial Resource Strain: Low Risk (02/09/2025) Financial Resource Strain Struggle to pay for basics: Not hard at all Food Insecurity: No Food Insecurity (02/09/2025) Food Insecurity Food run out past 12 months: Never true Food did not last past 12 months: Never true Transportation: No Transportation Needs (02/09/2025) Transportation Needs Transportation unreliable past 12 months: No Physical Activity: Inactive (02/09/2025) Physical Activity Minutes of exercise per week: 0 Social Connections: Unknown (02/09/2025) Family and Community Support Help with Day to Day Activities: I get all the help I need Feeling Lonely or Isolated: 0 No family history on file. Allergies Allergen Reactions Sulfa (Sulfonamide Antibiotics) Tylox [Oxycodone-Acetaminophen] Nausea Only Pt states she can tolerate hydrocodone (verified 12/19/22) @Scheduled Meds: amLODIPine 10 mg oral Daily 10 mg at 02/12/25 0851 aspirin 81 mg oral Daily 81 mg at 02/12/25 0851 atorvastatin 40 mg oral Every Night 40 mg at 02/11/25 2140 carvediloL 12.5 mg oral BID 12.5 mg at 02/12/25 0852 gabapentin 300 mg oral Every Night 300 mg at 02/11/25 2140 heparin 5,000 Units subcutaneous Q8H 5,000 Units at 02/12/25 0531 insulin glargine 7 Units subcutaneous QAM 7 Units at 02/12/25 0531 insulin lispro 0-6 Units subcutaneous 4x Daily AC 2 Units at 02/12/25 0859 isosorbide mononitrate 30 mg oral Daily 30 mg at 02/12/25 0852 lidocaine 1 patch transdermal Q24H 1 patch at 02/12/25 0531 prasugreL HCl 10 mg oral Daily 10 mg at 02/11/25 1033 sevelamer 800 mg oral TID with meals 800 mg at 02/12/25 0853 vancomycin 1,000 mg intravenous Once per day on Thursday IVPB Stopped at 02/10/252000 venlafaxine XR 37.5 mg oral Daily 37.5 mg at 02/12/25 0852 Continuous Infusions: Current Facility-Administered Medications Medication Dose Route Frequency Provider Last Rate Last Admin acetaminophen (TYLENOL) tablet 500 mg 500 mg oral Q6H PRN Briana Araiza MD 500 mg at 02/10/25 0413 amLODIPine (NORVASC) tablet 10 mg 10 mg oral Daily Olegario Varghese PA-C 10 mg at 02/12/25 0851 aspirin EC tablet 81 mg 81 mg oral Daily Olegario Varghese PA-C 81 mg at 02/12/25 0851 atorvastatin (LIPITOR) tablet 40 mg 40 mg oral Every Night Olegario Varghese PA-C 40 mg at 02/11/250 baclofen (LIORESAL) tablet 5 mg 5 mg oral Every Night PRN Briana Araiza MD 5 mg at 02/11/25 2144 bisacodyL (DULCOLAX) EC tablet 10 mg 10 mg oral Daily PRN Olegario Varghese PA-C Or bisacodyL (DULCOLAX) suppository 10 mg 10 mg rectal Daily PRN Olegario Varghese PA-C carvediloL (COREG) tablet 12.5 mg 12.5 mg oral BID Olegario Varghese PA-C 12.5 mg at 02/12/25 0852 dextrose 50% (D50W) injection 25 g 25 g intravenous Q15 Min PRN Olegario Varghese PA-C gabapentin (NEURONTIN) capsule 300 mg 300 mg oral Every Night Olegario Varghese PA-C 300 mg at 02/11/250 glucagon injection 1 mg 1 mg intraMUSCULAR Q15 Min PRN Olegario Varghese PA-C glucose chew tab 16 g 16 g oral Q15 Min PRN Olegario Varghese PA-C heparin injection 5,000 Units 5,000 Units subcutaneous Q8H Arabella Luu, BRUSH HEAD MAKER 5,000 Units at 02/12/25 0531 hydrALAZINE (APRESOLINE) injection 10 mg 10 mg intravenous Q6H PRN Olegario Varghese PA-C insulin glargine-yfgn (SEMGLEE) solution 7 Units 7 Units subcutaneous QAM Briana Araiza MD 7 Units at 02/12/25 0531 insulin lispro (HUMALOG, ADMELOG) injection 0-6 Units 0-6 Units subcutaneous 4x Daily AC Olegario Varghese PA-C 2 Units at 02/12/25 0859 isosorbide mononitrate (IMDUR) 24 hr tablet 30 mg 30 mg oral Daily Olegario Varghese PA-C 30 mg at 02/12/25 0852 lidocaine (LIDODERM) patch 4% 1 patch transdermal Q24H Edgar Reis PA-C 1 patch at 02/12/25 0531 melatonin tablet 3 mg 3 mg oral Every Night PRN Olegario Varghese PA-C ondansetron (ZOFRAN-ODT) disintegrating tablet 4 mg 4 mg oral Q8H PRN Olegario Varghese PA-C Or ondansetron (ZOFRAN) injection 4 mg 4 mg intravenous Q8H PRN DAMIEN Dunham 4 mg at 02/11/25 0728 polyethylene glycol (GLYCOLAX) packet 17 g 17 g oral Daily PRN Olegario Varghese PA-C prasugreL HCl (EFFIENT) tablet 10 mg 10 mg oral Daily Olegario Varghese PA-C 10 mg at 02/11/25 1033 promethazine (PHENERGAN) 12.5 mg in sodium chloride 0.9 % (NS) 50 mL IVPB (Immediate Use Only) 12.5mg intravenous Q6H PRN Pablo Yuan PA-C IVPB Stopped at 02/11/25 0113 promethazine (PHENERGAN) tablet 25 mg 25 mg oral Q6H PRN Pablo Yuan PA-C sevelamer (RENAGEL) tablet 800 mg 800 mg oral TID with meals DAMIEN Dunham 800 mg at 02/12/25 0853 traMADoL (ULTRAM) tablet 50 mg 50 mg oral Q6H PRN Briana Araiza MD 50 mg at 02/12/25 0851 vancomycin (VANCOCIN) 1,000 mg in sodium chloride 0.9% (NS) non-DEHP 250 mL IVPB 1,000 mg intravenous Once per day on Thursday DAMIEN Dunham IVPB Stopped at 02/10/252000 venlafaxine XR (EFFEXOR-XR) 24 hr capsule 37.5 mg 37.5 mg oral Daily Olegario Varghese PA-C 37.5 mg at 02/12/25 0852 Physical Exam: Vital Signs Vitals: 02/12/25 0505 02/12/25 0850 02/12/25 0851 02/12/25 0852 BP: (!) 140/78 135/62 135/62 (!) 135/32 Pulse: 81 88 57 Resp: 17 Temp: 97.9 ??F (36.6 ??C) TempSrc: Oral SpO2: 99% Weight: Height: GENERAL: Awake and alert, in no acute distress. HEENT: Normocephalic, atraumatic. No conjunctival injection. No icterus. Oropharynx clear without evidence of thrush or exudate. NECK: Supple without nuchal rigidity. No mass. HEART: RRR; No murmur. LUNGS: Clear to auscultation bilaterally without wheezing, rales, rhonchi. Normal respiratory effort. Nonlabored. ABDOMEN: Soft, nontender, nondistended. Positive bowel sounds. No rebound or guarding. EXT: See below MSK: FROM without joint effusions noted arms/legs. SKIN: Warm and dry without cutaneous eruptions on Inspection/palpation. NEURO: Oriented to PPT. No focal deficits on motor/sensory exam at arms/legs. Right arm AV fistula surgical site with open wound/dehiscence, some slough and serosanguineous drainage but unable to express any purulence. Some induration at the rim with some vague erythema but nodiscrete mass bulge or fluctuance. No crepitus or bulla. No visible prosthetic material Laboratory Data Lab Results Component Value Date WBC 8.7 02/11/2025 HGB 12.0 02/11/2025 HCT 35.9 02/11/2025 MCV 98 (H) 02/11/2025 PLT 291 02/11/2025 Lab Results Component Value Date GLUCOSE 203 (H) 02/12/2025 CALCIUM 7.9 (L) 02/11/2025 NA 135 (L) 02/11/2025 K 4.0 02/11/2025 CO2 25 02/11/2025 CL 98 02/11/2025 BUN 19.4 02/11/2025 CREATININE 4.17 (H) 02/11/2025 Estimated Creatinine Clearance: 14.4 mL/min (A) (by C-G formula based on SCr of 4.17 mg/dL (H)). Lab Results Component Value Date ALT 35 (H) 02/09/2025 AST 28 02/09/2025 ALKPHOS 175 (H) 02/09/2025 BILITOT 0.4 02/09/2025 Lab Results Component Value Date CRP 11.0 (H) 02/11/2025 Lab Results Component Value Date SEDRATE 35 (H) 02/08/2025 Microbiology: Microbiology Results (last 7 days) Procedure Component Value Units Date/Time Wound Culture + Gram Stain [[id number]] (Abnormal) (Susceptibility) Collected: 02/08/25 2319 Order Status: Completed Specimen: Wound from Arm, Right Upper Updated: 02/12/25 0805 Result Moderate Growth Methicillin resistant Staphylococcus aureus Comment: Resistant organism requires isolation protocol. Moderate Growth Staphylococcus epidermidis Gram Stain Result No cells seen Few gram positive cocci in pairs and clusters Few gram positive cocci Blood Culture [[id number]] Collected: 02/08/25 1600 Order Status: Completed Specimen: Blood Updated: 02/11/25 1700 Result No growth in 3 days Narrative: Blood volume is not within specification. May compromise patient blood culture results. Blood Culture [[id number]] Collected: 02/08/25 1617 Order Status: Completed Specimen: Blood Updated: 02/11/25 1700 Result No growth in 3 days Narrative: Blood volume is not within specification. May compromise patient blood culture results. Radiology: Radiology Results (last 3 days) Procedure Component Value Units Date/Time Ultrasound hemodialysis access [[id number]] Collected: 02/09/25 0847 Order Status: Completed Updated: 02/09/25 1506 Narrative: Vascular Upper Extremities Arterial Duplex Procedure Demographics Patient Name YANG Norris Age 54 Patient Number [id number] Gender Female Race Unknown Ethnicity Corporate ID [id number] Height 66 Date of 1970 Weight 268 Accession Number [id number] BSA 2.27 m^2 Room Number 400 BMI 43.26 kg/m^2 Referring Physician ERNST AVILA Physician Assistant To [employer] OLIVIA Blount Procedure Type of Study: Extremities Arteries: Upper Extremities Arterial Duplex, Hemodialysis Graft Access Duplex, US HEMODIALYSIS ACCESS. Impressions Summary ################################## Indication: N18.6 End stage renal disease. RIGHT: Patent Brachiocephalic AVF. VOLUME FLOW: Mid: 1044 ml/min. ################################## Allergies - Sulfa. Patient Status:Inpatient . Study Location:Portable. Technical Quality:Adequate visualization. Risk Factors History of Disease + + + + !Diagnosis !Date !Comments ! + + + + !Diabetes ! ! ! + + + + !CAD ! ! ! + + + + !Hypertension ! ! ! + + + + !Hyperlipidemia ! ! ! + + + + !Renal failure ! ! ! + + + + Velocities are measured in cm/s ; Diameters are measured in mm Signature Impression: Acute right forearm brachiocephalic fistula surgical site infection with dehiscence after patient had picked out a scab, Staph aureus and culture and further compounded by her comorbidity. Surgical team has followed with any timing/option/threshold for surgery at their discretion. I am unable to confirm any vascular structure involvement and no prosthetic material involvement as per vascular teamat present. Patient understands deeper tissue involvement could evolve; she understands the risk for persistent/recurrent or nonhealing wounds, persistent/progressive or recurrent infection and risk for functional/limb loss etc. End-stage renal disease with hemodialysis Thursday/Thursday/Thursday with brachiocephalic fistula as above January 2025 Diabetes. Glucose control per medicine team PLAN: --IV vancomycin Cx MRSA and MRSE --check/review labs cultures and scans --Partial history per nursing staff --Discussed with microbiology --Discussed with Dr. Araiza/multidisciplinary team/nursing regarding complex set of issues, importance of antimicrobial stewardship etc. --Highly complex set of issues with high risk for further serious morbidity and other serious sequela --Monitor IV and IV antibiotic with risk for systemic complication and potential drug interactions Disposition-- awaiting clinical improvement Anticipated antibiotic plan-- Case management given orders for IV vancomycin after each dialysis This visit included the following complex service elements: Complex medical decision-making associated with antimicrobial prescribing. Managed infection prevention and treatment protocol associated with transitions of care for this complex patient. Counseled patients, family members, and/or caregivers regarding antimicrobial stewardship and resistance for the patient. Counseled patients, family members and/or caregivers regarding infection prevention. Communicated with the clinical microbiology lab. Edgar Hopper MD 02/12/2025 * Briana Araiza MD - 02/11/2025 2:26 PM EDT HOSPITALIST PROGRESS NOTE Patient: Carla Burkett Date: 02/11/2025 Subjective Date of Service: 02/11/2025 Having some nausea and vomiting. Asking to change diet to liquids Review of Systems Constitutional: Negative for chills and fever. Respiratory: Negative for cough and shortness of breath. Cardiovascular: Negative for chest pain and palpitations. Gastrointestinal: Positive for nausea and vomiting. Negative for abdominal pain and diarrhea. Musculoskeletal: Negative for myalgias. Neurological: Negative for weakness and headaches. Objective Vitals: Temp: [97.8 ??F (36.6 ??C)-98.2 ??F (36.8 ??C)] 98.2 ??F (36.8 ??C) Pulse: [80-93] 81 Resp: [16-18] 18 BP: (116-146)/(53-80) 132/73 Intake/Output: Intake/Output Summary (Last 24 hours) at 02/11/2025 1426 Last data filed at 02/10/2025 1740 Gross per 24 hour Intake 500 ml Output 2400 ml Net -1900 ml Physical exam: Physical Exam Constitutional: Appearance: Normal appearance. She is obese. HENT: Head: Normocephalic. Eyes: Conjunctiva/sclera: Conjunctivae normal. Cardiovascular: Rate and Rhythm: Normal rate and regular rhythm. Heart sounds: No murmur heard. Pulmonary: Effort: No respiratory distress. Breath sounds: Normal breath sounds. No wheezing. Abdominal: General: Bowel sounds are normal. Palpations: Abdomen is soft. Tenderness: There is no abdominal tenderness. Musculoskeletal: Comments: S/p TMA Skin: Comments: Incision RUE slightly red with cream-colored purulence Neurological: General: No focal deficit present. Mental Status: She is alert and oriented to person, place, and time. Psychiatric: Mood and Affect: Mood normal. Behavior: Behavior normal. Pertinent Recent Radiology: CT right upper extremity 02/08: Abnormal soft tissue prominence with surrounding stranding in the antecubital region, superficial cellulitis, no abscess or gas Upper extremity ultrasound 02/09: Patent brachiocephalic AVF Assessment and Plan #Right upper extremity cellulitis AV fistula incision site Vascular surgery following: Recommend antibiotics, signed off 02/10 Does not meet sepsis criteria WBC normal at 8.7, CRP down to 11 Pharmacy to dose vancomycin Empiric cefazolin Wound culture + MRSA and coag negative staph ID following #ESRD on HD Continue MWF schedule Nephrology following Renal diet #Diabetes with hyperglycemia Glargine 10 units daily SSI #Nausea and vomiting Supportive care Code Status: Current Code Status Full code Discharge Planning: Barriers to discharge/reason for continued hospitalization: Continue IV antibiotics. Awaiting finalculture results to decide antibiotic plan. Expected (tentative) discharge in: 1-2 days Expected discharge disposition: [facility] facility, [facility] Additional discharge needs: PCP follow-up, nephrology follow-up, transportation Signed: Briana Araiza MD 02/11/2025, 12:15 PM * Nataliya Cain MD - 02/11/2025 1:59 PM EDT Images from the original note were not included. Subjective: Patient was seen and examined with all infection control measures. NAD, afebrile. Hospital Course: Carla Burkett is a 54 y.o. female well-known to my practice with history of end-stage renaldisease on chronic hemodialysis on a Thursday, and Thursday schedule who had recently AV fistula creation. It was noted that the surgical site was slightly inflamed last week and the patient was started on p.o. doxycycline. A scab was formed apparently however the patient had picked on the scab leading to what appears to be infected ulcer at the vascular access site. Patient [facility] for further evaluation by vascular surgery and possible need for IV antibiotic initiation. Nephrology consult was requested by the primary team. Allergies: Sulfa (Sulfonamide Antibiotics) and Tylox [Oxycodone-Acetaminophen] Home Medications: Prior to Admission medications Medication Sig Start Date End Date Taking? Authorizing Provider acetaminophen (TYLENOL) 500 MG tablet Take 1 tablet (500 mg total) by mouth every 6 (six) hours as needed for pain. Yes Historical Provider, amLODIPine (NORVASC) 10 MG tablet Take 1 tablet (10 mg total) by mouth daily. 12/12/22 Yes Historical Provider, aspirin 81 MG EC tablet Take 1 tablet (81 mg total) by mouth daily. 12/01/22 Yes Historical Provider, atorvastatin (LIPITOR) 40 MG tablet Take 1 tablet (40 mg total) by mouth nightly. 12/03/22 Yes Historical Provider, baclofen (LIORESAL) 5 mg tab Take 1 tablet (5 mg total) by mouth every night as needed for muscle spasms. Yes Historical Provider, calcitonin salmon, (MIACALCIN) 200 unit/actuation nasal spray [place] 1 spray into one nostril daily. Yes Historical Provider, calcium carbonate 600mg (Caltrate) 600 mg calcium (1,500 mg) tab Take 1 tablet (1,500 mg total) by mouth daily. 04/10/24 Yes Historical Provider, carvediloL (COREG) 12.5 MG tablet Take 1 tablet (12.5 mg total) by mouth 2 (two) times daily. 12/06/22 Yes Historical Provider, diphenhydrAMINE (BENADRYL) 25 mg tablet Take 1 tablet (25 mg total) by mouth 3 (three) times daily as needed for itching. Yes Historical Provider, famotidine (PEPCID) 20 MG tablet Take 1 tablet (20 mg total) by mouth 2 (two) times daily. Yes Historical Provider, fexofenadine (DANIELLE) 180 MG tablet Take 1 tablet (180 mg total) by mouth daily. Yes Historical Provider, gabapentin (NEURONTIN) 300 MG capsule Take 1 capsule (300 mg total) by mouth nightly. 02/04/24 Yes Historical Provider, insulin aspart U-100 (NovoLOG) 100 unit/mL (3 mL) inpn Inject under the skin 3 (three) times daily before meals Sliding scale. Yes Historical Provider, isosorbide mononitrate (IMDUR) 30 MG 24 hr tablet Take 1 tablet (30 mg total) by mouth daily. Yes Historical Provider, metoclopramide (REGLAN) 10 MG tablet Take 1 tablet (10 mg total) by mouth 3 (three) times daily before meals. Yes Historical Provider, ondansetron (ZOFRAN) 4 MG tablet Take 1 tablet (4 mg total) by mouth every 8 (eight) hours as needed for nausea. Yes Historical Provider, prasugreL (EFFIENT) 10 mg tab tablet Take 1 tablet (10 mg total) by mouth daily. 02/10/24 Yes Historical ProviderMD pseudoephedrine (Sudogest) 60 MG tablet Take 1 tablet (60 mg total) by mouth every 6 (six) hours asneeded for congestion. Yes Historical Provider, sevelamer (RENAGEL) 800 MG tablet Take 1 tablet (800 mg total) by mouth 3 (three) times daily with meals. Yes Historical Provider, venlafaxine (Effexor XR) 37.5 MG 24 hr capsule Take 1 capsule (37.5 mg total) by mouth daily. Yes Historical Provider, epoetin gia (Procrit) 20,000 unit/2 mL soln injection Inject 2 mLs (20,000 Units total) under the skin once a week. Historical Provider, polyethylene glycol (MIRALAX) 17 gram/dose powder Take 17 g by mouth daily. Historical Provider, Current Medications: Current Facility-Administered Medications: acetaminophen (TYLENOL) tablet 500 mg, 500 mg, oral, Q6H PRN, Briana Araiza MD, 500 mg at 02/10/25 0413 amLODIPine (NORVASC) tablet 10 mg, 10 mg, oral, Daily, Olegario Varghese PA-C, 10 mg at 02/11/25 0949 aspirin EC tablet 81 mg, 81 mg, oral, Daily, Olegario Varghese PA-C, 81 mg at 02/11/25 0948 atorvastatin (LIPITOR) tablet 40 mg, 40 mg, oral, Every Night, Olegario Varghese PA-C, 40 mg at 02/10/252150 baclofen (LIORESAL) tablet 5 mg, 5 mg, oral, Every Night PRN, Briana Araiza MD, 5 mg at 02/10/252154 bisacodyL (DULCOLAX) EC tablet 10 mg, 10 mg, oral, Daily PRN OR bisacodyL (DULCOLAX) suppository 10 mg, 10 mg, rectal, Daily PRN, Olegario Varghese PA-C carvediloL (COREG) tablet 12.5 mg, 12.5 mg, oral, BID, Olegario Varghese PA-C, 12.5 mg at 02/11/25 0948 ceFAZolin (ANCEF) 1 g in sodium chloride 0.9 % (NS) 50 mL BLANCA IVPB, 1 g, intravenous, Q24H, Briana Araiza MD, IVPB Stopped at 02/10/251854 dextrose 50% (D50W) injection 25 g, 25 g, intravenous, Q15 Min PRN, Olegario Varghese PA-C gabapentin (NEURONTIN) capsule 300 mg, 300 mg, oral, Every Night, Olegario Varghese PA-C, 300 mg at 02/10/252150 glucagon injection 1 mg, 1 mg, intraMUSCULAR, Q15 Min PRN, Olegario Varghese PA-C glucose chew tab 16 g, 16 g, oral, Q15 Min PRN, Olegario Varghese PA-C heparin injection 5,000 Units, 5,000 Units, subcutaneous, Q8H, Arabella Luu, [employer], 5,000 Units at 02/11/25 1214 hydrALAZINE (APRESOLINE) injection 10 mg, 10 mg, intravenous, Q6H PRN, Olegario Varghese PA-C insulin lispro (HUMALOG, ADMELOG) injection 0-6 Units, 0-6 Units, subcutaneous, 4x Daily AC, SHERLY Young, 3 Units at 02/11/25 1214 isosorbide mononitrate (IMDUR) 24 hr tablet 30 mg, 30 mg, oral, Daily, Olegario Varghese PA-C, 30 mg at 02/11/25 0948 lidocaine (LIDODERM) patch 4%, 1 patch, transdermal, Q24H, DAMIEN Chatterjee, 1 patch at 02/11/25 0544 melatonin tablet 3 mg, 3 mg, oral, Every Night PRN, Olegario Varghese PA-C ondansetron (ZOFRAN-ODT) disintegrating tablet 4 mg, 4 mg, oral, Q8H PRN OR ondansetron (ZOFRAN) injection 4 mg, 4 mg, intravenous, Q8H PRN, Olegario Varghese PA-C, 4 mg at 02/11/25 0728 polyethylene glycol (GLYCOLAX) packet 17 g, 17 g, oral, Daily PRN, Olegario Varghese PA-C prasugreL HCl (EFFIENT) tablet 10 mg, 10 mg, oral, Daily, Olegario Varghese PA-C, 10 mg at 02/11/25 1033 promethazine (PHENERGAN) 12.5 mg in sodium chloride 0.9 % (NS) 50 mL IVPB (Immediate Use Only), 12.5 mg, intravenous, Q6H PRN, Pablo Yuan PA-C, IVPB Stopped at 02/11/25 0113 promethazine (PHENERGAN) tablet 25 mg, 25 mg, oral, Q6H PRN, Pablo Yuan PA-C sevelamer (RENAGEL) tablet 800 mg, 800 mg, oral, TID with meals, Olegario Varghese PA-C, 800 mg at 02/11/25 1213 traMADoL (ULTRAM) tablet 50 mg, 50 mg, oral, Q6H PRN, Briana Araiza MD, 50 mg at 02/10/252036 vancomycin (VANCOCIN) 1,000 mg in sodium chloride 0.9% (NS) non-DEHP 250 mL IVPB, 1,000 mg, intravenous, Once per day on Thursday, Olegario Varghese PA-C, IVPB Stopped at 02/10/252000 venlafaxine XR (EFFEXOR-XR) 24 hr capsule 37.5 mg, 37.5 mg, oral, Daily, Olegario Varghese PA-C, 37.5mg at 02/11/25 0948 Review of Systems Constitutional: Positive for fatigue. HENT: Negative. Eyes: Negative. Respiratory: Negative. Cardiovascular: Positive for leg swelling. Gastrointestinal: Negative. Endocrine: Negative. Genitourinary: Negative. Musculoskeletal: Negative. Skin: Positive for wound (right AVF site with infected ulcer). Allergic/Immunologic: Negative. Neurological: Negative. Hematological: Negative. Psychiatric/Behavioral: Negative. All other systems reviewed and are negative. Vitals Blood pressure 132/73, pulse 81, temperature 98.2 ??F (36.8 ??C), resp. rate 18, height 1.676 m (5'6 ), weight 121.6 kg (268 lb), SpO2 95%. Physical Exam Vitals and nursing note reviewed. Constitutional: Appearance: Normal appearance. She is obese. HENT: Head: Normocephalic and atraumatic. Nose: Nose [...] Skin: General: Skin is warm and dry. Findings: Lesion (right AVF site with infected ulcer) present. Neurological: General: No focal deficit present. Mental Status: She is alert and oriented to person, place, and time. Mental status is at baseline. Psychiatric: Mood and Affect: Mood normal. Behavior: Behavior normal. Thought Content: Thought content normal. Judgment: Judgment normal. Labs: Recent Results (from the past 72 hours) CBC with Auto Diff Collection Time: 02/08/25 4:00 PM Result Value Ref Range WBC 8.9 4.0 - 10.0 K/??L RBC 3.28 (L) 3.93 - 5.22 M/??L Hemoglobin 10.7 (L) 11.2 - 15.7 GM/DL Hematocrit 32.0 (L) 34.1 - 44.9 % MCV 98 (H) 79 - 95 fL MCH 32.6 (H) 25.6 - 32.2 pg MCHC 33.4 32.2 - 35.5 GM/DL RDW 13.2 11.7 - 14.4 % Platelets 320 140 - 375 K/CU MM MPV 9.6 9.4 - 12.3 fL % Neutros 65 34 - 71 % % Lymphs 25 19 - 52 % % Monos 6 5 - 13 % % Eos 2 1 - 6 % % Baso 1 0 - 1 % NRBC Absolute <0.01 0 - 0.012 K/ul # Neutros 5.86 1.56 - 6.13 K/??L # Lymphs 2.24 1.18 - 3.74 K/??L # Monos 0.57 0.24 - 0.86 K/??L # Eos 0.14 0.04 - 0.36 K/??L # Baso 0.05 0.01 - 0.08 K/??L Immature Granulocytes-Relative 0.90 (H) 0.01 - 0.43 % # IG 0.08 (H) 0.00 - 0.03 K/uL Basic Metabolic Panel Collection Time: 02/08/25 4:00 PM Result Value Ref Range Sodium 142 136 - 145 meq/L Potassium 3.8 3.4 - 5.1 meq/L CO2 30 (H) 22 - 29 meq/L Chloride 99 98 - 112 meq/L Glucose 155 (H) 74 - 100 mg/dL BUN 21.5 (H) 9.8 - 20.1 mg/dL Creatinine 3.62 (H) 0.57 - 1.11 mg/dL BUN/Creatinine 6 (L) 8 - 20 Calcium 9.0 8.4 - 10.2 mg/dL Anion Gap 17 (H) 4 - 12 eGFR (mL/min/1.73m2) 14 (L) >=60 mL/min/1.73m2 Osmolality Calc 289.4 mOsm/kg Blood Culture Collection Time: 02/08/25 4:00 PM Specimen: Blood Result Value Ref Range Result No growth in 48 hours Lactic Acid with reflex (SJ) Collection Time: 02/08/25 4:00 PM Result Value Ref Range Lactic Acid Level (mmol/L) 1.7 0.5 - 2.2 mmol/L Sedimentation rate Collection Time: 02/08/25 4:00 PM Result Value Ref Range Sed Rate 35 (H) 0 - 30 mm/HR C-Reactive Protein Collection Time: 02/08/25 4:00 PM Result Value Ref Range CRP 18.6 (H) 0.0 - 5.0 mg/L Blood Culture Collection Time: 02/08/25 4:17 PM Specimen: Blood Result Value Ref Range Result No growth in 48 hours Blue Top Extra Tubes Collection Time: 02/08/25 4:17 PM Result Value Ref Range HOLD SPECIMEN (SJ - BKR) Hold for add-ons. PST Top Extra Tubes Collection Time: 02/08/25 4:17 PM Result Value Ref Range HOLD SPECIMEN (SJ - BKR) Hold for add-ons. Glucose, Nova Meter Collection Time: 02/08/25 10:58 PM Result Value Ref Range POC-GLUCOSE 131 (H) 70 - 110 mg/dL Mechanical Test Engineer [id number] Wound Culture + Gram Stain Collection Time: 02/08/25 11:19 PM Specimen: Arm, Right Upper; Wound Result Value Ref Range Result (A) Moderate Growth Methicillin resistant Staphylococcus aureus Result Moderate Growth Staphylococcus epidermidis (A) Gram Stain Result No cells seen Gram Stain Result Few gram positive cocci in pairs and clusters Gram Stain Result Few gram positive cocci Susceptibility Methicillin resistant Staphylococcus aureus - (no method available) Amoxicillin + Clavulanate Resistant Ampicillin Resistant Ampicillin + Sulbactam Resistant Azithromycin Resistant Cefazolin Resistant Cefepime Resistant Cefotaxime Resistant Cefoxitin Screen Positive Ceftaroline Susceptible Ceftriaxone Resistant Ciprofloxacin Resistant Clindamycin Intermediate Daptomycin Susceptible Erythromycin Resistant Gentamicin Resistant Imipenem Resistant Inducible Clindamycin Negative Levofloxacin Resistant Linezolid Susceptible Meropenem Resistant Oxacillin Resistant Penicillin Resistant Rifampin Susceptible Tetracycline Susceptible Trimethoprim + Sulfamethoxazole Susceptible Vancomycin Susceptible CBC with automated diff Collection Time: 02/09/25 4:41 AM Result Value Ref Range WBC 8.4 4.0 - 10.0 K/??L RBC 3.46 (L) 3.93 - 5.22 M/??L Hemoglobin 11.0 (L) 11.2 - 15.7 GM/DL Hematocrit 34.5 34.1 - 44.9 % MCV 100 (H) 79 - 95 fL MCH 31.8 25.6 - 32.2 pg MCHC 31.9 (L) 32.2 - 35.5 GM/DL RDW 13.4 11.7 - 14.4 % Platelets 313 140 - 375 K/CU MM MPV 9.7 9.4 - 12.3 fL % Neutros 59 34 - 71 % % Lymphs 30 19 - 52 % % Monos 7 5 - 13 % % Eos 2 1 - 6 % % Baso 1 0 - 1 % NRBC Absolute <0.01 0 - 0.012 K/ul # Neutros 4.97 1.56 - 6.13 K/??L # Lymphs 2.54 1.18 - 3.74 K/??L # Monos 0.62 0.24 - 0.86 K/??L # Eos 0.16 0.04 - 0.36 K/??L # Baso 0.05 0.01 - 0.08 K/??L Immature Granulocytes-Relative 1.10 (H) 0.01 - 0.43 % # IG 0.09 (H) 0.00 - 0.03 K/uL Comprehensive metabolic panel Collection Time: 02/09/25 4:41 AM Result Value Ref Range Sodium 142 136 - 145 meq/L Potassium 4.0 3.4 - 5.1 meq/L Chloride 100 98 - 112 meq/L CO2 31 (H) 22 - 29 meq/L Calcium 9.0 8.4 - 10.2 mg/dL Glucose 197 (H) 74 - 100 mg/dL BUN 29.8 (H) 9.8 - 20.1 mg/dL Creatinine 4.72 (H) 0.57 - 1.11 mg/dL BUN/Creatinine 6 (L) 8 - 20 eGFR (mL/min/1.73m2) 10 (L) >=60 mL/min/1.73m2 Albumin 3.0 (L) 3.5 - 5.0 g/dL Alkaline Phosphatase 175 (H) 40 - 150 U/L ALT 35 (H) <=34 U/L AST 28 11 - 34 U/L Total Bilirubin 0.4 0.2 - 1.2 mg/dL Protein, Total 6.6 6.4 - 8.3 g/dL Globulin 3.6 2.5 - 4.1 g/dL Anion Gap 15 (H) 4 - 12 A/G Ratio 0.8 0.7 - 1.9 Osmolality Calc 294.7 mOsm/kg Glucose, Nova Meter Collection Time: 02/09/25 7:32 AM Result Value Ref Range POC-GLUCOSE 181 (H) 70 - 110 mg/dL Mechanical Test Engineer [id number] Glucose, Nova Meter Collection Time: 02/09/25 11:16 AM Result Value Ref Range POC-GLUCOSE 154 (H) 70 - 110 mg/dL Mechanical Test Engineer [id number] Glucose, Nova Meter Collection Time: 02/09/25 4:16 PM Result Value Ref Range POC-GLUCOSE 232 (H) 70 - 110 mg/dL Mechanical Test Engineer [id number] Glucose, Nova Meter Collection Time: 02/09/25 8:08 PM Result Value Ref Range POC-GLUCOSE 172 (H) 70 - 110 mg/dL Mechanical Test Engineer [id number] Glucose, Nova Meter Collection Time: 02/10/25 7:52 AM Result Value Ref Range POC-GLUCOSE 235 (H) 70 - 110 mg/dL Mechanical Test Engineer [id number] Glucose, Nova Meter Collection Time: 02/10/25 12:23 PM Result Value Ref Range POC-GLUCOSE 274 (H) 70 - 110 mg/dL Mechanical Test Engineer [id number] Glucose, Nova Meter Collection Time: 02/10/25 6:20 PM Result Value Ref Range POC-GLUCOSE 149 (H) 70 - 110 mg/dL Mechanical Test Engineer [id number] Glucose, Nova Meter Collection Time: 02/10/25 7:54 PM Result Value Ref Range POC-GLUCOSE 176 (H) 70 - 110 mg/dL Mechanical Test Engineer [id number] Basic Metabolic Panel Collection Time: 02/11/25 5:31 AM Result Value Ref Range Sodium 135 (L) 136 - 145 meq/L Potassium 4.0 3.4 - 5.1 meq/L CO2 25 22 - 29 meq/L Chloride 98 98 - 112 meq/L Glucose 216 (H) 74 - 100 mg/dL BUN 19.4 9.8 - 20.1 mg/dL Creatinine 4.17 (H) 0.57 - 1.11 mg/dL BUN/Creatinine 5 (L) 8 - 20 Calcium 7.9 (L) 8.4 - 10.2 mg/dL Anion Gap 16 (H) 4 - 12 eGFR (mL/min/1.73m2) 12 (L) >=60 mL/min/1.73m2 Osmolality Calc 279.0 mOsm/kg CBC with automated diff Collection Time: 02/11/25 5:31 AM Result Value Ref Range WBC 8.7 4.0 - 10.0 K/??L RBC 3.68 (L) 3.93 - 5.22 M/??L Hemoglobin 12.0 11.2 - 15.7 GM/DL Hematocrit 35.9 34.1 - 44.9 % MCV 98 (H) 79 - 95 fL MCH 32.6 (H) 25.6 - 32.2 pg MCHC 33.4 32.2 - 35.5 GM/DL RDW 12.9 11.7 - 14.4 % Platelets 291 140 - 375 K/CU MM MPV 9.3 (L) 9.4 - 12.3 fL % Neutros 66 34 - 71 % % Lymphs 24 19 - 52 % % Monos 7 5 - 13 % % Eos 2 1 - 6 % % Baso 1 0 - 1 % NRBC Absolute <0.01 0 - 0.012 K/ul # Neutros 5.71 1.56 - 6.13 K/??L # Lymphs 2.12 1.18 - 3.74 K/??L # Monos 0.58 0.24 - 0.86 K/??L # Eos 0.17 0.04 - 0.36 K/??L # Baso 0.04 0.01 - 0.08 K/??L Immature Granulocytes-Relative 0.70 (H) 0.01 - 0.43 % # IG 0.06 (H) 0.00 - 0.03 K/uL C-Reactive Protein Collection Time: 02/11/25 5:31 AM Result Value Ref Range CRP 11.0 (H) 0.0 - 5.0 mg/L Glucose, Nova Meter Collection Time: 02/11/25 7:36 AM Result Value Ref Range POC-GLUCOSE 234 (H) 70 - 110 mg/dL Mechanical Test Engineer [id number] Glucose, Nova Meter Collection Time: 02/11/25 11:42 AM Result Value Ref Range POC-GLUCOSE 240 (H) 70 - 110 mg/dL Mechanical Test Engineer [id number] Imaging: Ultrasound hemodialysis access Result Date: 02/09/2025 Vascular Upper Extremities Arterial Duplex Procedure Demographics Patient Name YANG Norris Age 54 Patient Number [id number] Gender Female Race Unknown Ethnicity Corporate ID [id number] Height 66 Date of 1970 Weight 268 Accession Number [id number] BSA 2.27 m^2 Room Number 400 BMI 43.26 kg/m^2 Referring Physician ERNST AVILA Physician Assistant To The Dean OLIVIA Blount Procedure Type of Study: Extremities Arteries: Upper Extremities Arterial Duplex, Hemodialysis Graft Access Duplex, US HEMODIALYSIS ACCESS. Impressions Summary ################################## Indication: N18.6 End stage renal disease. RIGHT: Patent Brachiocephalic AVF. VOLUME FLOW: Mid: 1044 ml/min. ################################## Allergies - Sulfa. Patient Status:Inpatient . Study Location:Portable. Technical Quality:Adequate visualization. Risk Factors History of Disease + + +-------- + !Diagnosis !Date !Comments ! + + + + !Diabetes ! ! ! + + +-------- + !CAD ! ! ! + + + + !Hypertension ! ! ! + + + + !Hyperlipidemia ! ! ! + + + + !Renal failure ! ! ! + + + + Velocities are measured in cm/s ; Diameters are measured in mm Signature CT upper extremity without contrast right Result Date: 02/08/2025 CT RIGHT UPPER EXTREMITY, ATTENTION ELBOW REGION HISTORY: Pain, TECHNIQUE: Thin section axial CT with sagittal and coronal reconstructions. FINDINGS: No fracture or bone destruction is present. Thereis stranding which overlies the olecranon and posteromedial distal humerus which is suspicious for cellulitis. There is no gas in the soft tissues. There is stranding and soft tissue irregularity in the antecubital region which surrounds the basilic vein- antecubital vein junction. This is also in the region of the brachial artery. Given the presence of multiple surgical clips, it is not possible to differentiate chronic postoperative change from an acute inflammatory process particularly without the benefit of prior exams. No gas is seen in the soft tissues. Aside from the surgical clips, no foreign body is seen. 1. Abnormal soft tissue prominence with surrounding stranding in the antecubital region encasing the junction of the basilic and antecubital veins. Without the benefit of prior exams, it is not possible to distinguish whether this represents an acute inflammatory process or chronic postoperative change with scarring. 2. Edema and stranding along the posterior distal humerus and olecranon suggestive of superficial cellulitis. 3. No large volume abscess. No gas in the soft tissues. This study wasperformed using dose reduction techniques to achieve radiation exposure as low as reasonably achievable (ALARA). Images reviewed, interpreted, and dictated by Nirav Navarro MD Assessment: #1 end-stage renal disease on chronic hemodialysis MWF #2 h/o cardiac arrest. #3 Anemia of chronic kidney disease #4 essential hypertension #5 type 2 diabetes mellitus #6 underlying multi-vessel coronary artery disease #7 peripheral vascular disease status post left AKA #8 Infected right AVF site ulcer Plan: MWF schedule. Erythropoietin stimulating agent and IV Iron targeting Hb 10-11 g/dl. Continue her diabetic meds. Monitor renal function electrolytes and acid- base base status status closely. Avoidanceof nephrotoxic agents and renal dosing of meds. Suggest ID and Vascular consultation. Further management of other medical problems as per primary service and orthopedic surgery. Thank you for this interesting consultation and please do not hesitate to contact me with any question regarding this case. * Flaco Walker PharmD - 02/11/2025 10:03 AM EDT Images from the original note were not included. Clinical Rx Vancomycin Progress Note HPI: 54 y.o.female presents to [facility] from dialysis clinic due to bleeding and possible infection of AV fistula. Pt had fistula creation on 01/10/25 at this facility. Pt received dialysis today through tunneled CV catheter in neck. PMH of DM, ESRD on HD, CAD, HTN and HLD. Concern for surgical site infection. Consult: Vancomycin Consulting: SHERLY Anderson Indication: Skin-Soft Tissue Infection ([facility]) Goal: 12-18 mg/L Anti-infectives (From admission, onward) Start Dose/Rate Route Frequency Ordered Stop 02/08/252040 vancomycin (VANCOCIN) IV actively being dosed by Pharmacy 1 each intravenous See admin instructions 02/08/252040 Cefazolin 1gm Iv q8h Vancomycin 1gm on MWF after HD Vancomycin 1.5gm IV X1 @ 1920 Allergies as of 02/08/2025 - Review Complete 02/08/2025 Allergen Reaction Noted Sulfa (sulfonamide antibiotics) 10/10/2022 Tylox [oxycodone-acetaminophen] Nausea Only 10/10/2022 BP Min: 116/53 Min taken time: 02/10/25 2350 Max: 146/77 Max taken time: 02/10/25 1740 Temp Min: 97.8 ??F (36.6 ??C) Min taken time: 02/10/25 1740 Max: 98.1 ??F (36.7 ??C) Max taken time: 02/11/25 0405 Pulse Min: 76 Min taken time: 02/10/25 1055 Max: 84 Max taken time: 02/11/25 0410 Resp Min: 16 Min taken time: 02/10/25 2037 Max: 18 Max taken time: 02/11/25 0410 SpO2 Min: 86 % Min taken time: 02/10/25 1050 Max: 100 % Max taken time: 02/10/25 1224 Recent Labs Lab(s) Units 02/11/25 0531 02/09/25 0441 02/08/25 1600 NA meq/L 135* 142 142 K meq/L 4.0 4.0 3.8 CL meq/L 98 100 99 CO2 meq/L 25 31* 30* ANIONGAP 16* 15* 17* CREATININE mg/dL 4.17* 4.72* 3.62* BUN mg/dL 19.4 29.8* 21.5* CALCIUM mg/dL 7.9* 9.0 9.0 PROT g/dL -- 6.6 -- ALBUMIN g/dL -- 3.0* -- ALKPHOS U/L -- 175* -- AST U/L -- 28 -- ALT U/L -- 35* -- BILITOT mg/dL -- 0.4 -- Recent Labs Lab(s) Units 02/11/25 0531 02/09/25 0441 02/08/25 1600 WBC K/??L 8.7 8.4 8.9 HGB GM/DL 12.0 11.0* 10.7* HCT % 35.9 34.5 32.0* MCV fL 98* 100* 98* PLT K/CU MM 291 313 320 LYMPHOPCT % 24 30 25 NEUTROABS K/??L 5.71 4.97 5.86 CRP mg/L 11.0* -- 18.6* SEDRATE mm/HR -- -- 35* Intake/Output Summary (Last 24 hours) at 02/11/2025 1003 Last data filed at 02/10/2025 1740 Gross per 24 hour Intake 500 ml Output 2400 ml Net -1900 ml Net IO Since Admission: -950 mL [02/11/25 1003] Estimated Creatinine Clearance: 14.4 mL/min (A) (by C-G formula based on SCr of 4.17 mg/dL (H)). Microbiology Results (last 7 days) Procedure Component Value Units Date/Time Wound Culture + Gram Stain [[id number]] (Abnormal) (Susceptibility) Collected: 02/08/25 2319 Order Status: Completed Specimen: Wound from Arm, Right Upper Updated: 02/11/25 08 Result Moderate Growth Methicillin resistant Staphylococcus aureus Comment: Resistant organism requires isolation protocol. Moderate Growth Coagulase negative Staphylococcus Gram Stain Result No cells seen Few gram positive cocci in pairs and clusters Few gram positive cocci Blood Culture [[id number]] Collected: 02/08/25 1600 Order Status: Completed Specimen: Blood Updated: 02/10/25 170 Result No growth in 48 hours Narrative: Blood volume is not within specification. May compromise patient blood culture results. Blood Culture [[id number]] Collected: 02/08/25 1617 Order Status: Completed Specimen: Blood Updated: 02/10/25 170 Result No growth in 48 hours Narrative: Blood volume is not within specification. May compromise patient blood culture results. Microbiology: 02/08 Wound cx: MRSA, coagulase negative staphylococcus Levels: 02/13 AM - ordered A/P: HD on 02/10. Continue vancomycin 1000 mg MWF after HD. Last dose on 02/10. Plan for a level on 02/13 at 0400, prior to HD session. Wound culture updated on 02/11 showing moderate growth MRSA and coagulase negative staphylococcus Pharmacy to follow Thank you, Flaco Walker PharmD Ext. [phone] * Edgar Hopper MD - 02/11/2025 8:50 AM EDT Images from the original note were not included. [facility] Patient Name: Carla Burkett : 1970 Evaluating Physician: Edgar Hopper MD Chief Complaint: right arm infection Reason for Consultation: right arm surgical site infection History of present illness: Patient is a 54 y.o. female with history of diabetes, end-stage renal disease with hemodialysis q. Kolcly-Twauxgcyh-Zmzwra, right arm brachiocephalic AV fistula creation January 10, [address] Sloan; patient reports that she had picked a scab from the surgical site, subsequently had become red with drainage, culture with Staph aureus, empiric antibiotics initiated and surgical team has seen 02/11/25 culture pending; Right forearm pain is improved/dull at present, nonradiating, constant, worse with palpation, better with pain meds and 3 /10 No headache photophobia or neck stiffness. No shortness of breath cough or hemoptysis. No nausea vomiting diarrhea or abdominal pain. No dysuria hematuria or pyuria. No other new skin rash. Review of Systems 02/11/25 Constitutional-- No Fever, chills or sweats. Appetite good. No malaise. Heent-- No new vision, hearing or throat complaints. No epistaxis or oral sores. Denies odynophagiaor dysphagia. No headache, photophobia or neck stiffness. CV-- No chest pain, palpitation or syncope Resp-- No SOB, cough, or hemoptysis GI- No nausea, vomiting, or diarrhea. -- No dysuria, hematuria, or flank pain. Denies hesitancy, urgency or flank pain. Lymph- no swollen lymph nodes in neck, axilla or groin. Heme- No active bruising or bleeding MS-- no swelling or pain in the bones or joints of arms or legs. No new back pain. Neuro-- No acute focal weakness or numbness in the arms or legs. Skin-- No rash Past Medical History: Diagnosis Date C. difficile colitis Cardiac arrest ([facility]) 07/19/2024 CHF (congestive heart failure) ([facility]) 01/19/2024 Chronic kidney disease Coronary artery disease-heart stents x 2019 CTS (carpal tunnel syndrome)left Depression Diabetes mellitus ([facility]) ESRD (end stage renal disease) on dialysis ([facility]) Hyperlipidemia, unspecified 10/06/2022 Hypertension Kidney failure Obstructive sleep apnea Osteomyelitis ([facility]) resolved Peripheral vascular disease due to secondary diabetes ([facility]) Post-menopausal Wound of right foot wrapped Past Surgical History: Procedure Laterality Date AMPUTATION,TOE Right BELOW KNEE LEG AMPUTATION Left toes first then debridement CARPAL TUNNEL RELEASE Right CREATION,A-V FISTULA Right 01/10/2025 Procedure: LEFT IJ tunneled catheter exchanged RIGHT brachiocephalic arteriovenous fistula creation; Surgeon: Baljinder Sloan MD; [facility]; Service: Vascular Surgery; Laterality: Right; CREATION,PERICARDIAL WINDOW N/A 12/19/2022 Procedure: CREATION, PERICARDIAL WINDOW; Surgeon: Bogdan Hernandez IV, MD; [facility]; Service: CV Surgery; Laterality: N/A; AO#3, AVAIL TF, 3HR(A) GALLBLADDER SURGERY heart stents INSERTION,DIALYSIS CATHETER KNEE ARTHROSCOPY Right ORIF,FEMUR Left 08/10/2023 Procedure: ORIF LT FEMUR); Surgeon: Otf Birmingham MD; [facility]; Service: OrthopaedicSurgery; Laterality: Left; AO# 4, AVAIL TF melvi left hip TONSILLECTOMY TRANSPOSITION,VEIN Left 04/20/2023 Procedure: (LT UPPER EXTREMITY AV FISTULA); Surgeon: Baljinder Sloan MD; [facility]; Service: Vascular; Laterality: Left; IN 0600, 1 HR (R) Social History Socioeconomic History Marital status: Single Spouse name: Not on file Number of children: Not on file Years of education: Not on file Highest education level: Not on file Occupational History Not on file Tobacco Use Smoking status: Some Days Types: Cigarettes Smokeless tobacco: Former Tobacco comments: Vap daily Substance and Sexual Activity Alcohol use: Not Currently Drug use: Not Currently Types: Marijuana Comment: yrs ago Sexual activity: Not on file Other Topics Concern Not on file Social History Narrative Not on file Social Drivers of Health Financial Resource Strain: Low Risk (02/09/2025) Financial Resource Strain Struggle to pay for basics: Not hard at all Food Insecurity: No Food Insecurity (02/09/2025) Food Insecurity Food run out past 12 months: Never true Food did not last past 12 months: Never true Transportation: No Transportation Needs (02/09/2025) Transportation Needs Transportation unreliable past 12 months: No Physical Activity: Inactive (02/09/2025) Physical Activity Minutes of exercise per week: 0 Social Connections: Unknown (02/09/2025) Family and Community Support Help with Day to Day Activities: I get all the help I need Feeling Lonely or Isolated: 0 No family history on file. Allergies Allergen Reactions Sulfa (Sulfonamide Antibiotics) Tylox [Oxycodone-Acetaminophen] Nausea Only Pt states she can tolerate hydrocodone (verified 12/19/22) @Scheduled Meds: amLODIPine 10 mg oral Daily 10 mg at 02/10/25 0901 aspirin 81 mg oral Daily 81 mg at 02/10/25 0901 atorvastatin 40 mg oral Every Night 40 mg at 02/10/25 2151 carvediloL 12.5 mg oral BID 12.5 mg at 02/10/25 215 ceFAZolin 1 g intravenous Q24H IVPB Stopped at 02/10/25 1855 gabapentin 300 mg oral Every Night 300 mg at 02/10/25 2151 heparin 5,000 Units subcutaneous Q8H 5,000 Units at 02/11/25 0544 insulin lispro 0-6 Units subcutaneous 4x Daily AC 3 Units at 02/11/25 0739 isosorbide mononitrate 30 mg oral Daily 30 mg at 02/10/25 0901 lidocaine 1 patch transdermal Q24H 1 patch at 02/11/25 0544 prasugreL HCl 10 mg oral Daily 10 mg at 02/10/25 0901 sevelamer 800 mg oral TID with meals 800 mg at 02/10/25 1234 vancomycin 1,000 mg intravenous Once per day on Thursday IVPB Stopped at 02/10/252000 venlafaxine XR 37.5 mg oral Daily 37.5 mg at 02/10/25900 Continuous Infusions: Current Facility-Administered Medications Medication Dose Route Frequency Provider Last Rate Last Admin acetaminophen (TYLENOL) tablet 500 mg 500 mg oral Q6H PRN Briana Araiza MD 500 mg at 02/10/25 0413 amLODIPine (NORVASC) tablet 10 mg 10 mg oral Daily Olegario Varghese PA-C 10 mg at 02/10/25900 aspirin EC tablet 81 mg 81 mg oral Daily Olegario Varghese PA-C 81 mg at 02/10/25900 atorvastatin (LIPITOR) tablet 40 mg 40 mg oral Every Night Olegario Varghese PA-C 40 mg at 02/10/252150 baclofen (LIORESAL) tablet 5 mg 5 mg oral Every Night PRN Briana Araiza MD 5 mg at 02/10/252154 bisacodyL (DULCOLAX) EC tablet 10 mg 10 mg oral Daily PRN Olegario Varghese PA-C Or bisacodyL (DULCOLAX) suppository 10 mg 10 mg rectal Daily PRN Olegario Varghese PA-C carvediloL (COREG) tablet 12.5 mg 12.5 mg oral BID Olegario Varghese PA-C 12.5 mg at 02/10/252150 ceFAZolin (ANCEF) 1 g in sodium chloride 0.9 % (NS) 50 mL BLANCA IVPB 1 g intravenous Q24H Briana Araiza MD IVPB Stopped at 02/10/251854 dextrose 50% (D50W) injection 25 g 25 g intravenous Q15 Min PRN Olegario Varghese PA-C gabapentin (NEURONTIN) capsule 300 mg 300 mg oral Every Night Olegario Varghese PA-C 300 mg at 02/10/252150 glucagon injection 1 mg 1 mg intraMUSCULAR Q15 Min PRN Olegario Varghese PA-C glucose chew tab 16 g 16 g oral Q15 Min PRN Olegario Varghese PA-C heparin injection 5,000 Units 5,000 Units subcutaneous Q8H Arabella Luu, [employer] 5,000 Units at 02/11/25 0544 hydrALAZINE (APRESOLINE) injection 10 mg 10 mg intravenous Q6H PRN Olegario Varghese PA-C insulin lispro (HUMALOG, ADMELOG) injection 0-6 Units 0-6 Units subcutaneous 4x Daily AC Olegario Varghese PA-C 3 Units at 02/11/25 0739 isosorbide mononitrate (IMDUR) 24 hr tablet 30 mg 30 mg oral Daily Olegario Varghese PA-C 30 mg at 02/10/25 0901 lidocaine (LIDODERM) patch 4% 1 patch transdermal Q24H Edgar Reis PA-C 1 patch at 02/11/25 0544 melatonin tablet 3 mg 3 mg oral Every Night PRN Olegario Varghese PA-C ondansetron (ZOFRAN-ODT) disintegrating tablet 4 mg 4 mg oral Q8H PRN Olegario Varghese PA-C Or ondansetron (ZOFRAN) injection 4 mg 4 mg intravenous Q8H PRN DAMIEN Dunham 4 mg at 02/11/25 0728 polyethylene glycol (GLYCOLAX) packet 17 g 17 g oral Daily PRN Olegario Varghese PA-C prasugreL HCl (EFFIENT) tablet 10 mg 10 mg oral Daily Olegario Varghese PA-C 10 mg at 02/10/25 0901 promethazine (PHENERGAN) 12.5 mg in sodium chloride 0.9 % (NS) 50 mL IVPB (Immediate Use Only) 12.5mg intravenous Q6H PRN Pablo Yuan PA-C IVPB Stopped at 02/11/25 0113 promethazine (PHENERGAN) tablet 25 mg 25 mg oral Q6H PRN Pablo Yuan PA-C sevelamer (RENAGEL) tablet 800 mg 800 mg oral TID with meals DAMIEN Dunham 800 mg at 02/10/25 1234 traMADoL (ULTRAM) tablet 50 mg 50 mg oral Q6H PRN Briana Araiza MD 50 mg at 02/10/252036 vancomycin (VANCOCIN) 1,000 mg in sodium chloride 0.9% (NS) non-DEHP 250 mL IVPB 1,000 mg intravenous Once per day on Thursday DAMIEN Dunham IVPB Stopped at 02/10/252000 venlafaxine XR (EFFEXOR-XR) 24 hr capsule 37.5 mg 37.5 mg oral Daily Olegario Varghese PA-C 37.5 mg at 02/10/25 0901 Physical Exam: Vital Signs Vitals: 02/10/25 2037 02/10/25 2350 02/11/25 0405 02/11/25 0410 BP: 126/62 116/53 121/62 Pulse: 83 82 84 Resp: Temp: 98.1 ??F (36.7 ??C) 98.1 ??F (36.7 ??C) 98.1 ??F (36.7 ??C) TempSrc: Oral SpO2: 99% 98% 98% Weight: Height: GENERAL: Awake and alert, in no acute distress. HEENT: Normocephalic, atraumatic. No conjunctival injection. No icterus. Oropharynx clear without evidence of thrush or exudate. NECK: Supple without nuchal rigidity. No mass. HEART: RRR; No murmur. LUNGS: Clear to auscultation bilaterally without wheezing, rales, rhonchi. Normal respiratory effort. Nonlabored. ABDOMEN: Soft, nontender, nondistended. Positive bowel sounds. No rebound or guarding. EXT: See below MSK: FROM without joint effusions noted arms/legs. SKIN: Warm and dry without cutaneous eruptions on Inspection/palpation. NEURO: Oriented to PPT. No focal deficits on motor/sensory exam at arms/legs. Right arm AV fistula surgical site with open wound/dehiscence, some slough and serosanguineous drainage but unable to express any purulence. Some induration at the rim with some vague erythema but nodiscrete mass bulge or fluctuance. No crepitus or bulla. No visible prosthetic material Laboratory Data Lab Results Component Value Date WBC 8.7 02/11/2025 HGB 12.0 02/11/2025 HCT 35.9 02/11/2025 MCV 98 (H) 02/11/2025 PLT 291 02/11/2025 Lab Results Component Value Date GLUCOSE 234 (H) 02/11/2025 CALCIUM 7.9 (L) 02/11/2025 NA 135 (L) 02/11/2025 K 4.0 02/11/2025 CO2 25 02/11/2025 CL 98 02/11/2025 BUN 19.4 02/11/2025 CREATININE 4.17 (H) 02/11/2025 Estimated Creatinine Clearance: 14.4 mL/min (A) (by C-G formula based on SCr of 4.17 mg/dL (H)). Lab Results Component Value Date ALT 35 (H) 02/09/2025 AST 28 02/09/2025 ALKPHOS 175 (H) 02/09/2025 BILITOT 0.4 02/09/2025 Lab Results Component Value Date CRP 11.0 (H) 02/11/2025 Lab Results Component Value Date SEDRATE 35 (H) 02/08/2025 Microbiology: Microbiology Results (last 7 days) Procedure Component Value Units Date/Time Wound Culture + Gram Stain [[id number]] (Abnormal) (Susceptibility) Collected: 02/08/25 2319 Order Status: Completed Specimen: Wound from Arm, Right Upper Updated: 02/11/25824 Result Moderate Growth Methicillin resistant Staphylococcus aureus Comment: Resistant organism requires isolation protocol. Moderate Growth Coagulase negative Staphylococcus Gram Stain Result No cells seen Few gram positive cocci in pairs and clusters Few gram positive cocci Blood Culture [[id number]] Collected: 02/08/25 1600 Order Status: Completed Specimen: Blood Updated: 02/10/25 1701 Result No growth in 48 hours Narrative: Blood volume is not within specification. May compromise patient blood culture results. Blood Culture [[id number]] Collected: 02/08/25 1617 Order Status: Completed Specimen: Blood Updated: 02/10/25 1701 Result No growth in 48 hours Narrative: Blood volume is not within specification. May compromise patient blood culture results. Radiology: Radiology Results (last 3 days) Procedure Component Value Units Date/Time Ultrasound hemodialysis access [[id number]] Collected: 02/09/25 0847 Order Status: Completed Updated: 02/09/25 1506 Narrative: Vascular Upper Extremities Arterial Duplex Procedure Demographics Patient Name YANG Norris Age 54 Patient Number [id number] Gender Female Race Unknown Ethnicity Corporate ID [id number] Height 66 Date of 1970 Weight 268 Accession Number [id number] BSA 2.27 m^2 Room Number 400 BMI 43.26 kg/m^2 Referring Physician ERNST AVILA Physician Assistant To The [facility] OLIVIA Blount Procedure Type of Study: Extremities Arteries: Upper Extremities Arterial Duplex, Hemodialysis Graft Access Duplex, US HEMODIALYSIS ACCESS. Impressions Summary ################################## Indication: N18.6 End stage renal disease. RIGHT: Patent Brachiocephalic AVF. VOLUME FLOW: Mid: 1044 ml/min. ################################## Allergies - Sulfa. Patient Status:Inpatient . Study Location:Portable. Technical Quality:Adequate visualization. Risk Factors History of Disease + + + + !Diagnosis !Date !Comments ! + + + + !Diabetes ! ! ! + + + + !CAD ! ! ! + + + + !Hypertension ! ! ! + + + + !Hyperlipidemia ! ! ! + + + + !Renal failure ! ! ! + + + + Velocities are measured in cm/s ; Diameters are measured in mm Signature CT upper extremity without contrast right [[id number]] Collected: 02/08/25 7623 Order Status: Completed Updated: 02/08/25 1281 Narrative: CT RIGHT UPPER EXTREMITY, ATTENTION ELBOW REGION HISTORY: Pain, TECHNIQUE: Thin section axial CT with sagittal and coronal reconstructions. FINDINGS: No fracture or bone destruction is present. There is stranding which overlies the olecranon and posteromedial distal humerus which is suspicious for cellulitis. There is no gas in the soft tissues. There is stranding and soft tissue irregularity in the antecubital region which surrounds the basilic vein-antecubital vein junction. This is also in the region of the brachial artery. Given the presence of multiple surgical clips, it is not possible to differentiate chronic postoperative change from an acute inflammatory process particularly without the benefit of prior exams. No gas is seen in the soft tissues. Aside from the surgical clips, no foreign body is seen. Impression: 1. Abnormal soft tissue prominence with surrounding stranding in the antecubital region encasing the junction of the basilic and antecubital veins. Without the benefit of prior exams, it is not possible to distinguish whether this represents an acute inflammatory process or chronic postoperative change with scarring. 2. Edema and stranding along the posterior distal humerus and olecranon suggestive of superficial cellulitis. 3. No large volume abscess. No gas in the soft tissues. This study was performed using dose reduction techniques to achieve radiation exposure as low as reasonably achievable (ALARA). Images reviewed, interpreted, and dictated by Nirav Navarro MD Impression: Acute right forearm brachiocephalic fistula surgical site infection with dehiscence after patient had picked out a scab, Staph aureus and culture and further compounded by her comorbidity. Surgical team has followed with any timing/option/threshold for surgery at their discretion. I am unable to confirm any vascular structure involvement and no prosthetic material involvement as per vascular team at present. Patient understands deeper tissue involvement could evolve; she understands the risk for persistent/recurrent or nonhealing wounds, persistent/progressive or recurrent infection and riskfor functional/limb loss etc. End-stage renal disease with hemodialysis Thursday/Thursday/Thursday with brachiocephalic fistula as above January 2025 Diabetes. Glucose control per medicine team PLAN: --IV vancomycin, cefazolin Cx MRSA and CN staph, pending BIJAN for CN staph --check/review labs cultures and scans --Partial history per nursing staff --Discussed with microbiology --Discussed with Dr. Araiza/multidisciplinary team/nursing regarding complex set of issues, importance of antimicrobial stewardship etc. --Highly complex set of issues with high risk for further serious morbidity and other serious sequela --Monitor IV and IV antibiotic with risk for systemic complication and potential drug interactions Disposition-- awaiting clinical improvement Anticipated antibiotic plan--I anticipate IV antibiotics after each dialysis; I could see her in close follow-up in office Thursday to monitor for culture data and additional adjustments; Case management given orders for IV vancomycin/cefazolin after each dialysis This visit included the following complex service elements: Complex medical decision-making associated with antimicrobial prescribing. Managed infection prevention and treatment protocol associated with transitions of care for this complex patient. Counseled patients, family members, and/or caregivers regarding antimicrobial stewardship and resistance for the patient. Counseled patients, family members and/or caregivers regarding infection prevention. Communicated with the clinical microbiology lab. Edgar Hopper MD 02/11/2025 * Mak Vizcarra RN - 02/11/2025 7:43 AM EDT 0700: Patient called out after having another episode of nausea and vomiting this morning. Patient had 2x additional episodes of vomiting since yesterday evening treated with IV zofran the first time, and phenergan the second time. The episodes began after returning from her dialysis around 18:00. Morning episode of vomiting was treated with Iv zofran by nursing, and patient requested a skye marcin to help soothe her stomach. Patient is unsure of what precipitates her episodes of vomiting but explains she ate a house salad during her last admission and after experienced vomiting as well. She states she did have a house salad yesterday with her afternoon lunch tray before going to dialysis. Will continue to monitor patients status of nausea and vomiting. * Yenni Joy RN - 02/10/2025 6:13 PM EDT 02/10/25 1405 Vitals Temp 97.8 ??F (36.6 ??C) Temp src Oral Pulse 80 Resp 18 BP 131/69 MAP (mmHg) 86 SpO2 98 % O2 Device Not on O2 Pain Assessment Pain Assessment Scale 0-10 Pain Score Zero Hemodialysis Access Left Subclavian Placement Date/Time: 02/08/252119 Orientation: Left Access Location: Subclavian Securement Method:Sutured Comments: present upon admission Site Assessment Clean;Dry;Intact Status Accessed Catheter Exit Site Clear Type of Dressing CHG gel Dressing Status Clean;Dry;Intact Blue Port Blood return noted;Flushed Red Port Blood return noted;Flushed Pre-Hemodialysis Assessment Patient Status Arrived Transfer Mode Bed Pre-Treatment Weight 115 kg (253 lb 8.5 oz) HBs AG Date Last Drawn 01/16/25 HBs AG result Negative HBs AB Date Last Drawn 09/19/24 HBs Ab result Positive (66) Machine [id number] Machine Conductivity 13.7 QC pH 7.2 Machine Temperature 37.1 Test Completed Yes Reverse Osmosis [id number] Alarm Test Passed Treatment Type UF and Hemodialysis Dialyzer F-180 Dialysate Na (mEq/L) Other (138) Dialysate K (mEq/L) 2 mEq/L Dialysate Ca (mEq/L) 2.5 mEq/L Dialysate HCO3 (mEq/L) 35 mEq/L During Hemodialysis Assessment Hemodialysis Status Initiated Ultrafiltration Status Initiated Prime Volume 250 Blood Flow Rate (mL/min) 400 mL/min Ultrafiltration Rate (mL/hr) 1000 mL/hr Venous Pressure (mmHg) 75 Transmembrane Pressure (mmHg) 18 mmHg Arterial Pressure (mmHg) -153 UF Goal 3500 ml Dialysate Flow Rate (mL/min) 750 ml/min Remaining Time (min) 210 mins UF State On Arteriovenous Lines Secure Yes Patient arrived to unit A & O x4, VSS, ready for treatment. Report given Mak Vizcarra RN. * Yenni Joy RN - 02/10/2025 5:53 PM EDT 02/10/25 1740 Vitals Temp 97.8 ??F (36.6 ??C) Temp src Oral Pulse 80 Resp 16 BP (!) 146/77 MAP (mmHg) 99 SpO2 98 % O2 Device Not on O2 Pain Assessment Pain Assessment Scale 0-10 Pain Score Zero Hemodialysis Access Left Subclavian Placement Date/Time: 02/08/252119 Orientation: Left Access Location: Subclavian Securement Method:Sutured Comments: present upon admission Site Assessment Clean;Dry;Intact Status Accessed Catheter Exit Site Clear Type of Dressing CHG gel Dressing Status Clean;Dry;Intact Blue Port Flushed;Capped;Clamped Red Port Flushed;Clamped;Capped Dressing Intervention New dressing;Dressing changed;Dressing labeled;Removed;Site care (Comment) Dressing Change Due 02/17/25 During Hemodialysis Assessment Hemodialysis Status Completed Ultrafiltration Status Completed Prime Volume 250 Blood Flow Rate (mL/min) 400 mL/min Ultrafiltration Rate (mL/hr) 1000 mL/hr Venous Pressure (mmHg) 148 Transmembrane Pressure (mmHg) 16 mmHg Arterial Pressure (mmHg) -144 UF Removed (mL) 2900 ml Dialysate Flow Rate (mL/min) 750 ml/min UF State On Arteriovenous Lines Secure Yes Post-Hemodialysis Assessment Total Blood Volume Processed 77.8 mL Duration of Treatment (minutes) 210 min Hemodialysis UF Net Intake (mL) 500 mL Hemodialysis UF Net Output (mL) 2400 mL Hemodialysis UF Gross (mL) 2900 mL Post-Treatment Weight 113 kg (249 lb 1.9 oz) Treatment Weight Change (kg) 113 kg Patient had issues with pain in side in middle of treatment. Tylenol 500mg given. Uf of 2.4L achieved. Report given to Mak Vizcarra RN. * Nataliya Cain MD - 02/10/2025 1:46 PM EDT Images from the original note were not included. Subjective: Patient was seen and examined with all infection control measures. Tolerated HD well today Hospital Course: Carla Burkett is a 54 y.o. female well-known to my practice with history of end-stage renaldisease on chronic hemodialysis on a Thursday, and Thursday schedule who had recently AV fistula creation. It was noted that the surgical site was slightly inflamed last week and the patient was started on p.o. doxycycline. A scab was formed apparently however the patient had picked on the scab leading to what appears to be infected ulcer at the vascular access site. Patient was referred tothe local ER at [facility] for further evaluation by vascular surgery and possible need for IV antibiotic initiation. Nephrology consult was requested by the primary team. Allergies: Sulfa (Sulfonamide Antibiotics) and Tylox [Oxycodone-Acetaminophen] Home Medications: Prior to Admission medications Medication Sig Start Date End Date Taking? Authorizing Provider acetaminophen (TYLENOL) 500 MG tablet Take 1 tablet (500 mg total) by mouth every 6 (six) hours as needed for pain. Yes Historical Provider, amLODIPine (NORVASC) 10 MG tablet Take 1 tablet (10 mg total) by mouth daily. 12/12/22 Yes Historical Provider, aspirin 81 MG EC tablet Take 1 tablet (81 mg total) by mouth daily. 12/01/22 Yes Historical Provider, atorvastatin (LIPITOR) 40 MG tablet Take 1 tablet (40 mg total) by mouth nightly. 12/03/22 Yes Historical Provider, baclofen (LIORESAL) 5 mg tab Take 1 tablet (5 mg total) by mouth every night as needed for muscle spasms. Yes Historical Provider, calcitonin, salmon, (MIACALCIN) 200 unit/actuation nasal spray [place] 1 spray into one nostril daily. Yes Historical Provider, calcium carbonate 600mg (Caltrate) 600 mg calcium (1,500 mg) tab Take 1 tablet (1,500 mg total) by mouth daily. 04/10/24 Yes Historical Provider, carvediloL (COREG) 12.5 MG tablet Take 1 tablet (12.5 mg total) by mouth 2 (two) times daily. 12/06/22 Yes Historical Provider, diphenhydrAMINE (BENADRYL) 25 mg tablet Take 1 tablet (25 mg total) by mouth 3 (three) times daily as needed for itching. Yes Historical Provider, famotidine (PEPCID) 20 MG tablet Take 1 tablet (20 mg total) by mouth 2 (two) times daily. Yes Historical Provider, fexofenadine (DANIELLE) 180 MG tablet Take 1 tablet (180 mg total) by mouth daily. Yes Historical Provider, gabapentin (NEURONTIN) 300 MG capsule Take 1 capsule (300 mg total) by mouth nightly. 02/04/24 Yes Historical Provider, insulin aspart U-100 (NovoLOG) 100 unit/mL (3 mL) inpn Inject under the skin 3 (three) times daily before meals Sliding scale. Yes Historical Provider, isosorbide mononitrate (IMDUR) 30 MG 24 hr tablet Take 1 tablet (30 mg total) by mouth daily. Yes Historical Provider, metoclopramide (REGLAN) 10 MG tablet Take 1 tablet (10 mg total) by mouth 3 (three) times daily before meals. Yes Historical Provider, ondansetron (ZOFRAN) 4 MG tablet Take 1 tablet (4 mg total) by mouth every 8 (eight) hours as needed for nausea. Yes Historical Provider, prasugreL (EFFIENT) 10 mg tab tablet Take 1 tablet (10 mg total) by mouth daily. 02/10/24 Yes Historical Provider, pseudoephedrine (Sudogest) 60 MG tablet Take 1 tablet (60 mg total) by mouth every 6 (six) hours asneeded for congestion. Yes Historical Provider, sevelamer (RENAGEL) 800 MG tablet Take 1 tablet (800 mg total) by mouth 3 (three) times daily with meals. Yes Historical Provider, venlafaxine (Effexor XR) 37.5 MG 24 hr capsule Take 1 capsule (37.5 mg total) by mouth daily. Yes Historical Provider, epoetin gia (Procrit) 20,000 unit/2 mL soln injection Inject 2 mLs (20,000 Units total) under the skin once a week. Historical Provider, polyethylene glycol (MIRALAX) 17 gram/dose powder Take 17 g by mouth daily. Historical Provider, Current Medications: Current Facility-Administered Medications: acetaminophen (TYLENOL) tablet 500 mg, 500 mg, oral, Q6H PRN, Briana Araiza MD, 500 mg at 02/10/25 0413 amLODIPine (NORVASC) tablet 10 mg, 10 mg, oral, Daily, Olegario Varghese PA-C, 10 mg at 02/11/25 0949 aspirin EC tablet 81 mg, 81 mg, oral, Daily, Olegario Varghese PA-C, 81 mg at 02/11/25 0948 atorvastatin (LIPITOR) tablet 40 mg, 40 mg, oral, Every Night, Olegario Varghese PA-C, 40 mg at 02/10/25 2151 baclofen (LIORESAL) tablet 5 mg, 5 mg, oral, Every Night PRN, Briana Araiza MD, 5 mg at 02/10/255 bisacodyL (DULCOLAX) EC tablet 10 mg, 10 mg, oral, Daily PRN OR bisacodyL (DULCOLAX) suppository 10 mg, 10 mg, rectal, Daily PRN, Olegario Varghese PA-C carvediloL (COREG) tablet 12.5 mg, 12.5 mg, oral, BID, Olegario Varghese PA-C, 12.5 mg at 02/11/25 0948 ceFAZolin (ANCEF) 1 g in sodium chloride 0.9 % (NS) 50 mL BLANCA IVPB, 1 g, intravenous, Q24H, Briana Araiza MD, IVPB Stopped at 02/10/25 1855 dextrose 50% (D50W) injection 25 g, 25 g, intravenous, Q15 Min PRN, Olegario Varghese PA-C gabapentin (NEURONTIN) capsule 300 mg, 300 mg, oral, Every Night, Olegario Varghese PA-C, 300 mg at 02/10/25 2151 glucagon injection 1 mg, 1 mg, intraMUSCULAR, Q15 Min PRN, Olegario Varghese PA-C glucose chew tab 16 g, 16 g, oral, Q15 Min PRN, Olegario Varghese PA-C heparin injection 5,000 Units, 5,000 Units, subcutaneous, Q8H, Arabella Luu, [employer], 5,000 Units at 02/11/25 1214 hydrALAZINE (APRESOLINE) injection 10 mg, 10 mg, intravenous, Q6H PRN, Olegario Varghese PA-C insulin lispro (HUMALOG, ADMELOG) injection 0-6 Units, 0-6 Units, subcutaneous, 4x Daily AC, SHERLY Young, 3 Units at 02/11/25 1214 isosorbide mononitrate (IMDUR) 24 hr tablet 30 mg, 30 mg, oral, Daily, Olegario Varghese PA-C, 30 mg at 02/11/25 0948 lidocaine (LIDODERM) patch 4%, 1 patch, transdermal, Q24H, DAMIEN Chatterjee, 1 patch at 02/11/25 0544 melatonin tablet 3 mg, 3 mg, oral, Every Night PRN, Olegario Varghese PA-C ondansetron (ZOFRAN-ODT) disintegrating tablet 4 mg, 4 mg, oral, Q8H PRN OR ondansetron (ZOFRAN) injection 4 mg, 4 mg, intravenous, Q8H PRN, Olegario Varghese PA-C, 4 mg at 02/11/25 0728 polyethylene glycol (GLYCOLAX) packet 17 g, 17 g, oral, Daily PRN, Olegario Varghese PA-C prasugreL HCl (EFFIENT) tablet 10 mg, 10 mg, oral, Daily, Olegario Varghese PA-C, 10 mg at 02/11/25 1033 promethazine (PHENERGAN) 12.5 mg in sodium chloride 0.9 % (NS) 50 mL IVPB (Immediate Use Only), 12.5 mg, intravenous, Q6H PRN, Pablo Yuan PA-C, IVPB Stopped at 02/11/25 0113 promethazine (PHENERGAN) tablet 25 mg, 25 mg, oral, Q6H PRN, Pablo Yuan PA-C sevelamer (RENAGEL) tablet 800 mg, 800 mg, oral, TID with meals, Olegario Varghese PA-C, 800 mg at 02/11/25 1213 traMADoL (ULTRAM) tablet 50 mg, 50 mg, oral, Q6H PRN, Briana Araiza MD, 50 mg at 02/10/252036 vancomycin (VANCOCIN) 1,000 mg in sodium chloride 0.9% (NS) non-DEHP 250 mL IVPB, 1,000 mg, intravenous, Once per day on Thursday, Olegario Varghese PA-C, IVPB Stopped at 02/10/252000 venlafaxine XR (EFFEXOR-XR) 24 hr capsule 37.5 mg, 37.5 mg, oral, Daily, Olegario Varghese PA-C, 37.5mg at 02/11/25 0948 Review of Systems Constitutional: Positive for fatigue. HENT: Negative. Eyes: Negative. Respiratory: Negative. Cardiovascular: Positive for leg swelling. Gastrointestinal: Negative. Endocrine: Negative. Genitourinary: Negative. Musculoskeletal: Negative. Skin: Positive for wound (right AVF site with infected ulcer). Allergic/Immunologic: Negative. Neurological: Negative. Hematological: Negative. Psychiatric/Behavioral: Negative. All other systems reviewed and are negative. Vitals Blood pressure 132/73, pulse 81, temperature 98.2 ??F (36.8 ??C), resp. rate 18, height 1.676 m (5'6 ), weight 121.6 kg (268 lb), SpO2 95%. Physical Exam Vitals and nursing note reviewed. Constitutional: Appearance: Normal appearance. She is obese. HENT: Head: Normocephalic and atraumatic. Nose: Nose [...] Skin: General: Skin is warm and dry. Findings: Lesion (right AVF site with infected ulcer) present. Neurological: General: No focal deficit present. Mental Status: She is alert and oriented to person, place, and time. Mental status is at baseline. Psychiatric: Mood and Affect: Mood normal. Behavior: Behavior normal. Thought Content: Thought content normal. Judgment: Judgment normal. Labs: Recent Results (from the past 72 hours) CBC with Auto Diff Collection Time: 02/08/25 4:00 PM Result Value Ref Range WBC 8.9 4.0 - 10.0 K/??L RBC 3.28 (L) 3.93 - 5.22 M/??L Hemoglobin 10.7 (L) 11.2 - 15.7 GM/DL Hematocrit 32.0 (L) 34.1 - 44.9 % MCV 98 (H) 79 - 95 fL MCH 32.6 (H) 25.6 - 32.2 pg MCHC 33.4 32.2 - 35.5 GM/DL RDW 13.2 11.7 - 14.4 % Platelets 320 140 - 375 K/CU MM MPV 9.6 9.4 - 12.3 fL % Neutros 65 34 - 71 % % Lymphs 25 19 - 52 % % Monos 6 5 - 13 % % Eos 2 1 - 6 % % Baso 1 0 - 1 % NRBC Absolute <0.01 0 - 0.012 K/ul # Neutros 5.86 1.56 - 6.13 K/??L # Lymphs 2.24 1.18 - 3.74 K/??L # Monos 0.57 0.24 - 0.86 K/??L # Eos 0.14 0.04 - 0.36 K/??L # Baso 0.05 0.01 - 0.08 K/??L Immature Granulocytes-Relative 0.90 (H) 0.01 - 0.43 % # IG 0.08 (H) 0.00 - 0.03 K/uL Basic Metabolic Panel Collection Time: 02/08/25 4:00 PM Result Value Ref Range Sodium 142 136 - 145 meq/L Potassium 3.8 3.4 - 5.1 meq/L CO2 30 (H) 22 - 29 meq/L Chloride 99 98 - 112 meq/L Glucose 155 (H) 74 - 100 mg/dL BUN 21.5 (H) 9.8 - 20.1 mg/dL Creatinine 3.62 (H) 0.57 - 1.11 mg/dL BUN/Creatinine 6 (L) 8 - 20 Calcium 9.0 8.4 - 10.2 mg/dL Anion Gap 17 (H) 4 - 12 eGFR (mL/min/1.73m2) 14 (L) >=60 mL/min/1.73m2 Osmolality Calc 289.4 mOsm/kg Blood Culture Collection Time: 02/08/25 4:00 PM Specimen: Blood Result Value Ref Range Result No growth in 48 hours Lactic Acid with reflex (SJ) Collection Time: 02/08/25 4:00 PM Result Value Ref Range Lactic Acid Level (mmol/L) 1.7 0.5 - 2.2 mmol/L Sedimentation rate Collection Time: 02/08/25 4:00 PM Result Value Ref Range Sed Rate 35 (H) 0 - 30 mm/HR C-Reactive Protein Collection Time: 02/08/25 4:00 PM Result Value Ref Range CRP 18.6 (H) 0.0 - 5.0 mg/L Blood Culture Collection Time: 02/08/25 4:17 PM Specimen: Blood Result Value Ref Range Result No growth in 48 hours Blue Top Extra Tubes Collection Time: 02/08/25 4:17 PM Result Value Ref Range HOLD SPECIMEN (SJ - BKR) Hold for add-ons. PST Top Extra Tubes Collection Time: 02/08/25 4:17 PM Result Value Ref Range HOLD SPECIMEN (SJ - BKR) Hold for add-ons. Glucose, Nova Meter Collection Time: 02/08/25 10:58 PM Result Value Ref Range POC-GLUCOSE 131 (H) 70 - 110 mg/dL Mechanical Test Engineer [id number] Wound Culture + Gram Stain Collection Time: 02/08/25 11:19 PM Specimen: Arm, Right Upper; Wound Result Value Ref Range Result (A) Moderate Growth Methicillin resistant Staphylococcus aureus Result Moderate Growth Staphylococcus epidermidis (A) Gram Stain Result No cells seen Gram Stain Result Few gram positive cocci in pairs and clusters Gram Stain Result Few gram positive cocci Susceptibility Methicillin resistant Staphylococcus aureus - (no method available) Amoxicillin + Clavulanate Resistant Ampicillin Resistant Ampicillin + Sulbactam Resistant Azithromycin Resistant Cefazolin Resistant Cefepime Resistant Cefotaxime Resistant Cefoxitin Screen Positive Ceftaroline Susceptible Ceftriaxone Resistant Ciprofloxacin Resistant Clindamycin Intermediate Daptomycin Susceptible Erythromycin Resistant Gentamicin Resistant Imipenem Resistant Inducible Clindamycin Negative Levofloxacin Resistant Linezolid Susceptible Meropenem Resistant Oxacillin Resistant Penicillin Resistant Rifampin Susceptible Tetracycline Susceptible Trimethoprim + Sulfamethoxazole Susceptible Vancomycin Susceptible CBC with automated diff Collection Time: 02/09/25 4:41 AM Result Value Ref Range WBC 8.4 4.0 - 10.0 K/??L RBC 3.46 (L) 3.93 - 5.22 M/??L Hemoglobin 11.0 (L) 11.2 - 15.7 GM/DL Hematocrit 34.5 34.1 - 44.9 % MCV 100 (H) 79 - 95 fL MCH 31.8 25.6 - 32.2 pg MCHC 31.9 (L) 32.2 - 35.5 GM/DL RDW 13.4 11.7 - 14.4 % Platelets 313 140 - 375 K/CU MM MPV 9.7 9.4 - 12.3 fL % Neutros 59 34 - 71 % % Lymphs 30 19 - 52 % % Monos 7 5 - 13 % % Eos 2 1 - 6 % % Baso 1 0 - 1 % NRBC Absolute <0.01 0 - 0.012 K/ul # Neutros 4.97 1.56 - 6.13 K/??L # Lymphs 2.54 1.18 - 3.74 K/??L # Monos 0.62 0.24 - 0.86 K/??L # Eos 0.16 0.04 - 0.36 K/??L # Baso 0.05 0.01 - 0.08 K/??L Immature Granulocytes-Relative 1.10 (H) 0.01 - 0.43 % # IG 0.09 (H) 0.00 - 0.03 K/uL Comprehensive metabolic panel Collection Time: 02/09/25 4:41 AM Result Value Ref Range Sodium 142 136 - 145 meq/L Potassium 4.0 3.4 - 5.1 meq/L Chloride 100 98 - 112 meq/L CO2 31 (H) 22 - 29 meq/L Calcium 9.0 8.4 - 10.2 mg/dL Glucose 197 (H) 74 - 100 mg/dL BUN 29.8 (H) 9.8 - 20.1 mg/dL Creatinine 4.72 (H) 0.57 - 1.11 mg/dL BUN/Creatinine 6 (L) 8 - 20 eGFR (mL/min/1.73m2) 10 (L) >=60 mL/min/1.73m2 Albumin 3.0 (L) 3.5 - 5.0 g/dL Alkaline Phosphatase 175 (H) 40 - 150 U/L ALT 35 (H) <=34 U/L AST 28 11 - 34 U/L Total Bilirubin 0.4 0.2 - 1.2 mg/dL Protein, Total 6.6 6.4 - 8.3 g/dL Globulin 3.6 2.5 - 4.1 g/dL Anion Gap 15 (H) 4 - 12 A/G Ratio 0.8 0.7 - 1.9 Osmolality Calc 294.7 mOsm/kg Glucose, Nova Meter Collection Time: 02/09/25 7:32 AM Result Value Ref Range POC-GLUCOSE 181 (H) 70 - 110 mg/dL Mechanical Test Engineer [id number] Glucose, Nova Meter Collection Time: 02/09/25 11:16 AM Result Value Ref Range POC-GLUCOSE 154 (H) 70 - 110 mg/dL Mechanical Test Engineer [id number] Glucose, Nova Meter Collection Time: 02/09/25 4:16 PM Result Value Ref Range POC-GLUCOSE 232 (H) 70 - 110 mg/dL Mechanical Test Engineer [id number] Glucose, Nova Meter Collection Time: 02/09/25 8:08 PM Result Value Ref Range POC-GLUCOSE 172 (H) 70 - 110 mg/dL Mechanical Test Engineer [id number] Glucose, Nova Meter Collection Time: 02/10/25 7:52 AM Result Value Ref Range POC-GLUCOSE 235 (H) 70 - 110 mg/dL Mechanical Test Engineer [id number] Glucose, Nova Meter Collection Time: 02/10/25 12:23 PM Result Value Ref Range POC-GLUCOSE 274 (H) 70 - 110 mg/dL Mechanical Test Engineer [id number] Glucose, Nova Meter Collection Time: 02/10/25 6:20 PM Result Value Ref Range POC-GLUCOSE 149 (H) 70 - 110 mg/dL Mechanical Test Engineer [id number] Glucose, Nova Meter Collection Time: 02/10/25 7:54 PM Result Value Ref Range POC-GLUCOSE 176 (H) 70 - 110 mg/dL Mechanical Test Engineer [id number] Basic Metabolic Panel Collection Time: 02/11/25 5:31 AM Result Value Ref Range Sodium 135 (L) 136 - 145 meq/L Potassium 4.0 3.4 - 5.1 meq/L CO2 25 22 - 29 meq/L Chloride 98 98 - 112 meq/L Glucose 216 (H) 74 - 100 mg/dL BUN 19.4 9.8 - 20.1 mg/dL Creatinine 4.17 (H) 0.57 - 1.11 mg/dL BUN/Creatinine 5 (L) 8 - 20 Calcium 7.9 (L) 8.4 - 10.2 mg/dL Anion Gap 16 (H) 4 - 12 eGFR (mL/min/1.73m2) 12 (L) >=60 mL/min/1.73m2 Osmolality Calc 279.0 mOsm/kg CBC with automated diff Collection Time: 02/11/25 5:31 AM Result Value Ref Range WBC 8.7 4.0 - 10.0 K/??L RBC 3.68 (L) 3.93 - 5.22 M/??L Hemoglobin 12.0 11.2 - 15.7 GM/DL Hematocrit 35.9 34.1 - 44.9 % MCV 98 (H) 79 - 95 fL MCH 32.6 (H) 25.6 - 32.2 pg MCHC 33.4 32.2 - 35.5 GM/DL RDW 12.9 11.7 - 14.4 % Platelets 291 140 - 375 K/CU MM MPV 9.3 (L) 9.4 - 12.3 fL % Neutros 66 34 - 71 % % Lymphs 24 19 - 52 % % Monos 7 5 - 13 % % Eos 2 1 - 6 % % Baso 1 0 - 1 % NRBC Absolute <0.01 0 - 0.012 K/ul # Neutros 5.71 1.56 - 6.13 K/??L # Lymphs 2.12 1.18 - 3.74 K/??L # Monos 0.58 0.24 - 0.86 K/??L # Eos 0.17 0.04 - 0.36 K/??L # Baso 0.04 0.01 - 0.08 K/??L Immature Granulocytes-Relative 0.70 (H) 0.01 - 0.43 % # IG 0.06 (H) 0.00 - 0.03 K/uL C-Reactive Protein Collection Time: 02/11/25 5:31 AM Result Value Ref Range CRP 11.0 (H) 0.0 - 5.0 mg/L Glucose, Nova Meter Collection Time: 02/11/25 7:36 AM Result Value Ref Range POC-GLUCOSE 234 (H) 70 - 110 mg/dL Mechanical Test Engineer [id number] Glucose, Nova Meter Collection Time: 02/11/25 11:42 AM Result Value Ref Range POC-GLUCOSE 240 (H) 70 - 110 mg/dL Mechanical Test Engineer [id number] Imaging: Ultrasound hemodialysis access Result Date: 02/09/2025 Vascular Upper Extremities Arterial Duplex Procedure Demographics Patient Name YANG Norris Age 54 Patient Number [id number] Gender Female Race Unknown Ethnicity Corporate ID [id number] Height 66 Date of 1970 Weight 268 Accession Number [id number] BSA 2.27 m^2 Room Number 400 BMI 43.26 kg/m^2 Referring Physician ERNST AVILA Physician Assistant To The Dean OLIVIA Blount Procedure Type of Study: Extremities Arteries: Upper Extremities Arterial Duplex, Hemodialysis Graft Access Duplex, US HEMODIALYSIS ACCESS. Impressions Summary ################################## Indication: N18.6 End stage renal disease. RIGHT:Patent Brachiocephalic AVF. VOLUME FLOW: Mid: 1044 ml/min. ################################## Allergies - Sulfa. Patient Status:Inpatient . Study Location:Portable. Technical Quality:Adequate visualization. Risk Factors History of Disease + + + + !Diagnosis !Date !Comments ! + + + + !Diabetes ! ! ! + + + + !CAD ! ! ! + + + + !Hypertension ! ! ! + + + + !Hyperlipidemia ! ! ! + + + + !Renal failure ! ! ! + + + + V elocities are measured in cm/s ; Diameters are measured in mm Signature CT upper extremity without contrast right Result Date: 02/08/2025 CT RIGHT UPPER EXTREMITY, ATTENTION ELBOW REGION HISTORY: Pain, TECHNIQUE: Thin section axial CT with sagittal and coronal reconstructions. FINDINGS: No fracture or bone destruction is present. Thereis stranding which overlies the olecranon and posteromedial distal humerus which is suspicious for cellulitis. There is no gas in the soft tissues. There is stranding and soft tissue irregularity in the antecubital region which surrounds the basilic vein- antecubital vein junction. This is also in the region of the brachial artery. Given the presence of multiple surgical clips, it is not possible to differentiate chronic postoperative change from an acute inflammatory process particularly without the benefit of prior exams. No gas is seen in the soft tissues. Aside from the surgical clips, no foreign body is seen. 1. Abnormal soft tissue prominence with surrounding stranding in the antecubital region encasing the junction of the basilic and antecubital veins. Without the benefit of prior exams, it is not possible to distinguish whether this represents an acute inflammatory process or chronic postoperative change with scarring. 2. Edema and stranding along the posterior distal humerus and olecranon suggestive of superficial cellulitis. 3. No large volume abscess. No gas in the soft tissues. This study wasperformed using dose reduction techniques to achieve radiation exposure as low as reasonably achievable (ALARA). Images reviewed, interpreted, and dictated by Nirav Navarro MD Assessment: #1 end-stage renal disease on chronic hemodialysis MWF #2 h/o cardiac arrest. #3 Anemia of chronic kidney disease #4 essential hypertension #5 type 2 diabetes mellitus #6 underlying multi-vessel coronary artery disease #7 peripheral vascular disease status post left AKA #8 Infected right AVF site ulcer Plan: MWF schedule. Erythropoietin stimulating agent and IV Iron targeting Hb 10-11 g/dl. Continue her diabetic meds. Monitor renal function electrolytes and acid- base base status status closely. Avoidanceof nephrotoxic agents and renal dosing of meds. Suggest ID and Vascular consultation. Further management of other medical problems as per primary service and orthopedic surgery. Thank you for this interesting consultation and please do not hesitate to contact me with any question regarding this case. * Briana Araiza MD - 02/10/2025 1:06 PM EDT HOSPITALIST PROGRESS NOTE Patient: Carla Burkett Date: 02/10/2025 Subjective Date of Service: 02/10/2025 Feeling okay overall. Patient asking if she can go back to her facility today. She is afebrile, hemodynamically stable Review of Systems Constitutional: Negative for chills and fever. Respiratory: Negative for cough and shortness of breath. Cardiovascular: Negative for chest pain and palpitations. Gastrointestinal: Negative for abdominal pain, diarrhea and vomiting. Musculoskeletal: Negative for myalgias. Neurological: Negative for weakness and headaches. Objective Vitals: Temp: [97.3 ??F (36.3 ??C)-98.7 ??F (37.1 ??C)] 97.8 ??F (36.6 ??C) Pulse: [76-176] 84 Resp: [16-22] 16 BP: (100-138)/(46-71) 130/70 Intake/Output: Intake/Output Summary (Last 24 hours) at 02/10/2025 1306 Last data filed at 02/09/20251999 Gross per 24 hour Intake 720 ml Output -- Net 720 ml Physical exam: Physical Exam Constitutional: Appearance: Normal appearance. She is obese. HENT: Head: Normocephalic. Eyes: Conjunctiva/sclera: Conjunctivae normal. Cardiovascular: Rate and Rhythm: Normal rate and regular rhythm. Heart sounds: No murmur heard. Pulmonary: Effort: No respiratory distress. Breath sounds: Normal breath sounds. No wheezing. Abdominal: General: Bowel sounds are normal. Palpations: Abdomen is soft. Tenderness: There is no abdominal tenderness. Musculoskeletal: Comments: S/p TMA Skin: Comments: Incision RUE slightly red with cream-colored purulence Neurological: General: No focal deficit present. Mental Status: She is alert and oriented to person, place, and time. Psychiatric: Mood and Affect: Mood normal. Behavior: Behavior normal. Pertinent Recent Radiology: CT right upper extremity 02/08: Abnormal soft tissue prominence with surrounding stranding in the antecubital region, superficial cellulitis, no abscess or gas Upper extremity ultrasound 02/09: Patent brachiocephalic AVF Assessment and Plan #Right upper extremity cellulitis AV fistula incision site Vascular surgery following: Recommend antibiotics, signed off 02/10 Does not meet sepsis criteria WBC normal at 8.4 CRP elevated at 18.6 Order labs for a.m. Pharmacy to dose vancomycin Empiric cefazolin Wound culture + Staph aureus ID consulted, discussed with Dr. Hopper today #ESRD on HD Continue MWF schedule Nephrology following Renal diet Code Status: Current Code Status Full code Discharge Planning: Barriers to discharge/reason for continued hospitalization: Continue IV antibiotics. Awaiting finalculture results to decide antibiotic plan. Expected (tentative) discharge in: 1-2 days Expected discharge disposition: [facility], [facility] Additional discharge needs: PCP follow-up, nephrology follow-up, transportation Signed: Briana Araiza MD 02/10/2025, 12:15 PM * Delores Hartley RN - 02/10/2025 12:14 PM EDTSummary: Discharge Planning This Pt was discussed at MDR Rounds today. The pt is pending ID final recs for and HD for discharge. This CM Spoke with Esha, [facility] [phone] who said the pt has a bed hold for 30 days. Pt is welcomed back once medically stable for discharge. This CM called Ehsa back to update her on DC plan. Pt is welcomed back at anytime. N2N # [phone]; . Barrier: ID recs waiting on final culture, Likely tomorrow. CM reached out to RN regarding HD today (M,W,F). Pt is followed by Nephro. This CM attempted to see pt at bedside, however, pt was at HD. Pt will need to have transport arranged if discharging this weekend. Pt's Prothesis at bedside and WC is at bedside it is foldable. CM to follow. * Arabella Luu APRN - 02/10/2025 11:48 AM EDT VASCULAR SURGERY PROGRESS NOTE Subjective Up to chair eating -- no new concerns -- hoping to go home Objective Last Recorded Vitals Blood pressure 130/70, pulse 84, temperature 97.8 ??F (36.6 ??C), temperature source Oral, resp. rate 16, height 1.676 m (5' 6 ), weight 121.6 kg (268 lb), SpO2 100%. Physical Exam Gen: awake, white female; up to chair HEENT: pink conjunctiva, MMM Lungs: normal respiratory effort on RA; left chest PAC Heart: reg s1, s2 Abd: soft, obese : no roberts Ext: motor intact; right TMA; left BKA; RUE brachiocephalic fistula site dressing CDI Skin: Exposed skin warm Neuro: follows simple commands Psych: appropriate mood Labs: Results for orders placed or performed during the hospital encounter of 02/08/25 (from the past 24 hours) Glucose, Nova Meter Status: Abnormal Collection Time: 02/09/25 4:16 PM Result Value Ref Range POC-GLUCOSE 232 (H) 70 - 110 mg/dL Mechanical Test Engineer [id number] Glucose, Nova Meter Status: Abnormal Collection Time: 02/09/25 8:08 PM Result Value Ref Range POC-GLUCOSE 172 (H) 70 - 110 mg/dL Mechanical Test Engineer [id number] Glucose, Nova Meter Status: Abnormal Collection Time: 02/10/25 7:52 AM Result Value Ref Range POC-GLUCOSE 235 (H) 70 - 110 mg/dL Mechanical Test Engineer [id number] Glucose, Nova Meter Status: Abnormal Collection Time: 02/10/25 12:23 PM Result Value Ref Range POC-GLUCOSE 274 (H) 70 - 110 mg/dL Mechanical Test Engineer [id number] Ultrasound hemodialysis access Vascular Upper Extremities Arterial Duplex Procedure Demographics Patient Name YANG Norris Age 54 Patient Number [id number] Gender Female Race Unknown Ethnicity Corporate ID [id number] Height 66 Date of 1970 Weight 268 Accession Number [id number] BSA 2.27 m^2 Room Number 400 BMI 43.26 kg/m^2 Referring Physician ERNST DÍAZ Interpreting ANNEMARIE AVILA Physician Assistant To The Dean OLIVIA Blount Procedure Type of Study: Extremities Arteries: Upper Extremities Arterial Duplex, Hemodialysis Graft Access Duplex, US HEMODIALYSIS ACCESS. Impressions Summary ################################## Indication: N18.6 End stage renal disease. RIGHT: Patent Brachiocephalic AVF. VOLUME FLOW: Mid: 1044 ml/min. ################################## Allergies - Sulfa. Patient Status:Inpatient . Study Location:Portable. Technical Quality:Adequate visualization. Risk Factors History of Disease + + + + !Diagnosis !Date !Comments ! + + + + !Diabetes ! ! ! + + + + !CAD ! ! ! + + + + !Hypertension ! ! ! + + + + !Hyperlipidemia ! ! ! + + + + !Renal failure ! ! ! + + + + Velocities are measured in cm/s ; Diameters are measured in mm Signature Assessment - Suspected right upper extremity fistula site infection - s/p RIGHT brachiocephalic arteriovenous fistula creation on 01/10/[address] Sloan - Right upper extremity cellulitis - Elevated CRP - ESRD on HD - Hypertension - Hyperlipidemia - Coronary artery disease - Diabetes mellitus type 2 with neuropathy - Congestive heart failure - Anxiety - Depression - Morbid obesity Plan - nephrology following for HD management - ID following for antx guidance - glycemic control - continue ASA - heparin SQ Q8H DVT ppx - wound care - keep F/U outpatient with Dr. Sloan next Thursday02/15/25 - vascular will sign off -- please call with any further vascular concerns Discharge Planning: OK to DC from vascular standpoint * Jenny Hui RN - 02/10/2025 9:21 AM EDTSummarek: Wound Care Note Images from the original note were not included. Wound 01/10/25 Incision Arm Right (Active) Date First Assessed/Time First Assessed: 01/10/25 1542 Primary Wound Type: Incision Location: Arm Wound Location Orientation: Right Assessments 02/10/2025 7:39 AM Site Assessment Necrotic;Hernandez Jie-Wound Assessment Erythematous;Red Wound Length (cm) 6 cm Wound Width (cm) 1.5 cm Wound Surface Area (cm^2) 9 cm^2 Wound Depth (cm) 0.5 cm Wound Volume (cm^3) 4.5 cm^3 Margins Attached edges;Epibole (Rolled edges) Drainage Description Purulent Drainage Amount Small Odor None Primary Dressing Medihoney Dressing Secondary Silicone bordered foam Dressing Changed Changed Non-staged Wound Description Full thickness No associated orders. Right arm AC WCN consulted to assess right arm. WCN at bedside patient sitting in chair. WCN explained to patient he reason for visit and patient agreed to assessment. WCN removed dressing and performed assessment and made recommendations for full thickness skin loss to right arm antecubital. WCN explained the POC to patient and patient is in agreement. If any changes to skin integrity please consult inpatient wound and ostomy. Ongoing POC. Call light in reach. * Leelee Starr [facility] - 02/09/2025 2:11 PM EDT Clinical Rx Vancomycin Progress Note HPI: 54 y.o.female [facility] clinic due to bleeding and possible infection of AV fistula. Pt had fistula creation on 01/10/25 at this facility. Pt received dialysis today through tunneled CV catheter in neck. PMH of DM, ESRD on HD, CAD, HTN and HLD. Concern for surgical site infection. Consult: Vancomycin Consulting: SHERLY Anderson Indication: Skin-Soft Tissue Infection (SSTI) Goal: 12-18 mg/L Anti-infectives (From admission, onward) Start Dose/Rate Route Frequency Ordered Stop 02/08/252040 vancomycin (VANCOCIN) IV actively being dosed by Pharmacy 1 each intravenous See admin instructions 02/08/252040 Cefazolin 1gm Iv q8h Vancomycin 1gm on MWF after HD Vancomycin 1.5gm IV X1 @ 1920 Allergies as of 02/08/2025 - Review Complete 02/08/2025 Allergen Reaction Noted Sulfa (sulfonamide antibiotics) 10/10/2022 Tylox [oxycodone-acetaminophen] Nausea Only 10/10/2022 BP Min: 106/59 Min taken time: 02/09/25 001 Max: 163/78 Max taken time: 02/08/25 1710 Temp Min: 98 ??F (36.7 ??C) Min taken time: 02/08/25 1558 Max: 99.9 ??F (37.7 ??C) Max taken time: 02/08/25 2123 Pulse Min: 82 Min taken time: 02/09/2514 Max: 92 Max taken time: 02/09/25 0845 Resp Min: 13 Min taken time: 02/08/25 1710 Max: 20 Max taken time: 02/09/25 1114 SpO2 Min: 91 % Min taken time: 02/09/2514 Max: 98 % Max taken time: 02/09/25 0515 Height Min: 167.6 cm (5' 6 ) Min taken time: 02/08/25 155 Max: 167.6 cm (5' 6 ) Max taken time: 02/08/25 155 Weight Min: 121.6 kg (268 lb) Min taken time: 02/08/251557 Max: 121.6 kg (268 lb) Max taken time: 02/08/25 1558 Recent Labs Lab(s) Units 02/09/25 0441 02/08/25 1600 NA meq/L 142 142 K meq/L 4.0 3.8 CL meq/L 100 99 CO2 meq/L 31* 30* ANIONGAP 15* 17* CREATININE mg/dL 4.72* 3.62* BUN mg/dL 29.8* 21.5* CALCIUM mg/dL 9.0 9.0 PROT g/dL 6.6 -- ALBUMIN g/dL 3.0* -- ALKPHOS U/L 175* -- AST U/L 28 -- ALT U/L 35* -- BILITOT mg/dL 0.4 -- Recent Labs Lab(s) Units 02/09/25 0441 02/08/25 1600 WBC K/??L 8.4 8.9 HGB GM/DL 11.0* 10.7* HCT % 34.5 32.0* MCV fL 100* 98* PLT K/CU MM 313 320 LYMPHOPCT % 30 25 NEUTROABS K/??L 4.97 5.86 CRP mg/L -- 18.6* SEDRATE mm/HR -- 35* Intake/Output Summary (Last 24 hours) at 02/09/2025 1411 Last data filed at 02/08/2025 2130 Gross per 24 hour Intake 230 ml Output -- Net 230 ml Net IO Since Admission: 230 mL [02/09/25 1411] Estimated Creatinine Clearance: 12.8 mL/min (A) (by C-G formula based on SCr of 4.72 mg/dL (H)). Microbiology Results (last 7 days) Procedure Component Value Units Date/Time Wound Culture + Gram Stain [[id number]] Collected: 02/08/25 2319 Order Status: Completed Specimen: Wound from Arm, Right Upper Updated: 02/09/25 07 Result Too young to evaluate - will reincubate Gram Stain Result No cells seen Few gram positive cocci in pairs and clusters Few gram positive cocci Blood Culture [[id number]] Collected: 02/08/25 1600 Order Status: Resulted Specimen: Blood Updated: 02/08/25 1620 Blood Culture [[id number]] Collected: 02/08/25 1617 Order Status: Resulted Specimen: Blood Updated: 02/08/25 1620 Levels: 7/11 AM - ordered A/P: Vancomycin 1500mg IV x1 last PM. Will start vanc 1gm on MWF after HD. Plan for a level next week. Will adjust cefazolin to 1gm IV daily after HD. ID consult is pending. Pharmacy to follow Thank you, Leelee Starr, PharmD * Briana Araiza MD - 02/09/2025 12:15 PM EDT HOSPITALIST PROGRESS NOTE Patient: Carla Burkett Date: 02/09/2025 Subjective Date of Service: 02/09/2025 Complaining of chronic back pain. Complains of redness and drainage from AV fistula incision site. States that she picked off the scab and it started bleeding. Review of Systems Constitutional: Negative for chills and fever. Respiratory: Negative for cough and shortness of breath. Cardiovascular: Negative for chest pain and palpitations. Gastrointestinal: Negative for abdominal pain, diarrhea and vomiting. Musculoskeletal: Positive for back pain. Negative for myalgias. Neurological: Negative for weakness and headaches. Objective Vitals: Temp: [98 ??F (36.7 ??C)-99.9 ??F (37.7 ??C)] 98.5 ??F (36.9 ??C) Pulse: [82-92] 86 Resp: [13-20] 20 BP: (106-163)/(54-81) 130/69 Intake/Output: Intake/Output Summary (Last 24 hours) at 02/09/2025 1215 Last data filed at 02/08/2025 2130 Gross per 24 hour Intake 230 ml Output -- Net 230 ml Physical exam: Physical Exam Constitutional: Appearance: Normal appearance. She is obese. HENT: Head: Normocephalic. Eyes: Conjunctiva/sclera: Conjunctivae normal. Cardiovascular: Rate and Rhythm: Normal rate and regular rhythm. Heart sounds: No murmur heard. Pulmonary: Effort: No respiratory distress. Breath sounds: Normal breath sounds. No wheezing. Abdominal: General: Bowel sounds are normal. Palpations: Abdomen is soft. Tenderness: There is no abdominal tenderness. Musculoskeletal: Comments: S/p TMA Skin: Comments: Incision RUE slightly red with cream-colored purulence Neurological: General: No focal deficit present. Mental Status: She is alert and oriented to person, place, and time. Psychiatric: Mood and Affect: Mood normal. Behavior: Behavior normal. Pertinent Recent Radiology: CT right upper extremity 02/08: Abnormal soft tissue prominence with surrounding stranding in the antecubital region, superficial cellulitis, no abscess or gas Assessment and Plan #Right upper extremity cellulitis AV fistula incision site Vascular surgery consulted Does not meet sepsis criteria WBC normal at 8.4 CRP elevated at 18.6 Pharmacy to dose vancomycin Empiric cefazolin Wound culture pending #ESRD on HD Continue MWF schedule Nephrology following Renal diet Code Status: Current Code Status Full code Discharge Planning: Barriers to discharge/reason for continued hospitalization: Continue IV antibiotics. Awaiting vascular evaluation Expected (tentative) discharge in: 2 days Expected discharge disposition: Home Additional discharge needs: PCP follow-up, nephrology follow-up Signed: Briana Araiza MD 02/09/2025, 12:15 PM * Delores Hartley RN - 02/09/2025 10:22 AM EDTSummary: Discharge Planning 02/09/25 1015 Home Environment Type of Residence correction Living Arrangements Alone Support Systems Family members;Friends/neighbors Accessibilty Issues Ramp Patient returning to prior living situation? 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 No Discharge Plan Discussed The discharge plan was discussed with patient. Discharge Plan Outcome Patient/family volunteer patient representative agrees with the discharge plan Discharge Barriers Test(s) Pending;Diet Type of Assistive Devices Needed for Discharge None Patient Discharge Goal Fdc Facility Pt has readmission risk score of 16%. This CM met with the Pt at bedside introduced self and role. Pt resides at [facility] since Sep 28, 2023. This CM sent them a referral via careport. Pt is semi independent with ADL's and uses Prosthesis (R&L) and WC (at bedside) for Mobility. Pt goes to M,W,F at [facility]; Chair time 10:45am. Transport provided by [facility] [facility]: [phone]. Discharge Plan: [facility] Barrier: Medical Readiness Transport: Ambulance if on Sat/Sun; Mon-Fri [facility] Addendum: 2:50pm: This CM reached out to [facility] admissions [phone]. Was transferred [facility], This CM left her a with contact info. Wanted the days for bedhold and cut off time?CM will follow. * Kenton Herrera, PharmD - 02/08/2025 8:43 PM EDT Clinical Rx Vancomycin Progress Note HPI: 54 y.o.female presents to [facility] from dialysis clinic due to bleeding and possible infection of AV fistula. Pt had fistula creation on 01/10/25 at this facility. Pt received dialysis today through tunneled CV catheter in neck. PMH of DM, ESRD on HD, CAD, HTN and HLD. Concern for surgical site infection. Consult: Vancomycin Consulting: SHERLY Anderson Indication: Skin-Soft Tissue Infection (SSTI) Goal: 12-18 mg/L Anti-infectives (From admission, onward) Start Dose/Rate Route Frequency Ordered Stop 02/08/252040 vancomycin (VANCOCIN) IV actively being dosed by Pharmacy 1 each intravenous See admin instructions 02/08/252040 Allergies as of 02/08/2025 - Review Complete 02/08/2025 Allergen Reaction Noted Sulfa (sulfonamide antibiotics) 10/10/2022 Tylox [oxycodone-acetaminophen] Nausea Only 10/10/2022 BP Min: 124/60 Min taken time: 02/08/252004 Max: 163/78 Max taken time: 02/08/251709 Temp Min: 98 ??F (36.7 ??C) Min taken time: 02/08/251557 Max: 98 ??F (36.7 ??C) Max taken time: 02/08/25 155 Pulse Min: 86 Min taken time: 02/08/252019 Max: 89 Max taken time: 02/08/258 Resp Min: 13 Min taken time: 02/08/251709 Max: 18 Max taken time: 02/08/258 SpO2 Min: 91 % Min taken time: 02/08/252004 Max: 98 % Max taken time: 02/08/251557 Height Min: 167.6 cm (5' 6 ) Min taken time: 02/08/25 1558 Max: 167.6 cm (5' 6 ) Max taken time: 02/08/25 1558 Weight Min: 121.6 kg (268 lb) Min taken time: 02/08/25 1558 Max: 121.6 kg (268 lb) Max taken time: 02/08/25 1558 Recent Labs Lab(s) Units 02/08/25 1600 NA meq/L 142 K meq/L 3.8 CL meq/L 99 CO2 meq/L 30* ANIONGAP 17* CREATININE mg/dL 3.62* BUN mg/dL 21.5* CALCIUM mg/dL 9.0 Recent Labs Lab(s) Units 02/08/25 1600 WBC K/??L 8.9 HGB GM/DL 10.7* HCT % 32.0* MCV fL 98* PLT K/CU MM 320 LYMPHOPCT % 25 NEUTROABS K/??L 5.86 CRP mg/L 18.6* SEDRATE mm/HR 35* No intake or output data in the 24 hours ending 02/08/252042 Net IO Since Admission: No IO data has been entered for this period [02/08/252042] Estimated Creatinine Clearance: 16.6 mL/min (A) (by C-G formula based on SCr of 3.62 mg/dL (H)). Microbiology Results (last 7 days) Procedure Component Value Units Date/Time Wound Culture + Gram Stain [[id number]] Order Status: Sent Specimen: Wound from Arm, Right Upper Blood Culture [[id number]] Collected: 02/08/25 1600 Order Status: Resulted Specimen: Blood Updated: 02/08/25 1620 Blood Culture [[id number]] Collected: 02/08/25 1617 Order Status: Resulted Specimen: Blood Updated: 02/08/25 1620 Levels: 02/10 AM - ordered A/P: Based on age, weight, and renal function, will order Vancomycin 1500mg IV x1 as initial dose. Pt isESRD on dialysis and schedule appears to be MWF. No dialysis orders placed yet this admission. Pharmacy vancomycin placeholder ordered at this time. Vancomycin level ordered with AM labs on 02/10. Rx to follow Kenton Herrera PharmD Ext. [phone] documented in this encounter H&P Notes * Olegario Varghese PA-C - 02/08/2025 8:31 PM EDT [facility] HOSPITALIST HISTORY AND PHYSICAL Patient Name: Carla Burkett : 1970 Date: 02/08/2025 PCP: Wally Yoo MD Date of Admission: 02/08/2025 Chief Complaint: Chief Complaint Patient presents with Vascular Access Problem History of Present Illness Carla Burkett is a 54 y.o. female with a history of who presents to [facility] in [place], [place] for further evaluation and management of possible wound infection. Patient presented to the ER stating that she had a fistula placed in her right arm several weeks ago and that she might have a possible infection. She is currently been on a course of doxycycline that she started last week but she had to complete the course. She states that part of the scab off her site and when she went to the dialysis clinic today they were concerned and sent her here for evaluation. She did complete dialysis today, she has a Port-A-Cath and they used it for access. She has yet to use her fistula s cassie placement. She denies any systemic signs symptoms such as fevers, chills, nausea, vomiting, diarrhea, chest pain, shortness of breath. Significant labs in the ER showed ESR 35, CRP 18.6, creatinine 3.62, BUN/creatinine 6, GFR 14. CT upper extremity without contrast showed abnormal soft tissue prominence with surrounding stranding in the antecubital region encasing the junction of the basilar and antecubital veins. There was also noted edema and stranding along the posterior distal humerus and acromion suggestive of superficial cellulitis. No large volume abscess noted. ER provider spoke with vascular and recommended admission with consult. Past Medical History: Past Medical History: Diagnosis Date C. difficile colitis Cardiac arrest ([facility]) 07/19/2024 CHF (congestive heart failure) ([facility]) 01/19/2024 Chronic kidney disease Coronary artery disease-heart stents x 2 2019 CTS (carpal tunnel syndrome)left Depression Diabetes mellitus (HCC) ESRD (end stage renal disease) on dialysis ([facility])/thu Hyperlipidemia, unspecified 10/06/2022 Hypertension Kidney failure Obstructive [...] fistula creation; Surgeon: Baljinder Sloan MD; [facility]; Service: Vascular Surgery; Laterality: Right; CREATION,PERICARDIAL WINDOW N/A 12/19/2022 Procedure: CREATION, PERICARDIAL WINDOW; Surgeon: Bogdan Hernandez IV, MD; [facility]; Service: CV Surgery; Laterality: N/A; AO#3, AVAIL TF, 3HR(A) GALLBLADDER SURGERY heart stents INSERTION,DIALYSIS CATHETER KNEE ARTHROSCOPY Right ORIF,FEMUR Left 08/10/2023 Procedure: ORIF LT FEMUR); Surgeon: Otf Birmingham MD; [facility]; Service: OrthopaedicSurgery; Laterality: Left; AO# 4, AVAIL TF melvi left hip TONSILLECTOMY TRANSPOSITION,VEIN Left 04/20/2023 Procedure: (LT UPPER EXTREMITY AV FISTULA); Surgeon: Baljinder Sloan MD; [facility]; Service: Vascular; Laterality: Left; IN 0600, [...] she can tolerate hydrocodone (verified 12/19/22) 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 Available past medical, social and family history reviewed. Objective Vitals: Temp: [98 ??F (36.7 ??C)] 98 ??F (36.7 ??C) Pulse: [86-89] 86 Resp: [13-18] 14 BP: (128-163)/(60-78) 134/63 Intake/Output: No intake or output data in the 24 hours ending 02/08/252030 Physical Exam Vitals reviewed. Constitutional: Appearance: She is obese. HENT: Head: Normocephalic and atraumatic. Eyes: Extraocular Movements: Extraocular movements intact. Conjunctiva/sclera: Conjunctivae normal. Pupils: Pupils are equal, round, and reactive to light. Cardiovascular: Rate and Rhythm: Normal rate and regular rhythm. Pulmonary: Effort: Pulmonary effort is normal. No respiratory distress. Breath sounds: Normal breath sounds. Abdominal: General: Bowel sounds are normal. Skin: Comments: Fistula incision site has noted mild erythema surrounding with some noted dry discharge. Neurological: Mental Status: She is alert and oriented to person, place, and time. Psychiatric: Mood and Affect: Mood normal. Behavior: Behavior normal. Recent Labs: Results for orders placed or performed during the hospital encounter of 02/08/25 (from the past 24 hours) CBC with Auto Diff Status: Abnormal Collection Time: 02/08/25 4:00 PM Result Value Ref Range WBC 8.9 4.0 - 10.0 K/??L RBC 3.28 (L) 3.93 - 5.22 M/??L Hemoglobin 10.7 (L) 11.2 - 15.7 GM/DL Hematocrit 32.0 (L) 34.1 - 44.9 % MCV 98 (H) 79 - 95 fL MCH 32.6 (H) 25.6 - 32.2 pg MCHC 33.4 32.2 - 35.5 GM/DL RDW 13.2 11.7 - 14.4 % Platelets 320 140 - 375 K/CU MM MPV 9.6 9.4 - 12.3 fL % Neutros 65 34 - 71 % % Lymphs 25 19 - 52 % % Monos 6 5 - 13 % % Eos 2 1 - 6 % % Baso 1 0 - 1 % NRBC Absolute <0.01 0 - 0.012 K/ul # Neutros 5.86 1.56 - 6.13 K/??L # Lymphs 2.24 1.18 - 3.74 K/??L # Monos 0.57 0.24 - 0.86 K/??L # Eos 0.14 0.04 - 0.36 K/??L # Baso 0.05 0.01 - 0.08 K/??L Immature Granulocytes-Relative 0.90 (H) 0.01 - 0.43 % # IG 0.08 (H) 0.00 - 0.03 K/uL Basic Metabolic Panel Status: Abnormal Collection Time: 02/08/25 4:00 PM Result Value Ref Range Sodium 142 136 - 145 meq/L Potassium 3.8 3.4 - 5.1 meq/L CO2 30 (H) 22 - 29 meq/L Chloride 99 98 - 112 meq/L Glucose 155 (H) 74 - 100 mg/dL BUN 21.5 (H) 9.8 - 20.1 mg/dL Creatinine 3.62 (H) 0.57 - 1.11 mg/dL BUN/Creatinine 6 (L) 8 - 20 Calcium 9.0 8.4 - 10.2 mg/dL Anion Gap 17 (H) 4 - 12 eGFR (mL/min/1.73m2) 14 (L) >=60 mL/min/1.73m2 Osmolality Calc 289.4 mOsm/kg Lactic Acid with reflex (SJ) Status: Normal Collection Time: 02/08/25 4:00 PM Result Value Ref Range Lactic Acid Level (mmol/L) 1.7 0.5 - 2.2 mmol/L Sedimentation rate Status: Abnormal Collection Time: 02/08/25 4:00 PM Result Value Ref Range Sed Rate 35 (H) 0 - 30 mm/HR C-Reactive Protein Status: Abnormal Collection Time: 02/08/25 4:00 PM Result Value Ref Range CRP 18.6 (H) 0.0 - 5.0 mg/L Blue Top Extra Tubes Status: None Collection Time: 02/08/25 4:17 PM Result Value Ref Range HOLD SPECIMEN (SJ - BKR) Hold for add-ons. PST Top Extra Tubes Status: None Collection Time: 02/08/25 4:17 PM Result Value Ref Range HOLD SPECIMEN (SJ - BKR) Hold for add-ons. Microbiology Results (last 7 days) Procedure Component Value Units Date/Time Blood Culture [[id number]] Collected: 02/08/25 1600 Order Status: Resulted Specimen: Blood Updated: 02/08/25 1620 Blood Culture [[id number]] Collected: 02/08/25 1617 Order Status: Resulted Specimen: Blood Updated: 02/08/25 1620 Radiology: Radiology Results (last 3 days) Procedure Component Value Units Date/Time CT upper extremity without contrast right [[id number]] Collected: 02/08/25 1743 Order Status: Completed Updated: 02/08/25 180 Narrative: CT RIGHT UPPER EXTREMITY, ATTENTION ELBOW REGION HISTORY: Pain, TECHNIQUE: Thin section axial CT with sagittal and coronal reconstructions. FINDINGS: No fracture or bone destruction is present. There is stranding which overlies the olecranon and posteromedial distal humerus which is suspicious for cellulitis. There is no gas in the soft tissues. There is stranding and soft tissue irregularity in the antecubital region which surrounds the basilic vein-antecubital vein junction. This is also in the region of the brachial artery. Given the presence of multiple surgical clips, it is not possible to differentiate chronic postoperative change from an acute inflammatory process particularly without the benefit of prior exams. No gas is seen in the soft tissues. Aside from the surgical clips, no foreign body is seen. Impression: 1. Abnormal soft tissue prominence with surrounding stranding in the antecubital region encasing the junction of the basilic and antecubital veins. Without the benefit of prior exams, it is not possible to distinguish whether this represents an acute inflammatory process or chronic postoperative change with scarring. 2. Edema and stranding along the posterior distal humerus and olecranon suggestive of superficial cellulitis. 3. No large volume abscess. No gas in the soft tissues. This study was performed using dose reduction techniques to achieve radiation exposure as low as reasonably achievable (ALARA). Images reviewed, interpreted, and dictated by Nirav Navarro MD All Documented Medications: Scheduled Meds: Continuous Infusions: Current Facility-Administered Medications Medication Dose Route Frequency Provider Last Rate Last Admin bisacodyL (DULCOLAX) EC tablet 10 mg 10 mg oral Daily PRN Olegario Varghese PA-C Or bisacodyL (DULCOLAX) suppository 10 mg 10 mg rectal Daily PRN Olegario Varghese PA-C hydrALAZINE (APRESOLINE) injection 10 mg 10 mg intravenous Q6H PRN Olegario Varghese PA-C melatonin tablet 3 mg 3 mg oral Every Night PRN Olegario Varghese PA-C ondansetron (ZOFRAN-ODT) disintegrating tablet 4 mg 4 mg oral Q8H PRN Olegario Varghese PA-C Or ondansetron (ZOFRAN) injection 4 mg 4 mg intravenous Q8H PRN Olegario Varghese PA-C polyethylene glycol (GLYCOLAX) packet 17 g 17 g oral Daily PRN Olegario Varghese PA-C Current Outpatient Medications Medication Sig Dispense Refill [...] total) by mouth daily. Assessment and Plan #Fistula surgical site infection s/p 01/10 #Cellulitis of the right upper extremity -WBC WNL, ESR 35, CRP 18.6. Vital signs stable, afebrile. - Fistula with surrounding erythema with surrounding warmth and induration. Mild purulent material in wound bed appearing dry with no obvious drainage. - CT of extremity without contrast showed abnormal soft tissue with stranding, edema and stranding along the posterior distal humerus suggesting superficial cellulitis. - Consult vascular - Started IV vancomycin - Wound culture - Monitor for worsening signs/symptoms of infection. #ESRD on dialysis - Patient had dialysis today - Creatinine 3.62, GFR 14 - Avoid nephrotoxic drugs - Monitor renal function - Consult nephrology for dialysis depending patient hospital stay - Patient on MWF schedule. # Hypertension - Continue amlodipine - Hydralazine as needed - Labetalol as needed #CAD - Continue statin, Coreg, Imdur # Diabetes mellitus type 2 with neuropathy - Insulin sliding scale #CHF - Echo on 07/19/2024 showed EF 75% #Anxiety depression - Continue Effexor # Morbid obesity - Complicates all aspects of care. General orders as follows: -As needed antihypertensives with parenteral hydralazine 10 mg every 6 hrs for BP> 160/100. -As needed antiemetic with parenteral Zofran 4 mg every 8hrs for nausea. -Oral acetaminophen 650 mg every 6hrs for mild pain, Post 5 mg every 6hrs for moderate/severe pain. -Parenteral morphine 2 mg every 6hrs for severe pain. -Laboratory work and pertinent imaging results [...] decided to admit them. They will require inpatient requring >48 hours for work up and stabilization of their condition. - High complexity of medical decision. -Evaluated 02/08/2025, 8:31 PM I, Olegario Varghese, have personally reviewed pertinent laboratory, EKG, and [...] provider. Glycemic control: Goal BS between 110-180 ISS Nutrition: Orders Placed This Encounter Procedures NPO Except: Sips with meds VTE prophylaxis: SCDs AM orders including labs/radiology/procedures placed. Code Status: Current Code Status Full code Disposition: Admit Prognosis: TBD Signed: Olegario Varghese PA-C 02/08/2025, 8:31 PM Voice orthodontist vice president technology ([employer]) is used for dictation of this note and sound-alike words might be erroneously placed despite reviewing the note for accuracy. Errors in dictation mayreflect use of voice recognition software and not all errors in orthodontist vice president may have been detected prior to signing. Active Orders Imaging Ultrasound upper extremity arteries left Frequency: Once Number of Occurrences: 1 Occurrences Lab Magnesium Frequency: PRN Number of Occurrences: Until Specified Order Comments: If Mg less than or equal to 1.7 mg/dL previous day Potassium Frequency: PRN Number of Occurrences: Until Specified Order Comments: If Potassium Level Less than 3.5 mmol/L. Draw 1 hour after replacement and in the AM Diet NPO Except: Sips with meds Frequency: Effective Now Number of Occurrences: Until Specified Nursing Ambulate TID Frequency: Until Discontinued Number of Occurrences: Until Specified Apply sequential compression device Frequency: Until Discontinued Number of Occurrences: Until Specified Intake and Output Frequency: Q Shift Number of Occurrences: Until Specified Notify provider [...] Occurrences: Until Specified Consult Inpatient consult to Vascular Surgery Frequency: Once Number of Occurrences: 1 Occurrences Respiratory Care Oxygen Therapy -Nasal Cannula Frequency: Continuous Number of Occurrences: Until Specified Admission Admit to inpatient Frequency: Once Number of Occurrences: 1 Occurrences Medications bisacodyL (DULCOLAX) EC tablet 10 mg Linked Order: Or Frequency: Daily PRN Dose: 10 mg Route: oral bisacodyL (DULCOLAX) suppository 10 mg Linked Order: Or Frequency: Daily PRN Dose: 10 mg Route: rectal hydrALAZINE (APRESOLINE) injection 10 mg Frequency: Q6H PRN Dose: 10 mg Route: intravenous melatonin tablet 3 mg Frequency: Every Night PRN Dose: 3 mg Route: oral ondansetron (ZOFRAN) injection 4 mg Linked Order: Or Frequency: Q8H PRN Dose: 4 mg Route: intravenous ondansetron (ZOFRAN-ODT) disintegrating tablet 4 mg Linked Order: Or Frequency: Q8H PRN Dose: 4 mg Route: oral polyethylene glycol (GLYCOLAX) packet 17 g Frequency: Daily PRN Dose: 17 g Route: oral Cosigned by Joo Melendrez MD at 02/09/2025 8:39 AM EDT documented in this encounter Consult Notes * Delores Hartley RN - 02/13/2025 3:20 PM EDTAssociated Order(s): IP CONSULT TO CARE COORDINATION Summary: CM Consult Consult acknowledged; IV abx order, H/P and DC summary has been faxed to [facility]. * Delores Hartley RN - 02/10/2025 2:43 PM EDTAssociated Order(s): IP CONSULT TO CARE COORDINATION Summary: Consult for IV abx at HD Consult Acknowledged; This CM reached out to [facility] [place] Telephone Triage Nurse [phone] to discuss the consult.Addie stated that they need ID final recs. This CM provided Addie, the pt's info and the IV abx that are currently recommended. Addie suggested that CM fax orders once final recs are available to HD clinic [phone]. Addie will update the clinic today of the IV abx the pt will be starting. MARK abrams. * Edgar Hopper MD - 02/10/2025 1:27 PM EDTAssociated Order(s): FS_MODEL_IP IP CONSULT TO INFECTIOUS DISEASES Images from the original note were not included. [facility] Patient Name: Carla Burkett : 1970 Date of Consult: 02/10/2025 Admission Date: 02/08/2025 Requesting Provider: Dr Araiza Evaluating Physician: Edgar Hopper MD Chief Complaint: right arm infection Reason for Consultation: right arm surgical site infection History of present illness: Patient is a 54 y.o. female with history of diabetes, end-stage renal disease with hemodialysis q. Jmyzfo-Guhbzfzfb-Dxovrh, right arm brachiocephalic AV fistula creation January 10, [address] Sloan; patient reports that she had picked a scab from the surgical site, subsequently had become red with drainage, culture with Staph aureus, empiric antibiotics initiated and surgical team has seen Right forearm pain is improved/dull at present, nonradiating, constant, worse with palpation, better with pain meds and 3 /10 No headache photophobia or neck stiffness. No shortness of breath cough or hemoptysis. No nausea vomiting diarrhea or abdominal pain. No dysuria hematuria or pyuria. No other new skin rash. Aside from self-induced picking at the surgical site/scab, no blunt force or penetrating trauma. Noanimal insect or arthropod bite. No fresh/brackish/salt water exposure. No prior history for MRSA VRE C. Difficile or ESBL/KPC/CRE organisms Review of Systems Constitutional-- No Fever, chills or sweats. Appetite good. No malaise. Heent-- No new vision, hearing or throat complaints. No epistaxis or oral sores. Denies odynophagiaor dysphagia. No headache, photophobia or neck stiffness. CV-- No chest pain, palpitation or syncope Resp-- No SOB, cough, or hemoptysis GI- No nausea, vomiting, or diarrhea. -- No dysuria, hematuria, or flank pain. Denies hesitancy, urgency or flank pain. Lymph- no swollen lymph nodes in neck, axilla or groin. Heme- No active bruising or bleeding MS-- no swelling or pain in the bones or joints of arms or legs. No new back pain. Neuro-- No acute focal weakness or numbness in the arms or legs. Skin-- No rash Past Medical History: Diagnosis Date C. difficile colitis Cardiac arrest ([facility]) 07/19/2024 CHF (congestive heart failure) ([facility]) 01/19/2024 Chronic kidney disease Coronary artery disease-heart stents x 2 2019 CTS (carpal tunnel syndrome)left Depression Diabetes mellitus (HCC) ESRD (end stage renal disease) on dialysis ([facility])/thu Hyperlipidemia, unspecified 10/06/2022 Hypertension Kidney failure Obstructive sleep apnea Osteomyelitis (HCC) resolved Peripheral vascular disease due to secondary diabetes ([facility]) Post-menopausal Wound of right foot wrapped Past Surgical History: Procedure Laterality Date AMPUTATION,TOE Right BELOW KNEE LEG AMPUTATION Left toes first then debridement CARPAL TUNNEL RELEASE Right CREATION,A-V FISTULA Right 01/10/2025 Procedure: LEFT IJ tunneled catheter exchanged RIGHT brachiocephalic arteriovenous fistula creation; Surgeon: Baljinder Sloan MD; Location: [facility] OR; Service: Vascular Surgery; Laterality: Right; CREATION,PERICARDIAL WINDOW N/A 12/19/2022 Procedure: CREATION, PERICARDIAL WINDOW; Surgeon: Bogdan Hernandez IV, MD; [facility]; Service: CV Surgery; Laterality: N/A; AO#3, AVAIL TF, 3HR(A) GALLBLADDER SURGERY heart stents INSERTION,DIALYSIS CATHETER KNEE ARTHROSCOPY Right ORIF,FEMUR Left 08/10/2023 Procedure: ORIF LT FEMUR); Surgeon: Otf Birmingham MD; [facility]: [facility]; Service: OrthopaedicSurgery; Laterality: Left; AO# 4, AVAIL TF melvi left hip TONSILLECTOMY TRANSPOSITION,VEIN Left 04/20/2023 Procedure: (LT UPPER EXTREMITY AV FISTULA); Surgeon: Baljinder Sloan MD; [facility]; Service: Vascular; Laterality: Left; IN 0600, 1 HR (R) Social History Socioeconomic History Marital status: Single Spouse name: Not on file Number of children: Not on file Years of education: Not on file Highest education level: Not on file Occupational History Not on file Tobacco Use Smoking status: Some Days Types: Cigarettes Smokeless tobacco: Former Tobacco comments: Vap daily Substance and Sexual Activity Alcohol use: Not Currently Drug use: Not Currently Types: Marijuana Comment: yrs ago Sexual activity: Not on file Other Topics Concern Not on file Social History Narrative Not on file Social Drivers of Health Financial Resource Strain: Low Risk (02/09/2025) Financial Resource Strain Struggle to pay for basics: Not hard at all Food Insecurity: No Food Insecurity (02/09/2025) Food Insecurity Food run out past 12 months: Never true Food did not last past 12 months: Never true Transportation: No Transportation Needs (02/09/2025) Transportation Needs Transportation unreliable past 12 months: No Physical Activity: Inactive (02/09/2025) Physical Activity Minutes of exercise per week: 0 Social Connections: Unknown (02/09/2025) Family and Community Support Help with Day to Day Activities: I get all the help I need Feeling Lonely or Isolated: 0 No family history on file. Allergies Allergen Reactions Sulfa (Sulfonamide Antibiotics) Tylox [Oxycodone-Acetaminophen] Nausea Only Pt states she can tolerate hydrocodone (verified 12/19/22) @Scheduled Meds: amLODIPine 10 mg oral Daily 10 mg at 02/10/25900 aspirin 81 mg oral Daily 81 mg at 02/10/25900 atorvastatin 40 mg oral Every Night 40 mg at 02/09/252042 carvediloL 12.5 mg oral BID 12.5 mg at 02/10/25900 ceFAZolin 1 g intravenous Q24H gabapentin 300 mg oral Every Night 300 mg at 02/09/252042 heparin 5,000 Units subcutaneous Q8H 5,000 Units at 02/10/25 1234 insulin lispro 0-6 Units subcutaneous 4x Daily AC 4 Units at 02/10/25 1235 isosorbide mononitrate 30 mg oral Daily 30 mg at 02/10/25900 lidocaine 1 patch transdermal Q24H 1 patch at 02/10/25 0536 prasugreL HCl 10 mg oral Daily 10 mg at 02/10/25900 sevelamer 800 mg oral TID with meals 800 mg at 02/10/254 vancomycin 1,000 mg intravenous Once per day on Thursday venlafaxine XR 37.5 mg oral Daily 37.5 mg at 02/10/25900 Continuous Infusions: Current Facility-Administered Medications Medication Dose Route Frequency Provider Last Rate Last Admin acetaminophen (TYLENOL) tablet 500 mg 500 mg oral Q6H PRN Briana Araiza MD 500 mg at 02/10/25412 amLODIPine (NORVASC) tablet 10 mg 10 mg oral Daily Olegario Varghese PA-C 10 mg at 02/10/25900 aspirin EC tablet 81 mg 81 mg oral Daily Olegario Varghese PA-C 81 mg at 02/10/25900 atorvastatin (LIPITOR) tablet 40 mg 40 mg oral Every Night Olegario Varghese PA-C 40 mg at 02/09/252042 baclofen (LIORESAL) tablet 5 mg 5 mg oral Every Night PRN Briana Araiza MD 5 mg at 02/10/25411 bisacodyL (DULCOLAX) EC tablet 10 mg 10 mg oral Daily PRN Olegario Varghese PA-C Or bisacodyL (DULCOLAX) suppository 10 mg 10 mg rectal Daily PRN Olegario Varghese PA-C carvediloL (COREG) tablet 12.5 mg 12.5 mg oral BID Olegario Varghese PA-C 12.5 mg at 02/10/25 0901 ceFAZolin (ANCEF) 1 g in sodium chloride 0.9 % (NS) 50 mL BLANCA IVPB 1 g intravenous Q24H Briana Araiza MD dextrose 50% (D50W) injection 25 g 25 g intravenous Q15 Min PRN Olegario Varghese PA-C gabapentin (NEURONTIN) capsule 300 mg 300 mg oral Every Night Olegario Varghese PA-C 300 mg at 02/09/25 2043 glucagon injection 1 mg 1 mg intraMUSCULAR Q15 Min PRN Olegario Varghese PA-C glucose chew tab 16 g 16 g oral Q15 Min PRN Olegario Varghese PA-C heparin injection 5,000 Units 5,000 Units subcutaneous Q8H Arabella Luu, [employer] 5,000 Units at 02/10/25 1234 hydrALAZINE (APRESOLINE) injection 10 mg 10 mg intravenous Q6H PRN Olegario Varghese PA-C insulin lispro (HUMALOG, ADMELOG) injection 0-6 Units 0-6 Units subcutaneous 4x Daily AC Olegario Varghese PA-C 4 Units at 02/10/25 1235 isosorbide mononitrate (IMDUR) 24 hr tablet 30 mg 30 mg oral Daily Olegario Varghese PA-C 30 mg at 02/10/25 0901 lidocaine (LIDODERM) patch 4% 1 patch transdermal Q24H Edgar Reis PA-C 1 patch at 02/10/25 0536 melatonin tablet 3 mg 3 mg oral Every Night PRN Olegario Varghese PA-C ondansetron (ZOFRAN-ODT) disintegrating tablet 4 mg 4 mg oral Q8H PRN Olegario Varghese PA-C Or ondansetron (ZOFRAN) injection 4 mg 4 mg intravenous Q8H PRN Olegario Varghese PA-C polyethylene glycol (GLYCOLAX) packet 17 g 17 g oral Daily PRN Oleagrio Varghese PA-C prasugreL HCl (EFFIENT) tablet 10 mg 10 mg oral Daily Olegario Varghese PA-C 10 mg at 02/10/25 0901 sevelamer (RENAGEL) tablet 800 mg 800 mg oral TID with meals DAMIEN Dunham 800 mg at 02/10/25 1234 vancomycin (VANCOCIN) 1,000 mg in sodium chloride 0.9% (NS) non-DEHP 250 mL IVPB 1,000 mg intravenous Once per day on Thursday Olegario Varghese PA-C venlafaxine XR (EFFEXOR-XR) 24 hr capsule 37.5 mg 37.5 mg oral Daily Olegario Varghese PA-C 37.5 mg at 02/10/25 0901 Physical Exam: Vital Signs Vitals: 02/10/25 1012 02/10/25 1027 02/10/25 1030 02/10/25 1224 BP: 130/70 Pulse: 80 82 80 84 Resp: 16 Temp: 97.8 ??F (36.6 ??C) TempSrc: Oral SpO2: 98% 92% 100% 100% Weight: Height: GENERAL: Awake and alert, in no acute distress. HEENT: Normocephalic, atraumatic. PERRL. EOMI. No conjunctival injection. No icterus. Oropharynx clear without evidence of thrush or exudate. NECK: Supple without nuchal rigidity. No mass. LYMPH: No cervical, axillary or inguinal lymphadenopathy. HEART: RRR; No murmur. LUNGS: Clear to auscultation bilaterally without wheezing, rales, rhonchi. Normal respiratory effort. Nonlabored. ABDOMEN: Soft, nontender, nondistended. Positive bowel sounds. No rebound or guarding. EXT: See below : Without Roberts catheter. MSK: FROM without joint effusions noted arms/legs. SKIN: Warm and dry without cutaneous eruptions on Inspection/palpation. NEURO: Oriented to PPT. No focal deficits on motor/sensory exam at arms/legs. PSYCHIATRIC: Normal insight and judgement. Cooperative with PE Right arm AV fistula surgical site with open wound/dehiscence, some slough and serosanguineous drainage but unable to express any purulence. Some induration at the rim with some vague erythema but nodiscrete mass bulge or fluctuance. No crepitus or bulla. No visible prosthetic material Laboratory Data Lab Results Component Value Date WBC 8.4 02/09/2025 HGB 11.0 (L) 02/09/2025 HCT 34.5 02/09/2025 MCV 100 (H) 02/09/2025 PLT 313 02/09/2025 Lab Results Component Value Date GLUCOSE 274 (H) 02/10/2025 CALCIUM 9.0 02/09/2025 NA 142 02/09/2025 K 4.0 02/09/2025 CO2 31 (H) 02/09/2025 CL 100 02/09/2025 BUN 29.8 (H) 02/09/2025 CREATININE 4.72 (H) 02/09/2025 Estimated Creatinine Clearance: 12.8 mL/min (A) (by C-G formula based on SCr of 4.72 mg/dL (H)). Lab Results Component Value Date ALT 35 (H) 02/09/2025 AST 28 02/09/2025 ALKPHOS 175 (H) 02/09/2025 BILITOT 0.4 02/09/2025 Lab Results Component Value Date CRP 18.6 (H) 02/08/2025 Lab Results Component Value Date SEDRATE 35 (H) 02/08/2025 Microbiology: Microbiology Results (last 7 days) Procedure Component Value Units Date/Time Wound Culture + Gram Stain [[id number]] (Abnormal) Collected: 02/08/25 2319 Order Status: Completed Specimen: Wound from Arm, Right Upper Updated: 02/10/25 1101 Result Moderate Growth Staphylococcus aureus Gram Stain Result No cells seen Few gram positive cocci in pairs and clusters Few gram positive cocci Blood Culture [[id number]] Collected: 02/08/25 1600 Order Status: Completed Specimen: Blood Updated: 02/09/25 1701 Result No growth in 24 hours Narrative: Blood volume is not within specification. May compromise patient blood culture results. Blood Culture [[id number]] Collected: 02/08/25 1617 Order Status: Completed Specimen: Blood Updated: 02/09/25 1701 Result No growth in 24 hours Narrative: Blood volume is not within specification. May compromise patient blood culture results. Radiology: Radiology Results (last 3 days) Procedure Component Value Units Date/Time Ultrasound hemodialysis access [[id number]] Collected: 02/09/25 0847 Order Status: Completed Updated: 02/09/25 1506 Narrative: Vascular Upper Extremities Arterial Duplex Procedure Demographics Patient Name YANG Norris Age 54 Patient Number [id number] Gender Female Race Unknown Ethnicity Corporate ID [id number] Height 66 Date of 1970 Weight 268 Accession Number [id number] BSA 2.27 m^2 Room Number 400 BMI 43.26 kg/m^2 Referring Physician ERNST AVILA Physician Assistant To The Dean OLIVIA Blount Procedure Type of Study: Extremities Arteries: Upper Extremities Arterial Duplex, Hemodialysis Graft Access Duplex, US HEMODIALYSIS ACCESS. Impressions Summary ################################## Indication: N18.6 End stage renal disease. RIGHT: Patent Brachiocephalic AVF. VOLUME FLOW: Mid: 1044 ml/min. ################################## Allergies - Sulfa. Patient Status:Inpatient . Study Location:Portable. Technical Quality:Adequate visualization. Risk Factors History of Disease + + + + !Diagnosis !Date !Comments ! + + + + !Diabetes ! ! ! + + + + !CAD ! ! ! + + + + !Hypertension ! ! ! + + + + !Hyperlipidemia ! ! ! + + + + !Renal failure ! ! ! + + + + Velocities are measured in cm/s ; Diameters are measured in mm Signature CT upper extremity without contrast right [[id number]] Collected: 02/08/25 1743 Order Status: Completed Updated: 02/08/25 180 Narrative: CT RIGHT UPPER EXTREMITY, ATTENTION ELBOW REGION HISTORY: Pain, TECHNIQUE: Thin section axial CT with sagittal and coronal reconstructions. FINDINGS: No fracture or bone destruction is present. There is stranding which overlies the olecranon and posteromedial distal humerus which is suspicious for cellulitis. There is no gas in the soft tissues. There is stranding and soft tissue irregularity in the antecubital region which surrounds the basilic vein-antecubital vein junction. This is also in the region of the brachial artery. Given the presence of multiple surgical clips, it is not possible to differentiate chronic postoperative change from an acute inflammatory process particularly without the benefit of prior exams. No gas is seen in the soft tissues. Aside from the surgical clips, no foreign body is seen. Impression: 1. Abnormal soft tissue prominence with surrounding stranding in the antecubital region encasing the junction of the basilic and antecubital veins. Without the benefit of prior exams, it is not possible to distinguish whether this represents an acute inflammatory process or chronic postoperative change with scarring. 2. Edema and stranding along the posterior distal humerus and olecranon suggestive of superficial cellulitis. 3. No large volume abscess. No gas in the soft tissues. This study was performed using dose reduction techniques to achieve radiation exposure as low as reasonably achievable (ALARA). Images reviewed, interpreted, and dictated by Nirav Navarro MD Impression: Acute right forearm brachiocephalic fistula surgical site infection with dehiscence after patient had picked out a scab, Staph aureus and culture and further compounded by her comorbidity. Surgical team has followed with any timing/option/threshold for surgery at their discretion. I am unable to confirm any vascular structure involvement and no prosthetic material involvement as per vascular teamat present. Patient understands deeper tissue involvement could evolve; she understands the risk for persistent/recurrent or nonhealing wounds, persistent/progressive or recurrent infection and risk for functional/limb loss etc. End-stage renal disease with hemodialysis Thursday/Thursday/Thursday with brachiocephalic fistula as above January 2025 Diabetes. Glucose control per medicine team PLAN: --IV vancomycin, cefazolin --check/review labs cultures and scans --Partial history per nursing staff --Discussed with microbiology --Discussed with Dr. Araiza/multidisciplinary team/nursing regarding complex set of issues, importance of antimicrobial stewardship etc. --Highly complex set of issues with high risk for further serious morbidity and other serious sequela --Monitor IV and IV antibiotic with risk for systemic complication and potential drug interactions Disposition-- awaiting clinical improvement Anticipated antibiotic plan--I anticipate IV antibiotics after each dialysis but final agent depends on culture data/clinical course This visit included the following complex service elements: Complex medical decision-making associated with antimicrobial prescribing. Managed infection prevention and treatment protocol associated with transitions of care for this complex patient. Counseled patients, family members, and/or caregivers regarding antimicrobial stewardship and resistance for the patient. Counseled patients, family members and/or caregivers regarding infection prevention. Communicated with the clinical microbiology lab. Edgar Hopper MD 02/10/2025 * Nataliya Cain MD - 02/09/2025 1:31 PM EDTAssociated Order(s): Inpatient consult to Nephrology Images from the original note were not included. Inpatient consult to Nephrology Consult performed by: Nataliya Cain MD Consult ordered by: Briana Araiza MD History of Present Illness: Carla Burkett is a 54 y.o. female well-known to my practice with history of end-stage renaldisease on chronic hemodialysis on a Thursday, and Thursday schedule who had recently AV fistula creation. It was noted that the surgical site was slightly inflamed last week and the patient was started on p.o. doxycycline. A scab was formed apparently however the patient had picked on the scab leading to what appears to be infected ulcer at the vascular access site. [facility] for further evaluation by vascular surgery and possible need for IV antibiotic initiation. Nephrology consult was requested by the primary team. Past Medical History She has a past medical history of C. difficile colitis, Cardiac arrest ([facility]) (07/19/2024), CHF (congestive heart failure) ([facility]) (01/19/2024), Chronic kidney disease, Coronary artery disease-heart stents x 2 2019, CTS (carpal tunnel syndrome)left, Depression, Diabetes mellitus ([facility]), ESRD (end stagerenal disease) on dialysis (HCC)//thu, Hyperlipidemia, unspecified (10/06/2022), Hypertension, Kidney failure, Obstructive sleep apnea, Osteomyelitis (HCC) resolved, Peripheral vascular disease due to secondary diabetes (HCC), Post- menopausal, and Wound of right foot wrapped. She has no past medical history of AAA (abdominal aortic aneurysm) ([facility]), Asthma, Atrial fibrillation (HCC), Cancer (HCC), Carotid artery occlusion, Clotting disorder (HCC), Heart murmur, Stroke ([facility]), Syncope and collapse, or Thyroid disease. Past Surgical History She has a past surgical history that includes Knee arthroscopy (Right); Carpal tunnel release (Right); Tonsillectomy; Gallbladder surgery; heart stents; Below knee leg amputation (Left); AMPUTATION,TOE (Right); INSERTION,DIALYSIS CATHETER; CREATION,PERICARDIAL WINDOW (N/A, 12/19/2022); melvi left hip; TRANSPOSITION,VEIN (Left, 04/20/2023); ORIF,FEMUR (Left, 08/10/2023); and CREATION,A-V FISTULA (Right, 01/10/2025). Family History: Her family history is not on file. Allergies: Sulfa (Sulfonamide Antibiotics) and Tylox [Oxycodone-Acetaminophen] Home Medications: Prior to Admission medications Medication Sig Start Date End Date Taking? Authorizing Provider acetaminophen (TYLENOL) 500 MG tablet Take 1 tablet (500 mg total) by mouth every 6 (six) hours as needed for pain. Yes Historical Provider, amLODIPine (NORVASC) 10 MG tablet Take 1 tablet (10 mg total) by mouth daily. 12/12/22 Yes Historical Provider, aspirin 81 MG EC tablet Take 1 tablet (81 mg total) by mouth daily. 12/01/22 Yes Historical Provider, atorvastatin (LIPITOR) 40 MG tablet Take 1 tablet (40 mg total) by mouth nightly. 12/03/22 Yes Historical Provider, baclofen (LIORESAL) 5 mg tab Take 1 tablet (5 mg total) by mouth every night as needed for muscle spasms. Yes Historical Provider, calcitonin, salmon, (MIACALCIN) 200 unit/actuation nasal spray Adminster 1 spray into one nostril daily. Yes Historical Provider, calcium carbonate 600mg (Caltrate) 600 mg calcium (1,500 mg) tab Take 1 tablet (1,500 mg total) by mouth daily. 04/10/24 Yes Historical Provider, carvediloL (COREG) 12.5 MG tablet Take 1 tablet (12.5 mg total) by mouth 2 (two) times daily. 12/06/22 Yes Historical Provider, diphenhydrAMINE (BENADRYL) 25 mg tablet Take 1 tablet (25 mg total) by mouth 3 (three) times daily as needed for itching. Yes Historical Provider, famotidine (PEPCID) 20 MG tablet Take 1 tablet (20 mg total) by mouth 2 (two) times daily. Yes Historical Provider, fexofenadine (DANIELLE) 180 MG tablet Take 1 tablet (180 mg total) by mouth daily. Yes Historical Provider, gabapentin (NEURONTIN) 300 MG capsule Take 1 capsule (300 mg total) by mouth nightly. 02/04/24 Yes Historical Provider, insulin aspart U-100 (NovoLOG) 100 unit/mL (3 mL) inpn Inject under the skin 3 (three) times daily before meals Sliding scale. Yes Historical Provider, isosorbide mononitrate (IMDUR) 30 MG 24 hr tablet Take 1 tablet (30 mg total) by mouth daily. Yes Historical Provider, metoclopramide (REGLAN) 10 MG tablet Take 1 tablet (10 mg total) by mouth 3 (three) times daily before meals. Yes Historical Provider, ondansetron (ZOFRAN) 4 MG tablet Take 1 tablet (4 mg total) by mouth every 8 (eight) hours as needed for nausea. Yes Historical Provider, prasugreL (EFFIENT) 10 mg tab tablet Take 1 tablet (10 mg total) by mouth daily. 02/10/24 Yes Historical Provider, pseudoephedrine (Sudogest) 60 MG tablet Take 1 tablet (60 mg total) by mouth every 6 (six) hours asneeded for congestion. Yes Historical Provider, sevelamer (RENAGEL) 800 MG tablet Take 1 tablet (800 mg total) by mouth 3 (three) times daily with meals. Yes Historical Provider, venlafaxine (Effexor XR) 37.5 MG 24 hr capsule Take 1 capsule (37.5 mg total) by mouth daily. Yes Historical Provider, epoetin gia (Procrit) 20,000 unit/2 mL soln injection Inject 2 mLs (20,000 Units total) under the skin once a week. Historical Provider, polyethylene glycol (MIRALAX) 17 gram/dose powder Take 17 g by mouth daily. Historical Provider, Current Medications: Current Facility-Administered Medications: acetaminophen (TYLENOL) tablet 500 mg, 500 mg, oral, Q6H PRN, Briana Araiza MD amLODIPine (NORVASC) tablet 10 mg, 10 mg, oral, Daily, Olegario Varghese PA-C, 10 mg at 02/09/25 0840 aspirin EC tablet 81 mg, 81 mg, oral, Daily, Olegario Varghese PA-C, 81 mg at 02/09/25 0840 atorvastatin (LIPITOR) tablet 40 mg, 40 mg, oral, Every Night, Olegario Varghese PA-C, 40 mg at 02/08/25 2217 baclofen (LIORESAL) tablet 5 mg, 5 mg, oral, Every Night PRN, Briana Araiza MD, 5 mg at 02/09/25 1247 bisacodyL (DULCOLAX) EC tablet 10 mg, 10 mg, oral, Daily PRN OR bisacodyL (DULCOLAX) suppository 10 mg, 10 mg, rectal, Daily PRN, Olegario Varghese PA-C carvediloL (COREG) tablet 12.5 mg, 12.5 mg, oral, BID, Olegario Varghese PA-C, 12.5 mg at 02/09/25 0840 ceFAZolin (ANCEF) 1 g in sodium chloride 0.9 % (NS) 50 mL BLANCA IVPB, 1 g, intravenous, Q8H, Briana Araiza MD dextrose 50% (D50W) injection 25 g, 25 g, intravenous, Q15 Min PRN, Olegario Varghese PA-C gabapentin (NEURONTIN) capsule 300 mg, 300 mg, oral, Every Night, Olegario Varghese PA-C, 300 mg at 02/08/25 2217 glucagon injection 1 mg, 1 mg, intraMUSCULAR, Q15 Min PRN, Olegario Varghese PA-C glucose chew tab 16 g, 16 g, oral, Q15 Min PRN, Olegario Varghese PA-C hydrALAZINE (APRESOLINE) injection 10 mg, 10 mg, intravenous, Q6H PRN, Olegario Varghese PA-C insulin lispro (HUMALOG, ADMELOG) injection 0-6 Units, 0-6 Units, subcutaneous, 4x Daily AC, SHERLY Young, 2 Units at 02/09/25 0840 isosorbide mononitrate (IMDUR) 24 hr tablet 30 mg, 30 mg, oral, Daily, Olegario Varghese PA-C, 30 mg at 02/09/25 0840 melatonin tablet 3 mg, 3 mg, oral, Every Night PRN, Olegario Varghese PA-C ondansetron (ZOFRAN-ODT) disintegrating tablet 4 mg, 4 mg, oral, Q8H PRN OR ondansetron (ZOFRAN) injection 4 mg, 4 mg, intravenous, Q8H PRN, Olegario Varghese PA-C polyethylene glycol (GLYCOLAX) packet 17 g, 17 g, oral, Daily PRN, Olegario Varghese PA-C prasugreL HCl (EFFIENT) tablet 10 mg, 10 mg, oral, Daily, Olegario Varghese PA-C sevelamer (RENAGEL) tablet 800 mg, 800 mg, oral, TID with meals, Olegario Varghese PA-C, 800 mg at 02/09/25 1248 vancomycin (VANCOCIN) IV actively being dosed by Pharmacy, 1 each, intravenous, See Admin Instructions, Olegario Varghese PA-C venlafaxine XR (EFFEXOR-XR) 24 hr capsule 37.5 mg, 37.5 mg, oral, Daily, Olegario Varghese PA-C, 37.5mg at 02/09/25 0840 Review of Systems Constitutional: Negative. HENT: Negative. Eyes: Negative. Respiratory: Negative. Cardiovascular: Negative. Gastrointestinal: Negative. Endocrine: Negative. Genitourinary: Negative. Musculoskeletal: Negative. Skin: Positive for wound (right AVF site with infected ulcer). Allergic/Immunologic: Negative. Neurological: Negative. Hematological: Negative. Psychiatric/Behavioral: Negative. All other systems reviewed and are negative. Vitals Blood pressure 130/69, pulse 86, temperature 98.5 ??F (36.9 ??C), temperature source Oral, resp. rate 20, height 1.676 m (5' 6 ), weight 121.6 kg (268 lb), SpO2 93%. Physical Exam Vitals and nursing note reviewed. [...] Palpations: Abdomen is soft. Musculoskeletal: General: Deformity (left BKA) present. Normal range of motion. Cervical back: Normal range of motion and neck supple. Skin: General: Skin is warm and dry. Findings: Lesion (right AVF site with infected ulcer) present. Neurological: General: No focal deficit present. Mental Status: She is alert and oriented to person, place, and time. Mental status is at baseline. Psychiatric: Mood and Affect: Mood normal. Behavior: Behavior normal. Thought Content: Thought content normal. Judgment: Judgment normal. Labs: Recent Results (from the past 72 hours) CBC with Auto Diff Collection Time: 02/08/25 4:00 PM Result Value Ref Range WBC 8.9 4.0 - 10.0 K/??L RBC 3.28 (L) 3.93 - 5.22 M/??L Hemoglobin 10.7 (L) 11.2 - 15.7 GM/DL Hematocrit 32.0 (L) 34.1 - 44.9 % MCV 98 (H) 79 - 95 fL MCH 32.6 (H) 25.6 - 32.2 pg MCHC 33.4 32.2 - 35.5 GM/DL RDW 13.2 11.7 - 14.4 % Platelets 320 140 - 375 K/CU MM MPV 9.6 9.4 - 12.3 fL % Neutros 65 34 - 71 % % Lymphs 25 19 - 52 % % Monos 6 5 - 13 % % Eos 2 1 - 6 % % Baso 1 0 - 1 % NRBC Absolute <0.01 0 - 0.012 K/ul # Neutros 5.86 1.56 - 6.13 K/??L # Lymphs 2.24 1.18 - 3.74 K/??L # Monos 0.57 0.24 - 0.86 K/??L # Eos 0.14 0.04 - 0.36 K/??L # Baso 0.05 0.01 - 0.08 K/??L Immature Granulocytes-Relative 0.90 (H) 0.01 - 0.43 % # IG 0.08 (H) 0.00 - 0.03 K/uL Basic Metabolic Panel Collection Time: 02/08/25 4:00 PM Result Value Ref Range Sodium 142 136 - 145 meq/L Potassium 3.8 3.4 - 5.1 meq/L CO2 30 (H) 22 - 29 meq/L Chloride 99 98 - 112 meq/L Glucose 155 (H) 74 - 100 mg/dL BUN 21.5 (H) 9.8 - 20.1 mg/dL Creatinine 3.62 (H) 0.57 - 1.11 mg/dL BUN/Creatinine 6 (L) 8 - 20 Calcium 9.0 8.4 - 10.2 mg/dL Anion Gap 17 (H) 4 - 12 eGFR (mL/min/1.73m2) 14 (L) >=60 mL/min/1.73m2 Osmolality Calc 289.4 mOsm/kg Lactic Acid with reflex (SJ) Collection Time: 02/08/25 4:00 PM Result Value Ref Range Lactic Acid Level (mmol/L) 1.7 0.5 - 2.2 mmol/L Sedimentation rate Collection Time: 02/08/25 4:00 PM Result Value Ref Range Sed Rate 35 (H) 0 - 30 mm/HR C-Reactive Protein Collection Time: 02/08/25 4:00 PM Result Value Ref Range CRP 18.6 (H) 0.0 - 5.0 mg/L Blue Top Extra Tubes Collection Time: 02/08/25 4:17 PM Result Value Ref Range HOLD SPECIMEN (SJ - BKR) Hold for add-ons. PST Top Extra Tubes Collection Time: 02/08/25 4:17 PM Result Value Ref Range HOLD SPECIMEN (SJ - BKR) Hold for add-ons. Glucose, Nova Meter Collection Time: 02/08/25 10:58 PM Result Value Ref Range POC-GLUCOSE 131 (H) 70 - 110 mg/dL Mechanical Test Engineer [id number] Wound Culture + Gram Stain Collection Time: 02/08/25 11:19 PM Specimen: Arm, Right Upper; Wound Result Value Ref Range Result Too young to evaluate - will reincubate Gram Stain Result No cells seen Gram Stain Result Few gram positive cocci in pairs and clusters Gram Stain Result Few gram positive cocci CBC with automated diff Collection Time: 02/09/25 4:41 AM Result Value Ref Range WBC 8.4 4.0 - 10.0 K/??L RBC 3.46 (L) 3.93 - 5.22 M/??L Hemoglobin 11.0 (L) 11.2 - 15.7 GM/DL Hematocrit 34.5 34.1 - 44.9 % MCV 100 (H) 79 - 95 fL MCH 31.8 25.6 - 32.2 pg MCHC 31.9 (L) 32.2 - 35.5 GM/DL RDW 13.4 11.7 - 14.4 % Platelets 313 140 - 375 K/CU MM MPV 9.7 9.4 - 12.3 fL % Neutros 59 34 - 71 % % Lymphs 30 19 - 52 % % Monos 7 5 - 13 % % Eos 2 1 - 6 % % Baso 1 0 - 1 % NRBC Absolute <0.01 0 - 0.012 K/ul # Neutros 4.97 1.56 - 6.13 K/??L # Lymphs 2.54 1.18 - 3.74 K/??L # Monos 0.62 0.24 - 0.86 K/??L # Eos 0.16 0.04 - 0.36 K/??L # Baso 0.05 0.01 - 0.08 K/??L Immature Granulocytes-Relative 1.10 (H) 0.01 - 0.43 % # IG 0.09 (H) 0.00 - 0.03 K/uL Comprehensive metabolic panel Collection Time: 02/09/25 4:41 AM Result Value Ref Range Sodium 142 136 - 145 meq/L Potassium 4.0 3.4 - 5.1 meq/L Chloride 100 98 - 112 meq/L CO2 31 (H) 22 - 29 meq/L Calcium 9.0 8.4 - 10.2 mg/dL Glucose 197 (H) 74 - 100 mg/dL BUN 29.8 (H) 9.8 - 20.1 mg/dL Creatinine 4.72 (H) 0.57 - 1.11 mg/dL BUN/Creatinine 6 (L) 8 - 20 eGFR (mL/min/1.73m2) 10 (L) >=60 mL/min/1.73m2 Albumin 3.0 (L) 3.5 - 5.0 g/dL Alkaline Phosphatase 175 (H) 40 - 150 U/L ALT 35 (H) <=34 U/L AST 28 11 - 34 U/L Total Bilirubin 0.4 0.2 - 1.2 mg/dL Protein, Total 6.6 6.4 - 8.3 g/dL Globulin 3.6 2.5 - 4.1 g/dL Anion Gap 15 (H) 4 - 12 A/G Ratio 0.8 0.7 - 1.9 Osmolality Calc 294.7 mOsm/kg Glucose, Nova Meter Collection Time: 02/09/25 7:32 AM Result Value Ref Range POC-GLUCOSE 181 (H) 70 - 110 mg/dL Mechanical Test Engineer [id number] Glucose, Nova Meter Collection Time: 02/09/25 11:16 AM Result Value Ref Range POC-GLUCOSE 154 (H) 70 - 110 mg/dL Mechanical Test Engineer [id number] Imaging: CT upper extremity without contrast right Result Date: 02/08/2025 CT RIGHT UPPER EXTREMITY, ATTENTION ELBOW REGION HISTORY: Pain, TECHNIQUE: Thin section axial CT with sagittal and coronal reconstructions. FINDINGS: No fracture or bone destruction is present. Thereis stranding which overlies the olecranon and posteromedial distal humerus which is suspicious for cellulitis. There is no gas in the soft tissues. There is stranding and soft tissue irregularity in the antecubital region which surrounds the basilic vein- antecubital vein junction. This is also in the region of the brachial artery. Given the presence of multiple surgical clips, it is not possible to differentiate chronic postoperative change from an acute inflammatory process particularly without the benefit of prior exams. No gas is seen in the soft tissues. Aside from the surgical clips, no foreign body is seen. 1. Abnormal soft tissue prominence with surrounding stranding in the antecubital region encasing the junction of the basilic and antecubital veins. Without the benefit of prior exams, it is not possible to distinguish whether this represents an acute inflammatory process or chronic postoperative change with scarring. 2. Edema and stranding along the posterior distal humerus and olecranon suggestive of superficial cellulitis. 3. No large volume abscess. No gas in the soft tissues. This study wasperformed using dose reduction techniques to achieve radiation exposure as low as reasonably achievable (ALARA). Images reviewed, interpreted, and dictated by Nirav Navarro MD CT ABDOMEN/PELVIS WITHOUT IV CONTRAST Standard Protocol [...] targeting Hb 10-11 g/dl. Continue her diabetic meds. Monitor renal function electrolytes and acid- base base status status closely. Avoidanceof nephrotoxic agents and renal dosing of meds. Suggest ID and Vascular consultation. Further management of other medical problems as per primary service and orthopedic surgery. Thank you for this interesting consultation and please do not hesitate to contact me with any question regarding this case. Electronically signed by Nataliya Cain MD 02/09/2025 at 1:31 PM EDT * Arabella Luu APRN - 02/09/2025 11:42 AM EDTAssociated Order(s): Inpatient consult to Vascular Surgery VASCULAR SURGERY CONSULT NOTE Inpatient consult to Vascular Surgery Consult performed by: Arabella Luu APRN Consult ordered by: Yuri Ocampo DO Reason for consult: surgical site infection History of Present Illness: Carla Burkett is a 54 y.o. female with past medical history of CHF, CAD, DM2, ESRD on HD, hypertension, hyperlipidemia, SHAYLA, PVD, obesity, etc., that presented to the ER for concerns of a possible wound infection with a recent fistula that was placed in her right upper extremity several weeks ago. She is end-stage renal disease on hemodialysis. She has been on doxycycline. She reports ported that she pulled a scab off of her site at dialysis clinic and was concerned, so they sent her to the ER for evaluation. She was able to complete her dialysis yesterday, as she has a Port-A-Cath in her left chest. She has not currently been using her fistula yet. Workup in the ER revealed hemoglobin 10.7, CO2 30, glucose 155, BUN/creatinine 21.5/3.62, anion gap 17, ESR 35, CRP 18.6. CT of her right upperextremity revealed abnormal soft tissue prominence with surrounding stranding in the antecubital region encasing the junction of the basilic and antecubital veins but unable to distinguish whether this represents an acute inflammatory process or chronic postop change with scarring. There was also ed sonia and stranding along the posterior distal humerus and olecranon suggestive of superficial cellulitis. She was admitted to the hospitalist service and started on IV antibiotics. Vascular surgery was consulted. Past Medical History She has a past medical history of C. difficile colitis, Cardiac arrest ([facility]) (07/19/2024), CHF (congestive heart failure) ([facility]) (01/19/2024), Chronic kidney disease, Coronary artery disease-heart stents x 2 2019, CTS (carpal tunnel syndrome)left, Depression, Diabetes mellitus ([facility]), ESRD (end stagerenal disease) on dialysis ([facility])//thu, Hyperlipidemia, unspecified (10/06/2022), Hypertension, Kidney failure, Obstructive sleep apnea, Osteomyelitis ([facility]) resolved, Peripheral vascular disease due to secondary diabetes ([facility]), Post- menopausal, and Wound of right foot wrapped. She has no past medical history of AAA (abdominal aortic aneurysm) ([facility]), Asthma, Atrial fibrillation ([facility]), Cancer ([facility]), Carotid artery occlusion, Clotting disorder ([facility]), Heart murmur, Stroke ([facility]), Syncope and collapse, or Thyroid disease. Past Surgical History She has a past surgical history that includes Knee arthroscopy (Right); Carpal tunnel release (Right); Tonsillectomy; Gallbladder surgery; heart stents; Below knee leg amputation (Left); AMPUTATION,TOE (Right); INSERTION,DIALYSIS CATHETER; CREATION,PERICARDIAL WINDOW (N/A, 12/19/2022); melvi left hip; TRANSPOSITION,VEIN (Left, 04/20/2023); ORIF,FEMUR (Left, 08/10/2023); and CREATION,A-V FISTULA (Right, 01/10/2025). Family History: She family history is not on file. Allergies: Sulfa (Sulfonamide Antibiotics) and Tylox [Oxycodone-Acetaminophen] Medications: Medications Prior to Admission Medication Sig Dispense Refill Last Dose/Taking acetaminophen (TYLENOL) 500 MG tablet Take 1 tablet (500 mg total) by mouth every 6 (six) hours as needed for pain. Past Week amLODIPine (NORVASC) 10 MG tablet Take 1 tablet (10 mg total) by mouth daily. 02/07/2025 aspirin 81 MG EC tablet Take 1 tablet (81 mg total) by mouth daily. 02/08/2025 atorvastatin (LIPITOR) 40 MG tablet Take 1 tablet (40 mg total) by mouth nightly. 02/08/2025 Evening baclofen (LIORESAL) 5 mg tab Take 1 tablet (5 mg total) by mouth every night as needed for muscle spasms. 02/08/2025 Morning calcitonin, salmon, (MIACALCIN) 200 unit/actuation nasal spray Adminster 1 spray into one nostril daily. 02/08/2025 Morning calcium carbonate 600mg (Caltrate) 600 mg calcium (1,500 mg) tab Take 1 tablet (1,500 mg total) by mouth daily. 02/08/2025 Morning carvediloL (COREG) 12.5 MG tablet Take 1 tablet (12.5 mg total) by mouth 2 (two) times daily. 02/08/2025 Morning diphenhydrAMINE (BENADRYL) 25 mg tablet Take 1 tablet (25 mg total) by mouth 3 (three) times daily as needed for itching. 02/08/2025 Morning famotidine (PEPCID) 20 MG tablet Take 1 tablet (20 mg total) by mouth 2 (two) times daily. 02/08/2025Morning fexofenadine (DANIELLE) 180 MG tablet Take 1 tablet (180 mg total) by mouth daily. Past Month gabapentin (NEURONTIN) 300 MG capsule Take 1 capsule (300 mg total) by mouth nightly. 02/08/2025 Evening insulin aspart U-100 (NovoLOG) 100 unit/mL (3 mL) inpn Inject under the skin 3 (three) times daily before meals Sliding scale. Past Week isosorbide mononitrate (IMDUR) 30 MG 24 hr tablet Take 1 tablet (30 mg total) by mouth daily. 02/08/2025 Morning metoclopramide (REGLAN) 10 MG tablet Take 1 tablet (10 mg total) by mouth 3 (three) times daily before meals. 02/08/2025 Morning ondansetron (ZOFRAN) 4 MG tablet Take 1 tablet (4 mg total) by mouth every 8 (eight) hours as needed for nausea. Past Month prasugreL (EFFIENT) 10 mg tab tablet Take 1 tablet (10 mg total) by mouth daily. 02/08/2025 Morning pseudoephedrine (Sudogest) 60 MG tablet Take 1 tablet (60 mg total) by mouth every 6 (six) hours asneeded for congestion. 02/08/2025 Morning sevelamer (RENAGEL) 800 MG tablet Take 1 tablet (800 mg total) by mouth 3 (three) times daily with meals. Past Month venlafaxine (Effexor XR) 37.5 MG 24 hr capsule Take 1 capsule (37.5 mg total) by mouth daily. 02/08/2025 Morning epoetin gia (Procrit) 20,000 unit/2 mL soln injection Inject 2 mLs (20,000 Units total) under the skin once a week. Unknown polyethylene glycol (MIRALAX) 17 gram/dose powder Take 17 g by mouth daily. Review of Systems Constitutional: Positive for activity change. Negative for fever. Left chest PAC HENT: Negative. Eyes: Negative. Respiratory: Negative for shortness of breath. Gastrointestinal: Negative. Endocrine: Negative. Genitourinary: Negative. Musculoskeletal: Positive for gait problem. Right TMA Right BKA Skin: Positive for color change and wound. Right brachiocephalic fistula site open with slough/surrounding erythema and drainage -- reports had blood culture at dialysis last Thursday that were negative but received IV vanc. Allergic/Immunologic: Negative. Neurological: Positive for weakness. Hematological: Negative. Psychiatric/Behavioral: Negative. Vitals Blood pressure 130/69, pulse 86, temperature 98.5 ??F (36.9 ??C), temperature source Oral, resp. rate 20, height 1.676 m (5' 6 ), weight 121.6 kg (268 lb), SpO2 93%. Physical Exam Gen: awake, white female; resting in bed HEENT: pink conjunctiva, MMM Lungs: normal respiratory effort on RA; left chest PAC Heart: reg s1, s2 Abd: soft, obese : no roberts Ext: motor intact; right TMA; left BKA; RUE brachiocephalic fistula site open with slough/drainage/surrounding erythema Skin: Exposed skin warm Neuro: follows simple commands Psych: appropriate mood Relevant Results: Results for orders placed or performed during the hospital encounter of 02/08/25 (from the past 24 hours) CBC with Auto Diff Status: Abnormal Collection Time: 02/08/25 4:00 PM Result Value Ref Range WBC 8.9 4.0 - 10.0 K/??L RBC 3.28 (L) 3.93 - 5.22 M/??L Hemoglobin 10.7 (L) 11.2 - 15.7 GM/DL Hematocrit 32.0 (L) 34.1 - 44.9 % MCV 98 (H) 79 - 95 fL MCH 32.6 (H) 25.6 - 32.2 pg MCHC 33.4 32.2 - 35.5 GM/DL RDW 13.2 11.7 - 14.4 % Platelets 320 140 - 375 K/CU MM MPV 9.6 9.4 - 12.3 fL % Neutros 65 34 - 71 % % Lymphs 25 19 - 52 % % Monos 6 5 - 13 % % Eos 2 1 - 6 % % Baso 1 0 - 1 % NRBC Absolute <0.01 0 - 0.012 K/ul # Neutros 5.86 1.56 - 6.13 K/??L # Lymphs 2.24 1.18 - 3.74 K/??L # Monos 0.57 0.24 - 0.86 K/??L # Eos 0.14 0.04 - 0.36 K/??L # Baso 0.05 0.01 - 0.08 K/??L Immature Granulocytes-Relative 0.90 (H) 0.01 - 0.43 % # IG 0.08 (H) 0.00 - 0.03 K/uL Basic Metabolic Panel Status: Abnormal Collection Time: 02/08/25 4:00 PM Result Value Ref Range Sodium 142 136 - 145 meq/L Potassium 3.8 3.4 - 5.1 meq/L CO2 30 (H) 22 - 29 meq/L Chloride 99 98 - 112 meq/L Glucose 155 (H) 74 - 100 mg/dL BUN 21.5 (H) 9.8 - 20.1 mg/dL Creatinine 3.62 (H) 0.57 - 1.11 mg/dL BUN/Creatinine 6 (L) 8 - 20 Calcium 9.0 8.4 - 10.2 mg/dL Anion Gap 17 (H) 4 - 12 eGFR (mL/min/1.73m2) 14 (L) >=60 mL/min/1.73m2 Osmolality Calc 289.4 mOsm/kg Lactic Acid with reflex (SJ) Status: Normal Collection Time: 02/08/25 4:00 PM Result Value Ref Range Lactic Acid Level (mmol/L) 1.7 0.5 - 2.2 mmol/L Sedimentation rate Status: Abnormal Collection Time: 02/08/25 4:00 PM Result Value Ref Range Sed Rate 35 (H) 0 - 30 mm/HR C-Reactive Protein Status: Abnormal Collection Time: 02/08/25 4:00 PM Result Value Ref Range CRP 18.6 (H) 0.0 - 5.0 mg/L Blue Top Extra Tubes Status: None Collection Time: 02/08/25 4:17 PM Result Value Ref Range HOLD SPECIMEN (SJ - BKR) Hold for add-ons. PST Top Extra Tubes Status: None Collection Time: 02/08/25 4:17 PM Result Value Ref Range HOLD SPECIMEN (SJ - BKR) Hold for add-ons. Glucose, Nova Meter Status: Abnormal Collection Time: 02/08/25 10:58 PM Result Value Ref Range POC-GLUCOSE 131 (H) 70 - 110 mg/dL Mechanical Test Engineer [id number] Wound Culture + Gram Stain Status: None (Preliminary result) Collection Time: 02/08/25 11:19 PM Specimen: Arm, Right Upper; Wound Result Value Ref Range Result Too young to evaluate - will reincubate Gram Stain Result No cells seen Gram Stain Result Few gram positive cocci in pairs and clusters Gram Stain Result Few gram positive cocci CBC with automated diff Status: Abnormal Collection Time: 02/09/25 4:41 AM Result Value Ref Range WBC 8.4 4.0 - 10.0 K/??L RBC 3.46 (L) 3.93 - 5.22 M/??L Hemoglobin 11.0 (L) 11.2 - 15.7 GM/DL Hematocrit 34.5 34.1 - 44.9 % MCV 100 (H) 79 - 95 fL MCH 31.8 25.6 - 32.2 pg MCHC 31.9 (L) 32.2 - 35.5 GM/DL RDW 13.4 11.7 - 14.4 % Platelets 313 140 - 375 K/CU MM MPV 9.7 9.4 - 12.3 fL % Neutros 59 34 - 71 % % Lymphs 30 19 - 52 % % Monos 7 5 - 13 % % Eos 2 1 - 6 % % Baso 1 0 - 1 % NRBC Absolute <0.01 0 - 0.012 K/ul # Neutros 4.97 1.56 - 6.13 K/??L # Lymphs 2.54 1.18 - 3.74 K/??L # Monos 0.62 0.24 - 0.86 K/??L # Eos 0.16 0.04 - 0.36 K/??L # Baso 0.05 0.01 - 0.08 K/??L Immature Granulocytes-Relative 1.10 (H) 0.01 - 0.43 % # IG 0.09 (H) 0.00 - 0.03 K/uL Comprehensive metabolic panel Status: Abnormal Collection Time: 02/09/25 4:41 AM Result Value Ref Range Sodium 142 136 - 145 meq/L Potassium 4.0 3.4 - 5.1 meq/L Chloride 100 98 - 112 meq/L CO2 31 (H) 22 - 29 meq/L Calcium 9.0 8.4 - 10.2 mg/dL Glucose 197 (H) 74 - 100 mg/dL BUN 29.8 (H) 9.8 - 20.1 mg/dL Creatinine 4.72 (H) 0.57 - 1.11 mg/dL BUN/Creatinine 6 (L) 8 - 20 eGFR (mL/min/1.73m2) 10 (L) >=60 mL/min/1.73m2 Albumin 3.0 (L) 3.5 - 5.0 g/dL Alkaline Phosphatase 175 (H) 40 - 150 U/L ALT 35 (H) <=34 U/L AST 28 11 - 34 U/L Total Bilirubin 0.4 0.2 - 1.2 mg/dL Protein, Total 6.6 6.4 - 8.3 g/dL Globulin 3.6 2.5 - 4.1 g/dL Anion Gap 15 (H) 4 - 12 A/G Ratio 0.8 0.7 - 1.9 Osmolality Calc 294.7 mOsm/kg Glucose, Nova Meter Status: Abnormal Collection Time: 02/09/25 7:32 AM Result Value Ref Range POC-GLUCOSE 181 (H) 70 - 110 mg/dL Mechanical Test Engineer [id number] Glucose, Nova Meter Status: Abnormal Collection Time: 02/09/25 11:16 AM Result Value Ref Range POC-GLUCOSE 154 (H) 70 - 110 mg/dL Mechanical Test Engineer [id number] Radiology Results (last 7 days) Procedure Component Value Units Date/Time Ultrasound hemodialysis access [[id number]] Resulted: 02/09/25 1043 Order Status: No result Updated: 02/09/251043 Ultrasound upper extremity arteries left [[id number]] Order Status: Canceled CT upper extremity without contrast right [[id number]] Collected: 02/08/25 1743 Order Status: Completed Updated: 02/08/25 180 Narrative: CT RIGHT UPPER EXTREMITY, ATTENTION ELBOW REGION HISTORY: Pain, TECHNIQUE: Thin section axial CT with sagittal and coronal reconstructions. FINDINGS: No fracture or bone destruction is present. There is stranding which overlies the olecranon and posteromedial distal humerus which is suspicious for cellulitis. There is no gas in the soft tissues. There is stranding and soft tissue irregularity in the antecubital region which surrounds the basilic vein-antecubital vein junction. This is also in the region of the brachial artery. Given the presence of multiple surgical clips, it is not possible to differentiate chronic postoperative change from an acute inflammatory process particularly without the benefit of prior exams. No gas is seen in the soft tissues. Aside from the surgical clips, no foreign body is seen. Impression: 1. Abnormal soft tissue prominence with surrounding stranding in the antecubital region encasing the junction of the basilic and antecubital veins. Without the benefit of prior exams, it is not possible to distinguish whether this represents an acute inflammatory process or chronic postoperative change with scarring. 2. Edema and stranding along the posterior distal humerus and olecranon suggestive of superficial cellulitis. 3. No large volume abscess. No gas in the soft tissues. This study was performed using dose reduction techniques to achieve radiation exposure as low as reasonably achievable (ALARA). Images reviewed, interpreted, and dictated by Nirav Navarro MD Assessment & Plan - Suspected right upper extremity fistula site infection - s/p RIGHT brachiocephalic arteriovenous fistula creation on 01/10/[address] Sloan - Right upper extremity cellulitis - Elevated CRP - ESRD on HD - Hypertension - Hyperlipidemia - Coronary artery disease - Diabetes mellitus type 2 with neuropathy - Congestive heart failure - Anxiety - Depression - Morbid obesity Plan: - nephrology following for HD management - ID consult for antx guidance - glycemic control - continue ASA - add heparin SQ Q8H DVT ppx - wound care consult - ultrasound HD access pending - blood & wound cultures pending - please call with any further vascular concerns Signed: Electronically signed by Arabella Luu APRN 02/09/25 11:42 AM EDT Cosigned by Noman Byrne DO at 02/09/2025 5:22 PM EDT Associated attestation - Noman Byrne DO - 02/09/2025 4:22 PM CDT I saw this patient. reviewed the notes, assessments, and/or procedures performed by Arabella Luu APRN, I concur with her/his documentation of Carla Burkett. Patient with a recent fistula creation and slight dehiscence of the surgical site with concern for cellulitis of the arm. Recommend IV antibiotics that should clear up any sort of infection a ultrasound was performed of the access site which shows a patent fistula. Patient should follow-up as scheduled with Dr. Sloan prior to using the access site. documented in this encounter ED Notes * Yuri Ocampo DO - 02/08/2025 6:13 PM EDT Subjective Chief Complaint: Vascular Access Problem 54-year-old female patient presents emerged from today for evaluation of possible wound infection. Patient has history of end-stage renal disease and is on hemodialysis. She had a fistula that was placed in her right arm several weeks ago. She states that she did have some possible infection and has been on doxycycline. She states that she pulled a scab off of her site and dialysis clinic was concerned and sent her here for evaluation. She was able to complete her dialysis today as she has a Port-A-Cath in the left chest. She does not have use of her fistula as of yet. She denies any fevers or chills or trauma. History provided by: Patient american sign language interpreter used: No Patient History Past Medical History: Diagnosis Date C. difficile colitis Cardiac arrest ([facility]) 07/19/2024 CHF (congestive heart failure) ([facility]) 01/19/2024 Chronic kidney disease Coronary artery disease-heart stents x 2 2019 CTS (carpal tunnel syndrome)left Depression Diabetes mellitus ([facility]) ESRD (end stage renal disease) on dialysis ([facility]) Hyperlipidemia, unspecified 10/06/2022 Hypertension Kidney failure Obstructive sleep apnea Osteomyelitis ([facility]) resolved Peripheral vascular disease due to secondary diabetes ([facility]) Post-menopausal Wound of right foot wrapped Past Surgical History: Procedure Laterality Date AMPUTATION,TOE Right BELOW KNEE LEG AMPUTATION Left toes first then debridement CARPAL TUNNEL RELEASE Right CREATION,A-V FISTULA Right 01/10/2025 Procedure: LEFT IJ tunneled catheter exchanged RIGHT brachiocephalic arteriovenous fistula creation; Surgeon: Baljinder Sloan MD; Location: [facility]; Service: Vascular Surgery; Laterality: Right; CREATION,PERICARDIAL WINDOW N/A 12/19/2022 Procedure: CREATION, PERICARDIAL WINDOW; Surgeon: Bogdan Hernandez IV, MD; Location: [facility] OR; Service: CV Surgery; Laterality: N/A; AO#3, AVAIL TF, 3HR(A) GALLBLADDER SURGERY heart stents INSERTION,DIALYSIS CATHETER KNEE ARTHROSCOPY Right ORIF,FEMUR Left 08/10/2023 Procedure: ORIF LT FEMUR); Surgeon: Otf Birmingham MD; Location: [facility] OR; Service: OrthopaedicSurgery; Laterality: Left; AO# 4, AVAIL TF melvi left hip TONSILLECTOMY TRANSPOSITION,VEIN Left 04/20/2023 Procedure: (LT UPPER EXTREMITY AV FISTULA); Surgeon: Baljinder Sloan MD; Location: [facility] OR; Service: Vascular; Laterality: Left; IN 0600, 1 HR (R) No family history on file. Social History Tobacco Use Smoking status: Some Days Types: Cigarettes Smokeless tobacco: Former Tobacco comments: Vap daily Substance Use Topics Alcohol use: Not Currently I reviewed the HPI, ROS and PFSH documentation recorded by others in the medical record and supplemented my note as needed. Review of Systems Review of Systems All other systems reviewed and are negative. Physical Exam ED Triage Vitals [02/08/25 1558] Encounter Vitals Group BP 128/60 Systolic BP Percentile Diastolic BP Percentile Pulse 89 Resp 18 Temp 98 ??F (36.7 ??C) Temp src Oral SpO2 98 % Weight 121.6 kg (268 lb) Height 1.676 m (5' 6 ) Head Circumference Peak Flow Pain Score Pain Loc Pain Education Exclude from Growth Chart Physical Exam Vitals and nursing note reviewed. Constitutional: General: She is not in acute distress. Appearance: She is obese. She is not toxic-appearing. HENT: Head: Normocephalic and atraumatic. Mouth/Throat: Mouth: Mucous membranes are moist. Eyes: Extraocular Movements: Extraocular movements intact. Pupils: Pupils are equal, round, and reactive to light. Cardiovascular: Rate and Rhythm: Normal rate and regular rhythm. Pulmonary: Effort: Pulmonary effort is normal. Breath sounds: Normal breath sounds. Musculoskeletal: Comments: On evaluation of the patient's right upper extremity there is a large dehisced wound in the` volar aspect of the forearm. There is surrounding warmth and induration. There is mild purulent material noted in the wound bed. No active drainage. The right upper extremity is neurovascularly intact distally. Skin: General: Skin is warm and dry. Capillary Refill: Capillary refill takes less than 2 seconds. Neurological: General: No focal deficit present. Mental Status: She is alert and oriented to person, place, and time. Neurological Exam Mental Status Alert. Oriented to person, place, and time. Cranial Nerves CN III, IV, : Extraocular movements intact bilaterally. Pupils equal round and reactive to light bilaterally. Ortho Exam ED Course & MDM Medications - No data to display Results for orders placed or performed during the hospital encounter of 02/08/25 CBC with Auto Diff Result Value Ref Range WBC 8.9 4.0 - 10.0 K/??L RBC 3.28 (L) 3.93 - 5.22 M/??L Hemoglobin 10.7 (L) 11.2 - 15.7 GM/DL Hematocrit 32.0 (L) 34.1 - 44.9 % MCV 98 (H) 79 - 95 fL MCH 32.6 (H) 25.6 - 32.2 pg MCHC 33.4 32.2 - 35.5 GM/DL RDW 13.2 11.7 - 14.4 % Platelets 320 140 - 375 K/CU MM MPV 9.6 9.4 - 12.3 fL % Neutros 65 34 - 71 % % Lymphs 25 19 - 52 % % Monos 6 5 - 13 % % Eos 2 1 - 6 % % Baso 1 0 - 1 % NRBC Absolute <0.01 0 - 0.012 K/ul # Neutros 5.86 1.56 - 6.13 K/??L # Lymphs 2.24 1.18 - 3.74 K/??L # Monos 0.57 0.24 - 0.86 K/??L # Eos 0.14 0.04 - 0.36 K/??L # Baso 0.05 0.01 - 0.08 K/??L Immature Granulocytes-Relative 0.90 (H) 0.01 - 0.43 % # IG 0.08 (H) 0.00 - 0.03 K/uL Basic Metabolic Panel Result Value Ref Range Sodium 142 136 - 145 meq/L Potassium 3.8 3.4 - 5.1 meq/L CO2 30 (H) 22 - 29 meq/L Chloride 99 98 - 112 meq/L Glucose 155 (H) 74 - 100 mg/dL BUN 21.5 (H) 9.8 - 20.1 mg/dL Creatinine 3.62 (H) 0.57 - 1.11 mg/dL BUN/Creatinine 6 (L) 8 - 20 Calcium 9.0 8.4 - 10.2 mg/dL Anion Gap 17 (H) 4 - 12 eGFR (mL/min/1.73m2) 14 (L) >=60 mL/min/1.73m2 Osmolality Calc 289.4 mOsm/kg Lactic Acid with reflex (SJ) Result Value Ref Range Lactic Acid Level (mmol/L) 1.7 0.5 - 2.2 mmol/L Sedimentation rate Result Value Ref Range Sed Rate 35 (H) 0 - 30 mm/HR C-Reactive Protein Result Value Ref Range CRP 18.6 (H) 0.0 - 5.0 mg/L Blue Top Extra Tubes Result Value Ref Range HOLD SPECIMEN (SJ - BKR) Hold for add-ons. PST Top Extra Tubes Result Value Ref Range HOLD SPECIMEN (SJ - BKR) Hold for add-ons. CT upper extremity without contrast right Final Result 1. Abnormal soft tissue prominence with surrounding stranding in the antecubital region encasing the junction of the basilic and antecubital veins. Without the benefit of prior exams, it is not possible to distinguish whether this represents an acute inflammatory process or chronic postoperative change with scarring. 2. Edema and stranding along the posterior distal humerus and olecranon suggestive of superficial cellulitis. 3. No large volume abscess. No gas in the soft tissues. This study was performed using dose reduction techniques to achieve radiation exposure as low as reasonably achievable (ALARA). Images reviewed, interpreted, and dictated by Nirav Navarro MD Ultrasound upper extremity arteries left (Results Pending) ED Course as of 02/08/251824Feb 08, [id number] CT scan of the left upper extremity reviewed by myself Based on my interpretation no obvious large fluid collection or gas formation [HIGINIO] [address] Byrne, vascular surgeon on-call. Advises patient can be admitted medically withIV antibiotics and they will see in consult. [HIGINIO] [address] Melendrez, hospitalist [facility] who has agrred to accept the patient. [HIGINIO] ED Course User Index [HIGINIO] Yuri Ocampo DO Procedures Medical Decision Making Differential diagnosis includes abscess, cellulitis, wound dehiscence, hematoma Amount and/or Complexity of Data Reviewed External Data Reviewed: notes. Details: Reviewed hospital discharge summary from 01/14/2025 Labs: ordered. Decision-making details documented in ED Course. Radiology: ordered and independent interpretation performed. Decision-making details documented in ED Course. Risk Decision regarding hospitalization. Assessment & Plan Clinical Impression Diagnosis Comment Added By Time Added Surgical site infection Yuri Ocampo DO 02/08/2025 6:09 PM Disposition Admit [3] - 02/08/2025 6:25 PM New Prescriptions No medications on file Electronically Signed By Yuri Ocampo DO 02/08/251824 * Patricia Lehman RN - 02/08/2025 3:57 PM EDT Pt arrives by ems from dialysis clinic for a bleeding fistula with a possible infection per patient. * Laisha Greer RN - 02/08/2025 3:54 PM EDT Bed: ED27 Expected date: Expected time: Means of arrival: Comments: Ashely Greer RN 02/08/25 1554 documented in this encounter Miscellaneous Notes * Plan of Care - Yvonne Hawk RN - 02/13/2025 3:05 PM EDT Problem: Knowledge Deficit Goal: Patient/family/caregiver demonstrates understanding of disease process, treatment plan, medications, and discharge instructions Description: Complete learning assessment and assess knowledge base. Outcome: Progressing Problem: Potential for Falls Goal: Patient will remain free of falls Description: Assess and monitor vitals signs, neurological status including level of consciousness and orientation. Reassess fall risk per hospital policy.Ensure arm band on, uncluttered walking paths in room, adequate room lighting, call light and overbed table within reach, bed in low position, wheels locked, side rails up per policy, and non-skid footwear provided. Outcome: Progressing Problem: Pain Goal: Patient's pain/discomfort is manageable [...] and non-skid footwear provided. Outcome: Progressing Problem: Potential for Developing a Blood Clot Goal: Tissue perfusion is adequate - venous Description: Assess and monitor skin color and temperature, skin integrity, pulses, capillary refill, edema, pain in extremities, Homans' sign, labs (D- dimer), and diagnostic tests (ultrasound, CT scan, VQ scan). Monitor for signs and symptoms of deep vein thrombosis (swelling of calf/thigh, redness, pain, tenderness). Monitor for signs and symptoms of pulmonary embolism (dyspnea, tachypnea, tachycardia). Collaborate with interdisciplinary team and initiate plans and interventions as needed Outcome: Progressing Problem: Daily Care Goal: Daily care needs are met Description: Assess and monitor ability to perform self care and identify potential discharge needs. Outcome: Progressing Problem: Potential for Infection Goal: Remains infection free Description: Assess and monitor vital signs, skin (color, moisture, integrity, turgor), respiratorystatus, urinary and gastrointestinal status, and labs (WBC, cultures). Administer antibiotics and antipyretics as ordered. Ensure aseptic care of all intravenous lines, invasive tubes/drains and wounds. Monitor for signs and symptoms of infection (redness, warmth, discharge, increased body temperature). Wash hands properly before and after each patient care activity. Follow isolation guidelines per hospital protocol/policy. Collaborate with interdisciplinary team and initiate plan and interventions as ordered. Outcome: Progressing Problem: Psychosocial Needs Goal: Demonstrates ability to cope with hospitalization/illness Description: Assess and monitor patients ability to cope with his/her illness. Outcome: Progressing Goal: Collaborate with patient/family/caregiver to identify patient specific goals for this hospitalization Outcome: Progressing Problem: Anxiety Goal: Anxiety is at manageable level Description: Assess and monitor patient's anxiety level. Monitor for signs and symptoms of anxiety both physical and emotional (heart palpitations, chest pain, shortness of breath, headaches, nausea,feeling jumpy, restlessness, irritable, apprehensive). Collaborate with interdisciplinary team and initiate plan and interventions as ordered. Outcome: Progressing Problem: Inadequate Coping Goal: Demonstrates ability to cope effectively Description: Patient is able to verbalize feelings related to emotional state. Outcome: Progressing Goal: Verbalizes adaptive coping mechanisms Description: Able to verbalize adaptive coping mechanisms such as physical activity, distraction, and deep breathing exercises. Outcome: Progressing Goal: Verbalizes personal strengths Description: Spend time with the patient using empathy and active listening skills. Outcome: Progressing Problem: Progressive Mobility Goal: BMAT Level 1 - With full mechanical lifting assistance: Outcome: Progressing Goal: BMAT Level 2 - With 2-person and/or mechanical lifting assistance: Outcome: Progressing Goal: BMAT Level 3 - With 1 to 2-person and/or mechanical lifting assistance: Outcome: Progressing Goal: BMAT Level 4 - With 1-person assistance or mobility aid as needed (walker, cane, crutches): Outcome: Progressing Problem: Discharge Barriers Goal: Patient's discharge needs are met Description: Collaborate with interdisciplinary team and initiate plans and interventions as needed. Outcome: Progressing * Plan of Care - Yvonne Hawk RN - 02/12/2025 11:40 AM EDT Problem: Knowledge Deficit Goal: Patient/family/caregiver demonstrates understanding of disease process, treatment plan, medications, and discharge instructions Description: Complete learning assessment and assess knowledge base. Outcome: Progressing Problem: Potential for Falls Goal: Patient will remain free of falls Description: Assess and monitor vitals signs, neurological status including level of consciousness and orientation. Reassess fall risk per hospital policy.Ensure arm band on, uncluttered walking paths in room, adequate room lighting, call light and overbed table within reach, bed in low position, wheels locked, side rails up per policy, and non-skid footwear provided. Outcome: Progressing Problem: Pain Goal: Patient's pain/discomfort is manageable [...] and non-skid footwear provided. Outcome: Progressing Problem: Potential for Developing a Blood Clot Goal: Tissue perfusion is adequate - venous Description: Assess and monitor skin color and temperature, skin integrity, pulses, capillary refill, edema, pain in extremities, Homans' sign, labs (D- dimer), and diagnostic tests (ultrasound, CT scan, VQ scan). Monitor for signs and symptoms of deep vein thrombosis (swelling of calf/thigh, redness, pain, tenderness). Monitor for signs and symptoms of pulmonary embolism (dyspnea, tachypnea, tachycardia). Collaborate with interdisciplinary team and initiate plans and interventions as needed Outcome: Progressing Problem: Daily Care Goal: Daily care needs are met Description: Assess and monitor ability to perform self care and identify potential discharge needs. Outcome: Progressing Problem: Potential for Infection Goal: Remains infection free Description: Assess and monitor vital signs, skin (color, moisture, integrity, turgor), respiratorystatus, urinary and gastrointestinal status, and labs (WBC, cultures). Administer antibiotics and antipyretics as ordered. Ensure aseptic care of all intravenous lines, invasive tubes/drains and wounds. Monitor for signs and symptoms of infection (redness, warmth, discharge, increased body temperature). Wash hands properly before and after each patient care activity. Follow isolation guidelines per hospital protocol/policy. Collaborate with interdisciplinary team and initiate plan and interventions as ordered. Outcome: Progressing Problem: Psychosocial Needs Goal: Demonstrates ability to cope with hospitalization/illness Description: Assess and monitor patients ability to cope with his/her illness. Outcome: Progressing Goal: Collaborate with patient/family/caregiver to identify patient specific goals for this hospitalization Outcome: Progressing Problem: Anxiety Goal: Anxiety is at manageable level Description: Assess and monitor patient's anxiety level. Monitor for signs and symptoms of anxiety both physical and emotional (heart palpitations, chest pain, shortness of breath, headaches, nausea,feeling jumpy, restlessness, irritable, apprehensive). Collaborate with interdisciplinary team and initiate plan and interventions as ordered. Outcome: Progressing Problem: Inadequate Coping Goal: Demonstrates ability to cope effectively Description: Patient is able to verbalize feelings related to emotional state. Outcome: Progressing Goal: Verbalizes adaptive coping mechanisms Description: Able to verbalize adaptive coping mechanisms such as physical activity, distraction, and deep breathing exercises. Outcome: Progressing Goal: Verbalizes personal strengths Description: Spend time with the patient using empathy and active listening skills. Outcome: Progressing Problem: Progressive Mobility Goal: BMAT Level 1 - With full mechanical lifting assistance: Outcome: Progressing Goal: BMAT Level 2 - With 2-person and/or mechanical lifting assistance: Outcome: Progressing Goal: BMAT Level 3 - With 1 to 2-person and/or mechanical lifting assistance: Outcome: Progressing Goal: BMAT Level 4 - With 1-person assistance or mobility aid as needed (walker, cane, crutches): Outcome: Progressing Problem: Discharge Barriers Goal: Patient's discharge needs are met Description: Collaborate with interdisciplinary team and initiate plans and interventions as needed. Outcome: Progressing * Plan of Care - Curtis Gibbons RN - 02/12/2025 12:04 AM EDT Problem: Knowledge Deficit Goal: Patient/family/caregiver demonstrates understanding of disease process, treatment plan, medications, and discharge instructions Description: Complete learning assessment and assess knowledge base. Outcome: Progressing Problem: Potential for Falls Goal: Patient will remain free of falls Description: Assess and monitor vitals signs, neurological status including level of consciousness and orientation. Reassess fall risk per hospital policy.Ensure arm band on, uncluttered walking paths in room, adequate room lighting, call light and overbed table within reach, bed in low position, wheels locked, side rails up per policy, and non-skid footwear provided. Outcome: Progressing Problem: Pain Goal: Patient's pain/discomfort is manageable [...] and non-skid footwear provided. Outcome: Progressing Problem: Potential for Developing a Blood Clot Goal: Tissue perfusion is adequate - venous Description: Assess and monitor skin color and temperature, skin integrity, pulses, capillary refill, edema, pain in extremities, Homans' sign, labs (D- dimer), and diagnostic tests (ultrasound, CT scan, VQ scan). Monitor for signs and symptoms of deep vein thrombosis (swelling of calf/thigh, redness, pain, tenderness). Monitor for signs and symptoms of pulmonary embolism (dyspnea, tachypnea, tachycardia). Collaborate with interdisciplinary team and initiate plans and interventions as needed Outcome: Progressing Problem: Daily Care Goal: Daily care needs are met Description: Assess and monitor ability to perform self care and identify potential discharge needs. Outcome: Progressing Problem: Potential for Infection Goal: Remains infection free Description: Assess and monitor vital signs, skin (color, moisture, integrity, turgor), respiratorystatus, urinary and gastrointestinal status, and labs (WBC, cultures). Administer antibiotics and antipyretics as ordered. Ensure aseptic care of all intravenous lines, invasive tubes/drains and wounds. Monitor for signs and symptoms of infection (redness, warmth, discharge, increased body temperature). Wash hands properly before and after each patient care activity. Follow isolation guidelines per hospital protocol/policy. Collaborate with interdisciplinary team and initiate plan and interventions as ordered. Outcome: Progressing Problem: Psychosocial Needs Goal: Demonstrates ability to cope with hospitalization/illness Description: Assess and monitor patients ability to cope with his/her illness. Outcome: Progressing Goal: Collaborate with patient/family/caregiver to identify patient specific goals for this hospitalization Outcome: Progressing Problem: Anxiety Goal: Anxiety is at manageable level Description: Assess and monitor patient's anxiety level. Monitor for signs and symptoms of anxiety both physical and emotional (heart palpitations, chest pain, shortness of breath, headaches, nausea,feeling jumpy, restlessness, irritable, apprehensive). Collaborate with interdisciplinary team and initiate plan and interventions as ordered. Outcome: Progressing Problem: Inadequate Coping Goal: Demonstrates ability to cope effectively Description: Patient is able to verbalize feelings related to emotional state. Outcome: Progressing Goal: Verbalizes adaptive coping mechanisms Description: Able to verbalize adaptive coping mechanisms such as physical activity, distraction, and deep breathing exercises. Outcome: Progressing Goal: Verbalizes personal strengths Description: Spend time with the patient using empathy and active listening skills. Outcome: Progressing Problem: Progressive Mobility Goal: BMAT Level 1 - With full mechanical lifting assistance: Outcome: Progressing Goal: BMAT Level 2 - With 2-person and/or mechanical lifting assistance: Outcome: Progressing Goal: BMAT Level 3 - With 1 to 2-person and/or mechanical lifting assistance: Outcome: Progressing Goal: BMAT Level 4 - With 1-person assistance or mobility aid as needed (walker, cane, crutches): Outcome: Progressing Problem: Discharge Barriers Goal: Patient's discharge needs are met Description: Collaborate with interdisciplinary team and initiate plans and interventions as needed. Outcome: Progressing * Plan of Care - Curtis Gibbons RN - 02/11/2025 1:25 AM EDT Problem: Knowledge Deficit Goal: Patient/family/caregiver demonstrates understanding of disease process, treatment plan, medications, and discharge instructions Description: Complete learning assessment and assess knowledge base. Outcome: Progressing Problem: Potential for Falls Goal: Patient will remain free of falls Description: Assess and monitor vitals signs, neurological status including level of consciousness and orientation. Reassess fall risk per hospital policy.Ensure arm band on, uncluttered walking paths in room, adequate room lighting, call light and overbed table within reach, bed in low position, wheels locked, side rails up per policy, and non-skid footwear provided. Outcome: Progressing Problem: Pain Goal: Patient's pain/discomfort is manageable [...] and non-skid footwear provided. Outcome: Progressing Problem: Potential for Developing a Blood Clot Goal: Tissue perfusion is adequate - venous Description: Assess and monitor skin color and temperature, skin integrity, pulses, capillary refill, edema, pain in extremities, Homans' sign, labs (D- dimer), and diagnostic tests (ultrasound, CT scan, VQ scan). Monitor for signs and symptoms of deep vein thrombosis (swelling of calf/thigh, redness, pain, tenderness). Monitor for signs and symptoms of pulmonary embolism (dyspnea, tachypnea, tachycardia). Collaborate with interdisciplinary team and initiate plans and interventions as needed Outcome: Progressing Problem: Daily Care Goal: Daily care needs are met Description: Assess and monitor ability to perform self care and identify potential discharge needs. Outcome: Progressing Problem: Potential for Infection Goal: Remains infection free Description: Assess and monitor vital signs, skin (color, moisture, integrity, turgor), respiratorystatus, urinary and gastrointestinal status, and labs (WBC, cultures). Administer antibiotics and antipyretics as ordered. Ensure aseptic care of all intravenous lines, invasive tubes/drains and wounds. Monitor for signs and symptoms of infection (redness, warmth, discharge, increased body temperature). Wash hands properly before and after each patient care activity. Follow isolation guidelines per hospital protocol/policy. Collaborate with interdisciplinary team and initiate plan and interventions as ordered. Outcome: Progressing Problem: Psychosocial Needs Goal: Demonstrates ability to cope with hospitalization/illness Description: Assess and monitor patients ability to cope with his/her illness. Outcome: Progressing Goal: Collaborate with patient/family/caregiver to identify patient specific goals for this hospitalization Outcome: Progressing Problem: Anxiety Goal: Anxiety is at manageable level Description: Assess and monitor patient's anxiety level. Monitor for signs and symptoms of anxiety both physical and emotional (heart palpitations, chest pain, shortness of breath, headaches, nausea,feeling jumpy, restlessness, irritable, apprehensive). Collaborate with interdisciplinary team and initiate plan and interventions as ordered. Outcome: Progressing Problem: Inadequate Coping Goal: Demonstrates ability to cope effectively Description: Patient is able to verbalize feelings related to emotional state. Outcome: Progressing Goal: Verbalizes adaptive coping mechanisms Description: Able to verbalize adaptive coping mechanisms such as physical activity, distraction, and deep breathing exercises. Outcome: Progressing Goal: Verbalizes personal strengths Description: Spend time with the patient using empathy and active listening skills. Outcome: Progressing Problem: Progressive Mobility Goal: BMAT Level 1 - With full mechanical lifting assistance: Outcome: Progressing Goal: BMAT Level 2 - With 2-person and/or mechanical lifting assistance: Outcome: Progressing Goal: BMAT Level 3 - With 1 to 2-person and/or mechanical lifting assistance: Outcome: Progressing Goal: BMAT Level 4 - With 1-person assistance or mobility aid as needed (walker, cane, crutches): Outcome: Progressing Problem: Discharge Barriers Goal: Patient's discharge needs are met Description: Collaborate with interdisciplinary team and initiate plans and interventions as needed. Outcome: Progressing * Plan of Care - Fadia Erazo RN - 02/09/2025 9:54 PM EDT Problem: Knowledge Deficit Goal: Patient/family/caregiver demonstrates understanding of disease process, treatment plan, medications, and discharge instructions Description: Complete learning assessment and assess knowledge base. Outcome: Progressing Problem: Potential for Falls Goal: Patient will remain free of falls Description: Assess and monitor vitals signs, neurological status including level of consciousness and orientation. Reassess fall risk per hospital policy.Ensure arm band on, uncluttered walking paths in room, adequate room lighting, call light and overbed table within reach, bed in low position, wheels locked, side rails up per policy, and non-skid footwear provided. Outcome: Progressing Problem: Pain Goal: Patient's pain/discomfort is manageable [...] and non-skid footwear provided. Outcome: Progressing Problem: Potential for Developing a Blood Clot Goal: Tissue perfusion is adequate - venous Description: Assess and monitor skin color and temperature, skin integrity, pulses, capillary refill, edema, pain in extremities, Homans' sign, labs (D- dimer), and diagnostic tests (ultrasound, CT scan, VQ scan). Monitor for signs and symptoms of deep vein thrombosis (swelling of calf/thigh, redness, pain, tenderness). Monitor for signs and symptoms of pulmonary embolism (dyspnea, tachypnea, tachycardia). Collaborate with interdisciplinary team and initiate plans and interventions as needed Outcome: Progressing Problem: Daily Care Goal: Daily care needs are met Description: Assess and monitor ability to perform self care and identify potential discharge needs. Outcome: Progressing Problem: Potential for Infection Goal: Remains infection free Description: Assess and monitor vital signs, skin (color, moisture, integrity, turgor), respiratorystatus, urinary and gastrointestinal status, and labs (WBC, cultures). Administer antibiotics and antipyretics as ordered. Ensure aseptic care of all intravenous lines, invasive tubes/drains and wounds. Monitor for signs and symptoms of infection (redness, warmth, discharge, increased body temperature). Wash hands properly before and after each patient care activity. Follow isolation guidelines per hospital protocol/policy. Collaborate with interdisciplinary team and initiate plan and interventions as ordered. Outcome: Progressing Problem: Psychosocial Needs Goal: Demonstrates ability to cope with hospitalization/illness Description: Assess and monitor patients ability to cope with his/her illness. Outcome: Progressing Goal: Collaborate with patient/family/caregiver to identify patient specific goals for this hospitalization Outcome: Progressing Problem: Anxiety Goal: Anxiety is at manageable level Description: Assess and monitor patient's anxiety level. Monitor for signs and symptoms of anxiety both physical and emotional (heart palpitations, chest pain, shortness of breath, headaches, nausea,feeling jumpy, restlessness, irritable, apprehensive). Collaborate with interdisciplinary team and initiate plan and interventions as ordered. Outcome: Progressing Problem: Inadequate Coping Goal: Demonstrates ability to cope effectively Description: Patient is able to verbalize feelings related to emotional state. Outcome: Progressing Goal: Verbalizes adaptive coping mechanisms Description: Able to verbalize adaptive coping mechanisms such as physical activity, distraction, and deep breathing exercises. Outcome: Progressing Goal: Verbalizes personal strengths Description: Spend time with the patient using empathy and active listening skills. Outcome: Progressing Problem: Progressive Mobility Goal: BMAT Level 1 - With full mechanical lifting assistance: Outcome: Progressing Goal: BMAT Level 2 - With 2-person and/or mechanical lifting assistance: Outcome: Progressing Goal: BMAT Level 3 - With 1 to 2-person and/or mechanical lifting assistance: Outcome: Progressing Goal: BMAT Level 4 - With 1-person assistance or mobility aid as needed (walker, cane, crutches): Outcome: Progressing Problem: Discharge Barriers Goal: Patient's discharge needs are met Description: Collaborate with interdisciplinary team and initiate plans and interventions as needed. Outcome: Progressing * ACP (Advance Care Planning) - Chaplain David - 02/09/2025 11:15 AM EDT Assisted patient in completing and notarizing her Living Will naming her daughter, Annette Burkett, [facility]. Placed copy in chart and Epic. documented in this encounter Plan of Treatment Not on file documented as of this encounter Procedures Procedure Name Priority Date/Time Associated Diagnosis Comments NOVA GLUCOSE POC Routine 02/13/2025 6:48 PM EDT NOVA GLUCOSE POC Routine 02/13/2025 11:2 2 AM EDT NOVA GLUCOSE POC Routine 02/13/2025 7:37 AM EDT CBC W/ AUTO DIFF Routine 02/13/2025 5:08 AM EDT HEPATITIS B SURFACE ANTIGEN Add-On 02/13/2025 5:08 AM EDT VANCOMYCIN LEVEL, RANDOM Routine 02/13/2025 5:08 AM EDT BASIC METABOLIC PANEL Routine 02/13/2025 5:08 AM EDT NOVA GLUCOSE POC Routine 02/12/2025 8:23 PM EDT NOVA GLUCOSE POC Routine 02/12/2025 3:31 PM EDT NOVA GLUCOSE POC Routine 02/12/2025 11:1 9 AM EDT NOVA GLUCOSE POC Routine 02/12/2025 7:29 AM EDT NOVA GLUCOSE POC Routine 02/11/2025 8:02 PM EDT NOVA GLUCOSE POC Routine 02/11/2025 4:09 PM EDT NOVA GLUCOSE POC Routine 02/11/2025 11:4 2 AM EDT NOVA GLUCOSE POC Routine 02/11/2025 7:36 AM EDT CBC W/ AUTO DIFF Routine 02/11/2025 5:31 AM EDT C-REACTIVE PROTEIN Routine 02/11/2025 5: 31 AM EDT BASIC METABOLIC PANEL Routine 02/11/2025 5:31 AM EDT NOVA GLUCOSE POC Routine 02/10/2025 7:54 PM EDT NOVA GLUCOSE POC Routine 02/10/2025 6:20 PM EDT NOVA GLUCOSE POC Routine 02/10/2025 12:2 3 PM EDT NOVA GLUCOSE POC Routine 02/10/2025 7:52 AM EDT [id number] SIS INPATIENT Routine 02/10/2025 12:30 AM EDT NOVA GLUCOSE POC Routine 02/09/2025 8:08 PM EDT NOVA GLUCOSE POC Routine 02/09/2025 4:16 PM EDT NOVA GLUCOSE POC Routine 02/09/2025 11:1 6 AM EDT US HEMODIALYSIS ACCESS STAT 9:30 AM EDT NOVA GLUCOSE POC Routine 02/09/2025 7:32 AM EDT CBC W/ AUTO DIFF STAT 02/09/2025 4:41 AM EDT COMPREHENSIVE METABOLIC PANEL STAT 02/09/2025 4:41 AM EDT WOUND CULTURE + GRAM STAIN STAT 02/08/2025 11:19 PM EDT NOVA GLUCOSE POC Routine 02/08/2025 10:[address] UPPER EXTREMITY WITHOUT IV CONTRAST RIGHT STAT 02/08/2025 5:30 PM EDT [place] PST (EXTRA TUBES) STAT 02/08/2025 4:17 PM EDT [place] BLUE TOP (EXTRA TUBES) STAT 02/08/2025 4:17 PM EDT [place] EXTRA TUBES STAT 02/08/2025 4:17 PM EDT BLOOD CULTURE STAT 02/08/2025 4:17 PM EDT CBC W/ AUTO DIFF STAT 02/08/2025 4:00 PM EDT LACTIC ACID WITH REFLEX STAT 02/08/2025 4:00 PM EDT C-REACTIVE PROTEIN STAT 02/08/2025 4: 00 PM EDT BLOOD CULTURE STAT 02/08/2025 4:00 PM EDT SEDIMENTATION RATE STAT 02/08/2025 4: 00 PM EDT BASIC METABOLIC PANEL STAT 02/08/2025 4:00 PM EDT documented in this encounter Results * (ABNORMAL) Glucose, Nova Meter (02/13/2025 6:48 PM EDT) POC-GLUCOSE 208(H) 70 - 110 mg/dL 02/13/2025 6:49 PM EDT [facility] Comment: In the event of poor peripheral blood flow, venous or arterial blood should be used due to the potential of erroneous results. Notified Nurse RBV Mechanical Test Engineer [id number] 02/13/2025 6:49 PM EDT [facility] Blood WHOLE BLOOD / Unknown 02/13/2025 6:48 PM EDT 02/13/2025 6:49 PM EDT Narrative [facility] - 02/13/2025 6:49 PM EDT Mechanical Test Engineer ID is - [id number] us Briana Aariza MD POINT OF CARE TEST ORDERABLES Fi nal Result Performing Organization Address [facility] Co tn Phone Number [facility] [address] [phone] * (ABNORMAL) Glucose, Nova Meter (02/13/2025 11:22 AM EDT) POC-GLUCOSE 344(H) 70 - 110 mg/dL 02/13/2025 11:25 AM EDT [facility] Comment: In the event of poor peripheral blood flow, venous or arterial blood should be used due to the potential of erroneous results. Notified Nurse RBV Mechanical Test Engineer [id number] 02/13/2025 11:25 AM EDT [facility] Blood WHOLE BLOOD / Unknown 02/13/2025 11:22 AM EDT 02/13/2025 11:25 AM EDT Narrative [facility] - 02/13/2025 11:25 AM EDT Mechanical Test Engineer ID is - [id number] us Briana Araiza MD POINT OF CARE TEST ORDERABLES Fi nal Result Performing Organization Address [facility] Co de Phone Number [facility] [address] [phone] * (ABNORMAL) Glucose, Nova Meter (02/13/2025 7:37 AM EDT) [facility] POC-GLUCOSE 278(H) 70 - 110 mg/dL 02/13/2025 7:39 AM EDT [facility] Comment: In the event of poor peripheral blood flow, venous or arterial blood should be used due to the potential of erroneous results. Notified Nurse RBV Mechanical Test Engineer [id number] 02/13/2025 7:39 AM EDT [facility] Blood WHOLE BLOOD / Unknown 02/13/2025 7:37 AM EDT 02/13/2025 7:39 AM EDT Narrative [facility] - 02/13/2025 7:39 AM EDT Mechanical Test Engineer ID is - [id number] us Briana Araiza MD POINT OF CARE TEST ORDERABLES Fi nal Result Performing Organization Address [facility]/ZIP Co de Phone Number [facility] [address] [phone] * Hepatitis B surface antigen (02/13/2025 5:08 AM EDT) [facility] Hepatitis B surface antigen Nonreactive Nonreactive 02/13/2025 7:19 AM EDT [facility] Blood Venipuncture / Unknown 02/13/2025 5:08 AM EDT 02/13/2025 5:46 AM EDT us Nataliya Cain MD LAB BLOOD ORDERABLES Final Resul t Performing Organization Address [facility]/ZIP Co de Phone Number [facility] [address] [phone] * (ABNORMAL) CBC with automated diff (02/13/2025 5:08 AM EDT) [facility] WBC 8.1 4.0 - 10.0 K/ L 02/13/2025 5:59 AM EDT [facility] RBC 3.34(L) 3.93 - 5.22 M/ L 02/13/2025 5:59 AM EDT [facility] Hemoglobin 10.7(L) 11.2 - 15.7 GM/DL 02/13/2025 5:59 AM EDT [facility] Hematocrit 32.4(L) 34.1 - 44.9 % 02/13/2025 5:59 AM EDT [facility] MCV 97(H) 79 - 95 fL 02/13/2025 5:59 AM EDT [facility] MCH 32.0 25.6 - 32.2 pg 02/13/2025 5:59 AM EDT [facility] MCHC 33.0 32.2 - 35.5 GM/DL 02/13/2025 5:59 AM EDT [facility] RDW 12.9 11.7 - 14.4 % 02/13/2025 5:59 AM EDT [facility] Platelets 241 140 - 375 K/CU MM 02/13/2025 5:59 AM EDT [facility] MPV 9.7 9.4 - 12.3 fL 02/13/2025 5:59 AM EDT [facility] % Neutros 60 34 - 71 % 02/13/2025 5:59 AM EDT [facility] % Lymphs 29 19 - 52 % 02/13/2025 5:59 AM EDT [facility] % Monos 9 5 - 13 % 02/13/2025 5:59 AM EDT [facility] % Eos 2 1 - 6 % 02/13/2025 5:59 AM EDT [facility] % Baso 1 0 - 1 % 02/13/2025 5:59 AM EDT [facility] NRBC Absolute <0.01 0 - 0.012 K/ul 02/13/2025 5:59 AM EDT [facility] # Neutros 4.82 1.56 - 6.13 K/ L 02/13/2025 5:59 AM EDT [facility] # Lymphs 2.32 1.18 - 3.74 K/ L 02/13/2025 5:59 AM EDT [facility] # Monos 0.70 0.24 - 0.86 K/ L 02/13/2025 5:59 AM EDT [facility] # Eos 0.13 0.04 - 0.36 K/ L 02/13/2025 5:59 AM EDT [facility] # Baso 0.04 0.01 - 0.08 K/ L 02/13/2025 5:59 AM EDT [facility] Immature Granulocytes-Re lative 0.60(H) 0.01 - 0.43 % 02/13/2025 5:59 AM EDT [facility] # IG 0.05(H) 0.00 - 0.03 K/uL 02/13/2025 5:59 AM EDT [facility] Blood Venipuncture / Unknown 02/13/2025 5:08 AM EDT 02/13/2025 5:54 AM EDT Narrative [facility] - 02/13/2025 5:59 AM EDT When CBC w/ Auto Diff [...] Flag noted Atypical Lymph flag noted us Briana Araiza MD LAB BLOOD ORDERABLES Final Resul t [facility] [address] [phone] * (ABNORMAL) Basic Metabolic Panel (02/13/2025 5:08 AM EDT) Sodium 135(L) 136 - 145 meq/L 02/13/2025 6:19 AM EDT [facility] Potassium 4.3 3.4 - 5.1 meq/L 02/13/2025 6:19 AM EDT [facility] CO2 25 22 - 29 meq/L 02/13/2025 6:19 AM EDT [facility] Chloride 97(L) 98 - 112 meq/L 02/13/2025 6:19 AM EDT [facility] Glucose 276(H) 74 - 100 mg/dL 02/13/2025 6:19 AM EDT [facility] BUN 35.2(H) 9.8 - 20.1 mg/dL 02/13/2025 6:19 AM EDT [facility] Creatinine 6.77(H) 0.57 - 1.11 mg/dL 02/13/2025 6:19 AM EDT [facility] BUN/Creatinine 5(L) 8 - 20 02/13/2025 6:19 AM EDT [facility] Calcium 7.3(L) 8.4 - 10.2 mg/dL 02/13/2025 6:19 AM EDT [facility] Anion Gap 17(H) 4 - 12 02/13/2025 6:19 AM EDT [facility] eGFR (mL/min/1.73m2) 7(L) >=60 mL/min/1.7 3m2 02/13/2025 6:19 AM EDT [facility] Osmolality Calc 288.0 mOsm/kg 6:19 AM EDT [facility] Blood Venipuncture / Unknown 02/13/2025 5:08 AM EDT 02/13/2025 5:46 AM EDT Briana Araiza MD LAB BLOOD ORDERABLES Final Resul t [facility] [address] [phone] * Vancomycin level, random (02/13/2025 5:08 AM EDT) Vancomycin Rm 18.4 0.0 - 40.0 ug/mL 02/13/2025 6:19 AM EDT [facility] Comment: Therapeutic peak: >20 to 40 ug/mL Trough levels: 10 to 20 ug/mL Toxicity: > 80 ug/mL Blood Venipuncture / Unknown 02/13/2025 5:08 AM EDT 02/13/2025 5:46 AM EDT Olegario Varghese PA-C LAB BLOOD ORDERABLES Final R esult [facility] [address] [phone] * (ABNORMAL) Glucose, Nova Meter (02/12/2025 8:23 PM EDT) POC-GLUCOSE 316(H) 70 - 110 mg/dL 02/12/2025 8:24 PM EDT [facility] Comment: In the event of poor peripheral blood flow, venous or arterial blood should be used due to the potential of erroneous results. Notified Nurse RBV Mechanical Test Engineer [id number] 02/12/2025 8:24 PM EDT [facility] Blood WHOLE BLOOD / Unknown 02/12/2025 8:23 PM EDT 02/12/2025 8:24 PM EDT Narrative [facility] - 02/12/2025 8:24 PM EDT Mechanical Test Engineer ID is - [id number] us Briana Araiza MD POINT OF CARE TEST ORDERABLES Fi nal Result Performing Organization Address [facility] Co de Phone Number [facility] [address] [phone] * (ABNORMAL) Glucose, Nova Meter (02/12/2025 3:31 PM EDT) Pathologist [facility] POC-GLUCOSE 279(H) 70 - 110 mg/dL 02/12/2025 3:35 PM EDT [facility] Comment: In the event of poor peripheral blood flow, venous or arterial blood should be used due to the potential of erroneous results. Notified Nurse RBV Protocols Followed Mechanical Test Engineer [id number] 02/12/2025 3:35 PM EDT [facility] Blood WHOLE BLOOD / Unknown 02/12/2025 3:31 PM EDT 02/12/2025 3:35 PM EDT Narrative [facility] - 02/12/2025 3:35 PM EDT Mechanical Test Engineer ID is - [id number] us Briana Araiza MD POINT OF CARE TEST ORDERABLES Fi nal Result Performing Organization Address [facility] Co de Phone Number [facility] [address] [phone] * (ABNORMAL) Glucose, Nova Meter (02/12/2025 11:19 AM EDT) POC-GLUCOSE 230(H) 70 - 110 mg/dL 02/12/2025 11:23 AM EDT [facility] Comment: In the event of poor peripheral blood flow, venous or arterial blood should be used due to the potential of erroneous results. Protocols Followed Notified Nurse RBV Mechanical Test Engineer [id number] 02/12/2025 11:23 AM EDT [facility] Blood WHOLE BLOOD / Unknown 02/12/2025 11:19 AM EDT 02/12/2025 11:23 AM EDT Narrative [facility] - 02/12/2025 11:23 AM EDT Mechanical Test Engineer ID is - [id number] Briana Araiza MD POINT OF CARE TEST ORDERABLES Fi nal Result Performing Organization Address [facility] de Phone Number [facility] [address] [phone] * (ABNORMAL) Glucose, Nova Meter (02/12/2025 7:29 AM EDT) POC-GLUCOSE 203(H) 70 - 110 mg/dL 02/12/2025 7:31 AM EDT [facility] Comment: In the event of poor peripheral blood flow, venous or arterial blood should be used due to the potential of erroneous results. Notified Nurse RBV Protocols Followed Mechanical Test Engineer [id number] 02/12/2025 7:31 AM EDT [facility] Blood WHOLE BLOOD / Unknown 02/12/2025 7:29 AM EDT 02/12/2025 7:31 AM EDT Narrative [facility] - 02/12/2025 7:31 AM EDT Mechanical Test Engineer ID is - [id number] us Briana Araiza MD POINT OF CARE TEST ORDERABLES Fi nal Result Performing Organization Address [facility] Co de Phone Number [facility] [address] [phone] * (ABNORMAL) Glucose, Nova Meter (02/11/2025 8:02 PM EDT) POC-GLUCOSE 205(H) 70 - 110 mg/dL 02/16/2025 2:01 PM EDT [facility] Comment: In the event of poor peripheral blood flow, venous or arterial blood should be used due to the potential of erroneous results. Notified Nurse RBV Mechanical Test Engineer [id number] 02/16/2025 2:01 PM EDT [facility] Blood WHOLE BLOOD / Unknown 02/11/2025 8:02 PM EDT 02/16/2025 2:01 PM EDT Narrative [facility] [facility] - 02/16/2025 2:01 PM EDT Mechanical Test Engineer ID is - [id number] us Briana Araiza MD POINT OF CARE TEST ORDERABLES Fi nal Result Performing Organization Address [facility] Phone Number [facility] [address] [phone] * (ABNORMAL) Glucose, Nova Meter (02/11/2025 4:09 PM EDT) POC-GLUCOSE 208(H) 70 - 110 mg/dL 02/11/2025 4:14 PM EDT [facility] Comment: In the event of poor peripheral blood flow, venous or arterial blood should be used due to the potential of erroneous results. Notified Nurse RBV Mechanical Test Engineer [id number] 02/11/2025 4:14 PM EDT [facility] Blood WHOLE BLOOD / Unknown 02/11/2025 4:09 PM EDT 02/11/2025 4:14 PM EDT Narrative [facility] - 02/11/2025 4:14 PM EDT Mechanical Test Engineer ID is - [id number] us Briana Araiza MD POINT OF CARE TEST ORDERABLES Fi nal Result Performing Organization Address [facility] Co de Phone Number [facility] [address] [place] [address], [facility] [phone] * (ABNORMAL) Glucose, Nova Meter (02/11/2025 11:42 AM EDT) POC-GLUCOSE 240(H) 70 - 110 mg/dL 02/11/2025 11:45 AM EDT [facility] Comment: In the event of poor peripheral blood flow, venous or arterial blood should be used due to the potential of erroneous results. Notified Nurse RBV Mechanical Test Engineer [id number] 02/11/2025 11:45 AM EDT [facility] Blood WHOLE BLOOD / Unknown 02/11/2025 11:42 AM EDT 02/11/2025 11:45 AM EDT Narrative [facility] - 02/11/2025 11:45 AM EDT Mechanical Test Engineer ID is - [id number] us Briana Araiza MD POINT OF CARE TEST ORDERABLES Fi nal Result Performing Organization Address [facility] Phone Number [facility] [address] [phone] * (ABNORMAL) Glucose, Nova Meter (02/11/2025 7:36 AM EDT) POC-GLUCOSE 234(H) 70 - 110 mg/dL 02/11/2025 8:10 AM EDT [facility] Comment: In the event of poor peripheral blood flow, venous or arterial blood should be used due to the potential of erroneous results. Notified Nurse RBV Mechanical Test Engineer [id number] 02/11/2025 8:10 AM EDT [facility] Blood WHOLE BLOOD / Unknown 02/11/2025 7:36 AM EDT 02/11/2025 8:10 AM EDT Narrative [facility] - 02/11/2025 8:10 AM EDT Mechanical Test Engineer ID is - [id number] us Briana Araiza MD POINT OF CARE TEST ORDERABLES Fi nal Result Performing Organization Address [facility] Co de Phone Number [facility] [address] [phone] * (ABNORMAL) C-Reactive Protein (02/11/2025 5:31 AM EDT) Pathologist [facility] CRP 11.0(H) 0.0 - 5.0 mg/L 02/11/2025 6:27 AM EDT [facility] Blood Venipuncture / Unknown 02/11/2025 5:31 AM EDT 02/11/2025 5:52 AM EDT us Briana Araiza MD LAB BLOOD ORDERABLES Final Resul t [facility] [address] [phone] * (ABNORMAL) CBC with automated diff (02/11/2025 5:31 AM EDT) Pathologist [facility] WBC 8.7 4.0 - 10.0 K/ L 02/11/2025 6:07 AM EDT [facility] RBC 3.68(L) 3.93 - 5.22 M/ L 02/11/2025 6:07 AM EDT [facility] Hemoglobin 12.0 11.2 - 15.7 GM/DL 02/11/2025 6:07 AM EDT [facility] Hematocrit 35.9 34.1 - 44.9 % 02/11/2025 6:07 AM EDT [facility] MCV 98(H) 79 - 95 fL 02/11/2025 6:07 AM EDT [facility] MCH 32.6(H) 25.6 - 32.2 pg 02/11/2025 6:07 AM EDT [facility] MCHC 33.4 32.2 - 35.5 GM/DL 02/11/2025 6:07 AM EDT [facility] RDW 12.9 11.7 - 14.4 % 02/11/2025 6:07 AM EDT [facility] Platelets 291 140 - 375 K/CU MM 02/11/2025 6:07 AM EDT [facility] MPV 9.3(L) 9.4 - 12.3 fL 02/11/2025 6:07 AM EDT [facility] % Neutros 66 34 - 71 % 02/11/2025 6:07 AM EDT [facility] % Lymphs 24 19 - 52 % 02/11/2025 6:07 AM EDT [facility] % Monos 7 5 - 13 % 02/11/2025 6:07 AM EDT [facility] % Eos 2 1 - 6 % 02/11/2025 6:07 AM EDT [facility] % Baso 1 0 - 1 % 02/11/2025 6:07 AM EDT [facility] NRBC Absolute <0.01 0 - 0.012 K/ul 02/11/2025 6:07 AM EDT [facility] # Neutros 5.71 1.56 - 6.13 K/ L 02/11/2025 6:07 AM EDT [facility] # Lymphs 2.12 1.18 - 3.74 K/ L 02/11/2025 6:07 AM EDT [facility] # Monos 0.58 0.24 - 0.86 K/ L 02/11/2025 6:07 AM EDT [facility] # Eos 0.17 0.04 - 0.36 K/ L 02/11/2025 6:07 AM EDT [facility] # Baso 0.04 0.01 - 0.08 K/ L 02/11/2025 6:07 AM EDT [facility] Immature Granulocytes-Re lative 0.70(H) 0.01 - 0.43 % 02/11/2025 6:07 AM EDT [facility] # IG 0.06(H) 0.00 - 0.03 K/uL 02/11/2025 6:07 AM EDT [facility] Blood Venipuncture / Unknown 02/11/2025 5:31 AM EDT 02/11/2025 5:52 AM EDT [facility] - 02/11/2025 6:07 AM EDT When CBC w/ Auto Diff [...] Flag noted Atypical Lymph flag noted us Briana Araiza MD LAB BLOOD ORDERABLES Final Resul t [facility] [address] [phone] * (ABNORMAL) Basic Metabolic Panel (02/11/2025 5:31 AM EDT) Sodium 135(L) 136 - 145 meq/L 02/11/2025 6:27 AM EDT [facility] Potassium 4.0 3.4 - 5.1 meq/L 02/11/2025 6:27 AM EDT [facility] CO2 25 22 - 29 meq/L 02/11/2025 6:27 AM EDT [facility] Chloride 98 98 - 112 meq/L 02/11/2025 6:27 AM EDT [facility] Glucose 216(H) 74 - 100 mg/dL 02/11/2025 6:27 AM EDT [facility] BUN 19.4 9.8 - 20.1 mg/dL 02/11/2025 6:27 AM EDT [facility] Creatinine 4.17(H) 0.57 - 1.11 mg/dL 02/11/2025 6:27 AM EDT [facility] BUN/Creatinine 5(L) 8 - 20 02/11/2025 6:27 AM EDT [facility] Calcium 7.9(L) 8.4 - 10.2 mg/dL 02/11/2025 6:27 AM EDT [facility] Anion Gap 16(H) 4 - 12 02/11/2025 6:27 AM EDT [facility] eGFR (mL/min/1.73m2) 12(L) >=60 mL/min/1.7 3m2 02/11/2025 6:27 AM EDT [facility] Osmolality Calc 279.0 mOsm/kg 6:27 AM EDT [facility] Blood Venipuncture / Unknown 02/11/2025 5:31 AM EDT 02/11/2025 5:52 AM EDT Briana Araiza MD LAB BLOOD ORDERABLES Final Resul t [facility] [address] [place] [address], [facility] [phone] * (ABNORMAL) Glucose, Nova Meter (02/10/2025 7:54 PM EDT) POC-GLUCOSE 176(H) 70 - 110 mg/dL 02/10/2025 7:56 PM EDT [facility] Comment: In the event of poor peripheral blood flow, venous or arterial blood should be used due to the potential of erroneous results. Notified Nurse RBV Mechanical Test Engineer [id number] 02/10/2025 7:56 PM EDT [facility] Blood WHOLE BLOOD / Unknown 02/10/2025 7:54 PM EDT 02/10/2025 7:56 PM EDT [facility] - 02/10/2025 7:56 PM EDT Mechanical Test Engineer ID is - [id number] us Briana Araiza MD POINT OF CARE TEST ORDERABLES Fi nal Result [facility] [address] [place] [address], [facility] [phone] * (ABNORMAL) Glucose, Nova Meter (02/10/2025 6:20 PM EDT) POC-GLUCOSE 149(H) 70 - 110 mg/dL 02/10/2025 6:22 PM EDT [facility] Comment: In the event of poor peripheral blood flow, venous or arterial blood should be used due to the potential of erroneous results. Protocols Followed Mechanical Test Engineer [id number] 02/10/2025 6:22 PM EDT [facility] Blood WHOLE BLOOD / Unknown 02/10/2025 6:20 PM EDT 02/10/2025 6:22 PM EDT Narrative [facility] - 02/10/2025 6:22 PM EDT Mechanical Test Engineer ID is - [id number] Briana Araiza MD POINT OF CARE TEST ORDERABLES Fi nal Result Performing Organization Address City/[facility]/ZIP Co de Phone Number [facility] [address] [phone] * (ABNORMAL) Glucose, Nova Meter (02/10/2025 12:23 PM EDT) POC-GLUCOSE 274(H) 70 - 110 mg/dL 02/10/2025 12:26 PM EDT [facility] Comment: In the event of poor peripheral blood flow, venous or arterial blood should be used due to the potential of erroneous results. Protocols Followed Notified Nurse RBV Mechanical Test Engineer [id number] 02/10/2025 12:26 PM EDT [facility] Blood WHOLE BLOOD / Unknown 02/10/2025 12:23 PM EDT 02/10/2025 12:26 PM EDT [facility] - 02/10/2025 12:26 PM EDT Mechanical Test Engineer ID is - [id number] Briana Araiza MD POINT OF CARE TEST ORDERABLES Fi nal Result Performing Organization Address City/[facility] Co de Phone Number [facility] [address] [phone] * (ABNORMAL) Glucose, Nova Meter (02/10/2025 7:52 AM EDT) POC-GLUCOSE 235(H) 70 - 110 mg/dL 02/10/2025 8:36 AM EDT [facility] Comment: In the event of poor peripheral blood flow, venous or arterial blood should be used due to the potential of erroneous results. Protocols Followed Notified Nurse RBV Mechanical Test Engineer [id number] 02/10/2025 8:36 AM EDT [facility] Blood WHOLE BLOOD / Unknown 02/10/2025 7:52 AM EDT 02/10/2025 8:36 AM EDT [facility] - 02/10/2025 8:36 AM EDT Mechanical Test Engineer ID is - [id number] us Briana Araiza MD POINT OF CARE TEST ORDERABLES Fi nal Result [facility] [address] [phone] * (ABNORMAL) Glucose, Nova Meter (02/09/2025 8:08 PM EDT) POC-GLUCOSE 172(H) 70 - 110 mg/dL 02/09/2025 8:09 PM EDT [facility] Comment: In the event of poor peripheral blood flow, venous or arterial blood should be used due to the potential of erroneous results. Protocols Followed Mechanical Test Engineer [id number] 02/09/2025 8:09 PM EDT [facility] Blood WHOLE BLOOD / Unknown 02/09/2025 8:08 PM EDT 02/09/2025 8:09 PM EDT [facility] - 02/09/2025 8:09 PM EDT Mechanical Test Engineer ID is - [id number] us Briana Araiza MD POINT OF CARE TEST ORDERABLES Fi nal Result [facility] [address] [phone] * (ABNORMAL) Glucose, Nova Meter (02/09/2025 4:16 PM EDT) POC-GLUCOSE 232(H) 70 - 110 mg/dL 02/09/2025 4:18 PM EDT [facility] Comment: In the event of poor peripheral blood flow, venous or arterial blood should be used due to the potential of erroneous results. Notified Nurse RBV Mechanical Test Engineer [id number] 02/09/2025 4:18 PM EDT [facility] Blood WHOLE BLOOD / Unknown 02/09/2025 4:16 PM EDT 02/09/2025 4:18 PM EDT Narrative [facility] - 02/09/2025 4:18 PM EDT Mechanical Test Engineer ID is - [id number] us Briana Araiza MD POINT OF CARE TEST ORDERABLES Fi nal Result Performing Organization Address [facility] Co de Phone Number [facility] [address] [phone] * (ABNORMAL) Glucose, Nova Meter (02/09/2025 11:16 AM EDT) POC-GLUCOSE 154(H) 70 - 110 mg/dL 02/09/2025 11:22 AM EDT [facility] Comment: In the event of poor peripheral blood flow, venous or arterial blood should be used due to the potential of erroneous results. Notified Nurse RBV Mechanical Test Engineer [id number] 02/09/2025 11:22 AM EDT [facility] Blood WHOLE BLOOD / Unknown 02/09/2025 11:16 AM EDT 02/09/2025 11:22 AM EDT Narrative [facility] - 02/09/2025 11:22 AM EDT Mechanical Test Engineer ID is - [id number] Briana Araiza MD POINT OF CARE TEST ORDERABLES Fi nal Result Performing Organization Address [facility] Co de Phone Number [facility] [address] [phone] * Ultrasound hemodialysis access (02/09/2025 9:30 AM EDT) Anatomical Region Laterality Modality Vascular, Abdomen Vascular Ultra sound 02/09/2025 8:47 AM EDT Narrative 02/09/2025 3:06 PM EDT Vascular Upper Extremities Arterial Duplex Procedure Demographics Patient Name YANG Norris Age 54 Patient Number [id number] Gender Female Race Unknown Ethnicity Corporate ID [id number] Height 66 Date of 1970 Weight 268 Accession Number [id number] BSA 2.27 m^2 Room Number 400 BMI 43.26 kg/m^2 Referring Physician ERNST AVILA Physician Assistant To The Dean OLIVIA Blount Procedure Type of Study: Extremities Arteries: Upper Extremities Arterial Duplex, Hemodialysis Graft Access Duplex, US HEMODIALYSIS ACCESS. Impressions Summary ################################## Indication: N18.6 End stage renal disease. RIGHT: Patent Brachiocephalic AVF. VOLUME FLOW: Mid: 1044 ml/min. ################################## Allergies - Sulfa. Patient Status:Inpatient . Study Location:Portable. Technical Quality:Adequate visualization. Risk Factors History of Disease + + + + !Diagnosis !Date !Comments ! + + + + !Diabetes ! ! ! + + + + !CAD ! ! ! + + + + !Hypertension ! ! ! + + + + !Hyperlipidemia ! ! ! + + + + !Renal failure ! ! ! + + + + Velocities are measured in cm/s ; Diameters are measured in mm Signature Procedure Note Noman Byrne DO - 02/09/2025 Vascular Upper Extremities Arterial Duplex Procedure Demographics Patient Name YANG Norris Age 54 Patient Number [id number] Gender Female Race Unknown Ethnicity Corporate ID [id number] Height 66 Date of 1970 Weight 268 Accession Number [id number] BSA 2.27 m^2 Room Number 400 BMI 43.26kg/m^2 Referring Physician ERNST DÍAZ Interpreting ANNEMARIE AVILA Physician Assistant To The Dean OLIVIA Blount Procedure Type of Study: Extremities Arteries: Upper Extremities Arterial Duplex, Hemodialysis Graft Access Duplex, US HEMODIALYSIS ACCESS. Impressions Summary ################################## Indication: N18.6 End stage renal disease. RIGHT: Patent Brachiocephalic AVF. VOLUME FLOW: Mid: 1044 ml/min. ################################## Allergies - Sulfa. Patient Status:Inpatient . Study Location:Portable. Technical Quality:Adequate visualization. Risk Factors History of Disease + + + + !Diagnosis !Date !Comments! + + + + !Diabetes ! !! + + + + !CAD ! !! + + + + !Hypertension ! !! + + + + !Hyperlipidemia ! !! + + + + !Renal failure ! !! + + + + Velocities are measured in cm/s ; Diameters are measured in mm Signature us Yuri Ocampo DO CV VASCULAR ORDERABLES Final Res ult * (ABNORMAL) Glucose, Nova Meter (02/09/2025 7:32 AM EDT) Pathologist [facility] POC-GLUCOSE 181(H) 70 - 110 mg/dL 02/09/2025 7:35 AM EDT [facility] Comment: In the event of poor peripheral blood flow, venous or arterial blood should be used due to the potential of erroneous results. Notified Nurse RBV Mechanical Test Engineer [phone] 02/09/2025 7:35 AM [facility] Blood WHOLE BLOOD / Unknown 02/09/2025 7:32 AM EDT 02/09/2025 7:35 AM EDT Narrative [facility] - 02/09/2025 7:35 AM EDT Mechanical Test Engineer ID is - [id number] Olegario Varghese PA-C POINT OF CARE TEST ORDERABLE S Final Result [facility] [address] [phone] * (ABNORMAL) Comprehensive metabolic panel (02/09/2025 4:41 AM EDT) Sodium 142 136 - 145 meq/L 02/09/2025 6:09 AM EDT [facility] Potassium 4.0 3.4 - 5.1 meq/L 02/09/2025 6:09 AM EDT [facility] Chloride 100 98 - 112 meq/L 02/09/2025 6:09 AM EDT [facility] CO2 31(H) 22 - 29 meq/L 02/09/2025 6:09 AM EDT [facility] Calcium 9.0 8.4 - 10.2 mg/dL 02/09/2025 6:09 AM EDT [facility] Glucose 197(H) 74 - 100 mg/dL 02/09/2025 6:09 AM EDT [facility] BUN 29.8(H) 9.8 - 20.1 mg/dL 02/09/2025 6:09 AM EDT [facility] Creatinine 4.72(H) 0.57 - 1.11 mg/dL 02/09/2025 6:09 AM EDT [facility] BUN/Creatinine 6(L) 8 - 20 02/09/2025 6:09 AM EDT [facility] eGFR (mL/min/1.73m2) 10(L) >=60 mL/min/1. 73m2 02/09/2025 6:09 AM EDT [facility] Albumin 3.0(L) 3.5 - 5.0 g/dL 02/09/2025 6:09 AM EDT [facility] Alkaline Phosphatase 175(H) 40 - 150 U/L 02/09/2025 6:09 AM EDT [facility] ALT 35(H) <=34 U/L 02/09/2025 6:09 AM EDT [facility] Comment: ALT2 reagent used for testing does not contain P5P supplementation and therefore may miss ALT elevations in patients with B6 deficiency. This population may be as high as 10% in the [place], with risk factors including malabsorption, drug interactions, and alcoholic hepatitis. AST 28 11 - 34 U/L 02/09/2025 6:09 AM EDT [facility] Comment: AST2 reagent used for testing does not contain P5P supplementation and therefore may miss AST elevations in patients with B6 deficiency. This population may be as high as 10% in the [place], with risk factors including malabsorption, drug interactions, and alcoholic hepatitis. Total Bilirubin 0.4 0.2 - 1.2 mg/dL 02/09/2025 6:09 AM EDT [facility] Protein, Total 6.6 6.4 - 8.3 g/dL 02/09/2025 6:09 AM EDT [facility] Globulin 3.6 2.5 - 4.1 g/dL 02/09/2025 6:09 AM EDT [facility] Anion Gap 15(H) 4 - 12 02/09/2025 6:09 AM EDT [facility] A/G Ratio 0.8 0.7 - 1.9 02/09/2025 6:09 AM EDT [facility] Osmolality Calc 294.7 mOsm/kg 6:09 AM EDT [facility] Blood Venipuncture / Unknown 02/09/2025 4:41 AM EDT 02/09/2025 5:46 AM EDT us Olegario Varghese PA-C LAB BLOOD ORDERABLES Final R esult [facility] [address] [place] [address], [facility] [phone] * (ABNORMAL) CBC with automated diff (02/09/2025 4:41 AM EDT) WBC 8.4 4.0 - 10.0 K/ L 02/09/2025 6:04 AM EDT [facility] RBC 3.46(L) 3.93 - 5.22 M/ L 02/09/2025 6:04 AM EDT [facility] Hemoglobin 11.0(L) 11.2 - 15.7 GM/DL 02/09/2025 6:04 AM EDT [facility] Hematocrit 34.5 34.1 - 44.9 % 02/09/2025 6:04 AM EDT [facility] MCV 100(H) 79 - 95 fL 02/09/2025 6:04 AM EDT [facility] MCH 31.8 25.6 - 32.2 pg 02/09/2025 6:04 AM EDT [facility] MCHC 31.9(L) 32.2 - 35.5 GM/DL 02/09/2025 6:04 AM EDT [facility] RDW 13.4 11.7 - 14.4 % 02/09/2025 6:04 AM EDT [facility] Platelets 313 140 - 375 K/CU MM 02/09/2025 6:04 AM EDT [facility] MPV 9.7 9.4 - 12.3 fL 02/09/2025 6:04 AM EDT [facility] % Neutros 59 34 - 71 % 02/09/2025 6:04 AM EDT [facility] % Lymphs 30 19 - 52 % 02/09/2025 6:04 AM EDT [facility] % Monos 7 5 - 13 % 02/09/2025 6:04 AM EDT [facility] % Eos 2 1 - 6 % 02/09/2025 6:04 AM EDT [facility] % Baso 1 0 - 1 % 02/09/2025 6:04 AM EDT [facility] NRBC Absolute <0.01 0 - 0.012 K/ul 02/09/2025 6:04 AM EDT [facility] # Neutros 4.97 1.56 - 6.13 K/ L 02/09/2025 6:04 AM EDT [facility] # Lymphs 2.54 1.18 - 3.74 K/ L 02/09/2025 6:04 AM EDT [facility] # Monos 0.62 0.24 - 0.86 K/ L 02/09/2025 6:04 AM EDT [facility] # Eos 0.16 0.04 - 0.36 K/ L 02/09/2025 6:04 AM EDT [facility] # Baso 0.05 0.01 - 0.08 K/ L 02/09/2025 6:04 AM EDT [facility] Immature Granulocytes-Re lative 1.10(H) 0.01 - 0.43 % 02/09/2025 6:04 AM EDT [facility] # IG 0.09(H) 0.00 - 0.03 K/uL 02/09/2025 6:04 AM EDT [facility] Blood Venipuncture / Unknown 02/09/2025 4:41 AM EDT 02/09/2025 5:57 AM EDT Narrative [facility] - 02/09/2025 6:04 AM EDT When CBC w/ Auto Diff is ordered the lab will add a Manual Differential as a quality check at no additional charge if: Lymphocytes greater than seventy five percent with normal or increased WBC Monocytes greater than Fifteen percent Basophil greater than four percent Bands >10% or several immature myeloids are seen on scan Blast? Flag noted Atypical Lymph flag noted Olegario Varghese PA-C LAB BLOOD ORDERABLES Final R esult [facility] [address] [phone] * (ABNORMAL) Wound Culture + Gram Stain (02/08/2025 11:19 PM EDT) Result Moderate Growth Methicillin resistant Staphylococcus aureus(A) 02/12/2025 8:05 AM EDT [facility] Comment:Resistant organism r equires isolation protocol. Result Moderate Growth Staphylococcus epidermidis(A) 02/12/2025 8:05 AM EDT [facility] Gram Stain Result No cells seen 02/12/2025 8:05 AM EDT [facility] Gram Stain Result Few gram positive cocci in pairs and clusters 02/12/2025 8:05 AM EDT [facility] Gram Stain Result Few gram positive cocci 02/12/2025 8:05 AM EDT [facility] Wound RIGHT UPPER ARM STRUCTURE / Unknown 02/08/2025 11:19 PM EDT 02/08/2025 11:27 PM EDT Narrative Organism Antibiotic Method Susceptibility Methicillin resistant Staphylococcus aureus Amoxicillin + Clavulanate >4/2: Resistant Methicillin resistant Staphylococcus aureus Ampicillin >8: Resistant Methicillin resistant Staphylococcus aureus Ampicillin + Sulbactam 16/8: Resistant Methicillin resistant Staphylococcus aureus Azithromycin >4: Resistant Methicillin resistant Staphylococcus aureus Cefazolin <=8: Resistant Methicillin resistant Staphylococcus aureus Cefepime >16: Resistant Methicillin resistant Staphylococcus aureus Cefotaxime <=8: Resistant Methicillin resistant Staphylococcus aureus Cefoxitin Screen >4: Positive Methicillin resistant Staphylococcus aureus Ceftaroline <=0.5: Susceptible Methicillin resistant Staphylococcus aureus Ceftriaxone 32: Resistant Methicillin resistant Staphylococcus aureus Ciprofloxacin >2: Resistant Methicillin resistant Staphylococcus aureus Clindamycin 1: Intermediate Methicillin resistant Staphylococcus aureus Daptomycin 1: Susceptible Methicillin resistant Staphylococcus aureus Erythromycin >4: Resistant Methicillin resistant Staphylococcus aureus Gentamicin >8: Resistant Methicillin resistant Staphylococcus aureus Imipenem <=4: Resistant Methicillin resistant Staphylococcus aureus Inducible Clindamycin <=4/0.5: Negative Methicillin resistant Staphylococcus aureus Levofloxacin >4: Resistant Methicillin resistant Staphylococcus aureus Linezolid 4: Susceptible Methicillin resistant Staphylococcus aureus Meropenem 4: Resistant Methicillin resistant Staphylococcus aureus Oxacillin >2: Resistant Methicillin resistant Staphylococcus aureus Penicillin >2: Resistant Methicillin resistant Staphylococcus aureus Rifampin <=1: Susceptible Methicillin resistant Staphylococcus aureus Tetracycline <=4: Susceptible Methicillin resistant Staphylococcus aureus Trimethoprim + Sulfamethoxazole <=0.5/9.5: Susceptible Methicillin resistant Staphylococcus aureus Vancomycin 2: Susceptible Staphylococcus epidermidis Amoxicillin + Clavulanate <=4/2: Resistant Staphylococcus epidermidis Ampicillin >8: Resistant Staphylococcus epidermidis Ampicillin + Sulbactam <=8/4: Resistant Staphylococcus epidermidis Azithromycin >4: Resistant Staphylococcus epidermidis Cefazolin <=8: Resistant Staphylococcus epidermidis Cefepime 8: Resistant Staphylococcus epidermidis Cefotaxime <=8: Resistant Staphylococcus epidermidis Ceftriaxone 16: Resistant Staphylococcus epidermidis Ciprofloxacin >2: Resistant Staphylococcus epidermidis Clindamycin >4: Resistant Staphylococcus epidermidis Daptomycin <=0.5: Susceptible Staphylococcus epidermidis Erythromycin >4: Resistant Staphylococcus epidermidis Gentamicin <=4: Susceptible Staphylococcus epidermidis Imipenem 8: Resistant Staphylococcus epidermidis Levofloxacin 4: Intermediate Staphylococcus epidermidis Meropenem 8: Resistant Staphylococcus epidermidis Oxacillin >2: Resistant Staphylococcus epidermidis Penicillin >2: Resistant Staphylococcus epidermidis Rifampin <=1: Susceptible Staphylococcus epidermidis Tetracycline <=4: Susceptible Staphylococcus epidermidis Trimethoprim + Sulfamethoxazole <=0.5/9.5: Susceptible Staphylococcus epidermidis Vancomycin 1: Susceptible Olegario Varghese PA-C MICROBIOLOGY - GENERAL ORDER EAN Final Result [facility] [address] [phone] * (ABNORMAL) Glucose, Nova Meter (02/08/2025 10:58 PM EDT) [facility] POC-GLUCOSE 131(H) 70 - 110 mg/dL 02/08/2025 10:59 PM EDT [facility] Comment: In the event of poor peripheral blood flow, venous or arterial blood should be used due to the potential of erroneous results. Notified Nurse RBV Mechanical Test Engineer [id number] 02/08/2025 10:59 PM EDT [facility] Blood WHOLE BLOOD / Unknown 02/08/2025 10:58 PM EDT 02/08/2025 10:59 PM EDT Narrative [facility] - 02/08/2025 10:59 PM EDT Mechanical Test Engineer ID is - [id number] us Olegario Varghese PA-C POINT OF CARE TEST ORDERABLE S Final Result [facility] [address] [phone] * CT upper extremity without contrast right (02/08/2025 5:30 PM EDT) Anatomical Region Laterality Modality Upper Extremity, Shoulder, H umerus, Elbow, Forearm, Wrist, Hand Computed Tomography (CT) 02/08/2025 5:43 PM EDT Impressions 02/08/2025 6:04 PM EDT 1. Abnormal soft tissue prominence with surrounding stranding in the antecubital region encasing the junction of the basilic and antecubital veins. Without the benefit of prior exams, it is not possible to distinguish whether this represents an acute inflammatory process or chronic postoperative change with scarring. 2. Edema and stranding along the posterior distal humerus and olecranon suggestive of superficial cellulitis. 3. No large volume abscess. No gas in the soft tissues. This study was performed using dose reduction techniques to achieve radiation exposure as low as reasonably achievable (ALARA). Images reviewed, interpreted, and dictated by Nirav Navarro MD Narrative 02/08/2025 6:[address] RIGHT UPPER EXTREMITY, ATTENTION ELBOW REGION HISTORY: Pain, TECHNIQUE: Thin section axial CT with sagittal and coronal reconstructions. FINDINGS: No fracture or bone destruction is present. There is stranding which overlies the olecranon and posteromedial distal humerus which is suspicious for cellulitis. There is no gas in the soft tissues. There is stranding and soft tissue irregularity in the antecubital region which surrounds the basilic vein-antecubital vein junction. This is also in the region of the brachial artery. Given the presence of multiple surgical clips, it is not possible to differentiate chronic postoperative change from an acute inflammatory process particularly without the benefit of prior exams. No gas is seen in the soft tissues. Aside from the surgical clips, no foreign body is seen. Procedure Note Nirav Navarro MD - 02/08/2025 CT RIGHT UPPER EXTREMITY, ATTENTION ELBOW REGION HISTORY: Pain, TECHNIQUE: Thin section axial CT with sagittal and coronal reconstructions. FINDINGS: No fracture or bone destruction is present. There is stranding which overlies the olecranon and posteromedial distal humerus which is suspicious for cellulitis. There is no gas in the soft tissues. There is stranding and soft tissue irregularity in the antecubital region which surrounds the basilic vein-antecubital vein junction. This is also in the region of the brachial artery. Given the presence of multiple surgical clips, it is not possible to differentiate chronic postoperative change from an acute inflammatory process particularly without the benefit of prior exams. No gas is seen in the soft tissues. Aside from the surgical clips, no foreign body is seen. IMPRESSION: 1. Abnormal soft tissue prominence with surrounding stranding in the antecubital region encasing the junction of the basilic and antecubital veins. Without the benefit of prior exams, it is not possible to distinguish whether this represents an acute inflammatory process or chronic postoperative change with scarring. 2. Edema and stranding along the posterior distal humerus and olecranon suggestive of superficial cellulitis. 3. No large volume abscess. No gas in the soft tissues. This study was performed using dose reduction techniques to achieve radiation exposure as low as reasonably achievable (ALARA). Images reviewed, interpreted, and dictated by Nirav Navarro MD Yuri Ocampo DO IMG CT ORDERABLES Final Result * PST Top Extra Tubes (02/08/2025 4:17 PM EDT) HOLD SPECIMEN ( - BKR) Hold for add-ons. 02/08/2025 6:01 PM EDT [facility] Comment:Auto resulted. Blood Venipuncture / Unknown 02/08/2025 4:17 PM EDT 02/08/2025 4:20 PM EDT Loco Cortes MD LAB BLOOD ORDERABLES Final Res ult Performing Organization Address [facility] Co de Phone Number [facility] [address] [phone] * Blue Top Extra Tubes (02/08/2025 4:17 PM EDT) HOLD SPECIMEN (SJ - BKR) Hold for add-ons. 02/08/2025 6:01 PM EDT [facility] Comment:Auto resulted. Blood Venipuncture / Unknown 02/08/2025 4:17 PM EDT 02/08/2025 4:20 PM EDT Loco Cortes MD LAB BLOOD ORDERABLES Final Res ult Performing Organization Address [facility] Co de Phone Number [facility] [address] [phone] * Blood Culture (02/08/2025 4:17 PM EDT) Result No growth in 5 days 02/13/2025 5:00 PM EDT [facility] Blood ENTIRE RIGHT UPPER ARM / Unknown Venipuncture / Unknown 02/08/2025 4:17 PM EDT 02/08/2025 4:20 PM EDT Narrative [facility] - 02/13/2025 5:00 PM EDT Blood volume is not within specification. May compromise patient blood culture results. [facility] MICROBIOLOGY - GENERAL ORDERABLE S Final Result Performing Organization Address City/[facility] Co de Phone Number [facility] [address] [phone] * (ABNORMAL) C-Reactive Protein (02/08/2025 4:00 PM EDT) CRP 18.6(H) 0.0 - 5.0 mg/L 02/08/2025 4:39 PM EDT [facility] Blood Venipuncture / Unknown 02/08/2025 4:00 PM EDT 02/08/2025 4:20 PM EDT [employer] LAB BLOOD ORDERABLES Final Resul t Performing Organization Address City/[facility]/ZIP Co de Phone Number [facility] [address] [phone] * (ABNORMAL) Sedimentation rate (02/08/2025 4:00 PM EDT) Sed Rate 35(H) 0 - 30 mm/HR 02/08/2025 4:43 PM EDT [facility] Blood Venipuncture / Unknown 02/08/2025 4:00 PM EDT 02/08/2025 4:20 PM EDT [facility] LAB BLOOD ORDERABLES Final Resul t [facility] [address] [phone] * Lactic Acid with reflex (SJ) (02/08/2025 4:00 PM EDT) Lactic Acid Level (mmol/L) 1.7 0.5 - 2.2 mmol/L 02/08/2025 4:39 PM EDT [facility] Blood Venipuncture / Unknown 02/08/2025 4:00 PM EDT 02/08/2025 4:20 PM EDT us Yuri Ocampo DO LAB BLOOD ORDERABLES Final Resul t Performing Organization Address [facility] de Phone Number [facility] [address] [phone] * Blood Culture (02/08/2025 4:00 PM EDT) Result No growth in 5 days 02/13/2025 5:00 PM EDT [facility] Blood Venipuncture / Unknown 02/08/2025 4:00 PM EDT 02/08/2025 4:20 PM EDT Narrative [facility] - 02/13/2025 5:00 PM EDT Blood volume is not within specification. May compromise patient blood culture results. us Yuri Ocampo DO MICROBIOLOGY - GENERAL ORDERABLE S Final Result Performing Organization Address [facility] Co de Phone Number [facility] [address] [phone] * (ABNORMAL) Basic Metabolic Panel (02/08/2025 4:00 PM EDT) Sodium 142 136 - 145 meq/L 02/08/2025 4:39 PM EDT [facility] Potassium 3.8 3.4 - 5.1 meq/L 02/08/2025 4:39 PM EDT [facility] CO2 30(H) 22 - 29 meq/L 02/08/2025 4:39 PM EDT [facility] Chloride 99 98 - 112 meq/L 02/08/2025 4:39 PM EDT [facility] Glucose 155(H) 74 - 100 mg/dL 02/08/2025 4:39 PM EDT [facility] BUN 21.5(H) 9.8 - 20.1 mg/dL 02/08/2025 4:39 PM EDT [facility] Creatinine 3.62(H) 0.57 - 1.11 mg/dL 02/08/2025 4:39 PM EDT [facility] BUN/Creatinine 6(L) 8 - 20 02/08/2025 4:39 PM EDT [facility] Calcium 9.0 8.4 - 10.2 mg/dL 02/08/2025 4:39 PM EDT [facility] Anion Gap 17(H) 4 - 12 02/08/2025 4:39 PM EDT [facility] eGFR (mL/min/1.73m2) 14(L) >=60 mL/min/1.7 3m2 02/08/2025 4:39 PM EDT [facility] Osmolality Calc 289.4 mOsm/kg 4:39 PM EDT [facility] Blood Venipuncture / Unknown 02/08/2025 4:00 PM EDT 02/08/2025 4:20 PM EDT Narrative [facility] - 02/08/2025 4:39 PM EDT Specimen slightly hemolyzed us Yuri Ocampo DO LAB BLOOD ORDERABLES Final Resul t [facility] [address] [place] [address], [facility] [phone] * (ABNORMAL) CBC with Auto Diff (02/08/2025 4:00 PM EDT) WBC 8.9 4.0 - 10.0 K/ L 02/08/2025 4:24 PM EDT [facility] RBC 3.28(L) 3.93 - 5.22 M/ L 02/08/2025 4:24 PM EDT [facility] Hemoglobin 10.7(L) 11.2 - 15.7 GM/DL 02/08/2025 4:24 PM EDT [facility] Hematocrit 32.0(L) 34.1 - 44.9 % 02/08/2025 4:24 PM EDT [facility] MCV 98(H) 79 - 95 fL 02/08/2025 4:24 PM EDT [facility] MCH 32.6(H) 25.6 - 32.2 pg 02/08/2025 4:24 PM EDT [facility] MCHC 33.4 32.2 - 35.5 GM/DL 02/08/2025 4:24 PM EDT [facility] RDW 13.2 11.7 - 14.4 % 02/08/2025 4:24 PM EDT [facility] Platelets 320 140 - 375 K/CU MM 02/08/2025 4:24 PM EDT [facility] MPV 9.6 9.4 - 12.3 fL 02/08/2025 4:24 PM EDT [facility] % Neutros 65 34 - 71 % 02/08/2025 4:24 PM EDT [facility] % Lymphs 25 19 - 52 % 02/08/2025 4:24 PM EDT [facility] % Monos 6 5 - 13 % 02/08/2025 4:24 PM EDT [facility] % Eos 2 1 - 6 % 02/08/2025 4:24 PM EDT [facility] % Baso 1 0 - 1 % 02/08/2025 4:24 PM EDT [facility] NRBC Absolute <0.01 0 - 0.012 K/ul 02/08/2025 4:24 PM EDT [facility] # Neutros 5.86 1.56 - 6.13 K/ L 02/08/2025 4:24 PM EDT [facility] # Lymphs 2.24 1.18 - 3.74 K/ L 02/08/2025 4:24 PM EDT [facility] # Monos 0.57 0.24 - 0.86 K/ L 02/08/2025 4:24 PM EDT [facility] # Eos 0.14 0.04 - 0.36 K/ L 02/08/2025 4:24 PM EDT [facility] # Baso 0.05 0.01 - 0.08 K/ L 02/08/2025 4:24 PM EDT [facility] Immature Granulocytes-Re lative 0.90(H) 0.01 - 0.43 % 02/08/2025 4:24 PM EDT [facility] # IG 0.08(H) 0.00 - 0.03 K/uL 02/08/2025 4:24 PM EDT [facility] Blood Venipuncture / Unknown 02/08/2025 4:00 PM EDT 02/08/2025 4:20 PM EDT Narrative [facility] - 02/08/2025 4:24 PM EDT When CBC w/ Auto Diff [...] Flag noted Atypical Lymph flag noted us Yuri Ocampo DO LAB BLOOD ORDERABLES Final Resul t [facility] [address] [phone] documented in this encounter Visit Diagnoses Diagnosis Surgical site infection- Primary Surgical site infection documented in this encounter Admitting Diagnoses Diagnosis Surgical site infection documented in this encounter Administered Medications Inactive Administered Medications - up to 3 most recent administrations Medication Order MAR Action Action Date Dose Rate Site acetaminophen (TYLENOL) tablet 500 mg 500 mg Every 6 hours PRN, oral, mild pain (1-3), fever greater than or equal to 38C, Starting on Susanna 02/09/25 at 1046, Recommended maximum dose of acetaminophen is 4000 mg from all sources in 24 hours Given 02/10/2025 4:13 AM EDT 500 mg amLODIPine (NORVASC) tablet 10 mg 10 mg Daily, oral, First dose on Susanna 02/09/25 at 0900, Antihypertensive - Check BP - Check Pulse Given 02/13/2025 9:08 AM EDT 10 mg Given 02/12/2025 8:51 AM EDT 10 mg Given 02/11/2025 9:49 AM EDT 10 mg aspirin EC tablet 81 mg 81 mg Daily, oral, First dose on Thu02/09/25 at 0900, * DO NOT CRUSH THIS DOSAGE FORM * Given 02/13/2025 9:08 AM EDT 8 1 mg Given 02/12/2025 8:51 AM EDT 81 mg Given 02/11/2025 9:48 AM EDT 81 mg atorvastatin (LIPITOR) tablet 40 mg 40 mg Every Night, oral, First dose on Thu02/08/25 at 2100 Given 02/12/2025 8:48 PM EDT 40 mg Given 02/11/2025 9:40 PM EDT 40 mg Given 02/10/2025 9:51 PM EDT 40 mg baclofen (LIORESAL) tablet 5 mg 5 mg Every Night PRN, oral, muscle spasms, Starting on Thu02/09/25 at 1046 Given 02/12/2025 8:47 PM EDT 5 mg Given 02/11/2025 9:44 PM EDT 5 mg Given 02/10/2025 9:55 PM EDT 5 mg bisacodyL (DULCOLAX) EC tablet 10 mg 10 mg Daily as needed, oral, constipation, Starting on Thu02/08/25 at 1832, 1st line for treatment of constipation - give scheduled if no bowel movement in past 24 hours. See suppository order and give rectally if not able to take PO. bisacodyL (DULCOLAX) suppository 10 mg 10 mg Daily as needed, rectal, constipation, Starting on Thu02/08/25 at 1832, 1st line for treatment of constipation - give scheduled if no bowel movement in past 24 hours. Give suppository rectally if unable to take PO. carvediloL (COREG) tablet 12.5 mg 12.5 mg 2 times daily, oral, First dose on Thu02/08/25 at 2100, Hold for systolic BP < 90 mmHg or for HR < 50 BPM Given 02/13/2025 9:08 AM EDT 12.5 mg Given 02/12/2025 8:47 PM EDT 12.5 mg Given 02/12/2025 8:52 AM EDT 12.5 mg ceFAZolin (ANCEF) 1 g in sodium chloride 0.9 % (NS) 50 mL BLANCA IVPB 1 g Every 8 hours scheduled, intravenous, Administer over 30 Minutes, First dose on Thu02/09/25 at 1300, Please choose an indication: Skin/Soft Tissue Infection IVPB Started 02/09/2025 2:01 PM EDT 1 g 100 mL/hr ceFAZolin (ANCEF) 1 g in sodium chloride 0.9 % (NS) 50 mL BLANCA IVPB 1 g Every 24 hours, intravenous, Administer over 30 Minutes, First dose on Thu02/10/25 at 1600, Please choose an indication: Skin/Soft Tissue Infection IVPB Started 02/11/2025 4:06 PM EDT 1 g 100 mL/hr IVPB Started 02/10/2025 6:24 PM EDT 1 g 100 mL/hr gabapentin (NEURONTIN) capsule 300 mg 300 mg Every Night, oral, First dose on Thu02/08/25 at 2100 Given 02/12/2025 8:47 PM EDT 300 mg Given 02/11/2025 9:40 PM EDT 300 mg Given 02/10/2025 9:51 PM EDT 300 mg heparin injection 5,000 Units 5,000 Units Every 8 hours scheduled, subcutaneous, First dose on Thu02/09/25 at 1530 Given 02/13/2025 12:20 PM EDT 5,000 Units Abdominal Tissue Given 02/13/2025 6:33 AM EDT 5,000 Units A bdominal Tissue Given 02/12/2025 8:48 PM EDT 5,000 Units A bdominal Tissue hydrALAZINE (APRESOLINE) injection 10 mg 10 mg Every 6 hours PRN, intravenous, hypertension (sbp greater than 160), Starting on Thu02/08/25 at 1832, Hold if SBP < 100 mmHg, DBP < 50 mmHg, or patient is on pressor. Look-alike/Sound-alike medication HYDROcodone-acetaminophen (NORCO) 5-325 mg per tablet 1 tablet 1 tablet Once as needed, oral, moderate pain (4-6), severe pain (7-10), Starting on Thu02/10/25 at 0530, For 1 dose, Recommended maximum dose of acetaminophen is 4000 mg from all sources in 24 hours Given 02/10/2025 5:34 AM EDT 1 tablet insulin glargine-yfgn (SEMGLEE) solution 15 Units 15 Units Every morning, subcutaneous, First dose (after last modification) on 02/13/25 at 0830 Given 02/13/2025 9:09 AM EDT 15 Units Abdominal Tissue insulin glargine-yfgn (SEMGLEE) solution 7 Units 7 Units Every morning, subcutaneous, First dose on 02/11/25 at 1500 Given 02/12/2025 5:31 AM EDT 7 Units Abdominal Tissue Given 02/11/2025 4:07 PM EDT 7 Units Le ft Arm insulin lispro (HUMALOG, ADMELOG) injection 0-6 Units 0-6 Units 4 times daily (before meals and nightly), subcutaneous, First dose on Thu02/08/25 at 2100, If Blood Sugar is less than 180 between 0587-1092, DO NOT give corrective insulin unless otherwise [...] than [70] and GREATER than [400] Given 02/13/2025 12:19 PM EDT 5 Units Abdominal Tissue Given 02/13/2025 9:10 AM EDT 4 Units Ab dominal Tissue Given 02/12/2025 8:48 PM EDT 5 Units Ab dominal Tissue isosorbide mononitrate (IMDUR) 24 hr tablet 30 mg 30 mg Daily, oral, First dose on Susanna 02/09/25 at 0900, DO NOT CRUSH THIS DOSAGE FORM Given 02/13/2025 9:08 AM EDT 30 mg Given 02/12/2025 8:52 AM EDT 30 mg Given 02/11/2025 9:48 AM EDT 30 mg lidocaine (LIDODERM) patch 4% 1 patch Every 24 hours, transdermal, Administer over 12 Hours, First dose on Thu02/10/25 at 0600 Patch Applied 02/13/2025 6:34 AM EDT 1 patch Patch Applied 02/12/2025 5:31 AM EDT 1 patch Patch Applied 02/11/2025 5:44 AM EDT 1 patch melatonin tablet 3 mg 3 mg Every Night PRN, oral, insomnia, Starting on Thu02/08/25 at 1832 ondansetron (ZOFRAN) injection 4 mg 4 mg Every 8 hours PRN, intravenous, nausea, vomiting, Starting on Thu02/08/25 at 1832, Give IV if patient is unable to take orally. 1st line If inadequate response within 60 minutes, proceed to next-line agent for same PRN reason or contact provider if no further options ordered. For IV push, give over 2 - 5 minutes. Given 02/12/2025 9: 59 PM EDT 4 mg Given 02/11/2025 7:28 AM EDT 4 mg Given 02/10/2025 6:10 PM EDT 4 mg ondansetron (ZOFRAN-ODT) disintegrating tablet 4 mg 4 mg Every 8 hours PRN, oral, nausea, vomiting, Starting on Thu02/08/25 at 1832, 1st line. If inadequate response within 60 minutes, proceed to next-line agent for same PRN reason or contact provider if no further options ordered. Given 02/13/2025 7:02 PM EDT 4 mg polyethylene glycol (GLYCOLAX) packet 17 g 17 g Daily as needed, oral, constipation, Starting on Thu02/08/25 at 1833, Bowel Regimen - for prevention of constipation. 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 with desiccant until time of use Given 02/13/2025 11:01 AM EDT 10 mg Given 02/12/2025 10:30 AM EDT 10 mg Given 02/11/2025 10:33 AM EDT 10 mg promethazine (PHENERGAN) 12.5 mg in sodium chloride 0.9 % (NS) 50 mL IVPB (Immediate Use Only) 12.5 mg Every 6 hours PRN, intravenous, at 150 mL/hr, nausea, vomiting, 2nd Line, Starting on Thu02/10/25 at 2247, 2nd Line IVPB Started 02/10/2025 11:27 PM EDT 12.5 mg 150 mL/hr promethazine (PHENERGAN) tablet 25 mg 25 mg Every 6 hours PRN, oral, nausea, vomiting use second line, Starting on Thu02/10/25 at 2247 sevelamer (RENAGEL) tablet 800 mg 800 mg 3 times daily with meals, oral, First dose on Thu02/09/25 at 0800, * DO NOT CRUSH THIS DOSAGE FORM * Given 02/13/2025 6:45 PM EDT 800 mg Given 02/13/2025 12:20 PM EDT 800 mg Given 02/13/2025 9:08 AM EDT 800 mg traMADoL (ULTRAM) tablet 50 mg 50 mg Every 6 hours PRN, oral, severe pain (7-10), Starting on Thu02/10/25 at 1759 Given 02/13/2025 9:15 AM EDT 50 m g Given 02/12/2025 8:47 PM EDT 50 mg Given 02/12/2025 8:51 AM EDT 50 mg vancomycin (VANCOCIN) 1,000 mg in sodium chloride 0.9% (NS) non-DEHP 250 mL IVPB 1,000 mg MWF after dialysis (Once per day on Thursday), intravenous, Administer over 60 Minutes, First dose on Thu02/10/25 at 1800, Please choose an indication: Skin/Soft Tissue Infection IVPB Started 02/10/2025 6:55 PM EDT 1,000 mg 250 mL/hr vancomycin (VANCOCIN) 1,500 mg in sodium chloride 0.9 % (NS) 250 mL IVPB 1,500 mg Once, intravenous, Administer over 60 Minutes, On Thu02/08/25 at 1840, For 1 dose, Please choose an indication: Skin/Soft Tissue Infection IVPB Started 02/08/2025 7:20 PM EDT 1,500 mg 250 mL/hr venlafaxine XR (EFFEXOR-XR) 24 hr capsule 37.5 mg 37.5 mg Daily, oral, First dose on Thu02/09/25 at 0900, * DO NOT CRUSH THIS DOSAGE FORM * Given 02/13/2025 9:09 AM EDT 37.5 mg Given 02/12/2025 8:52 AM EDT 37.5 mg Given 02/11/2025 9:48 AM EDT 37.5 mg documented in this encounter Active and Recently Administered Medications Times are shown in EDT. Scheduled Medication Order 02/11/2025 02/12/2025 02/13/2025 amLODIPine (NORVASC) tablet 10 mg 10 mg Daily, oral, First dose on Thu02/09/25 at 0900, Antihypertensive - Check BP - Check Pulse 0949 (Given - Provider: Mak Vizcarra, BENNETT) 0851 (Given - Provider: Yvonne Hawk RN) 0908 (Given - Provider: Yvonne Hawk RN) aspirin EC tablet 81 mg 81 mg Daily, oral, First dose on Thu02/09/25 at 0900, * DO NOT CRUSH THIS DOSAGE FORM * 0948 (Given - Provider: Mak Vizcarra RN) 0851 (Given - Provider: Yvonne Hawk RN) 0908 (Given - Provider: Yvonne Hawk, BENNETT) atorvastatin (LIPITOR) tablet 40 mg 40 mg Every Night, oral, First dose on Thu02/08/25 at 2100 2139 (Given - Provider: Curtis Gibbons, BENNETT) 2047 (Given - Provider: Martin Parra, BENNETT) carvediloL (COREG) tablet 12.5 mg 12.5 mg 2 times daily, oral, First dose on Thu02/08/25 at 2100, Hold for systolic BP < 90 mmHg or for HR < 50 BPM 0948 (Given - Provider: Mak Vizcarra RN)2140 (Given - Provider: Curtis Gibbons, BENNETT) 0852 (Given - Provider: Yvonne Hawk, BENNETT)2046 (Given - Provider: Martin Parra, BENNETT) 0908 (Given - Provider: Yvonne Hawk, BENNETT) ceFAZolin (ANCEF) 1 g in sodium chloride 0.9 % (NS) 50 mL BLANCA IVPB (CANCELED) 1 g Every 24 hours, intravenous, Administer over 30 Minutes, First dose on Thu02/10/25 at 1600, Please choose an indication: Skin/Soft Tissue Infection 1606 (IVPB Started - Provider: Noman Galvan, RN)1633 (IVPB Stopped - Provider: Mak Vizcarra, BENNETT) gabapentin (NEURONTIN) capsule 300 mg 300 mg Every Night, oral, First dose on Thu02/08/25 at 2100 2140 (Given - Provider: Curtis Gibbons, RN) 2047 (Given - Provider: Martin Parra, RN) heparin injection 5,000 Units 5,000 Units Every 8 hours scheduled, subcutaneous, First dose on Susanna 02/09/25 at 1530 0544 (Given - Provider: Curtis Gibbons, BENNETT)1214 (Given - Provider: Mak Vizcarra, RN)2140 (Given - Provider: Curtis Gibbons, BENNETT) 0531 (Given - Provider: Curtis Gibbons RN)1215 (Given - Provider: Yvonne Hawk RN)2048 (Given - Provider: Martin Parra, BENNETT) 0633 (Given - Provider: Martin Parra, BENNETT)1220 (Given - Provider: Yvonne Hawk, BENNETT) insulin glargine-yfgn (SEMGLEE) solution 15 Units 15 Units Every morning, subcutaneous, First dose (after last modification) on 02/13/25 at 0830 0909 (Given - Provider: Yvonne Hawk, BENNETT) insulin glargine-yfgn (SEMGLEE) solution 7 Units (CANCELED) 7 Units Every morning, subcutaneous, First dose on 02/11/25 at 1500 1607 (Given - Provider: Noman Galvan, BENNETT) 0531 (Given - Provider: Curtis Gibbons RN) insulin lispro (HUMALOG, ADMELOG) injection 0-6 Units 0-6 Units 4 times daily (before meals and nightly), subcutaneous, First dose on Thu02/08/25 at 2100, If Blood Sugar is less than 180 between [id number], DO NOT give corrective insulin unless otherwise [...] LESS than [70] and GREATER than [400] 0739 (Given - Provider: Mak Vizcarra RN)1214 (Given - Provider: Mak Vizcarra RN)1830 (Given - Provider: Mak Vizcarra, BENNETT)2141 (Given - Provider: Curtis Gibbons, BENNETT) 0859 (Given - Provider: Yvonne Hawk RN)1215 (Given - Provider: Yvonne Hawk RN)1637 (Given - Provider: Yvonne Hawk RN)2048 (Given - Provider: Martin Parra, BENNETT) 0910 (Given - Provider: Yvonne Hawk RN)1219 (Given - Provider: Yvonne Hawk RN)1802 (Not Given - Provider: Yvonne Hawk RN - Reason: Patient not available - Comment: in dialysis) isosorbide mononitrate (IMDUR) 24 hr tablet 30 mg 30 mg Daily, oral, First dose on Thu02/09/25 at 0900, DO NOT CRUSH THIS DOSAGE FORM 0948 (Given - Provider: Mak Vizcarra RN) 0852 (Given - Provider: Yvonne Hawk RN) 0908 (Given - Provider: Yvonne Hawk RN) lidocaine (LIDODERM) patch 4% 1 patch Every 24 hours, transdermal, Administer over 12 Hours, First dose on Thu02/10/25 at 0600 0544 (Patch Applied - Provider: Curtis Gibbons RN)1732 (Patch Removed - Provider: Mak Vizcarra RN) 0531 (Patch Applied - Provider: Curtis Gibbons RN)1801 (Patch Removed - Provider: Yvonne Hawk RN) 0634 (Patch Applied - Provider: Martin Parra RN)1844 (Patch Removed - Provider: Yvonne Hawk RN) 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 with desiccant until time of use 1033 (Given - Provider: Mak Vizcarra RN) 1030 (Given - Provider: Yvonne Hawk RN) 1101 (Given - Provider: Yvonne Hawk RN) sevelamer (RENAGEL) tablet 800 mg 800 mg 3 times daily with meals, oral, First dose on Thu02/09/25 at 0800, * DO NOT CRUSH THIS DOSAGE FORM * 0948 (Given - Provider: Mak Vizcarra RN)1213 (Given - Provider: Mak Vizcarra, BENNETT)1830 (Given - Provider: Mak Vizcarra RN) 0853 (Given - Provider: Yvonne Hawk RN)1212 (Given - Provider: Yvonne Hawk RN)1637 (Given - Provider: Yvonne Hawk RN) 0908 (Given - Provider: Yvonne Hawk RN)1220 (Given - Provider: Yvonne Hawk RN)1845 (Given - Provider: Yvonne Hawk RN) vancomycin (VANCOCIN) 1,000 mg in sodium chloride 0.9% (NS) non-DEHP 250 mL IVPB 1,000 mg MWF after dialysis (Once per day on Thursday), intravenous, Administer over 60 Minutes, First dose on Thu02/10/25 at 1800, Please choose an indication: Skin/Soft Tissue Infection 1908 (Not Given - Provider: Yvonne Hawk RN - Reason: Patient not available) venlafaxine XR (EFFEXOR-XR) 24 hr capsule 37.5 mg 37.5 mg Daily, oral, First dose on Thu02/09/25 at 0900, * DO NOT CRUSH THIS DOSAGE FORM * 0948 (Given - Provider: Mak Vizcarra RN) 0852 (Given - Provider: Yvonne Hawk RN) 0909 (Given - Provider: Yvonne Hawk RN) PRN Medication Order 02/11/2025 02/12/2025 02/13/2025 acetaminophen (TYLENOL) tablet 500 mg 500 mg Every 6 hours PRN, oral, mild pain (1-3), fever greater than or equal to 38C, Starting on Susanna 02/09/25 at 1046, Recommended maximum dose of acetaminophen is 4000 mg from all sources in 24 hours baclofen (LIORESAL) tablet 5 mg 5 mg Every Night PRN, oral, muscle spasms, Starting on Susanna 02/09/25 at 1046 2144 (Given - Provider: Curtis Gibbons, RN) 2046 (Given - Provider: Martin Parra RN) bisacodyL (DULCOLAX) EC tablet 10 mg(Linked Group 1) 10 mg Daily as needed, oral, constipation, Starting on Thu02/08/25 at 1832, 1st line for treatment of constipation - give scheduled if no bowel movement in past 24 hours. See suppository order and give rectally if not able to take PO. bisacodyL (DULCOLAX) suppository 10 mg(Linked Group 1) 10 mg Daily as needed, rectal, constipation, Starting on Thu02/08/25 at 1832, 1st line for treatment of constipation - give scheduled if no bowel movement in past 24 hours. Give suppository rectally if unable to take PO. dextrose 50% (D50W) injection 25 g 25 g Every 15 min PRN, intravenous, low blood glucose (specify value in prn comments), less than 41 mg/dL or 41-69 mg/dL and unable to take PO, Starting on Thu02/08/25 at 2034, Repeat blood glucose every 15 minutes until blood glucose greater than 70 mg/dL. Call Provider if not resolved after 2 treatments Repeat BS in 1 hour, retime for 1 hour after blood sugar greater than 70 mg/dL If less than 41: Repeat Finger stick within 5 minutes with same machine Send serum glucose level: Do not wait on lab to treat glucagon injection 1 mg 1 mg Every 15 min PRN, intraMUSCULAR, low blood glucose (specify value in prn comments), For Patients without IV access and blood glucose 41-69 mg/dL AND unable to take PO OR Less than 41 mg/dL, Starting on Thu02/08/25 at 2034, Caution: glucagon . Roll patient on their side when administering to prevent aspiration. Call Provider if not resolved after 2 treatments Repeat BS in 1 hour, retime for 1 hour after blood sugar greater than 70 mg/dL glucose chew tab 16 g 16 g Every 15 min PRN, oral, low blood glucose (specify value in prn comments), 41-69 mg/dL, Starting on Thu02/08/25 at 203, For Patients who can take oral AND [...] hypertension (sbp greater than 160), Starting on Thu02/08/25 at 1832, Hold if SBP < 100 mmHg, DBP < 50 mmHg, or patient is on pressor. Look-alike/Sound-alike medication melatonin tablet 3 mg 3 mg Every Night PRN, oral, insomnia, Starting on Thu02/08/25 at 183 ondansetron (ZOFRAN) injection 4 mg(Linked Group 2) 4 mg Every 8 hours PRN, intravenous, nausea, vomiting, Starting on Thu02/08/25 at 1832, Give IV if patient is unable to take orally. 1st line If inadequate response within 60 minutes, proceed to next-line agent for same PRN reason or contact provider if no further options ordered. For IV push, give over 2 - 5 minutes. 727 (Given - Provider: Mak Vizcarra RN) 2158 (Given - Provider: Martin Parra RN) 1901 (See Alternative - Provider: Yvonne Hawk, BENNETT) ondansetron (ZOFRAN-ODT) disintegrating tablet 4 mg(Linked Group 2) 4 mg Every 8 hours PRN, oral, nausea, vomiting, Starting on Thu02/08/25 at 1832, 1st line. If inadequate response within 60 minutes, proceed to next-line agent for same PRN reason or contact provider if no further options ordered. 28 (See Alternative - Provider: Mka Vizcarra RN) 2158 (See Alternative - Provider: Martin Parra RN) 1901 (Given - Provider: Yvonne Hawk, BENNETT) polyethylene glycol (GLYCOLAX) packet 17 g 17 g Daily as needed, oral, constipation, Starting on Thu02/08/25 at 1833, Bowel Regimen - for prevention of constipation. promethazine (PHENERGAN) 12.5 mg in sodium chloride 0.9 % (NS) 50 mL IVPB (Immediate Use Only) 12.5 mg Every 6 hours PRN, intravenous, at 150 mL/hr, nausea, vomiting, 2nd Line, Starting on Thu02/10/25 at 2247, 2nd Line 0113 (IVPB Stopped - Provider: Curtis Gibbosn, BENNETT) promethazine (PHENERGAN) tablet 25 mg 25 mg Every 6 hours PRN, oral, nausea, vomiting use second line, Starting on Thu02/10/25 at 2247 traMADoL (ULTRAM) tablet 50 mg 50 mg Every 6 hours PRN, oral, severe pain (7-10), Starting on Thu02/10/25 at 1759 0851 (Given - Provider: Yvonne Hawk, BENNETT)2047 (Given - Provider: Martin Parra RN) 0915 (Given - Provider: Yvonne Hawk RN) Linked Groups Order Group 1: bisacodyL (DULCOLAX) EC tablet 10 mgJump to med 10 mg Daily as needed, oral, constipation, Starting on Thu02/08/25 at 1832, 1st line for treatment of constipation - give scheduled if no bowel movement in past 24 hours. See suppository order and give rectally if not able to take PO. Or bisacodyL (DULCOLAX) suppository 10 mgJump to med 10 mg Daily as needed, rectal, constipation, Starting on Thu02/08/25 at 1832, 1st line for treatment of constipation - give scheduled if no bowel movement in past 24 hours. Give suppository rectally if unable to take PO. Group 2: ondansetron (ZOFRAN-ODT) disintegrating tablet 4 mgJump to med 4 mg Every 8 hours PRN, oral, nausea, vomiting, Starting on Thu02/08/25 at 1832, 1st line. If inadequate response within 60 minutes, proceed to next-line agent for same PRN reason or contact provider if no further options ordered. Or ondansetron (ZOFRAN) injection 4 mgJump to med 4 mg Every 8 hours PRN, intravenous, nausea, vomiting, Starting on Thu02/08/25 at 1832, Give IV if patient is unable to take orally. 1st line If inadequate response within 60 minutes, proceed to next-line agent for same PRN reason or contact provider if no further options ordered. For IV push, give over 2 - 5 minutes. 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
--- OUTSIDE RECORDS SUMMARY | 2025-03-01 06:52 | XMS_ITS | Encounter Summary ---
Author Organization [employer] ([place], [place], [place], [place]) Address [address] [place] [address] Care Team Providers Care Outgoing Inspector Name Role Phone Wally Yoo MD Primary Care Provider [phone] Encounter Details Date Type Department Care Team (Latest Contact Info) Description 02/08/2025 Travel Social History Tobacco Use Types Packs/Day [...] harm? Never 02/09/2025 How often does anyone, josué [...] Do you speak a language other than [place] at [facility]? No 02/09/2025 Do you want help with [...] documented as of this encounter Care Teams Outgoing Inspector Relationship Specialty Start Date End Date Wally Yoo MD [address] [place] [address] PCP - General Family Medicine 01/11/25 documented as of this encounter
--- OUTSIDE RECORDS SUMMARY | 2025-03-01 06:53 | XMS_ITS | Encounter Summary ---
Author Organization [employer] ([place], [place], [place], [place]) Address [address] [place] [address] Care Team Providers Care Election Supervisor Name Role Phone Unavailable Primary Care Provider [...] Date Earl rded Speak language other than Welsh at home Not on file 08/11/2023 Want [...]
--- OUTSIDE RECORDS SUMMARY | 2025-03-01 06:53 | XMS_ITS | Clinical Summary ---
Author Organization [facility] Address [address] [place] [address] [address] [place] [id number] Phone Care Team Providers Care Psych Np Name Role Phone Unavailable Unavailable Conditions or Problems No information available. Medications No information available. Medications Administered No information available. Allergies, Adverse Reactions, Alerts No information available. Results No information available. Plan of Care No information available. Procedures No information available. Vital Signs No information available. Immunizations No information available. Advance Directives No information available.
--- OUTSIDE RECORDS SUMMARY | 2025-03-01 06:53 | XMS_ITS | Referral Summary ---
Author Organization [facility] ([place], [place], [place], [place]) Address [address] [place] [address] Care Team Providers Care Paradi Tender Name Role Phone Wally Yoo MD Primary Care Provider [phone] Encounters Date Type Department Care Team Description 02/08/2025 3:54 PM EDT - 02/13/2025 8:47 PM EDT Hospital Encounter [facility] 4 Interventional Care Unit 1 [place] [id number] Yuri Ocampo DO Elliott, Jayden, PA-C Lewis, Paige, MD Zohary, Yasser, MD Surgical site infection (Primary Dx) Discharge Disposition: Administration Specialist Care 02/08/2025 Travel 01/11/2025 11:35 AM EDT - 01/14/2025 4:17 PM EDT Hospital Encounter [facility] 3B Unit 1 [place] [address] Benedict Fleming MD Elliott, Jayden, PA-C Siddiqi, Ismaeel, DO Elbita, Omar, MD Ali, Amjad, MD Generalized weakness (Primary Dx); Primary hypertension; Nausea and vomiting, unspecified vomiting type; Chronic renal failure, unspecified CKD stage Discharge Disposition: Home or Self Care 01/11/2025 Travel 01/10/2025 Travel 01/10/2025 1:51 PM EDT Anesthesia Event [facility] Operating Room 1 [place] [address] Pro Barr MD Littles, Joel T, MD 01/10/2025 10:59 AM EDT - 01/10/2025 12:[address] [facility] Operating Room 1 [place] [address] Baljinder Sloan MD LEFT IJ tunneled catheter exchanged RIGHT brachiocephalic arteriovenous fistula creation 01/10/2025 12:29 PM EDT - 01/10/2025 5:38 PM EDT Hospital Encounter [facility] Operating Room 1 [place] [address] Baljinder Sloan MD Discharge Disposition: Home or Self Care from Last 3 Months Allergies Active Allergy Reactions Criticality Noted Date Comments Sulfa (Sulfonamide Antibiotics) 10/10/2022 Oxycodone-Acetaminophen Nausea Only 10/10/2022 Pt states she can tolerate hydrocodone (verified 12/19/22) Medications amLODIPine (NORVASC) 10 MG tablet Take 1 tablet (10 mg total) by mouth daily. 12/13/19 Active aspirin 81 MG EC tablet Take 1 tablet (81 mg total) by mouth daily. 12/02/19 Active atorvastatin (LIPITOR) 40 MG tablet Take 1 tablet (40 mg total) by mouth nightly. 12/04/19 Active carvediloL (COREG) 12.5 MG tablet Take 1 tablet (12.5 mg total) by mouth 2 (two) times daily. 12/07/19 Active isosorbide mononitrate (IMDUR) 30 MG 24 [...] (37.5 mg total) by mouth daily. Active pseudoephedrine (Sudogest) 60 MG tablet Take 1 [...] (180 mg total) by mouth daily. Active diphenhydrAMINE (BENADRYL) 25 mg tablet Take 1 tablet (25 mg total) by mouth 3 (three) times daily as needed for itching. Active calcitonin, salmon, (MIACALCIN) 200 unit/actuation nasal spray [place] 1 spray into one nostril daily. Active calcium carbonate 600mg (Caltrate) 600 mg calcium (1,500 mg) tab Take 1 tablet (1,500 mg total) by mouth daily. 04/10/20 24 Active prasugreL (EFFIENT) 10 mg tab tablet Take 1 tablet (10 mg total) by mouth daily. 02/10/20 24 Active epoetin gia (Procrit) 20,000 unit/2 mL [...] times daily before meals Sliding scale. Active gabapentin (NEURONTIN) 300 MG capsule Take 1 capsule (300 mg total) by mouth nightly. 02/04/20 24 025 Discontinued gabapentin (NEURONTIN) 300 MG capsule Take 1 capsule (300 mg total) by mouth nightly for 3 days. Max Daily Amount: 300 mg 3 capsule 02/14/20 25 025 vancomycin (VANCOCIN) 1000 mg in sodium chloride 0.9 % (NS) 250 mL ADD EASE IVPB Infuse 1,000 mg into a venous catheter 3 (three) times a week after dialysis MON/WED/FRI for 14 days. 02/14/20 25 025 Active Problems Problem Noted Date Diagnosed Date Surgical site infection 02/08/2025 Persistent vomiting in adult patient 01/11/2025 Cardiac [...] Anxiety 07/20/2023 01/19/2024 GERD (gastroesophageal reflux disease) 3 01/19/2024 SHAYLA (obstructive sleep apnea) 07/20/2023 Other pericardial effusion (noninflammatory) 08/2022 Pleural effusion 12/17/2022 Pericardial effusion 12/17/2022 Nausea 11/04/2022 Anaphylactic shock, unspecified, initial encount er 10/08/2022 Anemia in chronic kidney disease 10/06/2022 Chronic kidney disease, unspecified 10/06/2022 Dependence on renal dialysis 10/06/2022 Depression, unspecified 10/06/2022 Hyperlipidemia, unspecified 10/06/2022 Iron deficiency anemia, unspecified 10/06/2022 alf (current) use of insulin 10/06/2022 Morbid (severe) [...] your living situation today? I have a [facility] place to live 02/09/2025 Think about the [...] Do you speak a language other than [place] at [facility]? No 02/09/2025 Do you want help [...] AM CDT Sexual Orientation Not on file Last Filed Vital Signs Vital Sign Reading Time Taken Comments Blood Pressure 120/70 02/13/2025 11:25 AM EDT Pulse 74 02/13/2025 11:25 AM EDT Temperature 36.6 C (97.9 F) 02/13/2025 11:25 AM EDT Respiratory Rate 17 02/13/2025 11:25 AM EDT Oxygen Saturation 96% 02/13/2025 11:25 AM EDT Inhaled Oxygen Concentration 40% 07/24/2024 1 1:45 PM EST Weight 121.6 kg (268 lb) 02/08/2025 3:58 PM EDT Height 167.6 cm (5' 6 ) 02/08/2025 3:58 PM EDT Body Mass Index 43.26 02/08/2025 3:58 PM EDT Plan of Treatment Not on file Medical Devices Implanted Type Area Manufacturing Lab Technician Device Identifier Shelf Expiration Date Model / Serial / Lot Scr + Lt Silvina 5.5 Ti - 75mm - [id number] Implanted:Qty : 1 on 08/10/[address] [facility] IMPLANTS Left: Leg SYNTHES TRAUMA 5 / 5 / Plt Femur 4 Hole Left 120.551 - [id number] Implanted:Qty : 1 on 08/10/[address] [facility] IMPLANTS Left: Leg SYNTHES TRAUMA 120.55 1 / 1 / Scr Crtx D/L St 4.5x52 Ti Ns 414.852 - [id number] Implanted:Qty : 1 on 08/10/[address] [facility] IMPLANTS Left: Leg SYNTHES TRAUMA 414.852 / 414.852 / Scr Kirstin Hd St 5.3ase63yh Ti 413.370 - [id number] Implanted:Qty : 1 on 08/10/[address] [facility] IMPLANTS Left: Leg SYNTHES TRAUMA 413.370 / 413.370 / Scr Kirstin Head [id number] Ti 413.380 - [id number] Implanted:Qty : 1 on 08/10/[address] [facility] IMPLANTS Left: Leg SYNTHES TRAUMA 413.380 / 413.380 / Scr Kirstin Head [id number] Ti 413.365 - [id number] Implanted:Qty : 1 on 08/10/[address] [facility] IMPLANTS Left: Leg SYNTHES TRAUMA 413.365 / 413.365 / Scr Kirstin Head [id number] Ti 413.350 - [id number] Implanted:Qty : 2 on 08/10/[address] [facility] IMPLANTS Left: Leg SYNTHES TRAUMA 413.350 / 413.350 / Scr Lck 5.0x46mm Ti 413.346 - [id number] Implanted:Qty : 1 on 08/10/[address] [facility] IMPLANTS Left: Leg SYNTHES TRAUMA 413.346 / 413.346 / Washer For 5.5 Silvina Scr + 5pk 04.353.906.05 - [id number] Implanted:Qty : 2 on 08/10/[address] [facility] IMPLANTS Left: Leg SYNTHES TRAUMA 04.353.90 6.05 / 04.353.90 6.05 / Scr + Lt Silvina 5.5 Ti - 65mm 04.354.665 - [id number] Implanted:Qty : 1 on 08/10/[address] [facility] IMPLANTS Left: Leg SYNTHES TRAUMA 04.354.66 5 / 04.354.66 5 / Grft Vasc Collagen [id number] Ag616 - [id number] Implanted:Qty : 1 on 01/19/2024 by Baljinder Sloan MD at [facility] IMPLANTS Left: Arm Upper ARTEGRAFT [id number] 02/28/2024 AG616 / 0000 / [id number] Explanted Type Area Manufacturing Lab Technician Device Identifier Shelf Expiration Date Model / Serial / Lot Scr Kirstin Hd Slf Tap 5.0x90mm Ti 413.390 - [id number] Explanted:Qty: 1 on 08/10/[address] [facility] IMPLANTS Left: Leg SYNTHES TRAUMA 413.390 / 413.390 / Scr + Lt Silvina 5.5 Ti - 55mm 04.354.655 - [id number] Explanted:Qty: 1 on 08/10/[address] [facility] IMPLANTS Left: Leg SYNTHES TRAUMA 04.354.655 / 04.354.655 / Scr Kirstin Head 5.0itt20hk Ti 413.355 - [id number] Explanted:Qty: 1 on 08/10/[address] [facility] IMPLANTS Left: Leg SYNTHES TRAUMA 413.355 / 413.355 / Procedures Procedure Name Priority Date/Time Associated Diagnosis Comments NOVA GLUCOSE POC Routine 02/13/2025 6:48 PM EDT NOVA GLUCOSE POC Routine 02/13/2025 11:2 2 AM EDT NOVA GLUCOSE POC Routine 02/13/2025 7:37 AM EDT HEPATITIS B SURFACE ANTIGEN Add-On 02/13/2025 5:08 AM EDT CBC W/ AUTO DIFF Routine 02/13/2025 5:08 AM EDT BASIC METABOLIC PANEL Routine 02/13/2025 5:08 AM EDT VANCOMYCIN LEVEL, RANDOM Routine 02/13/2025 5:08 AM EDT NOVA GLUCOSE [...] GLUCOSE POC Routine 02/11/2025 7:36 AM EDT C-REACTIVE PROTEIN Routine 02/11/2025 5: 31 AM EDT CBC W/ AUTO DIFF Routine 02/11/2025 5:31 AM EDT BASIC METABOLIC PANEL Routine 02/11/2025 5:31 AM EDT NOVA GLUCOSE POC Routine 02/10/2025 7:54 PM EDT NOVA GLUCOSE POC Routine 02/10/2025 6:20 PM EDT NOVA GLUCOSE POC Routine 02/10/2025 12:2 3 PM EDT NOVA GLUCOSE POC Routine 02/10/2025 7:52 AM EDT FS_SJH_MODEL_HEMODIA LYSIS INPATIENT Routine 02/10/2025 12:30 AM EDT NOVA GLUCOSE POC Routine 02/09/2025 8:08 PM EDT NOVA GLUCOSE POC Routine 02/09/2025 4:16 PM EDT NOVA GLUCOSE POC Routine 02/09/2025 11:1 6 AM EDT US HEMODIALYSIS ACCESS STAT 02/09/2025 9:30 AM EDT NOVA GLUCOSE POC Routine 02/09/2025 7:32 AM EDT COMPREHENSIVE METABOLIC PANEL STAT 02/09/2025 4:41 AM EDT CBC W/ AUTO DIFF STAT 02/09/2025 4:41 AM EDT WOUND CULTURE [...] BLOOD CULTURE STAT 02/08/2025 4:17 PM EDT C-REACTIVE PROTEIN STAT 02/08/2025 4: 00 PM EDT SEDIMENTATION RATE STAT 02/08/2025 4: 00 PM EDT LACTIC ACID WITH REFLEX STAT 02/08/2025 4:00 PM EDT BASIC METABOLIC PANEL STAT 02/08/2025 4:00 PM EDT CBC W/ AUTO DIFF STAT 02/08/2025 4:00 PM EDT BLOOD CULTURE STAT 02/08/2025 4:00 PM EDT NOVA GLUCOSE POC Routine 01/14/2025 10:4 7 [...] GLUCOSE POC Routine 01/10/2025 4:39 PM EDT MA ARTERIOVENOUS ANASTOMOSIS OPEN DIRECT 01/10/2025 1:50 PM [...] Maintenance Results * (ABNORMAL) Glucose, Nova Meter (02/13/2025 6:48 PM EDT) Only the most recent of32 resultswithin the time period is included. POC-GLUCOSE 208(H) 70 - 110 mg/dL 02/13/2025 6:49 PM EDT [facility] Comment: In the event of poor peripheral blood flow, venous or arterial blood should be used due to the potential of erroneous results. Notified Nurse RBV Assembly Inspector [id number] 02/13/2025 6:49 PM EDT [facility] Blood WHOLE BLOOD / Unknown 02/13/2025 6:48 PM EDT 02/13/2025 6:49 PM EDT Narrative [facility] - 02/13/2025 6:49 PM EDT Assembly Inspector ID is - [id number] us Briana Araiza MD POINT OF CARE TEST ORDERABLES Fi nal Result [facility] [address] [phone] * (ABNORMAL) CBC with automated diff (02/13/2025 5:08 AM EDT) Only the most recent of7 resultswithin the time period is included. WBC 8.1 4.0 - 10.0 K/ L 02/13/2025 5:59 AM EDT [facility] RBC 3.34(L) 3.93 - 5.22 M/ L 02/13/2025 5:59 AM EDT [facility] Hemoglobin 10.7(L) 11.2 - 15.7 GM/DL 02/13/2025 5:59 AM EDT [facility] Hematocrit 32.4(L) 34.1 - 44.9 % 02/13/2025 5:59 AM EDT [facility] MCV 97(H) 79 - 95 fL 02/13/2025 5:59 AM EDT [facility] MCH 32.0 25.6 - 32.2 pg 02/13/2025 5:59 AM EDT [facility] MCHC 33.0 32.2 - 35.5 GM/DL 02/13/2025 5:59 AM EDT [facility] RDW 12.9 11.7 - 14.4 % 02/13/2025 5:59 AM EDT [facility] Platelets 241 140 - 375 K/CU MM 02/13/2025 5:59 AM EDT [facility] MPV 9.7 9.4 - 12.3 fL 02/13/2025 5:59 AM EDT [facility] % Neutros 60 34 - 71 % 02/13/2025 5:59 AM EDT [facility] % Lymphs 29 19 - 52 % 02/13/2025 5:59 AM EDT [facility] % Monos 9 5 - 13 % 02/13/2025 5:59 AM EDT [facility] % Eos 2 1 - 6 % 02/13/2025 5:59 AM EDT [facility] % Baso 1 0 - 1 % 02/13/2025 5:59 AM EDT [facility] NRBC Absolute <0.01 0 - 0.012 K/ul 02/13/2025 5:59 AM EDT [facility] # Neutros 4.82 1.56 - 6.13 K/ L 02/13/2025 5:59 AM EDT [facility] # Lymphs 2.32 1.18 - 3.74 K/ L 02/13/2025 5:59 AM EDT [facility] # Monos 0.70 0.24 - 0.86 K/ L 02/13/2025 5:59 AM EDT [facility] # Eos 0.13 0.04 - 0.36 K/ L 02/13/2025 5:59 AM EDT [facility] # Baso 0.04 0.01 - 0.08 K/ L 02/13/2025 5:59 AM EDT [facility] Immature Granulocytes-Re lative 0.60(H) 0.01 - 0.43 % 02/13/2025 5:59 AM EDT [facility] # IG 0.05(H) 0.00 - 0.03 K/uL 02/13/2025 5:59 AM EDT [facility] Blood Venipuncture / Unknown 02/13/2025 5:08 AM EDT 02/13/2025 5:54 AM EDT Narrative [facility] - 02/13/2025 5:59 AM EDT [...] Blast? Flag noted Atypical Lymph flag noted Briana Araiza MD LAB BLOOD ORDERABLES Final Resul t Performing Organization Address [facility] Co de Phone Number [facility] [address] [phone] * Hepatitis B surface antigen (02/13/2025 5:08 AM EDT) [facility] Hepatitis B surface antigen Nonreactive Nonreactive 02/13/2025 7:19 AM EDT [facility] Blood Venipuncture / Unknown 02/13/2025 5:08 AM EDT 02/13/2025 5:46 AM EDT Nataliya Cain MD LAB BLOOD ORDERABLES Final Resul t Performing Organization Address [facility] de Phone Number [facility] [address] [phone] * Vancomycin level, random (02/13/2025 5:08 AM EDT) [facility] Vancomycin Rm 18.4 0.0 - 40.0 ug/mL 02/13/2025 6:19 AM EDT [facility] Comment: Therapeutic peak: >20 to 40 ug/mL Trough levels: 10 to 20 ug/mL Toxicity: > 80 ug/mL Blood Venipuncture / Unknown 02/13/2025 5:08 AM EDT 02/13/2025 5:46 AM EDT Olegario Varghese PA-C LAB BLOOD ORDERABLES Final R esult Performing Organization Address [facility] Co de Phone Number [facility] [address] [phone] * (ABNORMAL) Basic Metabolic Panel (02/13/2025 5:08 AM EDT) Only the most recent of3 resultswithin the time period is included. [facility] Sodium 135(L) 136 - 145 meq/L 02/13/2025 6:19 AM EDT [facility] Potassium 4.3 3.4 - 5.1 meq/L 02/13/2025 6:19 AM EDT [facility] CO2 25 22 - 29 meq/L 02/13/2025 6:19 AM EDT [facility] Chloride 97(L) 98 - 112 meq/L 02/13/2025 6:19 AM EDT [facility] Glucose 276(H) 74 - 100 mg/dL 02/13/2025 6:19 AM EDT [facility] BUN 35.2(H) 9.8 - 20.1 mg/dL 02/13/2025 6:19 AM EDT [facility] Creatinine 6.77(H) 0.57 - 1.11 mg/dL 02/13/2025 6:19 AM EDT [facility] BUN/Creatinine 5(L) 8 - 20 02/13/2025 6:19 AM EDT [facility] Calcium 7.3(L) 8.4 - 10.2 mg/dL 02/13/2025 6:19 AM EDT [facility] Anion Gap 17(H) 4 - 12 02/13/2025 6:19 AM EDT [facility] eGFR (mL/min/1.73m2) 7(L) >=60 mL/min/1.7 3m2 02/13/2025 6:19 AM EDT [facility] Osmolality Calc 288.0 mOsm/kg 6:19 AM EDT [facility] Blood Venipuncture / Unknown 02/13/2025 5:08 AM EDT 02/13/2025 5:46 AM EDT us Briana Araiza MD LAB BLOOD ORDERABLES Final Resul t [facility] [address] [phone] * (ABNORMAL) C-Reactive Protein (02/11/2025 5:31 AM EDT) Only the most recent of2 resultswithin the time period is included. CRP 11.0(H) 0.0 - 5.0 mg/L 02/11/2025 6:27 AM EDT [facility] Blood Venipuncture / Unknown 02/11/2025 5:31 AM EDT 02/11/2025 5:52 AM EDT us Briana Araiza MD LAB BLOOD ORDERABLES Final Resul t [facility] [address] [phone] * Ultrasound hemodialysis access (02/09/2025 9:30 AM EDT) Anatomical Region Laterality Modality Vascular, Abdomen Vascular Ultra sound 02/09/2025 8:47 AM EDT Narrative 02/09/2025 3:06 PM EDT Vascular Upper Extremities Arterial Duplex Procedure Demographics Patient Name KWADWO Norris Age 54 Patient Number [id number] Gender Female Race Unknown Ethnicity Corporate ID [id number] Height 66 Date of 1970 Weight 268 Accession Number [id number] BSA 2.27 m^2 Room Number 400 BMI 43.26 kg/m^2 Referring Physician ERNST AVILA Physician Tool Grinder Operator Surface OLIVIA Blount Procedure Type of Study: Extremities [...] measured in mm Signature Procedure Note Noman Byrne, - 02/09/2025 Vascular Upper Extremities Arterial Duplex Procedure Demographics Patient Name KWADWO Norris Age 54 Patient Number [id number] Gender Female Race Unknown Ethnicity Corporate ID [id number] Height 66 Date of 1970 Weight 268 Accession Number [id number] BSA 2.27 m^2 Room Number 400 BMI 43.26kg/m^2 Referring Physician ERNST DÍAZ Interpreting ANNEMARIE AVILA Physician Tool Grinder Operator Surface OLIVIA Blount Procedure Type of Study: Extremities [...] VASCULAR ORDERABLES Final Res ult * (ABNORMAL) Comprehensive metabolic panel (02/09/2025 4:41 AM EDT) Only the most recent of4 resultswithin the time period is included. Sodium 142 136 - 145 meq/L 02/09/2025 6:09 AM [facility] Potassium 4.0 3.4 - 5.1 meq/L 02/09/2025 6:09 AM [facility] Chloride 100 98 - 112 meq/L 02/09/2025 6:09 AM [facility] CO2 31(H) 22 - 29 meq/L 02/09/2025 6:09 AM [facility] Calcium 9.0 8.4 - 10.2 mg/dL 02/09/2025 6:09 AM [facility] Glucose 197(H) 74 - 100 mg/dL 02/09/2025 6:09 AM [facility] BUN 29.8(H) 9.8 - 20.1 mg/dL 02/09/2025 6:09 AM [facility] Creatinine 4.72(H) 0.57 - 1.11 mg/dL 02/09/2025 6:09 AM [facility] BUN/Creatinine 6(L) 8 - 20 02/09/2025 6:09 AM [facility] eGFR (mL/min/1.73m2) 10(L) >=60 mL/min/1. 73m2 02/09/2025 6:09 AM [facility] Albumin 3.0(L) 3.5 - 5.0 g/dL 02/09/2025 6:09 AM [facility] Alkaline Phosphatase 175(H) 40 - 150 U/L 02/09/2025 6:09 AM [facility] ALT 35(H) <=34 U/L 02/09/2025 6:09 AM [facility] Comment: ALT2 reagent used for testing does not contain P5P supplementation and therefore may miss ALT elevations in patients with B6 deficiency. This population may be as high as 10% in the [place], with risk factors including malabsorption, drug interactions, and alcoholic hepatitis. AST 28 11 - 34 U/L 02/09/2025 6:09 AM [facility] Comment: AST2 reagent used for testing does not contain P5P supplementation and therefore may miss AST elevations in patients with B6 deficiency. This population may be as high as 10% in the [place], with risk factors including malabsorption, drug interactions, and alcoholic hepatitis. Total Bilirubin 0.4 0.2 - 1.2 mg/dL 02/09/2025 6:09 AM [facility] Protein, Total 6.6 6.4 - 8.3 g/dL 02/09/2025 6:09 AM [facility] Globulin 3.6 2.5 - 4.1 g/dL 02/09/2025 6:09 AM [facility] Anion Gap 15(H) 4 - 12 02/09/2025 6:09 AM [facility] A/G Ratio 0.8 0.7 - 1.9 02/09/2025 6:09 AM [facility] Osmolality Calc 294.7 mOsm/kg 6:09 AM [facility] Blood Venipuncture / Unknown 02/09/2025 4:41 AM EDT 02/09/2025 5:46 AM EDT Olegario Varghese PA-C LAB BLOOD ORDERABLES Final R esult [facility] [address] [place] [address], [facility] [phone] * (ABNORMAL) Wound Culture + Gram Stain (02/08/2025 11:19 PM EDT) Result Moderate Growth Methicillin resistant Staphylococcus aureus(A) 02/12/2025 8:05 AM EDT [facility] Comment:Resistant organism r equires isolation protocol. Result Moderate Growth Staphylococcus epidermidis(A) 02/12/2025 8:05 AM EDT [facility] Gram Stain Result No cells seen 02/12/2025 8:05 AM EDT [facility] Gram Stain Result Few gram positive cocci in pairs and clusters 02/12/2025 8:05 AM EDT [facility] Gram Stain Result Few gram positive cocci 02/12/2025 8:05 AM EDT [facility] Wound RIGHT UPPER ARM STRUCTURE [...] MICROBIOLOGY - GENERAL ORDER EAN Final Result [facility] [address] [phone] * CT upper extremity without contrast right [...] Hold for add-ons. 02/08/2025 6:01 PM EDT [facility] Comment:Auto resulted. Blood Venipuncture / Unknown 02/08/2025 4:17 PM EDT 02/08/2025 4:20 PM EDT Loco Cortes MD LAB BLOOD ORDERABLES Final Res ult Performing Organization Address [facility] Co de Phone Number [facility] [address] [phone] * Blue Top Extra Tubes (02/08/2025 4:17 PM EDT) HOLD SPECIMEN (SJ - BKR) Hold for add-ons. 02/08/2025 6:01 PM EDT [facility] Comment:Auto resulted. Blood Venipuncture / Unknown 02/08/2025 4:17 PM EDT 02/08/2025 4:20 PM EDT Loco Cortes MD LAB BLOOD ORDERABLES Final Res ult [facility] [address] [phone] * Blood Culture (02/08/2025 4:17 PM EDT) Only the most recent of4 resultswithin the time period is included. Result No growth in 5 days 02/13/2025 5:00 PM EDT [facility] Blood ENTIRE RIGHT UPPER ARM / Unknown Venipuncture / Unknown 02/08/2025 4:17 PM EDT 02/08/2025 4:20 PM EDT Narrative [facility] - 02/13/2025 5:00 PM EDT Blood volume is not within specification. May compromise patient blood culture results. us Díaz Ocampo DO MICROBIOLOGY - GENERAL ORDERABLE S Final Result Performing Organization Address City/[facility]/ZIP Co de Phone Number [facility] [address] [phone] * Lactic Acid with reflex (SJ) (02/08/2025 4:00 PM EDT) Only the most recent of2 resultswithin the time period is included. Lactic Acid Level (mmol/L) 1.7 0.5 - 2.2 mmol/L 02/08/2025 4:39 PM EDT [facility] Blood Venipuncture / Unknown 02/08/2025 4:00 PM EDT 02/08/2025 4:20 PM EDT [place] LAB BLOOD ORDERABLES Final Resul t Performing Organization Address [facility] Co de Phone Number [facility] [address] [phone] * (ABNORMAL) Sedimentation rate (02/08/2025 4:00 PM EDT) Sed Rate 35(H) 0 - 30 mm/HR 02/08/2025 4:43 PM EDT [facility] Blood Venipuncture / Unknown 02/08/2025 4:00 PM EDT 02/08/2025 4:20 PM EDT [employer] LAB BLOOD ORDERABLES Final Resul t Performing Organization Address [facility] Co de Phone Number [facility] [address] [phone] * Magnesium (01/14/2025 6:14 AM EDT) Only the most recent of3 resultswithin the time period is included. Magnesium 1.8 1.6 - 2.6 mg/dL 01/14/2025 6:58 AM EDT [facility] Blood Venipuncture / Unknown 01/14/2025 6:14 AM EDT 01/14/2025 6:27 AM EDT us Gabino Esteban MD LAB BLOOD ORDERABLES Final Resul t Performing Organization Address City/[facility] Co de Phone Number [facility] [address] [place] [address] * Phosphorus (01/13/2025 9:53 AM EDT) Phosphorus 3.1 2.5 - 4.5 mg/dL 01/13/2025 10:39 AM EDT [facility] Blood Venipuncture / Unknown 01/13/2025 9:53 AM EDT 01/13/2025 10:11 AM EDT us Gabino Esteban MD LAB BLOOD ORDERABLES Final Resul t Performing Organization Address [facility] [facility] de Phone Number [facility] [address] [place] [address] * CT ABDOMEN/PELVIS WITHOUT IV CONTRAST Standard [...] ATRIAL RATE (MCT) 106 BPM GE MUSE MA Interval 164 ms GE MUSE QRS-INTERVAL (MSEC) 84 ms GE MUSE QT Interval 332 ms GE MUSE QTC Interval 432 ms GE MUSE P [place] 54 degrees GE MUSE R AXIS (MCT) 20 degrees GE MUSE T Wave [place] 44 degrees GE MUSE [place] Diagnosis Age and gender specific ECG analysis [...] Negative Negative, Invalid 01/11/2025 12:40 PM EDT [facility] Nasal Swab (Nasal) 01/11/2025 11:48 AM EDT 01/11/2025 11:56 AM EDT [facility] - 01/11/2025 12:40 PM EDT The [...] Benedict Fleming MD MICROBIOLOGY - [facility] Final Result [facility] [address] [phone] * High Sensitivity Troponin I (01/11/2025 11:48 AM EDT) Troponin I High Sensitivity (pg/mL) <5.0 <=14 pg/mL 01/11/2025 12:32 PM EDT [facility] Blood Venipuncture / Unknown 01/11/2025 11:48 AM EDT 01/11/2025 11:56 AM EDT [facility] - 01/11/2025 12:32 PM EDT Applicable to [facility] only. Effective October 25 the lab will begin using a new chemistry analyzer. HsTroponin methodology, reference ranges and critical values have changed. Benedict Fleming MD LAB BLOOD ORDERABLES Final Result [facility] [address] [place] [id number], [facility] [phone] * EKG-SCANNED (01/11/2025) Narrative 01/11/2025 Ordered by an unspecified provider. us Default Scanning Provider SCAN ORDERS Final Result * HC PERIPHERAL NERVE BLOCK SINGLE SHOT (01/10/2025 1:30 PM EDT) Agueda Hickman MD - 01/10/2025 1:30 PM EDT Agueda [...] supine Prep: ChloraPrep Patient monitoring: heart rate, equipment monitor phototypesetting and continuous pulse ox Block type: supraclavicular [...] POC (01/10/2025 1:13 PM EDT) Pathologist [facility] POC Sodium 142 138 - 146 mmol/L 01/10/2025 1:23 PM EDT [facility] POC Potassium 4.8 3.5 - 4.9 mmol/L 01/10/2025 1:23 PM EDT [facility] POC Chloride 97(L) 98 - 109 mmol/L 01/10/2025 1:23 PM EDT [facility] POC Glucose 138(H) 70 - 105 mg/dL 01/10/2025 1:23 PM EDT [facility] POC BUN 47(H) 8 - 26 mg/dL 01/10/2025 1:23 PM EDT [facility] POC Anion Gap 14 10 - 20 mmol/L 01/10/2025 1:23 PM EDT [facility] POC IONIZED CALCIUM BENJI 1.18 1.12 - 1.32 mmol/L 01/10/2025 1:23 PM EDT [facility] POC CO2 TOTAL BENJI 36(H) 24 - 29 mmol/L 01/10/2025 1:23 PM EDT [facility] POC-Creatinine 6.3(H) 0.6 - 1.3 mg/dL 01/10/2025 1:23 PM EDT [facility] POC-EGFR 7 mL/min/1.7 3M2 01/10/2025 1:23 PM EDT [facility] Comment:Proceed with contras t if eGFR > 45 ml/min/1.73 when performed on the NovaSTAT strip Creatinine meter. POC HEMATOCRIT BENJI 32(L) 38 - 51 %PCV 01/10/2025 1:23 PM EDT [facility] POC HEMOGLOBIN BENJI 10.9(L) 12.0 - 17.0 g/dL 01/10/2025 1:23 PM EDT [facility] Blood 01/10/2025 1:13 PM EDT 01/10/2025 1:23 PM EDT Narrative [facility] - 01/10/2025 1:23 PM EDT Assembly Inspector ID is - [id number] us Baljinder Sloan MD POINT OF CARE TEST ORDERABLES Fi nal Result [facility] [address] [phone] * (ABNORMAL) Lipid panel (07/19/2024 9:23 AM [...] 07/19/2024 10:14 AM EST us Marycruz Lam MEDICAL WRITER LAB BLOOD ORDERABLES Fi nal Result [facility] [address] [phone] from Last 3 Months or Most Recently Relevant to Health Maintenance Additional Health Concerns Infection Onset Date 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) Comment:02/11/2025 07/23/2024 07/23/2024 Insurance MEDICAID [place] MEDICARE PART A B Advance Directives For more information, please contact: [phone] Documents on File Type Date Recorded Patient Driver Operator Expl anation Advance Directives and Livin g Will 02/09/2025 12:27 PM Living Will * Full Code (Latest Code Status on File) Date Activated Date Inactivated Comments 02/08/2025 5:34 PM 02/13/2025 9:47 PM * Full Code Date Activated Date Inactivated Comments 01/11/2025 2:47 PM 01/14/2025 5:18 PM * Full Code Date Activated Date Inactivated Comments 01/10/2025 12:16 PM 01/10/2025 6:40 PM * Full Code Date Activated Date Inactivated Comments 07/19/2024 9:51 AM 07/26/2024 6:05 PM If no puls e: No intervention If has pulse: Use intubation, mechanical ventilation, defibrillation, ACLS medications, or cardioversion as indicated. Call BLANKET CUTTING MACHINE OPERATOR * Full Code Date Activated Date Inactivated Comments 07/19/2024 5:49 AM 07/19/2024 9:51 AM Healthcare Agents on File Name Relationship [facility] Annette Burkett Daughter Healthcare Decision-Maker Elizabeth Anderson Friend First Alternate Healthcare Decision-Maker Care Teams Paradi Tender Relationship Specialty Start Date End Date Wally Yoo MD [address] [place] [id number] PCP - General Family Medicine 01/11/25
--- OUTSIDE RECORDS SUMMARY | 2025-03-01 06:53 | XMS_ITS | Encounter Summary ---
Author Organization [employer] ([place], [place], [place], [place]) Address [address] [place] [address] Care Team Providers Care [place]. Representative Name Role Phone Wally Yoo MD Primary Care Provider [phone] Encounter Details Date Type Department Care Team [...] Do you speak a language other than [place] [facility]? No 01/12/2025 Do you want help [...] documented as of this encounter Care Teams U.[place]. Representative Relationship Specialty Start Date End Date Wally Yoo MD [address] [place] [address] PCP - General Family Medicine 01/11/25 documented as of this encounter
--- OUTSIDE RECORDS SUMMARY | 2025-03-01 06:53 | XMS_ITS | Encounter Summary ---
Author Organization [employer] ([place], [place], [place], [place]) Address [address] [place] [address] Care Team Providers Care Geosciences Associate Professor Name Role Phone Edgar Nguyen MD Primary Care Provider [phone] Wally Yoo MD Primary Care Provider [phone] Reason for Referral * Interventional Radiology (Routine) - Closed Specialty Diagnoses / Procedures Referred By Contac t Referred To Contact Radiology Diagnoses Acute renal failure, unspecified acute renal failure type (HCC) Procedures IR CENTRAL VENOUS uDnia Pena NP Referral ID Status Reason Start Date Expiration Date Visits Re quested Visits Authorized [id number] Closed 10/08/2022 04/06/2023 1 1 Encounter Details Date Type Department Care Team (Late st Contact Info) Description 10/08/2022 Outside Orders [facility] Central Scheduling [address] [place] [address] Dunia Pena NP Acute renal [...] AM CDT Sexual Orientation Not on file COVID-19 Exposure [...] interpreted, and dictated by Pro Guillory MD us Dunia Pena NP IMG IR ORDERABLES Edited Result - Final documented in this encounter Visit Diagnoses Diagnosis Acute renal failure, unspecified acute renal failure type (HCC)- Primary Acute renal failure, unspecified acute renal failure type (HCC) documented in this encounter Additional Health Concerns Infection Onset Date Last Indicated Resolved Time 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
--- OUTSIDE RECORDS SUMMARY | 2025-03-01 06:53 | XMS_ITS | Clinical Summary ---
Author Organization [employer] ([place], [place], [place], [place]) Address [address] [place] [address] Care Team Providers Care Gas Line Servicer Name Role Phone Wally Yoo MD Primary Care Provider [phone] Allergies Active Allergy Reactions Criticality Noted Date [...] unspecified 10/06/2022 Iron deficiency anemia, unspecified 10/06/2022 FPC (current) use of insulin 10/06/2022 Morbid (severe) [...] - 02/13/2025 8:47 PM EDT Hospital Encounter [facility] 4 Interventional Care Unit 1 [place] [address] Yuri Ocampo DO Elliott, Jayden, PA-C Lewis, Paige, MD Zohary, Yasser, MD Surgical site infection (Primary Dx) Discharge Disposition: Care Home Care 02/08/2025 Travel 01/11/2025 11:35 AM EDT - 01/14/2025 4:17 PM EDT Hospital Encounter [facility] 3B Unit 1 [place] [address] Benedict Fleming MD Elliott, Jayden, Mckenzie Moreira DO Elbita, Omar, MD Ali, Amjad, MD Generalized weakness (Primary Dx); Primary hypertension; Nausea and vomiting, unspecified vomiting type; Chronic renal failure, unspecified CKD stage Discharge Disposition: Home or Self Care 01/11/2025 Travel 01/10/2025 1:51 PM EDT Anesthesia Event [facility] Operating Room 1 [place] [address] Pro Barr MD Littles, Joel T, MD 01/10/2025 12:29 PM EDT - 01/10/2025 5:38 PM EDT Hospital Encounter [facility] Operating Room 1 [place] [address] Baljinder Sloan MD Discharge Disposition: Home or Self Care 01/10/2025 10:59 AM EDT - 01/10/2025 12:29 PM EDT Surgery [facility] Operating Room 1 [place] [address] Baljinder Sloan MD LEFT IJ tunneled catheter [...] you? Never 02/09/2025 How often does anyone, joséu kay family and friends, insult or talk down to you? Never 02/09/2025 How often does anyone, josué kay family and friends, threaten you with harm? Never 02/09/2025 How often does anyone, josué kay family and friends, scream or curse at you? Never 02/09/2025 Housing Stability Answer Date Recorded What is your living situation today? I have a [facility] place to live 02/09/2025 Think about [...] Do you speak a language other than [facility]? No 02/09/2025 Do you want help [...] 02/08/2025 3:58 PM EDT Plan of Treatment Health Maintenance Due Date Last Done Comments Medicare Initial AWV G0438 CT Colonography 1970 Colonoscopy 1970 Colorectal Cancer Screening 1970 FOBT/FIT 1970 Fit-DNA (Cologuard) 1970 Sigmoidoscopy 1970 Diabetic Eye Exam 1980 Depression Screening (12+) 1982 Tobacco Cessation Counseling and Screening (12+) 1982 HIV Screening 1985 Hepatitis C Screening 1988 Pap Smear 1991 Breast Cancer Screening 2010 DTAP/TDAP/TD VACCINES (2 - Td or Tdap) 11/04/2016 Shingles Vaccine (Zoster) (1 of 2) 2020 Hemoglobin A1C 04/20/2023 COVID-19 VACCINE (3 - season) 2024, 04/03/2021 Influenza Vaccine (#1) 2025 05/25/2024, 2022 Lipid Panel 07/19/2027 07/19/2024 Pneumococcal 50+ years Completed 10/18/2022, 2015 Medical Devices Implanted Type Area World Designer Device Identifier Shelf Expiration Date Model / Serial / Lot Scr + Lt Silvina 5.5 Ti - 75mm .5 - [id number] Implanted:Qty : 1 on 08/10/2023 at [facility] IMPLANTS Left: Leg SYNTHES TRAUMA 5 / 04.354.67 5 / Plt Femur 4 Hole Left 120.551 - [id number] Implanted:Qty : 1 on 08/10/2023 at [facility] IMPLANTS Left: Leg SYNTHES TRAUMA 04120.55 1 / 120.55 1 / Scr Crtx D/L St 4.5x52 Ti Ns 414.852 - [id number] Implanted:Qty : 1 on 08/10/2023 at [facility] IMPLANTS Left: Leg SYNTHES TRAUMA 414.852 / 414.852 / Scr Kirstin Hd St [id number] Ti 413.370 - [id number] Implanted:Qty : 1 on 08/10/2023 at [facility] IMPLANTS Left: Leg SYNTHES TRAUMA 413.370 / 413.370 / Scr Kirstin Head 5.7idc34fv Ti 413.380 - [id number] Implanted:Qty : 1 on 08/10/2023 at [facility] IMPLANTS Left: Leg SYNTHES TRAUMA 413.380 / 413.380 / Scr Kirstin Head 5.0gmr46gz Ti 413.365 - [id number] Implanted:Qty : 1 on 08/10/2023 at [facility] IMPLANTS Left: Leg SYNTHES TRAUMA 413.365 / 413.365 / Scr Kirstin Head 5.9yzw36kh Ti 413.350 - [id number] Implanted:Qty : 2 on 08/10/2023 at [facility] IMPLANTS Left: Leg SYNTHES TRAUMA 413.350 / 413.350 / Scr Lck 5.0x46mm Ti 413.346 - [id number] Implanted:Qty : 1 on 08/10/2023 at [facility] IMPLANTS Left: Leg SYNTHES TRAUMA 413.346 / 413.346 / Washer For 5.5 Silvina Scr + 5pk 04.353.906.05 - [id number] Implanted:Qty : 2 on 08/10/2023 at [facility] IMPLANTS Left: Leg SYNTHES TRAUMA 04.353.90 6.05 / 04.353.90 6.05 / Scr + Lt Silvina 5.5 Ti - 65mm 04.354.665 - [id number] Implanted:Qty : 1 on 08/10/2023 at [facility] IMPLANTS Left: Leg SYNTHES TRAUMA 04.354.66 5 / 04.354.66 5 / Grft Vasc Collagen 8irc17bb Ag616 - [id number] Implanted:Qty : 1 on 01/19/2024 by Baljinder Sloan MD at [facility] IMPLANTS Left: Arm Upper ARTEGRAFT [id number] 02/28/2024 AG616 / 0000 / [id number] Explanted Type Area World Designer Device Identifier Shelf Expiration Date Model / Serial / Lot Scr Kirstin Hd Slf Tap 5.0x90mm Ti 413.390 - [id number] Explanted:Qty: 1 on 08/10/2023 at [facility] IMPLANTS Left: Leg SYNTHES TRAUMA 413.390 / 413.390 / Scr + Lt Silvina 5.5 Ti - 55mm .655 - [id number] Explanted:Qty: 1 on 08/10/2023 at [facility] IMPLANTS Left: Leg SYNTHES TRAUMA .655 / 354.655 / Scr Kirstin Head 5.5wxa54cz Ti 413.355 - [id number] Explanted:Qty: 1 on 08/10/2023 at [facility] IMPLANTS Left: Leg SYNTHES TRAUMA 413.355 [...] GLUCOSE POC Routine 01/10/2025 4:39 PM EDT [place] ARTERIOVENOUS ANASTOMOSIS OPEN DIRECT 01/10/2025 1:50 PM [...] of32 resultswithin the time period is included. [facility] POC-GLUCOSE 208(H) 70 - 110 mg/dL 02/13/2025 6:49 PM EDT [facility] Comment: In the event of poor peripheral blood flow, venous or arterial blood should be used due to the potential of erroneous results. Notified Nurse RBV Mingler Operator [id number] 02/13/2025 6:49 PM EDT [facility] Blood WHOLE BLOOD / Unknown 02/13/2025 6:48 PM EDT 02/13/2025 6:49 PM EDT Narrative [facility] - 02/13/2025 6:49 PM EDT Mingler Operator ID is - [id number] us Briana Araiza MD POINT OF CARE TEST ORDERABLES Fi nal Result [facility] [address] [phone] * (ABNORMAL) CBC with automated diff (02/13/2025 5:08 AM EDT) Only the most recent of7 resultswithin the time period is included. [facility] WBC 8.1 4.0 - 10.0 K/ [...] Resul t [facility] [address] [phone] * Hepatitis B surface antigen (02/13/2025 5:08 AM EDT) Hepatitis B surface antigen Nonreactive Nonreactive 02/13/2025 7:19 AM EDT [facility] Blood Venipuncture / Unknown 02/13/2025 5:08 AM EDT 02/13/2025 5:46 AM EDT us Nataliya Cain MD LAB BLOOD ORDERABLES Final Resul t [facility] [address] [phone] * Vancomycin level, random (02/13/2025 5:08 AM EDT) Pathologist [facility] Vancomycin Rm 18.4 0.0 - 40.0 ug/mL 02/13/2025 6:19 AM EDT [facility] Comment: Therapeutic peak: >20 to 40 ug/mL Trough levels: 10 to 20 ug/mL Toxicity: > 80 ug/mL Blood Venipuncture / Unknown 02/13/2025 5:08 AM EDT 02/13/2025 5:46 AM EDT us Olegario Varghese PA-C LAB BLOOD ORDERABLES Final R esult [facility] [address] [phone] * (ABNORMAL) Basic Metabolic Panel (02/13/2025 5:08 AM EDT) Only the most recent of3 resultswithin the time period is included. Pathologist [facility] Sodium 135(L) 136 - 145 meq/L 02/13/2025 [...] Resul t [facility] [address] [phone] * (ABNORMAL) C-Reactive Protein (02/11/2025 5:31 AM EDT) Only the most recent of2 resultswithin the time period is included. CRP 11.0(H) 0.0 - 5.0 mg/L 02/11/2025 6:27 AM EDT [facility] Blood Venipuncture / Unknown 02/11/2025 5:31 AM EDT 02/11/2025 5:52 AM EDT us Briana Araiza MD LAB BLOOD ORDERABLES Final Resul t [facility] [address] [phone] * Ultrasound hemodialysis access (02/09/2025 9:30 AM EDT) Anatomical Region Laterality Modality Vascular, Abdomen Vascular Ultra sound 02/09/2025 8:47 AM EDT Narrative 02/09/2025 3:06 PM EDT Vascular Upper Extremities Arterial Duplex Procedure Demographics Patient Name KWADWO Norris Age 54 Patient Number [id number] Gender Female Race Unknown Ethnicity Corporate ID [id number] Height 66 Date of 1970 Weight 268 Accession Number [id number] BSA 2.27 m^2 Room Number 400 BMI 43.26 kg/m^2 Referring Physician ERNST AVILA Physician Seed Collector OLIVIA Blount Procedure Type of Study: Extremities [...] Name KWADWO Norris Age 54 Patient Number [id number] Gender Female Race Unknown Ethnicity Corporate ID [id number] Height 66 Date of 1970 Weight 268 Accession Number [id number] BSA 2.27 m^2 Room Number 400 BMI 43.26kg/m^2 Referring Physician ERNST AVILA Physician Seed Collector OLIVIA Blount Procedure Type of Study: Extremities [...] 136 - 145 meq/L 02/09/2025 6:09 AM [facility] Potassium 4.0 3.4 - 5.1 meq/L 02/09/2025 6:09 AM [facility] Chloride 100 98 - 112 meq/L 02/09/2025 6:09 AM [facility] CO2 31(H) 22 - 29 meq/L 02/09/2025 6:09 AM [facility] Calcium 9.0 8.4 - 10.2 mg/dL 02/09/2025 6:09 AM [facility] Glucose 197(H) 74 - 100 mg/dL 02/09/2025 6:09 AM [facility] BUN 29.8(H) 9.8 - 20.1 mg/dL 02/09/2025 6:09 AM [facility] Creatinine 4.72(H) 0.57 - 1.11 mg/dL 02/09/2025 6:09 AM [facility] BUN/Creatinine 6(L) 8 - 20 02/09/2025 6:09 AM [facility] eGFR (mL/min/1.73m2) 10(L) >=60 mL/min/1. 73m2 02/09/2025 6:09 AM [facility] Albumin 3.0(L) 3.5 - 5.0 g/dL 02/09/2025 6:09 AM [facility] Alkaline Phosphatase 175(H) 40 - 150 U/L 02/09/2025 6:09 AM [facility] ALT 35(H) <=34 U/L 02/09/2025 6:09 AM [facility] Comment: ALT2 reagent used for testing does not contain P5P supplementation and therefore may miss ALT elevations in patients with B6 deficiency. This population may be as high as 10% in the [place], with risk factors including malabsorption, drug interactions, and alcoholic hepatitis. AST 28 11 - 34 U/L 02/09/2025 6:09 AM [facility] Comment: AST2 reagent used for testing [...] R esult [facility] [address] [phone] * (ABNORMAL) Wound Culture + Gram Stain [...] Final Result [facility] 1 [place] [address], [facility] [phone] * CT upper extremity without contrast right [...] interpreted, and dictated by Nirav Navarro MD us Yuri Ocampo DO IMG CT ORDERABLES Final Result * PST Top Extra Tubes (02/08/2025 4:17 PM EDT) HOLD SPECIMEN (SJ - BKR) Hold for add-ons. 02/08/2025 6:01 PM EDT [facility] Comment:Auto resulted. Blood Venipuncture / Unknown 02/08/2025 4:17 PM EDT 02/08/2025 4:20 PM EDT us Loco Cortes MD LAB BLOOD ORDERABLES Final Res ult [facility] [address] [phone] * Blue Top Extra Tubes (02/08/2025 4:17 PM EDT) HOLD SPECIMEN (SJ - BKR) Hold for add-ons. 02/08/2025 6:01 PM EDT [facility] Comment:Auto resulted. Blood Venipuncture / Unknown 02/08/2025 4:17 PM EDT 02/08/2025 4:20 PM EDT us Loco Cortes MD LAB BLOOD ORDERABLES Final Res ult [facility] [address] [phone] * Blood Culture (02/08/2025 4:17 PM EDT) [...] ORDERABLE S Final Result Performing Organization Address City/[facility]/ZIP Co de Phone Number [facility] [address] [phone] * Lactic Acid with reflex (SJ) (02/08/2025 [...] Resul t Performing Organization Address [facility] Co de Phone Number [facility] [address] [phone] * (ABNORMAL) Sedimentation rate (02/08/2025 4:00 PM EDT) Sed Rate 35(H) 0 - 30 mm/HR 02/08/2025 4:43 PM EDT [facility] Blood Venipuncture / Unknown 02/08/2025 4:00 PM EDT 02/08/2025 4:20 PM EDT Yuri Ocampo DO LAB BLOOD ORDERABLES Final Resul t Performing Organization Address [facility] Co de Phone Number [facility] [address] [phone] * Magnesium (01/14/2025 6:14 AM EDT) Only the most recent of3 resultswithin the time period is included. Magnesium 1.8 1.6 - 2.6 mg/dL 01/14/2025 6:58 AM EDT [facility] Blood Venipuncture / Unknown 01/14/2025 6:14 AM EDT 01/14/2025 6:27 AM EDT us Gabino Esteban MD LAB BLOOD ORDERABLES Final Resul t Performing Organization Address City/[facility] Co de Phone Number [facility] [address] [phone] * Phosphorus (01/13/2025 9:53 AM EDT) Phosphorus 3.1 2.5 - 4.5 mg/dL 01/13/2025 10:39 AM EDT [facility] Blood Venipuncture / Unknown 01/13/2025 9:53 AM EDT 01/13/2025 10:11 AM EDT us Gabino Esteban MD LAB BLOOD ORDERABLES Final Resul t [facility] 1 [place] [address], [facility] [phone] * CT ABDOMEN/PELVIS WITHOUT IV CONTRAST Standard [...] ATRIAL RATE (MCT) 106 BPM GE MUSE [place] Interval 164 ms GE MUSE QRS-INTERVAL (MSEC) 84 ms GE MUSE QT Interval 332 ms GE MUSE QTC Interval 432 ms GE MUSE P Wayne 54 degrees GE MUSE R AXIS (MCT) 20 degrees GE MUSE T Wave [place] 44 degrees GE MUSE Page Diagnosis Age and gender specific ECG analysis Sinus tachycardia Low voltage QRS Borderline ECG When compared with ECG of 21-JUL-2024 08:41, No significant change was found Confirmed by Cruz ADLER MATTHEW ([id number]) on 01/15/2025 9:08:45 AM GE MUSE 01/11/2025 11:5 1 AM EDT 01/15/2025 9:08 AM EDT Beneidct Fleming MD ECG ORDERABLES Final Resul t [...] by Yessica Huerta PA-C. Benedict Fleming MD [facility] Final Result * COVID ANTIGEN (01/11/2025 11:48 AM EDT) SARS COVID ANTIGEN Negative Negative, Invalid 01/11/2025 12:40 PM EDT [facility] Nasal Swab (Nasal) 01/11/2025 11:48 AM EDT 01/11/2025 11:56 AM EDT Narrative [facility] - 01/11/2025 12:40 PM EDT The [...] infection. Benedict Fleming MD MICROBIOLOGY - [facility] Final Result Performing Organization Address [facility] Co de Phone Number [facility] [address] [phone] * High Sensitivity Troponin I (01/11/2025 11:48 AM EDT) Pathologist [facility] Troponin I High Sensitivity (pg/mL) <5.0 <=14 pg/mL 01/11/2025 12:32 PM EDT [facility] Blood Venipuncture / Unknown 01/11/2025 11:48 AM EDT 01/11/2025 11:56 AM EDT Narrative [facility] - 01/11/2025 12:32 PM EDT Applicable to [facility] only. Effective October 25 the lab will begin using a new chemistry analyzer. HsTroponin methodology, reference ranges and critical values have changed. Benedict Fleming MD LAB BLOOD ORDERABLES Final Result Performing Organization Address [facility] Co de Phone Number [facility] [address] [phone] * EKG-SCANNED (01/11/2025) Narrative 01/11/2025 Ordered by [...] supine Prep: ChloraPrep Patient monitoring: heart rate, pvc monitor and continuous pulse ox Block type: supraclavicular Laterality: right Injection technique: single-shot Guidance: ultrasound guided Needle Needle type: Aeglea BioTherapeuticsuplex insulated Echogenic Needle 4 in 20 G. [...] POCT , urine (01/10/2025 1:16 PM EDT) [facility] POC, URINE HCG Negative Negative INTERNAL QC (VALID/INVALID ) Valid Kit Lot Number [id number] Expiration Date 2026-05-31 01/10/2025 1:16 PM EDT Pro Barr MD FS_MODEL_IP_POINT OF CARE TEST ENTER/EDIT ORDERABLES Edited Result - Final * (ABNORMAL) Chem8+ POC (01/10/2025 1:13 PM EDT) Pathologist [facility] POC Sodium 142 138 - 146 mmol/L 01/10/2025 1:23 PM EDT [facility] POC Potassium 4.8 3.5 - 4.9 mmol/L 01/10/2025 1:23 PM EDT [facility] POC Chloride 97(L) 98 - 109 mmol/L 01/10/2025 1:23 PM EDT [facility] POC Glucose 138(H) 70 - 105 mg/dL 01/10/2025 1:23 PM EDT [facility] POC BUN 47(H) 8 - 26 mg/dL 01/10/2025 1:23 PM EDT [facility] POC Anion Gap 14 10 - 20 mmol/L 01/10/2025 1:23 PM EDT [facility] POC IONIZED CALCIUM BENJI 1.18 1.12 - 1.32 mmol/L 01/10/2025 1:23 PM EDT [facility] POC CO2 TOTAL BENJI 36(H) 24 - 29 mmol/L 01/10/2025 1:23 PM EDT [facility] POC-Creatinine 6.3(H) 0.6 - 1.3 mg/dL 01/10/2025 1:23 PM EDT [facility] POC-EGFR 7 mL/min/1.7 3M2 01/10/2025 1:23 PM EDT [facility] Comment:Proceed with contras t if eGFR > 45 ml/min/1.73 when performed on the NovaSTAT strip Creatinine meter. POC HEMATOCRIT BENJI 32(L) 38 - 51 %PCV 01/10/2025 1:23 PM EDT [facility] POC HEMOGLOBIN BENJI 10.9(L) 12.0 - 17.0 g/dL 01/10/2025 1:23 PM EDT [facility] Blood 01/10/2025 1:13 PM EDT 01/10/2025 1:23 PM EDT Narrative [facility] - 01/10/2025 1:23 PM EDT Mingler Operator ID is - [id number] us Baljinder Sloan MD POINT OF CARE TEST ORDERABLES Fi nal Result [facility] [address] [phone] * (ABNORMAL) Lipid panel (07/19/2024 9:23 AM EST) Triglycerides 216 0 - 249 mg/dL 07/19/2024 11:00 AM [facility] Cholesterol 99 0 - 199 mg/dL 07/19/2024 11:00 AM [facility] Comment: 200 to 239 mg/dL = Moderate (borderline) >239 mg/dL = High HDL Cholesterol 32(L) >=40 mg/dL 07/19/2024 11:00 AM [facility] Comment: >=60 mg/dL = Desirable <40 mg/dL = Increased Risk All other components are listed individually or are calculations VLDL Cholesterol 43.2(H) 5 - 40 mg/dL 07/19/2024 11:00 AM [facility] Cholesterol/HDL ratio 3.1 0.0 - 3.2 07/19/2024 11:00 AM [facility] LDl/HDL Ratio 1 0 - 4 07/19/2024 11:00 AM [facility] RISK COMP 3 07/19/2024 11:00 AM [facility] LDL Cholesterol, Calculated 24 0 - 99 mg/dL 07/19/2024 11:00 AM [facility] Blood Venipuncture / Unknown 07/19/2024 9:23 AM EST 07/19/2024 10:14 AM EST us Marycruz Lam PLOW HOLDER LAB BLOOD ORDERABLES Fi nal Result Performing Organization Address City/State/[facility] Co de Phone Number [facility] [address] [phone] from Last 3 Months or Most Recently Relevant to Health Maintenance Additional Health Concerns Infection Onset Date 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) Comment:02/11/2025 07/23/2024 07/23/2024 Insurance MEDICAID [place] MEDICARE PART A B Advance Directives For more information, please contact: [phone] Documents on File Type Date Recorded Patient Product Manager Expl anation Advance Directives and Livin g [...] ACLS medications, or cardioversion as indicated. Call [employer]OM[employer] * Full Code Date Activated Date Inactivated Comments 07/19/2024 5:49 AM 07/19/2024 9:51 AM Healthcare Agents on File Name Relationship [facility] Annette Burkett Daughter Healthcare Decision-Maker Elizabeth Anderson Friend First Alternate Healthcare Decision-Maker Care Teams Gas Line Servicer Relationship Specialty Start Date End Date Wally Yoo MD [address] [place] [address] PCP - General Family Medicine 01/11/25
== END 2025-03-01 23:59 | disposition home or self-care (01) ==
PROVIDERS: PCP Family Medicine; Visit Provider Family Medicine
DX: R69 Illness, unspecified (principal)

== ENCOUNTER 2025-03-14 09:20 | Outpatient (CLI) | payer MEDICARE, MEDICAID, SELFPAY ==
--- OUTSIDE RECORDS SUMMARY | 2025-01-11 11:35 | XMS_ITS | Encounter Summary ---
Author Organization [employer] ([place], [place], [place], [place]) Address [address] [place] [address] Care Team Providers Care Pit Manager Name Role Phone Wally Yoo MD Primary Care Provider [phone] Reason for Visit * Reason Comments Generalized Weakness, Not Associated Wit h Extremities * Auth/Cert (Routine) Specialty Diagnoses / Procedures Referred By Meg kumar Referred To Contact Diagnoses Primary hypertension Persistent vomiting in adult patient Generalized weakness Chronic renal failure, unspecified CKD stage Nausea and vomiting, unspecified vomiting type [address] [place] [address] Phone: tel: fax: [address] [place] [address] Phone: tel: fax: Referral ID Status Reason Start Date Expiration Date Visits Re quested Visits Authorized [id number] 1 1 Encounter Details Date Type Department Care Team (Late st Contact Info) Description 01/11/2025 11:35 AM EDT - 01/14/2025 4:17 PM EDT Hospital Encounter [address] [place] [address] Benedict Fleming MD [address], [place] [id number] Olegario Varghese PA-C [address] [facility] [address] [place] [address] Mckenzie Yang DO [address] [facility] [address] [place] [address] [id number] Gabino Esteban MD [address] [address] Karla Mosley MD [address] [phone] Generalized weakness (Primary Dx); Primary hypertension; Nausea [...] the past 12 months, has t he [employer], gas, oil, or water [employer] threatened to shut off services in your [...] Do you speak a language other than Azeri at [facility]? No 01/12/2025 Do you want help with [...] Yang, DO - 01/14/2025 10:38 AM EDT [facility] Discharge Summary Patient Name: Carla Burkett : 1970 Date of Admission: 01/11/2025 Date of Discharge: 01/14/2025 Primary Care Physician: Wally Yoo MD Hospital Course Bank Worker(s): Nephrology Discharge Diagnosis: End-stage renal disease Persistent [...] Medicine Relationship: PCP - General [address] [place] [address] Next Steps: Follow up Time Spent on Discharge: I spent 35 minutes in [id number]-vm-wrtd time with the patient and nursing staffconcerning [...] - 01/13/2025 10:10 AM EDT Discharge Summary [facility] 01/13/2025 10:10 AM Patient Name: Carla Burkett [...] diabetes, hypertension, peripheralvascular disease who presents to [facility] in [place], [place] for further evaluation and management of [...] ensuring adequate followup, along with documentation. This ticket printer was electronically signed. It was dictated by use of voice recognition software and electronically transcribed. The ticket printer may contain errors not detected in proofreading. Karla Mosley [email or web address] This has been electronically signed by: [facility] inpatient Specialists documented in this encounter Discharge Instructions * Discharge Instr - Activity* Yvonne Hawk RN - 01/13/2025 12:16 PM EDT As tolerated * Discharge Instr - Diet* Yvonne Hawk RN - 01/13/2025 12:16 PM EDT Renal * Attachments The following attachments cannot be sent through Care Everywhere. * End-Stage Kidney Disease (Azeri) documented in this encounter Medications at Time [...] EDT Handover report called to Yvonne at [facility]. [facility] will transport. * David Courtney RN [...] Relationship: PCP - General [address] [facility] [address] Next Steps: Follow up [facility] Specialty: Retirement Facility [address] [place], [place] [id number] Next Steps: Follow up Transporation Provider: DEMOND Root Contact Name: Transportation Provider Phone: Date of supervisor wound: (P) 01/14/25 Time of supervisor wound: (P) 1540 HD[address] 3. Confirmed with Yvonne from [facility] that they are able and willing to accept pt at her [place] facility this 01/14. Faxed summary ti [phone]. Arranged DEMOND for pick ay 1540. David [...] Mosley MD - 01/13/2025 1:09 PM EDT [facility] Inpatient Specialists Progress Note Patient Name: Carla Burkett : 1970 Date of Admission: 01/11/2025 Date of Service: 01/13/2025 PMD: Wally Yoo MD Hospital Course: 54 y.o. female with a history of renal disease on dialysis, CHF, diabetes, hypertension, peripheralvascular disease who presented to [facility] in [place], [place] for further evaluation and management of [...] Endocrine: No polyuria , polydipsia , polyphagia. 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: Denies any confusion , headache , or [...] vomiting in adult patient 01/11/2025 Cardiac arrest ([facility]) 07/19/2024 CHF (congestive heart failure) ([facility]) 01/19/2024 Diabetic neuropathy ([facility]) 01/19/2024 Smoker 01/19/2024 Hemodialysis patient ([facility]) 01/19/2024 Hypertensive chronic kidney disease with stage 5 chronic kidney disease or end stage renal disease ([facility]) 08/13/2023 Displaced intertrochanteric fracture of left femur, initial encounter for closed fracture ([facility]) 08/08/2023 Supracondylar fracture of distal end of femur with intracondylar extension ([facility]) 08/08/2023 Anxiety 07/20/2023 GERD (gastroesophageal reflux disease) 07/20/2023 SHAYLA (obstructive sleep apnea) 07/20/2023 Other pericardial effusion (noninflammatory) 01/01/2023 Pleural effusion 12/17/2022 Pericardial effusion 12/17/2022 Nausea 11/04/2022 Anaphylactic shock, unspecified, initial encounter 10/08/2022 Anemia in chronic kidney disease 10/06/2022 Chronic kidney disease, unspecified 10/06/2022 Dependence on renal dialysis ([facility]) 10/06/2022 Depression, unspecified 10/06/2022 Hyperlipidemia, unspecified 10/06/2022 Iron deficiency anemia, unspecified 10/06/2022 joint terminal attack controller (current) use of insulin ([facility]) 10/06/2022 Morbid (severe) obesity due to excess calories ([facility]) 10/06/2022 Type 2 diabetes mellitus with diabetic peripheral angiopathy without gangrene ([facility]) 10/06/2022 CKD (chronic kidney disease) stage 3, [...] Time spent: 38+ minute not only including [id number] rounding putting in the orders writing the note and all the conversation reviewing the records This ticket printer was electronically signed. It was dictated by use of voice recognition software and electronically transcribed. The ticket printer may contain errors not detected in proofreading. Disposition: Home This has been electronically signed by: @[facility]@ Karla Mosley MD.[email or web address] inpatient inpatient Specialists 01/13/2025 * Nataliya Cain MD - 01/13/2025 10:35 AM EDT Images from the original note were not included. Subjective: Patient was seen and examined with all infection control measures.+ nausea. Hospital Course: 54 year old female well-known to my practice with a past medical history of end- stage renal diseaseon chronic hemodialysis on a MWF schedule at [facility] dialysis [facility] in [facility] who presented to [facility] emergency department being a and having nausea, vomiting, and epigastric discomfort as well as generalized weakness. She presented earlier to her dialysis treatment [facility] dialysis clinic but her treatment could not be proceeded due to her illness. Apparently she had a tunneled hemodialysis catheter exchanged a day before this admission as her old dialysis catheter was partially pulled out with some erythema and redness around the old catheter exit site. She is being admitted to [facility] for further evaluation and I was [...] POC-GLUCOSE 112 (H) 70 - 110 mg/dL Woodwork Teacher [id number] CBC with automated diff Collection Time: 01/11/25 [...] 102 BPM ATRIAL RATE (MCT) 106 BPM [place] Interval 164 ms QRS-INTERVAL (MSEC) 84 ms QT Interval 332 ms QTC Interval 432 ms P [place] 54 degrees R AXIS (MCT) 20 degrees T Wave [place] 44 degrees [place] Diagnosis Age and gender specific ECG analysis Sinus tachycardia Low voltage QRS Borderline ECG When compared with ECG of 21-JUL-2024 08:41, No significant change was found Glucose, Nova Meter Collection Time: 01/11/25 6:12 PM Result Value Ref Range POC-GLUCOSE 116 (H) 70 - 110 mg/dL Woodwork Teacher [id number] Glucose, Nova Meter Collection Time: 01/11/25 8:56 PM Result Value Ref Range POC-GLUCOSE 103 70 - 110 mg/dL Woodwork Teacher [id number] Glucose, Nova Meter Collection Time: 01/12/25 5:35 AM Result Value Ref Range POC-GLUCOSE 103 70 - 110 mg/dL Woodwork Teacher [id number] Glucose, Nova Meter Collection Time: 01/12/25 11:21 AM Result Value Ref Range POC-GLUCOSE 106 70 - 110 mg/dL Woodwork Teacher [id number] Glucose, Nova Meter Collection Time: 01/12/25 5:04 PM Result Value Ref Range POC-GLUCOSE 98 70 - 110 mg/dL Woodwork Teacher [id number] Glucose, Nova Meter Collection Time: 01/12/25 8:27 PM Result Value Ref Range POC-GLUCOSE 110 70 - 110 mg/dL Woodwork Teacher [id number] Glucose, Nova Meter Collection Time: 01/13/25 5:54 AM Result Value Ref Range POC-GLUCOSE 111 (H) 70 - 110 mg/dL Woodwork Teacher [id number] CBC with automated diff Collection Time: 01/13/25 [...] and acid- base base status status closely. Avoidance of nephrotoxic agents and renal dosing [...] chronic hemodialysis on a MWF schedule at [facility] dialysis clinic in [facility] who presented to [facility] emergency department being a and having nausea, vomiting, and epigastric discomfort as well as generalized weakness. She presented earlier to her dialysis treatment [facility] dialysis clinic but her treatment could not be proceeded due to her illness. Apparently she had a tunneled hemodialysis catheter exchanged a day before this admission as her old dialysis catheter was partially pulled out with some erythema and redness around the old catheter exit site. She is being admitted to [facility] for further evaluation and I was [...] Daily, Olegario Varghese PA-C, 81 mg at 01/12/25 09 atorvastatin (LIPITOR) tablet 40 mg, 40 mg, oral, Every Night, Olegario Varhgese PA-C, 40 mg at 01/12/25 0014 bisacodyL [...] Olegario Varghese PA-C, 20 mg at 01/12/25 09 gabapentin (NEURONTIN) capsule 300 mg, 300 mg, [...] POC-GLUCOSE 112 (H) 70 - 110 mg/dL Woodwork Teacher [id number] CBC with automated diff Collection Time: 01/11/25 [...] 102 BPM ATRIAL RATE (MCT) 106 BPM [place] Interval 164 ms QRS-INTERVAL (MSEC) 84 ms QT Interval 332 ms QTC Interval 432 ms P [place] 54 degrees R AXIS (MCT) 20 degrees T Wave [place] 44 degrees [place] Diagnosis Age and gender specific ECG analysis Sinus tachycardia Low voltage QRS Borderline ECG When compared with ECG of 21-JUL-2024 08:41, No significant change was found Glucose, Nova Meter Collection Time: 01/11/25 6:12 PM Result Value Ref Range POC-GLUCOSE 116 (H) 70 - 110 mg/dL Woodwork Teacher [id number] Glucose, Nova Meter Collection Time: 01/11/25 8:56 PM Result Value Ref Range POC-GLUCOSE 103 70 - 110 mg/dL Woodwork Teacher [id number] Glucose, Nova Meter Collection Time: 01/12/25 5:35 AM Result Value Ref Range POC-GLUCOSE 103 70 - 110 mg/dL Woodwork Teacher [id number] Glucose, Nova Meter Collection Time: 01/12/25 11:21 AM Result Value Ref Range POC-GLUCOSE 106 70 - 110 mg/dL Woodwork Teacher [id number] Imaging: CT ABDOMEN/PELVIS WITHOUT IV CONTRAST Standard [...] 01/12/25 1005 Home Environment Type of Residence assisted Support Systems Family members;Friends/neighbors Accessibilty Issues None Agency Type Railroad Dining Car Steward/Stewardess Care Railroad Dining Car Steward/Stewardess Care Name and Number [facility] Intermediate Patient returning to prior living situation? Yes Affect Behavior Appropriate Prior/Regular Transportation Wheelchair van Needs Assistance with Transportation Yes ADL Assessment Assistive Devices Walker;Wheelchair Transition Needs Home or Post Acute Services Post acute facilities (Rehab/SNF/etc) Type of Post Acute Facility Services joint terminal attack controller care Does the patient have the ability to fill and receive their discharge medications? Yes Discharge Plan Discussed The discharge plan was discussed with patient. Discharge Plan Outcome Patient/family new accounts representative agrees with the discharge plan Discharge Barriers None Type of Assistive Devices Needed for Discharge None Patient Discharge Goal Home Mandated Reporting Not applicable CM spoke with pt at bedside, pt resides at [facility], has used HH in the past unable toremember name, uses a W/C, and sometimes a FWW. Pt [place] [facility] [place] [facility] [phone] will be here to pick pt up, [...] 102 BPM ATRIAL RATE (MCT) 106 BPM [place] Interval 164 ms QRS-INTERVAL (MSEC) 84 ms QT Interval 332 ms QTC Interval 432 ms P [place] 54 degrees R AXIS (MCT) 20 degrees T Wave [place] 44 degrees [place] Diagnosis Age and gender specific ECG analysis Sinus tachycardia Low voltage QRS Borderline ECG When compared with ECG of 21-JUL-2024 08:41, No significant change was found Glucose, Nova Meter Status: Abnormal Collection Time: 01/11/25 6:12 PM Result Value Ref Range POC-GLUCOSE 116 (H) 70 - 110 mg/dL Woodwork Teacher [id number] Glucose, Nova Meter Status: None Collection Time: 01/11/25 8:56 PM Result Value Ref Range POC-GLUCOSE 103 70 - 110 mg/dL Woodwork Teacher [id number] Glucose, Nova Meter Status: None Collection Time: 01/12/25 5:35 AM Result Value Ref Range POC-GLUCOSE 103 70 - 110 mg/dL Woodwork Teacher [id number] Radiology: CT ABDOMEN/PELVIS WITHOUT IV CONTRAST Standard Protocol Final Result No acute process. CT brain without IV contrast Final Result Negative. XR chest AP portable Final Result Atelectasis as above. Continued follow-up recommended. Images reviewed, interpreted, and dictated by Dr. Ivanna Sutton. Transcribed by Yessica Huerta PA-C. Medications: [...] hypertension, peripheral vascular disease who presents to [facility] in [place], [place] for further evaluation and management of [...] Diagnosis Date C. difficile colitis Cardiac arrest ([facility]) 07/19/2024 CHF (congestive heart failure) ([facility]) 01/19/2024 Chronic kidney disease Coronary artery disease-heart stents x 2 2019 CTS (carpal tunnel syndrome)left Depression Diabetes mellitus ([facility]) ESRD (end stage renal disease) on dialysis ([facility]) Hyperlipidemia, unspecified 10/06/2022 Hypertension Kidney failure Obstructive sleep apnea Osteomyelitis ([facility]) resolved Peripheral vascular disease due to secondary diabetes ([facility]) Post-menopausal Wound of right foot wrapped Past Surgical History: Past Surgical History: Procedure Laterality Date AMPUTATION,TOE Right BELOW KNEE LEG AMPUTATION Left toes first then debridement CARPAL TUNNEL RELEASE Right CREATION,A-V FISTULA Right 01/10/2025 Procedure: LEFT IJ tunneled catheter exchanged RIGHT brachiocephalic arteriovenous fistula creation; Surgeon: Baljinder Sloan MD; Location: [facility] OR; Service: Vascular Surgery; Laterality: Right; CREATION,PERICARDIAL WINDOW N/A 12/19/2022 Procedure: CREATION, PERICARDIAL WINDOW; Surgeon: Bogdan Hernandez IV, MD; Location: [facility] OR; Service: CV Surgery; Laterality: N/A; AO#3, AVAIL TF, 3HR(A) GALLBLADDER SURGERY heart stents INSERTION,DIALYSIS CATHETER KNEE ARTHROSCOPY Right ORIF,FEMUR Left 08/10/2023 Procedure: ORIF LT FEMUR); Surgeon: Otf Birmingham MD; Location: [facility]; Service: OrthopaedicSurgery; Laterality: Left; AO# 4, AVAIL TF melvi left hip TONSILLECTOMY TRANSPOSITION,VEIN Left 04/20/2023 Procedure: (LT UPPER EXTREMITY AV FISTULA); Surgeon: Baljinder Sloan MD; Location: [facility] OR; Service: Vascular; Laterality: Left; IN [...] she can tolerate hydrocodone (verified 12/19/22) Documented INTEL ANALYST Medications: (Not in a hospital admission) Review [...] 102 BPM ATRIAL RATE (MCT) 106 BPM [place] Interval 164 ms QRS-INTERVAL (MSEC) 84 ms QT Interval 332 ms QTC Interval 432 ms P [place] 54 degrees R AXIS (MCT) 20 degrees T Wave [place] 44 degrees [place] Diagnosis Age and gender specific ECG analysis Sinus tachycardia Low voltage QRS Borderline ECG When compared with ECG of 21-JUL-2024 08:41, No significant change was found Microbiology Results (last 7 days) Procedure Component Value Units Date/Time COVID ANTIGEN [[id number]] (Normal) Collected: 01/11/25 1148 Order Status: Completed Specimen: Nasal Swab Updated: 01/11/25 1240 SARS COVID ANTIGEN Negative Narrative: The BD Veritor System for Rapid Detection of SARS-CoV-2 does not differentiate between SARS-CoV [id number].The BD Veritor System for Rapid Detection of [...] high likelihood of SARS-CoV-2 infection. Blood Culture [[id number]] Collected: 01/11/25 1148 Order Status: Resulted Specimen: Blood Updated: 01/11/25 1156 Blood Culture [[id number]] Collected: 01/11/25 1148 Order Status: Resulted Specimen: Blood Updated: 01/11/25 1156 Radiology: Radiology Results (last 3 days) Procedure Component Value Units Date/Time CT ABDOMEN/PELVIS WITHOUT IV CONTRAST Standard Protocol [[id number]] Resulted: 01/11/25 1549 Order Status: Sent Updated: 01/11/[address] brain without IV contrast [[id number]] Collected: 01/11/25 1431 Order Status: Completed Updated: [...] intact. Impression: Negative. XR chest AP portable [[id number]] Collected: 01/11/25 1233 Order Status: Completed Updated: [...] mg 4 mg oral Q8H PRN Olegario Varghese PA-C Or ondansetron (ZOFRAN) injection 4 mg [...] and Rocephin given prophylactically in the ER. Ph energan and Zofran given in the ER. - CT abdomen received no acute process at this time. - Discontinue antibiotics at this time given no signs of infection. - Consult nephro Dr. Hein, appreciate assistance - Blood cultures pending - reglan, carafate -zofran, phenergan as needed - Tylenol as needed for MARVNI -Monitor labs - Monitor for fever, hemodynamic [...] 650 mg every 6hrs for mild pain, [place] 5 mg every 6hrs for moderate/severe pain. [...] Olegario Varghese PA-C 01/11/2025, 3:51 PM Voice ticket printer technology ([employer]) is used for dictation of this note and sound-alike words might be erroneously placed despite reviewing the note for accuracy. Errors in dictation mayreflect use of voice recognition software and not all errors in ticket printer may have been detected prior to signing. [...] consult to Nephrology Consult performed by: Nataliya Cain MD Consult ordered by: Olegario Varghese PA-C HPI: 54 year old female well-known to my practice with a past medical history of end- stage renal diseaseon chronic hemodialysis on a MWF schedule at [facility] dialysis clinic in [facility] who presented to [facility] emergency department being a and having nausea, vomiting, and epigastric discomfort as well as generalized weakness. She presented earlier to her dialysis treatment [facility] dialysis clinic but her treatment could not be proceeded due to her illness. Apparently she had a tunneled hemodialysis catheter exchanged a day before this admission as her old dialysis catheter was partially pulled out with some erythema and redness around the old catheter exit site. She is being admitted to [facility] for further evaluation and I was [...] mg total) by mouth nightly. 02/04/24 Billy Tom MD insulin glargine-yfgn (SEMGLEE) 100 unit/mL soln solution [...] 40 mg, 40 mg, oral, Every Night, Olegairo Varghese PA-C, 40 mg at 01/12/25 0014 [...] 500 mg), 1,500 mg, oral, Daily, Olegario Varghsee PA-C, 1,500 mg at 01/12/2534 ??? carvediloL (COREG) tablet 12.5 mg, 12.5 mg, oral, BID, Olegario Varghese PA-C, 12.5 mg at 01/12/2533 ??? dextrose 50% (D50W) injection 25 g, 25 g, intravenous, Q15 Min PRN, Olegario Varghese PA-C ??? diphenhydrAMINE (BENADRYL) capsule 25 mg, 25 mg, oral, TID PRN, Oleagrio Varghese PA-C ??? famotidine (PEPCID) tablet 20 [...] POC-GLUCOSE 112 (H) 70 - 110 mg/dL Woodwork Teacher [id number] CBC with automated diff Collection Time: 01/11/25 [...] 102 BPM ATRIAL RATE (MCT) 106 BPM [place] Interval 164 ms QRS-INTERVAL (MSEC) 84 ms QT Interval 332 ms QTC Interval 432 ms P [place] 54 degrees R AXIS (MCT) 20 degrees T Wave [place] 44 degrees [place] Diagnosis Age and gender specific ECG analysis Sinus tachycardia Low voltage QRS Borderline ECG When compared with ECG of 21-JUL-2024 08:41, No significant change was found Glucose, Nova Meter Collection Time: 01/11/25 6:12 PM Result Value Ref Range POC-GLUCOSE 116 (H) 70 - 110 mg/dL Woodwork Teacher [id number] Glucose, Nova Meter Collection Time: 01/11/25 8:56 PM Result Value Ref Range POC-GLUCOSE 103 70 - 110 mg/dL Woodwork Teacher [id number] Glucose, Nova Meter Collection Time: 01/12/25 5:35 AM Result Value Ref Range POC-GLUCOSE 103 70 - 110 mg/dL Woodwork Teacher [id number] Imaging: CT ABDOMEN/PELVIS WITHOUT IV CONTRAST Standard [...] Diagnosis Date C. difficile colitis Cardiac arrest ([facility]) 07/19/2024 CHF (congestive heart failure) ([facility]) 01/19/2024 Chronic kidney disease Coronary artery disease-heart stents x 2 2019 CTS (carpal tunnel syndrome)left Depression Diabetes mellitus ([facility]) ESRD (end stage renal disease) on dialysis ([facility]) Hyperlipidemia, unspecified 10/06/2022 Hypertension Kidney failure Obstructive sleep apnea Osteomyelitis ([facility]) resolved Peripheral vascular disease due to secondary diabetes ([facility]) Post-menopausal Wound of right foot wrapped Past Surgical History: Procedure Laterality Date AMPUTATION,TOE Right BELOW KNEE LEG AMPUTATION Left toes first then debridement CARPAL TUNNEL RELEASE Right CREATION,A-V FISTULA Right 01/10/2025 Procedure: LEFT IJ tunneled catheter exchanged RIGHT brachiocephalic arteriovenous fistula creation; Surgeon: Baljinder Sloan MD; [facility]; Service: Vascular Surgery; Laterality: Right; CREATION,PERICARDIAL [...] AV FISTULA); Surgeon: Baljinder Sloan MD; [facility]; Service: Vascular; Laterality: Left; IN 0600, [...] declined Family and Community Support Received from [facility], [facility] Abuse Screen Housing Stability: Low Risk (10/21/2023) [...] add ct abd/pelvis without, admit . [TC] 2366 Critical Care: I have personally provided 40 [...] of SARS-CoV-2 does not differentiate between SARS-CoV [id number].The BD Veritor System for Rapid Detection of [...] TROPONIN I - Normal Narrative: Applicable to [facility] only. Effective October 25 the [...] of SARS-CoV-2 does not differentiate between SARS-CoV [id number].The BD Veritor System for Rapid Detection of [...] TROPONIN I - Normal Narrative: Applicable to [facility] only. Effective October 25 the [...] well as internal medicine. Will admit to [facility] with telemetry. The following medications [...] Prescriptions No medications on file Plan EMR Dragon/Customer Service Technician disclaimer: Much of this encounter note is an electronic ticket printer of spoken language to printed text. Electronic ticket printer of spoken language may permit erroneous, or at times, nonsensical words or phrases to be inadvertently transcribed. Although I have reviewed the note for such errors, some may still exist. Electronically Signed By Benedict Fleming MD 01/11/25 1546 * Laisha Greer RN - 01/11/2025 11:35 AM EDT Bed: ED27 Expected date: Expected time: Means of arrival: Comments: [facility] Laisha Greer 01/11/25 1135 * Amirah [...] as needed Recent Flowsheet Documentation Taken 01/12/2025 0570 by Neal Narayan RN Dressing: Independent Grooming: [...] Glucose, Nova Meter (01/14/2025 10:47 AM EDT) POC-GLUCOSE 171(H) 70 - 110 mg/dL 01/14/2025 10:49 AM EDT [facility] Comment: In the event of poor peripheral blood flow, venous or arterial blood should be used due to the potential of erroneous results. Notified Nurse RBV Woodwork Teacher [id number] 01/14/2025 10:49 AM EDT [facility] Blood WHOLE BLOOD / Unknown 01/14/2025 10:47 AM EDT 01/14/2025 10:49 AM EDT Narrative [facility] - 01/14/2025 10:49 AM EDT Woodwork Teacher ID is - [id number] us Ismaeel Celia DO POINT OF CARE TEST ORDERABLES Final Result [facility] [address] [phone] * (ABNORMAL) CBC with automated diff (01/14/2025 6:15 AM EDT) Pathologist [facility] WBC 7.1 4.0 - 10.0 K/ L 01/14/2025 6:33 AM EDT [facility] RBC 3.25(L) 3.93 - 5.22 M/ L 01/14/2025 6:33 AM EDT [facility] Hemoglobin 10.5(L) 11.2 - 15.7 GM/DL 01/14/2025 6:33 AM EDT [facility] Hematocrit 31.6(L) 34.1 - 44.9 % 01/14/2025 6:33 AM EDT [facility] MCV 97(H) 79 - 95 fL 01/14/2025 6:33 AM EDT [facility] MCH 32.3(H) 25.6 - 32.2 pg 01/14/2025 6:33 AM EDT [facility] MCHC 33.2 32.2 - 35.5 GM/DL 01/14/2025 6:33 AM EDT [facility] RDW 13.1 11.7 - 14.4 % 01/14/2025 6:33 AM EDT [facility] Platelets 239 140 - 375 K/CU MM 01/14/2025 6:33 AM EDT [facility] MPV 9.5 9.4 - 12.3 fL 01/14/2025 6:33 AM EDT [facility] % Neutros 66 34 - 71 % 01/14/2025 6:33 AM EDT [facility] % Lymphs 20 19 - 52 % 01/14/2025 6:33 AM EDT [facility] % Monos 11 5 - 13 % 01/14/2025 6:33 AM EDT [facility] % Eos 2 1 - 6 % 01/14/2025 6:33 AM EDT [facility] % Baso 0 0 - 1 % 01/14/2025 6:33 AM EDT [facility] NRBC Absolute <0.01 0 - 0.012 K/ul 01/14/2025 6:33 AM EDT [facility] # Neutros 4.67 1.56 - 6.13 K/ L 01/14/2025 6:33 AM EDT [facility] # Lymphs 1.41 1.18 - 3.74 K/ L 01/14/2025 6:33 AM EDT [facility] # Monos 0.76 0.24 - 0.86 K/ L 01/14/2025 6:33 AM EDT [facility] # Eos 0.14 0.04 - 0.36 K/ L 01/14/2025 6:33 AM EDT [facility] # Baso 0.03 0.01 - 0.08 K/ L 01/14/2025 6:33 AM EDT [facility] Immature Granulocytes-Re lative 0.60(H) 0.01 - 0.43 % 01/14/2025 6:33 AM EDT [facility] # IG 0.04(H) 0.00 - 0.03 K/uL 01/14/2025 6:33 AM EDT [facility] Blood Venipuncture / Unknown 01/14/2025 6:15 AM EDT 01/14/2025 6:27 AM EDT Narrative [facility] - 01/14/2025 6:33 AM EDT When [...] ORDERABLES Final Resul t Performing Organization Address [facility] Phone Number [facility] [address] [phone] * Magnesium (01/14/2025 6:14 AM EDT) Magnesium 1.8 1.6 - 2.6 mg/dL 01/14/2025 6:58 AM EDT [facility] Blood Venipuncture / Unknown 01/14/2025 6:14 AM EDT 01/14/2025 6:27 AM EDT us Gabino Esteban MD LAB BLOOD ORDERABLES Final Resul t Performing Organization Address [facility] Co de Phone Number [facility] [address] [phone] * (ABNORMAL) Comprehensive metabolic panel (01/14/2025 6:14 AM EDT) Sodium 136 136 - 145 meq/L 01/14/2025 7:07 AM EDT [facility] Potassium 3.8 3.4 - 5.1 meq/L 01/14/2025 7:07 AM EDT [facility] Chloride 100 98 - 112 meq/L 01/14/2025 7:07 AM [facility] CO2 24 22 - 29 meq/L 01/14/2025 7:07 AM [facility] Calcium 8.4 8.4 - 10.2 mg/dL 01/14/2025 7:07 AM [facility] Glucose 122(H) 74 - 100 mg/dL 01/14/2025 7:07 AM [facility] BUN 18.9 9.8 - 20.1 mg/dL 01/14/2025 7:07 AM [facility] Creatinine 4.18(H) 0.57 - 1.11 mg/dL 01/14/2025 7:07 AM [facility] BUN/Creatinine 5(L) 8 - 20 01/14/2025 7:07 AM [facility] eGFR (mL/min/1.73m2) 12(L) >=60 mL/min/1. 73m2 01/14/2025 7:07 AM [facility] Albumin 2.8(L) 3.5 - 5.0 g/dL 01/14/2025 7:07 AM [facility] Alkaline Phosphatase 139 40 - 150 U/L 01/14/2025 7:07 AM [facility] ALT <7 <=34 U/L 01/14/2025 7:07 AM [facility] Comment: ALT2 reagent used for testing does not contain P5P supplementation and therefore may miss ALT elevations in patients with B6 deficiency. This population may be as high as 10% in the [place], with risk factors including malabsorption, drug interactions, and alcoholic hepatitis. AST 18 11 - 34 U/L 01/14/2025 7:07 AM [facility] Comment: AST2 reagent used for testing does not contain P5P supplementation and therefore may miss AST elevations in patients with B6 deficiency. This population may be as high as 10% in the [place], with risk factors including malabsorption, drug interactions, and alcoholic hepatitis. Total Bilirubin 0.5 0.2 - 1.2 mg/dL 01/14/2025 7:07 AM [facility] Protein, Total 6.5 6.4 - 8.3 g/dL 01/14/2025 7:07 AM EDT [facility] Globulin 3.7 2.5 - 4.1 g/dL 01/14/2025 7:07 AM EDT [facility] Anion Gap 16(H) 4 - 12 01/14/2025 7:07 AM EDT [facility] A/G Ratio 0.8 0.7 - 1.9 01/14/2025 7:07 AM EDT [facility] Osmolality Calc 275.5 mOsm/kg 7:07 AM EDT [facility] Blood Venipuncture / Unknown 01/14/2025 6:14 AM EDT 01/14/2025 6:27 AM EDT us Gabino Esteban MD LAB BLOOD ORDERABLES Final Resul t Performing Organization Address [facility] Phone Number [facility] [address] [phone] * (ABNORMAL) Glucose, Nova Meter (01/14/2025 5:51 AM EDT) POC-GLUCOSE 129(H) 70 - 110 mg/dL 01/14/2025 5:53 AM EDT [facility] Comment: In the event of poor peripheral blood flow, venous or arterial blood should be used due to the potential of erroneous results. Notified Nurse RBV Woodwork Teacher [phone] 01/14/2025 5:53 AM EDT [facility] Blood WHOLE BLOOD / Unknown 01/14/2025 5:51 AM EDT 01/14/2025 5:53 AM EDT Narrative [facility] - 01/14/2025 5:53 AM EDT Woodwork Teacher ID is - [id number] us Karla Mosley MD POINT OF CARE TEST ORDERABLES Fi nal Result Performing Organization Address [facility] Co de Phone Number [facility] [address] [phone] * Glucose, Nova Meter (01/13/2025 8:09 PM EDT) POC-GLUCOSE 103 70 - 110 mg/dL 01/13/2025 8:11 PM EDT [facility] Comment: In the event of poor peripheral blood flow, venous or arterial blood should be used due to the potential of erroneous results. Notified Nurse RBV Woodwork Teacher [id number] 01/13/2025 8:11 PM EDT [facility] Blood WHOLE BLOOD / Unknown 01/13/2025 8:09 PM EDT 01/13/2025 8:10 PM EDT Narrative [facility] - 01/13/2025 8:11 PM EDT Woodwork Teacher ID is - [id number] Karla Mosley MD POINT OF CARE TEST ORDERABLES Fi nal Result Performing Organization Address [facility] Number [facility] [address] [phone] * (ABNORMAL) Glucose, Nova Meter (01/13/2025 11:07 AM EDT) [facility] POC-GLUCOSE 147(H) 70 - 110 mg/dL 01/13/2025 11:12 AM EDT [facility] Comment: In the event of poor peripheral blood flow, venous or arterial blood should be used due to the potential of erroneous results. Notified Nurse RBV Woodwork Teacher [id number] 01/13/2025 11:12 AM EDT [facility] Blood WHOLE BLOOD / Unknown 01/13/2025 11:07 AM EDT 01/13/2025 11:12 AM EDT Narrative [facility] - 01/13/2025 11:12 AM EDT Woodwork Teacher ID is - [id number] us Karla Mosley MD POINT OF CARE TEST ORDERABLES Fi nal Result Performing Organization Address [facility] Co de Phone Number [facility] [address] [phone] * Magnesium (01/13/2025 9:53 AM EDT) Pathologist [facility] Magnesium 1.8 1.6 - 2.6 mg/dL 01/13/2025 10:39 AM EDT [facility] Blood Venipuncture / Unknown 01/13/2025 9:53 AM EDT 01/13/2025 10:11 AM EDT us Gabino Esteban MD LAB BLOOD ORDERABLES Final Resul t [facility] [address] [phone] * (ABNORMAL) Comprehensive metabolic panel (01/13/2025 9:53 AM EDT) Sodium 139 136 - 145 meq/L 01/13/2025 10:40 AM EDT [facility] Potassium 4.3 3.4 - 5.1 meq/L 01/13/2025 10:40 AM EDT [facility] Chloride 101 98 - 112 meq/L 01/13/2025 10:40 AM EDT [facility] CO2 27 22 - 29 meq/L 01/13/2025 10:40 AM EDT [facility] Calcium 8.6 8.4 - 10.2 mg/dL 01/13/2025 10:40 AM EDT [facility] Glucose 123(H) 74 - 100 mg/dL 01/13/2025 10:40 AM EDT [facility] BUN 28.7(H) 9.8 - 20.1 mg/dL 01/13/2025 10:40 AM EDT [facility] Creatinine 5.75(H) 0.57 - 1.11 mg/dL 01/13/2025 10:40 AM EDT [facility] BUN/Creatinine 5(L) 8 - 20 01/13/2025 10:40 AM EDT [facility] eGFR (mL/min/1.73m2) 8(L) >=60 mL/min/1. 73m2 01/13/2025 10:40 AM EDT [facility] Albumin 2.9(L) 3.5 - 5.0 g/dL 01/13/2025 10:40 AM EDT [facility] Alkaline Phosphatase 145 40 - 150 U/L 01/13/2025 10:40 AM EDT [facility] ALT <7 <=34 U/L 01/13/2025 10:40 AM EDT [facility] Comment: ALT2 reagent used for testing does not contain P5P supplementation and therefore may miss ALT elevations in patients with B6 deficiency. This population may be as high as 10% in the [place], with risk factors including malabsorption, drug interactions, and alcoholic hepatitis. AST 21 11 - 34 U/L 01/13/2025 10:40 AM EDT [facility] Comment: AST2 reagent used for testing does not contain P5P supplementation and therefore may miss AST elevations in patients with B6 deficiency. This population may be as high as 10% in the [place], with risk factors including malabsorption, drug interactions, and alcoholic hepatitis. Total Bilirubin 0.5 0.2 - 1.2 mg/dL 01/13/2025 10:40 AM EDT [facility] Protein, Total 6.5 6.4 - 8.3 g/dL 01/13/2025 10:40 AM EDT [facility] Globulin 3.6 2.5 - 4.1 g/dL 01/13/2025 10:40 AM EDT [facility] Anion Gap 15(H) 4 - 12 01/13/2025 10:40 AM T [facility] A/G Ratio 0.8 0.7 - 1.9 01/13/2025 10:40 AM EDT [facility] Osmolality Calc 284.6 mOsm/kg 10:40 AM T [facility] Blood Venipuncture / Unknown 01/13/2025 9:53 AM EDT 01/13/2025 10:11 AM EDT us Gabino Esteban MD LAB BLOOD ORDERABLES Final Resul t [facility] 1 [place], [place] [address] [phone] * (ABNORMAL) CBC with automated diff (01/13/2025 9:53 AM EDT) WBC 7.3 4.0 - 10.0 K/ L 01/13/2025 10:17 AM EDT [facility] RBC 3.13(L) 3.93 - 5.22 M/ L 01/13/2025 10:17 AM EDT [facility] Hemoglobin 10.2(L) 11.2 - 15.7 GM/DL 01/13/2025 10:17 AM [facility] Hematocrit 30.7(L) 34.1 - 44.9 % 01/13/2025 10:[facility] MCV 98(H) 79 - 95 fL 01/13/2025 10:17 AM [facility] MCH 32.6(H) 25.6 - 32.2 pg 01/13/2025 10:17 AM [facility] MCHC 33.2 32.2 - 35.5 GM/DL 01/13/2025 10:17 AM [facility] RDW 13.1 11.7 - 14.4 % 01/13/2025 10:17 AM [facility] Platelets 211 140 - 375 K/CU MM 01/13/2025 10:17 AM [facility] MPV 9.5 9.4 - 12.3 fL 01/13/2025 10:17 AM [facility] % Neutros 67 34 - 71 % 01/13/2025 10:17 AM [facility] % Lymphs 21 19 - 52 % 01/13/2025 10:17 AM EDT [facility] % Monos 9 5 - 13 % 01/13/2025 10:17 AM EDT [facility] % Eos 2 1 - 6 % 01/13/2025 10:17 AM EDT [facility] % Baso 0 0 - 1 % 01/13/2025 10:17 AM EDT [facility] NRBC Absolute <0.01 0 - 0.012 K/ul 01/13/2025 10:17 AM [facility] # Neutros 4.93 1.56 - 6.13 K/ L 01/13/2025 10:17 AM EDT [facility] # Lymphs 1.53 1.18 - 3.74 K/ L 01/13/2025 10:17 AM EDT [facility] # Monos 0.68 0.24 - 0.86 K/ L 01/13/2025 10:17 AM EDT [facility] # Eos 0.12 0.04 - 0.36 K/ L 01/13/2025 10:17 AM EDT [facility] # Baso 0.03 0.01 - 0.08 K/ L 01/13/2025 10:17 AM EDT [facility] Immature Granulocytes-Re lative 0.70(H) 0.01 - 0.43 % 01/13/2025 10:17 AM EDT [facility] # IG 0.05(H) 0.00 - 0.03 K/uL 01/13/2025 10:17 AM EDT [facility] Blood Venipuncture / Unknown 01/13/2025 9:53 AM EDT 01/13/2025 10:11 AM EDT Narrative [facility] - 01/13/2025 10:17 AM EDT When [...] MD LAB BLOOD ORDERABLES Final Resul t [facility] [address] [phone] * Phosphorus (01/13/2025 9:53 AM EDT) Phosphorus 3.1 2.5 - 4.5 mg/dL 01/13/2025 10:39 AM EDT [facility] Blood Venipuncture / Unknown 01/13/2025 9:53 AM EDT 01/13/2025 10:11 AM EDT us Gabino Esteban MD LAB BLOOD ORDERABLES Final Resul t Performing Organization Address City/[facility]/ZIP Co de Phone Number [facility] [address] [phone] * (ABNORMAL) Glucose, Nova Meter (01/13/2025 5:54 AM EDT) POC-GLUCOSE 111(H) 70 - 110 mg/dL 01/13/2025 5:55 AM EDT [facility] Comment: In the event of poor peripheral blood flow, venous or arterial blood should be used due to the potential of erroneous results. Notified Nurse RBV Woodwork Teacher [phone] 01/13/2025 5:55 AM EDT [facility] Blood WHOLE BLOOD / Unknown 01/13/2025 5:54 AM EDT 01/13/2025 5:55 AM EDT [facility] - 01/13/2025 5:55 AM EDT Woodwork Teacher ID is - [id number] us Gabino Esteban MD POINT OF CARE TEST ORDERABLES Fi nal Result Performing Organization Address City/[facility] Co de Phone Number [facility] [address] [phone] * Glucose, Nova Meter (01/12/2025 8:27 PM EDT) POC-GLUCOSE 110 70 - 110 mg/dL 01/12/2025 8:28 PM EDT [facility] Comment: In the event of poor peripheral blood flow, venous or arterial blood should be used due to the potential of erroneous results. Notified Nurse RBV Woodwork Teacher [phone] 01/12/2025 8:28 PM EDT [facility] Blood WHOLE BLOOD / Unknown 01/12/2025 8:27 PM EDT 01/12/2025 8:28 PM EDT [facility] - 01/12/2025 8:28 PM EDT Woodwork Teacher ID is - [id number] us Gabino Esteban MD POINT OF CARE TEST ORDERABLES Fi nal Result [facility] [address] [place] [address], [facility] [phone] * Glucose, Nova Meter (01/12/2025 5:04 PM EDT) POC-GLUCOSE 98 70 - 110 mg/dL 01/12/2025 5:05 PM EDT [facility] Comment: In the event of poor peripheral blood flow, venous or arterial blood should be used due to the potential of erroneous results. Protocols Followed Woodwork Teacher [phone] 01/12/2025 5:05 PM EDT [facility] Blood WHOLE BLOOD / Unknown 01/12/2025 5:04 PM EDT 01/12/2025 5:05 PM EDT [facility] - 01/12/2025 5:05 PM EDT Woodwork Teacher ID is - [id number] Gabino Esteban MD POINT OF CARE TEST ORDERABLES Fi nal Result Performing Organization Address [facility] Co de Phone Number [facility] [address] [place] [address], [facility] [phone] * Glucose, Nova Meter (01/12/2025 11:21 AM EDT) [facility] POC-GLUCOSE 106 70 - 110 mg/dL 01/12/2025 11:28 AM EDT [facility] Comment: In the event of poor peripheral blood flow, venous or arterial blood should be used due to the potential of erroneous results. Notified Nurse RBV Woodwork Teacher [id number] 01/12/2025 11:28 AM EDT [facility] Blood WHOLE BLOOD / Unknown 01/12/2025 11:21 AM EDT 01/12/2025 11:28 AM EDT [facility] - 01/12/2025 11:28 AM EDT Woodwork Teacher ID is - [id number] Gabino Esteban MD POINT OF CARE TEST ORDERABLES Fi nal Result Performing Organization Address City/[facility]/ZIP Co de Phone Number [facility] [address] [phone] * Glucose, Nova Meter (01/12/2025 5:35 AM EDT) POC-GLUCOSE 103 70 - 110 mg/dL 01/12/2025 5:36 AM EDT [facility] Comment: In the event of poor peripheral blood flow, venous or arterial blood should be used due to the potential of erroneous results. Notified Nurse RBV Woodwork Teacher [id number] 01/12/2025 5:36 AM EDT [facility] Blood WHOLE BLOOD / Unknown 01/12/2025 5:35 AM EDT 01/12/2025 5:36 AM EDT [facility] - 01/12/2025 5:36 AM EDT Woodwork Teacher ID is - [id number] Olegario WHITEHEAD-C POINT OF CARE TEST ORDERABLE S Final Result Performing Organization Address [facility]/ZIP Co de Phone Number [facility] [address] [phone] * Glucose, Nova Meter (01/11/2025 8:56 PM EDT) POC-GLUCOSE 103 70 - 110 mg/dL 01/11/2025 8:57 PM EDT [facility] Comment: In the event of poor peripheral blood flow, venous or arterial blood should be used due to the potential of erroneous results. Notified Nurse RBV Woodwork Teacher [id number] 01/11/2025 8:57 PM EDT [facility] Blood WHOLE BLOOD / Unknown 01/11/2025 8:56 PM EDT 01/11/2025 8:57 PM EDT [facility] - 01/11/2025 8:57 PM EDT Woodwork Teacher ID is - [id number] Olegario WHITEHEAD-C POINT OF CARE TEST ORDERABLE S Final Result Performing Organization Address City/[facility]/ZIP Co de Phone Number [facility] [address] [phone] * (ABNORMAL) Glucose, Nova Meter (01/11/2025 6:12 PM EDT) POC-GLUCOSE 116(H) 70 - 110 mg/dL 01/11/2025 6:14 PM EDT [facility] Comment:In the event of poor peripheral blood flow, venous or arterial blood should be used due to the potential of erroneous results. Woodwork Teacher [id number] 01/11/2025 6:14 PM EDT [facility] Blood WHOLE BLOOD / Unknown 01/11/2025 6:12 PM EDT 01/11/2025 6:14 PM EDT Narrative [facility] - 01/11/2025 6:14 PM EDT Woodwork Teacher ID is - [id number] Olegario Varghese PA-C POINT OF CARE TEST ORDERABLE S Final Result [facility] [address] [phone] * CT ABDOMEN/PELVIS WITHOUT IV CONTRAST Standard [...] ECG 12 lead (01/11/2025 11:51 AM EDT) Pathologist [facility] VENTRICULAR RATE EKG/MIN 102 BPM GE MUSE ATRIAL RATE (MCT) 106 BPM GE MUSE [place] Interval 164 ms GE MUSE QRS-INTERVAL (MSEC) 84 ms GE MUSE QT Interval 332 ms GE MUSE QTC Interval 432 ms GE MUSE P [place] 54 degrees GE MUSE R AXIS (MCT) 20 degrees GE MUSE T Wave [place] 44 degrees GE MUSE [place] Diagnosis Age and gender specific ECG analysis [...] - 2.6 mg/dL 01/11/2025 12:22 PM EDT [facility] Blood Venipuncture / Unknown 01/11/2025 11:48 AM EDT 01/11/2025 11:56 AM EDT Benedict Fleming MD LAB BLOOD ORDERABLES Final Result Performing Organization Address [facility]/ZIP Co de Phone Number [facility] [address] [phone] * High Sensitivity Troponin I (01/11/2025 11:48 AM EDT) [facility] Troponin I High Sensitivity (pg/mL) <5.0 <=14 pg/mL 01/11/2025 12:32 PM EDT [facility] Blood Venipuncture / Unknown 01/11/2025 11:48 AM EDT 01/11/2025 11:56 AM EDT Narrative [facility] - 01/11/2025 12:32 PM EDT Applicable to [facility] only. Effective October 25 the lab will begin using a new chemistry analyzer. HsTroponin methodology, reference ranges and critical values have changed. Benedict Fleming MD LAB BLOOD ORDERABLES Final Result Performing Organization Address [facility] Co de Phone Number [facility] [address] [phone] * COVID ANTIGEN (01/11/2025 11:48 AM EDT) [facility] SARS COVID ANTIGEN Negative Negative, Invalid 01/11/2025 12:40 PM EDT [facility] Nasal Swab (Nasal) 01/11/2025 11:48 AM EDT 01/11/2025 11:56 AM EDT Narrative [facility] - 01/11/2025 12:40 PM EDT The [...] MASHA ARZATE Final Result Performing Organization Address City/[facility] Co de Phone Number [facility] [address] [phone] * Blood Culture (01/11/2025 11:48 AM EDT) Result No growth in 5 days 01/16/2025 1:00 PM EDT [facility] Blood Venipuncture / Unknown 01/11/2025 11:48 AM EDT 01/11/2025 11:56 AM EDT Benedict Fleming MD MICROBIOLOGY - GENERAL MASHA ARZATE Final Result Performing Organization Address City/[facility]/ZIP Co de Phone Number [facility] [address] [phone] * Blood Culture (01/11/2025 11:48 AM EDT) Result No growth in 5 days 01/16/2025 1:00 PM EDT [facility] Blood Venipuncture / Unknown 01/11/2025 11:48 AM EDT 01/11/2025 11:56 AM EDT us Benedict Fleming MD MICROBIOLOGY - GENERAL MASHA ARZATE Final Result Performing Organization Address [place]/[facility] Co de Phone Number [facility] [address] [phone] * Lactic Acid with reflex (SJ) (01/11/2025 11:48 AM EDT) Lactic Acid Level (mmol/L) 1.2 0.5 - 2.2 mmol/L 01/11/2025 12:48 PM EDT [facility] Blood Venipuncture / Unknown 01/11/2025 11:48 AM EDT 01/11/2025 12:27 PM EDT Narrative [facility] - 01/11/2025 12:48 PM EDT Specimen slightly hemolyzed us Benedict Fleming MD LAB BLOOD ORDERABLES Final Result [facility] [address] [phone] * (ABNORMAL) Comprehensive metabolic panel (01/11/2025 11:48 AM EDT) Pathologist [facility] Sodium 142 136 - 145 meq/L 01/11/2025 12:22 PM EDT [facility] Potassium 4.4 3.4 - 5.1 meq/L 01/11/2025 12:22 PM EDT [facility] Chloride 100 98 - 112 meq/L 01/11/2025 12:22 PM EDT [facility] CO2 31(H) 22 - 29 meq/L 01/11/2025 12:22 PM EDT [facility] Calcium 10.0 8.4 - 10.2 mg/dL 01/11/2025 12:22 PM EDT [facility] Glucose 125(H) 74 - 100 mg/dL 01/11/2025 12:22 PM EDT [facility] BUN 46.9(H) 9.8 - 20.1 mg/dL 01/11/2025 12:22 PM EDT [facility] Creatinine 6.98(H) 0.57 - 1.11 mg/dL 01/11/2025 12:22 PM EDT [facility] BUN/Creatinine 7(L) 8 - 20 01/11/2025 12:22 PM EDT [facility] eGFR (mL/min/1.73m2) 7(L) >=60 mL/min/1. 73m2 01/11/2025 12:22 PM [facility] Albumin 3.4(L) 3.5 - 5.0 g/dL 01/11/2025 12:22 PM [facility] Alkaline Phosphatase 175(H) 40 - 150 U/L 01/11/2025 12:22 PM [facility] ALT 34 <=34 U/L 01/11/2025 12:22 PM [facility] Comment: ALT2 reagent used for testing does not contain P5P supplementation and therefore may miss ALT elevations in patients with B6 deficiency. This population may be as high as 10% in the [place], with risk factors including malabsorption, drug interactions, and alcoholic hepatitis. AST 48(H) 11 - 34 U/L 01/11/2025 12:22 PM [facility] Comment: AST2 reagent used for testing does not contain P5P supplementation and therefore may miss AST elevations in patients with B6 deficiency. This population may be as high as 10% in the [place], with risk factors including malabsorption, drug interactions, and alcoholic hepatitis. Total Bilirubin 0.4 0.2 - 1.2 mg/dL 01/11/2025 12:22 PM [facility] Protein, Total 7.0 6.4 - 8.3 g/dL 01/11/2025 12:22 PM [facility] Globulin 3.6 2.5 - 4.1 g/dL 01/11/2025 12:22 PM [facility] Anion Gap 15(H) 4 - 12 01/11/2025 12:22 PM [facility] A/G Ratio 0.9 0.7 - 1.9 01/11/2025 12:22 PM [facility] Osmolality Calc 296.8 mOsm/kg 12:22 PM [facility] Blood Venipuncture / Unknown 01/11/2025 11:48 AM EDT 01/11/2025 11:56 AM EDT us Benedict Fleming MD LAB BLOOD ORDERABLES Final Result [facility] [address] [place] [id number], [facility] [phone] * (ABNORMAL) CBC with automated diff (01/11/2025 11:48 AM EDT) WBC 8.8 4.0 - 10.0 K/ L 01/11/2025 12:05 PM EDT [facility] RBC 3.39(L) 3.93 - 5.22 M/ L 01/11/2025 12:05 PM EDT [facility] Hemoglobin 11.1(L) 11.2 - 15.7 GM/DL 01/11/2025 12:05 PM EDT [facility] Hematocrit 33.1(L) 34.1 - 44.9 % 01/11/2025 12:05 PM EDT [facility] MCV 98(H) 79 - 95 fL 01/11/2025 12:05 PM EDT [facility] MCH 32.7(H) 25.6 - 32.2 pg 01/11/2025 12:05 PM EDT [facility] MCHC 33.5 32.2 - 35.5 GM/DL 01/11/2025 12:05 PM EDT [facility] RDW 13.3 11.7 - 14.4 % 01/11/2025 12:05 PM EDT [facility] Platelets 243 140 - 375 K/CU MM 01/11/2025 12:05 PM EDT [facility] MPV 9.8 9.4 - 12.3 fL 01/11/2025 12:05 PM EDT [facility] % Neutros 70 34 - 71 % 01/11/2025 12:05 PM EDT [facility] % Lymphs 19 19 - 52 % 01/11/2025 12:05 PM EDT [facility] % Monos 9 5 - 13 % 01/11/2025 12:05 PM EDT [facility] % Eos 1 1 - 6 % 01/11/2025 12:05 PM EDT [facility] % Baso 0 0 - 1 % 01/11/2025 12:05 PM EDT [facility] NRBC Absolute <0.01 0 - 0.012 K/ul 01/11/2025 12:05 PM EDT [facility] # Neutros 6.19(H) 1.56 - 6.13 K/ L 01/11/2025 12:05 PM EDT [facility] # Lymphs 1.71 1.18 - 3.74 K/ L 01/11/2025 12:05 PM EDT [facility] # Monos 0.75 0.24 - 0.86 K/ L 01/11/2025 12:05 PM EDT [facility] # Eos 0.10 0.04 - 0.36 K/ L 01/11/2025 12:05 PM EDT [facility] # Baso 0.03 0.01 - 0.08 K/ L 01/11/2025 12:05 PM EDT [facility] Immature Granulocytes-Re lative 0.60(H) 0.01 - 0.43 % 01/11/2025 12:05 PM EDT [facility] # IG 0.05(H) 0.00 - 0.03 K/uL 01/11/2025 12:05 PM EDT [facility] Blood Venipuncture / Unknown 01/11/2025 11:48 AM EDT 01/11/2025 11:56 AM EDT Narrative [facility] - 01/11/2025 12:05 PM EDT When [...] Fleming MD LAB BLOOD ORDERABLES Final Result [facility] [address] [phone] * EKG-SCANNED (01/11/2025) Narrative 01/11/2025 Ordered by [...] Blood Sugar is less than 180 between 1368-7345, DO NOT give corrective insulin unless otherwise [...] Narayan RN) 0831 (Given - Provider: Yvonne Hawk RN)2316 (Given - Provider: Flora Paulino, BENNETT) 0843 (Given - Provider: Shanique Amaya, BENNETT) famotidine (PEPCID) tablet 20 mg 20 mg 2 times daily, oral, First dose on Thu01/11/25 at 2100, Pharmacist to renally dose if CrCl is less than 50 mL/min or on CRRT. 0014 (Given - Provider: Rocio Nelson RN)0933 (Given - Provider: Brian Collins RN)2001 (Given - Provider: Neal Narayan, BENNETT) 08 (Given - Provider: Yvonne Hawk, BENNETT)231 (Given - Provider: Flora Paulino, BENNETT) 0843 (Given - Provider: Shanique Amaya, BENNETT) gabapentin (NEURONTIN) capsule 300 mg 300 mg Every Night, oral, First dose on Thu01/11/25 at 2100 0014 (Given - Provider: Rocio Nelson RN)2001 (Given - Provider: Neal Narayan, BENNETT) 231 (Given - Provider: Flora Paulino, BENNETT) insulin lispro (HUMALOG, ADMELOG) injection 0-6 Units 0-6 Units 4 times daily (before meals and nightly), subcutaneous, First dose on Thu01/11/25 at 1745, If Blood Sugar is less than 180 between 7899-4561, DO NOT give corrective insulin unless otherwise [...] Yvonne Hawk RN)1130 (Given - Provider: Yvonne Hawk RN)1907 (Not Given - Provider: Yvonne Hawk RN [...] line analgesic 0217 (Given - Provider: Rocio Nelson RN)0934 (Given - Provider: Brian Collins RN) [...] documented as of this encounter Care Teams Pit Manager Relationship Specialty Start Date End Date Wally Yoo MD [address] [place] [phone] PCP - General Family Medicine 01/11/25 documented as of this encounter
--- OUTSIDE RECORDS SUMMARY | 2025-02-08 15:54 | XMS_ITS | Encounter Summary ---
Author Organization [employer] ([place], [place], [place], [place]) Address [address] [place] [address] Care Team Providers Care Burr Sander Name Role Phone Wally Yoo MD Primary Care Provider [phone] Reason for Visit * Reason Comments Vascular Access Problem * Auth/Cert (Routine) Specialty Diagnoses / Procedures Referred By Meg kumar Referred To Contact Diagnoses Surgical site infection [place] [address] [facility] [address] [place] [id number] Phone: tel: fax: [place] [address] Inter[facility] [address] [place] [address] Phone: tel: fax: Referral ID Status Reason Start Date Expiration Date Visits Re quested Visits Authorized [id number] 1 1 Encounter Details Date Type Department Care Team (Late st Contact Info) Description 02/08/2025 3:54 PM EDT - 02/13/2025 8:47 PM EDT Hospital Encounter [place] [address] Inter[facility] [address] [place] [phone] Yuri Ocampo DO [address] [place] [address] Olegario Varghese PA-C [address] [facility] [address] [place] [address] Briana Araiza MD [address] [facility] [address] [id number] Joo Melendrez MD [address] [facility] [address] [id number] Surgical site infection (Primary Dx) Discharge Disposition: [facility] Social History Tobacco Use Types Packs/Day [...] Do you speak a language other than [place] [facility]? No 02/09/2025 Do you want help [...] 9:52 AM EDT DISCHARGE SUMMARY Internal Medicine, [facility] [place] [facility] Patient Name: Carla Burkett : 1970 Date of Admission: 02/08/2025 Date of Discharge: 02/13/2025 Primary Care Physician: Wally Yoo MD Consultations: Vascular surgery, nephrology, infectious disease Discharge Diagnoses: Right upper extremity cellulitis AV fistula incision site infection ESRD on HD Diabetes with hyperglycemia Reason for Admission: Carla Burkett is a 54 y.o. female with a history of who presents to [facility] in [place], [place] for further evaluation and management of [...] Your Medications These medications were [facility], [place] - [address] [facility] [address] gabapentin 300 MG capsule Physical Exam Constitutional: [...] sent through Care Everywhere. * Wound Infection Obkg-ic-Kqdk (Rwandan) documented in this encounter Medications at Time [...] Progress Note HPI: 54 y.o.female presents to [facility] from dialysis clinic due to bleeding and [...] Thank you, Jami Munoz PharmD, BCPS, BCCCP #[id number] * Delores Hartley RN - 02/13/2025 12:46 PM EDT 02/13/25 1245 Final Discharge Plan Patient appealing discharge? No Does the patient have the ability to fill and receive their discharge medications? Yes Patient returning to prior living situation? Yes Discharge Disposition [facility] Agency Type SNF SNF Name and Number [facility] This CM met with the pt to discuss the DC plan. Pt at HD today. We discussed the discharge plan which is for pt to return to [facility]. This CM informed the pt that an attempted was made to set up the transport, however due to pt not being fully discharge [facility] did not allow this CM to setup hospital discharge transport in advance. This CM called sEha in admission and explained to herthe barrier. No cut off time for the pt to arrive at the facility. Patient stated that if transportcould not be set up for evening, she is comfortable with being transported by [facility]. Her last discharge from [facility] was by lyft. This CM spoke with Director Veronica. Then called Degreasing Wheel Operator Edilia. Explained to her the situation and she agreed to assist. Transportation company: [facility] [phone]. Discharge Address: [place] [address]. Facility # [phone] Pt has WC at bedside and both Prothesis. The Pt is in agreement with the discharge plan. CM also updated the Nurse and provided the N2N report# [phone]. The Nurse is to call the housesupervisor once the pt has returned from . * Nataliya Cain MD - 02/13/2025 12:44 PM EDT Images from the original note were not included. Subjective: Patient was seen and examined with all infection control measures. NAD, afebrile. Plan for GARDE MANAGER today. Hospital Course: Carla Burkett is a [...] Patient was referred tothe local ER at [facility] for further evaluation by vascular surgery and [...] Units, 5,000 Units, subcutaneous, Q8H, Arabella Luu, TERRITORY REPRESENTATIVE, 5,000 Units at 02/13/25 1220 hydrALAZINE (APRESOLINE) [...] POC-GLUCOSE 149 (H) 70 - 110 mg/dL Adult Educator [id number] Glucose, Nova Meter Collection Time: 02/10/25 7:54 PM Result Value Ref Range POC-GLUCOSE 176 (H) 70 - 110 mg/dL Adult Educator [id number] Basic Metabolic Panel Collection Time: 02/11/25 5:31 [...] POC-GLUCOSE 234 (H) 70 - 110 mg/dL Adult Educator [id number] Glucose, Nova Meter Collection Time: 02/11/25 11:42 AM Result Value Ref Range POC-GLUCOSE 240 (H) 70 - 110 mg/dL Adult Educator [id number] Glucose, Nova Meter Collection Time: 02/11/25 4:09 PM Result Value Ref Range POC-GLUCOSE 208 (H) 70 - 110 mg/dL Adult Educator [id number] Glucose, Nova Meter Collection Time: 02/12/25 7:29 AM Result Value Ref Range POC-GLUCOSE 203 (H) 70 - 110 mg/dL Adult Educator [id number] Glucose, Nova Meter Collection Time: 02/12/25 11:19 AM Result Value Ref Range POC-GLUCOSE 230 (H) 70 - 110 mg/dL Adult Educator [id number] Glucose, Nova Meter Collection Time: 02/12/25 3:31 PM Result Value Ref Range POC-GLUCOSE 279 (H) 70 - 110 mg/dL Adult Educator [id number] Glucose, Nova Meter Collection Time: 02/12/25 8:23 PM Result Value Ref Range POC-GLUCOSE 316 (H) 70 - 110 mg/dL Adult Educator [id number] Vancomycin level, random Collection Time: 02/13/25 5:08 [...] POC-GLUCOSE 278 (H) 70 - 110 mg/dL Adult Educator [id number] Glucose, Nova Meter Collection Time: 02/13/25 11:22 AM Result Value Ref Range POC-GLUCOSE 344 (H) 70 - 110 mg/dL Adult Educator [id number] Imaging: Ultrasound hemodialysis access Result Date: 02/09/2025 Vascular Upper Extremities Arterial Duplex Procedure Demographics Patient Name YANG Norris Age 54 Patient Number [id number] Gender Female Race Unknown Ethnicity Corporate ID [id number] Height 66 Date of 1970 Weight 268 Accession Number [id number] BSA 2.27 m^2 Room Number 400 BMI 43.26 kg/m^2 Referring Physician ERNST AVILA Physician Church History Teacher OLIVIA Blount Procedure Type of Study: Extremities [...] from the original note were not included. [facility] Patient Name: Carla Burkett : 1970 Evaluating Physician: Edgar Hopper MD Chief Complaint: right arm infection Reason for Consultation: right arm surgical site infection History of present illness: Patient is a 54 y.o. female with history of diabetes, end-stage renal disease with hemodialysis q. Bblwjr-Xuufzstem-Ohejks, right arm brachiocephalic AV fistula creation January [...] Diagnosis Date C. difficile colitis Cardiac arrest ([facility]) 07/19/2024 CHF (congestive heart failure) ([facility]) 01/19/2024 Chronic kidney disease Coronary artery disease-heart [...] fistula creation; Surgeon: Baljinder Sloan MD; [facility]; Service: Vascular Surgery; Laterality: Right; CREATION,PERICARDIAL WINDOW N/A 12/19/2022 Procedure: CREATION, PERICARDIAL WINDOW; Surgeon: Bogdan Hernandez IV, MD; [facility]; Service: CV Surgery; Laterality: N/A; AO#3, AVAIL TF, 3HR(A) GALLBLADDER SURGERY heart stents INSERTION,DIALYSIS CATHETER KNEE ARTHROSCOPY Right ORIF,FEMUR Left 08/10/2023 Procedure: ORIF LT FEMUR); Surgeon: Otf Birmingham MD; [facility]; Service: OrthopaedicSurgery; Laterality: Left; AO# 4, AVAIL TF melvi left hip TONSILLECTOMY TRANSPOSITION,VEIN Left 04/20/2023 Procedure: (LT UPPER EXTREMITY AV FISTULA); Surgeon: Baljinder Sloan MD; [facility]; Service: Vascular; Laterality: Left; IN 0600, [...] Units 5,000 Units subcutaneous Q8H Arabella Luu TERRITORY REPRESENTATIVE 5,000 Units at 02/13/25 0633 hydrALAZINE (APRESOLINE) [...] Procedure Component Value Units Date/Time Blood Culture [[id number]] Collected: 02/08/25 1600 Order Status: Completed Specimen: Blood Updated: 02/12/25 1700 Result No growth in 4 days Narrative: Blood volume is not within specification. May compromise patient blood culture results. Blood Culture [[id number]] Collected: 02/08/25 1617 Order Status: Completed Specimen: Blood Updated: 02/12/25 1700 Result No growth in 4 days Narrative: Blood volume is not within specification. May compromise patient blood culture results. Wound Culture + Gram Stain [[id number]] (Abnormal) (Susceptibility) Collected: 02/08/25 2319 Order Status: [...] 1:18 PM EDT HOSPITALIST PROGRESS NOTE Patient: Crala Burkett Date: 02/12/2025 Subjective Date of Service: [...] of 02/12. 1-2 days Expected discharge disposition: care home facility, [place] Additional discharge needs: PCP follow-up, nephrology follow-up, transportation IV antibiotics withHD Signed: Briana Araiza MD 02/12/2025, 12:15 PM * Philomena Palomino RN - 02/12/2025 1:17 PM EDTSummary: Discharge Planning Weekend CM. Final ID plan for antibiotic with HD entered today. [place] [facility] clinic is not open today for [...] Patient was referred tothe local ER at [facility] for further evaluation by vascular surgery and [...] Units, 5,000 Units, subcutaneous, Q8H, Arabella Luu, TERRITORY REPRESENTATIVE, 5,000 Units at 02/12/252047 hydrALAZINE (APRESOLINE) injection 10 mg, 10 mg, intravenous, Q6H PRN, Olegario Varghese PA-C insulin glargine-yfgn (SEMGLEE) solution 7 Units, 7 Units, subcutaneous, QAM, Birana Araiza MD, 7 Units at 02/12/25 0531 [...] POC-GLUCOSE 235 (H) 70 - 110 mg/dL Adult Educator [id number] Glucose, Nova Meter Collection Time: 02/10/25 12:23 PM Result Value Ref Range POC-GLUCOSE 274 (H) 70 - 110 mg/dL Adult Educator [id number] Glucose, Nova Meter Collection Time: 02/10/25 6:20 PM Result Value Ref Range POC-GLUCOSE 149 (H) 70 - 110 mg/dL Adult Educator [id number] Glucose, Nova Meter Collection Time: 02/10/25 7:54 PM Result Value Ref Range POC-GLUCOSE 176 (H) 70 - 110 mg/dL Adult Educator [id number] Basic Metabolic Panel Collection Time: 02/11/25 5:31 [...] POC-GLUCOSE 234 (H) 70 - 110 mg/dL Adult Educator [id number] Glucose, Nova Meter Collection Time: 02/11/25 11:42 AM Result Value Ref Range POC-GLUCOSE 240 (H) 70 - 110 mg/dL Adult Educator [id number] Glucose, Nova Meter Collection Time: 02/11/25 4:09 PM Result Value Ref Range POC-GLUCOSE 208 (H) 70 - 110 mg/dL Adult Educator [id number] Glucose, Nova Meter Collection Time: 02/12/25 7:29 AM Result Value Ref Range POC-GLUCOSE 203 (H) 70 - 110 mg/dL Adult Educator [id number] Glucose, Nova Meter Collection Time: 02/12/25 11:19 AM Result Value Ref Range POC-GLUCOSE 230 (H) 70 - 110 mg/dL Adult Educator [id number] Glucose, Nova Meter Collection Time: 02/12/25 3:31 PM Result Value Ref Range POC-GLUCOSE 279 (H) 70 - 110 mg/dL Adult Educator [id number] Glucose, Nova Meter Collection Time: 02/12/25 8:23 PM Result Value Ref Range POC-GLUCOSE 316 (H) 70 - 110 mg/dL Adult Educator [id number] Imaging: Ultrasound hemodialysis access Result Date: 02/09/2025 Vascular Upper Extremities Arterial Duplex Procedure Demographics Patient Name YANG Norris Age 54 Patient Number [id number] Gender Female Race Unknown Ethnicity Corporate ID [id number] Height 66 Date of 1970 Weight 268 Accession Number [id number] BSA 2.27 m^2 Room Number 400 BMI 43.26 kg/m^2 Referring Physician ERNST AVILA Physician Church History Teacher OLIVIA Blount Procedure Type of Study: Extremities [...] from the original note were not included. [facility] Patient Name: Carla Burkett : 1970 Evaluating Physician: Edgar Hopper MD Chief Complaint: right arm infection Reason for Consultation: right arm surgical site infection History of present illness: Patient is a 54 y.o. female with history of diabetes, end-stage renal disease with hemodialysis q. Vnufkl-Gunqcviiz-Xlbcfi, right arm brachiocephalic AV fistula creation January [...] Diagnosis Date C. difficile colitis Cardiac arrest ([facility]) 07/19/2024 CHF (congestive heart failure) ([facility]) 01/19/2024 Chronic kidney disease Coronary artery disease-heart [...] fistula creation; Surgeon: Baljinder Sloan MD; [facility]; Service: Vascular Surgery; Laterality: Right; CREATION,PERICARDIAL WINDOW N/A 12/19/2022 Procedure: CREATION, PERICARDIAL WINDOW; Surgeon: Bogdan Hernandez IV, MD; [facility]; Service: CV Surgery; Laterality: N/A; AO#3, AVAIL TF, 3HR(A) GALLBLADDER SURGERY heart stents INSERTION,DIALYSIS CATHETER KNEE ARTHROSCOPY Right ORIF,FEMUR Left 08/10/2023 Procedure: ORIF LT FEMUR); Surgeon: Otf Birmingham MD; [facility]; Service: OrthopaedicSurgery; Laterality: Left; AO# 4, AVAIL TF melvi left hip TONSILLECTOMY TRANSPOSITION,VEIN Left 04/20/2023 Procedure: (LT UPPER EXTREMITY AV FISTULA); Surgeon: Baljinder Sloan MD; [facility]; Service: Vascular; Laterality: Left; IN 0600, [...] Units 5,000 Units subcutaneous Q8H Arabella Luu, TERRITORY REPRESENTATIVE 5,000 Units at 02/12/25 0531 hydrALAZINE (APRESOLINE) [...] Units Date/Time Wound Culture + Gram Stain [[id number]] (Abnormal) (Susceptibility) Collected: 02/08/25 2319 Order Status: Completed Specimen: Wound from Arm, Right Upper Updated: 02/12/25 0805 Result Moderate Growth Methicillin resistant Staphylococcus aureus Comment: Resistant organism requires isolation protocol. Moderate Growth Staphylococcus epidermidis Gram Stain Result No cells seen Few gram positive cocci in pairs and clusters Few gram positive cocci Blood Culture [[id number]] Collected: 02/08/25 1600 Order Status: Completed Specimen: Blood Updated: 02/11/25 1700 Result No growth in 3 days Narrative: Blood volume is not within specification. May compromise patient blood culture results. Blood Culture [[id number]] Collected: 02/08/25 1617 Order Status: Completed Specimen: Blood Updated: 02/11/25 1700 Result No growth in 3 days Narrative: Blood volume is not within specification. May compromise patient blood culture results. Radiology: Radiology Results (last 3 days) Procedure Component Value Units Date/Time Ultrasound hemodialysis access [[id number]] Collected: 02/09/25 0847 Order Status: Completed Updated: 02/09/25 1506 Narrative: Vascular Upper Extremities Arterial Duplex Procedure Demographics Patient Name YANG Norris Age 54 Patient Number [id number] Gender Female Race Unknown Ethnicity Corporate ID [id number] Height 66 Date of 1970 Weight 268 Accession Number [id number] BSA 2.27 m^2 Room Number 400 BMI 43.26 kg/m^2 Referring Physician ERNST DÍAZ Interpreting ANNEMARIE AVILA Physician Church History Teacher OLIVIA Blount Procedure Type of Study: Extremities [...] discharge in: 1-2 days Expected discharge disposition: care home facility, [place] Additional discharge needs: PCP follow-up, nephrology follow-up, [...] Patient was referred tothe local ER at [facility] for further evaluation by vascular surgery and [...] Units, 5,000 Units, subcutaneous, Q8H, Arabella Ramosborne, TERRITORY REPRESENTATIVE, 5,000 Units at 02/11/25 1214 hydrALAZINE (APRESOLINE) [...] POC-GLUCOSE 131 (H) 70 - 110 mg/dL Adult Educator [id number] Wound Culture + Gram Stain Collection Time: [...] POC-GLUCOSE 181 (H) 70 - 110 mg/dL Adult Educator [id number] Glucose, Nova Meter Collection Time: 02/09/25 11:16 AM Result Value Ref Range POC-GLUCOSE 154 (H) 70 - 110 mg/dL Adult Educator [id number] Glucose, Nova Meter Collection Time: 02/09/25 4:16 PM Result Value Ref Range POC-GLUCOSE 232 (H) 70 - 110 mg/dL Adult Educator [id number] Glucose, Nova Meter Collection Time: 02/09/25 8:08 PM Result Value Ref Range POC-GLUCOSE 172 (H) 70 - 110 mg/dL Adult Educator [id number] Glucose, Nova Meter Collection Time: 02/10/25 7:52 AM Result Value Ref Range POC-GLUCOSE 235 (H) 70 - 110 mg/dL Adult Educator [id number] Glucose, Nova Meter Collection Time: 02/10/25 12:23 PM Result Value Ref Range POC-GLUCOSE 274 (H) 70 - 110 mg/dL Adult Educator [id number] Glucose, Nova Meter Collection Time: 02/10/25 6:20 PM Result Value Ref Range POC-GLUCOSE 149 (H) 70 - 110 mg/dL Adult Educator [id number] Glucose, Nova Meter Collection Time: 02/10/25 7:54 PM Result Value Ref Range POC-GLUCOSE 176 (H) 70 - 110 mg/dL Adult Educator [id number] Basic Metabolic Panel Collection Time: 02/11/25 5:31 [...] POC-GLUCOSE 234 (H) 70 - 110 mg/dL Adult Educator [id number] Glucose, Nova Meter Collection Time: 02/11/25 11:42 AM Result Value Ref Range POC-GLUCOSE 240 (H) 70 - 110 mg/dL Adult Educator [id number] Imaging: Ultrasound hemodialysis access Result Date: 02/09/2025 Vascular Upper Extremities Arterial Duplex Procedure Demographics Patient Name YANG Norris Age 54 Patient Number [id number] Gender Female Race Unknown Ethnicity Corporate ID [id number] Height 66 Date of 1970 Weight 268 Accession Number [id number] BSA 2.27 m^2 Room Number 400 BMI 43.26 kg/m^2 Referring Physician ERNST AVILA Physician Church History Teacher OLIVIA Blount Procedure Type of Study: Extremities [...] Images reviewed, interpreted, and dictated by Nirav aNvarro MD Assessment: #1 end-stage renal disease on [...] Progress Note HPI: 54 y.o.female presents to [facility] from dialysis clinic due to bleeding and [...] Units Date/Time Wound Culture + Gram Stain [[id number]] (Abnormal) (Susceptibility) Collected: 02/08/25 2319 Order Status: Completed Specimen: Wound from Arm, Right Upper Updated: 02/11/25 0825 Result Moderate Growth Methicillin resistant Staphylococcus aureus Comment: Resistant organism requires isolation protocol. Moderate Growth Coagulase negative Staphylococcus Gram Stain Result No cells seen Few gram positive cocci in pairs and clusters Few gram positive cocci Blood Culture [[id number]] Collected: 02/08/25 1600 Order Status: Completed Specimen: Blood Updated: 02/10/25 170 Result No growth in 48 hours Narrative: Blood volume is not within specification. May compromise patient blood culture results. Blood Culture [[id number]] Collected: 02/08/25 1617 Order Status: Completed Specimen: [...] follow Thank you, Flaco Walker PharmD Ext. [phone] * Edgar Hopper MD - 02/11/2025 8:50 AM EDT Images from the original note were not included. [facility] Patient Name: Carla Burkett : 1970 Evaluating Physician: Edgar Hopper MD Chief Complaint: right arm infection Reason for Consultation: right arm surgical site infection History of present illness: Patient is a 54 y.o. female with history of diabetes, end-stage renal disease with hemodialysis q. Bdorrc-Jnuvbfnni-Kxswnc, right arm brachiocephalic AV fistula creation January [...] Diagnosis Date C. difficile colitis Cardiac arrest ([facility]) 07/19/2024 CHF (congestive heart failure) ([facility]) 01/19/2024 Chronic kidney disease Coronary artery disease-heart stents x 2019 CTS (carpal tunnel syndrome)left Depression Diabetes mellitus ([facility]) ESRD (end stage renal disease) on dialysis ([facility]) Hyperlipidemia, unspecified 10/06/2022 Hypertension Kidney failure Obstructive sleep apnea Osteomyelitis ([facility]) resolved Peripheral vascular disease due to secondary diabetes ([facility]) Post-menopausal Wound of right foot wrapped Past Surgical History: Procedure Laterality Date AMPUTATION,TOE Right BELOW KNEE LEG AMPUTATION Left toes first then debridement CARPAL TUNNEL RELEASE Right CREATION,A-V FISTULA Right 01/10/2025 Procedure: LEFT IJ tunneled catheter exchanged RIGHT brachiocephalic arteriovenous fistula creation; Surgeon: Baljinder Sloan MD; [facility]; Service: Vascular Surgery; Laterality: Right; CREATION,PERICARDIAL WINDOW N/A 12/19/2022 Procedure: CREATION, PERICARDIAL WINDOW; Surgeon: Bogdan Hernandez IV, MD; [facility]; Service: CV Surgery; Laterality: N/A; AO#3, AVAIL TF, 3HR(A) GALLBLADDER SURGERY heart stents INSERTION,DIALYSIS CATHETER KNEE ARTHROSCOPY Right ORIF,FEMUR Left 08/10/2023 Procedure: ORIF LT FEMUR); Surgeon: Otf Birmingham MD; [facility]; Service: Orthopaedic Surgery; Laterality: Left; AO# 4, AVAIL TF melvi left hip TONSILLECTOMY TRANSPOSITION,VEIN Left 04/20/2023 Procedure: (LT UPPER EXTREMITY AV FISTULA); Surgeon: Baljinder Sloan MD; [facility]; Service: Vascular; Laterality: Left; IN 0600, [...] Units 5,000 Units subcutaneous Q8H Arabella Luu, TERRITORY REPRESENTATIVE 5,000 Units at 02/11/25 0544 hydrALAZINE (APRESOLINE) [...] Units Date/Time Wound Culture + Gram Stain [[id number]] (Abnormal) (Susceptibility) Collected: 02/08/25 2319 Order Status: Completed Specimen: Wound from Arm, Right Upper Updated: 02/11/25824 Result Moderate Growth Methicillin resistant Staphylococcus aureus Comment: Resistant organism requires isolation protocol. Moderate Growth Coagulase negative Staphylococcus Gram Stain Result No cells seen Few gram positive cocci in pairs and clusters Few gram positive cocci Blood Culture [[id number]] Collected: 02/08/25 1600 Order Status: Completed Specimen: Blood Updated: 02/10/25 1701 Result No growth in 48 hours Narrative: Blood volume is not within specification. May compromise patient blood culture results. Blood Culture [[id number]] Collected: 02/08/25 1617 Order Status: Completed Specimen: Blood Updated: 02/10/25 1701 Result No growth in 48 hours Narrative: Blood volume is not within specification. May compromise patient blood culture results. Radiology: Radiology Results (last 3 days) Procedure Component Value Units Date/Time Ultrasound hemodialysis access [[id number]] Collected: 02/09/25 0847 Order Status: Completed Updated: 02/09/25 1506 Narrative: Vascular Upper Extremities Arterial Duplex Procedure Demographics Patient Name YANG Norris Age 54 Patient Number [id number] Gender Female Race Unknown Ethnicity Corporate ID [id number] Height 66 Date of 1970 Weight 268 Accession Number [id number] BSA 2.27 m^2 Room Number 400 BMI 43.26 kg/m^2 Referring Physician ENRST AVILA Physician Church History Teacher OLIVIA Blount Procedure Type of Study: Extremities [...] Signature CT upper extremity without contrast right [[id number]] Collected: 02/08/25 9298 Order Status: Completed Updated: 02/08/25 9250 Narrative: CT RIGHT UPPER EXTREMITY, ATTENTION ELBOW [...] 09/19/24 HBs Ab result Positive (66) Machine [id number] Machine Conductivity 13.7 QC pH 7.2 Machine Temperature 37.1 Test Completed Yes Reverse Osmosis [id number] Alarm Test Passed Treatment Type UF and [...] Patient was referred tothe local ER at [facility] for further evaluation by vascular [...] Units, 5,000 Units, subcutaneous, Q8H, Arabella Luu, TERRITORY REPRESENTATIVE, 5,000 Units at 02/11/25 1214 hydrALAZINE (APRESOLINE) [...] POC-GLUCOSE 131 (H) 70 - 110 mg/dL Adult Educator [id number] Wound Culture + Gram Stain Collection Time: [...] POC-GLUCOSE 181 (H) 70 - 110 mg/dL Adult Educator [id number] Glucose, Nova Meter Collection Time: 02/09/25 11:16 AM Result Value Ref Range POC-GLUCOSE 154 (H) 70 - 110 mg/dL Adult Educator [id number] Glucose, Nova Meter Collection Time: 02/09/25 4:16 PM Result Value Ref Range POC-GLUCOSE 232 (H) 70 - 110 mg/dL Adult Educator [id number] Glucose, Nova Meter Collection Time: 02/09/25 8:08 PM Result Value Ref Range POC-GLUCOSE 172 (H) 70 - 110 mg/dL Adult Educator [id number] Glucose, Nova Meter Collection Time: 02/10/25 7:52 AM Result Value Ref Range POC-GLUCOSE 235 (H) 70 - 110 mg/dL Adult Educator [id number] Glucose, Nova Meter Collection Time: 02/10/25 12:23 PM Result Value Ref Range POC-GLUCOSE 274 (H) 70 - 110 mg/dL Adult Educator [id number] Glucose, Nova Meter Collection Time: 02/10/25 6:20 PM Result Value Ref Range POC-GLUCOSE 149 (H) 70 - 110 mg/dL Adult Educator [id number] Glucose, Nova Meter Collection Time: 02/10/25 7:54 PM Result Value Ref Range POC-GLUCOSE 176 (H) 70 - 110 mg/dL Adult Educator [id number] Basic Metabolic Panel Collection Time: 02/11/25 5:31 [...] POC-GLUCOSE 234 (H) 70 - 110 mg/dL Adult Educator [id number] Glucose, Nova Meter Collection Time: 02/11/25 11:42 AM Result Value Ref Range POC-GLUCOSE 240 (H) 70 - 110 mg/dL Adult Educator [id number] Imaging: Ultrasound hemodialysis access Result Date: 02/09/2025 Vascular Upper Extremities Arterial Duplex Procedure Demographics Patient Name YANG Norris Age 54 Patient Number [id number] Gender Female Race Unknown Ethnicity Corporate ID [id number] Height 66 Date of 1970 Weight 268 Accession Number [id number] BSA 2.27 m^2 Room Number 400 BMI 43.26 kg/m^2 Referring Physician ERNST AVILA Physician Church History Teacher OLIVIA Blount Procedure Type of Study: Extremities [...] discharge in: 1-2 days Expected discharge disposition: care home facility, [place] Additional discharge needs: PCP follow-up, nephrology follow-up, transportation Signed: Briana Araiza MD 02/10/2025, 12:15 PM * Delores Hartley RN - 02/10/2025 12:14 PM EDTSummary: Discharge Planning This Pt was discussed at MDR Rounds today. The pt is pending ID final recs for and HD for discharge. This CM Spoke with Esha, [facility] [phone] who said the pt has a bed hold for 30 days. Pt is welcomed back once medically stable for discharge. This CM called Esha back to update her on DC plan. Pt is welcomed back at anytime. N2N # [phone]; . Barrier: ID recs waiting on final [...] POC-GLUCOSE 232 (H) 70 - 110 mg/dL Adult Educator [id number] Glucose, Nova Meter Status: Abnormal Collection Time: 02/09/25 8:08 PM Result Value Ref Range POC-GLUCOSE 172 (H) 70 - 110 mg/dL Adult Educator [id number] Glucose, Nova Meter Status: Abnormal Collection Time: 02/10/25 7:52 AM Result Value Ref Range POC-GLUCOSE 235 (H) 70 - 110 mg/dL Adult Educator [id number] Glucose, Nova Meter Status: Abnormal Collection Time: 02/10/25 12:23 PM Result Value Ref Range POC-GLUCOSE 274 (H) 70 - 110 mg/dL Adult Educator [id number] Ultrasound hemodialysis access Vascular Upper Extremities Arterial Duplex Procedure Demographics Patient Name YANG Norris Age 54 Patient Number [id number] Gender Female Race Unknown Ethnicity Corporate ID [id number] Height 66 Date of 1970 Weight 268 Accession Number [id number] BSA 2.27 m^2 Room Number 400 BMI 43.26 kg/m^2 Referring Physician ERNST DÍAZ Interpreting ANNEMARIE AVILA Physician Church History Teacher OLIVIA Blount Procedure Type of Study: Extremities [...] Call light in reach. * Leelee Starr [facility] - 02/09/2025 2:11 PM EDT Clinical Rx Vancomycin Progress Note HPI: 54 y.o.female presents to [facility] from dialysis clinic due to bleeding and [...] Units Date/Time Wound Culture + Gram Stain [[id number]] Collected: 02/08/25 2319 Order Status: Completed Specimen: Wound from Arm, Right Upper Updated: 02/09/25 07 Result Too young to evaluate - will reincubate Gram Stain Result No cells seen Few gram positive cocci in pairs and clusters Few gram positive cocci Blood Culture [[id number]] Collected: 02/08/25 1600 Order Status: Resulted Specimen: Blood Updated: 02/08/25 1620 Blood Culture [[id number]] Collected: 02/08/25 1617 Order Status: Resulted Specimen: [...] 02/09/25 1015 Home Environment Type of Residence care home Living Arrangements Alone Support Systems Family members;Friends/neighbors Accessibilty Issues Ramp Patient returning to prior living situation? Yes Affect Behavior Appropriate Prior/Regular Transportation Wheelchair van Current Transportation Agency Information [facility] [phone] Needs Assistance with Transportation Yes ADL Assessment Dressing Independent Current Home Care Services None Assistive Devices Prosthesis;Wheelchair Transition Needs Home or Post Acute Services Post acute facilities (Rehab/SNF/etc) Type of Post Acute Facility Services senior living care Does the patient have the ability to fill and receive their discharge medications? No Discharge Plan Discussed The discharge plan was discussed with patient. Discharge Plan Outcome Patient/family electroplating sales representative agrees with the discharge plan Discharge Barriers Test(s) Pending;Diet Type of Assistive Devices Needed for Discharge None Patient Discharge Goal [facility] Facility Pt has readmission risk score of 16%. This CM met with the Pt at bedside introduced self and role. Pt resides at [facility] since Sep 28, 2023. This CM sent them a referral via careport. Pt is semi independent with ADL's and uses Prosthesis (R&L) and WC (at bedside) for Mobility. Pt goes to M[facility]W,F at [facility]; Chair time 10:45am. Transport provided by [facility]: [phone]. Discharge Plan: [facility] Barrier: Medical Readiness Transport: Ambulance if on Sat/Sun; Mon-Fri [facility] Addendum: 2:50pm: This CM reached out to [facility] admissions [phone]. Was transferred [facility], This CM left her a with contact info. Wanted the days for bedhold and cut off time?CM will follow. * Kenton Herrera, PharmD - 02/08/2025 8:43 PM EDT Clinical Rx Vancomycin Progress Note HPI: 54 y.o.female presents to [facility] from dialysis clinic due to bleeding and [...] Units Date/Time Wound Culture + Gram Stain [[id number]] Order Status: Sent Specimen: Wound from Arm, Right Upper Blood Culture [[id number]] Collected: 02/08/25 1600 Order Status: Resulted Specimen: Blood Updated: 02/08/25 1620 Blood Culture [[id number]] Collected: 02/08/25 1617 Order Status: Resulted Specimen: [...] Rx to follow Kenton Herrera PharmD Ext. [phone] documented in this encounter H&P Notes * [...] with a history of who presents to [facility] in [place], [place] for further evaluation and management of [...] Diagnosis Date C. difficile colitis Cardiac arrest ([facility]) 07/19/2024 CHF (congestive heart failure) ([facility]) 01/19/2024 Chronic kidney disease Coronary artery disease-heart stents x 2 2019 CTS (carpal tunnel syndrome)left Depression Diabetes mellitus (HCC) ESRD (end stage renal disease) on dialysis ([facility])/thu Hyperlipidemia, unspecified 10/06/2022 Hypertension Kidney failure Obstructive [...] fistula creation; Surgeon: Baljinder Sloan MD; [facility]; Service: Vascular Surgery; Laterality: Right; CREATION,PERICARDIAL WINDOW N/A 12/19/2022 Procedure: CREATION, PERICARDIAL WINDOW; Surgeon: Bogdan Hernandez IV, MD; [facility]; Service: CV Surgery; Laterality: N/A; AO#3, AVAIL TF, 3HR(A) GALLBLADDER SURGERY heart stents INSERTION,DIALYSIS CATHETER KNEE ARTHROSCOPY Right ORIF,FEMUR Left 08/10/2023 Procedure: ORIF LT FEMUR); Surgeon: Otf Birmingham MD; [facility]; Service: OrthopaedicSurgery; Laterality: Left; AO# 4, AVAIL TF melvi left hip TONSILLECTOMY TRANSPOSITION,VEIN Left 04/20/2023 Procedure: (LT UPPER EXTREMITY AV FISTULA); Surgeon: Baljinder Sloan MD; [facility]; Service: Vascular; Laterality: Left; IN 0600, [...] she can tolerate hydrocodone (verified 12/19/22) Documented FRAME STRIPPER Medications: (Not in a hospital admission) Review [...] Procedure Component Value Units Date/Time Blood Culture [[id number]] Collected: 02/08/25 1600 Order Status: Resulted Specimen: Blood Updated: 02/08/25 1620 Blood Culture [[id number]] Collected: 02/08/25 1617 Order Status: Resulted Specimen: Blood Updated: 02/08/25 1620 Radiology: Radiology Results (last 3 days) Procedure Component Value Units Date/Time CT upper extremity without contrast right [[id number]] Collected: 02/08/25 1743 Order Status: Completed Updated: [...] 650 mg every 6hrs for mild pain, [place] 5 mg every 6hrs for moderate/severe pain. [...] Olegario Varghese PA-C 02/08/2025, 8:31 PM Voice office receptionist technology ([email or web address]) is used for dictation of this note and sound-alike words might be erroneously placed despite reviewing the note for accuracy. Errors in dictation mayreflect use of voice recognition software and not all errors in office receptionist may have been detected prior to signing. [...] CM reached out to Addie [facility] [phone] to discuss the consult.Addie stated that they need ID final recs. This CM provided Addie, the pt's info and the IV abx that are currently recommended. Addie suggested that CM fax orders once final recs are available to HD clinic [phone]. Addie will update the clinic today of the IV abx the pt will be starting. MARK abrams. * Edgar Hopper MD - 02/10/2025 1:27 PM EDTAssociated Order(s): FS_MODEL_IP IP CONSULT TO INFECTIOUS DISEASES Images from the original note were not included. [facility] Patient Name: Carla Burkett : 1970 Date of Consult: 02/10/2025 Admission Date: 02/08/2025 Requesting Provider: Dr Araiza Evaluating Physician: Edgar Hopper MD Chief Complaint: right arm infection Reason for Consultation: right arm surgical site infection History of present illness: Patient is a 54 y.o. female with history of diabetes, end-stage renal disease with hemodialysis q. Zaeeli-Lgjetgfbh-Dwvggu, right arm brachiocephalic AV fistula creation January [...] Diagnosis Date C. difficile colitis Cardiac arrest ([facility]) 07/19/2024 CHF (congestive heart failure) ([facility]) 01/19/2024 Chronic kidney disease Coronary artery disease-heart stents x 2 2019 CTS (carpal tunnel syndrome)left Depression Diabetes mellitus (HCC) ESRD (end stage renal disease) on dialysis ([facility])/thu Hyperlipidemia, unspecified 10/06/2022 Hypertension Kidney failure Obstructive sleep apnea Osteomyelitis (HCC) resolved Peripheral vascular disease due to secondary diabetes ([facility]) Post-menopausal Wound of right foot wrapped Past [...] WINDOW; Surgeon: Bogdan Hernandez IV, MD; [facility]; Service: CV Surgery; Laterality: N/A; AO#3, AVAIL TF, 3HR(A) GALLBLADDER SURGERY heart stents INSERTION,DIALYSIS CATHETER KNEE ARTHROSCOPY Right ORIF,FEMUR Left 08/10/2023 Procedure: ORIF LT FEMUR); Surgeon: Otf Birmingham MD; [facility]; Service: OrthopaedicSurgery; Laterality: Left; AO# 4, AVAIL TF melvi left hip TONSILLECTOMY TRANSPOSITION,VEIN Left 04/20/2023 Procedure: (LT UPPER EXTREMITY AV FISTULA); Surgeon: Baljinder Sloan MD; [facility]; Service: Vascular; Laterality: Left; IN 0600, [...] Units 5,000 Units subcutaneous Q8H Arabella Luu, TERRITORY REPRESENTATIVE 5,000 Units at 02/10/25 1234 hydrALAZINE (APRESOLINE) [...] Units Date/Time Wound Culture + Gram Stain [[id number]] (Abnormal) Collected: 02/08/25 2319 Order Status: Completed Specimen: Wound from Arm, Right Upper Updated: 02/10/25 1101 Result Moderate Growth Staphylococcus aureus Gram Stain Result No cells seen Few gram positive cocci in pairs and clusters Few gram positive cocci Blood Culture [[id number]] Collected: 02/08/25 1600 Order Status: Completed Specimen: Blood Updated: 02/09/25 1701 Result No growth in 24 hours Narrative: Blood volume is not within specification. May compromise patient blood culture results. Blood Culture [[id number]] Collected: 02/08/25 1617 Order Status: Completed Specimen: Blood Updated: 02/09/25 1701 Result No growth in 24 hours Narrative: Blood volume is not within specification. May compromise patient blood culture results. Radiology: Radiology Results (last 3 days) Procedure Component Value Units Date/Time Ultrasound hemodialysis access [[id number]] Collected: 02/09/25 0847 Order Status: Completed Updated: 02/09/25 1506 Narrative: Vascular Upper Extremities Arterial Duplex Procedure Demographics Patient Name YANG Norris Age 54 Patient Number [id number] Gender Female Race Unknown Ethnicity Corporate ID [id number] Height 66 Date of 1970 Weight 268 Accession Number [id number] BSA 2.27 m^2 Room Number 400 BMI 43.26 kg/m^2 Referring Physician ERNST AVILA Physician Church History Teacher OLIVIA Blount Procedure Type of Study: Extremities [...] Signature CT upper extremity without contrast right [[id number]] Collected: 02/08/25 1743 Order Status: Completed Updated: [...] Patient was referred [facility] local ER at [facility] for further evaluation by vascular surgery and possible need for IV antibiotic initiation. Nephrology consult was requested by the primary team. Past Medical History She has a past medical history of C. difficile colitis, Cardiac arrest ([facility]) (07/19/2024), CHF (congestive heart failure) ([facility]) (01/19/2024), Chronic kidney disease, Coronary artery disease-heart stents x 2 2019, CTS (carpal tunnel syndrome)left, Depression, Diabetes mellitus ([facility]), ESRD (end stagerenal disease) on dialysis (HCC)//thu, Hyperlipidemia, unspecified (10/06/2022), Hypertension, Kidney failure, Obstructive sleep apnea, Osteomyelitis (HCC) resolved, Peripheral vascular disease due to secondary diabetes (HCC), Post- menopausal, and Wound of right foot wrapped. She has no past medical history of AAA (abdominal aortic aneurysm) ([facility]), Asthma, Atrial fibrillation (HCC), Cancer (HCC), Carotid artery occlusion, Clotting disorder (HCC), Heart murmur, Stroke ([facility]), Syncope and collapse, or Thyroid disease. Past [...] mg, 500 mg, oral, Q6H PRN, Briana Ariaza MD amLODIPine (NORVASC) tablet 10 mg, 10 [...] POC-GLUCOSE 131 (H) 70 - 110 mg/dL Adult Educator [id number] Wound Culture + Gram Stain Collection Time: [...] POC-GLUCOSE 181 (H) 70 - 110 mg/dL Adult Educator [id number] Glucose, Nova Meter Collection Time: 02/09/25 11:16 AM Result Value Ref Range POC-GLUCOSE 154 (H) 70 - 110 mg/dL Adult Educator [id number] Imaging: CT upper extremity without contrast right [...] history of C. difficile colitis, Cardiac arrest ([facility]) (07/19/2024), CHF (congestive heart failure) ([facility]) (01/19/2024), Chronic kidney disease, Coronary artery disease-heart stents x 2 2019, CTS (carpal tunnel syndrome)left, Depression, Diabetes mellitus ([facility]), ESRD (end stagerenal disease) on dialysis ([facility])//thu, Hyperlipidemia, unspecified (10/06/2022), Hypertension, Kidney failure, Obstructive sleep apnea, Osteomyelitis ([facility]) resolved, Peripheral vascular disease due to secondary diabetes ([facility]), Post- menopausal, and Wound of right foot wrapped. She has no past medical history of AAA (abdominal aortic aneurysm) ([facility]), Asthma, Atrial fibrillation ([facility]), Cancer ([facility]), Carotid artery occlusion, Clotting disorder ([facility]), Heart murmur, Stroke ([facility]), Syncope and collapse, or Thyroid disease. Past [...] POC-GLUCOSE 131 (H) 70 - 110 mg/dL Adult Educator [id number] Wound Culture + Gram Stain Status: None [...] POC-GLUCOSE 181 (H) 70 - 110 mg/dL Adult Educator [id number] Glucose, Nova Meter Status: Abnormal Collection Time: 02/09/25 11:16 AM Result Value Ref Range POC-GLUCOSE 154 (H) 70 - 110 mg/dL Adult Educator [id number] Radiology Results (last 7 days) Procedure Component Value Units Date/Time Ultrasound hemodialysis access [[id number]] Resulted: 02/09/25 1043 Order Status: No result Updated: 02/09/251043 Ultrasound upper extremity arteries left [[id number]] Order Status: Canceled CT upper extremity without contrast right [[id number]] Collected: 02/08/25 1743 Order Status: Completed Updated: [...] chills or trauma. History provided by: Patient collateral analyst used: No Patient History Past Medical History: Diagnosis Date C. difficile colitis Cardiac arrest ([facility]) 07/19/2024 CHF (congestive heart failure) ([facility]) 01/19/2024 Chronic kidney disease Coronary artery disease-heart stents x 2 2019 CTS (carpal tunnel syndrome)left Depression Diabetes mellitus ([facility]) ESRD (end stage renal disease) on dialysis ([facility]) Hyperlipidemia, unspecified 10/06/2022 Hypertension Kidney failure Obstructive sleep apnea Osteomyelitis ([facility]) resolved Peripheral vascular disease due to secondary diabetes ([facility]) Post-menopausal Wound of right foot wrapped Past Surgical History: Procedure Laterality Date AMPUTATION,TOE Right BELOW KNEE LEG AMPUTATION Left toes first then debridement CARPAL TUNNEL RELEASE Right CREATION,A-V FISTULA Right 01/10/2025 Procedure: LEFT IJ tunneled catheter exchanged RIGHT brachiocephalic arteriovenous fistula creation; Surgeon: Baljinder Sloan MD; Location: [facility]; Service: Vascular Surgery; Laterality: Right; CREATION,PERICARDIAL WINDOW N/A 12/19/2022 Procedure: CREATION, PERICARDIAL WINDOW; Surgeon: Bogdan Hernandez IV, MD; Location: [facility] OR; Service: CV Surgery; Laterality: N/A; AO#3, AVAIL TF, 3HR(A) GALLBLADDER SURGERY heart stents INSERTION,DIALYSIS CATHETER KNEE ARTHROSCOPY Right ORIF,FEMUR Left 08/10/2023 Procedure: ORIF LT FEMUR); Surgeon: Otf Birmingham MD; Location: [facility] OR; Service: OrthopaedicSurgery; Laterality: Left; AO# 4, AVAIL TF melvi left hip TONSILLECTOMY TRANSPOSITION,VEIN Left 04/20/2023 Procedure: (LT UPPER EXTREMITY AV FISTULA); Surgeon: Baljinder Sloan MD; Location: [facility] OR; Service: Vascular; Laterality: Left; IN [...] in consult. [HIGINIO] [address] eMlendrez, hospitalist on [facility] who has agrred to accept the [...] Living Will naming her daughter, Annette Burkett, Formerly named [facility] Care Surrogate. Placed copy in chart and [...] - 110 mg/dL 02/13/2025 6:49 PM EDT [facility] Comment: In the event of poor peripheral blood flow, venous or arterial blood should be used due to the potential of erroneous results. Notified Nurse RBV Adult Educator [id number] 02/13/2025 6:[address] [facility] Blood WHOLE BLOOD / Unknown 02/13/2025 6:48 PM EDT 02/13/2025 6:49 PM EDT Narrative [facility] - 02/13/2025 6:49 PM EDT Adult Educator ID is - [id number] us Briana Araiza MD POINT OF CARE TEST ORDERABLES Fi nal Result Performing Organization Address [facility] [place] Phone Number [facility] [address] [phone] * (ABNORMAL) Glucose, Nova Meter (02/13/2025 11:22 AM EDT) POC-GLUCOSE 344(H) 70 - 110 mg/dL 02/13/2025 11:25 AM EDT [facility] Comment: In the event of poor peripheral blood flow, venous or arterial blood should be used due to the potential of erroneous results. Notified Nurse RBV Adult Educator [id number] 02/13/2025 11:25 AM EDT [facility] Blood WHOLE BLOOD / Unknown 02/13/2025 11:22 AM EDT 02/13/2025 11:25 AM EDT Narrative [facility] - 02/13/2025 11:25 AM EDT Adult Educator ID is - [id number] us Briana Araiza MD POINT OF CARE TEST ORDERABLES Fi nal Result Performing Organization Address [facility] Co [place] Phone Number [facility] [address] [phone] * (ABNORMAL) Glucose, Nova Meter (02/13/2025 7:37 AM EDT) [facility] POC-GLUCOSE 278(H) 70 - 110 mg/dL 02/13/2025 7:39 AM EDT [facility] Comment: In the event of poor peripheral blood flow, venous or arterial blood should be used due to the potential of erroneous results. Notified Nurse RBV Adult Educator [id number] 02/13/2025 7:39 AM EDT [facility] Blood WHOLE BLOOD / Unknown 02/13/2025 7:37 AM EDT 02/13/2025 7:39 AM EDT Narrative [facility] - 02/13/2025 7:39 AM EDT Adult Educator ID is - [id number] us Briana Araiza MD POINT OF CARE TEST ORDERABLES Fi nal Result Performing Organization Address [facility]/ZIP Co de Phone Number [facility] [address] [phone] * Hepatitis B surface antigen (02/13/2025 5:08 AM EDT) [facility] Hepatitis B surface antigen Nonreactive Nonreactive 02/13/2025 7:19 AM EDT [facility] Blood Venipuncture / Unknown 02/13/2025 5:08 AM EDT 02/13/2025 5:46 AM EDT us Nataliya Cain MD LAB BLOOD ORDERABLES Final Resul t Performing Organization Address [facility]/ZIP Co de Phone Number [facility] [address] [phone] * (ABNORMAL) CBC with automated diff (02/13/2025 5:08 AM EDT) [facility] WBC 8.1 4.0 - 10.0 K/ L 02/13/2025 5:59 AM EDT [facility] RBC 3.34(L) 3.93 - 5.22 M/ L 02/13/2025 5:59 AM EDT [facility] Hemoglobin 10.7(L) 11.2 - 15.7 GM/DL 02/13/2025 5:59 AM EDT [facility] Hematocrit 32.4(L) 34.1 - 44.9 % 02/13/2025 5:59 AM EDT [facility] MCV 97(H) 79 - 95 fL 02/13/2025 5:59 AM EDT [facility] MCH 32.0 25.6 - 32.2 pg 02/13/2025 5:59 AM EDT [facility] MCHC 33.0 32.2 - 35.5 GM/DL 02/13/2025 5:59 AM EDT [facility] RDW 12.9 11.7 - 14.4 % 02/13/2025 5:59 AM EDT [facility] Platelets 241 140 - 375 K/CU MM 02/13/2025 5:59 AM EDT [facility] MPV 9.7 9.4 - 12.3 fL 02/13/2025 5:59 AM EDT [facility] % Neutros 60 34 - 71 % 02/13/2025 5:59 AM EDT [facility] % Lymphs 29 19 - 52 % 02/13/2025 5:59 AM EDT [facility] % Monos 9 5 - 13 % 02/13/2025 5:59 AM EDT [facility] % Eos 2 1 - 6 % 02/13/2025 5:59 AM EDT [facility] % Baso 1 0 - 1 % 02/13/2025 5:59 AM EDT [facility] NRBC Absolute <0.01 0 - 0.012 K/ul 02/13/2025 5:59 AM EDT [facility] # Neutros 4.82 1.56 - 6.13 K/ L 02/13/2025 5:59 AM EDT [facility] # Lymphs 2.32 1.18 - 3.74 K/ L 02/13/2025 5:59 AM EDT [facility] # Monos 0.70 0.24 - 0.86 K/ L 02/13/2025 5:59 AM EDT [facility] # Eos 0.13 0.04 - 0.36 K/ L 02/13/2025 5:59 AM EDT [facility] # Baso 0.04 0.01 - 0.08 K/ L 02/13/2025 5:59 AM EDT [facility] Immature Granulocytes-Re lative 0.60(H) 0.01 - 0.43 % 02/13/2025 5:59 AM EDT [facility] # IG 0.05(H) 0.00 - 0.03 K/uL 02/13/2025 5:59 AM EDT [facility] Blood Venipuncture / Unknown 02/13/2025 5:08 AM EDT 02/13/2025 5:54 AM EDT Narrative [facility] - 02/13/2025 5:59 AM EDT When [...] MD LAB BLOOD ORDERABLES Final Resul t [facility] [address] [phone] * (ABNORMAL) Basic Metabolic Panel (02/13/2025 5:08 AM EDT) Sodium 135(L) 136 - 145 meq/L 02/13/2025 6:19 AM EDT [facility] Potassium 4.3 3.4 - 5.1 meq/L 02/13/2025 6:19 AM EDT [facility] CO2 25 22 - 29 meq/L 02/13/2025 6:19 AM EDT [facility] Chloride 97(L) 98 - 112 meq/L 02/13/2025 6:19 AM EDT [facility] Glucose 276(H) 74 - 100 mg/dL 02/13/2025 6:19 AM EDT [facility] BUN 35.2(H) 9.8 - 20.1 mg/dL 02/13/2025 6:19 AM EDT [facility] Creatinine 6.77(H) 0.57 - 1.11 mg/dL 02/13/2025 6:19 AM EDT [facility] BUN/Creatinine 5(L) 8 - 20 02/13/2025 6:19 AM EDT [facility] Calcium 7.3(L) 8.4 - 10.2 mg/dL 02/13/2025 6:19 AM EDT [facility] Anion Gap 17(H) 4 - 12 02/13/2025 6:19 AM EDT [facility] eGFR (mL/min/1.73m2) 7(L) >=60 mL/min/1.7 3m2 02/13/2025 6:19 AM EDT [facility] Osmolality Calc 288.0 mOsm/kg 6:19 AM EDT [facility] Blood Venipuncture / Unknown 02/13/2025 5:08 AM EDT 02/13/2025 5:46 AM EDT Briana Araiza MD LAB BLOOD ORDERABLES Final Resul t [facility] [address] [phone] * Vancomycin level, random (02/13/2025 5:08 AM EDT) Vancomycin Rm 18.4 0.0 - 40.0 ug/mL 02/13/2025 6:19 AM EDT [facility] Comment: Therapeutic peak: >20 to 40 ug/mL Trough levels: 10 to 20 ug/mL Toxicity: > 80 ug/mL Blood Venipuncture / Unknown 02/13/2025 5:08 AM EDT 02/13/2025 5:46 AM EDT Olegario Varghese PA-C LAB BLOOD ORDERABLES Final R esult [facility] [address] [phone] * (ABNORMAL) Glucose, Nova Meter (02/12/2025 8:23 PM EDT) POC-GLUCOSE 316(H) 70 - 110 mg/dL 02/12/2025 8:24 PM EDT [facility] Comment: In the event of poor peripheral blood flow, venous or arterial blood should be used due to the potential of erroneous results. Notified Nurse RBV Adult Educator [id number] 02/12/2025 8:24 PM EDT [facility] Blood WHOLE BLOOD / Unknown 02/12/2025 8:23 PM EDT 02/12/2025 8:24 PM EDT Narrative [facility] - 02/12/2025 8:24 PM EDT Adult Educator ID is - [id number] us Briana Araiza MD POINT OF CARE TEST ORDERABLES Fi nal Result Performing Organization Address [facility] Co de Phone Number [facility] [address] [phone] * (ABNORMAL) Glucose, Nova Meter (02/12/2025 3:31 PM EDT) Pathologist [facility] POC-GLUCOSE 279(H) 70 - 110 mg/dL 02/12/2025 3:35 PM EDT [facility] Comment: In the event of poor peripheral blood flow, venous or arterial blood should be used due to the potential of erroneous results. Notified Nurse RBV Protocols Followed Adult Educator [id number] 02/12/2025 3:35 PM EDT [facility] Blood WHOLE BLOOD / Unknown 02/12/2025 3:31 PM EDT 02/12/2025 3:35 PM EDT Narrative [facility] - 02/12/2025 3:35 PM EDT Adult Educator ID is - [id number] us Briana Araiza MD POINT OF CARE TEST ORDERABLES Fi nal Result Performing Organization Address [facility] Co de Phone Number [facility] [address] [phone] * (ABNORMAL) Glucose, Nova Meter (02/12/2025 11:19 AM EDT) POC-GLUCOSE 230(H) 70 - 110 mg/dL 02/12/2025 11:23 AM EDT [facility] Comment: In the event of poor peripheral blood flow, venous or arterial blood should be used due to the potential of erroneous results. Protocols Followed Notified Nurse RBV Adult Educator [id number] 02/12/2025 11:23 AM EDT [facility] Blood WHOLE BLOOD / Unknown 02/12/2025 11:19 AM EDT 02/12/2025 11:23 AM EDT Narrative [facility] - 02/12/2025 11:23 AM EDT Adult Educator ID is - [id number] Briana Araiza MD POINT OF CARE TEST ORDERABLES Fi nal Result Performing Organization Address [facility] de Phone Number [facility] [address] [phone] * (ABNORMAL) Glucose, Nova Meter (02/12/2025 7:29 AM EDT) POC-GLUCOSE 203(H) 70 - 110 mg/dL 02/12/2025 7:31 AM EDT [facility] Comment: In the event of poor peripheral blood flow, venous or arterial blood should be used due to the potential of erroneous results. Notified Nurse RBV Protocols Followed Adult Educator [id number] 02/12/2025 7:31 AM EDT [facility] Blood WHOLE BLOOD / Unknown 02/12/2025 7:29 AM EDT 02/12/2025 7:31 AM EDT Narrative [facility] - 02/12/2025 7:31 AM EDT Adult Educator ID is - [id number] us Briana Araiza MD POINT OF CARE TEST ORDERABLES Fi nal Result Performing Organization Address [facility] Co de Phone Number [facility] [address] [phone] * (ABNORMAL) Glucose, Nova Meter (02/11/2025 8:02 PM EDT) POC-GLUCOSE 205(H) 70 - 110 mg/dL 02/16/2025 2:01 PM EDT [facility] Comment: In the event of poor peripheral blood flow, venous or arterial blood should be used due to the potential of erroneous results. Notified Nurse RBV Adult Educator [id number] 02/16/2025 2:01 PM EDT [facility] Blood WHOLE BLOOD / Unknown 02/11/2025 8:02 PM EDT 02/16/2025 2:01 PM EDT Narrative [facility] - 02/16/2025 2:01 PM EDT Adult Educator ID is - [id number] us Briana Araiza MD POINT OF CARE TEST ORDERABLES Fi nal Result Performing Organization Address [facility] Phone Number [facility] [address] [phone] * (ABNORMAL) Glucose, Nova Meter (02/11/2025 4:09 PM EDT) POC-GLUCOSE 208(H) 70 - 110 mg/dL 02/11/2025 4:14 PM EDT [facility] Comment: In the event of poor peripheral blood flow, venous or arterial blood should be used due to the potential of erroneous results. Notified Nurse RBV Adult Educator [id number] 02/11/2025 4:14 PM EDT [facility] Blood WHOLE BLOOD / Unknown 02/11/2025 4:09 PM EDT 02/11/2025 4:14 PM EDT Narrative [facility] - 02/11/2025 4:14 PM EDT Adult Educator ID is - [id number] us Briana Araiza MD POINT OF CARE TEST ORDERABLES Fi nal Result Performing Organization Address [facility] Co de Phone Number [facility] [address] [place] [address], [facility] [phone] * (ABNORMAL) Glucose, Nova Meter (02/11/2025 11:42 AM EDT) POC-GLUCOSE 240(H) 70 - 110 mg/dL 02/11/2025 11:45 AM EDT [facility] Comment: In the event of poor peripheral blood flow, venous or arterial blood should be used due to the potential of erroneous results. Notified Nurse RBV Adult Educator [id number] 02/11/2025 11:45 AM EDT [facility] Blood WHOLE BLOOD / Unknown 02/11/2025 11:42 AM EDT 02/11/2025 11:45 AM EDT Narrative [facility] - 02/11/2025 11:45 AM EDT Adult Educator ID is - [id number] us Briana Araiza MD POINT OF CARE TEST ORDERABLES Fi nal Result Performing Organization Address [facility] Phone Number [facility] [address] [phone] * (ABNORMAL) Glucose, Nova Meter (02/11/2025 7:36 AM EDT) POC-GLUCOSE 234(H) 70 - 110 mg/dL 02/11/2025 8:10 AM EDT [facility] Comment: In the event of poor peripheral blood flow, venous or arterial blood should be used due to the potential of erroneous results. Notified Nurse RBV Adult Educator [id number] 02/11/2025 8:10 AM EDT [facility] Blood WHOLE BLOOD / Unknown 02/11/2025 7:36 AM EDT 02/11/2025 8:10 AM EDT Narrative [facility] - 02/11/2025 8:10 AM EDT Adult Educator ID is - [id number] us Briana Araiza MD POINT OF CARE TEST ORDERABLES Fi nal Result Performing Organization Address [facility] Co de Phone Number [facility] [address] [phone] * (ABNORMAL) C-Reactive Protein (02/11/2025 5:31 AM EDT) Pathologist [facility] CRP 11.0(H) 0.0 - 5.0 mg/L 02/11/2025 6:27 AM EDT [facility] Blood Venipuncture / Unknown 02/11/2025 5:31 AM EDT 02/11/2025 5:52 AM EDT us Briana Araiza MD LAB BLOOD ORDERABLES Final Resul t [facility] [address] [phone] * (ABNORMAL) CBC with automated diff (02/11/2025 5:31 AM EDT) Pathologist [facility] WBC 8.7 4.0 - 10.0 K/ L 02/11/2025 6:07 AM EDT [facility] RBC 3.68(L) 3.93 - 5.22 M/ L 02/11/2025 6:07 AM EDT [facility] Hemoglobin 12.0 11.2 - 15.7 GM/DL 02/11/2025 6:07 AM EDT [facility] Hematocrit 35.9 34.1 - 44.9 % 02/11/2025 6:07 AM EDT [facility] MCV 98(H) 79 - 95 fL 02/11/2025 6:07 AM EDT [facility] MCH 32.6(H) 25.6 - 32.2 pg 02/11/2025 6:07 AM EDT [facility] MCHC 33.4 32.2 - 35.5 GM/DL 02/11/2025 6:07 AM EDT [facility] RDW 12.9 11.7 - 14.4 % 02/11/2025 6:07 AM EDT [facility] Platelets 291 140 - 375 K/CU MM 02/11/2025 6:07 AM EDT [facility] MPV 9.3(L) 9.4 - 12.3 fL 02/11/2025 6:07 AM EDT [facility] % Neutros 66 34 - 71 % 02/11/2025 6:07 AM EDT [facility] % Lymphs 24 19 - 52 % 02/11/2025 6:07 AM EDT [facility] % Monos 7 5 - 13 % 02/11/2025 6:07 AM EDT [facility] % Eos 2 1 - 6 % 02/11/2025 6:07 AM EDT [facility] % Baso 1 0 - 1 % 02/11/2025 6:07 AM EDT [facility] NRBC Absolute <0.01 0 - 0.012 K/ul 02/11/2025 6:07 AM EDT [facility] # Neutros 5.71 1.56 - 6.13 K/ L 02/11/2025 6:07 AM EDT [facility] # Lymphs 2.12 1.18 - 3.74 K/ L 02/11/2025 6:07 AM EDT [facility] # Monos 0.58 0.24 - 0.86 K/ L 02/11/2025 6:07 AM EDT [facility] # Eos 0.17 0.04 - 0.36 K/ L 02/11/2025 6:07 AM EDT [facility] # Baso 0.04 0.01 - 0.08 K/ L 02/11/2025 6:07 AM EDT [facility] Immature Granulocytes-Re lative 0.70(H) 0.01 - 0.43 % 02/11/2025 6:07 AM EDT [facility] # IG 0.06(H) 0.00 - 0.03 K/uL 02/11/2025 6:07 AM EDT [facility] Blood Venipuncture / Unknown 02/11/2025 5:31 AM EDT 02/11/2025 5:52 AM EDT [facility] - 02/11/2025 6:07 AM EDT When [...] MD LAB BLOOD ORDERABLES Final Resul t [facility] [address] [phone] * (ABNORMAL) Basic Metabolic Panel (02/11/2025 5:31 AM EDT) Sodium 135(L) 136 - 145 meq/L 02/11/2025 6:27 AM EDT [facility] Potassium 4.0 3.4 - 5.1 meq/L 02/11/2025 6:27 AM EDT [facility] CO2 25 22 - 29 meq/L 02/11/2025 6:27 AM EDT [facility] Chloride 98 98 - 112 meq/L 02/11/2025 6:27 AM EDT [facility] Glucose 216(H) 74 - 100 mg/dL 02/11/2025 6:27 AM EDT [facility] BUN 19.4 9.8 - 20.1 mg/dL 02/11/2025 6:27 AM EDT [facility] Creatinine 4.17(H) 0.57 - 1.11 mg/dL 02/11/2025 6:27 AM EDT [facility] BUN/Creatinine 5(L) 8 - 20 02/11/2025 6:27 AM EDT [facility] Calcium 7.9(L) 8.4 - 10.2 mg/dL 02/11/2025 6:27 AM EDT [facility] Anion Gap 16(H) 4 - 12 02/11/2025 6:27 AM EDT [facility] eGFR (mL/min/1.73m2) 12(L) >=60 mL/min/1.7 3m2 02/11/2025 6:27 AM EDT [facility] Osmolality Calc 279.0 mOsm/kg 6:27 AM EDT [facility] Blood Venipuncture / Unknown 02/11/2025 5:31 AM EDT 02/11/2025 5:52 AM EDT Briana Araiza MD LAB BLOOD ORDERABLES Final Resul t [facility] [address] [place] [address], [facility] [phone] * (ABNORMAL) Glucose, Nova Meter (02/10/2025 7:54 PM EDT) POC-GLUCOSE 176(H) 70 - 110 mg/dL 02/10/2025 7:56 PM EDT [facility] Comment: In the event of poor peripheral blood flow, venous or arterial blood should be used due to the potential of erroneous results. Notified Nurse RBV Adult Educator [id number] 02/10/2025 7:56 PM EDT [facility] Blood WHOLE BLOOD / Unknown 02/10/2025 7:54 PM EDT 02/10/2025 7:56 PM EDT [facility] - 02/10/2025 7:56 PM EDT Adult Educator ID is - [id number] us Briana Araiza MD POINT OF CARE TEST ORDERABLES Fi nal Result [facility] [address] [place] [address], [facility] [phone] * (ABNORMAL) Glucose, Nova Meter (02/10/2025 6:20 PM EDT) POC-GLUCOSE 149(H) 70 - 110 mg/dL 02/10/2025 6:22 PM EDT [facility] Comment: In the event of poor peripheral blood flow, venous or arterial blood should be used due to the potential of erroneous results. Protocols Followed Adult Educator [id number] 02/10/2025 6:22 PM EDT [facility] Blood WHOLE BLOOD / Unknown 02/10/2025 6:20 PM EDT 02/10/2025 6:22 PM EDT Narrative [facility] - 02/10/2025 6:22 PM EDT Adult Educator ID is - [id number] Briana Araiza MD POINT OF CARE TEST ORDERABLES Fi nal Result Performing Organization Address City/[facility]/ZIP Co de Phone Number [facility] [address] [phone] * (ABNORMAL) Glucose, Nova Meter (02/10/2025 12:23 PM EDT) POC-GLUCOSE 274(H) 70 - 110 mg/dL 02/10/2025 12:26 PM EDT [facility] Comment: In the event of poor peripheral blood flow, venous or arterial blood should be used due to the potential of erroneous results. Protocols Followed Notified Nurse RBV Adult Educator [id number] 02/10/2025 12:26 PM EDT [facility] Blood WHOLE BLOOD / Unknown 02/10/2025 12:23 PM EDT 02/10/2025 12:26 PM EDT [facility] - 02/10/2025 12:26 PM EDT Adult Educator ID is - [id number] Briana Araiza MD POINT OF CARE TEST ORDERABLES Fi nal Result Performing Organization Address City/[facility] Co de Phone Number [facility] [address] [phone] * (ABNORMAL) Glucose, Nova Meter (02/10/2025 7:52 AM EDT) POC-GLUCOSE 235(H) 70 - 110 mg/dL 02/10/2025 8:36 AM EDT [facility] Comment: In the event of poor peripheral blood flow, venous or arterial blood should be used due to the potential of erroneous results. Protocols Followed Notified Nurse RBV Adult Educator [id number] 02/10/2025 8:36 AM EDT [facility] Blood WHOLE BLOOD / Unknown 02/10/2025 7:52 AM EDT 02/10/2025 8:36 AM EDT [facility] - 02/10/2025 8:36 AM EDT Adult Educator ID is - [id number] us Briana Araiza MD POINT OF CARE TEST ORDERABLES Fi nal Result [facility] [address] [phone] * (ABNORMAL) Glucose, Nova Meter (02/09/2025 8:08 PM EDT) POC-GLUCOSE 172(H) 70 - 110 mg/dL 02/09/2025 8:09 PM EDT [facility] Comment: In the event of poor peripheral blood flow, venous or arterial blood should be used due to the potential of erroneous results. Protocols Followed Adult Educator [id number] 02/09/2025 8:09 PM EDT [facility] Blood WHOLE BLOOD / Unknown 02/09/2025 8:08 PM EDT 02/09/2025 8:09 PM EDT [facility] - 02/09/2025 8:09 PM EDT Adult Educator ID is - [id number] us Briana Araiza MD POINT OF CARE TEST ORDERABLES Fi nal Result [facility] [address] [phone] * (ABNORMAL) Glucose, Nova Meter (02/09/2025 4:16 PM EDT) POC-GLUCOSE 232(H) 70 - 110 mg/dL 02/09/2025 4:18 PM EDT [facility] Comment: In the event of poor peripheral blood flow, venous or arterial blood should be used due to the potential of erroneous results. Notified Nurse RBV Adult Educator [id number] 02/09/2025 4:18 PM EDT [facility] Blood WHOLE BLOOD / Unknown 02/09/2025 4:16 PM EDT 02/09/2025 4:18 PM EDT Narrative [facility] - 02/09/2025 4:18 PM EDT Adult Educator ID is - [id number] us Briana Araiza MD POINT OF CARE TEST ORDERABLES Fi nal Result Performing Organization Address [facility] Co de Phone Number [facility] [address] [phone] * (ABNORMAL) Glucose, Nova Meter (02/09/2025 11:16 AM EDT) POC-GLUCOSE 154(H) 70 - 110 mg/dL 02/09/2025 11:22 AM EDT [facility] Comment: In the event of poor peripheral blood flow, venous or arterial blood should be used due to the potential of erroneous results. Notified Nurse RBV Adult Educator [id number] 02/09/2025 11:22 AM EDT [facility] Blood WHOLE BLOOD / Unknown 02/09/2025 11:16 AM EDT 02/09/2025 11:22 AM EDT Narrative [facility] - 02/09/2025 11:22 AM EDT Adult Educator ID is - [id number] Briana Araiza MD POINT OF CARE TEST ORDERABLES Fi nal Result Performing Organization Address [facility] Co de Phone Number [facility] [address] [phone] * Ultrasound hemodialysis access (02/09/2025 9:30 AM EDT) Anatomical Region Laterality Modality Vascular, Abdomen Vascular Ultra sound 02/09/2025 8:47 AM EDT Narrative 02/09/2025 3:06 PM EDT Vascular Upper Extremities Arterial Duplex Procedure Demographics Patient Name YANG Norris Age 54 Patient Number [id number] Gender Female Race Unknown Ethnicity Corporate ID [id number] Height 66 Date of 1970 Weight 268 Accession Number [id number] BSA 2.27 m^2 Room Number 400 BMI 43.26 kg/m^2 Referring Physician ERNST AVILA Physician [employer] Teacher OLIVIA Blount Procedure Type of Study: Extremities [...] Name YANG Norris Age 54 Patient Number [id number] Gender Female Race Unknown Ethnicity Corporate ID [id number] Height 66 Date of 1970 Weight 268 Accession Number [id number] BSA 2.27 m^2 Room Number 400 BMI 43.26kg/m^2 Referring Physician ERNST DÍAZ Interpreting ANNEMARIE AVILA Physician [employer] History Teacher OLIVIA Blount Procedure Type of Study: Extremities [...] Nova Meter (02/09/2025 7:32 AM EDT) Pathologist [facility] POC-GLUCOSE 181(H) 70 - 110 mg/dL 02/09/2025 7:35 AM EDT [facility] Comment: In the event of poor peripheral blood flow, venous or arterial blood should be used due to the potential of erroneous results. Notified Nurse RBV Adult Educator [id number] 02/09/2025 7:35 AM [facility] Blood WHOLE BLOOD / Unknown 02/09/2025 7:32 AM EDT 02/09/2025 7:35 AM EDT Narrative [facility] - 02/09/2025 7:35 AM EDT Adult Educator ID is - [id number] Olegario Varghese PA-C POINT OF CARE TEST ORDERABLE S Final Result [facility] [address] [phone] * (ABNORMAL) Comprehensive metabolic panel (02/09/2025 4:41 AM EDT) Sodium 142 136 - 145 meq/L 02/09/2025 6:09 AM EDT [facility] Potassium 4.0 3.4 - 5.1 meq/L 02/09/2025 6:09 AM EDT [facility] Chloride 100 98 - 112 meq/L 02/09/2025 6:09 AM EDT [facility] CO2 31(H) 22 - 29 meq/L 02/09/2025 6:09 AM EDT [facility] Calcium 9.0 8.4 - 10.2 mg/dL 02/09/2025 6:09 AM EDT [facility] Glucose 197(H) 74 - 100 mg/dL 02/09/2025 6:09 AM EDT [facility] BUN 29.8(H) 9.8 - 20.1 mg/dL 02/09/2025 6:09 AM EDT [facility] Creatinine 4.72(H) 0.57 - 1.11 mg/dL 02/09/2025 6:09 AM EDT [facility] BUN/Creatinine 6(L) 8 - 20 02/09/2025 6:09 AM EDT [facility] eGFR (mL/min/1.73m2) 10(L) >=60 mL/min/1. 73m2 02/09/2025 6:09 AM EDT [facility] Albumin 3.0(L) 3.5 - 5.0 g/dL 02/09/2025 6:09 AM EDT [facility] Alkaline Phosphatase 175(H) 40 - 150 U/L 02/09/2025 6:09 AM EDT [facility] ALT 35(H) <=34 U/L 02/09/2025 6:09 AM EDT [facility] Comment: ALT2 reagent used for testing does not contain P5P supplementation and therefore may miss ALT elevations in patients with B6 deficiency. This population may be as high as 10% in the [place], with risk factors including malabsorption, drug interactions, and alcoholic hepatitis. AST 28 11 - 34 U/L 02/09/2025 6:09 AM EDT [facility] Comment: AST2 reagent used for testing does not contain P5P supplementation and therefore may miss AST elevations in patients with B6 deficiency. This population may be as high as 10% in the [place], with risk factors including malabsorption, drug interactions, and alcoholic hepatitis. Total Bilirubin 0.4 0.2 - 1.2 mg/dL 02/09/2025 6:09 AM EDT [facility] Protein, Total 6.6 6.4 - 8.3 g/dL 02/09/2025 6:09 AM EDT [facility] Globulin 3.6 2.5 - 4.1 g/dL 02/09/2025 6:09 AM EDT [facility] Anion Gap 15(H) 4 - 12 02/09/2025 6:09 AM EDT [facility] A/G Ratio 0.8 0.7 - 1.9 02/09/2025 6:09 AM EDT [facility] Osmolality Calc 294.7 mOsm/kg 6:09 AM EDT [facility] Blood Venipuncture / Unknown 02/09/2025 4:41 AM EDT 02/09/2025 5:46 AM EDT us Olegario Varghese PA-C LAB BLOOD ORDERABLES Final R esult [facility] [address] [place] [address], [facility] [phone] * (ABNORMAL) CBC with automated diff (02/09/2025 4:41 AM EDT) WBC 8.4 4.0 - 10.0 K/ L 02/09/2025 6:04 AM EDT [facility] RBC 3.46(L) 3.93 - 5.22 M/ L 02/09/2025 6:04 AM EDT [facility] Hemoglobin 11.0(L) 11.2 - 15.7 GM/DL 02/09/2025 6:04 AM EDT [facility] Hematocrit 34.5 34.1 - 44.9 % 02/09/2025 6:04 AM EDT [facility] MCV 100(H) 79 - 95 fL 02/09/2025 6:04 AM EDT [facility] MCH 31.8 25.6 - 32.2 pg 02/09/2025 6:04 AM EDT [facility] MCHC 31.9(L) 32.2 - 35.5 GM/DL 02/09/2025 6:04 AM EDT [facility] RDW 13.4 11.7 - 14.4 % 02/09/2025 6:04 AM EDT [facility] Platelets 313 140 - 375 K/CU MM 02/09/2025 6:04 AM EDT [facility] MPV 9.7 9.4 - 12.3 fL 02/09/2025 6:04 AM EDT [facility] % Neutros 59 34 - 71 % 02/09/2025 6:04 AM EDT [facility] % Lymphs 30 19 - 52 % 02/09/2025 6:04 AM EDT [facility] % Monos 7 5 - 13 % 02/09/2025 6:04 AM EDT [facility] % Eos 2 1 - 6 % 02/09/2025 6:04 AM EDT [facility] % Baso 1 0 - 1 % 02/09/2025 6:04 AM EDT [facility] NRBC Absolute <0.01 0 - 0.012 K/ul 02/09/2025 6:04 AM EDT [facility] # Neutros 4.97 1.56 - 6.13 K/ L 02/09/2025 6:04 AM EDT [facility] # Lymphs 2.54 1.18 - 3.74 K/ L 02/09/2025 6:04 AM EDT [facility] # Monos 0.62 0.24 - 0.86 K/ L 02/09/2025 6:04 AM EDT [facility] # Eos 0.16 0.04 - 0.36 K/ L 02/09/2025 6:04 AM EDT [facility] # Baso 0.05 0.01 - 0.08 K/ L 02/09/2025 6:04 AM EDT [facility] Immature Granulocytes-Re lative 1.10(H) 0.01 - 0.43 % 02/09/2025 6:04 AM EDT [facility] # IG 0.09(H) 0.00 - 0.03 K/uL 02/09/2025 6:04 AM EDT [facility] Blood Venipuncture / Unknown 02/09/2025 4:41 AM EDT 02/09/2025 5:57 AM EDT Narrative [facility] - 02/09/2025 6:04 AM EDT When [...] PA-C LAB BLOOD ORDERABLES Final R esult [facility] [address] [phone] * (ABNORMAL) Wound Culture + Gram Stain (02/08/2025 11:19 PM EDT) Result Moderate Growth Methicillin resistant Staphylococcus aureus(A) 02/12/2025 8:05 AM EDT [facility] Comment:Resistant organism r equires isolation protocol. Result Moderate Growth Staphylococcus epidermidis(A) 02/12/2025 8:05 AM EDT [facility] Gram Stain Result No cells seen 02/12/2025 8:05 AM EDT [facility] Gram Stain Result Few gram positive cocci in pairs and clusters 02/12/2025 8:05 AM EDT [facility] Gram Stain Result Few gram positive cocci 02/12/2025 8:05 AM EDT [facility] Wound RIGHT UPPER ARM STRUCTURE / [...] MICROBIOLOGY - GENERAL ORDER EAN Final Result [facility] [address] [phone] * (ABNORMAL) Glucose, Nova Meter (02/08/2025 10:58 PM EDT) [facility] POC-GLUCOSE 131(H) 70 - 110 mg/dL 02/08/2025 10:59 PM EDT [facility] Comment: In the event of poor peripheral blood flow, venous or arterial blood should be used due to the potential of erroneous results. Notified Nurse [facility] Adult Educator [phone] 02/08/2025 10:59 PM EDT [facility] Blood WHOLE BLOOD / Unknown 02/08/2025 10:58 PM EDT 02/08/2025 10:59 PM EDT Narrative [facility] - 02/08/2025 10:59 PM EDT Adult Educator ID is - [id number] us Olegario Varghese PA-C POINT OF CARE TEST ORDERABLE S Final Result [facility] [address] [phone] * CT upper extremity without contrast right [...] Hold for add-ons. 02/08/2025 6:01 PM EDT [facility] Comment:Auto resulted. Blood Venipuncture / Unknown 02/08/2025 4:17 PM EDT 02/08/2025 4:20 PM EDT Loco Cortes MD LAB BLOOD ORDERABLES Final Res ult Performing Organization Address [facility] Co de Phone Number [facility] [address] [phone] * Blue Top Extra Tubes (02/08/2025 4:17 PM EDT) HOLD SPECIMEN (SJ - BKR) Hold for add-ons. 02/08/2025 6:01 PM EDT [facility] Comment:Auto resulted. Blood Venipuncture / Unknown 02/08/2025 4:17 PM EDT 02/08/2025 4:20 PM EDT Loco Cortes MD LAB BLOOD ORDERABLES Final Res ult Performing Organization Address [facility] Co de Phone Number [facility] [address] [phone] * Blood Culture (02/08/2025 4:17 PM EDT) Result No growth in 5 days 02/13/2025 5:00 PM EDT [facility] Blood ENTIRE RIGHT UPPER ARM / Unknown Venipuncture / Unknown 02/08/2025 4:17 PM EDT 02/08/2025 4:20 PM EDT Narrative [facility] - 02/13/2025 5:00 PM EDT Blood volume is not within specification. May compromise patient blood culture results. [employer] MICROBIOLOGY - GENERAL ORDERABLE S Final Result Performing Organization Address City/[facility] Co de Phone Number [facility] [address] [phone] * (ABNORMAL) C-Reactive Protein (02/08/2025 4:00 PM EDT) CRP 18.6(H) 0.0 - 5.0 mg/L 02/08/2025 4:39 PM EDT [facility] Blood Venipuncture / Unknown 02/08/2025 4:00 PM EDT 02/08/2025 4:20 PM EDT [employer] LAB BLOOD ORDERABLES Final Resul t Performing Organization Address City/[facility]/ZIP Co de Phone Number [facility] [address] [phone] * (ABNORMAL) Sedimentation rate (02/08/2025 4:00 PM EDT) Sed Rate 35(H) 0 - 30 mm/HR 02/08/2025 4:43 PM EDT [facility] Blood Venipuncture / Unknown 02/08/2025 4:00 PM EDT 02/08/2025 4:20 PM EDT [facility] LAB BLOOD ORDERABLES Final Resul t [facility] [address] [phone] * Lactic Acid with reflex (SJ) (02/08/2025 4:00 PM EDT) Lactic Acid Level (mmol/L) 1.7 0.5 - 2.2 mmol/L 02/08/2025 4:39 PM EDT [facility] Blood Venipuncture / Unknown 02/08/2025 4:00 PM EDT 02/08/2025 4:20 PM EDT us Yuri Ocampo DO LAB BLOOD ORDERABLES Final Resul t Performing Organization Address [facility] de Phone Number [facility] [address] [phone] * Blood Culture (02/08/2025 4:00 PM EDT) Result No growth in 5 days 02/13/2025 5:00 PM EDT [facility] Blood Venipuncture / Unknown 02/08/2025 4:00 PM EDT 02/08/2025 4:20 PM EDT Narrative [facility] - 02/13/2025 5:00 PM EDT Blood volume is not within specification. May compromise patient blood culture results. us Yuri Ocampo DO MICROBIOLOGY - GENERAL ORDERABLE S Final Result Performing Organization Address [facility] Co de Phone Number [facility] [address] [phone] * (ABNORMAL) Basic Metabolic Panel (02/08/2025 4:00 PM EDT) Sodium 142 136 - 145 meq/L 02/08/2025 4:39 PM EDT [facility] Potassium 3.8 3.4 - 5.1 meq/L 02/08/2025 4:39 PM EDT [facility] CO2 30(H) 22 - 29 meq/L 02/08/2025 4:39 PM EDT [facility] Chloride 99 98 - 112 meq/L 02/08/2025 4:39 PM EDT [facility] Glucose 155(H) 74 - 100 mg/dL 02/08/2025 4:39 PM EDT [facility] BUN 21.5(H) 9.8 - 20.1 mg/dL 02/08/2025 4:39 PM EDT [facility] Creatinine 3.62(H) 0.57 - 1.11 mg/dL 02/08/2025 4:39 PM EDT [facility] BUN/Creatinine 6(L) 8 - 20 02/08/2025 4:39 PM EDT [facility] Calcium 9.0 8.4 - 10.2 mg/dL 02/08/2025 4:39 PM EDT [facility] Anion Gap 17(H) 4 - 12 02/08/2025 4:39 PM EDT [facility] eGFR (mL/min/1.73m2) 14(L) >=60 mL/min/1.7 3m2 02/08/2025 4:39 PM EDT [facility] Osmolality Calc 289.4 mOsm/kg 4:39 PM EDT [facility] Blood Venipuncture / Unknown 02/08/2025 4:00 PM EDT 02/08/2025 4:20 PM EDT Narrative [facility] - 02/08/2025 4:39 PM EDT Specimen slightly hemolyzed us Yuri Ocampo DO LAB BLOOD ORDERABLES Final Resul t [facility] [address] [place] [address], [facility] [phone] * (ABNORMAL) CBC with Auto Diff (02/08/2025 4:00 PM EDT) WBC 8.9 4.0 - 10.0 K/ L 02/08/2025 4:24 PM EDT [facility] RBC 3.28(L) 3.93 - 5.22 M/ L 02/08/2025 4:24 PM EDT [facility] Hemoglobin 10.7(L) 11.2 - 15.7 GM/DL 02/08/2025 4:24 PM EDT [facility] Hematocrit 32.0(L) 34.1 - 44.9 % 02/08/2025 4:24 PM EDT [facility] MCV 98(H) 79 - 95 fL 02/08/2025 4:24 PM EDT [facility] MCH 32.6(H) 25.6 - 32.2 pg 02/08/2025 4:24 PM EDT [facility] MCHC 33.4 32.2 - 35.5 GM/DL 02/08/2025 4:24 PM EDT [facility] RDW 13.2 11.7 - 14.4 % 02/08/2025 4:24 PM EDT [facility] Platelets 320 140 - 375 K/CU MM 02/08/2025 4:24 PM EDT [facility] MPV 9.6 9.4 - 12.3 fL 02/08/2025 4:24 PM EDT [facility] % Neutros 65 34 - 71 % 02/08/2025 4:24 PM EDT [facility] % Lymphs 25 19 - 52 % 02/08/2025 4:24 PM EDT [facility] % Monos 6 5 - 13 % 02/08/2025 4:24 PM EDT [facility] % Eos 2 1 - 6 % 02/08/2025 4:24 PM EDT [facility] % Baso 1 0 - 1 % 02/08/2025 4:24 PM EDT [facility] NRBC Absolute <0.01 0 - 0.012 K/ul 02/08/2025 4:24 PM EDT [facility] # Neutros 5.86 1.56 - 6.13 K/ L 02/08/2025 4:24 PM EDT [facility] # Lymphs 2.24 1.18 - 3.74 K/ L 02/08/2025 4:24 PM EDT [facility] # Monos 0.57 0.24 - 0.86 K/ L 02/08/2025 4:24 PM EDT [facility] # Eos 0.14 0.04 - 0.36 K/ L 02/08/2025 4:24 PM EDT [facility] # Baso 0.05 0.01 - 0.08 K/ L 02/08/2025 4:24 PM EDT [facility] Immature Granulocytes-Re lative 0.90(H) 0.01 - 0.43 % 02/08/2025 4:24 PM EDT [facility] # IG 0.08(H) 0.00 - 0.03 K/uL 02/08/2025 4:24 PM EDT [facility] Blood Venipuncture / Unknown 02/08/2025 4:00 PM EDT 02/08/2025 4:20 PM EDT Narrative [facility] - 02/08/2025 4:24 PM EDT When [...] DO LAB BLOOD ORDERABLES Final Resul t [facility] [address] [phone] documented in this encounter Visit Diagnoses Diagnosis [...] Blood Sugar is less than 180 between [id number], DO NOT give corrective insulin unless otherwise [...] pharmacy when due - must stay in cereal supervisor bottle with desiccant until time of use [...] Provider: Yvonne Hawk, BENNETT)[id number] (Given - Provider: Matrin Parra, BENNETT) 0908 (Given - Provider: Yvonne [...] Blood Sugar is less than 180 between 5039-2208, DO NOT give corrective insulin unless otherwise [...] pharmacy when due - must stay in cereal supervisor bottle with desiccant until time of use [...] documented as of this encounter Care Teams Burr Sander Relationship Specialty Start Date End Date Wally Yoo MD [address] [place] [address] PCP - General Family Medicine 01/11/25 documented as of this encounter
--- OUTSIDE RECORDS SUMMARY | 2025-03-14 09:29 | XMS_ITS | Encounter Summary ---
Author Organization [employer] ([place], [place], [place], [place]) Address [address] [place] [address] Care Team Providers Care Power Cutting Machine Operator Name Role Phone Wally Yoo MD Primary Care Provider [phone] Encounter Details Date Type Department Care Team [...] Do you speak a language other than Portuguese at [facility]? No 02/09/2025 Do you want help [...] documented as of this encounter Care Teams Power Cutting Machine Operator Relationship Specialty Start Date End Date Wally Yoo MD [address] [place] [address] PCP - General Family Medicine 01/11/25 documented as of this encounter
--- NOTE | 2025-03-14 09:30 | XR_ITS ---
FINAL REPORT TECHNIQUE: Bone densitometry calculations of the lumbar spine, right hip, and left forearm were obtained. CLINICAL HISTORY: osteopenia COMPARISON: None FINDINGS: Using L1-4, the bone mineral density of the spine is 0.836 g/cm2, corresponding to T-score of -1.9 and a Z score of -0.9. This is within the range of osteopenia. Using the right hip, the bone mineral density of the femoral neck is 0.563 g/cm2, corresponding to a T-score of -2.6 and a Z-score of -1.5. This is within the range of osteoporosis. Using the left forearm, the bone mineral density of the mid is 0.369 g/cm?, corresponding to a T-score of -4.3 and a Z-score of -3.4. This is within the range of osteoporosis. NOTE: T-score: Standard deviation compared with peak bone mass of young adult mean. *Following the recommendations of the International Society of Bone densitometry, classification of hip BMD is based on the lower of two T-scores; total hip or femoral neck. IMPRESSION: 1. Bone mineral density of the lumbar spine within the range of osteopenia. 2. Bone mineral density of the right femoral neck and left forearm within the range of osteoporosis. Reviewed, Interpreted and Dictated by Abbi Burnett MD Transcribed by Joyce Overton Authenticated and [facility]
--- OUTSIDE RECORDS SUMMARY | 2025-03-14 09:30 | XMS_ITS | Referral Summary ---
Author Organization [employer] ([place], [place], [place], [place]) Address [address] [place] [address] Care Team Providers Care Telephone Lineman Name Role Phone Wally Yoo MD Primary Care Provider [phone] Encounters Date Type Department Care Team Description 02/08/2025 3:54 PM EDT - 02/13/2025 8:47 PM EDT Hospital Encounter [facility] 4 Interventional Care Unit 1 [place] [id number] Yuri Ocampo DO Elliott, Jayden, PA-C Lewis, Paige, MD Zohary, Yasser, MD Surgical site infection (Primary Dx) Discharge Disposition: [facility] Care 02/08/2025 Travel 01/11/2025 11:35 AM EDT - 01/14/2025 4:17 PM EDT Hospital Encounter [facility] 3B Unit [address] [place] [address] Benedict Fleming MD Elliott, Jayden, PA-C Siddiqi, Ismaeel, DO Elbita, Omar, MD Ali, Amjad, MD Generalized weakness (Primary Dx); Primary hypertension; Nausea and vomiting, unspecified vomiting type; Chronic renal failure, unspecified CKD stage Discharge Disposition: Home or Self Care 01/11/2025 Travel 01/10/2025 Travel 01/10/2025 1:51 PM EDT Anesthesia Event [facility] Operating Room [address] [place] [address] Pro Barr MD Littles, Joel T, MD 01/10/2025 10:59 AM EDT - 01/10/2025 12:29 PM EDT Surgery [facility] Operating Room 1 [place] [address] Baljinder Sloan MD LEFT IJ tunneled catheter exchanged RIGHT brachiocephalic arteriovenous fistula creation 01/10/2025 12:29 PM EDT - 01/10/2025 5:38 PM EDT Hospital Encounter [facility] Operating Room 1 [place] [address] Baljinder Sloan MD Discharge Disposition: Home or [...] unspecified 10/06/2022 Iron deficiency anemia, unspecified 10/06/2022 senior care (current) use of insulin 10/06/2022 Morbid (severe) [...] your living situation today? I have a [facility] place to live 02/09/2025 Think about [...] Do you speak a language other than Panamanian at [facility]? No 02/09/2025 Do you want help [...] on file Medical Devices Implanted Type Area Tool Engine Lathe Set Up Operator Device Identifier Shelf Expiration Date Model / Serial / Lot Scr + Lt Silvina 5.5 Ti - 75mm - [id number] Implanted:Qty : 1 on 08/10/2023 at [facility] IMPLANTS Left: Leg SYNTHES TRAUMA 5 / 5 / Plt Femur 4 Hole Left 120.551 - [id number] Implanted:Qty : 1 on 08/10/2023 at [facility] IMPLANTS Left: Leg SYNTHES TRAUMA 120.55 1 / 1 / Scr Crtx D/L St 4.5x52 Ti Ns 414.852 - [id number] Implanted:Qty : 1 on 08/10/2023 at [facility] IMPLANTS Left: Leg SYNTHES TRAUMA 414.852 / 414.852 / Scr Kirstin Hd St [id number] Ti 413.370 - [id number] Implanted:Qty : 1 on 08/10/2023 at [facility] IMPLANTS Left: Leg SYNTHES TRAUMA 413.370 / 413.370 / Scr Kirstin Head [id number] Ti 413.380 - [id number] Implanted:Qty : 1 on 08/10/2023 at [facility] IMPLANTS Left: Leg SYNTHES TRAUMA 413.380 / 413.380 / Scr Kirstin Head 5.1wfp38ct Ti 413.365 - [id number] Implanted:Qty : 1 on 08/10/2023 at [facility] IMPLANTS Left: Leg SYNTHES TRAUMA 413.365 / 413.365 / Scr Kirstin Head [id number] Ti 413.350 - [id number] Implanted:Qty : 2 [...] / 04.354.66 5 / Grft Vasc Collagen 1pwc03bs Ag616 - [id number] Implanted:Qty : 1 on 01/19/2024 by Baljinder Sloan MD at [facility] IMPLANTS Left: Arm Upper ARTEG[employer]FT [id number] 02/28/2024 AG616 / 0000 / [id number] Explanted Type Area Tool Engine Lathe Set Up Operator Device Identifier Shelf Expiration Date Model / Serial / Lot Scr Kirstin Hd Slf Tap 5.0x90mm Ti 413.390 - [id number] Explanted:Qty: 1 on 08/10/2023 at [facility] IMPLANTS Left: Leg SYNTHES TRAUMA 413.390 / 413.390 / Scr + Lt Silvina 5.5 Ti - 55mm 04.354.655 - [id number] Explanted:Qty: 1 on 08/10/2023 at [facility] IMPLANTS Left: Leg SYNTHES TRAUMA 04.354.655 / 04.354.655 / Scr Kirstin Head 5.4cyw74ed Ti 413.355 - [id number] Explanted:Qty: 1 on [...] EKG-SCANNED 01/11/2025 NOVA GLUCOSE POC Routine 01/10/2025 4:3 9 PM EDT [place] ARTERIOVENOUS ANASTOMOSIS OPEN DIRECT 01/10/2025 1:50 PM [...] - 110 mg/dL 02/13/2025 6:49 PM EDT [facility] Comment: In the event of poor peripheral blood flow, venous or arterial blood should be used due to the potential of erroneous results. Notified Nurse RBV Forklift Technician [id number] 02/13/2025 6:49 PM EDT [facility] Blood WHOLE BLOOD / Unknown 02/13/2025 6:48 PM EDT 02/13/2025 6:49 PM EDT Narrative [facility] - 02/13/2025 6:49 PM EDT Forklift Technician ID is - [id number] us Briana Araiza MD POINT OF CARE TEST ORDERABLES Fi nal Result [facility] [address] [phone] * (ABNORMAL) CBC with automated diff (02/13/2025 5:08 AM EDT) Only the most recent of7 resultswithin the time period is included. WBC 8.1 4.0 - 10.0 K/ L 02/13/2025 5:59 AM EDT [facility] RBC 3.34(L) 3.93 - 5.22 M/ L 02/13/2025 5:59 AM EDT [facility] Hemoglobin 10.7(L) 11.2 - 15.7 GM/DL 02/13/2025 5:59 AM EDT [facility] Hematocrit 32.4(L) 34.1 - 44.9 % 02/13/2025 5:59 AM EDT [facility] MCV 97(H) 79 - 95 fL 02/13/2025 5:59 AM EDT [facility] MCH 32.0 25.6 - 32.2 pg 02/13/2025 5:59 AM EDT [facility] MCHC 33.0 32.2 - 35.5 GM/DL 02/13/2025 5:59 AM EDT [facility] RDW 12.9 11.7 - 14.4 % 02/13/2025 5:59 AM EDT [facility] Platelets 241 140 - 375 K/CU MM 02/13/2025 5:59 AM EDT [facility] MPV 9.7 9.4 - 12.3 fL 02/13/2025 5:59 AM EDT [facility] % Neutros 60 34 - 71 % 02/13/2025 5:59 AM EDT [facility] % Lymphs 29 19 - 52 % 02/13/2025 5:59 AM EDT [facility] % Monos 9 5 - 13 % 02/13/2025 5:59 AM EDT [facility] % Eos 2 1 - 6 % 02/13/2025 5:59 AM EDT [facility] % Baso 1 0 - 1 % 02/13/2025 5:59 AM EDT [facility] NRBC Absolute <0.01 0 - 0.012 K/ul 02/13/2025 5:59 AM EDT [facility] # Neutros 4.82 1.56 - 6.13 K/ L 02/13/2025 5:59 AM EDT [facility] # Lymphs 2.32 1.18 - 3.74 K/ L 02/13/2025 5:59 AM EDT [facility] # Monos 0.70 0.24 - 0.86 K/ L 02/13/2025 5:59 AM EDT [facility] # Eos 0.13 0.04 - 0.36 K/ L 02/13/2025 5:59 AM EDT [facility] # Baso 0.04 0.01 - 0.08 K/ L 02/13/2025 5:59 AM EDT [facility] Immature Granulocytes-Re lative 0.60(H) 0.01 - 0.43 % 02/13/2025 5:59 AM EDT [facility] # IG 0.05(H) 0.00 - 0.03 K/uL 02/13/2025 5:59 AM EDT [facility] Blood Venipuncture / Unknown 02/13/2025 5:08 AM EDT 02/13/2025 5:54 AM EDT Narrative [facility] - 02/13/2025 5:59 AM EDT When [...] noted Atypical Lymph flag noted us Briana Jose G MD LAB BLOOD ORDERABLES Final Resul t Performing Organization Address [facility] Co de Phone Number [facility] [address] [phone] * Hepatitis B surface antigen (02/13/2025 5:08 AM EDT) Pathologist [facility] Hepatitis B surface antigen Nonreactive Nonreactive 02/13/2025 7:19 AM EDT [facility] Blood Venipuncture / Unknown 02/13/2025 5:08 AM EDT 02/13/2025 5:46 AM EDT Nataliya Cain MD LAB BLOOD ORDERABLES Final Resul t Performing Organization Address [facility] de Phone Number [facility] [address] [phone] * Vancomycin level, random (02/13/2025 5:08 AM EDT) [facility] Vancomycin Rm 18.4 0.0 - 40.0 ug/mL 02/13/2025 6:19 AM EDT [facility] Comment: Therapeutic peak: >20 to 40 ug/mL Trough levels: 10 to 20 ug/mL Toxicity: > 80 ug/mL Blood Venipuncture / Unknown 02/13/2025 5:08 AM EDT 02/13/2025 5:46 AM EDT Olegario Varghese PA-C LAB BLOOD ORDERABLES Final R esult Performing Organization Address [facility] Co de Phone Number [facility] [address] [phone] * (ABNORMAL) Basic Metabolic Panel (02/13/2025 5:08 AM EDT) Only the most recent of3 resultswithin the time period is included. [facility] Sodium 135(L) 136 - 145 meq/L 02/13/2025 6:19 AM EDT [facility] Potassium 4.3 3.4 - 5.1 meq/L 02/13/2025 6:19 AM EDT [facility] CO2 25 22 - 29 meq/L 02/13/2025 6:19 AM EDT [facility] Chloride 97(L) 98 - 112 meq/L 02/13/2025 6:19 AM EDT [facility] Glucose 276(H) 74 - 100 mg/dL 02/13/2025 6:19 AM EDT [facility] BUN 35.2(H) 9.8 - 20.1 mg/dL 02/13/2025 6:19 AM EDT [facility] Creatinine 6.77(H) 0.57 - 1.11 mg/dL 02/13/2025 6:19 AM EDT [facility] BUN/Creatinine 5(L) 8 - 20 02/13/2025 6:19 AM EDT [facility] Calcium 7.3(L) 8.4 - 10.2 mg/dL 02/13/2025 6:19 AM EDT [facility] Anion Gap 17(H) 4 - 12 02/13/2025 6:19 AM EDT [facility] eGFR (mL/min/1.73m2) 7(L) >=60 mL/min/1.7 3m2 02/13/2025 6:19 AM EDT [facility] Osmolality Calc 288.0 mOsm/kg 6:19 AM EDT [facility] Blood Venipuncture / Unknown 02/13/2025 5:08 AM EDT 02/13/2025 5:46 AM EDT us Briana Araiza MD LAB BLOOD ORDERABLES Final Resul t [facility] 1 [place] [address], [facility] [phone] * (ABNORMAL) C-Reactive Protein (02/11/2025 5:31 AM EDT) Only the most recent of2 resultswithin the time period is included. CRP 11.0(H) 0.0 - 5.0 mg/L 02/11/2025 6:27 AM EDT [facility] Blood Venipuncture / Unknown 02/11/2025 5:31 AM EDT 02/11/2025 5:52 AM EDT us Briana Araiza MD LAB BLOOD ORDERABLES Final Resul t [facility] [address] [phone] * Ultrasound hemodialysis access (02/09/2025 9:30 AM EDT) Anatomical Region Laterality Modality Vascular, Abdomen Vascular Ultra sound 02/09/2025 8:47 AM EDT Narrative 02/09/2025 3:06 PM EDT Vascular Upper Extremities Arterial Duplex Procedure Demographics Patient Name KWADWO Norris Age 54 Patient Number [id number] Gender Female Race Unknown Ethnicity Corporate ID [id number] Height 66 Date of 1970 Weight 268 Accession Number [id number] BSA 2.27 m^2 Room Number 400 BMI 43.26 kg/m^2 Referring Physician ERNST AVILA Physician Terminologist OLIVIA Blount Procedure Type of Study: Extremities [...] Name KWADWO Norris Age 54 Patient Number [id number] Gender Female Race Unknown Ethnicity Corporate ID [id number] Height 66 Date of 1970 Weight 268 Accession Number [id number] BSA 2.27 m^2 Room Number 400 BMI 43.26kg/m^2 Referring Physician ERNST DÍAZ Interpreting ANNEMARIE AVILA Physician Terminologist OLIVIA Blount Procedure Type of Study: Extremities [...] 136 - 145 meq/L 02/09/2025 6:09 AM [facility] Potassium 4.0 3.4 - 5.1 meq/L 02/09/2025 6:09 AM [facility] Chloride 100 98 - 112 meq/L 02/09/2025 6:09 AM [facility] CO2 31(H) 22 - 29 meq/L 02/09/2025 6:09 AM [facility] Calcium 9.0 8.4 - 10.2 mg/dL 02/09/2025 6:09 AM [facility] Glucose 197(H) 74 - 100 mg/dL 02/09/2025 6:09 AM [facility] BUN 29.8(H) 9.8 - 20.1 mg/dL 02/09/2025 6:09 AM [facility] Creatinine 4.72(H) 0.57 - 1.11 mg/dL 02/09/2025 6:09 AM [facility] BUN/Creatinine 6(L) 8 - 20 02/09/2025 6:09 AM [facility] eGFR (mL/min/1.73m2) 10(L) >=60 mL/min/1. 73m2 02/09/2025 6:09 AM [facility] Albumin 3.0(L) 3.5 - 5.0 g/dL 02/09/2025 6:09 AM [facility] Alkaline Phosphatase 175(H) 40 - 150 U/L 02/09/2025 6:09 AM [facility] ALT 35(H) <=34 U/L 02/09/2025 6:09 AM [facility] Comment: ALT2 reagent used for testing does not contain P5P supplementation and therefore may miss ALT elevations in patients with B6 deficiency. This population may be as high as 10% in the [place], with risk factors including malabsorption, drug interactions, and alcoholic hepatitis. AST 28 11 - 34 U/L 02/09/2025 6:09 AM [facility] Comment: AST2 reagent used for testing does not contain P5P supplementation and therefore may miss AST elevations in patients with B6 deficiency. This population may be as high as 10% in the [place], with risk factors including malabsorption, drug interactions, and alcoholic hepatitis. Total Bilirubin 0.4 0.2 - 1.2 mg/dL 02/09/2025 6:09 AM [facility] Protein, Total 6.6 6.4 - 8.3 g/dL 02/09/2025 6:09 AM [facility] Globulin 3.6 2.5 - 4.1 g/dL 02/09/2025 6:09 AM [facility] Anion Gap 15(H) 4 - 12 02/09/2025 6:09 AM [facility] A/G Ratio 0.8 0.7 - 1.9 02/09/2025 6:09 AM [facility] Osmolality Calc 294.7 mOsm/kg 6:09 AM [facility] Blood Venipuncture / Unknown 02/09/2025 4:41 AM EDT 02/09/2025 5:46 AM EDT Olegario Varghese PA-C LAB BLOOD ORDERABLES Final R esult [facility] [address] [place] [id number], [facility] [phone] * (ABNORMAL) Wound Culture + Gram Stain (02/08/2025 11:19 PM EDT) Result Moderate Growth Methicillin resistant Staphylococcus aureus(A) 02/12/2025 8:05 AM EDT [facility] Comment:Resistant organism r equires isolation protocol. Result Moderate Growth Staphylococcus epidermidis(A) 02/12/2025 8:05 AM EDT [facility] Gram Stain Result No cells seen 02/12/2025 8:05 AM EDT [facility] Gram Stain Result Few gram positive cocci in pairs and clusters 02/12/2025 8:05 AM EDT [facility] Gram Stain Result Few gram positive cocci 02/12/2025 8:05 AM EDT [facility] Wound RIGHT UPPER ARM STRUCTURE / [...] MICROBIOLOGY - GENERAL ORDER EAN Final Result [facility] [address] [phone] * CT upper extremity without contrast right [...] Hold for add-ons. 02/08/2025 6:01 PM EDT [facility] Comment:Auto resulted. Blood Venipuncture / Unknown 02/08/2025 4:17 PM EDT 02/08/2025 4:20 PM EDT Loco Cortes MD LAB BLOOD ORDERABLES Final Res ult Performing Organization Address [facility] Co de Phone Number [facility] [address] [phone] * Blue Top Extra Tubes (02/08/2025 4:17 PM EDT) HOLD SPECIMEN (SJ - BKR) Hold for add-ons. 02/08/2025 6:01 PM EDT [facility] Comment:Auto resulted. Blood Venipuncture / Unknown 02/08/2025 4:17 PM EDT 02/08/2025 4:20 PM EDT Loco Cortes MD LAB BLOOD ORDERABLES Final Res ult Performing Organization Address [facility]/State/ZIP Co de Phone Number [facility] [address] [phone] * Blood Culture (02/08/2025 4:17 PM EDT) Only the most recent of4 resultswithin the time period is included. Result No growth in 5 days 02/13/2025 5:00 PM EDT [facility] Blood ENTIRE RIGHT UPPER ARM / Unknown Venipuncture / Unknown 02/08/2025 4:17 PM EDT 02/08/2025 4:20 PM EDT Narrative [facility] - 02/13/2025 5:00 PM EDT Blood volume is not within specification. May compromise patient blood culture results. [employer] MICROBIOLOGY - GENERAL ORDERABLE S Final Result Performing Organization Address City/[facility]/ZIP Co de Phone Number [facility] [address] [phone] * Lactic Acid with reflex (SJ) (02/08/2025 4:00 PM EDT) Only the most recent of2 resultswithin the time period is included. Lactic Acid Level (mmol/L) 1.7 0.5 - 2.2 mmol/L 02/08/2025 4:39 PM EDT [facility] Blood Venipuncture / Unknown 02/08/2025 4:00 PM EDT 02/08/2025 4:20 PM EDT [employer] LAB BLOOD ORDERABLES Final Resul t Performing Organization Address [facility] Co de Phone Number [facility] [address] [phone] * (ABNORMAL) Sedimentation rate (02/08/2025 4:00 PM EDT) Sed Rate 35(H) 0 - 30 mm/HR 02/08/2025 4:43 PM EDT [facility] Blood Venipuncture / Unknown 02/08/2025 4:00 PM EDT 02/08/2025 4:20 PM EDT [employer] LAB BLOOD ORDERABLES Final Resul t Performing Organization Address [facility] Co de Phone Number [facility] [address] [phone] * Magnesium (01/14/2025 6:14 AM EDT) Only the most recent of3 resultswithin the time period is included. Magnesium 1.8 1.6 - 2.6 mg/dL 01/14/2025 6:58 AM EDT [facility] Blood Venipuncture / Unknown 01/14/2025 6:14 AM EDT 01/14/2025 6:27 AM EDT us Gabino Esteban MD LAB BLOOD ORDERABLES Final Resul t Performing Organization Address [facility] Co de Phone Number [facility] [address] [place] [address] * Phosphorus (01/13/2025 9:53 AM EDT) Phosphorus 3.1 2.5 - 4.5 mg/dL 01/13/2025 10:39 AM EDT [facility] Blood Venipuncture / Unknown 01/13/2025 9:53 AM EDT 01/13/2025 10:11 AM EDT us Gabino Esteban MD LAB BLOOD ORDERABLES Final Resul t Performing Organization Address [facility] de Phone Number [facility] [address] [place] [address] * CT ABDOMEN/PELVIS WITHOUT IV CONTRAST Standard [...] ATRIAL RATE (MCT) 106 BPM GE MUSE [place] Interval 164 ms GE MUSE QRS-INTERVAL (MSEC) 84 ms GE MUSE QT Interval 332 ms GE MUSE QTC Interval 432 ms GE MUSE P [place] 54 degrees GE MUSE R AXIS (MCT) 20 degrees GE MUSE T Wave [place] 44 degrees GE MUSE [place] Diagnosis Age and gender specific ECG analysis [...] Benedict Fleming MD IMG DIAGNOSTIC IMAGING ORDE RABZOIE Final Result * COVID ANTIGEN (01/11/2025 11:48 AM EDT) SARS COVID ANTIGEN Negative Negative, Invalid 01/11/2025 12:40 PM EDT [facility] Nasal Swab (Nasal) 01/11/2025 11:48 AM EDT 01/11/2025 11:56 AM EDT [facility] - 01/11/2025 12:40 PM EDT [...] infection. Benedict Fleming MD MICROBIOLOGY - GENERAL [place]Jyoti [facility] Final Result [facility] [address] [phone] * High Sensitivity Troponin I (01/11/2025 11:48 AM EDT) Troponin I High Sensitivity (pg/mL) <5.0 <=14 pg/mL 01/11/2025 12:32 PM EDT [facility] Blood Venipuncture / Unknown 01/11/2025 11:48 AM EDT 01/11/2025 11:56 AM EDT [facility] - 01/11/2025 12:32 PM EDT Applicable to [facility] only. Effective October 25 the lab will begin using a new chemistry analyzer. HsTroponin methodology, reference ranges and critical values have changed. us Benedict Fleming MD LAB BLOOD ORDERABLES Final Result [facility] [address] [place] [id number], [facility] [phone] * EKG-SCANNED (01/11/2025) Narrative 01/11/2025 Ordered by [...] Chem8+ POC (01/10/2025 1:13 PM EDT) Pathologist [facility] POC Sodium 142 138 - 146 mmol/L 01/10/2025 1:23 PM EDT [facility] POC Potassium 4.8 3.5 - 4.9 mmol/L 01/10/2025 1:23 PM EDT [facility] POC Chloride 97(L) 98 - 109 mmol/L 01/10/2025 1:23 PM EDT [facility] POC Glucose 138(H) 70 - 105 mg/dL 01/10/2025 1:23 PM EDT [facility] POC BUN 47(H) 8 - 26 mg/dL 01/10/2025 1:23 PM EDT [facility] POC Anion Gap 14 10 - 20 mmol/L 01/10/2025 1:23 PM EDT [facility] POC IONIZED CALCIUM BENJI 1.18 1.12 - 1.32 mmol/L 01/10/2025 1:23 PM EDT [facility] POC CO2 TOTAL BENJI 36(H) 24 - 29 mmol/L 01/10/2025 1:23 PM EDT [facility] POC-Creatinine 6.3(H) 0.6 - 1.3 mg/dL 01/10/2025 1:23 PM EDT [facility] POC-EGFR 7 mL/min/1.7 3M2 01/10/2025 1:23 PM EDT [facility] Comment:Proceed with contras t if eGFR > 45 ml/min/1.73 when performed on the NovaSTAT strip Creatinine meter. POC HEMATOCRIT BENJI 32(L) 38 - 51 %PCV 01/10/2025 1:23 PM EDT [facility] POC HEMOGLOBIN BENJI 10.9(L) 12.0 - 17.0 g/dL 01/10/2025 1:23 PM EDT [facility] Blood 01/10/2025 1:13 PM EDT 01/10/2025 1:23 PM EDT Narrative [facility] - 01/10/2025 1:23 PM EDT Forklift Technician ID is - [id number] us Baljinder Sloan MD POINT OF CARE TEST ORDERABLES Fi nal Result [facility] [address] [phone] * (ABNORMAL) Lipid panel (07/19/2024 9:23 AM EST) Triglycerides 216 0 - 249 mg/dL 07/19/2024 11:00 AM [facility] Cholesterol 99 0 - 199 mg/dL 07/19/2024 11:00 AM [facility] Comment: 200 to 239 mg/dL = Moderate (borderline) >239 mg/dL = High HDL Cholesterol 32(L) >=40 mg/dL 07/19/2024 11:00 AM [facility] Comment: >=60 mg/dL = Desirable <40 mg/dL = Increased Risk All other components are listed individually or are calculations VLDL Cholesterol 43.2(H) 5 - 40 mg/dL 07/19/2024 11:00 AM [facility] Cholesterol/HDL ratio 3.1 0.0 - 3.2 07/19/2024 11:00 AM [facility] LDl/HDL Ratio 1 0 - 4 07/19/2024 11:00 AM [facility] RISK COMP 3 07/19/2024 11:00 AM [facility] LDL Cholesterol, Calculated 24 0 - 99 mg/dL 07/19/2024 11:00 AM [facility] Blood Venipuncture / Unknown 07/19/2024 9:23 AM EST 07/19/2024 10:14 AM EST us Marycruz Lam [employer] LAB BLOOD ORDERABLES Fi nal Result [facility] [address] [place] [address], [facility] [phone] from Last 3 Months or Most Recently Relevant to Health Maintenance Additional Health Concerns Infection Onset Date 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) Comment:02/11/2025 07/23/2024 07/23/2024 Insurance [id number] B Advance Directives For more information, please contact: [phone] Documents on File Type Date Recorded Patient Acid Operator Expl anation Advance Directives and Livin [...] ACLS medications, or cardioversion as indicated. Call [employer] * Full Code Date Activated Date Inactivated Comments 07/19/2024 5:49 AM 07/19/2024 9:51 AM Healthcare Agents on File Name Relationship Healthcare Agent Relationshi p Communication Annette Burkett Daughter Healthcare [employer] [facility] Care Teams Telephone Lineman Relationship Specialty Start Date End Date Wally Yoo MD [address] [place] [id number] PCP - General Family Medicine 01/11/25
--- OUTSIDE RECORDS SUMMARY | 2025-03-14 09:32 | XMS_ITS | Encounter Summary ---
Author Organization [email or web address] ([place], [place], [place], [place]) Address [address] [place] [address] Care Team Providers Care Electric Motor Tester Assembler Name Role Phone Edgar Nguyen MD Primary Care Provider [phone] Wally Yoo MD Primary Care Provider [phone] Reason for Referral * Interventional Radiology (Routine) - Closed Specialty Diagnoses / Procedures Referred By Contac t Referred To Contact Radiology Diagnoses Acute renal failure, unspecified acute renal failure type (HCC) Procedures IR CENTRAL VENOUS Dunia Pena NP Referral ID Status Reason Start Date Expiration Date Visits Re quested Visits Authorized [id number] Closed 10/08/2022 04/06/2023 1 1 Encounter Details Date Type Department Care Team (Late st Contact Info) Description 10/08/2022 Outside Orders [facility] Central Scheduling [address] [place] [address] Dunia Pena NP Acute renal [...] documented as of this encounter Care Teams Electric Motor Tester Assembler Relationship Specialty Start Date End Date Edgar Nguyen MD [address] [place] [id number] PCP - General Family Medicine 10/10/22 03/08/23 Wally Yoo MD [address] [place] [id number] PCP - General Family Medicine 01/11/25 documented as of this encounter
--- OUTSIDE RECORDS SUMMARY | 2025-03-14 09:33 | XMS_ITS | Clinical Summary ---
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 10/06/2022 Morbid (severe) [...] - 02/13/2025 8:47 PM EDT Hospital Encounter [facility] 4 Interventional Care Unit 1 [place] [address] Yuri Ocampo DO Elliott, Jayden, PA-C Lewis, Paige, MD Zohary, Yasser, MD Surgical site infection (Primary Dx) Discharge Disposition: Plant Associate Care 02/08/2025 Travel 01/11/2025 11:35 AM EDT - 01/14/2025 4:17 PM EDT Hospital Encounter [facility] 3B Unit 1 [place] [address] Benedict Fleming MD Elliott, Jayden, Mckenzie Moreira DO Elbita, Omar, MD Ali, Amjad, MD Generalized weakness (Primary Dx); Primary hypertension; Nausea and vomiting, unspecified vomiting type; Chronic renal failure, unspecified CKD stage Discharge Disposition: Home or Self Care 01/11/2025 Travel 01/10/2025 1:51 PM EDT Anesthesia Event [facility] Operating Room 1 [place] [address] Pro Barr MD Littles, Joel T, MD 01/10/2025 12:29 PM EDT - 01/10/2025 5:38 PM EDT Hospital Encounter [facility] Operating Room 1 [place] [address] Baljinder Sloan MD Discharge Disposition: Home or Self Care 01/10/2025 10:59 AM EDT - 01/10/2025 12:29 PM EDT Surgery [facility] Operating Room 1 [place] [address] Baljinder Sloan MD LEFT IJ [...] your living situation today? I have a [facility] place to live 02/09/2025 Think about [...] Do you speak a language other than [facility] at [facility]? No 02/09/2025 Do you want help [...] 10/18/2022, 2015 Medical Devices Implanted Type Area Pediatric Orthodontist Device Identifier Shelf Expiration Date Model / [...] / 414.852 / Scr Kirstin Hd St [id number] Ti 413.370 - [id number] Implanted:Qty : 1 on 08/10/2023 at [facility] IMPLANTS Left: Leg SYNTHES TRAUMA 413.370 / 413.370 / Scr Kirstin Head [id number] Ti 413.380 - [id number] Implanted:Qty : 1 on 08/10/2023 at [facility] IMPLANTS Left: Leg SYNTHES TRAUMA 413.380 / 413.380 / Scr Kirstin Head [id number] Ti 413.365 - [id number] Implanted:Qty : 1 on 08/10/2023 at [facility] IMPLANTS Left: Leg SYNTHES TRAUMA 413.365 / 413.365 / Scr Kirstin Head [id number] Ti 413.350 - [id number] Implanted:Qty : 2 [...] / 04.354.66 5 / Grft Vasc Collagen [id number] Ag616 - S0000 Implanted:Qty : 1 on 01/19/2024 by Baljinder Sloan MD at [facility] IMPLANTS Left: Arm Upper ARTEGRAFT [id number] 02/28/2024 AG616 / 0000 / [id number] Explanted Type Area Pediatric Orthodontist Device Identifier Shelf Expiration Date Model / [...] .655 / 354.655 / Scr Kirstin Head [id number] Ti 413.355 - [id number] Explanted:Qty: 1 on [...] GLUCOSE POC Routine 01/10/2025 4:39 PM EDT [place] ARTERIOVENOUS ANASTOMOSIS OPEN DIRECT 01/10/2025 1:50 PM [...] of32 resultswithin the time period is included. [facility] POC-GLUCOSE 208(H) 70 - 110 mg/dL 02/13/2025 6:[address] [facility] Comment: In the event of poor peripheral blood flow, venous or arterial blood should be used due to the potential of erroneous results. Notified Nurse RBV Pediatric Clinical Nurse Specialist [phone] 02/13/2025 6:[address] [facility] Blood WHOLE BLOOD / Unknown 02/13/2025 6:48 PM EDT 02/13/2025 6:[address] [facility] - 02/13/2025 6:49 PM EDT Pediatric Clinical Nurse Specialist ID is - [id number] us Briana Araiza MD POINT OF CARE TEST ORDERABLES Fi nal Result [facility] [address] [phone] * (ABNORMAL) CBC with automated diff (02/13/2025 5:08 AM EDT) Only the most recent of7 resultswithin the time period is included. [facility] WBC 8.1 4.0 - 10.0 K/ L 02/13/2025 5:[address] [facility] RBC 3.34(L) 3.93 - 5.22 M/ L 02/13/2025 5:[address] [facility] Hemoglobin 10.7(L) 11.2 - 15.7 GM/DL 02/13/2025 5:[address] [facility] Hematocrit 32.4(L) 34.1 - 44.9 % 02/13/2025 5:[address] [facility] MCV 97(H) 79 - 95 fL 02/13/2025 5:[address] [facility] MCH 32.0 25.6 - 32.2 pg 02/13/2025 5:[address] [facility] MCHC 33.0 32.2 - 35.5 GM/DL 02/13/2025 5:[address] [facility] RDW 12.9 11.7 - 14.4 % 02/13/2025 5:[address] [facility] Platelets 241 140 - 375 K/CU MM 02/13/2025 5:[address] [facility] MPV 9.7 9.4 - 12.3 fL 02/13/2025 5:[address] [facility] % Neutros 60 34 - 71 % 02/13/2025 5:[address] [facility] % Lymphs 29 19 - 52 % 02/13/2025 5:[address] [facility] % Monos 9 5 - 13 % 02/13/2025 5:[address] [facility] % Eos 2 1 - 6 % 02/13/2025 5:[address] [facility] % Baso 1 0 - 1 % 02/13/2025 5:[address] [facility] NRBC Absolute <0.01 0 - 0.012 K/ul 02/13/2025 5:[address] [facility] # Neutros 4.82 1.56 - 6.13 K/ L 02/13/2025 5:[address] [facility] # Lymphs 2.32 1.18 - 3.74 K/ L 02/13/2025 5:[address] [facility] # Monos 0.70 0.24 - 0.86 K/ L 02/13/2025 5:[address] [facility] # Eos 0.13 0.04 - 0.36 K/ L 02/13/2025 5:[address] [facility] # Baso 0.04 0.01 - 0.08 K/ L 02/13/2025 5:[address] [facility] Immature Granulocytes-Re lative 0.60(H) 0.01 - 0.43 % 02/13/2025 5:[address] [facility] # IG 0.05(H) 0.00 - 0.03 K/uL 02/13/2025 5:[address] [facility] Blood Venipuncture / Unknown 02/13/2025 5:08 AM EDT 02/13/2025 5:[address] [facility] - 02/13/2025 5:59 AM EDT [...] MD LAB BLOOD ORDERABLES Final Resul t [facility] [address] [phone] * Hepatitis B surface antigen (02/13/2025 5:08 AM EDT) Hepatitis B surface antigen Nonreactive Nonreactive 02/13/2025 7:[address] [facility] Blood Venipuncture / Unknown 02/13/2025 5:08 AM EDT 02/13/2025 5:46 AM EDT us Nataliya Cain MD LAB BLOOD ORDERABLES Final Resul t [facility] [address] [phone] * Vancomycin level, random (02/13/2025 5:08 AM EDT) Pathologist [facility] Vancomycin Rm 18.4 0.0 - 40.0 ug/mL 02/13/2025 6:[address] [facility] Comment: Therapeutic peak: >20 to 40 ug/mL Trough levels: 10 to 20 ug/mL Toxicity: > 80 ug/mL Blood Venipuncture / Unknown 02/13/2025 5:08 AM EDT 02/13/2025 5:46 AM EDT us Olegario Varghese PA-C LAB BLOOD ORDERABLES Final R esult [facility] [address] [phone] * (ABNORMAL) Basic Metabolic Panel (02/13/2025 5:08 AM EDT) Only the most recent of3 resultswithin the time period is included. Pathologist [facility] Sodium 135(L) 136 - 145 meq/L 02/13/2025 6:[address] [facility] Potassium 4.3 3.4 - 5.1 meq/L 02/13/2025 6:[address] [facility] CO2 25 22 - 29 meq/L 02/13/2025 6:[address] [facility] Chloride 97(L) 98 - 112 meq/L 02/13/2025 6:[address] [facility] Glucose 276(H) 74 - 100 mg/dL 02/13/2025 6:[address] [facility] BUN 35.2(H) 9.8 - 20.1 mg/dL 02/13/2025 6:[address] [facility] Creatinine 6.77(H) 0.57 - 1.11 mg/dL 02/13/2025 6:[address] [facility] BUN/Creatinine 5(L) 8 - 20 02/13/2025 6:[address] [facility] Calcium 7.3(L) 8.4 - 10.2 mg/dL 02/13/2025 6:[address] [facility] Anion Gap 17(H) 4 - 12 02/13/2025 6:[address] [facility] eGFR (mL/min/1.73m2) 7(L) >=60 mL/min/1.7 3m2 02/13/2025 6:[address] [facility] Osmolality Calc 288.0 mOsm/kg 6:[address] [facility] Blood Venipuncture / Unknown 02/13/2025 5:08 AM EDT 02/13/2025 5:46 AM EDT us Briana Araiza MD LAB BLOOD ORDERABLES Final Resul t [facility] [address] [phone] * (ABNORMAL) C-Reactive Protein (02/11/2025 5:31 AM EDT) Only the most recent of2 resultswithin the time period is included. CRP 11.0(H) 0.0 - 5.0 mg/L 02/11/2025 6:[address] [facility] Blood Venipuncture / Unknown 02/11/2025 5:31 AM EDT 02/11/2025 5:52 AM EDT us Briana Araiza MD LAB BLOOD ORDERABLES Final Resul t [facility] [address] [phone] * Ultrasound hemodialysis access (02/09/2025 9:30 AM EDT) Anatomical Region Laterality Modality Vascular, Abdomen Vascular Ultra sound 02/09/2025 8:47 AM EDT Narrative 02/09/2025 3:06 PM EDT Vascular Upper Extremities Arterial Duplex Procedure Demographics Patient Name KWADWO Norris Age 54 Patient Number [id number] Gender Female Race Unknown Ethnicity Corporate ID [id number] Height 66 Date of 1970 Weight 268 Accession Number [id number] BSA 2.27 m^2 Room Number 400 BMI 43.26 kg/m^2 Referring Physician ERNST AVILA Physician It Consultant OLIVIA Blount Procedure Type of Study: Extremities [...] Name KWADWO Norris Age 54 Patient Number [id number] Gender Female Race Unknown Ethnicity Corporate ID [id number] Height 66 Date of 1970 Weight 268 Accession Number [id number] BSA 2.27 m^2 Room Number 400 BMI 43.26kg/m^2 Referring Physician ERNST AVILA Physician It Consultant OLIVIA Blount Procedure Type of Study: Extremities [...] 136 - 145 meq/L 02/09/2025 6:09 AM [facility] Potassium 4.0 3.4 - 5.1 meq/L 02/09/2025 6:09 AM [facility] Chloride 100 98 - 112 meq/L 02/09/2025 6:09 AM [facility] CO2 31(H) 22 - 29 meq/L 02/09/2025 6:09 AM [facility] Calcium 9.0 8.4 - 10.2 mg/dL 02/09/2025 6:09 AM [facility] Glucose 197(H) 74 - 100 mg/dL 02/09/2025 6:09 AM [facility] BUN 29.8(H) 9.8 - 20.1 mg/dL 02/09/2025 6:09 AM [facility] Creatinine 4.72(H) 0.57 - 1.11 mg/dL 02/09/2025 6:09 AM [facility] BUN/Creatinine 6(L) 8 - 20 02/09/2025 6:09 AM [facility] eGFR (mL/min/1.73m2) 10(L) >=60 mL/min/1. 73m2 02/09/2025 6:09 AM [facility] Albumin 3.0(L) 3.5 - 5.0 g/dL 02/09/2025 6:09 AM [facility] Alkaline Phosphatase 175(H) 40 - 150 U/L 02/09/2025 6:09 AM [facility] ALT 35(H) <=34 U/L 02/09/2025 6:09 AM [facility] Comment: ALT2 reagent used for testing does not contain P5P supplementation and therefore may miss ALT elevations in patients with B6 deficiency. This population may be as high as 10% in the [place], with risk factors including malabsorption, drug interactions, and alcoholic hepatitis. AST 28 11 - 34 U/L 02/09/2025 6:09 AM [facility] Comment: AST2 reagent used for testing does not contain P5P supplementation and therefore may miss AST elevations in patients with B6 deficiency. This population may be as high as 10% in the [place], with risk factors including malabsorption, drug interactions, and alcoholic hepatitis. Total Bilirubin 0.4 0.2 - 1.2 mg/dL 02/09/2025 6:[address] [facility] Protein, Total 6.6 6.4 - 8.3 g/dL 02/09/2025 6:[address] [facility] Globulin 3.6 2.5 - 4.1 g/dL 02/09/2025 6:[address] [facility] Anion Gap 15(H) 4 - 12 02/09/2025 6:[address] [facility] A/G Ratio 0.8 0.7 - 1.9 02/09/2025 6:[address] [facility] Osmolality Calc 294.7 mOsm/kg 6:[address] [facility] Blood Venipuncture / Unknown 02/09/2025 4:41 AM EDT 02/09/2025 5:46 AM EDT Olegario Varghese PA-C LAB BLOOD ORDERABLES Final R esult [facility] [address] [phone] * (ABNORMAL) Wound Culture + Gram Stain (02/08/2025 11:19 PM EDT) Result Moderate Growth Methicillin resistant Staphylococcus aureus(A) 02/12/2025 8:[address] [facility] Comment:Resistant organism r equires isolation protocol. Result Moderate Growth Staphylococcus epidermidis(A) 02/12/2025 8:[address] [facility] Gram Stain Result No cells seen 02/12/2025 8:[address] [facility] Gram Stain Result Few gram positive cocci in pairs and clusters 02/12/2025 8:[address] [facility] Gram Stain Result Few gram positive cocci 02/12/2025 8:[address] [facility] Wound RIGHT UPPER ARM STRUCTURE [...] MICROBIOLOGY - GENERAL ORDER EAN Final Result [facility] [address] [place] [address], [facility] [phone] * CT upper extremity without contrast right [...] Hold for add-ons. 02/08/2025 6:[address] [facility] Comment:Auto resulted. Blood Venipuncture / Unknown 02/08/2025 4:17 PM EDT 02/08/2025 4:20 PM EDT us Loco Cortes MD LAB BLOOD ORDERABLES Final Res ult [facility] [address] [phone] * Blue Top Extra Tubes (02/08/2025 4:17 PM EDT) HOLD SPECIMEN (SJ - BKR) Hold for add-ons. 02/08/2025 6:[address] [facility] Comment:Auto resulted. Blood Venipuncture / Unknown 02/08/2025 4:17 PM EDT 02/08/2025 4:20 PM EDT us Loco Cortes MD LAB BLOOD ORDERABLES Final Res ult [facility] [address] [phone] * Blood Culture (02/08/2025 4:17 PM EDT) Only the most recent of4 resultswithin the time period is included. Result No growth in 5 days 02/13/2025 5:[address] [facility] Blood ENTIRE RIGHT UPPER ARM / Unknown Venipuncture / Unknown 02/08/2025 4:17 PM EDT 02/08/2025 4:[address] [facility] - 02/13/2025 5:00 PM EDT Blood volume is not within specification. May compromise patient blood culture results. us Yuri Ocampo DO MICROBIOLOGY - GENERAL ORDERABLE S Final Result Performing Organization Address City/[facility]/ZIP Co de Phone Number [facility] [address] [phone] * Lactic Acid with reflex (SJ) (02/08/2025 4:00 PM EDT) Only the most recent of2 resultswithin the time period is included. Lactic Acid Level (mmol/L) 1.7 0.5 - 2.2 mmol/L 02/08/2025 4:[address] [facility] Blood Venipuncture / Unknown 02/08/2025 4:00 PM EDT 02/08/2025 4:20 PM EDT us Yuri Ocampo DO LAB BLOOD ORDERABLES Final Resul t Performing Organization Address [facility] Co de Phone Number [facility] [address] [phone] * (ABNORMAL) Sedimentation rate (02/08/2025 4:00 PM EDT) Sed Rate 35(H) 0 - 30 mm/HR 02/08/2025 4:[address] [facility] Blood Venipuncture / Unknown 02/08/2025 4:00 PM EDT 02/08/2025 4:20 PM EDT Yuri Ocampo DO LAB BLOOD ORDERABLES Final Resul t Performing Organization Address [facility] Co de Phone Number [facility] [address] [phone] * Magnesium (01/14/2025 6:14 AM EDT) Only the most recent of3 resultswithin the time period is included. Magnesium 1.8 1.6 - 2.6 mg/dL 01/14/2025 6:[address] [facility] Blood Venipuncture / Unknown 01/14/2025 6:14 AM EDT 01/14/2025 6:27 AM EDT us Gabino Esteban MD LAB BLOOD ORDERABLES Final Resul t Performing Organization Address City/[facility] Co de Phone Number [facility] [address] [phone] * Phosphorus (01/13/2025 9:53 AM EDT) Phosphorus 3.1 2.5 - 4.5 mg/dL 01/13/2025 10:[address] [facility] Blood Venipuncture / Unknown 01/13/2025 9:53 AM EDT 01/13/2025 10:11 AM EDT us Gabino Esteban MD LAB BLOOD ORDERABLES Final Resul t [facility] 1 [place] [address], [facility] [phone] * CT ABDOMEN/PELVIS WITHOUT IV CONTRAST Standard [...] ATRIAL RATE (MCT) 106 BPM GE MUSE GA Interval 164 ms GE MUSE QRS-INTERVAL (MSEC) 84 ms GE MUSE QT Interval 332 ms GE MUSE QTC Interval 432 ms GE MUSE P [place] 54 degrees GE MUSE R AXIS (MCT) 20 degrees GE MUSE T Wave [place] 44 degrees GE MUSE [place] Diagnosis Age and gender specific ECG analysis [...] PA-C. Benedict Fleming MD [facility]NOSTIC [facility] [place] Final Result * COVID ANTIGEN (01/11/2025 11:48 AM EDT) SARS COVID ANTIGEN Negative Negative, Invalid 01/11/2025 12:[address] [facility] Nasal Swab (Nasal) 01/11/2025 11:48 AM EDT 01/11/2025 11:[address] [facility] - 01/11/2025 12:40 PM EDT [...] infection. Benedict Fleming MD MICROBIOLOGY - GENERAL [facility] Final Result Performing Organization Address [facility] Co de Phone Number [facility] [address] [phone] * High Sensitivity Troponin I (01/11/2025 11:48 AM EDT) Pathologist [facility] Troponin I High Sensitivity (pg/mL) <5.0 <=14 pg/mL 01/11/2025 12:[address] [facility] Blood Venipuncture / Unknown 01/11/2025 11:48 AM EDT 01/11/2025 11:[address] [facility] - 01/11/2025 12:32 PM EDT Applicable to [facility] only. Effective October 25 the lab will begin using a new chemistry analyzer. HsTroponin methodology, reference ranges and critical values have changed. Benedict Fleming MD LAB BLOOD ORDERABLES Final Result Performing Organization Address [facility] Co de Phone Number [facility] [address] [phone] * EKG-SCANNED (01/11/2025) Narrative 01/11/2025 Ordered by [...] supine Prep: ChloraPrep Patient monitoring: heart rate, library monitor and continuous pulse ox Block type: supraclavicular Laterality: right Injection technique: single-shot Guidance: ultrasound guided Needle Needle type: Veeqouplex insulated Echogenic Needle 4 in 20 G. [...] POCT , urine (01/10/2025 1:16 PM EDT) [facility] POC, URINE HCG Negative Negative INTERNAL QC (VALID/INVALID ) Valid Kit Lot Number [id number] Expiration Date 2026-05-31 01/10/2025 1:16 PM EDT Pro Barr MD FS_MODEL_IP_POINT OF CARE TEST ENTER/EDIT ORDERABLES Edited Result - Final * (ABNORMAL) Chem8+ POC (01/10/2025 1:13 PM EDT) Pathologist [facility] POC Sodium 142 138 - 146 mmol/L 01/10/2025 1:[address] [facility] POC Potassium 4.8 3.5 - 4.9 mmol/L 01/10/2025 1:[address] [facility] POC Chloride 97(L) 98 - 109 mmol/L 01/10/2025 1:[address] [facility] POC Glucose 138(H) 70 - 105 mg/dL 01/10/2025 1:[address] [facility] POC BUN 47(H) 8 - 26 mg/dL 01/10/2025 1:[address] [facility] POC Anion Gap 14 10 - 20 mmol/L 01/10/2025 1:[address] [facility] POC IONIZED CALCIUM BENJI 1.18 1.12 - 1.32 mmol/L 01/10/2025 1:[address] [facility] POC CO2 TOTAL BENJI 36(H) 24 - 29 mmol/L 01/10/2025 1:[address] [facility] POC-Creatinine 6.3(H) 0.6 - 1.3 mg/dL 01/10/2025 1:[address] [facility] POC-EGFR 7 mL/min/1.7 3M2 01/10/2025 1:[address] [facility] Comment:Proceed with contras t if eGFR > 45 ml/min/1.73 when performed on the NovaSTAT strip Creatinine meter. POC HEMATOCRIT BENJI 32(L) 38 - 51 %PCV 01/10/2025 1:[address] [facility] POC HEMOGLOBIN BENJI 10.9(L) 12.0 - 17.0 g/dL 01/10/2025 1:[address] [facility] Blood 01/10/2025 1:13 PM EDT 01/10/2025 1:[address] [facility] - 01/10/2025 1:23 PM EDT Pediatric Clinical Nurse Specialist ID is - [id number] us Baljinder Sloan MD POINT OF CARE TEST ORDERABLES Fi nal Result [facility] [address] [phone] * (ABNORMAL) Lipid panel (07/19/2024 9:23 AM EST) Triglycerides 216 0 - 249 mg/dL 07/19/2024 11:00 AM [facility] Cholesterol 99 0 - 199 mg/dL 07/19/2024 11:00 AM [facility] Comment: 200 to 239 mg/dL = Moderate (borderline) >239 mg/dL = High HDL Cholesterol 32(L) >=40 mg/dL 07/19/2024 11:00 AM [facility] Comment: >=60 mg/dL = Desirable <40 mg/dL = Increased Risk All other components are listed individually or are calculations VLDL Cholesterol 43.2(H) 5 - 40 mg/dL 07/19/2024 11:00 AM [facility] Cholesterol/HDL ratio 3.1 0.0 - 3.2 07/19/2024 11:00 AM [facility] LDl/HDL Ratio 1 0 - 4 07/19/2024 11:00 AM [facility] RISK COMP 3 07/19/2024 11:00 AM [facility] LDL Cholesterol, Calculated 24 0 - 99 mg/dL 07/19/2024 11:00 AM [facility] Blood Venipuncture / Unknown 07/19/2024 9:23 AM EST 07/19/2024 10:14 AM EST us Marycruz Lam ACADEMIC ADVISER LAB BLOOD ORDERABLES Fi nal Result Performing Organization Address City/State/[facility] Co de Phone Number 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 Call RECREATION FACILITY ATTENDANT * Full Code Date Activated Date Inactivated Comments 07/19/2024 5:49 AM 07/19/2024 9:51 AM Healthcare Agents on File Name Relationship Healthcare Agent [facility] Communication Annette Burkett Daughter Healthcare Decision-Maker Elizabeth Anderson [employer] Alternate Healthcare Decision-Maker Care Teams Watermaster Relationship Specialty Start Date End Date Wally Yoo MD [address] [place] [address] PCP - General Family Medicine 01/11/25
--- NOTE | 2025-03-14 10:15 | CT_ITS ---
FINAL REPORT TECHNIQUE: Thin section axial images were obtained through the lumbar spine without contrast. Sagittal and coronal reconstruction images were obtained from the axial data. Exam was performed using dose reduction techniques. This study was performed with techniques to keep radiation doses as low as reasonably achievable (ALARA). Individualized dose reduction techniques using automated exposure control or adjustment of mA and/or kV according to the patient's size were employed. CLINICAL HISTORY: low back pain, abnormal lumbar xray COMPARISON: None FINDINGS: There is no acute fracture or acute malalignment of the lumbar spine. Vertebral body height is preserved. There is mild multilevel degenerative disease with disc space narrowing and osteophyte formation. At the L4-5 level, an annular bulge is present. There is moderate to severe central canal stenosis. At the L4-5 level, an annular bulge is present with moderate central canal stenosis and mild to moderate bilateral neural foraminal narrowing. Paraspinal soft tissues are within normal limits. There is no paraspinal mass or fluid collection. IMPRESSION: Acute fracture is identified. Degenerative disc disease, with canal stenosis at the L4-5 and L5-S1 levels as described. Reviewed, Interpreted and Dictated by Abbi Burnett MD Transcribed by Joyce Overton Authenticated and [facility]
== END 2025-03-14 23:59 | disposition home or self-care (01) ==
LOC: RAD 09:21
PROVIDERS: PCP Family Medicine; Visit Provider Nurse Practitioner Family
DX: S32.000A Wedge compression fracture of unspecified lumbar vertebra, initial encounter for closed fracture (principal); M51.369 Other intervertebral disc degeneration, lumbar region without mention of lumbar back pain or lower extremity pain; M48.061 Spinal stenosis, lumbar region without neurogenic claudication; M48.062 Spinal stenosis, lumbar region with neurogenic claudication; M85.88 Other specified disorders of bone density and structure, other site; M81.0 Age-related osteoporosis without current pathological fracture; N19 Unspecified kidney failure; Z99.2 Dependence on renal dialysis; Z78.0 Asymptomatic menopausal state
CPT/HCPCS: 72131; 77080

== ENCOUNTER 2025-03-16 14:27 | Outpatient (POV) | payer MEDICARE, MEDICAID, SELFPAY ==
--- OUTSIDE RECORDS SUMMARY | 2025-02-08 15:54 | XMS_ITS | Encounter Summary ---
Author Organization [employer] ([place], [place], [place], [place]) Address [address] [place] [address] Care Team Providers Care Paleobotanist Name Role Phone Wally Yoo MD Primary Care Provider [phone] Reason for Visit * Reason Comments Vascular Access Problem * Auth/Cert (Routine) Specialty Diagnoses / Procedures Referred By Meg kumar Referred To Contact Diagnoses Surgical site infection [place] [address] [facility] [address] [place] [phone] Phone: tel: fax: [place] [address] Inter[facility] [address] [place] [address] Phone: tel: fax: Referral ID Status Reason Start Date Expiration Date Visits Re quested Visits Authorized [id number] 1 1 Encounter Details Date Type Department Care Team (Late st Contact Info) Description 02/08/2025 3:54 PM EDT - 02/13/2025 8:47 PM EDT Hospital Encounter [place] [address] [facility] [address] [place] [phone] Yuri Ocampo DO [address] [place] [address] Olegario Varghese PA-C [address] [facility] [address] [place] [address] Briana Araiza MD 14[address] [facility] [address] [id number] Joo Melendrez MD 1401 [facility] [address] [id number] Surgical site infection (Primary Dx) Discharge Disposition: Search And Rescue Officer Care Social History Tobacco Use Types Packs/Day [...] Do you speak a language other than Bulgarian at [facility]? No 02/09/2025 Do you want help with [...] AM EDT DISCHARGE SUMMARY Internal Medicine, [facility] Physicians Patient Name: Carla Burkett : 1970 [...] presents to [facility] in [place], [place] for further evaluation and management of [...] Your Medications These medications were sent to [facility], [place] [facility] [address] [facility] [address] gabapentin 300 MG capsule Physical Exam Constitutional: [...] sent through Care Everywhere. * Wound Infection Uysc-tz-Uure (Bulgarian) documented in this encounter Medications at Time [...] Progress Note HPI: 54 y.o.female presents to [facility] from dialysis clinic due to bleeding and [...] Thank you, Jami Munoz PharmD, BCPS, BCCCP #[id number] * Delores Hartley RN - 02/13/2025 12:46 PM EDT 02/13/25 1245 Final Discharge Plan Patient appealing discharge? No Does the patient have the ability to fill and receive their discharge medications? Yes Patient returning to prior living situation? Yes Discharge Disposition Search And Rescue Officer Care Agency Type SNF SNF Name and Number [facility] This CM met with the pt to discuss the DC plan. Pt at HD today. We discussed the discharge plan which is for pt to return to [facility]. This CM informed the pt that an attempted was made to set up the transport, however due to pt not being fully discharge [employer] did not allow this CM to setup hospital discharge transport in advance. This CM called Esha in admission and explained to herthe barrier. No cut off time for the pt to arrive at the facility. Patient stated that if transportcould not be set up for evening, she is comfortable with being transported by [facility]. Her last discharge from [facility] was by lyft. This CM spoke with Director Veronica. Then called Compressor Station Engineer Edilia. Explained to her the situation and she agreed to assist. Transportation company: [employer] [phone]. Discharge Address: [place] [address]. Facility # [phone] Pt has WC at bedside and both Prothesis. The Pt is in agreement with the discharge plan. CM also updated the Nurse and provided the N2N report# [phone]. The Nurse is to call the housesupervisor once the pt has returned from . * Nataliya Cain MD - 02/13/2025 12:44 PM EDT Images from the original note were not included. Subjective: Patient was seen and examined with all infection control measures. NAD, afebrile. Plan for [facility] today. Hospital Course: Carla Burkett is a [...] Patient was referred tothe local ER at [facility] for further evaluation by vascular surgery [...] Units, 5,000 Units, subcutaneous, Q8H, Arabella Luu, GATE SHEAR OPERATOR, 5,000 Units at 02/13/25 1220 hydrALAZINE (APRESOLINE) [...] 30 mg, 30 mg, oral, Daily, Olegario aVrghese PA-C, 30 mg at 02/13/25 0908 lidocaine [...] POC-GLUCOSE 149 (H) 70 - 110 mg/dL Physical Design Engineer [id number] Glucose, Nova Meter Collection Time: 02/10/25 7:54 PM Result Value Ref Range POC-GLUCOSE 176 (H) 70 - 110 mg/dL Physical Design Engineer [id number] Basic Metabolic Panel Collection Time: 02/11/25 5:31 [...] POC-GLUCOSE 234 (H) 70 - 110 mg/dL Physical Design Engineer [id number] Glucose, Nova Meter Collection Time: 02/11/25 11:42 AM Result Value Ref Range POC-GLUCOSE 240 (H) 70 - 110 mg/dL Physical Design Engineer [id number] Glucose, Nova Meter Collection Time: 02/11/25 4:09 PM Result Value Ref Range POC-GLUCOSE 208 (H) 70 - 110 mg/dL Physical Design Engineer [id number] Glucose, Nova Meter Collection Time: 02/12/25 7:29 AM Result Value Ref Range POC-GLUCOSE 203 (H) 70 - 110 mg/dL Physical Design Engineer [id number] Glucose, Nova Meter Collection Time: 02/12/25 11:19 AM Result Value Ref Range POC-GLUCOSE 230 (H) 70 - 110 mg/dL Physical Design Engineer [id number] Glucose, Nova Meter Collection Time: 02/12/25 3:31 PM Result Value Ref Range POC-GLUCOSE 279 (H) 70 - 110 mg/dL Physical Design Engineer [id number] Glucose, Nova Meter Collection Time: 02/12/25 8:23 PM Result Value Ref Range POC-GLUCOSE 316 (H) 70 - 110 mg/dL Physical Design Engineer [id number] Vancomycin level, random Collection Time: 02/13/25 5:08 [...] POC-GLUCOSE 278 (H) 70 - 110 mg/dL Physical Design Engineer [id number] Glucose, Nova Meter Collection Time: 02/13/25 11:22 AM Result Value Ref Range POC-GLUCOSE 344 (H) 70 - 110 mg/dL Physical Design Engineer [id number] Imaging: Ultrasound hemodialysis access Result Date: 02/09/2025 Vascular Upper Extremities Arterial Duplex Procedure Demographics Patient Name YANG Norris Age 54 Patient Number [id number] Gender Female Race Unknown Ethnicity Corporate ID [id number] Height 66 Date of 1970 Weight 268 Accession Number [id number] BSA 2.27 m^2 Room Number 400 BMI 43.26 kg/m^2 Referring Physician ERNST AVILA Physician Commercial Estimator OLIVIA Blount Procedure Type of Study: Extremities [...] ! ! ! + + + + ! Renal failure ! ! ! + + + [...] from the original note were not included. [facility] Patient Name: Carla Burkett : 1970 Evaluating Physician: Edgar Hopper MD Chief Complaint: right arm infection Reason for Consultation: right arm surgical site infection History of present illness: Patient is a 54 y.o. female with history of diabetes, end-stage renal disease with hemodialysis q. Qlhepv-Cjiofjaml-Txzpdv, right arm brachiocephalic AV fistula creation January [...] with palpation, better with pain meds and 10 No headache photophobia or neck stiffness. No [...] Diagnosis Date C. difficile colitis Cardiac arrest ([facility]) 07/19/2024 CHF (congestive heart failure) ([facility]) 01/19/2024 Chronic kidney disease Coronary [...] fistula creation; Surgeon: Baljinder Sloan MD; Location: [facility]; Service: Vascular Surgery; Laterality: Right; CREATION,PERICARDIAL WINDOW N/A 12/19/2022 Procedure: CREATION, PERICARDIAL WINDOW; Surgeon: Bogdan Hernandez IV, MD; Location: [facility]; Service: CV Surgery; Laterality: N/A; AO#3, AVAIL TF, 3HR(A) GALLBLADDER SURGERY heart stents INSERTION,DIALYSIS CATHETER KNEE ARTHROSCOPY Right ORIF,FEMUR Left 08/10/2023 Procedure: ORIF LT FEMUR); Surgeon: Otf Birmingham MD; Location: [facility] OR; Service: OrthopaedicSurgery; Laterality: Left; AO# 4, AVAIL TF melvi left hip TONSILLECTOMY TRANSPOSITION,VEIN Left 04/20/2023 Procedure: (LT UPPER EXTREMITY AV FISTULA); Surgeon: Baljinder Sloan MD; Location: [facility] OR; Service: Vascular; Laterality: Left; IN 0600, [...] 5,000 Units 5,000 Units subcutaneous Q8H Arabella Luu GATE SHEAR OPERATOR 5,000 Units at 02/13/25 0633 hydrALAZINE (APRESOLINE) [...] (Immediate Use Only) 12.5mg intravenous Q6H PRN Pbalo Yuan PA-C IVPB Stopped at 02/11/25 0113 [...] 02/12/25 0852 Physical Exam: Vital Signs Vitals: 02/12/25200802/12/25201402/12/25202502/12/255 BP: 111/66 127/76 Pulse: 73 74 72 [...] Procedure Component Value Units Date/Time Blood Culture [[id number]] Collected: 02/08/25 1600 Order Status: Completed Specimen: Blood Updated: 02/12/25 1700 Result No growth in 4 days Narrative: Blood volume is not within specification. May compromise patient blood culture results. Blood Culture [[id number]] Collected: 02/08/25 1617 Order Status: Completed Specimen: Blood Updated: 02/12/25 1700 Result No growth in 4 days Narrative: Blood volume is not within specification. May compromise patient blood culture results. Wound Culture + Gram Stain [[id number]] (Abnormal) (Susceptibility) Collected: 02/08/25 2319 Order Status: Completed Specimen: Wound from Arm, Right Upper Updated: 02/12/25 08 Result Moderate Growth Methicillin resistant Staphylococcus [...] of 02/12. 1-2 days Expected discharge disposition: [facility], [place] Additional discharge needs: PCP follow-up, nephrology follow-up, transportation IV antibiotics withHD Signed: Briana Araiza MD 02/12/2025, 12:15 PM * Philomena Palomino RN - 02/12/2025 1:17 PM EDTSummary: Discharge Planning Weekend CM. Final ID plan for antibiotic with HD entered today. [place] [facility] clinic is not open today for [...] Patient was referred tothe local ER at [facility] for further evaluation by vascular surgery [...] Units, 5,000 Units, subcutaneous, Q8H, Arabella Luu, GATE SHEAR OPERATOR, 5,000 Units at 02/12/252047 hydrALAZINE (APRESOLINE) injection [...] POC-GLUCOSE 235 (H) 70 - 110 mg/dL Physical Design Engineer [id number] Glucose, Nova Meter Collection Time: 02/10/25 12:23 PM Result Value Ref Range POC-GLUCOSE 274 (H) 70 - 110 mg/dL Physical Design Engineer [id number] Glucose, Nova Meter Collection Time: 02/10/25 6:20 PM Result Value Ref Range POC-GLUCOSE 149 (H) 70 - 110 mg/dL Physical Design Engineer [id number] Glucose, Nova Meter Collection Time: 02/10/25 7:54 PM Result Value Ref Range POC-GLUCOSE 176 (H) 70 - 110 mg/dL Physical Design Engineer [id number] Basic Metabolic Panel Collection Time: 02/11/25 5:31 [...] POC-GLUCOSE 234 (H) 70 - 110 mg/dL Physical Design Engineer [id number] Glucose, Nova Meter Collection Time: 02/11/25 11:42 AM Result Value Ref Range POC-GLUCOSE 240 (H) 70 - 110 mg/dL Physical Design Engineer [id number] Glucose, Nova Meter Collection Time: 02/11/25 4:09 PM Result Value Ref Range POC-GLUCOSE 208 (H) 70 - 110 mg/dL Physical Design Engineer [id number] Glucose, Nova Meter Collection Time: 02/12/25 7:29 AM Result Value Ref Range POC-GLUCOSE 203 (H) 70 - 110 mg/dL Physical Design Engineer [id number] Glucose, Nova Meter Collection Time: 02/12/25 11:19 AM Result Value Ref Range POC-GLUCOSE 230 (H) 70 - 110 mg/dL Physical Design Engineer [id number] Glucose, Nova Meter Collection Time: 02/12/25 3:31 PM Result Value Ref Range POC-GLUCOSE 279 (H) 70 - 110 mg/dL Physical Design Engineer [id number] Glucose, Nova Meter Collection Time: 02/12/25 8:23 PM Result Value Ref Range POC-GLUCOSE 316 (H) 70 - 110 mg/dL Physical Design Engineer [id number] Imaging: Ultrasound hemodialysis access Result Date: 02/09/2025 Vascular Upper Extremities Arterial Duplex Procedure Demographics Patient Name YANG Norris Age 54 Patient Number [id number] Gender Female Race Unknown Ethnicity Corporate ID [id number] Height 66 Date of 1970 Weight 268 Accession Number [id number] BSA 2.27 m^2 Room Number 400 BMI 43.26 kg/m^2 Referring Physician ERNST AVILA Physician Commercial Estimator OLIVIA Blount Procedure Type of Study: Extremities [...] from the original note were not included. [facility] Patient Name: Carla Burkett : 1970 Evaluating Physician: Edgar Hopper MD Chief Complaint: right arm infection Reason for Consultation: right arm surgical site infection History of present illness: Patient is a 54 y.o. female with history of diabetes, end-stage renal disease with hemodialysis q. Pisaxw-Xnrtktdfo-Rkimnl, right arm brachiocephalic AV fistula creation January [...] Diagnosis Date C. difficile colitis Cardiac arrest ([facility]) 07/19/2024 CHF (congestive heart failure) ([facility]) 01/19/2024 Chronic kidney disease Coronary [...] fistula creation; Surgeon: Baljinder Sloan MD; Location: [facility] OR; Service: Vascular Surgery; Laterality: Right; CREATION,PERICARDIAL WINDOW N/A 12/19/2022 Procedure: CREATION, PERICARDIAL WINDOW; Surgeon: Bogdan Hernandez IV, MD; Location: [facility] OR; Service: CV Surgery; Laterality: N/A; AO#3, AVAIL TF, 3HR(A) GALLBLADDER SURGERY heart stents INSERTION,DIALYSIS CATHETER KNEE ARTHROSCOPY Right ORIF,FEMUR Left 08/10/2023 Procedure: ORIF LT FEMUR); Surgeon: Otf Birmingham MD; Location: [facility] OR; Service: OrthopaedicSurgery; Laterality: Left; AO# 4, AVAIL TF melvi left hip TONSILLECTOMY TRANSPOSITION,VEIN Left 04/20/2023 Procedure: (LT UPPER EXTREMITY AV FISTULA); Surgeon: Baljinder Sloan MD; Location: [facility] OR; Service: Vascular; Laterality: Left; IN 0600, [...] Units 5,000 Units subcutaneous Q8H Arabella Luu, GATE SHEAR OPERATOR 5,000 Units at 02/12/25 0531 hydrALAZINE (APRESOLINE) [...] capsule 37.5 mg 37.5 mg oral Daily Olgeario Varghese PA-C 37.5 mg at 02/12/25 0852 [...] Units Date/Time Wound Culture + Gram Stain [[id number]] (Abnormal) (Susceptibility) Collected: 02/08/25 2319 Order Status: Completed Specimen: Wound from Arm, Right Upper Updated: 02/12/25 0805 Result Moderate Growth Methicillin resistant Staphylococcus aureus Comment: Resistant organism requires isolation protocol. Moderate Growth Staphylococcus epidermidis Gram Stain Result No cells seen Few gram positive cocci in pairs and clusters Few gram positive cocci Blood Culture [[id number]] Collected: 02/08/25 1600 Order Status: Completed Specimen: Blood Updated: 02/11/25 1700 Result No growth in 3 days Narrative: Blood volume is not within specification. May compromise patient blood culture results. Blood Culture [[id number]] Collected: 02/08/25 1617 Order Status: Completed Specimen: Blood Updated: 02/11/25 1700 Result No growth in 3 days Narrative: Blood volume is not within specification. May compromise patient blood culture results. Radiology: Radiology Results (last 3 days) Procedure Component Value Units Date/Time Ultrasound hemodialysis access [[id number]] Collected: 02/09/25 0847 Order Status: Completed Updated: 02/09/25 1506 Narrative: Vascular Upper Extremities Arterial Duplex Procedure Demographics Patient Name YANG Norris Age 54 Patient Number [id number] Gender Female Race Unknown Ethnicity Corporate ID [id number] Height 66 Date of 1970 Weight 268 Accession Number [id number] BSA 2.27 m^2 Room Number 400 BMI 43.26 kg/m^2 Referring Physician ERNST DÍAZ Interpreting ANNEMARIE AVILA Physician Commercial Estimator OLIVIA Blount Procedure Type of Study: Extremities [...] discharge in: 1-2 days Expected discharge disposition: [facility], [place] Additional discharge needs: PCP follow-up, nephrology follow-up, [...] Patient was referred tothe local ER at [facility] for further evaluation by vascular surgery [...] Briana Araiza MD, IVPB Stopped at 02/10/25 185 dextrose 50% (D50W) injection 25 g, 25 [...] 5,000 Units, 5,000 Units, subcutaneous, Q8H, Arabella Ramosborne, GATE SHEAR OPERATOR, 5,000 Units at 02/11/25 1214 hydrALAZINE (APRESOLINE) [...] POC-GLUCOSE 131 (H) 70 - 110 mg/dL Physical Design Engineer [id number] Wound Culture + Gram Stain Collection Time: [...] POC-GLUCOSE 181 (H) 70 - 110 mg/dL Physical Design Engineer [id number] Glucose, Nova Meter Collection Time: 02/09/25 11:16 AM Result Value Ref Range POC-GLUCOSE 154 (H) 70 - 110 mg/dL Physical Design Engineer [id number] Glucose, Nova Meter Collection Time: 02/09/25 4:16 PM Result Value Ref Range POC-GLUCOSE 232 (H) 70 - 110 mg/dL Physical Design Engineer [id number] Glucose, Nova Meter Collection Time: 02/09/25 8:08 PM Result Value Ref Range POC-GLUCOSE 172 (H) 70 - 110 mg/dL Physical Design Engineer [id number] Glucose, Nova Meter Collection Time: 02/10/25 7:52 AM Result Value Ref Range POC-GLUCOSE 235 (H) 70 - 110 mg/dL Physical Design Engineer [id number] Glucose, Nova Meter Collection Time: 02/10/25 12:23 PM Result Value Ref Range POC-GLUCOSE 274 (H) 70 - 110 mg/dL Physical Design Engineer [id number] Glucose, Nova Meter Collection Time: 02/10/25 6:20 PM Result Value Ref Range POC-GLUCOSE 149 (H) 70 - 110 mg/dL Physical Design Engineer [id number] Glucose, Nova Meter Collection Time: 02/10/25 7:54 PM Result Value Ref Range POC-GLUCOSE 176 (H) 70 - 110 mg/dL Physical Design Engineer [id number] Basic Metabolic Panel Collection Time: 02/11/25 5:31 [...] POC-GLUCOSE 234 (H) 70 - 110 mg/dL Physical Design Engineer [id number] Glucose, Nova Meter Collection Time: 02/11/25 11:42 AM Result Value Ref Range POC-GLUCOSE 240 (H) 70 - 110 mg/dL Physical Design Engineer [id number] Imaging: Ultrasound hemodialysis access Result Date: 02/09/2025 Vascular Upper Extremities Arterial Duplex Procedure Demographics Patient Name YANG Norris Age 54 Patient Number [id number] Gender Female Race Unknown Ethnicity Corporate ID [id number] Height 66 Date of 1970 Weight 268 Accession Number [id number] BSA 2.27 m^2 Room Number 400 BMI 43.26 kg/m^2 Referring Physician ERNST AVILA Physician Commercial Estimator OLIVIA Blount Procedure Type of Study: Extremities Arteries: Upper Extremities Arterial Duplex, Hemodialysis Graft Access Duplex, US HEMODIALYSIS ACCESS. Impressions Summary ################################## Indication: N18.6 End stage renal disease. RIGHT: Patent Brachiocephalic AVF. VOLUME FLOW: Mid: 1044 ml/min. ################################## Allergies - Sulfa. Patient Status:Inpatient . Study Location:Portable. Technical Quality:Adequate visualization. Risk Factors History of Disease + + +--------- + !Diagnosis !Date !Comments ! + + [...] Progress Note HPI: 54 y.o.female presents to [facility] from dialysis clinic due to bleeding and [...] Units Date/Time Wound Culture + Gram Stain [[id number]] (Abnormal) (Susceptibility) Collected: 02/08/25 2319 Order Status: Completed Specimen: Wound from Arm, Right Upper Updated: 02/11/25 0825 Result Moderate Growth Methicillin resistant Staphylococcus aureus Comment: Resistant organism requires isolation protocol. Moderate Growth Coagulase negative Staphylococcus Gram Stain Result No cells seen Few gram positive cocci in pairs and clusters Few gram positive cocci Blood Culture [[id number]] Collected: 02/08/25 1600 Order Status: Completed Specimen: Blood Updated: 02/10/25 170 Result No growth in 48 hours Narrative: Blood volume is not within specification. May compromise patient blood culture results. Blood Culture [[id number]] Collected: 02/08/25 1617 Order Status: Completed Specimen: [...] follow Thank you, Flaco Walker PharmD Ext. [phone] * Edgar Hopper MD - 02/11/2025 8:50 AM EDT Images from the original note were not included. [facility] Patient Name: Carla Burkett : 1970 Evaluating Physician: Edgar Hopper MD Chief Complaint: right arm infection Reason for Consultation: right arm surgical site infection History of present illness: Patient is a 54 y.o. female with history of diabetes, end-stage renal disease with hemodialysis q. Piqyka-Atxngiinq-Kfvxhq, right arm brachiocephalic AV fistula creation January [...] Diagnosis Date C. difficile colitis Cardiac arrest ([facility]) 07/19/2024 CHF (congestive heart failure) ([facility]) 01/19/2024 Chronic kidney disease Coronary artery disease-heart stents x 2019 CTS (carpal tunnel syndrome)left Depression Diabetes mellitus ([facility]) ESRD (end stage renal disease) on dialysis ([facility]) Hyperlipidemia, unspecified 10/06/2022 Hypertension Kidney failure Obstructive sleep apnea Osteomyelitis ([facility]) resolved Peripheral vascular disease due to secondary diabetes ([facility]) Post-menopausal Wound of right foot wrapped Past Surgical History: Procedure Laterality Date AMPUTATION,TOE Right BELOW KNEE LEG AMPUTATION Left toes first then debridement CARPAL TUNNEL RELEASE Right CREATION,A-V FISTULA Right 01/10/2025 Procedure: LEFT IJ tunneled catheter exchanged RIGHT brachiocephalic arteriovenous fistula creation; Surgeon: Baljinder Sloan MD; Location: [facility]; Service: Vascular Surgery; Laterality: Right; CREATION,PERICARDIAL WINDOW N/A 12/19/2022 Procedure: CREATION, PERICARDIAL WINDOW; Surgeon: Bogdan Hernandez IV, MD; Location: [facility] OR; Service: CV Surgery; Laterality: N/A; AO#3, AVAIL TF, 3HR(A) GALLBLADDER SURGERY heart stents INSERTION,DIALYSIS CATHETER KNEE ARTHROSCOPY Right ORIF,FEMUR Left 08/10/2023 Procedure: ORIF LT FEMUR); Surgeon: Otf Birmingham MD; Location: [facility]; Service: Orthopaedic Surgery; Laterality: Left; AO# 4, AVAIL TF melvi left hip TONSILLECTOMY TRANSPOSITION,VEIN Left 04/20/2023 Procedure: (LT UPPER EXTREMITY AV FISTULA); Surgeon: Baljinder Sloan MD; Location: [facility]; Service: Vascular; Laterality: Left; IN 0600, [...] mg oral Daily 81 mg at 02/10/25 09 atorvastatin 40 mg oral Every Night 40 mg at 02/10/25 215 carvediloL 12.5 mg oral BID 12.5 mg [...] Units 5,000 Units subcutaneous Q8H Arabella Luu, GATE SHEAR OPERATOR 5,000 Units at 02/11/25 0544 hydrALAZINE (APRESOLINE) [...] 116/53 121/62 Pulse: 83 82 84 Resp: 18 Temp: 98.1 ??F (36.7 ??C) 98.1 ??F [...] Units Date/Time Wound Culture + Gram Stain [[id number]] (Abnormal) (Susceptibility) Collected: 02/08/25 2319 Order Status: Completed Specimen: Wound from Arm, Right Upper Updated: 02/11/25824 Result Moderate Growth Methicillin resistant Staphylococcus aureus Comment: Resistant organism requires isolation protocol. Moderate Growth Coagulase negative Staphylococcus Gram Stain Result No cells seen Few gram positive cocci in pairs and clusters Few gram positive cocci Blood Culture [[id number]] Collected: 02/08/25 1600 Order Status: Completed Specimen: Blood Updated: 02/10/25 1701 Result No growth in 48 hours Narrative: Blood volume is not within specification. May compromise patient blood culture results. Blood Culture [[id number]] Collected: 02/08/25 1617 Order Status: Completed Specimen: Blood Updated: 02/10/25 1701 Result No growth in 48 hours Narrative: Blood volume is not within specification. May compromise patient blood culture results. Radiology: Radiology Results (last 3 days) Procedure Component Value Units Date/Time Ultrasound hemodialysis access [[id number]] Collected: 02/09/25 0847 Order Status: Completed Updated: 02/09/25 1506 Narrative: Vascular Upper Extremities Arterial Duplex Procedure Demographics Patient Name YANG Norris Age 54 Patient Number [id number] Gender Female Race Unknown Ethnicity Corporate ID [id number] Height 66 Date of 1970 Weight 268 Accession Number [id number] BSA 2.27 m^2 Room Number 400 BMI 43.26 kg/m^2 Referring Physician ERNST AVILA Physician Commercial Estimator OLIVIA Blount Procedure Type of Study: Extremities [...] Signature CT upper extremity without contrast right [[id number]] Collected: 02/08/25 9600 Order Status: Completed Updated: 02/08/25 6879 Narrative: CT RIGHT UPPER EXTREMITY, ATTENTION ELBOW [...] 09/19/24 HBs Ab result Positive (66) Machine [id number] Machine Conductivity 13.7 QC pH 7.2 Machine Temperature 37.1 Test Completed Yes Reverse Osmosis [id number] Alarm Test Passed Treatment Type UF and [...] Patient was referred [facility]the local ER [facility] for further evaluation by vascular [...] Units, 5,000 Units, subcutaneous, Q8H, Arabella Luu, GATE SHEAR OPERATOR, 5,000 Units at 02/11/25 1214 hydrALAZINE (APRESOLINE) [...] POC-GLUCOSE 131 (H) 70 - 110 mg/dL Physical Design Engineer [id number] Wound Culture + Gram Stain Collection Time: [...] POC-GLUCOSE 181 (H) 70 - 110 mg/dL Physical Design Engineer [id number] Glucose, Nova Meter Collection Time: 02/09/25 11:16 AM Result Value Ref Range POC-GLUCOSE 154 (H) 70 - 110 mg/dL Physical Design Engineer [id number] Glucose, Nova Meter Collection Time: 02/09/25 4:16 PM Result Value Ref Range POC-GLUCOSE 232 (H) 70 - 110 mg/dL Physical Design Engineer [id number] Glucose, Nova Meter Collection Time: 02/09/25 8:08 PM Result Value Ref Range POC-GLUCOSE 172 (H) 70 - 110 mg/dL Physical Design Engineer [id number] Glucose, Nova Meter Collection Time: 02/10/25 7:52 AM Result Value Ref Range POC-GLUCOSE 235 (H) 70 - 110 mg/dL Physical Design Engineer [id number] Glucose, Nova Meter Collection Time: 02/10/25 12:23 PM Result Value Ref Range POC-GLUCOSE 274 (H) 70 - 110 mg/dL Physical Design Engineer [id number] Glucose, Nova Meter Collection Time: 02/10/25 6:20 PM Result Value Ref Range POC-GLUCOSE 149 (H) 70 - 110 mg/dL Physical Design Engineer [id number] Glucose, Nova Meter Collection Time: 02/10/25 7:54 PM Result Value Ref Range POC-GLUCOSE 176 (H) 70 - 110 mg/dL Physical Design Engineer [id number] Basic Metabolic Panel Collection Time: 02/11/25 5:31 [...] POC-GLUCOSE 234 (H) 70 - 110 mg/dL Physical Design Engineer [id number] Glucose, Nova Meter Collection Time: 02/11/25 11:42 AM Result Value Ref Range POC-GLUCOSE 240 (H) 70 - 110 mg/dL Physical Design Engineer [id number] Imaging: Ultrasound hemodialysis access Result Date: 02/09/2025 Vascular Upper Extremities Arterial Duplex Procedure Demographics Patient Name YANG Norris Age 54 Patient Number [id number] Gender Female Race Unknown Ethnicity Corporate ID [id number] Height 66 Date of 1970 Weight 268 Accession Number [id number] BSA 2.27 m^2 Room Number 400 BMI 43.26 kg/m^2 Referring Physician ERNST AVILA Physician Commercial Estimator OLIVIA Blount Procedure Type of Study: Extremities [...] discharge in: 1-2 days Expected [facility] disposition[facility], [place] Additional discharge needs: PCP follow-up, nephrology follow-up, transportation Signed: Briana Araiza MD 02/10/2025, 12:15 PM * Delores Hartley RN - 02/10/2025 12:14 PM EDTSummary: Discharge Planning This Pt was discussed at MDR Rounds today. The pt is pending ID final recs for and HD for discharge. This CM Spoke with Esha, [facility] [phone] who said the pt has a bed hold for 30 days. Pt is welcomed back once medically stable for discharge. This CM called Esha back to update her on DC plan. Pt is welcomed back at anytime. N2N # [phone]; . Barrier: ID recs waiting on final [...] POC-GLUCOSE 232 (H) 70 - 110 mg/dL Physical Design Engineer [id number] Glucose, Nova Meter Status: Abnormal Collection Time: 02/09/25 8:08 PM Result Value Ref Range POC-GLUCOSE 172 (H) 70 - 110 mg/dL Physical Design Engineer [id number] Glucose, Nova Meter Status: Abnormal Collection Time: 02/10/25 7:52 AM Result Value Ref Range POC-GLUCOSE 235 (H) 70 - 110 mg/dL Physical Design Engineer [id number] Glucose, Nova Meter Status: Abnormal Collection Time: 02/10/25 12:23 PM Result Value Ref Range POC-GLUCOSE 274 (H) 70 - 110 mg/dL Physical Design Engineer [id number] Ultrasound hemodialysis access Vascular Upper Extremities Arterial Duplex Procedure Demographics Patient Name YANG Norris Age 54 Patient Number [id number] Gender Female Race Unknown Ethnicity Corporate ID [id number] Height 66 Date of 1970 Weight 268 Accession Number [id number] BSA 2.27 m^2 Room Number 400 BMI 43.26 kg/m^2 Referring Physician ERNST DÍAZ Interpreting ANNEMARIE AVILA Physician Commercial Estimator OLIVIA Blount Procedure Type of Study: Extremities [...] Call light in reach. * Leelee Starr [facility] - 02/09/2025 2:11 PM EDT Clinical Rx Vancomycin Progress Note HPI: 54 y.o.female presents to [facility] from dialysis clinic due to bleeding and [...] Units Date/Time Wound Culture + Gram Stain [[id number]] Collected: 02/08/25 2319 Order Status: Completed Specimen: Wound from Arm, Right Upper Updated: 02/09/25 07 Result Too young to evaluate - will reincubate Gram Stain Result No cells seen Few gram positive cocci in pairs and clusters Few gram positive cocci Blood Culture [[id number]] Collected: 02/08/25 1600 Order Status: Resulted Specimen: Blood Updated: 02/08/25 1620 Blood Culture [[id number]] Collected: 02/08/25 1617 Order Status: Resulted Specimen: [...] 02/09/25 1015 Home Environment Type of Residence [facility] Living Arrangements Alone Support Systems Family members;Friends/neighbors Accessibilty Issues Ramp Patient returning to prior living situation? Yes Affect Behavior Appropriate Prior/Regular Transportation Wheelchair van Current Transportation Agency Information [employer] [phone] Needs Assistance with Transportation Yes ADL Assessment Dressing Independent Current Home Care Services None Assistive Devices Prosthesis;Wheelchair Transition Needs Home or Post Acute Services Post acute facilities (Rehab/SNF/etc) Type of Post Acute Facility Services retirement care Does the patient have the ability to fill and receive their discharge medications? No Discharge Plan Discussed The discharge plan was discussed with patient. Discharge Plan Outcome Patient/family hotel services sales representative agrees with the discharge plan Discharge Barriers Test(s) Pending;Diet Type of Assistive Devices Needed for Discharge None Patient Discharge Goal Correction Facility Pt has readmission risk score of 16%. This CM met with the Pt at bedside introduced self and role. Pt resides at [facility] since Sep 28, 2023. This CM sent them a referral via careport. Pt is semi independent with ADL's and uses Prosthesis (R&L) and WC (at bedside) for Mobility. Pt goes to M,W,F at [facility]; Chair time 10:45am. Transport provided by [employer]: [phone]. Discharge Plan: [facility] Barrier: Medical Readiness Transport: Ambulance if on Sat/Sun; Mon-Fri [facility] Addendum: 2:50pm: This CM reached out to [facility] admissions [phone]. Was transferred [facility], This CM left her a with contact info. Wanted the days for bedhold and cut off time?CM will follow. * Kenton Herrera, PharmD - 02/08/2025 8:43 PM EDT Clinical Rx Vancomycin Progress Note HPI: 54 y.o.female presents to [facility] from dialysis clinic due to bleeding and [...] Units Date/Time Wound Culture + Gram Stain [[id number]] Order Status: Sent Specimen: Wound from Arm, Right Upper Blood Culture [[id number]] Collected: 02/08/25 1600 Order Status: Resulted Specimen: Blood Updated: 02/08/25 1620 Blood Culture [[id number]] Collected: 02/08/25 1617 Order Status: Resulted Specimen: [...] Rx to follow Kenton Herrera PharmD Ext. [phone] documented in this encounter H&P Notes * [...] presents to [facility] in [place], [place] for further evaluation and management of [...] Diagnosis Date C. difficile colitis Cardiac arrest ([facility]) 07/19/2024 CHF (congestive heart failure) ([facility]) 01/19/2024 Chronic kidney disease Coronary artery disease-heart stents x 2 2019 CTS (carpal tunnel syndrome)left Depression Diabetes mellitus (HCC) ESRD (end stage renal disease) on dialysis ([facility])/thu Hyperlipidemia, unspecified 10/06/2022 Hypertension Kidney [...] fistula creation; Surgeon: Baljinder Sloan MD; Location: [facility]; Service: Vascular Surgery; Laterality: Right; CREATION,PERICARDIAL WINDOW N/A 12/19/2022 Procedure: CREATION, PERICARDIAL WINDOW; Surgeon: Bogdan Hernandez IV, MD; Location: [facility]; Service: CV Surgery; Laterality: N/A; AO#3, AVAIL TF, 3HR(A) GALLBLADDER SURGERY heart stents INSERTION,DIALYSIS CATHETER KNEE ARTHROSCOPY Right ORIF,FEMUR Left 08/10/2023 Procedure: ORIF LT FEMUR); Surgeon: Otf Birmingham MD; Location: [facility]; Service: OrthopaedicSurgery; Laterality: Left; AO# 4, AVAIL TF melvi left hip TONSILLECTOMY TRANSPOSITION,VEIN Left 04/20/2023 Procedure: (LT UPPER EXTREMITY AV FISTULA); Surgeon: Baljinder Sloan MD; Location: [facility] OR; Service: Vascular; Laterality: Left; IN 0600, [...] she can tolerate hydrocodone (verified 12/19/22) Documented PRESCHOOL DIRECTOR Medications: (Not in a hospital admission) [...] Procedure Component Value Units Date/Time Blood Culture [[id number]] Collected: 02/08/25 1600 Order Status: Resulted Specimen: Blood Updated: 02/08/25 1620 Blood Culture [[id number]] Collected: 02/08/25 1617 Order Status: Resulted Specimen: Blood Updated: 02/08/25 1620 Radiology: Radiology Results (last 3 days) Procedure Component Value Units Date/Time CT upper extremity without contrast right [[id number]] Collected: 02/08/25 1743 Order Status: Completed Updated: [...] 650 mg every 6hrs for mild pain, [place] 5 mg every 6hrs for moderate/severe pain. [...] Olegario Varghese PA-C 02/08/2025, 8:31 PM Voice tumbler dyeing machine operator technology ([employer]) is used for dictation of this note and sound-alike words might be erroneously placed despite reviewing the note for accuracy. Errors in dictation mayreflect use of voice recognition software and not all errors in tumbler dyeing machine operator may have been detected prior to signing. [...] Acknowledged; This CM reached out to Addie [facility] File Clerk [phone] to discuss the consult.Addie stated that they need ID final recs. This CM provided Addie, the pt's info and the IV abx that are currently recommended. Addie suggested that CM fax orders once final recs are available to HD clinic [phone]. Addie will update the clinic today of the IV abx the pt will be starting. MARK abrams. * Edgar Hopper MD - 02/10/2025 1:27 PM EDTAssociated Order(s): FS_MODEL_IP IP CONSULT TO INFECTIOUS DISEASES Images from the original note were not included. [facility] Patient Name: Carla Burkett : 1970 Date of Consult: 02/10/2025 Admission Date: 02/08/2025 Requesting Provider: Dr Araiza Evaluating Physician: Edgar Hopper MD Chief Complaint: right arm infection Reason for Consultation: right arm surgical site infection History of present illness: Patient is a 54 y.o. female with history of diabetes, end-stage renal disease with hemodialysis q. Cbsmcg-Sidaahdvc-Sejovx, right arm brachiocephalic AV fistula creation January [...] Diagnosis Date C. difficile colitis Cardiac arrest ([facility]) 07/19/2024 CHF (congestive heart failure) ([facility]) 01/19/2024 Chronic kidney disease Coronary artery disease-heart stents x 2 2019 CTS (carpal tunnel syndrome)left Depression Diabetes mellitus (HCC) ESRD (end stage renal disease) on dialysis ([facility])/thu Hyperlipidemia, unspecified 10/06/2022 Hypertension Kidney failure Obstructive sleep apnea Osteomyelitis (HCC) resolved Peripheral vascular disease due to secondary diabetes ([facility]) Post-menopausal Wound of right foot [...] WINDOW; Surgeon: Bogdan Hernandez IV, MD; Location: [facility] OR; Service: CV Surgery; Laterality: N/A; AO#3, AVAIL TF, 3HR(A) GALLBLADDER SURGERY heart stents INSERTION,DIALYSIS CATHETER KNEE ARTHROSCOPY Right ORIF,FEMUR Left 08/10/2023 Procedure: ORIF LT FEMUR); Surgeon: Otf Birmingham MD; Location: [facility] OR; Service: OrthopaedicSurgery; Laterality: Left; AO# 4, AVAIL TF melvi left hip TONSILLECTOMY TRANSPOSITION,VEIN Left 04/20/2023 Procedure: (LT UPPER EXTREMITY AV FISTULA); Surgeon: Baljinder Sloan MD; Location: [facility] OR; Service: Vascular; Laterality: Left; IN 0600, [...] 500 mg 500 mg oral Q6H PRN Braina Araiza MD 500 mg at 02/10/25412 amLODIPine [...] mg 10 mg oral Daily PRN Olegario Vargehse PA-C Or bisacodyL (DULCOLAX) suppository 10 mg [...] Units 5,000 Units subcutaneous Q8H Arabella Luu, GATE SHEAR OPERATOR 5,000 Units at 02/10/25 1234 hydrALAZINE (APRESOLINE) [...] Units Date/Time Wound Culture + Gram Stain [[id number]] (Abnormal) Collected: 02/08/25 2319 Order Status: Completed Specimen: Wound from Arm, Right Upper Updated: 02/10/25 1101 Result Moderate Growth Staphylococcus aureus Gram Stain Result No cells seen Few gram positive cocci in pairs and clusters Few gram positive cocci Blood Culture [[id number]] Collected: 02/08/25 1600 Order Status: Completed Specimen: Blood Updated: 02/09/25 1701 Result No growth in 24 hours Narrative: Blood volume is not within specification. May compromise patient blood culture results. Blood Culture [[id number]] Collected: 02/08/25 1617 Order Status: Completed Specimen: Blood Updated: 02/09/25 1701 Result No growth in 24 hours Narrative: Blood volume is not within specification. May compromise patient blood culture results. Radiology: Radiology Results (last 3 days) Procedure Component Value Units Date/Time Ultrasound hemodialysis access [[id number]] Collected: 02/09/25 0847 Order Status: Completed Updated: 02/09/25 1506 Narrative: Vascular Upper Extremities Arterial Duplex Procedure Demographics Patient Name YANG Norris Age 54 Patient Number [id number] Gender Female Race Unknown Ethnicity Corporate ID [id number] Height 66 Date of 1970 Weight 268 Accession Number [id number] BSA 2.27 m^2 Room Number 400 BMI 43.26 kg/m^2 Referring Physician ERNST AVILA Physician Commercial Estimator OLIVIA Blount Procedure Type of Study: Extremities [...] Signature CT upper extremity without contrast right [[id number]] Collected: 02/08/25 1743 Order Status: Completed Updated: [...] Patient was [facility] for further evaluation by vascular surgery and possible need for IV antibiotic initiation. Nephrology consult was requested by the primary team. Past Medical History She has a past medical history of C. difficile colitis, Cardiac arrest ([facility]) (07/19/2024), CHF (congestive heart failure) ([facility]) (01/19/2024), Chronic kidney disease, Coronary artery disease-heart stents x 2 2019, CTS (carpal tunnel syndrome)left, Depression, Diabetes mellitus ([facility]), ESRD (end stagerenal disease) on dialysis (HCC)//thu, Hyperlipidemia, unspecified (10/06/2022), Hypertension, Kidney failure, Obstructive sleep apnea, Osteomyelitis (HCC) resolved, Peripheral vascular disease due to secondary diabetes (HCC), Post- menopausal, and Wound of right foot wrapped. She has no past medical history of AAA (abdominal aortic aneurysm) ([facility]), Asthma, Atrial fibrillation (HCC), Cancer (HCC), Carotid artery occlusion, Clotting disorder (HCC), Heart murmur, Stroke ([facility]), Syncope and collapse, or Thyroid [...] 12.5 mg, 12.5 mg, oral, BID, Olegario Vraghese PA-C, 12.5 mg at 02/09/25 0840 ceFAZolin (ANCEF) 1 g in sodium chloride 0.9 % (NS) 50 mL BLANCA IVPB, 1 g, intravenous, Q8H, Briana Araiza MD dextrose 50% (D50W) injection 25 g, 25 g, intravenous, Q15 Min PRN, Olegario Varghese PA-C gabapentin (NEURONTIN) capsule 300 mg, 300 mg, oral, Every Night, Olegario Varghsee PA-C, 300 mg at 02/08/25 2217 glucagon [...] POC-GLUCOSE 131 (H) 70 - 110 mg/dL Physical Design Engineer [id number] Wound Culture + Gram Stain Collection Time: [...] POC-GLUCOSE 181 (H) 70 - 110 mg/dL Physical Design Engineer [id number] Glucose, Nova Meter Collection Time: 02/09/25 11:16 AM Result Value Ref Range POC-GLUCOSE 154 (H) 70 - 110 mg/dL Physical Design Engineer [id number] Imaging: CT upper extremity without contrast right [...] history of C. difficile colitis, Cardiac arrest ([facility]) (07/19/2024), CHF (congestive heart failure) ([facility]) (01/19/2024), Chronic kidney disease, Coronary artery disease-heart stents x 2 2019, CTS (carpal tunnel syndrome)left, Depression, Diabetes mellitus ([facility]), ESRD (end stagerenal disease) on dialysis ([facility])//thu, Hyperlipidemia, unspecified (10/06/2022), Hypertension, Kidney failure, Obstructive sleep apnea, Osteomyelitis ([facility]) resolved, Peripheral vascular disease due to secondary diabetes ([facility]), Post- menopausal, and Wound of right foot wrapped. She has no past medical history of AAA (abdominal aortic aneurysm) ([facility]), Asthma, Atrial fibrillation ([facility]), Cancer ([facility]), Carotid artery occlusion, Clotting disorder ([facility]), Heart murmur, Stroke ([facility]), Syncope and collapse, or Thyroid [...] POC-GLUCOSE 131 (H) 70 - 110 mg/dL Physical Design Engineer [id number] Wound Culture + Gram Stain Status: None [...] POC-GLUCOSE 181 (H) 70 - 110 mg/dL Physical Design Engineer [id number] Glucose, Nova Meter Status: Abnormal Collection Time: 02/09/25 11:16 AM Result Value Ref Range POC-GLUCOSE 154 (H) 70 - 110 mg/dL Physical Design Engineer [id number] Radiology Results (last 7 days) Procedure Component Value Units Date/Time Ultrasound hemodialysis access [[id number]] Resulted: 02/09/25 1043 Order Status: No result Updated: 02/09/251043 Ultrasound upper extremity arteries left [[id number]] Order Status: Canceled CT upper extremity without contrast right [[id number]] Collected: 02/08/25 1743 Order Status: Completed Updated: [...] chills or trauma. History provided by: Patient angle dozer operator used: No Patient History Past Medical History: Diagnosis Date C. difficile colitis Cardiac arrest ([facility]) 07/19/2024 CHF (congestive heart failure) ([facility]) 01/19/2024 Chronic kidney disease Coronary artery disease-heart stents x 2 2019 CTS (carpal tunnel syndrome)left Depression Diabetes mellitus ([facility]) ESRD (end stage renal disease) on dialysis ([facility]) Hyperlipidemia, unspecified 10/06/2022 Hypertension Kidney failure Obstructive sleep apnea Osteomyelitis ([facility]) resolved Peripheral vascular disease due to secondary diabetes ([facility]) Post-menopausal Wound of right foot wrapped Past Surgical History: Procedure Laterality Date AMPUTATION,TOE Right BELOW KNEE LEG AMPUTATION Left toes first then debridement CARPAL TUNNEL RELEASE Right CREATION,A-V FISTULA Right 01/10/2025 Procedure: LEFT IJ tunneled catheter exchanged RIGHT brachiocephalic arteriovenous fistula creation; Surgeon: Baljinder Sloan MD; Location: [facility]; Service: Vascular Surgery; Laterality: Right; CREATION,PERICARDIAL WINDOW N/A 12/19/2022 Procedure: CREATION, PERICARDIAL WINDOW; Surgeon: Bogdan Hernandez IV, MD; Location: [facility] OR; Service: CV Surgery; Laterality: N/A; AO#3, AVAIL TF, 3HR(A) GALLBLADDER SURGERY heart stents INSERTION,DIALYSIS CATHETER KNEE ARTHROSCOPY Right ORIF,FEMUR Left 08/10/2023 Procedure: ORIF LT FEMUR); Surgeon: Otf Birmingham MD; Location: [facility] OR; Service: OrthopaedicSurgery; Laterality: Left; AO# 4, AVAIL TF melvi left hip TONSILLECTOMY TRANSPOSITION,VEIN Left 04/20/2023 Procedure: (LT UPPER EXTREMITY AV FISTULA); Surgeon: Baljinder Sloan MD; Location: [facility] OR; Service: Vascular; Laterality: [...] [address] Melendrez, hospitalist on [facility] who has agrred to accept the patient. [...] Living Will naming her daughter, Annette Burkett, [facility]. Placed copy in chart and [...] - 110 mg/dL 02/13/2025 6:49 PM EDT [facility] Comment: In the event of poor peripheral blood flow, venous or arterial blood should be used due to the potential of erroneous results. Notified Nurse RBV Physical Design Engineer [id number] 02/13/2025 6:49 PM EDT [facility] Blood WHOLE BLOOD / Unknown 02/13/2025 6:48 PM EDT 02/13/2025 6:49 PM EDT Narrative [facility] - 02/13/2025 6:49 PM EDT Physical Design Engineer ID is - [id number] us Briana Araiza MD POINT OF CARE TEST ORDERABLES Fi nal Result Performing Organization Address [facility] [place] Phone Number [facility] [address] [phone] * (ABNORMAL) Glucose, Nova Meter (02/13/2025 11:22 AM EDT) POC-GLUCOSE 344(H) 70 - 110 mg/dL 02/13/2025 11:25 AM EDT [facility] Comment: In the event of poor peripheral blood flow, venous or arterial blood should be used due to the potential of erroneous results. Notified Nurse RBV Physical Design Engineer [id number] 02/13/2025 11:25 AM EDT [facility] Blood WHOLE BLOOD / Unknown 02/13/2025 11:22 AM EDT 02/13/2025 11:25 AM EDT Narrative [facility] - 02/13/2025 11:25 AM EDT Physical Design Engineer ID is - [id number] us Briana Araiza MD POINT OF CARE TEST ORDERABLES Fi nal Result Performing Organization Address [facility] Co de Phone Number [facility] [address] [phone] * (ABNORMAL) Glucose, Nova Meter (02/13/2025 7:37 AM EDT) [facility] POC-GLUCOSE 278(H) 70 - 110 mg/dL 02/13/2025 7:39 AM EDT [facility] Comment: In the event of poor peripheral blood flow, venous or arterial blood should be used due to the potential of erroneous results. Notified Nurse RBV Physical Design Engineer [id number] 02/13/2025 7:39 AM EDT [facility] Blood WHOLE BLOOD / Unknown 02/13/2025 7:37 AM EDT 02/13/2025 7:39 AM EDT Narrative [facility] - 02/13/2025 7:39 AM EDT Physical Design Engineer ID is - [id number] us Briana Araiza MD POINT OF CARE TEST ORDERABLES Fi nal Result Performing Organization Address [facility]/ZIP Co de Phone Number [facility] [address] [phone] * Hepatitis B surface antigen (02/13/2025 5:08 AM EDT) [facility] Hepatitis B surface antigen Nonreactive Nonreactive 02/13/2025 7:19 AM EDT [facility] Blood Venipuncture / Unknown 02/13/2025 5:08 AM EDT 02/13/2025 5:46 AM EDT us Nataliya Cain MD LAB BLOOD ORDERABLES Final Resul t Performing Organization Address [facility]/ZIP Co de Phone Number [facility] [address] [phone] * (ABNORMAL) CBC with automated diff (02/13/2025 5:08 AM EDT) [facility] WBC 8.1 4.0 - 10.0 K/ L 02/13/2025 5:59 AM EDT [facility] RBC 3.34(L) 3.93 - 5.22 M/ L 02/13/2025 5:59 AM EDT [facility] Hemoglobin 10.7(L) 11.2 - 15.7 GM/DL 02/13/2025 5:59 AM EDT [facility] Hematocrit 32.4(L) 34.1 - 44.9 % 02/13/2025 5:59 AM EDT [facility] MCV 97(H) 79 - 95 fL 02/13/2025 5:59 AM EDT [facility] MCH 32.0 25.6 - 32.2 pg 02/13/2025 5:59 AM EDT [facility] MCHC 33.0 32.2 - 35.5 GM/DL 02/13/2025 5:59 AM EDT [facility] RDW 12.9 11.7 - 14.4 % 02/13/2025 5:59 AM EDT [facility] Platelets 241 140 - 375 K/CU MM 02/13/2025 5:59 AM EDT [facility] MPV 9.7 9.4 - 12.3 fL 02/13/2025 5:59 AM EDT [facility] % Neutros 60 34 - 71 % 02/13/2025 5:59 AM EDT [facility] % Lymphs 29 19 - 52 % 02/13/2025 5:59 AM EDT [facility] % Monos 9 5 - 13 % 02/13/2025 5:59 AM EDT [facility] % Eos 2 1 - 6 % 02/13/2025 5:59 AM EDT [facility] % Baso 1 0 - 1 % 02/13/2025 5:59 AM EDT [facility] NRBC Absolute <0.01 0 - 0.012 K/ul 02/13/2025 5:59 AM EDT [facility] # Neutros 4.82 1.56 - 6.13 K/ L 02/13/2025 5:59 AM EDT [facility] # Lymphs 2.32 1.18 - 3.74 K/ L 02/13/2025 5:59 AM EDT [facility] # Monos 0.70 0.24 - 0.86 K/ L 02/13/2025 5:59 AM EDT [facility] # Eos 0.13 0.04 - 0.36 K/ L 02/13/2025 5:59 AM EDT [facility] # Baso 0.04 0.01 - 0.08 K/ L 02/13/2025 5:59 AM EDT [facility] Immature Granulocytes-Re lative 0.60(H) 0.01 - 0.43 % 02/13/2025 5:59 AM EDT [facility] # IG 0.05(H) 0.00 - 0.03 K/uL 02/13/2025 5:59 AM EDT [facility] Blood Venipuncture / Unknown 02/13/2025 5:08 AM EDT 02/13/2025 5:54 AM EDT Narrative [facility] - 02/13/2025 5:59 AM EDT When [...] Resul t [facility] [address] [phone] * (ABNORMAL) Basic Metabolic Panel (02/13/2025 5:08 AM EDT) Sodium 135(L) 136 - 145 meq/L 02/13/2025 6:19 AM EDT [facility] Potassium 4.3 3.4 - 5.1 meq/L 02/13/2025 6:19 AM EDT [facility] CO2 25 22 - 29 meq/L 02/13/2025 6:19 AM EDT [facility] Chloride 97(L) 98 - 112 meq/L 02/13/2025 6:19 AM EDT [facility] Glucose 276(H) 74 - 100 mg/dL 02/13/2025 6:19 AM EDT [facility] BUN 35.2(H) 9.8 - 20.1 mg/dL 02/13/2025 6:19 AM EDT [facility] Creatinine 6.77(H) 0.57 - 1.11 mg/dL 02/13/2025 6:19 AM EDT [facility] BUN/Creatinine 5(L) 8 - 20 02/13/2025 6:19 AM EDT [facility] Calcium 7.3(L) 8.4 - 10.2 mg/dL 02/13/2025 6:19 AM EDT [facility] Anion Gap 17(H) 4 - 12 02/13/2025 6:19 AM EDT [facility] eGFR (mL/min/1.73m2) 7(L) >=60 mL/min/1.7 3m2 02/13/2025 6:19 AM EDT [facility] Osmolality Calc 288.0 mOsm/kg 6:19 AM EDT [facility] Blood Venipuncture / Unknown 02/13/2025 5:08 AM EDT 02/13/2025 5:46 AM EDT Briana Araiza MD LAB BLOOD ORDERABLES Final Resul t [facility] [address] [phone] * Vancomycin level, random (02/13/2025 5:08 AM EDT) Vancomycin Rm 18.4 0.0 - 40.0 ug/mL 02/13/2025 6:19 AM EDT [facility] Comment: Therapeutic peak: >20 to 40 ug/mL Trough levels: 10 to 20 ug/mL Toxicity: > 80 ug/mL Blood Venipuncture / Unknown 02/13/2025 5:08 AM EDT 02/13/2025 5:46 AM EDT Olegario Varghese PA-C LAB BLOOD ORDERABLES Final R esult [facility] [address] [phone] * (ABNORMAL) Glucose, Nova Meter (02/12/2025 8:23 PM EDT) POC-GLUCOSE 316(H) 70 - 110 mg/dL 02/12/2025 8:24 PM EDT [facility] Comment: In the event of poor peripheral blood flow, venous or arterial blood should be used due to the potential of erroneous results. Notified Nurse RBV Physical Design Engineer [id number] 02/12/2025 8:24 PM EDT [facility] Blood WHOLE BLOOD / Unknown 02/12/2025 8:23 PM EDT 02/12/2025 8:24 PM EDT Narrative [facility] - 02/12/2025 8:24 PM EDT Physical Design Engineer ID is - [id number] us Briana Araiza MD POINT OF CARE TEST ORDERABLES Fi nal Result Performing Organization Address [facility] Co de Phone Number [facility] [address] [phone] * (ABNORMAL) Glucose, Nova Meter (02/12/2025 3:31 PM EDT) Pathologist [facility] [place] POC-GLUCOSE 279(H) 70 - 110 mg/dL 02/12/2025 3:35 PM EDT [facility] Comment: In the event of poor peripheral blood flow, venous or arterial blood should be used due to the potential of erroneous results. Notified Nurse RBV Protocols Followed Physical Design Engineer [id number] 02/12/2025 3:35 PM EDT [facility] Blood WHOLE BLOOD / Unknown 02/12/2025 3:31 PM EDT 02/12/2025 3:35 PM EDT Narrative [facility] - 02/12/2025 3:35 PM EDT Physical Design Engineer ID is - [id number] us Briana Araiza MD POINT OF CARE TEST ORDERABLES Fi nal Result Performing Organization Address [facility] Co de Phone Number [facility] [address] [phone] * (ABNORMAL) Glucose, Nova Meter (02/12/2025 11:19 AM EDT) POC-GLUCOSE 230(H) 70 - 110 mg/dL 02/12/2025 11:23 AM EDT [facility] Comment: In the event of poor peripheral blood flow, venous or arterial blood should be used due to the potential of erroneous results. Protocols Followed Notified Nurse RBV Physical Design Engineer [id number] 02/12/2025 11:23 AM EDT [facility] Blood WHOLE BLOOD / Unknown 02/12/2025 11:19 AM EDT 02/12/2025 11:23 AM EDT Narrative [facility] - 02/12/2025 11:23 AM EDT Physical Design Engineer ID is - [id number] Briana Araiza MD POINT OF CARE TEST ORDERABLES Fi nal Result Performing Organization Address [facility] de Phone Number [facility] [address] [phone] * (ABNORMAL) Glucose, Nova Meter (02/12/2025 7:29 AM EDT) POC-GLUCOSE 203(H) 70 - 110 mg/dL 02/12/2025 7:31 AM EDT [facility] Comment: In the event of poor peripheral blood flow, venous or arterial blood should be used due to the potential of erroneous results. Notified Nurse RBV Protocols Followed Physical Design Engineer [id number] 02/12/2025 7:31 AM EDT [facility] Blood WHOLE BLOOD / Unknown 02/12/2025 7:29 AM EDT 02/12/2025 7:31 AM EDT Narrative [facility] - 02/12/2025 7:31 AM EDT Physical Design Engineer ID is - [id number] us Briana Araiza MD POINT OF CARE TEST ORDERABLES Fi nal Result Performing Organization Address [facility] Co de Phone Number [facility] [address] [phone] * (ABNORMAL) Glucose, Nova Meter (02/11/2025 8:02 PM EDT) POC-GLUCOSE 205(H) 70 - 110 mg/dL 02/16/2025 2:01 PM EDT [facility] Comment: In the event of poor peripheral blood flow, venous or arterial blood should be used due to the potential of erroneous results. Notified Nurse RBV Physical Design Engineer [id number] 02/16/2025 2:01 PM EDT [facility] Blood WHOLE BLOOD / Unknown 02/11/2025 8:02 PM EDT 02/16/2025 2:01 PM EDT Narrative [facility] - 02/16/2025 2:01 PM EDT Physical Design Engineer ID is - [id number] us Briana Araiza MD POINT OF CARE TEST ORDERABLES Fi nal Result Performing Organization Address [facility] Phone Number [facility] [address] [phone] * (ABNORMAL) Glucose, Nova Meter (02/11/2025 4:09 PM EDT) POC-GLUCOSE 208(H) 70 - 110 mg/dL 02/11/2025 4:14 PM EDT [facility] Comment: In the event of poor peripheral blood flow, venous or arterial blood should be used due to the potential of erroneous results. Notified Nurse RBV Physical Design Engineer [id number] 02/11/2025 4:14 PM EDT [facility] Blood WHOLE BLOOD / Unknown 02/11/2025 4:09 PM EDT 02/11/2025 4:14 PM EDT Narrative [facility] - 02/11/2025 4:14 PM EDT Physical Design Engineer ID is - [id number] us Briana Araiza MD POINT OF CARE TEST ORDERABLES Fi nal Result Performing Organization Address [facility] Co de Phone Number [facility] [address] [place] [address], [facility] [place] [phone] * (ABNORMAL) Glucose, Nova Meter (02/11/2025 11:42 AM EDT) POC-GLUCOSE 240(H) 70 - 110 mg/dL 02/11/2025 11:45 AM EDT [facility] Comment: In the event of poor peripheral blood flow, venous or arterial blood should be used due to the potential of erroneous results. Notified Nurse RBV Physical Design Engineer [id number] 02/11/2025 11:45 AM EDT [facility] Blood WHOLE BLOOD / Unknown 02/11/2025 11:42 AM EDT 02/11/2025 11:45 AM EDT Narrative [facility] - 02/11/2025 11:45 AM EDT Physical Design Engineer ID is - [id number] us Briana Araiza MD POINT OF CARE TEST ORDERABLES Fi nal Result Performing Organization Address [facility] Phone Number [facility] [address] [phone] * (ABNORMAL) Glucose, Nova Meter (02/11/2025 7:36 AM EDT) POC-GLUCOSE 234(H) 70 - 110 mg/dL 02/11/2025 8:10 AM EDT [facility] Comment: In the event of poor peripheral blood flow, venous or arterial blood should be used due to the potential of erroneous results. Notified Nurse RBV Physical Design Engineer [id number] 02/11/2025 8:10 AM EDT [facility] Blood WHOLE BLOOD / Unknown 02/11/2025 7:36 AM EDT 02/11/2025 8:10 AM EDT Narrative [facility] - 02/11/2025 8:10 AM EDT Physical Design Engineer ID is - [id number] us Briana Araiza MD POINT OF CARE TEST ORDERABLES Fi nal Result Performing Organization Address [facility] Co de Phone Number [facility] [address] [phone] * (ABNORMAL) C-Reactive Protein (02/11/2025 5:31 AM EDT) Pathologist [facility] [place] CRP 11.0(H) 0.0 - 5.0 mg/L 02/11/2025 6:27 AM EDT [facility] Blood Venipuncture / Unknown 02/11/2025 5:31 AM EDT 02/11/2025 5:52 AM EDT us Briana Araiza MD LAB BLOOD ORDERABLES Final Resul t [facility] [address] [phone] * (ABNORMAL) CBC with automated diff (02/11/2025 5:31 AM EDT) Pathologist [facility] [place] WBC 8.7 4.0 - 10.0 K/ L 02/11/2025 6:07 AM EDT [facility] RBC 3.68(L) 3.93 - 5.22 M/ L 02/11/2025 6:07 AM EDT [facility] Hemoglobin 12.0 11.2 - 15.7 GM/DL 02/11/2025 6:07 AM EDT [facility] Hematocrit 35.9 34.1 - 44.9 % 02/11/2025 6:07 AM EDT [facility] MCV 98(H) 79 - 95 fL 02/11/2025 6:07 AM EDT [facility] MCH 32.6(H) 25.6 - 32.2 pg 02/11/2025 6:07 AM EDT [facility] MCHC 33.4 32.2 - 35.5 GM/DL 02/11/2025 6:07 AM EDT [facility] RDW 12.9 11.7 - 14.4 % 02/11/2025 6:07 AM EDT [facility] Platelets 291 140 - 375 K/CU MM 02/11/2025 6:07 AM EDT [facility] MPV 9.3(L) 9.4 - 12.3 fL 02/11/2025 6:07 AM EDT [facility] % Neutros 66 34 - 71 % 02/11/2025 6:07 AM EDT [facility] % Lymphs 24 19 - 52 % 02/11/2025 6:07 AM EDT [facility] % Monos 7 5 - 13 % 02/11/2025 6:07 AM EDT [facility] % Eos 2 1 - 6 % 02/11/2025 6:07 AM EDT [facility] % Baso 1 0 - 1 % 02/11/2025 6:07 AM EDT [facility] NRBC Absolute <0.01 0 - 0.012 K/ul 02/11/2025 6:07 AM EDT [facility] # Neutros 5.71 1.56 - 6.13 K/ L 02/11/2025 6:07 AM EDT [facility] # Lymphs 2.12 1.18 - 3.74 K/ L 02/11/2025 6:07 AM EDT [facility] # Monos 0.58 0.24 - 0.86 K/ L 02/11/2025 6:07 AM EDT [facility] # Eos 0.17 0.04 - 0.36 K/ L 02/11/2025 6:07 AM EDT [facility] # Baso 0.04 0.01 - 0.08 K/ L 02/11/2025 6:07 AM EDT [facility] Immature Granulocytes-Re lative 0.70(H) 0.01 - 0.43 % 02/11/2025 6:07 AM EDT [facility] # IG 0.06(H) 0.00 - 0.03 K/uL 02/11/2025 6:07 AM EDT [facility] Blood Venipuncture / Unknown 02/11/2025 5:31 AM EDT 02/11/2025 5:52 AM EDT [facility] - 02/11/2025 6:07 AM EDT When [...] Resul t [facility] [address] [phone] * (ABNORMAL) Basic Metabolic Panel (02/11/2025 5:31 AM EDT) Sodium 135(L) 136 - 145 meq/L 02/11/2025 6:27 AM EDT [facility] Potassium 4.0 3.4 - 5.1 meq/L 02/11/2025 6:27 AM EDT [facility] CO2 25 22 - 29 meq/L 02/11/2025 6:27 AM EDT [facility] Chloride 98 98 - 112 meq/L 02/11/2025 6:27 AM EDT [facility] Glucose 216(H) 74 - 100 mg/dL 02/11/2025 6:27 AM EDT [facility] BUN 19.4 9.8 - 20.1 mg/dL 02/11/2025 6:27 AM EDT [facility] Creatinine 4.17(H) 0.57 - 1.11 mg/dL 02/11/2025 6:27 AM EDT [facility] BUN/Creatinine 5(L) 8 - 20 02/11/2025 6:27 AM EDT [facility] Calcium 7.9(L) 8.4 - 10.2 mg/dL 02/11/2025 6:27 AM EDT [facility] Anion Gap 16(H) 4 - 12 02/11/2025 6:27 AM EDT [facility] eGFR (mL/min/1.73m2) 12(L) >=60 mL/min/1.7 3m2 02/11/2025 6:27 AM EDT [facility] Osmolality Calc 279.0 mOsm/kg 6:27 AM EDT [facility] Blood Venipuncture / Unknown 02/11/2025 5:31 AM EDT 02/11/2025 5:52 AM EDT Briana Araiza MD LAB BLOOD ORDERABLES Final Resul t [facility] [address] [place] [address], [facility] [place] [phone] * (ABNORMAL) Glucose, Nova Meter (02/10/2025 7:54 PM EDT) POC-GLUCOSE 176(H) 70 - 110 mg/dL 02/10/2025 7:56 PM EDT [facility] Comment: In the event of poor peripheral blood flow, venous or arterial blood should be used due to the potential of erroneous results. Notified Nurse RBV Physical Design Engineer [id number] 02/10/2025 7:56 PM EDT [facility] Blood WHOLE BLOOD / Unknown 02/10/2025 7:54 PM EDT 02/10/2025 7:56 PM EDT [facility] - 02/10/2025 7:56 PM EDT Physical Design Engineer ID is - [id number] us Briana Araiza MD POINT OF CARE TEST ORDERABLES Fi nal Result [facility] [address] [place] [address], [facility] [place] [phone] * (ABNORMAL) Glucose, Nova Meter (02/10/2025 6:20 PM EDT) POC-GLUCOSE 149(H) 70 - 110 mg/dL 02/10/2025 6:22 PM EDT [facility] Comment: In the event of poor peripheral blood flow, venous or arterial blood should be used due to the potential of erroneous results. Protocols Followed Physical Design Engineer [id number] 02/10/2025 6:22 PM EDT [facility] Blood WHOLE BLOOD / Unknown 02/10/2025 6:20 PM EDT 02/10/2025 6:22 PM EDT Narrative [facility] - 02/10/2025 6:22 PM EDT Physical Design Engineer ID is - [id number] Briana Araiza MD POINT OF CARE TEST ORDERABLES Fi nal Result Performing Organization Address City/[facility]/ZIP Co de Phone Number [facility] [address] [phone] * (ABNORMAL) Glucose, Nova Meter (02/10/2025 12:23 PM EDT) POC-GLUCOSE 274(H) 70 - 110 mg/dL 02/10/2025 12:26 PM EDT [facility] Comment: In the event of poor peripheral blood flow, venous or arterial blood should be used due to the potential of erroneous results. Protocols Followed Notified Nurse RBV Physical Design Engineer [id number] 02/10/2025 12:26 PM EDT [facility] Blood WHOLE BLOOD / Unknown 02/10/2025 12:23 PM EDT 02/10/2025 12:26 PM EDT [facility] - 02/10/2025 12:26 PM EDT Physical Design Engineer ID is - [id number] Briana Araiza MD POINT OF CARE TEST ORDERABLES Fi nal Result Performing Organization Address City/[facility] Co de Phone Number [facility] [address] [phone] * (ABNORMAL) Glucose, Nova Meter (02/10/2025 7:52 AM EDT) POC-GLUCOSE 235(H) 70 - 110 mg/dL 02/10/2025 8:36 AM EDT [facility] Comment: In the event of poor peripheral blood flow, venous or arterial blood should be used due to the potential of erroneous results. Protocols Followed Notified Nurse RBV Physical Design Engineer [id number] 02/10/2025 8:36 AM EDT [facility] Blood WHOLE BLOOD / Unknown 02/10/2025 7:52 AM EDT 02/10/2025 8:36 AM EDT [facility] - 02/10/2025 8:36 AM EDT Physical Design Engineer ID is - [id number] us Briana Araiza MD POINT OF CARE TEST ORDERABLES Fi nal Result [facility] [address] [phone] * (ABNORMAL) Glucose, Nova Meter (02/09/2025 8:08 PM EDT) POC-GLUCOSE 172(H) 70 - 110 mg/dL 02/09/2025 8:09 PM EDT [facility] Comment: In the event of poor peripheral blood flow, venous or arterial blood should be used due to the potential of erroneous results. Protocols Followed Physical Design Engineer [id number] 02/09/2025 8:09 PM EDT [facility] Blood WHOLE BLOOD / Unknown 02/09/2025 8:08 PM EDT 02/09/2025 8:09 PM EDT [facility] - 02/09/2025 8:09 PM EDT Physical Design Engineer ID is - [id number] us Briana Araiza MD POINT OF CARE TEST ORDERABLES Fi nal Result [facility] [address] [phone] * (ABNORMAL) Glucose, Nova Meter (02/09/2025 4:16 PM EDT) POC-GLUCOSE 232(H) 70 - 110 mg/dL 02/09/2025 4:18 PM EDT [facility] Comment: In the event of poor peripheral blood flow, venous or arterial blood should be used due to the potential of erroneous results. Notified Nurse RBV Physical Design Engineer [id number] 02/09/2025 4:18 PM EDT [facility] Blood WHOLE BLOOD / Unknown 02/09/2025 4:16 PM EDT 02/09/2025 4:18 PM EDT Narrative [facility] - 02/09/2025 4:18 PM EDT Physical Design Engineer ID is - [id number] us Briana Araiza MD POINT OF CARE TEST ORDERABLES Fi nal Result Performing Organization Address [facility] Co de Phone Number [facility] [address] [phone] * (ABNORMAL) Glucose, Nova Meter (02/09/2025 11:16 AM EDT) POC-GLUCOSE 154(H) 70 - 110 mg/dL 02/09/2025 11:22 AM EDT [facility] Comment: In the event of poor peripheral blood flow, venous or arterial blood should be used due to the potential of erroneous results. Notified Nurse RBV Physical Design Engineer [id number] 02/09/2025 11:22 AM EDT [facility] Blood WHOLE BLOOD / Unknown 02/09/2025 11:16 AM EDT 02/09/2025 11:22 AM EDT Narrative [facility] - 02/09/2025 11:22 AM EDT Physical Design Engineer ID is - [id number] Briana Araiza MD POINT OF CARE TEST ORDERABLES Fi nal Result Performing Organization Address [facility] Co de Phone Number [facility] [address] [phone] * Ultrasound hemodialysis access (02/09/2025 9:30 AM EDT) Anatomical Region Laterality Modality Vascular, Abdomen Vascular Ultra sound 02/09/2025 8:47 AM EDT Narrative 02/09/2025 3:06 PM EDT Vascular Upper Extremities Arterial Duplex Procedure Demographics Patient Name YANG Norris Age 54 Patient Number [id number] Gender Female Race Unknown Ethnicity Corporate ID [id number] Height 66 Date of 1970 Weight 268 Accession Number [id number] BSA 2.27 m^2 Room Number 400 BMI 43.26 kg/m^2 Referring Physician ERNST AVILA Physician Commercial Estimator OLIVIA Blount Procedure Type of Study: Extremities [...] Name YANG Norris Age 54 Patient Number [id number] Gender Female Race Unknown Ethnicity Corporate ID [id number] Height 66 Date of 1970 Weight 268 Accession Number [id number] BSA 2.27 m^2 Room Number 400 BMI 43.26kg/m^2 Referring Physician ERNST DÍAZ Interpreting ANNEMARIE AVILA Physician Commercial Estimator OLIVIA Blount Procedure Type of Study: Extremities [...] Nova Meter (02/09/2025 7:32 AM EDT) Pathologist [facility] [place] POC-GLUCOSE 181(H) 70 - 110 mg/dL 02/09/2025 7:35 AM EDT [facility] Comment: In the event of poor peripheral blood flow, venous or arterial blood should be used due to the potential of erroneous results. Notified Nurse RBV Physical Design Engineer [id number] 02/09/2025 7:35 AM [facility] Blood WHOLE BLOOD / Unknown 02/09/2025 7:32 AM EDT 02/09/2025 7:35 AM EDT Narrative [facility] - 02/09/2025 7:35 AM EDT Physical Design Engineer ID is - [id number] Olegario Varghese PA-C POINT OF CARE TEST ORDERABLE S Final Result [facility] [address] [phone] * (ABNORMAL) Comprehensive metabolic panel (02/09/2025 4:41 AM EDT) Sodium 142 136 - 145 meq/L 02/09/2025 6:09 AM EDT [facility] Potassium 4.0 3.4 - 5.1 meq/L 02/09/2025 6:09 AM EDT [facility] Chloride 100 98 - 112 meq/L 02/09/2025 6:09 AM EDT [facility] CO2 31(H) 22 - 29 meq/L 02/09/2025 6:09 AM EDT [facility] Calcium 9.0 8.4 - 10.2 mg/dL 02/09/2025 6:09 AM EDT [facility] Glucose 197(H) 74 - 100 mg/dL 02/09/2025 6:09 AM EDT [facility] BUN 29.8(H) 9.8 - 20.1 mg/dL 02/09/2025 6:09 AM EDT [facility] Creatinine 4.72(H) 0.57 - 1.11 mg/dL 02/09/2025 6:09 AM EDT [facility] BUN/Creatinine 6(L) 8 - 20 02/09/2025 6:09 AM EDT [facility] eGFR (mL/min/1.73m2) 10(L) >=60 mL/min/1. 73m2 02/09/2025 6:09 AM EDT [facility] Albumin 3.0(L) 3.5 - 5.0 g/dL 02/09/2025 6:09 AM EDT [facility] Alkaline Phosphatase 175(H) 40 - 150 U/L 02/09/2025 6:09 AM EDT [facility] ALT 35(H) <=34 U/L 02/09/2025 6:09 AM EDT [facility] Comment: ALT2 reagent used for testing does not contain P5P supplementation and therefore may miss ALT elevations in patients with B6 deficiency. This population may be as high as 10% in the [place], with risk factors including malabsorption, drug interactions, and alcoholic hepatitis. AST 28 11 - 34 U/L 02/09/2025 6:09 AM EDT [facility] Comment: AST2 reagent used for testing does not contain P5P supplementation and therefore may miss AST elevations in patients with B6 deficiency. This population may be as high as 10% in the [place], with risk factors including malabsorption, drug interactions, and alcoholic hepatitis. Total Bilirubin 0.4 0.2 - 1.2 mg/dL 02/09/2025 6:09 AM EDT [facility] Protein, Total 6.6 6.4 - 8.3 g/dL 02/09/2025 6:09 AM EDT [facility] Globulin 3.6 2.5 - 4.1 g/dL 02/09/2025 6:09 AM EDT [facility] Anion Gap 15(H) 4 - 12 02/09/2025 6:09 AM EDT [facility] A/G Ratio 0.8 0.7 - 1.9 02/09/2025 6:09 AM EDT [facility] Osmolality Calc 294.7 mOsm/kg 6:09 AM EDT [facility] Blood Venipuncture / Unknown 02/09/2025 4:41 AM EDT 02/09/2025 5:46 AM EDT us Olegario Varghese PA-C LAB BLOOD ORDERABLES Final R esult [facility] [address] [place] [address], [facility] [place] [phone] * (ABNORMAL) CBC with automated diff (02/09/2025 4:41 AM EDT) WBC 8.4 4.0 - 10.0 K/ L 02/09/2025 6:04 AM EDT [facility] RBC 3.46(L) 3.93 - 5.22 M/ L 02/09/2025 6:04 AM EDT [facility] Hemoglobin 11.0(L) 11.2 - 15.7 GM/DL 02/09/2025 6:04 AM EDT [facility] Hematocrit 34.5 34.1 - 44.9 % 02/09/2025 6:04 AM EDT [facility] MCV 100(H) 79 - 95 fL 02/09/2025 6:04 AM EDT [facility] MCH 31.8 25.6 - 32.2 pg 02/09/2025 6:04 AM EDT [facility] MCHC 31.9(L) 32.2 - 35.5 GM/DL 02/09/2025 6:04 AM EDT [facility] RDW 13.4 11.7 - 14.4 % 02/09/2025 6:04 AM EDT [facility] Platelets 313 140 - 375 K/CU MM 02/09/2025 6:04 AM EDT [facility] MPV 9.7 9.4 - 12.3 fL 02/09/2025 6:04 AM EDT [facility] % Neutros 59 34 - 71 % 02/09/2025 6:04 AM EDT [facility] % Lymphs 30 19 - 52 % 02/09/2025 6:04 AM EDT [facility] % Monos 7 5 - 13 % 02/09/2025 6:04 AM EDT [facility] % Eos 2 1 - 6 % 02/09/2025 6:04 AM EDT [facility] % Baso 1 0 - 1 % 02/09/2025 6:04 AM EDT [facility] NRBC Absolute <0.01 0 - 0.012 K/ul 02/09/2025 6:04 AM EDT [facility] # Neutros 4.97 1.56 - 6.13 K/ L 02/09/2025 6:04 AM EDT [facility] # Lymphs 2.54 1.18 - 3.74 K/ L 02/09/2025 6:04 AM EDT [facility] # Monos 0.62 0.24 - 0.86 K/ L 02/09/2025 6:04 AM EDT [facility] # Eos 0.16 0.04 - 0.36 K/ L 02/09/2025 6:04 AM EDT [facility] # Baso 0.05 0.01 - 0.08 K/ L 02/09/2025 6:04 AM EDT [facility] Immature Granulocytes-Re lative 1.10(H) 0.01 - 0.43 % 02/09/2025 6:04 AM EDT [facility] # IG 0.09(H) 0.00 - 0.03 K/uL 02/09/2025 6:04 AM EDT [facility] Blood Venipuncture / Unknown 02/09/2025 4:41 AM EDT 02/09/2025 5:57 AM EDT Narrative [facility] - 02/09/2025 6:04 AM EDT When [...] PA-C LAB BLOOD ORDERABLES Final R esult [facility] [address] [phone] * (ABNORMAL) Wound Culture + Gram Stain (02/08/2025 11:19 PM EDT) Result Moderate Growth Methicillin resistant Staphylococcus aureus(A) 02/12/2025 8:05 AM EDT [facility] Comment:Resistant organism r equires isolation protocol. Result Moderate Growth Staphylococcus epidermidis(A) 02/12/2025 8:05 AM EDT [facility] Gram Stain Result No cells seen 02/12/2025 8:05 AM EDT [facility] Gram Stain Result Few gram positive cocci in pairs and clusters 02/12/2025 8:05 AM EDT [facility] Gram Stain Result Few gram positive cocci 02/12/2025 8:05 AM EDT [facility] Wound RIGHT UPPER ARM STRUCTURE / [...] MICROBIOLOGY - GENERAL ORDER EAN Final Result [facility] [address] [phone] * (ABNORMAL) Glucose, Nova Meter (02/08/2025 10:58 PM EDT) [facility] POC-GLUCOSE 131(H) 70 - 110 mg/dL 02/08/2025 10:59 PM EDT [facility] Comment: In the event of poor peripheral blood flow, venous or arterial blood should be used due to the potential of erroneous results. Notified Nurse RBV Physical Design Engineer [phone] 02/08/2025 10:59 PM EDT [facility] Blood WHOLE BLOOD / Unknown 02/08/2025 10:58 PM EDT 02/08/2025 10:59 PM EDT Narrative [facility] - 02/08/2025 10:59 PM EDT Physical Design Engineer ID is - [id number] us Olegario Varghese PA-C POINT OF CARE TEST ORDERABLE S Final Result [facility] [address] [phone] * CT upper extremity without contrast right [...] Hold for add-ons. 02/08/2025 6:01 PM EDT [facility] Comment:Auto resulted. Blood Venipuncture / Unknown 02/08/2025 4:17 PM EDT 02/08/2025 4:20 PM EDT Loco Cortes MD LAB BLOOD ORDERABLES Final Res ult Performing Organization Address [facility] Co de Phone Number [facility] [address] [phone] * Blue Top Extra Tubes (02/08/2025 4:17 PM EDT) HOLD SPECIMEN (SJ - BKR) Hold for add-ons. 02/08/2025 6:01 PM EDT [facility] Comment:Auto resulted. Blood Venipuncture / Unknown 02/08/2025 4:17 PM EDT 02/08/2025 4:20 PM EDT Loco Cortes MD LAB BLOOD ORDERABLES Final Res ult Performing Organization Address [facility] Co de Phone Number [facility] [address] [phone] * Blood Culture (02/08/2025 4:17 PM EDT) Result No growth in 5 days 02/13/2025 5:00 PM EDT [facility] Blood ENTIRE RIGHT UPPER ARM / Unknown Venipuncture / Unknown 02/08/2025 4:17 PM EDT 02/08/2025 4:20 PM EDT Narrative [facility] - 02/13/2025 5:00 PM EDT Blood volume is not within specification. May compromise patient blood culture results. [employer] MICROBIOLOGY - GENERAL ORDERABLE S Final Result Performing Organization Address City/[facility] Co de Phone Number [facility] [address] [phone] * (ABNORMAL) C-Reactive Protein (02/08/2025 4:00 PM EDT) CRP 18.6(H) 0.0 - 5.0 mg/L 02/08/2025 4:39 PM EDT [facility] Blood Venipuncture / Unknown 02/08/2025 4:00 PM EDT 02/08/2025 4:20 PM EDT [employer] LAB BLOOD ORDERABLES Final Resul t Performing Organization Address City/[facility]/ZIP Co de Phone Number [facility] [address] [phone] * (ABNORMAL) Sedimentation rate (02/08/2025 4:00 PM EDT) Sed Rate 35(H) 0 - 30 mm/HR 02/08/2025 4:43 PM EDT [facility] Blood Venipuncture / Unknown 02/08/2025 4:00 PM EDT 02/08/2025 4:20 PM EDT [employer] LAB BLOOD ORDERABLES Final Resul t [facility] [address] [phone] * Lactic Acid with reflex (SJ) (02/08/2025 4:00 PM EDT) Lactic Acid Level (mmol/L) 1.7 0.5 - 2.2 mmol/L 02/08/2025 4:39 PM EDT [facility] Blood Venipuncture / Unknown 02/08/2025 4:00 PM EDT 02/08/2025 4:20 PM EDT us Yuri Ocampo DO LAB BLOOD ORDERABLES Final Resul t Performing Organization Address [facility] de Phone Number [facility] [address] [phone] * Blood Culture (02/08/2025 4:00 PM EDT) Result No growth in 5 days 02/13/2025 5:00 PM EDT [facility] Blood Venipuncture / Unknown 02/08/2025 4:00 PM EDT 02/08/2025 4:20 PM EDT Narrative [facility] - 02/13/2025 5:00 PM EDT Blood volume is not within specification. May compromise patient blood culture results. us Yuri Ocampo DO MICROBIOLOGY - GENERAL ORDERABLE S Final Result Performing Organization Address [facility] Co de Phone Number [facility] [address] [phone] * (ABNORMAL) Basic Metabolic Panel (02/08/2025 4:00 PM EDT) Sodium 142 136 - 145 meq/L 02/08/2025 4:39 PM EDT [facility] Potassium 3.8 3.4 - 5.1 meq/L 02/08/2025 4:39 PM EDT [facility] CO2 30(H) 22 - 29 meq/L 02/08/2025 4:39 PM EDT [facility] Chloride 99 98 - 112 meq/L 02/08/2025 4:39 PM EDT [facility] Glucose 155(H) 74 - 100 mg/dL 02/08/2025 4:39 PM EDT [facility] BUN 21.5(H) 9.8 - 20.1 mg/dL 02/08/2025 4:39 PM EDT [facility] Creatinine 3.62(H) 0.57 - 1.11 mg/dL 02/08/2025 4:39 PM EDT [facility] BUN/Creatinine 6(L) 8 - 20 02/08/2025 4:39 PM EDT [facility] Calcium 9.0 8.4 - 10.2 mg/dL 02/08/2025 4:39 PM EDT [facility] Anion Gap 17(H) 4 - 12 02/08/2025 4:39 PM EDT [facility] eGFR (mL/min/1.73m2) 14(L) >=60 mL/min/1.7 3m2 02/08/2025 4:39 PM EDT [facility] Osmolality Calc 289.4 mOsm/kg 4:39 PM EDT [facility] Blood Venipuncture / Unknown 02/08/2025 4:00 PM EDT 02/08/2025 4:20 PM EDT Narrative [facility] - 02/08/2025 4:39 PM EDT Specimen slightly hemolyzed us Yuri Ocampo DO LAB BLOOD ORDERABLES Final Resul t [facility] [address] [place] [address], [facility] [place] [phone] * (ABNORMAL) CBC with Auto Diff (02/08/2025 4:00 PM EDT) WBC 8.9 4.0 - 10.0 K/ L 02/08/2025 4:24 PM EDT [facility] RBC 3.28(L) 3.93 - 5.22 M/ L 02/08/2025 4:24 PM EDT [facility] Hemoglobin 10.7(L) 11.2 - 15.7 GM/DL 02/08/2025 4:24 PM EDT [facility] Hematocrit 32.0(L) 34.1 - 44.9 % 02/08/2025 4:24 PM EDT [facility] MCV 98(H) 79 - 95 fL 02/08/2025 4:24 PM EDT [facility] MCH 32.6(H) 25.6 - 32.2 pg 02/08/2025 4:24 PM EDT [facility] MCHC 33.4 32.2 - 35.5 GM/DL 02/08/2025 4:24 PM EDT [facility] RDW 13.2 11.7 - 14.4 % 02/08/2025 4:24 PM EDT [facility] Platelets 320 140 - 375 K/CU MM 02/08/2025 4:24 PM EDT [facility] MPV 9.6 9.4 - 12.3 fL 02/08/2025 4:24 PM EDT [facility] % Neutros 65 34 - 71 % 02/08/2025 4:24 PM EDT [facility] % Lymphs 25 19 - 52 % 02/08/2025 4:24 PM EDT [facility] % Monos 6 5 - 13 % 02/08/2025 4:24 PM EDT [facility] % Eos 2 1 - 6 % 02/08/2025 4:24 PM EDT [facility] % Baso 1 0 - 1 % 02/08/2025 4:24 PM EDT [facility] NRBC Absolute <0.01 0 - 0.012 K/ul 02/08/2025 4:24 PM EDT [facility] # Neutros 5.86 1.56 - 6.13 K/ L 02/08/2025 4:24 PM EDT [facility] # Lymphs 2.24 1.18 - 3.74 K/ L 02/08/2025 4:24 PM EDT [facility] # Monos 0.57 0.24 - 0.86 K/ L 02/08/2025 4:24 PM EDT [facility] # Eos 0.14 0.04 - 0.36 K/ L 02/08/2025 4:24 PM EDT [facility] # Baso 0.05 0.01 - 0.08 K/ L 02/08/2025 4:24 PM EDT [facility] Immature Granulocytes-Re lative 0.90(H) 0.01 - 0.43 % 02/08/2025 4:24 PM EDT [facility] # IG 0.08(H) 0.00 - 0.03 K/uL 02/08/2025 4:24 PM EDT [facility] Blood Venipuncture / Unknown 02/08/2025 4:00 PM EDT 02/08/2025 4:20 PM EDT Narrative [facility] - 02/08/2025 4:24 PM EDT When [...] DO LAB BLOOD ORDERABLES Final Resul t [facility] [address] [phone] documented in this encounter Visit Diagnoses Diagnosis [...] Blood Sugar is less than 180 between [id number], DO NOT give corrective insulin unless otherwise [...] pharmacy when due - must stay in metalsmith apprentice bottle with desiccant until time of use [...] Blood Sugar is less than 180 between 0200-5745, DO NOT give corrective insulin unless otherwise [...] pharmacy when due - must stay in metalsmith apprentice bottle with desiccant until time of use [...] options ordered. 28 (See Alternative - Provider: Mak Vizcarra RN) 2158 (See Alternative - Provider: [...] Line 0113 (IVPB Stopped - Provider: Curtis Gibbons, BENNETT) promethazine (PHENERGAN) tablet 25 mg 25 [...] documented as of this encounter Care Teams Paleobotanist Relationship Specialty Start Date End Date Wally Yoo MD [address] [place] [address] PCP - General Family Medicine 01/11/25 documented as of this encounter
--- OUTSIDE RECORDS SUMMARY | 2025-03-16 14:33 | XMS_ITS | Encounter Summary ---
Author Organization [facility] ([place], [place], [place], [place]) Address [address] [place] [address] Care Team Providers Care Aircraft Machinist Helper Name Role Phone Wally Yoo MD Primary Care Provider [phone] Encounter Details Date Type Department Care Team [...] living situation today? I have a [facility] to live 02/09/2025 Think about the [...] [facility] a [facility] [place] [facility] No 02/09/2025 Do [...] documented as of this encounter Care Teams Aircraft Machinist Helper Relationship Specialty Start Date End Date Wally Yoo MD [address] [place] [address] PCP - General Family Medicine 01/11/25 documented as of this encounter
--- OUTSIDE RECORDS SUMMARY | 2025-03-16 14:34 | XMS_ITS | Clinical Summary ---
Author Organization [facility] Address [address] [place] [address] [address] [place] [phone] Phone Care Team Providers Care Precision Thread Grinder Operator Name Role Phone Unavailable Unavailable Conditions or Problems No information available. Medications No information available. Medications Administered No information available. Allergies, Adverse Reactions, Alerts No information available. Results No information available. Plan of Care No information available. Procedures No information available. Vital Signs No information available. Immunizations No information available. Advance Directives No information available.
--- OUTSIDE RECORDS SUMMARY | 2025-03-16 14:34 | XMS_ITS | Encounter Summary ---
Author Organization [employer] ([place], [place], [place], [place]) Address [address] [place] [address] Care Team Providers Care Rib Stiffener And Heel Dipper Name Role Phone Edgar Nguyen MD Primary Care Provider [phone] Wally Yoo MD Primary Care Provider [phone] Reason for Referral * Interventional Radiology (Routine) - Closed Specialty Diagnoses / Procedures Referred By Contac t Referred To Contact Radiology Diagnoses Acute renal failure, unspecified acute renal failure type (HCC) Procedures IR CENTRAL VENOUS Dunia Pena NP Referral ID Status Reason Start Date Expiration Date Visits Re quested Visits Authorized [id number] Closed 10/08/2022 04/06/2023 1 1 Encounter Details Date Type Department Care Team (Late st Contact Info) Description 10/08/2022 Outside Orders [facility] Central Scheduling [address] [place] [id number] Dunia Pena NP Acute renal [...] documented as of this encounter Care Teams Rib Stiffener And Heel Dipper Relationship Specialty Start Date End Date Edgar Nguyen MD [address] [place] [id number] PCP - General Family Medicine 10/10/22 03/08/23 Wally Yoo MD [address] [place] [id number] PCP - General Family Medicine 01/11/25 documented as of this encounter
--- OUTSIDE RECORDS SUMMARY | 2025-03-16 14:34 | XMS_ITS | Referral Summary ---
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 ([place], [place]) 4 Interventional Care Unit 1 [place] [phone] Yuri Ocampo DO Elliott, Jayden, PA-C Lewis, Paige, MD Zohary, Yasser, MD Surgical site infection (Primary Dx) Discharge Disposition: Correction Care 02/08/2025 Travel 01/11/2025 11:35 AM EDT - 01/14/2025 4:17 PM EDT Hospital Encounter [facility] ([place], [place]) 3B Unit [address] [place] [address] Benedict Fleming MD Elliott, Jayden, PA-C Siddiqi, Ismaeel, DO Elbita, Omar, MD Ali, Amjad, MD Generalized weakness (Primary Dx); Primary hypertension; Nausea and vomiting, unspecified vomiting type; Chronic renal failure, unspecified CKD stage Discharge Disposition: Home or Self Care 01/11/2025 Travel 01/10/2025 Travel 01/10/2025 1:51 PM EDT Anesthesia Event [facility] ([place], [place]) Operating Room [address] [place] [address] Pro Barr MD Littles, Joel T, MD 01/10/2025 10:59 AM EDT - 01/10/2025 12:[address] [facility] ([place], [place]) Operating Room 1 [place] [address] Baljinder Sloan MD LEFT IJ tunneled catheter exchanged RIGHT brachiocephalic arteriovenous fistula creation 01/10/2025 12:29 PM EDT - 01/10/2025 5:38 PM EDT Hospital Encounter [facility] ([place], [place]) Operating Room 1 [place] [address] Baljinder Sloan MD Discharge Disposition: Home or Self Care from Last 3 Months Allergies Active Allergy Reactions Criticality Noted Date Comments Sulfa (Sulfonamide Antibiotics) 10/10/2022 Oxycodone-Acetaminophen Nausea Only 10/10/2022 Pt states she can tolerate hydrocodone (verified 12/19/22) Medications amLODIPine (NORVASC) 10 MG tablet Take 1 tablet (10 mg total) by mouth daily. 3 Active aspirin 81 MG EC tablet Take 1 tablet (81 mg total) by mouth daily. 3 Active atorvastatin (LIPITOR) 40 MG tablet Take 1 tablet (40 mg total) by mouth nightly. 3 Active carvediloL (COREG) 12.5 MG tablet Take 1 tablet (12.5 mg total) by mouth 2 (two) times daily. 3 Active isosorbide mononitrate (IMDUR) 30 MG 24 [...] tablet (1,500 mg total) by mouth daily. 4 Active prasugreL (EFFIENT) 10 mg tab tablet Take 1 tablet (10 mg total) by mouth daily. 4 Active epoetin gia (Procrit) 20,000 unit/2 mL [...] Max Daily Amount: 300 mg 3 capsule 5 02/17/20 25 vancomycin (VANCOCIN) 1000 mg in sodium chloride 0.9 % (NS) 250 mL ADD EASE IVPB Infuse 1,000 mg into a venous catheter 3 (three) times a week after dialysis MON/WED/FRI for 14 days. 5 02/28/20 25 Active Problems Problem Noted Date Diagnosed Date [...] unspecified 10/06/2022 Iron deficiency anemia, unspecified 10/06/2022 jail (current) use of insulin 10/06/2022 Morbid (severe) [...] your living situation today? I have a [facility] place to live 02/09/2025 Think about the [...] Do you speak a language other than [place] at [facility]? No 02/09/2025 Do you want help with [...] on file Medical Devices Implanted Type Area Supervisor [employer] Device Identifier Shelf Expiration Date Model / Serial / Lot Scr + Lt Silvina 5.5 Ti - 75mm 5 - [id number] Implanted:Qty : 1 on 08/10/[address] [facility] IMPLANTS Left: Leg SYNTHES TRAUMA . 5 / 5 / Plt Femur 4 Hole Left 1 - [id number] Implanted:Qty : 1 on 08/10/[address] [facility] IMPLANTS Left: Leg SYNTHES TRAUMA 120.55 1 / .55 1 / Scr Crtx D/L St 4.5x52 Ti Ns 414.852 - [id number] Implanted:Qty : 1 on 08/10/[address] [facility] IMPLANTS Left: Leg SYNTHES TRAUMA 414.852 / 414.852 / Scr Kirstin Hd St 5.4lqj27tf Ti 413.370 - [id number] Implanted:Qty : 1 on 08/10/[address] [facility] IMPLANTS Left: Leg SYNTHES TRAUMA 413.370 / 413.370 / Scr Kirstin Head 5.0rre20ls Ti 413.380 - [id number] Implanted:Qty : 1 on 08/10/[address] [facility] IMPLANTS Left: Leg SYNTHES TRAUMA 413.380 / 413.380 / Scr Kirstin Head 5.8tdi53fz Ti 413.365 - [id number] Implanted:Qty : 1 on 08/10/[address] [facility] IMPLANTS Left: Leg SYNTHES TRAUMA 413.365 / 413.365 / Scr Kirstin Head 5.1und09lj Ti 413.350 - [id number] Implanted:Qty : 2 on 08/10/[address] [facility] IMPLANTS Left: Leg SYNTHES TRAUMA 413.350 / 413.350 / Scr Lck 5.0x46mm Ti 413.346 - [id number] Implanted:Qty : 1 on 08/10/[address] [facility] IMPLANTS Left: Leg SYNTHES TRAUMA 413.346 / 413.346 / Washer For 5.5 Silvina Scr + 5pk 04.353.906.05 - [id number] Implanted:Qty : 2 on 08/10/[address] [facility] IMPLANTS Left: Leg SYNTHES TRAUMA 04.353.90 6.05 / 04.353.90 6.05 / Scr + Lt Silvina 5.5 Ti - 65mm 04.354.665 - [id number] Implanted:Qty : 1 on 08/10/[address] [facility] IMPLANTS Left: Leg SYNTHES TRAUMA 04.354.66 5 / 04.354.66 5 / Grft Vasc Collagen [id number] Ag616 - [id number] Implanted:Qty : 1 on 01/19/2024 by Baljinder Sloan MD at [facility] IMPLANTS Left: Arm Upper ARTEGRAFT [id number] 02/28/2024 AG616 / 0000 / [id number] Explanted Type Area Supervisor [employer] Device Identifier Shelf Expiration Date Model / Serial / Lot Scr Kirstin Hd Slf Tap 5.0x90mm Ti 413.390 - [id number] Explanted:Qty: 1 on 08/10/[address] [facility] IMPLANTS Left: Leg SYNTHES TRAUMA 413.390 / 413.390 / Scr + Lt Silvina 5.5 Ti - 55mm 04.354.655 - [id number] Explanted:Qty: 1 on 08/10/[address] [facility] IMPLANTS Left: Leg SYNTHES TRAUMA 04.354.655 / 04.354.655 / Scr Kirstin Head 5.8dah59xm Ti 413.355 - [id number] Explanted:Qty: 1 on 08/10/[address] [facility] IMPLANTS Left: Leg SYNTHES TRAUMA 413.355 / [...] prosthetic devices, implants and grafts, initial encounter ([facility]) Case Notes IN 1000 , [...] of32 resultswithin the time period is included. Pathologist [facility] POC-GLUCOSE 208(H) 70 - 110 mg/dL 02/13/2025 6:49 PM EDT [facility] Comment: In the event of poor peripheral blood flow, venous or arterial blood should be used due to the potential of erroneous results. Notified Nurse RBV Brood Hatchery Manager [phone] 02/13/2025 6:49 PM EDT [facility] Blood WHOLE BLOOD / Unknown 02/13/2025 6:48 PM EDT 02/13/2025 6:49 PM EDT Narrative [facility] - 02/13/2025 6:49 PM EDT Brood Hatchery Manager ID is - [id number] us Briana Araiza MD POINT OF CARE TEST ORDERABLES Fi nal Result [facility] [address] [place] [id number] [phone] * (ABNORMAL) CBC with automated diff (02/13/2025 5:08 AM EDT) Only the most recent of7 resultswithin the time period is included. WBC 8.1 4.0 - 10.0 K/ L 02/13/2025 5:59 AM EDT [facility] RBC 3.34(L) 3.93 - 5.22 M/ L 02/13/2025 5:59 AM EDT [facility] Hemoglobin 10.7(L) 11.2 - 15.7 GM/DL 02/13/2025 5:59 AM EDT [facility] Hematocrit 32.4(L) 34.1 - 44.9 % 02/13/2025 5:59 AM EDT [facility] MCV 97(H) 79 - 95 fL 02/13/2025 5:59 AM EDT [facility] MCH 32.0 25.6 - 32.2 pg 02/13/2025 5:59 AM EDT [facility] MCHC 33.0 32.2 - 35.5 GM/DL 02/13/2025 5:59 AM EDT [facility] RDW 12.9 11.7 - 14.4 % 02/13/2025 5:59 AM EDT [facility] Platelets 241 140 - 375 K/CU MM 02/13/2025 5:59 AM EDT [facility] MPV 9.7 9.4 - 12.3 fL 02/13/2025 5:59 AM EDT [facility] % Neutros 60 34 - 71 % 02/13/2025 5:59 AM EDT [facility] % Lymphs 29 19 - 52 % 02/13/2025 5:59 AM EDT [facility] % Monos 9 5 - 13 % 02/13/2025 5:59 AM EDT [facility] % Eos 2 1 - 6 % 02/13/2025 5:59 AM EDT [facility] % Baso 1 0 - 1 % 02/13/2025 5:59 AM EDT [facility] NRBC Absolute <0.01 0 - 0.012 K/ul 02/13/2025 5:59 AM EDT [facility] # Neutros 4.82 1.56 - 6.13 K/ L 02/13/2025 5:59 AM EDT [facility] # Lymphs 2.32 1.18 - 3.74 K/ L 02/13/2025 5:59 AM EDT [facility] # Monos 0.70 0.24 - 0.86 K/ L 02/13/2025 5:59 AM EDT [facility] # Eos 0.13 0.04 - 0.36 K/ L 02/13/2025 5:59 AM EDT [facility] # Baso 0.04 0.01 - 0.08 K/ L 02/13/2025 5:59 AM EDT [facility] Immature Granulocytes-Re lative 0.60(H) 0.01 - 0.43 % 02/13/2025 5:59 AM EDT [facility] # IG 0.05(H) 0.00 - 0.03 K/uL 02/13/2025 5:59 AM EDT [facility] Blood Venipuncture / Unknown 02/13/2025 5:08 AM EDT 02/13/2025 5:54 AM EDT Narrative [facility] - 02/13/2025 5:59 AM EDT [...] MD LAB BLOOD ORDERABLES Final Resul t [facility] [address] [phone] * Hepatitis B surface antigen (02/13/2025 5:08 AM EDT) Pathologist [facility] Hepatitis B surface antigen Nonreactive Nonreactive 02/13/2025 7:19 AM EDT [facility] Blood Venipuncture / Unknown 02/13/2025 5:08 AM EDT 02/13/2025 5:46 AM EDT Nataliya Cain MD LAB BLOOD ORDERABLES Final Resul t Performing Organization Address City/[facility]/ZIP Co de Phone Number [facility] [address] [phone] * Vancomycin level, random (02/13/2025 5:08 AM EDT) [facility] Vancomycin Rm 18.4 0.0 - 40.0 ug/mL 02/13/2025 6:19 AM EDT [facility] Comment: Therapeutic peak: >20 to 40 ug/mL Trough levels: 10 to 20 ug/mL Toxicity: > 80 ug/mL Blood Venipuncture / Unknown 02/13/2025 5:08 AM EDT 02/13/2025 5:46 AM EDT us Olegario Varghese PA-C LAB BLOOD ORDERABLES Final R esult Performing Organization Address City/[facility] Co de Phone Number [facility] [address] [phone] * (ABNORMAL) Basic Metabolic Panel (02/13/2025 5:08 AM EDT) Only the most recent of3 resultswithin the time period is included. [facility] Sodium 135(L) 136 - 145 meq/L 02/13/2025 6:19 AM EDT [facility] Potassium 4.3 3.4 - 5.1 meq/L 02/13/2025 6:19 AM EDT [facility] CO2 25 22 - 29 meq/L 02/13/2025 6:19 AM EDT [facility] Chloride 97(L) 98 - 112 meq/L 02/13/2025 6:19 AM EDT [facility] Glucose 276(H) 74 - 100 mg/dL 02/13/2025 6:19 AM EDT [facility] BUN 35.2(H) 9.8 - 20.1 mg/dL 02/13/2025 6:19 AM EDT [facility] Creatinine 6.77(H) 0.57 - 1.11 mg/dL 02/13/2025 6:19 AM EDT [facility] BUN/Creatinine 5(L) 8 - 20 02/13/2025 6:19 AM EDT [facility] Calcium 7.3(L) 8.4 - 10.2 mg/dL 02/13/2025 6:19 AM EDT [facility] Anion Gap 17(H) 4 - 12 02/13/2025 6:19 AM EDT [facility] eGFR (mL/min/1.73m2) 7(L) >=60 mL/min/1.7 3m2 02/13/2025 6:19 AM EDT [facility] Osmolality Calc 288.0 mOsm/kg 6:19 AM EDT [facility] Blood Venipuncture / Unknown 02/13/2025 5:08 AM EDT 02/13/2025 5:46 AM EDT us Briana Araiza MD LAB BLOOD ORDERABLES Final Resul t [facility] [address] [phone] * (ABNORMAL) C-Reactive Protein (02/11/2025 5:31 AM EDT) Only the most recent of2 resultswithin the time period is included. CRP 11.0(H) 0.0 - 5.0 mg/L 02/11/2025 6:27 AM EDT [facility] Blood Venipuncture / Unknown 02/11/2025 5:31 AM EDT 02/11/2025 5:52 AM EDT us Briana Araiza MD LAB BLOOD ORDERABLES Final Resul t [facility] [address] [place] [id number] [phone] * Ultrasound hemodialysis access (02/09/2025 9:30 AM EDT) Anatomical Region Laterality Modality Vascular, Abdomen Vascular Ultra sound 02/09/2025 8:4 7 AM EDT Narrative 02/09/2025 3:06 PM EDT Vascular Upper Extremities Arterial Duplex Procedure Demographics Patient Name YANG Norris Age 54 Patient Number [id number] Gender Female Race Unknown Ethnicity Corporate ID [id number] Height 66 Date of 1970 Weight 268 Accession Number [id number] BSA 2.27 m^2 Room Number 400 BMI 43.26 kg/m^2 Referring Physician ERNST AVILA Physician Liquid Chlorine Operator OLIVIA Blount Procedure Type of Study: Extremities [...] in mm Signature Procedure Note Noman Byrne, DO - 02/09/2025 Vascular Upper Extremities Arterial Duplex Procedure Demographics Patient Name YANG Norris Age 54 Patient Number [id number] Gender Female Race Unknown Ethnicity Corporate ID [id number] Height 66 Date of 1970 Weight 268 Accession Number [id number] BSA 2.27 m^2 Room Number 400 BMI 43.26kg/m^2 Referring Physician ERNST DÍAZ Interpreting ANNEMARIE AVILA Physician Liquid Chlorine Operator OLIVIA Blount Procedure Type of Study: Extremities [...] 136 - 145 meq/L 02/09/2025 6:09 AM T [facility] Potassium 4.0 3.4 - 5.1 meq/L 02/09/2025 6:09 AM [facility] Chloride 100 98 - 112 meq/L 02/09/2025 6:09 AM [facility] CO2 31(H) 22 - 29 meq/L 02/09/2025 6:09 AM [facility] Calcium 9.0 8.4 - 10.2 mg/dL 02/09/2025 6:09 AM [facility] Glucose 197(H) 74 - 100 mg/dL 02/09/2025 6:09 AM T [facility] BUN 29.8(H) 9.8 - 20.1 mg/dL 02/09/2025 6:09 AM [facility] Creatinine 4.72(H) 0.57 - 1.11 mg/dL 02/09/2025 6:09 AM [facility] BUN/Creatinine 6(L) 8 - 20 02/09/2025 6:09 AM [facility] eGFR (mL/min/1.73m2) 10(L) >=60 mL/min/1. 73m2 02/09/2025 6:09 AM EDT [facility] Albumin 3.0(L) 3.5 - 5.0 g/dL 02/09/2025 6:09 AM EDT [facility] Alkaline Phosphatase 175(H) 40 - 150 U/L 02/09/2025 6:09 AM EDT [facility] ALT 35(H) <=34 U/L 02/09/2025 6:09 AM EDT [facility] Comment: ALT2 reagent used for testing does not contain P5P supplementation and therefore may miss ALT elevations in patients with B6 deficiency. This population may be as high as 10% in the [place], with risk factors including malabsorption, drug interactions, and alcoholic hepatitis. AST 28 11 - 34 U/L 02/09/2025 6:09 AM EDT [facility] Comment: AST2 reagent used for testing does not contain P5P supplementation and therefore may miss AST elevations in patients with B6 deficiency. This population may be as high as 10% in the [place], with risk factors including malabsorption, drug interactions, and alcoholic hepatitis. Total Bilirubin 0.4 0.2 - 1.2 mg/dL 02/09/2025 6:09 AM EDT [facility] Protein, Total 6.6 6.4 - 8.3 g/dL 02/09/2025 6:09 AM EDT [facility] Globulin 3.6 2.5 - 4.1 g/dL 02/09/2025 6:09 AM T [facility] Anion Gap 15(H) 4 - 12 02/09/2025 6:09 AM EDT [facility] A/G Ratio 0.8 0.7 - 1.9 02/09/2025 6:09 AM T [facility] Osmolality Calc 294.7 mOsm/kg 6:09 AM [facility] Blood Venipuncture / Unknown 02/09/2025 4:41 AM EDT 02/09/2025 5:46 AM EDT Olegario Varghese PA-C LAB BLOOD ORDERABLES Final R esult [facility] [address] [place] [address], [facility] [phone] * (ABNORMAL) Wound Culture + Gram Stain (02/08/2025 11:19 PM EDT) Result Moderate Growth Methicillin resistant Staphylococcus aureus(A) 02/12/2025 8:05 AM EDT [facility] Comment:Resistant organism r equires isolation protocol. Result Moderate Growth Staphylococcus epidermidis(A) 02/12/2025 8:05 AM EDT [facility] Gram Stain Result No cells seen 02/12/2025 8:05 AM EDT [facility] Gram Stain Result Few gram positive cocci in pairs and clusters 02/12/2025 8:05 AM EDT [facility] Gram Stain Result Few gram positive cocci 02/12/2025 8:05 AM EDT [facility] Wound RIGHT UPPER ARM STRUCTURE [...] MICROBIOLOGY - GENERAL ORDER EAN Final Result [facility] [address] [phone] * CT upper extremity without contrast right [...] Hold for add-ons. 02/08/2025 6:01 PM EDT [facility] Comment:Auto resulted. Blood Venipuncture / Unknown 02/08/2025 4:17 PM EDT 02/08/2025 4:20 PM EDT Loco Cortes MD LAB BLOOD ORDERABLES Final Res ult Performing Organization Address City/[facility]/ZIP Co de Phone Number [facility] [address] [phone] * Blue Top Extra Tubes (02/08/2025 4:17 PM EDT) HOLD SPECIMEN ( - BKR) Hold for add-ons. 02/08/2025 6:01 PM EDT [facility] Comment:Auto resulted. Blood Venipuncture / Unknown 02/08/2025 4:17 PM EDT 02/08/2025 4:20 PM EDT Loco Cortes MD LAB BLOOD ORDERABLES Final Res ult [facility] [address] [phone] * Blood Culture (02/08/2025 4:17 PM EDT) Only the most recent of4 resultswithin the time period is included. Result No growth in 5 days 02/13/2025 5:00 PM EDT [facility] Blood ENTIRE RIGHT UPPER ARM / Unknown Venipuncture / Unknown 02/08/2025 4:17 PM EDT 02/08/2025 4:20 PM EDT Narrative [facility] - 02/13/2025 5:00 PM EDT Blood volume is not within specification. May compromise patient blood culture results. Yuri Ocampo DO MICROBIOLOGY - GENERAL ORDERABLE S Final Result Performing Organization Address [facility] de Phone Number [facility] [address] [place] [address], [facility] [phone] * Lactic Acid with reflex (SJ) (02/08/2025 4:00 PM EDT) Only the most recent of2 resultswithin the time period is included. Lactic Acid Level (mmol/L) 1.7 0.5 - 2.2 mmol/L 02/08/2025 4:39 PM EDT [facility] Blood Venipuncture / Unknown 02/08/2025 4:00 PM EDT 02/08/2025 4:20 PM EDT [employer] LAB BLOOD ORDERABLES Final Resul t Performing Organization Address [facility] de Phone Number [facility] [address] [phone] * (ABNORMAL) Sedimentation rate (02/08/2025 4:00 PM EDT) Sed Rate 35(H) 0 - 30 mm/HR 02/08/2025 4:43 PM EDT [facility] Blood Venipuncture / Unknown 02/08/2025 4:00 PM EDT 02/08/2025 4:20 PM EDT [employer] LAB BLOOD ORDERABLES Final Resul t Performing Organization Address [facility] Co de Phone Number [facility] [address] [place] [address], [facility] [phone] * Magnesium (01/14/2025 6:14 AM EDT) Only the most recent of3 resultswithin the time period is included. Magnesium 1.8 1.6 - 2.6 mg/dL 01/14/2025 6:58 AM EDT [facility] Blood Venipuncture / Unknown 01/14/2025 6:14 AM EDT 01/14/2025 6:27 AM EDT us Gabino Esteban MD LAB BLOOD ORDERABLES Final Resul t Performing Organization Address [facility] Co de Phone Number [facility] [address] [phone] * Phosphorus (01/13/2025 9:53 AM EDT) Phosphorus 3.1 2.5 - 4.5 mg/dL 01/13/2025 10:39 AM EDT [facility] Blood Venipuncture / Unknown 01/13/2025 9:53 AM EDT 01/13/2025 10:11 AM EDT us Gabino Esteban MD LAB BLOOD ORDERABLES Final Resul t Performing Organization Address [facility] Co de Phone Number [facility] [address] [phone] * CT ABDOMEN/PELVIS WITHOUT IV CONTRAST Standard [...] ATRIAL RATE (MCT) 106 BPM GE MUSE HI Interval 164 ms GE MUSE QRS-INTERVAL (MSEC) 84 ms GE MUSE QT Interval 332 ms GE MUSE QTC Interval 432 ms GE MUSE P Hitchcock 54 degrees GE MUSE R AXIS (MCT) 20 degrees GE MUSE T Wave Hitchcock 44 degrees GE MUSE [place] Diagnosis Age and gender specific ECG analysis [...] DIAGNOSTIC IMAGING MASHA ARZATE Final Result * COVID ANTIGEN (01/11/2025 11:48 AM EDT) SARS COVID ANTIGEN Negative Negative, Invalid 01/11/2025 12:40 PM EDT [facility] Nasal Swab (Nasal) 01/11/2025 11:48 AM EDT 01/11/2025 11:56 AM EDT [facility] - 01/11/2025 12:40 PM EDT The [...] infection. Benedict Fleming MD MICROBIOLOGY - GENERAL PROVOJyoti [facility] Final Result Performing Organization Address City/State/[facility] Co de Phone Number [facility] [address] [phone] * High Sensitivity Troponin I (01/11/2025 11:48 AM EDT) [facility] Troponin I High Sensitivity (pg/mL) <5.0 <=14 pg/mL 01/11/2025 12:32 PM EDT [facility] Blood Venipuncture / Unknown 01/11/2025 11:48 AM EDT 01/11/2025 11:56 AM EDT [facility] - 01/11/2025 12:32 PM EDT Applicable to [facility] only. Effective October 25 the lab will begin using a new chemistry analyzer. HsTroponin methodology, reference ranges and critical values have changed. us Benedict Fleming MD LAB BLOOD ORDERABLES Final Result [facility] [address] [place] [address], [facility] [phone] * EKG-SCANNED (01/11/2025) Narrative 01/11/2025 Ordered by [...] supine Prep: ChloraPrep Patient monitoring: heart rate, radiation monitor and continuous pulse ox Block type: [...] - 146 mmol/L 01/10/2025 1:23 PM EDT [facility] POC Potassium 4.8 3.5 - 4.9 mmol/L 01/10/2025 1:23 PM EDT [facility] POC Chloride 97(L) 98 - 109 mmol/L 01/10/2025 1:23 PM EDT [facility] POC Glucose 138(H) 70 - 105 mg/dL 01/10/2025 1:23 PM EDT [facility] POC BUN 47(H) 8 - 26 mg/dL 01/10/2025 1:23 PM EDT [facility] POC Anion Gap 14 10 - 20 mmol/L 01/10/2025 1:23 PM EDT [facility] POC IONIZED CALCIUM BENJI 1.18 1.12 - 1.32 mmol/L 01/10/2025 1:23 PM EDT [facility] POC CO2 TOTAL BENJI 36(H) 24 - 29 mmol/L 01/10/2025 1:23 PM EDT [facility] POC-Creatinine 6.3(H) 0.6 - 1.3 mg/dL 01/10/2025 1:23 PM EDT [facility] POC-EGFR 7 mL/min/1.7 3M2 01/10/2025 1:23 PM EDT [facility] Comment:Proceed with contras t if eGFR > 45 ml/min/1.73 when performed on the NovaSTAT strip Creatinine meter. POC HEMATOCRIT BENJI 32(L) 38 - 51 %PCV 01/10/2025 1:23 PM EDT [facility] POC HEMOGLOBIN BENJI 10.9(L) 12.0 - 17.0 g/dL 01/10/2025 1:23 PM EDT [facility] Blood 01/10/2025 1:13 PM EDT 01/10/2025 1:23 PM EDT Narrative [facility] - 01/10/2025 1:23 PM EDT [employer] ID is - [id number] us Baljinder Sloan MD POINT OF CARE TEST ORDERABLES Fi nal Result [facility] [address] [phone] * (ABNORMAL) Lipid panel (07/19/2024 9:23 AM EST) Triglycerides 216 0 - 249 mg/dL 07/19/2024 11:00 AM EST [facility] Cholesterol 99 0 - 199 mg/dL 07/19/2024 11:00 AM EST [facility] Comment: 200 to 239 mg/dL = Moderate (borderline) >239 mg/dL = High HDL Cholesterol 32(L) >=40 mg/dL 07/19/2024 11:00 AM EST [facility] Comment: >=60 mg/dL = Desirable <40 mg/dL = Increased Risk All other components are listed individually or are calculations VLDL Cholesterol 43.2(H) 5 - 40 mg/dL 07/19/2024 11:00 AM EST [facility] Cholesterol/HDL ratio 3.1 0.0 - 3.2 07/19/2024 11:00 AM [facility] LDl/HDL Ratio 1 0 - 4 07/19/2024 11:00 AM [facility] RISK COMP 3 07/19/2024 11:00 AM [facility] LDL Cholesterol, Calculated 24 0 - 99 mg/dL 07/19/2024 11:00 AM EST [facility] Blood Venipuncture / Unknown 07/19/2024 9:23 AM EST 07/19/2024 10:14 AM EST us Marycruz Lam [facility] BLOOD ORDERABLES Fi nal Result [facility] [address] [id number] [phone] from Last 3 Months or Most Recently Relevant to Health Maintenance Additional Health Concerns Infection Onset Date 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) Comment:02/11/2025 07/23/2024 07/23/2024 Insurance [id number] A B Advance Directives For more information, please contact: [phone] Documents on File Type Date Recorded Patient Legal Writing Professor Expl anation Advance Directives and Livin g [...] ACLS medications, or cardioversion as indicated. Call [employer] * Full Code Date Activated Date Inactivated Comments 07/19/2024 5:49 AM 07/19/2024 9:51 AM Healthcare Agents on File Name Relationship Healthcare Agent [facility] Communication Annette Burkett Daughter Healthcare Decision-Maker Elizabeth Anderson Friend [employer] Alternate Healthcare Decision-Maker Care Teams [employer] Relationship Specialty Start Date End Date Wally Yoo MD [address] [place] [id number] PCP - General Family Medicine 01/11/25
--- OUTSIDE RECORDS SUMMARY | 2025-03-16 14:35 | XMS_ITS | Clinical Summary ---
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 10/06/2022 Morbid (severe) [...] - 02/13/2025 8:47 PM EDT Hospital Encounter [facility] 4 Interventional Care Unit 1 [place] [address] Yuri Ocampo DO Elliott, Jayden, PA-C Lewis, Paige, MD Zohary, Yasser, MD Surgical site infection (Primary Dx) Discharge Disposition: Retirement Care 02/08/2025 Travel 01/11/2025 11:35 AM EDT - 01/14/2025 4:17 PM EDT Hospital Encounter [facility] 3B Unit 1 [place] [address] Benedict Fleming MD Elliott, Jayden, PA-C Siddiqi, Ismaeel, DO Elbita, Omar, MD Ali, Amjad, MD Generalized weakness (Primary Dx); Primary hypertension; Nausea and vomiting, unspecified vomiting type; Chronic renal failure, unspecified CKD stage Discharge Disposition: Home or Self Care 01/11/2025 Travel 01/10/2025 1:51 PM EDT Anesthesia Event [facility] Operating Room 1 [place] [address] Pro Barr MD Littles, Joel T, MD 01/10/2025 12:29 PM EDT - 01/10/2025 5:38 PM EDT Hospital Encounter [facility] Operating Room 1 [place] [address] Baljinder Sloan MD Discharge Disposition: Home or Self Care 01/10/2025 10:59 AM EDT - 01/10/2025 12:29 PM EDT Surgery [facility] Operating Room 1 [place] [address] Baljinder Sloan MD LEFT IJ tunneled catheter [...] your living situation today? I have a [facility] place to live 02/09/2025 Think about [...] Do you speak a language other than Togolese at [facility]? No 02/09/2025 Do you want [...] 10/18/2022, 2015 Medical Devices Implanted Type Area Machine Accountant Device Identifier Shelf Expiration Date Model / Serial / Lot Scr + Lt Silvina 5.5 Ti - 75mm - S0.5 Implanted:Qty : 1 on 08/10/2023 at [facility] IMPLANTS Left: Leg SYNTHES TRAUMA 5 / 5 / Plt Femur 4 Hole Left 551 - [id number] Implanted:Qty : 1 on 08/10/2023 at [facility] IMPLANTS Left: Leg SYNTHES TRAUMA 04.120.55 1 / 04.120.55 1 / Scr Crtx D/L St 4.5x52 Ti Ns 414.852 - [id number] Implanted:Qty : 1 on 08/10/2023 at [facility] IMPLANTS Left: Leg SYNTHES TRAUMA 414.852 / 414.852 / Scr Kirstin Hd St 5.2bqd46mt Ti 413.370 - [id number] Implanted:Qty : 1 on 08/10/2023 at [facility] IMPLANTS Left: Leg SYNTHES TRAUMA 413.370 / 413.370 / Scr Kirstin Head [id number] Ti 413.380 - [id number] Implanted:Qty : 1 on 08/10/2023 at [facility] IMPLANTS Left: Leg SYNTHES TRAUMA 413.380 / 413.380 / Scr Kirstin Head [id number] Ti 413.365 - [id number] Implanted:Qty : 1 on 08/10/2023 at [facility] IMPLANTS Left: Leg SYNTHES TRAUMA 413.365 / 413.365 / Scr Kirstin Head 5.0otp20oi Ti 413.350 - [id number] Implanted:Qty : 2 on 08/10/2023 at [facility] IMPLANTS Left: Leg SYNTHES TRAUMA 413.350 / 413.350 / Scr Lck 5.0x46mm Ti 413.346 - [id number] Implanted:Qty : 1 on 08/10/2023 at [facility] IMPLANTS Left: Leg SYNTHES TRAUMA 413.346 / 413.346 / Washer For 5.5 Silvina Scr + 5pk 04.353.906.05 - [id number] Implanted:Qty : 2 on 08/10/2023 at [facility] IMPLANTS Left: Leg SYNTHES TRAUMA 04.353.90 6.05 / 04.353.90 6.05 / Scr + Lt Silvina 5.5 Ti - 65mm 04.354.665 - [id number] Implanted:Qty : 1 on 08/10/2023 at [facility] IMPLANTS Left: Leg SYNTHES TRAUMA 04.354.66 5 / 04.354.66 5 / Grft Vasc Collagen 5jpp29rd Ag616 - [id number] Implanted:Qty : 1 on 01/19/2024 by Baljinder Sloan MD at [facility] IMPLANTS Left: Arm Upper ARTEGRAFT [id number] 02/28/2024 AG616 / 0000 / [id number] Explanted Type Area Machine Accountant Device Identifier Shelf Expiration Date Model / Serial / Lot Scr Kirstin Hd Slf Tap 5.0x90mm Ti 413.390 - [id number] Explanted:Qty: 1 on 08/10/2023 at [facility] IMPLANTS Left: Leg SYNTHES TRAUMA 413.390 / 413.390 / Scr + Lt Silvina 5.5 Ti - 55mm 04.354.655 - [id number] Explanted:Qty: 1 on 08/10/2023 at [facility] IMPLANTS Left: Leg SYNTHES TRAUMA 04.354.655 / 04.354.655 / Scr Kirstin Head 5.9lqz16mk Ti 413.355 - [id number] Explanted:Qty: 1 on 08/10/2023 at [facility] IMPLANTS Left: Leg SYNTHES TRAUMA 413.355 / [...] GLUCOSE POC Routine 01/10/2025 4:39 PM EDT [place] ARTERIOVENOUS ANASTOMOSIS OPEN DIRECT [...] 110 mg/dL 02/13/2025 6:[address] [facility] Comment: In the event of poor peripheral blood flow, venous or arterial blood should be used due to the potential of erroneous results. Notified Nurse RBV Drum Sealer [phone] 02/13/2025 6:[address] [facility] Blood WHOLE BLOOD / Unknown 02/13/2025 6:48 PM EDT 02/13/2025 6:[address] [facility] - 02/13/2025 6:49 PM EDT Drum Sealer ID is - [id number] us Briana Araiza MD POINT OF CARE TEST ORDERABLES Fi nal Result [facility] [address] [phone] * (ABNORMAL) CBC with automated diff (02/13/2025 5:08 AM EDT) Only the most recent of7 resultswithin the time period is included. WBC 8.1 4.0 - 10.0 K/ L 02/13/2025 5:[address] [facility] RBC 3.34(L) 3.93 - 5.22 M/ L 02/13/2025 5:[address] [facility] Hemoglobin 10.7(L) 11.2 - 15.7 GM/DL 02/13/2025 5:[address] [facility] Hematocrit 32.4(L) 34.1 - 44.9 % 02/13/2025 5:[address] [facility] MCV 97(H) 79 - 95 fL 02/13/2025 5:[address] [facility] MCH 32.0 25.6 - 32.2 pg 02/13/2025 5:[address] [facility] MCHC 33.0 32.2 - 35.5 GM/DL 02/13/2025 5:[address] [facility] RDW 12.9 11.7 - 14.4 % 02/13/2025 5:[address] [facility] Platelets 241 140 - 375 K/CU MM 02/13/2025 5:[address] [facility] MPV 9.7 9.4 - 12.3 fL 02/13/2025 5:[address] [facility] % Neutros 60 34 - 71 % 02/13/2025 5:[address] [facility] % Lymphs 29 19 - 52 % 02/13/2025 5:[address] [facility] % Monos 9 5 - 13 % 02/13/2025 5:[address] [facility] % Eos 2 1 - 6 % 02/13/2025 5:[address] [facility] % Baso 1 0 - 1 % 02/13/2025 5:[address] [facility] NRBC Absolute <0.01 0 - 0.012 K/ul 02/13/2025 5:[address] [facility] # Neutros 4.82 1.56 - 6.13 K/ L 02/13/2025 5:[address] [facility] # Lymphs 2.32 1.18 - 3.74 K/ L 02/13/2025 5:[address] [facility] # Monos 0.70 0.24 - 0.86 K/ L 02/13/2025 5:[address] [facility] # Eos 0.13 0.04 - 0.36 K/ L 02/13/2025 5:[address] [facility] # Baso 0.04 0.01 - 0.08 K/ L 02/13/2025 5:[address] [facility] Immature Granulocytes-Re lative 0.60(H) 0.01 - 0.43 % 02/13/2025 5:[address] [facility] # IG 0.05(H) 0.00 - 0.03 K/uL 02/13/2025 5:[address] [facility] Blood Venipuncture / Unknown 02/13/2025 5:08 AM EDT 02/13/2025 5:[address] [facility] - 02/13/2025 5:59 AM [...] ORDERABLES Final Resul t Performing Organization Address City/[facility] Co de Phone Number [facility] [address] [phone] * Hepatitis B surface antigen (02/13/2025 5:08 AM EDT) Hepatitis B surface antigen Nonreactive Nonreactive 02/13/2025 7:[address] [facility] Blood Venipuncture / Unknown 02/13/2025 5:08 AM EDT 02/13/2025 5:46 AM EDT us Nataliya Cain MD LAB BLOOD ORDERABLES Final Resul t Performing Organization Address [facility]/ZIP Co de Phone Number [facility] [address] [phone] * Vancomycin level, random (02/13/2025 5:08 AM EDT) Vancomycin Rm 18.4 0.0 - 40.0 ug/mL 02/13/2025 6:[address] [facility] Comment: Therapeutic peak: >20 to 40 ug/mL Trough levels: 10 to 20 ug/mL Toxicity: > 80 ug/mL Blood Venipuncture / Unknown 02/13/2025 5:08 AM EDT 02/13/2025 5:46 AM EDT Olegario Varghese PA-C LAB BLOOD ORDERABLES Final R esult [facility] [address] [phone] * (ABNORMAL) Basic Metabolic Panel (02/13/2025 5:08 AM EDT) Only the most recent of3 resultswithin the time period is included. Sodium 135(L) 136 - 145 meq/L 02/13/2025 6:[address] [facility] Potassium 4.3 3.4 - 5.1 meq/L 02/13/2025 6:[address] [facility] CO2 25 22 - 29 meq/L 02/13/2025 6:[address] [facility] Chloride 97(L) 98 - 112 meq/L 02/13/2025 6:[address] [facility] Glucose 276(H) 74 - 100 mg/dL 02/13/2025 6:[address] [facility] BUN 35.2(H) 9.8 - 20.1 mg/dL 02/13/2025 6:[address] [facility] Creatinine 6.77(H) 0.57 - 1.11 mg/dL 02/13/2025 6:[address] [facility] BUN/Creatinine 5(L) 8 - 20 02/13/2025 6:[address] [facility] Calcium 7.3(L) 8.4 - 10.2 mg/dL 02/13/2025 6:[address] [facility] Anion Gap 17(H) 4 - 12 02/13/2025 6:[address] [facility] eGFR (mL/min/1.73m2) 7(L) >=60 mL/min/1.7 3m2 02/13/2025 6:[address] [facility] Osmolality Calc 288.0 mOsm/kg 6:[address] [facility] Blood Venipuncture / Unknown 02/13/2025 5:08 AM EDT 02/13/2025 5:46 AM EDT us Briana Araiza MD LAB BLOOD ORDERABLES Final Resul t [facility] [address] [phone] * (ABNORMAL) C-Reactive Protein (02/11/2025 5:31 AM EDT) Only the most recent of2 resultswithin the time period is included. CRP 11.0(H) 0.0 - 5.0 mg/L 02/11/2025 6:[address] [facility] Blood Venipuncture / Unknown 02/11/2025 5:31 AM EDT 02/11/2025 5:52 AM EDT us Briana Araiza MD LAB BLOOD ORDERABLES Final Resul t [facility] [address] [phone] * Ultrasound hemodialysis access (02/09/2025 9:30 AM EDT) Anatomical Region Laterality Modality Vascular, Abdomen Vascular Ultra sound 02/09/2025 8:47 AM EDT Narrative 02/09/2025 3:06 PM EDT Vascular Upper Extremities Arterial Duplex Procedure Demographics Patient Name KWADWO Norris Age 54 Patient Number [id number] Gender Female Race Unknown Ethnicity Corporate ID [id number] Height 66 Date of 1970 Weight 268 Accession Number [id number] BSA 2.27 m^2 Room Number 400 BMI 43.26 kg/m^2 Referring Physician ERNST Ortiz ANNEMARIE AVILA Physician Virtual Classroom Manager OLIVIA Blount Procedure Type of Study: Extremities [...] Name KWADWO Norris Age 54 Patient Number [id number] Gender Female Race Unknown Ethnicity Corporate ID [id number] Height 66 Date of 1970 Weight 268 Accession Number [id number] BSA 2.27 m^2 Room Number 400 BMI 43.26kg/m^2 Referring Physician ERNST AVILA Physician Virtual Classroom Manager OLIVIA Bluont Procedure Type of Study: Extremities Arteries: Upper [...] 136 - 145 meq/L 02/09/2025 6:09 AM [facility] Potassium 4.0 3.4 - 5.1 meq/L 02/09/2025 6:09 AM [facility] Chloride 100 98 - 112 meq/L 02/09/2025 6:09 AM [facility] CO2 31(H) 22 - 29 meq/L 02/09/2025 6:09 AM [facility] Calcium 9.0 8.4 - 10.2 mg/dL 02/09/2025 6:09 AM [facility] Glucose 197(H) 74 - 100 mg/dL 02/09/2025 6:09 AM [facility] BUN 29.8(H) 9.8 - 20.1 mg/dL 02/09/2025 6:09 AM [facility] Creatinine 4.72(H) 0.57 - 1.11 mg/dL 02/09/2025 6:09 AM [facility] BUN/Creatinine 6(L) 8 - 20 02/09/2025 6:09 AM [facility] eGFR (mL/min/1.73m2) 10(L) >=60 mL/min/1. 73m2 02/09/2025 6:09 AM [facility] Albumin 3.0(L) 3.5 - 5.0 g/dL 02/09/2025 6:09 AM [facility] Alkaline Phosphatase 175(H) 40 - 150 U/L 02/09/2025 6:09 AM [facility] ALT 35(H) <=34 U/L 02/09/2025 6:09 AM [facility] Comment: ALT2 reagent used for testing does not contain P5P supplementation and therefore may miss ALT elevations in patients with B6 deficiency. This population may be as high as 10% in the [place], with risk factors including malabsorption, drug interactions, and alcoholic hepatitis. AST 28 11 - 34 U/L 02/09/2025 6:09 AM [facility] Comment: AST2 reagent used for testing does not contain P5P supplementation and therefore may miss AST elevations in patients with B6 deficiency. This population may be as high as 10% in the [place], with risk factors including malabsorption, drug interactions, and alcoholic hepatitis. Total Bilirubin 0.4 0.2 - 1.2 mg/dL 02/09/2025 6:[address] [facility] Protein, Total 6.6 6.4 - 8.3 g/dL 02/09/2025 6:[address] [facility] Globulin 3.6 2.5 - 4.1 g/dL 02/09/2025 6:[address] [facility] Anion Gap 15(H) 4 - 12 02/09/2025 6:[address] [facility] A/G Ratio 0.8 0.7 - 1.9 02/09/2025 6:[address] [facility] Osmolality Calc 294.7 mOsm/kg 6:[address] [facility] Blood Venipuncture / Unknown 02/09/2025 4:41 AM EDT 02/09/2025 5:46 AM EDT Olegario Varghese PA-C LAB BLOOD ORDERABLES Final R esult [facility] [address] [phone] * (ABNORMAL) Wound Culture + Gram Stain (02/08/2025 11:19 PM EDT) Result Moderate Growth Methicillin resistant Staphylococcus aureus(A) 02/12/2025 8:[address] [facility] Comment:Resistant organism r equires isolation protocol. Result Moderate Growth Staphylococcus epidermidis(A) 02/12/2025 8:[address] [facility] Gram Stain Result No cells seen 02/12/2025 8:[address] [facility] Gram Stain Result Few gram positive cocci in pairs and clusters 02/12/2025 8:[address] [facility] Gram Stain Result Few gram positive cocci 02/12/2025 8:[address] [facility] Wound RIGHT UPPER ARM [...] - GENERAL ORDER EAN Final Result [facility] 1 [place] [address], [facility] [phone] * CT upper extremity without contrast right [...] for add-ons. 02/08/2025 6:[address] [facility] Comment:Auto resulted. Blood Venipuncture / Unknown 02/08/2025 4:17 PM EDT 02/08/2025 4:20 PM EDT Loco Cortes MD LAB BLOOD ORDERABLES Final Res ult [facility] 1 [place] [address], [facility] [phone] * Blue Top Extra Tubes (02/08/2025 4:17 PM EDT) HOLD SPECIMEN (SJ - BKR) Hold for add-ons. 02/08/2025 6:[address] [facility] Comment:Auto resulted. Blood Venipuncture / Unknown 02/08/2025 4:17 PM EDT 02/08/2025 4:20 PM EDT us Loco Cortes MD LAB BLOOD ORDERABLES Final Res ult Performing Organization Address City/[facility]/ZIP Co de Phone Number [facility] [address] [phone] * Blood Culture (02/08/2025 4:17 PM EDT) Only the most recent of4 resultswithin the time period is included. Result No growth in 5 days 02/13/2025 5:[address] [facility] Blood ENTIRE RIGHT UPPER ARM / Unknown Venipuncture / Unknown 02/08/2025 4:17 PM EDT 02/08/2025 4:[address] [facility] - 02/13/2025 5:00 PM EDT Blood volume is not within specification. May compromise patient blood culture results. Result Bryce Ocampo DO MICROBIOLOGY - GENERAL ORDERABLE S Final Result Performing Organization Address [facility] de Phone Number [facility] [address] [place] [address], [facility] [phone] * Lactic Acid with reflex (SJ) (02/08/2025 4:00 PM EDT) Only the most recent of2 resultswithin the time period is included. Lactic Acid Level (mmol/L) 1.7 0.5 - 2.2 mmol/L 02/08/2025 4:[address] [facility] Blood Venipuncture / Unknown 02/08/2025 4:00 PM EDT 02/08/2025 4:20 PM EDT us Yuri Ocampo DO LAB BLOOD ORDERABLES Final Resul t Performing Organization Address [facility] de Phone Number [facility] [address] [phone] * (ABNORMAL) Sedimentation rate (02/08/2025 4:00 PM EDT) Sed Rate 35(H) 0 - 30 mm/HR 02/08/2025 4:[address] [facility] Blood Venipuncture / Unknown 02/08/2025 4:00 PM EDT 02/08/2025 4:20 PM EDT Yuri Ocampo DO LAB BLOOD ORDERABLES Final Resul t Performing Organization Address [facility] Phone Number [facility] [address] [phone] * Magnesium (01/14/2025 6:14 AM EDT) Only the most recent of3 resultswithin the time period is included. Magnesium 1.8 1.6 - 2.6 mg/dL 01/14/2025 6:[address] [facility] Blood Venipuncture / Unknown 01/14/2025 6:14 AM EDT 01/14/2025 6:27 AM EDT us Gabino Esteban MD LAB BLOOD ORDERABLES Final Resul t Performing Organization Address [facility] Co de Phone Number [facility] [address] [phone] * Phosphorus (01/13/2025 9:53 AM EDT) Phosphorus 3.1 2.5 - 4.5 mg/dL 01/13/2025 10:[address] [facility] Blood Venipuncture / Unknown 01/13/2025 9:53 AM EDT 01/13/2025 10:11 AM EDT us Gabino Esteban MD LAB BLOOD ORDERABLES Final Resul t [facility] [address] [phone] * CT ABDOMEN/PELVIS WITHOUT IV CONTRAST Standard [...] QTC Interval 432 ms GE MUSE P Sawyer 54 degrees GE MUSE R AXIS (MCT) 20 degrees GE MUSE T Wave Sawyer 44 degrees GE MUSE [place] Diagnosis Age and gender specific ECG analysis [...] Negative, Invalid 01/11/2025 12:[address] [facility] Nasal Swab (Nasal) 01/11/2025 11:48 AM EDT 01/11/2025 11:[address] [facility] - 01/11/2025 12:40 PM [...] infection. Benedict Fleming MD MICROBIOLOGY - GENERAL [facility] Final Result Performing Organization Address [facility] Co de Phone Number [facility] [address] [phone] * High Sensitivity Troponin I (01/11/2025 11:48 AM EDT) Pathologist [facility] Troponin I High Sensitivity (pg/mL) <5.0 <=14 pg/mL 01/11/2025 12:[address] [facility] Blood Venipuncture / Unknown 01/11/2025 11:48 AM EDT 01/11/2025 11:[address] [facility] - 01/11/2025 12:32 PM EDT Applicable to [facility] only. Effective October 25 the lab will begin using a new chemistry analyzer. HsTroponin methodology, reference ranges and critical values have changed. Benedict Fleming MD LAB BLOOD ORDERABLES Final Result Performing Organization Address [facility] de Phone Number [facility] [address] [phone] * EKG-SCANNED (01/11/2025) Narrative 01/11/2025 Ordered by [...] supine Prep: ChloraPrep Patient monitoring: heart rate, cardiac catheterization technician and continuous pulse ox Block type: supraclavicular [...] POCT , urine (01/10/2025 1:16 PM EDT) [facility] POC, URINE HCG Negative Negative INTERNAL QC (VALID/INVALID ) Valid Kit Lot Number [id number] Expiration Date 2026-05-31 01/10/2025 1:16 PM EDT Pro Barr MD FS_MODEL_IP_POINT OF CARE TEST ENTER/EDIT ORDERABLES Edited Result - Final * (ABNORMAL) Chem8+ POC (01/10/2025 1:13 PM EDT) [facility] POC Sodium 142 138 - 146 mmol/L 01/10/2025 1:[address] [facility] POC Potassium 4.8 3.5 - 4.9 mmol/L 01/10/2025 1:[address] [facility] POC Chloride 97(L) 98 - 109 mmol/L 01/10/2025 1:[address] [facility] POC Glucose 138(H) 70 - 105 mg/dL 01/10/2025 1:[address] [facility] POC BUN 47(H) 8 - 26 mg/dL 01/10/2025 1:[address] [facility] POC Anion Gap 14 10 - 20 mmol/L 01/10/2025 1:[address] [facility] POC IONIZED CALCIUM BENJI 1.18 1.12 - 1.32 mmol/L 01/10/2025 1:[address] [facility] POC CO2 TOTAL BENJI 36(H) 24 - 29 mmol/L 01/10/2025 1:[address] [facility] POC-Creatinine 6.3(H) 0.6 - 1.3 mg/dL 01/10/2025 1:[address] [facility] POC-EGFR 7 mL/min/1.7 3M2 01/10/2025 1:[address] [facility] Comment:Proceed with contras t if eGFR > 45 ml/min/1.73 when performed on the NovaSTAT strip Creatinine meter. POC HEMATOCRIT BENJI 32(L) 38 - 51 %PCV 01/10/2025 1:[address] [facility] POC HEMOGLOBIN BENJI 10.9(L) 12.0 - 17.0 g/dL 01/10/2025 1:[address] [facility] Blood 01/10/2025 1:13 PM EDT 01/10/2025 1:[address] [facility] - 01/10/2025 1:23 PM EDT Drum Sealer ID is - [id number] us Baljinder Sloan MD POINT OF CARE TEST ORDERABLES Fi nal Result [facility] [address] [place] [id number] [phone] * (ABNORMAL) Lipid panel (07/19/2024 9:23 AM EST) Triglycerides 216 0 - 249 mg/dL 07/19/2024 11:00 AM [facility] Cholesterol 99 0 - 199 mg/dL 07/19/2024 11:00 AM [facility] Comment: 200 to 239 mg/dL = Moderate (borderline) >239 mg/dL = High HDL Cholesterol 32(L) >=40 mg/dL 07/19/2024 11:00 AM [facility] Comment: >=60 mg/dL = Desirable <40 mg/dL = Increased Risk All other components are listed individually or are calculations VLDL Cholesterol 43.2(H) 5 - 40 mg/dL 07/19/2024 11:00 AM [facility] Cholesterol/HDL ratio 3.1 0.0 - 3.2 07/19/2024 11:00 AM [facility] LDl/HDL Ratio 1 0 - 4 07/19/2024 11:00 AM [facility] RISK COMP 3 07/19/2024 11:00 AM [facility] LDL Cholesterol, Calculated 24 0 - 99 mg/dL 07/19/2024 11:00 AM [facility] Blood Venipuncture / Unknown 07/19/2024 9:23 AM EST 07/19/2024 10:14 AM EST Marycruz Lam APRN LAB BLOOD ORDERABLES Fi nal Result Performing Organization Address City/State/[facility] Co de Phone Number 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 Call DRAMATIC ARTS HISTORIAN * Full Code Date Activated Date Inactivated Comments 07/19/2024 5:49 AM 07/19/2024 9:51 AM Healthcare Agents on File Name Relationship [facility] Annette Burkett Daughter Healthcare Decision-Maker Elizabeth Anderson Friend First Alternate Healthcare Decision-Maker Care Teams Metal Burnisher Relationship Specialty Start Date End Date Wally Yoo MD [address] [place] [address] PCP - General Family Medicine 01/11/25
[2025-03-16 14:40] VITALS: BP 122/68; PULSE 89; RESP 14; O2SAT 96; BMI 40.8
--- NOTE | 2025-03-16 14:55 | EXP.PAIN.SOA ---
[facility] Disclaimer: The information contained in this section may have been updated after the patient was seen, as this information can be updated by other users. Medical History Menopause Breast cancer screening by mammogram Colon cancer screening colonoscopy 06/2024. Tubular adenoma Cardiac arrest 07/19/24 at [facility] Pneumonia Fistula Carpal tunnel syndrome of left wrist Low back pain Diabetes mellitus Pericardial effusion Allergies Amputation of left lower extremity below knee Amputation toe 4 TOES AMPUTATED ON RIGHT FOOT in 2022 Ovarian cyst Amputation of left lower extremity below knee Surgical History History of colonoscopy with polypectomy June 2024 History of cardiac cath History of amputation of toe complete amputation of all toes on right foot H/O left knee surgery Hx of section History of surgery HEART CATH 2 STENTS PLACED History of cholecystectomy History of esophagogastroduodenoscopy (EGD) History of hip surgery LEFT HIP, 2018 History of left below knee amputation 2019 History of tonsillectomy History of carpal tunnel release History of arthroplasty of right knee History of arthroplasty of left hip Family History Mother Coronary artery disease Father Coronary artery disease Sister Coronary artery disease Other Cancer Diabetes Social History Smoking Status: Never smoker smoking status stop date: 20 quit status: considering quitting second hand exposure: No alcohol intake: never substance use type: denies use current occupational status: other Travel in the last 8 weeks?: None housing: shelter marital status: single number of children: 1 education level: high school diet: diabetic caffeine: No special leslie needs: No do you feel safe at home: Yes PM Subjective & Objective Subjective Subjective:: Patient is a pleasant 54-year-old female who presents today for worsening low back and leg symptoms. She rates her pain today a 10 out of 10. Patient states that she recently was told she had a fracture there in her low back. Patient does state that she still has chronic pain throughout this and goes into her legs with numbness and tingling. She does state the pain interferes with her ability perform activities of daily living such as cooking and cleaning. Patient is interested in any help we may be able to provide. Patient is still a resident in [place] [facility] and does try and do conservative treatment including oral medications, heat and ice, topicals and at home stretching exercise. Patient has been prescribed from our office baclofen 10 mg at bedtime. Her Mauri has been reviewed and is appropriate. Review of Systems: General: No recent weight changes, no fever, no sleep disturbances Respiratory: No cough, no shortness of air, no recurring pulmonary infections Cardiovascular/peripheral vascular: No chest pain, no palpitations, no edema, no shortness of breath Gastrointestinal: No new onset incontinence, normal bowel movements reported Genitourinary: No new onset incontinence Musculoskeletal: Low back pain, leg numbness tingling Psychiatric: [Normal mood/affect] Neurological: [Denies weakness in extremities], [denies balance issues] Pain at rest (0-10 scale): 10 Objective Objective:: Physical Exam: General: Alert and oriented x3, no acute distress, pleasant and cooperative Lungs: Respirations even and unlabored, symmetrical chest expansion Eyes: PERRL Musculoskeletal: Flexion and extension of lumbar [spine] somewhat guarded secondary to pain, [antalgic gait noted] positive right leg Neurological: Speech clear, no gross sensory deficit ADDENDUM: Heat Treating Furnace Tender error in the IMPRESSION portion of the report. It should read - No acute fracture is identified. Authenticated and Electronically Signed by Abbi Burnett MD on [place] -- Addendum Dictated By: Abbi Burnett MD Addendum Signed By: Date/Time: 03/16/25 1145 Addendum Cosigned By: Date/Time: DD/ /27/940 FINAL REPORT TECHNIQUE: Thin section axial images were obtained through the lumbar spine without contrast. Sagittal and coronal reconstruction images were obtained from the axial data. Exam was performed using dose reduction techniques. This study was performed with techniques to keep radiation doses as low as reasonably achievable (ALARA). Individualized dose reduction techniques using automated exposure control or adjustment of mA and/or kV according to the patient's size were employed. CLINICAL HISTORY: low back pain, abnormal lumbar xray COMPARISON: None FINDINGS: There is no acute fracture or acute malalignment of the lumbar spine. Vertebral body height is preserved. There is mild multilevel degenerative disease with disc space narrowing and osteophyte formation. At the L4-5 level, an annular bulge is present. There is moderate to severe central canal stenosis. At the L4-5 level, an annular bulge is present with moderate central canal stenosis and mild to moderate bilateral neural foraminal narrowing. Paraspinal soft tissues are within normal limits. There is no paraspinal mass or fluid collection. IMPRESSION: Acute fracture is identified. Degenerative disc disease, with canal stenosis at the L4-5 and L5-S1 levels as described. Reviewed, Interpreted and Dictated by Abbi Burnett MD Transcribed by Joyce Overton Authenticated and . [facility] Has patient had previous pain injection?: No Conservative treatment options previously tried: Home exercise plan Length of treatment: Longer than 12 weeks Meds Home Medications and Allergies Home Medications ?Medication ?Instructions ?Recorded ?Confirmed ?Type atorvastatin 40 mg tablet 40 mg PO HS Cholesterol #90 tabs 11/25/21 03/16/25 Rx insulin syr/ndl U100 half maged 0.3 #10 ea 09/17/22 03/16/25 Rx mL 31 gauge x 5/16 (BD Insulin Syringe Ultra-Fine (half unit)) pen needle, diabetic 31 gauge x #100 ea 09/17/22 03/16/25 Rx 5/16 (Comfort EZ Pen Portal) blood pressure monitor (Blood #1 ea 02/06/23 03/16/25 Rx Pressure Kit) aspirin 81 mg tablet,delayed 81 mg PO DAILY antiplatelet #90 06/17/23 03/16/25 Rx release tabs acetaminophen 500 mg tablet 500 mg PO Q6H PRN Pain 11/05/23 03/16/25 History famotidine 20 mg tablet 20 mg PO BID 11/05/23 03/16/25 History insulin lispro 100 unit/mL 1 sliding scale dose SQ 11/05/23 03/16/25 History subcutaneous pen USEASDIRECTD sevelamer carbonate 800 mg tablet 800 mg PO TID 11/05/23 03/16/25 History pen needle,diabetic dual safty 30 #100 ea 12/29/23 03/16/25 History gauge x 3/16 (BD AutoShield Duo Pen Needle) prasugrel HCl 10 mg tablet 10 mg PO DAILY #30 tabs 02/11/24 03/16/25 Rx (Effient) carvedilol 12.5 mg tablet 12.5 mg PO BID 02/23/24 03/16/25 History venlafaxine 37.5 mg 37.5 mg PO DAILY 02/23/24 03/16/25 History capsule,extended release 24 hr amlodipine 10 mg tablet 10 mg PO .COMPLEX 03/01/24 03/16/25 History calcium carbonate 1,200 mg (2 x 600 mg calcium 03/15/24 03/16/25 Rx (1,500 mg)) PO DAILY #180 tabs calcitonin (salmon) 200 1 spray intranasal (ALT) DAILY 05/17/24 03/16/25 History unit/actuation nasal spray epoetin gia 20,000 unit/mL 20,000 unit SQ WEEKLY 05/17/24 03/16/25 History injection solution (Procrit) fexofenadine 180 mg tablet 180 mg PO DAILY 05/17/24 03/16/25 History (Allergy Relief (fexofenadine)) polyethylene glycol 3350 17 17 g PO DAILY 05/17/24 03/16/25 History gram/dose oral powder isosorbide mononitrate 30 mg 30 mg PO DAILY 06/14/24 03/16/25 History tablet,extended release 24 hr albuterol sulfate 90 mcg/actuation 2 puff inhalation Q4-6H PRN 09/06/24 03/16/25 Rx aerosol inhaler shortness of breath or wheezing #8.5 grams baclofen 10 mg tablet 5 mg PO HS PRN Muscle Spasm 01/24/25 03/16/25 History diphenhydramine HCl 25 mg tablet 25 mg PO TID PRN Allergy Symptoms 01/24/25 03/16/25 History (Allergy (diphenhydramine)) insulin glargine 100 unit/mL (3 45 unit SQ BID 01/24/25 03/16/25 History mL) subcutaneous pen (Basaglar KwikPen U-100 Insulin) metoclopramide HCl 10 mg tablet 10 mg PO TIDWMEAL 01/24/25 03/16/25 History (Reglan) ondansetron 4 mg disintegrating 4 mg PO Q8H PRN Nausea And Vomiting 01/24/25 03/16/25 History tablet pseudoephedrine HCl 60 mg tablet 60 mg PO Q6H PRN . 01/24/25 03/16/25 History (Sudogest) gabapentin 300 mg capsule 300 mg PO HS #30 caps 02/28/25 03/16/25 Rx tramadol 50 mg tablet 50 mg PO Q12H #60 tabs 02/28/25 03/16/25 Rx New Prescriptions to Start Prescriptions: Allergies Allergy/AdvReac Type Severity Reaction Status Date / Time Sulfa (Sulfonamide Allergy ITCHING, Verified 02/02/25 10:14 Antibiotics) (SULFA BURNING IN (SULFONAMIDE ANTIBIOTICS)) EYES acetaminophen (From Tylox) AdvReac Nausea Verified 02/02/25 10:14 oxycodone (From Tylox) AdvReac Nausea Verified 02/02/25 10:14 Assessment and Plan *Assessment and plan (1) Osteopenia: Status: Acute Category: Medical Code(s): M85.80 - Other specified disorders of bone density and structure, unspecified site (2) Low back pain: Status: Acute Category: Medical Code(s): M54.50 - Low back pain, unspecified (3) Lumbar radiculopathy: Status: Acute Category: Medical Code(s): M54.16 - Radiculopathy, lumbar region (4) Degenerative disc disease: Status: Acute Category: Medical Plan I did review over the patient's latest imaging and the report and did explain to the patient that it was an error in dictation stating that she had a fracture present. Patient did however have significant narrowing at both the L4-L5 and L5-S1 levels. Patient is having worsening pain in her low back with limited range of motion and a positive leg raise. I did discuss with the patient that I do believe she would benefit from a lumbar epidural steroid injection. Risk and benefits were discussed with patient and she would like to proceed forward with this plan of care. Patient is currently on Effient that is written there at [facility] for a history of stent placement. I did nutrition counselor her that we will reach out to them and confirm that she can stop this medication prior to this injection. Patient has had chronic back pain for longer than 6 months. Patient has also continue conservative therapy including oral medication, heat and ice, topicals, at home stretch exercise for longer than 12 weeks. Patient is very limited with her mobility due to having a below the knee amputation on the left side. Patient has not had any history of lumbar epidurals from our office to compare to. Patient will be submitted for a lumbar epidural steroid injection L4-L5 under fluoroscopy. Patient agrees with this plan of care. Patient has been instructed to contact the clinic with any concerns before the next appointment. Dr. Gomes has reviewed this note and agrees with this plan of care. This note was dictated using voice recognition software and make contain errors or omissions. All injections are used with Lidocaine, Bupivacaine and dexamethasone. Occasionally urine drug screen is needed to verify patient's compliance with our office pain contract. This is ordered based off specific treatments related to chronic pain with the potential to abuse certain medications.
== END 2025-03-16 23:59 | disposition home or self-care (01) ==
LOC: SC.PAIN 14:30
PROVIDERS: PCP Family Medicine; Visit Provider Nurse Practitioner Family
DX: M85.80 Other specified disorders of bone density and structure, unspecified site (principal); M51.360 Other intervertebral disc degeneration, lumbar region with discogenic back pain only
CPT/HCPCS: 99212; G0463

== ENCOUNTER 2025-03-20 10:04 | Outpatient (CLI) | payer MEDICARE, MEDICAID, SELFPAY ==
--- OUTSIDE RECORDS SUMMARY | 2025-03-20 10:06 | XMS_ITS | Clinical Summary ---
Author Organization [facility] Address [address] [place] [address] [address] [place] [phone] Phone Care Team Providers Care Day Habilitation Specialist Name Role Phone Unavailable Unavailable Conditions or Problems No information available. Medications No information available. Medications Administered No information available. Allergies, Adverse Reactions, Alerts No information available. Results No information available. Plan of Care No information available. Procedures No information available. Vital Signs No information available. Immunizations No information available. Advance Directives No information available.
--- NOTE | 2025-03-20 10:30 | NM_ITS ---
FINAL REPORT CLINICAL HISTORY: left knee pain, rt knee pain, DM vasculopathy hx of left lower leg amputation below the knee 10:20am 27.9 mci tc mdp FINDINGS: 3-PHASE BONE SCAN COMPARISON: Existing relevant imaging studies: None. PROCEDURE: The patient was injected with 27.9 mCi of technetium 99M MDP. Limited images of the knees were obtained after a three-hour delay. FINDINGS: Angiographic phase: No increased flow visualized. Blood pool phase: No abnormal increased activity. Delayed phase: Mild asymmetric increased activity in the right patella. Left below-knee amputation noted. No other abnormal radiotracer activity identified. IMPRESSION: Mild asymmetric increased activity right patella. Reviewed, Interpreted and Dictated by Pro Guillory MD Transcribed by Marilu King Authenticated and [facility]
[2025-03-20] MEDS: ISOTOPE MDP (BONE);1 DOSE VIAL IV (10:33)
[2025-03-20] MEDS: SODIUM CHLORIDE 0.9% 10ML SYR (RAD ONLY) 10 ML IV (10:33)
== END 2025-03-20 23:59 | disposition home or self-care (01) ==
LOC: RAD 10:05
PROVIDERS: PCP Family Medicine; Visit Provider Nurse Practitioner Family
DX: M25.562 Pain in left knee (principal); E11.59 Type 2 diabetes mellitus with other circulatory complications; I70.209 Unspecified atherosclerosis of native arteries of extremities, unspecified extremity; R93.6 Abnormal findings on diagnostic imaging of limbs; Z89.512 Acquired absence of left leg below knee
CPT/HCPCS: 78315; A9503

== ENCOUNTER 2025-04-06 13:44 | Outpatient (CLI) | payer MEDICARE, MEDICAID, SELFPAY ==
--- OUTSIDE RECORDS SUMMARY | 2025-04-06 13:49 | XMS_ITS | Clinical Summary ---
Author Organization [facility] Address [address] [place] [address] [address] [place] [phone] Phone Care Team Providers Care Solid Propellant Processor Name Role Phone Unavailable Unavailable Conditions or Problems No information available. Medications No information available. Medications Administered No information available. Allergies, Adverse Reactions, Alerts No information available. Results No information available. Plan of Care No information available. Procedures No information available. Vital Signs No information available. Immunizations No information available. Advance Directives No information available.
--- NOTE | 2025-04-06 15:00 | US_ITS ---
PROCEDURE INFORMATION: Exam: US Right Breast, Complete MG Bilateral Screening 3D Mammography Exam date and time: 04/06/2025 2:09 PM Age: 54 years old Clinical indication: Screening examination; Mass, lump, or swelling; Right; Additional info: Right lateral breast lesion TECHNIQUE: Imaging protocol: Complete ultrasound of all four quadrants of the right breast and the retroareolar regions, including ultrasound of the axilla when performed. Bilateral Screening tomosynthesis and 2D mammography including computer-aided detection (CAD) when performed. The patient has limited mobility, these are the best images possible. COMPARISON: MG MM DIG SCREENING MAMM BI W/CAD 04/06/2025 2:07 PM FINDINGS: MAMMOGRAPHY: Breast composition: There are scattered areas of fibroglandular density. Mass: None. Architectural distortion: None. Calcifications: None. Asymmetric density: None. Skin thickening: None. Axillary adenopathy: None. ULTRASOUND: Right solid masses: None. Right cystic masses: None. Right architectural distortion: None. Right acoustical shadowing: None. Right skin thickening: In the area of palpable concern, right breast 10 o'clock axis, 6 cm from the nipple, there is localized skin thickening that measures up to 0.5 cm without a discrete mass or fluid collection. This region measures 2.5 x 0.5 cm overall in size. Right axillary adenopathy: None. Other findings: Limited study secondary to patient mobility. Correlation with a physical exam is important. IMPRESSION: 1. Localized skin thickening at the right breast 10 o'clock axis, 6 cm from the nipple. The findings are more suggestive of a inflammatory, possibly infectious process. Referral to a senior mechanical development engineer is recommended for possible skin biopsy if this area is persistent over time. 2. A six-month follow-up right breast ultrasound is recommended to ensure improvement/resolution of this finding. 3. Further evaluation of a palpable abnormality should be based on clinical grounds regardless of radiographic findings or lack thereof. ASSESSMENT: Screening mammogram BIRADS: BI-RADS Category 1: Negative. Overall BIRADS: BI-RADS Category 3: Probably benign.
== END 2025-04-06 23:59 | disposition home or self-care (01) ==
LOC: RAD 13:46
PROVIDERS: PCP Family Medicine; Visit Provider Nurse Practitioner Family
DX: Z12.31 Encounter for screening mammogram for malignant neoplasm of breast (principal); N63.10 Unspecified lump in the right breast, unspecified quadrant; R92.323 Mammographic fibroglandular density, bilateral breasts; R23.4 Changes in skin texture
CPT/HCPCS: 76641; 77063; 77067

== ENCOUNTER 2025-04-25 07:57 | Day surgery (SDC) | payer MEDICARE, MEDICAID, SELFPAY ==
[2025-04-25 08:20] VITALS: BP 123/63; PULSE 77; RESP 18; O2SAT 95; BMI 42.1
[2025-04-25 08:31] VITALS: BP 146/69; PULSE 87; RESP 18; O2SAT 91
[2025-04-25] MEDS: DEXAMETHASONE 10MG/ML 1ML VIAL 10 MG (08:31)
[2025-04-25 08:33] VITALS: BP 146/69; PULSE 85; RESP 18; O2SAT 94
[2025-04-25 08:50] VITALS: BP 139/65; PULSE 75; RESP 18; O2SAT 98
--- NOTE | 2025-04-25 08:58 | EXP.PAIN.PRO ---
Procedure Date: 04/25/25 Time: 08:20 Anesthesiologist:: Toby Tolbert CRNA Complications:: None Pre-procedure Diagnosis:: Disc lumbar spine multilevels. Lumbar radiculopathy. Lumbar spondylosis. Multilevel lumbar disc bulge. Post-procedure Diagnosis:: Same. Indications for Procedure:: Patient is a pleasant 54-year-old female comes our clinic today for lumbar epidural steroid injection at the L4-5 level. Patient describes low lumbar back pain as constant, dull, aching. She also reports bilateral hip and leg radicular symptoms at times. She rates her pain 6/10. Procedure Details:: Procedure: Lumbar epidural steroid injection under fluoroscopy Informed consent was obtained and the risks and benefits of the procedure were explained to the patient. The patient was taken to the procedure room and noninvasive monitors placed, including noninvasive blood pressure cuff and pulse oximeter. The back was viewed using C-arm Fluoroscopy and prepped using Chloraprep as a cleansing solution and the L4-L5 interspace was palpated. Skin and subcutaneous tissues were anesthetized using lidocaine 1.5% and a 25-gauge needle. After this, an 18-gauge Touhy epidural needle was placed into the L4-L5 interspace and advanced using fluoroscopic guidance and loss of resistance to air until the epidural space was encountered. After confirmation of needle placement in the epidural space, with dye, a solution containing normal saline, 3 mL and dexamethasone 10 mg were incrementally injected into the lumbar epidural space. The patient tolerated the procedure well with no complications. The patient was observed in the Pain Clinic and then discharged home neurologically intact. Plan and Disposition:: Patient was discharged without incident.
[2025-04-25 12:44] LABS: POC Glucose,Bedside 127 gm/dL (70-110)
== END 2025-04-25 08:50 | disposition home or self-care (01) ==
PROVIDERS: PCP Family Medicine; Visit Provider Nurse Anesthetist, Certified Registered
DX: M51.16 Intervertebral disc disorders with radiculopathy, lumbar region (principal); M47.26 Other spondylosis with radiculopathy, lumbar region; E11.51 Type 2 diabetes mellitus with diabetic peripheral angiopathy without gangrene; E11.22 Type 2 diabetes mellitus with diabetic chronic kidney disease; E11.40 Type 2 diabetes mellitus with diabetic neuropathy, unspecified; I13.2 Hypertensive heart and chronic kidney disease with heart failure and with stage 5 chronic kidney disease, or end stage renal disease; N18.6 End stage renal disease; I50.9 Heart failure, unspecified; E78.5 Hyperlipidemia, unspecified; F17.210 Nicotine dependence, cigarettes, uncomplicated; F32.A Depression, unspecified; G43.909 Migraine, unspecified, not intractable, without status migrainosus; K21.9 Gastro-esophageal reflux disease without esophagitis; Z79.4 Long term (current) use of insulin; Z95.5 Presence of coronary angioplasty implant and graft; Z97.5 Presence of (intrauterine) contraceptive device; Z88.2 Allergy status to sulfonamides; Z88.5 Allergy status to narcotic agent; Z88.6 Allergy status to analgesic agent; Z89.512 Acquired absence of left leg below knee; Z89.431 Acquired absence of right foot; Z99.2 Dependence on renal dialysis; Z79.899 Other long term (current) drug therapy
CPT/HCPCS: 62323; 82962; J1100

== ENCOUNTER 2025-04-27 09:00 | Outpatient (CLI) | payer MEDICARE, MEDICAID, SELFPAY ==
--- NOTE | 2025-04-27 09:01 | XR_ITS ---
FINAL REPORT CLINICAL HISTORY: right knee pain FINDINGS: AP, lateral and oblique views of the right knee were obtained. There is no prior exam for comparison. There is no acute osseous abnormality of the right knee. There is degenerative joint disease and small joint effusion. There are metallic foreign bodies in the anterior soft tissues of the distal thigh. IMPRESSION: Degenerative joint disease and small joint effusion. Foreign bodies as above. Reviewed, Interpreted and Dictated by Abbi Burnett MD Transcribed by Francisca Chamorro Authenticated and [facility]
--- OUTSIDE RECORDS SUMMARY | 2025-04-27 09:03 | XMS_ITS | Clinical Summary ---
Author Organization [facility] Address [address] [place] [address] [address] [place] [phone] Phone Care Team Providers Care Advertising Copy Writer Name Role Phone Unavailable Unavailable Conditions or Problems No information available. Medications No information available. Medications Administered No information available. Allergies, Adverse Reactions, Alerts No information available. Results No information available. Plan of Care No information available. Procedures No information available. Vital Signs No information available. Immunizations No information available. Advance Directives No information available.
--- OUTSIDE RECORDS SUMMARY | 2025-04-27 09:04 | XMS_ITS | Clinical Summary ---
[facility] Organization [facility] Address [address] [place] [address] Care Team Providers Care Bone Cooking Operator Name Role Phone Kay Artis AVELINO Primary Care Provider [phone]- [phone] Social History Tobacco Use Types Packs/Day Years Used Date Smoking Tobacco: Never Assessed Abuse Screen Answer Date Recorded Unsafe at Home or Work/School Not on file Feels Threatened by Someone? Not on file 06/2023 Does Anyone Keep You from Co ntacting Others or Doint Things Outside the Home? Not on file 2023 Physical Sign of Abuse Present Not on file 1 Housing Stability Answer Date Recorded Current Living Arrangements Not on file 05/03 Potentially Unsafe Housing Conditions Not on mark e 2023 Family and Community Support Answer Emeterio e Recorded Help with Day-to-Day Activities Not on file 2023 Lonely or Isolated Not on file 2023 Employment Answer Date Recorded Do you want help finding or keeping work or a peter b? Not on file 2023 Disabilities Answer Date Recorded Concentrating, Remembering, or Making Decisions Difficulty Not on file 2023 Doing Errands Independently Difficulty Not on fi le 2023 Education Answer Date Recorded Help with school or training? Not on file Preferred Language Not on file 2023 Comments Unknown Sex and Gender Information Value Date Recorded Sex Assigned at Not on file Legal Sex Female 12:33 PM EDT Gender Identity Not on file Sexual Orientation Not on file Plan of Treatment Health Maintenance Due Date Last Done Comments Annual Gynecologic Pelvic and Breast Exam 1970 TDAP/TD VACCINES (1 - Tdap) 1989 MAMMOGRAM 2010 COLOGUARD 2015 COLON CANCER SCREENING 5 YEAR SIGMOIDOSCOPY 2015 COLONOSCOPY [address] CANCER SCREENING 2015 [address] COLONOGRAPHY 2015 FECAL OCCULT BLOOD TEST 2015 FIT Testing (1 year) 2015 ANNUAL PHYSICAL 03/26/2017 HEPATITIS C SCREENING 03/26/2017 Pneumococcal Vaccine 50+ (1 of 1 - PCV) 2020 ZOSTER VACCINE (1 of 2) 2020 INFLUENZA VACCINE 03/03/2025 Insurance [employer] Care Teams Bone Cooking Operator Relationship Specialty Start Date End Date Kay Artis APRN [address] [place] [address] PCP - General Family Medicine 03/26/17
== END 2025-04-27 23:59 | disposition home or self-care (01) ==
LOC: RAD 09:01
PROVIDERS: PCP Family Medicine; Visit Provider Physician Assistant
DX: M17.11 Unilateral primary osteoarthritis, right knee (principal); M25.461 Effusion, right knee; M79.5 Residual foreign body in soft tissue
CPT/HCPCS: 73562

== ENCOUNTER 2025-04-27 09:56 | Outpatient (RCR) | payer MEDICARE, MEDICAID, SELFPAY | END 2025-04-27 23:59 | disposition home or self-care (01) | LOC: PT 09:56 | PROVIDERS: Visit Provider Physician Assistant | DX: M25.561 Pain in right knee (principal) | CPT/HCPCS: 97760 ==

== ENCOUNTER 2025-06-01 11:51 | Outpatient (CLI) | payer MEDICARE, MEDICAID, SELFPAY ==
--- OUTSIDE RECORDS SUMMARY | 2025-06-01 11:56 | XMS_ITS | Clinical Summary ---
Author Organization [facility] Address [address] [place] [address] [address] [place] [phone] Phone Care Team Providers Care Senior Embedded Software Engineer Name Role Phone Unavailable Unavailable Conditions or Problems No information available. Medications No information available. Medications Administered No information available. Allergies, Adverse Reactions, Alerts No information available. Results No information available. Plan of Care No information available. Procedures No information available. Vital Signs No information available. Immunizations No information available. Advance Directives No information available.
--- OUTSIDE RECORDS SUMMARY | 2025-06-01 11:57 | XMS_ITS | Clinical Summary ---
[facility] Address [address] [place] [address] Care Team Providers Care Entry Level Manufacturing Engineer Name Role Phone Kay Artis AVELINO Primary Care Provider [phone]- [phone] Social History Tobacco Use Types Packs/Day Years [...] of 2) 2020 INFLUENZA VACCINE 03/03/2025 Insurance [employer] Care Teams Entry Level Manufacturing Engineer Relationship Specialty Start Date End Date Kay Artis APRN [address] [place] [address] PCP - General Family Medicine 03/26/17
--- NOTE | 2025-06-01 13:00 | MR_ITS ---
FINAL REPORT CLINICAL HISTORY: Left forearm pain pain radiating from elbow to wrist COMPARISON: None FINDINGS: Multiplanar MR imaging was obtained of the left forearm. Overall images are significantly degraded secondary to patient motion. There is no evidence of marrow edema. No soft tissue inflammatory reaction is identified. The flexor and extensor tendons appear intact. IMPRESSION: No definite abnormality identified on this limited exam. Reviewed, Interpreted and Dictated by Pro Guillory MD Transcribed by Marilu King Authenticated and [facility]
--- NOTE | 2025-06-01 14:00 | MR_ITS ---
FINAL REPORT CLINICAL HISTORY: left elbow pain pain radiating from elbow to wrist COMPARISON: None FINDINGS: Multiplanar MR imaging of the left elbow was performed without contrast. Overall images are significantly degraded secondary to patient motion. The common extensor and common flexor tendons appear intact as best can be determined. The biceps tendon and triceps tendons are intact. There is no evidence of soft tissue inflammation. IMPRESSION: No definite abnormality identified on this limited exam. Reviewed, Interpreted and Dictated by Pro Guillory MD Transcribed by Marilu King Authenticated and [facility]
== END 2025-06-01 23:59 | disposition home or self-care (01) ==
LOC: RAD 11:52
PROVIDERS: PCP Family Medicine; Visit Provider Orthopaedic Surgery
DX: G56.92 Unspecified mononeuropathy of left upper limb (principal); M25.522 Pain in left elbow; M79.632 Pain in left forearm
CPT/HCPCS: 73218; 73221

== ENCOUNTER 2025-07-28 09:27 | Outpatient (CLI) | payer MEDICARE, MEDICAID, SELFPAY ==
--- OUTSIDE RECORDS SUMMARY | 2025-07-28 09:30 | XMS_ITS | Clinical Summary ---
Author Organization [facility] Address [address] [place] [address] [address] [place] [id number] Phone Care Team Providers Care Health Sciences Program Coordinator Name Role Phone Unavailable Unavailable Conditions or Problems No information available. Medications No information available. Medications Administered No information available. Allergies, Adverse Reactions, Alerts No information available. Results No information available. Plan of Care No information available. Procedures No information available. Vital Signs No information available. Immunizations No information available. Advance Directives No information available.
--- OUTSIDE RECORDS SUMMARY | 2025-07-28 09:30 | XMS_ITS | Clinical Summary ---
Author Organization [facility] Address [address] [place] [address] Care Team Providers Care Accounting Advisory Services Manager Name Role Phone Kay Artis AVELINO Primary Care Provider [phone]- [phone] Social History Tobacco Use Types Packs/Day Years [...] Orientation Not on file Plan of Treatment Upcoming Encounters Date Type Department Care Team (Latest Contact Info) Description 07/28/2025 11:30 AM EST Pre-Admission Testing [facility] T [address] [place] [address] 08/04/2025 12:30 PM EST Hospital Encounter [facility] OR [address] [place] [address] Baljinder Sloan MD [address] [place] [address] 08/04/2025 12:30 PM EST - 08/04/2025 2:13 PM EST Surgery [facility] OR [address] [place] [address] Baljinder Sloan MD [address] [place], [place] [id number] UPPER EXTREMITY AV FISTULA CREATION - RIGHT Scheduled Procedures Name Priority Associated Diagnoses Date/Ti me 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 08/04/2025 12:30 PM EST Health Maintenance Due Date Last Done Comments Annual Gynecologic Pelvic and Breast Exam 1970 TDAP/TD VACCINES (1 - Tdap) 1989 MAMMOGRAM 2010 COLOGUARD 2015 COLON CANCER SCREENING 5 YEAR SIGMOIDOSCOPY 2015 COLONOSCOPY 2015 COL[address]ECTAL CANCER SCREENING 2015 CT COLONOGRAPHY 2015 FECAL OCCULT BLOOD TEST 2015 FIT Testing (1 year) 2015 ANNUAL WELLNESS VISIT 03/26/2017 HEPATITIS C SCREENING 03/26/2017 Pneumococcal Vaccine 50+ (1 of 1 - PCV) 2020 ZOSTER VACCINE (1 of 2) 2020 INFLUENZA VACCINE 03/03/2025 Insurance [employer] [facility] MEDICARE A & B Care Teams Accounting Advisory Services Manager Relationship Specialty Start Date End Date Kay Artis APRN [address] [place] [address] PCP - General Family Medicine 03/26/17
[2025-07-28 09:40] LABS: Hematocrit 37.4 % (37.0-47.0); Hemoglobin 12.0 g/dL (12.2-16.2); Immature Granulocytes % 0.8 %; Mean Corpuscular HGB Conc 32.1 g/dL (31.8-35.4); Mean Corpuscular Hemoglobin 31.7 pg (27.0-31.2); Mean Corpuscular Volume 98.9 fl (81-99); Nucleated Red Blood Cells % 0 %; Platelet Count 283 K/mm3 (142-424); Red Blood Count 3.78 M/mm3 (4.20-5.40); Red Cell Distribution Width-SD 45.8 fL; White Blood Count 11.0 K/mm3 (4.8-10.8)
[2025-07-28 10:04] LABS: Albumin Level 3.9 g/dl (3.5-5.0); Chloride 97 mmol/L (98-107); Potassium 4.8 mmoL/L (3.5-5.1); Sodium 140 mmol/L (136-145)
[2025-07-28 10:07] LABS: Alanine Aminotransferase 22 U/L (12-78); Albumin/Globulin Ratio 1.8 (1.1-1.8); Alkaline Phosphatase 166 U/L (38-126); Anion Gap 16.8 mEq/L (5-15); Aspartate Amino Transferase 19 U/L (14-36); Bilirubin,Total 0.6 mg/dl (0.2-1.3); Blood Urea Nitrogen 56 mg/dl (7-17); Carbon Dioxide 31 mmol/L (22.0-30.0); Estimated Glomerular Filt Rate 5 ml/min (>60); GFR (African American) 6 ML/MIN (>60); Globulin 2.2 g/dL (1.3-3.2); Total Protein,Serum 6.1 g/dl (6.3-8.2)
[2025-07-28 10:08] LABS: Calcium 8.9 mg/dl (8.4-10.2); Glucose 151 mg/dl (74-100)
[2025-07-28 11:00] LABS: Creatinine,Serum 8.10 mg/dl (0.52-1.04)
[2025-07-28 11:14] LABS: Hemoglobin A1C 6.7 % (4.0-6.0)
[2025-07-28 11:34] LABS: Cholesterol 84 mg/dl (140-200); HDL Cholesterol 29 mg/dl (40-60); Triglycerides 226 mg/dl (30-150)
== END 2025-07-28 23:59 | disposition home or self-care (01) ==
LOC: LAB.DROPOF 09:27
PROVIDERS: PCP Family Medicine; Visit Provider Family Medicine
DX: I25.9 Chronic ischemic heart disease, unspecified (principal); E11.40 Type 2 diabetes mellitus with diabetic neuropathy, unspecified; N18.6 End stage renal disease; Z99.2 Dependence on renal dialysis
CPT/HCPCS: 36415; 80053; 80061; 83036; 85025